=== PATIENT | male | born 1970 | race African-American/Black ===

== ENCOUNTER 2017-07-06 11:35 | Emergency (ER) | payer MEDICAID, SELFPAY ==
[2017-07-06 11:35] VITALS: BP 179/100; PULSE 83; RESP 24; TEMP 36.4; O2SAT 99; BMI 22.1
[2017-07-06 11:51] LABS: Bedside Glucose 80 mg/dL (70-110)
[2017-07-06] MEDS: Dextrose 50%-Water 25 GM/50 ML DISP.SYRIN IV (12:24)
[2017-07-06] MEDS: Ondansetron 4 MG/2 ML Vial IV (12:24)
[2017-07-06 12:38] LABS: Absolute Lymphocyte Count 0.69 X10^3/ul (0.83-4.51); Absolute Neutrophil Count 6.3 X10^3/uL (2.0-7.7); Basophil# 0.03 X10^3/uL; Basophil% 0.4 % (0-1); Eosinophil# 0.03 X10^3/uL; Eosinophils% 0.4 % (0-5); Hematocrit 42.5 % (40-54); Hemoglobin 13.5 g/dl (13.0-16.5); Lymphocyte # 0.69 X10^3/ul (4.0); Lymphocyte % 9.3 % (19-41); Mean Corp Hgb Conc 31.8 g/gl (32-36); Mean Corpuscular Hgb 22.9 pg (27.0-32.0); Mean Corpuscular Volume 72.2 fL (80-94); Mean Platelet Vol. 10.3 fl (6.2-12.0); Monocyte% 5.4 % (0-10); Neutrophil # 6.26 X10^3/uL (2.7-7.7); Neutrophil % 84.4 % (47-70); Platelet Count 185 K/mm3 (150-450); RBC Distribution Width CV 16.1 % (11.6-14.6); RBC Distribution Width SD 42.1 fl (35.1-43.9); Red Blood Count 5.89 M/mm3 (4.6-6.2); White Blood Count 7.4 K/mm3 (4.4-11.0)
[2017-07-06 12:39] LABS: POSITIVE COUNT NO; POSITIVE DIFFERENTIAL NO; POSITIVE MORPHOLOGY NO
--- NOTE | 2017-07-06 12:44 | ED.DCSUM_ITS ---
- ER Visit Summary Date of Service: 07/06/17 Chief Complaint: Vomiting and syncope History of Present Illness: The patient is a 46 M who states he woke this morning with vomiting. He eventually passed out on the bathroom floor was found by his friend. Friend reportedly gave him some sugar and he is feeling better. He still notes nausea. Blood sugar 87 for EMS. Patient states that he felt fine yesterday. Patient also notes that he feels weak. Physical Examination: Afebrile 179/100 heart rate of 83 respirations are 24 pulse ox is 90% on room air Gen: Well-nourished well-developed patient appears to be shivering patient puts little effort into helping the physical exam. Head: Normocephalic atraumatic Eyes: Perrl EOMI ENT: TMs clear no rhinorrhea moist mucous membranes Neck: Supple no lymphadenopathy no JVD nontender CVS: Regular rate rhythm no murmurs normal S1-S2 Respiratory: No distress clear to auscultation bilaterally chest nontender Abdomen: Soft nontender nondistended normal bowel sounds no masses Back: Nontender Extremity: Nontender no edema Skin: Normal color no rash Neuro: alert orientated ?3 CN II-XII intact normal strength sensation reflexes gait cerebellar Psych: Normal affect normal mood Test Results: [] Emergency Department Course and Treatment: [] Impression: [] This note was generated with [employer] dictation software. It may contain incorrect words, spelling, and punctuation that were not noted in review of the chart prior to signing ED Disposition - Plan for ED Patient: Disposition: Home or Assisted Living Chief Complaint: Nausea/Vomiting Instructions: ED Nausea Vomiting Prescriptions: Ondansetron [Zofran Odt] 4 mg PO Q8H PRN PRN #10 tab PRN Reason: Nausea Referrals: Peter Rosenberg DO [Primary Care Provider] - 3-5 Days if not improving
[2017-07-06 12:56] LABS: ALB/GLOB Ratio 0.8 RATIO (0.9-2.4); AST(SGOT) 30 U/L (15-37); Alanine Aminotransfer ALT/SGPT 24 U/L (12-78); Albumin, Serum 3.5 g/dL (3.4-5.0); Alkaline Phosphatase 119 U/L (45-117); Anion Gap 14 (5-15); BUN 59 mg/dL (7-18); BUN/Creat Ratio 7.9 RATIO (10-20); Calcium,Total 8.6 mg/dL (8.5-10.1); Chloride 102 mmol/L (98-107); Creatinine, Serum 7.46 mg/dL (0.70-1.30); EST Glomerular Filtration Rate 8 mL/min (>60); Est Glom Filt Rate - Afr Amer 10 mL/min (>60); Estimated Creatinine Clearance 13.75 ml/min; Globulin 4.3 g/dL (2.2-4.2); Glucose 75 mg/dL (70-110); Lipase 98 U/L (73-393); Potassium 4.6 mmol/L (3.5-5.1); Protein, Total 7.8 g/dL (6.4-8.2); Sodium Level 141 mmol/L (136-145)
--- NOTE | 2017-07-06 12:57 | ED.RN ---
CREAT 7.[address] BRYANT AWARE
[2017-07-06 13:26] LABS: Bedside Glucose 112 mg/dL (70-110)
[2017-07-06 13:34] VITALS: BP 220/118; PULSE 89; RESP 18; O2SAT 98
[2017-07-06 13:52] VITALS: BP 202/97; PULSE 93; RESP 18; TEMP 36.9
--- NOTE | 2017-07-06 15:01 | ED.RN ---
attempted to call pt's daughter multiple times for ride home. pt calling for ride now.
== END 2017-07-06 15:41 | disposition home or self-care (01) ==
PROVIDERS: Emergency Provider Emergency Medicine; Family Provider Family Medicine; PCP Family Medicine
DX: R55 Syncope and collapse (principal); E11.649 Type 2 diabetes mellitus with hypoglycemia without coma; I12.0 Hypertensive chronic kidney disease with stage 5 chronic kidney disease or end stage renal disease; N18.6 End stage renal disease; E78.00 Pure hypercholesterolemia, unspecified; Z99.2 Dependence on renal dialysis; Z79.4 Long term (current) use of insulin; Z79.899 Other long term (current) drug therapy
CPT/HCPCS: 80053; 82962; 83690; 85025; 96361; 96374; 96375; 99284; J7030; J7040; A4216; J2405

== ENCOUNTER 2017-07-07 09:04 | Emergency (ER) | payer MEDICAID, SELFPAY ==
[2017-07-07 09:06] VITALS: BP 154/94; PULSE 68; RESP 17; TEMP 35.9; O2SAT 98; BMI 20.2
[2017-07-07 09:16] LABS: Bedside Glucose 106 mg/dL (70-110)
--- NOTE | 2017-07-07 10:02 | ED.RN ---
MEAL TRAY ORDERED FOR PT TO INCREASE BLOOD GLUCOSE.
[2017-07-07 10:50] VITALS: PULSE 71; RESP 16
[2017-07-07 10:56] LABS: Bedside Glucose 116 mg/dL (70-110)
--- NOTE | 2017-07-07 10:59 | ED.DCSUM_ITS ---
- ER Visit Summary Date of Service: 07/07/17 Chief Complaint: Low blood sugar History of Present Illness: The patient is a [address] Rosenberg and Dr. Felipe. In the emergency department yesterday for nausea and vomiting. States that those symptoms have resolved. However, he went home last night and went to bed because he was not feeling well. He took 10 units of insulin and did not eat dinner like he usually would. He slept through his appointment for dialysis today. EMS arrival patient's blood sugar was 48. He was given an amp of D50 and he is now back to his baseline. He denies any complaints. Patient reports that he has swelling behind the angle of his right mandible that began quite some time ago. Reports that he has pain in his right mandibular canine that is been present for quite some time as well. He does not have a dentist cc. Physical Examination: Vitals: Stable. Afebrile. Mouth: No trismus. No edema of the floor of the mouth. Pain with percussion of right mandibular canine. This tooth is loose. There is no focal abscess. He is missing all of his premolars and molars and the mandibular area bilaterally. HEENT: He does have an approximately 2 cm enlarged lymph node at the angle of his right mandible. There is no overlying erythema. It is minimally tender. General: A&O x 3. NAD. Cardiovascular exam: Regular rate and rhythm, no murmur, rub or gallop. Respiratory exam: Clear to auscultation bilaterally. No wheezes or stridor. Abdominal exam: Soft, nontender, nondistended, normal bowel sounds. No peritoneal signs. Extremity: No clubbing, cyanosis, or edema. Test Results: Patient had blood work obtained yesterday. This was not repeated. His CBC was marked for segment neutrophils 84 lymphocytes of 9. BMP was marked for BUN of 59 creatinine 7.646. LFTs marked for an alk phos of 119 and globulin of 4.3. Emergency Department Course and Treatment: She ate breakfast here and is resting comfortably. Treatment Plan: Patient was discussed with the dialysis center. He will be sent from here to the dialysis center to have his normal dialysis. He is instructed to keep Keflex following this. Will be placed on Keflex 500 mg p.o. q. after dialysis. Instructed to follow-up Dr. Jones in 1 week if the swollen lymph node has not resolved. I did discuss and the possibility of needing to have a biopsy to make sure that this is not cancer. Return to the emergency department for any worsening symptoms. Disposition: To home in improved and stable condition. Impression:. 1. Hypoglycemia. 2. Insulin-dependent diabetes mellitus. 3. Enlarged lymph node, angle of mandible, on right. This note was generated with [employer] dictation software. It may contain incorrect words, spelling, and punctuation that were not noted in review of the chart prior to signing ED Disposition - Plan for ED Patient: Disposition: Home or Assisted Living Chief Complaint: Hypoglycemia Instructions: ED Cervical Adenitis Abx Tx, ED Diabetes Hypoglycemia Insulin React Prescriptions: Cephalexin [Keflex] 500 mg PO QODAY #10 capsule Referrals: Peter Rosenberg DO [Primary Care Provider] - 1-2 Days if not improving Jenaro Jones MD [STAFF PHYSICIAN] - 1 Week Additional Instructions: Low up with Dr. Jones in 1 week for further evaluation of the swollen lymph node.
[2017-07-07 11:10] VITALS: BP 158/111; PULSE 70; RESP 14; O2SAT 98
--- NOTE | 2017-07-07 11:16 | ED.RN ---
1110-Verbal and written d/c instructions given. All questions answered. Finishing eating prior to leaving ED.
== END 2017-07-07 11:46 | disposition home or self-care (01) ==
PROVIDERS: Emergency Provider Emergency Medicine; Family Provider Family Medicine; PCP Family Medicine
DX: E10.649 Type 1 diabetes mellitus with hypoglycemia without coma (principal); R59.0 Localized enlarged lymph nodes; E78.00 Pure hypercholesterolemia, unspecified; F32.9 Major depressive disorder, single episode, unspecified; I12.0 Hypertensive chronic kidney disease with stage 5 chronic kidney disease or end stage renal disease; N18.6 End stage renal disease; Z99.2 Dependence on renal dialysis; Z79.4 Long term (current) use of insulin; Z79.899 Other long term (current) drug therapy
CPT/HCPCS: 82962; 99284; J7030

== ENCOUNTER 2017-09-18 23:42 | Emergency (ER) | payer MEDICAID, SELFPAY ==
[2017-09-18 23:43] VITALS: BP 157/100; PULSE 81; RESP 18; TEMP 36.4; O2SAT 100; BMI 19.5
--- NOTE | 2017-09-18 23:48 | RAD_ITS ---
STUDY: X-RAY - RIGHT WRIST REASON FOR EXAM: Male, 47 years old. Patient fell. Pain radiating to the arm. TECHNIQUE: 3 view(s) of the wrist were obtained. COMPARISON: None. FINDINGS: There is diffuse demineralization of the osseous structures. Normal radiocarpal articulation. Normal distal radioulnar articulation. There is a sclerotic line in the scaphoid waist but there is no demonstrated definite fracture. Normal carpal articulations. Normal carpometacarpal articulation of the thumb. Normal second through fifth carpometacarpal articulations. Normal visualized metacarpal bones. There are vascular calcifications. RAD/Wrist min 3 Views IMPRESSION: Sclerotic line in the scaphoid waist without demonstrated definite fracture. If symptoms persist, follow-up exams are recommended. Electronically Signed: Ovidio Malcolm MD at 0:19 EDT Tel , Service support ,
--- NOTE | 2017-09-19 00:31 | ED.VISSUMM ---
- ER Visit Summary Date of Service: 09/19/17 Chief Complaint: Wrist injury History of Present Illness: The patient is a 47 M who reportedly fell out at [facility] due to his blood sugar being low. States he bent his right wrist back. He has had pain. Otherwise feeling okay. Physical Examination: Afebrile vital signs are stable tenderness palpation over the medial aspect of the right wrist. There are no breaks in the skin. No malrotation. Her vascular intact distally please see T-sheet for complete details Test Results: X-rays of the wrist did not demonstrate an acute fracture. Emergency Department Course and Treatment: Patient will be placed in a Velcro wrist splint. He will follow-up with his doctor. Will check his blood sugar before. Impression: 1. Right wrist sprain This note was generated with [employer] dictation software. It may contain incorrect words, spelling, and punctuation that were not noted in review of the chart prior to signing ED Disposition - Plan for ED Patient: Disposition: Home or Assisted Living Chief Complaint: Upper Extremity Injury Instructions: ED Sprain Wrist Referrals: Peter Coronado MD [Primary Care Provider] - 10-14 Days if not better
--- NOTE | 2017-09-19 00:36 | ED.DCSUM_ITS ---
- ER Visit Summary Date of Service: 09/19/17 Chief Complaint: Wrist injury History of Present Illness: The patient is a 47 M who reportedly fell out at [facility] due to his blood sugar being low. States he bent his right wrist back. He has had pain. Otherwise feeling okay. Physical Examination: Afebrile vital signs are stable tenderness palpation over the medial aspect of the right wrist. There are no breaks in the skin. No malrotation. Her vascular intact distally please see T-sheet for complete details Test Results: X-rays of the wrist did not demonstrate an acute fracture. Emergency Department Course and Treatment: Patient will be placed in a Velcro wrist splint. He will follow-up with his doctor. Will check his blood sugar before. Impression: 1. Right wrist sprain This note was generated with [employer] dictation software. It may contain incorrect words, spelling, and punctuation that were not noted in review of the chart prior to signing ED Disposition - Plan for ED Patient: Disposition: Home or Assisted Living Chief Complaint: Upper Extremity Injury Instructions: ED Sprain Wrist Referrals: Peter Coronado MD [Primary Care Provider] - 10-14 Days if not better
[2017-09-19 00:51] LABS: Bedside Glucose 138 mg/dL (70-110)
== END 2017-09-19 00:57 | disposition home or self-care (01) ==
LOC: ED 09-19 00:53
PROVIDERS: Emergency Provider Emergency Medicine; Family Provider Family Medicine; PCP Family Medicine
DX: S63.501A Unspecified sprain of right wrist, initial encounter (principal); E10.9 Type 1 diabetes mellitus without complications; I10 Essential (primary) hypertension; E78.00 Pure hypercholesterolemia, unspecified; I73.9 Peripheral vascular disease, unspecified; Z87.891 Personal history of nicotine dependence; Z79.4 Long term (current) use of insulin; Z79.899 Other long term (current) drug therapy; W18.30XA Fall on same level, unspecified, initial encounter; Y93.89 Activity, other specified; Y92.512 Supermarket, store or market as the place of occurrence of the external cause; Y99.8 Other external cause status
CPT/HCPCS: 73110; 82962; 99283

== ENCOUNTER → 2017-09-19 12:36 | Outpatient (CLI) | payer MEDICAID, SELFPAY ==
[2017-09-19 13:29] LABS: Hematocrit 38.9 % (40-54); Hemoglobin 12.4 g/dl (13.0-16.5); Mean Corp Hgb Conc 31.9 g/gl (32-36); Mean Corpuscular Hgb 22.7 pg (27.0-32.0); Mean Corpuscular Volume 71.2 fL (80-94); Mean Platelet Vol. 9.8 fl (6.2-12.0); Platelet Count 122 K/mm3 (150-450); RBC Distribution Width CV 15.4 % (11.6-14.6); Red Blood Count 5.46 M/mm3 (4.6-6.2); White Blood Count 5.3 K/mm3 (4.4-11.0)
[2017-09-19 13:30] LABS: Scan Indicated on CBC? Y/N NO
[2017-09-19 14:06] LABS: Anion Gap 6 (5-15); BUN 17 mg/dL (7-18); BUN/Creat Ratio 3.7 RATIO (10-20); Calcium,Total 7.6 mg/dL (8.5-10.1); Chloride 97 mmol/L (98-107); Creatinine, Serum 4.61 mg/dL (0.70-1.30); EST Glomerular Filtration Rate 15 mL/min (>60); Est Glom Filt Rate - Afr Amer 18 mL/min (>60); Glucose 255 mg/dL (74-106); Potassium 3.7 mmol/L (3.5-5.1); Sodium Level 137 mmol/L (136-145)
== END ==
PROVIDERS: Family Medicine; Family Provider Family Medicine; PCP Family Medicine; Visit Provider Surgery
DX: T82.898A Other specified complication of vascular prosthetic devices, implants and grafts, initial encounter (principal)
CPT/HCPCS: 36415; 80048; 85027

== ENCOUNTER → 2017-09-25 10:32 | Day surgery (SDC) | payer MEDICAID, SELFPAY ==
[2017-09-24 09:03] VITALS: BMI 20.7
--- NOTE | 2017-09-25 12:13 | PCM.OPRPT ---
Problem List (1) Problem with dialysis access Status: Acute Qualifiers: Encounter type: initial encounter Qualified Code(s): T82.898A - Other specified complication of vascular prosthetic devices, implants and grafts, initial encounter Report of Operation Date of Procedure: 09/25/17 Pre-Operative Diagnosis: Problem with dialysis access left forearm radiocephalic arteriovenous fistula with diminished flow Post-Operative Diagnosis: High-grade venous stenosis left proximal fistula and anastomosis and 6 cm more distally. Occlusion left upper arm cephalic vein Surgery/Procedure Performed:: Left upper extremity fistulogram with 5 x 2 conquest angioplasty and 6 x 80 mm lutonix drug coated balloon angioplasty Description of Surgical Findings:: Timeout and informed consent was obtained. 47-year-old gentleman was taken to the special procedures lab. He was placed upon the table. The left extremity sterilely prepped draped. Ultrasound was used to identify the cephalic vein close to the antecubital space. 2% lidocaine was instilled under ultrasound guidance. Under ultrasound guidance micropuncture needle was inserted retrograde with flow. Micropuncture wire inserted. 6 Persian short sheath dilator was inserted. Using 035 angled Glidewire and a 4 Persian glide cath [place] was finally gained to the radial artery distal to the anastomosis. I cannot achieve proximal angulation. There were 2 areas of high-grade venous stenosis. I then performed balloon angioplasty utilizing a 5 x 20 mm conquest balloon. This performed at the anastomosis and within the fistula approximately 6 cm more distally. Follow-up injections demonstrated improvement but far from complete resolution. I then was able to get the guidewire to go to the radial artery proximally. I was able to place a glide catheter and obtained a fistulogram. This demonstrated improvement in the areas of stenosis but lack of resolution. So I then placed a 6 x 80 mm drug-coated balloon. Balloon angioplasty was performed directly at the anastomosis in the very proximal 8 cm of the fistula. Follow-up imaging now demonstrated dramatic improvement. Further images were obtained of the upper arm and central venous outflow. All of this was performed with Isovue contrast. A total of 26 cc was used. The catheter was removed sheath was removed U suture of 4 oh nondisplaced there is a good pulse thrill and bruit at the completion blood loss minimal no apparent complication Images demonstrate a left forearm radiocephalic arteriovenous fistula. There is high-grade venous stenosis over a 1 cm area just at the anastomosis and distally. Then about 6 cm more distal on the fistula is another area of stenosis. Then there is aneurysmal change of the vein. At the antecubital space there is occlusion of the upper arm cephalic vein. Outflow was achieved via median cubital vein over to the basilic vein with good basilic vein and central venous outflow. Subsequent to the angioplasty there is resolution of the proximal fistula venous stenosis. It is of note that the patient received 50 mcg of fentanyl 1 mg of Versed intravenously at the initiation of the procedure Impression Successfully treated left forearm radiocephalic arteriovenous fistula with resolved proximal fistula venous stenosis Anibal Andrews M.D., F.A.C.S. Type of Anesthesia:: Local
== END ==
PROVIDERS: Family Provider Family Medicine; PCP Family Medicine; Visit Provider Surgery
DX: T82.898A Other specified complication of vascular prosthetic devices, implants and grafts, initial encounter (principal); I12.0 Hypertensive chronic kidney disease with stage 5 chronic kidney disease or end stage renal disease; E10.22 Type 1 diabetes mellitus with diabetic chronic kidney disease; N18.6 End stage renal disease; Z99.2 Dependence on renal dialysis; F32.9 Major depressive disorder, single episode, unspecified; E78.2 Mixed hyperlipidemia; D63.1 Anemia in chronic kidney disease; E10.21 Type 1 diabetes mellitus with diabetic nephropathy; E73.9 Lactose intolerance, unspecified; Z87.891 Personal history of nicotine dependence; Z79.4 Long term (current) use of insulin; Z79.899 Other long term (current) drug therapy
CPT/HCPCS: 36902; 76937; 99152; 99153; Q9967; C1725; C1769

== ENCOUNTER 2017-10-24 06:22 | Day surgery (SDC) | payer MEDICAID, SELFPAY ==
[2017-10-24] VITALS (7 sets, daily range): BP systolic 114–183; BP diastolic 84–96; PULSE 63–70; RESP 16–18; TEMP 35.9–36.5; O2SAT 97–99; BMI 19.0
--- NOTE | 2017-10-24 | BON_PTH ---
PATIENT: THOM PASCUAL [place] [facility] [id number] AGE/SX: 47/M ROOM: RE10/24/[address]: Dr. Isaiah Miranda DPM : 1970 BED: DIS: 10/24/2017 SPEC #: [id number] RECD: 10/24/17 09:25 STATUS: BIANKA CHRIS #: [id number] STACIE: 10/24/17 00:[address]: Isaiah Miranda DEPT: SURGICAL PATHOLOGY RECD BY: Wade Ritchie ENTERED: 10/24/17 09:26 SP TYPE: Bone OTHR DR: Dr. Peter Coronado MD Tissues: Bone of foot, NOS Procedures: Decalcification bone/plaque Surgery Specimen Level III HEADER OPERATION: Debridement ulcer including bone, foot PRE-OP DIAGNOSIS: Ulceration right foot, hypertrophic bone TISSUE SUBMITTED: Bone, fifth metatarsal and cuboid, right foot MICROSCOPIC DIAGNOSIS Bone, fifth metatarsal and cuboid, right foot: Pieces of bone and adherent pieces of fibroconnective tissue with reactive changes, negative for acute osteomyelitis. MAURI:doris 10/31/17 MICROSCOPIC DESCRIPTION Slides are reviewed. GROSS DESCRIPTION Received in fixative is one container labeled with the patient's name and designated bone, fifth metatarsal and cuboid, right foot. The specimen consists of multiple pieces of bone measuring in aggregate 6 x 4 x 2 cm. The entire specimen is submitted in five cassettes after decalcification. / MAURI:doris 10/24/17 TC:5 CPT: 68814, 48700
--- NOTE | 2017-10-24 06:30 | EKG12_ITS ---
Test Reason : PRE OP Blood Pressure : / mmHG Vent. Rate : 071 BPM Atrial Rate : 071 BPM P-R Int : 170 ms QRS Dur : 090 ms QT Int : 464 ms P-R-T Axes : 073 035 051 degrees QTc Int : 504 ms Normal sinus rhythm Prominent T wave noted Prolonged QT Abnormal ECG When compared with ECG of 12-APR-2016 05:39, No significant change was found Confirmed by ANDREA MENDEZ, TEODORA ([id number]), supervising film or videotape editor ROMERO AGUIAR ([id number]) on 10/27/2017 3:00:39 PM Referred By: Isaiah Miranda Confirmed By:TEODORA MENDEZ MD
[2017-10-24] MEDS: Ondansetron 4 MG/2 ML Vial ×2 (06:59→07:00)
[2017-10-24 07:00] LABS: Bedside Glucose 66 mg/dL (70-110)
[2017-10-24 07:25] LABS: Bedside Glucose 237 mg/dL (70-110)
--- NOTE | 2017-10-24 07:35 | RAD_ITS ---
STUDY: X-RAY - RIGHT FOOT CLINICAL: Male, 47 years old. Debridement of ulcer TECHNIQUE: Single intraoperative view(s) of the foot. COMPARISON: April 11, 2016 FINDINGS: Intraoperative fluoroscopy utilized for 0 minutes 19 seconds during debridement of wound. Single image demonstrates amputation. There is soft tissue defect. RAD/Foot 2 Views IMPRESSION: Intraoperative fluoroscopy. Electronically Signed: Juan J Haney MD at 11:04 EDT , Service support ,
[2017-10-24] MEDS: Bupivacaine Mpf 0.5% 30 ML VIAL (08:36)
--- NOTE | 2017-10-24 08:51 | PCM.DC.POD ---
Discharge Diet: Light diet - advance as tolerated Discharge Activity: May Not Drive, Use Walker Weight Bearing Status: No weight bearing - No weightbearing right foot Keep extremity elevated above heart level: Right Leg - Keep right foot elevated for at least 50 minutes of every hour Call your doctor if you observe: Fever of 101 or Higher, Shortness of breath, Chest pain, Increased palpitations (irregular heartbeat), Calf discomfort, Uncontrolled pain Cleanse incision/area with: Do not get Incision Wet, Keep Dressing Clean & Dry Allergies/Adverse Reactions: Allergies calcium [From PhosLo] Allergy (Verified 10/20/17 14:11) Hives Medications to take at Discharge Hydralazine HCl 100 mg PO TID 07/06/17 Insulin Detemir [Levemir (BKC)] 10 units SC QHS 07/06/17 Insulin Detemir [Levemir (BKC)] 13 units SC DAILY 07/06/17 Latanoprost 0.005% [Xalatan Opthalmic] 1 drp EACH EYE QHS 07/06/17 Lisinopril [Zestril] 40 mg PO DAILY 07/06/17 Metoprolol Tartrate 25 mg PO QHS 07/06/17 Metoprolol Tartrate 37.5 mg PO DAILY 07/06/17 Ondansetron [Zofran Odt] 4 mg PO Q8H PRN PRN #10 tab 07/06/17 Sevelamer Carbonate [Renvela] 1,600 mg PO TIDCM 07/06/17 Simvastatin 40 mg PO QHS 07/06/17 Timolol [Betimol] 1 drp OP BID 07/06/17 Hydrocodone/Acetaminophen [Vicodin 5-300 mg Tablet] 1 tab PO Q6H PRN PRN 4 Days #20 tab 10/24/17 The following prescriptions were given: Hydrocodone/Acetaminophen [Vicodin 5-300 mg Tablet] 1 tab PO Q6H PRN PRN 4 Days #20 tab PRN Reason: Pain Primary Care Physician: Peter Coronado MD [Primary Care Provider] - Please Follow Up With: Isaiah Miranda DPM When: within 1 week, sooner if needed
--- NOTE | 2017-10-24 08:52 | PCM.OPRPT ---
Report of Operation Date of Procedure: 10/24/17 - Surgeon: Isaiah Miranda DPM Pre-Operative Diagnosis: Ulceration right foot with hypertrophic bone Post-Operative Diagnosis: Same Surgery/Procedure Performed:: Ulcer debridement with debridement of hypertrophic bone right foot Type of Anesthesia:: Local MAC Specimen's removed: Bone from right foot sent to pathology Estimated Blood Loss (mL): 5mL Description of Procedure: Indications: This is a 47 year old gentleman with history of diabetes, peripheral neuropathy, ESRD on dialysis, previous TMA right foot now with chroinc on and off ulceration to the distal lateral foot. Ulcer has healed with offload casting, but recurrent. There is hypertrophic bone to the site, causing a prominence, resulting in increased pressure and ultimate wound break down. Due to the nature of this, we discussed debridement of the ulceration with debridement of the underlying bone. This was discussed with the patient in great detail, reviewed the rationale of this, as well as the possible risks, possible benefits, goals, expectations, and typical healing and post op recovery process. He elected to proceed forward with this. The consent forms were reviewed with him, and he freely signed them. No guarantees were given or implied. Operative Procedure: The patient was brought back to the operating room and was placed on the operating room table in the supine position. He was carefully secured to the operating room table with a safety belt around his waist. A timeout was performed and the patient was identified and the surgical plan was confirmed. The patient received 2 grams of IV ancef for antibiotic prophylaxis. The patient received MAC anesthesia per the anesthesia team. The skin was cleansed with 70% isopropyl alcohol and a local block around the debridement site was performed with 10mL of 0.5% Bupivacaine plain. A well padded pneumatic tourniquet was applied around the right ankle. The right foot was scrubbed, prepped, draped in the usual aseptic fashion. The right foot was elevated for 3 minutes and the right ankle pneumatic tourniquet was inflated to 250mmHg. Again ulceration to the distal lateral foot was noted to be completely covered with hypertrophic tissue and nonviable tissue. The ulceration was debrided using a 15 blade, the underlying hypertrophic prominent bone was debrided using a combination of a bone cutting rongeur as well as a powered sagittal saw. The ulcer measured 0.4cm x 0.4cm and was debrided down to bone as noted above. The remain tissues were healthy, granular, and viable. There was no purulence, no maloder, and no evidence of infection. The resected bone was sent to pathology for further evaluation. Proper resection of bone was confirmed with intra operative fluoroscopy. The site was flushed out with copious amounts of normal saline solution. The tissues were reappoximated using 3-0 Vicryl (subcuaneous) and 3-0 Prolene (skin). A dressing was applied which consisted of betadine soaked adaptic, 4x4 gauze, abd pads, kerlix, and a well padded below the knee splint. The patient tolerated the above procedure well and the anesthesia well with no complications. Post operative orders were placed. Post operative foot xrays were obtained and reviewed which confirmed resection of the hypertrophic bone. Post operative instructions were reviewed. No weightbearing right foot, keep right foot elevated for at least 50 minutes of every hour. Keep the dressing/splint clean, dry and intact. He was dispensed a prescription for Vicodin 5mg/325mg tab - 1 tab PO q 6 hours prn pain. This was okayed by the pharmacist, was checked due to patient being on dialysis. The patient was discharged home, and he will be going right to dialysis at his normal dialysis center here in [facility]. Patient to follow up with me in 1 week, sooner if needed. Grafts/Implants Used: None - Complications None
--- NOTE | 2017-10-24 09:00 | RAD_ITS ---
STUDY: X-RAY - RIGHT FOOT CLINICAL: Male, 47 years old. Status post debridement. TECHNIQUE: 4 view(s) of the foot. COMPARISON: April 11, 2016. FINDINGS: There is demineralization of the rear and midfoot bones. There is amputation of the foot at the proximal metatarsals. There is indistinctness of the residual fifth metatarsal stump. There is soft tissue swelling and injury distally. There is casting material. RAD/Foot min 3 Views IMPRESSION: Status post amputation. Diffuse demineralization. Indistinctness of the fifth metatarsal stump with possible destruction and osteomyelitis. Soft tissue injury Electronically Signed: Juan J Haney MD at 11:06 EDT , Service support ,
[2017-10-24 09:25] LABS: Bedside Glucose 181 mg/dL (70-110)
== END 2017-10-24 09:59 | disposition home or self-care (01) ==
LOC: SDC 06:23 → AC 06:24
PROVIDERS: Family Provider Family Medicine; PCP Family Medicine; Visit Provider Podiatrist
PROC: (CPT 11044; principal; 2017-10-24 07:15)
DX: E11.621 Type 2 diabetes mellitus with foot ulcer (principal); L97.516 Non-pressure chronic ulcer of other part of right foot with bone involvement without evidence of necrosis; I73.9 Peripheral vascular disease, unspecified; I12.0 Hypertensive chronic kidney disease with stage 5 chronic kidney disease or end stage renal disease; E11.22 Type 2 diabetes mellitus with diabetic chronic kidney disease; N18.6 End stage renal disease; E11.40 Type 2 diabetes mellitus with diabetic neuropathy, unspecified; F41.9 Anxiety disorder, unspecified; F32.9 Major depressive disorder, single episode, unspecified; E78.5 Hyperlipidemia, unspecified; D50.9 Iron deficiency anemia, unspecified; Z87.891 Personal history of nicotine dependence; Z89.421 Acquired absence of other right toe(s); Z99.2 Dependence on renal dialysis; Z79.4 Long term (current) use of insulin; Z79.899 Other long term (current) drug therapy
CPT/HCPCS: 11044; 73620; 73630; 76000; 82962; 88304; 88311; 93005; J7120; J2405; J7799

== ENCOUNTER → 2018-01-13 18:29 | Outpatient (CLI) | payer MEDICAID, SELFPAY | PROVIDERS: Family Provider Family Medicine; PCP Family Medicine; Visit Provider Podiatrist | DX: L97.519 Non-pressure chronic ulcer of other part of right foot with unspecified severity (principal) | CPT/HCPCS: 87070; 87077; 87186; 87205 ==

== ENCOUNTER → 2018-04-07 06:43 | Outpatient (CLI) | payer MEDICARE, MEDICAID, SELFPAY ==
--- NOTE | 2018-04-07 06:49 | CT_ITS ---
STUDY: CT RIGHT FOOT REASON FOR EXAM: Right foot ulcer, partial foot amputation. TECHNIQUE: Thin section transaxial imaging of the foot was obtained, with sagittal and coronal reconstructed images. Individualized dose optimization techniques were used for this CT. COMPARISON: Radiographs 10/24/2017. FINDINGS: There is osteopenia. There is osseous destruction of the plantar aspect of the cuboid (sagittal reconstructions 15-18). Normal talus, calcaneus, navicular and cuneiforms. Normal visualized tibiotalar, subtalar, talonavicular, calcaneocuboid, and tarsal articulations. There is amputation at the bases of the metatarsals. There is soft tissue swelling, especially at the plantar aspect of the cuboid. There is vascular calcification. CT/Extremity Lower without Contra IMPRESSION: Osseous destruction of the plantar aspect of the cuboid suggestive of osteomyelitis with adjacent soft tissue swelling at the plantar aspect of the midfoot. Electronically Signed: Michael Kelley MD at 8:22 EDT Tel , Service support ,
== END ==
PROVIDERS: Family Provider Family Medicine; PCP Family Medicine; Referring Provider Podiatrist; Visit Provider Podiatrist
DX: L97.519 Non-pressure chronic ulcer of other part of right foot with unspecified severity (principal); M21.961 Unspecified acquired deformity of right lower leg
CPT/HCPCS: 73700

== ENCOUNTER 2018-05-12 06:01 | Day surgery (SDC) | payer MEDICARE, MEDICAID, SELFPAY ==
[2018-05-12 06:37] VITALS: BP 158/92; PULSE 72; RESP 14; TEMP 36.6; O2SAT 98; BMI 19.1
[2018-05-12 06:50] LABS: Bedside Glucose 118 mg/dL (70-110)
--- NOTE | 2018-05-12 07:30 | RAD_ITS ---
STUDY: X-RAY - RIGHT FOOT CLINICAL: Male, 47 years old. Documentation of fluoroscopic radiation used during orthopedic procedure. TECHNIQUE: 2 view(s) of the foot. COMPARISON: Preoperative radiographs of the right foot dated October 24, 2017. FINDINGS: Total exposure time: 0.14 seconds. Longest single exposure: 0.02 seconds Total DAP (cGy*cm2): 1.5591 Total Air Kerma (mGy): 0.0928 The patient apparently has had amputations of the metatarsals. Please see operative report for additional details. RAD/Foot 2 Views IMPRESSION: Documentation of fluoroscopic radiation use during procedure. Electronically Signed: Shahrzad Caal MD at 11:40 EST , Service support ,
--- NOTE | 2018-05-12 07:30 | BON_PTH ---
PATIENT: THOM PASCUAL LOC: [facility] [place] U#:[id number] AGE/SX: 47/M ROOM: RE05/12/[address]: Dr. Isaiah Miranda DPM : 1970 BED: DIS: 05/12/2018 SPEC #: [id number] RECD: 05/12/18 10:42 STATUS: BIANKA CHRIS #: [id number] STACIE: 05/12/18 07:[address]: Isaiah Miranda DEPT: SURGICAL PATHOLOGY RECD BY: Zhen Simpson ENTERED: 05/12/18 11:56 SP TYPE: Bone OTHR DR: Dr. Peter Coronado MD Tissues: Bone of foot, NOS Procedures: Decalcification bone/plaque Surgery Specimen Level III HEADER OPERATION: Resection of bone, foot PRE-OP DIAGNOSIS: Prominent bone, plantar foot, deformed bone TISSUE SUBMITTED: Bone right foot MICROSCOPIC DIAGNOSIS Bone right foot, resection: Pieces of bone with adherent pieces of dense fibroconnective tissue with reactive changes. MAURI:doris 05/15/18 MICROSCOPIC DESCRIPTION Slides are reviewed. GROSS DESCRIPTION Received in fixative is one container labeled with the patient's name and designated bone right foot. The specimen consists of multiple variable sized fragments of bone that in aggregate measure 5 x 3 x 0.3 cm. The entire specimen is submitted in two cassettes after decalcification. / MAURI:doris 05/12/18 TC:5 CPT: 00722, 21034
[2018-05-12] MEDS: Cefazolin 2 GM in 0.9% Normal Saline 100 ML IV (07:39)
[2018-05-12] MEDS: Bupivacaine Mpf 0.5% 30 ML VIAL (08:56)
--- NOTE | 2018-05-12 09:21 | DCINST_ITS ---
Discharge Diet: Light diet - advance as tolerated Discharge Activity: May Not Drive Weight Bearing Status: No weight bearing - Strict nonweightbearing right foot at all times Keep extremity elevated above heart level: Right Leg - Keep right foot elevated with pillows Call your doctor if your incision/area has: Continuous Slow Oozing, Sudden Increased Bleeding, Increased Pain/ Swelling, Foul Smelling Discharge Call your doctor if you observe: Fever of 101 or Higher, Coldness, Increased Pain, Shortness of breath, Chest pain, Increased palpitations (irregular heartbeat), Calf discomfort, Uncontrolled pain Cleanse incision/area with: Do not get Incision Wet, Keep Dressing Clean & Dry Allergies/Adverse Reactions: Allergies calcium [From PhosLo] Allergy (Verified 10/20/17 14:11) Hives Medications to take at Discharge Hydralazine HCl 100 mg PO TID 07/06/17 Insulin Detemir [Levemir (BKC)] 10 units SC QHS 07/06/17 Insulin Detemir [Levemir (BKC)] 13 units SC DAILY 07/06/17 Latanoprost 0.005% [Xalatan Opthalmic] 1 drp EACH EYE QHS 07/06/17 Lisinopril [Zestril] 40 mg PO DAILY 07/06/17 Metoprolol Tartrate 25 mg PO QHS 07/06/17 Metoprolol Tartrate 37.5 mg PO DAILY 07/06/17 Sevelamer Carbonate [Renvela] 1,600 mg PO TIDCM 07/06/17 Simvastatin 40 mg PO QHS 07/06/17 Timolol [Betimol] 1 drp OP BID 07/06/17 Cephalexin [Keflex] 500 mg PO X1 #7 cap 05/12/18 The following prescriptions were given: Cephalexin [Keflex] 500 mg PO X1 #7 cap Primary Care Physician: Peetr Coronado MD [Primary Care Provider] - Test Results: Test results from this visit will be discussed in further detail at your follow- up appointment, if applicable. Please Follow Up With: Isaiah Miranda DPM When: within 1 week, sooner if needed
[2018-05-12 09:22] VITALS: BP 150/90; BP 158/92; PULSE 72; RESP 16; TEMP 36.2; O2SAT 93
--- NOTE | 2018-05-12 09:23 | OP.PCM_ITS ---
Report of Operation Date of Procedure: 05/12/18 Pre-Operative Diagnosis: Chronic recurrent ulceration plantar right foot. Exostosis/bone prominence plantar right foot. 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 Bennett Type of Anesthesia:: General Specimen's removed: Resected bone from right foot sent to pathology Estimated Blood Loss (mL): 5mL Description of Procedure: Indications: This is a 47 year old gentleman with history of diabetes, peripheral neuropathy, ESRD on dialysis, previous TMA right foot now with chronic on and off ulceration to the plantar foot. Ulcer has healed with offload casting. There is prominent bone to the site resulting in increased pressure and ultimate wound break down. Due to the nature of this, we discussed resection of the underlying prominent bone. This was discussed with the patient in great detail, reviewed the rationale of this, as well as the possible risks, possible benefits, goals, expectations, and typical healing and post op recovery process. He elected to proceed forward with this. The consent forms were reviewed with him, and he freely signed them. No guarantees were given or implied. Operative Procedure: The patient was brought back to the operating room and was placed on the operating room table in the supine position. He was carefully secured to the operating room table with a safety belt around his waist. A timeout was performed and the patient was identified and the surgical plan was confirmed. The patient received 2 grams of IV ancef for antibiotic prophylaxis. The patient received general anesthesia per the anesthesia team. A well padded pneumatic tourniquet was applied around the right ankle. The right foot was scrubbed, prepped, draped in the usual aseptic fashion. The right foot was elevated for 3 minutes and the right ankle pneumatic tourniquet was inflated to 250mmHg. An incision was made to the lateral foot using a 15 scalpel blade at the level of the prominent bone. Careful disection was completed down to the prominent bone. The underlying hypertrophic prominent bone was debrided using a combination of a bone cutting rongeur as well as a powered sagittal saw. The excised bone was sent to pathology. The bone was hard, white, viable with no evidence of infection. The remain tissues were healthy, granular, and viable. There was no purulence, no maloder, and no evidence of infection. Proper resection of bone was confirmed via palpation and with intra operative fluoroscopy. The plantar aspect of the foot was smooth with no abrnomal prominences. The site was flushed out with copious amounts of normal saline solution. The tissues were reapproximated using 3-0 Vicryl (subcutaneous) and 3-0 Nylon (skin). A dressing was applied which consisted of betadine soaked adaptic, 4x4 gauze, kerlix, webril, [place] bandage and a well padded below the knee fiberglass cast. The patient tolerated the above procedure well and the anesthesia well with no complications. Post operative orders were placed. Post operative foot xrays were ordered. Post operative instructions were reviewed. No weightbearing right foot, keep right foot elevated for at least 50 minutes of every hour. Keep the dressing/splint clean, dry and intact. He was dispensed a prescription for Keflex 500mg after dialysis was prescribed to help prevent infection as he is at high risk due to diabetes and neuropathy. The patient was discharged home. Patient to follow up with me in 1 week, sooner if needed. - Complications None
[2018-05-12 09:30] VITALS: BP 158/92; BP 176/102; PULSE 71; RESP 16; O2SAT 93
[2018-05-12 09:45] VITALS: BP 158/92; BP 195/107; PULSE 73; RESP 16; O2SAT 98
[2018-05-12 10:00] VITALS: BP 158/92; BP 199/111; PULSE 73; RESP 16; TEMP 36.1; O2SAT 98
[2018-05-12 10:04] LABS: Hemoglobin A1c 6.4 % (4.2-6.3)
[2018-05-12 10:25] VITALS: BP 158/92
== END 2018-05-12 11:02 | disposition home or self-care (01) ==
LOC: SDC 06:01 → AC 06:02
PROVIDERS: Anesthesiology; Family Provider Family Medicine; PCP Family Medicine; Referring Provider Podiatrist; Visit Provider Podiatrist
PROC: (CPT 28122; principal; 2018-05-12 07:15)
DX: E11.621 Type 2 diabetes mellitus with foot ulcer (principal); L97.519 Non-pressure chronic ulcer of other part of right foot with unspecified severity; E11.42 Type 2 diabetes mellitus with diabetic polyneuropathy; I12.0 Hypertensive chronic kidney disease with stage 5 chronic kidney disease or end stage renal disease; E10.22 Type 1 diabetes mellitus with diabetic chronic kidney disease; N18.6 End stage renal disease; Z99.2 Dependence on renal dialysis; E78.5 Hyperlipidemia, unspecified; I73.9 Peripheral vascular disease, unspecified; D50.9 Iron deficiency anemia, unspecified; F32.9 Major depressive disorder, single episode, unspecified; Z89.421 Acquired absence of other right toe(s); Z89.411 Acquired absence of right great toe; Z79.4 Long term (current) use of insulin; Z79.899 Other long term (current) drug therapy; Z87.891 Personal history of nicotine dependence
CPT/HCPCS: 28122; 36415; 73620; 76000; 82962; 83036; 88304; 88305; 88311; J7040; J7120

== ENCOUNTER 2018-10-18 10:56 | Inpatient (IN) | payer MEDICARE, MEDICAID, SELFPAY ==
[2018-10-18] VITALS (14 sets, daily range): BP systolic 151–249; BP diastolic 75–124; PULSE 86–97; RESP 15–20; TEMP 36.6–37.1; O2SAT 93–100; BMI 20.5; BMI 17.8
[2018-10-18 11:15] LABS: Bedside Glucose 370 mg/dL (70-110)
--- NOTE | 2018-10-18 11:17 | RAD_ITS ---
STUDY: X-RAY CHEST REASON FOR EXAM: Male, 48 years old. Generalized illness started yesterday, cough, sore throat, congestion. TECHNIQUE: PA and lateral chest COMPARISON: 12/27/2015 chest x-ray. CT abdomen and pelvis 04/15/2015. FINDINGS: There is generalized pulmonary hyperlucency and hyperinflation with flattening of hemidiaphragms in a pattern suggesting possible COPD/emphysema. Correlate smoking history. The lungs are otherwise clear. Normal cardiomediastinal silhouette, palmira and pleural margins. No acute osseous or upper abdominal process. RAD/Chest PA and Lateral IMPRESSION: No acute cardiopulmonary process. Electronically Signed: Rafita Onofre MD at 12:21 EDT Tel , Service support ,
--- NOTE | 2018-10-18 11:17 | EKG12_ITS ---
Test Reason : SOB Blood Pressure : / mmHG Vent. Rate : 086 BPM Atrial Rate : 086 BPM P-R Int : 172 ms QRS Dur : 080 ms QT Int : 436 ms P-R-T Axes : 081 067 062 degrees QTc Int : 521 ms Normal sinus rhythm Minimal voltage criteria for LVH, may be normal variant Septal infarct , age undetermined Prolonged QT Abnormal ECG Confirmed by KAILA MENDEZ, PRAVEENA ([id number]), clinical editor ALISON RHODES ([id number]) on 10/21/2018 1:45:50 PM Referred By: CHANDA Confirmed By:PRAVEENA BRIGHT MD
--- NOTE | 2018-10-18 11:18 | ED.VISSUMM ---
- ER Visit Summary Date of Service: 10/18/18 Chief Complaint: Feels unwell History of Present Illness: The patient is a 48 M with history of type 1 diabetes and end-stage renal disease on hemodialysis who presents because he does not feel well since yesterday. Patient states he ate dinner last night but did not take his insulin. After dinner he began having a cough, shaking and vomiting. He vomits anytime he tries to drink water or eat anything. He has had sweats, abdominal pain and generalized weakness. No known fever, chest pain, shortness of breath. Patient is Friday hemodialysis. He has not missed any dialysis. He does not remember if he took any of his insulin today. Patient gets a cast put on his right lower extremity weekly by Dr. Miranda while he is waiting for a brace for his partial foot amputation. He had history of infection in that foot but states the wound has since healed up. Physical Examination: Vital signs: afebrile, hemodynamically stable, no hypoxia on room air General: well nourished, well developed, in no distress, shaky Skin: warm, moist, no rash, no pallor HEENT: normocephalic and atraumatic; PERRL, EOMI, moist mucous membranes Cardiovascular: regular rate and rhythm without murmurs, no peripheral edema, 2+ pulses and radial pulses in left lower extremity Respiratory: No increased work of breathing, lungs are clear to auscultation bilaterally, no rales, rhonchi or wheezing Abdominal: Abdomen is soft, diffusely tender with normoactive bowel sounds, no guarding or rebound, no masses MSK: Moves all extremities, no deformities, normal strength, right lower extremity has cast below the knee Neuro: Awake and alert, oriented ?4. No facial droop, sensation and motor function intact and symmetric Test Results: Abnormal Lab Results 10/18/18 10/18/18 10/18/18 11:08 11:35 11:35 WBC 4.8 RBC 5.46 Hgb 12.4 L Hct 37.9 L MCV 69.4 L MCH 22.7 L MCHC 32.7 RDW 15.4 H RDW Differential 39.3 Plt Count 117 L MPV 10.3 Immature Gran % (Auto) 0.200 Neut % (Auto) 83.1 H Lymph % (Auto) 9.8 L [place] % (Auto) 6.7 Eos % (Auto) 0.0 Baso % (Auto) 0.2 Absolute Neuts (auto) 4.0 Absolute Lymphs (auto) 0.47 L Total Counted Not Reportable APTT Specimen Type Sample Site VBG pH VBG pO2 VBG O2 Sat (Calc) VBG O2 Content VBG Base Excess POC Mix VBG pCO2 Pt Tmp O2 Delivery Device Blood Gas Notified Whom Blood Gas Notified Time Sodium 139 Potassium 3.8 Chloride 97 L Carbon Dioxide 29.0 Anion Gap 13 BUN 60 H Creatinine 9.47 H* Estim Creat Clear Calc 9.58 Est GFR (MDRD) Af Amer 8 L Est GFR (MDRD) Non-Af 6 L BUN/Creatinine Ratio 6.3 L Glucose 349 H Lactic Acid Calcium 8.7 Phosphorus 3.2 Magnesium 3.2 H Total Bilirubin Direct Bilirubin AST ALT Alkaline Phosphatase Troponin I 1.840 H* Total Protein Albumin Globulin Acetone Level POC Glucose 370 H 10/18/18 10/18/18 10/18/18 11:35 11:35 11:35 WBC RBC Hgb Hct MCV MCH MCHC RDW RDW Differential Plt Count MPV Immature Gran % (Auto) Neut % (Auto) Lymph % (Auto) [place] % (Auto) Eos % (Auto) Baso % (Auto) Absolute Neuts (auto) Absolute Lymphs (auto) Total Counted APTT Specimen Type Sample Site VBG pH VBG pO2 VBG O2 Sat (Calc) VBG O2 Content VBG Base Excess POC Mix VBG pCO2 Pt Tmp O2 Delivery Device Blood Gas Notified Whom Blood Gas Notified Time Sodium Potassium Chloride Carbon Dioxide Anion Gap BUN Creatinine Estim Creat Clear Calc Est GFR (MDRD) Af Amer Est GFR (MDRD) Non-Af BUN/Creatinine Ratio Glucose Lactic Acid 3.8 H Calcium Phosphorus Magnesium Total Bilirubin 0.60 Direct Bilirubin 0.15 AST 25 ALT 20 Alkaline Phosphatase 132 H Troponin I Total Protein 8.6 H Albumin 4.4 Globulin 4.2 Acetone Level NEGATIVE POC Glucose 10/18/18 10/18/18 11:35 11:40 WBC RBC Hgb Hct MCV MCH MCHC RDW RDW Differential Plt Count MPV Immature Gran % (Auto) Neut % (Auto) Lymph % (Auto) [place] % (Auto) Eos % (Auto) Baso % (Auto) Absolute Neuts (auto) Absolute Lymphs (auto) Total Counted APTT 30.3 Specimen Type BLAKE Sample Site OTHER VBG pH 7.52 H VBG pO2 23 L VBG O2 Sat (Calc) 49 L VBG O2 Content 31 VBG Base Excess 7 H POC Mix VBG pCO2 Pt Tmp 37.3 L O2 Delivery Device Room Air Blood Gas Notified Whom ED Blood Gas Notified Time 1139 Sodium Potassium Chloride Carbon Dioxide Anion Gap BUN Creatinine Estim Creat Clear Calc Est GFR (MDRD) Af Amer Est GFR (MDRD) Non-Af BUN/Creatinine Ratio Glucose Lactic Acid Calcium Phosphorus Magnesium Total Bilirubin Direct Bilirubin AST ALT Alkaline Phosphatase Troponin I Total Protein Albumin Globulin Acetone Level POC Glucose Clinical Impression(s) from Imaging Studies Chest X-Ray 10/18/18 11:17 IMPRESSION: No acute cardiopulmonary process. Electronically Signed: Rafita Onofre MD at 12:21 EDT Tel , Service support , Abdomen/Pelvis CT 10/18/18 13:27 IMPRESSION: Prominent aortoiliac and proximal femoral atherosclerosis. Coronary atherosclerosis. Hepatomegaly. No acute abdominopelvic process is otherwise evident. Electronically Signed: Rafita Onofre MD at 14:24 EDT Tel , Service support , Medications Given Heparin Sodium (Porcine) (Heparin Na) 0 unit IV UD PRN; Protocol Heparin Sodium/Dextrose () 25,000 units in 250 mls @ 11 mls/hr IV .[id number] [facility]; Protocol Last Admin: 10/18/18 14:21 Dose: 11 mls/hr Discontinued Medications Aspirin (Aspirin, Baby) 324 mg PO X1 ONE Stop: 10/18/18 13:26 Last Admin: 10/18/18 14:28 Dose: 324 mg Clopidogrel Bisulfate (Plavix) 300 mg PO X1 ONE Stop: 10/18/18 13:26 Last Admin: 10/18/18 14:29 Dose: 300 mg Heparin Sodium (Porcine) (Heparin Na) 5,000 unit IV BOLUS ONE Stop: 10/18/18 13:36 Last Admin: 10/18/18 14:20 Dose: 5,000 unit Sodium Chloride () 500 mls @ 250 mls/hr IV .Q2H ONE Stop: 10/18/18 13:16 Last Admin: 10/18/18 11:42 Dose: 250 mls/hr Insulin Human Lispro (Humalog Kwikpen (Bkc)) 10 unit SC X1 ONE Stop: 10/18/18 12:45 Last Admin: 10/18/18 12:48 Dose: 10 units Labetalol HCl (Trandate) 10 mg IV X1 ONE Stop: 10/18/18 12:41 Last Admin: 10/18/18 12:52 Dose: 10 mg Labetalol HCl (Trandate) 20 mg IV X1 ONE Stop: 10/18/18 13:27 Last Admin: 10/18/18 13:39 Dose: 20 mg Metoclopramide HCl (Reglan) 10 mg IV X1 ONE Stop: 10/18/18 13:27 Last Admin: 10/18/18 13:39 Dose: 10 mg Morphine Sulfate () 4 mg IV X1 ONE Stop: 10/18/18 11:19 Last Admin: 10/18/18 11:43 Dose: 4 mg Ondansetron HCl (Zofran) 4 mg IV X1 ONE Stop: 10/18/18 11:19 Last Admin: 10/18/18 11:42 Dose: 4 mg Emergency Department Course and Treatment: Patient presents for nausea and vomiting since yesterday and generally feeling unwell. Patient has been unable to take his medications, including his blood pressure medicines. He was hypoglycemic at initial presentation. Work-up was performed for DKA. EKG showed sinus rhythm with peaked T waves in V3 and V4, unchanged from prior EKGs. Chest x-ray showed no acute process, including no fluid overload. Patient had no leukocytosis. Creatinine was elevated, as expected in this end-stage renal patient. Troponin was elevated at 1.8. Patient has no history of elevated troponins with his renal disease. Ketones negative. pH was 7.5, no low bicarb, and no anion gap, thus patient's work-up is not consistent with DKA. He was given gentle fluids and Zofran for symptomatic relief. Patient was given labetalol for his significant hypertension. CT abdomen pelvis showed no acute findings. Patient was discussed with Dr. Mcghee because of the elevated troponin, and there was concern that patient may be having an anginal equivalent with his vomiting and nausea since no alternative was noted on his work-up. Dr. Mcghee recommended patient be started on Plavix, heparin and aspirin and admitted for further chest pain work-up. Patient was discussed with Dr. Gant and admitted for further management. Patient did have return of his nausea and was given Reglan for additional symptomatic control. Patient received subcu insulin for his hyperglycemia. Critical care time of 35 minutes for initial evaluation and coordination of care, reevaluations, interpretation of labs, EKG, blood gas, consultation with specialist, discussion with hospitalist, and documentation. Treatment Plan: [] Disposition: [] Impression: Elevated troponin, anginal equivalent, uncontrolled hypertension, end-stage renal disease on hemodialysis, hyperglycemia This note was generated with [employer] dictation software. It may contain incorrect words, spelling, and punctuation that were not noted in review of the chart prior to signing ED Disposition - Plan for ED Patient: Disposition: Acute Care Hospital [facility]
--- NOTE | 2018-10-18 11:21 | ED.DCSUM_ITS ---
- ER Visit Summary Date of Service: 10/18/18 Chief Complaint: Feels unwell History of Present Illness: The patient is a 48 M with history of type 1 diabetes and end-stage renal disease on hemodialysis who presents because he does not feel well since yesterday. Patient states he ate dinner last night but did not take his insulin. After dinner he began having a cough, shaking and vomiting. He vomits anytime he tries to drink water or eat anything. He has had sweats, abdominal pain and generalized weakness. No known fever, chest pain, shortness of breath. Patient is Friday hemodialysis. He has not missed any dialysis. He does not remember if he took any of his insulin today. Patient gets a cast put on his right lower extremity weekly by Dr. Miranda while he is waiting for a brace for his partial foot amputation. He had history of infection in that foot but states the wound has since healed up. Physical Examination: Vital signs: afebrile, hemodynamically stable, no hypoxia on room air General: well nourished, well developed, in no distress, shaky Skin: warm, moist, no rash, no pallor HEENT: normocephalic and atraumatic; PERRL, EOMI, moist mucous membranes Cardiovascular: regular rate and rhythm without murmurs, no peripheral edema, 2+ pulses and radial pulses in left lower extremity Respiratory: No increased work of breathing, lungs are clear to auscultation bilaterally, no rales, rhonchi or wheezing Abdominal: Abdomen is soft, diffusely tender with normoactive bowel sounds, no guarding or rebound, no masses MSK: Moves all extremities, no deformities, normal strength, right lower extremity has cast below the knee Neuro: Awake and alert, oriented ?4. No facial droop, sensation and motor function intact and symmetric Test Results: Abnormal Lab Results 10/18/18 10/18/18 10/18/18 11:08 11:35 11:35 WBC 4.8 RBC 5.46 Hgb 12.4 L Hct 37.9 L MCV 69.4 L MCH 22.7 L MCHC 32.7 RDW 15.4 H RDW Differential 39.3 Plt Count 117 L MPV 10.3 Immature Gran % (Auto) 0.200 Neut % (Auto) 83.1 H Lymph % (Auto) 9.8 L [place] % (Auto) 6.7 Eos % (Auto) 0.0 Baso % (Auto) 0.2 Absolute Neuts (auto) 4.0 Absolute Lymphs (auto) 0.47 L Total Counted Not Reportable APTT Specimen Type Sample Site VBG pH VBG pO2 VBG O2 Sat (Calc) VBG O2 Content VBG Base Excess POC Mix VBG pCO2 Pt Tmp O2 Delivery Device Blood Gas Notified Whom Blood Gas Notified Time Sodium 139 Potassium 3.8 Chloride 97 L Carbon Dioxide 29.0 Anion Gap 13 BUN 60 H Creatinine 9.47 H* Estim Creat Clear Calc 9.58 Est GFR (MDRD) Af Amer 8 L Est GFR (MDRD) Non-Af 6 L BUN/Creatinine Ratio 6.3 L Glucose 349 H Lactic Acid Calcium 8.7 Phosphorus 3.2 Magnesium 3.2 H Total Bilirubin Direct Bilirubin AST ALT Alkaline Phosphatase Troponin I 1.840 H* Total Protein Albumin Globulin Acetone Level POC Glucose 370 H 10/18/18 10/18/18 10/18/18 11:35 11:35 11:35 WBC RBC Hgb Hct MCV MCH MCHC RDW RDW Differential Plt Count MPV Immature Gran % (Auto) Neut % (Auto) Lymph % (Auto) [place] % (Auto) Eos % (Auto) Baso % (Auto) Absolute Neuts (auto) Absolute Lymphs (auto) Total Counted APTT Specimen Type Sample Site VBG pH VBG pO2 VBG O2 Sat (Calc) VBG O2 Content VBG Base Excess POC Mix VBG pCO2 Pt Tmp O2 Delivery Device Blood Gas Notified Whom Blood Gas Notified Time Sodium Potassium Chloride Carbon Dioxide Anion Gap BUN Creatinine Estim Creat Clear Calc Est GFR (MDRD) Af Amer Est GFR (MDRD) Non-Af BUN/Creatinine Ratio Glucose Lactic Acid 3.8 H Calcium Phosphorus Magnesium Total Bilirubin 0.60 Direct Bilirubin 0.15 AST 25 ALT 20 Alkaline Phosphatase 132 H Troponin I Total Protein 8.6 H Albumin 4.4 Globulin 4.2 Acetone Level NEGATIVE POC Glucose 10/18/18 10/18/18 11:35 11:40 WBC RBC Hgb Hct MCV MCH MCHC RDW RDW Differential Plt Count MPV Immature Gran % (Auto) Neut % (Auto) Lymph % (Auto) [place] % (Auto) Eos % (Auto) Baso % (Auto) Absolute Neuts (auto) Absolute Lymphs (auto) Total Counted APTT 30.3 Specimen Type BLAKE Sample Site OTHER VBG pH 7.52 H VBG pO2 23 L VBG O2 Sat (Calc) 49 L VBG O2 Content 31 VBG Base Excess 7 H POC Mix VBG pCO2 Pt Tmp 37.3 L O2 Delivery Device Room Air Blood Gas Notified Whom ED Blood Gas Notified Time 1139 Sodium Potassium Chloride Carbon Dioxide Anion Gap BUN Creatinine Estim Creat Clear Calc Est GFR (MDRD) Af Amer Est GFR (MDRD) Non-Af BUN/Creatinine Ratio Glucose Lactic Acid Calcium Phosphorus Magnesium Total Bilirubin Direct Bilirubin AST ALT Alkaline Phosphatase Troponin I Total Protein Albumin Globulin Acetone Level POC Glucose Clinical Impression(s) from Imaging Studies Chest X-Ray 10/18/18 11:17 IMPRESSION: No acute cardiopulmonary process. Electronically Signed: Rafita Onofre MD at 12:21 EDT Tel , Service support , Abdomen/Pelvis CT 10/18/18 13:27 IMPRESSION: Prominent aortoiliac and proximal femoral atherosclerosis. Coronary atherosclerosis. Hepatomegaly. No acute abdominopelvic process is otherwise evident. Electronically Signed: Rafita Onofre MD at 14:24 EDT Tel , Service support , Medications Given Heparin Sodium (Porcine) (Heparin Na) 0 unit IV UD PRN; Protocol Heparin Sodium/Dextrose () 25,000 units in 250 mls @ 11 mls/hr IV .[id number] [facility]; Protocol Last Admin: 10/18/18 14:21 Dose: 11 mls/hr Discontinued Medications Aspirin (Aspirin, Baby) 324 mg PO X1 ONE Stop: 10/18/18 13:26 Last Admin: 10/18/18 14:28 Dose: 324 mg Clopidogrel Bisulfate (Plavix) 300 mg PO X1 ONE Stop: 10/18/18 13:26 Last Admin: 10/18/18 14:29 Dose: 300 mg Heparin Sodium (Porcine) (Heparin Na) 5,000 unit IV BOLUS ONE Stop: 10/18/18 13:36 Last Admin: 10/18/18 14:20 Dose: 5,000 unit Sodium Chloride () 500 mls @ 250 mls/hr IV .Q2H ONE Stop: 10/18/18 13:16 Last Admin: 10/18/18 11:42 Dose: 250 mls/hr Insulin Human Lispro (Humalog Kwikpen (Bkc)) 10 unit SC X1 ONE Stop: 10/18/18 12:45 Last Admin: 10/18/18 12:48 Dose: 10 units Labetalol HCl (Trandate) 10 mg IV X1 ONE Stop: 10/18/18 12:41 Last Admin: 10/18/18 12:52 Dose: 10 mg Labetalol HCl (Trandate) 20 mg IV X1 ONE Stop: 10/18/18 13:27 Last Admin: 10/18/18 13:39 Dose: 20 mg Metoclopramide HCl (Reglan) 10 mg IV X1 ONE Stop: 10/18/18 13:27 Last Admin: 10/18/18 13:39 Dose: 10 mg Morphine Sulfate () 4 mg IV X1 ONE Stop: 10/18/18 11:19 Last Admin: 10/18/18 11:43 Dose: 4 mg Ondansetron HCl (Zofran) 4 mg IV X1 ONE Stop: 10/18/18 11:19 Last Admin: 10/18/18 11:42 Dose: 4 mg Emergency Department Course and Treatment: Patient presents for nausea and vomiting since yesterday and generally feeling unwell. Patient has been unable to take his medications, including his blood pressure medicines. He was hypoglycemic at initial presentation. Work-up was performed for DKA. EKG showed sinus rhythm with peaked T waves in V3 and V4, unchanged from prior EKGs. Chest x-ray showed no acute process, including no fluid overload. Patient had no leukocytosis. Creatinine was elevated, as expected in this end-stage renal patient. Troponin was elevated at 1.8. Patient has no history of elevated troponins with his renal disease. Ketones negative. pH was 7.5, no low bicarb, and no anion gap, thus patient's work-up is not consistent with DKA. He was given gentle fluids and Zofran for symptomatic relief. Patient was given labetalol for his significant hypertension. CT abdomen pelvis showed no acute findings. Patient was discussed with Dr. Mcghee because of the elevated trop onin, and there was concern that patient may be having an anginal equivalent with his vomiting and nausea since no alternative was noted on his work-up. Dr. Mcghee recommended patient be started on Plavix, heparin and aspirin and admitted for further chest pain work-up. Patient was discussed with Dr. Gant and admitted for further management. Patient did have return of his nausea and was given Reglan for additional symptomatic control. Patient received subcu insulin for his hyperglycemia. Critical care time of 35 minutes for initial evaluation and coordination of care, reevaluations, interpretation of labs, EKG, blood gas, consultation with specialist, discussion with hospitalist, and documentation. Treatment Plan: [] Disposition: [] Impression: Elevated troponin, anginal equivalent, uncontrolled hypertension, end-stage renal disease on hemodialysis, hyperglycemia This note was generated with [employer] dictation software. It may contain incorrect words, spelling, and punctuation that were not noted in review of the chart prior to signing ED Disposition - Plan for ED Patient: Disposition: Acute Care Hospital [facility]
[2018-10-18] MEDS: Ondansetron 4 MG/2 ML Vial IV (11:42)
[2018-10-18] MEDS: Morphine 4 MG/ML Syringe IV (11:43)
[2018-10-18 11:45] LABS: Blood Gas Specimen Type VEN; O2 Delivery Device Room Air; SITE OTHER; Time Given 1139; VBG BASE EXCESS 7 mmol/L (-1.0-3.5); VBG Bicarbonate 30 mmol/L (22-26); VBG Oxygen Content 31 mmol/L (23-33); VBG PO2 23 mmHg (25-40); VBG SO2 49 % (50-70); VBG pCO2 37.3 mmHg (41-51); VBG pH 7.52 (7.32-7.42)
[2018-10-18 11:48] LABS: Absolute Lymphocyte Count 0.47 X10^3/ul (0.83-4.51); Basophil# 0.01 X10^3/uL; Basophil% 0.2 % (0-1); Hematocrit 37.9 % (40-54); Hemoglobin 12.4 g/dl (13.0-16.5); Lymphocyte # 0.47 X10^3/ul (4.0); Lymphocyte % 9.8 % (19-41); Mean Corp Hgb Conc 32.7 g/gl (32-36); Mean Corpuscular Hgb 22.7 pg (27.0-32.0); Mean Corpuscular Volume 69.4 fL (80-94); Mean Platelet Vol. 10.3 fl (6.2-12.0); Monocyte# 0.32 X10^3/uL; Monocyte% 6.7 % (0-10); Neutrophil # 3.98 X10^3/uL (2.7-7.7); Neutrophil % 83.1 % (47-70); Platelet Count 117 K/mm3 (150-450); RBC Distribution Width CV 15.4 % (11.6-14.6); RBC Distribution Width SD 39.3 fl (35.1-43.9); Red Blood Count 5.46 M/mm3 (4.6-6.2); White Blood Count 4.8 K/mm3 (4.4-11.0)
[2018-10-18 11:49] LABS: Differential Indicated SCAN CRITERIA MET; POSITIVE COUNT NO; POSITIVE DIFFERENTIAL YES; POSITIVE MORPHOLOGY NO
[2018-10-18 12:11] LABS: Anion Gap 13 (5-15); BUN 60 mg/dL (7-18); BUN/Creat Ratio 6.3 RATIO (10-20); Calcium,Total 8.7 mg/dL (8.5-10.1); Chloride 97 mmol/L (98-107); Creatinine, Serum 9.47 mg/dL (0.70-1.30); EST Glomerular Filtration Rate 6 mL/min (>60); Est Glom Filt Rate - Afr Amer 8 mL/min (>60); Estimated Creatinine Clearance 9.58 ml/min; Glucose 349 mg/dL (74-106); Lactic Acid 3.8 mmol/L (0.4-2.0); Magnesium 3.2 mg/dL (1.6-2.6); Phosphorus 3.2 mg/dL (2.5-4.9); Potassium 3.8 mmol/L (3.5-5.1); Sodium Level 139 mmol/L (136-145)
--- NOTE | 2018-10-18 12:12 | NURSING ---
CRITICAL LABDS RELAYED TO PHYSICIAN
[2018-10-18] MEDS: Insulin Lispro 100 UNIT/ML INSULN.PEN 10 UNIT SC (12:48)
--- NOTE | 2018-10-18 13:27 | CT_ITS ---
STUDY: CT ABDOMEN AND PELVIS WITHOUT CONTRAST REASON FOR EXAM: Male, 48 years old. Nausea, vomiting, sore throat, congestion, history of end-stage renal disease on dialysis. RADIATION DOSAGE (If Supplied By Facility): CTDIvol = ( 6.04 ) mGy, DLP = ( 299 ) mGycm TECHNIQUE: Transaxial images were obtained from the dome of the diaphragm to the symphysis pubis without oral contrast, and without intravenous contrast. Sagittal and coronal images were reconstructed. Individualized dose optimization techniques were used for this CT. COMPARISON: CT abdomen and pelvis 04/15/2015 FINDINGS: Body wall soft tissues: No acute process. Osseous structures: No acute process. Inferior chest: There is coronary atherosclerosis visible in the distal LAD and distal RCA. No cardiomegaly or pericardial effusion. Clear lung bases. Hepatobiliary: Hepatomegaly, craniocaudal right liver 21.3 cm. Unremarkable gallbladder and biliary tree. Pancreas: No acute process. Spleen: Normal. Adrenal glands: Normal. Urogenital: Normal kidneys, collecting systems, ureters and mild circumferential thickening of wall the urinary bladder associated with mild prostatomegaly and likely reflecting detrusor muscle hypertrophy. Pelvic floor and sidewalls and retroperitoneum: No mass or adenopathy. Vasculature: No acute process. Prominent circumference of calcification of the wall the abdominal aorta, iliac arteries, proximal femoral arteries. Stomach: No acute process. Small bowel and mesentery: No acute process. Large bowel: Normal appendix. Unremarkable large bowel and rectum. Free fluid or free air: None. CT/Abdomen/Pelvis without Cont IMPRESSION: Prominent aortoiliac and proximal femoral atherosclerosis. Coronary atherosclerosis. Hepatomegaly. No acute abdominopelvic process is otherwise evident. Electronically Signed: Rafita Onofre MD at 14:24 EDT Tel , Service support ,
[2018-10-18] MEDS: Metoclopramide 10 MG/2 ML Vial IV (13:39)
[2018-10-18 13:41] LABS: Partial Thromboplast Time 30.3 Seconds (24.1-36.2)
[2018-10-18 13:54] LABS: AST(SGOT) 25 U/L (15-37); Alanine Aminotransfer ALT/SGPT 20 U/L (16-61); Albumin, Serum 4.4 g/dL (3.2-5.0); Alkaline Phosphatase 132 U/L (45-117); Bilirubin, Direct 0.15 mg/dL (0.00-0.30); Globulin 4.2 g/dL (2.2-4.2); Protein, Total 8.6 g/dL (6.4-8.2)
[2018-10-18] MEDS: Heparin Injection (Vial) 5,000 UNIT/ML VIAL 5000 UNIT IV (14:20)
[2018-10-18] MEDS: HEPARIN/D5w 25,000 UNITS 25,000 UNITS/250 ML IV.SOLN. 11 UNITS IV (14:21)
[2018-10-18] MEDS: Aspirin 81 MG TAB.CHEW 324 MG PO (14:28)
[2018-10-18] MEDS: Clopidogrel Bisulfate 300 MG Tablet PO (14:29)
--- NOTE | 2018-10-18 14:57 | NURSING ---
DR NANCY ARMAS
--- NOTE | 2018-10-18 15:01 | NURSING ---
DR CRUZ IN ER
--- NOTE | 2018-10-18 15:01 | NURSING ---
PCU NANCY ELEVATED TROP, ANGINAL EQUIVALENT, UNCONTROLLED HTN, HYPERGLYCEMIA
--- NOTE | 2018-10-18 15:21 | PCM.HP.STD ---
Problem List (1) NSTEMI (non-ST elevated myocardial infarction) Status: Acute History of Present Illness Date of Admission: 10/18/18 Chief Complaint: nausea and vomiting. The patient is a 48 year old M presents with nausea and vomiting since yesterday. Presented to the ER and was found to have a troponin of 1.84. Dr. Mcghee was notified and recommended medical mgmt and plan for heart cath on Friday. Patient denies any chest pain nor any shortness of breath. Has had a heart attack previously, but his symptoms were different than those. [] Past Medical History Past Medical History (Chronic Problems): Chronic Problems (Last Reviewed 09/11/17 @ 08:41 by Yani Gan) Chronic kidney disease (Chronic) stage 3 Depression (Chronic) Hyperlipidemia (Chronic) Delayed wound healing (Chronic) Ulcer of right foot with fat layer exposed (Chronic) History of iron deficiency (Chronic) Anemia due to chronic kidney disease (Chronic) HTN (hypertension) (Chronic) Hypomagnesemia (Chronic) Diabetes mellitus type 1 (Chronic) ESRD (end stage renal disease) on dialysis (Chronic) Diabetic neuropathy (Chronic) 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 Miranda Peripheral vascular disease (Chronic) Glaucoma (Chronic) Diabetes mellitus with neuropathy (Chronic) Microcytic anemia (Chronic) persists despite iron supplementation, possible alpha thalasemia Benign essential hypertension (Chronic) Medical History: Medical History (Last Reviewed 10/18/18 @ 15:24 by Jenaro Gant DO) Chronic kidney disease (Chronic) N18.9 stage 3 Depression (Chronic) F32.9 Hyperlipidemia (Chronic) E78.5 Malnutrition (Acute) E46 Delayed wound healing (Chronic) T14.8 Ulcer of right foot with fat layer exposed (Chronic) L97.512 History of iron deficiency (Chronic) Z86.39 Anemia due to chronic kidney disease (Chronic) N18.9, D63.1 HTN (hypertension) (Chronic) I10 Hypomagnesemia (Chronic) E83.42 Diabetic foot infection (Acute) E11.69, L08.9 superficial R foot at the incision site for the R TMA Diabetes mellitus type 1 (Chronic) ESRD (end stage renal disease) on dialysis (Chronic) N18.6, Z99.2 Diabetic neuropathy (Chronic) E11.40 Hyponatremia (Acute) E87.1 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) E10.29 Acute on chronic anemia (Acute) Cellulitis of right foot (Acute) L03.115 Peripheral vascular disease (Chronic) I73.9 Glaucoma (Chronic) H40.9 Diabetes mellitus with neuropathy (Chronic) E11.40 Microcytic anemia (Chronic) D50.9 persists despite iron supplementation, possible alpha thalasemia Benign essential hypertension (Chronic) I10 Allergies calcium [From PhosLo] Allergy (Verified 10/18/18 10:59) Hives Home Medications: Ambulatory Orders Medication Instructions Recorded Hydralazine HCl 100 mg PO TID 07/06/17 Insulin Detemir [Levemir (BKC)] 10 units SC QHS 07/06/17 Insulin Detemir [Levemir (BKC)] 13 units SC DAILY 07/06/17 Latanoprost 0.005% [Xalatan 1 drp EACH EYE QHS 07/06/17 Opthalmic] Lisinopril [Zestril] 40 mg PO DAILY 07/06/17 Metoprolol Tartrate 25 mg PO QHS 07/06/17 Metoprolol Tartrate 37.5 mg PO DAILY 07/06/17 Sevelamer Carbonate [Renvela] 1,600 mg PO TIDCM 07/06/17 Simvastatin 40 mg PO QHS 07/06/17 Minoxidil [Loniten] 2.5 mg PO DAILY 10/18/18 Surgical History: Surgical History (Last Reviewed 10/18/18 @ 15:24 by Jenaro Gant DO) Status post transmetatarsal amputation of right foot (Chronic) Z89.431 12/27 Dr. Miranda Presence of surgically created primary arteriovenous shunt for hemodialysis Z99.2 LUE Status post peripheral artery angioplasty Z98.62 Surgical History: - - transmetatarsal amputation right forefoot December 2015, right great toe amputation Feb 2014. LUE fistula Smoking Status: Never smoker Tobacco Use: Non-smoker - *Family History Maternal Family History: Family History (Last Reviewed 10/18/18 @ 15:25 by Jenaro Gant DO) Sister Heart disease Uncle Colon cancer History Items: Diabetes, No pertinent history Paternal Family History: Family History (Last Reviewed 10/18/18 @ 15:25 by Jenaro Gant DO) Sister Heart disease Uncle Colon cancer History Items: Diabetes, No pertinent history Review of Systems Constitutional: Reports: Malaise. Denies: Anorexia, Chills, Fever Eyes: Denies: Blurred vision, Double vision HEENT: Denies: Head Aches, Sinus Congestion, Sinus Drainage Cardiovascular: Denies: Chest Pain, Palpitations Respiratory: Denies: Cough, Shortness of breath at rest, Sputum production Gastrointestinal: Reports: Abdominal Pain, Nausea, Vomiting. Denies: Diarrhea Genitourinary: Reports: - - no urine output. Denies: Dysuria Musculoskeletal: Denies: Joint Pain, Joint Tenderness Skin: Denies: Rash, Wounds Neurological: Denies: Numbness, Tingling, Focal weakness Psychiatric: Denies: Anxiety, Depression Endocrine: Denies: Change in Body Habitus, Heat/ Cold Intolerance Hematologic/ Lymphatic: Denies: Easy Bruising, Easy Bleeding, Hx of blood clot Comment: A 10 point review of systems were negative except as mentioned in the history of present illness and the other review of systems. VTE Information - Inpt Only VTE Present on Admission: No VTE Pharm Prophylaxis ordered?: Yes Patient Problems: Active and Suspected Problems (Last Reviewed 09/11/17 @ 08:41 by Yani Gan) NSTEMI (non-ST elevated myocardial infarction) (Acute) - Physical Exam General: Alert, No apparent distress, Well developed, Well nourished HEENT: Atraumatic, PERRLA, EOMI, Normocephalic Oral: Moist Mucosa, No Gingival or Mucosal Lesions/ Ulcerations Neck: No Nodes, Thyroid Normal Size and Texture Lungs: Clear to auscultation, Normal air movement, No rhonchi, No wheeze Cardiovascular: Regular rate, Regular Rhythm, Normal S1, Normal S2, No Ectopic Activity Abdomen: Bowel Sounds Present, Soft, Non Tender, Non-Distended, No Hepato-splenomegaly Extremities: No edema, No Calf Tenderness, - - fistula in LUE, cast on right LE. Skin: No rashes, No breakdown Musculoskeletal: No Tenderness to Palpation of Joints or Extremities, No Muscle Wasting Neurological: Neuro grossly intact, Muscle tone normal, Coordination normal Psych/Mental Status: Normal Affect, Appropriate Vital Signs Temp Pulse Resp BP Pulse Ox 36.9 C 93 16 155/101 H 97 10/18/18 15:07 10/18/18 15:07 10/18/18 15:07 10/18/18 15:07 10/18/18 15:07 Oxygen Delivery Method Room Air Weight: 72.575 kg Body Mass Index (BMI) 20.5 Finger Stick Blood Glucose 370 Laboratory Tests Past 24 Hrs 10/18/18 10/18/18 10/18/18 11:35 11:35 11:35 WBC 4.8 RBC 5.46 Hgb 12.4 L Hct 37.9 L MCV 69.4 L MCH 22.7 L MCHC 32.7 RDW 15.4 H RDW Differential 39.3 Plt Count 117 L MPV 10.3 Immature Gran % (Auto) 0.200 Neut % (Auto) 83.1 H Lymph % (Auto) 9.8 L [place] % (Auto) 6.7 Eos % (Auto) 0.0 Baso % (Auto) 0.2 Absolute Neuts (auto) 4.0 Absolute Lymphs (auto) 0.47 L Total Counted Not Reportable APTT Specimen Type Sample Site VBG pH VBG pO2 VBG O2 Sat (Calc) VBG O2 Content VBG Base Excess POC Mix VBG pCO2 Pt Tmp O2 Delivery Device Blood Gas Notified Whom Blood Gas Notified Time Sodium 139 Potassium 3.8 Chloride 97 L Carbon Dioxide 29.0 Anion Gap 13 BUN 60 H Creatinine 9.47 H* Estim Creat Clear Calc 9.58 Est GFR (MDRD) Af Amer 8 L Est GFR (MDRD) Non-Af 6 L BUN/Creatinine Ratio 6.3 L Glucose 349 H Lactic Acid Calcium 8.7 Phosphorus 3.2 Magnesium 3.2 H Total Bilirubin Direct Bilirubin AST ALT Alkaline Phosphatase Troponin I 1.840 H* Total Protein Albumin Globulin Acetone Level NEGATIVE 10/18/18 10/18/18 10/18/18 11:35 11:35 11:35 WBC RBC Hgb Hct MCV MCH MCHC RDW RDW Differential Plt Count MPV Immature Gran % (Auto) Neut % (Auto) Lymph % (Auto) [place] % (Auto) Eos % (Auto) Baso % (Auto) Absolute Neuts (auto) Absolute Lymphs (auto) Total Counted APTT 30.3 Specimen Type Sample Site VBG pH VBG pO2 VBG O2 Sat (Calc) VBG O2 Content VBG Base Excess POC Mix VBG pCO2 Pt Tmp O2 Delivery Device Blood Gas Notified Whom Blood Gas Notified Time Sodium Potassium Chloride Carbon Dioxide Anion Gap BUN Creatinine Estim Creat Clear Calc Est GFR (MDRD) Af Amer Est GFR (MDRD) Non-Af BUN/Creatinine Ratio Glucose Lactic Acid 3.8 H Calcium Phosphorus Magnesium Total Bilirubin 0.60 Direct Bilirubin 0.15 AST 25 ALT 20 Alkaline Phosphatase 132 H Troponin I Total Protein 8.6 H Albumin 4.4 Globulin 4.2 Acetone Level 10/18/18 11:40 WBC RBC Hgb Hct MCV MCH MCHC RDW RDW Differential Plt Count MPV Immature Gran % (Auto) Neut % (Auto) Lymph % (Auto) [place] % (Auto) Eos % (Auto) Baso % (Auto) Absolute Neuts (auto) Absolute Lymphs (auto) Total Counted APTT Specimen Type BLAKE Sample Site OTHER VBG pH 7.52 H VBG pO2 23 L VBG O2 Sat (Calc) 49 L VBG O2 Content 31 VBG Base Excess 7 H POC Mix VBG pCO2 Pt Tmp 37.3 L O2 Delivery Device Room Air Blood Gas Notified Whom ED MD Blood Gas Notified Time 1139 Sodium Potassium Chloride Carbon Dioxide Anion Gap BUN Creatinine Estim Creat Clear Calc Est GFR (MDRD) Af Amer Est GFR (MDRD) Non-Af BUN/Creatinine Ratio Glucose Lactic Acid Calcium Phosphorus Magnesium Total Bilirubin Direct Bilirubin AST ALT Alkaline Phosphatase Troponin I Total Protein Albumin Globulin Acetone Level POC Glucose 10/18/18 11:08 POC Glucose 370 H Assessment/Plan All Active Problems (Last Reviewed 09/11/17 @ 08:41 by Yani Gan) Problem with dialysis access (Acute) NSTEMI (non-ST elevated myocardial infarction) (Acute) Malnutrition (Acute) Diabetic foot infection (Acute) Hyponatremia (Acute) Acute on chronic anemia (Acute) Cellulitis of right foot (Acute) Amputated great toe of right foot (Resolved) Hammer toe of right foot (Resolved) Malnutrition (Resolved) Right forefoot osteomyelitis (Resolved) 1. NSTEMI medical mgmt with heparin gtt, ASA, plavix, statin Dr. Mcghee notified, and tentative plan for LHC on 10/19/18 currently symptom free troponin maybe skewed due to ESRD 2. Nausea and vomiting suspect related to #1 PRN Zofran 3. DM1: continue Lantus add SSI 4. ESRD: on HD QMWF, states that he has been compliant with his HD consult nephrology to resume HD Ideally, if the patient has a heart cath tomorrow, for the patient to have HD afterwards 5. VTE prophylaxis: not indicated as currently on a heparin gtt. 6. Right diabetic foot infection: s/p resection of prominent deformed bone on right foot still has cast on, but full weight-bearing (according to the patient) follow up with Dr. Miranda Code Visit Inpatient E&M: 93991 Init Hosp L3
--- NOTE | 2018-10-18 15:25 | HP.PCM_ITS ---
Problem List (1) NSTEMI (non-ST elevated myocardial infarction) Status: Acute History of Present Illness Date of Admission: 10/18/18 Chief Complaint: nausea and vomiting. The patient is a 48 year old M presents with nausea and vomiting since yesterday. Presented to the ER and was found to have a troponin of 1.84. Dr. Mcghee was notified and recommended medical mgmt and plan for heart cath on Friday. Patient denies any chest pain nor any shortness of breath. Has had a heart attack previously, but his symptoms were different than those. [] Past Medical History Past Medical History (Chronic Problems): Chronic Problems (Last Reviewed 09/11/17 @ 08:41 by Yani Gan) Chronic kidney disease (Chronic) stage 3 Depression (Chronic) Hyperlipidemia (Chronic) Delayed wound healing (Chronic) Ulcer of right foot with fat layer exposed (Chronic) History of iron deficiency (Chronic) Anemia due to chronic kidney disease (Chronic) HTN (hypertension) (Chronic) Hypomagnesemia (Chronic) Diabetes mellitus type 1 (Chronic) ESRD (end stage renal disease) on dialysis (Chronic) Diabetic neuropathy (Chronic) 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 Miranda Peripheral vascular disease (Chronic) Glaucoma (Chronic) Diabetes mellitus with neuropathy (Chronic) Microcytic anemia (Chronic) persists despite iron supplementation, possible alpha thalasemia Benign essential hypertension (Chronic) Medical History: Medical History (Last Reviewed 10/18/18 @ 15:24 by Jenaro Gant DO) Chronic kidney disease (Chronic) N18.9 stage 3 Depression (Chronic) F32.9 Hyperlipidemia (Chronic) E78.5 Malnutrition (Acute) E46 Delayed wound healing (Chronic) T14.8 Ulcer of right foot with fat layer exposed (Chronic) L97.512 History of iron deficiency (Chronic) Z86.39 Anemia due to chronic kidney disease (Chronic) N18.9, D63.1 HTN (hypertension) (Chronic) I10 Hypomagnesemia (Chronic) E83.42 Diabetic foot infection (Acute) E11.69, L08.9 superficial R foot at the incision site for the R TMA Diabetes mellitus type 1 (Chronic) ESRD (end stage renal disease) on dialysis (Chronic) N18.6, Z99.2 Diabetic neuropathy (Chronic) E11.40 Hyponatremia (Acute) E87.1 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) E10.29 Acute on chronic anemia (Acute) Cellulitis of right foot (Acute) L03.115 Peripheral vascular disease (Chronic) I73.9 Glaucoma (Chronic) H40.9 Diabetes mellitus with neuropathy (Chronic) E11.40 Microcytic anemia (Chronic) D50.9 persists despite iron supplementation, possible alpha thalasemia Benign essential hypertension (Chronic) I10 Allergies calcium [From PhosLo] Allergy (Verified 10/18/18 10:59) Hives Home Medications: Ambulatory Orders Medication Instructions Recorded Hydralazine HCl 100 mg PO TID 07/06/17 Insulin Detemir [Levemir (BKC)] 10 units SC QHS 07/06/17 Insulin Detemir [Levemir (BKC)] 13 units SC DAILY 07/06/17 Latanoprost 0.005% [Xalatan 1 drp EACH EYE QHS 07/06/17 Opthalmic] Lisinopril [Zestril] 40 mg PO DAILY 07/06/17 Metoprolol Tartrate 25 mg PO QHS 07/06/17 Metoprolol Tartrate 37.5 mg PO DAILY 07/06/17 Sevelamer Carbonate [Renvela] 1,600 mg PO TIDCM 07/06/17 Simvastatin 40 mg PO QHS 07/06/17 Minoxidil [Loniten] 2.5 mg PO DAILY 10/18/18 Surgical History: Surgical History (Last Reviewed 10/18/18 @ 15:24 by Jenaro Gant DO) Status post transmetatarsal amputation of right foot (Chronic) Z89.431 12/27 Dr. Miranda Presence of surgically created primary arteriovenous shunt for hemodialysis Z99.2 LUE Status post peripheral artery angioplasty Z98.62 Surgical History: - - transmetatarsal amputation right forefoot December 2015, right great toe amputation Feb 2014. LUE fistula Smoking Status: Never smoker Tobacco Use: Non-smoker - *Family History Maternal Family History: Family History (Last Reviewed 10/18/18 @ 15:25 by Jenaro Gant DO) Sister Heart disease Uncle Colon cancer History Items: Diabetes, No pertinent history Paternal Family History: Family History (Last Reviewed 10/18/18 @ 15:25 by Jenaro Gant DO) Sister Heart disease Uncle Colon cancer History Items: Diabetes, No pertinent history Review of Systems Constitutional: Reports: Malaise. Denies: Anorexia, Chills, Fever Eyes: Denies: Blurred vision, Double vision HEENT: Denies: Head Aches, Sinus Congestion, Sinus Drainage Cardiovascular: Denies: Chest Pain, Palpitations Respiratory: Denies: Cough, Shortness of breath at rest, Sputum production Gastrointestinal: Reports: Abdominal Pain, Nausea, Vomiting. Denies: Diarrhea Genitourinary: Reports: - - no urine output. Denies: Dysuria Musculoskeletal: Denies: Joint Pain, Joint Tenderness Skin: Denies: Rash, Wounds Neurological: Denies: Numbness, Tingling, Focal weakness Psychiatric: Denies: Anxiety, Depression Endocrine: Denies: Change in Body Habitus, Heat/ Cold Intolerance Hematologic/ Lymphatic: Denies: Easy Bruising, Easy Bleeding, Hx of blood clot Comment: A 10 point review of systems were negative except as mentioned in the history of present illness and the other review of systems. VTE Information - Inpt Only VTE Present on Admission: No VTE Pharm Prophylaxis ordered?: Yes Patient Problems: Active and Suspected Problems (Last Reviewed 09/11/17 @ 08:41 by Yani Gan) NSTEMI (non-ST elevated myocardial infarction) (Acute) - Physical Exam General: Alert, No apparent distress, Well developed, Well nourished HEENT: Atraumatic, PERRLA, EOMI, Normocephalic Oral: Moist Mucosa, No Gingival or Mucosal Lesions/ Ulcerations Neck: No Nodes, Thyroid Normal Size and Texture Lungs: Clear to auscultation, Normal air movement, No rhonchi, No wheeze Cardiovascular: Regular rate, Regular Rhythm, Normal S1, Normal S2, No Ectopic Activity Abdomen: Bowel Sounds Present, Soft, Non Tender, Non-Distended, No Hepato- splenomegaly Extremities: No edema, No Calf Tenderness, - - fistula in LUE, cast on right LE. Skin: No rashes, No breakdown Musculoskeletal: No Tenderness to Palpation of Joints or Extremities, No Muscle Wasting Neurological: Neuro grossly intact, Muscle tone normal, Coordination normal Psych/Mental Status: Normal Affect, Appropriate Vital Signs Temp Pulse Resp BP Pulse Ox 36.9 C 93 16 155/101 H 97 10/18/18 15:07 10/18/18 15:07 10/18/18 15:07 10/18/18 15:07 10/18/18 15:07 Oxygen Delivery Method Room Air Weight: 72.575 kg Body Mass Index (BMI) 20.5 Finger Stick Blood Glucose 370 Laboratory Tests Past 24 Hrs 10/18/18 10/18/18 10/18/18 11:35 11:35 11:35 WBC 4.8 RBC 5.46 Hgb 12.4 L Hct 37.9 L MCV 69.4 L MCH 22.7 L MCHC 32.7 RDW 15.4 H RDW Differential 39.3 Plt Count 117 L MPV 10.3 Immature Gran % (Auto) 0.200 Neut % (Auto) 83.1 H Lymph % (Auto) 9.8 L [place] % (Auto) 6.7 Eos % (Auto) 0.0 Baso % (Auto) 0.2 Absolute Neuts (auto) 4.0 Absolute Lymphs (auto) 0.47 L Total Counted Not Reportable APTT Specimen Type Sample Site VBG pH VBG pO2 VBG O2 Sat (Calc) VBG O2 Content VBG Base Excess POC Mix VBG pCO2 Pt Tmp O2 Delivery Device Blood Gas Notified Whom Blood Gas Notified Time Sodium 139 Potassium 3.8 Chloride 97 L Carbon Dioxide 29.0 Anion Gap 13 BUN 60 H Creatinine 9.47 H* Estim Creat Clear Calc 9.58 Est GFR (MDRD) Af Amer 8 L Est GFR (MDRD) Non-Af 6 L BUN/Creatinine Ratio 6.3 L Glucose 349 H Lactic Acid Calcium 8.7 Phosphorus 3.2 Magnesium 3.2 H Total Bilirubin Direct Bilirubin AST ALT Alkaline Phosphatase Troponin I 1.840 H* Total Protein Albumin Globulin Acetone Level NEGATIVE 10/18/18 10/18/18 10/18/18 11:35 11:35 11:35 WBC RBC Hgb Hct MCV MCH MCHC RDW RDW Differential Plt Count MPV Immature Gran % (Auto) Neut % (Auto) Lymph % (Auto) [place] % (Auto) Eos % (Auto) Baso % (Auto) Absolute Neuts (auto) Absolute Lymphs (auto) Total Counted APTT 30.3 Specimen Type Sample Site VBG pH VBG pO2 VBG O2 Sat (Calc) VBG O2 Content VBG Base Excess POC Mix VBG pCO2 Pt Tmp O2 Delivery Device Blood Gas Notified Whom Blood Gas Notified Time Sodium Potassium Chloride Carbon Dioxide Anion Gap BUN Creatinine Estim Creat Clear Calc Est GFR (MDRD) Af Amer Est GFR (MDRD) Non-Af BUN/Creatinine Ratio Glucose Lactic Acid 3.8 H Calcium Phosphorus Magnesium Total Bilirubin 0.60 Direct Bilirubin 0.15 AST 25 ALT 20 Alkaline Phosphatase 132 H Troponin I Total Protein 8.6 H Albumin 4.4 Globulin 4.2 Acetone Level 10/18/18 11:40 WBC RBC Hgb Hct MCV MCH MCHC RDW RDW Differential Plt Count MPV Immature Gran % (Auto) Neut % (Auto) Lymph % (Auto) [place] % (Auto) Eos % (Auto) Baso % (Auto) Absolute Neuts (auto) Absolute Lymphs (auto) Total Counted APTT Specimen Type BLAKE Sample Site OTHER VBG pH 7.52 H VBG pO2 23 L VBG O2 Sat (Calc) 49 L VBG O2 Content 31 VBG Base Excess 7 H POC Mix VBG pCO2 Pt Tmp 37.3 L O2 Delivery Device Room Air Blood Gas Notified Whom ED MD Blood Gas Notified Time 1139 Sodium Potassium Chloride Carbon Dioxide Anion Gap BUN Creatinine Estim Creat Clear Calc Est GFR (MDRD) Af Amer Est GFR (MDRD) Non-Af BUN/Creatinine Ratio Glucose Lactic Acid Calcium Phosphorus Magnesium Total Bilirubin Direct Bilirubin AST ALT Alkaline Phosphatase Troponin I Total Protein Albumin Globulin Acetone Level POC Glucose 10/18/18 11:08 POC Glucose 370 H Assessment/Plan All Active Problems (Last Reviewed 09/11/17 @ 08:41 by Yani Gan) Problem with dialysis access (Acute) NSTEMI (non-ST elevated myocardial infarction) (Acute) Malnutrition (Acute) Diabetic foot infection (Acute) Hyponatremia (Acute) Acute on chronic anemia (Acute) Cellulitis of right foot (Acute) Amputated great toe of right foot (Resolved) Hammer toe of right foot (Resolved) Malnutrition (Resolved) Right forefoot osteomyelitis (Resolved) 1. NSTEMI * medical mgmt with heparin gtt, ASA, plavix, statin * Dr. Mcghee notified, and tentative plan for [facility] on 10/19/18 * currently symptom free * troponin maybe skewed due to ESRD 2. Nausea and vomiting * suspect related to #1 * PRN Zofran 3. DM1: * continue Lantus * add SSI 4. ESRD: * on HD QMWF, states that he has been compliant with his HD * consult nephrology to resume HD * Ideally, if the patient has a heart cath tomorrow, for the patient to have HD afterwards 5. VTE prophylaxis: not indicated as currently on a heparin gtt. 6. Right diabetic foot infection: * s/p resection of prominent deformed bone on right foot * still has cast on, but full weight-bearing (according to the patient) * follow up with Dr. Miranda Code Visit Inpatient E&M: 84351 Init Hosp L3
[2018-10-18 15:40] LABS: Reflex Lactate? Y
--- NOTE | 2018-10-18 16:17 | EKG12_ITS ---
Test Reason : CP ADMISSION Blood Pressure : / mmHG Vent. Rate : 088 BPM Atrial Rate : 088 BPM P-R Int : 178 ms QRS Dur : 086 ms QT Int : 432 ms P-R-T Axes : 070 -08 057 degrees QTc Int : 522 ms Normal sinus rhythm Minimal voltage criteria for LVH, may be normal variant Septal infarct , age undetermined Prolonged QT Abnormal ECG Confirmed by KAILA MENDEZ, PRAVEENA ([id number]), greeting card editor ALISON RHODES ([id number]) on 10/21/2018 1:57:07 PM Referred By: BENITO Confirmed By:PRAVEENA BRIGHT MD
[2018-10-18 16:36] LABS: International Normalized Ratio 1.1; Prothrombin Time (Protime)PT. 13.8 SECONDS (11.7-14.9)
[2018-10-18 16:36] LABS: Bedside Glucose 354 mg/dL (70-110)
[2018-10-18] MEDS: HEPARIN/D5w 25,000 UNITS 25,000 UNITS/250 ML IV.SOLN. 10 UNITS IV (16:43)
[2018-10-18] MEDS: Insulin Lispro 100 UNIT/ML INSULN.PEN SQ (16:44)
[2018-10-18] MEDS: SEVELAMER CARBONATE 800 MG TABLET 1600 MG PO (16:44)
--- NOTE | 2018-10-18 20:20 | ECHOD_ITS ---
Reason For Study: chest pain Procedure This was a 2D Doppler, Color Flow transthoracic echocardiogram. Exam performed portable in patient room. Left Ventricle Mild concentric left ventricular hypertrophy. The estimated ejection fraction is 75 %. Stage 1 diastolic dysfunction. No regional wall motion abnormalities noted. Right Ventricle Normal size and thickness. Normal systolic function. Atria Normal left atrium. Normal right atrium. Normal atrial septum. Mitral Valve The mitral valve is structurally normal. No prolapse or stenosis seen. Trivial mitral valve insufficiency. Tricuspid Valve Normal tricuspid valve. Trivial tricuspid valve insufficiency. Right ventricular systolic pressure estimated to be 26 mmHg. Aortic Valve Trisinus/trileaflet aortic valve. Mild focal aortic valve thickening. There is no aortic stenosis. Pulmonic Valve Normal pulmonic valve. Great Vessels Normal aortic root. Normal arch. Normal inferior vena cava. Inferior vena cava collapse with sniff. Pericardium/Pleural No pericardial effusion. MMode/2D Measurements & Calculations LVIDd: 4.2 cm IVSd: 1.3 cm Ao root diam: 3.6 cm LVIDs: 3.0 cm LVPWd: 1.3 cm RVDd: 3.5 cm FS: 28.8 % LAV(MOD-bp): 51.0 ml EDV(MOD-sp4): 92.0 ml EDV(MOD-sp2): 81.7 ml LAV(MOD-bp) Indexed: 26.9 ml/m2 ESV(MOD-sp4): 37.0 ml EF(MOD-sp2): 62.9 % LAV(MOD-sp2): 36.5 ml EF(MOD-sp4): 59.8 % LAV(MOD-sp4): 49.1 ml SV(MOD-sp4): 55.1 ml SV(MOD-sp2): 51.4 ml LA A4 area: 16.1 cm2 LA dimension(2D): 4.0 cm RA A4 area: 12.6 cm2 Doppler Measurements & Calculations MV E max abel: 58.9 cm/sec Lat Peak E' Abel: 5.5 cm/sec Med Peak E' Abel: 6.0 cm/sec MV A max abel: 90.4 cm/sec E/E' lat: 10.7 E/E' med: 9.8 MV E/A: 0.65 Ao V2 max: 95.9 cm/sec LV V1 max: 74.8 cm/sec PA V2 max: 75.8 cm/sec Ao max P.7 mmHg LV V1 max P.2 mmHg TR max abel: 234.3 cm/sec TR max P.0 mmHg Interpretation Summary Mild concentric left ventricular hypertrophy. The estimated ejection fraction is 75 %. Stage 1 diastolic dysfunction. Trivial mitral valve insufficiency. Trivial tricuspid valve insufficiency. Right ventricular systolic pressure estimated to be 26 mmHg. There is no comparison study available. Ordering Physician: Keyshawn Mcghee Referring Physician: Peter Coronado Performed By: Beverly Smart RDCS, RVT
[2018-10-18 20:27] LABS: Partial Thromboplast Time 76.2 Seconds (24.1-36.2)
[2018-10-18] MEDS: Atorvastatin Calcium 40 MG Tablet PO (22:10)
[2018-10-18] MEDS: hydrALAZINE 50 MG Tablet 100 MG PO (22:10)
[2018-10-18] MEDS: Metoprolol Tartrate 25 MG Tablet PO (22:10)
[2018-10-18] MEDS: Latanoprost 0.005% 1 Bottle 1 DRP EACH EYE (22:11)
[2018-10-18 22:35] LABS: Bedside Glucose 160 mg/dL (70-110)
[2018-10-19] VITALS (44 sets, daily range): BP systolic 96–203; BP diastolic 68–107; PULSE 77–95; RESP 12–24; TEMP 36.6–37.2; O2SAT 93–100; BMI 17.6
[2018-10-19 02:18] LABS: Partial Thromboplast Time 54.9 Seconds (24.1-36.2)
[2018-10-19 05:37] LABS: Hematocrit 32.5 % (40-54); Hemoglobin 10.7 g/dl (13.0-16.5); Mean Corp Hgb Conc 32.9 g/gl (32-36); Mean Corpuscular Volume 69.9 fL (80-94); Mean Platelet Vol. 10.4 fl (6.2-12.0); Platelet Count 112 K/mm3 (150-450); RBC Distribution Width CV 15.4 % (11.6-14.6); RBC Distribution Width SD 38.6 fl (35.1-43.9); Red Blood Count 4.65 M/mm3 (4.6-6.2); White Blood Count 4.7 K/mm3 (4.4-11.0)
[2018-10-19 05:55] LABS: International Normalized Ratio 1.2; Prothrombin Time (Protime)PT. 14.8 SECONDS (11.7-14.9)
[2018-10-19] MEDS: Aspirin E.C. 81 MG Tablet PO (05:55)
[2018-10-19] MEDS: hydrALAZINE 50 MG Tablet 100 MG PO ×3 (05:55→21:28)
[2018-10-19] MEDS: Metoprolol Tartrate 25 MG Tablet 37.5 MG PO (05:55)
--- NOTE | 2018-10-19 05:55 | EKG12_ITS ---
Test Reason : AM EKG Blood Pressure : / mmHG Vent. Rate : 082 BPM Atrial Rate : 082 BPM P-R Int : 166 ms QRS Dur : 090 ms QT Int : 444 ms P-R-T Axes : 078 -02 056 degrees QTc Int : 518 ms Normal sinus rhythm Prolonged QT Septal TX, age undetermined, cannot be excluded Abnormal ECG Confirmed by KAILA MENDEZ, PRAVEENA ([id number]), science editor ALISON RHODES ([id number]) on 10/21/2018 2:05:26 PM Referred By: NANCY Confirmed By:PRAVEENA BRIGHT MD
[2018-10-19] MEDS: Clopidogrel Bisulfate 75 MG Tablet PO (05:56)
[2018-10-19] MEDS: Lisinopril 40 MG Tablet PO (05:56)
[2018-10-19] MEDS: Minoxidil 2.5 MG Tablet PO (05:57)
[2018-10-19 06:12] LABS: Anion Gap 11 (5-15); BUN 65 mg/dL (7-18); BUN/Creat Ratio 6.3 RATIO (10-20); Calcium,Total 8.1 mg/dL (8.5-10.1); Chloride 99 mmol/L (98-107); EST Glomerular Filtration Rate 6 mL/min (>60); Est Glom Filt Rate - Afr Amer 7 mL/min (>60); Glucose 103 mg/dL (74-106); Potassium 3.2 mmol/L (3.5-5.1); Sodium Level 142 mmol/L (136-145)
[2018-10-19 06:43] LABS: Scan Indicated on CBC? Y/N NO
[2018-10-19 07:11] LABS: Bedside Glucose 122 mg/dL (70-110)
--- NOTE | 2018-10-19 08:03 | NURSING ---
Heparin drip stopped at 0800 10/19/18
[2018-10-19] MEDS: Ondansetron 4 MG/2 ML Vial IV ×2 (08:04→22:20)
[2018-10-19] MEDS: 0.9% NaCl Peripheral Flush Adult/Peds IV ×2 (08:04→22:21)
[2018-10-19 08:29] LABS: Partial Thromboplast Time 43.9 Seconds (24.1-36.2)
--- NOTE | 2018-10-19 09:20 | PCM.CONS.C ---
Problem List (1) NSTEMI (non-ST elevated myocardial infarction) Status: Acute (2) Depression Status: Chronic Reason for Consult Date of Consultation: 10/19/18 Reason for Consultation: Unstable angina, non-STEMI, hypertension, hyperlipidemia, type 1 diabetes, end-stage renal disease History of Present Illness: The patient is a 48 year old M -[place] gentleman with a history of hypertension, hypercholesterolemia, type 1 diabetes diagnosed at age 22, progressed to end-stage renal disease on hemodialysis q. Friday and Friday approximately 2 years ago. He has no previous known coronary artery disease no previous catheterization, no previous myocardial infarction. He is a non-smoker. Patient went to [facility] on Friday with his niece, and soon after that developed nausea, vomiting, diarrhea, and a generalized feeling of unwellness. Patient developed nausea and vomiting as well but no chest pain or angina. At the prodding of his sister he came to the emergency room yesterday with nausea and vomiting and the patient surreptitiously underwent a troponin analysis which was found to be abnormal. Patient was given baby aspirin, Plavix, and medically managed on the floor. He did not complain of anginal symptoms. His peak troponin thus far is 2.44. His EKG showed normal sinus rhythm with peaked anterior T wave which may be due to hyperkalemia versus ischemia. Patient denies any exertional symptoms or difficulty during his dialysis runs. In addition the patient underwent toe removal about 3 years ago and his right lower extremity and is awaiting a prosthesis. To protect against further damage patient has a cast on his right lower extremity awaiting his prosthesis. He is attempting to get on the transplant list. [] Past Medical History Allergies/Adverse Reactions: Allergies calcium [From PhosLo] Allergy (Verified 10/18/18 10:59) Hives Home Medications: Ambulatory Orders Medication Instructions Recorded Hydralazine HCl 100 mg PO TID 07/06/17 Insulin Detemir [Levemir (BKC)] 10 units SC QHS 07/06/17 Insulin Detemir [Levemir (BKC)] 13 units SC DAILY 07/06/17 Latanoprost 0.005% [Xalatan 1 drp EACH EYE QHS 07/06/17 Opthalmic] Lisinopril [Zestril] 40 mg PO DAILY 07/06/17 Metoprolol Tartrate 25 mg PO QHS 07/06/17 Metoprolol Tartrate 37.5 mg PO DAILY 07/06/17 Sevelamer Carbonate [Renvela] 1,600 mg PO TIDCM 07/06/17 Simvastatin 40 mg PO QHS 07/06/17 Minoxidil [Loniten] 2.5 mg PO DAILY 10/18/18 Past Medical History (Chronic Problems): Chronic Problems (Last Reviewed 10/18/18 @ 15:24 by Jenaro Gant DO) Chronic kidney disease (Chronic) stage 3 Depression (Chronic) Hyperlipidemia (Chronic) Delayed wound healing (Chronic) Ulcer of right foot with fat layer exposed (Chronic) History of iron deficiency (Chronic) Anemia due to chronic kidney disease (Chronic) HTN (hypertension) (Chronic) Hypomagnesemia (Chronic) Diabetes mellitus type 1 (Chronic) ESRD (end stage renal disease) on dialysis (Chronic) Diabetic neuropathy (Chronic) 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 Miranda Peripheral vascular disease (Chronic) Glaucoma (Chronic) Diabetes mellitus with neuropathy (Chronic) Microcytic anemia (Chronic) persists despite iron supplementation, possible alpha thalasemia Benign essential hypertension (Chronic) Surgical History: - - transmetatarsal amputation right forefoot December 2015, right great toe amputation Feb 2014. LUE fistula - *Family History Maternal Family History: Family History (Last Reviewed 10/18/18 @ 15:25 by Jenaro Gant DO) Sister Heart disease Uncle Colon cancer History Items: Diabetes, No pertinent history Paternal Family History: Family History (Last Reviewed 10/18/18 @ 15:25 by Jenaro Gant DO) Sister Heart disease Uncle Colon cancer History Items: Diabetes, No pertinent history Smoking Status: Never smoker Tobacco Use: Non-smoker Review of Systems - Review of Systems General: Denies: Fever, Night Sweats, Fatigue Cardiovascular: Denies: Chest Discomfort, Shortness of Breath, Orthopnea, PND, Peripheral Edema, Palpitations, Lightheadedness, Dizziness, Near Syncope, Syncope Respiratory: Reports: Cough. Denies: Sputum Production, Hemoptysis Gastrointestinal: Reports: Nausea, Emesis, Diarrhea. Denies: Hematemesis, Hematochezia, Melena Genitourinary: Denies: Dysuria, Hematuria Skin: Denies: Rash Subjectve: Patient laying in bed, no acute distress. Objective: Vital Signs Temp Pulse Resp BP Pulse Ox 97.9 F 78 18 158/94 H 98 10/19/18 08:10 10/19/18 08:10 10/19/18 08:10 10/19/18 08:10 10/19/18 08:10 Oxygen Delivery Method Room Air Weight: 141 lb 12.116 oz Body Mass Index (BMI) 17.8 Finger Stick Blood Glucose 370 Intake and Output for Last 24 Hours 10/17/18 10/18/18 10/19/18 23:59 23:59 23:59 Intake Total 469.2 / 469.2 Balance 469.2 / 469.2 General: Awake, Alert, Oriented x 3 HEENT: PERRL, EOMI, Sclera Non Icteric Neck: Supple, Good ROM, No Lymph Node Enlargement Lungs: Clear to auscultation Cardiovascular: Regular Rhythm, Normal S1, Normal S2, No Murmurs, No Rubs, No Gallops Vascular: No Carotid Bruits, Normal Femoral Pulses, Normal Radial Pulses, Normal Dorsalis Pedal Pulse, Normal Posterior Tibial Pulses Abdomen: Bowel Sounds Present, Soft, Non Tender, No HSM, No Organomegaly Extremities: No Cyanosis, No Clubbing, No edema Neurological: No Focal Motor or Sensory Deficit 10/18/18 11:25: PT 13.8, INR 1.1 10/18/18 11:35: WBC 4.8, RBC 5.46, Hgb 12.4 L, Hct 37.9 L, MCV 69.4 L, MCH 22.7 L, MCHC 32.7, RDW 15.4 H, RDW Differential 39.3, Plt Count 117 L, MPV 10.3, Immature Gran % (Auto) 0.200, Neut % (Auto) 83.1 H, Lymph % (Auto) 9.8 L, [place] % (Auto) 6.7, Eos % (Auto) 0.0, Baso % (Auto) 0.2, Absolute Neuts (auto) 4.0, Total Counted Not Reportable 10/18/18 11:35: Sodium 139, Potassium 3.8, Chloride 97 L, Carbon Dioxide 29.0, Anion Gap 13, BUN 60 H, Creatinine 9.47 H*, Est GFR (MDRD) Af Amer 8 L, Est GFR (MDRD) Non-Af 6 L, BUN/Creatinine Ratio 6.3 L, Glucose 349 H, Calcium 8.7, Phosphorus 3.2, Magnesium 3.2 H, Troponin I 1.840 H* 10/18/18 11:35: Lactic Acid 3.8 H 10/18/18 11:35: Total Bilirubin 0.60, Direct Bilirubin 0.15 10/18/18 11:35: APTT 30.3 10/18/18 11:40: VBG pH 7.52 H, VBG pO2 23 L, VBG O2 Sat (Calc) 49 L, VBG O2 Content 31, VBG Base Excess 7 H 10/18/18 16:03: Lactic Acid 2.0 10/18/18 16:03: Troponin I 2.160 H* 10/18/18 20:00: Troponin I 2.290 H* 10/18/18 20:00: APTT 76.2 H 10/18/18 22:00: Troponin I 2.440 H* 10/19/18 02:00: APTT 54.9 H 10/19/18 05:15: Sodium 142, Potassium 3.2 L, Chloride 99, Carbon Dioxide 32.0, Anion Gap 11, BUN 65 H, Creatinine 10.30 H*, Est GFR (MDRD) Af Amer 7 L, Est GFR (MDRD) Non-Af 6 L, BUN/Creatinine Ratio 6.3 L, Glucose 103, Calcium 8.1 L 10/19/18 05:15: WBC 4.7, RBC 4.65, Hgb 10.7 L, Hct 32.5 L, MCV 69.9 L, MCH 23.0 L, MCHC 32.9, RDW 15.4 H, RDW Differential 38.6, Plt Count 112 L, MPV 10.4 10/19/18 05:15: PT 14.8, INR 1.2 10/19/18 08:10: APTT 43.9 H Rhythm: EKG: ECHO: Stress Test: Cardiac Cath: PCI: CT Surgery: Holter monitor: EPS: PPM: CXR: Chest CT Scan: Assessment/Plan 1. Non-STEMI: The patient presents with atypical non-chest pain symptoms but nausea and vomiting which may be an anginal equivalent in this diabetic dialysis patient. He denies any exertional anginal symptoms and his peak troponin is 2.44, which may be artificially elevated given his end-stage renal disease. I recommend the patient continue baby aspirin 81 mg a day, be loaded with Plavix 300 mg x 1 followed by 75 mg a day, obtain a fasting lipid profile, and proceed with left heart catheterization to define his coronary anatomy. Should the patient have significant multivessel coronary disease he may benefit from multivessel bypass surgery given his risk factors versus angioplasty. If the patient has no significant coronary disease he will be deemed a non-STEMI and possibly due to demand ischemia and given his nausea and vomiting. In addition I recommend he undergo a 2D echo with Doppler to define his LV function, valvular status and pulmonary pressures. Would recommend continuing metoprolol and IV heparin until his catheterization and at which time we will stop his IV heparin drip. Patient would also benefit from CHRIS inhibitor or ARB. He will undergo hemodialysis at the conclusion of his catheterization. 2. End-stage renal disease: The patient has not had any change anginal symptoms during dialysis runs, and he is attempting to get on the transplant list for renal transplant. Would not recommend closure of any of his arterial sites in order to preserve his anatomy and avoid infection. In addition he is too thin for closure devices anyhow. 3. Hyperlipidemia: Recommend obtaining a fasting lipid profile. Recommend LDL reduction less than 70 at least. 4. Thank you very much for the opportunity to participate in the cardiac care of your patient. Consultation time took place between 730 and 8 AM. Code Visit Inpatient E&M: 50627 Init Hosp L2
[2018-10-19 09:54] LABS: Cholesterol 117 mg/dL (200); High Density Lipoprotein 51 mg/dL; Triglycerides 58 mg/dL; Very Low Density Lipoprotein 12 mg/dL (5-40)
--- NOTE | 2018-10-19 10:22 | NURSING ---
This RN called to give report to yfn Albrecht RN.
--- NOTE | 2018-10-19 10:30 | EKG12_ITS ---
Test Reason : AM Blood Pressure : / mmHG Vent. Rate : 088 BPM Atrial Rate : 088 BPM P-R Int : 154 ms QRS Dur : 088 ms QT Int : 420 ms P-R-T Axes : 081 -05 071 degrees QTc Int : 508 ms Normal sinus rhythm Septal infarct , age undetermined Prolonged QT Abnormal ECG Confirmed by KAILA MENDEZ, PRAVEENA ([id number]), editorial cartoonist ALISON RHODES ([id number]) on 10/21/2018 2:09:54 PM Referred By: Confirmed By:PRAVEENA BRIGHT MD
--- NOTE | 2018-10-19 10:36 | CL.I_ITS ---
Patient Name: THOM PASCUAL Study Date: 10/19/2018 Performing: Keyshawn Mcghee MD Ht: 75.19 inches 191 cm : 1970 Wt: 141.1 lbs 64 kg Age: 48 Gender: male BSA: 1.9 PROCEDURE(S) PERFORMED [id number]/COR/LV [id number] W OR WO PTCA, SINGLE CORONARY ARTERY CLINICAL PROFILE AND CO-MORBIDITIES Indications: ACS > 24 hrs, New Onset Angina <= 2 months, Suspected CAD Heart Failure: None Stress/Imaging Stress/Image Study Performed: No Angina Classification Anginal Classification w/in 2 Weeks: No symptoms CAD Presentations: Unstable angina. Non-STEMI. Symptom onset Date/Time: 10/16/2018 Time Not Availa ble Comorbidities/Risk Factors: Hypertension Dyslipidemia Currently On Dialysis Diabetes Mellitus: Diabetes Therapy: Insulin CONCLUSIONS Normal LV size, wall motion,and systolic function Non obstructive coronary arteries Single vessel CAD of the proximal LAD Successful PTCA/JOE proximal LAD with a 3.5 x 32 Promus Synergy stent; post dilated with a 4.0 x 12 N C Balloon at 14 alfred; 75%-->0%, no dissection. RECOMMENDATIONS Referred for immediate PCI Medical management of mid LAD and mid RCA. Highly recommend quitting all tobacco products Follow up with primary lead ingot molder Risk factor modification ASA Indefinitley Plavix for at least 12 months Routine post interventional care Refer for Outpatient Cardiac Rehab Manual sheath removal per protocol Follow up with Dr. Mcghee Manual sheath removal. Medical management of mid LAD and mid RCA lesions. DESCRIPTION OF PROCEDURE The patient arrived to the procedure lab. The risks and benefits of the procedure as well as a full d escription of our services here and lack of surgical backup were fully explained to the patient and/o r their significant other prior to the catheterization. The Timeout was completed, verifying the zuleika ect patient and procedure. The patient's procedural site was prepped and draped in the usual fashion. Local anesthetic was given subcutaneously to right groin region with Lidocaine 2%. Using a modified Seldinger technique, arterial access was obtained via the right femoral artery, a 4Fr sheath was inse rted. Left Coronary Artery selective angiography was performed in multiple views using a 4 Fr. JL5 c atheter. Right Coronary Artery selective angiography was then performed in multiple views using a 4 F r. 3DRC catheter. Left Ventriculography was performed in [place] projection using a 4 Fr. Pigtail cathete r. LV to AO pullback pressures were then recordedThe images were reviewed and options discussed. A decision was then made to proceed with an Intervention, IVUS or other adjunct procedure. Arterial sheath was exchanged for a 6 Fr Sheath. 3.5 EBU Guide catheter was inserted and engaged into the LCA. BMW Guide wire was advanced to the LAD. 2x12 Emerge Balloon catheter was inserted. Ball oon catheter was advanced across lesion in the LAD, proximal. PTCA balloon inflated at 8 atms for 8 s ecs. PTCA balloon inflated at 8 atms for 10 secs. 3.5x32 Synergy Drug Eluting stent was inserted. Bill g Eluting stent was advanced across the lesion in the LAD, proximal. Angiogram performed post stent d eployment. 4x12 NC Emerge Balloon catheter was inserted. Balloon catheter was inserted post stent. An giogram performed post balloon dilatation. 4x12 NC Emerge Balloon catheter was reinserted Angiogram p erformed post balloon dilatation. The arterial sheath was sutured in place and capped CORONARY ANGIOGRAPHY DOMINANCE: Right Dominant LEFT HEART ASSESSMENT Left Ventricular Ejection Fraction: by LV Gram 75 % Normal Left Ventricular systolic function LVEDP: 9 mmHg Normal Left Ventricular End Diastolic Pressure Normal LV wall motion LEFT MAIN: Angiographically normal LEFT ANTERIOR DESCENDING ARTERY: PROX LAD: 75 % Stenosis, Mild calcification MID LAD: Mild luminal irregularities less than 30%, Moderate calcification CIRCUMFLEX ARTERY: Mild luminal irregularities less than 30% RIGHT CORONARY ARTERY: 40 % Stenosis INTERVENTION INFORMATION LESION SITE: LAD (Proximal) Lesion Complexity: High/C, lesion at bifurcation: No, thrombus present: No, culprit lesion: Yes Pre Stenosis: 75 % Pre intervention MIN flow: 3 PROCEDURE: Drug Eluting Stent with pre and post dilatation Post Stenosis: 0 % Post intervention MIN flow: 3 Lesion Devices: [place] .014 BMW [place] Straight 190cm Medtronic 6 Fr EBU3.5 100cm Guide Catheter Bo Sci EMERGE MR 2.00x12 BALLOON Bo Sci Synergy MR JOE 3.50x32 Bo Sci NC EMERGE MR 4.00x12 BALLOON COMPLICATIONS No Complications PROCEDURE MEDICATIONS Versed 1 mg IV Oxygen: 2 L/min via nasal cannula Heparin 6000 unit(s) IV 10/19/2018 10:00:50 Nitro 200 mcg IC 10/19/2018 10:02:22 Nitro 200 mcg IC 10/19/2018 10:02:22 Nitro glycerin 25mg / 250ml D5W @ 5 mcg/min IV started 10/19/2018 10:12:12 SUMMARY OF HEMODYNAMIC DATA Time AIR REST ECG 09:27:35 AO 184/80 (120) SA 09:49:21 LV 168/-20, 9 09:56:17 LV 163/-18, 9 09:56:23 LVp 163/-21, 6 09:56:30 AOp 146/50 (96) 09:56:35 AO 98/53 (73) 10:12:39 Signed By Keyshawn Mcghee MD On 10/19/2018 10:35:19 Keyshawn Mcghee MD
--- NOTE | 2018-10-19 10:55 | NURSING ---
This RN called report to Apoorva SHORTHAND TEACHER
--- NOTE | 2018-10-19 10:56 | PCM.CONS.R ---
Problem List (1) ESRD (end stage renal disease) on dialysis Status: Chronic Consultation - Renal PCP/ Referring MD: Requesting physician: [] Primary care physician: Peter Coronado MD - History of Present Illness History of Present Illness: The patient is a 48 year old M past medical history of end-stage disease on Friday . Patient goes to [facility] center patient presented with nausea vomiting day. Troponin to be positive at 2.4 .cardiology was consulted and patient was taken to the cardiac cath this morning . Patient had stent placed in 1 of his coronary arteries . Renal team was consulted for end-stage renal disease care . Patient denies any nausea vomiting . No shortness of breath today . He said he just feeling anxious No chest pain Is a nitroglycerin drip at 10 MCG per minute. Review of system : 12 system review is negative [] - Allergies Allergies: Allergies calcium [From PhosLo] Allergy (Verified 10/18/18 10:59) Hives - Current Medications Current Medications: Current Medications Acetaminophen (Tylenol) 650 mg PO Q6H PRN PRN PRN Reason: Mild pain 1-3/Temp > 100.7 F Aspirin (Ecotrin) 81 mg PO DAILY@0800 [facility] Last Admin: 10/19/18 05:55 Dose: 81 mg Atorvastatin Calcium (Lipitor) 40 mg PO QHS [facility] Last Admin: 10/18/18 22:10 Dose: 40 mg Atropine Sulfate () 0.5 mg IV UD PRN PRN Reason: HR <50 bpm Clopidogrel Bisulfate (Plavix) 75 mg PO DAILY [facility] Last Admin: 10/19/18 05:56 Dose: 75 mg Dextrose (D50w Syringe) 0 gm IV X1 PRN; Protocol PRN Reason: Hypoglycemia Glucagon () 1 mg IM .X1 PRN PRN Reason: Hypoglycemia Heparin Sodium (Beef Lung) (Heparin 500 Unit/5 Ml (100/Ml)) 500 unit IV UD PRN PRN Reason: HEPARIN FLUSH Heparin Sodium (Porcine) (Heparin Na) 0 unit IV UD PRN; Protocol Hydralazine HCl (Apresoline) 100 mg PO TID [facility] Last Admin: 10/19/18 05:55 Dose: 100 mg Heparin Sodium/Dextrose () 25,000 units in 250 mls @ 10 mls/hr IV .Q25H AMBER; Protocol Last Admin: 10/18/18 16:43 Dose: 10 mls/hr Nitroglycerin/Dextrose () 250 mls @ 3 mls/hr CONT INF .[id number] [facility] Insulin Glargine (Lantus (Bkc)) 10 units SC QHS [facility] Last Admin: 10/18/18 22:11 Dose: 10 u Insulin Glargine (Lantus (Bkc)) 13 units SC DAILY [facility] Insulin Human Lispro (Humalog Kwikpen ([facility])) 0 unit SQ TIDAC [facility]; Protocol Last Admin: 10/19/18 06:51 Dose: Not Given Labetalol HCl (Trandate) 5 mg IV X1 PRN PRN Reason: SBP > 160 when pulling sheath Stop: 10/21/18 10:25 Latanoprost (Xalatan Opthalmic) [facility] Last Admin: 10/18/18 22:11 Dose: 1 drop Lisinopril (Zestril) 40 mg PO DAILY [facility] Last Admin: 10/19/18 05:56 Dose: 40 mg Metoprolol Tartrate (Lopressor (Beta Ana Rosa)) 37.5 mg PO DAILY [facility] Last Admin: 10/19/18 05:55 Dose: 37.5 mg Metoprolol Tartrate (Lopressor (Beta Ana Rosa)) 25 mg PO QHS [facility] Last Admin: 10/18/18 22:10 Dose: 25 mg Minoxidil (Loniten) 2.5 mg PO DAILY [facility] Last Admin: 10/19/18 05:57 Dose: 2.5 mg Nitroglycerin (Nitrostat) 0.4 mg SUBLINGUAL Q5M PRN PRN Reason: CARDIAC/CHEST PAIN Ondansetron HCl (Zofran) 4 mg IV Q8H PRN PRN PRN Reason: NAUSEA/VOMITING Last Admin: 10/19/18 08:04 Dose: 4 mg Oxycodone HCl (Oxyir) 5 mg PO Q4H PRN PRN PRN Reason: Moderate Pain (4-6/10) Sevelamer Carbonate (Renvela) 1,600 mg PO TIDCM [facility] Last Admin: 10/18/18 16:44 Dose: 1,600 mg Sodium Chloride () 5 - 15 ml IV UD PRN PRN Reason: SALINE FLUSH Last Admin: 10/19/18 08:04 Dose: 10 ml Sodium Chloride () 500 ml IV BOLUS PRN PRN Reason: VASO-VAGAL PROTOCOL - Past Medical History Past Medical History (Chronic Problems): Chronic Problems (Last Reviewed 10/18/18 @ 15:24 by Jenaro Gant DO) Chronic kidney disease (Chronic) stage 3 Depression (Chronic) Hyperlipidemia (Chronic) Delayed wound healing (Chronic) Ulcer of right foot with fat layer exposed (Chronic) History of iron deficiency (Chronic) Anemia due to chronic kidney disease (Chronic) HTN (hypertension) (Chronic) Hypomagnesemia (Chronic) Diabetes mellitus type 1 (Chronic) ESRD (end stage renal disease) on dialysis (Chronic) Diabetic neuropathy (Chronic) 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 Miranda Peripheral vascular disease (Chronic) Glaucoma (Chronic) Diabetes mellitus with neuropathy (Chronic) Microcytic anemia (Chronic) persists despite iron supplementation, possible alpha thalasemia Benign essential hypertension (Chronic) - Past Surgical History Surgical History: - - transmetatarsal amputation right forefoot December 2015, right great toe amputation Feb 2014. LUE fistula - Social History Smoking Status: Never smoker - Family History Maternal Family History: Family History (Last Reviewed 10/18/18 @ 15:25 by Jenaro Gant DO) Sister Heart disease Uncle Colon cancer History Items: Diabetes, No pertinent history Paternal Family History: Family History (Last Reviewed 10/18/18 @ 15:25 by Jenaro Gant DO) Sister Heart disease Uncle Colon cancer History Items: Diabetes, No pertinent history Patient Problems: Active and Suspected Problems (Last Reviewed 10/18/18 @ 15:24 by Jenaro Gant DO) NSTEMI (non-ST elevated myocardial infarction) (Acute) - Physical Exam HEENT: Atraumatic Oral: Moist Mucosa Neck: Supple, No JVD Lungs: Clear to auscultation Cardiovascular: Regular rate, Regular Rhythm, Normal S1, Normal S2 Abdomen: Bowel Sounds Present, Soft, Non Tender, Non-Distended Extremities: No clubbing, No cyanosis, No edema Skin: No rashes Musculoskeletal: No Tenderness to Palpation of Joints or Extremities Lymphatic: No Cervical, Supraclavicular, or Inguinal Adenopathy Neurological: Cranial nerves II-XII grossly intact, Neuro grossly intact Psych/Mental Status: Appropriate Vital Signs Temp Pulse Resp BP Pulse Ox 97.9 F 78 18 158/94 H 98 10/19/18 08:10 10/19/18 08:10 10/19/18 08:10 10/19/18 08:10 10/19/18 08:10 Oxygen Delivery Method Room Air Weight: 64.3 kg Body Mass Index (BMI) 17.8 Finger Stick Blood Glucose 370 Intake and Output for Last 24 Hours 10/17/18 10/18/18 10/19/18 23:59 23:59 23:59 Intake Total 469.2 / 469.2 Balance 469.2 / 469.2 Laboratory Tests Past 24 Hrs 10/18/18 10/18/18 10/18/18 11:25 11:35 11:35 WBC 4.8 RBC 5.46 Hgb 12.4 L Hct 37.9 L MCV 69.4 L MCH 22.7 L MCHC 32.7 RDW 15.4 H RDW Differential 39.3 Plt Count 117 L MPV 10.3 Immature Gran % (Auto) 0.200 Neut % (Auto) 83.1 H Lymph % (Auto) 9.8 L [place] % (Auto) 6.7 Eos % (Auto) 0.0 Baso % (Auto) 0.2 Absolute Neuts (auto) 4.0 Absolute Lymphs (auto) 0.47 L Total Counted Not Reportable PT 13.8 INR 1.1 APTT Specimen Type Sample Site VBG pH VBG pO2 VBG O2 Sat (Calc) VBG O2 Content VBG Base Excess POC Mix VBG pCO2 Pt Tmp O2 Delivery Device Blood Gas Notified Whom Blood Gas Notified Time Sodium 139 Potassium 3.8 Chloride 97 L Carbon Dioxide 29.0 Anion Gap 13 BUN 60 H Creatinine 9.47 H* Estim Creat Clear Calc 9.58 Est GFR (MDRD) Af Amer 8 L Est GFR (MDRD) Non-Af 6 L BUN/Creatinine Ratio 6.3 L Glucose 349 H Lactic Acid Calcium 8.7 Phosphorus 3.2 Magnesium 3.2 H Total Bilirubin Direct Bilirubin AST ALT Alkaline Phosphatase Troponin I 1.840 H* Total Protein Albumin Globulin Triglycerides Cholesterol LDL Cholesterol VLDL Cholesterol HDL Cholesterol Acetone Level 10/18/18 10/18/18 10/18/18 11:35 11:35 11:35 WBC RBC Hgb Hct MCV MCH MCHC RDW RDW Differential Plt Count MPV Immature Gran % (Auto) Neut % (Auto) Lymph % (Auto) [place] % (Auto) Eos % (Auto) Baso % (Auto) Absolute Neuts (auto) Absolute Lymphs (auto) Total Counted PT INR APTT Specimen Type Sample Site VBG pH VBG pO2 VBG O2 Sat (Calc) VBG O2 Content VBG Base Excess POC Mix VBG pCO2 Pt Tmp O2 Delivery Device Blood Gas Notified Whom Blood Gas Notified Time Sodium Potassium Chloride Carbon Dioxide Anion Gap BUN Creatinine Estim Creat Clear Calc Est GFR (MDRD) Af Amer Est GFR (MDRD) Non-Af BUN/Creatinine Ratio Glucose Lactic Acid 3.8 H Calcium Phosphorus Magnesium Total Bilirubin 0.60 Direct Bilirubin 0.15 AST 25 ALT 20 Alkaline Phosphatase 132 H Troponin I Total Protein 8.6 H Albumin 4.4 Globulin 4.2 Triglycerides Cholesterol LDL Cholesterol VLDL Cholesterol HDL Cholesterol Acetone Level NEGATIVE 10/18/18 10/18/18 10/18/18 11:35 11:40 16:03 WBC RBC Hgb Hct MCV MCH MCHC RDW RDW Differential Plt Count MPV Immature Gran % (Auto) Neut % (Auto) Lymph % (Auto) [place] % (Auto) Eos % (Auto) Baso % (Auto) Absolute Neuts (auto) Absolute Lymphs (auto) Total Counted PT INR APTT 30.3 Specimen Type BLAKE Sample Site OTHER VBG pH 7.52 H VBG pO2 23 L VBG O2 Sat (Calc) 49 L VBG O2 Content 31 VBG Base Excess 7 H POC Mix VBG pCO2 Pt Tmp 37.3 L O2 Delivery Device Room Air Blood Gas Notified Whom ED Blood Gas Notified Time 1139 Sodium Potassium Chloride Carbon Dioxide Anion Gap BUN Creatinine Estim Creat Clear Calc Est GFR (MDRD) Af Amer Est GFR (MDRD) Non-Af BUN/Creatinine Ratio Glucose Lactic Acid 2.0 Calcium Phosphorus Magnesium Total Bilirubin Direct Bilirubin AST ALT Alkaline Phosphatase Troponin I Total Protein Albumin Globulin Triglycerides Cholesterol LDL Cholesterol VLDL Cholesterol HDL Cholesterol Acetone Level 10/18/18 10/18/18 10/18/18 16:03 20:00 20:00 WBC RBC Hgb Hct MCV MCH MCHC RDW RDW Differential Plt Count MPV Immature Gran % (Auto) Neut % (Auto) Lymph % (Auto) [place] % (Auto) Eos % (Auto) Baso % (Auto) Absolute Neuts (auto) Absolute Lymphs (auto) Total Counted PT INR APTT 76.2 H Specimen Type Sample Site VBG pH VBG pO2 VBG O2 Sat (Calc) VBG O2 Content VBG Base Excess POC Mix VBG pCO2 Pt Tmp O2 Delivery Device Blood Gas Notified Whom Blood Gas Notified Time Sodium Potassium Chloride Carbon Dioxide Anion Gap BUN Creatinine Estim Creat Clear Calc Est GFR (MDRD) Af Amer Est GFR (MDRD) Non-Af BUN/Creatinine Ratio Glucose Lactic Acid Calcium Phosphorus Magnesium Total Bilirubin Direct Bilirubin AST ALT Alkaline Phosphatase Troponin I 2.160 H* 2.290 H* Total Protein Albumin Globulin Triglycerides Cholesterol LDL Cholesterol VLDL Cholesterol HDL Cholesterol Acetone Level 10/18/18 10/19/18 10/19/18 22:00 02:00 05:15 WBC RBC Hgb Hct MCV MCH MCHC RDW RDW Differential Plt Count MPV Immature Gran % (Auto) Neut % (Auto) Lymph % (Auto) [place] % (Auto) Eos % (Auto) Baso % (Auto) Absolute Neuts (auto) Absolute Lymphs (auto) Total Counted PT INR APTT 54.9 H Specimen Type Sample Site VBG pH VBG pO2 VBG O2 Sat (Calc) VBG O2 Content VBG Base Excess POC Mix VBG pCO2 Pt Tmp O2 Delivery Device Blood Gas Notified Whom Blood Gas Notified Time Sodium 142 Potassium 3.2 L Chloride 99 Carbon Dioxide 32.0 Anion Gap 11 BUN 65 H Creatinine 10.30 H* Estim Creat Clear Calc 7.80 Est GFR (MDRD) Af Amer 7 L Est GFR (MDRD) Non-Af 6 L BUN/Creatinine Ratio 6.3 L Glucose 103 Lactic Acid Calcium 8.1 L Phosphorus Magnesium Total Bilirubin Direct Bilirubin AST ALT Alkaline Phosphatase Troponin I 2.440 H* Total Protein Albumin Globulin Triglycerides Cholesterol LDL Cholesterol VLDL Cholesterol HDL Cholesterol Acetone Level 10/19/18 10/19/18 10/19/18 05:15 05:15 05:15 WBC 4.7 RBC 4.65 Hgb 10.7 L Hct 32.5 L MCV 69.9 L MCH 23.0 L MCHC 32.9 RDW 15.4 H RDW Differential 38.6 Plt Count 112 L MPV 10.4 Immature Gran % (Auto) Neut % (Auto) Lymph % (Auto) [place] % (Auto) Eos % (Auto) Baso % (Auto) Absolute Neuts (auto) Absolute Lymphs (auto) Total Counted PT 14.8 INR 1.2 APTT Specimen Type Sample Site VBG pH VBG pO2 VBG O2 Sat (Calc) VBG O2 Content VBG Base Excess POC Mix VBG pCO2 Pt Tmp O2 Delivery Device Blood Gas Notified Whom Blood Gas Notified Time Sodium Potassium Chloride Carbon Dioxide Anion Gap BUN Creatinine Estim Creat Clear Calc Est GFR (MDRD) Af Amer Est GFR (MDRD) Non-Af BUN/Creatinine Ratio Glucose Lactic Acid Calcium Phosphorus Magnesium Total Bilirubin Direct Bilirubin AST ALT Alkaline Phosphatase Troponin I Total Protein Albumin Globulin Triglycerides 58 Cholesterol 117 LDL Cholesterol 54 VLDL Cholesterol 12 HDL Cholesterol 51 Acetone Level 10/19/18 08:10 WBC RBC Hgb Hct MCV MCH MCHC RDW RDW Differential Plt Count MPV Immature Gran % (Auto) Neut % (Auto) Lymph % (Auto) [place] % (Auto) Eos % (Auto) Baso % (Auto) Absolute Neuts (auto) Absolute Lymphs (auto) Total Counted PT INR APTT 43.9 H Specimen Type Sample Site VBG pH VBG pO2 VBG O2 Sat (Calc) VBG O2 Content VBG Base Excess POC Mix VBG pCO2 Pt Tmp O2 Delivery Device Blood Gas Notified Whom Blood Gas Notified Time Sodium Potassium Chloride Carbon Dioxide Anion Gap BUN Creatinine Estim Creat Clear Calc Est GFR (MDRD) Af Amer Est GFR (MDRD) Non-Af BUN/Creatinine Ratio Glucose Lactic Acid Calcium Phosphorus Magnesium Total Bilirubin Direct Bilirubin AST ALT Alkaline Phosphatase Troponin I Total Protein Albumin Globulin Triglycerides Cholesterol LDL Cholesterol VLDL Cholesterol HDL Cholesterol Acetone Level POC Glucose 10/19/18 10/18/18 10/18/18 06:48 21:56 16:28 POC Glucose 122 H 160 H 354 H 10/18/18 11:08 POC Glucose 370 H Assessment/Plan All Active Problems (Last Reviewed 10/18/18 @ 15:24 by Jenaro Gant DO) Problem with dialysis access (Acute) NSTEMI (non-ST elevated myocardial infarction) (Acute) Malnutrition (Acute) Diabetic foot infection (Acute) Hyponatremia (Acute) Acute on chronic anemia (Acute) Cellulitis of right foot (Acute) Amputated great toe of right foot (Resolved) Hammer toe of right foot (Resolved) Malnutrition (Resolved) Right forefoot osteomyelitis (Resolved) 1-end-stage renal disease . On Friday. Will arrange hemodialysis today as per the chronic order. Dialysis access: Left upper extremity AV fistula 2-anemia hemoglobin more than 10.noted for PR[facility]EK for now. 3-non-ST FL. Status post cardiac cath with stent placement. Will defer to the cardiology team. 4-hypertension: Uncontrolled. Patient is a nitroglycerin drip. Will defer management to the cardiology team. Thank you for the consult. Renal team will continue to follow. Kirk Celeste MD
--- NOTE | 2018-10-19 10:59 | CON.PCM_ITS ---
Problem List (1) ESRD (end stage renal disease) on dialysis Status: Chronic Consultation - Renal PCP/ Referring MD: Requesting physician: [] Primary care physician: Peter Coronado MD - History of Present Illness History of Present Illness: The patient is a 48 year old M past medical history of end-stage disease on Friday . Patient goes to [facility] center patient presented with nausea vomiting day. Troponin to be positive at 2.4 .cardiology was consulted and patient was taken to the cardiac cath this morning . Patient had stent placed in 1 of his coronary arteries . Renal team was consulted for end-stage renal disease care . Patient denies any nausea vomiting . No shortness of breath today . He said he just feeling anxious No chest pain Is a nitroglycerin drip at 10 MCG per minute. Review of system : 12 system review is negative [] - Allergies Allergies: Allergies calcium [From PhosLo] Allergy (Verified 10/18/18 10:59) Hives - Current Medications Current Medications: Current Medications Acetaminophen (Tylenol) 650 mg PO Q6H PRN PRN PRN Reason: Mild pain 1-3/Temp > 100.7 F Aspirin (Ecotrin) 81 mg PO DAILY@0800 [facility] Last Admin: 10/19/18 05:55 Dose: 81 mg Atorvastatin Calcium (Lipitor) 40 mg PO QHS [facility] Last Admin: 10/18/18 22:10 Dose: 40 mg Atropine Sulfate () 0.5 mg IV UD PRN PRN Reason: HR <50 bpm Clopidogrel Bisulfate (Plavix) 75 mg PO DAILY [facility] Last Admin: 10/19/18 05:56 Dose: 75 mg Dextrose (D50w Syringe) 0 gm IV X1 PRN; Protocol PRN Reason: Hypoglycemia Glucagon () 1 mg IM .X1 PRN PRN Reason: Hypoglycemia Heparin Sodium (Beef Lung) (Heparin 500 Unit/5 Ml (100/Ml)) 500 unit IV UD PRN PRN Reason: HEPARIN FLUSH Heparin Sodium (Porcine) (Heparin Na) 0 unit IV UD PRN; Protocol Hydralazine HCl (Apresoline) 100 mg PO TID [facility] Last Admin: 10/19/18 05:55 Dose: 100 mg Heparin Sodium/Dextrose () 25,000 units in 250 mls @ 10 mls/hr IV .Q25H AMBER; Protocol Last Admin: 10/18/18 16:43 Dose: 10 mls/hr Nitroglycerin/Dextrose () 250 mls @ 3 mls/hr CONT INF .[id number] [facility] Insulin Glargine (Lantus (Bkc)) 10 units SC QHS [facility] Last Admin: 10/18/18 22:11 Dose: 10 u Insulin Glargine (Lantus (Bkc)) 13 units SC DAILY [facility] Insulin Human Lispro (Humalog Kwikpen ([facility])) 0 unit SQ TIDAC [facility]; Protocol Last Admin: 10/19/18 06:51 Dose: Not Given Labetalol HCl (Trandate) 5 mg IV X1 PRN PRN Reason: SBP > 160 when pulling sheath Stop: 10/21/18 10:25 Latanoprost (Xalatan Opthalmic) [facility] Last Admin: 10/18/18 22:11 Dose: 1 drop Lisinopril (Zestril) 40 mg PO DAILY [facility] Last Admin: 10/19/18 05:56 Dose: 40 mg Metoprolol Tartrate (Lopressor (Beta Ana Rosa)) 37.5 mg PO DAILY [facility] Last Admin: 10/19/18 05:55 Dose: 37.5 mg Metoprolol Tartrate (Lopressor (Beta Ana Rosa)) 25 mg PO QHS [facility] Last Admin: 10/18/18 22:10 Dose: 25 mg Minoxidil (Loniten) 2.5 mg PO DAILY [facility] Last Admin: 10/19/18 05:57 Dose: 2.5 mg Nitroglycerin (Nitrostat) 0.4 mg SUBLINGUAL Q5M PRN PRN Reason: CARDIAC/CHEST PAIN Ondansetron HCl (Zofran) 4 mg IV Q8H PRN PRN PRN Reason: NAUSEA/VOMITING Last Admin: 10/19/18 08:04 Dose: 4 mg Oxycodone HCl (Oxyir) 5 mg PO Q4H PRN PRN PRN Reason: Moderate Pain (4-6/10) Sevelamer Carbonate (Renvela) 1,600 mg PO TIDCM [facility] Last Admin: 10/18/18 16:44 Dose: 1,600 mg Sodium Chloride () 5 - 15 ml IV UD PRN PRN Reason: SALINE FLUSH Last Admin: 10/19/18 08:04 Dose: 10 ml Sodium Chloride () 500 ml IV BOLUS PRN PRN Reason: VASO-VAGAL PROTOCOL - Past Medical History Past Medical History (Chronic Problems): Chronic Problems (Last Reviewed 10/18/18 @ 15:24 by Jenaro Gant DO) Chronic kidney disease (Chronic) stage 3 Depression (Chronic) Hyperlipidemia (Chronic) Delayed wound healing (Chronic) Ulcer of right foot with fat layer exposed (Chronic) History of iron deficiency (Chronic) Anemia due to chronic kidney disease (Chronic) HTN (hypertension) (Chronic) Hypomagnesemia (Chronic) Diabetes mellitus type 1 (Chronic) ESRD (end stage renal disease) on dialysis (Chronic) Diabetic neuropathy (Chronic) 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 Miranda Peripheral vascular disease (Chronic) Glaucoma (Chronic) Diabetes mellitus with neuropathy (Chronic) Microcytic anemia (Chronic) persists despite iron supplementation, possible alpha thalasemia Benign essential hypertension (Chronic) - Past Surgical History Surgical History: - - transmetatarsal amputation right forefoot December 2015, right great toe amputation Feb 2014. LUE fistula - Social History Smoking Status: Never smoker - Family History Maternal Family History: Family History (Last Reviewed 10/18/18 @ 15:25 by Jenaro Gant DO) Sister Heart disease Uncle Colon cancer History Items: Diabetes, No pertinent history Paternal Family History: Family History (Last Reviewed 10/18/18 @ 15:25 by Jenaro Gant DO) Sister Heart disease Uncle Colon cancer History Items: Diabetes, No pertinent history Patient Problems: Active and Suspected Problems (Last Reviewed 10/18/18 @ 15:24 by Jenaro Gant DO) NSTEMI (non-ST elevated myocardial infarction) (Acute) - Physical Exam HEENT: Atraumatic Oral: Moist Mucosa Neck: Supple, No JVD Lungs: Clear to auscultation Cardiovascular: Regular rate, Regular Rhythm, Normal S1, Normal S2 Abdomen: Bowel Sounds Present, Soft, Non Tender, Non-Distended Extremities: No clubbing, No cyanosis, No edema Skin: No rashes Musculoskeletal: No Tenderness to Palpation of Joints or Extremities Lymphatic: No Cervical, Supraclavicular, or Inguinal Adenopathy Neurological: Cranial nerves II-XII grossly intact, Neuro grossly intact Psych/Mental Status: Appropriate Vital Signs Temp Pulse Resp BP Pulse Ox 97.9 F 78 18 158/94 H 98 10/19/18 08:10 10/19/18 08:10 10/19/18 08:10 10/19/18 08:10 10/19/18 08:10 Oxygen Delivery Method Room Air Weight: 64.3 kg Body Mass Index (BMI) 17.8 Finger Stick Blood Glucose 370 Intake and Output for Last 24 Hours 10/17/18 10/18/18 10/19/18 23:59 23:59 23:59 Intake Total 469.2 / 469.2 Balance 469.2 / 469.2 Laboratory Tests Past 24 Hrs 10/18/18 10/18/18 10/18/18 11:25 11:35 11:35 WBC 4.8 RBC 5.46 Hgb 12.4 L Hct 37.9 L MCV 69.4 L MCH 22.7 L MCHC 32.7 RDW 15.4 H RDW Differential 39.3 Plt Count 117 L MPV 10.3 Immature Gran % (Auto) 0.200 Neut % (Auto) 83.1 H Lymph % (Auto) 9.[address] [place] % (Auto) 6.7 Eos % (Auto) 0.0 Baso % (Auto) 0.2 Absolute Neuts (auto) 4.0 Absolute Lymphs (auto) 0.47 L Total Counted Not Reportable PT 13.8 INR 1.1 APTT Specimen Type Sample Site VBG pH VBG pO2 VBG O2 Sat (Calc) VBG O2 Content VBG Base Excess POC Mix VBG pCO2 Pt Tmp O2 Delivery Device Blood Gas Notified Whom Blood Gas Notified Time Sodium 139 Potassium 3.8 Chloride 97 L Carbon Dioxide 29.0 Anion Gap 13 BUN 60 H Creatinine 9.47 H* Estim Creat Clear Calc 9.58 Est GFR (MDRD) Af Amer 8 L Est GFR (MDRD) Non-Af 6 L BUN/Creatinine Ratio 6.3 L Glucose 349 H Lactic Acid Calcium 8.7 Phosphorus 3.2 Magnesium 3.2 H Total Bilirubin Direct Bilirubin AST ALT Alkaline Phosphatase Troponin I 1.840 H* Total Protein Albumin Globulin Triglycerides Cholesterol LDL Cholesterol VLDL Cholesterol HDL Cholesterol Acetone Level 10/18/18 10/18/18 10/18/18 11:35 11:35 11:35 WBC RBC Hgb Hct MCV MCH MCHC RDW RDW Differential Plt Count MPV Immature Gran % (Auto) Neut % (Auto) Lymph % (Auto) [place] % (Auto) Eos % (Auto) Baso % (Auto) Absolute Neuts (auto) Absolute Lymphs (auto) Total Counted PT INR APTT Specimen Type Sample Site VBG pH VBG pO2 VBG O2 Sat (Calc) VBG O2 Content VBG Base Excess POC Mix VBG pCO2 Pt Tmp O2 Delivery Device Blood Gas Notified Whom Blood Gas Notified Time Sodium Potassium Chloride Carbon Dioxide Anion Gap BUN Creatinine Estim Creat Clear Calc Est GFR (MDRD) Af Amer Est GFR (MDRD) Non-Af BUN/Creatinine Ratio Glucose Lactic Acid 3.8 H Calcium Phosphorus Magnesium Total Bilirubin 0.60 Direct Bilirubin 0.15 AST 25 ALT 20 Alkaline Phosphatase 132 H Troponin I Total Protein 8.6 H Albumin 4.4 Globulin 4.2 Triglycerides Cholesterol LDL Cholesterol VLDL Cholesterol HDL Cholesterol Acetone Level NEGATIVE 10/18/18 10/18/18 10/18/18 11:35 11:40 16:03 WBC RBC Hgb Hct MCV MCH MCHC RDW RDW Differential Plt Count MPV Immature Gran % (Auto) Neut % (Auto) Lymph % (Auto) [place] % (Auto) Eos % (Auto) Baso % (Auto) Absolute Neuts (auto) Absolute Lymphs (auto) Total Counted PT INR APTT 30.3 Specimen Type BLAKE Sample Site OTHER VBG pH 7.52 H VBG pO2 23 L VBG O2 Sat (Calc) 49 L VBG O2 Content 31 VBG Base Excess 7 H POC Mix VBG pCO2 Pt Tmp 37.3 L O2 Delivery Device Room Air Blood Gas Notified Whom ED Blood Gas Notified Time 1139 Sodium Potassium Chloride Carbon Dioxide Anion Gap BUN Creatinine Estim Creat Clear Calc Est GFR (MDRD) Af Amer Est GFR (MDRD) Non-Af BUN/Creatinine Ratio Glucose Lactic Acid 2.0 Calcium Phosphorus Magnesium Total Bilirubin Direct Bilirubin AST ALT Alkaline Phosphatase Troponin I Total Protein Albumin Globulin Triglycerides Cholesterol LDL Cholesterol VLDL Cholesterol HDL Cholesterol Acetone Level 10/18/18 10/18/18 10/18/18 16:03 20:00 20:00 WBC RBC Hgb Hct MCV MCH MCHC RDW RDW Differential Plt Count MPV Immature Gran % (Auto) Neut % (Auto) Lymph % (Auto) [place] % (Auto) Eos % (Auto) Baso % (Auto) Absolute Neuts (auto) Absolute Lymphs (auto) Total Counted PT INR APTT 76.2 H Specimen Type Sample Site VBG pH VBG pO2 VBG O2 Sat (Calc) VBG O2 Content VBG Base Excess POC Mix VBG pCO2 Pt Tmp O2 Delivery Device Blood Gas Notified Whom Blood Gas Notified Time Sodium Potassium Chloride Carbon Dioxide Anion Gap BUN Creatinine Estim Creat Clear Calc Est GFR (MDRD) Af Amer Est GFR (MDRD) Non-Af BUN/Creatinine Ratio Glucose Lactic Acid Calcium Phosphorus Magnesium Total Bilirubin Direct Bilirubin AST ALT Alkaline Phosphatase Troponin I 2.160 H* 2.290 H* Total Protein Albumin Globulin Triglycerides Cholesterol LDL Cholesterol VLDL Cholesterol HDL Cholesterol Acetone Level 10/18/18 10/19/18 10/19/18 22:00 02:00 05:15 WBC RBC Hgb Hct MCV MCH MCHC RDW RDW Differential Plt Count MPV Immature Gran % (Auto) Neut % (Auto) Lymph % (Auto) [place] % (Auto) Eos % (Auto) Baso % (Auto) Absolute Neuts (auto) Absolute Lymphs (auto) Total Counted PT INR APTT 54.9 H Specimen Type Sample Site VBG pH VBG pO2 VBG O2 Sat (Calc) VBG O2 Content VBG Base Excess POC Mix VBG pCO2 Pt Tmp O2 Delivery Device Blood Gas Notified Whom Blood Gas Notified Time Sodium 142 Potassium 3.2 L Chloride 99 Carbon Dioxide 32.0 Anion Gap 11 BUN 65 H Creatinine 10.30 H* Estim Creat Clear Calc 7.80 Est GFR (MDRD) Af Amer 7 L Est GFR (MDRD) Non-Af 6 L BUN/Creatinine Ratio 6.3 L Glucose 103 Lactic Acid Calcium 8.1 L Phosphorus Magnesium Total Bilirubin Direct Bilirubin AST ALT Alkaline Phosphatase Troponin I 2.440 H* Total Protein Albumin Globulin Triglycerides Cholesterol LDL Cholesterol VLDL Cholesterol HDL Cholesterol Acetone Level 10/19/18 10/19/18 10/19/18 05:15 05:15 05:15 WBC 4.7 RBC 4.65 Hgb 10.7 L Hct 32.5 L MCV 69.9 L MCH 23.0 L MCHC 32.9 RDW 15.4 H RDW Differential 38.6 Plt Count 112 L MPV 10.4 Immature Gran % (Auto) Neut % (Auto) Lymph % (Auto) [place] % (Auto) Eos % (Auto) Baso % (Auto) Absolute Neuts (auto) Absolute Lymphs (auto) Total Counted PT 14.8 INR 1.2 APTT Specimen Type Sample Site VBG pH VBG pO2 VBG O2 Sat (Calc) VBG O2 Content VBG Base Excess POC Mix VBG pCO2 Pt Tmp O2 Delivery Device Blood Gas Notified Whom Blood Gas Notified Time Sodium Potassium Chloride Carbon Dioxide Anion Gap BUN Creatinine Estim Creat Clear Calc Est GFR (MDRD) Af Amer Est GFR (MDRD) Non-Af BUN/Creatinine Ratio Glucose Lactic Acid Calcium Phosphorus Magnesium Total Bilirubin Direct Bilirubin AST ALT Alkaline Phosphatase Troponin I Total Protein Albumin Globulin Triglycerides 58 Cholesterol 117 LDL Cholesterol 54 VLDL Cholesterol 12 HDL Cholesterol 51 Acetone Level 10/19/18 08:10 WBC RBC Hgb Hct MCV MCH MCHC RDW RDW Differential Plt Count MPV Immature Gran % (Auto) Neut % (Auto) Lymph % (Auto) [place] % (Auto) Eos % (Auto) Baso % (Auto) Absolute Neuts (auto) Absolute Lymphs (auto) Total Counted PT INR APTT 43.9 H Specimen Type Sample Site VBG pH VBG pO2 VBG O2 Sat (Calc) VBG O2 Content VBG Base Excess POC Mix VBG pCO2 Pt Tmp O2 Delivery Device Blood Gas Notified Whom Blood Gas Notified Time Sodium Potassium Chloride Carbon Dioxide Anion Gap BUN Creatinine Estim Creat Clear Calc Est GFR (MDRD) Af Amer Est GFR (MDRD) Non-Af BUN/Creatinine Ratio Glucose Lactic Acid Calcium Phosphorus Magnesium Total Bilirubin Direct Bilirubin AST ALT Alkaline Phosphatase Troponin I Total Protein Albumin Globulin Triglycerides Cholesterol LDL Cholesterol VLDL Cholesterol HDL Cholesterol Acetone Level POC Glucose 10/19/18 10/18/18 10/18/18 06:48 21:56 16:28 POC Glucose 122 H 160 H 354 H 10/18/18 11:08 POC Glucose 370 H Assessment/Plan All Active Problems (Last Reviewed 10/18/18 @ 15:24 by Jenaro Gant DO) Problem with dialysis access (Acute) NSTEMI (non-ST elevated myocardial infarction) (Acute) Malnutrition (Acute) Diabetic foot infection (Acute) Hyponatremia (Acute) Acute on chronic anemia (Acute) Cellulitis of right foot (Acute) Amputated great toe of right foot (Resolved) Hammer toe of right foot (Resolved) Malnutrition (Resolved) Right forefoot osteomyelitis (Resolved) 1-end-stage renal disease . On Friday. Will arrange hemodialysis today as per the chronic order. Dialysis access: Left upper extremity AV fistula 2-anemia hemoglobin more than 10.noted for [facility] for now. 3-non-ST [place]. Status post cardiac cath with stent placement. Will defer to the cardiology team. 4-hypertension: Uncontrolled. Patient is a nitroglycerin drip. Will defer management to the cardiology team. Thank you for the consult. Renal team will continue to follow. Kirk Celeste MD
[2018-10-19] MEDS: LORazepam 1 MG Tablet PO ×2 (11:11→16:18)
--- NOTE | 2018-10-19 11:42 | CRPHASE1 ---
Patient Communication PHII Cardiac Rehab Discussed with Patient:: Yes - discussed with pt's two daughters Guide to Cardiac Rehab Given to Patient:: Yes Cardiac Rehab Facility Choice List Given to Patient:: Yes - also discussed with pt's daughters.States will probably attend here at [facility] Choice Program [facility] CR PHII:: Communication Given to CR, Refer to [facility] Refer Phase II Cardiac Rehab:: Yes Sessions:: 36 sessions - 3 days/wk, 12 weeks Risk Factors/Lifestyle Smoking Status: Former smoker Hx Hypertension: Yes Hx Diabetes Mellitus Type 1: Yes Hx Metabolic Disorders: Yes Hx Dyslipidemia: Yes Height: 6 ft 3 in Weight:: 141 lb BMI: 17.6 Family History: Family History (Last Reviewed 10/18/18 @ 15:25 by Jenaro Gant DO) Sister Heart disease Uncle Colon cancer Laboratory Values: Cardiac Rehab Phase I Labs Triglycerides 58 mg/dL (-199) 10/19/18 05:15 Cholesterol 117 mg/dL (200) 10/19/18 05:15 LDL Cholesterol 54 mg/dL (0-130) 10/19/18 05:15 HDL Cholesterol 51 mg/dL (40-) 10/19/18 05:15 Phase I Education Given On:: [place], Nutrition, Antiplatelet medication, CHF, Smoking cessation, Diabetes - Type I, Diabetes - Type II Issues Affecting Care:: Physical - pt has dialysis 3x/week and does not drive Medical/Surgical History Diabetes Type I:: Yes Hypertension:: Yes Dyslipidemia:: Yes PVD:: Yes Depression:: Yes Anxiety:: Yes - info gather was limited due to pt beiing medicated for anxiety just prior Orthopedic:: Yes - amput. rt foot/toes? Discharge/Home/Social Eval Discharge Disposition: Home - lives alone Cardiac Rehabilitation Info Cardiac Rehabilitation Program Information: Cardiac Rehabilitation is important for patients like you who are recovering from a heart problem. Cardiac rehabilitation programs are recognized as integral to the continued care of the patient with coronary heart disease. The cardiac rehabilitation program is designed to optimize a patient's physical, psychological, and social functioning. Health care transitions nurse work in cardiac rehabilitation programs and assist you with getting the treatments you need to get stronger and healthier - like exercise, healthy eating habits, and medications. Cardiac rehabilitation has been show to help people with heart problems live longer and have better life enjoyment than people who do not go to cardiac rehabilitation. Please contact the Cardiac Rehabilitation Program at [facility] at in two weeks if you have not heard from them.
--- NOTE | 2018-10-19 11:46 | CRPHASE1_ITS ---
Patient Communication PHII Cardiac Rehab Discussed with Patient:: Yes - discussed with pt's two daughters Guide to Cardiac Rehab Given to Patient:: Yes Cardiac Rehab Facility Choice List Given to Patient:: Yes - also discussed with pt's daughters.States will probably attend here at [facility] Choice Program [facility] CR PHII:: Communication Given to CR, Refer to [facility] Refer Phase II Cardiac Rehab:: Yes Sessions:: 36 sessions - 3 days/wk, 12 weeks Risk Factors/Lifestyle Smoking Status: Former smoker Hx Hypertension: Yes Hx Diabetes Mellitus Type 1: Yes Hx Metabolic Disorders: Yes Hx Dyslipidemia: Yes Height: 6 ft 3 in Weight:: 141 lb BMI: 17.6 Family History: Family History (Last Reviewed 10/18/18 @ 15:25 by Jenaro Gant DO) Sister Heart disease Uncle Colon cancer Laboratory Values: Cardiac Rehab Phase I Labs Triglycerides 58 mg/dL (-199) 10/19/18 05:15 Cholesterol 117 mg/dL (200) 10/19/18 05:15 LDL Cholesterol 54 mg/dL (0-130) 10/19/18 05:15 HDL Cholesterol 51 mg/dL (40-) 10/19/18 05:15 Phase I Education Given On:: [place], Nutrition, Antiplatelet medication, CHF, Smoking cessation, Diabetes - Type I, Diabetes - Type II Issues Affecting Care:: Physical - pt has dialysis 3x/week and does not drive Medical/Surgical History Diabetes Type I:: Yes Hypertension:: Yes Dyslipidemia:: Yes PVD:: Yes Depression:: Yes Anxiety:: Yes - info gather was limited due to pt beiing medicated for anxiety just prior Orthopedic:: Yes - amput. rt foot/toes? Discharge/Home/Social Eval Discharge Disposition: Home - lives alone Cardiac Rehabilitation Info Cardiac Rehabilitation Program Information: Cardiac Rehabilitation is important for patients like you who are recovering from a heart problem. Cardiac rehabilitation programs are recognized as integral to the continued care of the patient with coronary heart disease. The cardiac rehabilitation program is designed to optimize a patient's physical, psychological, and social functioning. Health chronic care nurse work in cardiac rehabilitation programs and assist you with getting the treatments you need to get stronger and healthier - like exercise, healthy eating habits, and medications. Cardiac rehabilitation has been show to help people with heart problems live longer and have better life enjoyment than people who do not go to cardiac rehabilitation. Please contact the Cardiac Rehabilitation Program at [facility] at in two weeks if you have not heard from them.
--- NOTE | 2018-10-19 11:47 | PCM.PN.HOSP ---
Patient Problems: Active and Suspected Problems (Last Reviewed 10/18/18 @ 15:24 by Jenaro Gant DO) NSTEMI (non-ST elevated myocardial infarction) (Acute) Subjective: Had stent placed today to proximal LAD. BP was elevated. Patient states he feels anxious. Denies chest pain, shortness of breath, nausea and vomiting. Vitals/I&O's: Vital Signs Temp Pulse Resp BP Pulse Ox 36.6 C 80 18 202/103 H 98 10/19/18 08:10 10/19/18 11:06 10/19/18 08:10 10/19/18 11:06 10/19/18 08:10 Oxygen Delivery Method Room Air Weight: 63.957 kg Body Mass Index (BMI) 17.8 Finger Stick Blood Glucose 370 Intake and Output for Last 24 Hours 10/17/18 10/18/18 10/19/18 23:59 23:59 23:59 Intake Total 42 / 42 469.2 / 469.2 Balance 42 / 42 469.2 / 469.2 General: Alert, No apparent distress HEENT: Atraumatic, Normocephalic Oral: Moist Mucosa, No Gingival or Mucosal Lesions/ Ulcerations Neck: No Nodes, Thyroid Normal Size and Texture Lungs: Clear to auscultation, Normal air movement, No rhonchi, No wheeze Cardiovascular: Regular rate, Regular Rhythm, Normal S1, Normal S2 Abdomen: Bowel Sounds Present, Soft, Non Tender, Non-Distended, No Hepato-splenomegaly Extremities: No edema, No Calf Tenderness, - - cast on RLE Skin: No rashes, No breakdown Musculoskeletal: No Tenderness to Palpation of Joints or Extremities, No Muscle Wasting Psych/Mental Status: Normal Affect, Appropriate Laboratory Results 10/18/18 11:25: PT 13.8, INR 1.1 10/18/18 11:35: WBC 4.8, RBC 5.46, Hgb 12.4 L, Hct 37.9 L, MCV 69.4 L, MCH 22.7 L, MCHC 32.7, RDW 15.4 H, RDW Differential 39.3, Plt Count 117 L, MPV 10.3, Immature Gran % (Auto) 0.200, Neut % (Auto) 83.1 H, Lymph % (Auto) 9.8 L, [place] % (Auto) 6.7, Eos % (Auto) 0.0, Baso % (Auto) 0.2, Absolute Neuts (auto) 4.0, Absolute Lymphs (auto) 0.47 L, Total Counted Not Reportable 10/18/18 11:35: Sodium 139, Potassium 3.8, Chloride 97 L, Carbon Dioxide 29.0, Anion Gap 13, BUN 60 H, Creatinine 9.47 H*, Estim Creat Clear Calc 9.58, Est GFR (MDRD) Af Amer 8 L, Est GFR (MDRD) Non-Af 6 L, BUN/Creatinine Ratio 6.3 L, Glucose 349 H, Calcium 8.7, Phosphorus 3.2, Magnesium 3.2 H, Troponin I 1.840 H* 10/18/18 11:35: Acetone Level NEGATIVE 10/18/18 11:35: Lactic Acid 3.8 H 10/18/18 11:35: Total Bilirubin 0.60, Direct Bilirubin 0.15, AST 25, ALT 20, Alkaline Phosphatase 132 H, Total Protein 8.6 H, Albumin 4.4, Globulin 4.2 10/18/18 11:35: APTT 30.3 10/18/18 16:03: Lactic Acid 2.0 10/18/18 16:03: Troponin I 2.160 H* 10/18/18 16:28: POC Glucose 354 H 10/18/18 20:00: Troponin I 2.290 H* 10/18/18 20:00: APTT 76.2 H 10/18/18 21:56: POC Glucose 160 H 10/18/18 22:00: Troponin I 2.440 H* 10/19/18 02:00: APTT 54.9 H 10/19/18 05:15: Sodium 142, Potassium 3.2 L, Chloride 99, Carbon Dioxide 32.0, Anion Gap 11, BUN 65 H, Creatinine 10.30 H*, Estim Creat Clear Calc 7.80, Est GFR (MDRD) Af Amer 7 L, Est GFR (MDRD) Non-Af 6 L, BUN/Creatinine Ratio 6.3 L, Glucose 103, Calcium 8.1 L 10/19/18 05:15: WBC 4.7, RBC 4.65, Hgb 10.7 L, Hct 32.5 L, MCV 69.9 L, MCH 23.0 L, MCHC 32.9, RDW 15.4 H, RDW Differential 38.6, Plt Count 112 L, MPV 10.4 10/19/18 05:15: PT 14.8, INR 1.2 10/19/18 05:15: Triglycerides 58, Cholesterol 117, LDL Cholesterol 54, VLDL Cholesterol 12, HDL Cholesterol 51 10/19/18 06:48: POC Glucose 122 H 10/19/18 08:10: APTT 43.9 H Current Medications Acetaminophen (Tylenol) 650 mg PO Q6H PRN PRN PRN Reason: Mild pain 1-3/Temp > 100.7 F Aspirin (Ecotrin) 81 mg PO DAILY@0800 [facility] Last Admin: 10/19/18 05:55 Dose: 81 mg Atorvastatin Calcium (Lipitor) 40 mg PO QHS [facility] Last Admin: 10/18/18 22:10 Dose: 40 mg Atropine Sulfate () 0.5 mg IV UD PRN PRN Reason: HR <50 bpm Clopidogrel Bisulfate (Plavix) 75 mg PO DAILY [facility] Last Admin: 10/19/18 05:56 Dose: 75 mg Dextrose (D50w Syringe) 0 gm IV X1 PRN; Protocol PRN Reason: Hypoglycemia Glucagon () 1 mg IM .X1 PRN PRN Reason: Hypoglycemia Heparin Sodium (Beef Lung) (Heparin 500 Unit/5 Ml (100/Ml)) 500 unit IV UD PRN PRN Reason: HEPARIN FLUSH Heparin Sodium (Porcine) (Heparin Na) 0 unit IV UD PRN; Protocol Hydralazine HCl (Apresoline) 100 mg PO TID [facility] Last Admin: 10/19/18 05:55 Dose: 100 mg Heparin Sodium/Dextrose () 25,000 units in 250 mls @ 10 mls/hr IV .Q25H [facility]; Protocol Last Admin: 10/18/18 16:43 Dose: 10 mls/hr Nitroglycerin/Dextrose () 250 mls @ 3 mls/hr CONT INF .[id number] [facility] Insulin Glargine (Lantus (Bkc)) 10 units SC QHS [facility] Last Admin: 10/18/18 22:11 Dose: 10 u Insulin Glargine (Lantus (Bkc)) 13 units SC DAILY [facility] Insulin Human Lispro (Humalog Kwikpen (Bk)) 0 unit SQ TIDAC [facility]; Protocol Last Admin: 10/19/18 06:51 Dose: Not Given Labetalol HCl (Trandate) 5 mg IV X1 PRN PRN Reason: SBP > 160 when pulling sheath Stop: 10/21/18 10:25 Latanoprost (Xalatan Opthalmic) 1 drop EACH EYE QHS [facility] Last Admin: 10/18/18 22:11 Dose: 1 drop Lorazepam (Ativan) 1 mg PO Q6H PRN PRN PRN Reason: ANXIETY Last Admin: 10/19/18 11:11 Dose: 1 mg Losartan Potassium (Cozaar) 50 mg PO DAILY [facility] Metoprolol Tartrate (Lopressor (Beta Ana Rosa)) 37.5 mg PO DAILY [facility] Last Admin: 10/19/18 05:55 Dose: 37.5 mg Metoprolol Tartrate (Lopressor (Beta Ana Rosa)) 25 mg PO QHS [facility] Last Admin: 10/18/18 22:10 Dose: 25 mg Minoxidil (Loniten) 2.5 mg PO DAILY [facility] Last Admin: 10/19/18 05:57 Dose: 2.5 mg Nitroglycerin (Nitrostat) 0.4 mg SUBLINGUAL Q5M PRN PRN Reason: CARDIAC/CHEST PAIN Ondansetron HCl (Zofran) 4 mg IV Q8H PRN PRN PRN Reason: NAUSEA/VOMITING Last Admin: 10/19/18 08:04 Dose: 4 mg Oxycodone HCl (Oxyir) 5 mg PO Q4H PRN PRN PRN Reason: Moderate Pain (4-6/10) Sevelamer Carbonate (Renvela) 1,600 mg PO TIDCM [facility] Last Admin: 10/19/18 08:00 Dose: Not Given Sodium Chloride () 5 - 15 ml IV UD PRN PRN Reason: SALINE FLUSH Last Admin: 10/19/18 08:04 Dose: 10 ml Sodium Chloride () 500 ml IV BOLUS PRN PRN Reason: VASO-VAGAL PROTOCOL Medical Necessity - Tobacco Use Smoking Status: Former smoker Tobacco Use: Non-smoker Assessment/Plan All Active Problems (Last Reviewed 10/18/18 @ 15:24 by Jenaro Gant DO) Problem with dialysis access (Acute) NSTEMI (non-ST elevated myocardial infarction) (Acute) Malnutrition (Acute) Diabetic foot infection (Acute) Hyponatremia (Acute) Acute on chronic anemia (Acute) Cellulitis of right foot (Acute) Amputated great toe of right foot (Resolved) Hammer toe of right foot (Resolved) Malnutrition (Resolved) Right forefoot osteomyelitis (Resolved) 1. NSTEMI medical mgmt with heparin gtt, ASA, plavix, statin s/p PCI with JOE to proximal LAD currently symptom free troponin maybe skewed due to ESRD 2. Nausea and vomiting resolved 2/2 #1 3. Hypertensive urgency started on Nitro gtt monitor to have HD today, which should help with BP control. 4. DM1: continue Lantus add SSI 5. ESRD: on HD QMWF, states that he has been compliant with his HD DW Dr. Brooks, to have HD today. 6. VTE prophylaxis: not indicated as currently on a heparin gtt. 7. Right diabetic foot infection: s/p resection of prominent deformed bone on right foot still has cast on, but full weight-bearing (according to the patient) follow up with Dr. Miranda Code Visit Inpatient E&M: 86219 Subs Hosp L2
--- NOTE | 2018-10-19 11:48 | CRPH1.INSTRU ---
General Education CAD and cardiac anatomy and function:: Not instructed Explanation of diagnoses and procedures:: Not instructed Sign/Symptoms of [place]:: Not instructed Antiplatelet therapy: Needs reinforcement, Not instructed Proper use of NTG-SL: Not instructed Emergency procedures and activation of EMS: Not instructed Compliance of all prescribed medications: Not instructed Smoking Patient Nicotine/Smoking Risk Factors Are:: Cigarettes - previous smoker Nicotine/Smoking Response Code:: Not instructed Dyslipidemia Patient Dyslipidemia Risk Factors Are:: Total Cholesterol - 117, Triglycerides - 58, HDL - 51, LDL - 54 Recommendations Include:: Lipid profile provided Dyslipidemia Response Code:: Not instructed Overweight/Obesity Patient Overweight/Obesity Risk Factors Are:: BMI Normal [24-29 & > 65 years old] Overweight/Obesity:: Not instructed Hypertension Recommendations Include:: Maintain BP <130/85, BP <130/80 if diabetic, DASH dietary guidelines, Decrease/maintain normal body weight, Moderation of ETOH Hypertension:: Not instructed Heart Disease Heart Disease Response Code:: Not instructed Diabetes Patient Diabetes Risk Factors Are:: Elevated blood sugars Recommendations Include:: Maintain fasting blood sugars 70-110 md/dL, Maintain HgbA1c of 6% or less, Monitor blood sugar as prescribed, Diabetic dietary guidelines, Decrease/maintain body weight Diabetes:: Not instructed Metabolic Syndrome Metabolic Syndrome Response Code:: Not instructed Sedentary Sedentary Response Code:: Not instructed Stress Stress Response Code:: Not instructed - PT WAS MEDICATED FOR ANXIETY JUST PRIOR TO ASSESS. SPOKE WITH 2 DAUGHTERS. ENCOURAGED ANY QUESTIONS AND WE WILL F/U WITH PHONE CALL ONCE PT DISCHAGED FROM HOSPITAL. PT. IS ON DIALYSIS 3X/WEEK AND DOES NOT DRIVE. VAN SERVICE AVAIL. IF NEEDED.
--- NOTE | 2018-10-19 11:52 | PN_ITS ---
Patient Problems: Active and Suspected Problems (Last Reviewed 10/18/18 @ 15:24 by Jenaro Gant DO) NSTEMI (non-ST elevated myocardial infarction) (Acute) Subjective: Had stent placed today to proximal LAD. BP was elevated. Patient states he feels anxious. Denies chest pain, shortness of breath, nausea and vomiting. Vitals/I&O's: Vital Signs Temp Pulse Resp BP Pulse Ox 36.6 C 80 18 202/103 H 98 10/19/18 08:10 10/19/18 11:06 10/19/18 08:10 10/19/18 11:06 10/19/18 08:10 Oxygen Delivery Method Room Air Weight: 63.957 kg Body Mass Index (BMI) 17.8 Finger Stick Blood Glucose 370 Intake and Output for Last 24 Hours 10/17/18 10/18/18 10/19/18 23:59 23:59 23:59 Intake Total 42 / 42 469.2 / 469.2 Balance 42 / 42 469.2 / 469.2 General: Alert, No apparent distress HEENT: Atraumatic, Normocephalic Oral: Moist Mucosa, No Gingival or Mucosal Lesions/ Ulcerations Neck: No Nodes, Thyroid Normal Size and Texture Lungs: Clear to auscultation, Normal air movement, No rhonchi, No wheeze Cardiovascular: Regular rate, Regular Rhythm, Normal S1, Normal S2 Abdomen: Bowel Sounds Present, Soft, Non Tender, Non-Distended, No Hepato- splenomegaly Extremities: No edema, No Calf Tenderness, - - cast on RLE Skin: No rashes, No breakdown Musculoskeletal: No Tenderness to Palpation of Joints or Extremities, No Muscle Wasting Psych/Mental Status: Normal Affect, Appropriate Laboratory Results 10/18/18 11:25: PT 13.8, INR 1.1 10/18/18 11:35: WBC 4.8, RBC 5.46, Hgb 12.4 L, Hct 37.9 L, MCV 69.4 L, MCH 22.7 L, MCHC 32.7, RDW 15.4 H, RDW Differential 39.3, Plt Count 117 L, MPV 10.3, Im mature Gran % (Auto) 0.200, Neut % (Auto) 83.1 H, Lymph % (Auto) 9.8 L, [place] % (Auto) 6.7, Eos % (Auto) 0.0, Baso % (Auto) 0.2, Absolute Neuts (auto) 4.0, Absolute Lymphs (auto) 0.47 L, Total Counted Not Reportable 10/18/18 11:35: Sodium 139, Potassium 3.8, Chloride 97 L, Carbon Dioxide 29.0, Anion Gap 13, BUN 60 H, Creatinine 9.47 H*, Estim Creat Clear Calc 9.58, Est GFR (MDRD) Af Amer 8 L, Est GFR (MDRD) Non-Af 6 L, BUN/Creatinine Ratio 6.3 L, Glucose 349 H, Calcium 8.7, Phosphorus 3.2, Magnesium 3.2 H, Troponin I 1.840 H* 10/18/18 11:35: Acetone Level NEGATIVE 10/18/18 11:35: Lactic Acid 3.8 H 10/18/18 11:35: Total Bilirubin 0.60, Direct Bilirubin 0.15, AST 25, ALT 20, Alkaline Phosphatase 132 H, Total Protein 8.6 H, Albumin 4.4, Globulin 4.2 10/18/18 11:35: APTT 30.3 10/18/18 16:03: Lactic Acid 2.0 10/18/18 16:03: Troponin I 2.160 H* 10/18/18 16:28: POC Glucose 354 H 10/18/18 20:00: Troponin I 2.290 H* 10/18/18 20:00: APTT 76.2 H 10/18/18 21:56: POC Glucose 160 H 10/18/18 22:00: Troponin I 2.440 H* 10/19/18 02:00: APTT 54.9 H 10/19/18 05:15: Sodium 142, Potassium 3.2 L, Chloride 99, Carbon Dioxide 32.0, Anion Gap 11, BUN 65 H, Creatinine 10.30 H*, Estim Creat Clear Calc 7.80, Est GFR (MDRD) Af Amer 7 L, Est GFR (MDRD) Non-Af 6 L, BUN/Creatinine Ratio 6.3 L, Glucose 103, Calcium 8.1 L 10/19/18 05:15: WBC 4.7, RBC 4.65, Hgb 10.7 L, Hct 32.5 L, MCV 69.9 L, MCH 23.0 L, MCHC 32.9, RDW 15.4 H, RDW Differential 38.6, Plt Count 112 L, MPV 10.4 10/19/18 05:15: PT 14.8, INR 1.2 10/19/18 05:15: Triglycerides 58, Cholesterol 117, LDL Cholesterol 54, VLDL Cholesterol 12, HDL Cholesterol 51 10/19/18 06:48: POC Glucose 122 H 10/19/18 08:10: APTT 43.9 H Current Medications Acetaminophen (Tylenol) 650 mg PO Q6H PRN PRN PRN Reason: Mild pain 1-3/Temp > 100.7 F Aspirin (Ecotrin) 81 mg PO DAILY@0800 [facility] Last Admin: 10/19/18 05:55 Dose: 81 mg Atorvastatin Calcium (Lipitor) 40 mg PO QHS [facility] Last Admin: 10/18/18 22:10 Dose: 40 mg Atropine Sulfate () 0.5 mg IV UD PRN PRN Reason: HR <50 bpm Clopidogrel Bisulfate (Plavix) 75 mg PO DAILY [facility] Last Admin: 10/19/18 05:56 Dose: 75 mg Dextrose (D50w Syringe) 0 gm IV X1 PRN; Protocol PRN Reason: Hypoglycemia Glucagon () 1 mg IM .X1 PRN PRN Reason: Hypoglycemia Heparin Sodium (Beef Lung) (Heparin 500 Unit/5 Ml (100/Ml)) 500 unit IV UD PRN PRN Reason: HEPARIN FLUSH Heparin Sodium (Porcine) (Heparin Na) 0 unit IV UD PRN; Protocol Hydralazine HCl (Apresoline) 100 mg PO TID [facility] Last Admin: 10/19/18 05:55 Dose: 100 mg Heparin Sodium/Dextrose () 25,000 units in 250 mls @ 10 mls/hr IV .Q25H [facility]; Protocol Last Admin: 10/18/18 16:43 Dose: 10 mls/hr Nitroglycerin/Dextrose () 250 mls @ 3 mls/hr CONT INF .[id number] [facility] Insulin Glargine (Lantus (Bkc)) 10 units SC QHS [facility] Last Admin: 10/18/18 22:11 Dose: 10 u Insulin Glargine (Lantus (Bkc)) 13 units SC DAILY [facility] Insulin Human Lispro (Humalog Kwikpen (Bk)) 0 unit SQ TIDAC [facility]; Protocol Last Admin: 10/19/18 06:51 Dose: Not Given Labetalol HCl (Trandate) 5 mg IV X1 PRN PRN Reason: SBP > 160 when pulling sheath Stop: 10/21/18 10:25 Latanoprost (Xalatan Opthalmic) 1 drop EACH EYE QHS [facility] Last Admin: 10/18/18 22:11 Dose: 1 drop Lorazepam (Ativan) 1 mg PO Q6H PRN PRN PRN Reason: ANXIETY Last Admin: 10/19/18 11:11 Dose: 1 mg Losartan Potassium (Cozaar) 50 mg PO DAILY [facility] Metoprolol Tartrate (Lopressor (Beta Ana Rosa)) 37.5 mg PO DAILY [facility] Last Admin: 10/19/18 05:55 Dose: 37.5 mg Metoprolol Tartrate (Lopressor (Beta Ana Rosa)) 25 mg PO QHS [facility] Last Admin: 10/18/18 22:10 Dose: 25 mg Minoxidil (Loniten) 2.5 mg PO DAILY [facility] Last Admin: 10/19/18 05:57 Dose: 2.5 mg Nitroglycerin (Nitrostat) 0.4 mg SUBLINGUAL Q5M PRN PRN Reason: CARDIAC/CHEST PAIN Ondansetron HCl (Zofran) 4 mg IV Q8H PRN PRN PRN Reason: NAUSEA/VOMITING Last Admin: 10/19/18 08:04 Dose: 4 mg Oxycodone HCl (Oxyir) 5 mg PO Q4H PRN PRN PRN Reason: Moderate Pain (4-6/10) Sevelamer Carbonate (Renvela) 1,600 mg PO TIDCM [facility] Last Admin: 10/19/18 08:00 Dose: Not Given Sodium Chloride () 5 - 15 ml IV UD PRN PRN Reason: SALINE FLUSH Last Admin: 10/19/18 08:04 Dose: 10 ml Sodium Chloride () 500 ml IV BOLUS PRN PRN Reason: VASO-VAGAL PROTOCOL Medical Necessity - Tobacco Use Smoking Status: Former smoker Tobacco Use: Non-smoker Assessment/Plan All Active Problems (Last Reviewed 10/18/18 @ 15:24 by Jenaro Gant DO) Problem with dialysis access (Acute) NSTEMI (non-ST elevated myocardial infarction) (Acute) Malnutrition (Acute) Diabetic foot infection (Acute) Hyponatremia (Acute) Acute on chronic anemia (Acute) Cellulitis of right foot (Acute) Amputated great toe of right foot (Resolved) Hammer toe of right foot (Resolved) Malnutrition (Resolved) Right forefoot osteomyelitis (Resolved) 1. NSTEMI * medical mgmt with heparin gtt, ASA, plavix, statin * s/p PCI with JOE to proximal LAD * currently symptom free * troponin maybe skewed due to ESRD 2. Nausea and vomiting * resolved * 2/ #1 3. Hypertensive urgency * started on Nitro gtt * monitor * to have HD today, which should help with BP control. 4. DM1: * continue Lantus * add SSI 5. ESRD: * on HD QMWF, states that he has been compliant with his HD * DW Dr. Brooks, to have HD today. 6. VTE prophylaxis: not indicated as currently on a heparin gtt. 7. Right diabetic foot infection: * s/p resection of prominent deformed bone on right foot * still has cast on, but full weight-bearing (according to the patient) * follow up with Dr. Miranda Code Visit Inpatient E&M: 73938 Subs Hosp L2
[2018-10-19 12:51] LABS: Bedside Glucose 137 mg/dL (70-110)
[2018-10-19] MEDS: Losartan Potassium 50 MG Tablet PO (14:34)
[2018-10-19 15:55] LABS: ACT Activated Clotting Time 208 sec (74-137)
[2018-10-19 18:25] LABS: Bedside Glucose 105 mg/dL (70-110)
[2018-10-19] MEDS: Calcitriol 0.25 MCG Capsule 0.5 MCG PO (18:26)
[2018-10-19 20:06] LABS: Bedside Glucose 111 mg/dL (70-110)
[2018-10-19] MEDS: SEVELAMER CARBONATE 800 MG TABLET 1600 MG PO (21:28)
[2018-10-19] MEDS: Latanoprost 0.005% 1 Bottle 1 DRP EACH EYE (21:29)
[2018-10-19] MEDS: Atorvastatin Calcium 40 MG Tablet PO (21:30)
[2018-10-19] MEDS: Metoprolol Tartrate 25 MG Tablet PO (21:32)
--- NOTE | 2018-10-19 21:47 | DIALYSIS ---
Hemodialysis completed as ordered. -1200ml off. Stable t/o. Hemostasis easily obtained, gauze/tape applied. Report to Khushboo SARABIA
[2018-10-20] VITALS (14 sets, daily range): BP systolic 102–152; BP diastolic 65–84; PULSE 85–101; RESP 16–23; TEMP 36.8–38.2; O2SAT 96–99
[2018-10-20 04:19] LABS: Absolute Lymphocyte Count 1.28 X10^3/ul (0.83-4.51); Absolute Neutrophil Count 5.5 X10^3/uL (2.0-7.7); Basophil# 0.03 X10^3/uL; Basophil% 0.4 % (0-1); Eosinophil# 0.06 X10^3/uL; Eosinophils% 0.8 % (0-5); Hematocrit 37.5 % (40-54); Lymphocyte # 1.28 X10^3/ul (4.0); Lymphocyte % 16.8 % (19-41); Mean Corpuscular Hgb 22.3 pg (27.0-32.0); Mean Corpuscular Volume 69.8 fL (80-94); Mean Platelet Vol. 10.9 fl (6.2-12.0); Monocyte# 0.73 X10^3/uL; Monocyte% 9.6 % (0-10); Neutrophil # 5.52 X10^3/uL (2.7-7.7); Neutrophil % 72.1 % (47-70); Platelet Count 138 K/mm3 (150-450); RBC Distribution Width CV 15.8 % (11.6-14.6); RBC Distribution Width SD 39.4 fl (35.1-43.9); Red Blood Count 5.37 M/mm3 (4.6-6.2); White Blood Count 7.6 K/mm3 (4.4-11.0)
[2018-10-20 04:21] LABS: POSITIVE COUNT NO; POSITIVE DIFFERENTIAL NO; POSITIVE MORPHOLOGY NO
[2018-10-20 04:34] LABS: Anion Gap 10 (5-15); BUN 28 mg/dL (7-18); BUN/Creat Ratio 4.4 RATIO (10-20); Calcium,Total 8.2 mg/dL (8.5-10.1); Chloride 97 mmol/L (98-107); Creatinine, Serum 6.32 mg/dL (0.70-1.30); EST Glomerular Filtration Rate 10 mL/min (>60); Est Glom Filt Rate - Afr Amer 12 mL/min (>60); Estimated Creatinine Clearance 12.65 ml/min; Glucose 35 mg/dL (74-106); Potassium 3.4 mmol/L (3.5-5.1); Sodium Level 138 mmol/L (136-145)
--- NOTE | 2018-10-20 04:44 | NURSING ---
Lab called to report blood glucose of 35. Recheck with finger stick, 38. Pt is A&O x3 with no S&S of hypoglycemia. Provided PO juice, peanut butter and crackers. Will continue to monitor.
[2018-10-20 04:46] LABS: Bedside Glucose 38 mg/dL (70-110)
[2018-10-20 05:06] LABS: Bedside Glucose 78 mg/dL (70-110)
[2018-10-20 05:31] LABS: Bedside Glucose 100 mg/dL (70-110)
[2018-10-20] MEDS: hydrALAZINE 50 MG Tablet 100 MG PO (05:57)
[2018-10-20] MEDS: SEVELAMER CARBONATE 800 MG TABLET 1600 MG PO (07:45)
[2018-10-20] MEDS: Aspirin E.C. 81 MG Tablet PO (07:45)
[2018-10-20] MEDS: Clopidogrel Bisulfate 75 MG Tablet PO (07:47)
[2018-10-20 08:05] LABS: Bedside Glucose 77 mg/dL (70-110)
--- NOTE | 2018-10-20 08:47 | PCM.DC ---
- Discharge Diagnoses Current Active Problems: Current Active and Chronic Problems (Last Updated 10/19/18 @ 17:45 by Jenny Lui) Atherosclerotic heart disease of [place] coronary artery without angina pectoris (Chronic) Successful PTCA/JOE proximal LAD with a 3.5 x 32 Promus Synergy stent 10/19/2018 Stented coronary artery (Chronic 10/19/18) Successful PTCA/JOE proximal LAD with a 3.5 x 32 Promus Synergy stent per [facility] @ [facility] 10/19/2018 NSTEMI (non-ST elevated myocardial infarction) (Acute) You will use the following diet at home:: Renal (restricted protein/sodium) Your food should be the consistency of: Regular Your liquids should be the consistency of: Regular/Thin Discharge Activity: Return to Normal Activity, - - weight bearing status as previously permitted by Dr. Miranda. Call your doctor if you observe: Fever of 101 or Higher, Shortness of breath, Chest pain Allergies/Adverse Reactions: Allergies calcium [From PhosLo] Allergy (Verified 10/18/18 10:59) Hives Medications to take at Discharge Hydralazine HCl 100 mg PO TID 07/06/17 Insulin Detemir [Levemir FlexPen] 10 units SC QHS 07/06/17 Insulin Detemir [Levemir FlexPen] 13 units SC DAILY 07/06/17 Latanoprost 0.005% [Xalatan Opthalmic] 1 drp EACH EYE QHS 07/06/17 Metoprolol Tartrate 25 mg PO QHS 07/06/17 Metoprolol Tartrate 37.5 mg PO DAILY 07/06/17 Sevelamer Carbonate [Renvela] 1,600 mg PO TIDCM 07/06/17 Simvastatin 40 mg PO QHS 07/06/17 Minoxidil [Loniten] 2.5 mg PO DAILY 10/18/18 Acetaminophen [Tylenol Tablet] 650 mg PO Q6H PRN PRN tablet 10/20/18 Aspirin E.C. [Ecotrin] 81 mg PO DAILY@0800 tablet 10/20/18 Clopidogrel Bisulfate [Plavix] 75 mg PO DAILY #30 tablet 10/20/18 Losartan Potassium [Cozaar] 50 mg PO DAILY #30 tablet 10/20/18 The following prescriptions were given: Clopidogrel Bisulfate [Plavix] 75 mg PO DAILY #30 tablet Losartan Potassium [Cozaar] 50 mg PO DAILY #30 tablet Orders to be completed after discharge: Phase II, Outpatient Cardiac Rehab Location: None Selected Primary Care Physician: Peter Coronado MD [Primary Care Provider] - Within 2 Weeks Test Results: Test results from this visit will be discussed in further detail at your follow-up appointment, if applicable. Please Follow Up With: Keyshwan Mcghee MD When: 2-4 weeks Please Follow Up With: Isaiah Miranda DPM When: next scheduled appointment. [facility] When: Friday, Friday, Friday Proposed Discharge Date: 10/20/18
--- NOTE | 2018-10-20 08:50 | PCM.PN.CARD ---
Subjectve: Patient seen and examined this morning, feels much better than he did yesterday, right groin is clean/dry/intact. Telemetry negative. EKG shows normal sinus rhythm with resolved anterior hyperacute T waves. Blood pressure much better today. Underwent hemodialysis yesterday without complications. Objective: Vital Signs Temp Pulse Resp BP Pulse Ox 98.6 F 90 16 152/73 H 98 10/20/18 04:00 10/20/18 07:00 10/20/18 07:00 10/20/18 07:00 10/20/18 07:00 Oxygen Delivery Method Room Air Weight: 141 lb Body Mass Index (BMI) 17.8 Finger Stick Blood Glucose 370 Intake and Output for Last 24 Hours 10/18/18 10/19/18 10/20/18 23:59 23:59 23:59 Intake Total 42 / 42 903.2 / 903.2 1160 / 1160 Output Total 1300 / 1300 Balance 42 / 42 -396.8 / -396.8 1160 / 1160 General: Awake, Alert, Oriented x 3 HEENT: PERRL, EOMI, Sclera Non Icteric Neck: Supple, Good ROM, No Lymph Node Enlargement Lungs: Clear to auscultation Cardiovascular: Regular Rhythm, Normal S1, Normal S2, No Murmurs, No Rubs, No Gallops Vascular: No Carotid Bruits, Normal Femoral Pulses, Normal Radial Pulses, Normal Dorsalis Pedal Pulse, Normal Posterior Tibial Pulses Abdomen: Bowel Sounds Present, Soft, Non Tender, No HSM, No Organomegaly Extremities: No Cyanosis, No Clubbing, No edema Neurological: No Focal Motor or Sensory Deficit 10/19/18 05:15: Triglycerides 58, Cholesterol 117, LDL Cholesterol 54, VLDL Cholesterol 12, HDL Cholesterol 51 10/20/18 03:55: WBC 7.6, RBC 5.37, Hgb 12.0 L, Hct 37.5 L, MCV 69.8 L, MCH 22.3 L, MCHC 32.0, RDW 15.8 H, RDW Differential 39.4, Plt Count 138 L, MPV 10.9, Immature Gran % (Auto) 0.300, Neut % (Auto) 72.1 H, Lymph % (Auto) 16.8 L, [place] % (Auto) 9.6, Eos % (Auto) 0.8, Baso % (Auto) 0.4, Absolute Neuts (auto) 5.5, Total Counted Not Reportable 10/20/18 03:55: Sodium 138, Potassium 3.4 L, Chloride 97 L, Carbon Dioxide 31.0, Anion Gap 10, BUN 28 H, Creatinine 6.32 H, Est GFR (MDRD) Af Amer 12 L, Est GFR (MDRD) Non-Af 10 L, BUN/Creatinine Ratio 4.4 L, Glucose 35 L*, Calcium 8.2 L Rhythm: EKG: ECHO: Stress Test: Cardiac Cath: PCI: CT Surgery: Holter monitor: EPS: PPM: CXR: Chest CT Scan: Medical Necessity - Tobacco Use Smoking Status: Former smoker Tobacco Use: Non-smoker Assessment/Plan 1. Non-STEMI: The patient presents with atypical non-chest pain symptoms but nausea and vomiting which may be an anginal equivalent in this diabetic dialysis patient. He denies any exertional anginal symptoms and his peak troponin is 2.44, which may be artificially elevated given his end-stage renal disease. Patient went coronary angiography yesterday which demonstrated a significant lesion in the proximal LAD. He received a drug-eluting stent to the proximal LAD with an excellent result. He has some minor 50% mid LAD stenosis at a bend in the LAD which appeared to be nonobstructive, and was moderately calcified. This was left for medical management. His other vessels were left for medical management as well. His LV function was hyperdynamic with an EF of 75%. Would recommend discontinuation of his CHRIS inhibitor given his dry hacking cough, and switching him to Cozaar 50 mg p.o. daily and titrating up from there. Patient's blood pressure is much better today but still may have some room for optimization. Patient be discharged home today and follow-up with Dr. Mcghee going forward. He will then be enrolled in cardiac rehab to take place in 2 weeks time assuming his blood pressure is well controlled. 2. End-stage renal disease: The patient has not had any change anginal symptoms during dialysis runs, and he is attempting to get on the transplant list for renal transplant. Would not recommend closure of any of his arterial sites in order to preserve his anatomy and avoid infection. In addition he is too thin for closure devices anyhow. 3. Hyperlipidemia: His LDL is 54, and his HDL is 51. Recommend LDL reduction less than 70 at least. Continue statin based medications. 4. Thank you very much for the opportunity to participate in the cardiac care of your patient. Patient may be discharged home. Code Visit Inpatient E&M: [id number] Subs Hosp L2
--- NOTE | 2018-10-20 08:51 | DCINST_ITS ---
- Discharge Diagnoses Current Active Problems: Current Active and Chronic Problems (Last Updated 10/19/18 @ 17:45 by Jenny Lui) Atherosclerotic heart disease of [place] coronary artery without angina pectoris (Chronic) Successful PTCA/JOE proximal LAD with a 3.5 x 32 Promus Synergy stent 10/19/2018 Stented coronary artery (Chronic 10/19/18) Successful PTCA/JOE proximal LAD with a 3.5 x 32 Promus Synergy stent per [facility]N @ [facility] 10/19/2018 NSTEMI (non-ST elevated myocardial infarction) (Acute) You will use the following diet at home:: Renal (restricted protein/sodium) Your food should be the consistency of: Regular Your liquids should be the consistency of: Regular/Thin Discharge Activity: Return to Normal Activity, - - weight bearing status as previously permitted by Dr. Miranda. Call your doctor if you observe: Fever of 101 or Higher, Shortness of breath, Chest pain Allergies/Adverse Reactions: Allergies calcium [From PhosLo] Allergy (Verified 10/18/18 10:59) Hives Medications to take at Discharge Hydralazine HCl 100 mg PO TID 07/06/17 Insulin Detemir [Levemir FlexPen] 10 units SC QHS 07/06/17 Insulin Detemir [Levemir FlexPen] 13 units SC DAILY 07/06/17 Latanoprost 0.005% [Xalatan Opthalmic] 1 drp EACH EYE QHS 07/06/17 Metoprolol Tartrate 25 mg PO QHS 07/06/17 Metoprolol Tartrate 37.5 mg PO DAILY 07/06/17 Sevelamer Carbonate [Renvela] 1,600 mg PO TIDCM 07/06/17 Simvastatin 40 mg PO QHS 07/06/17 Minoxidil [Loniten] 2.5 mg PO DAILY 10/18/18 Acetaminophen [Tylenol Tablet] 650 mg PO Q6H PRN PRN tablet 10/20/18 Aspirin E.C. [Ecotrin] 81 mg PO DAILY@0800 tablet 10/20/18 Clopidogrel Bisulfate [Plavix] 75 mg PO DAILY #30 tablet 10/20/18 Losartan Potassium [Cozaar] 50 mg PO DAILY #30 tablet 10/20/18 The following prescriptions were given: Clopidogrel Bisulfate [Plavix] 75 mg PO DAILY #30 tablet Losartan Potassium [Cozaar] 50 mg PO DAILY #30 tablet Orders to be completed after discharge: Phase II, Outpatient Cardiac Rehab Location: None Selected Primary Care Physician: Peter Coronado MD [Primary Care Provider] - Within 2 Weeks Test Results: Test results from this visit will be discussed in further detail at your follow- up appointment, if applicable. Please Follow Up With: Keyshawn Mcghee MD When: 2-4 weeks Please Follow Up With: Isaiah Miranda DPM When: next scheduled appointment. [facility]: Friday, Friday, Friday Proposed Discharge Date: 10/20/18
--- NOTE | 2018-10-20 08:51 | PCM.DC.SUM ---
Discharge Date and Diagnosis - Problem List Patient Problems: Active and Suspected Problems (Last Updated 10/19/18 @ 17:45 by Jenny Lui) NSTEMI (non-ST elevated myocardial infarction) (Acute) Date of Admission: 10/18/18 Date of Discharge: 10/20/18 - Primary Discharge Diagnosis Active and Suspected Problems (Last Updated 10/19/18 @ 17:45 by Jenny Lui) NSTEMI (non-ST elevated myocardial infarction) (Acute) 1. NSTEMI medical mgmt with ASA, plavix, statin s/p PCI with JOE to proximal LAD on 10/19 currently symptom free follow up with cardiology as outpt 2. Nausea and vomiting resolved / #1 3. Hypertensive urgency resolved. Improved after HD Lisinopril DC'd, losartan 50 started and will continue. 4. DM1: continue Lantus add SSI had hypoglycemia with AM lab. Received some crackers and doing better. Not hypoglycemic at home. Likely related with being NPO for period of time yesterday. 5. ESRD: on HD QMWF, states that he has been compliant with his HD Had HD post cath on 10/19 6. Right diabetic foot infection: s/p resection of prominent deformed bone on right foot still has cast on, but full weight-bearing (according to the patient) follow up with Dr. Miranda - Secondary Discharge Diagnosis Chronic Problems (Last Updated 10/19/18 @ 17:45 by Jenny Lui) Atherosclerotic heart disease of [place] coronary artery without angina pectoris (Chronic) Successful PTCA/JOE proximal LAD with a 3.5 x 32 Promus Synergy stent 10/19/2018 Stented coronary artery (Chronic 10/19/18) Successful PTCA/JOE proximal LAD with a 3.5 x 32 Promus Synergy stent per [facility] @ [facility] 10/19/2018 Chronic kidney disease (Chronic) stage 3 Depression (Chronic) Hyperlipidemia (Chronic) Delayed wound healing (Chronic) Ulcer of right foot with fat layer exposed (Chronic) History of iron deficiency (Chronic) Anemia due to chronic kidney disease (Chronic) HTN (hypertension) (Chronic) Hypomagnesemia (Chronic) Diabetes mellitus type 1 (Chronic) ESRD (end stage renal disease) on dialysis (Chronic) Diabetic neuropathy (Chronic) 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 Miranda Peripheral vascular disease (Chronic) Glaucoma (Chronic) Diabetes mellitus with neuropathy (Chronic) Microcytic anemia (Chronic) persists despite iron supplementation, possible alpha thalasemia Benign essential hypertension (Chronic) Hospital Course and Treatment Imaging Results: Clinical Impression(s) from Imaging Studies Chest X-Ray 10/18/18 11:17 IMPRESSION: No acute cardiopulmonary process. Electronically Signed: Rafita Onofre MD at 12:21 EDT Tel , Service support , Abdomen/Pelvis CT 10/18/18 13:27 IMPRESSION: Prominent aortoiliac and proximal femoral atherosclerosis. Coronary atherosclerosis. Hepatomegaly. No acute abdominopelvic process is otherwise evident. Electronically Signed: Rafita Onofre MD at 14:24 EDT Tel , Service support , Keyshawn Mcghee MD: cardiology Kirk Cleeste MD: nephrology. Operations: - - 04/12/16 excisional debridement of the right foot ulcer with right tenoachilles tendon lengthening by Dr. Miranda Procedures: Cardiac catheterization, Dialysis Summary of Care Provided: The patient is a 48 year old M presents with nausea and vomiting. Patient was found to have a non-ST vision myocardial infarction and started on medical management. Patient was taken for left heart catheterization on the and was found to have 75% stenosis of the proximal left anterior descending artery. Patient had a drug-eluting stent placed. Patient tolerated procedure well. Post-cath, patient was noted to be probably hypertensive, with systolic in the 180s. Likely attributable to the fact the patient had not had dialysis since the prior Friday and also anxiety. Patient's blood pressure medications were changed her from lisinopril to losartan and did have dialysis on the . Blood pressure has improved patient is otherwise feeling well. Patient will continue with aspirin, Plavix and atorvastatin. Patient follow-up cardiology in the coming weeks. Patient will continue with his routine dialysis on Friday. [] Patient Problems: Active and Suspected Problems (Last Updated 10/19/18 @ 17:45 by Jenny Lui) NSTEMI (non-ST elevated myocardial infarction) (Acute) - Physical Exam General: Alert, No apparent distress HEENT: Atraumatic, Normocephalic Oral: Moist Mucosa, No Gingival or Mucosal Lesions/ Ulcerations Neck: No Nodes, Thyroid Normal Size and Texture Lungs: Clear to auscultation, Normal air movement, No rhonchi, No wheeze Cardiovascular: Regular rate, Regular Rhythm, Normal S1, Normal S2, No murmurs Abdomen: Bowel Sounds Present, Soft, Non Tender, Non-Distended Extremities: - - right leg in cast Skin: No rashes, No breakdown Psych/Mental Status: Normal Affect, Appropriate Vital Signs Temp Pulse Resp BP Pulse Ox 37.0 C 90 16 152/73 H 98 10/20/18 04:00 10/20/18 07:00 10/20/18 07:00 10/20/18 07:00 10/20/18 07:00 Oxygen Delivery Method Room Air Weight: 63.957 kg Body Mass Index (BMI) 17.8 Finger Stick Blood Glucose 370 Intake and Output for Last 24 Hours 10/18/18 10/19/18 10/20/18 23:59 23:59 23:59 Intake Total 42 / 42 903.2 / 903.2 1160 / 1160 Output Total 1300 / 1300 Balance 42 / 42 -396.8 / -396.8 1160 / 1160 Laboratory Tests Past 24 Hrs 10/19/18 10/19/18 10/20/18 05:15 10:24 03:55 WBC 7.6 RBC 5.37 Hgb 12.0 L Hct 37.5 L MCV 69.8 L MCH 22.3 L MCHC 32.0 RDW 15.8 H RDW Differential 39.4 Plt Count 138 L MPV 10.9 Immature Gran % (Auto) 0.300 Neut % (Auto) 72.1 H Lymph % (Auto) 16.8 L [place] % (Auto) 9.6 Eos % (Auto) 0.8 Baso % (Auto) 0.4 Absolute Neuts (auto) 5.5 Absolute Lymphs (auto) 1.28 Total Counted Not Reportable Activated Clotting Time 208 H Sodium Potassium Chloride Carbon Dioxide Anion Gap BUN Creatinine Estim Creat Clear Calc Est GFR (MDRD) Af Amer Est GFR (MDRD) Non-Af BUN/Creatinine Ratio Glucose Calcium Triglycerides 58 Cholesterol 117 LDL Cholesterol 54 VLDL Cholesterol 12 HDL Cholesterol 51 10/20/18 03:55 WBC RBC Hgb Hct MCV MCH MCHC RDW RDW Differential Plt Count MPV Immature Gran % (Auto) Neut % (Auto) Lymph % (Auto) [place] % (Auto) Eos % (Auto) Baso % (Auto) Absolute Neuts (auto) Absolute Lymphs (auto) Total Counted Activated Clotting Time Sodium 138 Potassium 3.4 L Chloride 97 L Carbon Dioxide 31.0 Anion Gap 10 BUN 28 H Creatinine 6.32 H Estim Creat Clear Calc 12.65 Est GFR (MDRD) Af Amer 12 L Est GFR (MDRD) Non-Af 10 L BUN/Creatinine Ratio 4.4 L Glucose 35 L* Calcium 8.2 L Triglycerides Cholesterol LDL Cholesterol VLDL Cholesterol HDL Cholesterol POC Glucose 10/20/18 10/20/18 10/20/18 07:54 05:25 04:59 POC Glucose 77 100 78 10/20/18 10/19/18 10/19/18 04:39 19:53 18:22 POC Glucose 38 L* 111 H 105 10/19/18 12:47 POC Glucose 137 H Discharge Diet: Renal Diet Discharge Activity: Return to Normal Activity, - - weight bearing status as previously permitted by Dr. Miranda. Call your doctor if you observe: Fever of 101 or Higher, Shortness of breath, Chest pain Home Medications: Medications to take at Discharge Hydralazine HCl 100 mg PO TID 07/06/17 Insulin Detemir [Levemir FlexPen] 10 units SC QHS 07/06/17 Insulin Detemir [Levemir FlexPen] 13 units SC DAILY 07/06/17 Latanoprost 0.005% [Xalatan Opthalmic] 1 drp EACH EYE QHS 07/06/17 Metoprolol Tartrate 25 mg PO QHS 07/06/17 Metoprolol Tartrate 37.5 mg PO DAILY 07/06/17 Sevelamer Carbonate [Renvela] 1,600 mg PO TIDCM 07/06/17 Simvastatin 40 mg PO QHS 07/06/17 Minoxidil [Loniten] 2.5 mg PO DAILY 10/18/18 Acetaminophen [Tylenol Tablet] 650 mg PO Q6H PRN PRN tablet 10/20/18 Aspirin E.C. [Ecotrin] 81 mg PO DAILY@0800 tablet 10/20/18 Clopidogrel Bisulfate [Plavix] 75 mg PO DAILY #30 tablet 10/20/18 Losartan Potassium [Cozaar] 50 mg PO DAILY #30 tablet 10/20/18 Following Prescrptions Were Given to Patient: Clopidogrel Bisulfate [Plavix] 75 mg PO DAILY #30 tablet Losartan Potassium [Cozaar] 50 mg PO DAILY #30 tablet Other Amb Orders: Phase II, Outpatient Cardiac Rehab Location: None Selected Primary Care Physician: Peter Coronado MD [Primary Care Provider] - Within 2 Weeks Please Follow Up With: Keyshawn Mcghee MD When: 2-4 weeks Please Follow Up With: Isaiah Miranda DPM When: next scheduled appointment. [facility] When: Friday, Friday, Friday Disposition: Home Minutes spent on discharge:: 32 Patient Condition:: Good Medical Necessity - Tobacco Use Smoking Status: Former smoker Tobacco Use: Non-smoker Meaningful Use Info Meaningful Use Diagnoses (Choose all that apply): AMI - AMI Aspirin given w/in 24hrs of arrival?: Yes ASA at discharge?: Yes Statins at discharge?: Yes Tahir/ARB at discharge?: Yes Beta Ana Rosa at discharge?: Yes Done w/ Acute [place] measure.: Yes Code Visit Inpatient E&M: 68053 Disch Hosp
--- NOTE | 2018-10-20 08:55 | DS.PCM_ITS ---
Discharge Date and Diagnosis - Problem List Patient Problems: Active and Suspected Problems (Last Updated 10/19/18 @ 17:45 by Jenny Lui) NSTEMI (non-ST elevated myocardial infarction) (Acute) Date of Admission: 10/18/18 Date of Discharge: 10/20/18 - Primary Discharge Diagnosis Active and Suspected Problems (Last Updated 10/19/18 @ 17:45 by Jenny Lui) NSTEMI (non-ST elevated myocardial infarction) (Acute) 1. NSTEMI * medical mgmt with ASA, plavix, statin * s/p PCI with JOE to proximal LAD on 10/19 * currently symptom free * follow up with cardiology as outpt 2. Nausea and vomiting * resolved * 2/2 #1 3. Hypertensive urgency * resolved. Improved after HD * Lisinopril DC'd, losartan 50 started and will continue. 4. DM1: * continue Lantus * add SSI * had hypoglycemia with AM lab. Received some crackers and doing better. Not h ypoglycemic at home. Likely related with being NPO for period of time yesterday. 5. ESRD: * on HD QMWF, states that he has been compliant with his HD * Had HD post cath on 10/19 6. Right diabetic foot infection: * s/p resection of prominent deformed bone on right foot * still has cast on, but full weight-bearing (according to the patient) * follow up with Dr. Miranda - Secondary Discharge Diagnosis Chronic Problems (Last Updated 10/19/18 @ 17:45 by Jenny Lui) Atherosclerotic heart disease of [place] coronary artery without angina pectoris (Chronic) Successful PTCA/JOE proximal LAD with a 3.5 x 32 Promus Synergy stent 10/19/2018 Stented coronary artery (Chronic 10/19/18) Successful PTCA/JOE proximal LAD with a 3.5 x 32 Promus Synergy stent per [facility] @ [facility] 10/19/2018 Chronic kidney disease (Chronic) stage 3 Depression (Chronic) Hyperlipidemia (Chronic) Delayed wound healing (Chronic) Ulcer of right foot with fat layer exposed (Chronic) History of iron deficiency (Chronic) Anemia due to chronic kidney disease (Chronic) HTN (hypertension) (Chronic) Hypomagnesemia (Chronic) Diabetes mellitus type 1 (Chronic) ESRD (end stage renal disease) on dialysis (Chronic) Diabetic neuropathy (Chronic) 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 Miranda Peripheral vascular disease (Chronic) Glaucoma (Chronic) Diabetes mellitus with neuropathy (Chronic) Microcytic anemia (Chronic) persists despite iron supplementation, possible alpha thalasemia Benign essential hypertension (Chronic) Hospital Course and Treatment Imaging Results: Clinical Impression(s) from Imaging Studies Chest X-Ray 10/18/18 11:17 IMPRESSION: No acute cardiopulmonary process. Electronically Signed: Rafita Onofre MD at 12:21 EDT Tel , Service support , Abdomen/Pelvis CT 10/18/18 13:27 IMPRESSION: Prominent aortoiliac and proximal femoral atherosclerosis. Coronary atherosclerosis. Hepatomegaly. No acute abdominopelvic process is otherwise evident. Electronically Signed: Rafita Onofre MD at 14:24 EDT Tel , Service support , Keyshawn Mcghee MD: cardiology Kirk Celeste MD: nephrology. Operations: - - 04/12/16 excisional debridement of the right foot ulcer with right tenoachilles tendon lengthening by Dr. Miranda Procedures: Cardiac catheterization, Dialysis Summary of Care Provided: The patient is a 48 year old M presents with nausea and vomiting. Patient was found to have a non-ST vision myocardial infarction and started on medical management. Patient was taken for left heart catheterization on the and was found to have 75% stenosis of the proximal left anterior descending artery. Patient had a drug-eluting stent placed. Patient tolerated procedure well. Post-cath, patient was noted to be probably hypertensive, with systolic in the 180s. Likely attributable to the fact the patient had not had dialysis since the prior Friday and also anxiety. Patient's blood pressure medications were changed her from lisinopril to losartan and did have dialysis on the . Blood pressure has improved patient is otherwise feeling well. Patient will continue with aspirin, Plavix and atorvastatin. Patient follow-up cardiology in the coming weeks. Patient will continue with his routine dialysis on Friday. [] Patient Problems: Active and Suspected Problems (Last Updated 10/19/18 @ 17:45 by Jenny Lui) NSTEMI (non-ST elevated myocardial infarction) (Acute) - Physical Exam General: Alert, No apparent distress HEENT: Atraumatic, Normocephalic Oral: Moist Mucosa, No Gingival or Mucosal Lesions/ Ulcerations Neck: No Nodes, Thyroid Normal Size and Texture Lungs: Clear to auscultation, Normal air movement, No rhonchi, No wheeze Cardiovascular: Regular rate, Regular Rhythm, Normal S1, Normal S2, No murmurs Abdomen: Bowel Sounds Present, Soft, Non Tender, Non-Distended Extremities: - - right leg in cast Skin: No rashes, No breakdown Psych/Mental Status: Normal Affect, Appropriate Vital Signs Temp Pulse Resp BP Pulse Ox 37.0 C 90 16 152/73 H 98 10/20/18 04:00 10/20/18 07:00 10/20/18 07:00 10/20/18 07:00 10/20/18 07:00 Oxygen Delivery Method Room Air Weight: 63.957 kg Body Mass Index (BMI) 17.8 Finger Stick Blood Glucose 370 Intake and Output for Last 24 Hours 10/18/18 10/19/18 10/20/18 23:59 23:59 23:59 Intake Total 42 / 42 903.2 / 903.2 1160 / 1160 Output Total 1300 / 1300 Balance 42 / 42 -396.8 / -396.8 1160 / 1160 Laboratory Tests Past 24 Hrs 10/19/18 10/19/18 10/20/18 05:15 10:24 03:55 WBC 7.6 RBC 5.37 Hgb 12.0 L Hct 37.5 L MCV 69.8 L MCH 22.3 L MCHC 32.0 RDW 15.8 H RDW Differential 39.4 Plt Count 138 L MPV 10.9 Immature Gran % (Auto) 0.300 Neut % (Auto) 72.1 H Lymph % (Auto) 16.8 L [place] % (Auto) 9.6 Eos % (Auto) 0.8 Baso % (Auto) 0.4 Absolute Neuts (auto) 5.5 Absolute Lymphs (auto) 1.28 Total Counted Not Reportable Activated Clotting Time 208 H Sodium Potassium Chloride Carbon Dioxide Anion Gap BUN Creatinine Estim Creat Clear Calc Est GFR (MDRD) Af Amer Est GFR (MDRD) Non-Af BUN/Creatinine Ratio Glucose Calcium Triglycerides 58 Cholesterol 117 LDL Cholesterol 54 VLDL Cholesterol 12 HDL Cholesterol 51 10/20/18 03:55 WBC RBC Hgb Hct MCV MCH MCHC RDW RDW Differential Plt Count MPV Immature Gran % (Auto) Neut % (Auto) Lymph % (Auto) [place] % (Auto) Eos % (Auto) Baso % (Auto) Absolute Neuts (auto) Absolute Lymphs (auto) Total Counted Activated Clotting Time Sodium 138 Potassium 3.4 L Chloride 97 L Carbon Dioxide 31.0 Anion Gap 10 BUN 28 H Creatinine 6.32 H Estim Creat Clear Calc 12.65 Est GFR (MDRD) Af Amer 12 L Est GFR (MDRD) Non-Af 10 L BUN/Creatinine Ratio 4.4 L Glucose 35 L* Calcium 8.2 L Triglycerides Cholesterol LDL Cholesterol VLDL Cholesterol HDL Cholesterol POC Glucose 10/20/18 10/20/18 10/20/18 07:54 05:25 04:59 POC Glucose 77 100 78 10/20/18 10/19/18 10/19/18 04:39 19:53 18:22 POC Glucose 38 L* 111 H 105 10/19/18 12:47 POC Glucose 137 H Discharge Diet: Renal Diet Discharge Activity: Return to Normal Activity, - - weight bearing status as previously permitted by Dr. Miranda. Call your doctor if you observe: Fever of 101 or Higher, Shortness of breath, Chest pain Home Medications: Medications to take at Discharge Hydralazine HCl 100 mg PO TID 07/06/17 Insulin Detemir [Levemir FlexPen] 10 units SC QHS 07/06/17 Insulin Detemir [Levemir FlexPen] 13 units SC DAILY 07/06/17 Latanoprost 0.005% [Xalatan Opthalmic] 1 drp EACH EYE QHS 07/06/17 Metoprolol Tartrate 25 mg PO QHS 07/06/17 Metoprolol Tartrate 37.5 mg PO DAILY 07/06/17 Sevelamer Carbonate [Renvela] 1,600 mg PO TIDCM 07/06/17 Simvastatin 40 mg PO QHS 07/06/17 Minoxidil [Loniten] 2.5 mg PO DAILY 10/18/18 Acetaminophen [Tylenol Tablet] 650 mg PO Q6H PRN PRN tablet 10/20/18 Aspirin E.C. [Ecotrin] 81 mg PO DAILY@0800 tablet 10/20/18 Clopidogrel Bisulfate [Plavix] 75 mg PO DAILY #30 tablet 10/20/18 Losartan Potassium [Cozaar] 50 mg PO DAILY #30 tablet 10/20/18 Following Prescrptions Were Given to Patient: Clopidogrel Bisulfate [Plavix] 75 mg PO DAILY #30 tablet Losartan Potassium [Cozaar] 50 mg PO DAILY #30 tablet Other Amb Orders: Phase II, Outpatient Cardiac Rehab Location: None Selected Primary Care Physician: Peter Coronado MD [Primary Care Provider] - Within 2 Weeks Please Follow Up With: Keyshawn Mcghee MD When: 2-4 weeks Please Follow Up With: Isaiah Miranda DPM When: next scheduled appointment. [facility] When: Friday, Friday, Friday Disposition: Home Minutes spent on discharge:: 32 Patient Condition:: Good Medical Necessity - Tobacco Use Smoking Status: Former smoker Tobacco Use: Non-smoker Meaningful Use Info Meaningful Use Diagnoses (Choose all that apply): AMI - AMI Aspirin given w/in 24hrs of arrival?: Yes ASA at discharge?: Yes Statins at discharge?: Yes Tahir/ARB at discharge?: Yes Beta Ana Rosa at discharge?: Yes Done w/ Acute [place] measure.: Yes Code Visit Inpatient E&M: 29806 Disch Hosp
--- NOTE | 2018-10-20 09:26 | CASEMGMT ---
RN CM Assessment Presentation: NSTEMI, PCI of proximal LAD. Intro role of CM and purpose of RN CM assessment to patient in room. Demographics, PCP and Pharmacy verified. Per pt he is independent, plans to return home. PCP: Dr. Coronado Specialists: Dr. Felipe, nephrology Preferred Pharmacy: [facility] Insurance: [employer] Prescription Benefit: yes, states no difficulty with having prescriptions filled Dialysis: [facility]: Shanna, exwife Living Arrangements: Pt states he lives independently. Denies dc needs. States is compliant with dialysis Transportation: [employer] provides transportation to dialysis DME: none HHC: none Patient DC goals:home DC PLAN: Home Bernard BACK RN ACM
--- NOTE | 2018-10-20 10:00 | EKG12_ITS ---
Test Reason : POST HEART CATH Blood Pressure : / mmHG Vent. Rate : 080 BPM Atrial Rate : 080 BPM P-R Int : 172 ms QRS Dur : 086 ms QT Int : 454 ms P-R-T Axes : 077 073 064 degrees QTc Int : 523 ms Normal sinus rhythm Septal infarct , age undetermined Prolonged QT Abnormal ECG Confirmed by KAILA MENDEZ, PRAVEENA ([id number]), editor map ALISON RHODES ([id number]) on 10/21/2018 2:10:53 PM Referred By: DIAZ Confirmed By:PRAVEENA BRIGHT MD
[2018-10-20] MEDS: Losartan Potassium 50 MG Tablet PO (10:49)
[2018-10-20] MEDS: Minoxidil 2.5 MG Tablet PO (10:49)
[2018-10-20] MEDS: Metoprolol Tartrate 25 MG Tablet 37.5 MG PO (10:49)
[2018-10-20 12:46] LABS: ACT Activated Clotting Time 153 sec (74-137)
== END 2018-10-20 11:23 | disposition home or self-care (01) | DRG 246 ==
LOC: ED 11:52 → PCU 10-19 08:25 → ICU 10-19 10:46
PROVIDERS: Internal Medicine Cardiovascular Disease; Emergency Provider Emergency Medicine; Family Provider Family Medicine; PCP Family Medicine
DX: I21.4 Non-ST elevation (NSTEMI) myocardial infarction (principal); N18.6 End stage renal disease; I12.0 Hypertensive chronic kidney disease with stage 5 chronic kidney disease or end stage renal disease; E46 Unspecified protein-calorie malnutrition; Z68.1 Body mass index [BMI] 19.9 or less, adult; E10.649 Type 1 diabetes mellitus with hypoglycemia without coma; I16.0 Hypertensive urgency; I25.10 Atherosclerotic heart disease of native coronary artery without angina pectoris; Z99.2 Dependence on renal dialysis; E78.5 Hyperlipidemia, unspecified; F32.9 Major depressive disorder, single episode, unspecified; D63.1 Anemia in chronic kidney disease; E10.51 Type 1 diabetes mellitus with diabetic peripheral angiopathy without gangrene; E10.22 Type 1 diabetes mellitus with diabetic chronic kidney disease; E10.40 Type 1 diabetes mellitus with diabetic neuropathy, unspecified; H40.9 Unspecified glaucoma; Z87.891 Personal history of nicotine dependence; Z89.431 Acquired absence of right foot; Z79.4 Long term (current) use of insulin
CPT/HCPCS: 36415; 71046; 74150; 74176; 80048; 80061; 80076; 82009; 82803; 82962; 83605; 83735; 84100; 84484; 85025; 85027; 85347; 85610; 85730; 87040; 90937; 92928; 93005; 93306; 93458; 99152; 99153; 99285; J7030; Q9967; A4216; C1725; C1769; C1874; C1887; C1894; C9600; G0257; J2405

== ENCOUNTER 2018-10-21 05:44 | Observation (INO) | payer MEDICARE, MEDICAID, SELFPAY ==
[2018-10-18 15:58] VITALS: BMI 17.8
[2018-10-21] VITALS (14 sets, daily range): BP systolic 104–173; BP diastolic 58–92; PULSE 75–110; RESP 15–25; TEMP 36.7–37; O2SAT 97–100; BMI 18.1; BMI 18.0
--- NOTE | 2018-10-21 06:01 | EKG12_ITS ---
Test Reason : CP Blood Pressure : / mmHG Vent. Rate : 102 BPM Atrial Rate : 102 BPM P-R Int : 150 ms QRS Dur : 086 ms QT Int : 380 ms P-R-T Axes : 076 -04 072 degrees QTc Int : 495 ms Sinus tachycardia Possible Left atrial enlargement Septal infarct , age undetermined Abnormal ECG Confirmed by AVELINO PERALES ([id number]), non linear editor ROMERO AGUIAR ([id number] on 10/26/2018 3:10:22 PM Referred By: NAVEED Confirmed By:AVELINO PERALES
--- NOTE | 2018-10-21 06:01 | RAD_ITS ---
STUDY: X-RAY CHEST REASON FOR EXAM: Male, 48 years old. Chest pain. Status post stent placement yesterday. TECHNIQUE: 2 AP portable views of the chest were obtained. COMPARISON: 10/18/2018. FINDINGS: The lungs are clear and expanded. There is no demonstrated pleural abnormality. Normal size heart. Normal mediastinum and [place]. Normal visualized pulmonary arteries. There is atherosclerotic calcification of the aortic arch with tortuosity. Normal visualized thoracic spine. Normal visualized ribs, clavicles, and shoulders. There is no demonstrated abnormality of the visualized soft tissue structures of the upper abdomen. RAD/Chest 1 View (Portable) IMPRESSION: No evidence for acute cardiopulmonary pathology. Electronically Signed: Teja Alexis MD at 6:25 EDT , Service support ,
[2018-10-21 06:20] LABS: Absolute Lymphocyte Count 2.64 X10^3/ul (0.83-4.51); Absolute Neutrophil Count 3.9 X10^3/uL (2.0-7.7); Basophil# 0.03 X10^3/uL; Basophil% 0.4 % (0-1); Eosinophil# 0.26 X10^3/uL; Eosinophils% 3.5 % (0-5); Hematocrit 37.5 % (40-54); Hemoglobin 12.5 g/dl (13.0-16.5); Lymphocyte # 2.64 X10^3/ul (4.0); Lymphocyte % 35.1 % (19-41); Mean Corp Hgb Conc 33.3 g/gl (32-36); Mean Corpuscular Hgb 23.2 pg (27.0-32.0); Mean Corpuscular Volume 69.7 fL (80-94); Mean Platelet Vol. 10.6 fl (6.2-12.0); Monocyte# 0.66 X10^3/uL; Monocyte% 8.8 % (0-10); Neutrophil # 3.92 X10^3/uL (2.7-7.7); Neutrophil % 52.1 % (47-70); Platelet Count 118 K/mm3 (150-450); RBC Distribution Width CV 15.6 % (11.6-14.6); RBC Distribution Width SD 38.7 fl (35.1-43.9); Red Blood Count 5.38 M/mm3 (4.6-6.2); White Blood Count 7.5 K/mm3 (4.4-11.0)
[2018-10-21 06:28] LABS: Differential Indicated SCAN CRITERIA MET; POSITIVE COUNT NO; POSITIVE DIFFERENTIAL NO; POSITIVE MORPHOLOGY YES
[2018-10-21 06:32] LABS: Anion Gap 17 (5-15); BUN 44 mg/dL (7-18); BUN/Creat Ratio 4.6 RATIO (10-20); Calcium,Total 8.8 mg/dL (8.5-10.1); Chloride 91 mmol/L (98-107); Creatinine, Serum 9.56 mg/dL (0.70-1.30); EST Glomerular Filtration Rate 6 mL/min (>60); Est Glom Filt Rate - Afr Amer 8 mL/min (>60); Estimated Creatinine Clearance 8.62 ml/min; Glucose 81 mg/dL (74-106); Potassium 3.8 mmol/L (3.5-5.1); Sodium Level 133 mmol/L (136-145)
[2018-10-21] MEDS: Aspirin 81 MG TAB.CHEW 324 MG PO (06:37)
[2018-10-21] MEDS: Nitroglycerin (INPATIENT USE) 0.4 MG TAB.SUBL SUBLINGUAL ×3 (06:40→06:50)
[2018-10-21] MEDS: Morphine 4 MG/ML Syringe IV (06:59)
[2018-10-21 07:00] LABS: Differential Comment SCANNED
--- NOTE | 2018-10-21 07:06 | ED.VISSUMM ---
- ER Visit Summary Date of Service: 10/21/18 Chief Complaint: Chest pain History of Present Illness: The patient is a 48 M who presents with chest pain. This occurred about 1 to 2 hours before presentation. He rates it as severe as 7 out of 10. He describes it as dull. It is located substernally. The patient was just admitted diagnosed with an NSTEMI and underwent cardiac catheterization with stent 2 days ago. He also complains of feeling lightheaded, nauseated, short of breath. He became diaphoretic with the onset of symptoms today. Physical Examination: Heart rate 110 respiratory rate 24 afebrile pulse ox 100% Moist mucous membranes Heart regular tachycardia Lungs clear Abdomen soft Alert Test Results: EKG shows sinus rhythm at a rate of 102. Labs notable for creatinine 9.56, BUN 44, potassium normal. Troponin is 1.12. Chest x-ray shows no acute pathology. Emergency Department Course and Treatment: Patient was given aspirin and sublingual nitroglycerin without change in symptoms. He was given IV morphine and symptoms have resolved. I am concerned given his description of chest pain with diaphoresis and recent [place]. Who agrees with plan for hospitalist admission and cardiology consultation. Treatment Plan: [] Disposition: Admit Impression: Chest pain This note was generated with [employer] dictation software. It may contain incorrect words, spelling, and punctuation that were not noted in review of the chart prior to signing ED Disposition - Plan for ED Patient: Referrals: Peter Coronado MD [Primary Care Provider] -
--- NOTE | 2018-10-21 07:14 | NURSING ---
PCU OBS NANCY SONG
--- NOTE | 2018-10-21 07:18 | NURSING ---
DR CRUZ IN ER
--- NOTE | 2018-10-21 07:25 | NURSING ---
PCU ANKLE FX WITH POSSIBLE ASPIRATION PNEUMONITIS AND RESP DISTRESS DELPHINE
--- NOTE | 2018-10-21 07:37 | PCM.HP.STD ---
Problem List (1) Chest pain Status: Acute Qualifiers: Ischemic chest pain type: unspecified angina pectoris type History of Present Illness Date of Admission: 10/21/18 Chief Complaint: chest pain. The patient is a 48 year old M presents with chest pain. Patient said that he was getting up today for dialysis, felt dizzy and had nausea and vomiting. Became anxious and started having midsternal chest pain. Patient presented to the emergency room and received nitroglycerin which alleviated his chest pain. Patient troponin was elevated but is actually down from where he was earlier this week. Patient did receive a drug-eluting stent to the proximal LAD on October 19 this week. Also noted when patient did get his heart catheterization he did have profound anxiety afterwards. [] Past Medical History Past Medical History (Chronic Problems): Chronic Problems (Last Reviewed 10/21/18 @ 07:39 by Jenaro Gant DO) Atherosclerotic heart disease of [place] coronary artery without angina pectoris (Chronic) Successful PTCA/JOE proximal LAD with a 3.5 x 32 Promus Synergy stent 10/19/2018 Stented coronary artery (Chronic 10/19/18) Successful PTCA/JOE proximal LAD with a 3.5 x 32 Promus Synergy stent per DJN @ [facility] 10/19/2018 Chronic kidney disease (Chronic) stage 3 Depression (Chronic) Hyperlipidemia (Chronic) Delayed wound healing (Chronic) Ulcer of right foot with fat layer exposed (Chronic) History of iron deficiency (Chronic) Anemia due to chronic kidney disease (Chronic) HTN (hypertension) (Chronic) Hypomagnesemia (Chronic) Diabetes mellitus type 1 (Chronic) ESRD (end stage renal disease) on dialysis (Chronic) Diabetic neuropathy (Chronic) 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 Miranda Peripheral vascular disease (Chronic) Glaucoma (Chronic) Diabetes mellitus with neuropathy (Chronic) Microcytic anemia (Chronic) persists despite iron supplementation, possible alpha thalasemia Benign essential hypertension (Chronic) Medical History: Medical History (Last Reviewed 10/21/18 @ 07:39 by Jenaro Gant DO) Atherosclerotic heart disease of [place] coronary artery without angina pectoris (Chronic) I25.10 Successful PTCA/JOE proximal LAD with a 3.5 x 32 Promus Synergy stent 10/19/2018 NSTEMI (non-ST elevated myocardial infarction) (Acute) I21.4 Chronic kidney disease (Chronic) N18.9 stage 3 Depression (Chronic) F32.9 Hyperlipidemia (Chronic) E78.5 Malnutrition (Acute) E46 Delayed wound healing (Chronic) T14.8 Ulcer of right foot with fat layer exposed (Chronic) L97.512 History of iron deficiency (Chronic) Z86.39 Anemia due to chronic kidney disease (Chronic) N18.9, D63.1 HTN (hypertension) (Chronic) I10 Hypomagnesemia (Chronic) E83.42 Diabetic foot infection (Acute) E11.69, L08.9 superficial R foot at the incision site for the R TMA Diabetes mellitus type 1 (Chronic) ESRD (end stage renal disease) on dialysis (Chronic) N18.6, Z99.2 Diabetic neuropathy (Chronic) E11.40 Hyponatremia (Acute) E87.1 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) E10.29 Acute on chronic anemia (Acute) Cellulitis of right foot (Acute) L03.115 Peripheral vascular disease (Chronic) I73.9 Glaucoma (Chronic) H40.9 Diabetes mellitus with neuropathy (Chronic) E11.40 Microcytic anemia (Chronic) D50.9 persists despite iron supplementation, possible alpha thalasemia Benign essential hypertension (Chronic) I10 Allergies calcium [From PhosLo] Allergy (Verified 10/21/18 05:48) Hives Home Medications: Ambulatory Orders Medication Instructions Recorded Hydralazine HCl 100 mg PO TID 07/06/17 Insulin Detemir [Levemir FlexPen] 10 units SC QHS 07/06/17 Insulin Detemir [Levemir FlexPen] 13 units SC DAILY 07/06/17 Latanoprost 0.005% [Xalatan 1 drp EACH EYE QHS 07/06/17 Opthalmic] Metoprolol Tartrate 25 mg PO QHS 07/06/17 Metoprolol Tartrate 37.5 mg PO DAILY 07/06/17 Sevelamer Carbonate [Renvela] 1,600 mg PO TIDCM 07/06/17 Minoxidil [Loniten] 2.5 mg PO DAILY 10/18/18 Acetaminophen [Tylenol Tablet] 650 mg PO Q6H PRN PRN tablet 10/20/18 Aspirin E.C. [Ecotrin] 81 mg PO DAILY@0800 tablet 10/20/18 Atorvastatin Calcium [Lipitor] 40 mg PO QHS #30 tablet 10/20/18 Clopidogrel Bisulfate [Plavix] 75 mg PO DAILY #30 tablet 10/20/18 Losartan Potassium [Cozaar] 50 mg PO DAILY #30 tablet 10/20/18 Surgical History: Surgical History (Last Reviewed 10/21/18 @ 07:39 by Jenaro Gant DO) Stented coronary artery (Chronic) Onset Date: 10/19/18 Z95.5 Successful PTCA/JOE proximal LAD with a 3.5 x 32 Promus Synergy stent per DJN @ [facility] 10/19/2018 Status post transmetatarsal amputation of right foot (Chronic) Z89.431 12/27 Dr. Miranda Presence of surgically created primary arteriovenous shunt for hemodialysis Z99.2 LUE Status post peripheral artery angioplasty Z98.62 Surgical History: - - transmetatarsal amputation right forefoot December 2015, right great toe amputation Feb 2014. LUE fistula Smoking Status: Never smoker - *Family History Maternal Family History: Family History (Last Reviewed 10/21/18 @ 07:39 by Jenaro Gant DO) Sister Heart disease Uncle Colon cancer History Items: Diabetes, No pertinent history Paternal Family History: Family History (Last Reviewed 10/21/18 @ 07:39 by Jenaro Gant DO) Sister Heart disease Uncle Colon cancer History Items: Diabetes, No pertinent history Review of Systems Constitutional: Denies: Anorexia, Chills, Fever, Night Sweats, Malaise, Weakness Eyes: Denies: Blurred vision, Double vision HEENT: Denies: Head Aches, Sinus Congestion, Sinus Drainage Cardiovascular: Reports: Chest Pain. Denies: Edema Respiratory: Reports: Cough, Shortness of Breath Gastrointestinal: Reports: Nausea, Vomiting. Denies: Abdominal Pain, Diarrhea Genitourinary: Denies: Dysuria Musculoskeletal: Denies: Joint Pain, Joint Tenderness Skin: Denies: Rash, Wounds Neurological: Denies: Numbness, Tingling, Focal weakness Psychiatric: Denies: Anxiety, Depression Hematologic/ Lymphatic: Denies: Easy Bruising, Easy Bleeding Comment: A 10 point review of systems were negative except as mentioned in the history of present illness and the other review of systems. VTE Information - Inpt Only VTE Present on Admission: No VTE Pharm Prophylaxis ordered?: Yes Patient Problems: Active and Suspected Problems (Last Reviewed 10/21/18 @ 07:39 by Jenaro Gant DO) Chest pain (Acute) - Physical Exam General: Alert, Cooperative, No apparent distress HEENT: Atraumatic, Normocephalic Oral: Moist Mucosa, No Gingival or Mucosal Lesions/ Ulcerations Neck: No Nodes, Thyroid Normal Size and Texture Lungs: Clear to auscultation, Normal air movement, No rhonchi, No wheeze Cardiovascular: Regular rate, Regular Rhythm, Normal S1, Normal S2, No murmurs Abdomen: Bowel Sounds Present, Soft, Non Tender, Non-Distended, No Hepato-splenomegaly Extremities: No edema, No Calf Tenderness Skin: No rashes, No breakdown Musculoskeletal: No Tenderness to Palpation of Joints or Extremities Psych/Mental Status: Normal Affect, Appropriate Vital Signs Temp Pulse Resp BP Pulse Ox 36.8 C 99 20 H 145/92 H 100 10/21/18 05:45 10/21/18 07:00 10/21/18 07:00 10/21/18 07:00 10/21/18 07:00 Oxygen Delivery Method Room Air Weight: 65.9 kg Body Mass Index (BMI) 18.1 Finger Stick Blood Glucose 370 Laboratory Tests Past 24 Hrs 10/21/18 10/21/18 05:53 05:53 WBC 7.5 RBC 5.38 Hgb 12.5 L Hct 37.5 L MCV 69.7 L MCH 23.2 L MCHC 33.3 RDW 15.6 H RDW Differential 38.7 Plt Count 118 L MPV 10.6 Immature Gran % (Auto) 0.100 Neut % (Auto) 52.1 Lymph % (Auto) 35.1 [place] % (Auto) 8.8 Eos % (Auto) 3.5 Baso % (Auto) 0.4 Absolute Neuts (auto) 3.9 Absolute Lymphs (auto) 2.64 Total Counted Not Reportable Differential Comment SCANNED Sodium 133 L Potassium 3.8 Chloride 91 L Carbon Dioxide 25.0 Anion Gap 17 H BUN 44 H Creatinine 9.56 H* Estim Creat Clear Calc 8.62 Est GFR (MDRD) Af Amer 8 L Est GFR (MDRD) Non-Af 6 L BUN/Creatinine Ratio 4.6 L Glucose 81 Calcium 8.8 Troponin I 1.120 H* EKG NSR LVH. no acute changes. Chest x-ray reviewed and showed no acute process. No infiltrate, nor pulmonary edema. Assessment/Plan All Active Problems (Last Reviewed 10/21/18 @ 07:39 by Jenaro Gant DO) Chest pain (Acute) Problem with dialysis access (Acute) NSTEMI (non-ST elevated myocardial infarction) (Acute) Malnutrition (Acute) Diabetic foot infection (Acute) Hyponatremia (Acute) Acute on chronic anemia (Acute) Cellulitis of right foot (Acute) Amputated great toe of right foot (Resolved) Hammer toe of right foot (Resolved) Malnutrition (Resolved) Right forefoot osteomyelitis (Resolved) 1. Chest pain atypical possible anxiety/panic attack after dizziness Dr. Mcghee spoke with ED and was concerned for pericarditis and recommended NSAIDs and check CRP. cardiology on consult. troponins elevated, but trending down. will trend. 2. NSTEMI medical mgmt with ASA, plavix, statin s/p PCI with JOE to proximal LAD on 10/19 currently symptom free follow up with cardiology as outpt 3. DM1: continue Lantus add SSI had hypoglycemia with AM lab on 10/20. Received some crackers and doing better. Not hypoglycemic at home. 4. ESRD: on HD QMWF, states that he has been compliant with his HD Dr. Celeste aware and will plan for HD today. 5. Right diabetic foot infection: s/p resection of prominent deformed bone on right foot still has cast on, but full weight-bearing (according to the patient) follow up with Dr. Miranda 6. VTE proph: moderate risk given cast. SQ heparin. Code Visit OBSV E&M: 82027 Initial observation care L2
--- NOTE | 2018-10-21 07:42 | HP.PCM_ITS ---
Problem List (1) Chest pain Status: Acute Qualifiers: Ischemic chest pain type: unspecified angina pectoris type History of Present Illness Date of Admission: 10/21/18 Chief Complaint: chest pain. The patient is a 48 year old M presents with chest pain. Patient said that he was getting up today for dialysis, felt dizzy and had nausea and vomiting. Became anxious and started having midsternal chest pain. Patient presented to the emergency room and received nitroglycerin which alleviated his chest pain. Patient troponin was elevated but is actually down from where he was earlier this week. Patient did receive a drug-eluting stent to the proximal LAD on October 19 this week. Also noted when patient did get his heart catheterization he did have profound anxiety afterwards. [] Past Medical History Past Medical History (Chronic Problems): Chronic Problems (Last Reviewed 10/21/18 @ 07:39 by Jenaro Gant DO) Atherosclerotic heart disease of [place] coronary artery without angina pectoris (Chronic) Successful PTCA/JOE proximal LAD with a 3.5 x 32 Promus Synergy stent 10/19/2018 Stented coronary artery (Chronic 10/19/18) Successful PTCA/JOE proximal LAD with a 3.5 x 32 Promus Synergy stent per [facility]N @ [facility] 10/19/2018 Chronic kidney disease (Chronic) stage 3 Depression (Chronic) Hyperlipidemia (Chronic) Delayed wound healing (Chronic) Ulcer of right foot with fat layer exposed (Chronic) History of iron deficiency (Chronic) Anemia due to chronic kidney disease (Chronic) HTN (hypertension) (Chronic) Hypomagnesemia (Chronic) Diabetes mellitus type 1 (Chronic) ESRD (end stage renal disease) on dialysis (Chronic) Diabetic neuropathy (Chronic) 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 Miranda Peripheral vascular disease (Chronic) Glaucoma (Chronic) Diabetes mellitus with neuropathy (Chronic) Microcytic anemia (Chronic) persists despite iron supplementation, possible alpha thalasemia Benign essential hypertension (Chronic) Medical History: Medical History (Last Reviewed 10/21/18 @ 07:39 by Jenaro Gant DO) Atherosclerotic heart disease of [place] coronary artery without angina pectoris (Chronic) I25.10 Successful PTCA/JOE proximal LAD with a 3.5 x 32 Promus Synergy stent 10/19/2018 NSTEMI (non-ST elevated myocardial infarction) (Acute) I21.4 Chronic kidney disease (Chronic) N18.9 stage 3 Depression (Chronic) F32.9 Hyperlipidemia (Chronic) E78.5 Malnutrition (Acute) E46 Delayed wound healing (Chronic) T14.8 Ulcer of right foot with fat layer exposed (Chronic) L97.512 History of iron deficiency (Chronic) Z86.39 Anemia due to chronic kidney disease (Chronic) N18.9, D63.1 HTN (hypertension) (Chronic) I10 Hypomagnesemia (Chronic) E83.42 Diabetic foot infection (Acute) E11.69, L08.9 superficial R foot at the incision site for the R TMA Diabetes mellitus type 1 (Chronic) ESRD (end stage renal disease) on dialysis (Chronic) N18.6, Z99.2 Diabetic neuropathy (Chronic) E11.40 Hyponatremia (Acute) E87.1 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) E10.29 Acute on chronic anemia (Acute) Cellulitis of right foot (Acute) L03.115 Peripheral vascular disease (Chronic) I73.9 Glaucoma (Chronic) H40.9 Diabetes mellitus with neuropathy (Chronic) E11.40 Microcytic anemia (Chronic) D50.9 persists despite iron supplementation, possible alpha thalasemia Benign essential hypertension (Chronic) I10 Allergies calcium [From PhosLo] Allergy (Verified 10/21/18 05:48) Hives Home Medications: Ambulatory Orders Medication Instructions Recorded Hydralazine HCl 100 mg PO TID 07/06/17 Insulin Detemir [Levemir FlexPen] 10 units SC QHS 07/06/17 Insulin Detemir [Levemir FlexPen] 13 units SC DAILY 07/06/17 Latanoprost 0.005% [Xalatan 1 drp EACH EYE QHS 07/06/17 Opthalmic] Metoprolol Tartrate 25 mg PO QHS 07/06/17 Metoprolol Tartrate 37.5 mg PO DAILY 07/06/17 Sevelamer Carbonate [Renvela] 1,600 mg PO TIDCM 07/06/17 Minoxidil [Loniten] 2.5 mg PO DAILY 10/18/18 Acetaminophen [Tylenol Tablet] 650 mg PO Q6H PRN PRN tablet 10/20/18 Aspirin E.C. [Ecotrin] 81 mg PO DAILY@0800 tablet 10/20/18 Atorvastatin Calcium [Lipitor] 40 mg PO QHS #30 tablet 10/20/18 Clopidogrel Bisulfate [Plavix] 75 mg PO DAILY #30 tablet 10/20/18 Losartan Potassium [Cozaar] 50 mg PO DAILY #30 tablet 10/20/18 Surgical History: Surgical History (Last Reviewed 10/21/18 @ 07:39 by Jenaro Gant DO) Stented coronary artery (Chronic) Onset Date: 10/19/18 Z95.5 Successful PTCA/JOE proximal LAD with a 3.5 x 32 Promus Synergy stent per DJN @ [facility] 10/19/2018 Status post transmetatarsal amputation of right foot (Chronic) Z89.431 12/27 Dr. Miranda Presence of surgically created primary arteriovenous shunt for hemodialysis Z99.2 LUE Status post peripheral artery angioplasty Z98.62 Surgical History: - - transmetatarsal amputation right forefoot December 2015, right great toe amputation Feb 2014. LUE fistula Smoking Status: Never smoker - *Family History Maternal Family History: Family History (Last Reviewed 10/21/18 @ 07:39 by Jenaro Gant DO) Sister Heart disease Uncle Colon cancer History Items: Diabetes, No pertinent history Paternal Family History: Family History (Last Reviewed 10/21/18 @ 07:39 by Jenaro Gant DO) Sister Heart disease Uncle Colon cancer History Items: Diabetes, No pertinent history Review of Systems Constitutional: Denies: Anorexia, Chills, Fever, Night Sweats, Malaise, Weakness Eyes: Denies: Blurred vision, Double vision HEENT: Denies: Head Aches, Sinus Congestion, Sinus Drainage Cardiovascular: Reports: Chest Pain. Denies: Edema Respiratory: Reports: Cough, Shortness of Breath Gastrointestinal: Reports: Nausea, Vomiting. Denies: Abdominal Pain, Diarrhea Genitourinary: Denies: Dysuria Musculoskeletal: Denies: Joint Pain, Joint Tenderness Skin: Denies: Rash, Wounds Neurological: Denies: Numbness, Tingling, Focal weakness Psychiatric: Denies: Anxiety, Depression Hematologic/ Lymphatic: Denies: Easy Bruising, Easy Bleeding Comment: A 10 point review of systems were negative except as mentioned in the history of present illness and the other review of systems. VTE Information - Inpt Only VTE Present on Admission: No VTE Pharm Prophylaxis ordered?: Yes Patient Problems: Active and Suspected Problems (Last Reviewed 10/21/18 @ 07:39 by Jenaro Gant DO) Chest pain (Acute) - Physical Exam General: Alert, Cooperative, No apparent distress HEENT: Atraumatic, Normocephalic Oral: Moist Mucosa, No Gingival or Mucosal Lesions/ Ulcerations Neck: No Nodes, Thyroid Normal Size and Texture Lungs: Clear to auscultation, Normal air movement, No rhonchi, No wheeze Cardiovascular: Regular rate, Regular Rhythm, Normal S1, Normal S2, No murmurs Abdomen: Bowel Sounds Present, Soft, Non Tender, Non-Distended, No Hepato- splenomegaly Extremities: No edema, No Calf Tenderness Skin: No rashes, No breakdown Musculoskeletal: No Tenderness to Palpation of Joints or Extremities Psych/Mental Status: Normal Affect, Appropriate Vital Signs Temp Pulse Resp BP Pulse Ox 36.8 C 99 20 H 145/92 H 100 10/21/18 05:45 10/21/18 07:00 10/21/18 07:00 10/21/18 07:00 10/21/18 07:00 Oxygen Delivery Method Room Air Weight: 65.9 kg Body Mass Index (BMI) 18.1 Finger Stick Blood Glucose 370 Laboratory Tests Past 24 Hrs 10/21/18 10/21/18 05:53 05:53 WBC 7.5 RBC 5.38 Hgb 12.5 L Hct 37.5 L MCV 69.7 L MCH 23.2 L MCHC 33.3 RDW 15.6 H RDW Differential 38.7 Plt Count 118 L MPV 10.6 Immature Gran % (Auto) 0.100 Neut % (Auto) 52.1 Lymph % (Auto) 35.1 [place] % (Auto) 8.8 Eos % (Auto) 3.5 Baso % (Auto) 0.4 Absolute Neuts (auto) 3.9 Absolute Lymphs (auto) 2.64 Total Counted Not Reportable Differential Comment SCANNED Sodium 133 L Potassium 3.8 Chloride 91 L Carbon Dioxide 25.0 Anion Gap 17 H BUN 44 H Creatinine 9.56 H* Estim Creat Clear Calc 8.62 Est GFR (MDRD) Af Amer 8 L Est GFR (MDRD) Non-Af 6 L BUN/Creatinine Ratio 4.6 L Glucose 81 Calcium 8.8 Troponin I 1.120 H* EKG NSR LVH. no acute changes. Chest x-ray reviewed and showed no acute process. No infiltrate, nor pulmonary edema. Assessment/Plan All Active Problems (Last Reviewed 10/21/18 @ 07:39 by Jenaro Gant DO) Chest pain (Acute) Problem with dialysis access (Acute) NSTEMI (non-ST elevated myocardial infarction) (Acute) Malnutrition (Acute) Diabetic foot infection (Acute) Hyponatremia (Acute) Acute on chronic anemia (Acute) Cellulitis of right foot (Acute) Amputated great toe of right foot (Resolved) Hammer toe of right foot (Resolved) Malnutrition (Resolved) Right forefoot osteomyelitis (Resolved) 1. Chest pain * atypical * possible anxiety/panic attack after dizziness * Dr. Mcghee spoke with ED and was concerned for pericarditis and recommended NSAIDs and check CRP. * cardiology on consult. * troponins elevated, but trending down. will trend. 2. NSTEMI * medical mgmt with ASA, plavix, statin * s/p PCI with JOE to proximal LAD on 10/19 * currently symptom free * follow up with cardiology as outpt 3. DM1: * continue Lantus * add SSI * had hypoglycemia with AM lab on 10/20. Received some crackers and doing better. Not hypoglycemic at home. 4. ESRD: * on HD QMWF, states that he has been compliant with his HD * Dr. Celeste aware and will plan for HD today. 5. Right diabetic foot infection: * s/p resection of prominent deformed bone on right foot * still has cast on, but full weight-bearing (according to the patient) * follow up with Dr. Miranda 6. VTE proph: moderate risk given cast. SQ heparin. Code Visit OBSV E&M: 73977 Initial observation care L2
[2018-10-21] MEDS: Clopidogrel Bisulfate 75 MG Tablet PO ×2 (08:22→10:38)
[2018-10-21] MEDS: Ibuprofen 200 MG Tablet 400 MG PO (08:22)
[2018-10-21 10:01] LABS: Bedside Glucose 113 mg/dL (70-110)
[2018-10-21] MEDS: SEVELAMER CARBONATE 800 MG TABLET 1600 MG PO ×2 (10:35→17:26)
[2018-10-21] MEDS: Losartan Potassium 50 MG Tablet PO (10:35)
[2018-10-21] MEDS: Aspirin E.C. 81 MG Tablet PO (10:35)
[2018-10-21] MEDS: Heparin Injection (Vial) 5,000 UNIT/ML VIAL 5000 UNIT SC (10:35)
[2018-10-21] MEDS: Metoprolol Tartrate 25 MG Tablet 37.5 MG PO (10:37)
[2018-10-21] MEDS: Minoxidil 2.5 MG Tablet PO (11:40)
--- NOTE | 2018-10-21 11:56 | CON.PCM_ITS ---
Problem List (1) Chest pain Status: Acute Qualifiers: Ischemic chest pain type: unspecified angina pectoris type (2) Atherosclerotic heart disease of [place] coronary artery without angina pectoris Status: Chronic Comment: Successful PTCA/JOE proximal LAD with a 3.5 x 32 Promus Synergy stent 10/19/2018 (3) Stented coronary artery Status: Chronic Comment: Successful PTCA/JOE proximal LAD with a 3.5 x 32 Promus Synergy stent per DJN @ [facility] 10/19/2018 (4) Hyperlipidemia Status: Chronic (5) HTN (hypertension) Status: Chronic (6) ESRD (end stage renal disease) on dialysis Status: Chronic Reason for Consult Date of Consultation: 10/21/18 Reason for Consultation: Chest pain, coronary disease status post stenting, hypertension, hypercholesterolemia, end-stage renal disease, diabetes History of Present Illness: The patient is a 48 year old M, recently discharged 2 days ago after presenting with acute coronary syndrome, chest pain, non-STEMI, and underwent left heart catheterization. This demonstrated what appeared to be a critical lesion in his proximal LAD as well as nonobstructive disease of his mid LAD, left circumflex and RCA. His LV function was normal. He underwent successful angioplasty and stenting of his proximal LAD with an excellent result, and he was subsequently discharged this past Friday. Patient underwent dialysis prior to his discharge, and had no chest pain symptoms. The patient was getting up this morning to go to dialysis when he noted severe substernal chest pain, pleuritic in nature, worse with laying down and improved with sitting forward. He also had a spike in his blood pressure, and was diaphoretic. He came to [facility] ER where an EKG was performed which showed normal sinus rhythm, no acute anterior changes or other EKG changes. His troponin was 1.1 and trending downwards. Patient was given some of the nitroglycerin which did not improve his pain but his pain completely resolved with IV morphine. Upon further history the patient states that he has had pleuritic type chest pain over the last several days, worse with inspiration, worse with laying down and improved with sitting forward. He had no exertional symptoms after discharged. Currently he is resting comfortably, no acute distress. Patient underwent a hs-CRP which was found to be markedly elevated at 46.1. [] Past Medical History Allergies/Adverse Reactions: Allergies calcium [From PhosLo] Allergy (Verified 10/21/18 05:48) Hives Home Medications: Ambulatory Orders Medication Instructions Recorded Hydralazine HCl 100 mg PO TID 07/06/17 Insulin Detemir [Levemir FlexPen] 10 units SC QHS 07/06/17 Insulin Detemir [Levemir FlexPen] 13 units SC DAILY 07/06/17 Latanoprost 0.005% [Xalatan 1 drp EACH EYE QHS 07/06/17 Opthalmic] Metoprolol Tartrate 25 mg PO QHS 07/06/17 Metoprolol Tartrate 37.5 mg PO DAILY 07/06/17 Sevelamer Carbonate [Renvela] 1,600 mg PO TIDCM 07/06/17 Minoxidil [Loniten] 2.5 mg PO DAILY 10/18/18 Acetaminophen [Tylenol Tablet] 650 mg PO Q6H PRN PRN tablet 10/20/18 Aspirin E.C. [Ecotrin] 81 mg PO DAILY@0800 tablet 10/20/18 Atorvastatin Calcium [Lipitor] 40 mg PO QHS #30 tablet 10/20/18 Clopidogrel Bisulfate [Plavix] 75 mg PO DAILY #30 tablet 10/20/18 Losartan Potassium [Cozaar] 50 mg PO DAILY #30 tablet 10/20/18 Past Medical History (Chronic Problems): Chronic Problems (Last Reviewed 10/21/18 @ 07:39 by Jenaro Gant DO) Atherosclerotic heart disease of [place] coronary artery without angina pectoris (Chronic) Successful PTCA/JOE proximal LAD with a 3.5 x 32 Promus Synergy stent 10/19/2018 Stented coronary artery (Chronic 10/19/18) Successful PTCA/JOE proximal LAD with a 3.5 x 32 Promus Synergy stent per DJN @ [facility] 10/19/2018 Chronic kidney disease (Chronic) stage 3 Depression (Chronic) Hyperlipidemia (Chronic) Delayed wound healing (Chronic) Ulcer of right foot with fat layer exposed (Chronic) History of iron deficiency (Chronic) Anemia due to chronic kidney disease (Chronic) HTN (hypertension) (Chronic) Hypomagnesemia (Chronic) Diabetes mellitus type 1 (Chronic) ESRD (end stage renal disease) on dialysis (Chronic) Diabetic neuropathy (Chronic) 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 Miranda Peripheral vascular disease (Chronic) Glaucoma (Chronic) Diabetes mellitus with neuropathy (Chronic) Microcytic anemia (Chronic) persists despite iron supplementation, possible alpha thalasemia Benign essential hypertension (Chronic) Surgical History: - - transmetatarsal amputation right forefoot December 2015, right great toe amputation Feb 2014. LUE fistula - *Family History Maternal Family History: Family History (Last Reviewed 10/21/18 @ 07:39 by Jenaro Gant DO) Sister Heart disease Uncle Colon cancer History Items: Diabetes, No pertinent history Paternal Family History: Family History (Last Reviewed 10/21/18 @ 07:39 by Jenaro Gant DO) Sister Heart disease Uncle Colon cancer History Items: Diabetes, No pertinent history Smoking Status: Never smoker Review of Systems - Review of Systems General: Denies: Fever, Night Sweats, Fatigue Cardiovascular: Reports: Chest Discomfort, Chest Discomfort at Rest. Denies: Shortness of Breath, Orthopnea, PND, Peripheral Edema, Palpitations, Lightheadedness, Dizziness, Near Syncope, Syncope Respiratory: Denies: Cough, Sputum Production, Hemoptysis Gastrointestinal: Denies: Hematemesis, Hematochezia, Melena Genitourinary: Denies: Dysuria, Hematuria Skin: Denies: Rash Subjectve: Patient says resting comfortably, no acute distress. Objective: Vital Signs Temp Pulse Resp BP Pulse Ox 98.1 F 87 18 150/92 H 100 10/21/18 08:56 10/21/18 10:37 10/21/18 08:56 10/21/18 08:56 10/21/18 08:56 Oxygen Flow Rate (L/min) 2 Oxygen Delivery Method Nasal Cannula Weight: 144 lb 6.444 oz Body Mass Index (BMI) 18.0 Finger Stick Blood Glucose 370 10/21/18 05:53: WBC 7.5, RBC 5.38, Hgb 12.5 L, Hct 37.5 L, MCV 69.7 L, MCH 23.2 L, MCHC 33.3, RDW 15.6 H, RDW Differential 38.7, Plt Count 118 L, MPV 10.6, Immature Gran % (Auto) 0.100, Neut % (Auto) 52.1, Lymph % (Auto) 35.1, [place] % (Auto) 8.8, Eos % (Auto) 3.5, Baso % (Auto) 0.4, Absolute Neuts (auto) 3.9, Total Counted Not Reportable 10/21/18 05:53: Sodium 133 L, Potassium 3.8, Chloride 91 L, Carbon Dioxide 25.0, Anion Gap 17 H, BUN 44 H, Creatinine 9.56 H*, Est GFR (MDRD) Af Amer 8 L, Est GFR (MDRD) Non-Af 6 L, BUN/Creatinine Ratio 4.6 L, Glucose 81, Calcium 8.8, Troponin I 1.120 H* 10/21/18 08:56: Troponin I 0.946 H* Rhythm: EKG: ECHO: Stress Test: Cardiac Cath: PCI: CT Surgery: Holter monitor: EPS: PPM: CXR: Chest CT Scan: Assessment/Plan 1. Chest pain: The patient's chest pain on this admission appears to be pleuritic in nature, which is somewhat common with end-stage renal disease patients. The patient has classic signs and symptoms of pleuritic type chest pain, worse with inspiration, worse with laying down flat, and improved with sitting forward. He also has a markedly elevated hs-CRP. He has no acute EKG changes to suggest occlusion of his stent and I would not recommend repeat catheterization at this time. I would recommend he continue his baby aspirin, Plavix, and that we initiate ibuprofen 600 mg p.o. every 8 hours. If the patient's symptoms resolve after 1 days worth of ibuprofen, he may be discharged home. I informed the patient that he may have some chest pain until his ibuprofen has become active. If the patient's pleuritic type chest pain does not improve or initially improved and then returns, he may require either indomethacin, colchicine, or prednisone based therapy. I would avoid prednisone as much as possible given the patient's diabetes. 2. Hyperlipidemia: Continue Lipitor therapy. Repeat lipid profile in 6 weeks time. 3. Hypertension: Patient is going to undergo dialysis today, continue antihypertensive therapy as outlined in the [facility]. 4. Thank you very much for the opportunity to participate in the cardiac care of your patient. Patient may be discharged home either later this evening or tomorrow morning depending upon if he has any recurrent chest pain symptoms. This note was generated using a voice recognition system and there may be incorrect words, spelling or punctuation that were not noted when reviewing the office note prior to saving. Code Visit Inpatient E&M: 99431 Init Hosp L2
[2018-10-21 13:02] LABS: Bedside Glucose 130 mg/dL (70-110)
--- NOTE | 2018-10-21 14:40 | PCM.CONS.R ---
Problem List (1) ESRD (end stage renal disease) on dialysis Status: Chronic Consultation - Renal PCP/ Referring MD: Requesting physician: [] Primary care physician: Peter Coronado MD - History of Present Illness History of Present Illness: The patient is a 48 year old M PMH of ESRD on MWF, CAD s/p recent JOE placement on October 25 for NSTEMI. Pt presented with dizziness, chest pain. Pt was diagnosed with pericarditis and started on NSAIDs Renal team was consulted for ESRD care. HD session was arranged today. Pt was seen today during HD session Pt said his chest pain has gone ROS: 12 systems review is negative - Allergies Allergies: Allergies calcium [From PhosLo] Allergy (Verified 10/21/18 05:48) Hives - Current Medications Current Medications: Current Medications Acetaminophen (Tylenol) 650 mg PO Q6H PRN PRN PRN Reason: Mild pain 1-3/Temp > 100.7 F Aspirin (Ecotrin) 81 mg PO DAILY@0800 [facility] Last Admin: 10/21/18 10:35 Dose: 81 mg Atorvastatin Calcium (Lipitor) 40 mg PO QHS [facility] Clopidogrel Bisulfate (Plavix) 75 mg PO DAILY [facility] Last Admin: 10/21/18 10:38 Dose: 75 mg Dextrose (D50w Syringe) 0 gm IV X1 PRN; Protocol PRN Reason: Hypoglycemia Glucagon () 1 mg IM .X1 PRN PRN Reason: Hypoglycemia Heparin Sodium (Porcine) (Heparin Na) 5,000 unit SC Q12 [facility] Last Admin: 10/21/18 10:35 Dose: 5,000 unit Hydralazine HCl (Apresoline) 100 mg PO TID [facility] Ibuprofen (Motrin) 600 mg PO Q8 [facility] Insulin Glargine (Lantus (Bkc)) 10 units SC HS [facility] Insulin Glargine (Lantus (Bkc)) 13 units SC DAILY [facility] Last Admin: 10/21/18 10:37 Dose: 13 u Insulin Human Lispro (Humalog Kwikpen (Bkc)) 0 unit SQ TIDAC [facility]; Protocol Last Admin: 10/21/18 11:40 Dose: Not Given Latanoprost (Xalatan Opthalmic) 1 drop EACH EYE [facility] Losartan Potassium (Cozaar) 50 mg PO DAILY [facility] Last Admin: 10/21/18 10:35 Dose: 50 mg Metoprolol Tartrate (Lopressor (Beta [place])) 25 mg PO [facility] Metoprolol Tartrate (Lopressor (Beta [place])) 37.5 mg PO DAILY [facility] Last Admin: 10/21/18 10:37 Dose: 37.5 mg Minoxidil (Loniten) 2.5 mg PO DAILY [facility] Last Admin: 10/21/18 11:40 Dose: 2.5 mg Nitroglycerin (Nitrostat) 0.4 mg SUBLINGUAL Q5M PRN PRN Reason: CHEST PAIN Ondansetron HCl (Zofran) 4 mg IV Q8H PRN PRN PRN Reason: NAUSEA/VOMITING Oxycodone HCl (Oxyir) 5 mg PO Q4H PRN PRN PRN Reason: Moderate Pain (4-6/10) Sevelamer Carbonate (Renvela) 1,600 mg PO TIDCM [facility] Last Admin: 10/21/18 14:10 Dose: Not Given - Past Medical History Past Medical History (Chronic Problems): Chronic Problems (Last Reviewed 10/21/18 @ 07:39 by Jenaro Gant DO) Atherosclerotic heart disease of [place] coronary artery without angina pectoris (Chronic) Successful PTCA/JOE proximal LAD with a 3.5 x 32 Promus Synergy stent 10/19/2018 Stented coronary artery (Chronic 10/19/18) Successful PTCA/JOE proximal LAD with a 3.5 x 32 Promus Synergy stent per DJN @ [facility] 10/19/2018 Chronic kidney disease (Chronic) stage 3 Depression (Chronic) Hyperlipidemia (Chronic) Delayed wound healing (Chronic) Ulcer of right foot with fat layer exposed (Chronic) History of iron deficiency (Chronic) Anemia due to chronic kidney disease (Chronic) HTN (hypertension) (Chronic) Hypomagnesemia (Chronic) Diabetes mellitus type 1 (Chronic) ESRD (end stage renal disease) on dialysis (Chronic) Diabetic neuropathy (Chronic) 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 Miranda Peripheral vascular disease (Chronic) Glaucoma (Chronic) Diabetes mellitus with neuropathy (Chronic) Microcytic anemia (Chronic) persists despite iron supplementation, possible alpha thalasemia Benign essential hypertension (Chronic) - Past Surgical History Surgical History: - - transmetatarsal amputation right forefoot December 2015, right great toe amputation Feb 2014. LUE fistula - Social History Smoking Status: Never smoker - Family History Maternal Family History: Family History (Last Reviewed 10/21/18 @ 07:39 by Jenaro Gant DO) Sister Heart disease Uncle Colon cancer History Items: Diabetes, No pertinent history Paternal Family History: Family History (Last Reviewed 10/21/18 @ 07:39 by Jenaro Gant DO) Sister Heart disease Uncle Colon cancer History Items: Diabetes, No pertinent history Patient Problems: Active and Suspected Problems (Last Reviewed 10/21/18 @ 07:39 by Jenaro Gant DO) Chest pain (Acute) - Physical Exam General: Alert, Oriented x3 HEENT: Atraumatic Oral: Moist Mucosa Neck: Supple, No JVD Lungs: Clear to auscultation, Normal air movement, No rhonchi, No wheeze Cardiovascular: Regular rate, Regular Rhythm, Normal S1, Normal S2 Abdomen: Bowel Sounds Present, Soft, Non Tender, Non-Distended Extremities: No clubbing, No cyanosis, No edema Skin: No rashes Musculoskeletal: No Tenderness to Palpation of Joints or Extremities Lymphatic: No Cervical, Supraclavicular, or Inguinal Adenopathy Neurological: Cranial nerves II-XII grossly intact, Neuro grossly intact Psych/Mental Status: Normal Affect Vital Signs Temp Pulse Resp BP Pulse Ox 98.1 F 87 18 150/92 H 100 10/21/18 08:56 10/21/18 10:37 10/21/18 08:56 10/21/18 08:56 10/21/18 08:56 Oxygen Flow Rate (L/min) 2 Oxygen Delivery Method Nasal Cannula Weight: 65.5 kg Body Mass Index (BMI) 18.0 Finger Stick Blood Glucose 370 Intake and Output for Last 24 Hours 10/19/18 10/20/18 10/21/18 23:59 23:59 23:59 Intake Total 240 / 240 Balance 240 / 240 Laboratory Tests Past 24 Hrs 10/21/18 10/21/18 10/21/18 05:53 05:53 05:53 WBC 7.5 RBC 5.38 Hgb 12.5 L Hct 37.5 L MCV 69.7 L MCH 23.2 L MCHC 33.3 RDW 15.6 H RDW Differential 38.7 Plt Count 118 L MPV 10.6 Immature Gran % (Auto) 0.100 Neut % (Auto) 52.1 Lymph % (Auto) 35.1 Saline % (Auto) 8.8 Eos % (Auto) 3.5 Baso % (Auto) 0.4 Absolute Neuts (auto) 3.9 Absolute Lymphs (auto) 2.64 Total Counted Not Reportable Differential Comment SCANNED Sodium 133 L Potassium 3.8 Chloride 91 L Carbon Dioxide 25.0 Anion Gap 17 H BUN 44 H Creatinine 9.56 H* Estim Creat Clear Calc 8.62 Est GFR (MDRD) Af Amer 8 L Est GFR (MDRD) Non-Af 6 L BUN/Creatinine Ratio 4.6 L Glucose 81 Calcium 8.8 Troponin I 1.120 H* C-React Prot High Sens 46.10 H 10/21/18 10/21/18 08:56 12:00 WBC RBC Hgb Hct MCV MCH MCHC RDW RDW Differential Plt Count MPV Immature Gran % (Auto) Neut % (Auto) Lymph % (Auto) Saline % (Auto) Eos % (Auto) Baso % (Auto) Absolute Neuts (auto) Absolute Lymphs (auto) Total Counted Differential Comment Sodium Potassium Chloride Carbon Dioxide Anion Gap BUN Creatinine Estim Creat Clear Calc Est GFR (MDRD) Af Amer Est GFR (MDRD) Non-Af BUN/Creatinine Ratio Glucose Calcium Troponin I 0.946 H* 0.903 H* C-React Prot High Sens POC Glucose 10/21/18 10/21/18 11:39 09:56 POC Glucose 130 H 113 H Assessment/Plan All Active Problems (Last Reviewed 10/21/18 @ 07:39 by Jenaro Gant DO) Chest pain (Acute) Problem with dialysis access (Acute) NSTEMI (non-ST elevated myocardial infarction) (Acute) Malnutrition (Acute) Diabetic foot infection (Acute) Hyponatremia (Acute) Acute on chronic anemia (Acute) Cellulitis of right foot (Acute) Amputated great toe of right foot (Resolved) Hammer toe of right foot (Resolved) Malnutrition (Resolved) Right forefoot osteomyelitis (Resolved) 1-End-Stage Renal Disease . On Friday. HD session today : BQ 400 DQ 600 UF 1L Dialysis access: Left upper extremity AV fistula 2-anemia hemoglobin more than 12.noted for PRATEEK for now. 3-non-ST CT. Status post cardiac cath with stent placement on October 19. Will defer to the cardiology team. 4-hypertension: well controlled. continue same BP meds and UF to EDW 5- Pericarditis. On NSAIDs as per cardiology oli Thank you for the consult. Renal team will continue to follow. Please call if nay question or concern at [phone] Kirk Celeste MD
--- NOTE | 2018-10-21 14:44 | CON.PCM_ITS ---
Problem List (1) ESRD (end stage renal disease) on dialysis Status: Chronic Consultation - Renal PCP/ Referring MD: Requesting physician: [] Primary care physician: Peter Coronado MD - History of Present Illness History of Present Illness: The patient is a 48 year old M PMH of ESRD on MWF, CAD s/p recent JOE placement on October 25 for NSTEMI. Pt presented with dizziness, chest pain. Pt was diagnosed with pericarditis and started on NSAIDs Renal team was consulted for ESRD care. HD session was arranged today. Pt was seen today during HD session Pt said his chest pain has gone ROS: 12 systems review is negative - Allergies Allergies: Allergies calcium [From PhosLo] Allergy (Verified 10/21/18 05:48) Hives - Current Medications Current Medications: Current Medications Acetaminophen (Tylenol) 650 mg PO Q6H PRN PRN PRN Reason: Mild pain 1-3/Temp > 100.7 F Aspirin (Ecotrin) 81 mg PO DAILY@0800 [facility] Last Admin: 10/21/18 10:35 Dose: 81 mg Atorvastatin Calcium (Lipitor) 40 mg PO QHS [facility] Clopidogrel Bisulfate (Plavix) 75 mg PO DAILY [facility] Last Admin: 10/21/18 10:38 Dose: 75 mg Dextrose (D50w Syringe) 0 gm IV X1 PRN; Protocol PRN Reason: Hypoglycemia Glucagon () 1 mg IM .X1 PRN PRN Reason: Hypoglycemia Heparin Sodium (Porcine) (Heparin Na) 5,000 unit SC Q12 [facility] Last Admin: 10/21/18 10:35 Dose: 5,000 unit Hydralazine HCl (Apresoline) 100 mg PO TID [facility] Ibuprofen (Motrin) 600 mg PO Q8 [facility] Insulin Glargine (Lantus (Bkc)) 10 units SC HS [facility] Insulin Glargine (Lantus (Bkc)) 13 units SC DAILY [facility] Last Admin: 10/21/18 10:37 Dose: 13 u Insulin Human Lispro (Humalog Kwikpen (Bkc)) 0 unit SQ TIDAC [facility]; Protocol Last Admin: 10/21/18 11:40 Dose: Not Given Latanoprost (Xalatan Opthalmic) 1 drop EACH EYE [facility] Losartan Potassium (Cozaar) 50 mg PO DAILY [facility] Last Admin: 10/21/18 10:35 Dose: 50 mg Metoprolol Tartrate (Lopressor (Beta [place])) 25 mg PO [facility] Metoprolol Tartrate (Lopressor (Beta [place])) 37.5 mg PO DAILY [facility] Last Admin: 10/21/18 10:37 Dose: 37.5 mg Minoxidil (Loniten) 2.5 mg PO DAILY [facility] Last Admin: 10/21/18 11:40 Dose: 2.5 mg Nitroglycerin (Nitrostat) 0.4 mg SUBLINGUAL Q5M PRN PRN Reason: CHEST PAIN Ondansetron HCl (Zofran) 4 mg IV Q8H PRN PRN PRN Reason: NAUSEA/VOMITING Oxycodone HCl (Oxyir) 5 mg PO Q4H PRN PRN PRN Reason: Moderate Pain (4-6/10) Sevelamer Carbonate (Renvela) 1,600 mg PO TIDCM [facility] Last Admin: 10/21/18 14:10 Dose: Not Given - Past Medical History Past Medical History (Chronic Problems): Chronic Problems (Last Reviewed 10/21/18 @ 07:39 by Jenaro Gant DO) Atherosclerotic heart disease of [place] coronary artery without angina pectoris (Chronic) Successful PTCA/JOE proximal LAD with a 3.5 x 32 Promus Synergy stent 10/19/2018 Stented coronary artery (Chronic 10/19/18) Successful PTCA/JOE proximal LAD with a 3.5 x 32 Promus Synergy stent per DJN @ 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 Miranda Peripheral vascular disease (Chronic) Glaucoma (Chronic) Diabetes mellitus with neuropathy (Chronic) Microcytic anemia (Chronic) persists despite iron supplementation, possible alpha thalasemia Benign essential hypertension (Chronic) - Past Surgical History Surgical History: - - transmetatarsal amputation right forefoot December 2015, right great toe amputation Feb 2014. LUE fistula - Social History Smoking Status: Never smoker - Family History Maternal Family History: Family History (Last Reviewed 10/21/18 @ 07:39 by Jenaro Gant DO) Sister Heart disease Uncle Colon cancer History Items: Diabetes, No pertinent history Paternal Family History: Family History (Last Reviewed 10/21/18 @ 07:39 by Jenaro Gant DO) Sister Heart disease Uncle Colon cancer History Items: Diabetes, No pertinent history Patient Problems: Active and Suspected Problems (Last Reviewed 10/21/18 @ 07:39 by Jenaro Gant DO) Chest pain (Acute) - Physical Exam General: Alert, Oriented x3 HEENT: Atraumatic Oral: Moist Mucosa Neck: Supple, No JVD Lungs: Clear to auscultation, Normal air movement, No rhonchi, No wheeze Cardiovascular: Regular rate, Regular Rhythm, Normal S1, Normal S2 Abdomen: Bowel Sounds Present, Soft, Non Tender, Non-Distended Extremities: No clubbing, No cyanosis, No edema Skin: No rashes Musculoskeletal: No Tenderness to Palpation of Joints or Extremities Lymphatic: No Cervical, Supraclavicular, or Inguinal Adenopathy Neurological: Cranial nerves II-XII grossly intact, Neuro grossly intact Psych/Mental Status: Normal Affect Vital Signs Temp Pulse Resp BP Pulse Ox 98.1 F 87 18 150/92 H 100 10/21/18 08:56 10/21/18 10:37 10/21/18 08:56 10/21/18 08:56 10/21/18 08:56 Oxygen Flow Rate (L/min) 2 Oxygen Delivery Method Nasal Cannula Weight: 65.5 kg Body Mass Index (BMI) 18.0 Finger Stick Blood Glucose 370 Intake and Output for Last 24 Hours 10/19/18 10/20/18 10/21/18 23:59 23:59 23:59 Intake Total 240 / 240 Balance 240 / 240 Laboratory Tests Past 24 Hrs 10/21/18 10/21/18 10/21/18 05:53 05:53 05:53 WBC 7.5 RBC 5.38 Hgb 12.5 L Hct 37.5 L MCV 69.7 L MCH 23.2 L MCHC 33.3 RDW 15.6 H RDW Differential 38.7 Plt Count 118 L MPV 10.6 Immature Gran % (Auto) 0.100 Neut % (Auto) 52.1 Lymph % (Auto) 35.1 [place] % (Auto) 8.8 Eos % (Auto) 3.5 Baso % (Auto) 0.4 Absolute Neuts (auto) 3.9 Absolute Lymphs (auto) 2.64 Total Counted Not Reportable Differential Comment SCANNED Sodium 133 L Potassium 3.8 Chloride 91 L Carbon Dioxide 25.0 Anion Gap 17 H BUN 44 H Creatinine 9.56 H* Estim Creat Clear Calc 8.62 Est GFR (MDRD) Af Amer 8 L Est GFR (MDRD) Non-Af 6 L BUN/Creatinine Ratio 4.6 L Glucose 81 Calcium 8.8 Troponin I 1.120 H* C-React Prot High Sens 46.10 H 10/21/18 10/21/18 08:56 12:00 WBC RBC Hgb Hct MCV MCH MCHC RDW RDW Differential Plt Count MPV Immature Gran % (Auto) Neut % (Auto) Lymph % (Auto) [place] % (Auto) Eos % (Auto) Baso % (Auto) Absolute Neuts (auto) Absolute Lymphs (auto) Total Counted Differential Comment Sodium Potassium Chloride Carbon Dioxide Anion Gap BUN Creatinine Estim Creat Clear Calc Est GFR (MDRD) Af Amer Est GFR (MDRD) Non-Af BUN/Creatinine Ratio Glucose Calcium Troponin I 0.946 H* 0.903 H* C-React Prot High Sens POC Glucose 10/21/18 10/21/18 11:39 09:56 POC Glucose 130 H 113 H Assessment/Plan All Active Problems (Last Reviewed 10/21/18 @ 07:39 by Jenaro Gant DO) Chest pain (Acute) Problem with dialysis access (Acute) NSTEMI (non-ST elevated myocardial infarction) (Acute) Malnutrition (Acute) Diabetic foot infection (Acute) Hyponatremia (Acute) Acute on chronic anemia (Acute) Cellulitis of right foot (Acute) Amputated great toe of right foot (Resolved) Hammer toe of right foot (Resolved) Malnutrition (Resolved) Right forefoot osteomyelitis (Resolved) 1-End-Stage Renal Disease . On Friday. HD session today : BQ 400 DQ 600 UF 1L Dialysis access: Left upper extremity AV fistula 2-anemia hemoglobin more than 12.noted for PRATEEK for now. 3-non-ST NV. Status post cardiac cath with stent placement on October 19. Will defer to the cardiology team. 4-hypertension: well controlled. continue same BP meds and UF to EDW 5- Pericarditis. On NSAIDs as per cardiology oli Thank you for the consult. Renal team will continue to follow. Please call if nay question or concern at [phone] Kirk Celeste MD
--- NOTE | 2018-10-21 16:51 | DCINST_ITS ---
- Discharge Diagnoses Current Active Problems: Current Active and Chronic Problems (Last Reviewed 10/21/18 @ 07:39 by Jenaro Gant DO) Chest pain (Acute) You will use the following diet at home:: Renal (restricted protein/sodium) Your food should be the consistency of: Regular Your liquids should be the consistency of: Regular/Thin Discharge Activity: Return to Normal Activity Call your doctor if you observe: Fever of 101 or Higher, Shortness of breath, Chest pain Allergies/Adverse Reactions: Allergies calcium [From PhosLo] Allergy (Verified 10/21/18 05:48) Hives Medications to take at Discharge Hydralazine HCl 100 mg PO TID 07/06/17 Insulin Detemir [Levemir FlexPen] 10 units SC QHS 07/06/17 Insulin Detemir [Levemir FlexPen] 13 units SC DAILY 07/06/17 Latanoprost 0.005% [Xalatan Opthalmic] 1 drp EACH EYE QHS 07/06/17 Metoprolol Tartrate 25 mg PO QHS 07/06/17 Metoprolol Tartrate 37.5 mg PO DAILY 07/06/17 Sevelamer Carbonate [Renvela] 1,600 mg PO TIDCM 07/06/17 Minoxidil [Loniten] 2.5 mg PO DAILY 10/18/18 Acetaminophen [Tylenol Tablet] 650 mg PO Q6H PRN PRN tablet 10/20/18 Aspirin E.C. [Ecotrin] 81 mg PO DAILY@0800 tablet 10/20/18 Atorvastatin Calcium [Lipitor] 40 mg PO QHS #30 tablet 10/20/18 Clopidogrel Bisulfate [Plavix] 75 mg PO DAILY #30 tablet 10/20/18 Losartan Potassium [Cozaar] 50 mg PO DAILY #30 tablet 10/20/18 Ibuprofen [Motrin] 600 mg PO Q8 PRN tablet 10/21/18 Primary Care Physician: Peter Coronado MD [Primary Care Provider] - Within 2 Weeks Test Results: Test results from this visit will be discussed in further detail at your follow- up appointment, if applicable. Please Follow Up With: Keyshawn Mcghee MD When: 2-4 weeks [facility] When: every Friday, Friday and Friday Proposed Discharge Date: 10/21/18
--- NOTE | 2018-10-21 16:51 | PCM.DC.SUM ---
Discharge Date and Diagnosis - Problem List Patient Problems: Active and Suspected Problems (Last Reviewed 10/21/18 @ 07:39 by Jenaro Gant DO) Chest pain (Acute) Date of Admission: 10/21/18 Date of Discharge: 10/21/18 - Primary Discharge Diagnosis Active and Suspected Problems (Last Reviewed 10/21/18 @ 07:39 by Jenaro Gant DO) Chest pain (Acute) - Secondary Discharge Diagnosis Chronic Problems (Last Reviewed 10/21/18 @ 07:39 by Jenaro Gant DO) Atherosclerotic heart disease of [place] coronary artery without angina pectoris (Chronic) Successful PTCA/JOE proximal LAD with a 3.5 x 32 Promus Synergy stent 10/19/2018 Stented coronary artery (Chronic 10/19/18) Successful PTCA/JOE proximal LAD with a 3.5 x 32 Promus Synergy stent per DJN @ 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 Miranda Peripheral vascular disease (Chronic) Glaucoma (Chronic) Diabetes mellitus with neuropathy (Chronic) Microcytic anemia (Chronic) persists despite iron supplementation, possible alpha thalasemia Benign essential hypertension (Chronic) Hospital Course and Treatment Imaging Results: Clinical Impression(s) from Imaging Studies Chest X-Ray 10/21/18 06:01 IMPRESSION: No evidence for acute cardiopulmonary pathology. Electronically Signed: Teja Alexis MD at 6:25 EDT , Service support , Kirk Celeste MD: nephrology Keyshawn Mcghee MD: cardiology Operations: - - 04/12/16 excisional debridement of the right foot ulcer with right tenoachilles tendon lengthening by Dr. Miranda Procedures: Dialysis Summary of Care Provided: The patient is a 48 year old M presents with chest pain. Patient was getting up getting ready for dialysis, became dizzy lightheaded and then short of breath and with midsternal chest pain. With those symptoms, patient was alarmed and came to the hospital as he just recently had a stent placed. Patient did have elevated troponins but they were actually trending down from when he was here earlier this week. Seen by cardiology and was concern for pleuritic chest pain and was started on ibuprofen. Patient did have an elevated CRP of 46. Patient did receive ibuprofen but his chest pain has since resolved since taking nitroglycerin. When I saw the patient was more concerned for this action being anxiety. Patient did have significant anxiety after his heart catheterization and did seem to accentuate his blood pressure. Patient was comfortable during the course of his hospitalization and has remained stable. Patient was due for dialysis today and nephrology did commence with dialysis on his regular schedule today. Patient will be discharged home in stable condition and instructed to return if he has any new or worsening symptoms. [] Patient Problems: Active and Suspected Problems (Last Reviewed 10/21/18 @ 07:39 by Jenaro Gant DO) Chest pain (Acute) - Physical Exam Vital Signs Temp Pulse Resp BP Pulse Ox 37.0 C 75 18 104/58 L 97 10/21/18 14:50 10/21/18 14:50 10/21/18 14:50 10/21/18 14:50 10/21/18 14:50 Oxygen Flow Rate (L/min) 2 Oxygen Delivery Method Nasal Cannula Weight: 65.5 kg Body Mass Index (BMI) 18.0 Finger Stick Blood Glucose 370 Intake and Output for Last 24 Hours 10/19/18 10/20/18 10/21/18 23:59 23:59 23:59 Intake Total 240 / 240 Balance 240 / 240 Laboratory Tests Past 24 Hrs 10/21/18 10/21/18 10/21/18 05:53 05:53 05:53 WBC 7.5 RBC 5.38 Hgb 12.5 L Hct 37.5 L MCV 69.7 L MCH 23.2 L MCHC 33.3 RDW 15.6 H RDW Differential 38.7 Plt Count 118 L MPV 10.6 Immature Gran % (Auto) 0.100 Neut % (Auto) 52.1 Lymph % (Auto) 35.1 [place] % (Auto) 8.8 Eos % (Auto) 3.5 Baso % (Auto) 0.4 Absolute Neuts (auto) 3.9 Absolute Lymphs (auto) 2.64 Total Counted Not Reportable Differential Comment SCANNED Sodium 133 L Potassium 3.8 Chloride 91 L Carbon Dioxide 25.0 Anion Gap 17 H BUN 44 H Creatinine 9.56 H* Estim Creat Clear Calc 8.62 Est GFR (MDRD) Af Amer 8 L Est GFR (MDRD) Non-Af 6 L BUN/Creatinine Ratio 4.6 L Glucose 81 Calcium 8.8 Troponin I 1.120 H* C-React Prot High Sens 46.10 H 10/21/18 10/21/18 08:56 12:00 WBC RBC Hgb Hct MCV MCH MCHC RDW RDW Differential Plt Count MPV Immature Gran % (Auto) Neut % (Auto) Lymph % (Auto) [place] % (Auto) Eos % (Auto) Baso % (Auto) Absolute Neuts (auto) Absolute Lymphs (auto) Total Counted Differential Comment Sodium Potassium Chloride Carbon Dioxide Anion Gap BUN Creatinine Estim Creat Clear Calc Est GFR (MDRD) Af Amer Est GFR (MDRD) Non-Af BUN/Creatinine Ratio Glucose Calcium Troponin I 0.946 H* 0.903 H* C-React Prot High Sens POC Glucose 10/21/18 10/21/18 11:39 09:56 POC Glucose 130 H 113 H Discharge Diet: Renal Diet Discharge Activity: Return to Normal Activity Call your doctor if you observe: Fever of 101 or Higher, Shortness of breath, Chest pain Home Medications: Medications to take at Discharge Hydralazine HCl 100 mg PO TID 07/06/17 Insulin Detemir [Levemir FlexPen] 10 units SC QHS 07/06/17 Insulin Detemir [Levemir FlexPen] 13 units SC DAILY 07/06/17 Latanoprost 0.005% [Xalatan Opthalmic] 1 drp EACH EYE QHS 07/06/17 Metoprolol Tartrate 25 mg PO QHS 07/06/17 Metoprolol Tartrate 37.5 mg PO DAILY 07/06/17 Sevelamer Carbonate [Renvela] 1,600 mg PO TIDCM 07/06/17 Minoxidil [Loniten] 2.5 mg PO DAILY 10/18/18 Acetaminophen [Tylenol Tablet] 650 mg PO Q6H PRN PRN tablet 10/20/18 Aspirin E.C. [Ecotrin] 81 mg PO DAILY@0800 tablet 10/20/18 Atorvastatin Calcium [Lipitor] 40 mg PO QHS #30 tablet 10/20/18 Clopidogrel Bisulfate [Plavix] 75 mg PO DAILY #30 tablet 10/20/18 Losartan Potassium [Cozaar] 50 mg PO DAILY #30 tablet 10/20/18 Ibuprofen [Motrin] 600 mg PO Q8 PRN tablet 10/21/18 Primary Care Physician: Peter Coronado MD [Primary Care Provider] - Within 2 Weeks Please Follow Up With: Keyshawn Mcghee MD When: 2-4 weeks Please [facility] When: every Friday, Friday and Friday Disposition: Home Minutes spent on discharge:: 32 Patient Condition:: Good Medical Necessity - Tobacco Use Smoking Status: Never smoker Meaningful Use Info Meaningful Use Diagnoses (Choose all that apply): None applicable Code Visit OBSV E&M: 27419 Observ/hosp same date L2
--- NOTE | 2018-10-21 16:55 | DS.PCM_ITS ---
Discharge Date and Diagnosis - Problem List Patient Problems: Active and Suspected Problems (Last Reviewed 10/21/18 @ 07:39 by Jenaro Gant DO) Chest pain (Acute) Date of Admission: 10/21/18 Date of Discharge: 10/21/18 - Primary Discharge Diagnosis Active and Suspected Problems (Last Reviewed 10/21/18 @ 07:39 by Jenaro Gant DO) Chest pain (Acute) - Secondary Discharge Diagnosis Chronic Problems (Last Reviewed 10/21/18 @ 07:39 by Jenaro Gant DO) Atherosclerotic heart disease of [place] coronary artery without angina pectoris (Chronic) Successful PTCA/JOE proximal LAD with a 3.5 x 32 Promus Synergy stent 10/19/2018 Stented coronary artery (Chronic 10/19/18) Successful PTCA/JOE proximal LAD with a 3.5 x 32 Promus Synergy stent per DJN @ [facility] 10/19/2018 Chronic kidney disease (Chronic) stage 3 Depression (Chronic) Hyperlipidemia (Chronic) Delayed wound healing (Chronic) Ulcer of right foot with fat layer exposed (Chronic) History of iron deficiency (Chronic) Anemia due to chronic kidney disease (Chronic) HTN (hypertension) (Chronic) Hypomagnesemia (Chronic) Diabetes mellitus type 1 (Chronic) ESRD (end stage renal disease) on dialysis (Chronic) Diabetic neuropathy (Chronic) 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 Miranda Peripheral vascular disease (Chronic) Glaucoma (Chronic) Diabetes mellitus with neuropathy (Chronic) Microcytic anemia (Chronic) persists despite iron supplementation, possible alpha thalasemia Benign essential hypertension (Chronic) Hospital Course and Treatment Imaging Results: Clinical Impression(s) from Imaging Studies Chest X-Ray 10/21/18 06:01 IMPRESSION: No evidence for acute cardiopulmonary pathology. Electronically Signed: Teja Alexis MD at 6:25 EDT , Service support , Kirk Celeste MD: nephrology Keyshawn Mcghee MD: cardiology Operations: - - 04/12/16 excisional debridement of the right foot ulcer with right tenoachilles tendon lengthening by Dr. Miranda Procedures: Dialysis Summary of Care Provided: The patient is a 48 year old M presents with chest pain. Patient was getting up getting ready for dialysis, became dizzy lightheaded and then short of breath and with midsternal chest pain. With those symptoms, patient was alarmed and came to the hospital as he just recently had a stent placed. Patient did have elevated troponins but they were actually trending down from when he was here earlier this week. Seen by cardiology and was concern for pleuritic chest pain and was started on ibuprofen. Patient did have an elevated CRP of 46. Patient did receive ibuprofen but his chest pain has since resolved since taking nitroglycerin. When I saw the patient was more concerned for this action being anxiety. Patient did have significant anxiety after his heart catheterization and did seem to accentuate his blood pressure. Patient was comfortable during the course of his hospitalization and has remained stable. Patient was due for dialysis today and nephrology did commence with dialysis on his regular schedule today. Patient will be discharged home in stable condition and instructed to return if he has any new or worsening symptoms. [] Patient Problems: Active and Suspected Problems (Last Reviewed 10/21/18 @ 07:39 by Jenaro Gant DO) Chest pain (Acute) - Physical Exam Vital Signs Temp Pulse Resp BP Pulse Ox 37.0 C 75 18 104/58 L 97 10/21/18 14:50 10/21/18 14:50 10/21/18 14:50 10/21/18 14:50 10/21/18 14:50 Oxygen Flow Rate (L/min) 2 Oxygen Delivery Method Nasal Cannula Weight: 65.5 kg Body Mass Index (BMI) 18.0 Finger Stick Blood Glucose 370 Intake and Output for Last 24 Hours 10/19/18 10/20/18 10/21/18 23:59 23:59 23:59 Intake Total 240 / 240 Balance 240 / 240 Laboratory Tests Past 24 Hrs 10/21/18 10/21/18 10/21/18 05:53 05:53 05:53 WBC 7.5 RBC 5.38 Hgb 12.5 L Hct 37.5 L MCV 69.7 L MCH 23.2 L MCHC 33.3 RDW 15.6 H RDW Differential 38.7 Plt Count 118 L MPV 10.6 Immature Gran % (Auto) 0.100 Neut % (Auto) 52.1 Lymph % (Auto) 35.1 [place] % (Auto) 8.8 Eos % (Auto) 3.5 Baso % (Auto) 0.4 Absolute Neuts (auto) 3.9 Absolute Lymphs (auto) 2.64 Total Counted Not Reportable Differential Comment SCANNED Sodium 133 L Potassium 3.8 Chloride 91 L Carbon Dioxide 25.0 Anion Gap 17 H BUN 44 H Creatinine 9.56 H* Estim Creat Clear Calc 8.62 Est GFR (MDRD) Af Amer 8 L Est GFR (MDRD) Non-Af 6 L BUN/Creatinine Ratio 4.6 L Glucose 81 Calcium 8.8 Troponin I 1.120 H* C-React Prot High Sens 46.10 H 10/21/18 10/21/18 08:56 12:00 WBC RBC Hgb Hct MCV MCH MCHC RDW RDW Differential Plt Count MPV Immature Gran % (Auto) Neut % (Auto) Lymph % (Auto) [place] % (Auto) Eos % (Auto) Baso % (Auto) Absolute Neuts (auto) Absolute Lymphs (auto) Total Counted Differential Comment Sodium Potassium Chloride Carbon Dioxide Anion Gap BUN Creatinine Estim Creat Clear Calc Est GFR (MDRD) Af Amer Est GFR (MDRD) Non-Af BUN/Creatinine Ratio Glucose Calcium Troponin I 0.946 H* 0.903 H* C-React Prot High Sens POC Glucose 10/21/18 10/21/18 11:39 09:56 POC Glucose 130 H 113 H Discharge Diet: Renal Diet Discharge Activity: Return to Normal Activity Call your doctor if you observe: Fever of 101 or Higher, Shortness of breath, Chest pain Home Medications: Medications to take at Discharge Hydralazine HCl 100 mg PO TID 07/06/17 Insulin Detemir [Levemir FlexPen] 10 units SC QHS 07/06/17 Insulin Detemir [Levemir FlexPen] 13 units SC DAILY 07/06/17 Latanoprost 0.005% [Xalatan Opthalmic] 1 drp EACH EYE QHS 07/06/17 Metoprolol Tartrate 25 mg PO QHS 07/06/17 Metoprolol Tartrate 37.5 mg PO DAILY 07/06/17 Sevelamer Carbonate [Renvela] 1,600 mg PO TIDCM 07/06/17 Minoxidil [Loniten] 2.5 mg PO DAILY 10/18/18 Acetaminophen [Tylenol Tablet] 650 mg PO Q6H PRN PRN tablet 10/20/18 Aspirin E.C. [Ecotrin] 81 mg PO DAILY@0800 tablet 10/20/18 Atorvastatin Calcium [Lipitor] 40 mg PO QHS #30 tablet 10/20/18 Clopidogrel Bisulfate [Plavix] 75 mg PO DAILY #30 tablet 10/20/18 Losartan Potassium [Cozaar] 50 mg PO DAILY #30 tablet 10/20/18 Ibuprofen [Motrin] 600 mg PO Q8 PRN tablet 10/21/18 Primary Care Physician: Peter Coronado MD [Primary Care Provider] - Within 2 Weeks Please Follow Up With: Keyshawn Mcghee MD When: 2-4 weeks Please [facility]: [facility] When: every Friday, Friday and Friday Disposition: Home Minutes spent on discharge:: 32 Patient Condition:: Good Medical Necessity - Tobacco Use Smoking Status: Never smoker Meaningful Use Info Meaningful Use Diagnoses (Choose all that apply): None applicable Code Visit OBSV E&M: 92692 Observ/hosp same date L2
[2018-10-21] MEDS: Ibuprofen 600 MG Tablet PO (17:25)
[2018-10-21] MEDS: hydrALAZINE 50 MG Tablet 100 MG PO (17:25)
--- NOTE | 2018-10-21 17:31 | DIALYSIS ---
HD X 4 HRS ON A 3K BATH [id number] TOLERATED WELL NO MEDS GIVEN. STASIS AT AF. DSG AT SITES. VITALS STABLE POST TREATMENT. REPORT TO EMORY SARABIA
[2018-10-21 17:41] LABS: Bedside Glucose 66 mg/dL (70-110)
== END 2018-10-21 16:50 | disposition home or self-care (01) ==
LOC: ED 06:23 → PCU 07:44
PROVIDERS: Emergency Provider Emergency Medicine; Family Provider Family Medicine; PCP Family Medicine
DX: R07.89 Other chest pain (principal); R06.02 Shortness of breath; R42 Dizziness and giddiness; R11.0 Nausea; I21.4 Non-ST elevation (NSTEMI) myocardial infarction; I25.10 Atherosclerotic heart disease of native coronary artery without angina pectoris; I12.0 Hypertensive chronic kidney disease with stage 5 chronic kidney disease or end stage renal disease; N18.6 End stage renal disease; E10.22 Type 1 diabetes mellitus with diabetic chronic kidney disease; D63.1 Anemia in chronic kidney disease; E10.40 Type 1 diabetes mellitus with diabetic neuropathy, unspecified; E10.51 Type 1 diabetes mellitus with diabetic peripheral angiopathy without gangrene; E78.5 Hyperlipidemia, unspecified; E10.621 Type 1 diabetes mellitus with foot ulcer; L97.512 Non-pressure chronic ulcer of other part of right foot with fat layer exposed; I31.9 Disease of pericardium, unspecified; Z79.4 Long term (current) use of insulin; Z79.82 Long term (current) use of aspirin; Z79.899 Other long term (current) drug therapy; Z99.2 Dependence on renal dialysis; Z95.5 Presence of coronary angioplasty implant and graft; Z79.02 Long term (current) use of antithrombotics/antiplatelets
CPT/HCPCS: 36415; 71045; 80048; 82962; 84484; 85025; 86141; 90937; 93005; 96372; 96374; 99218; 99285; A4216; G0257; G0378

== ENCOUNTER 2018-10-23 05:51 | Emergency (ER) | payer MEDICARE, MEDICAID, SELFPAY ==
[2018-10-23 05:51] VITALS: BMI 18.1
[2018-10-23 05:52] VITALS: BP 156/104; PULSE 79; RESP 12; O2SAT 100
[2018-10-23 05:53] VITALS: BP 161/112; PULSE 73; RESP 16; TEMP 36.8; O2SAT 100; BMI 18.1
--- NOTE | 2018-10-23 06:04 | RAD_ITS ---
Clinical statement: Cough EXAM:XR Chest 2 Views COMPARISON: 12/12/2015 FINDINGS: EKG leads in place. Normal heart size. Stable prominence of the central pulmonary arteries. No vascular congestion, pleural effusion, or acute pulmonary infiltration. No pneumothorax. The bony thorax appears intact. RAD/Chest PA and Lateral IMPRESSION: No acute cardiopulmonary disease. No significant interval change. at 0700 Reported and signed by: Gentry Mai MD Electronically Signed: Gentry Mai, at 6:59 EDT Tel , Service support ,
--- NOTE | 2018-10-23 06:04 | EKG12_ITS ---
Test Reason : DIZZINESS Blood Pressure : / mmHG Vent. Rate : 073 BPM Atrial Rate : 073 BPM P-R Int : 168 ms QRS Dur : 090 ms QT Int : 452 ms P-R-T Axes : 074 -11 065 degrees QTc Int : 497 ms Normal sinus rhythm Minimal voltage criteria for LVH, may be normal variant Septal infarct , age undetermined Abnormal ECG Confirmed by KAILA MENDEZ, PRAVEENA ([id number]), writer editor ROMERO AGUIAR ([id number]) on 10/26/2018 4:07:06 PM Referred By: NAVEED Confirmed By:PRAVEENA BRIGHT MD
[2018-10-23 06:05] VITALS: BP 148/101; BP 191/106; PULSE 80; PULSE 83
--- NOTE | 2018-10-23 06:05 | ED.VISSUMM ---
- ER Visit Summary Date of Service: 10/23/18 Chief Complaint: Lightheadedness History of Present Illness: The patient is a 48 M who presents with lightheadedness. He was getting up to get ready for dialysis this morning and just began to feel lightheaded. He denies any chest pain or shortness of breath. No fevers or vomiting. He has had a productive cough. He was recently hospitalized and underwent cardiac catheterization and had a stent. I saw him in the emergency department following this for recurrent chest pain. After evaluation and discussion with cardiology they felt was most likely due to pericarditis and he was advised to take anti-inflammatories. These symptoms have actually been improving. Physical Examination: Afebrile blood pressure 161/112 No apparent distress Heart regular rate and rhythm Lungs are clear without rales rhonchi wheezes Abdomen soft Alert Test Results: EKG shows sinus rhythm at a rate of 73. Labs notable for white count 3.9, hemoglobin 10.9, hematocrit 33.6. BUN of 39 with creatinine 8.79. Troponin of 0.577. Chest x-ray shows no acute disease. Emergency Department Course and Treatment: Work-up as above unremarkable. He denies any chest pain or shortness of breath. His troponin is trending down from recent labs. At this point I do not see an indication for rehospitalization. He is due for dialysis this morning. He will be discharged from the emergency department to dialysis. Treatment Plan: [] Disposition: Discharge Impression: Lightheadedness This note was generated with [employer] dictation software. It may contain incorrect words, spelling, and punctuation that were not noted in review of the chart prior to signing ED Disposition - Plan for ED Patient: Referrals: Peter Coronado MD [Primary Care Provider] -
[2018-10-23 06:25] LABS: Absolute Lymphocyte Count 1.42 X10^3/ul (0.83-4.51); Absolute Neutrophil Count 1.5 X10^3/uL (2.0-7.7); Basophil# 0.04 X10^3/uL; Eosinophil# 0.33 X10^3/uL; Eosinophils% 8.5 % (0-5); Hematocrit 33.6 % (40-54); Hemoglobin 10.9 g/dl (13.0-16.5); Lymphocyte # 1.42 X10^3/ul (4.0); Lymphocyte % 36.6 % (19-41); Mean Corp Hgb Conc 32.4 g/gl (32-36); Mean Corpuscular Hgb 22.8 pg (27.0-32.0); Mean Corpuscular Volume 70.1 fL (80-94); Mean Platelet Vol. 9.9 fl (6.2-12.0); Monocyte# 0.57 X10^3/uL; Monocyte% 14.7 % (0-10); Neutrophil # 1.51 X10^3/uL (2.7-7.7); Neutrophil % 38.9 % (47-70); Platelet Count 133 K/mm3 (150-450); RBC Distribution Width CV 15.7 % (11.6-14.6); RBC Distribution Width SD 38.1 fl (35.1-43.9); Red Blood Count 4.79 M/mm3 (4.6-6.2); White Blood Count 3.9 K/mm3 (4.4-11.0)
[2018-10-23 06:31] LABS: POSITIVE COUNT NO; POSITIVE DIFFERENTIAL NO; POSITIVE MORPHOLOGY NO
[2018-10-23 06:35] LABS: Anion Gap 12 (5-15); BUN 34 mg/dL (7-18); BUN/Creat Ratio 3.9 RATIO (10-20); Chloride 97 mmol/L (98-107); Creatinine, Serum 8.79 mg/dL (0.70-1.30); EST Glomerular Filtration Rate 7 mL/min (>60); Est Glom Filt Rate - Afr Amer 8 mL/min (>60); Estimated Creatinine Clearance 9.33 ml/min; Glucose 87 mg/dL (74-106); Potassium 3.7 mmol/L (3.5-5.1); Sodium Level 138 mmol/L (136-145)
--- NOTE | 2018-10-23 06:39 | ED.RN ---
lab called with critical lab results. creatine level 8.79. Dr. Gonzalez made aware no new orders at this time
--- NOTE | 2018-10-23 07:07 | ED.RN ---
THIS RN CALLED DIALYSIS. PT TO BE TRANSFERRED THERE AND HAVE HIS DIALYSIS DONE
[2018-10-23 07:09] VITALS: BP 150/93; PULSE 71; RESP 18; O2SAT 98
--- NOTE | 2018-10-23 07:09 | ED.DEP ---
ED Disposition - Plan for ED Patient: Instructions: ED Dizziness [facility] Referrals: Peter Coronado MD [Primary Care Provider] -
[2018-10-23 07:38] VITALS: BP 161/95; PULSE 78; RESP 18; O2SAT 99
== END 2018-10-23 07:43 | disposition home or self-care (01) ==
PROVIDERS: Emergency Provider Emergency Medicine; Family Provider Family Medicine; PCP Family Medicine
DX: R42 Dizziness and giddiness (principal); I25.10 Atherosclerotic heart disease of native coronary artery without angina pectoris; I12.0 Hypertensive chronic kidney disease with stage 5 chronic kidney disease or end stage renal disease; E10.22 Type 1 diabetes mellitus with diabetic chronic kidney disease; N18.6 End stage renal disease; Z99.2 Dependence on renal dialysis; I25.2 Old myocardial infarction; E78.00 Pure hypercholesterolemia, unspecified; Z79.4 Long term (current) use of insulin; Z79.82 Long term (current) use of aspirin; Z79.02 Long term (current) use of antithrombotics/antiplatelets; Z79.899 Other long term (current) drug therapy
CPT/HCPCS: 71046; 80048; 84484; 85025; 93005; 99285; A4216

== ENCOUNTER 2018-12-22 08:53 | Day surgery (SDC) | payer MEDICARE, MEDICAID, SELFPAY ==
[2018-12-12 10:19] VITALS: BMI 18.1
--- NOTE | 2018-12-12 10:19 | HP_ITS ---
Intake Vital Signs 12/12/18 Height 6 ft 2 in 12/12/18 Weight: 160 lb 7 oz 12/12/18 Body Mass Index (BMI) 20.5 12/12/18 Blood Pressure 134/85 H 12/12/18 Blood Pressure Location Rt brachial 12/12/18 Respiratory Rate 18 12/12/18 Pulse Rate 76 12/12/18 Pulse Ox 100 11/23/18 Body Mass Index (BMI) 18.1 Intake Visit Reasons: Fistulogram Consult/RSD AG 12/08 Chief Complaint: decreased flows/ spasms Refrigeration Houseman Required: No Is patient in pain?: No Allergies calcium [From PhosLo] Allergy (Verified 12/12/18 10:18) Hives Medications Hydralazine HCl 100 mg PO TID 07/06/17 [History Confirmed 12/12/18] Insulin Detemir [Levemir FlexPen] 10 units SC QHS 07/06/17 [History Confirmed 12/12/18] Insulin Detemir [Levemir FlexPen] 13 units SC DAILY 07/06/17 [History Confirmed 12/12/18] Latanoprost 0.005% [Xalatan Opthalmic] 1 drp EACH EYE QHS 07/06/17 [History Confirmed 12/12/18] Metoprolol Tartrate 25 mg PO QHS 07/06/17 [History Confirmed 12/12/18] Metoprolol Tartrate 37.5 mg PO DAILY 07/06/17 [History Confirmed 12/12/18] Sevelamer Carbonate [Renvela] 1,600 mg PO TIDCM 07/06/17 [History Confirmed 12/12/18] Minoxidil [Loniten] 2.5 mg PO DAILY 10/18/18 [History Confirmed 12/12/18] Acetaminophen [Tylenol Tablet] 650 mg PO Q6H PRN PRN tab 10/20/18 [Rx Confirmed 12/12/18] Aspirin E.C. [Ecotrin] 81 mg PO DAILY@0800 tab 10/20/18 [Rx Confirmed 12/12/18] Atorvastatin Calcium [Lipitor] 40 mg PO QHS #30 tab 10/20/18 [Rx Confirmed 12/12/18] Losartan Potassium [Cozaar] 50 mg PO DAILY #30 tab 10/20/18 [Rx Confirmed 12/12/18] Ibuprofen [Motrin] 600 mg PO Q8 PRN tab 10/21/18 [Rx Confirmed 12/12/18] [facility] Medical History Atherosclerotic heart disease of [place] coronary artery without angina pectoris (Chronic) NSTEMI (non-ST elevated myocardial infarction) (Acute) Chronic kidney disease (Chronic) Depression (Chronic) Hyperlipidemia (Chronic) Malnutrition (Acute) Delayed wound healing (Chronic) Ulcer of right foot with fat layer exposed (Chronic) History of iron deficiency (Chronic) Anemia due to chronic kidney disease (Chronic) HTN (hypertension) (Chronic) Hypomagnesemia (Chronic) Diabetic foot infection (Acute) Diabetes mellitus type 1 (Chronic) ESRD (end stage renal disease) on dialysis (Chronic) Diabetic neuropathy (Chronic) Hyponatremia (Acute) 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) Acute on chronic anemia (Acute) Cellulitis of right foot (Acute) Peripheral vascular disease (Chronic) Glaucoma (Chronic) Diabetes mellitus with neuropathy (Chronic) Microcytic anemia (Chronic) Benign essential hypertension (Chronic) Surgical History Stented coronary artery (Chronic 10/19/18) Status post transmetatarsal amputation of right foot (Chronic) Presence of surgically created primary arteriovenous shunt for hemodialysis (Acute) Status post peripheral artery angioplasty (Acute) Family History Sister Heart disease Uncle Colon cancer Social History Smoking Status: Never smoker alcohol intake: never HPI HPI HPI: THOM PASCUAL, is a 48 M who presents to the office today for surgical consultation regarding diminished flows in his left upper extremity arteriovenous hemodialysis fistula. He is referred for consideration of fistulogram. He has no current discomfort. HPI HPI HPI: THOM PASCUAL, is a 48 M who presents to the office today for ROS General General: Yes weight change; no appetite, fatigue, colon cancer, breast cancer or weakness HEENT HEENT: No difficulty swallowing, eye injury, eye surgery, swollen glands or hoarseness Endo Endocrine: Yes diabetes mellitus; no thyroid disease, thyroid cancer, Hair loss, heat intolerance or cold intolerance Cardio Cardiovascular: Yes high blood pressure, heart attack and heart stent; no murmur, pacemaker, heart disease, atrial fibrillation, palpitations, shortness of breat with exertion or chest pain Psych Psychiatric: Yes depression; no anxiety or hearing voices Resp Respiratory: No shortness of breath, No sleep apnea, No cough, No COPD, No asthma, No emphysema, No wheezing Gastro Gastrointestinal: No abdominal pain, No nausea or vomiting, No diarrhea, No constipation, No blood in stool, No acid reflux, No hemorrhoids, No ulcers, No gallbladder problem, No black,tarry stools Presley Hematologic: No blood thinners, No blood disorders, No bleeding, No anemia, No blood clots Neuro Neurologic: No weakness Exam Cardio Heart Sounds: no murmurs Assessment & Plan Problems 1. Problem with dialysis access, initial encounter T82.350X Plan - Anibal Andrews MD I am recommending the patient a left upper extremity fistulogram with endovascular intervention. I did some difficulty previously with retrograde access getting access to the radial artery. As noted his final treatment with 6 x 80 mm drug-coated balloon. I recommend ultrasound access closer to the antecubital space retrograde with flow. 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 Outflow is via the median cubital vein and upper arm basilic vein. He is aware of the technique, benefit, risks, alternatives. We will schedule proceed as noted. I appreciate the ongoing opportunity of assisting with his surgical care. He will be continued on his clopidogrel as well as his other medications. Primary care physician is Dr. Peter Andrews M.D., F.A.C.S. Coding Level of Care Code Off vis,est,level 3 Diagnoses Problem with dialysis access, initial encounter T82.832U ??Encounter type: initial encounter 12/12/18 1019 <Electronically signed by Anibal morales MD> Date _ Anibal Andrews MD I have re-examined the patient. There are no clinical changes since date of exam.
[2018-12-18 15:14] LABS: Anion Gap 3 (5-15); BUN 28 mg/dL (7-18); BUN/Creat Ratio 6.1 RATIO (10-20); Chloride 100 mmol/L (98-107); Creatinine, Serum 4.61 mg/dL (0.70-1.30); EST Glomerular Filtration Rate 14 mL/min (>60); Est Glom Filt Rate - Afr Amer 17 mL/min (>60); Glucose 89 mg/dL (74-106); Hematocrit 33.9 % (40-54); Hemoglobin 10.8 g/dl (13.0-16.5); Mean Corp Hgb Conc 31.9 g/gl (32-36); Mean Corpuscular Hgb 23.1 pg (27.0-32.0); Mean Corpuscular Volume 72.6 fL (80-94); Mean Platelet Vol. 10.3 fl (6.2-12.0); Platelet Count 136 K/mm3 (150-450); Potassium 3.8 mmol/L (3.5-5.1); RBC Distribution Width CV 16.8 % (11.6-14.6); Red Blood Count 4.67 M/mm3 (4.6-6.2); Sodium Level 140 mmol/L (136-145); White Blood Count 2.9 K/mm3 (4.4-11.0)
[2018-12-18 15:40] LABS: Scan Indicated on CBC? Y/N NO
[2018-12-22 09:13] VITALS: BMI 17.6
--- NOTE | 2018-12-22 11:46 | OP.PCM_ITS ---
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 48-year-old gentleman was taken to [facility] placed on the table. He received 50 mcg of fentanyl 1 mg of Versed is intravenous sedation. The left upper extremity sterilely prepped and draped. Ultrasound was utilized closer to the antecubital space retrograde with flow. 2% lidocaine was instilled as a local anesthetic. A total of 3 cc was used. Micropuncture needle was inserted by puncture wire inserted 6 Green[place]ic short sheath was inserted retrograde with flow. [id number] glide wire was used to advance a 4 [place]ic glide cath into the radial artery proximal to the anastomosis. Using Isovue contrast a fistulogram was obtained. This demonstrated that there is at least 60% arterial stenosis at the anastomosis there was an additional very proximal fistula venous 50% stenosis and then approximately 6 cm distal to anastomosis there is a titer 80% area of stenosis followed by an area of aneurysmal change. Completion fistula gram was obtained demonstrating occlusion of the left upper arm cephalic vein with excellent left upper arm basilic vein outflow and excellent central venous outflow. I was able to get an 035 angled Glidewire past the area of concern and into the left radial artery. I placed a 6 x 20 mm conquest balloon and angioplasty was performed in 3 separate locations.. The balloon was then removed over the wire and a 4 Greenlandic glide cath was reinserted. Final FISH gram now demonstrated dramatic improvement with resolution of the stenosis at the anastomosis and resolution of the 2 areas of stenosis within the proximal venous portion of the fistula. Sheath removed U suture of 4-0 nylon was placed was a good pulse run bruit at the completion blood loss minimal no apparent complication The patient has a left forearm radiocephalic AV fistula with arterial anastomotic and proximal venous stenosis remedied with [employer] angioplasty. There is occlusion of the left upper arm cephalic vein there is excellent left upper arm basilic vein and central venous outflow. Anibal Andrews M.D., F.A.C.S. Type of Anesthesia:: IV Sedation
== END 2018-12-22 12:45 | disposition home or self-care (01) ==
LOC: CLSP 08:55
PROVIDERS: Family Provider Family Medicine; PCP Family Medicine; Referring Provider Surgery; Visit Provider Surgery
DX: T82.898A Other specified complication of vascular prosthetic devices, implants and grafts, initial encounter (principal); I12.0 Hypertensive chronic kidney disease with stage 5 chronic kidney disease or end stage renal disease; E10.22 Type 1 diabetes mellitus with diabetic chronic kidney disease; N18.6 End stage renal disease; Z99.2 Dependence on renal dialysis; I25.10 Atherosclerotic heart disease of native coronary artery without angina pectoris; I25.2 Old myocardial infarction; F32.9 Major depressive disorder, single episode, unspecified; E78.5 Hyperlipidemia, unspecified; D63.1 Anemia in chronic kidney disease; E10.40 Type 1 diabetes mellitus with diabetic neuropathy, unspecified; I73.9 Peripheral vascular disease, unspecified; Z79.4 Long term (current) use of insulin; Z79.82 Long term (current) use of aspirin; Z79.899 Other long term (current) drug therapy
CPT/HCPCS: 36415; 36902; 76937; 80048; 85027; 99152; 99153; Q9967; A4216; C1725; C1769

== ENCOUNTER → 2019-03-02 | Outpatient (CLI) | payer MEDICARE, MEDICAID, SELFPAY ==
[2019-02-27 08:53] VITALS: BMI 17.6
--- NOTE | 2019-03-02 11:11 | US_ITS ---
Exam: Ultrasound limited to the right neck. HISTORY: Mass behind the right ear. COMPARISON: None. FINDINGS: Ultrasound demonstrates a heterogeneous vascular mass with lobulated contours measuring approximately 2.8 x 3.0 x 3.2 cm. This is a very suspicious mass, and image guided biopsy is recommended. US/Head/Neck Soft Tissue IMPRESSION: Confirmation with 3.2 cm possibly neoplastic mass. Biopsy recommended. Electronically Signed: Marcell Sorenson MD at 17:13 EDT , Service support ,
== END | disposition home or self-care (01) ==
LOC: US 11:11
PROVIDERS: Family Provider Family Medicine; PCP Family Medicine; Referring Provider Surgery; Visit Provider Surgery
DX: R22.1 Localized swelling, mass and lump, neck (principal)
CPT/HCPCS: 76536

== ENCOUNTER → 2019-03-18 | Outpatient (CLI) | payer MEDICARE, MEDICAID, SELFPAY ==
[2019-02-27 08:53] VITALS: BMI 17.6
--- NOTE | 2019-03-18 10:15 | FLU_PTH ---
PATIENT: THOM PASCUAL LOC: [facility] U#:[id number] AGE/SX: 48/M ROOM: RE03/18/[address]: Dr. Jenaro Jones MD : 1970 BED: DIS: 03/18/2019 SPEC #: [id number] RECD: 03/18/19 12:26 STATUS: BIANKA CHRIS #: [id number] STACIE: 03/18/19 10:[address]: Jenaro Jones DEPT: CYTOLOGY RECD BY: Zhen Simpson ENTERED: 03/18/19 13:10 SP TYPE: Fluid OTHR DR: Dr. Peter Coronado MD Tissues: Parotid gland, NOS Procedures: Special Stain Group II Surgery Specimen Level IV Cytospin Fluid HEADER OPERATION: FNA, right parotid mass PRE-OP DIAGNOSIS: Right parotid mass TISSUE SUBMITTED: FNA, right parotid mass DIAGNOSIS CYTOLOGY Fine needle aspiration, right parotid mass (cytospin and cell block): Consistent with pleomorphic adenoma. AM:doris 03/19/19 COMMENT Case has been reviewed in consultation with Dr. Lawrence who concurs with the above diagnosis. IDC:SJ CYTOLOGY STUDY Slides are reviewed. CYTOLOGY GROSS Received is 40 ml of red cloudy fluid labeled with the patient's name and and designated per the requisition as right parotid mass. Submitted for cytology preparation including cell block. / doris 03/18/19 TC:5 CPT: 13981, 79330
== END | disposition home or self-care (01) ==
LOC: LABSPEC 13:02
PROVIDERS: Family Provider Family Medicine; PCP Family Medicine; Referring Provider Otolaryngology; Visit Provider Otolaryngology
DX: I89.8 Other specified noninfective disorders of lymphatic vessels and lymph nodes (principal)
CPT/HCPCS: 88108; 88305; 88313

== ENCOUNTER 2019-04-09 17:15 | Observation (INO) | payer MEDICARE, MEDICAID, SELFPAY ==
[2019-02-27 08:53] VITALS: BMI 17.6
--- NOTE | 2019-04-07 16:00 | NURSING ---
[facility]GET[facility]- CHARGE NURSE ON 3RD FLOOR NOTIFIED PT HAS ORDER FOR POST-OP DIALYSIS. ORDER FAXED TO FLOOR
--- NOTE | 2019-04-08 10:42 | NURSING ---
GEOVANI IN OFFICE CONTACTED REGARDING DIALYSIS AFTER PROCEDURE. DR. ONEIL IN CONTACT WITH DR. OTOOLE PRE SURGERY. WILL WRITE CONSULT AFTER SURGERY FOR DIALYSIS ORDER.
[2019-04-09] VITALS (12 sets, daily range): BP systolic 156–221; BP diastolic 73–113; PULSE 66–78; RESP 16–18; TEMP 36.2–36.9; O2SAT 97–100; BMI 19.2
--- NOTE | 2019-04-09 | PAR_PTH ---
PATIENT: THOM PASCUAL LOC: [facility] U#:[id number] AGE/SX: 48/M ROOM: MO316 RE04/09/[address]: Dr. Jenaro Jones MD : 1970 BED: 1 DIS: 04/10/2019 SPEC #: [id number] RECD: 04/09/19 16:22 STATUS: BIANKA CHRIS #: [id number] STACIE: 04/09/19 00:[address]: Jenaro Jones DEPT: SURGICAL PATHOLOGY RECD BY: Nisreen Dwyer ENTERED: 04/12/19 07:37 SP TYPE: PAROTID OTHR DR: MD Dr. Peter Mccarty MD Tissues: A - Parotid gland, NOS B - Parotid gland, NOS Procedures: Frozen Section (charge) Surgery Specimen Level V HEADER OPERATION: Parotidectomy, nerve monitoring PRE-OP DIAGNOSIS: Benign neoplasm of right parotid gland TISSUE SUBMITTED: A - Right parotid gland deep lobe mass sent for FS at 1615, B - Portion of right parotid gland sent for permanent FROZEN SECTION DIAGNOSIS A. Right parotid tumor, biopsy: Pleomorphic adenoma. AM:doris 04/09/19 Case has been reviewed in consultation with Dr. Lawrence who concurs with the above diagnosis. IDC:SJ MICROSCOPIC DIAGNOSIS A. Right parotid tumor, biopsy: Pleomorphic adenoma (4 cm in greatest dimension). Adjacent major salivary gland tissue, no pathologic diagnosis. See comment. B. Portion of right parotid gland tissue: Major salivary gland tissue, no pathologic diagnosis. :doris 04/13/19 COMMENT A. The tumor appears to be completely excised. Please make reference to previous specimen ([id number]) fine needle aspiration, right parotid mass with diagnosis of consistent with pleomorphic adenoma. Case has been reviewed in consultation with Dr. Coburn who concurs with the above diagnosis. IDC:AM MICROSCOPIC DESCRIPTION Slides are reviewed. GROSS DESCRIPTION A - Received fresh for frozen section diagnosis labeled with the patient's name is a specimen designated right parotid gland deep lobe mass. The specimen consists of a piece of solorzano, indurated tissue weighing 17.8 gm and measuring 4 x 3 x 2.5 cm. The specimen is inked and serially sectioned to reveal solorzano, lobulated, solid, focally mucoidy cur faces. A section is submitted for frozen section diagnosis. The entire specimen is submitted in ten cassettes. Cassette 1 contains the frozen section. / MAURI:doris 04/09/19 B - Received in fixative is one container labeled with the patient's name and designated portion of right parotid gland. The specimen consists of a piece of pink, glandular tissue weighing 3.3 gm and measuring 3.5 x 2 x 1 cm. The specimen is inked, serially sectioned and do not reveal any mass lesion. The entire specimen is submitted in four cassettes. / MAURI:doris 04/12/19 TC:1 CPT: 89843 x2, 75076
--- NOTE | 2019-04-09 10:26 | EKG12_ITS ---
Test Reason : PRE-OP Blood Pressure : / mmHG Vent. Rate : 068 BPM Atrial Rate : 068 BPM P-R Int : 190 ms QRS Dur : 092 ms QT Int : 444 ms P-R-T Axes : 068 -08 049 degrees QTc Int : 472 ms Normal sinus rhythm ProminentT waves: Peaked T waves: consider metabolic effect (hyperkalemia) Confirmed by KAILA MENDEZ, PRAVEENA ([id number]), editor publications ROMERO AGUIAR ([id number]) on 04/13/2019 9:00:56 AM Referred By: Jenaro Jones Confirmed By:PRAVEENA BRIGHT MD
[2019-04-09 10:43] LABS: Hematocrit 36.1 % (40-54); Hemoglobin 10.9 g/dL (13.0-16.5); Mean Corp Hgb Conc 30.2 g/dL (32-36); Mean Corpuscular Hgb 22.8 pg (27.0-32.0); Mean Corpuscular Volume 75.5 fL (80-94); Mean Platelet Vol. 9.9 fl (6.2-12.0); Platelet Count 151 K/mm3 (150-450); RBC Distribution Width CV 17.1 % (11.6-14.6); RBC Distribution Width SD 45.9 fl (35.1-43.9); Red Blood Count 4.78 M/mm3 (4.6-6.2); White Blood Count 4.5 K/mm3 (4.4-11.0)
[2019-04-09 10:58] LABS: Anion Gap 12 (5-15); BUN 74 mg/dL (7-18); BUN/Creat Ratio 7.9 RATIO (10-20); Calcium,Total 8.5 mg/dL (8.5-10.1); Chloride 95 mmol/L (98-107); Creatinine, Serum 9.36 mg/dL (0.70-1.30); EST Glomerular Filtration Rate 6 mL/min (>60); Est Glom Filt Rate - Afr Amer 8 mL/min (>60); Glucose 167 mg/dL (74-106); Potassium 4.6 mmol/L (3.5-5.1); Sodium Level 138 mmol/L (136-145)
[2019-04-09 11:01] LABS: Hemoglobin A1c 6.2 % (4.2-6.3)
[2019-04-09] MEDS: Lactated Ringers 1,000 ML 100 ML IV (11:37)
[2019-04-09 11:46] LABS: Bedside Glucose 172 mg/dL (70-110)
[2019-04-09] MEDS: Bacitracin 500 UNITS/GM PACKET (14:49)
--- NOTE | 2019-04-09 17:07 | PCM.OPRPT ---
Problem List (1) Parotid mass Status: Acute Report of Operation Date of Procedure: 04/09/19 Pre-Operative Diagnosis: Right parotid mass Post-Operative Diagnosis: Right parotid pleomorphic adenoma Surgery/Procedure Performed:: Right parotidectomy with preservation of the facial nerve Description of Surgical Findings:: Dipak is a 48-year-old male who presents with a rapidly enlarging mass of the right parotid gland. He denied any previous awareness of mass or trauma or infection of this area. Ultrasound showed a lobulated highly suspicious mass 3 cm in size and fine-needle aspiration biopsy suggested pleomorphic adenoma. Given the potential for malignant transformation of these entities and the reported rapid growth excision for treatment and evaluation was advised and he was agreeable to proceed. The risks, alternatives, potential complications, and benefits were discussed at length and any questions answered to the patient and/or caregiver's satisfaction. Witnessed informed consent was obtained in the office, and the patient and/or caregiver was agreeable to proceed. Procedure went as follows: The patient was identified in the preoperative holding and the right parotid lesion site marked in accordance with the patient's physical skin exam, office notes, and consent. The patient was then brought to the operating room, placed under general anesthesia and intubated. When appropriate anesthesia was obtained, the facial nerve monitoring electrodes were then placed in accordance with the manufacture's directions over the right side of the face and confirmed to be operational. The planned incision was then marked with a marking pen and injected with 1% lidocaine with 100,000 epinephrine for a total of 5 mL. After allowing for vasoconstriction, a standard parotidectomy incision was then made using a 15 blade scalpel through the skin and subcutaneous tissues. The subcutaneous tissue was then dissected and the greater auricular nerve identified with the branches along the posterior aspect of the incisional flap preserved. Dissection was then carried down along the sternocleidomastoid freeing the parotid attachments to this muscle. Dissection was then carried out along the tragal cartilage and the main trunk of the facial nerve identified. The facial nerve was noted to be splayed and severely attenuated over the bulging surface of the mass. These were then liberated from their attachment to allow for resection of the mass which extended to the deep lobe and was dissected free from the use of buccinator muscle. The gland was then resected following out along the facial nerve branches working inferiorly to superiorly and freeing the mass from the parotid gland sacrificing a cuff of normal-appearing parotid tissue. This was then sent for surgical specimen. This confirmed benign pleomorphic adenoma. Due to the rather market attenuation of the facial nerve branches additional dissection was not elected due to their great risk of injury. Operative stimulation of the facial nerve branches confirmed preservation of function. The wound bed was then copiously irrigated with saline solution and a #7 flat RICARDO drain placed and brought out through separate stab incision in the skin. The wound was then closed deeply with interrupted 3-0 Vicryl sutures followed by a running 5-0 Monocryl to the skin. The patient was then returned to anesthesia, was revived, and extubated without complication having tolerated the procedure well. Type of Anesthesia:: General Anesthesiologist: Uli Chisholm Special Medications: none Specimen's removed: Right parotid mass Drains: #7 flat RICARDO Estimated Blood Loss (mL): 50 mL Fluids Replaced: 750 mL Grafts/Implants Used: none - Complications none - Admit VTE Documentation VTE Present on Admission: No VTE Mechan Device Prophylaxis: SCD's VTE Pharm Prophylaxis ordered?: No
--- NOTE | 2019-04-09 17:14 | DCINST_ITS ---
You will use the following diet at home:: Fluid restricted (specify 2000 mls, 1500 mls) - 1500 mL, Renal (restricted protein/sodium) Discharge Activity: Return to Normal Activity, May not drive while taking narcotic pain medications. Call your doctor if your incision/area has: Increased Pain/ Swelling, Foul Sme lling Discharge, Swelling at the incision site Call your doctor if you observe: Fever of 101 or Higher, Uncontrolled pain Allergies/Adverse Reactions: Allergies calcium [From PhosLo] Allergy (Verified 04/09/19 11:09) Hives Medications to take at Discharge Hydralazine HCl 100 mg PO TID 07/06/17 Insulin Detemir [Levemir FlexPen] 10 units SC QHS 07/06/17 Insulin Detemir [Levemir FlexPen] 13 units SC DAILY 07/06/17 Latanoprost 0.005% [Xalatan Opthalmic] 1 drp EACH EYE QHS 07/06/17 Metoprolol Tartrate 25 mg PO QHS 07/06/17 Sevelamer Carbonate [Renvela] 1,600 mg PO TIDCM 07/06/17 Minoxidil [Loniten] 2.5 mg PO DAILY 10/18/18 Acetaminophen [Tylenol Tablet] 650 mg PO Q6H PRN PRN tab 10/20/18 Aspirin E.C. [Ecotrin] 81 mg PO DAILY@0800 tab 10/20/18 Atorvastatin Calcium [Lipitor] 40 mg PO QHS #30 tab 10/20/18 Losartan Potassium [Cozaar] 50 mg PO DAILY #30 tab 10/20/18 Ibuprofen [Motrin] 600 mg PO Q8 PRN tab 10/21/18 Clopidogrel Bisulfate [Clopidogrel] 75 mg PO DAILY 04/08/19 Orders to be completed after discharge: CBC-Complete Blood Cnt No Diff Time Frame: 04/09/19, Facility: [facility], Location: Laboratory Hemoglobin A1c Time Frame: 04/09/19, Facility: [facility], Location: Laboratory Primary Care Physician: Peter Coronado MD [Primary Care Provider] - Test Results: Test results from this visit will be discussed in further detail at your follow- up appointment, if applicable. Please Follow Up With: Jenaro Jones MD When: 2 weeks
[2019-04-09 17:25] LABS: Bedside Glucose 116 mg/dL (70-110)
[2019-04-09] MEDS: Lactated Ringers 1,000 ML 40 ML IV (19:51)
[2019-04-09] MEDS: hydrALAZINE 50 MG Tablet 100 MG PO (22:54)
[2019-04-09] MEDS: Atorvastatin Calcium 40 MG Tablet PO (22:55)
[2019-04-09] MEDS: Metoprolol Tartrate 25 MG Tablet PO (22:55)
[2019-04-09] MEDS: Latanoprost 0.005% 1 Bottle 1 DRP EACH EYE (22:56)
[2019-04-09] MEDS: Acetaminophen 325 MG Tablet 650 MG PO (23:05)
[2019-04-09 23:25] LABS: Bedside Glucose 150 mg/dL (70-110)
[2019-04-10 01:44] VITALS: BP 149/83; PULSE 74; RESP 18; TEMP 36.4; O2SAT 100
[2019-04-10 02:35] LABS: Bedside Glucose 167 mg/dL (70-110)
[2019-04-10 06:04] VITALS: BP 158/97; PULSE 81; RESP 18; TEMP 36.6; O2SAT 99
[2019-04-10 06:13] VITALS: BP 158/97; PULSE 81
[2019-04-10] MEDS: hydrALAZINE 50 MG Tablet 100 MG PO (06:13)
[2019-04-10 09:00] VITALS: BP 139/91; PULSE 85; RESP 16; TEMP 36.4
--- NOTE | 2019-04-10 09:08 | PCM.PN.SRG ---
Subjective: Patient reports he has been well overnight without significant pain in his incisional site. Objective: Well-appearing male at the bedside on renal dialysis. His right facial incision is intact without significant swelling. Drain output was 10 mL overnight. Facial movement is full and intact in all branches. - Physical Exam Vitals/I&O's: Vital Signs Temp Pulse Resp BP Pulse Ox 97.9 F 81 18 158/97 H 99 04/10/19 06:04 04/10/19 06:13 04/10/19 06:04 04/10/19 06:13 04/10/19 06:04 Oxygen Flow Rate (L/min) 4 Oxygen Delivery Method Room Air Weight: 67.857 kg Body Mass Index (BMI) 19.2 Finger Stick Blood Glucose 370 Intake and Output for Last 24 Hours 04/08/19 04/09/19 04/10/19 23:59 23:59 23:59 Intake Total 1023.33 / 1023.33 276.67 / 276.67 Output Total 15 / 15 Balance 1008.33 / 1008.33 276.67 / 276.67 General: Alert, Oriented x3, No apparent distress HEENT: Atraumatic, PERRLA Oral: Moist Mucosa Neck: Supple Lungs: Normal air movement, No rhonchi, No wheeze Cardiovascular: Regular rate, Regular Rhythm Skin: No rashes, No breakdown Psych/Mental Status: Alert and oriented to time, place, person, mood and affect Laboratory Results 04/09/19 10:36: Sodium 138, Potassium 4.6, Chloride 95 L, Carbon Dioxide 31.0, Anion Gap 12, BUN 74 H, Creatinine 9.36 H*, Est GFR (MDRD) Af Amer 8 L, Est GFR (MDRD) Non-Af 6 L, BUN/Creatinine Ratio 7.9 L, Glucose 167 H, Calcium 8.5 04/09/19 10:36: WBC 4.5, RBC 4.78, Hgb 10.9 L, Hct 36.1 L, MCV 75.5 L, MCH 22.8 L, MCHC 30.2 L, RDW Std Deviation 45.9 H, RDW Coeff of Edda 17.1 H, Plt Count 151, MPV 9.9 04/09/19 10:36: Hemoglobin A1c 6.2 04/09/19 11:14: POC Glucose 172 H 04/09/19 17:23: POC Glucose 116 H 04/09/19 22:58: POC Glucose 150 H 04/10/19 01:41: POC Glucose 167 H Current Medications Acetaminophen (Tylenol) 650 mg PO Q6H PRN PRN PRN Reason: Mild pain 1-3/Temp > 100.7 F Last Admin: 04/09/19 23:05 Dose: 650 mg Documented by: Aspirin (Ecotrin) 81 mg PO DAILY@0800 [facility] Atorvastatin Calcium (Lipitor) 40 mg PO QHS [facility] Last Admin: 04/09/19 22:55 Dose: 40 mg Documented by: Clopidogrel Bisulfate (Plavix) 75 mg PO DAILY [facility] Hydralazine HCl (Apresoline) 100 mg PO TID [facility] Last Admin: 04/10/19 06:13 Dose: 100 mg Documented by: Lactated Ringer's () 1,000 mls @ 40 mls/hr IV .Q25H [facility] Last Infusion: 04/10/19 01:48 Dose: Infused Documented by: Ibuprofen (Motrin) 200 mg PO Q6H PRN PRN PRN Reason: Pain Score 4-10/10 Insulin Glargine (Lantus (Bkc)) 13 units SC DAILY [facility] Insulin Glargine (Lantus (Bkc)) 10 units SC QHS [facility] Last Admin: 04/09/19 23:00 Dose: 10 unit Documented by: Latanoprost (Xalatan Opthalmic) 1 drop EACH EYE QHS [facility] Last Admin: 04/09/19 22:56 Dose: 1 drop Documented by: Losartan Potassium (Cozaar) 50 mg PO DAILY [facility] Metoprolol Tartrate (Lopressor (Beta [place])) 25 mg PO QHS [facility] Last Admin: 04/09/19 22:55 Dose: 25 mg Documented by: Minoxidil (Loniten) 2.5 mg PO DAILY [facility] Sevelamer Carbonate (Renvela) 1,600 mg PO TIDCM [facility] Sodium Chloride () 10 - 40 ml IV UD PRN PRN Reason: SALINE FLUSH Medical Necessity - Tobacco Use Smoking Status: Never smoker Tobacco Use: Non-smoker Assessment/Plan All Active Problems (Last Reviewed 02/27/19 @ 08:53 by Sharifa Green) Chest pain (Acute) Parotid mass (Acute) Problem with dialysis access (Acute) NSTEMI (non-ST elevated myocardial infarction) (Acute) Malnutrition (Acute) Diabetic foot infection (Acute) Hyponatremia (Acute) Acute on chronic anemia (Acute) Cellulitis of right foot (Acute) Amputated great toe of right foot (Resolved) Hammer toe of right foot (Resolved) Malnutrition (Resolved) Right forefoot osteomyelitis (Resolved) Dipak is doing well status post excision of a right parotid pleomorphic adenoma. Drain output has been minimal over the last shift. This is removed. After removal there is noted to be some slight serosanguineous discharge from the drain site which is felt to be secondary to his renal dialysis. A Kerlix pressure dressing was applied to reduce the risk of accumulation of fluid underneath the skin flap. I have asked that he keep this in place until his follow-up visit next week. He is otherwise doing well with minimal pain and has had preservation of his facial nerve function. We discussed that the lesion was noted to be a benign or noncancerous tumor and that although this was excised there is a risk of recurrence however in the absence of malignancy aggressive surgery was not elected due to the high risk of injury to his facial nerve which has been preserved at this point. He states an understanding of these risks and overall is happy with the result and outcome of his procedure. He is appropriate for discharge to home with this point when he completes his dialysis treatment.
[2019-04-10 13:51] VITALS: BP 149/81; PULSE 78; RESP 16; TEMP 36.6
--- NOTE | 2019-04-10 13:52 | DIALYSIS ---
hemodialysis completed x 4 hrs. Access via LFA AVF. fluid removal 1500ml. See HD flowsheet on chart.
[2019-04-10 14:54] VITALS: BP 142/87; PULSE 95; RESP 18; TEMP 36.6; O2SAT 95
== END 2019-04-10 15:05 | disposition home or self-care (01) ==
LOC: SDC 17:32
PROVIDERS: Anesthesiology; Admitting Provider Otolaryngology; Family Provider Family Medicine; PCP Family Medicine; Referring Provider Otolaryngology; Visit Provider Otolaryngology
PROC: (CPT 42410; principal; 2019-04-09 11:30)
DX: D11.0 Benign neoplasm of parotid gland (principal); E11.22 Type 2 diabetes mellitus with diabetic chronic kidney disease; F32.9 Major depressive disorder, single episode, unspecified; Z79.899 Other long term (current) drug therapy; Z79.82 Long term (current) use of aspirin; Z79.4 Long term (current) use of insulin; I12.0 Hypertensive chronic kidney disease with stage 5 chronic kidney disease or end stage renal disease; N18.6 End stage renal disease; Z99.2 Dependence on renal dialysis; E78.00 Pure hypercholesterolemia, unspecified; Z79.02 Long term (current) use of antithrombotics/antiplatelets
CPT/HCPCS: 42415; 36415; 80048; 82962; 83036; 85027; 88305; 88307; 88331; 90937; 93005; 99218; J7120; G0257; G0378; G0379; J2405

== ENCOUNTER 2021-01-29 20:00 | Observation (INO) | payer MEDICARE, MEDICAID, SELFPAY ==
[2021-01-29 20:02] VITALS: BP 177/124; PULSE 87; RESP 18; TEMP 36.2; O2SAT 98
[2021-01-29 21:28] LABS: Absolute Lymphocyte Count 0.51 X10^3/uL (0.83-4.51); Absolute Neutrophil Count 3.7 X10^3/uL (2.0-7.7); Basophil# 0.02 X10^3/uL; Basophil% 0.4 % (0-1); Eosinophil# 0.02 X10^3/uL; Eosinophils% 0.4 % (0-5); Hematocrit 43.8 % (40-54); Hemoglobin 13.4 g/dL (13.0-16.5); Lymphocyte # 0.51 X10^3/ul (0.83-4.51); Lymphocyte % 11.3 % (19-41); Mean Corp Hgb Conc 30.6 g/dL (32-36); Mean Corpuscular Hgb 23.4 pg (27.0-32.0); Mean Corpuscular Volume 76.6 fL (80-94); Monocyte# 0.21 X10^3/uL; Monocyte% 4.7 % (0-10); NRBC Flagged by Analyzer 0 % (0-5); Neutrophil # 3.73 X10^3/uL (2.7-7.7); Neutrophil % 82.8 % (47-70); POSITIVE COUNT YES; POSITIVE DIFFERENTIAL YES; Platelet Count 86 K/mm3 (150-450); RBC Distribution Width CV 16.8 % (11.6-14.6); RBC Distribution Width SD 45.1 fl (35.1-43.9); Red Blood Count 5.72 M/mm3 (4.6-6.2); White Blood Count 4.5 K/mm3 (4.4-11.0)
[2021-01-29 21:35] LABS: Differential Indicated SCAN CRITERIA MET
[2021-01-29 21:38] LABS: AST(SGOT) 41 U/L (15-37); Alanine Aminotransfer ALT/SGPT 29 U/L (16-61); Albumin, Serum 4.2 g/dL (3.2-5.0); Alkaline Phosphatase 109 U/L (45-117); Anion Gap 3 (5-15); BUN 33 mg/dL (7-18); BUN/Creat Ratio 5.8 RATIO (10-20); Calcium,Total 8.7 mg/dL (8.5-10.1); Chloride 100 mmol/L (98-107); Creatinine, Serum 5.71 mg/dL (0.70-1.30); EST Glomerular Filtration Rate 11 mL/min (>60); Est Glom Filt Rate - Afr Amer 14 mL/min (>60); Estimated Creatinine Clearance 15.53 ml/min; Glucose 88 mg/dL (74-106); Potassium 4.2 mmol/L (3.5-5.1); Protein, Total 8.2 g/dL (6.4-8.2); Sodium Level 137 mmol/L (136-145)
[2021-01-29 21:39] VITALS: PULSE 74; RESP 15; O2SAT 100
--- NOTE | 2021-01-29 21:58 | EKG12_ITS ---
Test Reason : GENERAL Blood Pressure : / mmHG Vent. Rate : 072 BPM Atrial Rate : 072 BPM P-R Int : 130 ms QRS Dur : 080 ms QT Int : 466 ms P-R-T Axes : 073 -02 056 degrees QTc Int : 510 ms Normal sinus rhythm Septal infarct , age undetermined Prolonged QT Abnormal ECG Confirmed by ANDREA MENDEZ, TEODORA ([id number]), video tape editor ALISON RHODES ([id number]) on 02/01/2021 10:27:00 AM Referred By: ALEXANDRO Confirmed By:TEODORA MENDEZ MD
[2021-01-29 22:15] LABS: Differential Comment SCANNED
[2021-01-29 22:16] LABS: Platelet Estimate MOD DEC (ADEQ)
[2021-01-29 22:28] LABS: Bacteria 0 SEEN /hpf (None Seen); Mucous, Urine 0 SEEN /hpf (<or=2+)
[2021-01-29 22:31] LABS: Color, Urine Yellow (Yellow); Glucose, Dipstick Normal (Normal); Ketone-Dipstick Negative (Negative); Leukocyte Esterase-Dipstick Negative /ul (Negative); Nitrite-Dipstick Negative (Negative); Occult Blood-Urine 25 /ul (Negative); Protein-Dipstick 100 mg/dl (Negative); Urine Bilirubin Dipstick Negative (Negative); Urine Clarity Clear (Clear); Urine Urobilinogen Normal (Normal)
[2021-01-29 22:39] LABS: Red Blood Cells-Urine 0-5 SEEN /hpf (0-5); Squamous Epithelial Cells - UA 0-5 SEEN /hpf (0-5); White Blood Cells 0 SEEN /hpf (0-5)
[2021-01-29] MEDS: Ondansetron 4 MG/2 ML Vial IV (23:02)
--- NOTE | 2021-01-29 23:41 | EX.ED.DYSGE1 ---
HPI History of Present Illness Chief Complaint: General Illness Informant: patient Onset/Context/Timing Current Severity: Gone Maximum Severity: Unable to determine Worsened by: None Relieved by: Not applicable Associated Symptoms Associated Symptoms: Patient states he got dressed for dialysis. He woke up on the bed. Narrative Narrative: Patient is a 50-year-old male with history of end-stage renal disease on hemodialysis who had a syncopal episode. He has multiple medical problems. He was due for dialysis today. He states he got dressed to go to dialysis. He awoke on the bed. He thought he was at dialysis and then realized he was still at home on the bed. He has vomited since awakening and vomited prior to arrival. He denied blood or coffee grounds in the emesis. [place] maroon or black-colored stool. He denies headache, visual, ocular auditory symptoms. He denies cardiac or respiratory symptoms. He denies abdominal pain. Denies back pain. He denies paresthesia, anesthesia medics. He denies problems with balance. He has most medical problems which include atherosclerotic disease with stent placement, dyslipidemia, diabetic neuropathy, hypertension, chronic anemia, peripheral arterial disease, glaucoma. Prior similar symptoms: No Recent Illness/Hospitalization: No PFSH PFS Medical History (Updated 01/29/21 @ 23:[address] Rusty Juan MD) Acute on chronic anemia Anemia due to chronic kidney disease Atherosclerotic heart disease of [place] coronary artery without angina pectoris Benign essential hypertension Cellulitis of right foot Chronic kidney disease Delayed wound healing Depression Diabetes mellitus type 1 Diabetes mellitus with neuropathy Diabetic foot infection Diabetic neuropathy DM type 1 causing renal disease ESRD (end stage renal disease) on dialysis Glaucoma History of iron deficiency HTN (hypertension) Hyperlipidemia Hypomagnesemia Hyponatremia Malnutrition Microcytic anemia NSTEMI (non-ST elevated myocardial infarction) Peripheral vascular disease Ulcer of right foot with fat layer exposed Home Medications hydralazine 100 mg PO TID 07/06/17 [History Last Taken 04/09/19 08:00 100 MG] insulin detemir U-100 10 units SC QHS 07/06/17 [History Last Taken 10/17/18] insulin detemir U-100 13 units SC DAILY 07/06/17 [History Last Taken 10/17/18] latanoprost 1 drp EACH EYE QHS 07/06/17 [History Last Taken 10/17/18] metoprolol tartrate 25 mg PO QHS 07/06/17 [History Last Taken 10/17/18] sevelamer carbonate [Renvela] 1,600 mg PO TIDCM 07/06/17 [History Last Taken 10/17/18] minoxidil 2.5 mg PO DAILY 10/18/18 [History Last Taken 10/17/18] acetaminophen 650 mg PO Q6H PRN PRN tab 10/20/18 [Rx Last Taken Unknown] aspirin 81 mg PO DAILY@0800 tab 10/20/18 [Rx Last Taken Unknown] atorvastatin 40 mg PO QHS #30 tab 10/20/18 [Rx Last Taken Unknown] losartan 50 mg PO DAILY #30 tab 10/20/18 [Rx Last Taken 04/09/19 08:00 50 MG] ibuprofen 600 mg PO Q8 PRN tab 10/21/18 [Rx Last Taken Unknown] clopidogrel 75 mg PO DAILY 04/08/19 [History Last Taken Unknown] Allergy/AdvReac Type Severity Reaction Status Date / Time calcium [From PhosLo] Allergy Hives Verified 01/29/21 20:05 Family History Sister Heart disease Uncle Colon cancer Surgical History Presence of surgically created primary arteriovenous shunt for hemodialysis Status post peripheral artery angioplasty Status post transmetatarsal amputation of right foot Stented coronary artery (10/19/18) Social History (Updated 01/29/21 @ 23:[address] Rusty Juan MD) household members: family Smoking Status: Never smoker alcohol intake: never substance use type: does not use ROS ROS ED Constitutional Constitutional ED: Denies chills, fever(s), subjective or sweats Eyes Eyes: Denies blurry vision, change in vision or diplopia ENT ENT ED: Denies ear pain, rhinorrhea or sore throat Cardiovascular Cardiovascular: Denies chest pain, orthopnea, palpitations or racing heartbeat Respiratory/Chest Respiratory/Chest: Denies cough, dyspnea, dyspnea on exertion or orthopnea Gastrointestinal Gastrointestinal: Reports nausea and vomiting; Denies abdominal pain, constipation or diarrhea Genitourinary Genitourinary ED: Denies dysuria or hematuria Integumentary Denies abscess, Abrasions or rash Neurologic Neurologic: Denies headache(s) or weakness Allergic/Immunologic Allergic/Immunologic ED: Denies urticaria EXAM Physical Exam Const Vital Signs: 01/29/21 20:02 01/29/21 21:01 01/29/21 21:39 Temperature 97.2 F L Temperature Source Temporal Pulse Rate 87 74 Respiratory Rate 18 15 Respiratory Effort Normal Non-Labored Blood Pressure 177/124 H Blood Pressure Mean 141 Pulse Ox 98 100 Oxygen Delivery Method Room Air Room Air Positive well nourished and well developed General Appearance ED: well developed and NAD HEENT Reports TM's clear and moist mucous membranes HEENT Narrative: Head is atraumatic normocephalic. Ears are normal. Nares patent. Posterior pharynx no erythema or exudate. Tympanic Membrane ED: Yes TM's clear Eyes PERRL and EOMs intact bilaterally General Eye ED: Negative for pale conjunctiva Neck no lymphadenopathy, supple and no JVD Chest Wall inspection of chest normal Resp normal respiratory effort and clear to auscultation bilaterally Cardio regular rate, regular rhythm, S1 normal heart sound and no murmurs GI normal to inspection, nondistended, normoactive bowel sounds, non-tender, non-distended and no masses; Negative for hepatosplenomegaly Palpation: soft; Negative for splenomegaly Back/Spine no CVA tenderness Cervical Spine: Negative for cervical spine tenderness Thoracic Spine / Upper Back: Negative for thoracic spinal tenderness Extremity normal to inspection General Extremety ED: Negative for edema or tenderness General Extremity: Negative for edema Neuro oriented x3, CN's II-XII intact bilaterally and no sensory deficits noted Sensorium / Orientation: alert Motor Exam: strength 5/5 throughout MDM MDM MDM Narrative Medical decision making narrative: Patient has single episode. This may represent vasovagal, GI bleed, cardiac dysrhythmia. With history of dialysis and missing dialysis need to rule out hyper kalemia. An EKG was obtained to rule out acute ischemic changes. Lab Data Attestation: I reviewed the patient's lab results. Lab results narrative: CBC and differential unremarkable. Comprehensive metabolic panel is remarkable for a BUN of 33 and a creatinine of 5.7 which is not significant in a patient on hemodialysis. UA is negative. Labs: Laboratory Results - last 24 hr 01/29/21 01/29/21 01/29/21 20:48 20:48 22:19 WBC 4.5 RBC 5.72 Hgb 13.4 Hct 43.8 MCV 76.6 L MCH 23.4 L MCHC 30.6 L RDW Std Deviation 45.1 H RDW Coeff of Edda 16.8 H Plt Count 86 L MPV TNP Immature Gran % (Auto) 0.400 Neut % (Auto) 82.8 H Lymph % (Auto) 11.3 L [place] % (Auto) 4.7 Eos % (Auto) 0.4 Baso % (Auto) 0.4 Absolute Neuts (auto) 3.7 Absolute Lymphs (auto) 0.51 L Nucleated RBC % 0 Differential Comment SCANNED Platelet Estimate MOD DEC Sodium 137 Potassium 4.2 Chloride 100 Carbon Dioxide 34.0 H Anion Gap 3 L BUN 33 H Creatinine 5.71 H Estim Creat Clear Calc 15.53 Est GFR (MDRD) Af Amer 14 L Est GFR (MDRD) Non-Af 11 L BUN/Creatinine Ratio 5.8 L Glucose 88 Calcium 8.7 Total Bilirubin 0.50 AST 41 H ALT 29 Alkaline Phosphatase 109 Total Protein 8.2 Albumin 4.2 Globulin 4.0 Albumin/Globulin Ratio 1.0 Urine Color Yellow Urine Clarity Clear Urine pH 8.0 Ur Specific [place] 1.010 Urine Protein 100 H Urine Glucose (UA) Normal Urine Ketones Negative Urine Occult Blood 25 H Urine Nitrite Negative Urine Bilirubin Negative Urine Urobilinogen Normal Ur Leukocyte Esterase Negative Urine RBC 0-5 SEEN Urine WBC 0 SEEN Ur Squamous Epith Cells 0-5 SEEN Urine Bacteria 0 SEEN Urine Mucus 0 SEEN EKG Initial EKG: Attestation: I personally reviewed and interpreted this EKG as follows: Interpretation: Sinus Rhythm (Normal sinus rhythm with ventricular rate of 72. CO intervals 130 ms. QRS duration 80 ms. QT duration 406 6 ms with a QTC of 510 ms which is prolonged. Patient has decreased anterior forces. He has prominent T waves in V3 and V4. This may represent hyperkalemia.) Discharge Plan Triage Chief Complaint: General Illness ED Provider: Rusty Juan Dx/Rx/DC Orders Clinical Impression: Syncope and collapse Prescriptions: No Action latanoprost 1 DROP bottle 1 drp EACH EYE QHS RF: 0 hydralazine 100 MG tablet 100 mg PO TID RF: 0 metoprolol tartrate 25 MG tablet 25 mg PO QHS RF: 0 insulin detemir U-100 100 UNITS/ML insulin pen 10 units SC QHS RF: 0 insulin detemir U-100 100 UNITS/ML insulin pen 13 units SC DAILY RF: 0 sevelamer carbonate [Renvela] 800 MG tablet 1,600 mg PO TIDCM RF: 0 minoxidil 2.5 MG tablet 2.5 mg PO DAILY RF: 0 losartan 50 MG tablet 50 mg PO DAILY Qty: 30 RF: 0 acetaminophen 325 MG tablet 650 mg PO Q6H PRN PRN (Reason: Mild pain 1-3/Temp > 100.7 F) RF: 0 aspirin 81 MG tablet 81 mg PO DAILY@0800 RF: 0 atorvastatin 40 MG tablet 40 mg PO QHS Qty: 30 RF: 0 ibuprofen 600 MG tablet 600 mg PO Q8 PRN (Reason: chest pain) RF: 0 clopidogrel 75 MG tablet 75 mg PO DAILY RF: 0 Primary Care Provider: Peter Coronado Referrals: Peter Coronado MD [Primary Care Provider] - Disposition Disposition: Acute Care Hospital [facility]
--- NOTE | 2021-01-29 23:59 | PCM.HP.STD ---
Documented by User: JOÃO Michel 01/30/21 00:20 HPI - General General Date of Admission: 01/30/21 Date of Service: 01/30/21 Chief Complaint: Syncope HPI Narrative THOM PASCUAL, is a 50 M who presents with complaints of syncopal episode at home. Patient states that he remembers waking up getting dressed and eating breakfast in preparation to attend dialysis and then the next thing he remembers was waking up laying on his bed. Patient reports that when he awoke he thought it was morning however it was late evening. Patient reports that he vomited immediately upon awakening and again immediately prior to arrival in the ER. Patient denies fever, chills, shortness of breath, cough, chest pain, diarrhea, constipation. Patient also denies blood or coffee-ground appearing emesis. Patient is noted to have extensive cardiac history along with end-stage renal disease. [facility]LY [facility] Medical History (Updated 01/30/21 @ 01:10 by Isha Cross) Acute on chronic anemia Anemia due to chronic kidney disease Atherosclerotic heart disease of [place] coronary artery without angina pectoris Benign essential hypertension Cellulitis of right foot Chronic kidney disease Delayed wound healing Depression Diabetes Diabetes mellitus type 1 Diabetes mellitus with neuropathy Diabetic foot infection Diabetic neuropathy Dialysis patient DM type 1 causing renal disease ESRD (end stage renal disease) on dialysis Glaucoma History of iron deficiency HTN (hypertension) Hyperlipidemia Hypomagnesemia Hyponatremia Kidney disease Malnutrition Microcytic anemia Non-smoker NSTEMI (non-ST elevated myocardial infarction) Peripheral vascular disease Ulcer of right foot with fat layer exposed Home Medications hydralazine 100 mg PO TID 07/06/17 [History Last Taken 04/09/19 08:00 100 MG] insulin detemir U-100 10 units SC QHS 07/06/17 [History Last Taken 10/17/18] insulin detemir U-100 13 units SC DAILY 07/06/17 [History Last Taken 10/17/18] latanoprost 1 drp EACH EYE QHS 07/06/17 [History Last Taken 10/17/18] metoprolol tartrate 25 mg PO QHS 07/06/17 [History Last Taken 10/17/18] sevelamer carbonate [Renvela] 1,600 mg PO TIDCM 07/06/17 [History Last Taken 10/17/18] minoxidil 2.5 mg PO DAILY 10/18/18 [History Last Taken 10/17/18] acetaminophen 650 mg PO Q6H PRN PRN tab 10/20/18 [Rx Last Taken Unknown] aspirin 81 mg PO DAILY@0800 tab 10/20/18 [Rx Last Taken Unknown] atorvastatin 40 mg PO QHS #30 tab 10/20/18 [Rx Last Taken Unknown] losartan 50 mg PO DAILY #30 tab 10/20/18 [Rx Last Taken 04/09/19 08:00 50 MG] ibuprofen 600 mg PO Q8 PRN tab 10/21/18 [Rx Last Taken Unknown] clopidogrel 75 mg PO DAILY 04/08/19 [History Last Taken Unknown] Allergy/AdvReac Type Severity Reaction Status Date / Time calcium [From PhosLo] Allergy Hives Verified 01/29/21 20:05 Family History Sister Heart disease Uncle Colon cancer Surgical History Presence of surgically created primary arteriovenous shunt for hemodialysis Status post peripheral artery angioplasty Status post transmetatarsal amputation of right foot Stented coronary artery (10/19/18) Social History household members: family Smoking Status: Never smoker alcohol intake: never substance use type: does not use ROS Constitutional Constitutional: Denies anorexia, chills, fatigue, fever(s) or weakness Cardiovascular Cardiovascular: Reports nausea, syncope and vomiting; Denies chest pain, dyspnea, edema, fatigue, palpitations or tachypnea Respiratory/Chest Respiratory/Chest: Denies cough, shortness of breath at rest, shortness of breath with exertion or wheezing Gastrointestinal Gastrointestinal: Reports nausea and vomiting; Denies abdominal pain, constipation or diarrhea Genitourinary Genitourinary: Denies dysuria Musculoskeletal Musculoskeletal: Denies back pain, extremity pain, joint pain or joint stiffness Integumentary Integumentary: Denies dry skin Neurologic Neurologic: Denies abnormal gait, abnormal speech, confusion, dizziness, focal weakness or headache(s) Psychiatric Psychiatric: Denies anxiety or depression Endocrine Endocrinology: Denies change in body appearance Hematologic/Lymphatic Hematologic/Lymphatic: Denies easy bleeding or easy bruising Vital Signs Vital Signs Vital Signs: 01/29/21 20:02 01/29/21 21:01 01/29/21 21:39 Temperature 97.2 F L Temperature Source Temporal Pulse Rate 87 74 Respiratory Rate 18 15 Respiratory Effort Normal Non-Labored Blood Pressure 177/124 H Blood Pressure Mean 141 Pulse Ox 98 100 Oxygen Delivery Method Room Air Room Air Weight Weight: 160 lb Body Mass Index (BMI) 20.0 Physical Exam Const alert and oriented x3 General Appearance: cooperative HEENT normocephalic and head/scalp atraumatic Eyes conjunctivae normal and no scleral icterus Neck supple and no JVD General: trachea midline Resp normal respiratory effort, normal air movement and clear to auscultation bilaterally Cardio regular rate, regular rhythm, S1 normal heart sound, S2 normal heart sound and peripheral pulses 2+ throughout GI normal to inspection, nondistended, normoactive bowel sounds, soft to palpation and non-tender Extremity normal capillary refill and no clubbing, cyanosis or edema General Extremity: no tenderness to palpation of joints or extremities Skin General Skin Exam: no breakdown and turgor normal Lesions: no lesions Rashes: no rashes Neuro no focal motor deficits and no sensory deficits noted Speech: speech normal Motor Exam: Negative for general weakness Psych thought process normal, cooperative and affect normal Appearance: appropriate Results Lab / Micro Data Result Diagrams: 01/29/21 20:48 01/29/21 20:48 Labs: Laboratory Results - last 24 hr 01/29/21 20:48: WBC 4.5, RBC 5.72, Hgb 13.4, Hct 43.8, MCV 76.6 L, MCH 23.4 L, MCHC 30.6 L, RDW Std Deviation 45.1 H, RDW Coeff of Edda 16.8 H, Plt Count 86 L, MPV TNP, Immature Gran % (Auto) 0.400, Neut % (Auto) 82.8 H, Lymph % (Auto) 11.3 L, Hamilton % (Auto) 4.7, Eos % (Auto) 0.4, Baso % (Auto) 0.4, Absolute Neuts (auto) 3.7, Absolute Lymphs (auto) 0.51 L, Nucleated RBC % 0, Differential Comment SCANNED, Platelet Estimate MOD DEC 01/29/21 20:48: Sodium 137, Potassium 4.2, Chloride 100, Carbon Dioxide 34.0 H, Anion Gap 3 L, BUN 33 H, Creatinine 5.71 H, Estim Creat Clear Calc 15.53, Est GFR (MDRD) Af Amer 14 L, Est GFR (MDRD) Non-Af 11 L, BUN/Creatinine Ratio 5.8 L, Glucose 88, Calcium 8.7, Total Bilirubin 0.50, AST 41 H, ALT 29, Alkaline Phosphatase 109, Total Protein 8.2, Albumin 4.2, Globulin 4.0, Albumin/Globulin Ratio 1.0 01/29/21 22:19: Urine Color Yellow, Urine Clarity Clear, Urine pH 8.0, Ur Specific Patterson 1.010, Urine Protein 100 H, Urine Glucose (UA) Normal, Urine Ketones Negative, Urine Occult Blood 25 H, Urine Nitrite Negative, Urine Bilirubin Negative, Urine Urobilinogen Normal, Ur Leukocyte Esterase Negative, Urine RBC 0-5 SEEN, Urine WBC 0 SEEN, Ur Squamous Epith Cells 0-5 SEEN, Urine Bacteria 0 SEEN, Urine Mucus 0 SEEN Assessment & Plan Assessment/Plan (1) Syncope and collapse: PLAN: 1. Syncope and collapse -Admit to PCU for cardiac monitoring -CBC, CMP, TSH, magnesium, phosphorus ordered for a.m. -Trend cardiac enzymes -Echocardiogram ordered for a.m. -Orthostatic vital signs x1 -Vital signs per protocol 2. End-stage renal disease with dialysis -Due to syncopal event patient missed dialysis today, BUN and creatinine with inpatient normal values -CMP daily -Patient states he is currently undergoing initial testing for kidney transplant with 3. Hypertension -Vital signs per protocol -Continue home medication regimen -As needed hydralazine ordered 4. Diabetes mellitus type 1 with neuropathy -Continue home medication regimen -AC at bedtime blood sugars with sliding scale insulin ordered 5. Chronic anemia -Stable 6. Hyperlipidemia -Continue atorvastatin 7. Atherosclerotic heart disease of [place] coronary artery without angina pectoris -Patient has 1 stent placed 10/19/2018 DVT prophylaxis-no pharmacological prophylaxis indicated This patient was seen by JOÃO Michel under the supervision of Dr. Clancy. Documented by User: Dr. Elmer Clancy MD 01/30/21 01:22 HPI - General General Date of Admission: 01/30/21 [facility] Medical History (Updated 01/30/21 @ 01:10 by Isha Cross) Acute on chronic anemia Anemia due to chronic kidney disease Atherosclerotic heart disease of [place] coronary artery without angina pectoris Benign essential hypertension Cellulitis of right foot Chronic kidney disease Delayed wound healing Depression Diabetes Diabetes mellitus type 1 Diabetes mellitus with neuropathy Diabetic foot infection Diabetic neuropathy Dialysis patient DM type 1 causing renal disease ESRD (end stage renal disease) on dialysis Glaucoma History of iron deficiency HTN (hypertension) Hyperlipidemia Hypomagnesemia Hyponatremia Kidney disease Malnutrition Microcytic anemia Non-smoker NSTEMI (non-ST elevated myocardial infarction) Peripheral vascular disease Ulcer of right foot with fat layer exposed Home Medications hydralazine 100 mg PO TID 07/06/17 [History Last Taken 04/09/19 08:00 100 MG] insulin detemir U-100 10 units SC QHS 07/06/17 [History Last Taken 10/17/18] insulin detemir U-100 13 units SC DAILY 07/06/17 [History Last Taken 10/17/18] latanoprost 1 drp EACH EYE QHS 07/06/17 [History Last Taken 10/17/18] metoprolol tartrate 25 mg PO QHS 07/06/17 [History Last Taken 10/17/18] sevelamer carbonate [Renvela] 1,600 mg PO TIDCM 07/06/17 [History Last Taken 10/17/18] minoxidil 2.5 mg PO DAILY 10/18/18 [History Last Taken 10/17/18] acetaminophen 650 mg PO Q6H PRN PRN tab 10/20/18 [Rx Last Taken Unknown] aspirin 81 mg PO DAILY@0800 tab 10/20/18 [Rx Last Taken Unknown] atorvastatin 40 mg PO QHS #30 tab 10/20/18 [Rx Last Taken Unknown] losartan 50 mg PO DAILY #30 tab 10/20/18 [Rx Last Taken 04/09/19 08:00 50 MG] ibuprofen 600 mg PO Q8 PRN tab 10/21/18 [Rx Last Taken Unknown] clopidogrel 75 mg PO DAILY 04/08/19 [History Last Taken Unknown] Allergy/AdvReac Type Severity Reaction Status Date / Time calcium [From PhosLo] Allergy Hives Verified 01/29/21 20:05 Family History Sister Heart disease Uncle Colon cancer Surgical History Presence of surgically created primary arteriovenous shunt for hemodialysis Status post peripheral artery angioplasty Status post transmetatarsal amputation of right foot Stented coronary artery (10/19/18) Social History household members: family Smoking Status: Never smoker alcohol intake: never substance use type: does not use Results Lab / Micro Data Result Diagrams: 01/29/21 20:48 01/29/21 20:48 Charges/Coding Addendum Addendum: Patient was seen and examined independently. I agree with assessment and plan by JOÃO Michel Patient is a 51-year-old male with a significant history of diabetes mellitus and end-stage renal disease on dialysis who presents emergency department with altered mental status. Reportedly the day of presentation was his dialysis day. He was supposed to go to dialysis. However he ate breakfast and slept all day. By the time he woke up it was night. And was confused about a day. He thought it was still morning. He called his dialysis center and asked that they make arrangement for him to come to the emergency department. Also he reports nausea and vomiting. He thought that his symptoms was due to hypoglycemia but however his blood glucose was normal. Physical exam: General: Well-nourished, well-developed, no acute distress Head: Normocephalic, atraumatic, no tenderness Eyes: PERRLA, EOMI ENT, no trauma, moist mucous membranes, no rhinorrhea Neck: Nontender, full range of motion, no spinal tenderness, deformities, step-off CVS: Regular rate and rhythm Respiratory no acute distress, clear to auscultation bilaterally, chest wall nontender, no wheezing Abdomen: Soft, nontender, nondistended, normal bowel sounds, no masses : Deferred Back: Nontender, no CVA tenderness, no midline spinal tenderness, deformities, step-offs Extremities: Right leg in brace. Left leg without edema Skin: Normal color, no trauma, abrasions Neuro: Alert, oriented, cranial nerves II through XII grossly intact. Psychiatry: Normal mood. Normal affect. Not depressed. Not anxious. Acute encephalopathy Etiology could be syncope; metabolic or other. EKG showed a prolonged QTC and with septal infarct. Will observe on progressive care unit on telemetry. Will get echocardiogram. Review of chart showed his last echocardiogram on file was in 2019. At that time ejection fraction was 75% and he has stage I diastolic dysfunction. Will get TSH; ammonia; and vitamin B12. Prolonged QTC Avoid QTC prolongation drugs. Check magnesium. ESRD on dialysis Nephrology consult Sevelamer continued Renal diet Diabetes mellitus Patient with blood glucose of 88 on BMP. Hold home Basal insulin. Accu-Chek QA [facility] with correction scale insulin ordered. Hypertension Blood pressure is not within goal Metoprolol; Hydralazine and losartan continued. As needed labetalol ordered. Trend blood pressure and adjust blood pressure medications. CAD Stable Aspirin; Plavix and high intensity statin continued DVT prophylaxis Low risk in observation status Visit Charges OBSV E&M: 97158 Initial observation care L3
[2021-01-30] VITALS (10 sets, daily range): BP systolic 126–190; BP diastolic 72–121; PULSE 80–99; RESP 13–18; TEMP 36.8–37.2; O2SAT 96–100; BMI 18.1
[2021-01-30 00:21] LABS: Bedside Glucose 90 mg/dL (70-110)
[2021-01-30 01:56] LABS: Magnesium 2.5 mg/dL (1.6-2.6)
[2021-01-30 02:08] LABS: Troponin-I HS 31 pg/mL (3.0-78.0)
--- NOTE | 2021-01-30 03:41 | PCS.PANDOC ---
PANDEMIC DOCUMENTATION INITIATED: Date: 01/22/2021 Time: 190
[2021-01-30 03:59] LABS: Troponin-I HS 30 pg/mL (3.0-78.0)
--- NOTE | 2021-01-30 05:55 | ECHOD_ITS ---
Reason For Study: Syncope/Near Syncope Procedure This was a 2D Doppler, Color Flow transthoracic echocardiogram. The exam was of adequate technical quality. Bubble Study Performed. Exam performed portable in patient room. Left Ventricle Normal LV size. Severe concentric left ventricular hypertrophy. Left ventricular systolic function is hyperdynamic. The estimated ejection fraction is 75 %. Diastolic function is indeterminate. No regional wall motion abnormalities noted. Right Ventricle Normal RV size. Normal systolic function. Atria Normal left atrium. Normal right atrium. No doppler evidence for ASD. Bubble contrast study negative for right to left interatrial shunt. Mitral Valve There is no mitral annular calcification. Mild diffuse mitral valve thickening. Trivial mitral valve insufficiency. Tricuspid Valve Normal tricuspid valve. Trivial tricuspid valve insufficiency. Unable to estimate RV systolic pressure due to insufficient tricuspid regurgitant envelope. Aortic Valve Trisinus/trileaflet aortic valve. Mild diffuse aortic valve thickening. Mild focal aortic valve calcification. Pulmonic Valve The pulmonic valve is not well visualized. Great Vessels The aortic root is not well visualized. Pericardium/Pleural No pericardial effusion. Medication Performed a rapid injection of agitated mix of 9 cc saline and 1cc air to assess for atrial septal defect. MMode/2D Measurements & Calculations LVIDd: 3.3 cm IVSd: 2.1 cm LA dimension: 2.6 cm LVIDs: 2.1 cm LVPWd: 1.5 cm FS: 37.3 % LAV(MOD-bp): 28.6 ml LA A4 area: 11.8 cm2 RA A4 area: 13.4 cm2 LAV(MOD-bp) Indexed: 14.9 ml/m2 LAV(MOD-sp2): 20.6 ml LAV(MOD-sp4): 29.4 ml Time Measurements MV dec time: 0.18 sec Doppler Measurements & Calculations MV E max abel: 57.9 cm/sec Lat Peak E' Abel: 8.3 cm/sec Med Peak E' Abel: 5.9 cm/sec MV A max abel: 100.4 cm/sec E/E' lat: 7.0 E/E' med: 9.9 MV E/A: 0.58 Ao V2 max: 110.4 cm/sec LV V1 max: 97.8 cm/sec PA V2 max: 78.3 cm/sec Ao max P.9 mmHg LV V1 max P.8 mmHg ECHO/Echo Complete Interpretation Summary Left ventricular systolic function is hyperdynamic. The estimated ejection fraction is 75 %. Severe concentric left ventricular hypertrophy. Mild diffuse mitral valve thickening. Trivial mitral valve insufficiency. Trivial tricuspid valve insufficiency. Mild diffuse aortic valve thickening. Mild focal aortic valve calcification. Unable to estimate RV systolic pressure due to insufficient tricuspid regurgita nt envelope. Diastolic function is indeterminate. Bubble contrast study negative for right to left interatrial shunt. Ordering Physician: Heidi Cano Referring Physician: MD Cliff Peter Performed By: Hamlet Funk RCS
[2021-01-30] MEDS: hydrALAZINE 50 MG Tablet 100 MG PO (06:24)
[2021-01-30 06:31] LABS: Bedside Glucose 102 mg/dL (70-110)
[2021-01-30 07:15] LABS: Absolute Neutrophil Count 2.6 X10^3/uL (2.0-7.7); Basophil# 0.02 X10^3/uL; Basophil% 0.5 % (0-1); Eosinophil# 0.04 X10^3/uL; Eosinophils% 1.1 % (0-5); Hematocrit 39.2 % (40-54); Hemoglobin 12.2 g/dL (13.0-16.5); Mean Corp Hgb Conc 31.1 g/dL (32-36); Mean Corpuscular Hgb 23.7 pg (27.0-32.0); Mean Corpuscular Volume 76.1 fL (80-94); Monocyte# 0.36 X10^3/uL; Monocyte% 9.8 % (0-10); NRBC Flagged by Analyzer 0 % (0-5); Neutrophil # 2.56 X10^3/uL (2.7-7.7); Neutrophil % 69.3 % (47-70); POSITIVE COUNT YES; Platelet Count 79 K/mm3 (150-450); RBC Distribution Width CV 16.6 % (11.6-14.6); RBC Distribution Width SD 44.7 fl (35.1-43.9); Red Blood Count 5.15 M/mm3 (4.6-6.2); White Blood Count 3.7 K/mm3 (4.4-11.0)
[2021-01-30 07:43] LABS: ALB/GLOB Ratio 1.1 RATIO (0.9-2.4); AST(SGOT) 43 U/L (15-37); Alanine Aminotransfer ALT/SGPT 27 U/L (16-61); Albumin, Serum 3.8 g/dL (3.2-5.0); Alkaline Phosphatase 102 U/L (45-117); Anion Gap 8 (5-15); BUN 38 mg/dL (7-18); BUN/Creat Ratio 5.7 RATIO (10-20); Calcium,Total 8.3 mg/dL (8.5-10.1); Chloride 99 mmol/L (98-107); Creatinine, Serum 6.61 mg/dL (0.70-1.30); EST Glomerular Filtration Rate 9 mL/min (>60); Est Glom Filt Rate - Afr Amer 11 mL/min (>60); Estimated Creatinine Clearance 12.17 ml/min; Globulin 3.4 g/dL (2.2-4.2); Glucose 112 mg/dL (74-106); Magnesium 2.5 mg/dL (1.6-2.6); Potassium 4.1 mmol/L (3.5-5.1); Protein, Total 7.2 g/dL (6.4-8.2); Sodium Level 136 mmol/L (136-145); Thyroid Stim Hormone (TSH) 1.35 uIU/mL (0.358-3.74); Troponin-I HS 32 pg/mL (3.0-78.0)
[2021-01-30] MEDS: Aspirin E.C. 81 MG Tablet PO (08:04)
[2021-01-30] MEDS: Minoxidil 2.5 MG Tablet PO (08:05)
[2021-01-30] MEDS: SEVELAMER CARBONATE 800 MG TABLET 1600 MG PO ×2 (08:05→12:12)
[2021-01-30] MEDS: Losartan Potassium 50 MG Tablet PO (08:05)
[2021-01-30] MEDS: Clopidogrel Bisulfate 75 MG Tablet PO (08:05)
[2021-01-30 09:40] LABS: Vitamin B12 988 pg/mL (211-911)
--- NOTE | 2021-01-30 11:01 | PCM.DC ---
Discharge Instructions Diet Discharge Diet: No restrictions Activity Discharge Activity: Return to Normal Activity Weight Bearing Status: Weight bearing as tolerated Dressing / Incision Call your doctor if you observe: Fever of 101 or Higher, Numbness or Tingling, Shortness of breath, Dizziness, Chest pain, Increased palpitations (irregular heartbeat) and Calf discomfort Follow Up Care Please Follow Up With: Primary care provider When: Within the next two weeks. Test Results: Test results from this visit will be discussed in further detail at your follow-up appointment, if applicable. Discharge Plan Admission Admit Date/Time: 01/30/21 00:05 Primary Reason for Your Visit: Syncopal episode Attending Provider: Lupillo Gonzalez Primary Care Provider: Peter Coronado Instructions Patient Instructions: ED Chest Pain, Noncardiac Discharge Orders/Prescriptions Prescriptions: Continued latanoprost 1 DROP bottle 1 drp EACH EYE QHS RF: 0 hydralazine 100 MG tablet 100 mg PO TID RF: 0 metoprolol tartrate 25 MG tablet 25 mg PO QHS RF: 0 insulin detemir U-100 100 UNITS/ML insulin pen 10 units SC QHS RF: 0 insulin detemir U-100 100 UNITS/ML insulin pen 13 units SC DAILY RF: 0 sevelamer carbonate [Renvela] 800 MG tablet 1,600 mg PO TIDCM RF: 0 minoxidil 2.5 MG tablet 2.5 mg PO DAILY RF: 0 losartan 50 MG tablet 50 mg PO DAILY Qty: 30 RF: 0 acetaminophen 325 MG tablet 650 mg PO Q6H PRN PRN (Reason: Mild pain 1-3/Temp > 100.7 F) RF: 0 aspirin 81 MG tablet 81 mg PO DAILY@0800 RF: 0 atorvastatin 40 MG tablet 40 mg PO QHS Qty: 30 RF: 0 clopidogrel 75 MG tablet 75 mg PO DAILY RF: 0 Discontinued ibuprofen 600 MG tablet 600 mg PO Q8 PRN (Reason: chest pain) RF: 0 Referrals / Follow Up: Peter Coronado MD [Primary Care Provider] - Within 2 Weeks Disposition Disposition (needs filled in before D/C Order can be placed): Home, Self Care
[2021-01-30 11:55] LABS: Bedside Glucose 148 mg/dL (70-110)
--- NOTE | 2021-01-30 12:44 | PHA.DC.MR ---
Pharmacy Service has performed discharge medication reconciliation for this patient. The patient's discharge medication list was reviewed for discrepancies and discrepancies were resolved. Home Medications hydralazine 100 mg PO TID 07/06/17 insulin detemir U-100 10 units SC QHS 07/06/17 insulin detemir U-100 13 units SC DAILY 07/06/17 latanoprost 1 drp EACH EYE QHS 07/06/17 metoprolol tartrate 25 mg PO QHS 07/06/17 sevelamer carbonate [Renvela] 1,600 mg PO TIDCM 07/06/17 minoxidil 2.5 mg PO DAILY 10/18/18 acetaminophen 650 mg PO Q6H PRN PRN tab 10/20/18 aspirin 81 mg PO DAILY@0800 tab 10/20/18 atorvastatin 40 mg PO QHS #30 tab 10/20/18 losartan 50 mg PO DAILY #30 tab 10/20/18 clopidogrel 75 mg PO DAILY 04/08/19
--- NOTE | 2021-01-30 13:13 | DS.PCM_ITS ---
Documented by User: Levi CARR 01/30/21 13:26 Providers Date of Admission: 01/30/21 Primary Care Physician: Dr. Peter Coronado MD Reason For Visit: SYNCOPE Diagnosis Discharge Diagnosis (1) Syncope and collapse: Status: Acute Code(s): R55 - Syncope and collapse Medications at Discharge Home Medications hydralazine 100 mg PO TID 07/06/17 insulin detemir U-100 10 units SC QHS 07/06/17 insulin detemir U-100 13 units SC DAILY 07/06/17 latanoprost 1 drp EACH EYE QHS 07/06/17 metoprolol tartrate 25 mg PO QHS 07/06/17 sevelamer carbonate [Renvela] 1,600 mg PO TIDCM 07/06/17 minoxidil 2.5 mg PO DAILY 10/18/18 acetaminophen 650 mg PO Q6H PRN PRN tab 10/20/18 aspirin 81 mg PO DAILY@0800 tab 10/20/18 atorvastatin 40 mg PO QHS #30 tab 10/20/18 losartan 50 mg PO DAILY #30 tab 10/20/18 clopidogrel 75 mg PO DAILY 04/08/19 Hospital Course Procedures Transthoracic echo Summary of Care Provided Minutes Spent on Discharge: 35 Hospital Course: Disposition: Patient to be discharged home, no home health care needs or additional therapies identified. 1) syncope Patient endorses a syncopal episode after receiving dialysis. Denies any further loss of consciousness since being admitted or development of any other symptoms. Echocardiogram obtained and demonstrated hyperdynamic left ventricular systolic function and estimated EF of 75% severe concentric left ventricular hypertrophy and an indeterminate diastolic function. CBC and BMP were noncontributory. High-sensitivity troponins not elevated. TSH is within normal limits. Glucose is within normal limits. Magnesium and phosphorus within normal limits. Believe patient's syncope was related to overaggressive dialysis. Plan; discharge home, follow-up with primary care provider within the next 2 weeks, follow-up with mechanical spreader operator within the next 2 weeks. 2) ESRD Receives dialysis on , , schedule. Currently trying to obtain a kidney transplant with . Follow-up with primary care provider within the next 2 weeks. 3) HTN Continue home BP regimen. 4) DM 1 with neuropathy Stable, continue home diabetic regimen. 5) Chronic anemia Stable 6) Hyperlipidemia Continue statin. Patient seen by Levi Murphy PA-C, under the supervision of Dr. Gonzalez. Physical Exam Narrative Patient is a 50-year-old male comfortably resting in bed, alert and orient x3. Patient denies any further syncopal episodes or development of any new symptoms. Denies chest pain, shortness of breath, palpitations, hemoptysis, sputum production, fever, chills, N/V/D. Const alert, oriented x3 and no apparent distress HEENT normocephalic, head/scalp atraumatic and hearing grossly normal bilaterally Eyes EOMs intact bilaterally and conjunctivae normal Neck no lymphadenopathy, supple and no JVD Resp normal respiratory effort, no retractions and no use of accessory muscles Cardio regular rate, regular rhythm, no murmurs and no JVD GI normal to inspection, nondistended, normoactive bowel sounds, soft to palpation and non-tender Extremity normal to inspection, full ROM and no clubbing, cyanosis or edema Skin no rashes or lesions noted, no wounds and skin turgor normal Neuro CN's II-XII intact bilaterally Psych affect normal Weight / BMI Weight Weight: 145 lb 1.027 oz Body Mass Index (BMI) 18.1 ABG / Lab / Microbiology Data Result Diagrams: 01/30/21 07:02 01/30/21 07:02 Laboratory: Laboratory Results - last 24 hr 01/29/21 20:48: WBC 4.5, RBC 5.72, Hgb 13.4, Hct 43.8, MCV 76.6 L, MCH 23.4 L, MCHC 30.6 L, RDW Std Deviation 45.1 H, RDW Coeff of Edda 16.8 H, Plt Count 86 L, MPV TNP, Immature Gran % (Auto) 0.400, Neut % (Auto) 82.8 H, Lymph % (Auto) 11.3 L, [place] % (Auto) 4.7, Eos % (Auto) 0.4, Baso % (Auto) 0.4, Absolute Neuts (auto) 3.7, Absolute Lymphs (auto) 0.51 L, Nucleated RBC % 0, Differential Comment SCANNED, Platelet Estimate MOD 01/29/21 20:48: Sodium 137, Potassium 4.2, Chloride 100, Carbon Dioxide 34.0 H, Anion Gap 3 L, BUN 33 H, Creatinine 5.71 H, Estim Creat Clear Calc 15.53, Est GFR (MDRD) Af Amer 14 L, Est GFR (MDRD) Non-Af 11 L, BUN/Creatinine Ratio 5.8 L, Glucose 88, Calcium 8.7, Total Bilirubin 0.50, AST 41 H, ALT 29, Alkaline Phosphatase 109, Total Protein 8.2, Albumin 4.2, Globulin 4.0, Albumin/Globulin Ratio 1.0 01/29/21 22:19: Urine Color Yellow, Urine Clarity Clear, Urine pH 8.0, Ur Specific [place] 1.010, Urine Protein 100 H, Urine Glucose (UA) Normal, Urine Ketones Negative, Urine Occult Blood 25 H, Urine Nitrite Negative, Urine Bilirubin Negative, Urine Urobilinogen Normal, Ur Leukocyte Esterase Negative, Urine RBC 0-5 SEEN, Urine WBC 0 SEEN, Ur Squamous Epith Cells 0-5 SEEN, Urine Bacteria 0 SEEN, Urine Mucus 0 SEEN 01/30/21 00:17: POC Glucose 90 01/30/21 01:02: Ammonia 11.0 01/30/21 01:20: Magnesium 2.5 01/30/21 01:20: Troponin I High Sens 31 01/30/21 03:36: Troponin I High Sens 30 01/30/21 06:23: POC Glucose 102 01/30/21 07:02: WBC 3.7 L, RBC 5.15, Hgb 12.2 L, Hct 39.2 L, MCV 76.1 L, MCH 23.7 L, MCHC 31.1 L, RDW Std Deviation 44.7 H, RDW Coeff of Edda 16.6 H, Plt Count 79 L, Immature Gran % (Auto) 0.300, Neut % (Auto) 69.3, Lymph % (Auto) 19.0, [place] % (Auto) 9.8, Eos % (Auto) 1.1, Baso % (Auto) 0.5, Absolute Neuts (auto) 2.6, Absolute Lymphs (auto) 0.70 L, Nucleated RBC % 0 01/30/21 07:02: Sodium 136, Potassium 4.1, Chloride 99, Carbon Dioxide 29.0, Anion Gap 8, BUN 38 H, Creatinine 6.61 H, Estim Creat Clear Calc 12.17, Est GFR (MDRD) Af Amer 11 L, Est GFR (MDRD) Non-Af 9 L, BUN/Creatinine Ratio 5.7 L, Glucose 112 H, Calcium 8.3 L, Phosphorus 4.0, Magnesium 2.5, Total Bilirubin 0.50, AST 43 H, ALT 27, Alkaline Phosphatase 102, Troponin I High Sens 32, Total Protein 7.2, Albumin 3.8, Globulin 3.4, Albumin/Globulin Ratio 1.1, TSH 1.35 01/30/21 07:02: Vitamin B12 988 H 01/30/21 11:49: POC Glucose 148 H Radiography Diagnostic Testing: Radiology Impression Echocardiogram 01/30/21 05:55 Interpretation Summary Left ventricular systolic function is hyperdynamic. The estimated ejection fraction is 75 %. Severe concentric left ventricular hypertrophy. Mild diffuse mitral valve thickening. Trivial mitral valve insufficiency. Trivial tricuspid valve insufficiency. Mild diffuse aortic valve thickening. Mild focal aortic valve calcification. Unable to estimate RV systolic pressure due to insufficient tricuspid regurgitant envelope. Diastolic function is indeterminate. Bubble contrast study negative for right to left interatrial shunt. Ordering Physician: Heidi Cano Referring Physician: MD Peter Coronado Performed By: Hamlet Funk RCS D/C Instructions Discharge Diet: No restrictions Weight Bearing Status: Weight bearing as tolerated Call your doctor if you observe: Fever of 101 or Higher, Numbness or Tingling, Shortness of breath, Dizziness, Chest pain, Increased palpitations (irregular heartbeat) and Calf discomfort Please Follow Up With: Primary care provider When: Within the next two weeks. Meaningful Use Info Meaningful Use Diagnoses (Choose all that apply): None applicable Discharge Plan Admission Admit Date/Time: 01/30/21 00:05 Primary Reason for Your Visit: Syncopal episode Attending Provider: Lupillo Gonzalez Primary Care Provider: Peter Coronado Instructions Patient Instructions: ED Chest Pain, Noncardiac Discharge Orders/Prescriptions Prescriptions: Continued latanoprost 1 DROP bottle 1 drp EACH EYE QHS RF: 0 hydralazine 100 MG tablet 100 mg PO TID RF: 0 metoprolol tartrate 25 MG tablet 25 mg PO QHS RF: 0 insulin detemir U-100 100 UNITS/ML insulin pen 10 units SC QHS RF: 0 insulin detemir U-100 100 UNITS/ML insulin pen 13 units SC DAILY RF: 0 sevelamer carbonate [Renvela] 800 MG tablet 1,600 mg PO TIDCM RF: 0 minoxidil 2.5 MG tablet 2.5 mg PO DAILY RF: 0 losartan 50 MG tablet 50 mg PO DAILY Qty: 30 RF: 0 acetaminophen 325 MG tablet 650 mg PO Q6H PRN PRN (Reason: Mild pain 1-3/Temp > 100.7 F) RF: 0 aspirin 81 MG tablet 81 mg PO DAILY@0800 RF: 0 atorvastatin 40 MG tablet 40 mg PO QHS Qty: 30 RF: 0 clopidogrel 75 MG tablet 75 mg PO DAILY RF: 0 Discontinued ibuprofen 600 MG tablet 600 mg PO Q8 PRN (Reason: chest pain) RF: 0 Referrals / Follow Up: Torrie Felipe MD [STAFF PHYSICIAN] - Within 2 Weeks Peter Coronado MD [Primary Care Provider] - Within 2 Weeks Harman Uribe MD [STAFF PHYSICIAN] - Within 2 Weeks Disposition Disposition (needs filled in before D/C Order can be placed): Home, Self Care Documented by User: Dr. Lupillo Gonzalez MD 01/30/21 15:19 Providers Date of Admission: 01/30/21 Reason For Visit: SYNCOPE Medications at Discharge Home Medications hydralazine 100 mg PO TID 07/06/17 insulin detemir U-100 10 units SC QHS 07/06/17 insulin detemir U-100 13 units SC DAILY 07/06/17 latanoprost 1 drp EACH EYE QHS 07/06/17 metoprolol tartrate 25 mg PO QHS 07/06/17 sevelamer carbonate [Renvela] 1,600 mg PO TIDCM 07/06/17 minoxidil 2.5 mg PO DAILY 10/18/18 acetaminophen 650 mg PO Q6H PRN PRN tab 10/20/18 aspirin 81 mg PO DAILY@0800 tab 10/20/18 atorvastatin 40 mg PO QHS #30 tab 10/20/18 losartan 50 mg PO DAILY #30 tab 10/20/18 clopidogrel 75 mg PO DAILY 04/08/19 Hospital Course Operations - Summary of Care Provided Hospital Course: This patient was seen in conjunction with Levi Murphy PA-C. I have independently interviewed and examined the patient and reviewed pertinent historical, laboratory, and other data. Please refer to Levi Murphy PA-C's note for details of this patient's presentation, findings, and recommendations. I have reviewed Levi Murphy PA-C's note and concur with documented findings. In brief, patient is a 50-year-old gentleman with history of end-stage renal disease on hemodialysis admitted with confusion following dialysis. An assessment of dialysis disequilibrium syndrome made admitted to a monitored bed for subsequent management Hospital course: As documented above ABG / Lab / Microbiology Data Result Diagrams: 01/30/21 07:02 01/30/21 07:02 Discharge Plan Admission Admit Date/Time: 01/30/21 00:05 Primary Reason for Your Visit: Syncopal episode Attending Provider: Lupillo Gonzalez Primary Care Provider: Peter Coronado Instructions Patient Instructions: ED Chest Pain, Noncardiac Discharge Orders/Prescriptions Prescriptions: Continued latanoprost 1 DROP bottle 1 drp EACH EYE QHS RF: 0 hydralazine 100 MG tablet 100 mg PO TID RF: 0 metoprolol tartrate 25 MG tablet 25 mg PO QHS RF: 0 insulin detemir U-100 100 UNITS/ML insulin pen 10 units SC QHS RF: 0 insulin detemir U-100 100 UNITS/ML insulin pen 13 units SC DAILY RF: 0 sevelamer carbonate [Renvela] 800 MG tablet 1,600 mg PO TIDCM RF: 0 minoxidil 2.5 MG tablet 2.5 mg PO DAILY RF: 0 losartan 50 MG tablet 50 mg PO DAILY Qty: 30 RF: 0 acetaminophen 325 MG tablet 650 mg PO Q6H PRN PRN (Reason: Mild pain 1-3/Temp > 100.7 F) RF: 0 aspirin 81 MG tablet 81 mg PO DAILY@0800 RF: 0 atorvastatin 40 MG tablet 40 mg PO QHS Qty: 30 RF: 0 clopidogrel 75 MG tablet 75 mg PO DAILY RF: 0 Discontinued ibuprofen 600 MG tablet 600 mg PO Q8 PRN (Reason: chest pain) RF: 0 Referrals / Follow Up: Torrie Felipe MD [STAFF PHYSICIAN] - Within 2 Weeks Peter Coronado MD [Primary Care Provider] - Within 2 Weeks Harman Uribe MD [STAFF PHYSICIAN] - Within 2 Weeks Disposition Disposition (needs filled in before D/C Order can be placed): Home, Self Care Charges/Coding Visit Charges OBSV E&M: 45671 Observation care discharge Hospital Course Operations -
== END 2021-01-30 11:05 | disposition home or self-care (01) ==
LOC: ED 23:48 → PCU 01-30 00:20
PROVIDERS: Emergency Medicine; Nurse Practitioner Family; Admitting Provider Hospitalist; Emergency Provider Emergency Medicine; PCP Family Medicine; Visit Provider Internal Medicine
DX: R55 Syncope and collapse (principal); I25.10 Atherosclerotic heart disease of native coronary artery without angina pectoris; E78.5 Hyperlipidemia, unspecified; I12.0 Hypertensive chronic kidney disease with stage 5 chronic kidney disease or end stage renal disease; E10.51 Type 1 diabetes mellitus with diabetic peripheral angiopathy without gangrene; E10.22 Type 1 diabetes mellitus with diabetic chronic kidney disease; E10.40 Type 1 diabetes mellitus with diabetic neuropathy, unspecified; N18.6 End stage renal disease; Z99.2 Dependence on renal dialysis; D63.1 Anemia in chronic kidney disease; I25.2 Old myocardial infarction; Z79.899 Other long term (current) drug therapy; Z79.4 Long term (current) use of insulin; Z79.82 Long term (current) use of aspirin; Z79.02 Long term (current) use of antithrombotics/antiplatelets
CPT/HCPCS: 36415; 80053; 81001; 82140; 82607; 82962; 83735; 84100; 84443; 84484; 85025; 93005; 93306; 96374; 99218; 99285; A4216; G0378; J0610; J2405

== ENCOUNTER 2021-01-31 18:14 | Emergency (ER) | payer MEDICARE, MEDICAID, SELFPAY ==
[2021-01-31 18:16] VITALS: BP 247/120; PULSE 81; RESP 18; TEMP 36.4; BMI 18.4
[2021-01-31 19:15] VITALS: BP 216/105
[2021-01-31 19:41] LABS: Bedside Glucose 126 mg/dL (70-110)
[2021-01-31 21:16] LABS: Bedside Glucose 151 mg/dL (70-110)
--- NOTE | 2021-01-31 21:21 | EDS_ITS ---
HPI History of Present Illness Chief Complaint: Hypoglycemia Informant: patient Narrative Narrative: Patient is a 50-year-old male with extensive medical history including type 1 diabetes mellitus, end-stage renal disease on hemodialysis presenting with hypoglycemia. Patient states he finished dialysis today which he goes to Friday and Friday. He ate lunch and went to sleep. He woke up and he felt confused and felt like his blood sugar was low. It was 71. He took 2 glucose tablets. He called 911 was brought to the emergency room. He states he is currently feeling better. He has similar episode on Friday, 2 days ago. Patient was asked admitted for concern of syncope. He was discharged from the hospital yesterday. His work-up was largely normal including an echocardiogram and his presentation was thought to be secondary to overaggress mode dialysis. Patient was discharged home. Patient states he takes 13 units of insulin detemir in the morning and 10 units at night. He denies any recent weight changes. He states he is otherwise been feeling well. [facility] Medical History (Updated 01/31/21 @ 21:[address] Ramona Romero, ) Acute on chronic anemia Anemia due to chronic kidney disease Atherosclerotic heart disease of [place] coronary artery without angina pectoris Benign essential hypertension Cellulitis of right foot Chronic kidney disease Delayed wound healing Depression Diabetes Diabetes mellitus type 1 Diabetes mellitus with neuropathy Diabetic foot infection Diabetic neuropathy Dialysis patient DM type 1 causing renal disease ESRD (end stage renal disease) on dialysis Glaucoma History of iron deficiency HTN (hypertension) Hyperlipidemia Hypomagnesemia Hyponatremia Kidney disease Malnutrition Microcytic anemia Non-smoker NSTEMI (non-ST elevated myocardial infarction) Peripheral vascular disease Ulcer of right foot with fat layer exposed Home Medications hydralazine 100 mg PO TID 07/06/17 [History Last Taken 01/29/21] latanoprost 1 drp EACH EYE QHS 07/06/17 [History Last Taken 01/29/21] metoprolol tartrate 25 mg PO QHS 07/06/17 [History Last Taken 01/29/21] sevelamer carbonate [Renvela] 1,600 mg PO TIDCM 07/06/17 [History Last Taken 10/17/18] minoxidil 2.5 mg PO DAILY 10/18/18 [History Last Taken 01/29/21] acetaminophen 650 mg PO Q6H PRN PRN tab 10/20/18 [Rx Last Taken Unknown] aspirin 81 mg PO DAILY@0800 tab 10/20/18 [Rx Last Taken 01/29/21] atorvastatin 40 mg PO QHS #30 tab 10/20/18 [Rx Last Taken 01/29/21] losartan 50 mg PO DAILY #30 tab 10/20/18 [Rx Last Taken 01/29/21] clopidogrel 75 mg PO DAILY 04/08/19 [History Last Taken 01/29/21] insulin detemir U-100 8 unit SC QHS #0 ml 01/31/21 [Rx Last Taken 01/29/21] insulin detemir U-100 10 units SC DAILY #0 ml 01/31/21 [Rx Last Taken 01/29/21] Allergy/AdvReac Type Severity Reaction Status Date / Time calcium [From PhosLo] Allergy Hives Verified 01/29/21 20:05 Family History Sister Heart disease Uncle Colon cancer Surgical History Presence of surgically created primary arteriovenous shunt for hemodialysis Status post peripheral artery angioplasty Status post transmetatarsal amputation of right foot Stented coronary artery (10/19/18) Social History household members: family Smoking Status: Never smoker alcohol intake: never substance use type: does not use ROS ROS ED Constitutional Constitutional ED: Denies chills, fever(s) or malaise Eyes Eyes: Denies blurry vision or loss of vision ENT ENT ED: Denies rhinorrhea or sore throat Cardiovascular Cardiovascular: Denies chest pain or dizziness Respiratory/Chest Respiratory/Chest: Denies cough or dyspnea Gastrointestinal Gastrointestinal: Denies nausea or vomiting Genitourinary Genitourinary ED: Denies dysuria or hematuria Musculoskeletal Musculoskeletal: Denies arthralgias or myalgias Integumentary Denies rash or wounds Neurologic Neurologic: Reports confusion and other Details: generalized weakness ; Denies focal weakness or headache(s) Psychiatric Psychiatric: Denies anxiety or behavioral changes EXAM Physical Exam Const Vital Signs: 01/31/21 18:16 01/31/21 18:37 01/31/21 19:15 Temperature 97.6 F L Temperature Source Oral Pulse Rate 81 Respiratory Rate 18 Respiratory Effort Normal Non-Labored Blood Pressure 247/120 H 216/105 H Blood Pressure Mean 162 142 Oxygen Delivery Method Room Air Positive well nourished, well developed and no apparent distress General Appearance ED: well developed HEENT Reports normocephalic atraumatic Nose: no nasal discharge External Ear: external ears normal Mouth ED: Yes moist mucous membranes normal Eyes PERRL and EOMs intact bilaterally Neck full ROM and no meningeal signs Chest Wall inspection of chest normal Resp normal respiratory effort and normal air movement Cardio regular rate and regular rhythm Cardio Narrative: AV fistula left lower arm with palpable thrill GI normal to inspection, nondistended, normoactive bowel sounds Extremity normal to inspection and full ROM Neuro oriented x3 and no focal motor deficits Psych mental status grossly normal and thought process normal Skin no rashes or lesions noted and no wounds MDM MDM MDM Narrative Medical decision making narrative: Patient evaluated after an episode of feeling very weak and slow. His blood sugar was 71 and symptoms resolved after taking to glucose tablets. He had a very similar episode 2 days ago and was admitted to hospital work cardiac work up. Work up pretty unremarkable and discharged home. Patient currently feels well and has no complaints. Given that he had a thorough eval yesterday, he is agreeable with not rechecking labs. He eats in the ED and has no further hypoglycemia. He is hypertensive in the ED but it does improve without intervention. Given that he is asymptomatic, I do not suspect hypertensive emergency. Will follow up with his PCP. Will decrease his insulin as well. 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 Lab Data Labs: Laboratory Results - last 24 hr 01/31/21 01/31/21 19:30 21:04 POC Glucose 126 H 151 H Discharge Plan Triage Chief Complaint: Hypoglycemia ED Provider: Ramona Romero Dx/Rx/DC Orders Clinical Impression: Hypoglycemia due to type 1 diabetes mellitus Instructions: ED Diabetic Insulin Reaction Prescriptions: Continued latanoprost 1 DROP bottle 1 drp EACH EYE QHS RF: 0 hydralazine 100 MG tablet 100 mg PO TID RF: 0 metoprolol tartrate 25 MG tablet 25 mg PO QHS RF: 0 sevelamer carbonate [Renvela] 800 MG tablet 1,600 mg PO TIDCM RF: 0 minoxidil 2.5 MG tablet 2.5 mg PO DAILY RF: 0 losartan 50 MG tablet 50 mg PO DAILY Qty: 30 RF: 0 acetaminophen 325 MG tablet 650 mg PO Q6H PRN PRN (Reason: Mild pain 1-3/Temp > 100.7 F) RF: 0 aspirin 81 MG tablet 81 mg PO DAILY@0800 RF: 0 atorvastatin 40 MG tablet 40 mg PO QHS Qty: 30 RF: 0 clopidogrel 75 MG tablet 75 mg PO DAILY RF: 0 Changed insulin detemir U-100 100 UNITS/ML insulin pen 8 unit SC QHS Qty: 0 RF: 0 insulin detemir U-100 100 UNITS/ML insulin pen 10 units SC DAILY Qty: 0 RF: 0 Primary Care Provider: Peter Coronado Referrals: Peter Coronado MD [Primary Care Provider] - Activity Restrictions/Additional Instructions: Decrease insulin to 10 units in the morning and 8 units at night per the doctor nuisance animal damage control agent for Dr. Coronado. Call to follow-up with Dr. Sanchez later this week. Make sure you are eating a good breakfast before dialysis. Disposition Disposition: Home, Self Care Discharge Date/Time: 01/31/21 21:32
[2021-01-31 21:32] VITALS: RESP 16
== END 2021-01-31 21:32 | disposition home or self-care (01) ==
PROVIDERS: Emergency Provider Emergency Medicine; PCP Family Medicine
DX: E10.649 Type 1 diabetes mellitus with hypoglycemia without coma (principal); I25.10 Atherosclerotic heart disease of native coronary artery without angina pectoris; I25.2 Old myocardial infarction; Z99.2 Dependence on renal dialysis
CPT/HCPCS: 82962; 99284; A4216

== ENCOUNTER → 2021-03-08 09:26 | Outpatient (CLI) | payer MEDICARE, MEDICAID, SELFPAY ==
[2021-03-08 09:43] LABS: Absolute Lymphocyte Count 1.17 X10^3/uL (0.83-4.51); Absolute Neutrophil Count 2.1 X10^3/uL (2.0-7.7); Basophil# 0.04 X10^3/uL; Eosinophil# 0.32 X10^3/uL; Eosinophils% 7.8 % (0-5); Hematocrit 37.3 % (40-54); Hemoglobin 11.1 g/dL (13.0-16.5); Lymphocyte # 1.17 X10^3/ul (0.83-4.51); Lymphocyte % 28.6 % (19-41); Mean Corp Hgb Conc 29.8 g/dL (32-36); Mean Corpuscular Volume 77.2 fL (80-94); Mean Platelet Vol. 8.9 fl (6.2-12.0); Monocyte# 0.47 X10^3/uL; Monocyte% 11.5 % (0-10); NRBC Flagged by Analyzer 0 % (0-5); Neutrophil # 2.07 X10^3/uL (2.7-7.7); Neutrophil % 50.6 % (47-70); Platelet Count 100 K/mm3 (150-450); RBC Distribution Width CV 17.2 % (11.6-14.6); RBC Distribution Width SD 47.8 fl (35.1-43.9); Red Blood Count 4.83 M/mm3 (4.6-6.2); White Blood Count 4.1 K/mm3 (4.4-11.0)
[2021-03-08 09:59] LABS: Anion Gap 4 (5-15); BUN 44 mg/dL (7-18); BUN/Creat Ratio 6.2 RATIO (10-20); Calcium,Total 8.7 mg/dL (8.5-10.1); Chloride 100 mmol/L (98-107); Creatinine, Serum 7.11 mg/dL (0.70-1.30); EST Glomerular Filtration Rate 9 mL/min (>60); Est Glom Filt Rate - Afr Amer 11 mL/min (>60); Glucose 123 mg/dL (74-106); Sodium Level 138 mmol/L (136-145)
== END ==
PROVIDERS: Physician Assistant; PCP Family Medicine; Referring Provider Surgery; Visit Provider Surgery
DX: T82.898A Other specified complication of vascular prosthetic devices, implants and grafts, initial encounter (principal)
CPT/HCPCS: 36415; 80048; 85025

== ENCOUNTER 2021-03-15 09:56 | Day surgery (SDC) | payer MEDICARE, MEDICAID, SELFPAY ==
[2021-03-14 08:03] VITALS: BMI 18.7
--- NOTE | 2021-03-15 10:10 | HP.PCM_ITS ---
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 Is patient in pain?: No Allergies calcium [From PhosLo] Allergy (Verified 03/08/21 09:20) Hives Medications hydralazine 100 mg PO TID 07/06/17 [History Confirmed 03/08/21] latanoprost 1 drp EACH EYE QHS 07/06/17 [History Confirmed 03/08/21] metoprolol tartrate 25 mg PO QHS 07/06/17 [History Confirmed 03/08/21] sevelamer carbonate [Renvela] 1,600 mg PO TIDCM 07/06/17 [History Confirmed 0 03/08/21] minoxidil 2.5 mg PO DAILY 10/18/18 [History Confirmed 03/08/21] acetaminophen 650 mg PO Q6H PRN PRN tab 10/20/18 [Rx Confirmed 03/08/21] aspirin 81 mg PO DAILY@0800 tab 10/20/18 [Rx Confirmed 03/08/21] atorvastatin 40 mg PO QHS #30 tab 10/20/18 [Rx Confirmed 03/08/21] losartan 50 mg PO DAILY #30 tab 10/20/18 [Rx Confirmed 03/08/21] clopidogrel 75 mg PO DAILY 04/08/19 [History Confirmed 03/08/21] insulin detemir U-100 8 unit SC QHS #0 ml 01/31/21 [Rx Confirmed 03/08/21] insulin detemir U-100 10 units SC DAILY #0 ml 01/31/21 [Rx Confirmed 03/08/21] PFSH Medical History Acute on chronic anemia Anemia due to chronic kidney disease Atherosclerotic heart disease of [place] coronary artery without angina pectoris Benign essential hypertension Cellulitis of right foot Chronic kidney disease Delayed wound healing Depression Diabetes Diabetes mellitus type 1 Diabetes mellitus with neuropathy Diabetic foot infection Diabetic neuropathy Dialysis patient DM type 1 causing renal disease ESRD (end stage renal disease) on dialysis Glaucoma History of iron deficiency HTN (hypertension) Hyperlipidemia Hypomagnesemia Hyponatremia Kidney disease Malnutrition Microcytic anemia Non-smoker NSTEMI (non-ST elevated myocardial infarction) Peripheral vascular disease Syncope and collapse Ulcer of right foot with fat layer exposed Surgical History Presence of surgically created primary arteriovenous shunt for hemodialysis Status post peripheral artery angioplasty Status post transmetatarsal amputation of right foot Stented coronary artery (10/19/18) Family History Sister Heart disease Uncle Colon cancer Social History household members: family Smoking Status: Never smoker alcohol intake: never substance use type: does not use HPI HPI HPI: THOM PASCUAL, is a 50 M who presents to the office today for decreased flow rates. Patient denies any concerns or issues with dialysis. Patient's last intervention was on 12/22/18. Patient had a left upper extremity fistulogram with 6 x 20 mm conquest angioplasty. Findings included arterial anastomotic and proximal fistula venous stenosis. Patient denies any further fistulograms since that time. He is currently on dialysis M, W and F. He is on aspirin and Plavix currently for previous cardiac stent placement. ROS General General: No weight change, appetite, fatigue, colon cancer, breast cancer or weakness HEENT HEENT: No difficulty swallowing, eye injury, eye surgery, swollen glands or hoarseness Endo Endocrine: Yes diabetes mellitus; No thyroid disease, thyroid cancer, Hair loss, heat intolerance or cold intolerance Skin Skin: No rash or changing moles Breast Breast: No left breast lump, right breast lump, nipple discharge, breast pain, abnormal mammogram, abnormal US or breast enlargement Musc Musculoskeletal: Yes arthritis; No back problems, rheumatoid arthritis, gout or joint pain Cardio Cardiovascular: Yes heart disease, high blood pressure and heart stent; No murmur, pacemaker, atrial fibrillation, heart attack, palpitations, shortness of breat with exertion or chest pain Psych Psychiatric: No depression, anxiety or hearing voices Resp Respiratory: No shortness of breath, No sleep apnea, No cough, No COPD, No asthma, No emphysema and No wheezing Gastro Gastrointestinal: No abdominal pain, No nausea or vomiting, No diarrhea, No constipation, No blood in stool, No acid reflux, No hemorrhoids, No ulcers, No gallbladder problem and No black,tarry stools Presley Hematologic: Yes blood thinners, No blood disorders, No bleeding, Yes anemia and No blood clots Neuro Neurologic: No system reviewed and no additional complaints, except as documented, No as per HPI, No abnormal gait, No abnormal hearing, No abnormal movements, No abnormal speech, No behavioral changes, No burning sensations, No confusion, No convulsions, No disequilibrium, No dizziness, No localized weakness, No frequent falls, No headache(s), No lack of coordination, No loss of vision, No memory loss, Yes numbness, No other visual disturbances, No radicular pain, No restless legs, No sensory deficit, No syncope, Yes tingling, No tremor(s), No weakness and No other Exam Const General: cooperative, healthy appearing, comfortable and no acute distress [facility] Head: normal to inspection Eyes General: appearance normal, both eyes and all related structures Neck Neck: normal visual inspection Neck mass: No Resp Effort & Inspection: normal respiratory effort Auscultation: clear to auscultation bilaterally Cardio Rate: regular rate Rhythm: regular rhythm GI Inspection: normal to inspection Palpation: soft Skin General: no rashes or lesions noted Neuro General: no focal motor deficits and CN's II-XI intact bilaterally Extrem General: normal to inspection Other: Left forearm AV fistula- good pulse, slightly diminished bruit and thrill superior to the access sites. Psych Appearance: grossly normal Affect: normal affect Assessment and Plan Assessment and Plan (1) Problem with dialysis access: Status: Acute Qualifiers: Encounter type: initial encounter Qualified Code(s): T82.898A - Other specified complication of vascular prosthetic devices, implants and grafts, initial encounter Orders: Orders: Basic Metabolic Profile (BMP) Today CBC W/Diff, Automated Today Plan - Pamella CARR PARyanC: Dr. Andrews will plan to perform a left forearm fistulogram with possible intervention. Procedure details, risks and benefits have been explained the procedure. Patient has had the opportunity to ask and have questions answered. Patient verbally understands and agrees with the plan. Continue aspirin and Plavix for the procedure. I have re-examined the patient. There are no clinical changes since date of exam.
--- NOTE | 2021-03-15 12:14 | PCM.OPRPT ---
Problems Associated Problem List Diagnoses (1) Problem with dialysis access: Report of Operation Date of Procedure: 03/15/21 Pre-Operative Diagnosis: Poor flow left forearm radiocephalic arteriovenous hemodialysis fistula Post-Operative Diagnosis: High-grade proximal fistula venous stenosis Surgery/Procedure Performed:: Left upper extremity fistulogram with 6 x 4 conquest angioplasty Description of Surgical Findings:: Timeout and informed consent was obtained. 50-year-old gentleman was taken to the special procedures lab placed upon the table. He received 50 mcg of fentanyl and 1 mg of Versed is intravenous sedation. The left upper extremity was sterilely prepped and draped. Ultrasound was performed of the cephalic vein in the proximal forearm and under ultrasound guidance 2% lidocaine was instilled as a local anesthetic. A total of 1 cc was used. Then using ultrasound guidance retrograde access was gained to the cephalic vein using a micropuncture needle micropuncture wire and then a 6 [place] short sheath dilator. Using an 035 angled Glidewire a 4 [place] angled glide cath was advanced. I had significant difficulty identifying the actual lumen of the proximal portion of the fistula as a large sidebranch continue to take the wire. I eventually angled the glide catheter more toward the dorsal aspect of the forearm and then was able to get the Glidewire to angle and go into the radial artery. Was able to advance a 4 [place] angled glide cath. I had previously tried a 4 [place] IM cath and was not successful. I now was able to obtain a fistulogram with Isovue this demonstrated that the proximal 6 cm of the fistula were severely diseased and stenosed. I was able to advance a 6 x 4 conquest balloon perform balloon angioplasty at 3 different sites. Final fistulogram done through a 4 [place] glide cath demonstrated resolution of the area of stenosis. I finished the fistulogram through the upper arm sheath was removed U suture of 4-0 nylon was placed. Fistulogram demonstrates a left forearm radiocephalic AV fistula. There was high-grade 90% stenosis in 2 critical areas of the proximal 6 cm of the fistula which resolved with angioplasty. The arterial anastomosis itself appeared to be adequate. There was aneurysmal change in the mid and more proximal forearm. Then there was flow from the cephalic vein antecubital vein and then complete occlusion of the cephalic vein of the upper arm and outflow was through a pair of basilic veins in the left upper arm. There was then good central venous outflow. Impression: Successfully treated left forearm AV fistula although difficult to maneuver to the true lumen. I would anticipate next intervention likely using at least an 8 x 4 conquest balloon at the area of proximal fistula venous stenosis. Anibal Andrews M.D., F.A.C.S. Surgeon: Anibal Andrews Type of Anesthesia: IV Sedation and Local
== END 2021-03-15 13:17 | disposition home or self-care (01) ==
LOC: CLSP 09:57
PROVIDERS: PCP Family Medicine; Referring Provider Surgery; Visit Provider Surgery
DX: T82.858A Stenosis of other vascular prosthetic devices, implants and grafts, initial encounter (principal); H40.9 Unspecified glaucoma; I25.2 Old myocardial infarction; I25.10 Atherosclerotic heart disease of native coronary artery without angina pectoris; I12.0 Hypertensive chronic kidney disease with stage 5 chronic kidney disease or end stage renal disease; E10.22 Type 1 diabetes mellitus with diabetic chronic kidney disease; N18.6 End stage renal disease; D63.8 Anemia in other chronic diseases classified elsewhere; E78.5 Hyperlipidemia, unspecified; Z95.5 Presence of coronary angioplasty implant and graft; Z79.02 Long term (current) use of antithrombotics/antiplatelets; Z79.82 Long term (current) use of aspirin; Z99.2 Dependence on renal dialysis; Z79.4 Long term (current) use of insulin; Z79.899 Other long term (current) drug therapy
CPT/HCPCS: 36902; 76937; 99152; 99153; Q9967; C1725; C1769

== ENCOUNTER 2021-09-07 08:43 | Emergency (ER) | payer MEDICARE, MEDICAID, SELFPAY ==
[2021-09-07 08:44] VITALS: BP 166/107; PULSE 64; RESP 20; TEMP 36.6; O2SAT 98; BMI 20.3
[2021-09-07 08:56] LABS: Bedside Glucose 132 mg/dL (74-106)
--- NOTE | 2021-09-07 10:11 | EX.ED.DYSGE1 ---
HPI History of Present Illness Chief Complaint: Hypoglycemia Informant: patient Narrative Narrative: Patient woke up feeling confused and shaky this morning. His cousin called EMS, they came and checked his blood pressure which was elevated again his blood sugar which was 50. He did not want to be transferred by squad so his cousin brought him, and his cousin gave him some Dr. Enrique. Upon arrival here he is blood sugars in the 120s and he feels back to normal. As a result of this episode he missed dialysis. He already called, they rescheduled him for tomorrow. He has been weighing himself and keeping track, he is right around his dry weight and does not feel fluid overloaded or short of breath. He has a stent but no congestive heart failure. No swelling in his lower extremities. Last night he did not feel well, he vomited and did not eat dinner. He still took his insulin as usual however. [facility] Medical History Acute on chronic anemia Anemia due to chronic kidney disease Atherosclerotic heart disease of [place] coronary artery without angina pectoris Benign essential hypertension Cellulitis of right foot Chronic kidney disease Delayed wound healing Depression Diabetes Diabetes mellitus type 1 Diabetes mellitus with neuropathy Diabetic foot infection Diabetic neuropathy Dialysis patient DM type 1 causing renal disease ESRD (end stage renal disease) on dialysis Glaucoma History of iron deficiency HTN (hypertension) Hyperlipidemia Hypomagnesemia Hyponatremia Kidney disease Malnutrition Microcytic anemia Non-smoker NSTEMI (non-ST elevated myocardial infarction) Peripheral vascular disease Syncope and collapse Ulcer of right foot with fat layer exposed Home Medications hydralazine 100 mg PO TID 07/06/17 [History Last Taken 03/15/21] latanoprost 1 drp EACH EYE QHS 07/06/17 [History Last Taken 01/29/21] metoprolol tartrate 25 mg PO QHS 07/06/17 [History Last Taken 01/29/21] sevelamer carbonate [Renvela] 1,600 mg PO TIDCM 07/06/17 [History Last Taken 10/17/18] minoxidil 2.5 mg PO DAILY 10/18/18 [History Last Taken 01/29/21] acetaminophen 650 mg PO Q6H PRN PRN tab 10/20/18 [Rx Last Taken Unknown] aspirin 81 mg PO DAILY@0800 tab 10/20/18 [Rx Last Taken 01/29/21] atorvastatin 40 mg PO QHS #30 tab 10/20/18 [Rx Last Taken 01/29/21] losartan 50 mg PO DAILY #30 tab 10/20/18 [Rx Last Taken 01/29/21] clopidogrel 75 mg PO DAILY 04/08/19 [History Last Taken 01/29/21] insulin detemir U-100 8 unit SC QHS #0 ml 01/31/21 [Rx Last Taken 01/29/21] insulin detemir U-100 10 units SC DAILY #0 ml 01/31/21 [Rx Last Taken 01/29/21] Allergy/AdvReac Type Severity Reaction Status Date / Time calcium [From PhosLo] Allergy Hives Verified 09/07/21 08:46 Family History Sister Heart disease Uncle Colon cancer Surgical History Presence of surgically created primary arteriovenous shunt for hemodialysis Status post peripheral artery angioplasty Status post transmetatarsal amputation of right foot Stented coronary artery (10/19/18) Social History household members: family Smoking Status: Never smoker alcohol intake: never substance use type: does not use ROS ROS ED Constitutional Constitutional ED: Denies chills or fever(s) Eyes Eyes: Denies change in vision or diplopia ENT ENT ED: Denies rhinorrhea or sore throat Cardiovascular Cardiovascular: Denies chest pain or palpitations Respiratory/Chest Respiratory/Chest: Denies cough or dyspnea Gastrointestinal Gastrointestinal: Reports vomiting and other Details: No more nausea or vomiting today, vomited last night ; Denies abdominal pain, diarrhea or nausea Genitourinary Genitourinary ED: Denies dysuria or hematuria Musculoskeletal Musculoskeletal: Denies back pain or neck pain Integumentary Denies abscess or rash Neurologic Neurologic: Denies headache(s), paresthesias or weakness Psychiatric Psychiatric: Denies anxiety or suicidal thoughts EXAM Physical Exam Const Vital Signs: 09/07/21 08:44 09/07/21 09:41 Temperature 97.9 F Temperature Source Temporal Pulse Rate 64 Respiratory Rate 20 H Respiratory Effort Normal Non-Labored Respiratory Pattern Normal Blood Pressure 166/107 H Blood Pressure Mean 126 Pulse Ox 98 Oxygen Delivery Method Room Air Positive well nourished and well developed General Appearance ED: well developed and NAD HEENT Reports moist mucous membranes normocephalic and atraumatic Eyes PERRL and EOMs intact bilaterally Neck full ROM and supple Resp normal respiratory effort and clear to auscultation bilaterally Cardio regular rate, regular rhythm and no murmurs GI non-tender and non-distended Auscultation: normoactive bowel sounds Palpation: soft Back/Spine no CVA tenderness General Back: other FROM Extremity normal to inspection and no pedal edema Extremity Narrative: Brace left foot General Extremety ED: Negative for edema, pulses abnormal or tenderness General Extremity: Negative for edema or pulses abnormal Neuro oriented x3, CN's II-XII intact bilaterally and no sensory deficits noted Sensorium / Orientation: awake and alert Motor Exam: strength 5/5 throughout Skin no rashes or lesions noted and no wounds MDM MDM MDM Narrative Medical decision making narrative: His blood pressure now is 166/107. I do not feel this needs emergently treated and can be followed as an outpatient. He is asymptomatic and has a normal exam. His blood sugar is stable and he was given something to eat. I did an EKG and shows peaked T waves but no other signs of hyperkalemia. Therefore I did a chemistry panel, his potassium is normal and his peaked T waves are probably due to his asthenic build. Stable for discharge discussed reasons to return, he will follow-up for dialysis as scheduled tomorrow and again on Friday. Lab Data Attestation: I reviewed the patient's lab results. Labs: Laboratory Results - last 24 hr 09/07/21 09/07/21 09/07/21 08:51 10:12 10:45 Sodium Potassium Chloride Carbon Dioxide Anion Gap BUN Creatinine Estim Creat Clear Calc Est GFR (MDRD) Af Amer Est GFR (MDRD) Non-Af BUN/Creatinine Ratio Glucose Calcium POC Glucose 132 H 95 106 09/07/21 10:55 Sodium 136 Potassium 4.3 Chloride 98 Carbon Dioxide 29.0 Anion Gap 9 BUN 50 H Creatinine 8.09 H* Estim Creat Clear Calc 10.16 Est GFR (MDRD) Af Amer 9 L Est GFR (MDRD) Non-Af 7 L BUN/Creatinine Ratio 6.2 L Glucose 100 Calcium 9.1 POC Glucose EKG Initial EKG: Attestation: I personally reviewed and interpreted this EKG as follows: Interpretation: Sinus Rhythm and No Acute Injury Pattern Comments: Peaked T waves Discharge Plan Triage Chief Complaint: Hypoglycemia ED Provider: Juan J Jj Dx/Rx/DC Orders Clinical Impression: Hypoglycemia due to type 1 diabetes mellitus, ESRD (end stage renal disease) on dialysis Instructions: ED Diabetic Insulin Reaction Prescriptions: No Action latanoprost 1 DROP bottle 1 drp EACH EYE QHS RF: 0 hydralazine 100 MG tablet 100 mg PO TID RF: 0 metoprolol tartrate 25 MG tablet 25 mg PO QHS RF: 0 sevelamer carbonate [Renvela] 800 MG tablet 1,600 mg PO TIDCM RF: 0 minoxidil 2.5 MG tablet 2.5 mg PO DAILY RF: 0 losartan 50 MG tablet 50 mg PO DAILY Qty: 30 RF: 0 acetaminophen 325 MG tablet 650 mg PO Q6H PRN PRN (Reason: Mild pain 1-3/Temp > 100.7 F) RF: 0 aspirin 81 MG tablet 81 mg PO DAILY@0800 RF: 0 atorvastatin 40 MG tablet 40 mg PO QHS Qty: 30 RF: 0 clopidogrel 75 MG tablet 75 mg PO DAILY RF: 0 insulin detemir U-100 100 UNITS/ML insulin pen 8 unit SC QHS Qty: 0 RF: 0 insulin detemir U-100 100 UNITS/ML insulin pen 10 units SC DAILY Qty: 0 RF: 0 Primary Care Provider: Peter Coronado Referrals: Peter Coronado MD [Primary Care Provider] - As Needed Disposition Disposition: Home, Self Care
--- NOTE | 2021-09-07 10:13 | EKG12_ITS ---
Test Reason : HYPOGLYCEMIC Blood Pressure : / mmHG Vent. Rate : 064 BPM Atrial Rate : 064 BPM P-R Int : 180 ms QRS Dur : 084 ms QT Int : 478 ms P-R-T Axes : 047 -07 048 degrees QTc Int : 493 ms Normal sinus rhythm Prolonged QT Septal AL, age undetermined, cannot be excluded Abnormal ECG Confirmed by KAILA MENDEZ, PRAVEENA ([id number]), features editor URSULA TREJO ([id number]) on 09/11/2021 11:20:02 AM Referred By: GAL Confirmed By:PRAVEENA BRIGHT MD
[2021-09-07 10:16] LABS: Bedside Glucose 95 mg/dL (74-106)
[2021-09-07 10:50] LABS: Bedside Glucose 106 mg/dL (74-106)
[2021-09-07 11:34] LABS: Anion Gap 9 (5-15); BUN 50 mg/dL (7-18); BUN/Creat Ratio 6.2 RATIO (10-20); Calcium,Total 9.1 mg/dL (8.5-10.1); Chloride 98 mmol/L (98-107); Creatinine, Serum 8.09 mg/dL (0.70-1.30); EST Glomerular Filtration Rate 7 mL/min (>60); Est Glom Filt Rate - Afr Amer 9 mL/min (>60); Estimated Creatinine Clearance 10.16 ml/min; Glucose 100 mg/dL (74-106); Potassium 4.3 mmol/L (3.5-5.1); Sodium Level 136 mmol/L (136-145)
[2021-09-07 11:58] VITALS: BP 143/71; PULSE 62; RESP 15; O2SAT 96
--- NOTE | 2021-09-12 11:02 | CM.ED ---
ER RNCM DC F/u Call: Seen in ER 09/07/21 for Hypoglycemia. Has a h/o DM1 on Insulin, ESRD on HD. Per MD note- patient vomited at HS and did not eat but took insulin and blood sugar was 50 when checked, BIB cousin. Seen today 09.12.21 in ER for knee pain and fall to ground while at work- was Dc'd home. Called patient's listed cell phone number, no answer. VM did not identify correct patient and therefore no VM was left. Shanita Montalvo RNCM
== END 2021-09-07 12:00 | disposition home or self-care (01) ==
PROVIDERS: Emergency Provider Emergency Medicine; PCP Family Medicine; Visit Provider Emergency Medicine
DX: E10.649 Type 1 diabetes mellitus with hypoglycemia without coma (principal); E10.51 Type 1 diabetes mellitus with diabetic peripheral angiopathy without gangrene; Z99.2 Dependence on renal dialysis; E10.22 Type 1 diabetes mellitus with diabetic chronic kidney disease; E10.40 Type 1 diabetes mellitus with diabetic neuropathy, unspecified; I12.0 Hypertensive chronic kidney disease with stage 5 chronic kidney disease or end stage renal disease; N18.6 End stage renal disease; Z79.4 Long term (current) use of insulin; I25.10 Atherosclerotic heart disease of native coronary artery without angina pectoris; E78.5 Hyperlipidemia, unspecified; Z79.899 Other long term (current) drug therapy
CPT/HCPCS: 80048; 82962; 93005; 99282

== ENCOUNTER 2021-09-12 01:11 | Emergency (ER) | payer OTHER, MEDICARE, MEDICAID, SELFPAY ==
[2021-09-12 01:12] VITALS: BP 212/160; PULSE 92; RESP 18; TEMP 37.1; O2SAT 100; BMI 17.6
[2021-09-12 01:21] VITALS: BP 222/126
--- NOTE | 2021-09-12 01:23 | RAD_ITS ---
INDICATION: pain EXAMINATION/TECHNIQUE: X-RAY - XR Knee 3 Views 3 IMAGES COMPARISON: None. LIMITATIONS: None. FINDINGS: BONES: No fracture demonstrated. Mild degenerative changes mainly at the patellofemoral joint space. JOINTS: No dislocation. SOFT TISSUES: Unremarkable. Arterial calcifications. IMPRESSION: No acute findings. Mild degenerative changes. Electronically Signed: Macarena Melton MD at 1:55 EDT , RAD/Knee 3 Views
[2021-09-12] MEDS: Orphenadrine 60 MG/2 ML Ampul IM (01:29)
[2021-09-12] MEDS: morphine 10 MG/ML Syringe IM (01:29)
[2021-09-12] MEDS: Ondansetron ODT 4 MG Tablet PO (01:29)
--- NOTE | 2021-09-12 02:00 | EDS_ITS ---
HPI History of Present Illness Chief Complaint: Lower Extremity Injury Narrative Narrative: Patient is a 51-year-old male with past medical history of hammertoe which led to osteomyelitis and amputation. 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 He states he did fall to the ground but denies striking his head or any loss of consciousness. He states that he was not on the ground for long as there was someone who came along to help him. He reports pain in his right knee with difficulty moving it secondary to the pain and therefore presents for evaluation. [facility] Medical History Acute on chronic anemia Anemia due to chronic kidney disease Atherosclerotic heart disease of [place] coronary artery without angina pectoris Benign essential hypertension Cellulitis of right foot Chronic kidney disease Delayed wound healing Depression Diabetes Diabetes mellitus type 1 Diabetes mellitus with neuropathy Diabetic foot infection Diabetic neuropathy Dialysis patient DM type 1 causing renal disease ESRD (end stage renal disease) on dialysis Glaucoma History of iron deficiency HTN (hypertension) Hyperlipidemia Hypomagnesemia Hyponatremia Kidney disease Malnutrition Microcytic anemia Non-smoker NSTEMI (non-ST elevated myocardial infarction) Peripheral vascular disease Syncope and collapse Ulcer of right foot with fat layer exposed Home Medications hydralazine 100 mg PO TID 07/06/17 [History Last Taken 03/15/21] latanoprost 1 drp EACH EYE QHS 07/06/17 [History Last Taken 01/29/21] metoprolol tartrate 25 mg PO QHS 07/06/17 [History Last Taken 01/29/21] sevelamer carbonate [Renvela] 1,600 mg PO TIDCM 07/06/17 [History Last Taken 10/17/18] minoxidil 2.5 mg PO DAILY 10/18/18 [History Last Taken 01/29/21] acetaminophen 650 mg PO Q6H PRN PRN tab 10/20/18 [Rx Last Taken Unknown] aspirin 81 mg PO DAILY@0800 tab 10/20/18 [Rx Last Taken 01/29/21] atorvastatin 40 mg PO QHS #30 tab 10/20/18 [Rx Last Taken 01/29/21] losartan 50 mg PO DAILY #30 tab 10/20/18 [Rx Last Taken 01/29/21] clopidogrel 75 mg PO DAILY 04/08/19 [History Last Taken 01/29/21] insulin detemir U-100 8 unit SC QHS #0 ml 01/31/21 [Rx Last Taken 01/29/21] insulin detemir U-100 10 units SC DAILY #0 ml 01/31/21 [Rx Last Taken 01/29/21] methocarbamol 500 mg PO 4X/DAY PRN PRN #40 tab 09/12/21 [Rx Last Taken Unknown] Allergy/AdvReac Type Severity Reaction Status Date / Time calcium [From PhosLo] Allergy Hives Verified 09/12/21 01:20 Family History Sister Heart disease Uncle Colon cancer Surgical History Presence of surgically created primary arteriovenous shunt for hemodialysis Status post peripheral artery angioplasty Status post transmetatarsal amputation of right foot Stented coronary artery (10/19/18) Social History household members: family Smoking Status: Never smoker alcohol intake: never substance use type: does not use ROS ROS ED Constitutional Constitutional ED: Denies chills or fever(s) ENT ENT ED: Denies sore throat Cardiovascular Cardiovascular: Denies chest pain Respiratory/Chest Respiratory/Chest: Denies cough or dyspnea Gastrointestinal Gastrointestinal: Denies abdominal pain, diarrhea, nausea or vomiting Genitourinary Genitourinary ED: Denies dysuria Musculoskeletal Musculoskeletal: Reports other Details: Positive right knee pain ; Denies back pain or myalgias Integumentary Denies Abrasions or rash Neurologic Neurologic: Denies headache(s) EXAM Physical Exam Const Vital Signs: 09/12/21 01:12 09/12/21 01:21 Temperature 98.8 F Temperature Source Temporal Pulse Rate 92 Respiratory Rate 18 Blood Pressure 212/160 H 222/126 H Blood Pressure Mean 177 158 Pulse Ox 100 Oxygen Delivery Method Room Air Positive well nourished and well developed General Appearance ED: well developed Eyes PERRL and EOMs intact bilaterally Neck supple Resp normal respiratory effort and clear to auscultation bilaterally Cardio regular rate and regular rhythm Extremity Extremity Narrative: Right lower extremity is neurovascularly intact. There is no obvious bony deformity or joint effusion noted. The patient has pain with palpation across the right knee diffusely but greatest over top the distal vastus lateralis region. The Achilles tendon is intact the knee ligaments appea r stable. No overlying erythema or warmth to suggest infection. No lymphangitic streaking. Patient does have chronic changes to the right foot secondary to his history of amputation from osteomyelitis. Neuro oriented x3 and CN's II-XII intact bilaterally Sensorium / Orientation: alert Psych mental status grossly normal Skin no rashes or lesions noted MDM MDM MDM Narrative Medical decision making narrative: Patient presented to the ER hypertensive but otherwise with stable vital. He reported his knee gave out while he was pushing his cart at work. He did not have any obvious bony deformity joint effusion or ligamentous laxity. However with the report of fall and pain an x- ray was obtained. I do not feel the need for head CT as patient had a mechanical fall and did not strike his head or have loss of consciousness. The x-ray revealed degenerative changes without acute fracture or dislocation or joint effusion. By exam he does not have any warmth or redness to suggest infection either or signs to say he has a septic joint. At this time I feel patient has a knee sprain as he has more pain with motion and there is no obvious bony deformity present. After treatment he did report feeling better and therefore this time he will be given symptomatic medications and is otherwise safe for discharge and can follow-up with Workmen's Comp. on an outpatient basis Radiography Diagnostic Testing: Clinical Impression(s) from Imaging Studies Knee X-Ray 09/12/21 01:23 Discharge Plan Triage Chief Complaint: Lower Extremity Injury ED Provider: Omar Sheth Dx/Rx/DC Orders Clinical Impression: Right knee sprain Instructions: ED Knee Pain of Uncertain Cause, ED Knee Sprain Prescriptions: New methocarbamol 500 mg tablet 500 mg PO 4X/DAY PRN PRN (Reason: Muscle pain/spasm) Qty: 40 RF: 0 No Action latanoprost 1 DROP bottle 1 drp EACH EYE QHS RF: 0 hydralazine 100 MG tablet 100 mg PO TID RF: 0 metoprolol tartrate 25 MG tablet 25 mg PO QHS RF: 0 sevelamer carbonate [Renvela] 800 MG tablet 1,600 mg PO TIDCM RF: 0 minoxidil 2.5 MG tablet 2.5 mg PO DAILY RF: 0 losartan 50 MG tablet 50 mg PO DAILY Qty: 30 RF: 0 acetaminophen 325 MG tablet 650 mg PO Q6H PRN PRN (Reason: Mild pain 1-3/Temp > 100.7 F) RF: 0 aspirin 81 MG tablet 81 mg PO DAILY@0800 RF: 0 atorvastatin 40 MG tablet 40 mg PO QHS Qty: 30 RF: 0 clopidogrel 75 MG tablet 75 mg PO DAILY RF: 0 insulin detemir U-100 100 UNITS/ML insulin pen 8 unit SC QHS Qty: 0 RF: 0 insulin detemir U-100 100 UNITS/ML insulin pen 10 units SC DAILY Qty: 0 RF: 0 Primary Care Provider: Peter Coronado Referrals: Peter Coronado MD [Primary Care Provider] - Disposition Disposition: Home, Self Care
[2021-09-12 03:52] VITALS: PULSE 89; RESP 17; O2SAT 98
== END 2021-09-12 04:03 | disposition home or self-care (01) ==
PROVIDERS: Emergency Provider Emergency Medicine; PCP Family Medicine; Visit Provider Emergency Medicine
DX: S83.91XA Sprain of unspecified site of right knee, initial encounter (principal); I25.10 Atherosclerotic heart disease of native coronary artery without angina pectoris; I25.2 Old myocardial infarction; Z95.5 Presence of coronary angioplasty implant and graft; W19.XXXA Unspecified fall, initial encounter
CPT/HCPCS: 73562; 96372; 99283

== ENCOUNTER 2021-09-17 05:31 | Observation (INO) | payer MEDICARE, MEDICAID, SELFPAY ==
[2021-09-17] VITALS (8 sets, daily range): BP systolic 156–230; BP diastolic 76–116; PULSE 61–77; RESP 14–18; TEMP 36.4–36.7; O2SAT 98–100; BMI 19.2; BMI 18.1
--- NOTE | 2021-09-17 05:47 | EKG12_ITS ---
Test Reason : DYSRYTHMIA Blood Pressure : / mmHG Vent. Rate : 059 BPM Atrial Rate : 059 BPM P-R Int : 176 ms QRS Dur : 082 ms QT Int : 500 ms P-R-T Axes : 012 000 038 degrees QTc Int : 495 ms Sinus bradycardia Septal infarct , age undetermined Abnormal ECG Prominent (Peaked) T- wave: Consider Hyperkalemia Confirmed by KAILA MENDEZ, PRAVEENA ([id number]), social media editor KERRI CONNOLLY ([id number]) on 09/19/2021 11:32:17 AM Referred By: JOSE Confirmed By:PRAVEENA BRIGHT MD
--- NOTE | 2021-09-17 05:49 | EX.ED.DYSGE1 ---
HPI History of Present Illness Chief Complaint: Hypoglycemia Narrative Narrative: Patient presents with hypoglycemia. He is due to have dialysis in 15 minutes but he called paramedics who found his blood sugar to be in the 40s. He missed dialysis on Friday, it is now Friday morning and he feels short of breath and has some generalized weakness. He has no abdominal pain. No recent fevers or chills. [facility] Medical History Acute on chronic anemia Anemia due to chronic kidney disease Atherosclerotic heart disease of [place] coronary artery without angina pectoris Benign essential hypertension Cellulitis of right foot Chronic kidney disease Delayed wound healing Depression Diabetes Diabetes mellitus type 1 Diabetes mellitus with neuropathy Diabetic foot infection Diabetic neuropathy Dialysis patient DM type 1 causing renal disease ESRD (end stage renal disease) on dialysis Glaucoma History of iron deficiency HTN (hypertension) Hyperlipidemia Hypomagnesemia Hyponatremia Kidney disease Malnutrition Microcytic anemia Non-smoker NSTEMI (non-ST elevated myocardial infarction) Peripheral vascular disease Syncope and collapse Ulcer of right foot with fat layer exposed Home Medications hydralazine 100 mg PO TID 07/06/17 [History Last Taken 03/15/21] latanoprost 1 drp EACH EYE QHS 07/06/17 [History Last Taken 01/29/21] metoprolol tartrate 25 mg PO QHS 07/06/17 [History Last Taken 01/29/21] sevelamer carbonate [Renvela] 1,600 mg PO TIDCM 07/06/17 [History Last Taken 10/17/18] minoxidil 2.5 mg PO DAILY 10/18/18 [History Last Taken 01/29/21] acetaminophen 650 mg PO Q6H PRN PRN tab 10/20/18 [Rx Last Taken Unknown] aspirin 81 mg PO DAILY@0800 tab 10/20/18 [Rx Last Taken 01/29/21] atorvastatin 40 mg PO QHS #30 tab 10/20/18 [Rx Last Taken 01/29/21] losartan 50 mg PO DAILY #30 tab 10/20/18 [Rx Last Taken 01/29/21] clopidogrel 75 mg PO DAILY 04/08/19 [History Last Taken 01/29/21] insulin detemir U-100 8 unit SC QHS #0 ml 01/31/21 [Rx Last Taken 01/29/21] insulin detemir U-100 10 units SC DAILY #0 ml 01/31/21 [Rx Last Taken 01/29/21] methocarbamol 500 mg PO 4X/DAY PRN PRN #40 tab 09/12/21 [Rx Last Taken Unknown] Allergy/AdvReac Type Severity Reaction Status Date / Time calcium [From PhosLo] Allergy Hives Verified 09/17/21 05:35 Family History Sister Heart disease Uncle Colon cancer Surgical History Presence of surgically created primary arteriovenous shunt for hemodialysis Status post peripheral artery angioplasty Status post transmetatarsal amputation of right foot Stented coronary artery (10/19/18) Social History household members: family Smoking Status: Never smoker alcohol intake: never substance use type: does not use ROS ROS ED ROS Narrative Past medical history: Reviewed, it is quite extensive, includes end-stage renal disease on dialysis, heart disease status post PTCA, hyperlipidemia, hypertension, and anemia, neuropathy and others which I reviewed in the EMR Medications: Reviewed Social history: Noncontributory Review of systems: All systems negative except as indicated General: No fever. Generalized weakness Eyes: No visual changes ENT: No upper airway congestion, normal voice Neck: No neck pain Cardiovascular: No chest pain Respiratory: Some shortness of breath Gastrointestinal: No abdominal pain, nausea vomiting or diarrhea Genitourinary: No dysuria Musculoskeletal: Denies myalgias no difficulty with ambulation Skin: No rash Neurological: No memory loss, confusion or any focal weakness Psych: No recent behavioral changes Hematologic: No easy bleeding or easy bruising EXAM Physical Exam Narrative Exam Narrative: Physical exam General: Patient appears chronically ill but does not appear in significant distress Head: Normocephalic, Atraumatic Eyes: Conjunctiva not pale ENT: Moist mucous membranes Neck: Supple, Nontender, No lymphadenopathy Cardiovascular: Regular rate, Regular rhythm Respiratory: He is not in any respiratory distress with a normal pulse ox but he does have by lateral coarse breath sounds Abdomen: Soft, Nontender, Nondistended Back: Nontender, Normal Inspection. Negative for: CVA tenderness Extremities: Some lower extremity edema. Left arm shows a fistula with a palpable thrill Skin: Normal color, No rash Neurological: Alert, Normal Strength, Normal Sensation Psychological: Normal affect Const Vital Signs: 09/17/21 05:32 09/17/21 05:34 09/17/21 06:15 Temperature 97.8 F Temperature Source Oral Pulse Rate 61 62 Respiratory Rate 18 14 Respiratory Effort Normal Non-Labored Respiratory Pattern Normal Normal Blood Pressure 230/116 H Blood Pressure Mean 154 Pulse Ox 100 Oxygen Delivery Method Room Air MDM MDM MDM Narrative Medical decision making narrative: Patient now tells me he has not had dialysis since last Friday, he has quite peaked T waves, I will stabilize his membranes. He is hypertensive and I will give him antihypertensives. I discussed with nephrology, he will need dialysis, I will admit him for this. Lab Data Labs: Laboratory Results - last 24 hr 09/17/21 06:00 WBC 4.5 RBC 4.61 Hgb 10.9 L Hct 34.7 L MCV 75.3 L MCH 23.6 L MCHC 31.4 L RDW Std Deviation 46.1 H RDW Coeff of Edda 18.3 H Plt Count 138 L MPV 9.3 Immature Gran % (Auto) 0.400 Neut % (Auto) 69.4 Lymph % (Auto) 15.2 L [place] % (Auto) 8.6 Eos % (Auto) 5.7 H Baso % (Auto) 0.7 Absolute Neuts (auto) 3.1 Absolute Lymphs (auto) 0.69 L Nucleated RBC % 0 EKG Initial EKG: Comments: Sinus rhythm with a rate of 59. Normal DE. Prolonged QTC at 495. Peaked T waves especially in the precordial leads. Discharge Plan Triage Chief Complaint: Hypoglycemia ED Provider: Harman Ayala Dx/Rx/DC Orders Clinical Impression: Hypoglycemia, End stage renal disease on dialysis, Acute hyperkalemia Prescriptions: No Action latanoprost 1 DROP bottle 1 drp EACH EYE QHS RF: 0 hydralazine 100 MG tablet 100 mg PO TID RF: 0 metoprolol tartrate 25 MG tablet 25 mg PO QHS RF: 0 sevelamer carbonate [Renvela] 800 MG tablet 1,600 mg PO TIDCM RF: 0 minoxidil 2.5 MG tablet 2.5 mg PO DAILY RF: 0 losartan 50 MG tablet 50 mg PO DAILY Qty: 30 RF: 0 acetaminophen 325 MG tablet 650 mg PO Q6H PRN PRN (Reason: Mild pain 1-3/Temp > 100.7 F) RF: 0 aspirin 81 MG tablet 81 mg PO DAILY@0800 RF: 0 atorvastatin 40 MG tablet 40 mg PO QHS Qty: 30 RF: 0 clopidogrel 75 MG tablet 75 mg PO DAILY RF: 0 insulin detemir U-100 100 UNITS/ML insulin pen 8 unit SC QHS Qty: 0 RF: 0 insulin detemir U-100 100 UNITS/ML insulin pen 10 units SC DAILY Qty: 0 RF: 0 methocarbamol 500 mg tablet 500 mg PO 4X/DAY PRN PRN (Reason: Muscle pain/spasm) Qty: 40 RF: 0 Primary Care Provider: Peter Coronado Referrals: Peter Coronado MD [Primary Care Provider] - Disposition Disposition: Acute Care Hospital [facility]
[2021-09-17 06:07] LABS: Absolute Lymphocyte Count 0.69 X10^3/uL (0.83-4.51); Absolute Neutrophil Count 3.1 X10^3/uL (2.0-7.7); Basophil# 0.03 X10^3/uL; Basophil% 0.7 % (0-1); Eosinophil# 0.26 X10^3/uL; Eosinophils% 5.7 % (0-5); Hematocrit 34.7 % (40-54); Hemoglobin 10.9 g/dL (13.0-16.5); Lymphocyte # 0.69 X10^3/ul (0.83-4.51); Lymphocyte % 15.2 % (19-41); Mean Corp Hgb Conc 31.4 g/dL (32-36); Mean Corpuscular Hgb 23.6 pg (27.0-32.0); Mean Corpuscular Volume 75.3 fL (80-94); Mean Platelet Vol. 9.3 fl (6.2-12.0); Monocyte# 0.39 X10^3/uL; Monocyte% 8.6 % (0-10); NRBC Flagged by Analyzer 0 % (0-5); Neutrophil # 3.14 X10^3/uL (2.7-7.7); Neutrophil % 69.4 % (47-70); Platelet Count 138 K/mm3 (150-450); RBC Distribution Width CV 18.3 % (11.6-14.6); RBC Distribution Width SD 46.1 fl (35.1-43.9); Red Blood Count 4.61 M/mm3 (4.6-6.2); White Blood Count 4.5 K/mm3 (4.4-11.0)
[2021-09-17] MEDS: Calcium Gluconate IV 3 GM in Syringe 1 EACH IV (06:11)
[2021-09-17] MEDS: Labetalol (Prefilled) 20 MG/4 ML 10 MG IV (06:34)
--- NOTE | 2021-09-17 06:35 | HP.PCM.HOS_ITS ---
HPI - General General Date of Admission: 09/17/21 Date of Service: 09/17/21 Chief Complaint: Missed HD, low BS at home, nausea. HPI Narrative The patient is a 51 y/o M w/ PMHx: ESRD on HD, HTN, HLD, Diabetes mellitus type I with neuropathy, Chronic anemia/AOCD, CAD s/p PCI x 2018, recent ED evaluation 09/13/21 secondary to his R knee giving out at work with workers comp evaluation with diagnosis knee sprain noting that he has been able to walk on it but secondary to knee pain has failed to present to HD (Following w/ Dr. Felipe) x 1 week with onset of nausea, fatigue and malaise upon awakening this am with nausea with low blood sugars at home prompting ED evaluation. Work-up in the ED included T 97.8, heart rate 61, BP 230/116, respiratory rate 18, high percent on room air, CBC with WC 4.5, hemoglobin 10.9, platelet 138 with lymphopenia, pending CMP upon evaluation. Patient has had no repeat blood sugar since ED evaluation and this is pending. Patient has been administered calcium gluconate as well as albuterol inhalation. Requested that patient be administered medication for his blood pressure and labetalol has been ordered. ED physician did discuss case with patient's nephrology team for dialysis to be set up. EKG with peaked T waves; however, these are only in leads V1-V4. [facility] Medical History Acute on chronic anemia Anemia due to chronic kidney disease Atherosclerotic heart disease of [place] coronary artery without angina pectoris Benign essential hypertension Cellulitis of right foot Chronic kidney disease Delayed wound healing Depression Diabetes Diabetes mellitus type 1 Diabetes mellitus with neuropathy Diabetic foot infection Diabetic neuropathy Dialysis patient DM type 1 causing renal disease ESRD (end stage renal disease) on dialysis Glaucoma History of iron deficiency HTN (hypertension) Hyperlipidemia Hypomagnesemia Hyponatremia Kidney disease Malnutrition Microcytic anemia Non-smoker NSTEMI (non-ST elevated myocardial infarction) Peripheral vascular disease Syncope and collapse Ulcer of right foot with fat layer exposed Home Medications hydralazine 100 mg PO TID 07/06/17 [History Last Taken 03/15/21] latanoprost 1 drp EACH EYE QHS 07/06/17 [History Last Taken 01/29/21] metoprolol tartrate 25 mg PO QHS 07/06/17 [History Last Taken 01/29/21] sevelamer carbonate [Renvela] 1,600 mg PO TIDCM 07/06/17 [History Last Taken 10/17/18] minoxidil 2.5 mg PO DAILY 10/18/18 [History Last Taken 01/29/21] acetaminophen 650 mg PO Q6H PRN PRN tab 10/20/18 [Rx Last Taken Unknown] aspirin 81 mg PO DAILY@0800 tab 10/20/18 [Rx Last Taken 01/29/21] atorvastatin 40 mg PO QHS #30 tab 10/20/18 [Rx Last Taken 01/29/21] losartan 50 mg PO DAILY #30 tab 10/20/18 [Rx Last Taken 01/29/21] clopidogrel 75 mg PO DAILY 04/08/19 [History Last Taken 01/29/21] insulin detemir U-100 8 unit SC QHS #0 ml 01/31/21 [Rx Last Taken 01/29/21] insulin detemir U-100 10 units SC DAILY #0 ml 01/31/21 [Rx Last Taken 01/29/21] methocarbamol 500 mg PO 4X/DAY PRN PRN #40 tab 09/12/21 [Rx Last Taken Unknown] Allergy/AdvReac Type Severity Reaction Status Date / Time calcium [From PhosLo] Allergy Hives Verified 09/17/21 05:35 Family History Sister Heart disease Uncle Colon cancer Surgical History Presence of surgically created primary arteriovenous shunt for hemodialysis Status post peripheral artery angioplasty Status post transmetatarsal amputation of right foot Stented coronary artery (10/19/18) Social History household members: family Smoking Status: Never smoker alcohol intake: never substance use type: does not use ROS ROS Narrative Admission Review of Systems: CONSTITUTIONAL: No weight loss, fever, chills, + weakness or fatigue. HEENT: Eyes: No visual loss, blurred vision, double vision or yellow sclerae. Ears, Nose, Throat: No hearing loss, sneezing, congestion, runny nose or sore throat. SKIN: No rash or itching, lesions, wounds. CARDIOVASCULAR: No chest pain, chest pressure or chest discomfort, palpitations, edema, orthopnea, syncopal events. RESPIRATORY: No shortness of breath, cough or sputum, wheezing, hemoptysis. GASTROINTESTINAL: + Anorexia, nausea, No vomiting or diarrhea, abdominal pain, melena, BRBPR. GENITOURINARY: No dysuria, frequency, urgency or retention. NEUROLOGICAL: No headache, dizziness, syncope, paralysis, ataxia, numbness or tingling in the extremities, focal weakness, change in bowel or bladder control, seizure. MUSCULOSKELETAL: + muscle, back pain, joint pain or stiffness. HEMATOLOGIC: + anemia, bleeding or bruising. LYMPHATICS: No enlarged nodes. No history of splenectomy. PSYCHIATRIC: No history of depression or anxiety. ENDOCRINOLOGIC: No reports of sweating, cold or heat intolerance. No polyuria or polydipsia. ALLERGIES: No history of asthma, hives, eczema or rhinitis. Vital Signs Vital Signs Vital Signs: 09/17/21 05:32 09/17/21 05:34 09/17/21 06:15 Temperature 97.8 F Temperature Source Oral Pulse Rate 61 62 Respiratory Rate 18 14 Respiratory Effort Normal Non-Labored Respiratory Pattern Normal Normal Blood Pressure 230/116 H Blood Pressure Mean 154 Pulse Ox 100 Oxygen Delivery Method Room Air Weight Weight: 154 lb 1.65 oz Body Mass Index (BMI) 19.2 Physical Exam Narrative Physical Examination: General: Awake, alert, oriented x 3 and cooperative, seated upright in the ED bed in no apparent distress. Skin: Normal color, normal turgor, no icterus, no cyanosis. HEENT: AT/NC, EOMI, PERRLA, mildly dry MM, no carotid bruits or JVD noted. Lungs: Diminished, > bases, appropriate effort, no rales, ronchi or wheezing. Heart: Currently regular rate and rhythm; no gallop, rub audible. Abdomen: Soft, NTTP, ND, normal BS, no HSM. Extremities: No cyanosis, clubbing, or edema, + AVF thrill. R knee w/ pain w/ ROM, no marked edema, able to bear weight. Neurological: Patient awake, alert, oriented x 3, cognitive function intact; pupils equally reactive to light and accommodation, cranial nerves II-XII grossly normal, moving all 4 extremities but limited R knee secondary to discomfort w/ sprain, no focal deficits, strength mildly to moderately globally decreased. Psychiatric: Affect appears fatigued otherwise normal, no acute evidence of depressive or anxiety feelings. Results Lab / Micro Data Result Diagrams: 09/17/21 06:00 09/17/21 06:00 Labs: Laboratory Results - last 24 hr 09/17/21 06:00: WBC 4.5, RBC 4.61, Hgb 10.9 L, Hct 34.7 L, MCV 75.3 L, MCH 23.6 L, MCHC 31.4 L, RDW Std Deviation 46.1 H, RDW Coeff of Edda 18.3 H, Plt Count 138 L, MPV 9.3, Immature Gran % (Auto) 0.400, Neut % (Auto) 69.4, Lymph % (Auto) 15.2 L, Hayes % (Auto) 8.6, Eos % (Auto) 5.7 H, Baso % (Auto) 0.7, Absolute Neuts (auto) 3.1, Absolute Lymphs (auto) 0.69 L, Nucleated RBC % 0 Assessment & Plan Assessment/Plan (1) End stage renal disease on dialysis: PLAN: The patient is a 51 y/o M w/ PMHx: ESRD on HD, HTN, HLD, Diabetes mellitus type I with neuropathy, Chronic anemia/AOCD, CAD s/p PCI x 2018, recent ED evaluation 09/13/21 secondary to his R knee giving out at work with workers comp evaluation with diagnosis knee sprain noting that he has been able to walk on it but secondary to knee pain has failed to present to HD (Following w/ Dr. Felipe) x 1 week with onset of nausea, fatigue and malaise upon awakening this am with nausea with low blood sugars at home prompting ED evaluation. #1. Diabetes mellitus type I with Reported Hypoglycemia, symptomatic: Patient with nausea, malaise and fatigue with only noted electrolyte abnormality specifically hypoglycemia with blood sugar 40 per EMS, administered dextrose amps per EMS, awaiting repeat blood sugars, will plan admission to PCU in order to obtain bed for dialysis set up per discussion with ED physician, awaiting repeat blood sugars therefore at this time will defer immediate need for any dextrose continuous supplementation however if blood sugars remain low despite treatment will initiate, will obtain mag and Phos levels Need for dialysis, maintain on fall precautions given knee discomfort. #2. Right knee pain with recent right knee sprain: Evaluated 09/13/2021 in the ED with diagnosis of right knee sprain at that time, able to ambulate but ongoing pain he notes, will request PT evaluation and continue with pain regimen and pending patient ability may consider further imaging or orthopedic surgery intervention if concerns. #3. ESRD: EKG with concern for peaked T waves, no electrolytes that requested admission timeline, administer calcium gluconate and albuterol per ED physician, ED did discuss case with patient's manager assisted living for dialysis to be initiated today, continue sevelamer 3 times daily regimen. #4. CAD: Status post PCI times 06/28/2018, will continue aspirin, Plavix, statin, metoprolol, holding losartan given unclear electrolytes at requested admission timeline, resume if appropriate. #5. Hypertension, uncontrolled: Patient with failure to take his medications recently, administered labetalol in the ED, will resume metoprolol with dose now, hold losartan given unclear electrolytes at request admission timeline, as needed IV hydralazine. #6. Hyperlipidemia: We will continue patient on statin therapy. #7. Chronic anemia/AICD: Admission hemoglobin 10.9, similar to baseline, trend. #8. DVT prophylaxis: SCDs, heparin. Charges/Coding Visit Charges OBSV E&M: 43873 Initial observation care L2
[2021-09-17 06:38] LABS: BUN 99 mg/dL (7-18); EST Glomerular Filtration Rate 4 mL/min (>60); Estimated Creatinine Clearance 6.08 ml/min; Glucose 164 mg/dL (74-106)
[2021-09-17 06:39] LABS: ALB/GLOB Ratio 0.9 RATIO (0.9-2.4); AST(SGOT) 15 U/L (15-37); Alanine Aminotransfer ALT/SGPT 25 U/L (16-61); Albumin, Serum 3.5 g/dL (3.2-5.0); Alkaline Phosphatase 75 U/L (45-117); Anion Gap 13 (5-15); BUN/Creat Ratio 7.1 RATIO (10-20); Calcium,Total 8.4 mg/dL (8.5-10.1); Chloride 98 mmol/L (98-107); Est Glom Filt Rate - Afr Amer 5 mL/min (>60); Globulin 3.7 g/dL (2.2-4.2); Potassium 4.6 mmol/L (3.5-5.1); Protein, Total 7.2 g/dL (6.4-8.2); Sodium Level 134 mmol/L (136-145)
[2021-09-17 07:15] LABS: Magnesium 3.3 mg/dL (1.6-2.6); Phosphorus 4.5 mg/dL (2.5-4.9)
--- NOTE | 2021-09-17 07:26 | RAD_ITS ---
INDICATION: sob EXAMINATION/TECHNIQUE: X-RAY - XR Chest 1 View COMPARISON: 10/23/2018 FINDINGS: LINES/DEVICES: None. LUNGS: No consolidation, edema or effusion. No pneumothorax. MEDIASTINUM AND CARDIOVASCULAR STRUCTURES: Cardiac silhouette not enlarged. Central airways and mediastinal contour are unremarkable. BONES AND SOFT TISSUES: Unremarkable. RAD/Chest 1 View (Portable) IMPRESSION: No radiographic evidence of acute cardiopulmonary disease. Electronically Signed: Trevor Horn MD at 7:38 EDT ,
[2021-09-17 07:45] LABS: Bedside Glucose 138 mg/dL (74-106)
--- NOTE | 2021-09-17 07:49 | CASEMGMT ---
Addendum entered by Rhonda Singleton 09/17/21 09:31: Pt states normally uses [facility] for transport to dialysis. Call to [facility] and they state they can still transport pt today to OP HD at 1500 and will pick pt up at [facility] main entrance at 1430, but [facility] will not be able to transport pt home from dialysis today. Pt updated on all and states he will be able to get a ride home from dialysis after full run time. Jonathan at [facility] update on all, voices understanding. Pt voices no further questions/concerns/needs. Diego SARABIA CM Addendum entered by Rhonda Singleton 09/17/21 07:59: Per Jonathan, pt could come to OP HD at [phone] Ferreira aware. CM to follow. Diego SARABIA CM Original Note: Pt has HD MWF at [facility] and per Jonathan at [facility], pt is able to come and run today at OP clinic and he will let this RN CM what chair time pt could run at. Dr. Ferreira aware. CM to follow. Diego SARABIA CM
[2021-09-17] MEDS: Losartan Potassium 50 MG Tablet PO (07:52)
[2021-09-17] MEDS: Metoprolol Tartrate 25 MG Tablet PO (07:52)
[2021-09-17] MEDS: hydrALAZINE 50 MG Tablet 100 MG PO (07:52)
[2021-09-17] MEDS: Aspirin E.C. 81 MG Tablet PO (07:52)
[2021-09-17] MEDS: SEVELAMER CARBONATE 800 MG TABLET 1600 MG PO ×2 (08:33→11:53)
[2021-09-17] MEDS: Clopidogrel Bisulfate 75 MG Tablet PO (09:21)
--- NOTE | 2021-09-17 10:18 | PCM.DC.SUM ---
Providers Date of Admission: 09/17/21 Date of Discharge: 09/17/21 Primary Care Physician: Dr. Peter Coronado MD Consultations 09/17/21 07:35 Consult: Nephrology Routine Consulting Provider: Torrie Felipe Reason for Consult: ESRD on HD, missed HD x 1 week. EMERGENT Consult: No MD Notified: Yes Date Notified: 09/17/21 Time Notified: 06:48 Method of Notification: called per ED. Reason For Visit: MISSED HD, SYMPTOMATIC HYPOGLYCEMIA (RESOLVED) Diagnosis Discharge Diagnosis (1) End stage renal disease on dialysis: Status: Acute Code(s): N18.6 - End stage renal disease; Z99.2 - Dependence on renal dialysis Medications at Discharge Home Medications hydralazine 100 mg PO TID 07/06/17 latanoprost 1 drp EACH EYE QHS 07/06/17 metoprolol tartrate 25 mg PO QHS 07/06/17 sevelamer carbonate [Renvela] 1,600 mg PO TIDCM 07/06/17 minoxidil 2.5 mg PO DAILY 10/18/18 acetaminophen 650 mg PO Q6H PRN PRN tab 10/20/18 aspirin 81 mg PO DAILY@0800 tab 10/20/18 atorvastatin 40 mg PO QHS #30 tab 10/20/18 losartan 50 mg PO DAILY #30 tab 10/20/18 clopidogrel 75 mg PO DAILY 04/08/19 insulin detemir U-100 8 unit SC QHS #0 ml 01/31/21 insulin detemir U-100 10 units SC DAILY #0 ml 01/31/21 methocarbamol 500 mg PO 4X/DAY PRN PRN #40 tab 09/12/21 Hospital Course Operations None Procedures None Summary of Care Provided Minutes Spent on Discharge: 20 Hospital Course: Mr. Chapin is a 51-year-old -Citizen Of [place] male who has end-stage renal disease and is HD dependent who presented to the emergency department this morning secondary to missing his dialysis last Friday, low blood sugars at home, and nausea. He evidently developed some knee pain and was evaluated in the ED on 09/13/2021 with a Worker's Comp. evaluation. He was diagnosed with a knee sprain and stated he was unable to walk on it and therefore did not follow-up with dialysis last Friday. He stated this morning he developed some nausea, fatigue, and malaise and reported his blood sugar was 40 at home. He therefore came to the emergency department for evaluation. His work-up in the emergency department was overall unremarkable other than a markedly elevated blood pressure at 230/116. His CBC showed a chronic anemia with a hemoglobin of 10.9 but with otherwise overall unremarkable. There is evidently some concern that he would be hyperkalemic in the emergency department he was treated with calcium gluconate and aerosolized albuterol. His chemistry panel showed a mild hyponatremia at 134, BUN of 99, serum creatinine of 13.9 and a serum glucose of 164 with repeat serum glucose at 138 later this morning. His LFTs were unremarkable. He has hypomagnesemia with a magnesium level of 3.3 and his phosphorus levels normal. There were no urgent needs for dialysis as an inpatient and we were able to contact his outpatient dialysis center and they were able to shift his dialysis schedule from first shift dialysis to second shift dialysis. He is to report to the dialysis center between 3 and 315 for a 4-hour run. They did assure us they would be able to complete his run. He is agreeable to this and transportation was arranged however he was notified he have to arrange transportation home which he states he was able to do. His blood pressure did come down to 162/90 at the time of discharge. I do suspect his blood pressure control should improve even further with dialysis later today. He was discharged to his dialysis center in stable condition on 09/17/2021. I suspect his nausea, malaise, and fatigue is related to lack of dialysis especially given his BUN being at 99. Discharge diagnoses: Uncontrolled blood pressure-improved and should improve even further with dialysis run later today Hypoglycemia-resolved -Patient has not been hypoglycemic since presentation the emergency department End-stage renal disease-HD dependent Right knee sprain DM-1 CAD Hyperlipidemia Chronic anemia secondary to renal disease Hypomagnesemia Hyponatremia History of amputation PVD Physical Exam Const alert and oriented x3 Constitutional Narrative: Thin, -Citizen Of [place] male, lying in bed, appears nontoxic, nursing at bedside General Appearance: cooperative, comfortable, well kempt and well developed Orientation / Consciousness: awake Exam Limitations: no limitations Nutritional Appearance: thin HEENT normocephalic, head/scalp atraumatic, hearing grossly normal bilaterally and moist oral mucous membranes Resp normal respiratory effort, no retractions, no use of accessory muscles and clear to auscultation bilaterally Auscultation: Negative for crackles, rales, rhonchi or wheezes Cardio regular rate, regular rhythm, S1 normal heart sound, S2 normal heart sound, no murmurs, no rub, no gallops, no clicks and no JVD GI normal to inspection, nondistended, normoactive bowel sounds, soft to palpation, non-tender and non-distended Extremity no clubbing, cyanosis or edema Extremity Narrative: Left forearm with AV fistula, palpable thrill and positive bruit on auscultation Neuro oriented x3, CN's II-XII intact bilaterally, moves all extremities and no focal motor deficits Sensorium / Orientation: awake and alert Speech: speech normal Psych affect normal Weight / BMI Weight Weight: 65.6 kg Body Mass Index (BMI) 18.1 ABG / Lab / Microbiology Data Result Diagrams: 09/17/21 06:00 09/17/21 06:00 Laboratory: Laboratory Results - last 24 hr 09/17/21 06:00: WBC 4.5, RBC 4.61, Hgb 10.9 L, Hct 34.7 L, MCV 75.3 L, MCH 23.6 L, MCHC 31.4 L, RDW Std Deviation 46.1 H, RDW Coeff of Edda 18.3 H, Plt Count 138 L, MPV 9.3, Immature Gran % (Auto) 0.400, Neut % (Auto) 69.4, Lymph % (Auto) 15.2 L, [place] % (Auto) 8.6, Eos % (Auto) 5.7 H, Baso % (Auto) 0.7, Absolute Neuts (auto) 3.1, Absolute Lymphs (auto) 0.69 L, Nucleated RBC % 0 09/17/21 06:00: Sodium 134 L, Potassium 4.6, Chloride 98, Carbon Dioxide 23.0, Anion Gap 13, BUN 99 H, Creatinine 13.90 H*, Estim Creat Clear Calc 6.08, Est GFR (MDRD) Af Amer 5 L, Est GFR (MDRD) Non-Af 4 L, BUN/Creatinine Ratio 7.1 L, Glucose 164 H, Calcium 8.4 L, Total Bilirubin 0.50, AST 15, ALT 25, Alkaline Phosphatase 75, Total Protein 7.2, Albumin 3.5, Globulin 3.7, Albumin/Globulin Ratio 0.9 09/17/21 06:00: Phosphorus 4.5, Magnesium 3.3 H 09/17/21 07:42: POC Glucose 138 H Radiography Diagnostic Testing: Radiology Impression Chest X-Ray 09/17/21 07:26 IMPRESSION: No radiographic evidence of acute cardiopulmonary disease. Electronically Signed: Trevor Horn MD at 7:38 EDT Reading Location ID and State: [facility] / [place] Tel , Service support , D/C Instructions Discharge Diet: Low fat / Low cholesterol, 1800 Calorie Control Diet and Renal Diet Discharge Activity: Return to Normal Activity Meaningful Use Info Meaningful Use Diagnoses (Choose all that apply): None applicable Discharge Plan Admission Admit Date/Time: 09/17/21 06:46 Primary Reason for Your Visit: Missed HD and hypoglycemia Attending Provider: Penny Ferreira Primary Care Provider: Peter Coronado Consulting Providers: Torrie Felipe Discharge Orders/Prescriptions Prescriptions: Continued latanoprost 1 DROP bottle 1 drp EACH EYE QHS RF: 0 hydralazine 100 MG tablet 100 mg PO TID RF: 0 metoprolol tartrate 25 MG tablet 25 mg PO QHS RF: 0 sevelamer carbonate [Renvela] 800 MG tablet 1,600 mg PO TIDCM RF: 0 minoxidil 2.5 MG tablet 2.5 mg PO DAILY RF: 0 losartan 50 MG tablet 50 mg PO DAILY Qty: 30 RF: 0 acetaminophen 325 MG tablet 650 mg PO Q6H PRN PRN (Reason: Mild pain 1-3/Temp > 100.7 F) RF: 0 aspirin 81 MG tablet 81 mg PO DAILY@0800 RF: 0 atorvastatin 40 MG tablet 40 mg PO QHS Qty: 30 RF: 0 clopidogrel 75 MG tablet 75 mg PO DAILY RF: 0 insulin detemir U-100 100 UNITS/ML insulin pen 8 unit SC QHS Qty: 0 RF: 0 insulin detemir U-100 100 UNITS/ML insulin pen 10 units SC DAILY Qty: 0 RF: 0 methocarbamol 500 mg tablet 500 mg PO 4X/DAY PRN PRN (Reason: Muscle pain/spasm) Qty: 40 RF: 0 Referrals / Follow Up: Peter Coronado MD [Primary Care Provider] - Within 1 Month Disposition Disposition (needs filled in before D/C Order can be placed): Home, Self Care Charges/Coding Visit Charges OBSV E&M: 26569 Observ/hosp same date L2
--- NOTE | 2021-09-17 11:20 | PHA.DC.MR ---
Pharmacy Service has performed discharge medication reconciliation for this patient. The patient's discharge medication list was reviewed for discrepancies and discrepancies were resolved. Home Medications hydralazine 100 mg PO TID 07/06/17 latanoprost 1 drp EACH EYE QHS 07/06/17 metoprolol tartrate 25 mg PO BID 07/06/17 sevelamer carbonate [Renvela] 1,600 mg PO TIDCM 07/06/17 minoxidil 2.5 mg PO DAILY 10/18/18 acetaminophen 650 mg PO Q6H PRN PRN tab 10/20/18 aspirin 81 mg PO DAILY@0800 tab 10/20/18 atorvastatin 40 mg PO QHS #30 tab 10/20/18 losartan 50 mg PO DAILY #30 tab 10/20/18 clopidogrel 75 mg PO DAILY 04/08/19 methocarbamol 500 mg PO 4X/DAY PRN PRN #40 tab 09/12/21 insulin detemir U-100 [Levemir FlexTouch U-100 Insuln] 10 unit SUBCUT QHS 09/17/21 insulin detemir U-100 [Levemir FlexTouch U-100 Insuln] 13 unit SUBCUT BREAKFAST 09/17/21
[2021-09-17] MEDS: Insulin Lispro 100 UNIT/ML INSULN.PEN SC (11:52)
[2021-09-17 12:01] LABS: Bedside Glucose 242 mg/dL (74-106)
== END 2021-09-17 10:22 | disposition home or self-care (01) ==
LOC: ED 06:30 → PCU 07:04
PROVIDERS: Admitting Provider Family Medicine; Emergency Provider Emergency Medicine; PCP Family Medicine; Visit Provider Internal Medicine
DX: I12.0 Hypertensive chronic kidney disease with stage 5 chronic kidney disease or end stage renal disease (principal); E10.51 Type 1 diabetes mellitus with diabetic peripheral angiopathy without gangrene; Z99.2 Dependence on renal dialysis; E10.649 Type 1 diabetes mellitus with hypoglycemia without coma; E10.40 Type 1 diabetes mellitus with diabetic neuropathy, unspecified; E10.22 Type 1 diabetes mellitus with diabetic chronic kidney disease; N18.6 End stage renal disease; Z79.4 Long term (current) use of insulin; S83.91XD Sprain of unspecified site of right knee, subsequent encounter; E78.5 Hyperlipidemia, unspecified; E83.42 Hypomagnesemia; D63.1 Anemia in chronic kidney disease; I25.10 Atherosclerotic heart disease of native coronary artery without angina pectoris; E87.1 Hypo-osmolality and hyponatremia; Z79.899 Other long term (current) drug therapy; Z79.82 Long term (current) use of aspirin; I25.2 Old myocardial infarction; X58.XXXD Exposure to other specified factors, subsequent encounter
CPT/HCPCS: 71045; 80053; 82962; 83735; 84100; 85025; 93005; 94640; 96374; 99218; 99285; A4216; G0378; J0610

== ENCOUNTER 2022-03-11 12:08 | Day surgery (SDC) | payer MEDICARE, SELFPAY ==
[2022-03-11] VITALS (9 sets, daily range): BP systolic 171–209; BP diastolic 84–118; PULSE 63–65; RESP 15–16; TEMP 36.1–36.4; O2SAT 100; BMI 19.2
--- NOTE | 2022-03-11 | COLBX_PTH ---
PATIENT: THOM PASCUAL LOC: EN U#:[id number] AGE/SX: 51/M ROOM: RE03/11/[address]: Dr. Keyshawn Carlos MD : 1970 BED: DIS: 03/11/2022 SPEC #: [id number] RECD: 03/11/22 13:52 STATUS: BIANKA PEREZ #: [id number] STACIE: 03/11/22 00:[address]: Keyshawn Carlos DEPT: SURGICAL PATHOLOGY RECD BY: Wade Ritchie ENTERED: 03/11/22 13:52 SP TYPE: COLON BX OTHR DR: Dr. Peter Coronado MD Tissues: Descending colon Procedures: Surgery Specimen Level IV HEADER OPERATION: Colonoscopy (MAC), polypectomy PRE-OP DIAGNOSIS: Screening TISSUE SUBMITTED: Descending polyp MICROSCOPIC DIAGNOSIS Descending colon polyp, biopsy: Fragments of tubular adenoma. AM:doris 03/12/2022 MICROSCOPIC DESCRIPTION Slides are reviewed. GROSS DESCRIPTION Received in fixative is one container labeled with the patient's name and designated descending polyp. The specimen consists of a solorzano-pink polyp measuring 1 x 0.5 x 0.3 cm. Multiple fragments of fecal material are also noted. The entire specimen is submitted in one cassette. / SJ:doris 03/11/2022 TC: 5 CPT: 93526
[2022-03-11] MEDS: Lactated Ringers 1,000 ML 15 ML IV (12:15)
--- NOTE | 2022-03-11 13:09 | HP.PCM_ITS ---
History and Physical Date of Admission: 03/11/22 HISTORY AND PHYSICAL ? Dipak Chapin 1970 ? REFERRING PHYSICIAN: Peter Coronado MD ? CHIEF COMPLAINT: No chief complaint on file. ? HPI: The patient is a 51 year old male referred for endoscopy. Dipak notes no colon complaints. Patient denies any change in bowel habits, weight changes, blood in stools, black tarry stools or abdominal pain. Denies family history of colon issues. The patient notes no upper GI complaints. Dipak has not undergone prior endoscopy. ? Patient's past medical history is significant for end-stage renal disease on dialysis, type I diabetes, hypertension, hyperlipidemia, NSTEMI and stent placement 7 years ago. Patient follows with Dr. Coronado in primary care for his chronic medical conditions. He has upcoming appointment scheduled to get established with [facility] cardiology for routine cardiac follow-up. ? Patient denies chest pain, shortness of breath or recent hospitalizations. Did have ED visit in September 2021 in relation to his kidney issues. Denies problems with sedation in the past. Patient has requested to have procedure completed at [facility]. ? ? PAST MEDICAL HISTORY PAST MEDICAL HISTORY Diagnosis Date ? Cellulitis ? ? right foot ? CKD (chronic kidney disease) stage 4, GFR 15-29 ml/min ([facility]) ? ? Depression 2009 ? DIABETES TYPE I W RENAL MANIF-UNCONTRLLD 01/21/2005 ? Dialysis: [facility] ? Diabetic nephropathy ([facility]) 02/22/2010 ? GLAUCOMA NOS 01/21/2005 ? Hyperlipidemia ? ? HYPERTENSION NOS 01/21/2005 ? Microcytic anemia ? ? NSTEMI (non-ST elevated myocardial infarction) ([facility]) ? ? Proteinuria 01/21/2005 ? PVD (peripheral vascular disease) ([facility]) ? ? Suicide attempt ([facility]) November 2009 ? Hosp [facility]> ? ? PAST SURGICAL HISTORY PAST SURGICAL HISTORY Procedure Laterality Date ? AMPUTATION (SPECIFY BODY PART) HX Right December 2015 ? 5 toes ? ARTHROSCOPY KNEE DIAGNOSTIC W/WO SYNOVIAL BX SPX ? 1987 ? Arthroscopy, knee ? CC PCI CORONARY INTERVENT ? 10/19/2018 ? proximal LAD ? PAST SURGICAL HISTORY OF Right 05/12/2018 ? Debridement of bone on plantar R foot ? VASECTOMY UNI/BI SPX W/POSTOP SEMEN EXAMS ? 02/14/07 ? ? ? CURRENT MEDICATIONS Current Outpatient Medications Medication Sig ? insulin detemir U-100 (LEVEMIR FLEXTOUCH U-100 INSULIN) 100 unit/mL (3 mL) injection pen 8 units in the am and 10 units in the pm ? COMBIGAN 0.2-0.5 % ophthalmic solution Instill 1 drop in both eyes twice a day ? atorvastatin (LIPITOR) 40 mg tablet Take 1 tablet by mouth daily at bedtime. For cholesterol. ? magnesium oxide (MAG-OX) 400 mg (241.3 mg magnesium) tablet Take 1 tablet by mouth twice daily. ? hydrALAZINE (APRESOLINE) 100 mg tablet Take 1 tablet by mouth three times daily. ? UNIFINE PENTIPS 31 gauge x 3/16 Use twice daily as directed for insulin ? flash glucose scanning reader (RareCyteSTYLE SADE 2 READER) Use as directed to monitor blood sugar ? flash glucose sensor (FREESTYLE SADE 2 SENSOR) kit Use as directed to monitor blood glucose ? metoprolol tartrate, short acting, (LOPRESSOR) 25 mg tablet Take 1 tablet by mouth twice daily. ? blood sugar diagnostic (TRUETEST TEST STRIPS) test strip test three times daily - dx 250.00 - insulin depentant ? timoloL maleate (TIMOPTIC) 0.5 % ophthalmic solution Use 1 Drop in both eyes twice daily. ? losartan (COZAAR) 50 mg tablet Take 1 tablet by mouth once daily. ? clopidogrel (PLAVIX) 75 mg tablet Take 1 tablet by mouth once daily. ? aspirin 81 mg chewable tablet Take 1 tablet by mouth once daily. ? sildenafil (VIAGRA) 50 mg tablet Take 1 tablet by mouth as needed. Take one hour prior to sexual activity ? latanoprost (XALATAN) 0.005 % ophthalmic solution Use 1 Drop in both eyes daily at bedtime. ? sevelamer carbonate (RENVELA) 800 mg tablet Take 1 mg by mouth three times daily. ? TRUE METRIX GLUCOSE METER misc ? ? NOVOFINE AUTOCOVER 30 gauge x 1/3 ndle ? ? Insulin Syringe-Needle U-100 (BD LO-DOSE MICRO-FINE IV) 0.3 mL 28 x 1/2 s yrg Inject 1 Each subcutaneously daily at bedtime. Inject once daily (for Lantus) Dx: Diabetes Type I with renal manifestations . 254.43 ? glucagon, human recombinant, (GLUCAGON EMERGENCY) 1 mg injection 1 mg as needed. ADMINISTER FOR LOW BLOOD SUGAR - IF UNCONSCIOUS OR UNABLE TO SWALLOW ? No current facility-administered medications for this visit. ? ? ALLERGIES: Patient has no known allergies. ? PERSONAL HISTORY: SOCIAL HISTORY Social History ? Tobacco Use ? Smoking status: Never Smoker ? Smokeless tobacco: Never Used Vaping Use ? Vaping Use: Never used Substance Use Topics ? Alcohol use: No ? Drug use: No ? FAMILY HISTORY: FAMILY HISTORY FAMILY HISTORY Problem Relation Age of Onset ? Diabetes Mother ? ? Ischemic Heart Disease Mother ? ? Alcohol/Drug Brother ? ? Hypertension Maternal Grandmother ? ? Ischemic Heart Disease Sister ? ? ? REVIEW OF SYMPTOMS: The review of systems data was entered by the nurse and reviewed by me ? Nursing Notes: Gilma Cruz 12/31/2021 9:41 AM Signed REVIEW OF SYSTEMS: General: The patient denies fatigue, denies weight loss, denies weight gain, denies feeling hot, and denies feelings of cold. Eyes: The patient NOTES glaucoma, denies eye injury/surgery, does not wear glasses or contacts. Ear/Nose/Throat: The patient denies allergies, denies hayfever, denies ear infections, and denies bloody noses. Cardiovascular: The patient denies chest pain, denies heart disease, NOTES high blood pressure,denies cardiac stent, denies prior heart attack, denies irregular heart beat, denies high cholesterol, denies poor circulation, denies heart failure, other cardiac issues, denies claudication, denies cold feet, denies peripheral arterial stent. Respiratory: The patient denies tuberculosis, denies pneumonia, denies frequent cough, denies pulmonary embolism, denies shortness of breath, and denies coughing up blood. Gastrointestinal: The patient denies difficulty swallowing, denies acid reflux, denies ulcers, denies vomiting, denies jaundice/hepatitis, denies gallbladder problems, denies black or tarry stools, denies hemorrhoids, denies bleeding from rectum, denies diverticulitis, denies constipation, denies diarrhea, denies loss of stool control, and denies hernias. Kidney/Bladder: The patient denies kidney stones,NOTES Kidney Failure, Kidney Disease denies urine infections, and denies bloody urine. Skin: The patient denies a history of skin cancer, denies bleeding/changing moles, and denies a history of skin rash. Neurologic: The patient denies a history of epilepsy/convulsions, denies headaches, denies head/spinal injuries, and denies stroke/TIA. Psychiatric: The patient denies psychiatric medications, denies depression, and denies voices, denies substance abuse. Endocrine: The patient denies thyroid disorders, NOTES diabetes, and denies hormonal problems. Hematologic: The patient denies a history of bruising, denies bleeding, and denies anemia, denies blood clots. Infections: The patient denies a history of measles and mumps, denies rheumatic fever, and denies sexually transmitted diseases. Musculoskeletal: The patient denies back pain/injury, denies back problems, denies sciatica, NOTES knee/foot trouble,Right Foot Amputated. denies arthritis, or denies gout. ? ? When was patient's last Mammogram screening? N/A ? Last Colonoscopy: None ? Gilma Cruz I have confirmed and edited as necessary, the PFSH and ROS obtained by others. Pamella Hernandez PA-C ? PHYSICAL EXAMINATION: ? General: The patient is 51 year old male, well nourished, well hydrated in no acute distress. The patient is oriented to time, place, and person. ? VITALS: Blood pressure 126/75, pulse 74, temperature 36.2 ?C (97.2 ?F), height 190.5 cm (6' 3), weight 68.9 kg (152 lb), SpO2 97 %. There is no height or weight on file to calculate BMI. ? HEENT: Normal cephalic, ataumatic, pupils are equally round, sclera are anicteric, mucous membranes are moist, oropharynx is clear. Neck has no masses, asymmetry or lymphadenopathy. ? Respiratory: Clear to auscultation and percussion. Normal respiratory excursion and pattern. ? Cardiac: Examination is regular rate and rhythm. Normal S1/S2 ? Abdominal exam: Soft, nontender, with no palpable masses. No hepatosplenomegaly. No palpable hernias. ? Extremities: no clubbing, cyanosis or edema. No adenopathy. ? LABORATORY VALUES: As Noted ? RADIOLOGIC STUDIES: As Noted ? Assessment IMPRESSION: encounter for screening colonoscopy ? PLAN: I have reviewed my findings with the surgeon. Will plan for lower endoscopy. We discussed the risks and benefits of the planned endoscopy. I have informed the patient that complications can occur including failure to complete the endoscopy and perforation. The patient had the opportunity to ask questions concerning the planned endoscopy. My staff has also explained the procedure to the patient in understandable terms and has given the patient printed material concerning the procedure. The patient freely consents to surgery. ? I plan to use Golytely bowel preparation ? Patient instructed to contact PCP for instructions regarding diabetic medication, which may require adjustment during bowel preparation and/or day of procedure ? ? The patient has medical comorbidities for which we will plan for the procedure to be performed under [facility]. ? ? ? Diagnoses: (Z12.11) Encounter for screening for malignant neoplasm of colon (primary encounter diagnosis) ? Consultation requested by Dr. Coronado for an opinion regarding screening colonoscopy. My final recommendations will be communicated back to the requesting physician by way of shared Medical record or letter to requesting physician via US mail. ? Pamella Hernandez PA-C I have re-examined the patient. There are no clinical changes since date of exam.
--- NOTE | 2022-03-11 13:13 | OP.COLON_ITS ---
Patient Name: Dipak Chapin Procedure Date: 03/11/2022 12:43 PM Date of : 1970 Age: 51 Procedure: Colonoscopy Indications: Screening for colorectal malignant neoplasm Providers: Keyshawn Carlos MD Medicines: See the Anesthesia note for documentation of the administered medications Patient Profile: This is a 51 year old male. Refer to note in patient chart for documentation of history and physical. Last Colonoscopy: none. The patient's first colonoscopy is today. Complications: No immediate complications. Estimated blood loss: Minimal. Procedure: Pre-Anesthesia Assessment: - Prior to the procedure, a History and Physical was performed, and patient medications and allergies were reviewed. The patient's tolerance of previous anesthesia was also reviewed. The risks and benefits of the procedure and the sedation options and risks were discussed with the patient. All questions were answered, and informed consent was obtained. Prior Anticoagulants: The patient has taken aspirin, last dose was 1 day prior to procedure. ASA Grade Assessment: II - A patient with mild systemic disease. After reviewing the risks and benefits, the patient was deemed in satisfactory condition to undergo the procedure. After I obtained informed consent, the scope was passed under direct vision. Throughout the procedure, the patient's blood pressure, pulse, and oxygen saturations were monitored continuously. The adult colonoscope was introduced through the anus and advanced to the cecum, identified by appendiceal orifice and ileocecal valve. The colonoscopy was performed without difficulty. The patient tolerated the procedure well. The quality of the bowel preparation was poor. Scope In: 12:48:51 PM Scope Withdrawal Time 0 hours 8 minutes 51 seconds Scope Out: 1:07:14 PM Total Procedure Duration Time 0 hours 18 minutes 23 seconds Findings: The perianal and digital rectal examinations were normal. A small polyp was found in the descending colon. The polyp was sessile. The polyp was removed with a hot snare. Resection and retrieval were complete. Non-bleeding internal hemorrhoids were found during retroflexion. The hemorrhoids were mild and small. The exam was otherwise without abnormality. Impression: - Preparation of the colon was poor. - One small polyp in the descending colon, removed with a hot snare. Resected and retrieved. - Non-bleeding internal hemorrhoids. - The examination was otherwise normal. Recommendation: - Patient has a contact number available for emergencies. The signs and symptoms of potential delayed complications were discussed with the patient. Return to normal activities tomorrow. Written discharge instructions were provided to the patient. - Resume previous diet. - Continue present medications. - Await pathology results. - Repeat colonoscopy in 5 years for surveillance. - Return to physician cosmetic sales assistant in 1 week. Procedure Code(s): --- Professional --- 34845, Colonoscopy, flexible; with removal of tumor(s), polyp(s), or other lesion(s) by snare technique Diagnosis Code(s): --- Professional --- Z12.11, Encounter for screening for malignant neoplasm of colon K64.8, Other hemorrhoids D12.4, Benign neoplasm of descending colon CPT copyright 2017 [employer]. All rights reserved. The codes documented in this report are preliminary and upon title closer review may be revised to meet current compliance requirements. MD Keyshawn Thurston MD 03/11/2022 1:12:42 PM This report has been signed electronically. Number of Addenda: 0 Note Initiated On: 03/11/2022 12:43 PM
--- NOTE | 2022-03-11 13:13 | OP.CCLET_ITS ---
03/11/2022 Peter Coronado [address] [place] [address] Re : Colonoscopy procedure for Dipak Chapin Dear Dr. Coronado This procedure was performed on Friday, March 11, 2022. My impressions and recommendations are as follows: Impressions : - Preparation of the colon was poor. - One small polyp in the descending colon, removed with a hot snare. Resected and retrieved. - Non-bleeding internal hemorrhoids. - The examination was otherwise normal. Recommendations : - Patient has a contact number available for emergencies. The signs and symptoms of potential delayed complications were discussed with the patient. Return to normal activities tomorrow. Written discharge instructions were provided to the patient. - Resume previous diet. - Continue present medications. - Await pathology results. - Repeat colonoscopy in 5 years for surveillance. - Return to physician stores assistant in 1 week. My findings are described in the full procedure note, which is enclosed. If I can be of further assistance, please feel free to contact me at Doctor phone number(s): , Work: . Sincerely, MD Keyshawn Thurston MD 03/11/2022 1:12:42 PM This report has been signed electronically.
[2022-03-11 13:41] LABS: Bedside Glucose 132 mg/dL (74-106)
== END 2022-03-11 14:04 | disposition home or self-care (01) ==
LOC: EN 12:09 → AC 12:10
PROVIDERS: PCP Family Medicine; Referring Provider Surgery; Visit Provider Surgery
PROC: 0DJD8ZZ Inspection of Lower Intestinal Tract, Via Natural or Artificial Opening Endoscopic (ICD-10-PCS; CPT 45378; principal; 2022-03-11 12:55)
DX: Z12.11 Encounter for screening for malignant neoplasm of colon (principal); E10.51 Type 1 diabetes mellitus with diabetic peripheral angiopathy without gangrene; E10.22 Type 1 diabetes mellitus with diabetic chronic kidney disease; E10.40 Type 1 diabetes mellitus with diabetic neuropathy, unspecified; I12.0 Hypertensive chronic kidney disease with stage 5 chronic kidney disease or end stage renal disease; N18.6 End stage renal disease; Z79.4 Long term (current) use of insulin; D12.4 Benign neoplasm of descending colon; K64.8 Other hemorrhoids; E78.5 Hyperlipidemia, unspecified; D63.1 Anemia in chronic kidney disease; I25.10 Atherosclerotic heart disease of native coronary artery without angina pectoris; Z95.5 Presence of coronary angioplasty implant and graft; F32.9 Major depressive disorder, single episode, unspecified; Z79.899 Other long term (current) drug therapy; Z79.82 Long term (current) use of aspirin; Z79.02 Long term (current) use of antithrombotics/antiplatelets
CPT/HCPCS: 45385; 82962; 88305; J7120; J2405

== ENCOUNTER 2022-05-24 08:22 | Emergency (ER) | payer MEDICARE, MEDICAID, SELFPAY ==
[2022-05-24 08:25] VITALS: BP 150/110; PULSE 72; RESP 18; TEMP 36.1; O2SAT 99; BMI 18.4
--- NOTE | 2022-05-24 08:48 | EDS_ITS ---
HPI History of Present Illness Chief Complaint: Hypoglycemia Detail of Chief Complaint: Hypoglycemia Informant: patient and EMS Narrative Narrative: Patient presents to the emergency department via EMS from home with a hypoglycemic episode. Patient states he just remembers the squad coming through the window. There was a welfare check on the patient when he did not go to his dialysis this morning he was supposed to be there at 6 AM. Patient initially was given Narcan as he had pinpoint pupils and was not responding appropriately. Blood sugar checked and showed a had a fingerstick blood sugar of 58. He was given dextrose. On arrival he states he feels much better. Patient is on insulin. Denies changes in his medications. He denies recent illness. Patient states he felt fine before going to bed. [facility] Medical History (Updated 05/24/22 @ 14:[address] Shahriar Valentino DO) Acute on chronic anemia Anemia due to chronic kidney disease Atherosclerotic heart disease of [place] coronary artery without angina pectoris Benign essential hypertension Cardiology follow-up encounter Cellulitis of right foot Chronic kidney disease Delayed wound healing Depression Diabetes Diabetes mellitus type 1 Diabetes mellitus with neuropathy Diabetic foot infection Diabetic neuropathy Dialysis patient DM type 1 causing renal disease End stage renal disease on dialysis ESRD (end stage renal disease) on dialysis Glaucoma History of echocardiogram History of iron deficiency HTN (hypertension) Hyperlipidemia Hypomagnesemia Hyponatremia Kidney disease Malnutrition Microcytic anemia Non-smoker NSTEMI (non-ST elevated myocardial infarction) Peripheral vascular disease Syncope and collapse Ulcer of right foot with fat layer exposed Wears dentures Wears glasses Home Medications hydralazine 100 mg tablet 100 mg PO TID hypertentsion 07/06/17 [History Last Taken 03/11/22] latanoprost 0.005 % eye drops 1 drp EACH EYE QHS eye drops 07/06/17 [History Last Taken 01/29/21] metoprolol tartrate 25 mg tablet 25 mg PO BID heart rate 07/06/17 [History Last Taken 03/11/22] sevelamer carbonate 800 mg tablet (Renvela) 1,600 mg PO TIDCM KIDNEYS 07/06/17 [History Last Taken 10/17/18] aspirin 81 mg tablet,delayed release 81 mg PO DAILY@0800 10/20/18 [Rx Last Taken 01/29/21] insulin detemir U-100 100 unit/mL (3 mL) subcutaneous pen (Levemir FlexTouch U- 100 Insulin) 8 unit subcut BREAKFAST diabetes 09/17/21 [History Last Taken Unknown] insulin detemir U-100 100 unit/mL (3 mL) subcutaneous pen (Levemir FlexTouch U- 100 Insulin) 10 unit subcut QHS diabetes 09/17/21 [History Last Taken Unknown] magnesium oxide 400 mg (241.3 mg magnesium) tablet 400 mg PO BID depression 09/17/21 [History Last Taken Unknown] Allergy/AdvReac Type Severity Reaction Status Date / Time calcium [From PhosLo] Allergy Hives Verified 05/24/22 08:25 Family History Sister Heart disease Uncle Colon cancer Surgical History (Updated 03/06/22 @ 11:47 by Jovanna Kerr) History of parotidectomy Presence of surgically created primary arteriovenous shunt for hemodialysis Status post peripheral artery angioplasty Status post transmetatarsal amputation of right foot Stented coronary artery (10/19/18) Social History household members: family Smoking Status: Never smoker alcohol intake: never substance use type: does not use ROS ROS ED ROS Narrative Unresponsive episode/hypoglycemia Review of Systems ROS Unobtainable: other Constitutional Constitutional ED: Reports lethargy; Denies chills, fever(s), sweats or weight loss Eyes Eyes: Denies blurry vision, change in vision or diplopia ENT ENT ED: Denies rhinorrhea or sore throat Cardiovascular Cardiovascular: Denies chest pain, orthopnea or racing heartbeat Respiratory/Chest Respiratory/Chest: Denies cough, dyspnea, dyspnea on exertion, orthopnea or sputum Gastrointestinal Gastrointestinal: Reports nausea; Denies abdominal pain, diarrhea or vomiting Genitourinary Genitourinary ED: Denies dysuria, hematuria or urinary frequency Musculoskeletal Musculoskeletal: Denies arthralgias, back pain, myalgias or neck pain Integumentary Denies abscess, Abrasions or rash Neurologic Neurologic: Denies headache(s) or weakness Psychiatric Psychiatric: Denies anxiety, depression or suicidal thoughts Endocrine Endocrinology: Denies polydipsia, polyphagia or polyuria Hematologic/Lymphatic Hematologic/Lymphatic: Denies easy bleeding, easy bruising or lymphadenopathy Allergic/Immunologic Allergic/Immunologic ED: Denies mouth swelling, tongue swelling or urticaria EXAM Physical Exam Const Vital Signs: 05/24/22 08:25 05/24/22 08:29 05/24/22 11:17 Temperature 97.0 F L 97.5 F L Temperature Source Temporal Oral Pulse Rate 72 83 Respiratory Rate 18 16 Respiratory Pattern Normal Blood Pressure 150/110 H 184/114 H Blood Pressure Mean 123 137 Pulse Ox 99 100 Oxygen Delivery Method Room Air Room Air Positive well nourished and well developed General Appearance ED: well developed and NAD HEENT Reports TM's clear and moist mucous membranes normocephalic and atraumatic; Negative for trauma or tenderness Tympanic Membrane ED: Yes TM's clear Eyes PERRL and EOMs intact bilaterally General Eye ED: Negative for pale conjunctiva or scleral icterus Neck no lymphadenopathy, supple and no JVD General: Negative for tenderness Chest Wall inspection of chest normal and palpation of chest normal Chest: Negative for tenderness Resp normal respiratory effort and clear to auscultation bilaterally Effort and Inspection: Negative for respiratory distress or pain with movement Auscultation: Negative for rhonchi, wheezes or diminished lung sounds Cardio regular rate, regular rhythm, S1 normal heart sound, S2 normal heart sound and no murmurs Peripheral Pulses: pulses 2+ throughout GI normal to inspection, nondistended, normoactive bowel sounds, soft to palpation, non-tender, non-distended and no masses Back/Spine no CVA tenderness and no thoracic nor lumbar tenderness Extremity normal to inspection General Extremety ED: Negative for edema General Extremity: Negative for edema Neuro oriented x3, CN's II-XII intact bilaterally, no sensory deficits noted and gait normal Sensorium / Orientation: awake, alert, oriented to person, oriented to place and oriented to time Motor Exam: strength 5/5 throughout and strength abnormal Psych mental status grossly normal Skin no rashes or lesions noted and no wounds MDM MDM MDM Narrative Medical decision making narrative: IV line established on arrival. Patient had basic labs that were essentially unremarkable. He does have a BUN of 42 and a creatinine of 7.87. Glucose was 77 at that time. Patient was given a meal tray. Patient states that he gave himself insulin last night and did not eat dinner so he thinks maybe that is what happened while and why his blood sugar dropped. Patient has been in the [facility] now for 5 hours and I have made multiple attempts to contact his table games manager unsuccessfully to see if they could get him in this afternoon to get him dialyzed. Patient states that he has missed dialysis before he is never had an issue. He will call his table games manager tomorrow or otherwise just go to his neck scheduled dialysis. Patient advised to return if increasing shortness of breath or condition should worsen anyway. Lab Data Attestation: I reviewed the patient's lab results. Labs: Laboratory Results - last 24 hr 05/24/22 05/24/22 05/24/22 09:25 09:25 11:25 WBC 7.2 RBC 5.02 Hgb 11.5 L Hct 38.6 L MCV 76.9 L MCH 22.9 L MCHC 29.8 L RDW Std Deviation 47.1 H RDW Coeff of Edda 17.5 H Plt Count 115 L MPV 9.3 Immature Gran % (Auto) 0.400 Neut % (Auto) 86.6 H Lymph % (Auto) 6.9 L [place] % (Auto) 5.7 Eos % (Auto) 0.1 Baso % (Auto) 0.3 Absolute Neuts (auto) 6.2 Absolute Lymphs (auto) 0.49 L Nucleated RBC % 0 Differential Comment SCANNED Sodium 137 Potassium 3.7 Chloride 99 Carbon Dioxide 33.0 H Anion Gap 5 BUN 42 H Creatinine 7.87 H* Estim Creat Clear Calc 10.27 Est GFR (MDRD) Af Amer 9 L Est GFR (MDRD) Non-Af 8 L BUN/Creatinine Ratio 5.3 L Glucose 77 Calcium 8.7 POC Glucose 100 05/24/22 12:55 WBC RBC Hgb Hct MCV MCH MCHC RDW Std Deviation RDW Coeff of Edda Plt Count MPV Immature Gran % (Auto) Neut % (Auto) Lymph % (Auto) [place] % (Auto) Eos % (Auto) Baso % (Auto) Absolute Neuts (auto) Absolute Lymphs (auto) Nucleated RBC % Differential Comment Sodium Potassium Chloride Carbon Dioxide Anion Gap BUN Creatinine Estim Creat Clear Calc Est GFR (MDRD) Af Amer Est GFR (MDRD) Non-Af BUN/Creatinine Ratio Glucose Calcium POC Glucose 126 H EKG Initial EKG: Attestation: I personally reviewed and interpreted this EKG as follows: Comments: EKG obtained arrival shows sinus rhythm with a rate of 72 bpm with old septal infarct otherwise nothing acute. Discharge Plan Triage Chief Complaint: Hypoglycemia ED Provider: Shahriar Valentino Dx/Rx/DC Orders Clinical Impression: Hypoglycemia Instructions: ED Diabetic Insulin Reaction Prescriptions: No Action latanoprost 1 DROP bottle 1 drp EACH EYE QHS hydralazine 100 MG tablet 100 mg PO TID metoprolol tartrate 25 MG tablet 25 mg PO BID sevelamer carbonate [Renvela] 800 MG tablet 1,600 mg PO TIDCM aspirin 81 MG tablet 81 mg PO DAILY@0800 0RF Levemir FlexTouch U-100 Insuln 100 unit/mL (3 mL) insulin pen 8 unit SUBCUT BREAKFAST Label Comments: inject 13 units in the morning and 10 units in the evening Levemir FlexTouch U-100 Insuln 100 unit/mL (3 mL) insulin pen 10 unit SUBCUT QHS Label Comments: inject 13 units in the morning and 10 units in the evening magnesium oxide 400 mg (241.3 mg magnesium) tablet 400 mg PO BID Label Comments: Take 1 tablet by mouth twice daily. Primary Care Provider: Peter Coronado Referrals: Peter Coronado MD [Primary Care Provider] - 3-5 Days Disposition Disposition: Home, Self Care
--- NOTE | 2022-05-24 09:10 | EKG12_ITS ---
Test Reason : sc Blood Pressure : / mmHG Vent. Rate : 072 BPM Atrial Rate : 072 BPM P-R Int : 142 ms QRS Dur : 076 ms QT Int : 448 ms P-R-T Axes : 070 -47 059 degrees QTc Int : 490 ms Normal sinus rhythm Left axis deviation Septal infarct , age undetermined Abnormal ECG Confirmed by ANDREA MENDEZ, TEODORA ([id number]), scientific publications editor ALISON RHODES ([id number]) on 05/27/2022 12:57:52 PM Referred By: Confirmed By:TEODORA MENDEZ MD
[2022-05-24] MEDS: Ondansetron 4 MG/2 ML Vial IV (09:25)
[2022-05-24 09:31] LABS: Absolute Lymphocyte Count 0.49 X10^3/uL (0.83-4.51); Absolute Neutrophil Count 6.2 X10^3/uL (2.0-7.7); Basophil# 0.02 X10^3/uL; Basophil% 0.3 % (0-1); Eosinophil# 0.01 X10^3/uL; Eosinophils% 0.1 % (0-5); Hematocrit 38.6 % (40-54); Hemoglobin 11.5 g/dL (13.0-16.5); Lymphocyte # 0.49 X10^3/ul (0.83-4.51); Lymphocyte % 6.9 % (19-41); Mean Corp Hgb Conc 29.8 g/dL (32-36); Mean Corpuscular Hgb 22.9 pg (27.0-32.0); Mean Corpuscular Volume 76.9 fL (80-94); Mean Platelet Vol. 9.3 fl (6.2-12.0); Monocyte# 0.41 X10^3/uL; Monocyte% 5.7 % (0-10); NRBC Flagged by Analyzer 0 % (0-5); Neutrophil # 6.19 X10^3/uL (2.7-7.7); Neutrophil % 86.6 % (47-70); POSITIVE DIFFERENTIAL YES; Platelet Count 115 K/mm3 (150-450); RBC Distribution Width CV 17.5 % (11.6-14.6); RBC Distribution Width SD 47.1 fl (35.1-43.9); Red Blood Count 5.02 M/mm3 (4.6-6.2); White Blood Count 7.2 K/mm3 (4.4-11.0)
[2022-05-24 09:47] LABS: Differential Indicated SCAN CRITERIA MET
[2022-05-24 09:50] LABS: Anion Gap 5 (5-15); BUN 42 mg/dL (7-18); BUN/Creat Ratio 5.3 RATIO (10-20); Calcium,Total 8.7 mg/dL (8.5-10.1); Chloride 99 mmol/L (98-107); Creatinine, Serum 7.87 mg/dL (0.70-1.30); EST Glomerular Filtration Rate 8 mL/min (>60); Est Glom Filt Rate - Afr Amer 9 mL/min (>60); Estimated Creatinine Clearance 10.27 ml/min; Glucose 77 mg/dL (74-106); Potassium 3.7 mmol/L (3.5-5.1); Sodium Level 137 mmol/L (136-145)
[2022-05-24 09:57] LABS: Differential Comment SCANNED
[2022-05-24 11:17] VITALS: BP 184/114; PULSE 83; RESP 16; TEMP 36.4; O2SAT 100
[2022-05-24 11:45] LABS: Bedside Glucose 100 mg/dL (74-106)
[2022-05-24 13:15] LABS: Bedside Glucose 126 mg/dL (74-106)
== END 2022-05-24 14:13 | disposition home or self-care (01) ==
PROVIDERS: Emergency Provider Emergency Medicine; PCP Family Medicine; Visit Provider Emergency Medicine
DX: E10.649 Type 1 diabetes mellitus with hypoglycemia without coma (principal); Z99.2 Dependence on renal dialysis; E10.22 Type 1 diabetes mellitus with diabetic chronic kidney disease; E10.40 Type 1 diabetes mellitus with diabetic neuropathy, unspecified; I12.0 Hypertensive chronic kidney disease with stage 5 chronic kidney disease or end stage renal disease; N18.6 End stage renal disease; Z79.4 Long term (current) use of insulin; E78.5 Hyperlipidemia, unspecified; I25.10 Atherosclerotic heart disease of native coronary artery without angina pectoris; Z79.82 Long term (current) use of aspirin; Z79.899 Other long term (current) drug therapy
CPT/HCPCS: 80048; 82962; 85025; 93005; 96374; 99285; J2405

== ENCOUNTER → 2022-12-26 | Outpatient (CLI) | payer MEDICARE, MEDICAID, SELFPAY | END | disposition home or self-care (01) | PROVIDERS: PCP Family Medicine; Visit Provider Podiatrist | DX: L97.512 Non-pressure chronic ulcer of other part of right foot with fat layer exposed (principal) | CPT/HCPCS: 87070; 87075; 87077; 87186; 87205 ==

== ENCOUNTER 2023-03-06 07:00 | Emergency (ER) | payer MEDICARE, MEDICAID, SELFPAY ==
[2023-03-06 07:01] VITALS: BP 154/88; PULSE 78; RESP 18; TEMP 36.6; O2SAT 98; BMI 19.3
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
[2023-03-06] MEDS: morphine 8 MG/ML Syringe 6 MG IM (07:41)
[2023-03-06] MEDS: Diphth,Pertuss(Acell),Tet Vac 0.5 ML Vial IM (07:43)
--- NOTE | 2023-03-06 07:43 | ED.RN ---
Left hand and right elbow placed in chlorhexidine and saline soak. Medicated per order.
[2023-03-06] MEDS: Acetaminophen 325 MG Tablet 650 MG PO (07:44)
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
--- NOTE | 2023-03-06 07:55 | ED.RN ---
Right elbow and left hand soaked in saline and shkristopherleanse
[2023-03-06 09:00] VITALS: BP 146/78; PULSE 73; RESP 16; O2SAT 98
[2023-03-06] MEDS: morphine 10 MG/ML Syringe 8 MG IM (09:42)
[2023-03-06] MEDS: BACITRACIN 15 GM Tube 1 APPLIC TOPICAL (09:43)
--- NOTE | 2023-03-06 10:42 | RAD_ITS ---
STUDY: X-RAY - RIGHT ELBOW REASON FOR EXAM: Male, 52 years old. Pain following injury. TECHNIQUE: 3 view(s) of the elbow. COMPARISON: None. FINDINGS: Nondisplaced avulsion fracture of the olecranon process of the proximal posterior ulna. Vascular calcification. RAD/Elbow min 3 Views IMPRESSION: Avulsion fracture of the olecranon process of the proximal ulna with overlying soft tissue swelling. Electronically Signed: Merlin Kate MD at 11:10 EDT ,
[2023-03-06 11:55] VITALS: BP 164/87; PULSE 70; RESP 18; O2SAT 100
[2023-03-06] MEDS: oxyCODONE 5 MG Tablet PO (12:20)
[2023-03-06] MEDS: Cephalexin 250 MG Capsule 500 MG PO (12:20)
[2023-03-06] MEDS: Ondansetron ODT 4 MG Tablet PO (12:46)
[2023-03-06 13:03] LABS: Bedside Glucose 208 mg/dL (74-106)
== END 2023-03-06 12:53 | disposition home or self-care (01) ==
PROVIDERS: Emergency Provider Emergency Medicine; PCP Family Medicine; Visit Provider Emergency Medicine
DX: S80.12XA Contusion of left lower leg, initial encounter (principal); E10.51 Type 1 diabetes mellitus with diabetic peripheral angiopathy without gangrene; Z99.2 Dependence on renal dialysis; E10.22 Type 1 diabetes mellitus with diabetic chronic kidney disease; E10.40 Type 1 diabetes mellitus with diabetic neuropathy, unspecified; I12.0 Hypertensive chronic kidney disease with stage 5 chronic kidney disease or end stage renal disease; N18.6 End stage renal disease; S40.211A Abrasion of right shoulder, initial encounter; S50.811A Abrasion of right forearm, initial encounter; S30.810A Abrasion of lower back and pelvis, initial encounter; S80.211A Abrasion, right knee, initial encounter; S52.021A Displaced fracture of olecranon process without intraarticular extension of right ulna, initial encounter for closed fracture; I25.10 Atherosclerotic heart disease of native coronary artery without angina pectoris; I25.2 Old myocardial infarction; V29.881A Electric (assisted) bicycle rider (driver) (passenger) injured in other specified transport accidents, initial encounter; Z95.5 Presence of coronary angioplasty implant and graft
CPT/HCPCS: 73030; 73080; 82962; 90715; 96372; 99285

== ENCOUNTER 2023-03-07 09:21 | Emergency (ER) | payer MEDICARE, MEDICAID, SELFPAY ==
[2023-03-07 09:23] VITALS: BP 126/76; PULSE 82; RESP 18; TEMP 36.6; O2SAT 100; BMI 18.8
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
[2023-03-07 10:11] LABS: Absolute Lymphocyte Count 0.47 X10^3/uL (0.83-4.51); Absolute Neutrophil Count 3.9 X10^3/uL (2.0-7.7); Basophil# 0.01 X10^3/uL; Basophil% 0.2 % (0-1); Eosinophil# 0.05 X10^3/uL; Hematocrit 29.6 % (40-54); Hemoglobin 9.1 g/dL (13.0-16.5); Lymphocyte # 0.47 X10^3/ul (0.83-4.51); Lymphocyte % 9.4 % (19-41); Mean Corp Hgb Conc 30.7 g/dL (32-36); Mean Corpuscular Hgb 23.4 pg (27.0-32.0); Mean Corpuscular Volume 76.1 fL (80-94); Mean Platelet Vol. 10.7 fl (6.2-12.0); Monocyte# 0.57 X10^3/uL; Monocyte% 11.4 % (0-10); NRBC Flagged by Analyzer 0 % (0-5); Neutrophil # 3.89 X10^3/uL (2.7-7.7); Neutrophil % 77.8 % (47-70); POSITIVE COUNT YES; POSITIVE DIFFERENTIAL YES; Platelet Count 86 K/mm3 (150-450); RBC Distribution Width CV 17.3 % (11.6-14.6); RBC Distribution Width SD 47.7 fl (35.1-43.9); Red Blood Count 3.89 M/mm3 (4.6-6.2)
[2023-03-07 10:16] LABS: Differential Indicated SCAN CRITERIA MET
[2023-03-07 10:20] LABS: Anion Gap 5 (5-15); BUN 21 mg/dL (7-18); BUN/Creat Ratio 4.6 RATIO (10-20); Calcium,Total 7.6 mg/dL (8.5-10.1); Chloride 97 mmol/L (98-107); Creatinine, Serum 4.54 mg/dL (0.70-1.30); EST Glomerular Filtration Rate 14 mL/min (>60); Est Glom Filt Rate - Afr Amer 17 mL/min (>60); Estimated Creatinine Clearance 17.94 ml/min; Glucose 166 mg/dL (74-106); Sodium Level 132 mmol/L (136-145)
[2023-03-07 10:21] LABS: International Normalized Ratio 1.1; Partial Thromboplast Time 25.9 Seconds (24.1-36.2); Prothrombin Time (Protime)PT. 14.1 SECONDS (11.7-14.9)
[2023-03-07 10:43] LABS: Platelet Estimate MOD DEC (ADEQ)
[2023-03-07] MEDS: Morphine 4 MG/ML Syringe IV (11:06)
== END 2023-03-07 11:58 | disposition home or self-care (01) ==
PROVIDERS: Emergency Provider Emergency Medicine; PCP Family Medicine; Visit Provider Emergency Medicine
DX: E10.22 Type 1 diabetes mellitus with diabetic chronic kidney disease (principal); E10.51 Type 1 diabetes mellitus with diabetic peripheral angiopathy without gangrene; Z99.2 Dependence on renal dialysis; E10.40 Type 1 diabetes mellitus with diabetic neuropathy, unspecified; N18.6 End stage renal disease; R10.12 Left upper quadrant pain; R07.9 Chest pain, unspecified; I25.10 Atherosclerotic heart disease of native coronary artery without angina pectoris; I25.2 Old myocardial infarction; V23.9 Unspecified motorcycle rider injured in collision with car, pick-up truck or van in traffic accident; Z95.5 Presence of coronary angioplasty implant and graft
CPT/HCPCS: 71260; 74177; 80048; 85025; 85610; 85730; 93005; 96374; 99284; Q9967; A4216

== ENCOUNTER → 2024-01-08 | Day surgery (SDC) | payer MEDICARE, MEDICAID, SELFPAY ==
[2023-12-29 08:30] VITALS: BMI 19.1
--- NOTE | 2024-01-08 07:48 | HP.PCM_ITS ---
History and Physical HPI HPI HPI: THOM PASCUAL, is a 53 M who presents to the office today for evaluation of AV fistula with diminished flow rates by dialysis center report. He has dialysis MWF at [facility]. He has a L forearm radiocephalic fistula which was created by Dr. Graves in 2016. He has not had any other fistulas. He has required periodic fistulograms with angioplasty for similarly diminished flows over the last 8 years. These have been performed by Dr. Andrews. Reviewing previous records, he had angioplasty of venous stenosis in the proximal fistula and at the anastomosis in 09/2017, arterial anastomotic and proximal fistula venous stenosis angioplasty 12/2018, angioplasty proximal fistula venous stenosis 03/2021. 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 It is also noted that there has been past difficulty w ith accessing the radial artery. He reports he has not noticed any other difficulties. He has not had any prolonged bleeding, frequent machine alarms, or clotting. No new pain or swelling. He does not have any L hand paresthesias, weakness, or coolness. No other complaints today. His medical history is otherwise significant for DM type 1, HTN, CAD/NSTEMI s/p PCI (2018). He takes daily ASA 81mg with no adverse effects. ROS General General: No weight change, appetite, fatigue, colon cancer, breast cancer or weakness HEENT HEENT: No difficulty swallowing, eye injury, eye surgery, swollen glands or hoarseness Endo Endocrine: Yes diabetes mellitus; No thyroid disease, thyroid cancer, Hair loss, heat intolerance or cold intolerance Skin Skin: No rash or changing moles Musc Musculoskeletal: No back problems, arthritis, rheumatoid arthritis, gout or joint pain Cardio Cardiovascular: Yes high blood pressure, heart attack and heart stent; No murmur, pacemaker, heart disease, atrial fibrillation, palpitations, shortness of breat with exertion or chest pain Psych Psychiatric: No depression, anxiety or hearing voices Resp Respiratory: No shortness of breath, No sleep apnea, No cough, No COPD, No asthma, No emphysema and No wheezing Gastro Gastrointestinal: No abdominal pain, No nausea or vomiting, No diarrhea, No constipation, No blood in stool, No acid reflux, No hemorrhoids, No ulcers, No gallbladder problem and No black,tarry stools [place] Hematologic: No blood thinners, No blood disorders, No bleeding, No anemia and No blood clots Neuro Neurologic: No system reviewed and no additional complaints, except as documented, No as per HPI, No abnormal gait, No abnormal hearing, No abnormal mo vements, No abnormal speech, No behavioral changes, No burning sensations, No confusion, No convulsions, No disequilibrium, No dizziness, No localized weakness, No frequent falls, No headache(s), No lack of coordination, No loss of vision, No memory loss, No numbness, No other visual disturbances, No radicular pain, No restless legs, No sensory deficit, No syncope, No tingling, No tremor(s), No weakness and No other Exam Const General: cooperative, comfortable and no acute distress Orientation: alert, awake and oriented x3 HENMT Head: normal to inspection, normocephalic and atraumatic Ears: hearing grossly normal bilaterally and external ears normal Nose: external nose normal Eyes General: appearance normal, both eyes and all related structures EOM: EOM intact bilaterally Neck Neck: normal visual inspection and trachea midline Resp Effort & Inspection: normal respiratory effort, able to speak in complete sentences, no audible wheezes, no grunting, not labored and no stridor Auscultation: clear to auscultation bilaterally Cardio Rate: regular rate Rhythm: regular rhythm Skin General: no rashes or lesions noted Wounds: no wounds Neuro General: moves all extremities, no focal motor deficits and CN's II-XI intact bilaterally Speech: speech normal Motor: strength 5/5 throughout Sensory Exam: no sensory deficits noted Extremities Additional Details: Palpable L radial pulse. L forearm AVF with palpable thrill and good bruit throughout Coding Level of Care Code Off vis,new,level 3 Diagnoses ESRD (end stage renal disease) on dialysis N18.6; Z99.2 Dialysis AV fistula malfunction T82.590A Assessment and Plan Assessment and Plan (1) ESRD (end stage renal disease) on dialysis: Status: Chronic (2) Dialysis AV fistula malfunction: Status: Acute Plan -fistulagram
--- NOTE | 2024-01-08 09:21 | PCM.OPRPT ---
Report of Operation Date of Procedure: 01/08/24 Pre-Operative Diagnosis: fistula stenosis Post-Operative Diagnosis: same Surgery/Procedure Performed:: fistulagram, angioplasty proximal fistula Surgeon: Jenaro Leggett Type of Anesthesia: Local and Sedation,Conscious Estimated Blood Loss (mL): 7 Description of Procedure: HPI: Patient is a 53-year-old male with end-stage renal disease currently on dialysis via a left radiocephalic fistula that was created several years prior. He has had several fistulogram's with intervention over the years most recently approximately 3 years ago for a proximal stenosis. He presents now for a fistulogram due to decreased flow volumes on his dialysis sessions. Description of procedure: Upon obtaining informed consent and verification correct patient procedure site patient was taken to the Emergency Vehicle Dispatcher was positioned prepped and draped in usual sterile fashion. Timeout was performed, sedation administered with Versed and fentanyl. Skin overlying the fistula was anesthetized 1% lidocaine the vessel accessed under ultrasound guidance in retrograde fashion towards the arterial anastomosis with a micropuncture needle and wire. This was then exchanged for a 6 [place] sheath through which hand-injection subtraction angiography was performed revealing satisfactory positioning no extravasation or dissection. Through the sheath a angled Glidewire was advanced and a short KMP catheter positioned in the proximal fistula at the anastomosis. Subtraction angiography was performed from this position which revealed greater than 50% stenosis tandem lesions just beyond the anastomosis with an otherwise satisfactory appearing arteriovenous anastomosis and radial inflow artery. Patient was then heparinized and allowed to circulate for 3 minutes after which time an 014 wire was advanced and the KMP catheter exchanged for a [place] AngioSculpt balloon 6 mm x 40 which was advanced in the position inflated for multiple inflations across the area of stenosis. On the balloon was withdrawn the catheter was readvanced and repeat angiography confirmed satisfactory response with no residual stenosis. A 6 x 40 [employer] [place] paclitaxel coated balloon was then advanced and inflated to nominal for 3 minutes covering the entirety of the lesion. Balloon was then deflated withdrawn and the catheter readvanced with completion angiography confirming satisfactory response with no residual stenosis and no extravasation or dissection. The cath was then withdrawn and through the sheath subtraction angiography of the remainder of the venous outflow was performed which revealed known occlusion of the cephalic outflow vein with primary outflow via the deep system and basilic vein with widely patent axillary, subclavian, innominate veins as well as a widely patent superior vena cava. Nylon suture was then placed and secured and the catheter withdrawn followed by 5 minutes of manual pressure with satisfactory stasis noted. Patient was then taken to recovery room for bedrest prior to discharge to home.
== END | disposition home or self-care (01) ==
PROVIDERS: PCP Family Medicine; Referring Provider Surgery Trauma Surgery; Visit Provider Surgery Trauma Surgery
DX: T82.590A Other mechanical complication of surgically created arteriovenous fistula, initial encounter (principal); I12.0 Hypertensive chronic kidney disease with stage 5 chronic kidney disease or end stage renal disease; N18.6 End stage renal disease; E10.22 Type 1 diabetes mellitus with diabetic chronic kidney disease; I25.2 Old myocardial infarction; Z99.2 Dependence on renal dialysis; Z79.82 Long term (current) use of aspirin; Z79.899 Other long term (current) drug therapy; X58.XXXA Exposure to other specified factors, initial encounter
CPT/HCPCS: 36902; 76937; 99152; 99153; C1725; C2623; J7040; Q9967; C1769

== ENCOUNTER → 2024-04-09 | Outpatient (CLI) | payer MEDICARE, MEDICAID, SELFPAY | END | disposition home or self-care (01) | PROVIDERS: PCP Family Medicine; Referring Provider Internal Medicine Nephrology; Visit Provider Internal Medicine Nephrology | DX: D69.6 Thrombocytopenia, unspecified (principal); N18.6 End stage renal disease | CPT/HCPCS: 36415 ==

== ENCOUNTER 2024-12-27 16:51 | Observation (INO) | payer MEDICARE, MEDICAID, SELFPAY ==
[2024-12-27 16:53] VITALS: BP 110/67; PULSE 73; RESP 16; TEMP 36; O2SAT 100; BMI 18.3
--- NOTE | 2024-12-27 17:34 | EX.ED.DYSGE1 ---
HPI History of Present Illness Chief Complaint: Abn Labs Narrative Narrative: Chief complaint and HPI: Anemia. 54-year-old male with past medical history of DM1, ESRD status post kidney transplant 2 months ago presents for evaluation of anemia. Patient states that he follows with the kidney transplant team. He does not remember the name of his physician or what immunosuppressants/medications he is currently taking. He states he does believe one is mycophenolate. He states that he has been taking all of his medications. States he had routine blood work performed at [facility] and was called by his transplant team stating that he is anemic and that he needs to go to the emergency department for blood transfusion. He denies any fever, chills, shortness of breath, chest pain abdominal pain, nausea, vomiting, dysuria. States he has been eating and drinking well. Review of systems: See HPI Medications: As listed on the chart Allergies: As listed on the chart PFSH: Per chart Vital signs: As listed on the chart. Reviewed. Physical exam: Gen: A&O x3, NAD Head: Normocephalic, atraumatic Eyes: No sclera icterus, conjunctiva clear ENT: Moist mucous membranes Neck: Trachea midline, No JVD CV: RRR, no murmurs, no peripheral edema Resp: Lungs CTA BL, no w/r/c GI: Abd soft, non-distended, non-tender, no r/r/g Musc: Full ROM, no deformity Skin: Warm, dry Neuro: Alert, oriented, grossly intact, sensation intact Psych: Cooperative, appropriate mood and affect [facility] Medical History (Updated 12/27/24 @ 18:43 by Nishi Roth) Myocardial infarct Wears glasses Wears dentures History of echocardiogram Cardiology follow-up encounter End stage renal disease on dialysis Diabetes Dialysis patient Kidney disease Non-smoker Syncope and collapse Atherosclerotic heart disease of [place] coronary artery without angina pectoris NSTEMI (non-ST elevated myocardial infarction) Malnutrition Delayed wound healing Ulcer of right foot with fat layer exposed History of iron deficiency Anemia due to chronic kidney disease HTN (hypertension) Hypomagnesemia Diabetic foot infection ESRD (end stage renal disease) on dialysis Diabetic neuropathy Hyponatremia DM type 1 causing renal disease Acute on chronic anemia Cellulitis of right foot Peripheral vascular disease Diabetes mellitus with neuropathy Microcytic anemia Depression Hyperlipidemia Diabetes mellitus type 1 Glaucoma Benign essential hypertension Home Medications ?Medication ?Instructions ?Recorded ?Last Taken ?Type hydralazine 100 mg tablet 100 mg PO TID hypertentsion 07/06/17 12/27/24 History latanoprost 0.005 % eye drops 1 drp EACH EYE QHS eye drops 07/06/17 12/26/24 History aspirin 81 mg tablet,delayed 81 mg PO DAILY@0800 05//12/27/24 Rx release atorvastatin 40 mg tablet 40 mg PO QHS cholesterol 01/07/24 12/26/24 History amlodipine 5 mg tablet 5 mg PO BID 12/27/24 12/27/24 History calcitriol 0.25 mcg capsule 0.25 mcg PO DAILY 12/27/24 12/27/24 History carvedilol 25 mg tablet 25 mg PO BID 12/27/24 12/27/24 History cholecalciferol (vitamin D3) 50 50 mcg PO DAILY 12/27/24 12/27/24 History mcg (2,000 unit) capsule clotrimazole 10 mg alva 10 mg mucous membrane TID 12/27/24 12/27/24 History dorzolamide 22.3 mg-timolol 6.8 1 drp ophthalmic (eye) BID 12/27/24 12/27/24 History mg/mL eye drops folic acid 0.8 mg-vit B comp with 1 tab PO DAILY 12/27/24 12/27/24 History Z-dqro-bruxuam D3 2,000 unit tablet (Dialyvite 800-Ultra D) furosemide 40 mg tablet 40 mg PO BID 12/27/24 12/27/24 History insulin aspart U-100 100 unit/mL 2 unit subcut TID 12/27/24 12/27/24 History (3 mL) subcutaneous pen insulin degludec 100 unit/mL (3 10 unit subcut DAILY 12/27/24 12/27/24 History mL) subcutaneous pen mycophenolate mofetil 250 mg 750 mg PO Q12H 12/27/24 12/27/24 History capsule pantoprazole 40 mg tablet,delayed 40 mg PO DAILY 12/27/24 12/27/24 History release prednisone 5 mg tablet 5 mg PO Q6H 12/27/24 12/27/24 History sulfamethoxazole 400 1 tab PO DAILY 12/27/24 12/27/24 History mg-trimethoprim 80 mg tablet tacrolimus 1 mg capsule, 3 mg PO BID 12/27/24 12/27/24 History immediate-release tamsulosin 0.4 mg capsule 0.4 mg PO DAILY 12/27/24 12/27/24 History valganciclovir 450 mg tablet 450 mg PO DAILY 12/27/24 12/27/24 History Allergy/AdvReac Type Severity Reaction Status Date / Time calcium (From PhosLo) Allergy Hives Verified 12/04/23 10:08 Family History Sister Heart disease Uncle Colon cancer Surgical History (Updated 12/27/24 @ 17:34 by Terra Ruiz) Hx of kidney transplant History of parotidectomy Stented coronary artery (10/19/18) Status post peripheral artery angioplasty Presence of surgically created primary arteriovenous shunt for hemodialysis Status post transmetatarsal amputation of right foot Social History household members: family Smoking Status: Never smoker alcohol intake: never substance use type: does not use EXAM Physical Exam Const Vital Signs: 12/27/24 16:53 12/27/24 17:33 12/27/24 18:44 Temperature 96.8 F L Temperature Source Temporal Pulse Rate 73 70 Respiratory Rate 16 18 Respiratory Effort Normal Non-Labored Respiratory Pattern Normal Blood Pressure 110/67 133/71 H Blood Pressure Mean 81 91 Pulse Ox 100 100 Oxygen Delivery Method Room Air Room Air MDM MDM MDM Narrative Medical decision making narrative: 54-year-old male with past medical history of DM1, ESRD status post kidney transplant 2 months ago presents for evaluation of anemia. Patient states that he follows with the kidney transplant team. States he had routine blood performed today at [place] and was called by his transplant team stating that he was anemic and needed to go to the nearest emergency department for blood transfusion. He denies any complaints. Patient has a number to his transplant care team at , I was able to personally contact them and spoke with one of the team providers. She states that the note states that the patient was anemic and that he needed to come to the emergency for blood transfusion. No other concerns at this time. Differential diagnosis includes but is not limited to anemia, electrolyte abnormality. Basic labs ordered with UA and type and screen. CBC with leukopenia 3.6. Patient has a history of this in the past. He has anemia with hemoglobin of 6.4. Platelets unremarkable. BMP shows baseline ESRD. Patient is be positive. Patient will warrant 2 units packed RBCs. I spoke with the blood bank, they state it will be approximately 6 hours before they can get the appropriate blood for the patient. Therefore patient will warrant admission. He confirmed understanding the plan. I spoke with the hospitalist service who accepted admission. Impression: 1. Anemia requiring blood transfusion 2. History of ESRD status post kidney transplant 2 months ago Lab Data Labs: Laboratory Results - last 24 hr 12/27/24 12/27/24 17:40 17:50 WBC 3.6 L RBC 2.46 L Hgb 6.4 L Hct 20.8 L MCV 84.6 MCH 26.0 L MCHC 30.8 L RDW Std Deviation 64.3 H RDW Coeff of Edda 20.9 H Plt Count 188 MPV 10.0 Immature Gran % (Auto) 1.700 H Neut % (Auto) 82.0 H Lymph % (Auto) 9.0 L [place] % (Auto) 6.2 Eos % (Auto) 0.8 Baso % (Auto) 0.3 Absolute Neuts (auto) 2.9 Absolute Lymphs (auto) 0.32 L Nucleated RBC % 0 Sodium 138 Potassium 5.1 Chloride 115 H Carbon Dioxide 13.2 L Anion Gap 9 BUN 85 H Creatinine 3.19 H Estim Creat Clear Calc 24.44 L Est GFR (MDRD) Non-Af 22 L BUN/Creatinine Ratio 26.7 H Glucose 316 H Calcium 8.8 Blood Type B POSITIVE Antibody Screen NEGATIVE Discharge Plan Triage Chief Complaint: Abn Labs ED Provider: Hamlet Bentley Dx/Rx/DC Orders Prescriptions: No Action latanoprost 1 DROP bottle 1 drp EACH EYE QHS hydralazine 100 MG tablet 100 mg PO TID aspirin 81 MG tablet 81 mg PO DAILY@0800 0RF atorvastatin 40 mg tablet 40 mg PO QHS furosemide 40 mg tablet 40 mg PO BID clotrimazole 10 mg alva 10 mg mucous membrane TID valganciclovir 450 mg tablet 450 mg PO DAILY carvedilol 25 mg tablet 25 mg PO BID sulfamethoxazole-trimethoprim 400-80 mg tablet 1 tab PO DAILY mycophenolate mofetil 250 mg capsule 750 mg PO Q12H prednisone 5 mg tablet 5 mg PO Q6H amlodipine 5 mg tablet 5 mg PO BID tamsulosin 0.4 mg capsule 0.4 mg PO DAILY pantoprazole 40 mg tablet,delayed release (DR/EC) 40 mg PO DAILY dorzolamide-timolol 22.3-6.8 mg/mL drops 1 drp ophthalmic (eye) BID tacrolimus 1 mg capsule 3 mg PO BID calcitriol 0.25 mcg capsule 0.25 mcg PO DAILY insulin aspart U-100 100 unit/mL (3 mL) insulin pen 2 unit SUBCUT TID Patient Comments: Inject 3 Units under the skin 3 times a day before meals. Inject 2 units for breakfast, lunch, and dinner. Check blood sugar & follow sliding scale. 0 unit(s) if Blood glucose is between 71-150; 1 unit(s) for 151-200; 2 unit(s) for 201-250; 3 unit(s) for 251-300; 4 unit(s) for 301-350; 5 unit(s) for 351-400 (up to 50 units/day) cholecalciferol (vitamin D3) 50 mcg (2,000 unit) capsule 50 mcg PO DAILY Rx Instructions: AM Dialyvite 800-Ultra D 0.8-2,000 mg-unit tablet 1 tab PO DAILY insulin degludec 100 unit/mL (3 mL) insulin pen 10 unit subcut DAILY Rx Instructions: AM Primary Care Provider: Peter Coronado Referrals: Peter Coronado MD [Primary Care Provider] - Print Language: Khmer
[2024-12-27 18:11] LABS: Hematocrit 20.8 % (40-54); Hemoglobin 6.4 g/dL (13.0-16.5); Immature Granulocytes Count 0.060 X10^3/uL (0.0-0.0); Mean Corp Hgb Conc 30.8 g/dL (32-36); Mean Corpuscular Volume 84.6 fL (80-94); Mean Platelet Vol. 10.0 fl (6.2-12.0); NRBC Flagged by Analyzer 0 % (0-5); POSITIVE DIFFERENTIAL YES; POSITIVE MORPHOLOGY YES; Platelet Count 188 K/mm3 (150-450); RBC Distribution Width CV 20.9 % (11.6-14.6); RBC Distribution Width SD 64.3 fl (35.1-43.9); Red Blood Count 2.46 M/mm3 (4.6-6.2); White Blood Count 3.6 K/mm3 (4.4-11.0)
[2024-12-27 18:13] LABS: Differential Indicated SCAN CRITERIA MET
[2024-12-27 18:25] LABS: Anion Gap 9 (5-15); BUN 85 mg/dL (4-19); BUN/Creat Ratio 26.7 RATIO (10-20); Calcium,Total 8.8 mg/dL (7.6-11.0); Carbon Dioxide 13.2 mmol/L (21.0-32.0); Chloride 115 mmol/L (98-108); Estimated Creatinine Clearance 24.44 ml/min (50-250); Glucose 316 mg/dL (70-99); Potassium 5.1 mmol/L (3.3-5.1)
[2024-12-27 18:44] VITALS: BP 133/71; PULSE 70; RESP 18; O2SAT 100
--- NOTE | 2024-12-27 19:18 | CASEMGMT ---
Care Management Face to Face with patient for initial transition planning/care coordination assessment in the ED. This blurb writer introduced self and role at [facility]. Patient alert and oriented. Patient willing to participate in assessment and is able to answer all questions appropriately. Care providers, pharmacy, and demographics verified. Admitting Diagnosis: Anemia due to chronic kidney disease Other diagnosis history: DM1, ESRD status post kidney transplant 2 months ago PCP: Cliff Specialists: none Preferred Pharmacy: [facility] Insurance: [email or web address] Dual Access (primary). Medicaid (secondary). Prescription Benefit: yes Living Will/HPOA: none and denies needing information. LNOK: 3 daughters, Nik De La O, Sonny Chapin, Yvon Chapin. Living Arrangements: lives alone in a 1 story apartment with one step to enter. Independent at baseline with all ADLs/IADLs. Transportation: patient does not drive; relies on [email or web address] insurance for transportation. DME: grab bars in bathroom HHC: none SNF/Rehab: none Community Resources: none Patient goals: Patient wishes to discharge home, denies need for home health care at this time. Patient denies any further needs or concerns at this time. Disposition Plan: admission to acute; RN CM/SW to follow for discharge planning needs that may arise. Becca Flynn, EXPORT COORDINATOR, STRATEGY PLANNING CONSULTANT
[2024-12-27 19:23] VITALS: BP 133/76; PULSE 76; RESP 16; TEMP 36.7; O2SAT 100
[2024-12-27 19:30] LABS: Anisocytosis 2+; Differential Comment SCANNED; Hypochromasia 1+; Polychromasia 1+
--- NOTE | 2024-12-27 20:21 | PCM.HP.STD ---
HPI - General General Date of Admission: 12/27/24 Date of Service: 12/27/24 Chief Complaint: Abnormal labs HPI Narrative THOM PASCUAL, is a 54-year-old male history of type 1 diabetes and end-stage renal disease status post kidney transplant 2 months ago as well as BPH, coronary artery disease with stenting, GERD, hypertension who presented [facility] ED 12/27/2024 for anemia and blood transfusion. Patient states he follows with kidney transplant team and has been compliant with his medications. He had routine blood work at [facility] and was called by his transplant team stating he is anemic and that he needs to go to the emergency department for blood transfusion. In the ED temp 96.8, heart rate 73 with a blood pressure of 110/67, pulse ox 100% on room air with respiratory rate of 16. CBC revealed white blood cell count 3.6, hemoglobin 6.4, platelet count 188. BMP with a chloride of 115, bicarb 13.2 with a BUN of 85 and a creatinine of 3.19. Glucose of 316. ED physician discussed with transplant team who said patient only needed transfused and then discharged. Hospitalist contacted for admission as patient would not be able to get blood for 6 hours due to antibodies so he will require stay overnight. Patient evaluated bedside. He reports history as above with need for transfusions previously as well. He denies any acute change in clinical status and has no complaints whatsoever. [facility] Medical History (Updated 12/27/24 @ 18:43 by Nishi Roth) Acute on chronic anemia Anemia due to chronic kidney disease Atherosclerotic heart disease of [place] coronary artery without angina pectoris Benign essential hypertension Cardiology follow-up encounter Cellulitis of right foot Delayed wound healing Depression Diabetes Diabetes mellitus type 1 Diabetes mellitus with neuropathy Diabetic foot infection Diabetic neuropathy Dialysis patient DM type 1 causing renal disease End stage renal disease on dialysis ESRD (end stage renal disease) on dialysis Glaucoma History of echocardiogram History of iron deficiency HTN (hypertension) Hyperlipidemia Hypomagnesemia Hyponatremia Kidney disease Malnutrition Microcytic anemia Myocardial infarct Non-smoker NSTEMI (non-ST elevated myocardial infarction) Peripheral vascular disease Syncope and collapse Ulcer of right foot with fat layer exposed Wears dentures Wears glasses Home Medications ?Medication ?Instructions ?Recorded ?Last Taken ?Type hydralazine 100 mg tablet 100 mg PO TID hypertentsion 07/06/17 12/27/24 History latanoprost 0.005 % eye drops 1 drp EACH EYE QHS eye drops 07/06/17 12/26/24 History aspirin 81 mg tablet,delayed 81 mg PO DAILY@0800 10/20/18 12/27/24 Rx release atorvastatin 40 mg tablet 40 mg PO QHS cholesterol 01/07/24 12/26/24 History amlodipine 5 mg tablet 5 mg PO BID 12/27/24 12/27/24 History calcitriol 0.25 mcg capsule 0.25 mcg PO DAILY 12/27/24 12/27/24 History carvedilol 25 mg tablet 25 mg PO BID 12/27/24 12/27/24 History cholecalciferol (vitamin D3) 50 50 mcg PO DAILY 12/27/24 12/27/24 History mcg (2,000 unit) capsule clotrimazole 10 mg alva 10 mg mucous membrane TID 12/27/24 12/27/24 History dorzolamide 22.3 mg-timolol 6.8 1 drp ophthalmic (eye) BID 12/27/24 12/27/24 History mg/mL eye drops folic acid 0.8 mg-vit B comp with 1 tab PO DAILY 12/27/24 12/27/24 History P-mijx-rxcwzqw D3 2,000 unit tablet (Dialyvite 800-Ultra D) furosemide 40 mg tablet 40 mg PO BID 12/27/24 12/27/24 History insulin aspart U-100 100 unit/mL 2 unit subcut TID 12/27/24 12/27/24 History (3 mL) subcutaneous pen insulin degludec 100 unit/mL (3 10 unit subcut DAILY 12/27/24 12/27/24 History mL) subcutaneous pen mycophenolate mofetil 250 mg 750 mg PO Q12H 12/27/24 12/27/24 History capsule pantoprazole 40 mg tablet,delayed 40 mg PO DAILY 12/27/24 12/27/24 History release prednisone 5 mg tablet 5 mg PO Q6H 12/27/24 12/27/24 History sulfamethoxazole 400 1 tab PO DAILY 12/27/24 12/27/24 History mg-trimethoprim 80 mg tablet tacrolimus 1 mg capsule, 3 mg PO BID 12/27/24 12/27/24 History immediate-release tamsulosin 0.4 mg capsule 0.4 mg PO DAILY 12/27/24 12/27/24 History valganciclovir 450 mg tablet 450 mg PO DAILY 12/27/24 12/27/24 History Allergy/AdvReac Type Severity Reaction Status Date / Time calcium (From PhosLo) Allergy Hives Verified 12/04/23 10:08 Family History Sister Heart disease Uncle Colon cancer Surgical History (Updated 12/27/24 @ 17:34 by Terra Ruiz) History of parotidectomy Hx of kidney transplant Presence of surgically created primary arteriovenous shunt for hemodialysis Status post peripheral artery angioplasty Status post transmetatarsal amputation of right foot Stented coronary artery (10/19/18) Social History household members: family Smoking Status: Never smoker alcohol intake: never substance use type: does not use ROS ROS Narrative General: Denies fever/chills HENT: Denies headache, denies stuffy nose, denies sore throat EYES: Denies changes in vision Resp: Denies cough, denies shortness of breath Cardiac: Denies chest pain GI: Denies abdominal pain, denies changes in bowel, denies nausea/vomiting : Denies changes in urination Extremity: Denies swelling MSK: Denies weakness Neuro: Denies any numbness/tingling Heme: Denies any bleeding or bruising Skin: Denies rashes Psychiatric: No complaints voiced Vital Signs Vital Signs Vital Signs: 12/27/24 16:53 12/27/24 17:33 12/27/24 18:44 Temperature 96.8 F L Temperature Source Temporal Pulse Rate 73 70 Respiratory Rate 16 18 Respiratory Effort Normal Non-Labored Respiratory Pattern Normal Blood Pressure 110/67 133/71 H Blood Pressure Mean 81 91 Pulse Ox 100 100 Oxygen Delivery Method Room Air Room Air 12/27/24 19:23 Temperature 98.0 F Temperature Source Pulse Rate 76 Respiratory Rate 16 Respiratory Effort Respiratory Pattern Blood Pressure 133/76 H Blood Pressure Mean 95 Pulse Ox 100 Oxygen Delivery Method Weight Weight: 66.814 kg Body Mass Index (BMI) 18.3 Physical Exam Narrative General: Alert, oriented, no apparent distress HEENT: Atraumatic, normocephalic Eyes: Anicteric, normal conjunctiva, extraocular movements grossly intact Neck: Supple Respiratory: Clear to auscultation bilaterally, normal respiratory effort Cardiovascular: Regular rate and rhythm GI: Soft, nontender, nondistended Extremities: No edema Musculoskeletal: Moving all extremities Neuro: No overt focal neurological deficits Skin: No rashes appreciated Psych: Cooperative Results Lab / Micro Data 12/27/24 17:40 12/27/24 17:50 Labs: Laboratory Results - last 24 hr 12/27/24 17:40: WBC 3.6 L, RBC 2.46 L, Hgb 6.4 L, Hct 20.8 L, MCV 84.6, MCH 26.0 L, MCHC 30.8 L, RDW Std Deviation 64.3 H, RDW Coeff of Edda 20.9 H, Plt Count 188, MPV 10.0, Immature Gran % (Auto) 1.700 H, Neut % (Auto) 82.0 H, Lymph % (Auto) 9.0 L, [place] % (Auto) 6.2, Eos % (Auto) 0.8, Baso % (Auto) 0.3, Absolute Neuts (auto) 2.9, Absolute Lymphs (auto) 0.32 L, Nucleated RBC % 0, Differential Comment SCANNED, Platelet Estimate ADEQUATE, Polychromasia 1+, Hypochromasia 1+, Anisocytosis 2+, Ovalocytes 1+, Blood Type B POSITIVE, Antibody Screen NEGATIVE 12/27/24 17:50: Sodium 138, Potassium 5.1, Chloride 115 H, Carbon Dioxide 13.2 L, Anion Gap 9, BUN 85 H, Creatinine 3.19 H, Estim Creat Clear Calc 24.44 L, Est GFR (MDRD) Non-Af 22 L, BUN/Creatinine Ratio 26.7 H, Glucose 316 H, Calcium 8.8 Assessment & Plan Assessment/Plan (1) Anemia due to chronic kidney disease: PLAN: Plan # Anemia - Chronic anemia, suspect due to his underlying kidney disease -He has required transfusions previously - Patient was sent in for blood transfusion and ED physician spoke with transplant team. It was advised no further workup was necessary but hospitalist contacted to admit the patient due to the timing of blood that would not start until around 1 AM - CBC in the a.m. - Can likely DC tomorrow - Patient is on home aspirin despite needing transfusions, will continue, does have history of stenting, this can be further adjusted at discretion of patient's outpatient physicians #Type 1 diabetes mellitus -Glucose checks and sliding scale insulin - Continue home medications # History of end-stage renal disease status post transplant - Follows at , transplant 2 months ago - BUN of 85 with creatinine of 3.19 - Continue home antirejection medications - Continue home Bactrim and valganciclovir #Chronic BPH with obstruction -Continue home medications # History of coronary artery disease with stenting - Continue home aspirin and statin #Hypertension - Continue home amlodipine, carvedilol, hydralazine #GERD -Continue PPI #DVT ppx: SCDs. Jessie No MD Charges/Coding Visit Charges Inpatient E&M: 06471 Init Hosp L2
[2024-12-27 20:39] VITALS: BP 138/77; PULSE 73; RESP 17; TEMP 36.3; O2SAT 100
[2024-12-27 20:46] VITALS: BMI 16.2
[2024-12-27 21:08] VITALS: O2SAT 100
[2024-12-27 21:35] VITALS: BP 138/77; PULSE 73
[2024-12-27] MEDS: Latanoprost 0.005% 1 Bottle 1 DRP EACH EYE (21:36)
[2024-12-27] MEDS: Dorzolamide HCL/Timolol 10 ml Bottle 1 DRP OPHTHALMIC (21:38)
[2024-12-27] MEDS: 0.9% Saline Lock 10 ML Syringe IV (21:54)
--- OUTSIDE RECORDS SUMMARY | 2024-12-27 23:32 | XMS RPT_ITS | CCD ---
Author Organization [facility] Care Team Providers Care Senior Sales Manager Name Role Phone Bianca Ann Unavailable Unavailable TANPHAICHITR, NATTHAVAT Unavailable Unavaila ble TANPHAICHITR, NATTHAVAT Unavailable Unavaila ble NO REFERRING DR Unavailable Unavailable Pending Provider Unavailable Unavailable Unknown, Referring Provider Unavailable Unav ailable Nataliia Gruber Unavailable Unavailable Pending Provider Unavailable Unavailable Dr. Ron Coronado Primary Care Provider Dr. Harman Ayala Emergency Provider Dr. Margaret Yarbrough Attending Provider Korina Graves MD Unavailable Ron Coronado MD Primary Care Provider Kirk Celeste MD Unavailable Korina Graves MD Unavailable Ron Coronado MD Primary Care Provider Hollis Celeste MDiz Unavailable Ron Coronado MD Primary Care Provider Korina Graves MD Unavailable Ron Coronado MD Primary Care Provider Roula MENDEZ, Aziz Unavailable Hollis Celeste MDiz Unavailable Roula MENDEZ Aziz Unavailable Unavailable Primary Care Provider Unavailabl e Ron Coronado MD Primary Care Provider Ron Coronado MD Primary Care Provider Pierre SIPHONER.EXHAUST EMISSIONS INSPECTOR, Mary Unavailable Parviz SIPHONER.EXHAUST EMISSIONS INSPECTOR, Montez Unavailable [phone] [place]ck, Ron Primary Care Unavailable Oleksandr, Jenaro Consulting Unavailable [place]ville, Jenaro Attending Unavailable [place], Jenaro Referring Unavailable Destinee, Jayaprakas Referring Unavailable Elderbrock, Ron Primary Care Unavailable Destinee, Jayaprakas Attending Unavailable [place]brock, Ron Primary Care Unavailable Oleksandr, Jenaro Attending Unavailable Oleksandr, Jenaro Referring Unavailable Shipman, Martha Attending Unavailable Elderbrock, Ron Primary Care Unavailable Elderbrock, Ron Referring Unavailable Elderbrock, Ron Primary Care Unavailable Elderbrock, Ron Referring Unavailable Shipman, Martha Attending Unavailable Izack Ron MENDEZ Primary Care Provider Zev MENDEZ, Geovanna Unavailable Zev MENDEZ, Geovanna Unavailable RON CORONADO Primary Care Unavaila ble ELI QUEZADA Referring Unavailable ELDERBROCK, RON YOU Primary Care Unavaila ble ELDERBROCK, RON YOU Primary Care Unavaila ble NATHAN LIZARRAGA Attending Unavailable ELDERVANDANA, RON YOU Primary Care Unavaila ble ELDERBROCK, RON YUO Primary Care Unavaila ble BROTHERS, GEOVANNA Referring Unavailable ELDERBROCK, RON YOU Primary Care Unavaila ble BROTHERS, GEOVANNA Referring Unavailable ELDERBROCK, RON YOU Primary Care Unavaila ble BRANDI CAVANAUGH Referring Unavailable ELDERBROCK, RON YOU Primary Care Unavaila ble BROTHERS, GEOVANNA Admitting Unavailable BROTHERS, GEOVANNA Attending Unavailable BROTHERS, GEOVANNA Referring Unavailable ELDERBROCK, RON YOU Primary Care Unavaila ble BROTHERS, GEOVANNA Admitting Unavailable ELI QUEZADA Attending Unavailable ISAIAH SERVIN Referring Unavailab le ELDERBROCK, RON YOU Primary Care Unavaila ble ZAIN, PAULINE L Referring Unavailable ELDERBROCK, RON YOU Primary Care Unavaila ble ELDERBROCK, RON YOU Primary Care Unavaila ble ELDERBROCK, RON YOU Primary Care Unavaila ble ELDERBROCK, RON YOU Primary Care Unavaila ble ELDERBROCK, RON YOU Primary Care Unavaila ble MONIKA NESBITT Attending Unavailable SIMONE WESTBROOK Referring Unavailable ELDERBROCK, RON YOU Primary Care Unavaila ble ELDERBROCK, RON YOU Primary Care Unavaila ble PILAR, ELI Attending Unavailable ELDERBROCK, RON YOU Primary Care Unavaila ble ELDERBROCK, RON YOU Primary Care Unavaila ble ELDERBROCK, RON YOU Primary Care Unavaila ble ELDERBROCK, RON YOU Primary Care Unavaila ble ELDERBROCK, RON YOU Primary Care Unavaila ble ELDERBROCK, RON YOU Primary Care Unavaila ble ELDERBROCK, RON YOU Primary Care Unavaila ble CHOTAI, BRANDI Attending Unavailable ELDERBROCK, RON YOU Primary Care Unavaila ble OMOREGIESIMONE Attending Unavailable ELDERBROCK, RON YOU Primary Care Unavaila ble ELDERBROCK, RON YOU Primary Care Unavaila ble ELDERBROCK, RON YOU Primary Care Unavaila ble ELDERBROCK, RON YOU Primary Care Unavaila ble ELDERBROCK, RON YOU Primary Care Unavaila ble ELDERBROCK, RON YOU Primary Care Unavaila ble ELDERBROCK, RON YOU Primary Care Unavaila ble GEOVANNA BROTHERS Referring Unavailable ELDERBROCK, RON YOU Primary Care Unavaila ble ELDERBROCK, RON YOU Primary Care Unavaila ble ELDERBROCK, RON YOU Primary Care Unavaila ble CHOTAI, PRANIT Admitting Unavailable CHOTAI, PRASULMA Attending Unavailable CHOTATigre PRADENTONT Referring Unavailable ELDERBROCK, RON YOU Primary Care Unavaila ble ELDERBROCK, RON YOU Primary Care Unavaila ble ELDERBROCK, RON YOU Primary Care Unavaila ble MONIKA NESBITT Attending Unavailable SIMONE WESTBROOK Referring Unavailable ELDERBROCK, RON YOU Primary Care Unavaila ble NATHAN LIZARRAGA Attending Unavailable ELDERBROCK, RON YOU Primary Care Unavaila ble BRITTON, MARIAA Admitting Unavailable NATHAN LIZARRAGA Attending Unavailable JOSE ENRIQUE BRADLEY Referring Unavailable ELDERBROCK, RON YOU Primary Care Unavaila ble BALABHADRYINATRUNTigre, EDUARDO P Referring Bibiana vailable ELDERBROCK, RON YOU Primary Care Unavaila ble ZEV, GEOVANNA Admitting Unavailable BROTHERS, GEOVANNA Attending Unavailable EZV GEOVANNA Referring Unavailable BOONPHENG, BOONPHIPHOP Consulting Unavailab le ELDERBROCK, RON YOU Primary Care Unavaila ble ELDERBROCK, RON YOU Primary Care Unavaila ble ELDERBROCK, RON YOU Primary Care Unavaila ble LORETOVANDANA, RON YOU Primary Care Unavaila ble BRITTON, TITOCarline Referring Unavailable CLIFF, RON YOU Primary Care Unavaila ble LORETOFRANKIESOFY, RON YOU Primary Care Unavaila ble LORETOFRANKIESOFY, RON YOU Primary Care Unavaila ble KEN PULIDO Attending Unavailable RON CORONADO Primary Care Unavaila ble CLIFF, RON YOU Primary Care Unavaila terry CORONADO, RON Schmidt Attending Unavailable RON CORONADO Primary Care Unavailable RON CORONADO Referring Unavailable RON CORONADO Primary Care Unavailable Cliff MENDEZ, Dr. Green Primary Care Provider Dr. Hamlet Bentley DO Emergency Provider Oneal MENDEZ, Dr. Roman Admit Provider Oneal MENDEZ, Dr. Roman Attending Provider Allergies Allergy Classification Reported Allergen(s) Allergy Type Date of Onset Reaction(s) Facility (16 sources) Calcium; Translations: [CALCIUM] Drug Allergy 9 [facility] (1 source) Calcium Drug Allergy 4 [facility] (1 source) NO ACTIVE ALLERGIES; Translations: [NO ACTIVE ALLERGIES] Propensity to adverse reactions (disorder) [facility] Medications Current Medications Medication Drug Class(es) Dates Sig (Normalized) Sig (Original) acetaminophen 325 mg oral tablet (20 sources) Start: 12-14-2024 Start: 12-06-2024 Start: 11-26-2024 Start: 10-16-2024 End: 11-17-2024 acetaminophen (Tylenol) 325 mg tablet Indications: pain Take 2 tablets (650 mg) by mouth every 6 hours if needed for mild pain (1 - 3) for up to 10 doses. 20 tablet 10/19/2024 11:18 AM EDT 10/16/2024 11/17/2024 Discontinued (Therapy completed) Start: 10-15-2024 End: 10-17-2024 Start: 10-20-2018 take 650 mg by mouth every six hours as needed Acetaminophen Active 650 MG PO EVERY 6 HOURS NEEDED October 20, 2018 8:44am End: 11-26-2024 take 1 tablet by mouth once daily in the morning acetaminophen (Tylenol) 500 mg tablet Take 1 tablet (500 mg) by mouth once daily in the morning. With daily Aspirin 11/26/2024 Discontinued amLODIPine 5 mg oral tablet (20 sources) Dihydropyridine Calcium Channel Krishna Start: 12-27-2024 take 1 tablet by mouth twice daily Amlodipine 5 mg tablet Active 5 mg PO TWICE A DAY December 27, 2024 12:00am Start: 12-15-2024 Start: 11-25-2024 End: 01-19-2025 Start: 05-10-2013 End: 05-13-2016 take 1 tablet by mouth once daily Amlodipine 10 MG tablet Discontinued 10 mg PO DAILY 30 0 October 11, 2015 12:00am May 13, 2016 3:01pm aspirin 81 mg chewable tablet (20 sources) Nonsteroidal Anti-inflammatory Drug Start: 10-22-2018 take 1 tablet by mouth once daily aspirin 81 mg chewable tablet Take 1 tablet by mouth once daily. 10/22/2018 Active Start: 10-20-2018 End: 03-26-2025 take 1 tablet by mouth once daily Aspirin 81 MG tablet Active 81 mg PO DAILY@0800 0 October 20, 2018 12:00am Start: 06-27-2014 End: 01-04-2016 take 1 tablet by mouth once daily ASPIR-81 81 MG TBEC One tablet by mouth daily for cardiovascular prevention ASPIRIN [id number] Lucinda Choi LPN Start: 06-27-2014 take 1 tablet by yusef th once daily ASPIR-81 81 MG TBEC One tablet by mouth daily for cardiovascular prevention ASPIRIN [id number] Ron Rosenberg DO Aspirin 81 MG TA BS Quantity: 0 Refills: 0 Ordered: 23-May-2020 DO Active Aspirin 81 MG TA BS Refills: 0 DO Active Comment on above: Take 1 tablet by yusef th once daily. atorvastatin 40 mg oral tabl et (20 sources) HMG-CoA Reductase Inhibitor Start: 11-18-2022 End: 11-17-2024 Start: 10-20-2018 End: 12-20-2021 take 1 tablet by mouth once daily at bedtime for hyperlipidemia atorvastatin (LIPITOR) 40 mg tablet Indications: Hyperlipidemia, unspecified hyperlipidemia type , History of heart artery stent Take 1 tablet by mouth daily at bedtime. For cholesterol. 90 tablet 3 12/20/2021 Active Comment on above: Take 1 tablet by yusef th daily at bedtime. For cholesterol. 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 Apply a new Dexcom G 6 Sensor after 10 days of use. 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 Apply a new Dexcom G 6 Sensor after 10 days of use. 10 Each 06/20/2022 06/20/2022 Discontinued Comment on above: 10 Each as directed. Apply a new Dexcom G 6 Sensor after 10 days of use. brimonidine tartrate 2 mg/ml / timolol 5 mg/ml ophthalmic solution (20 sources) alpha-Adrenergic Agonist, beta-Adrenergic Krishna Start: 12-06-2021 End: 12-08-2023 take 1 drop(s) into the eye(s) twice daily COMBIGAN 0.2-0.5 % ophthalmic solution Instill 1 drop in both eyes twice a day 12/06/2021 Active Start: 10-09-2015 End: 04-16-2016 take 1 drop(s) into the eye(s) twice daily Brimonidine-Timolol (Combigan) 1 DROP bottle Discontinued 1 NMA Each Eye TWICE A DAY October 09, 2015 12:00am April 16, 2016 3:23pm Comment on above: Instill 1 drop in fanta th eyes twice a day calcitriol 0.96909 mg oral capsule (20 sources) Vitamin D3 Analog Start: 10-19-2024 End: 10-29-2025 take 1 capsule by mouth once daily Calcitriol 0.25 mcg capsule Active 0.25 ug PO DAILY December 27, 2024 12:00am calcium carbonate 500 mg chewable tablet (8 sources) Start: 12-09-2024 End: 01-08-2025 Start: 10-17-2024 End: 10-17-2024 carvedilol 25 mg oral tablet (20 sources) alpha-Adrenergic Krishna, beta-Adrenergic Krishna Start: 10-18-2024 End: 10-29-2025 take 1 tablet by mouth twice daily Carvedilol 25 mg tablet Active 25 mg PO TWICE A DAY December 27, 2024 12:00am Start: 10-18-2024 End: 10-18-2024 cholecalciferol 0.05 mg oral capsule (20 sources) Vitamin D Start: 11-26-2024 End: 03-26-2025 take 1 capsule by mouth once daily Cholecalciferol (Vitamin D3) 50 mcg (2,000 unit) capsule Active 50 ug PO DAILY December 27, 2024 12:00am AM Start: 11-26-2024 End: 03-26-2025 Start: 11-25-2024 50 mcg, oral, Daily, First dose on Brianna 11/25/24 at 1215, Indications: vitamin D deficiency Start: 10-18-2024 End: 11-26-2024 take 1 capsule by mouth once in the morning cholecalciferol (Vitamin D-3) 50 mcg (2,000 unit) capsule Indications: vitamin D deficiency Take 1 capsule by mouth early in the morning.. 11/26/2024 Discontinued take 1 capsule by mo uth in the morning cholecalciferol (Vitamin D-3) 50 mcg (2,000 unit) capsule Take 1 capsule (50 mcg) by mouth early in the morning.. Active clotrimazole 10 mg oral lozenge (20 sources) Azole Antifungal Start: 12-27-2024 Clotrimazole 10 mg amanda Active 10 mg MUCOUS MEM THREE TIMES A DAY December 27, 2024 12:00am Start: 10-16-2024 End: 01-08-2025 Dialyvite 800-Ultra D 0.8-2,000 mg-unit tablet (7 sources) Start: 07-07-2023 take 0.8-2000 mg by mouth once in the morning Dialyvite 800-Ultra D 0.8-2,000 mg-unit tablet Take 1 tablet by mouth early in the morning.. 07/07/2023 Active dorzolamide 20 mg/ml / timolol 5 mg/ml ophthalmic solution (20 sources) Carbonic Anhydrase Inhibitor, beta-Adrenergic Krishna Start: 12-27-2024 Dorzolamide-Timol ol 22.3-6.8 mg/mL drops Active 1 NMA OPHTHALMIC TWICE A DAY December 27, 2024 12:00am Start: 11-24-2024 1 drop, Both E yes, 2 times daily, First dose on Fri11/24/24 at 2230, Indications: ocular hypertension Start: 10-01-2023 Start: 10-01-2023 take 1 drop(s) into the eye(s) twice daily dorzolamide-timoloL (Cosopt) 22.3-6.8 mg/mL ophthalmic solution Indications: ocular hypertension Instill 1 drop in both eyes twice a day 10/01/2023 Suspended Fa-Vit Ocwfk-E-Oyvj-Vitamin D3 [Folic Acid 0.8 Mg-Vit B Comp With E-Rekl-Cztviuz D3 2,000 Unit Tablet] (Folic Acid 0.8 Mg-Vit B Comp With K-Cieq-Aqlteyo ) 0.8-2,000 mg-unit tablet (1 source) Start: 12-27-2024 take 0.8-2000 mg by mouth once daily Fa-Vit Qqdmb-W-Lopt-Vitamin D3 [Folic Acid 0.8 Mg-Vit B Comp With X-Itdp-Rpmnpav D3 2,000 Unit Tablet] (Folic Acid 0.8 Mg-Vit B Comp With Y-Ydry-Vnqjmnc ) 0.8-2,000 mg-unit tablet Active 1 {tbl} PO DAILY December 27, 2024 12:00am furosemide 40 mg oral tablet (20 sources) Loop Diuretic Start: 12-09-2024 End: 01-08-2025 take 1 tablet by mouth twice daily Furosemide 40 mg tablet Active 40 mg PO TWICE A DAY December 27, 2024 12:00am Start: 12-08-2024 take 80 mg by mouth twice gael y 80 mg, oral, 2 times daily (morning and late afternoon), First dose on Fri12/08/24 at 1015 Start: 12-06-2024 80 mg, intrave nous, Once, On Fri12/06/24 at 1720, For 1 dose Start: 11-24-2024 take 20 mg intravenously once 20 mg, intravenous, Once, On Fri11/24/24 at 2130, For 1 dose, For doses less than or = 160 mg, give IV push at maximum rate of 40 mg/min For doses greater than 160 mg, dilute in 50 mL and administer at 4 mg/min Start: 11-03-2024 End: 01-02-2025 take 1 tablet by mouth once daily furosemide (Lasix) 4 0 mg tablet Indications: hypertension Take 1 tablet (40 mg) by mouth once daily. 30 tablet 1 11/03/2024 12/09/2024 Discontinued Start: 10-20-2024 Start: 10-18-2024 End: 11-18-2024 take 2 tablets by mouth twice daily furosemide (Lasix) 40 mg tablet Indications: hypertension Take 2 tablets (80 mg) by mouth 2 times daily (morning and late afternoon). 120 tablet 10/19/2024 11:18 AM EDT 10/19/2024 11/03/2024 Discontinued (Reorder) Start: 10-15-2024 End: 10-18-2024 50 ml glucose 500 mg/ml prefilled syringe (6 sources) Start: 12-06-2024 12.5 g, intrav enous, Every 15 min PRN, For blood glucose 41 to 70 mg/dL, Starting on Fri12/06/24 at 2343, May repeat until blood glucose level reaches 100 mg/dL or greater. Push 2 - 3 mL/minute if patient has secure IV access. Start: 11-24-2024 Start: 10-15-2024 1 ml heparin sodium, porcine 5000 unt/ml injection (2 sources) Unfractionated Heparin, Anti-coagulant Start: 12-14-2024 Start: 12-07-2024 inject 5000 [IU] by subcutaneous injection every eight hours 5,000 Units, subcutaneous, Every 8 hours, First dose on Fri12/07/24 at 0030 1 ml hydrALAZINE hydrochloride 20 mg/ml injection (20 sources) Arteriolar Vasodilator Start: 12-15-2024 take 10 mg intravenously every six hours as needed Start: 11-25-2024 take 1 tablet by yusef th every eight hours as needed 25 mg, oral, Every 8 hours PRN, For SBP >160, Starting on Brianna 11/25/24 at 1618 Start: 10-17-2024 End: 10-17-2024 take 10 mg intravenously every six hours as needed Start: 07-06-2017 End: 10-21-2024 take 1 tablet by mouth three times daily Hydralazine 100 MG tablet Active 100 mg PO THREE TIMES A DAY July 06, 2017 1:00am hypertentsion Start: 09-30-2014 take 2 tablets by mo uth three times daily HYDRALAZINE HCL 50 MG TABS Two tablets by mouth three times daily HYDRALAZINE HCL [id number] Ron Rosenberg DO Start: 05-10-2013 End: 09-16-2014 take 1 tablet by mouth three times daily Hydralazine 50 MG tablet Discontinued 50 mg PO THREE TIMES A DAY 90 0 February 12, 2014 11:18am September 16, 2014 1:31pm hydrALAZINE HCl TABS Quantity: 0 Refills: 0 Ordered: 23-May-2020 DO Active hydrALAZINE HCl TABS Refills: 0 DO Active hydrALAZINE HCl TABS Refills: 0 Active Comment on above: Take 1 tablet by yusef th three times daily. TAKE 1 TABLET BY YUSEF TH THREE TIMES DAILY Take 1 tablet by yusef th three times a day. insulin degludec 100 unt/ml injectable solution (7 sources) Insulin Analog Start: 12-15-2024 Start: 12-09-2024 End: 04-28-2025 Insulin Degludec 100 unit/mL (3 mL) insulin pen (1 source) Start: 12-27-2024 Insulin Deglud ec 100 unit/mL (3 mL) insulin pen Active 10 U SC DAILY December 27, 2024 12:00am AM insulin glargine 100 unt/ml injectable solution (20 sources) Insulin Analog Start: 12-16-2024 Start: 12-15-2024 End: 12-16-2024 Start: 12-07-2024 End: 12-07-2024 10 Units, subcutaneous, Once , On Fri12/07/24 at 1415, For 1 dose, Do not hold basal insulin, contact provider if there is any concern for hypoglycemia. Start: 12-07-2024 take 10 [IU] by mout h once daily in the morning 10 Units, subcutaneous, Every morning, First dose on Fri12/07/24 at 0900, Long-acting insulin should be given regardless of PO intake. Consider dose reduction if concerned for NPO or glucose trending less than 100 mg/dL. Start: 11-25-2024 take 8 [IU] by mouth once daily 8 Units, subcutaneous, Daily, First dose on Brianna 11/25/24 at 0900, Long-acting insulin should be given regardless of PO intake. Consider dose reduction if concerned for NPO or glucose trending less than 100 mg/dL. 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 15 mL 3 11/11/2023 Active Start: 07-10-2023 insulin glargi ne (BASAGLAR KWIKPEN U-100 INSULIN) 100 unit/mL (3 mL) Inject 16 Units subcutaneously every 24 hours. 15 mL 3 07/10/2023 Active Start: 06-10-2023 End: 07-10-2023 insulin glargine (LANTUS EVAN OSTAR U-100 INSULIN) 100 unit/mL (3 mL) Inject 16 Units subcutaneously daily at bedtime. 15 mL 1 06/10/2023 07/10/2023 Discontinued Start: 05-10-2013 End: 05-11-2013 Insulin Glargine (Lantus Evan ostar Pen) 100 UNITS/ML Pen Discontinued 4 U SC AT BEDTIME May 10, 2013 1:00am May 11, 2013 1:44pm Start: 05-10-2013 End: 05-11-2013 Insulin Glargine (Lantus Evan ostar Pen) 100 UNITS/ML Pen Discontinued 4 UNITS SC AT BEDTIME May 10, 2013 1:00am May 11, 2013 1:44pm insulin glargine (Basaglar KwikPen U-100 Insulin) 100 unit/mL (3 mL) pen Inject 14 Units under the skin once daily in the morning. Take as directed per insulin instructions. Active Comment on above: Inject 16 Units subc utaneously every 24 hours. Inject 16 Units subc utaneously daily at bedtime. Inject 14 Units subc utaneously every 24 hours. 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 Inject once daily (for Lantus) Dx: Diabetes Type I with renal manifestations . 254.43 100 Syringe 3 06/24/2013 Active Comment on above: Inject 1 Each subcut aneously daily at bedtime. Inject once daily (for Lantus) Dx: Diabetes Type I with renal manifestations . 254.43 3 ml insulin aspart, human 100 unt/ml pen injector (20 sources) Insulin Analogue Start: 12-27-2024 Insulin Aspart U-100 100 unit/mL (3 mL) insulin pen Active 2 U SC THREE TIMES A DAY December 27, 2024 12:00am Start: 11-27-2024 End: 06-06-2025 Start: 10-19-2024 End: 05-13-2025 insulin aspart (NovoLOG Flex pen U-100 Insulin) 100 unit/mL (3 mL) pen Indications: type 2 diabetes mellitus Inject 4 Units under the skin 3 times a day before meals. Inject 4 units for breakfast, lunch, and dinner. Check blood sugar & follow sliding scale. 0 unit(s) if Blood glucose is between 71-150; 1 unit(s) for 151-200; 2 unit(s) for 201-250; 3 unit(s) for 251-300; 4 unit(s) for 301-350; 5 unit(s) for 351-400 (up to 50 units/day) 11/27/2024 05/13/2025 Suspended Start: 10-19-2024 Start: 04-16-2016 End: 05-13-2016 Insulin Aspart U-100 (Novolo g Flexpen U-100 Insulin) 100 UNITS/ML Flexpen Discontinued 11 U SC THREE TIMES DAILY BEFORE MEALS 0 April 16, 2016 1:00am May 13, 2016 3:01pm Start: 04-11-2016 End: 04-16-2016 Insulin Aspart U-100 (Novolo g Flexpen (Bkc)) 100 UNITS/ML Flexpen Discontinued 8 U SC 3 TIMES DAILY WITH MEALS April 11, 2016 12:00am April 16, 2016 3:20pm Start: 01-04-2016 take 6 [IU] by subcu taneous injection in the morning NOVOLOG FLEXPEN 100 UNIT/ML SOPN 6 units SQ in AM with breakfast, 6U sq with lunch, 8U sq with supper INSULIN ASPART [id number] Lucinda Choi LPN Start: 10-11-2015 End: 03-17-2016 Insulin Aspart U-100 (Novolo g Flexpen U-100 Insulin) 100 UNITS/ML Flexpen Discontinued 6 U SC WITH BREAKFAST 0 January 03, 2016 12:00am March 17, 2016 2:29pm Start: 10-09-2015 End: 10-11-2015 Insulin Aspart U-100 (Novolo g Flexpen) 100 UNITS/ML Flexpen Discontinued 12 U SQ WITH DINNER October 09, 2015 12:00am October 11, 2015 11:50am Start: 10-09-2015 End: 01-03-2016 inject 10 [IU] by subcutaneous injection at lunch Insulin Aspart U-100 (Novolog Flexpen U-100 Insulin) 100 UNITS/ML Flexpen Discontinued 10 U SQ WITH LUNCH October 09, 2015 12:00am January 03, 2016 2:55pm Start: 10-09-2015 End: 01-03-2016 inject 6 [IU] by subcutaneous injection at breakfast Insulin Aspart U-100 (Novolog Flexpen U-100 Insulin) 100 UNITS/ML Flexpen Discontinued 6 U SQ WITH BREAKFAST October 09, 2015 12:00am January 03, 2016 2:55pm Start: 06-27-2014 take 6 [IU] by subcu taneous injection in the morning, then take 10 [IU] by subcutaneous injection at lunch, then take 12 [IU] by subcutaneous injection at dinner NOVOLOG FLEXPEN 100 UNIT/ML SOPN 6 units SQ in AM with breakfast, 10 units with lunch, 12 units with dinner INSULIN ASPART [id number] Ron Rosenberg DO isopropyl alcohol 0.7 ml/ml medicated pad (14 sources) Start: 11-18-2024 Start: 11-18-2024 alcohol swabs (Alcohol Pads) Indications: type 1 diabetes mellitus Use 4-8 per day to check blood glucose and for injectable medications 400 each 3 11/18/2024 Suspended latanoprost 0.05 mg/ml ophthalmic solution (20 sources) Prostaglandin Analog Start: 07-06-2017 End: 06-22-2024 1 drop, Both Eyes, Nightly, First dose on Brianna 11/25/24 at 2100, Indications: ocular hypertension latanoprost (Xal atan) 0.005 % ophthalmic solution Indications: ocular hypertension Administer 1 drop into affected eye(s). Active take 1 drop(s) into the eye(s) once daily at bedtime latanoprost (XALATAN) 0.005 % ophthalmic solution Use 1 Drop in both eyes daily at bedtime. 0 Active LATANOPROST 0.00 5 % SOLN 1 gtt each eye qhs LATANOPROST [id number] Lucinda Choi [employer] Comment on above: Use 1 Drop in both e yes daily at bedtime. loperamide hydrochloride 2 mg oral capsule (1 source) Opioid Agonist Start: 5 take 2 mg by mouth four times daily as needed for diarrhea 2 mg, oral, 4 times daily PRN, diarrhea, Starting on Fri12/08/24 at 0754 losartan potassium 50 mg oral tablet (20 sources) Angiotensin 2 Receptor Krishna Start: 9 take 1 tablet by mouth once daily losartan (COZAAR) 50 mg tablet Take 1 tablet by mouth once daily. 30 tablet 11 04/08/2019 Active Start: 05-31-2014 End: 06-03-2014 take 1 tablet by mouth once daily Losartan 25 MG tablet Discontinued 25 mg PO DAILY May 31, 2014 1:00am June 03, 2014 5:29pm Start: 05-10-2013 End: 02-13-2014 take 1 tablet by mouth once daily Losartan 25 MG tablet Discontinued 25 mg PO DAILY May 10, 2013 1:00am February 13, 2014 2:24pm Comment on above: Take 1 tablet by [facility] once daily. methocarbamol 500 mg oral tablet (2 sources) Muscle Relaxant Start: 2 take 500 mg by mouth four times daily as needed Methocarbamol Active 500 MG PO 4 TIMES DAILY NEEDED 38 September 12, 2021 2:49am mycophenolate mofetil 250 mg oral capsule (20 sources) Start: 5 take 1 capsule by mouth every twelve hours Mycophenolate Mofetil 250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 Lymphocytes (Bld) [#/Vol] 0.54 x10*3/uL Low 1.20-4.80 [facility] Comment on above: Performed By: #### 5 7021-8 ####JASON Carrasquillo ([id number])[facility] ([facility])[address] [place] [address] Lymphocytes/100 WBC (Bld) 13.5 % Normal 13.0-44.0 [facility] Comment on above: Performed By: #### 5 7021-8 ####JASON Carrasquillo ([id number])[facility] ([facility])[address] [place] [address] MCH (RBC) [Entitic mass] 26.1 pg Normal 26.0-34.0 [facility] Comment on above: Performed By: #### 5 7021-8 ####JASON Carrasquillo ([id number])[facility] ([facility])[address] [place] [address] MCHC (RBC) [Mass/Vol] 31.0 g/dL Low 32.0-36.0 [facility] Comment on above: Performed By: #### 5 7021-8 ####JASON Carrasquillo ([id number])[facility] ([facility])[address] [place] [address] MCV (RBC) [Entitic vol] 84 fL Normal 80-100 [facility] Comment on above: Performed By: #### 5 7021-8 ####JASON Carrasquillo ([id number])[facility] ([facility])[address] [place] [address] Monocytes (Bld) [#/Vol] 0.31 x10*3/uL Normal 0.10-1.00 [facility] Comment on above: Performed By: #### 5 7021-8 ####JASON Carrasquillo ([id number])[facility] ([facility])[address] [place] [address] Monocytes/100 WBC (Bld) 7.8 % Normal 2.0-10.0 [facility] Comment on above: Performed By: #### 5 7021-8 ####JASON Carrasquillo ([id number])[facility] ([facility])[address] [place] [address] Neutrophils (Bld) [#/Vol] 3.04 x10*3/uL Normal 1.20-7.70 [facility] Comment on above: Result Comment: Perc ent differential counts (%) should be interpreted in the context of the absolute cell counts (cells/uL). Performed By: #### 5 7021-8 ####JASON JENNINGS L ([id number])[facility] ([facility])[address] [place] [address] Neutrophils/100 WBC (Bld) 76.1 % Normal 40.0-80.0 [facility] Comment on above: Performed By: #### 5 7021-8 ####JASON Carrasquillo ([id number])[facility] ([facility])[address] [place] [address] Nucleated RBC/100 WBC (Bld) [Ratio] 0.0 /100 WBCs Normal 0.0-0.0 [facility] Comment on above: Performed By: #### 5 7021-8 ####JASON CLARKMOZAY L ([id number])[facility] ([facility])[address] [place] [address] Platelets (Bld) [#/Vol] 133 x10*3/uL Low 150-450 [facility] Comment on above: Performed By: #### 5 7021-8 ####JASON JENNINGS L ([id number])[facility] ([facility])[address] [place] [address] RBC (Bld) [#/Vol] 2.91 x10*6/uL Low 4.50-5.90 [facility] Comment on above: Performed By: #### 5 7021-8 ####JASON Carrasquillo ([id number])[facility] ([facility])[address] [place] [address] WBC (Bld) [#/Vol] 4.0 x10*3/uL Low 4.4-11.3 [facility] Comment on above: Performed By: #### 5 7021-8 ####JASON TOSHIAZAY Carrasquillo ([id number])[facility] ([facility])[address] [place] [address] [facility] -------- THOM CHAPIN ([id number]) 1970 M Date Time Provider Department 12/21/24 [facility] COR[facility] During your visit today, we recorded the following information about you: Argentina Escobar LPN 12/21/2024 1:41 PM Signed Pt calls (along with Patria who is with [facility]) calls to ask if office could try again to get PA for more transportation. Patria is asking for office to call [facility] @ [phone] and stay on the line until you get a live person. Patria requests then let them know pt needs PA for more transportation. Pt's ID: [id number]. Patria reports pt currently will run out of rides by 12/27. Pt has to get labs on M AND , infusion on Fri. Depending on the lab results he might have to go to the hospital. Dialysis is as needed. Patria also reports that insurance might try to have pt use [employer] but pt has had bad experiences with them and does not want to use them. Call pt with outcome. Argentina ALLYSSA Escobar Kathryn, [place] 12/23/2024 10:06 AM Addendum Called number provided below, waited and was finally able to get to a live person after dealing with automatic prompts. Was told that that number does not handle transportation claims/PA and was given number for transportation of [phone]. After dealing with prompts was able to speak with a live person. Gave them pt ID number provided below, address, full name, , and phone number and was told that there were no pt with that information. I called pt and notified him of this. Advised him that when I tried to call and handle this for him the first time 12/06/24 I had the same issues. Advised pt that he could have them call office directly or have them fax something to our office. Fax number to office given to pt. IF THE COMPANY CALLS OFFICE DIRECTLY PLEASE ROUTE THE CALL TO DR. CORONADO'S OFFICE SO WE CAN SPEAK WITH THEM. Penny Candelario MA 12/23/2024 10:58 AM Signed [facility] called office back. Advised MA that we need to go to [employer] and log into the provider portal. I made an account but will not allow me to access authorizations. Spoke with Bianca who stated access to care phone number is [phone] PA provider services phone number is [phone] option 1 Pt ID# is [id number] Bianca spoke with her pit supervisor Jennifer who has faxed the PA form to our office to complete and fax back to them at . Form on PCPs desk. ROLA Kwong Kathryn, MA 12/23/2024 4:59 PM Signed Form completed and faxed back to . ROLA Kwong Kathryn, [place] 12/24/2024 11:26 AM Signed Received fax back stating that the PA is unable to be processed due to missing information. They are requesting: Date of Service CPT codes ICD-10 codes Diagnosis Total # of units The transportation is for pt to get to, lab on AND Th, infusion on Fri. Depending on the lab results he might have to go to the hospital. Dialysis is as needed. PA form on PCP's desk. If unable to complete do you want Occupational Rehabilitation Aide to see about helping pt with transportation? Penny Candelario MA Allergies As of Date: 12/21/2024 (No Known Allergies) Date Reviewed: 06/22/2024 Reviewed by: Penny Candelario MA - Fully Assessed Reason for Visit: Insurance Authorization [[id number]] Prescriptions as of 12/24/2024 - atorvastatin (LIPITOR) 40 mg tablet Take 1 tablet by mouth daily at bedtime. For cholesterol. - magnesium oxide (MAG-OX) 400 mg (241.3 mg magnesium) tablet Take 1 tablet by mouth two times a day. - hydrALAZINE (APRESOLINE) 100 mg tablet Take 1 tablet by mouth three times a day. - sevelamer carbonate (RENVELA) 800 mg tablet Take 1 tablet by mouth three times a day with meals. - metoprolol tartrate, short acting, (LOPRESSOR) 25 mg tablet Take 1 tablet by mouth two times a day. - Insulin Clio, Disposable, (PEN NEEDLE) 32 gauge x 5/32 Give with each insulin administration once in the am and once in the pm - insulin glargine (BASAGLAR KWIKPEN U-100 INSULIN) 100 unit/mL (3 mL) Inject 14 Units subcutaneously every 24 hours. - sildenafil (VIAGRA) 50 mg tablet Take 1 tablet by mouth as needed. Take one hour prior to sexual activity - Insulin Clio, Disposable, (PEN NEEDLE) 32 gauge x 5/32 Inject 1 Each subcutaneously every 24 hours. Give with each insulin administration. - Insulin Clio, Disposable, (UNIFINE PENTIPS PLUS) 31 gauge x 3/16 USE TWICE DAILY DIRECTED FOR INSULIN - Blood-Glucose Sensor (DEXCOM G6 SENSOR) latesha 10 Each as directed. Apply a new Dexcom G 6 Sensor after 10 days of use. - COMBIGAN 0.2-0.5 % ophthalmic solution Instill 1 drop in both eyes twice a day - timoloL maleate (TIMOPTIC) 0.5 % ophthalmic solution Use 1 Drop in both eyes twice daily. - losartan (COZAAR) 5 (more content not included)... Normal [facility] Glucose Test strip manual (B ld) [Mass/Vol]on 12-21-2024 Glucose [Mass/Vol] 192 mg/dL High 74 - 99 mg/dL [facility] Interpretation and review of laboratory results Abnormal [facility] Glucose [Mass/Vol] 192 mg/dL High 74-99 [facility] Comment on above: Performed By: #### 2 341-6 ####JASON Carrasquillo ([id number])[facility] ([facility])[id number] [place] [address] Magnesiumon 12-21-2024 Magnesium [Mass/Vol] 1.89 mg/dL 1.60 - 2.40 mg/dL [facility] Magnesium [Mass/Vol] 1.89 mg/dL Normal 1.60-2.40 [facility] Comment on above: Performed By: #### 1 9123-9 ####JASON Carrasquillo ([id number])[facility] ([facility])[address] [place] [address] Magnesium [Mass/Vol]on 12-21 Interpretation and review of laboratory results Normal [facility] No Panel Informationon 12-[address] [facility] Renal function 2000 panelon 12-21-2024 Albumin BCP dye [Mass/Vol] 3 g/dL Low 3.4 - 5.0 g/dL [facility] Anion gap [Moles/Vol] 11 mmol/L 10 - 20 mmol/L [facility] Calcium [Mass/Vol] 8.3 mg/dL Low 8.6 - 10. 6 mg/dL [facility] Chloride [Moles/Vol] 105 mmol/L 98 - 10 7 mmol/L [facility] CO2 [Moles/Vol] 20 mmol/L Low 21 - 32 mmol/L [facility] Creatinine [Mass/Vol] 3.1 mg/dL High 0.50 - 1.30 mg/dL [facility] GFR/1.73 sq M.predicted among non-blacks MDRD (S/P/Bld) [Vol rate/Area] 23 mL/min/{1.73_m2} Low - PINF [facility] Glucose [Mass/Vol] 238 mg/dL High 74 - 99 mg/dL [facility] Interpretation and review of laboratory results Abnormal [facility] Phosphate [Mass/Vol] 4.1 mg/dL 2.5 - 4 .9 mg/dL [facility] Potassium [Moles/Vol] 4.5 mmol/L 3.5 - 5.3 mmol/L [facility] Sodium [Moles/Vol] 131 mmol/L Low 136 - 145 mmol/L [facility] Urea nitrogen [Mass/Vol] 66 mg/dL High 6 - 23 mg/dL [facility] Albumin BCP dye [Mass/Vol] 3.0 g/dL Low 3.4-5.0 [facility] Comment on above: Performed By: #### 2 4362-6 ####JASON Carrasquillo ([id number])[facility] ([facility])[address] [place] [address] Anion gap [Moles/Vol] 11 mmol/L Normal 10-20 [facility] Comment on above: Performed By: #### 2 4362-6 ####JASON Carrasquillo ([id number])[facility] ([facility])[address] [place] [address] Calcium [Mass/Vol] 8.3 mg/dL Low 8.6-10.6 [facility] Comment on above: Performed By: #### 2 4362-6 ####JASON JENNINGS L ([id number])[facility] ([facility])[address] [place] [address] Chloride [Moles/Vol] 105 mmol/L Normal 98-107 [facility] Comment on above: Performed By: #### 2 4362-6 ####JASON JENNINGS L ([id number])[facility] ([facility])[address] [place] [address] CO2 [Moles/Vol] 20 mmol/L Low 21-32 [facility] Comment on above: Performed By: #### 2 4362-6 ####JASON JENNINGS L ([id number])[facility] ([facility])[address] [place] [address] [place] [address] Creatinine [Mass/Vol] 3.10 mg/dL High 0.50-1.30 [facility] Comment on above: Performed By: #### 2 4362-6 ####JASON Carrasquillo ([id number])[facility] ([facility])[address] [place] [address] Glomerular filtration rate/1.73 sq M.predicted 23 mL/min/1.73m*2 Low >60 [facility] Comment on above: Result Comment: Calc ulations of estimated GFR are performed using the 2020 CKD-EPI Study Refit equation without the race variable for the IDMS-Traceable creatinine methods.https://jasn.asnjournals.org/content/early// N.9084749650 Performed By: #### 2 4362-6 ####JASON Carrasquillo ([id number])[facility] ([facility])[address] [place] [address] Glucose [Mass/Vol] 238 mg/dL High 74-99 [facility] Comment on above: Performed By: #### 2 4362-6 ####JASON Carrasquillo ([id number])[facility] ([facility])[address] [place] [address] Phosphate [Mass/Vol] 4.1 mg/dL Normal 2.5-4.9 [facility] Comment on above: Performed By: #### 2 4362-6 ####JASON Carrasquillo ([id number])[facility] ([facility])[address] [place] [address] Potassium [Moles/Vol] 4.5 mmol/L Normal 3.5-5.3 [facility] Comment on above: Performed By: #### 2 4362-6 ####JASON Carrasquillo ([id number])[facility] ([facility])[address] [place] [address] Sodium [Moles/Vol] 131 mmol/L Low 136-145 [facility] Comment on above: Performed By: #### 2 4362-6 ####JASON Carrasquillo ([id number])[facility] ([facility])[address] [place] [address] Urea nitrogen [Mass/Vol] 66 mg/dL High 6-23 [facility] Comment on above: Performed By: #### 2 4362-6 ####JASON Carrasquillo ([id number])[facility] ([facility])[address] [place] [address] Tacrolimuson 12-21-2024 Tacrolimus (Bld) [Mass/Vol] 5 ng/mL NINF - 15.0 ng/mL [facility] Work Phone: Tacrolimus (Bld) [Mass/Vol] 5.0 ng/mL Normal <=15.0 [facility] Comment on above: Order Comment: NOTE: Result was obtained using achemiluminescent microparticle immunoassay(CMIA) on the [employer] i system.Optimal therapeutic ranges for immunosuppressantdrugs depend upon an individualpatient's current clinical state, type oforgan transplant, time post-transplant,co-administration of other immunosuppressants,and other clinical factors. The results ofthis test should be correlated with additionalclinical and laboratory data before changesin treatment regimens are made. Performed By: #### 1 1253-2 ####JASON Carrasquillo ([id number])[facility] ([facility])[address] [place] [address] Tacrolimus (Bld) [Mass/Vol]o n 12-21-2024 Interpretation and review of laboratory results Normal [facility] Work Phone: [facility] Work Phone: [facility] Work Phone: Blood type and Indirect anti body screen panel (Bld)on 12-20-2024 ABO group Nom (Bld) [facility] Ql Negative [facility] D Ag Ql (Bld) Positive [facility] ABO group Nom (Bld) B Normal [facility] Comment on above: Performed By: #### 3 4532-2 ####JASON Carrasquillo ([id number])[facility] ([facility])[address] [place] [address] Blood group antibody screen Ql Negative Normal [facility] Comment on above: Performed By: #### 3 4532-2 ####JASON Carrasquillo ([id number])[facility] ([facility])[address] [facility] [place] [address] D Ag Ql (Bld) Positive Normal [facility] Comment on above: Performed By: #### 3 4532-2 ####JASON Carrasquillo ([id number])[facility] ([facility])[address] [place] [address] CBC W Auto Differential pane l (Bld)on 12-20-2024 Basophils (Bld) [#/Vol] 0.01 10*3/uL [facility] Basophils/100 WBC (Bld) 0.3 % 0.0 - 2.0 % [facility] Eosinophils (Bld) [#/Vol] 0.07 10*3/uL [facility] Eosinophils/100 WBC (Bld) 1.9 % 0.0 - 6.0 % [facility] Erythrocyte distribution width (RBC) [Ratio] 19.1 % High 11.5 - 14.5 % [facility] Hematocrit (Bld) [Volume fraction] 25.4 % Low 41.0 - 52.0 % [facility] Hemoglobin (Bld) [Mass/Vol] 7.6 g/dL Low 13.5 - 17.5 g/dL [facility] Immature granulocytes (Bld) [#/Vol] 0.03 10*3/uL [facility] Immature granulocytes/100 WBC (Bld) 0.8 % 0.0 - 0.9 % [facility] Interpretation and review of laboratory results Abnormal [facility] Lymphocytes (Bld) [#/Vol] 0.48 10*3/uL Low [facility] Lymphocytes/100 WBC (Bld) 13.3 % 13.0 - 44.0 % [facility] MCH (RBC) [Entitic mass] 25.2 pg Low 26.0 - 34.[address] [facility] MCHC (RBC) [Mass/Vol] 29.9 g/dL Low 32.0 - 36.0 g/dL [facility] MCV (RBC) [Entitic vol] 84 fL 80 - [address] [facility] Monocytes (Bld) [#/Vol] 0.27 10*3/uL [facility] Monocytes/100 WBC (Bld) 7.5 % 2.0 - 10.0 % [facility] Neutrophils (Bld) [#/Vol] 2.74 10*3/uL [facility] Neutrophils/100 WBC (Bld) 76.2 % 40.0 - 80.0 % [facility] Nucleated RBC/100 WBC (Bld) [Ratio] 0 % [facility] Platelets (Bld) [#/Vol] 145 10*3/uL Low [facility] RBC (Bld) [#/Vol] 3.01 10*6/uL Low [facility] WBC (Bld) [#/Vol] 3.6 10*3/uL [facility] Basophils (Bld) [#/Vol] 0.01 x10*3/uL Normal 0.00-0.10 [facility] Comment on above: Performed By: #### 5 7021-8 ####JASON Carrasquillo ([id number])[facility] ([facility])[address] [place] [address] Basophils/100 WBC (Bld) 0.3 % Normal 0.0-2.0 [facility] Comment on above: Performed By: #### 5 7021-8 ####JASON JENNINGS L ([id number])[facility] ([facility])[address] [place] [address] Eosinophils (Bld) [#/Vol] 0.07 x10*3/uL Normal 0.00-0.70 [facility] Comment on above: Performed By: #### 5 7021-8 ####JASON Carrasquillo ([id number])[facility] ([facility])[address] [place] [address] Eosinophils/100 WBC (Bld) 1.9 % Normal 0.0-6.0 [facility] Comment on above: Performed By: #### 5 7021-8 ####JASON Carrasquillo ([id number])[facility] ([facility])[address] [place] [address] Erythrocyte distribution width (RBC) [Ratio] 19.1 % High 11.5-14.5 [facility] Comment on above: Performed By: #### 5 7021-8 ####JASON Carrasquillo ([id number])[facility] ([facility])[address] [place] [address] Hematocrit (Bld) [Volume fraction] 25.4 % Low 41.0-52.0 [facility] Comment on above: Performed By: #### 5 7021-8 ####JASON Carrasquillo ([id number])[facility] ([facility])[address] [place] [address] Hemoglobin (Bld) [Mass/Vol] 7.6 g/dL Low 13.5-17.5 [facility] Comment on above: Performed By: #### 5 7021-8 ####JASON Carrasquillo ([id number])[facility] ([facility])[address] [place] [address] Immature granulocytes (Bld) [#/Vol] 0.03 x10*3/uL Normal 0.00-0.70 [facility] Comment on above: Performed By: #### 5 7021-8 ####JASON Carrasquillo ([id number])[facility] ([facility])[address] [place] [address] Immature granulocytes/100 WBC (Bld) 0.8 % Normal 0.0-0.9 [facility] Comment on above: Result Comment: Shantell ture Granulocyte Count (IG) includes promyelocytes, myelocytes and metamyelocytes but does not include bands. Percent differential counts (%) should be interpreted in the context of the absolute cell counts (cells/UL). Performed By: #### 5 7021-8 ####JASON Carrasquillo ([id number])[facility] ([facility])[address] [place] [address] Lymphocytes (Bld) [#/Vol] 0.48 x10*3/uL Low 1.20-4.80 [facility] Comment on above: Performed By: #### 5 7021-8 ####JASON Carrasquillo ([id number])[facility] ([facility])[id number] [place] [address] Lymphocytes/100 WBC (Bld) 13.3 % Normal 13.0-44.0 [facility] Comment on above: Performed By: #### 5 7021-8 ####JASON Carrasquillo ([id number])[facility] ([facility])[address] [place] [address] MCH (RBC) [Entitic mass] 25.2 pg Low 26.0-34.0 [facility] Comment on above: Performed By: #### 5 7021-8 ####JASON Carrasquillo ([id number])[facility] ([facility])[address] [place] [address] MCHC (RBC) [Mass/Vol] 29.9 g/dL Low 32.0-36.0 [facility] Comment on above: Performed By: #### 5 7021-8 ####JASON Carrasquillo ([id number])[facility] ([facility])[address] [place] [address] MCV (RBC) [Entitic vol] 84 fL Normal 80-100 [facility] Comment on above: Performed By: #### 5 7021-8 ####JASON Carrasquillo ([id number])[facility] ([facility])[id number] [place] [address] Monocytes (Bld) [#/Vol] 0.27 x10*3/uL Normal 0.10-1.00 [facility] Comment on above: Performed By: #### 5 7021-8 ####JASON Carrasquillo ([id number])[facility] ([facility])[address] [place] [address] Monocytes/100 WBC (Bld) 7.5 % Normal 2.0-10.0 [facility] Comment on above: Performed By: #### 5 7021-8 ####JASON Carrasquillo ([id number])[facility] ([facility])[address] [place] [address] Neutrophils (Bld) [#/Vol] 2.74 x10*3/uL Normal 1.20-7.70 [facility] Comment on above: Result Comment: Perc ent differential counts (%) should be interpreted in the context of the absolute cell counts (cells/uL). Performed By: #### 5 7021-8 ####JASON Carrasquillo ([id number])[facility] ([facility])[address] [place] [address] Neutrophils/100 WBC (Bld) 76.2 % Normal 40.0-80.0 [facility] Comment on above: Performed By: #### 5 7021-8 ####JASON Carrasquillo ([id number])[facility] ([facility])[address] [place] [address] Nucleated RBC/100 WBC (Bld) [Ratio] 0.0 /100 WBCs Normal 0.0-0.0 [facility] Comment on above: Performed By: #### 5 7021-8 ####JASON Carrasquillo ([id number])[facility] ([facility])[address] [place] [address] Platelets (Bld) [#/Vol] 145 x10*3/uL Low 150-450 [facility] Comment on above: Performed By: #### 5 7021-8 ####JASON Carrasquillo ([id number])[facility] ([facility])[address] [place] [address] RBC (Bld) [#/Vol] 3.01 x10*6/uL Low 4.50-5.90 [facility] Comment on above: Performed By: #### 5 7021-8 ####JASON Carrasquillo ([id number])[facility] ([facility])[address] [place] [address] WBC (Bld) [#/Vol] 3.6 x10*3/uL Low 4.4-11.3 [facility] Comment on above: Performed By: #### 5 7021-8 ####JASON Carrasquillo ([id number])[facility] ([facility])[address] [place] [address] CBC panel Auto (Bld)on 12-20 Erythrocyte distribution width (RBC) [Ratio] 19.1 % High 11.5 - 14.5 % [facility] Hematocrit (Bld) [Volume fraction] 25.8 % Low 41.0 - 52.0 % [facility] Hemoglobin (Bld) [Mass/Vol] 7.8 g/dL Low 13.5 - 17.5 g/dL [facility] Interpretation and review of laboratory results Abnormal [facility] MCH (RBC) [Entitic mass] 25.5 pg Low 26.0 - 34.[address] [facility] MCHC (RBC) [Mass/Vol] 30.2 g/dL Low 32.0 - 36.0 g/dL [facility] MCV (RBC) [Entitic vol] 84 fL 80 - [address] [facility] Nucleated RBC/100 WBC (Bld) [Ratio] 0 % [facility] Platelets (Bld) [#/Vol] 123 10*3/uL Low [facility] RBC (Bld) [#/Vol] 3.06 10*6/uL Low [facility] WBC (Bld) [#/Vol] 3.5 10*3/uL Low [facility] Erythrocyte distribution width (RBC) [Ratio] 19.1 % High 11.5-14.5 [facility] Comment on above: Performed By: #### 5 8410-2 ####JASON Carrasquillo ([id number])[facility] ([facility])[address] [place] [address] Hematocrit (Bld) [Volume fraction] 25.8 % Low 41.0-52.0 [facility] Comment on above: Performed By: #### 5 8410-2 ####JASON Carrasquillo ([id number])[facility] ([facility])[id number] [place] [address] Hemoglobin (Bld) [Mass/Vol] 7.8 g/dL Low 13.5-17.5 [facility] Comment on above: Performed By: #### 5 8410-2 ####JASON Carrasquillo ([id number])[facility] ([facility])[address] [place] [address] MCH (RBC) [Entitic mass] 25.5 pg Low 26.0-34.0 [facility] Comment on above: Performed By: #### 5 8410-2 ####JASON Carrasquillo ([id number])[facility] ([facility])[id number] [place] [address] MCHC (RBC) [Mass/Vol] 30.2 g/dL Low 32.0-36.0 [facility] Comment on above: Performed By: #### 5 8410-2 ####JASON Carrasquillo ([id number])[facility] ([facility])[address] [place] [address] MCV (RBC) [Entitic vol] 84 fL Normal 80-100 [facility] Comment on above: Performed By: #### 5 8410-2 ####JASON Carrasquillo ([id number])[facility] ([facility])[address] [place] [address] Nucleated RBC/100 WBC (Bld) [Ratio] 0.0 /100 WBCs Normal 0.0-0.0 [facility] Comment on above: Performed By: #### 5 8410-2 ####JASON Carrasquillo ([id number])[facility] ([facility])[address] [place] [address] Platelets (Bld) [#/Vol] 123 x10*3/uL Low 150-450 [facility] Comment on above: Performed By: #### 5 8410-2 ####JASON Carrasquillo ([id number])[facility] ([facility])[address] [place] [address] RBC (Bld) [#/Vol] 3.06 x10*6/uL Low 4.50-5.90 [facility] Comment on above: Performed By: #### 5 8410-2 ####JASON Carrasquillo ([id number])[facility] ([facility])[address] [place] [address] WBC (Bld) [#/Vol] 3.5 x10*3/uL Low 4.4-11.3 [facility] Comment on above: Performed By: #### 5 8410-2 ####JASON Carrasquillo ([id number])[facility] ([facility])[address] [place] [address] Glucose Test strip manual (B ld) [Mass/Vol]on 12-20-2024 Glucose [Mass/Vol] 284 mg/dL High 74 - 99 mg/dL [facility] Interpretation and review of laboratory results Abnormal [facility] Glucose [Mass/Vol] 284 mg/dL High 74-99 [facility] Comment on above: Performed By: #### 2 341-6 ####JASON Carrasquillo ([id number])[facility] ([facility])[address] [place] [address] Glucose [Mass/Vol] 138 mg/dL High 74 - 99 mg/dL [facility] Interpretation and review of laboratory results Abnormal [facility] Glucose [Mass/Vol] 138 mg/dL High 74-99 [facility] Comment on above: Performed By: #### 2 341-6 ####JASON Carrasquillo ([id number])[facility] ([facility])[address] [place] [address] Glucose [Mass/Vol] 148 mg/dL High 74 - 99 mg/dL [facility] Interpretation and review of laboratory results Abnormal [facility] Glucose [Mass/Vol] 148 mg/dL High 74-99 [facility] Comment on above: Performed By: #### 2 341-6 ####JASON Carrasquillo ([id number])[facility] ([facility])[address] [place] [address] Glucose [Mass/Vol] 224 mg/dL High 74 - 99 mg/dL [facility] Interpretation and review of laboratory results Abnormal [facility] Glucose [Mass/Vol] 224 mg/dL High 74-99 [facility] Comment on above: Performed By: #### 2 341-6 ####JASON Carrasquillo ([id number])[facility] ([facility])[address] [place] [address] HLA Transplant Antibody Pane jc 12-20-2024 HLA Results See Attached [facility] HLA-A+B+C (class I) Ab (S) [facility] HLA-DP+DQ+DR (class II) Ab (S) [facility] Magnesiumon 12-20-2024 Magnesium [Mass/Vol] 2.14 mg/dL 1.60 - 2.40 mg/dL [facility] Magnesium [Mass/Vol] 2.14 mg/dL Normal 1.60-2.40 [facility] Comment on above: Performed By: #### 1 9123-9 ####JASON Carrasquillo ([id number])[facility] ([facility])[address] [place] [address] Magnesium [Mass/Vol]on 12-20 Interpretation and review of laboratory results Normal [facility] No Panel Informationon 12-[address] [facility] Renal function 2000 panelon 12-20-2024 Albumin BCP dye [Mass/Vol] 3 g/dL Low 3.4 - 5.0 g/dL [facility] Anion gap [Moles/Vol] 11 mmol/L 10 - 20 mmol/L [facility] Calcium [Mass/Vol] 8.7 mg/dL 8.6 - 10. 6 mg/dL [facility] Chloride [Moles/Vol] 106 mmol/L 98 - 10 7 mmol/L [facility] CO2 [Moles/Vol] 18 mmol/L Low 21 - 32 mmol/L [facility] Creatinine [Mass/Vol] 2.72 mg/dL High 0.50 - 1.30 mg/dL [facility] GFR/1.73 sq M.predicted among non-blacks MDRD (S/P/Bld) [Vol rate/Area] 27 mL/min/{1.73_m2} Low - PINF [facility] Glucose [Mass/Vol] 185 mg/dL High 74 - 99 mg/dL [facility] Interpretation and review of laboratory results Abnormal [facility] Phosphate [Mass/Vol] 3.7 mg/dL 2.5 - 4 .9 mg/dL [facility] Potassium [Moles/Vol] 4.8 mmol/L 3.5 - 5.3 mmol/L [facility] Sodium [Moles/Vol] 130 mmol/L Low 136 - 145 mmol/L [facility] Urea nitrogen [Mass/Vol] 62 mg/dL High 6 - 23 mg/dL [facility] Albumin BCP dye [Mass/Vol] 3.0 g/dL Low 3.4-5.0 [facility] Comment on above: Performed By: #### 2 4362-6 ####JASON Carrasquillo ([id number])[facility] ([facility])[id number] [place] [address] Anion gap [Moles/Vol] 11 mmol/L Normal 10-20 [facility] Comment on above: Performed By: #### 2 4362-6 ####JASON Carrasquillo ([id number])[facility] ([facility])[address] [place] [address] Calcium [Mass/Vol] 8.7 mg/dL Normal 8.6-10.6 [facility] Comment on above: Performed By: #### 2 4362-6 ####JASON Carrasquillo ([id number])[facility] ([facility])[address] [place] [address] Chloride [Moles/Vol] 106 mmol/L Normal 98-107 [facility] Comment on above: Performed By: #### 2 4362-6 ####JASON Carrasquillo ([id number])[facility] ([facility])[address] [place] [address] CO2 [Moles/Vol] 18 mmol/L Low 21-32 [facility] Comment on above: Performed By: #### 2 4362-6 ####JASON Cararsquillo ([id number])[facility] ([facility])[address] [place] [address] Creatinine [Mass/Vol] 2.72 mg/dL High 0.50-1.30 [facility] Comment on above: Performed By: #### 2 4362-6 ####JASON Carrasquillo ([id number])[facility] ([facility])[address] [place] [address] Glomerular filtration rate/1.73 sq M.predicted 27 mL/min/1.73m*2 Low >60 [facility] Comment on above: Result Comment: Calc ulations of estimated GFR are performed using the 2020 CKD-EPI Study Refit equation without the race variable for the IDMS-Traceable creatinine methods.https://jasn.asnjournals.org/content// N.7658933906 Performed By: #### 2 4362-6 ####JASON Carrasquillo ([id number])[facility] ([facility])[address] [place] [address] Glucose [Mass/Vol] 185 mg/dL High 74-99 [facility] Comment on above: Performed By: #### 2 4362-6 ####JASON Carrasquillo ([id number])[facility] ([facility])[address] [place] [address] Phosphate [Mass/Vol] 3.7 mg/dL Normal 2.5-4.9 [facility] Comment on above: Performed By: #### 2 4362-6 ####JASON Carrasquillo ([id number])[facility] ([facility])[address] [place] [address] Potassium [Moles/Vol] 4.8 mmol/L Normal 3.5-5.3 [facility] Comment on above: Performed By: #### 2 4362-6 ####JASON Carrasquillo ([id number])[facility] ([facility])[address] [place] [address] Sodium [Moles/Vol] 130 mmol/L Low 136-145 [facility] Comment on above: Performed By: #### 2 4362-6 ####JASON Carrasquillo ([id number])[facility] ([facility])[address] [place] [address]846 Urea nitrogen [Mass/Vol] 62 mg/dL High 6-23 [facility] Comment on above: Performed By: #### 2 4362-6 ####JASON Carrasquillo ([id number])[facility] ([facility])[address] [place] [address] Albumin BCP dye [Mass/Vol] 3.1 g/dL Low 3.4 - 5.0 g/dL [facility] Anion gap [Moles/Vol] 12 mmol/L 10 - 20 mmol/L [facility] Calcium [Mass/Vol] 9.1 mg/dL 8.6 - 10. 6 mg/dL [facility] Chloride [Moles/Vol] 109 mmol/L High 98 - 10 7 mmol/L [facility] CO2 [Moles/Vol] 17 mmol/L Low 21 - 32 mmol/L [facility] Creatinine [Mass/Vol] 3.07 mg/dL High 0.50 - 1.30 mg/dL [facility] GFR/1.73 sq M.predicted among non-blacks MDRD (S/P/Bld) [Vol rate/Area] 23 mL/min/{1.73_m2} Low - PINF [facility] Glucose [Mass/Vol] 210 mg/dL High 74 - 99 mg/dL [facility] Interpretation and review of laboratory results Abnormal [facility] Phosphate [Mass/Vol] 4.1 mg/dL 2.5 - 4 .9 mg/dL [facility] Potassium [Moles/Vol] 5.6 mmol/L High 3.5 - 5.3 mmol/L [facility] Sodium [Moles/Vol] 132 mmol/L Low 136 - 145 mmol/L [facility] Urea nitrogen [Mass/Vol] 63 mg/dL High 6 - 23 mg/dL [facility] Albumin BCP dye [Mass/Vol] 3.1 g/dL Low 3.4-5.0 [facility] Comment on above: Performed By: #### 2 4362-6 ####JASON Carrasquillo ([id number])[facility] ([facility])[address] [place] [address] Anion gap [Moles/Vol] 12 mmol/L Normal 10-20 [facility] Comment on above: Performed By: #### 2 4362-6 ####JASON Carrasquillo ([id number])[facility] ([facility])[address] [place] [address] Calcium [Mass/Vol] 9.1 mg/dL Normal 8.6-10.6 [facility] Comment on above: Performed By: #### 2 4362-6 ####JASON Carrasquillo ([id number])[facility] ([facility])[address] [place] [address] Chloride [Moles/Vol] 109 mmol/L High 98-107 [facility] Comment on above: Performed By: #### 2 4362-6 ####JASON JENNINGS L ([id number])[facility] ([facility])[address] [place] [address] CO2 [Moles/Vol] 17 mmol/L Low 21-32 [facility] Comment on above: Performed By: #### 2 4362-6 ####JASON Carrasquillo ([id number])[facility] ([facility])[address] [place] [address] Creatinine [Mass/Vol] 3.07 mg/dL High 0.50-1.30 [facility] Comment on above: Performed By: #### 2 4362-6 ####JASON Carrasquillo ([id number])[facility] ([facility])[address] [place] [address] Glomerular filtration rate/1.73 sq M.predicted 23 mL/min/1.73m*2 Low >60 [facility] Comment on above: Result Comment: Calc ulations of estimated GFR are performed using the 2020 CKD-EPI Study Refit equation without the race variable for the IDMS-Traceable creatinine methods.https://jasn.asnjournals.org/content// N.4478809628 Performed By: #### 2 4362-6 ####JASON Carrasquillo ([id number])[facility] ([facility])[address] [place] [address] Glucose [Mass/Vol] 210 mg/dL High 74-99 [facility] Comment on above: Performed By: #### 2 4362-6 ####JASON Carrasquillo ([id number])[facility] ([facility])[address] [place] [address] Phosphate [Mass/Vol] 4.1 mg/dL Normal 2.5-4.9 [facility] Comment on above: Performed By: #### 2 4362-6 ####JASON Carrasquillo ([id number])[facility] ([facility])[address] [place] [address] Potassium [Moles/Vol] 5.6 mmol/L High 3.5-5.3 [facility] Comment on above: Performed By: #### 2 4362-6 ####JASON Carrasquillo ([id number])[facility] ([facility])[address] [place] [address] Sodium [Moles/Vol] 132 mmol/L Low 136-145 [facility] Comment on above: Performed By: #### 2 4362-6 ####JASON Carrasquillo ([id number])[facility] ([facility])[address] [place] [address] Urea nitrogen [Mass/Vol] 63 mg/dL High 6-23 [facility] Comment on above: Performed By: #### 2 4362-6 ####JASON Carrasquillo ([id number])[facility] ([facility])[address] [place] [address] Tacrolimuson 12-20-2024 Tacrolimus (Bld) [Mass/Vol] 3.7 ng/mL NINF - 15.0 ng/mL [facility] Work Phone: Tacrolimus (Bld) [Mass/Vol] 3.7 ng/mL Normal <=15.0 [facility] Comment on above: Order Comment: NOTE: Result was obtained using achemiluminescent microparticle immunoassay(CMIA) on the [employer] i system.Optimal therapeutic ranges for immunosuppressantdrugs depend upon an individualpatient's current clinical state, type oforgan transplant, time post-transplant,co-administration of other immunosuppressants,and other clinical factors. The results ofthis test should be correlated with additionalclinical and laboratory data before changesin treatment regimens are made. Performed By: #### 1 1253-2 ####JASON Carrasquillo ([id number])[facility] ([facility])[address] [place] [address] Tacrolimus (Bld) [Mass/Vol]o n 12-20-2024 Interpretation and review of laboratory results Normal [facility] Work Phone: [facility] Work Phone: [facility] Work Phone: CBC W Auto Differential pane l (Bld)on 12-19-2024 Basophils (Bld) [#/Vol] 0.01 10*3/uL [facility] Basophils/100 WBC (Bld) 0.2 % 0.0 - 2.0 % [facility] Eosinophils (Bld) [#/Vol] 0.06 10*3/uL [facility] Eosinophils/100 WBC (Bld) 1.4 % 0.0 - 6.0 % [facility] Erythrocyte distribution width (RBC) [Ratio] 18.8 % High 11.5 - 14.5 % [facility] Hematocrit (Bld) [Volume fraction] 26.8 % Low 41.0 - 52.0 % [facility] Hemoglobin (Bld) [Mass/Vol] 8.5 g/dL Low 13.5 - 17.5 g/dL [facility] Immature granulocytes (Bld) [#/Vol] 0.04 10*3/uL [facility] Immature granulocytes/100 WBC (Bld) 0.9 % 0.0 - 0.9 % [facility] Interpretation and review of laboratory results Abnormal [facility] Lymphocytes (Bld) [#/Vol] 0.55 10*3/uL Low [facility] Lymphocytes/100 WBC (Bld) 12.6 % 13.0 - 44.0 % [facility] MCH (RBC) [Entitic mass] 26.4 pg 26.0 - 34.[address] [facility] MCHC (RBC) [Mass/Vol] 31.7 g/dL Low 32.0 - 36.0 g/dL [facility] MCV (RBC) [Entitic vol] 83 fL 80 - [address] [facility] Monocytes (Bld) [#/Vol] 0.29 10*3/uL [facility] Monocytes/100 WBC (Bld) 6.7 % 2.0 - 10.0 % [facility] Neutrophils (Bld) [#/Vol] 3.41 10*3/uL [facility] Neutrophils/100 WBC (Bld) 78.2 % 40.0 - 80.0 % [facility] Nucleated RBC/100 WBC (Bld) [Ratio] 0 % [facility] Platelets (Bld) [#/Vol] 140 10*3/uL Low [facility] RBC (Bld) [#/Vol] 3.22 10*6/uL Low [facility] WBC (Bld) [#/Vol] 4.4 10*3/uL [facility] Basophils (Bld) [#/Vol] 0.01 x10*3/uL Normal 0.00-0.10 [facility] Comment on above: Performed By: #### 5 7021-8 ####JASON Carrasquillo ([id number])[facility] ([facility])[address] [place] [address] Basophils/100 WBC (Bld) 0.2 % Normal 0.0-2.0 [facility] Comment on above: Performed By: #### 5 7021-8 ####JASON Carrasquillo ([id number])[facility] ([facility])[id number] [place] [id number] Eosinophils (Bld) [#/Vol] 0.06 x10*3/uL Normal 0.00-0.70 [facility] Comment on above: Performed By: #### 5 7021-8 ####JASON Carrasquillo ([id number])[facility] ([facility])[id number] [place] [address] Eosinophils/100 WBC (Bld) 1.4 % Normal 0.0-6.0 [facility] Comment on above: Performed By: #### 5 7021-8 ####JASON Carrasquillo ([id number])[facility] ([facility])[id number] [place] [id number] Erythrocyte distribution width (RBC) [Ratio] 18.8 % High 11.5-14.5 [facility] Comment on above: Performed By: #### 5 7021-8 ####JASON Carrasquillo ([id number])[facility] ([facility])[id number] [place] [address] Hematocrit (Bld) [Volume fraction] 26.8 % Low 41.0-52.0 [facility] Comment on above: Performed By: #### 5 7021-8 ####JASON Carrasquillo ([id number])[facility] ([facility])[id number] [place] [address] Hemoglobin (Bld) [Mass/Vol] 8.5 g/dL Low 13.5-17.5 [facility] Comment on above: Performed By: #### 5 7021-8 ####JASON SUTHERLANDER L ([id number])[facility] ([facility])[address] [place] [address] Immature granulocytes (Bld) [#/Vol] 0.04 x10*3/uL Normal 0.00-0.70 [facility] Comment on above: Performed By: #### 5 7021-8 ####JASON CLARKMOTZER L ([id number])[facility] ([facility])[address] [place] [address] Immature granulocytes/100 WBC (Bld) 0.9 % Normal 0.0-0.9 [facility] Comment on above: Result Comment: Shantell ture Granulocyte Count (IG) includes promyelocytes, myelocytes and metamyelocytes but does not include bands. Percent differential counts (%) should be interpreted in the context of the absolute cell counts (cells/UL). Performed By: #### 5 7021-8 ####JASON JENNINGS L ([id number])[facility] ([facility])[address] [place] [address] Lymphocytes (Bld) [#/Vol] 0.55 x10*3/uL Low 1.20-4.80 [facility] Comment on above: Performed By: #### 5 7021-8 ####JASON JENNINGS L ([id number])[facility] ([facility])[address] [place] [address] Lymphocytes/100 WBC (Bld) 12.6 % Normal 13.0-44.0 [facility] Comment on above: Performed By: #### 5 7021-8 ####JASON CLARKMOZAY L ([id number])[facility] ([facility])[address] [place] [address] MCH (RBC) [Entitic mass] 26.4 pg Normal 26.0-34.0 [facility] Comment on above: Performed By: #### 5 7021-8 ####JASON JENNINGS L ([id number])[facility] ([facility])[address] [place] [address] MCHC (RBC) [Mass/Vol] 31.7 g/dL Low 32.0-36.0 [facility] Comment on above: Performed By: #### 5 7021-8 ####JASON Carrasquillo ([id number])[facility] ([facility])[address] [place] [address] MCV (RBC) [Entitic vol] 83 fL Normal 80-100 [facility] Comment on above: Performed By: #### 5 7021-8 ####JASON JENNINGS L ([id number])[facility] ([facility])[address] [place] [address] Monocytes (Bld) [#/Vol] 0.29 x10*3/uL Normal 0.10-1.00 [facility] Comment on above: Performed By: #### 5 7021-8 ####JASON Carrasquillo ([id number])[facility] ([facility])[address] [place] [address] Monocytes/100 WBC (Bld) 6.7 % Normal 2.0-10.0 [facility] Comment on above: Performed By: #### 5 7021-8 ####JASON Carrasquillo ([id number])[facility] ([facility])[address] [place] [address] Neutrophils (Bld) [#/Vol] 3.41 x10*3/uL Normal 1.20-7.70 [facility] Comment on above: Result Comment: Perc ent differential counts (%) should be interpreted in the context of the absolute cell counts (cells/uL). Performed By: #### 5 7021-8 ####JASON JENNINGS L ([id number])[facility] ([facility])[address] [place] [address] Neutrophils/100 WBC (Bld) 78.2 % Normal 40.0-80.0 [facility] Comment on above: Performed By: #### 5 7021-8 ####JASON Carrasquillo ([id number])[facility] ([facility])[address] [place] [address] Nucleated RBC/100 WBC (Bld) [Ratio] 0.0 /100 WBCs Normal 0.0-0.0 [facility] Comment on above: Performed By: #### 5 7021-8 ####JASON Carrasquillo ([id number])[facility] ([facility])[address] [place] [address] Platelets (Bld) [#/Vol] 140 x10*3/uL Low 150-450 [facility] Comment on above: Performed By: #### 5 7021-8 ####JASON Carrasquillo ([id number])[facility] ([facility])[address] [place] [address] RBC (Bld) [#/Vol] 3.22 x10*6/uL Low 4.50-5.90 [facility] Comment on above: Performed By: #### 5 7021-8 ####JASON Carrasquillo ([id number])[facility] ([facility])[address] [place] [address] WBC (Bld) [#/Vol] 4.4 x10*3/uL Normal 4.4-11.3 [facility] Comment on above: Performed By: #### 5 7021-8 ####JASON Carrasquillo ([id number])[facility] ([facility])[address] [place] [address] Glucose Test strip manual (B ld) [Mass/Vol]on 12-19-2024 Glucose [Mass/Vol] 128 mg/dL High 74 - 99 mg/dL [facility] Interpretation and review of laboratory results Abnormal [facility] Glucose [Mass/Vol] 128 mg/dL High 74-99 [facility] Comment on above: Performed By: #### 2 341-6 ####JASON Carrasquillo ([id number])[facility] ([facility])[address] [place] [address] Glucose [Mass/Vol] 265 mg/dL High 74 - 99 mg/dL [facility] Interpretation and review of laboratory results Abnormal [facility] Glucose [Mass/Vol] 265 mg/dL High 74-99 [facility] Comment on above: Performed By: #### 2 341-6 ####JASON Carrasquillo ([id number])[facility] ([facility])[address] [place] [address] Glucose [Mass/Vol] 204 mg/dL High 74 - 99 mg/dL [facility] Interpretation and review of laboratory results Abnormal [facility] Glucose [Mass/Vol] 204 mg/dL High 74-99 [facility] Comment on above: Performed By: #### 2 341-6 ####JASON Carrasquillo ([id number])[facility] ([facility])[address] [place] [address] Glucose [Mass/Vol] 167 mg/dL High 74 - 99 mg/dL [facility] Interpretation and review of laboratory results Abnormal [facility] Glucose [Mass/Vol] 167 mg/dL High 74-99 [facility] Comment on above: Performed By: #### 2 341-6 ####AJSON Carrasquillo ([id number])[facility] ([facility])[address] [place] [address] Magnesiumon 12-19-2024 Magnesium [Mass/Vol] 1.55 mg/dL Low 1.60 - 2.40 mg/dL [facility] Magnesium [Mass/Vol] 1.55 mg/dL Low 1.60-2.40 [facility] Comment on above: Performed By: #### 1 9123-9 ####JASON Carrasquillo ([id number])[facility] ([facility])[address] [place] [address] No Panel Informationon 12-19 Interpretation and review of laboratory results Abnormal [facility] Renal function 2000 panelon 12-19-2024 Albumin BCP dye [Mass/Vol] 3.1 g/dL Low 3.4 - 5.0 g/dL [facility] Anion gap [Moles/Vol] 11 mmol/L 10 - 20 mmol/L [facility] Calcium [Mass/Vol] 8.8 mg/dL 8.6 - 10. 6 mg/dL [facility] Chloride [Moles/Vol] 112 mmol/L High 98 - 10 7 mmol/L [facility] CO2 [Moles/Vol] 17 mmol/L Low 21 - 32 mmol/L [facility] Creatinine [Mass/Vol] 2.4 mg/dL High 0.50 - 1.30 mg/dL [facility] GFR/1.73 sq M.predicted among non-blacks MDRD (S/P/Bld) [Vol rate/Area] 31 mL/min/{1.73_m2} Low - PINF [facility] Glucose [Mass/Vol] 136 mg/dL High 74 - 99 mg/dL [facility] Phosphate [Mass/Vol] 3.8 mg/dL 2.5 - 4 .9 mg/dL [facility] Potassium [Moles/Vol] 4.9 mmol/L 3.5 - 5.3 mmol/L [facility] Sodium [Moles/Vol] 135 mmol/L Low 136 - 145 mmol/L [facility] Urea nitrogen [Mass/Vol] 60 mg/dL High 6 - 23 mg/dL [facility] Albumin BCP dye [Mass/Vol] 3.1 g/dL Low 3.4-5.0 [facility] Comment on above: Performed By: #### 2 4362-6 ####JASON Carrasquillo ([id number])[facility] ([facility])[address] [place] [address] Anion gap [Moles/Vol] 11 mmol/L Normal 10-20 [facility] Comment on above: Performed By: #### 2 4362-6 ####JASON Carrasquillo ([id number])[facility] ([facility])[address] [place] [address] Calcium [Mass/Vol] 8.8 mg/dL Normal 8.6-10.6 [facility] Comment on above: Performed By: #### 2 4362-6 ####JASON Carrasquillo ([id number])[facility] ([facility])[address] [place] [address] Chloride [Moles/Vol] 112 mmol/L High 98-107 [facility] Comment on above: Performed By: #### 2 4362-6 ####JASON JENNINGS L ([id number])[facility] ([facility])[address] [place] [address] CO2 [Moles/Vol] 17 mmol/L Low 21-32 [facility] Comment on above: Performed By: #### 2 4362-6 ####JASON Carrasquillo ([id number])[facility] ([facility])[address] [place] [address] Creatinine [Mass/Vol] 2.40 mg/dL High 0.50-1.30 [facility] Comment on above: Performed By: #### 2 4362-6 ####JASON Carrasquillo ([id number])[facility] ([facility])[address] [place] [address] Glomerular filtration rate/1.73 sq M.predicted 31 mL/min/1.73m*2 Low >60 [facility] Comment on above: Result Comment: Calc ulations of estimated GFR are performed using the 2020 CKD-EPI Study Refit equation without the race variable for the IDMS-Traceable creatinine methods.https://jasn.asnjournals.org/content/early/ N.4282199096 Performed By: #### 2 4362-6 ####JASON Carrasquillo ([id number])[facility] ([facility])[address] [place] [address] Glucose [Mass/Vol] 136 mg/dL High 74-99 [facility] Comment on above: Performed By: #### 2 4362-6 ####JASON Carrasquillo ([id number])[facility] ([facility])[address] [place] [address] Phosphate [Mass/Vol] 3.8 mg/dL Normal 2.5-4.9 [facility] Comment on above: Performed By: #### 2 4362-6 ####JASON Carrasquillo ([id number])[facility] ([facility])[address] [place] [address] Potassium [Moles/Vol] 4.9 mmol/L Normal 3.5-5.3 [facility] Comment on above: Performed By: #### 2 4362-6 ####JASON Carrasquillo ([id number])[facility] ([facility])[address] [place] [address] Sodium [Moles/Vol] 135 mmol/L Low 136-145 [facility] Comment on above: Performed By: #### 2 4362-6 ####JASON Carrasquillo ([id number])[facility] ([facility])[address] [place] [address] Urea nitrogen [Mass/Vol] 60 mg/dL High 6-23 [facility] Comment on above: Performed By: #### 2 4362-6 ####JASON Carrasquillo ([id number])[facility] ([facility])[address] [place] [address] Tacrolimuson 12-19-2024 Tacrolimus (Bld) [Mass/Vol] 3.7 ng/mL NINF - 15.0 ng/mL [facility] Work Phone: Tacrolimus (Bld) [Mass/Vol] 3.7 ng/mL Normal <=15.0 [facility] Comment on above: Order Comment: NOTE: Result was obtained using achemiluminescent microparticle immunoassay(CMIA) on the [employer] i system.Optimal therapeutic ranges for immunosuppressantdrugs depend upon an individualpatient's current clinical state, type oforgan transplant, time post-transplant,co-administration of other immunosuppressants,and other clinical factors. The results ofthis test should be correlated with additionalclinical and laboratory data before changesin treatment regimens are made. Performed By: #### 1 1253-2 ####JASON Carrasquillo ([id number])[facility] ([facility])[address] [place] [address] Tacrolimus (Bld) [Mass/Vol]o n 12-19-2024 Interpretation and review of laboratory results Normal [facility] Work Phone: [facility] Work Phone: [facility] Work Phone: AlloSure Kidneyon 12-18-2024 Allosure Score - Kidney 0.54 % See Note [facility] Annotation comment [Interpretation] Narrative [facility] CAREDXORDE [id number] [facility] Center Order ID [id number] Notes See Note [facility] Relationship of subject to patient Unrelated [facility] Relative Change Value - Kidney N/A [facility] Time Post Tx - Allosure 0y 2m [address] [facility] Transplant type [Anatomy] Kidney [facility] Unique identifier Nom (Current sample) [ID] [facility] Web Portal Order ID [facility] CBC W Auto Differential pane l (Bld)on 12-18-2024 Basophils (Bld) [#/Vol] 0 10*3/uL [facility] Basophils/100 WBC (Bld) 0 % 0.0 - 2.0 % [facility] Eosinophils (Bld) [#/Vol] 0.04 10*3/uL [facility] Eosinophils/100 WBC (Bld) 1.1 % 0.0 - 6.0 % [facility] Erythrocyte distribution width (RBC) [Ratio] 18.8 % High 11.5 - 14.5 % [facility] Hematocrit (Bld) [Volume fraction] 27 % Low 41.0 - 52.0 % [facility] Hemoglobin (Bld) [Mass/Vol] 8.2 g/dL Low 13.5 - 17.5 g/dL [facility] Immature granulocytes (Bld) [#/Vol] 0.02 10*3/uL [facility] Immature granulocytes/100 WBC (Bld) 0.5 % 0.0 - 0.9 % [facility] Interpretation and review of laboratory results Abnormal [facility] Lymphocytes (Bld) [#/Vol] 0.62 10*3/uL Low [facility] Lymphocytes/100 WBC (Bld) 16.4 % 13.0 - 44.0 % [facility] MCH (RBC) [Entitic mass] 25.5 pg Low 26.0 - 34.[address] [facility] MCHC (RBC) [Mass/Vol] 30.4 g/dL Low 32.0 - 36.0 g/dL [facility] MCV (RBC) [Entitic vol] 84 fL 80 - [address] [facility] Monocytes (Bld) [#/Vol] 0.23 10*3/uL [facility] Monocytes/100 WBC (Bld) 6.1 % 2.0 - 10.0 % [facility] Neutrophils (Bld) [#/Vol] 2.88 10*3/uL [facility] Neutrophils/100 WBC (Bld) 75.9 % 40.0 - 80.0 % [facility] Nucleated RBC/100 WBC (Bld) [Ratio] 0 % [facility] Platelets (Bld) [#/Vol] 121 10*3/uL [facility] RBC (Bld) [#/Vol] 3.22 10*6/uL [facility] WBC (Bld) [#/Vol] 3.8 10*3/uL [facility] Basophils (Bld) [#/Vol] 0.00 x10*3/uL Normal 0.00-0.10 [facility] Comment on above: Performed By: #### 5 7021-8 ####JASON Carrasquillo ([id number])[facility] ([facility])[id number] [place] [address] Basophils/100 WBC (Bld) 0.0 % Normal 0.0-2.0 [facility] Comment on above: Performed By: #### 5 7021-8 ####JASON Carrasquillo ([id number])[facility] ([facility])[address] [place] [address] Eosinophils (Bld) [#/Vol] 0.04 x10*3/uL Normal 0.00-0.70 [facility] Comment on above: Performed By: #### 5 7021-8 ####JASON Carrasquillo ([id number])[facility] ([facility])[address] [place] [address] Eosinophils/100 WBC (Bld) 1.1 % Normal 0.0-6.0 [facility] Comment on above: Performed By: #### 5 7021-8 ####JASON Carrasquillo ([id number])[facility] ([facility])[address] [place] [address] Erythrocyte distribution width (RBC) [Ratio] 18.8 % High 11.5-14.5 [facility] Comment on above: Performed By: #### 5 7021-8 ####JASON Carrasquillo ([id number])[facility] ([facility])[id number] [place] [address] Hematocrit (Bld) [Volume fraction] 27.0 % Low 41.0-52.0 [facility] Comment on above: Performed By: #### 5 7021-8 ####JASON Carrasquillo ([id number])[facility] ([facility])[address] [place] [address] Hemoglobin (Bld) [Mass/Vol] 8.2 g/dL Low 13.5-17.5 [facility] Comment on above: Performed By: #### 5 7021-8 ####JASON JENNINGS L ([id number])[facility] ([facility])[address] [place] [address] Immature granulocytes (Bld) [#/Vol] 0.02 x10*3/uL Normal 0.00-0.70 [facility] Comment on above: Performed By: #### 5 7021-8 ####JASON Carrasquillo ([id number])[facility] ([facility])[address] [place] [address] Immature granulocytes/100 WBC (Bld) 0.5 % Normal 0.0-0.9 [facility] Comment on above: Result Comment: Shantell ture Granulocyte Count (IG) includes promyelocytes, myelocytes and metamyelocytes but does not include bands. Percent differential counts (%) should be interpreted in the context of the absolute cell counts (cells/UL). Performed By: #### 5 7021-8 ####JASON Carrasquillo ([id number])[facility] ([facility])[address] [place] [address] Lymphocytes (Bld) [#/Vol] 0.62 x10*3/uL Low 1.20-4.80 [facility] Comment on above: Performed By: #### 5 7021-8 ####JASON Carrasquillo ([id number])[facility] ([facility])[address] [place] [address] Lymphocytes/100 WBC (Bld) 16.4 % Normal 13.0-44.0 [facility] Comment on above: Performed By: #### 5 7021-8 ####JASON Carrasquillo ([id number])[facility] ([facility])[address] [place] [address] MCH (RBC) [Entitic mass] 25.5 pg Low 26.0-34.0 [facility] Comment on above: Performed By: #### 5 7021-8 ####JASON Carrasquillo ([id number])[facility] ([facility])[address] [place] [address] MCHC (RBC) [Mass/Vol] 30.4 g/dL Low 32.0-36.0 [facility] Comment on above: Performed By: #### 5 7021-8 ####JASON Carrasquillo ([id number])[facility] ([facility])[address] [place] [address] MCV (RBC) [Entitic vol] 84 fL Normal 80-100 [facility] Comment on above: Performed By: #### 5 7021-8 ####JASON Carrasquillo ([id number])[facility] ([facility])[address] [place] [address] Monocytes (Bld) [#/Vol] 0.23 x10*3/uL Normal 0.10-1.00 [facility] Comment on above: Performed By: #### 5 7021-8 ####JASON Carrasquillo ([id number])[facility] ([facility])[address] [place] [address] Monocytes/100 WBC (Bld) 6.1 % Normal 2.0-10.0 [facility] Comment on above: Performed By: #### 5 7021-8 ####JASON Carrasquillo ([id number])[facility] ([facility])[address]1946 [place] [address] Neutrophils (Bld) [#/Vol] 2.88 x10*3/uL Normal 1.20-7.70 [facility] Comment on above: Result Comment: Perc ent differential counts (%) should be interpreted in the context of the absolute cell counts (cells/uL). Performed By: #### 5 7021-8 ####JASON Carrasquillo ([id number])[facility] ([facility])[address] [place] [address] Neutrophils/100 WBC (Bld) 75.9 % Normal 40.0-80.0 [facility] Comment on above: Performed By: #### 5 7021-8 ####JASON Carrasquillo ([id number])[facility] ([facility])[address]34 [place] [address] Nucleated RBC/100 WBC (Bld) [Ratio] 0.0 /100 WBCs Normal 0.0-0.0 [facility] Comment on above: Performed By: #### 5 7021-8 ####JASON Carrasquillo ([id number])[facility] ([facility])[address]23 [place] [address] Platelets (Bld) [#/Vol] 121 x10*3/uL Low 150-450 [facility] Comment on above: Performed By: #### 5 7021-8 ####JASON Carrasquillo ([id number])[facility] ([facility])[address] [place] [address] RBC (Bld) [#/Vol] 3.22 x10*6/uL Low 4.50-5.90 [facility] Comment on above: Performed By: #### 5 7021-8 ####JASON Carrasquillo ([id number])[facility] ([facility])[address] [place] [address] WBC (Bld) [#/Vol] 3.8 x10*3/uL Low 4.4-11.3 [facility] Comment on above: Performed By: #### 5 7021-8 ####JASON Carrasquillo ([id number])[facility] ([facility])[address] [place] [address] Glucose Test strip manual (B ld) [Mass/Vol]on 12-18-2024 Glucose [Mass/Vol] 171 mg/dL High 74 - 99 mg/dL [facility] Interpretation and review of laboratory results Abnormal [facility] Glucose [Mass/Vol] 171 mg/dL High 74-99 [facility] Comment on above: Performed By: #### 2 341-6 ####JASON Carrasquillo ([id number])[facility] ([facility])[id number] [place] [address] Glucose [Mass/Vol] 210 mg/dL High 74 - 99 mg/dL [facility] Interpretation and review of laboratory results Abnormal [facility] Glucose [Mass/Vol] 210 mg/dL High 74-99 [facility] Comment on above: Performed By: #### 2 341-6 ####JASON Carrasquillo ([id number])[facility] ([facility])[address] [place] [address] Glucose [Mass/Vol] 267 mg/dL High 74 - 99 mg/dL [facility] Interpretation and review of laboratory results Abnormal [facility] Glucose [Mass/Vol] 267 mg/dL High 74-99 [facility] Comment on above: Performed By: #### 2 341-6 ####JASON Carrasquillo ([id number])[facility] ([facility])[address] [place] [id number] Glucose [Mass/Vol] 160 mg/dL High 74 - 99 mg/dL [facility] Interpretation and review of laboratory results Abnormal [facility] Glucose [Mass/Vol] 160 mg/dL High 74-99 [facility] Comment on above: Performed By: #### 2 341-6 ####JASON Carrasquillo ([id number])[facility] ([facility])[id number] [place] [id number] Magnesiumon 12-18-2024 Magnesium [Mass/Vol] 1.62 mg/dL 1.60 - 2.40 mg/dL [facility] Magnesium [Mass/Vol] 1.62 mg/dL Normal 1.60-2.40 [facility] Comment on above: Performed By: #### 1 9123-9 ####JASON Carrasquillo ([id number])[facility] ([facility])[address] [place] [address] Magnesium [Mass/Vol]on 12-18 Interpretation and review of laboratory results Normal [facility] No Panel Informationon 12-[address] [facility] Renal function 2000 panelon 12-18-2024 Albumin BCP dye [Mass/Vol] 3 g/dL Low 3.4 - 5.0 g/dL [facility] Anion gap [Moles/Vol] 12 mmol/L 10 - 20 mmol/L [facility] Calcium [Mass/Vol] 8.4 mg/dL Low 8.6 - 10. 6 mg/dL [facility] Chloride [Moles/Vol] 111 mmol/L High 98 - 10 7 mmol/L [facility] CO2 [Moles/Vol] 15 mmol/L Low 21 - 32 mmol/L [facility] Creatinine [Mass/Vol] 2.78 mg/dL High 0.50 - 1.30 mg/dL [facility] GFR/1.73 sq M.predicted among non-blacks MDRD (S/P/Bld) [Vol rate/Area] 26 mL/min/{1.73_m2} Low - PINF [facility] Glucose [Mass/Vol] 167 mg/dL High 74 - 99 mg/dL [facility] Interpretation and review of laboratory results Abnormal [facility] Phosphate [Mass/Vol] 3.3 mg/dL 2.5 - 4 .9 mg/dL [facility] Potassium [Moles/Vol] 4.8 mmol/L 3.5 - 5.3 mmol/L [facility] Sodium [Moles/Vol] 133 mmol/L Low 136 - 145 mmol/L [facility] Urea nitrogen [Mass/Vol] 62 mg/dL High 6 - 23 mg/dL [facility] Albumin BCP dye [Mass/Vol] 3.0 g/dL Low 3.4-5.0 [facility] Comment on above: Performed By: #### 2 4362-6 ####JASON Carrasquillo ([id number])[facility] ([facility])[address] [place] [address] Anion gap [Moles/Vol] 12 mmol/L Normal 10-20 [facility] Comment on above: Performed By: #### 2 4362-6 ####JASON JENNINGS L ([id number])[facility] ([facility])[address] [place] [address] Calcium [Mass/Vol] 8.4 mg/dL Low 8.6-10.6 [facility] Comment on above: Performed By: #### 2 4362-6 ####JASON CLARKMOTZER L ([id number])[facility] ([facility])[address] [place] [address] Chloride [Moles/Vol] 111 mmol/L High 98-107 [facility] Comment on above: Performed By: #### 2 4362-6 ####JASON JENNINGS L ([id number])[facility] ([facility])[address] [place] [address] CO2 [Moles/Vol] 15 mmol/L Low 21-32 [facility] Comment on above: Performed By: #### 2 4362-6 ####JASON Carrasquillo ([id number])[facility] ([facility])[address] [place] [address] Creatinine [Mass/Vol] 2.78 mg/dL High 0.50-1.30 [facility] Comment on above: Performed By: #### 2 4362-6 ####JASON Carrasquillo ([id number])[facility] ([facility])[address] [place] [address] Glomerular filtration rate/1.73 sq M.predicted 26 mL/min/1.73m*2 Low >60 [facility] Comment on above: Result Comment: Calc ulations of estimated GFR are performed using the 2020 CKD-EPI Study Refit equation without the race variable for the IDMS-Traceable creatinine methods.https://jasn.asnjournals.org/content/early// N.4571794927 Performed By: #### 2 4362-6 ####JASON Carrasquillo ([id number])[facility] ([facility])[address] [place] [address] Glucose [Mass/Vol] 167 mg/dL High 74-99 [facility] Comment on above: Performed By: #### 2 4362-6 ####JASON Carrasquillo ([id number])[facility] ([facility])[address] [place] [address] Phosphate [Mass/Vol] 3.3 mg/dL Normal 2.5-4.9 [facility] Comment on above: Performed By: #### 2 4362-6 ####JASON Carrasquillo ([id number])[facility] ([facility])[address] [place] [address] Potassium [Moles/Vol] 4.8 mmol/L Normal 3.5-5.3 [facility] Comment on above: Performed By: #### 2 4362-6 ####JASON Carrasquillo ([id number])[facility] ([facility])[address] [place] [address] Sodium [Moles/Vol] 133 mmol/L Low 136-145 [facility] Comment on above: Performed By: #### 2 4362-6 ####JASON Carrasquillo ([id number])[facility] ([facility])[address] [place] [address] Urea nitrogen [Mass/Vol] 62 mg/dL High 6-23 [facility] Comment on above: Performed By: #### 2 4362-6 ####AJSON Carrasquillo ([id number])[facility] ([facility])[address] [place] [address] TacrolimusOrdered By: Nicki Gilmore on 12-18-2024 Tacrolimus (Bld) [Mass/Vol] 4.7 ng/mL NINF - 15.0 ng/mL [facility] Tacrolimuson 12-18-2024 Tacrolimus (Bld) [Mass/Vol] 4.7 ng/mL Normal <=15.0 [facility] Comment on above: Order Comment: NOTE: Result was obtained using achemiluminescent microparticle immunoassay(CMIA) on the [employer] i system.Optimal therapeutic ranges for immunosuppressantdrugs depend upon an individualpatient's current clinical state, type oforgan transplant, time post-transplant,co-administration of other immunosuppressants,and other clinical factors. The results ofthis test should be correlated with additionalclinical and laboratory data before changesin treatment regimens are made. Performed By: #### 1 1253-2 ####JASON Carrasquillo ([id number])[facility] ([facility])[address] [place] [address] Tacrolimus (Bld) [Mass/Vol]O rdered By: Nicki Gilmore on 12-18-2024 Interpretation and review of laboratory results Normal [facility] CBC W Auto Differential pane l (Bld)on 12-17-2024 Basophils (Bld) [#/Vol] 0.01 10*3/uL [facility] Basophils/100 WBC (Bld) 0.3 % 0.0 - 2.0 % [facility] Eosinophils (Bld) [#/Vol] 0.05 10*3/uL [facility] Eosinophils/100 WBC (Bld) 1.4 % 0.0 - 6.0 % [facility] Erythrocyte distribution width (RBC) [Ratio] 18.9 % High 11.5 - 14.5 % [facility] Hematocrit (Bld) [Volume fraction] 26.3 % Low 41.0 - 52.0 % [facility] Hemoglobin (Bld) [Mass/Vol] 8.3 g/dL Low 13.5 - 17.5 g/dL [facility] Immature granulocytes (Bld) [#/Vol] 0.02 10*3/uL [facility] Immature granulocytes/100 WBC (Bld) 0.6 % 0.0 - 0.9 % [facility] Interpretation and review of laboratory results Abnormal [facility] Lymphocytes (Bld) [#/Vol] 0.58 10*3/uL Low [facility] Lymphocytes/100 WBC (Bld) 16 % 13.0 - 44.0 % [facility] MCH (RBC) [Entitic mass] 25.9 pg Low 26.0 - 34.[address] [facility] MCHC (RBC) [Mass/Vol] 31.6 g/dL Low 32.0 - 36.0 g/dL [facility] MCV (RBC) [Entitic vol] 82 fL 80 - [address] [facility] Monocytes (Bld) [#/Vol] 0.2 10*3/uL [facility] Monocytes/100 WBC (Bld) 5.5 % 2.0 - 10.0 % [facility] Neutrophils (Bld) [#/Vol] 2.76 10*3/uL [facility] Neutrophils/100 WBC (Bld) 76.2 % 40.0 - 80.0 % [facility] Nucleated RBC/100 WBC (Bld) [Ratio] 0 % [facility] Platelets (Bld) [#/Vol] 122 10*3/uL Low [facility] RBC (Bld) [#/Vol] 3.21 10*6/uL Low [facility] WBC (Bld) [#/Vol] 3.6 10*3/uL [facility] Basophils (Bld) [#/Vol] 0.01 x10*3/uL Normal 0.00-0.10 [facility] Comment on above: Performed By: #### 5 7021-8 ####JASON Carrasquillo ([id number])[facility] ([facility])[address] [place] [address] Basophils/100 WBC (Bld) 0.3 % Normal 0.0-2.0 [facility] Comment on above: Performed By: #### 5 7021-8 ####JASON Carrasquillo ([id number])[facility] ([facility])[id number] [place] [address] Eosinophils (Bld) [#/Vol] 0.05 x10*3/uL Normal 0.00-0.70 [facility] Comment on above: Performed By: #### 5 7021-8 ####JASON JENNINGS L ([id number])[facility] ([facility])[address] [place] [address] Eosinophils/100 WBC (Bld) 1.4 % Normal 0.0-6.0 [facility] Comment on above: Performed By: #### 5 7021-8 ####JASON Carrasquillo ([id number])[facility] ([facility])[address] [place] [address] Erythrocyte distribution width (RBC) [Ratio] 18.9 % High 11.5-14.5 [facility] Comment on above: Performed By: #### 5 7021-8 ####JASON Carrasquillo ([id number])[facility] ([facility])[address] [place] [address] Hematocrit (Bld) [Volume fraction] 26.3 % Low 41.0-52.0 [facility] Comment on above: Performed By: #### 5 7021-8 ####JASON Carrasquillo ([id number])[facility] ([facility])[address] [place] [address] Hemoglobin (Bld) [Mass/Vol] 8.3 g/dL Low 13.5-17.5 [facility] Comment on above: Performed By: #### 5 7021-8 ####JASON Carrasquillo ([id number])[facility] ([facility])[address] [place] [address] Immature granulocytes (Bld) [#/Vol] 0.02 x10*3/uL Normal 0.00-0.70 [facility] Comment on above: Performed By: #### 5 7021-8 ####JASON Carrasquillo ([id number])[facility] ([facility])[address] [place] [address] Immature granulocytes/100 WBC (Bld) 0.6 % Normal 0.0-0.9 [facility] Comment on above: Result Comment: Shantell ture Granulocyte Count (IG) includes promyelocytes, myelocytes and metamyelocytes but does not include bands. Percent differential counts (%) should be interpreted in the context of the absolute cell counts (cells/UL). Performed By: #### 5 7021-8 ####JASON Carrasquillo ([id number])[facility] ([facility])[address] [place] [address] Lymphocytes (Bld) [#/Vol] 0.58 x10*3/uL Low 1.20-4.80 [facility] Comment on above: Performed By: #### 5 7021-8 ####JASON Carrasquillo ([id number])[facility] ([facility])[address] [place] [address] Lymphocytes/100 WBC (Bld) 16.0 % Normal 13.0-44.0 [facility] Comment on above: Performed By: #### 5 7021-8 ####JASON Carrasquillo ([id number])[facility] ([facility])[address] [place] [address] MCH (RBC) [Entitic mass] 25.9 pg Low 26.0-34.0 [facility] Comment on above: Performed By: #### 5 7021-8 ####JASON Carrasquillo ([id number])[facility] ([facility])[address] [place] [address] MCHC (RBC) [Mass/Vol] 31.6 g/dL Low 32.0-36.0 [facility] Comment on above: Performed By: #### 5 7021-8 ####JASON JENNINGS L ([id number])[facility] ([facility])[address] [place] [address] MCV (RBC) [Entitic vol] 82 fL Normal 80-100 [facility] Comment on above: Performed By: #### 5 7021-8 ####JASON Carrasquillo ([id number])[facility] ([facility])[id number] [place] [address] Monocytes (Bld) [#/Vol] 0.20 x10*3/uL Normal 0.10-1.00 [facility] Comment on above: Performed By: #### 5 7021-8 ####JASON Carrasquillo ([id number])[facility] ([facility])[address] [place] [address] Monocytes/100 WBC (Bld) 5.5 % Normal 2.0-10.0 [facility] Comment on above: Performed By: #### 5 7021-8 ####JASON Carrasquillo ([id number])[facility] ([facility])[address] [place] [address] Neutrophils (Bld) [#/Vol] 2.76 x10*3/uL Normal 1.20-7.70 [facility] Comment on above: Result Comment: Perc ent differential counts (%) should be interpreted in the context of the absolute cell counts (cells/uL). Performed By: #### 5 7021-8 ####JASON POPETZGREG L ([id number])[facility] ([facility])[address] [place] [address] Neutrophils/100 WBC (Bld) 76.2 % Normal 40.0-80.0 [facility] Comment on above: Performed By: #### 5 7021-8 ####JASON Carrasquillo ([id number])[facility] ([facility])[address] [place] [address] Nucleated RBC/100 WBC (Bld) [Ratio] 0.0 /100 WBCs Normal 0.0-0.0 [facility] Comment on above: Performed By: #### 5 7021-8 ####JASON Carrasquillo ([id number])[facility] ([facility])[address] [place] [address] Platelets (Bld) [#/Vol] 122 x10*3/uL Low 150-450 [facility] Comment on above: Performed By: #### 5 7021-8 ####JASON Carrasquillo ([id number])[facility] ([facility])[address] [place] [address] RBC (Bld) [#/Vol] 3.21 x10*6/uL Low 4.50-5.90 [facility] Comment on above: Performed By: #### 5 7021-8 ####JASON Carrasquillo ([id number])[facility] ([facility])[address] [place] [address] WBC (Bld) [#/Vol] 3.6 x10*3/uL Low 4.4-11.3 [facility] Comment on above: Performed By: #### 5 7021-8 ####AJSON Carrasquillo ([id number])[facility] ([facility])[address] [place] [address] Glucose Test strip manual (B ld) [Mass/Vol]on 12-17-2024 Glucose [Mass/Vol] 184 mg/dL High 74 - 99 mg/dL [facility] Interpretation and review of laboratory results Abnormal [facility] Glucose [Mass/Vol] 184 mg/dL High 74-99 [facility] Comment on above: Performed By: #### 2 341-6 ####JASON Carrasquillo ([id number])[facility] ([facility])[address] [place] [address] Glucose [Mass/Vol] 145 mg/dL High 74 - 99 mg/dL [facility] Interpretation and review of laboratory results Abnormal [facility] Glucose [Mass/Vol] 145 mg/dL High 74-99 [facility] Comment on above: Performed By: #### 2 341-6 ####JASON Carrasquillo ([id number])[facility] ([facility])[address] [place] [address] Glucose [Mass/Vol] 120 mg/dL High 74 - 99 mg/dL [facility] Interpretation and review of laboratory results Abnormal [facility] Glucose [Mass/Vol] 120 mg/dL High 74-99 [facility] Comment on above: Performed By: #### 2 341-6 ####JASON Carrasquillo ([id number])[facility] ([facility])[address] [place] [address] Glucose [Mass/Vol] 285 mg/dL High 74 - 99 mg/dL [facility] Interpretation and review of laboratory results Abnormal [facility] Glucose [Mass/Vol] 285 mg/dL High 74-99 [facility] Comment on above: Performed By: #### 2 341-6 ####JASON Carrasquillo ([id number])[facility] ([facility])[address] [place] [address] Glucose [Mass/Vol] 294 mg/dL High 74 - 99 mg/dL [facility] Interpretation and review of laboratory results Abnormal [facility] Glucose [Mass/Vol] 294 mg/dL High 74-99 [facility] Comment on above: Performed By: #### 2 341-6 ####JASON Carrasquillo ([id number])[facility] ([facility])[address] [place] [address] Magnesiumon 12-17-2024 Magnesium [Mass/Vol] 1.73 mg/dL 1.60 - 2.40 mg/dL [facility] Magnesium [Mass/Vol] 1.73 mg/dL Normal 1.60-2.40 [facility] Comment on above: Performed By: #### 1 9123-9 ####JASON Carrasquillo ([id number])[facility] ([facility])[address] [place] [address] Magnesium [Mass/Vol]on 12-17 Interpretation and review of laboratory results Normal [facility] No Panel Informationon 12-[address] [facility] Renal function 2000 panelon 12-17-2024 Albumin BCP dye [Mass/Vol] 2.9 g/dL Low 3.4 - 5.0 g/dL [facility] Anion gap [Moles/Vol] 12 mmol/L 10 - 20 mmol/L [facility] Calcium [Mass/Vol] 8.8 mg/dL 8.6 - 10. 6 mg/dL [facility] Chloride [Moles/Vol] 107 mmol/L 98 - 10 7 mmol/L [facility] CO2 [Moles/Vol] 19 mmol/L Low 21 - 32 mmol/L [facility] Creatinine [Mass/Vol] 3.07 mg/dL High 0.50 - 1.30 mg/dL [facility] GFR/1.73 sq M.predicted among non-blacks MDRD (S/P/Bld) [Vol rate/Area] 23 mL/min/{1.73_m2} Low - PINF [facility] Glucose [Mass/Vol] 292 mg/dL High 74 - 99 mg/dL [facility] Interpretation and review of laboratory results Abnormal [facility] Phosphate [Mass/Vol] 3.4 mg/dL 2.5 - 4 .9 mg/dL [facility] Potassium [Moles/Vol] 5.2 mmol/L 3.5 - 5.3 mmol/L [facility] Sodium [Moles/Vol] 133 mmol/L Low 136 - 145 mmol/L [facility] Urea nitrogen [Mass/Vol] 69 mg/dL High 6 - 23 mg/dL [facility] Albumin BCP dye [Mass/Vol] 2.9 g/dL Low 3.4-5.0 [facility] Comment on above: Performed By: #### 2 4362-6 ####JASON Carrasquillo ([id number])[facility] ([facility])[address] [place] [address] Anion gap [Moles/Vol] 12 mmol/L Normal 10-20 [facility] Comment on above: Performed By: #### 2 4362-6 ####JASON Carrasquillo ([id number])[facility] ([facility])[address] [place] [address] Calcium [Mass/Vol] 8.8 mg/dL Normal 8.6-10.6 [facility] Comment on above: Performed By: #### 2 4362-6 ####JASON Carrasquillo ([id number])[facility] ([facility])[address] [place] [address] Chloride [Moles/Vol] 107 mmol/L Normal 98-107 [facility] Comment on above: Performed By: #### 2 4362-6 ####JASON Carrasquillo ([id number])[facility] ([facility])[address] [place] [address] CO2 [Moles/Vol] 19 mmol/L Low 21-32 [facility] Comment on above: Performed By: #### 2 4362-6 ####JASON Carrasquillo ([id number])[facility] ([facility])[address] [place] [address] Creatinine [Mass/Vol] 3.07 mg/dL High 0.50-1.30 [facility] Comment on above: Performed By: #### 2 4362-6 ####JASON Carrasquillo ([id number])[facility] ([facility])[address] [place] [address] Glomerular filtration rate/1.73 sq M.predicted 23 mL/min/1.73m*2 Low >60 [facility] Comment on above: Result Comment: Calc ulations of estimated GFR are performed using the 2020 CKD-EPI Study Refit equation without the race variable for the IDMS-Traceable creatinine methods.https://jasn.asnjournals.org/content// N.2588496832 Performed By: #### 2 4362-6 ####JASON Carrasquillo ([id number])[facility] ([facility])[address] [place] [address] Glucose [Mass/Vol] 292 mg/dL High 74-99 [facility] Comment on above: Performed By: #### 2 4362-6 ####JASON JENNINGS L ([id number])[facility] ([facility])[address] [place] [address] Phosphate [Mass/Vol] 3.4 mg/dL Normal 2.5-4.9 [facility] Comment on above: Performed By: #### 2 4362-6 ####JASON JENNINGS L ([id number])[facility] ([facility])[address] [place] [address] Potassium [Moles/Vol] 5.2 mmol/L Normal 3.5-5.3 [facility] Comment on above: Performed By: #### 2 4362-6 ####JASON JENNINGS L ([id number])[facility] ([facility])[address] [place] [address] Sodium [Moles/Vol] 133 mmol/L Low 136-145 [facility] Comment on above: Performed By: #### 2 4362-6 ####JASON JENNINGS L ([id number])[facility] ([facility])[address] [place] [address] Urea nitrogen [Mass/Vol] 69 mg/dL High 6-23 [facility] Comment on above: Performed By: #### 2 4362-6 ####JASON JENNINGS L ([id number])[facility] ([facility])[address] [place] [address] TacrolimusOrdered By: Anibal Sarkar on 12-17-2024 Tacrolimus (Bld) [Mass/Vol] 5.1 ng/mL NINF - 15.0 ng/mL [facility] Tacrolimuson 12-17-2024 Tacrolimus (Bld) [Mass/Vol] 5.1 ng/mL Normal <=15.0 [facility] Comment on above: Order Comment: NOTE: Result was obtained using achemiluminescent microparticle immunoassay(CMIA) on the [employer] system.Optimal therapeutic ranges for immunosuppressantdrugs depend upon an individualpatient's current clinical state, type oforgan transplant, time post-transplant,co-administration of other immunosuppressants,and other clinical factors. The results ofthis test should be correlated with additionalclinical and laboratory data before changesin treatment regimens are made. Performed By: #### 1 1253-2 ####JASON Carrasquillo ([id number])[facility] ([facility])[address] [place] [address] Tacrolimus (Bld) [Mass/Vol]O rdered By: Anibal Sarkar on 12-17-2024 Interpretation and review of laboratory results Normal [facility] CBC W Auto Differential pane l (Bld)on 12-16-2024 Basophils (Bld) [#/Vol] 0.01 10*3/uL [facility] Basophils/100 WBC (Bld) 0.2 % 0.0 - 2.0 % [facility] Eosinophils (Bld) [#/Vol] 0.07 10*3/uL [facility] Eosinophils/100 WBC (Bld) 1.6 % 0.0 - 6.0 % [facility] Erythrocyte distribution width (RBC) [Ratio] 18.6 % High 11.5 - 14.5 % [facility] Hematocrit (Bld) [Volume fraction] 27.8 % Low 41.0 - 52.0 % [facility] Hemoglobin (Bld) [Mass/Vol] 8.9 g/dL Low 13.5 - 17.5 g/dL [facility] Immature granulocytes (Bld) [#/Vol] 0.02 10*3/uL [facility] Immature granulocytes/100 WBC (Bld) 0.4 % 0.0 - 0.9 % [facility] Interpretation and review of laboratory results Abnormal [facility] Lymphocytes (Bld) [#/Vol] 0.71 10*3/uL Low [facility] Lymphocytes/100 WBC (Bld) 15.9 % 13.0 - 44.0 % [facility] MCH (RBC) [Entitic mass] 26.4 pg 26.0 - 34.[address] [facility] MCHC (RBC) [Mass/Vol] 32 g/dL 32.0 - 36.0 g/dL [facility] MCV (RBC) [Entitic vol] 83 fL 80 - [address] [facility] Monocytes (Bld) [#/Vol] 0.27 10*3/uL [facility] Monocytes/100 WBC (Bld) 6.1 % 2.0 - 10.0 % [facility] [facility] Neut[facility] (Bld) [#/Vol] 3.38 10*3/uL [facility] Neutrophils/100 WBC (Bld) 75.8 % 40.0 - 80.0 % [facility] Nucleated RBC/100 WBC (Bld) [Ratio] 0 % [facility] Platelets (Bld) [#/Vol] 115 10*3/uL Low [facility] RBC (Bld) [#/Vol] 3.37 10*6/uL [facility] WBC (Bld) [#/Vol] 4.5 10*3/uL [facility] Basophils (Bld) [#/Vol] 0.01 x10*3/uL Normal 0.00-0.10 [facility] Comment on above: Performed By: #### 5 7021-8 ####JASON Carrasquillo ([id number])[facility] ([facility])[address] [place] [address] Basophils/100 WBC (Bld) 0.2 % Normal 0.0-2.0 [facility] Comment on above: Performed By: #### 5 7021-8 ####JASON Carrasquillo ([id number])[facility] ([facility])[address] [place] [address] Eosinophils (Bld) [#/Vol] 0.07 x10*3/uL Normal 0.00-0.70 [facility] Comment on above: Performed By: #### 5 7021-8 ####JASON Carrasquillo ([id number])[facility] ([facility])[id number] [place] [address] Eosinophils/100 WBC (Bld) 1.6 % Normal 0.0-6.0 [facility] Comment on above: Performed By: #### 5 7021-8 ####JASON Carrasquillo ([id number])[facility] ([facility])[id number] [place] [address] Erythrocyte distribution width (RBC) [Ratio] 18.6 % High 11.5-14.5 [facility] Comment on above: Performed By: #### 5 7021-8 ####JASON Carrasquillo ([id number])[facility] ([facility])[id number] [place] [address] Hematocrit (Bld) [Volume fraction] 27.8 % Low 41.0-52.0 [facility] Comment on above: Performed By: #### 5 7021-8 ####JASON Carrasquillo ([id number])[facility] ([facility])[id number] [place] [address] Hemoglobin (Bld) [Mass/Vol] 8.9 g/dL Low 13.5-17.5 [facility] Comment on above: Performed By: #### 5 7021-8 ####JASON Carrasquillo ([id number])[facility] ([facility])[id number] [place] [address] Immature granulocytes (Bld) [#/Vol] 0.02 x10*3/uL Normal 0.00-0.70 [facility] Comment on above: Performed By: #### 5 7021-8 ####JASON Carrasquillo ([id number])[facility] ([facility])[address] [place] [address] Immature granulocytes/100 WBC (Bld) 0.4 % Normal 0.0-0.9 [facility] Comment on above: Result Comment: Shantell ture Granulocyte Count (IG) includes promyelocytes, myelocytes and metamyelocytes but does not include bands. Percent differential counts (%) should be interpreted in the context of the absolute cell counts (cells/UL). Performed By: #### 5 7021-8 ####JASON Carrasquillo ([id number])[facility] ([facility])[address] [place] [address] Lymphocytes (Bld) [#/Vol] 0.71 x10*3/uL Low 1.20-4.80 [facility] Comment on above: Performed By: #### 5 7021-8 ####JASON Carrasquillo ([id number])[facility] ([facility])[address] [place] [address] Lymphocytes/100 WBC (Bld) 15.9 % Normal 13.0-44.0 [facility] Comment on above: Performed By: #### 5 7021-8 ####JASON Carrasquillo ([id number])[facility] ([facility])[address] [place] [address] MCH (RBC) [Entitic mass] 26.4 pg Normal 26.0-34.0 [facility] Comment on above: Performed By: #### 5 7021-8 ####JASON Carrasquillo ([id number])[facility] ([facility])[address] [place] [address] MCHC (RBC) [Mass/Vol] 32.0 g/dL Normal 32.0-36.0 [facility] Comment on above: Performed By: #### 5 7021-8 ####JASON JENNINGS L ([id number])[facility] ([facility])[address] [place] [address] MCV (RBC) [Entitic vol] 83 fL Normal 80-100 [facility] Comment on above: Performed By: #### 5 7021-8 ####JASON JENNINGS L ([id number])[facility] ([facility])[address] [place] [address] Monocytes (Bld) [#/Vol] 0.27 x10*3/uL Normal 0.10-1.00 [facility] Comment on above: Performed By: #### 5 7021-8 ####JASON POPETZER L ([id number])[facility] ([facility])[address] [place] [address] Monocytes/100 WBC (Bld) 6.1 % Normal 2.0-10.0 [facility] Comment on above: Performed By: #### 5 7021-8 ####JASON CLARKMOTZER L ([id number])[facility] ([facility])[address] [place] [address] Neutrophils (Bld) [#/Vol] 3.38 x10*3/uL Normal 1.20-7.70 [facility] Comment on above: Result Comment: Perc ent differential counts (%) should be interpreted in the context of the absolute cell counts (cells/uL). Performed By: #### 5 7021-8 ####JASON CLARKMOTZER L ([id number])[facility] ([facility])[address] [place] [address] Neutrophils/100 WBC (Bld) 75.8 % Normal 40.0-80.0 [facility] Comment on above: Performed By: #### 5 7021-8 ####JASON CLARKMOTZER L ([id number])[facility] ([facility])[address] [place] [address] Nucleated RBC/100 WBC (Bld) [Ratio] 0.0 /100 WBCs Normal 0.0-0.0 [facility] Comment on above: Performed By: #### 5 7021-8 ####JASON CLARKMOTZER L ([id number])[facility] ([facility])[address] [place] [address] Platelets (Bld) [#/Vol] 115 x10*3/uL Low 150-450 [facility] Comment on above: Performed By: #### 5 7021-8 ####JASON CLARKMOTZER L ([id number])[facility] ([facility])[address] [place] [address] RBC (Bld) [#/Vol] 3.37 x10*6/uL Low 4.50-5.90 [facility] Comment on above: Performed By: #### 5 7021-8 ####JASON Carrasquillo ([id number])[facility] ([facility])[address] [place] [address] WBC (Bld) [#/Vol] 4.5 x10*3/uL Normal 4.4-11.3 [facility] Comment on above: Performed By: #### 5 7021-8 ####JASON Carrasquillo ([id number])[facility] ([facility])[id number] [place] [address] Extra Urine Gan TubeOrdered By: Bakari Schmid on 12-16-[address] [facility] Work Phone: Glucose Test strip manual (B ld) [Mass/Vol]on 12-16-2024 Glucose [Mass/Vol] 235 mg/dL High 74 - 99 mg/dL [facility] Interpretation and review of laboratory results Abnormal [facility] Glucose [Mass/Vol] 235 mg/dL High 74-99 [facility] Comment on above: Performed By: #### 2 341-6 ####JASON Carrasquillo ([id number])[facility] ([facility])[address] [place] [address] Glucose [Mass/Vol] 244 mg/dL High 74 - 99 mg/dL [facility] Interpretation and review of laboratory results Abnormal [facility] Glucose [Mass/Vol] 244 mg/dL High 74-99 [facility] Comment on above: Performed By: #### 2 341-6 ####JASON Carrasquillo ([id number])[facility] ([facility])[address] [place] [address] Glucose [Mass/Vol] 242 mg/dL High 74 - 99 mg/dL [facility] Interpretation and review of laboratory results Abnormal [facility] Glucose [Mass/Vol] 242 mg/dL High 74-99 [facility] Comment on above: Performed By: #### 2 341-6 ####JASON Carrasquillo ([id number])[facility] ([facility])[address] [place] [address] Glucose [Mass/Vol] 231 mg/dL High 74 - 99 mg/dL [facility] Interpretation and review of laboratory results Abnormal [facility] Glucose [Mass/Vol] 231 mg/dL High 74-99 [facility] Comment on above: Performed By: #### 2 341-6 ####JASON Carrasquillo ([id number])[facility] ([facility])[address] [place] [address] Magnesiumon 12-16-2024 Magnesium [Mass/Vol] 1.83 mg/dL 1.60 - 2.40 mg/dL [facility] Magnesium [Mass/Vol] 1.83 mg/dL Normal 1.60-2.40 [facility] Comment on above: Performed By: #### 1 9123-9 ####JASON Carrasquillo ([id number])[facility] ([facility])[address] [place] [address] Magnesium [Mass/Vol]on 12-16 Interpretation and review of laboratory results Normal [facility] No Panel Informationon 12-16 Dispense Status PT [facility] Unit RH Positive [facility] XM INTEP COMP [facility] Prepare RBC: 1 Unitson 12-16 Blood Expiration Date 12/16/2024 11:59:00 PM EDT [facility] PRODUCT BLOOD TYPE 5100 [facility] PRODUCT CODE [id number] [facility] Unit ABO O [facility] Unit Number [id number] [facility] UNIT VOLUME [address] [facility] Blood Expiration Date 12/27/2024 11:59:00 PM EDT [facility] PRODUCT BLOOD TYPE 7300 [facility] PRODUCT CODE [id number] [facility] Unit ABO B [facility] Unit Number [id number] [facility] UNIT VOLUME [address] [facility] Renal function 2000 panelon 12-16-2024 Albumin BCP dye [Mass/Vol] 3 g/dL Low 3.4 - 5.0 g/dL [facility] Anion gap [Moles/Vol] 12 mmol/L 10 - 20 mmol/L [facility] Calcium [Mass/Vol] 8.8 mg/dL 8.6 - 10. 6 mg/dL [facility] Chloride [Moles/Vol] 105 mmol/L 98 - 10 7 mmol/L [facility] CO2 [Moles/Vol] 21 mmol/L 21 - 32 mmol/L [facility] Creatinine [Mass/Vol] 3.09 mg/dL High 0.50 - 1.30 mg/dL [facility] GFR/1.73 sq M.predicted among non-blacks MDRD (S/P/Bld) [Vol rate/Area] 23 mL/min/{1.73_m2} Low - PINF [facility] Glucose [Mass/Vol] 250 mg/dL High 74 - 99 mg/dL [facility] Interpretation and review of laboratory results Abnormal [facility] Phosphate [Mass/Vol] 4.2 mg/dL 2.5 - 4 .9 mg/dL [facility] Potassium [Moles/Vol] 4.5 mmol/L 3.5 - 5.3 mmol/L [facility] Sodium [Moles/Vol] 133 mmol/L Low 136 - 145 mmol/L [facility] Urea nitrogen [Mass/Vol] 78 mg/dL High 6 - 23 mg/dL [facility] Albumin BCP dye [Mass/Vol] 3.0 g/dL Low 3.4-5.0 [facility] Comment on above: Performed By: #### 2 4362-6 ####JASON Carrasquillo ([id number])[facility] ([facility])[id number] [place] [address] Anion gap [Moles/Vol] 12 mmol/L Normal 10-20 [facility] Comment on above: Performed By: #### 2 4362-6 ####JASON Carrasquillo ([id number])[facility] ([facility])[address] [place] [address] Calcium [Mass/Vol] 8.8 mg/dL Normal 8.6-10.6 [facility] Comment on above: Performed By: #### 2 4362-6 ####JASON JENNINGS L ([id number])[facility] ([facility])[address] [place] [address] Chloride [Moles/Vol] 105 mmol/L Normal 98-107 [facility] Comment on above: Performed By: #### 2 4362-6 ####JASON Carrasquillo ([id number])[facility] ([facility])[address] [place] [address] CO2 [Moles/Vol] 21 mmol/L Normal 21-32 [facility] Comment on above: Performed By: #### 2 4362-6 ####JASON Carrasquillo ([id number])[facility] ([facility])[address] [place] [address] Creatinine [Mass/Vol] 3.09 mg/dL High 0.50-1.30 [facility] Comment on above: Performed By: #### 2 4362-6 ####JASON Carrasquillo ([id number])[facility] ([facility])[address] [place] [address] Glomerular filtration rate/1.73 sq M.predicted 23 mL/min/1.73m*2 Low >60 [facility] Comment on above: Result Comment: Calc ulations of estimated GFR are performed using the 2020 CKD-EPI Study Refit equation without the race variable for the IDMS-Traceable creatinine methods.https://jasn.asnjournals.org/content/early/ N.9402129994 Performed By: #### 2 4362-6 ####JASON Carrasquillo ([id number])[facility] ([facility])[address] [facility] [place] [address] Glucose [Mass/Vol] 250 mg/dL High 74-99 [facility] Comment on above: Performed By: #### 2 4362-6 ####JASON Carrasquillo ([id number])[facility] ([facility])[address] [place] [address] Phosphate [Mass/Vol] 4.2 mg/dL Normal 2.5-4.9 [facility] Comment on above: Performed By: #### 2 4362-6 ####JASON Carrasquillo ([id number])[facility] ([facility])[address] [place] [address] Potassium [Moles/Vol] 4.5 mmol/L Normal 3.5-5.3 [facility] Comment on above: Performed By: #### 2 4362-6 ####JASON Carrasquillo ([id number])[facility] ([facility])[address] [place] [address] Sodium [Moles/Vol] 133 mmol/L Low 136-145 [facility] Comment on above: Performed By: #### 2 4362-6 ####JASON Carrasquillo ([id number])[facility] ([facility])[address] [place] [address] Urea nitrogen [Mass/Vol] 78 mg/dL High 6-23 [facility] Comment on above: Performed By: #### 2 4362-6 ####JASON Carrasquillo ([id number])[facility] ([facility])[address] [place] [address] TacrolimusOrdered By: Kristine Santana on 12-16-2024 Tacrolimus (Bld) [Mass/Vol] 5.8 ng/mL NINF - 15.0 ng/mL [facility] Tacrolimuson 12-16-2024 Tacrolimus (Bld) [Mass/Vol] 5.8 ng/mL Normal <=15.0 [facility] Comment on above: Order Comment: NOTE: Result was obtained using achemiluminescent microparticle immunoassay(CMIA) on the [employer] system.Optimal therapeutic ranges for immunosuppressantdrugs depend upon an individualpatient's current clinical state, type oforgan transplant, time post-transplant,co-administration of other immunosuppressants,and other clinical factors. The results ofthis test should be correlated with additionalclinical and laboratory data before changesin treatment regimens are made. Performed By: #### 1 1253-2 ####JASON Carrasquillo ([id number])[facility] ([facility])[address] [place] [address] Tacrolimus (Bld) [Mass/Vol]O rdered By: Kristine Santana on 12-16-2024 Interpretation and review of laboratory results Normal [facility] CBC W Auto Differential pane l (Bld)on 12-15-2024 Basophils (Bld) [#/Vol] 0.01 10*3/uL [facility] Basophils/100 WBC (Bld) 0.2 % 0.0 - 2.0 % [facility] Eosinophils (Bld) [#/Vol] 0.04 10*3/uL [facility] Eosinophils/100 WBC (Bld) 0.9 % 0.0 - 6.0 % [facility] Erythrocyte distribution width (RBC) [Ratio] 18.5 % High 11.5 - 14.5 % [facility] Hematocrit (Bld) [Volume fraction] 24.6 % Low 41.0 - 52.0 % [facility] Hemoglobin (Bld) [Mass/Vol] 7.7 g/dL Low 13.5 - 17.5 g/dL [facility] Immature granulocytes (Bld) [#/Vol] 0.03 10*3/uL [facility] Immature granulocytes/100 WBC (Bld) 0.7 % 0.0 - 0.9 % [facility] Interpretation and review of laboratory results Abnormal [facility] Lymphocytes (Bld) [#/Vol] 0.28 10*3/uL Low [facility] Lymphocytes/100 WBC (Bld) 6.5 % 13.0 - 44.0 % [facility] MCH (RBC) [Entitic mass] 25.3 pg Low 26.0 - 34.[address] [facility] MCHC (RBC) [Mass/Vol] 31.3 g/dL Low 32.0 - 36.0 g/dL [facility] MCV (RBC) [Entitic vol] 81 fL 80 - [address] [facility] Monocytes (Bld) [#/Vol] 0.2 10*3/uL [facility] Monocytes/100 WBC (Bld) 4.6 % 2.0 - 10.0 % [facility] Neutrophils (Bld) [#/Vol] 3.76 10*3/uL [facility] Neutrophils/100 WBC (Bld) 87.1 % 40.0 - 80.0 % [facility] Nucleated RBC/100 WBC (Bld) [Ratio] 0 % [facility] Platelets (Bld) [#/Vol] 100 10*3/uL Low [facility] RBC (Bld) [#/Vol] 3.04 10*6/uL Low [facility] WBC (Bld) [#/Vol] 4.3 10*3/uL [facility] Basophils (Bld) [#/Vol] 0.01 x10*3/uL Normal 0.00-0.10 [facility] Comment on above: Performed By: #### 5 7021-8 ####JASON Carrasquillo ([id number])[facility] ([facility])[address] [place] [address] Basophils/100 WBC (Bld) 0.2 % Normal 0.0-2.0 [facility] Comment on above: Performed By: #### 5 7021-8 ####JASON JENNINGS L ([id number])[facility] ([facility])[address] [place] [address] Eosinophils (Bld) [#/Vol] 0.04 x10*3/uL Normal 0.00-0.70 [facility] Comment on above: Performed By: #### 5 7021-8 ####JASON Carrasquillo ([id number])[facility] ([facility])[address] [place] [address] Eosinophils/100 WBC (Bld) 0.9 % Normal 0.0-6.0 [facility] Comment on above: Performed By: #### 5 7021-8 ####JASON Carrasquillo ([id number])[facility] ([facility])[address] [place] [address] Erythrocyte distribution width (RBC) [Ratio] 18.5 % High 11.5-14.5 [facility] Comment on above: Performed By: #### 5 7021-8 ####JASON Carrasquillo ([id number])[facility] ([facility])[address] [place] [address] Hematocrit (Bld) [Volume fraction] 24.6 % Low 41.0-52.0 [facility] Comment on above: Performed By: #### 5 7021-8 ####JASON Carrasquillo ([id number])[facility] ([facility])[address] [place] [address] Hemoglobin (Bld) [Mass/Vol] 7.7 g/dL Low 13.5-17.5 [facility] Comment on above: Performed By: #### 5 7021-8 ####JASON Carrasquillo ([id number])[facility] ([facility])[id number] [place] [address] Immature granulocytes (Bld) [#/Vol] 0.03 x10*3/uL Normal 0.00-0.70 [facility] Comment on above: Performed By: #### 5 7021-8 ####JASON Carrasquillo ([id number])[facility] ([facility])[address] [place] [address] Immature granulocytes/100 WBC (Bld) 0.7 % Normal 0.0-0.9 [facility] Comment on above: Result Comment: Shantell ture Granulocyte Count (IG) includes promyelocytes, myelocytes and metamyelocytes but does not include bands. Percent differential counts (%) should be interpreted in the context of the absolute cell counts (cells/UL). Performed By: #### 5 7021-8 ####JASON Carrasquillo ([id number])[facility] ([facility])[address] [place] [address] Lymphocytes (Bld) [#/Vol] 0.28 x10*3/uL Low 1.20-4.80 [facility] Comment on above: Performed By: #### 5 7021-8 ####JASON Carrasquillo ([id number])[facility] ([facility])[id number] [place] [address] Lymphocytes/100 WBC (Bld) 6.5 % Normal 13.0-44.0 [facility] Comment on above: Performed By: #### 5 7021-8 ####JASON Carrasquillo ([id number])[facility] ([facility])[address] [place] [address] MCH (RBC) [Entitic mass] 25.3 pg Low 26.0-34.0 [facility] Comment on above: Performed By: #### 5 7021-8 ####JASON Carrasquillo ([id number])[facility] ([facility])[address] [place] [address] MCHC (RBC) [Mass/Vol] 31.3 g/dL Low 32.0-36.0 [facility] Comment on above: Performed By: #### 5 7021-8 ####JASON Carrasquillo ([id number])[facility] ([facility])[address] [place] [address] MCV (RBC) [Entitic vol] 81 fL Normal 80-100 [facility] Comment on above: Performed By: #### 5 7021-8 ####JASON Carrasquillo ([id number])[facility] ([facility])[id number] [place] [address] Monocytes (Bld) [#/Vol] 0.20 x10*3/uL Normal 0.10-1.00 [facility] Comment on above: Performed By: #### 5 7021-8 ####JASON Carrasquillo ([id number])[facility] ([facility])[address] [place] [address] Monocytes/100 WBC (Bld) 4.6 % Normal 2.0-10.0 [facility] Comment on above: Performed By: #### 5 7021-8 ####JASON Carrasquillo ([id number])[facility] ([facility])[address] [place] [address] Neutrophils (Bld) [#/Vol] 3.76 x10*3/uL Normal 1.20-7.70 [facility] Comment on above: Result Comment: Perc ent differential counts (%) should be interpreted in the context of the absolute cell counts (cells/uL). Performed By: #### 5 7021-8 ####JASON Carrasquillo ([id number])[facility] ([facility])[address] [place] [address] Neutrophils/100 WBC (Bld) 87.1 % Normal 40.0-80.0 [facility] Comment on above: Performed By: #### 5 7021-8 ####JASON Carrasquillo ([id number])[facility] ([facility])[address] [place] [address] Nucleated RBC/100 WBC (Bld) [Ratio] 0.0 /100 WBCs Normal 0.0-0.0 [facility] Comment on above: Performed By: #### 5 7021-8 ####JASON Carrasquillo ([id number])[facility] ([facility])[address] [place] [address] Platelets (Bld) [#/Vol] 100 x10*3/uL Low 150-450 [facility] Comment on above: Performed By: #### 5 7021-8 ####JASON Carrasquillo ([id number])[facility] ([facility])[address] [place] [address] RBC (Bld) [#/Vol] 3.04 x10*6/uL Low 4.50-5.90 [facility] Comment on above: Performed By: #### 5 7021-8 ####JASON Carrasquillo ([id number])[facility] ([facility])[address] [place] [address] WBC (Bld) [#/Vol] 4.3 x10*3/uL Low 4.4-11.3 [facility] Comment on above: Performed By: #### 5 7021-8 ####JASON Carrasquillo ([id number])[facility] ([facility])[address] [place] [address] CBC panel Auto (Bld)on 12-15 Erythrocyte distribution width (RBC) [Ratio] 18.5 % High 11.5 - 14.5 % [facility] Hematocrit (Bld) [Volume fraction] 22.9 % Low 41.0 - 52.0 % [facility] Hemoglobin (Bld) [Mass/Vol] 7.2 g/dL Low 13.5 - 17.5 g/dL [facility] Interpretation and review of laboratory results Abnormal [facility] MCH (RBC) [Entitic mass] 25.7 pg Low 26.0 - 34.[address] [facility] MCHC (RBC) [Mass/Vol] 31.4 g/dL Low 32.0 - 36.0 g/dL [facility] MCV (RBC) [Entitic vol] 82 fL 80 - [address] [facility] Nucleated RBC/100 WBC (Bld) [Ratio] 0 % [facility] Platelets (Bld) [#/Vol] 72 10*3/uL Low [facility] RBC (Bld) [#/Vol] 2.8 10*6/uL Low [facility] WBC (Bld) [#/Vol] 4.2 10*3/uL Low [facility] Erythrocyte distribution width (RBC) [Ratio] 18.5 % High 11.5-14.5 [facility] Comment on above: Performed By: #### 5 8410-2 ####JASON Carrasquillo ([id number])[facility] ([facility])[address] [place] [address] Hematocrit (Bld) [Volume fraction] 22.9 % Low 41.0-52.0 [facility] Comment on above: Performed By: #### 5 8410-2 ####JASON Carrasquillo ([id number])[facility] ([facility])[address] [place] [address] Hemoglobin (Bld) [Mass/Vol] 7.2 g/dL Low 13.5-17.5 [facility] Comment on above: Performed By: #### 5 8410-2 ####JASON Carrasquillo ([id number])[facility] ([facility])[address] [place] [address] MCH (RBC) [Entitic mass] 25.7 pg Low 26.0-34.0 [facility] Comment on above: Performed By: #### 5 8410-2 ####JASON Carrasquillo ([id number])[facility] ([facility])[address] [place] [address] MCHC (RBC) [Mass/Vol] 31.4 g/dL Low 32.0-36.0 [facility] Comment on above: Performed By: #### 5 8410-2 ####JASON Carrasquillo ([id number])[facility] ([facility])[address] [place] [address] MCV (RBC) [Entitic vol] 82 fL Normal 80-100 [facility] Comment on above: Performed By: #### 5 8410-2 ####JASON Carrasquillo ([id number])[facility] ([facility])[address] [place] [address] Nucleated RBC/100 WBC (Bld) [Ratio] 0.0 /100 WBCs Normal 0.0-0.0 [facility] Comment on above: Performed By: #### 5 8410-2 ####JASON Carrasquillo ([id number])[facility] ([facility])[address] [place] [address] Platelets (Bld) [#/Vol] 72 x10*3/uL Low 150-450 [facility] Comment on above: Performed By: #### 5 8410-2 ####JASON Carrasquillo ([id number])[facility] ([facility])[address] [place] [address] RBC (Bld) [#/Vol] 2.80 x10*6/uL Low 4.50-5.90 [facility] Comment on above: Performed By: #### 5 8410-2 ####JASON Carrasquillo ([id number])[facility] ([facility])[address] [place] [address] WBC (Bld) [#/Vol] 4.2 x10*3/uL Low 4.4-11.3 [facility] Comment on above: Performed By: #### 5 8410-2 ####JASON Carrasquillo ([id number])[facility] ([facility])[address] [place] [address] Cell-free DNA.donor/Cell-parth e DNA.total^post kidney transplanton 12-15-2024 Annotation comment [Interpretation] Narrative Normal [facility] Comment on above: Performed By: #### 9 9787-4 ####[facility] ([id number])32[address] [facility] [place] [address] [facility]ED[employer]_ORDER_ID [id number] Normal [facility] Comment on above: Performed By: #### 9 9787-4 ####CAREDX ([id number])3260 [facility] [place] [address] Cell-free DNA.donor/Cell-free DNA.total^post kidney transplant 0.54 % Normal See [facility] Comment on above: Performed By: #### 9 9787-4 ####CAREDX ([id number])3260 [facility] [place] [place] [address] CENTER_ORDER_ID [facility]_[id number] Normal [facility] Comment on above: Performed By: #### 9 9787-4 ####CAREDX ([id number])3260 BAYSHMARIA GUADALUPE MULTANI [address] [place] Date transplant 10/15/2024 [facility] Comment on above: Performed By: #### 9 9787-4 ####CAREDX ([id number])3260 MARIA GUADALUPE LING [address] [place] Months^post transplant 0y 2m 0d [facility] Comment on above: Performed By: #### 9 9787-4 ####[employer]EDX ([id number])3260 HERBERTMARIA GUADALUPE MULTANI [address] [place] NOTES - ALLOSURE See Note [facility] Comment on above: Result Comment: INTE RPRETATION OF ALLOSURE KIDNEY RESULTSAlloSure measures the percent of donor-derived cell-free DNA (dd-cfDNA) in the total cell-free DNA present in kidney transplant recipients.(1),(2) AlloSure Relative Change Value (RCV) representsthe percentage change from previous AlloSure Result.(4),(5)When interpreting AlloSure Result:>=1.0% dd-cfDNA is associated with a higher probability of active rejection compared to scores less than 1.0%.(2),(3)0.21% dd-cfDNA is the median observed in a reference population of stable recipients.(4)When interpreting AlloSure RCV:*>61% increase in AlloSure Result from prior result exceeds the biological variability observed in the reference population.(4)>=149% increase in AlloSure Result from prior result may indicate a high likelihood of allograft injury.(5)NR - No Result, US - Unacceptable Sample, N/A - RCV is not calculated due to AlloSure Result below 0.20%.*The RCV threshold for Simultaneous Pancreas-Kidney (SPK) has not been established.Clinical validity of the AlloSure test was established in kidney transplant recipients who were at least 14 days post-transplant. AlloSure should be interpreted in the context of clinical findingsand relevant patient history. For more information about AlloSure, please visit [email or web address].Specimens from kidney retransplant recipients in whom the prior kidney allograft(s) remain in situ and from SPK recipients(6),(7) are acceptable for testing.AlloSure is not intended for use in kidney transplant recipients who are , recipients of a transplant from a monozygotic twin, recipients of allogenic bone marrow transplant, or the recipientsof multiple transplanted organs other than simultaneous pancreas-kidney transplant. Transfusion of blood components containing white blood cells in the 30 days prior to blood draw may lead toaberrant result. Renal biopsies performed in the 24 hours prior to AlloSure specimen collection may elevate dd-cfDNA.(1)Jean et al., J Mol Diagn 2016; (2)Erika et al., J Am Soc Nephrol 2017; (3)Michael et al., Pediatric Transplantation 2019; (4)Alice et al., J Appl Lab Med 2017;(5)Jim et al., Kidney International 2020;(6) Damien et al.,Transplantation Direct 2021; (7)Noah et al., Transplantation Direct 2022The AlloSure donor-derived cell-free DNA test was developed and its performance characteristics were determined by the [facility] laboratory. The test has not been cleared or approved by the U.S. Foodand Drug Administration, nor is it currently required to be. The laboratory is certified under the Clinical Laboratory Improvement Amendments of 1988 (CLIA '88) and accredited by the College ofAmerican Pathologists (CAP) as qualified to perform high complexity clinical laboratory testing.The contents of this report are confidential and intended solely for the use of authorized personnel.AlloSure testing performed at [facility]. [address] [place] [address] (CLIA No: [id number], CAP No: [id number])[employer] Technician: Monika Payne M.D. Performed By: #### 9 9787-4 ####[facility] ([id number])[address] [place] [address] [place] Relationship of subject to patient Unrelated [facility] Comment on above: Performed By: #### 9 9787-4 ####[facility] ([id number])[address] [place] [address] [place] RELATIVE CHANGE VALUE - KIDNEY N/A [facility] Comment on above: Performed By: #### 9 9787-4 ####CAREDX ([id number])3260 [facility] [place] [address] [place] Transplant type [Anatomy] Kidney [facility] Comment on above: Performed By: #### 9 9787-4 ####[employer] ([id number])3260 [place] [address] [place] Unique identifier Nom (Current sample) [ID] [facility] Comment on above: Performed By: #### 9 9787-4 ####[facility]EDX ([id number])3260 [facility] [place] [address] [place] WP_ORDER_ID [facility] Comment on above: Performed By: #### 9 9787-4 ####[employer]EDX ([id number])3260 [facility] [place] [address] [place] Glucose Test strip manual (B ld) [Mass/Vol]on 12-15-2024 Glucose [Mass/Vol] 319 mg/dL High 74 - 99 mg/dL [facility] Interpretation and review of laboratory results Abnormal [facility] Glucose [Mass/Vol] 319 mg/dL High 74-99 [facility] Comment on above: Performed By: #### 2 341-6 ####JASON Carrasquillo ([id number])[facility] ([facility])[address] [place] [address] Glucose [Mass/Vol] 261 mg/dL High 74 - 99 mg/dL [facility] Interpretation and review of laboratory results Abnormal [facility] Glucose [Mass/Vol] 261 mg/dL High 74-99 [facility] Comment on above: Performed By: #### 2 341-6 ####JASON Carrasquillo ([id number])[facility] ([facility])[address] [place] [address] Glucose [Mass/Vol] 385 mg/dL High 74 - 99 mg/dL [facility] Interpretation and review of laboratory results Abnormal [facility] Glucose [Mass/Vol] 385 mg/dL High 74-99 [facility] Comment on above: Performed By: #### 2 341-6 ####JASON Carrasquillo ([id number])[facility] ([facility])[address] [place] [address] Glucose [Mass/Vol] 414 mg/dL High 74 - 99 mg/dL [facility] Interpretation and review of laboratory results Abnormal [facility] Glucose [Mass/Vol] 414 mg/dL High 74-99 [facility] Comment on above: Performed By: #### 2 341-6 ####JASON Carrasquillo ([id number])[facility] ([facility])[address] [place] [address] HLA TRANSPLANT ANTIBODY SUE Greene 12-15-2024 HLA RESULTS See Attached Normal [facility] Comment on above: Order Comment: Test performed at:[facility] LaboratoryW[facility]St[facility], [address] [place] [address] Performed By: #### H LANTI ####ANTHONY OLIVEIRASPAN S ([id number]) [facility] ([facility])[address] [place], [place] [id number] HLA-A+B+C (class I) Ab (S) [facility] Comment on above: Order Comment: Test performed at:[facility] LaboratoryMarvinSt[facility], [address] [place] [address] Performed By: #### H LANTI ####ANTHONY YAN S ([id number]) [facility] ([facility])[address] [place], [place] [id number] HLA-DP+DQ+DR (class II) Ab (S) [facility] Comment on above: Order Comment: Test performed at:[facility] LaboratoryMarvinSt[facility], [address] [place] [address] Performed By: #### H LANTI ####ANTHONY YAN S ([id number])[facility] ([facility])[address] [place] [address] Magnesiumon 12-15-2024 Magnesium [Mass/Vol] 1.78 mg/dL 1.60 - 2.40 mg/dL [facility] Magnesium [Mass/Vol] 1.78 mg/dL Normal 1.60-2.40 [facility] Comment on above: Performed By: #### 1 9123-9 ####JASON Carrasquillo ([id number])[facility] ([facility])[address] [place] [address] Magnesium [Mass/Vol] 1.84 mg/dL 1.60 - 2.40 mg/dL [facility] Magnesium [Mass/Vol] 1.84 mg/dL Normal 1.60-2.40 [facility] Comment on above: Performed By: #### 1 9123-9 ####JASON Carrasquillo ([id number])[facility] ([facility])[address] [place] [address] Magnesium [Mass/Vol]on 12-15 Interpretation and review of laboratory results Normal [facility] Interpretation and review of laboratory results Normal [facility] No Panel Informationon 12-[address] [facility] Renal function 2000 panelon 12-15-2024 Albumin BCP dye [Mass/Vol] 3.1 g/dL Low 3.4 - 5.0 g/dL [facility] Anion gap [Moles/Vol] 14 mmol/L 10 - 20 mmol/L [facility] Calcium [Mass/Vol] 8.6 mg/dL 8.6 - 10. 6 mg/dL [facility] Chloride [Moles/Vol] 100 mmol/L 98 - 10 7 mmol/L [facility] CO2 [Moles/Vol] 22 mmol/L 21 - 32 mmol/L [facility] Creatinine [Mass/Vol] 3.26 mg/dL High 0.50 - 1.30 mg/dL [facility] GFR/1.73 sq M.predicted among non-blacks MDRD (S/P/Bld) [Vol rate/Area] 21 mL/min/{1.73_m2} Low - PINF [facility] Glucose [Mass/Vol] 467 mg/dL Critically high 74 - 99 mg/d L [facility] Interpretation and review of laboratory results Abnormal [facility] Phosphate [Mass/Vol] 4.6 mg/dL 2.5 - 4 .9 mg/dL [facility] Potassium [Moles/Vol] 4 mmol/L 3.5 - 5.3 mmol/L [facility] Sodium [Moles/Vol] 132 mmol/L Low 136 - 145 mmol/L [facility] Urea nitrogen [Mass/Vol] 73 mg/dL High 6 - 23 mg/dL [facility] Albumin BCP dye [Mass/Vol] 3.1 g/dL Low 3.4-5.0 [facility] Comment on above: Performed By: #### 2 4362-6 ####JASON Carrasquillo ([id number])[facility] ([facility])[address] [place] [address] Anion gap [Moles/Vol] 14 mmol/L Normal 10-20 [facility] Comment on above: Performed By: #### 2 4362-6 ####JASON Carrasquillo ([id number])[facility] ([facility])[address] [place] [address] Calcium [Mass/Vol] 8.6 mg/dL Normal 8.6-10.6 [facility] Comment on above: Performed By: #### 2 4362-6 ####JASON Carrasquillo ([id number])[facility] ([facility])[address] [place] [address] Chloride [Moles/Vol] 100 mmol/L Normal 98-107 [facility] Comment on above: Performed By: #### 2 4362-6 ####JASON Carrasquillo ([id number])[facility] ([facility])[address] [place] [address] CO2 [Moles/Vol] 22 mmol/L Normal 21-32 [facility] Comment on above: Performed By: #### 2 4362-6 ####JASON Carrasquillo ([id number])[facility] ([facility])[address] [place] [address] Creatinine [Mass/Vol] 3.26 mg/dL High 0.50-1.30 [facility] Comment on above: Performed By: #### 2 4362-6 ####JAOSN Carrasquillo ([id number])[facility] ([facility])[address] [place] [address] Glomerular filtration rate/1.73 sq M.predicted 21 mL/min/1.73m*2 Low >60 [facility] Comment on above: Result Comment: Calc ulations of estimated GFR are performed using the 2020 CKD-EPI Study Refit equation without the race variable for the IDMS-Traceable creatinine methods.https://jasn.asnjournals.org/content/early/ N.6863472514 Performed By: #### 2 4362-6 ####JASON Carrasquillo ([id number])[facility] ([facility])[address] [place] [address] Glucose [Mass/Vol] 467 mg/dL Critically high 74-99 [facility] Comment on above: Performed By: #### 2 4362-6 ####JASON Carrasquillo ([id number])[facility] ([facility])[address] [place] [address] Phosphate [Mass/Vol] 4.6 mg/dL Normal 2.5-4.9 [facility] Comment on above: Performed By: #### 2 4362-6 ####JASON Carrasquillo ([id number])[facility] ([facility])[address] [place] [address] Potassium [Moles/Vol] 4.0 mmol/L Normal 3.5-5.3 [facility] Comment on above: Performed By: #### 2 4362-6 ####JASON Carrasquillo ([id number])[facility] ([facility])[address] [place] [address] Sodium [Moles/Vol] 132 mmol/L Low 136-145 [facility] Comment on above: Performed By: #### 2 4362-6 ####JASON Carrasquillo ([id number])[facility] ([facility])[address] [place] [address] Urea nitrogen [Mass/Vol] 73 mg/dL High 6-23 [facility] Comment on above: Performed By: #### 2 4362-6 ####JASON Carrasquillo ([id number])[facility] ([facility])[address] [place] [address] Albumin BCP dye [Mass/Vol] 3.2 g/dL Low 3.4 - 5.0 g/dL [facility] Anion gap [Moles/Vol] 14 mmol/L 10 - 20 mmol/L [facility] Calcium [Mass/Vol] 8.4 mg/dL Low 8.6 - 10. 6 mg/dL [facility] Chloride [Moles/Vol] 100 mmol/L 98 - 10 7 mmol/L [facility] CO2 [Moles/Vol] 22 mmol/L 21 - 32 mmol/L [facility] Creatinine [Mass/Vol] 2.98 mg/dL High 0.50 - 1.30 mg/dL [facility] GFR/1.73 sq M.predicted among non-blacks MDRD (S/P/Bld) [Vol rate/Area] 24 mL/min/{1.73_m2} Low - PINF [facility] Glucose [Mass/Vol] 469 mg/dL Critically high 74 - 99 mg/d L [facility] Interpretation and review of laboratory results Abnormal [facility] Phosphate [Mass/Vol] 5.1 mg/dL High 2.5 - 4 .9 mg/dL [facility] Potassium [Moles/Vol] 5.2 mmol/L 3.5 - 5.3 mmol/L [facility] Sodium [Moles/Vol] 131 mmol/L Low 136 - 145 mmol/L [facility] Urea nitrogen [Mass/Vol] 70 mg/dL High 6 - 23 mg/dL [facility] Albumin BCP dye [Mass/Vol] 3.2 g/dL Low 3.4-5.0 [facility] Comment on above: Performed By: #### 2 4362-6 ####JASON Carrasquillo ([id number])[facility] ([facility])[address] [place] [address] Anion gap [Moles/Vol] 14 mmol/L Normal 10-20 [facility] Comment on above: Performed By: #### 2 4362-6 ####JASON Carrasquillo ([id number])[facility] ([facility])[address] [place] [address] Calcium [Mass/Vol] 8.4 mg/dL Low 8.6-10.6 [facility] Comment on above: Performed By: #### 2 4362-6 ####JASON Carrasquillo ([id number])[facility] ([facility])[address] [place] [address] Chloride [Moles/Vol] 100 mmol/L Normal 98-107 [facility] Comment on above: Performed By: #### 2 4362-6 ####JASON Carrasquillo ([id number])[facility] ([facility])[address] [place] [address] CO2 [Moles/Vol] 22 mmol/L Normal 21-32 [facility] Comment on above: Performed By: #### 2 4362-6 ####JASON Carrasquillo ([id number])[facility] ([facility])[address] [place] [address] Creatinine [Mass/Vol] 2.98 mg/dL High 0.50-1.30 [facility] Comment on above: Performed By: #### 2 4362-6 ####JASON JENNINGS L ([id number])[facility] ([facility])[address] [place] [address] Glomerular filtration rate/1.73 sq M.predicted 24 mL/min/1.73m*2 Low >60 [facility] Comment on above: Result Comment: Calc ulations of estimated GFR are performed using the 2020 CKD-EPI Study Refit equation without the race variable for the IDMS-Traceable creatinine methods.https://jasn.asnjournals.org/content// N.4464547640 Performed By: #### 2 4362-6 ####JASON Carrasquillo ([id number])[facility] ([facility])[address] [place] [address] Glucose [Mass/Vol] 469 mg/dL Critically high 74-99 [facility] Comment on above: Performed By: #### 2 4362-6 ####JASON JENNINGS L ([id number])[facility] ([facility])[address] [place] [address] Phosphate [Mass/Vol] 5.1 mg/dL High 2.5-4.9 [facility] Comment on above: Result Comment: MILD HEMOLYSIS DETECTED. The result may be falsely elevated due to hemolysis or other interferents. Clinical correlation is recommended. Repeat testing may be considered. Performed By: #### 2 4362-6 ####JASON JENNINGS L ([id number])[facility] ([facility])[address] [place] [address] Potassium [Moles/Vol] 5.2 mmol/L Normal 3.5-5.3 [facility] Comment on above: Result Comment: MILD HEMOLYSIS DETECTED. The result may be falsely elevated due to hemolysis or other interferents. Clinical correlation is recommended. Repeat testing may be considered. Performed By: #### 2 4362-6 ####JASON JENNINGS L ([id number])[facility] ([facility])[address] [place] [address] Sodium [Moles/Vol] 131 mmol/L Low 136-145 [facility] Comment on above: Performed By: #### 2 4362-6 ####JASON JENNINGS L ([id number])[facility] ([facility])[address] [facility] [place] [address] Urea nitrogen [Mass/Vol] 70 mg/dL High 6-23 [facility] Comment on above: Performed By: #### 2 4362-6 ####JASON Carrasquillo ([id number])[facility] ([facility])[address] [place] [address] TacrolimusOrdered By: Sara Jimenez on 12-15-2024 Tacrolimus (Bld) [Mass/Vol] 50.1 ng/mL Critically high NINF - 15.0 ng/mL [facility] Tacrolimuson 12-15-2024 Tacrolimus (Bld) [Mass/Vol] 50.1 ng/mL Critically high <=15.0 [facility] Comment on above: Order Comment: NOTE: Result was obtained using achemiluminescent microparticle immunoassay(CMIA) on the [employer] i system.Optimal therapeutic ranges for immunosuppressantdrugs depend upon an individualpatient's current clinical state, type oforgan transplant, time post-transplant,co-administration of other immunosuppressants,and other clinical factors. The results ofthis test should be correlated with additionalclinical and laboratory data before changesin treatment regimens are made. Performed By: #### 1 1253-2 ####JASON Carrasquillo ([id number])[facility] ([facility])[address] [place] [address] Tacrolimus (Bld) [Mass/Vol]O rdered By: Nakia Jimenez on 12-15-2024 Interpretation and review of laboratory results Abnormal [facility] US for transplanted kidneyon 12-15-2024 [facility] MMODAL U[facility] MMODAL [facility] Work Phone: US for transplanted kidneyOr dered By: Moreno Choe on 12-15-[address] [facility] Work Phone: Urinalysis complete W Reflex Culture panel (U)Ordered By: Vishal Gomez on 12-15-2024 Appearance (U) Clear Clear [facility] Bilirubin (U) [Mass/Vol] Negative NEGATIVE mg/dL [facility] Color (U) Light-Yellow Light-Yellow, Yellow, Dark-Yellow [facility] Glucose Auto test strip (U) [Mass/Vol] OVER (4+) Abnormal Normal mg/dL [facility] Interpretation and review of laboratory results Abnormal [facility] Ketones (U) [Mass/Vol] Negative NEGATIVE mg/dL [facility] Leukocyte esterase Auto test strip Ql (U) Negative NEGATIVE [facility] Nitrite Auto test strip Ql (U) Negative NEGATIVE [facility] pH (U) 6.5 [pH] 5.0, 5.5, 6.0, 6.5, 7.0, 7.5, 8.[address] [facility] Protein (U) [Mass/Vol] 20 (TRACE) NEGATIVE, 10 (TRACE), 20 (TRACE) mg/dL [facility] RBC (U) [#/Vol] Negative NEGATIVE mg/dL [facility] Specific gravity (U) [Rel density] 1.015 1.005 - 1.[address] [facility] Urobilinogen (U) [Mass/Vol] Normal Normal mg/dL [facility] Urinalysis complete W Reflex Culture panel (U)on 12-15-2024 Hyaline casts Auto (Urine sed) [#/Area] OCCASIONAL Abnormal NONE /LPF [facility] Interpretation and review of laboratory results Abnormal [facility] RBC Auto (Urine sed) [#/Area] 1-2 NONE, 1-2, 3-5 /HPF [facility] WBC Auto (Urine sed) [#/Area] 1-5 1-5, NONE /HPF [facility] Appearance (U) Clear Normal Clear [facility] Comment on above: Order Comment: OVER is reported when the result is greater than the clinically reportable range. Performed By: #### 5 8077-9 ####JASON Carrasquillo ([id number])[facility] ([facility])[address] [place] [address] Bilirubin (U) [Mass/Vol] Negative Normal NEGATIVE [facility] Comment on above: Order Comment: OVER is reported when the result is greater than the clinically reportable range. Performed By: #### 5 8077-9 ####JASON Carrasquillo ([id number])[facility] ([facility])[address] [place] [address] Color (U) Light-Yellow Normal Light-Yellow, Yellow, Dark-Yellow [facility] Comment on above: Order Comment: OVER is reported when the result is greater than the clinically reportable range. Performed By: #### 5 8077-9 ####JASON Carrasquillo ([id number])[facility] ([facility])[address] [place] [address] Glucose Auto test strip (U) [Mass/Vol] OVER (4+) Abnormal Normal [facility] Comment on above: Order Comment: OVER is reported when the result is greater than the clinically reportable range. Performed By: #### 5 8077-9 ####JASON Carrasquillo ([id number])[facility] ([facility])[address] [place] [address] Hyaline casts Auto (Urine sed) [#/Area] OCCASIONAL Abnormal NONE [facility] Comment on above: Performed By: #### 5 8077-9 ####JASON Carrasquillo ([id number])[facility] ([facility])[address] [place] [address] Ketones (U) [Mass/Vol] Negative Normal NEGATIVE [facility] Comment on above: Order Comment: OVER is reported when the result is greater than the clinically reportable range. Performed By: #### 5 8077-9 ####JASON Carrasquillo ([id number])[facility] ([facility])[address] [place] [address] Leukocyte esterase Auto test strip Ql (U) Negative Normal NEGATIVE [facility] Comment on above: Order Comment: OVER is reported when the result is greater than the clinically reportable range. Performed By: #### 5 8077-9 ####JASON Carrasquillo ([id number])[facility] ([facility])[address] [place] [address] Nitrite Auto test strip Ql (U) Negative Normal NEGATIVE [facility] Comment on above: Order Comment: OVER is reported when the result is greater than the clinically reportable range. Performed By: #### 5 8077-9 ####JASON Carrasquillo ([id number])[facility] ([facility])[address] [place] [address] pH (U) 6.5 [pH] Normal 5.0, 5.5, 6.0, 6.5, 7.0, 7.5, 8.0 [facility] Comment on above: Order Comment: OVER is reported when the result is greater than the clinically reportable range. Performed By: #### 5 8077-9 ####JASON Carrasquillo ([id number])[facility] ([facility])[address] [place] [address] Protein (U) [Mass/Vol] 20 (TRACE) Normal NEGATIVE, 10 (TRACE), 20 (TRACE) [facility] Comment on above: Order Comment: OVER is reported when the result is greater than the clinically reportable range. Performed By: #### 5 8077-9 ####JASON Carrasquillo ([id number])[facility] ([facility])[address] [place] [address] RBC (U) [#/Vol] Negative Normal NEGATIVE [facility] Comment on above: Order Comment: OVER is reported when the result is greater than the clinically reportable range. Performed By: #### 5 8077-9 ####JASON Carrasquillo ([id number])[facility] ([facility])[address] [place] [address] RBC Auto (Urine sed) [#/Area] 1-2 Normal NONE, 1-2, 3-5 [facility] Comment on above: Performed By: #### 5 8077-9 ####JASNO Carrasquillo ([id number])[facility] ([facility])[address] [place] [address] Specific gravity (U) [Rel density] 1.015 Normal 1.005-1.035 [facility] Comment on above: Order Comment: OVER is reported when the result is greater than the clinically reportable range. Performed By: #### 5 8077-9 ####JASON Carrasquillo ([id number])[facility] ([facility])[address] [place] [address] Urobilinogen (U) [Mass/Vol] Normal Normal Normal [facility] Comment on above: Order Comment: OVER is reported when the result is greater than the clinically reportable range. Performed By: #### 5 8077-9 ####JASON Carrasquillo ([id number])[facility] ([facility])[address] [place] [address] WBC Auto (Urine sed) [#/Area] 1-5 Normal 1-5, NONE [facility] Comment on above: Performed By: #### 5 8077-9 ####JASON Carrasquillo ([id number])[facility] ([facility])[address] [place] [address] Blood type and Indirect anti body screen panel (Bld)on 12-14-2024 ABO group Nom (Bld) B [facility] Blood group antibody screen Ql Negative [facility] D Ag Ql (Bld) Positive [facility] ABO group Nom (Bld) B Normal [facility] Comment on above: Performed By: #### 3 4532-2 ####JASON Carrasquillo ([id number])[facility] ([facility])[address] [place], [place] [id number] Blood group antibody screen Ql Negative Normal [facility] Comment on above: Performed By: #### 3 4532-2 ####JASON Carrasquillo ([id number])[facility] ([facility])[address] [place], [place] [id number] D Ag Ql (Bld) Positive Normal [facility] Comment on above: Performed By: #### 3 4532-2 ####JASON Carrasquillo ([id number])[facility] ([facility])[address] [place] [address] CBC panel Auto (Bld)on 12-14 Erythrocyte distribution width (RBC) [Ratio] 19.5 % High 11.5 - 14.5 % [facility] Hematocrit (Bld) [Volume fraction] 24.6 % Low 41.0 - 52.0 % [facility] Hemoglobin (Bld) [Mass/Vol] 7.5 g/dL Low 13.5 - 17.5 g/dL [facility] Interpretation and review of laboratory results Abnormal [facility] MCH (RBC) [Entitic mass] 25.1 pg Low 26.0 - 34.[address] [facility] MCHC (RBC) [Mass/Vol] 30.5 g/dL Low 32.0 - 36.0 g/dL [facility] MCV (RBC) [Entitic vol] 82 fL 80 - [address] [facility] Nucleated RBC/100 WBC (Bld) [Ratio] 0 % [facility] Platelets (Bld) [#/Vol] 113 10*3/uL Low [facility] RBC (Bld) [#/Vol] 2.99 10*6/uL [facility] WBC (Bld) [#/Vol] 8.2 10*3/uL [facility] Erythrocyte distribution width (RBC) [Ratio] 19.5 % High 11.5-14.5 [facility] Comment on above: Order Comment: Befor e Hemodialysis Performed By: #### 5 8410-2 ####JASON Carrasquillo ([id number])[facility] ([facility])[address] [place] [address] Hematocrit (Bld) [Volume fraction] 24.6 % Low 41.0-52.0 [facility] Comment on above: Order Comment: Befor e Hemodialysis Performed By: #### 5 8410-2 ####JASON Carrasquillo ([id number])[facility] ([facility])[address] [place] [address] Hemoglobin (Bld) [Mass/Vol] 7.5 g/dL Low 13.5-17.5 [facility] Comment on above: Order Comment: Befor e Hemodialysis Performed By: #### 5 8410-2 ####JASON Carrasquillo ([id number])[facility] ([facility])[address] [place] [address] MCH (RBC) [Entitic mass] 25.1 pg Low 26.0-34.0 [facility] Comment on above: Order Comment: Befor e Hemodialysis Performed By: #### 5 8410-2 ####JASON Carrasquillo ([id number])[facility] ([facility])[address] [place] [address] MCHC (RBC) [Mass/Vol] 30.5 g/dL Low 32.0-36.0 [facility] Comment on above: Order Comment: Befor e Hemodialysis Performed By: #### 5 8410-2 ####JASON Carrasquillo ([id number])[facility] ([facility])[address] [place] [address] MCV (RBC) [Entitic vol] 82 fL Normal 80-100 [facility] Comment on above: Order Comment: Befor e Hemodialysis Performed By: #### 5 8410-2 ####JASON Carrasquillo ([id number])[facility] ([facility])[address] [place] [address] Nucleated RBC/100 WBC (Bld) [Ratio] 0.0 /100 WBCs Normal 0.0-0.0 [facility] Comment on above: Order Comment: Befor e Hemodialysis Performed By: #### 5 8410-2 ####JASON Carrasquillo ([id number])[facility] ([facility])[address] [place] [address] Platelets (Bld) [#/Vol] 113 x10*3/uL Low 150-450 [facility] Comment on above: Order Comment: Befor e Hemodialysis Performed By: #### 5 8410-2 ####JASON Carrasquillo ([id number])[facility] ([facility])[address] [place] [address] RBC (Bld) [#/Vol] 2.99 x10*6/uL Low 4.50-5.90 [facility] Comment on above: Order Comment: Befor e Hemodialysis Performed By: #### 5 8410-2 ####JASON Carrasquillo ([id number])[facility] ([facility])[address] [place] [address] WBC (Bld) [#/Vol] 8.2 x10*3/uL Normal 4.4-11.3 [facility] Comment on above: Order Comment: Befor e Hemodialysis Performed By: #### 5 8410-2 ####JASON Carrasquillo ([id number])[facility] ([facility])[address] [place] [address] Laboratory - Chemistry and C hemistry - challengeon 12-14-2024 Magnesium [Mass/Vol] 2.08 mg/dL 1.60 - 2.40 mg/dL [facility] Laboratory - Drug toxicology Ordered By: Kristine Santana on 12-14-2024 Tacrolimus (Bld) [Mass/Vol] 4.8 ng/mL NINF - 15.0 ng/mL [facility] Magnesiumon 12-14-2024 Magnesium [Mass/Vol] 2.08 mg/dL Normal 1.60-2.40 [facility] Comment on above: Order Comment: Befor e Hemodialysis Performed By: #### 1 9123-9 ####JASON Carrasquillo ([id number])[facility] ([facility])[address] [place] [address] Magnesium [Mass/Vol]on 12-14 Interpretation and review of laboratory results Normal [facility] No Panel Informationon 12-[address] [facility] Renal function 2000 panelon 12-14-2024 Albumin BCP dye [Mass/Vol] 3.5 g/dL 3.4 - 5.0 g/dL [facility] Anion gap [Moles/Vol] 17 mmol/L 10 - 20 mmol/L [facility] Calcium [Mass/Vol] 9.3 mg/dL 8.6 - 10. 6 mg/dL [facility] Chloride [Moles/Vol] 110 mmol/L High 98 - 10 7 mmol/L [facility] CO2 [Moles/Vol] 13 mmol/L Low 21 - 32 mmol/L [facility] Creatinine [Mass/Vol] 4.68 mg/dL High 0.50 - 1.30 mg/dL [facility] GFR/1.73 sq M.predicted among non-blacks MDRD (S/P/Bld) [Vol rate/Area] 14 mL/min/{1.73_m2} Low - PINF [facility] Comment on above: Calculations of cleopatra mated GFR are performed using the 2020 CKD-EPI Study Refit equation without the race variable for the IDMS-Traceable creatinine methods. https://jasn.asnjournals.org/content/early/ASN.790289 9306 Glucose [Mass/Vol] 352 mg/dL High 74 - 99 mg/dL [facility] Interpretation and review of laboratory results Abnormal [facility] Phosphate [Mass/Vol] 5.9 mg/dL High 2.5 - 4 .9 mg/dL [facility] Potassium [Moles/Vol] 4.8 mmol/L 3.5 - 5.3 mmol/L [facility] Sodium [Moles/Vol] 135 mmol/L Low 136 - 145 mmol/L [facility] Urea nitrogen [Mass/Vol] 120 mg/dL Critically high 6 - 23 mg/dL [facility] Comment on above: Previous result veri fied on 12/13/2024 1129 on specimen/case [id number] called with component UREA for procedure Renal Function Panel with value 108 mg/dL. Albumin BCP dye [Mass/Vol] 3.5 g/dL Normal 3.4-5.0 [facility] Comment on above: Order Comment: Befor e Hemodialysis Performed By: #### 2 4362-6 ####JASON Carrasquillo ([id number])[facility] ([facility])[address] [place] [address] Anion gap [Moles/Vol] 17 mmol/L Normal 10-20 [facility] Comment on above: Order Comment: Befor e Hemodialysis Performed By: #### 2 4362-6 ####JASON Carrasquillo ([id number])[facility] ([facility])[address] [place] [address] Calcium [Mass/Vol] 9.3 mg/dL Normal 8.6-10.6 [facility] Comment on above: Order Comment: Befor e Hemodialysis Performed By: #### 2 4362-6 ####JASON Carrasquillo ([id number])[facility] ([facility])[address] [place] [address] Chloride [Moles/Vol] 110 mmol/L High 98-107 [facility] Comment on above: Order Comment: Befor e Hemodialysis Performed By: #### 2 4362-6 ####JASON Carrasquillo ([id number])[facility] ([facility])[address] [place] [address] CO2 [Moles/Vol] 13 mmol/L Low 21-32 [facility] Comment on above: Order Comment: Befor e Hemodialysis Performed By: #### 2 4362-6 ####JASON Carrasquillo ([id number])[facility] ([facility])[address] [place] [address] Creatinine [Mass/Vol] 4.68 mg/dL High 0.50-1.30 [facility] Comment on above: Order Comment: Befor e Hemodialysis Performed By: #### 2 4362-6 ####JASON Carrasquillo ([id number])[facility] ([facility])[address] [place] [address] Glomerular filtration rate/1.73 sq M.predicted 14 mL/min/1.73m*2 Low >60 [facility] Comment on above: Order Comment: Befor e Hemodialysis Result Comment: Calc ulations of estimated GFR are performed using the 2020 CKD-EPI Study Refit equation without the race variable for the IDMS-Traceable creatinine methods.https://jasn.asnjournals.org/content/early/ N.2663650190 Performed By: #### 2 4362-6 ####JASON Carrasquillo ([id number])[facility] ([facility])[address] [place] [address] Glucose [Mass/Vol] 352 mg/dL High 74-99 [facility] Comment on above: Order Comment: Befor e Hemodialysis Performed By: #### 2 4362-6 ####JASON JENNINGS L ([id number])[facility] ([facility])[address] [place] [address] Phosphate [Mass/Vol] 5.9 mg/dL High 2.5-4.9 [facility] Comment on above: Order Comment: Befor e Hemodialysis Performed By: #### 2 4362-6 ####JASON JENNINGS L ([id number])[facility] ([facility])[address] [place] [address] Potassium [Moles/Vol] 4.8 mmol/L Normal 3.5-5.3 [facility] Comment on above: Order Comment: Befor e Hemodialysis Performed By: #### 2 4362-6 ####JASON JENNINGS L ([id number])[facility] ([facility])[address] [place] [address] Sodium [Moles/Vol] 135 mmol/L Low 136-145 [facility] Comment on above: Order Comment: Befor e Hemodialysis Performed By: #### 2 4362-6 ####JASON JENNINGS L ([id number])[facility] ([facility])[address] [place] [address] Urea nitrogen [Mass/Vol] 120 mg/dL Critically high 6-23 [facility] Comment on above: Order Comment: Befor e Hemodialysis Result Comment: Prev ious result verified on 12/13/2024 1129 on specimen/case [id number] called with component UREA for procedure Renal Function Panel with value 108 mg/dL. Performed By: #### 2 4362-6 ####JASON POPETZER L ([id number])[facility] ([facility])[address] [place] [address] Tacrolimuson 12-14-2024 Tacrolimus (Bld) [Mass/Vol] 4.8 ng/mL Normal <=15.0 [facility] Comment on above: Order Comment: Befor e HemodialysisNOTE: Result was obtained using achemiluminescent microparticle immunoassay(CMIA) on the [employer] system.Optimal therapeutic ranges for immunosuppressantdrugs depend upon an individualpatient's current clinical state, type oforgan transplant, time post-transplant,co-administration of other immunosuppressants,and other clinical factors. The results ofthis test should be correlated with additionalclinical and laboratory data before changesin treatment regimens are made. Performed By: #### 1 1253-2 ####JASON Carrasquillo ([id number])[facility] ([facility])[address] [place] [address] Tacrolimus (Bld) [Mass/Vol]O rdered By: Kristine Santana on 12-14-2024 Interpretation and review of laboratory results Normal [facility] NOTE: Result was obtained using a chemiluminescent microparticle immunoassay (CMIA) on the [employer] system. Optimal therapeutic ranges for immunosuppressant drugs depend upon an individual patient's current clinical state, type of organ transplant, time post-transplant, co-administration of other immunosuppressants, and other clinical factors. The results of this test should be correlated with additional clinical and laboratory data before changes in treatment regimens are made. [facility] KIDNEY TRANSPLANTon 12-14 [facility] KIDNEY TRANSPLANT Normal [facility] US for transplanted kidneyon 12-14-2024 Radiology Study observation (narrative) [facility] Work Phone: CBC panel Auto (Bld)on 12-13 Erythrocyte distribution width (RBC) [Ratio] 18.9 % High 11.5-14.5 [facility] Comment on above: Performed By: #### 5 8410-2 ####TON MORAN ([id number])[facility] ([facility])[address] [place] [address] Hematocrit (Bld) [Volume fraction] 25.3 % Low 41.0-52.0 [facility] Comment on above: Performed By: #### 5 8410-2 ####TON MORAN ([id number])[facility] ([facility])[address] [place] [address] Hemoglobin (Bld) [Mass/Vol] 7.7 g/dL Low 13.5-17.5 [facility] Comment on above: Performed By: #### 5 8410-2 ####TON MORAN ([id number])[facility] ([facility])[address] [place] [address]79[address] MCH (RBC) [Entitic mass] 25.2 pg Low 26.0-34.0 [facility] Comment on above: Performed By: #### 5 8410-2 ####TON MORAN ([id number])[facility] ([facility])[address] [place] [address] MCHC (RBC) [Mass/Vol] 30.4 g/dL Low 32.0-36.0 [facility] Comment on above: Performed By: #### 5 8410-2 ####TON MORAN ([id number])[facility] ([facility])[address] [place] [address] MCV (RBC) [Entitic vol] 83 fL Normal 80-100 [facility] Comment on above: Performed By: #### 5 8410-2 ####TON MORAN ([id number])[facility] ([facility])[address] [place] [address] Nucleated RBC/100 WBC (Bld) [Ratio] 0.0 /100 WBCs Normal 0.0-0.0 [facility] Comment on above: Performed By: #### 5 8410-2 ####TON MORAN ([id number])[facility] ([facility])[address] [place] [address] Platelets (Bld) [#/Vol] 102 x10*3/uL Low 150-450 [facility] Comment on above: Performed By: #### 5 8410-2 ####TON MORAN ([id number])[facility] ([facility])[address] [place] [address] RBC (Bld) [#/Vol] 3.06 x10*6/uL Low 4.50-5.90 [facility] Comment on above: Performed By: #### 5 8410-2 ####TON MORAN ([id number])[facility] ([facility])[address] [place] [address] WBC (Bld) [#/Vol] 7.1 x10*3/uL Normal 4.4-11.3 [facility] Comment on above: Performed By: #### 5 8410-2 ####TON MORAN ([id number])[facility] ([facility])[address] [place] [address] Magnesiumon 12-13-2024 Magnesium [Mass/Vol] 2.04 mg/dL Normal 1.60-2.40 [facility] Comment on above: Performed By: #### 1 9123-9 ####TON MORAN ([id number])[facility] ([facility])[address] [place] [address] 76288 Renal function 2000 panelon 12-13-2024 Albumin BCP dye [Mass/Vol] 3.5 g/dL Normal 3.4-5.0 [facility] Comment on above: Performed By: #### 2 4362-6 ####TON MORAN ([id number])[facility] ([facility])[address] [place] [address]29[address] Anion gap [Moles/Vol] 14 mmol/L Normal 10-20 [facility] Comment on above: Performed By: #### 2 4362-6 ####TON MORAN ([id number])[facility] ([facility])[address] [place] [address] 22351 Calcium [Mass/Vol] 9.0 mg/dL Normal 8.6-10.3 [facility] Comment on above: Performed By: #### 2 4362-6 ####TON MORAN ([id number])[facility] ([facility])[address] [place] [address]1721 Chloride [Moles/Vol] 110 mmol/L High 98-107 [facility] Comment on above: Performed By: #### 2 4362-6 ####TON MORAN ([id number])[facility] ([facility])[address] [place] [address] CO2 [Moles/Vol] 17 mmol/L Low 21-32 [facility] Comment on above: Performed By: #### 2 4362-6 ####TON MORAN ([id number])[facility] ([facility])[address] [place] [address] Creatinine [Mass/Vol] 4.63 mg/dL High 0.50-1.30 [facility] Comment on above: Performed By: #### 2 4362-6 ####TON MORAN ([id number])[facility] ([facility])[address] [place] [address]170 Glomerular filtration rate/1.73 sq M.predicted 14 mL/min/1.73m*2 Low >60 [facility] Comment on above: Result Comment: Calc ulations of estimated GFR are performed using the 2020 CKD-EPI Study Refit equation without the race variable for the IDMS-Traceable creatinine methods.https://jasn.asnjournals.org/content/early/ N.5200693249 Performed By: #### 2 4362-6 ####TON MORAN ([id number])[facility] ([facility])[address] [place] [address]487 Glucose [Mass/Vol] 200 mg/dL High 74-99 [facility] Comment on above: Performed By: #### 2 4362-6 ####TON MORAN ([id number])[facility] ([facility])[address] [place] [address] 01540 Phosphate [Mass/Vol] 6.2 mg/dL High 2.5-4.9 [facility] Comment on above: Performed By: #### 2 4362-6 ####TON MORAN ([id number])[facility] ([facility])[address] [place] [address] 62323 Potassium [Moles/Vol] 4.9 mmol/L Normal 3.5-5.3 [facility] Comment on above: Performed By: #### 2 4362-6 ####TON MORAN ([id number])[facility] ([facility])[address] [place] [address] 00450 Sodium [Moles/Vol] 136 mmol/L Normal 136-145 [facility] Comment on above: Performed By: #### 2 4362-6 ####TON MORAN ([id number])[facility] ([facility])[address] [place] [address] Urea nitrogen [Mass/Vol] 108 mg/dL Critically high 6-23 [facility] Comment on above: Performed By: #### 2 4362-6 ####TON MORAN ([id number])[facility] ([facility])[address] [place] [address] Tacrolimuson 12-13-2024 Tacrolimus (Bld) [Mass/Vol] 4.8 ng/mL Normal <=15.0 [facility] Comment on above: Order Comment: NOTE: Result was obtained using achemiluminescent microparticle immunoassay(CMIA) on the [employer] i system.Optimal therapeutic ranges for immunosuppressantdrugs depend upon an individualpatient's current clinical state, type oforgan transplant, time post-transplant,co-administration of other immunosuppressants,and other clinical factors. The results ofthis test should be correlated with additionalclinical and laboratory data before changesin treatment regimens are made. Performed By: #### 1 1253-2 ####JASON Carrasquillo ([id number])[facility] ([facility])[id number] [place] [address] CBC panel Auto (Bld)on 12-09 Erythrocyte distribution width (RBC) [Ratio] 17.7 % High 11.5 - 14.5 % [facility] Hematocrit (Bld) [Volume fraction] 26.7 % Low 41.0 - 52.0 % [facility] Hemoglobin (Bld) [Mass/Vol] 8.4 g/dL Low 13.5 - 17.5 g/dL [facility] Interpretation and review of laboratory results Abnormal [facility] MCH (RBC) [Entitic mass] 25.2 pg Low 26.0 - 34.[address] [facility] MCHC (RBC) [Mass/Vol] 31.5 g/dL Low 32.0 - 36.0 g/dL [facility] MCV (RBC) [Entitic vol] 80 fL 80 - [address] [facility] Nucleated RBC/100 WBC (Bld) [Ratio] 0 % [facility] Platelets (Bld) [#/Vol] 101 10*3/uL Low [facility] RBC (Bld) [#/Vol] 3.33 10*6/uL Low [facility] WBC (Bld) [#/Vol] 6.3 10*3/uL [facility] Erythrocyte distribution width (RBC) [Ratio] 17.7 % High 11.5-14.5 [facility] Comment on above: Performed By: #### 5 8410-2 ####JASON Carrasquillo ([id number])[facility] ([facility])[address] [place] [address]329 Hematocrit (Bld) [Volume fraction] 26.7 % Low 41.0-52.0 [facility] Comment on above: Performed By: #### 5 8410-2 ####JASON Carrasquillo ([id number])[facility] ([facility])[address] [place] [address] 18316 Hemoglobin (Bld) [Mass/Vol] 8.4 g/dL Low 13.5-17.5 [facility] Comment on above: Performed By: #### 5 8410-2 ####JASON Carrasquillo ([id number])[facility] ([facility])[address] [place] [address]2506 MCH (RBC) [Entitic mass] 25.2 pg Low 26.0-34.0 [facility] Comment on above: Performed By: #### 5 8410-2 ####JASON Carrasquillo ([id number])[facility] ([facility])[address] [place] [address] 19860 MCHC (RBC) [Mass/Vol] 31.5 g/dL Low 32.0-36.0 [facility] Comment on above: Performed By: #### 5 8410-2 ####JASON Carrasquillo ([id number])[facility] ([facility])[address] [place] [address] MCV (RBC) [Entitic vol] 80 fL Normal 80-100 [facility] Comment on above: Performed By: #### 5 8410-2 ####JASON Carrasquillo ([id number])[facility] ([facility])[address] [place] [address] Nucleated RBC/100 WBC (Bld) [Ratio] 0.0 /100 WBCs Normal 0.0-0.0 [facility] Comment on above: Performed By: #### 5 8410-2 ####JASON Carrasquillo ([id number])[facility] ([facility])[address] [place] [address] Platelets (Bld) [#/Vol] 101 x10*3/uL Low 150-450 [facility] Comment on above: Performed By: #### 5 8410-2 ####JASON Carrasquillo ([id number])[facility] ([facility])[address] [place] [address] RBC (Bld) [#/Vol] 3.33 x10*6/uL Low 4.50-5.90 [facility] Comment on above: Performed By: #### 5 8410-2 ####JASON Carrasquillo ([id number])[facility] ([facility])[address] [place] [address] 11364 WBC (Bld) [#/Vol] 6.3 x10*3/uL Normal 4.4-11.3 [facility] Comment on above: Performed By: #### 5 8410-2 ####JASON Carrasquillo ([id number])[facility] ([facility])[address] [place] [address] Calcium, Ionizedon 5 Calcium.ionized (Bld) [Moles/Vol] 1.24 mmol/L 1.1 - 1.33 mmol/L [facility] Comment on above: The performance clinton acteristics of ionized calcium tested in heparinized plasma or serum have been validated by the individual laboratory site where testing is performed. Testing on heparinized plasma or serum is not approved by the FDA; however, such approval is not necessary. Calcium.ionizedon 12-09-2024 Calcium.ionized (Bld) [Moles/Vol] 1.24 mmol/L Normal 1.1-1.33 [facility] Comment on above: Result Comment: The performance characteristics of ionized calcium testedin heparinized plasma or serum [facility].Testing on heparinized plasma or serum is not approved bythe FDA; however, such approval is not necessary. Performed By: #### 1 994-3 ####JASON Carrasquillo ([id number])[facility] ([facility])[id number] [place] [address] Calcium.ionized (Bld) [Moles /Vol]on 12-09-2024 Interpretation and review of laboratory results Normal [facility] Gas panel (BldV)on Anion gap 4 (BldV) [Moles/Vol] 11 mmol/L 10.0 - 25.0 mmol/L [facility] Base excess Calc (BldV) [Moles/Vol] -2.8000 mmol/L Low -2.0 - 3.0 mmol/L [facility] Calcium.ionized (BldV) [Moles/Vol] 1.25 mmol/L 1.10 - 1.33 mmol/L [facility] Chloride (BldV) [Moles/Vol] 106 mmol/L 98 - 107 mmol/L [facility] CO2 (BldV) [Partial pressure] 41 mm[Hg] [facility] Glucose [Mass/Vol] 189 mg/dL High 74 - 99 mg/dL [facility] HCO3 (Bld) [Moles/Vol] 22.6 mmol/L 22.0 - 26.0 mmol/L [facility] Hematocrit Est (Bld) [Volume fraction] 26 % Low 41.0 - 52.0 % [facility] Hemoglobin (Bld) [Mass/Vol] 8.6 g/dL Low 13.5 - 17.5 g/dL [facility] Inhaled oxygen concentration 21 % [facility] Interpretation and review of laboratory results Abnormal [facility] Lactate (BldV) [Moles/Vol] 0.5 mmol/L 0.4 - 2.0 mmol/L [facility] Oxygen (BldV) [Partial pressure] 19 mm[Hg] Low [facility] Oxygen saturation in Venous blood 14 % Low 45 - 75 % [facility] Oxyhemoglobin (BldV) [Mass fraction] 13.5 % Low 45.0 - 75.0 % [facility] pH (BldV) 7.35 [pH] 7.33 - 7.[address] [facility] Potassium (BldV) [Moles/Vol] 4 mmol/L 3.5 - 5.3 mmol/L [facility] Sodium (BldV) [Moles/Vol] 136 mmol/L 136 - 145 mmol/L [facility] Anion gap 4 (BldV) [Moles/Vol] 11.0 mmol/L Normal 10.0-25.0 [facility] Comment on above: Performed By: #### 2 4339-4 ####JASON Carrasquillo ([id number])[facility] ([facility])[id number] [place] [address]77[address] Base excess Calc (BldV) [Moles/Vol] -2.8000 mmol/L Low -2.0-3.0 [facility] Comment on above: Performed By: #### 2 4339-4 ####JASON Carrasquillo ([id number])[facility] ([facility])[address] [place] [address] Calcium.ionized (BldV) [Moles/Vol] 1.25 mmol/L Normal 1.10-1.33 [facility] Comment on above: Performed By: #### 2 4339-4 ####JASON Carrasquillo ([id number])[facility] ([facility])[address] [place] [address] 58397 Chloride (BldV) [Moles/Vol] 106 mmol/L Normal 98-107 [facility] Comment on above: Performed By: #### 2 4339-4 ####JASON Carrasquillo ([id number])[facility] ([facility])[address] [place] [address] CO2 (BldV) [Partial pressure] 41 mm Hg Normal 41-51 [facility] Comment on above: Performed By: #### 2 4339-4 ####JASON Carrasquillo ([id number])[facility] ([facility])[address] [place] [address] Glucose [Mass/Vol] 189 mg/dL High 74-99 [facility] Comment on above: Performed By: #### 2 4339-4 ####JASON Carrasquillo ([id number])[facility] ([facility])[address] [place] [address] HCO3 (Bld) [Moles/Vol] 22.6 mmol/L Normal 22.0-26.0 [facility] Comment on above: Performed By: #### 2 4339-4 ####JASON Carrasquillo ([id number])[facility] ([facility])[address] [place] [address] Hematocrit Est (Bld) [Volume fraction] 26.0 % Low 41.0-52.0 [facility] Comment on above: Performed By: #### 2 4339-4 ####JASON Carrasquillo ([id number])[facility] ([facility])[address] [place] [address] Hemoglobin (Bld) [Mass/Vol] 8.6 g/dL Low 13.5-17.5 [facility] Comment on above: Performed By: #### 2 4339-4 ####JASON Carrasquillo ([id number])[facility] ([facility])[address] [place] [address] Inhaled oxygen concentration 21 % Normal [facility] Comment on above: Performed By: #### 2 4339-4 ####JASON Carrasquillo ([id number])[facility] ([facility])[address] [place] [address] Lactate (BldV) [Moles/Vol] 0.5 mmol/L Normal 0.4-2.0 [facility] Comment on above: Performed By: #### 2 4339-4 ####JASON Carrasquillo ([id number])[facility] ([facility])[address] [place] [address]158 Oxygen (BldV) [Partial pressure] 19 mm Hg Low 35-45 [facility] Comment on above: Performed By: #### 2 4339-4 ####JASON Carrasquillo ([id number])[facility] ([facility])[id number] [place] [address] 58654 Oxygen saturation in Venous blood 14 % Low 45-75 [facility] Comment on above: Performed By: #### 2 4339-4 ####JASON Carrasquillo ([id number])[facility] ([facility])[address] [place] [address] 40462 Oxyhemoglobin (BldV) [Mass fraction] 13.5 % Low 45.0-75.0 [facility] Comment on above: Performed By: #### 2 4339-4 ####JASON Carrasqulilo ([id number])[facility] ([facility])[address] [place] [address] 95802 pH (BldV) 7.35 [pH] Normal 7.33-7.43 [facility] Comment on above: Performed By: #### 2 4339-4 ####JASON Carrasquillo ([id number])[facility] ([facility])[address] [place] [address] 68717 Potassium (BldV) [Moles/Vol] 4.0 mmol/L Normal 3.5-5.3 [facility] Comment on above: Performed By: #### 2 4339-4 ####JASON Carrasquillo ([id number])[facility] ([facility])[address] [place] [address] 36388 Sodium (BldV) [Moles/Vol] 136 mmol/L Normal 136-145 [facility] Comment on above: Performed By: #### 2 4339-4 ####JASON Carrasquillo ([id number])[facility] ([facility])[address] [place] [address] 30368 Glucose Test strip manual (B ld) [Mass/Vol]on 12-09-2024 Glucose [Mass/Vol] 353 mg/dL High 74 - 99 mg/dL [facility] Interpretation and review of laboratory results Abnormal [facility] Glucose [Mass/Vol] 353 mg/dL High 74-99 [facility] Comment on above: Performed By: #### 2 341-6 ####JASON Carrasquillo ([id number])[facility] ([facility])[address] [place] [address] 96323 Glucose [Mass/Vol] 174 mg/dL High 74 - 99 mg/dL [facility] Interpretation and review of laboratory results Abnormal [facility] Glucose [Mass/Vol] 174 mg/dL High 74-99 [facility] Comment on above: Performed By: #### 2 341-6 ####JASON Carrasquillo ([id number])[facility] ([facility])[address] [place] [address] 81190 Glucose [Mass/Vol] 163 mg/dL High 74 - 99 mg/dL [facility] Interpretation and review of laboratory results Abnormal [facility] Glucose [Mass/Vol] 163 mg/dL High 74-99 [facility] Comment on above: Performed By: #### 2 341-6 ####JASON Carrasquillo ([id number])[facility] ([facility])[address] [place] [address] 64066 Glucose [Mass/Vol] 140 mg/dL High 74 - 99 mg/dL [facility] Interpretation and review of laboratory results Abnormal [facility] Glucose [Mass/Vol] 140 mg/dL High 74-99 [facility] Comment on above: Performed By: #### 2 341-6 ####JASON Carrasquillo ([id number])[facility] ([facility])[address] [place] [address] 63459 Magnesiumon 12-09-2024 Magnesium [Mass/Vol] 1.68 mg/dL 1.60 - 2.40 mg/dL [facility] Magnesium [Mass/Vol] 1.68 mg/dL Normal 1.60-2.40 [facility] Comment on above: Performed By: #### 1 9123-9 ####JASON Carrasquillo ([id number])[facility] ([facility])[address] [place] [address] Magnesium [Mass/Vol]on 12-09 Interpretation and review of laboratory results Normal [facility] No Panel Informationon 12-[address] [facility] Renal function 2000 panelon 12-09-2024 Albumin BCP dye [Mass/Vol] 3.4 g/dL 3.4 - 5.0 g/dL [facility] Anion gap [Moles/Vol] 14 mmol/L 10 - 20 mmol/L [facility] Calcium [Mass/Vol] 8.7 mg/dL 8.6 - 10. 6 mg/dL [facility] Chloride [Moles/Vol] 107 mmol/L 98 - 10 7 mmol/L [facility] CO2 [Moles/Vol] 20 mmol/L Low 21 - 32 mmol/L [facility] Creatinine [Mass/Vol] 2.87 mg/dL High 0.50 - 1.30 mg/dL [facility] GFR/1.73 sq M.predicted among non-blacks MDRD (S/P/Bld) [Vol rate/Area] 25 mL/min/{1.73_m2} Low - PINF [facility] Comment on above: Calculations of cleopatra mated GFR are performed using the 2020 CKD-EPI Study Refit equation without the race variable for the IDMS-Traceable creatinine methods. https://jasn.asnjournals.org/content//ASN.269482 3386 Glucose [Mass/Vol] 178 mg/dL High 74 - 99 mg/dL [facility] Interpretation and review of laboratory results Abnormal [facility] Phosphate [Mass/Vol] 4.5 mg/dL 2.5 - 4 .9 mg/dL [facility] Potassium [Moles/Vol] 4.2 mmol/L 3.5 - 5.3 mmol/L [facility] Sodium [Moles/Vol] 137 mmol/L 136 - 145 mmol/L [facility] Urea nitrogen [Mass/Vol] 64 mg/dL High 6 - 23 mg/dL [facility] Albumin BCP dye [Mass/Vol] 3.4 g/dL Normal 3.4-5.0 [facility] Comment on above: Performed By: #### 2 4362-6 ####JASON Carrasquillo ([id number])[facility] ([facility])[address] [place] [address] Anion gap [Moles/Vol] 14 mmol/L Normal 10-20 [facility] Comment on above: Performed By: #### 2 4362-6 ####JASON Carrasquillo ([id number])[facility] ([facility])[address] [place] [address] Calcium [Mass/Vol] 8.7 mg/dL Normal 8.6-10.6 [facility] Comment on above: Performed By: #### 2 4362-6 ####JASON Carrasquillo ([id number])[facility] ([facility])[address] [place] [address] Chloride [Moles/Vol] 107 mmol/L Normal 98-107 [facility] Comment on above: Performed By: #### 2 4362-6 ####JASON Carrasquillo ([id number])[facility] ([facility])[address] [place] [address] CO2 [Moles/Vol] 20 mmol/L Low 21-32 [facility] Comment on above: Performed By: #### 2 4362-6 ####JASON Carrasquillo ([id number])[facility] ([facility])[address] [place] [address] Creatinine [Mass/Vol] 2.87 mg/dL High 0.50-1.30 [facility] Comment on above: Performed By: #### 2 4362-6 ####JASON Carrasquillo ([id number])[facility] ([facility])[address] [place] [address] Glomerular filtration rate/1.73 sq M.predicted 25 mL/min/1.73m*2 Low >60 [facility] Comment on above: Result Comment: Calc ulations of estimated GFR are performed using the 2020 CKD-EPI Study Refit equation without the race variable for the IDMS-Traceable creatinine methods.https://jasn.asnjournals.org/content/early/ N.8457873003 Performed By: #### 2 4362-6 ####JASON Carrasquillo ([id number])[facility] ([facility])[address] [place] [address] Glucose [Mass/Vol] 178 mg/dL High 74-99 [facility] Comment on above: Performed By: #### 2 4362-6 ####JASON JENNINGS L ([id number])[facility] ([facility])[address] [place] [address] Phosphate [Mass/Vol] 4.5 mg/dL Normal 2.5-4.9 [facility] Comment on above: Performed By: #### 2 4362-6 ####JASON JENNINGS L ([id number])[facility] ([facility])[address] [place] [address] Potassium [Moles/Vol] 4.2 mmol/L Normal 3.5-5.3 [facility] Comment on above: Performed By: #### 2 4362-6 ####JASON JENNINGS L ([id number])[facility] ([facility])[address] [place] [address] Sodium [Moles/Vol] 137 mmol/L Normal 136-145 [facility] Comment on above: Performed By: #### 2 4362-6 ####JASON CLARKMOZAY L ([id number])[facility] ([facility])[address] [facility] [place] [address] Urea nitrogen [Mass/Vol] 64 mg/dL High 6-23 [facility] Comment on above: Performed By: #### 2 4362-6 ####JASON Carrasquillo ([id number])[facility] ([facility])[address] [place] [address] Tacrolimuson 12-09-2024 Tacrolimus (Bld) [Mass/Vol] 2.4 ng/mL Normal <=15.0 [facility] Comment on above: Order Comment: NOTE: Result was obtained using achemiluminescent microparticle immunoassay(CMIA) on the [employer] system.Optimal therapeutic ranges for immunosuppressantdrugs depend upon an individualpatient's current clinical state, type oforgan transplant, time post-transplant,co-administration of other immunosuppressants,and other clinical factors. The results ofthis test should be correlated with additionalclinical and laboratory data before changesin treatment regimens are made. Performed By: #### 1 1253-2 ####JASON Carrasquillo ([id number])[facility] ([facility])[address] [place] [address] Tacrolimus (Bld) [Mass/Vol]O rdered By: Rhonda Boggs on 12-09-2024 Interpretation and review of laboratory results Normal [facility] NOTE: Result was obtained using a chemiluminescent microparticle immunoassay (CMIA) on the [employer] system. Optimal therapeutic ranges for immunosuppressant drugs depend upon an individual patient's current clinical state, type of organ transplant, time post-transplant, co-administration of other immunosuppressants, and other clinical factors. The results of this test should be correlated with additional clinical and laboratory data before changes in treatment regimens are made. [facility] Tacrolimus levelOrdered By: Rhonda Boggs on 12-09-2024 Tacrolimus (Bld) [Mass/Vol] 2.4 ng/mL NINF - 15.0 ng/mL [facility] CBC panel Auto (Bld)on 12-08 Erythrocyte distribution width (RBC) [Ratio] 17.9 % High 11.5 - 14.5 % [facility] Hematocrit (Bld) [Volume fraction] 24.2 % Low 41.0 - 52.0 % [facility] Hemoglobin (Bld) [Mass/Vol] 7.9 g/dL Low 13.5 - 17.5 g/dL [facility] Interpretation and review of laboratory results Abnormal [facility] MCH (RBC) [Entitic mass] 25.8 pg Low 26.0 - 34.[address] [facility] MCHC (RBC) [Mass/Vol] 32.6 g/dL 32.0 - 36.0 g/dL [facility] MCV (RBC) [Entitic vol] 79 fL Low 80 - [address] [facility] Nucleated RBC/100 WBC (Bld) [Ratio] 0 % [facility] Platelets (Bld) [#/Vol] 83 10*3/uL Low [facility] RBC (Bld) [#/Vol] 3.06 10*6/uL [facility] WBC (Bld) [#/Vol] 4.6 10*3/uL [facility] Erythrocyte distribution width (RBC) [Ratio] 17.9 % High 11.5-14.5 [facility] Comment on above: Performed By: #### 5 8410-2 ####JASON Carrasquillo ([id number])[facility] ([facility])[address] [place] [address] Hematocrit (Bld) [Volume fraction] 24.2 % Low 41.0-52.0 [facility] Comment on above: Performed By: #### 5 8410-2 ####JASON Carrasquillo ([id number])[facility] [facility] ([facility])[id number] [place] [address] Hemoglobin (Bld) [Mass/Vol] 7.9 g/dL Low 13.5-17.5 [facility] Comment on above: Performed By: #### 5 8410-2 ####JASON Carrasquillo ([id number])[facility] ([facility])[address] [place] [address]27 MCH (RBC) [Entitic mass] 25.8 pg Low 26.0-34.0 [facility] Comment on above: Performed By: #### 5 8410-2 ####JASON Carrasquillo ([id number])[facility] ([facility])[address] [place] [address] MCHC (RBC) [Mass/Vol] 32.6 g/dL Normal 32.0-36.0 [facility] Comment on above: Performed By: #### 5 8410-2 ####JASON Carrasquillo ([id number])[facility] ([facility])[address] [place] [address] MCV (RBC) [Entitic vol] 79 fL Low 80-100 [facility] Comment on above: Performed By: #### 5 8410-2 ####JASON Carrasquillo ([id number])[facility] ([facility])[address] [place] [address] Nucleated RBC/100 WBC (Bld) [Ratio] 0.0 /100 WBCs Normal 0.0-0.0 [facility] Comment on above: Performed By: #### 5 8410-2 ####JASON Carrasquillo ([id number])[facility] ([facility])[address] [place] [address] Platelets (Bld) [#/Vol] 83 x10*3/uL Low 150-450 [facility] Comment on above: Performed By: #### 5 8410-2 ####JASON Carrasquillo ([id number])[facility] ([facility])[address] [place] [address] RBC (Bld) [#/Vol] 3.06 x10*6/uL Low 4.50-5.90 [facility] Comment on above: Performed By: #### 5 8410-2 ####JASON Carrasquillo ([id number])[facility] ([facility])[address] [place] [address] WBC (Bld) [#/Vol] 4.6 x10*3/uL Normal 4.4-11.3 [facility] Comment on above: Performed By: #### 5 8410-2 ####JASON Carrasquillo ([id number])[facility] ([facility])[address] [place] [address] Glucose Test strip manual (B ld) [Mass/Vol]on 12-08-2024 Glucose [Mass/Vol] 145 mg/dL High 74 - 99 mg/dL [facility] Interpretation and review of laboratory results Abnormal [facility] Glucose [Mass/Vol] 145 mg/dL High 74-99 [facility] Comment on above: Performed By: #### 2 341-6 ####JASON Carrasquillo ([id number])[facility] ([facility])[address] [place] [address] Glucose [Mass/Vol] 245 mg/dL High 74 - 99 mg/dL [facility] Interpretation and review of laboratory results Abnormal [facility] Glucose [Mass/Vol] 245 mg/dL High 74-99 [facility] Comment on above: Performed By: #### 2 341-6 ####JASON Carrasquillo ([id number])[facility] ([facility])[address] [place] [address]60 Glucose [Mass/Vol] 120 mg/dL High 74 - 99 mg/dL [facility] Interpretation and review of laboratory results Abnormal [facility] Glucose [Mass/Vol] 120 mg/dL High 74-99 [facility] Comment on above: Performed By: #### 2 341-6 ####JASON Carrasquillo ([id number])[facility] ([facility])[address] [place] [address] Glucose [Mass/Vol] 255 mg/dL High 74 - 99 mg/dL [facility] Interpretation and review of laboratory results Abnormal [facility] Glucose [Mass/Vol] 255 mg/dL High 74-99 [facility] Comment on above: Performed By: #### 2 341-6 ####JASON Carrasquillo ([id number])[facility] ([facility])[address] [place] [address] Glucose [Mass/Vol] 130 mg/dL High 74 - 99 mg/dL [facility] Interpretation and review of laboratory results Abnormal [facility] Glucose [Mass/Vol] 130 mg/dL High 74-99 [facility] Comment on above: Performed By: #### 2 341-6 ####JASON Carrasquillo ([id number])[facility] ([facility])[address] [place] [address] Glucose [Mass/Vol] 121 mg/dL High 74 - 99 mg/dL [facility] Interpretation and review of laboratory results Abnormal [facility] Glucose [Mass/Vol] 121 mg/dL High 74-99 [facility] Comment on above: Performed By: #### 2 341-6 ####JASON Carrasquillo ([id number])[facility] ([facility])[address] [place] [address] Glucose [Mass/Vol] 150 mg/dL High 74 - 99 mg/dL [facility] Interpretation and review of laboratory results Abnormal [facility] Glucose [Mass/Vol] 150 mg/dL High 74-99 [facility] Comment on above: Performed By: #### 2 341-6 ####JASON Carrasquillo ([id number])[facility] ([facility])[address] [place] [address] 85516 Renal function 2000 panelon 12-08-2024 Albumin BCP dye [Mass/Vol] 3.3 g/dL Low 3.4 - 5.0 g/dL [facility] Anion gap [Moles/Vol] 12 mmol/L 10 - 20 mmol/L [facility] Calcium [Mass/Vol] 7.7 mg/dL Low 8.6 - 10. 6 mg/dL [facility] Chloride [Moles/Vol] 105 mmol/L 98 - 10 7 mmol/L [facility] CO2 [Moles/Vol] 24 mmol/L 21 - 32 mmol/L [facility] Creatinine [Mass/Vol] 3.11 mg/dL High 0.50 - 1.30 mg/dL [facility] GFR/1.73 sq M.predicted among non-blacks MDRD (S/P/Bld) [Vol rate/Area] 23 mL/min/{1.73_m2} Low - PINF [facility] Comment on above: Calculations of cleopatra mated GFR are performed using the 2020 CKD-EPI Study Refit equation without the race variable for the IDMS-Traceable creatinine methods. https://jasn.asnjournals.org/content//ASN.452682 5200 Glucose [Mass/Vol] 115 mg/dL High 74 - 99 mg/dL [facility] Interpretation and review of laboratory results Abnormal [facility] Phosphate [Mass/Vol] 3.8 mg/dL 2.5 - 4 .9 mg/dL [facility] Potassium [Moles/Vol] 4 mmol/L 3.5 - 5.3 mmol/L [facility] Sodium [Moles/Vol] 137 mmol/L 136 - 145 mmol/L [facility] Urea nitrogen [Mass/Vol] 56 mg/dL High 6 - 23 mg/dL [facility] Albumin BCP dye [Mass/Vol] 3.3 g/dL Low 3.4-5.0 [facility] Comment on above: Performed By: #### 2 4362-6 ####JASON Carrasquillo ([id number])[facility] ([facility])[address] [place] [address] Anion gap [Moles/Vol] 12 mmol/L Normal 10-20 [facility] Comment on above: Performed By: #### 2 4362-6 ####JASON Carrasquillo ([id number])[facility] ([facility])[address] [place] [address] Calcium [Mass/Vol] 7.7 mg/dL Low 8.6-10.6 [facility] Comment on above: Performed By: #### 2 4362-6 ####JASON Carrasquillo ([id number])[facility] ([facility])[address] [place] [address] Chloride [Moles/Vol] 105 mmol/L Normal 98-107 [facility] Comment on above: Performed By: #### 2 4362-6 ####JASON Carrasquillo ([id number])[facility] ([facility])[address] [place] [address] CO2 [Moles/Vol] 24 mmol/L Normal 21-32 [facility] Comment on above: Performed By: #### 2 4362-6 ####JASON Carrasquillo ([id number])[facility] ([facility])[address] [place] [address] Creatinine [Mass/Vol] 3.11 mg/dL High 0.50-1.30 [facility] Comment on above: Performed By: #### 2 4362-6 ####JASON Carrasquillo ([id number])[facility] ([facility])[address] [place] [address]679 Glomerular filtration rate/1.73 sq M.predicted 23 mL/min/1.73m*2 Low >60 [facility] Comment on above: Result Comment: Calc ulations of estimated GFR are performed using the 2020 CKD-EPI Study Refit equation without the race variable for the IDMS-Traceable creatinine methods.https://jasn.asnjournals.org/content/early/ N.5156739289 Performed By: #### 2 4362-6 ####JASON Carrasquillo ([id number])[facility] ([facility])[address] [place] [address] Glucose [Mass/Vol] 115 mg/dL High 74-99 [facility] Comment on above: Performed By: #### 2 4362-6 ####JASON Carrasquillo ([id number])[facility] ([facility])[address] [place] [address] Phosphate [Mass/Vol] 3.8 mg/dL Normal 2.5-4.9 [facility] Comment on above: Performed By: #### 2 4362-6 ####JASON Carrasquillo ([id number])[facility] ([facility])[address] [place] [address] Potassium [Moles/Vol] 4.0 mmol/L Normal 3.5-5.3 [facility] Comment on above: Performed By: #### 2 4362-6 ####JASON JENNINGS L ([id number])[facility] ([facility])[address] [place] [address] Sodium [Moles/Vol] 137 mmol/L Normal 136-145 [facility] Comment on above: Performed By: #### 2 4362-6 ####JASON JENNINGS L ([id number])[facility] ([facility])[address] [place] [address] Urea nitrogen [Mass/Vol] 56 mg/dL High 6-23 [facility] Comment on above: Performed By: #### 2 4362-6 ####JASON Carrasquillo ([id number])[facility] ([facility])[address] [place] [address] Tacrolimuson 12-08-2024 Tacrolimus (Bld) [Mass/Vol] 2.1 ng/mL Normal <=15.0 [facility] Comment on above: Order Comment: NOTE: Result was obtained using achemiluminescent microparticle immunoassay(CMIA) on the [employer] system.Optimal therapeutic ranges for immunosuppressantdrugs depend upon an individualpatient's current clinical state, type oforgan transplant, time post-transplant,co-administration of other immunosuppressants,and other clinical factors. The results ofthis test should be correlated with additionalclinical and laboratory data before changesin treatment regimens are made. Performed By: #### 1 1253-2 ####JASON Carrasquillo ([id number])[facility] ([facility])[address] [place] [address] Tacrolimus (Bld) [Mass/Vol]O rdered By: Jose Francisco Catherine on 12-08-2024 Interpretation and review of laboratory results Normal [facility] NOTE: Result was obtained using a chemiluminescent microparticle immunoassay (CMIA) on the [employer] system. Optimal therapeutic ranges for immunosuppressant drugs depend upon an individual patient's current clinical state, type of organ transplant, time post-transplant, co-administration of other immunosuppressants, and other clinical factors. The results of this test should be correlated with additional clinical and laboratory data before changes in treatment regimens are made. [facility] Tacrolimus levelOrdered By: Jose Francisco Catherine on 12-08-2024 Tacrolimus (Bld) [Mass/Vol] 2.1 ng/mL NINF - 15.0 ng/mL [facility] Blood type and Indirect anti body screen panel (Bld)on 12-07-2024 ABO group Nom (Bld) B [facility] Blood group antibody screen Ql Negative [facility] D Ag Ql (Bld) Positive [facility] ABO group Nom (Bld) B Normal [facility] Comment on above: Performed By: #### 3 4532-2 ####JASON Carrasquillo ([id number])[facility] ([facility])[address] [place] [address] Blood group antibody screen Ql Negative [facility] Comment on above: Performed By: #### 3 4532-2 ####JASON Carrasquillo ([id number])[facility] ([facility])[address] [place] [address] D Ag Ql (Bld) Positive [facility] Comment on above: Performed By: #### 3 4532-2 ####JASON Carrasquillo ([id number])[facility] ([facility])[address] [place] [address] C. difficile toxin A+B tcdA+ tcdB genes SAQIB+probe Ql (Stl)Ordered By: Nadine Burroughs on 12-07-2024 Interpretation and review of laboratory results [facility] This test is an FDA-cleared real-time PCR assay for detection of toxigenic C. difficile DNA from unprocessed liquid or unformed stool specimens that have not undergone nucleic acid extraction in symptomatic patients with potential C. difficile infection (CDI). A positive result may indicate colonization, and clinical assessment is required for the diagnosis of CDI. This test cannot be performed on formed stools or used as a test of cure, and should not be performed more than once per [address] [facility] CBC panel Auto (Bld)on 12-07 Erythrocyte distribution width (RBC) [Ratio] 17.9 % High 11.5 - 14.5 % [facility] Hematocrit (Bld) [Volume fraction] 21.7 % Low 41.0 - 52.0 % [facility] Hemoglobin (Bld) [Mass/Vol] 6.8 g/dL Low 13.5 - 17.5 g/dL [facility] Interpretation and review of laboratory results Abnormal [facility] MCH (RBC) [Entitic mass] 24.5 pg Low 26.0 - 34.[address] [facility] MCHC (RBC) [Mass/Vol] 31.3 g/dL Low 32.0 - 36.0 g/dL [facility] MCV (RBC) [Entitic vol] 78 fL Low 80 - [address] [facility] Nucleated RBC/100 WBC (Bld) [Ratio] 0 % [facility] Platelets (Bld) [#/Vol] 91 10*3/uL Low [facility] RBC (Bld) [#/Vol] 2.78 10*6/uL [facility] WBC (Bld) [#/Vol] 4.5 10*3/uL [facility] Erythrocyte distribution width (RBC) [Ratio] 17.9 % High 11.5-14.5 [facility] Comment on above: Performed By: #### 5 8410-2 ####JASON Carrasqiullo ([id number])[facility] ([facility])[address] [place] [address] Hematocrit (Bld) [Volume fraction] 21.7 % Low 41.0-52.0 [facility] Comment on above: Performed By: #### 5 8410-2 ####JASON Carrasquillo ([id number])[facility] ([facility])[address] [place] [address] Hemoglobin (Bld) [Mass/Vol] 6.8 g/dL Low 13.5-17.5 [facility] Comment on above: Performed By: #### 5 8410-2 ####JASON Carrasquillo ([id number])[facility] ([facility])[address] [place] [address] MCH (RBC) [Entitic mass] 24.5 pg Low 26.0-34.0 [facility] Comment on above: Performed By: #### 5 8410-2 ####JASON Carrasquillo ([id number])[facility] ([facility])[address] [place] [address] MCHC (RBC) [Mass/Vol] 31.3 g/dL Low 32.0-36.0 [facility] Comment on above: Performed By: #### 5 8410-2 ####JASON Carrasquillo ([id number])[facility] ([facility])[address] [place] [address] MCV (RBC) [Entitic vol] 78 fL Low 80-100 [facility] Comment on above: Performed By: #### 5 8410-2 ####JAOSN Carrasquillo ([id number])[facility] ([facility])[address] [place] [address] Nucleated RBC/100 WBC (Bld) [Ratio] 0.0 /100 WBCs Normal 0.0-0.0 [facility] Comment on above: Performed By: #### 5 8410-2 ####JASON Carrasquillo ([id number])[facility] ([facility])[address] [place] [address] Platelets (Bld) [#/Vol] 91 x10*3/uL Low 150-450 [facility] Comment on above: Performed By: #### 5 8410-2 ####JASON Carrasquillo ([id number])[facility] ([facility])[address] [place] [address] RBC (Bld) [#/Vol] 2.78 x10*6/uL Low 4.50-5.90 [facility] Comment on above: Performed By: #### 5 8410-2 ####JASON Carrasquillo ([id number])[facility] ([facility])[address] [place] [address] WBC (Bld) [#/Vol] 4.5 x10*3/uL Normal 4.4-11.3 [facility] Comment on above: Performed By: #### 5 8410-2 ####JASON Carrasquillo ([id number])[facility] ([facility])[address] [place] [address] CMV DNA SAQIB+probe Qn (P)Orde red By: Patricia De La O on 12-07-2024 CMV DNA SAQIB+probe (P) [Log units/Vol] [facility] Comment on above: Not calculated Laboratory comment Hugh (Report) Not detected Not Detected [facility] Reportable Range: 35-10,000,000 IU/mL. The sophie CMV test is an in vitro nucleic acid amplification test for the quantitation of Cytomegalovirus (CMV) DNA in human EDTA plasma on the sophie [employer]/88[employer] Systems. The analytical quantification range of this assay has been determined to be 35 to 10,000,000 IU/ml in plasma. Mutations within the highly-conserved regions of the CMV DNA polymerase (UL54) gene covered by sophie CMV may affect primers and/or probe binding resulting in the under-quantitation of virus or failure to detect the presence of virus. The sophie CMV mitigates this risk through the use of redundant amplification primers. Negative test results do not preclude CMV infection or tissue-invasive CMV disease, and test results should therefore not be the sole basis for patient management decisions If the assay DETECTED the presence of the virus but was not able to accurately quantify the number of copies, the test result will be reported as <35 Detected or >10,000,000 Detected. The sophie CMV is intended for use as an aid in the management of CMV in solid organ transplant patients and in hematopoietic stem cell transplant patients. In patients receiving anti-CMV therapy, serial DNA measurements can be used to assess viral response to treatment. The results from sophie CMV must be interpreted within the context of all relevant clinical and laboratory findings. This test is approved by the [place] Food and Drug Administration, and its performance characteristics verified by the [facility], Department of Pathology, [facility]. [facility] CMV DNA SAQIB+probe Qn (P)on 0 12-07-2024 CMV DNA RESULT Not detected Normal Not Detected [facility] Comment on above: Order Comment: Repor table Range: 35-10,000,000 IU/mL.The sophie CMV test is an in vitro nucleic acid amplification test for the quantitation of Cytomegalovirus (CMV) DNA in human EDTA plasma on the sophie 6800/8800 Systems. The analytical quantification range of this assay has been determined to be 35 to 10,000,000 IU/ml in plasma.Mutations within the highly-conserved regions of the CMV DNA polymerase (UL54) gene covered by sophie CMV may affect primers and/or probe binding resulting in the under-quantitation of virus or failure to detect the presence of virus. The sophie CMV mitigates this risk through the use of redundant amplification primers. Negative test results do not preclude CMV infection or tissue-invasive CMV disease, and test results should therefore not be the sole basis for patient management decisionsIf the assay DETECTED the presence of the virus but was not able to accurately quantify the number of copies, the test result will be reported as <35 Detected or >10,000,000 Detected.The sophie CMV is intended for use as an aid in the management of CMV in solid organ transplant patients and in hematopoietic stem cell transplant patients. In patients receiving anti-CMV therapy, serial DNA measurements can be used to assess viral response to treatment. The results from sophie CMV must beinterpreted within the context of all relevant clinical and laboratory findings.This test is approved by the [place] Food and Drug Administration, and its performance characteristics verified by the [facility] Laboratory, Department of Pathology, [facility]. Performed By: #### 7 2493-0 ####JASON Carrasquillo ([id number])[facility] ([facility])[address] [place] [address] CYTOMEGALOVIRUS DNA, PCR LOG IU/ML Normal [facility] Comment on above: Order Comment: Repor table Range: 35-10,000,000 IU/mL.The sophie CMV test is an in vitro nucleic acid amplification test for the quantitation of Cytomegalovirus (CMV) DNA in human EDTA plasma on the sophie 6800/8800 Systems. The analytical quantification range of this assay has been determined to be 35 to 10,000,000 IU/ml in plasma.Mutations within the highly-conserved regions of the CMV DNA polymerase (UL54) gene covered by sophie CMV may affect primers and/or probe binding resulting in the under-quantitation of virus or failure to detect the presence of virus. The sophie CMV mitigates this risk through the use of redundant amplification primers. Negative test results do not preclude CMV infection or tissue-invasive CMV disease, and test results should therefore not be the sole basis for patient management decisionsIf the assay DETECTED the presence of the virus but was not able to accurately quantify the number of copies, the test result will be reported as <35 Detected or >10,000,000 Detected.The sophie CMV is intended for use as an aid in the management of CMV in solid organ transplant patients and in hematopoietic stem cell transplant patients. In patients receiving anti-CMV therapy, serial DNA measurements can be used to assess viral response to treatment. The results from sophie CMV must beinterpreted within the context of all relevant clinical and laboratory findings.This test is approved by the [place] Food and Drug Administration, and its performance characteristics verified by the [facility] Diagnostic Laboratory, Department of Pathology, [facility]. Result Comment: Not calculated Performed By: #### 7 2493-0 ####JASON Carrasquillo ([id number])[facility] ([facility])[address] [place] [address] Clostridioides difficile tox in A+B tcdA+tcdB geneson 12-07-2024 C. difficile toxin A+B tcdA+tcdB genes SAQIB+probe Ql (Stl) Clostridioides difficile toxin A+B tcdA+tcdB genes Not Detected Normal Not Detected [facility] Comment on above: Order Comment: This test is an FDA-cleared real-time PCR assay for detection of toxigenic C. difficile DNA from unprocessed liquid or unformed stool specimens that have not undergone nucleic acid extraction in symptomatic patients with potential C. difficile infection (CDI). A positive result may indicate colonization, and clinical assessment is required for the diagnosis of CDI. This test cannot be performed on formed stools or used as a test of cure, and should not be performed more than once per 7 days. Performed By: #### 8 0685-1 ####JASON Carrasquillo ([id number])[facility] ([facility])[address] [facility] [place] [address] Ferritinon 12-07-2024 Ferritin [Mass/Vol] 3218 ng/mL High 20 - 300 ng/mL [facility] Ferritin [Mass/Vol] 3218 ng/mL High 20-300 [facility] Comment on above: Performed By: #### 2 276-4 ####JASON Carrasquillo ([id number])[facility] ([facility] [id number] [place] [address] 20204 Ferritin [Mass/Vol]on 2024 Interpretation and review of laboratory results Abnormal [facility] Gastrointestinal pathogens i dentifiedon 12-07-2024 Gastrointestinal pathogens identified SAQIB+probe Nom (Stl) Normal Not Detected [facility] Comment on above: Performed By: #### 7 9390-1 ####JASON Carrasquillo ([id number])[facility] ([facility])[address] [place] [address] 65351 Gastrointestinal pathogens i dentified SAQIB+probe Nom (Stl)on 12-07-2024 Campylobacter Group Not detected Not Detected [facility] Work Phone: [phone] E. coli stx1 gene SAQIB+probe Ql (Stl) Not detected Not Detected, Indeterminate [facility] Work Phone: [phone] E. coli stx2 gene SAQIB+probe Ql (Stl) Not detected Not Detected, Indeterminate [facility] Work Phone: [phone] Interpretation and review of laboratory results Normal [facility] Work Phone: [phone] Norovirus genogroup I and II RNA SAQIB+probe Nom (Stl) Not detected Not Detected [facility] Work Phone: [phone] Rotavirus RNA SAQIB+probe Nom (Stl) Not detected Not Detected [facility] Work Phone: [phone] Salmonella species Not detected Not Detected [facility] Work Phone: [phone] Shigella sp DNA SAQIB+probe Ql (Unsp spec) Not detected Not Detected [facility] Work Phone: V[employer] Not detected Not Detected [facility] Work Phone: Y. enterocolitica DNA SAQIB+probe Ql (Stl) Not detected Not Detected [facility] Work Phone: [facility] Work Phone: Glucose Test strip manual (B ld) [Mass/Vol]on 12-07-2024 Glucose [Mass/Vol] 235 mg/dL High 74 - 99 mg/dL [facility] Interpretation and review of laboratory results Abnormal [facility] Glucose [Mass/Vol] 235 mg/dL High 74-99 [facility] Comment on above: Performed By: #### 2 341-6 ####JASON Carrasquillo ([id number])[facility] ([facility])[address] [place] [address] 21679 Glucose [Mass/Vol] 218 mg/dL High 74 - 99 mg/dL [facility] Interpretation and review of laboratory results Abnormal [facility] Glucose [Mass/Vol] 218 mg/dL High 74-99 [facility] Comment on above: Performed By: #### 2 341-6 ####JASON Carrasquillo ([id number])[facility] ([facility])[address] [place] [address] 51756 Glucose [Mass/Vol] 137 mg/dL High 74 - 99 mg/dL [facility] Interpretation and review of laboratory results Abnormal [facility] Glucose [Mass/Vol] 137 mg/dL High 74-99 [facility] Comment on above: Performed By: #### 2 341-6 ####JASON Carrasquillo ([id number])[facility] ([facility])[address] [place] [address] 06101 Glucose [Mass/Vol] 74 mg/dL 74 - 99 mg/dL [facility] Interpretation and review of laboratory results Normal [facility] Glucose [Mass/Vol] 74 mg/dL Normal 74-99 [facility] Comment on above: Performed By: #### 2 341-6 ####JASON Carrasquillo ([id number])[facility] ([facility])[address] [place] [address] 29463 Glucose [Mass/Vol] 109 mg/dL High 74 - 99 mg/dL [facility] Interpretation and review of laboratory results Abnormal [facility] Glucose [Mass/Vol] 109 mg/dL High 74-99 [facility] Comment on above: Performed By: #### 2 341-6 ####JASON Carrasquillo ([id number])[facility] ([facility])[address] [place] [address] 40482 Iron and Iron binding capaci ty panelon 12-07-2024 Interpretation and review of laboratory results Abnormal [facility] Iron [Mass/Vol] 167 ug/dL High 35 - 150 ug/dL [facility] Iron binding capacity [Mass/Vol] [facility] Comment on above: One or more of the a nalytes used in this calculation is outside of the analytical measurement range. Iron binding capacity.unsaturated [Mass/Vol] ug/dL Low 110 - 370 ug/dL [facility] Iron saturation [Mass fraction] [facility] Comment on above: One or more analytes used in this calculation is outside of the analytical measurement range. Calculation cannot be performed. [facility] Iron [Mass/Vol] 167 ug/dL High 35-150 [facility] Comment on above: Performed By: #### 5 0190-8 ####JASON Carrasquillo ([id number])[facility] ([facility])[address] [place] [address] 36959 Iron binding capacity [Mass/Vol] Normal [facility] Comment on above: Result Comment: One or more of the analytes used in this calculation is outside of the analytical measurement range. Performed By: #### 5 0190-8 ####JASON Carrasquillo ([id number])[facility] ([facility])[address] [place] [address] 42886 Iron binding capacity.unsaturated [Mass/Vol] <55 Low 110-370 [facility] Comment on above: Performed By: #### 5 0190-8 ####JASON Carrasquillo ([id number])[facility] ([facility])[id number] [place] [address] 21341 Iron saturation [Mass fraction] Normal [facility] Comment on above: Result Comment: One or more analytes used in this calculation is outside of the analytical measurement range. Calculation cannot be performed. Performed By: #### 5 0190-8 ####JASON Carrasquillo ([id number])[facility] ([facility])[id number] [place] [address] 82748 Magnesiumon 12-07-2024 Magnesium [Mass/Vol] 1.62 mg/dL 1.60 - 2.40 mg/dL [facility] Magnesium [Mass/Vol] 1.62 mg/dL Normal 1.60-2.40 [facility] Comment on above: Performed By: #### 1 9123-9 ####JASON Carrasquillo ([id number])[facility] ([facility])[address] [place] [address] 27124 Magnesium [Mass/Vol]on 12-07 Interpretation and review of laboratory results Normal [facility] No Panel Informationon 12-[address] [facility] Interpretation and review of laboratory results Abnormal [facility] Prepare RBC: 1 Unitson 12-07 Blood Expiration Date 12/26/2024 11:59:00 PM EDT [facility] Dispense Status TR [facility] PRODUCT BLOOD TYPE 7300 [facility] PRODUCT CODE [id number] [facility] Unit ABO B [facility] Unit Number [id number] [facility] Unit RH Positive [facility] UNIT VOLUME [address] [facility] XM INTEP COMP [facility] Renal function 2000 panelon 12-07-2024 Albumin BCP dye [Mass/Vol] 3.3 g/dL Low 3.4 - 5.0 g/dL [facility] Anion gap [Moles/Vol] 13 mmol/L 10 - 20 mmol/L [facility] Calcium [Mass/Vol] 8.3 mg/dL Low 8.6 - 10. 6 mg/dL [facility] Chloride [Moles/Vol] 103 mmol/L 98 - 10 7 mmol/L [facility] CO2 [Moles/Vol] 28 mmol/L 21 - 32 mmol/L [facility] Creatinine [Mass/Vol] 2.04 mg/dL High 0.50 - 1.30 mg/dL [facility] GFR/1.73 sq M.predicted among non-blacks MDRD (S/P/Bld) [Vol rate/Area] 38 mL/min/{1.73_m2} Low - PINF [facility] Comment on above: Calculations of cleopatra mated GFR are performed using the 2020 CKD-EPI Study Refit equation without the race variable for the IDMS-Traceable creatinine methods. https://jasn.asnjournals.org/content//ASN.809426 3276 Glucose [Mass/Vol] 95 mg/dL 74 - 99 mg/dL [facility] Interpretation and review of laboratory results Abnormal [facility] Phosphate [Mass/Vol] 3.3 mg/dL 2.5 - 4 .9 mg/dL [facility] Potassium [Moles/Vol] 3.1 mmol/L Low 3.5 - 5.3 mmol/L [facility] Sodium [Moles/Vol] 141 mmol/L 136 - 145 mmol/L [facility] Urea nitrogen [Mass/Vol] 48 mg/dL High 6 - 23 mg/dL [facility] Albumin BCP dye [Mass/Vol] 3.3 g/dL Low 3.4-5.0 [facility] Comment on above: Performed By: #### 2 4362-6 ####JASON Carrasquillo ([id number])[facility] ([facility])[id number] [place] [address] Anion gap [Moles/Vol] 13 mmol/L Normal 10-20 [facility] Comment on above: Performed By: #### 2 4362-6 ####JASON Carrasquillo ([id number])[facility] ([facility])[address] [place] [address] Calcium [Mass/Vol] 8.3 mg/dL Low 8.6-10.6 [facility] Comment on above: Performed By: #### 2 4362-6 ####JASON Carrasquillo ([id number])[facility] ([facility])[address] [place] [address] Chloride [Moles/Vol] 103 mmol/L Normal 98-107 [facility] Comment on above: Performed By: #### 2 4362-6 ####JASON Carrasquillo ([id number])[facility] ([facility])[address] [place] [address] CO2 [Moles/Vol] 28 mmol/L Normal 21-32 [facility] Comment on above: Performed By: #### 2 4362-6 ####JASON Carrasquillo ([id number])[facility] ([facility])[address] [place] [address] Creatinine [Mass/Vol] 2.04 mg/dL High 0.50-1.30 [facility] Comment on above: Performed By: #### 2 4362-6 ####JASON JENNINGS L ([id number])[facility] ([facility])[address] [place] [address] Glomerular filtration rate/1.73 sq M.predicted 38 mL/min/1.73m*2 Low >60 [facility] Comment on above: Result Comment: Calc ulations of estimated GFR are performed using the 2020 CKD-EPI Study Refit equation without the race variable for the IDMS-Traceable creatinine methods.https://jasn.asnjournals.org/content// N.2786187271 Performed By: #### 2 4362-6 ####JASON Carrasquillo ([id number])[facility] ([facility])[address] [place] [address] Glucose [Mass/Vol] 95 mg/dL Normal 74-99 [facility] Comment on above: Performed By: #### 2 4362-6 ####JASON Carrasquillo ([id number])[facility] ([facility])[address] [place] [address] Phosphate [Mass/Vol] 3.3 mg/dL Normal 2.5-4.9 [facility] Comment on above: Performed By: #### 2 4362-6 ####JASON Carrasquillo ([id number])[facility] ([facility])[address] [place] [address] 24063 Potassium [Moles/Vol] 3.1 mmol/L Low 3.5-5.3 [facility] Comment on above: Performed By: #### 2 4362-6 ####JASON Carrasquillo ([id number])[facility] ([facility])[id number] [place] [address]773 Sodium [Moles/Vol] 141 mmol/L Normal 136-145 [facility] Comment on above: Performed By: #### 2 4362-6 ####JASON Carrasquillo ([id number])[facility] ([facility])[address] [place] [address] Urea nitrogen [Mass/Vol] 48 mg/dL High 6-23 [facility] Comment on above: Performed By: #### 2 4362-6 ####JASON Carrasquillo ([id number])[facility] ([facility])[address] [place] [address] 52618 Surgical pathology studyon 0 12-07-2024 Surgical pathology study Normal [facility] Tacrolimuson 12-07-2024 Tacrolimus (Bld) [Mass/Vol] 4.6 ng/mL Normal <=15.0 [facility] Comment on above: Order Comment: NOTE: Result was obtained using achemiluminescent microparticle immunoassay(CMIA) on the [employer] system.Optimal therapeutic ranges for immunosuppressantdrugs depend upon an individualpatient's current clinical state, type oforgan transplant, time post-transplant,co-administration of other immunosuppressants,and other clinical factors. The results ofthis test should be correlated with additionalclinical and laboratory data before changesin treatment regimens are made. Performed By: #### 1 1253-2 ####JASON Carrasquillo ([id number])[facility] ([facility])[id number] [place] [address] Tacrolimus (Bld) [Mass/Vol]O rdered By: Chucky Reynolds on 12-07-2024 Interpretation and review of laboratory results Normal [facility] NOTE: Result was obtained using a chemiluminescent microparticle immunoassay (CMIA) on the [employer] system. Optimal therapeutic ranges for immunosuppressant drugs depend upon an individual patient's current clinical state, type of organ transplant, time post-transplant, co-administration of other immunosuppressants, and other clinical factors. The results of this test should be correlated with additional clinical and laboratory data before changes in treatment regimens are made. [facility] Tacrolimus levelOrdered By: Chucky Reynolds on 12-07-2024 Tacrolimus (Bld) [Mass/Vol] 4.6 ng/mL NINF - 15.0 ng/mL [facility] Kidney limitedon 12-08-19 25 Status post successf ul ultrasound guided core needle biopsy of right lower quadrant transplant kidney. Specimen(s) Sent to pathology. I was present for and/or performed the critical portions of the procedure and immediately available throughout the entire procedure. I personally reviewed the image(s) / study and interpretation. I agree with the findings as stated. Performed and dictated at [facility]. MACRO: None. Signed by: Apollo Garcia 12/07/2024 11:35 PM Dictation workstation: [id number] Interpreted By: Apollo Fuentes and Gupta Jayesh STUDY: US RENAL TRANSPLANT BIOPSY; 12/07/2024 1:26 pm INDICATION: Signs/Symptoms:Hx of delayed graft failure of transplanted kidney, recent biospy shows borderline rejection, new admission for rising K. COMPARISON: Renal ultrasound 11/25/2024 ACCESSION NUMBER(S): [id number] ORDERING CLINICIAN: MARIAA DWYER TECHNIQUE: INTERVENTIONALIST(S): MD Babak Jackson MD CONSENT: The patient/patient's POA/next of kin was informed of the nature of the proposed procedure. The purposes, alternatives, risks, and benefits were explained and discussed. All questions were answered and consent was obtained. SEDATION: Moderate conscious IV sedation services (supervision of administration, induction, and maintenance) were provided by the physician performing the procedure with intravenous fentanyl 50mcg and versed 1mg. The physician was assisted by an independent trained observer, an interventional radiology nurse, in the continuous monitoring of patient level of consciousness and physiologic status. MEDICATION/CONTRAST: No additional. TIME OUT: A time out was performed immediately prior to procedure start with the interventional team, correctly identifying the patient name, date of , MRN, procedure, anatomy (including marking of site and side), patient position, procedure consent form, relevant laboratory and imaging test results, antibiotic administration, safety precautions, and procedure-specific equipment needs. COMPLICATIONS: No immediate adverse events identified. FINDINGS: The patient was placed in the supine position. Limited sonographic images of the right lower quadrant were obtained for purposes of needle guidance, which demonstrated unremarkable appearance of transplant kidney. The area of concern was prepped and draped under sterile technique. 1% lidocaine was injected subcutaneously and then into the deeper tissues surrounding the targeted area for biopsy. An 18 gauge core biopsy needle was passed via a 17 gauge coaxial introducer needle to obtain a total of 2 core samples. Postprocedure images demonstrate no evidence for hemorrhage. The patient tolerated the procedure well and there were no immediate complications. Specimen(s) sent to pathology. [facility] MMODAL Apollo Garcia MD - 12/07/2024 Interpreted By: Apollo Garcia and Gupta Jayesh STUDY: US RENAL TRANSPLANT BIOPSY; 12/07/2024 1:26 pm INDICATION: Signs/Symptoms:Hx of delayed graft failure of transplanted kidney, recent biospy shows borderline rejection, new admission for rising K. COMPARISON: Renal ultrasound 11/25/2024 ACCESSION NUMBER(S): [id number] ORDERING CLINICIAN: MARIAA DWYER TECHNIQUE: INTERVENTIONALIST(S): MD Babak Jackson MD CONSENT: The patient/patient's POA/next of kin was informed of the nature of the proposed procedure. The purposes, alternatives, risks, and benefits were explained and discussed. All questions were answered and consent was obtained. SEDATION: Moderate conscious IV sedation services (supervision of administration, induction, and maintenance) were provided by the physician performing the procedure with intravenous fentanyl 50mcg and versed 1mg. The physician was assisted by an independent trained observer, an interventional radiology nurse, in the continuous monitoring of patient level of consciousness and physiologic status. MEDICATION/CONTRAST: No additional. TIME OUT: A time out was performed immediately prior to procedure start with the interventional team, correctly identifying the patient name, date of , MRN, procedure, anatomy (including marking of site and side), patient position, procedure consent form, relevant laboratory and imaging test results, antibiotic administration, safety precautions, and procedure-specific equipment needs. COMPLICATIONS: No immediate adverse events identified. FINDINGS: The patient was placed in the supine position. Limited sonographic images of the right lower quadrant were obtained for purposes of needle guidance, which demonstrated unremarkable appearance of transplant kidney. The area of concern was prepped and draped under sterile technique. 1% lidocaine was injected subcutaneously and then into the deeper tissues surrounding the targeted area for biopsy. An 18 gauge core biopsy needle was passed via a 17 gauge coaxial introducer needle to obtain a total of 2 core samples. Postprocedure images demonstrate no evidence for hemorrhage. The patient tolerated the procedure well and there were no immediate complications. Specimen(s) sent to pathology. IMPRESSION: Status post successful ultrasound guided core needle biopsy of right lower quadrant transplant kidney. Specimen(s) Sent to pathology. I was present for and/or performed the critical portions of the procedure and immediately available throughout the entire procedure. I personally reviewed the image(s) / study and interpretation. I agree with the findings as stated. Performed and dictated at [facility]. MACRO: None. Signed by: Apollo Garcia 12/07/2024 11:35 PM Dictation workstation: [id number] [facility] Work Phone: Radiology Study observation (narrative) [facility] Work Phone: US Kidney limitedOrdered By: Apollo Garcia on 12-07-[address] [facility] Work Phone: US RENAL TRANSPLANT BIOPSYon 12-07-2024 US RENAL TRANSPLANT BIOPSY Normal [facility] Urinalysis complete panel (U )on 12-07-2024 Appearance (U) Clear Clear [facility] Bilirubin (U) [Mass/Vol] Negative NEGATIVE mg/dL [facility] Color (U) Colorless Abnormal Light-Yellow, Yellow, Dark-Yellow [facility] Glucose Auto test strip (U) [Mass/Vol] 200 (2+) Abnormal Normal mg/dL [facility] Ketones (U) [Mass/Vol] Negative NEGATIVE mg/dL [facility] Leukocyte esterase Auto test strip Ql (U) Negative NEGATIVE [facility] Nitrite Auto test strip Ql (U) Negative NEGATIVE [facility] pH (U) 6 [pH] 5.0, 5.5, 6.0, 6.5, 7.0, 7.5, 8.[address] [facility] Protein (U) [Mass/Vol] Negative NEGATIVE, 10 (TRACE), 20 (TRACE) mg/dL [facility] RBC (U) [#/Vol] 0.03 (TRACE) Abnormal NEGATIVE mg/dL [facility] Specific gravity (U) [Rel density] 1.009 1.005 - 1.[address] [facility] Urobilinogen (U) [Mass/Vol] Normal Normal mg/dL [facility] Appearance (U) Clear Normal Clear [facility] Comment on above: Performed By: #### 2 4356-8 ####JASON Carrasquillo ([id number])[facility] ([facility])[address] [place] [address] 83138 Bilirubin (U) [Mass/Vol] Negative Normal NEGATIVE [facility] Comment on above: Performed By: #### 2 4356-8 ####JASON Carrasquillo ([id number])[facility] ([facility])[address] [place] [address] 67618 Color (U) Colorless Normal Light-Yellow, Yellow, Dark-Yellow [facility] Comment on above: Performed By: #### 2 4356-8 ####JASON Carrasquillo ([id number])[facility] ([facility])[address] [place] [address] 46218 Glucose Auto test strip (U) [Mass/Vol] 200 (2+) Abnormal Normal [facility] Comment on above: Performed By: #### 2 4356-8 ####JASON Carrasquillo ([id number])[facility] ([facility])[address] [place] [address] 08211 Ketones (U) [Mass/Vol] Negative Normal NEGATIVE [facility] Comment on above: Performed By: #### 2 4356-8 ####JASON Carrasquillo ([id number])[facility] ([facility])[address] [place] [address] 27580 Leukocyte esterase Auto test strip Ql (U) Negative Normal NEGATIVE [facility] Comment on above: Performed By: #### 2 4356-8 ####JASON Carrasquillo ([id number])[facility] ([facility])[address] [place] [address], [place] [address] Nitrite Auto test strip Ql (U) Negative Normal NEGATIVE [facility] Comment on above: Performed By: #### 2 4356-8 ####JASON Carrasquillo ([id number])[facility] ([facility])[address] [place] [address] pH (U) 6.0 [pH] Normal 5.0, 5.5, 6.0, 6.5, 7.0, 7.5, 8.0 [facility] Comment on above: Performed By: #### 2 4356-8 ####JASON Carrasquillo ([id number])[facility] ([facility])[address] [place] [address] Protein (U) [Mass/Vol] Negative Normal NEGATIVE, 10 (TRACE), 20 (TRACE) [facility] Comment on above: Performed By: #### 2 4356-8 ####JASON Carrasquillo ([id number])[facility] ([facility])[id number] [place] [address] 09429 RBC (U) [#/Vol] 0.03 (TRACE) Abnormal NEGATIVE [facility] Comment on above: Performed By: #### 2 4356-8 ####JASON Carrasquillo ([id number])[facility] ([facility])[address] [place] [address] Specific gravity (U) [Rel density] 1.009 Normal 1.005-1.035 [facility] Comment on above: Performed By: #### 2 4356-8 ####JASON Carrasquillo ([id number])[facility] ([facility])[address] [place] [address] 09976 Urobilinogen (U) [Mass/Vol] Normal Normal Normal [facility] Comment on above: Performed By: #### 2 4356-8 ####JASON Carrasquillo ([id number])[facility] ([facility])[address] [place] [address] 70524 Urinalysis microscopic panel Auto Ql (U)on 12-07-2024 Hyaline casts Auto (Urine sed) [#/Area] OCCASIONAL Abnormal NONE /LPF [facility] RBC Auto (Urine sed) [#/Area] 6-10 Abnormal NONE, 1-2, 3-5 /HPF [facility] WBC Auto (Urine sed) [#/Area] NONE 1-5, NONE /HPF [facility] Hyaline casts Auto (Urine sed) [#/Area] OCCASIONAL Abnormal NONE [facility] Comment on above: Performed By: #### 5 5355-8 ####JASON Carrasquillo ([id number])[facility] ([facility])[address] [place] [address] 31694 RBC Auto (Urine sed) [#/Area] 6-10 Abnormal NONE, 1-2, 3-5 [facility] Comment on above: Performed By: #### 5 3315-8 ####JASON Carrasquillo ([id number])[facility] ([facility])[address] [place] [address] 82976 WBC Auto (Urine sed) [#/Area] NONE Normal 1-5, NONE [facility] Comment on above: Performed By: #### 5 3315-8 ####JASON Carrasquillo ([id number])[facility] ([facility])[address] [place] [address] 74402 BK virus DNA SAQIB+probe Anette 12-06-2024 BK VIRUS LOG PCR Normal [facility] Comment on above: Order Comment: Repor table range: 21.5-100,000,000 IU/mLThe sophie BKV is an in vitro nucleic acid amplification test for the quantitation of BK virus (BKV) DNA in human EDTA plasma on the sophie 6800/8800 Systems. The test employs a dual target virus specific approach from highly-conserved regions of the BKV located in the BKV small t-antigen region and the BKV VP2 region. The analytical quantification range of this assay has been determined to be 21.5 to 100,000,000 IU/ml in plasma.As with any molecular test, mutations within the target regions of sophie BKV could affect primer and/or probe binding resulting in the under-quantitation of virus or failure to detect the presence of virus.If the assay DETECTED the presence of the virus, but was not able to accurately quantify the number of copies, the test result will be reported as <21.5 Detected or >100,000,000 Detected.The sophie BKV is intended for use as an aid in the management of BKV in transplant patients. In patients undergoing monitoring of BKV in EDTA plasma, serial DNA measurements can be used to indicate the need for potential treatment changes and to assess viral response to treatment. The results from sophie BKV are intended to be read and analyzed by a qualified licensed healthcare professional in conjunction with clinical signs and symptoms and relevant laboratory findings. Test results must not be the sole basis for patient management decisions.This test is approved by the [place] Food and Drug Administration, and its performance characteristics verified by the Molecular Diagnostic Laboratory, Department of Pathology, [facility]. Result Comment: Not calculated Performed By: #### 3 2284-2 ####JASON Carrasquillo ([id number])[facility] ([facility])[address] [place] [address] BKV DNA RESULT Not detected Normal Not Detected [facility] Comment on above: Order Comment: Repor table range: 21.5-100,000,000 IU/mLThe sophie BKV is an in vitro nucleic acid amplification test for the quantitation of BK virus (BKV) DNA in human EDTA plasma on the sophie 6800/8800 Systems. The test employs a dual target virus specific approach from highly-conserved regions of the BKV located in the BKV small t-antigen region and the BKV VP2 region. The analytical quantification range of this assay has been determined to be 21.5 to 100,000,000 IU/ml in plasma.As with any molecular test, mutations within the target regions of sophie BKV could affect primer and/or probe binding resulting in the under-quantitation of virus or failure to detect the presence of virus.If the assay DETECTED the presence of the virus, but was not able to accurately quantify the number of copies, the test result will be reported as <21.5 Detected or >100,000,000 Detected.The sophie BKV is intended for use as an aid in the management of BKV in transplant patients. In patients undergoing monitoring of BKV in EDTA plasma, serial DNA measurements can be used to indicate the need for potential treatment changes and to assess viral response to treatment. The results from sophie BKV are intended to be read and analyzed by a qualified licensed healthcare professional in conjunction with clinical signs and symptoms and relevant laboratory findings. Test results must not be the sole basis for patient management decisions.This test is approved by the US Food and Drug Administration, and its performance characteristics verified by the Molecular Diagnostic Laboratory, Department of Pathology, [facility]. Performed By: #### 3 2284-2 ####JASON Carrasquillo ([id number])[facility] ([facility])[address] [place] [address] Basic metabolic 2000 panelon 12-06-2024 Anion gap [Moles/Vol] 14 mmol/L 10 - 20 mmol/L [facility] Calcium [Mass/Vol] 9.1 mg/dL 8.6 - 10. 3 mg/dL [facility] Chloride [Moles/Vol] 111 mmol/L High 98 - 10 7 mmol/L [facility] CO2 [Moles/Vol] 16 mmol/L Low 21 - 32 mmol/L [facility] Creatinine [Mass/Vol] 3.64 mg/dL High 0.50 - 1.30 mg/dL [facility] GFR/1.73 sq M.predicted among non-blacks MDRD (S/P/Bld) [Vol rate/Area] 19 mL/min/{1.73_m2} Low - PINF [facility] Comment on above: Calculations of cleopatra mated GFR are performed using the 2020 CKD-EPI Study Refit equation without the race variable for the IDMS-Traceable creatinine methods. https://jasn.asnjournals.org/content//ASN.352750 7390 Glucose [Mass/Vol] 362 mg/dL High 74 - 99 mg/dL [facility] Potassium [Moles/Vol] 7.2 mmol/L Critically high 3.5 - 5.3 mmol/L [facility] Sodium [Moles/Vol] 134 mmol/L Low 136 - 145 mmol/L [facility] Urea nitrogen [Mass/Vol] 95 mg/dL Critically high 6 - 23 mg/dL [facility] Anion gap [Moles/Vol] 14 mmol/L Normal 10-20 [facility] Comment on above: Performed By: #### 2 4321-2 #### TON MORAN ([id number]) [facility] ([facility]) [facility] [place] [address] Calcium [Mass/Vol] 9.1 mg/dL Normal 8.6-10.3 [facility] Comment on above: Performed By: #### 2 4321-2 #### TON MORAN ([id number]) [facility] ([facility]) [address] [place] [address] Chloride [Moles/Vol] 111 mmol/L High 98-[address] [facility] Comment on above: Performed By: #### 2 4321-2 #### TON MORAN ([id number]) [facility] ([facility]) [facility] [place] [address] CO2 [Moles/Vol] 16 mmol/L Low 21-32 [facility] Comment on above: Performed By: #### 2 4321-2 #### TON MORAN ([id number]) [facility] ([facility]) [address] [place] [address] Creatinine [Mass/Vol] 3.64 mg/dL High 0.50-1.30 [facility] Comment on above: Performed By: #### 2 4321-2 #### TON MORAN ([id number]) [facility] ([facility]) [address] [place] [address] 84961 Glomerular filtration rate/1.73 sq M.predicted 19 mL/min/1.73m*2 Low >60 [facility] Comment on above: Result Comment: Calc ulations of estimated GFR are performed using the 2020 CKD-EPI Study Refit equation without the race variable for the IDMS-Traceable creatinine methods. https://jasn.asnjournals.org/content/early//ASN.757520 5509 Performed By: #### 2 4321-2 #### TON MORAN ([id number]) [facility] ([facility]) [address] [place] [address] 39427 Glucose [Mass/Vol] 362 mg/dL High 74-99 [facility] Comment on above: Performed By: #### 2 4321-2 #### TON MORAN ([id number]) [facility] ([facility]) [address] [place] [address] 26495 Potassium [Moles/Vol] 7.2 mmol/L Critically high 3.5-5.3 [facility] Comment on above: Performed By: #### 2 4321-2 #### TON MORAN ([id number]) [facility] ([facility]) [address] [place] [address] 12861 Sodium [Moles/Vol] 134 mmol/L Low 136-145 [facility] Comment on above: Performed By: #### 2 4321-2 #### TON MORAN ([id number]) [facility] ([facility]) [address] [place] [address] 21486 Urea nitrogen [Mass/Vol] 95 mg/dL Critically high 6-23 [facility] Comment on above: Performed By: #### 2 4321-2 #### TON MORAN ([id number]) [facility] ([facility]) [address] [place] [address] 60044 CBC W Auto Differential pane l (Bld)on 12-06-2024 Basophils (Bld) [#/Vol] 0.01 10*3/uL [facility] Basophils/100 WBC (Bld) 0.1 % 0.0 - 2.0 % [facility] Eosinophils (Bld) [#/Vol] 0.02 10*3/uL [facility] Eosinophils/100 WBC (Bld) 0.3 % 0.0 - 6.0 % [facility] Erythrocyte distribution width (RBC) [Ratio] 18.6 % High 11.5 - 14.5 % [facility] Hematocrit (Bld) [Volume fraction] 25.5 % Low 41.0 - 52.0 % [facility] Hemoglobin (Bld) [Mass/Vol] 7.9 g/dL Low 13.5 - 17.5 g/dL [facility] Immature granulocytes (Bld) [#/Vol] 0.05 10*3/uL [facility] Immature granulocytes/100 WBC (Bld) 0.6 % 0.0 - 0.9 % [facility] Comment on above: Immature Granulocyte Count (IG) includes promyelocytes, myelocytes and metamyelocytes but does not include bands. Percent differential counts (%) should be interpreted in the context of the absolute cell counts (cells/UL). Interpretation and review of laboratory results Abnormal [facility] Lymphocytes (Bld) [#/Vol] 0.29 10*3/uL Low [facility] Lymphocytes/100 WBC (Bld) 3.6 % 13.0 - 44.0 % [facility] MCH (RBC) [Entitic mass] 24.6 pg Low 26.0 - 34.[address] [facility] MCHC (RBC) [Mass/Vol] 31 g/dL Low 32.0 - 36.0 g/dL [facility] MCV (RBC) [Entitic vol] 79 fL Low 80 - [address] [facility] Monocytes (Bld) [#/Vol] 0.13 10*3/uL [facility] Monocytes/100 WBC (Bld) 1.6 % 2.0 - 10.0 % [facility] Neutrophils (Bld) [#/Vol] 7.47 10*3/uL [facility] Comment on above: Percent differential counts (%) should be interpreted in the context of the absolute cell counts (cells/uL). Neutrophils/100 WBC (Bld) 93.8 % 40.0 - 80.0 % [facility] Nucleated RBC/100 WBC (Bld) [Ratio] 0 % [facility] Platelets (Bld) [#/Vol] 112 10*3/uL Low [facility] RBC (Bld) [#/Vol] 3.21 10*6/uL [facility] WBC (Bld) [#/Vol] 8 10*3/uL [facility] Basophils (Bld) [#/Vol] 0.01 x10*3/uL Normal 0.00-0.10 [facility] Comment on above: Performed By: #### 5 7021-8 #### TON MORAN ([id number]) [facility] ([facility]) [address] [place] [address] 86079 Basophils/100 WBC (Bld) 0.1 % Normal 0.0-2.0 [facility] Comment on above: Performed By: #### 5 7021-8 #### TON MORAN ([id number]) [facility] ([facility]) [address] [place] [address] 08285 Eosinophils (Bld) [#/Vol] 0.02 x10*3/uL Normal 0.00-0.70 [facility] Comment on above: Performed By: #### 5 7021-8 #### TON MORAN ([id number]) [facility] ([facility]) [address] [place] [address] 39779 Eosinophils/100 WBC (Bld) 0.3 % Normal 0.0-6.0 [facility] Comment on above: Performed By: #### 5 7021-8 #### TON MORAN ([id number]) [facility] ([facility]) [address] [place] [address] 72964 Erythrocyte distribution width (RBC) [Ratio] 18.6 % High 11.5-14.5 [facility] Comment on above: Performed By: #### 5 7021-8 #### TON MORAN ([id number]) [facility] ([facility]) [address] [place] [address] 42095 Hematocrit (Bld) [Volume fraction] 25.5 % Low 41.0-52.0 [facility] Comment on above: Performed By: #### 5 7021-8 #### TON MORAN ([id number]) [facility] ([facility]) [address] [place] [address] 15449 Hemoglobin (Bld) [Mass/Vol] 7.9 g/dL Low 13.5-17.5 [facility] Comment on above: Performed By: #### 5 7021-8 #### TON MORAN ([id number]) [facility] ([facility]) [address] [place] [address] 73315 Immature granulocytes (Bld) [#/Vol] 0.05 x10*3/uL Normal 0.00-0.70 [facility] Comment on above: Performed By: #### 5 7021-8 #### TON MORAN ([id number]) [facility] ([facility]) [address] [place] [address] 13998 Immature granulocytes/100 WBC (Bld) 0.6 % Normal 0.0-0.9 [facility] Comment on above: Result Comment: Shantell ture Granulocyte Count (IG) includes promyelocytes, myelocytes and metamyelocytes but does not include bands. Percent differential counts (%) should be interpreted in the context of the absolute cell counts (cells/UL). Performed By: #### 5 7021-8 #### TON MORAN ([id number]) [facility] ([facility]) [address] [place] [address] 91734 Lymphocytes (Bld) [#/Vol] 0.29 x10*3/uL Low 1.20-4.80 [facility] Comment on above: Performed By: #### 5 7021-8 #### TON MORAN ([id number]) [facility] ([facility]) [address] [place] [address] 37661 Lymphocytes/100 WBC (Bld) 3.6 % Normal 13.0-44.0 [facility] Comment on above: Performed By: #### 5 7021-8 #### TON MORAN ([id number]) [facility] ([facility]) [address] [place] [address] 58682 MCH (RBC) [Entitic mass] 24.6 pg Low 26.0-34.0 [facility] Comment on above: Performed By: #### 5 7021-8 #### TON MORAN ([id number]) [facility] ([facility]) [address] [place] [address] 89403 MCHC (RBC) [Mass/Vol] 31.0 g/dL Low 32.0-36.0 [facility] Comment on above: Performed By: #### 5 7021-8 #### TON MORAN ([id number]) [facility] ([facility]) [address] [place] [address] 70892 MCV (RBC) [Entitic vol] 79 fL Low 80-100 [facility] Comment on above: Performed By: #### 5 7021-8 #### TON MORAN ([id number]) [facility] ([facility]) [address] [place] [address] 89097 Monocytes (Bld) [#/Vol] 0.13 x10*3/uL Normal 0.10-1.00 [facility] Comment on above: Performed By: #### 5 7021-8 #### TON MORAN ([id number]) [facility] ([facility]) [address] [place] [address] 92257 Monocytes/100 WBC (Bld) 1.6 % Normal 2.0-10.0 [facility] Comment on above: Performed By: #### 5 7021-8 #### TON MORAN ([id number]) [facility] ([facility]) [address] [place] [address] 88940 Neutrophils (Bld) [#/Vol] 7.47 x10*3/uL Normal 1.20-7.70 [facility] Comment on above: Result Comment: Perc ent differential counts (%) should be interpreted in the context of the absolute cell counts (cells/uL). Performed By: #### 5 7021-8 #### TON MORAN ([id number]) [facility] ([facility]) [address] [place] [address] 31539 Neutrophils/100 WBC (Bld) 93.8 % Normal 40.0-80.0 [facility] Comment on above: Performed By: #### 5 7021-8 #### TON MORAN ([id number]) [facility] ([facility]) [address] [place] [address] 29205 Nucleated RBC/100 WBC (Bld) [Ratio] 0.0 /100 WBCs Normal 0.0-0.0 [facility] Comment on above: Performed By: #### 5 7021-8 #### TON MORAN ([id number]) [facility] ([facility]) [address] [place] [address] 54697 Platelets (Bld) [#/Vol] 112 x10*3/uL Low 150-450 [facility] Comment on above: Performed By: #### 5 7021-8 #### TON MORAN ([id number]) [facility] ([facility]) [address] [place] [address] 60066 RBC (Bld) [#/Vol] 3.21 x10*6/uL Low 4.50-5.[address] [facility] Comment on above: Performed By: #### 5 7021-8 #### TON MORAN ([id number]) [facility] ([facility]) [address] [place] [address] 62492 WBC (Bld) [#/Vol] 8.0 x10*3/uL Normal 4.4-11.3 [facility] Comment on above: Performed By: #### 5 7021-8 #### TON MORAN (31008) [facility] ([facility]) [address] [place] [address] 60726 CBC panel Auto (Bld)on 12-06 Erythrocyte distribution width (RBC) [Ratio] 18.6 % High 11.5-14.5 [facility] Comment on above: Performed By: #### 5 8410-2 ####TON MORAN ([id number])[facility] ([facility])[address] [place] [address] 90272 Hematocrit (Bld) [Volume fraction] 26.0 % Low 41.0-52.0 [facility] Comment on above: Performed By: #### 5 8410-2 ####TON MORAN ([id number])[facility] ([facility])[address] [place] [address] 25407 Hemoglobin (Bld) [Mass/Vol] 7.8 g/dL Low 13.5-17.5 [facility] Comment on above: Performed By: #### 5 8410-2 ####TON MORAN ([id number])[facility] ([facility])[address] [place] [address] 05758 MCH (RBC) [Entitic mass] 24.8 pg Low 26.0-34.0 [facility] Comment on above: Performed By: #### 5 8410-2 ####TON MORAN ([id number])[facility] ([facility])[address] [place] [address] 60070 MCHC (RBC) [Mass/Vol] 30.0 g/dL Low 32.0-36.0 [facility] Comment on above: Performed By: #### 5 8410-2 ####TON MORAN ([id number])[facility] ([facility])[address] [place] [address] 60842 MCV (RBC) [Entitic vol] 83 fL Normal 80-100 [facility] Comment on above: Performed By: #### 5 8410-2 ####TON MORAN ([id number])[facility] ([facility])[address] [place] [address] 98036 Nucleated RBC/100 WBC (Bld) [Ratio] 0.0 /100 WBCs Normal 0.0-0.0 [facility] Comment on above: Performed By: #### 5 8410-2 ####TON MORAN ([id number])[facility] ([facility])[address] [place] [address] 39001 Platelets (Bld) [#/Vol] 116 x10*3/uL Low 150-450 [facility] Comment on above: Performed By: #### 5 8410-2 ####TON MORAN ([id number])[facility] ([facility])[address] [place] [address] 37307 RBC (Bld) [#/Vol] 3.14 x10*6/uL Low 4.50-5.90 [facility] Comment on above: Performed By: #### 5 8410-2 ####TON MORAN ([id number])[facility] ([facility])[address] [place] [address] 40223 WBC (Bld) [#/Vol] 5.9 x10*3/uL Normal 4.4-11.3 [facility] Comment on above: Performed By: #### 5 8410-2 ####TON MORAN ([id number])[facility] ([facility])[address] [place] [address] 83435 CMV DNA SAQIB+probe Qn (P)on 0 12-06-2024 CMV DNA RESULT Not detected Normal Not Detected [facility] Comment on above: Order Comment: Repor table Range: 35-10,000,000 IU/mL.The sophie CMV test is an in vitro nucleic acid amplification test for the quantitation of Cytomegalovirus (CMV) DNA in human EDTA plasma on the sophie 6800/8800 Systems. The analytical quantification range of this assay has been determined to be 35 to 10,000,000 IU/ml in plasma.Mutations within the highly-conserved regions of the CMV DNA polymerase (UL54) gene covered by sophie CMV may affect primers and/or probe binding resulting in the under-quantitation of virus or failure to detect the presence of virus. The sophie CMV mitigates this risk through the use of redundant amplification primers. Negative test results do not preclude CMV infection or tissue-invasive CMV disease, and test results should therefore not be the sole basis for patient management decisionsIf the assay DETECTED the presence of the virus but was not able to accurately quantify the number of copies, the test result will be reported as <35 Detected or >10,000,000 Detected.The sophie CMV is intended for use as an aid in the management of CMV in solid organ transplant patients and in hematopoietic stem cell transplant patients. In patients receiving anti-CMV therapy, serial DNA measurements can be used to assess viral response to treatment. The results from sophie CMV must beinterpreted within the context of all relevant clinical and laboratory findings.This test is approved by the [place] Food and Drug Administration, and its performance characteristics verified by the Molecular Diagnostic Laboratory, Department of Pathology, [facility]. Performed By: #### 7 2493-0 ####JASON Carrasquillo ([id number])[facility] ([facility])[address] [place] [address] CYTOMEGALOVIRUS DNA, PCR LOG IU/ML Normal [facility] Comment on above: Order Comment: Repor table Range: 35-10,000,000 IU/mL.The sophie CMV test is an in vitro nucleic acid amplification test for the quantitation of Cytomegalovirus (CMV) DNA in human EDTA plasma on the sophie [employer]0/8800 Systems. The analytical quantification range of this assay has been determined to be 35 to 10,000,000 IU/ml in plasma.Mutations within the highly-conserved regions of the CMV DNA polymerase (UL54) gene covered by sophie CMV may affect primers and/or probe binding resulting in the under-quantitation of virus or failure to detect the presence of virus. The sophie CMV mitigates this risk through the use of redundant amplification primers. Negative test results do not preclude CMV infection or tissue-invasive CMV disease, and test results should therefore not be the sole basis for patient management decisionsIf the assay DETECTED the presence of the virus but was not able to accurately quantify the number of copies, the test result will be reported as <35 Detected or >10,000,000 Detected.The sophie CMV is intended for use as an aid in the management of CMV in solid organ transplant patients and in hematopoietic stem cell transplant patients. In patients receiving anti-CMV therapy, serial DNA measurements can be used to assess viral response to treatment. The results from sophie CMV must beinterpreted within the context of all relevant clinical and laboratory findings.This test is approved by the US Food and Drug Administration, and its performance characteristics verified by the Molecular Diagnostic Laboratory, Department of Pathology, [facility]. Result Comment: Not calculated Performed By: #### 7 2493-0 ####JASON Carrasquillo ([id number])[facility] ([facility])[address] [place] [address] Barrett 12-06-2024 CNPN Telephone (FAMPWS) -------- CHAPINTHOM NORRIS ([id number]) 1970 M Date Time Provider Department 12/06/24 RON CORONADO During your visit today, we recorded the following information about you: Pamella Rojas RN 12/06/2024 10:55 AM Signed Cece Puri with [facility] with [facility] called in and reports Pt used transportation services to get to his dialysis appraisements. She states the Pt's is out of rides and will be needing them coming up soon. She is asking if the provider will put in a PA for the Pt to get more transportation, and ron it urgent as he needs it soon. She reports the provider services phone # is . She is asking that the providers office call the Pt to let him know as well because he needs the rides to get to his dialysis. NO Hatch Mark D, MD 12/06/2024 1:30 PM Signed OK to do whatever is needed to get him the transportation MD [employer] Tyler Kathryn, MA 12/06/2024 3:09 PM Signed Called for PA at number below, that number does not handle transportation issues. Need to call [phone]. They do not have transportation services for this pt, the Medicare ID number does not show an account for him. Called pt to notify him of this. His ID# [id number] Still unable to get any assistance, no account on file with id number, address or phone number. Tried to call Cece Wong at [phone] but that number just disconnects. Penny Candelario MA Allergies As of Date: 12/06/2024 (No Known Allergies) Date Reviewed: 06/22/2024 Reviewed by: Penny Candelario MA - Fully Assessed Reason for Visit: Prior Authorization for Transportation [Other] Prescriptions as of 12/06/2024 - atorvastatin (LIPITOR) 40 mg tablet Take 1 tablet by mouth daily at bedtime. For cholesterol. - magnesium oxide (MAG-OX) 400 mg (241.3 mg magnesium) tablet Take 1 tablet by mouth two times a day. - hydrALAZINE (APRESOLINE) 100 mg tablet Take 1 tablet by mouth three times a day. - sevelamer carbonate (RENVELA) 800 mg tablet Take 1 tablet by mouth three times a day with meals. - metoprolol tartrate, short acting, (LOPRESSOR) 25 mg tablet Take 1 tablet by mouth two times a day. - Insulin Clio, Disposable, (PEN NEEDLE) 32 gauge x 5/32 Give with each insulin administration once in the am and once in the pm - insulin glargine (BASAGLAR KWIKPEN U-100 INSULIN) 100 unit/mL (3 mL) Inject 14 Units subcutaneously every 24 hours. - sildenafil (VIAGRA) 50 mg tablet Take 1 tablet by mouth as needed. Take one hour prior to sexual activity - Insulin Clio, Disposable, (PEN NEEDLE) 32 gauge x 5/32 Inject 1 Each subcutaneously every 24 hours. Give with each insulin administration. - Insulin Clio, Disposable, (UNIFINE PENTIPS PLUS) 31 gauge x 3/16 USE TWICE DAILY DIRECTED FOR INSULIN - Blood-Glucose Sensor (DEXCOM G6 SENSOR) latesha 10 Each as directed. Apply a new Dexcom G 6 Sensor after 10 days of use. - COMBIGAN 0.2-0.5 % ophthalmic solution Instill 1 drop in both eyes twice a day - timoloL maleate (TIMOPTIC) 0.5 % ophthalmic solution Use 1 Drop in both eyes twice daily. - losartan (COZAAR) 50 mg tablet Take 1 tablet by mouth once daily. - aspirin 81 mg chewable tablet Take 1 tablet by mouth once daily. - NOVOFINE AUTOCOVER 30 gauge x 1/3 ndle - Insulin Syringe-Needle U-100 (BD LO-DOSE MICRO-FINE IV) 0.3 mL 28 x 1/2 syrg Inject 1 Each subcutaneously daily at bedtime. Inject once daily (for Lantus) Dx: Diabetes Type I with renal manifestations . 254.43 - glucagon, human recombinant, (GLUCAGON EMERGENCY) 1 mg injection 1 mg as needed. ADMINISTER FOR LOW BLOOD SUGAR - IF UNCONSCIOUS OR UNABLE TO SWALLOW Problem List As Of Date 12/06/2024 Noted Resolved Type 1 diabetes mellitus with chronic kidney di*01/21/2005 Essential hypertension [I10] 01/21/2005 GLAUCOMA NOS [H40.9] 01/21/2005 Sterilization [Z30.2] 02/05/2007 07/30/2019 HYPERLIPIDEMIA NEC/NOS [E78.5] 07/06/2008 ANEMIA NOS [D64.9] 09/27/2008 Diabetic Retinopathy [E11.319] 02/22/2010 Diabetic nephropathy (HCC) [E11.21] 02/22/2010 06/16/2019 Depression [F32.A] 06/20/2010 Type 1 diabetes mellitus with diabetic neuropat*11/20/2010 Ulcer of heel and midfoot (HCC) [L97.409] 11/20/2010 07/30/2019 History of osteomyelitis [Z87.39] 01/08/2011 Cellulitis and abscess of foot, except toes [L0*03/25/2011 07/30/2019 Ulcer of other part of foot [L97.509] 04/04/2011 07/30/2019 Gastro-esophageal reflux [K21.9] 04/23/2012 Sinus complaint [R09.89] 04/23/2012 06/16/2019 Alpha 0-thalassemia (HCC) [D56.0] 03/01/2014 ESRD (end stage renal disease) (HCC) [N18.6] 01/08/2016 S/P transmetatarsal amputation of foot, right (*08/17/2019 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*12/24/2022 Secondary hyperparathyroidism of renal origin (*12/24/2022 Encounter Status (more content not included)... Normal [facility] EBV DNA SAQIB+probe Qnon 12-06 EBV DNA RESULT Not detected Normal Not Detected [facility] Comment on above: Order Comment: Repor table Range: 35-100,000,000 IU/mL.The sophie EBV test is an in vitro nucleic acid amplification dual target assay for the quantitation of Joseluis-Argueta virus (EBV) DNA in human EDTA plasma on the sophie 6800/8800 Systems. The test employs a dual target virus specific approach from highly-conserved regions of the EBV located in the EBV EBNA-1gene and the EBV BMRF gene. The analytical quantification range of this assay has been determined to be 35 to 100,000,000 IU/ml in plasma.As with any molecular test, mutations within the target regions of sophie EBV could affect primer and/or probe binding resulting in the under-quantitation of virus or failure to detect the presence of virus.If the assay DETECTED the presence of the virus but was not able to accurately quantify the number of copies, the test result will be reported as <35 Detected or >100,000,000 Detected.The sophie EBV test is intended for use as an aid in the management of EBV in transplant patients. In patients undergoing monitoring of EBV, serial DNA measurements can be used to indicate the need for potential treatment changes and to assess response to treatment. The results from sophie EBV are intended to be read and analyzed by a qualified licensed healthcare professional in conjunction with clinical signs and symptoms and relevant laboratory findings. Negative test results do not preclude EBV infection or EBV disease. Test results must not be the sole basis for patient management decisions.This test is approved by the [place] Food and Drug Administration, and its performance characteristics verified by the [facility] Diagnostic Laboratory, Department of Pathology, [facility]. Performed By: #### 4 3730-1 ####JASON Carrasquillo ([id number])[facility] ([facility])[address] [place] [address] EBV PCR PLASMA LOG IU/ML Normal [facility] Comment on above: Order Comment: Repor table Range: 35-100,000,000 IU/mL.The sophie EBV test is an in vitro nucleic acid amplification dual target assay for the quantitation of Joseluis-Argueta virus (EBV) DNA in human EDTA plasma on the sophie 6800/8800 Systems. The test employs a dual target virus specific approach from highly-conserved regions of the EBV located in the EBV EBNA-1gene and the EBV BMRF gene. The analytical quantification range of this assay has been determined to be 35 to 100,000,000 IU/ml in plasma.As with any molecular test, mutations within the target regions of sophie EBV could affect primer and/or probe binding resulting in the under-quantitation of virus or failure to detect the presence of virus.If the assay DETECTED the presence of the virus but was not able to accurately quantify the number of copies, the test result will be reported as <35 Detected or >100,000,000 Detected.The sophie EBV test is intended for use as an aid in the management of EBV in transplant patients. In patients undergoing monitoring of EBV, serial DNA measurements can be used to indicate the need for potential treatment changes and to assess response to treatment. The results from sophie EBV are intended to be read and analyzed by a qualified licensed healthcare professional in conjunction with clinical signs and symptoms and relevant laboratory findings. Negative test results do not preclude EBV infection or EBV disease. Test results must not be the sole basis for patient management decisions.This test is approved by the [place] Food and Drug Administration, and its performance characteristics verified by the [facility] Diagnostic [facility], Department of Pathology, [facility]. Result Comment: Not calculated Performed By: #### 4 3730-1 ####JASON Carrasquillo ([id number])[facility] ([facility])[address] [place] [address] ECG 12-LEADon 12-06-2024 ECG 12-LEAD Ventricular Rate 75 Atrial Rate 75 P-R Interval 178 QRS Duration 76 Q-T Interval 382 QTC Calculation(Bazett) 426 P [place] 74 R [place] -4 T [place] 68 QRS Count 12 Q Onset 226 P Onset 137 P Offset 194 T Offset 417 QTC Fredericia 411 Diagnosis Normal sinus rhythm Anteroseptal infarct (cited on or before 06-DEC-2024) ACUTE CA / STEMI Abnormal ECG When compared with ECG of 06-DEC-2024 17:08, (unconfirmed) Premature atrial complexes are no longer Present See ED provider note for full interpretation and clinical correlation Confirmed by Lisa Mena ([id number]) on 12/11/2024 2:27:[address] [facility] ECG 12-LEAD Ventricular Rate 79 Atrial Rate 79 P-R Interval 184 QRS Duration 86 Q-T Interval 378 QTC Calculation(Bazett) 433 P [place] 71 R [place] 258 T [place] 66 QRS Count 13 Q Onset 226 P Onset 134 P Offset 185 T Offset 415 QTC Fredericia 414 Diagnosis Sinus rhythm with Premature atrial complexes in a pattern of bigeminy Indeterminate axis Anteroseptal infarct (cited on or before 06-DEC-2024) ACUTE CA / STEMI Abnormal ECG When compared with ECG of 06-DEC-2024 17:08, (unconfirmed) Previous ECG has undetermined rhythm, needs review Serial changes of evolving Anteroseptal infarct Present See ED provider note for full interpretation and clinical correlation Confirmed by Lisa Mena ([id number]) on 12/11/2024 2:26:[address] [facility] Glucose Test strip manual (B ld) [Mass/Vol]on 12-06-2024 Glucose [Mass/Vol] 288 mg/dL High 74 - 99 mg/dL [facility] Interpretation and review of laboratory results Abnormal [facility] Glucose [Mass/Vol] 288 mg/dL High 74-99 [facility] Comment on above: Performed By: #### 2 341-6 ####JASON Carrasquillo ([id number])[facility] ([facility])[address] [place] [address] 64796 Glucose [Mass/Vol] 277 mg/dL High 74 - 99 mg/dL [facility] Interpretation and review of laboratory results Abnormal [facility] Glucose [Mass/Vol] 277 mg/dL High 74-99 [facility] Comment on above: Performed By: #### 2 341-6 #### TON MORAN ([id number]) [facility] ([facility]) [address] [place] [address] 16358 Magnesiumon 12-06-2024 Magnesium [Mass/Vol] 1.79 mg/dL 1.60 - 2.40 mg/dL [facility] Magnesium [Mass/Vol] 1.79 mg/dL Normal 1.60-2.[address] [facility] Comment on above: Performed By: #### 1 9123-9 #### TON MORAN ([id number]) [facility] ([facility]) [address] [place] [address] 12387 Magnesium [Mass/Vol] 1.85 mg/dL Normal 1.60-2.40 [facility] Comment on above: Performed By: #### 1 9123-9 ####TON MORAN ([id number])[facility] ([facility])[address] [place] [address] 76630 Magnesium [Mass/Vol]on 12-06 Interpretation and review of laboratory results Normal [facility] No Panel Informationon 12-06 Interpretation and review of laboratory results Abnormal [facility] Phosphateon 12-06-2024 Phosphate [Mass/Vol] 5.9 mg/dL High 2.5-4.[address] [facility] Comment on above: Performed By: #### 2 777-1 #### TON MORAN ([id number]) [facility] ([facility]) [address] [place] [address] 38816 Phosphoruson 12-06-2024 Phosphate [Mass/Vol] 5.9 mg/dL High 2.5 - 4 .9 mg/dL [facility] Potassiumon 12-06-2024 Potassium [Moles/Vol] 6.1 mmol/L Critically high 3.5 - 5.3 mmol/L [facility] Potassium [Moles/Vol] 6.1 mmol/L Critically high 3.5-5.3 [facility] Comment on above: Performed By: #### 2 823-3 #### TON MORAN ([id number]) [facility] ([facility]) [address] [place] [address] 56301 Potassium [Moles/Vol]on 11-09 Interpretation and review of laboratory results Abnormal [facility] Proteinon 12-06-2024 Protein Qn (U) 24 mg/dL Normal 5-25 [facility] Comment on above: Performed By: #### 2 7298-9 ####TON MORAN ([id number])[facility] ([facility])[address] [place] [address] 17715 Protein Qn (U)on 12-06-2024 Creatinine (U) [Mass/Vol] 56.0 mg/dL Normal 20.0-370.0 [facility] Comment on above: Performed By: #### 2 7298-9 ####TON MORAN ([id number])[facility] ([facility])[address] [place] [address] 99608 Protein/Creatinine (U) [Mass ratio] 0.43 mg/mg Creat High 0.00-0.17 [facility] Comment on above: Performed By: #### 2 7298-9 ####TON MORAN ([id number])[facility] ([facility])[address] [place] [address] 39606 Renal function 2000 panelon 12-06-2024 Albumin BCP dye [Mass/Vol] 3.6 g/dL Normal 3.4-5.0 [facility] Comment on above: Performed By: #### 2 4362-6 ####TON MORAN ([id number])[facility] ([facility])[address] [place] [address] 90831 Anion gap [Moles/Vol] 13 mmol/L Normal [facility] Comment on above: Performed By: #### 2 4362-6 ####TON MORAN ([id number])[facility] ([facility])[address] [place] [address] 74805 Calcium [Mass/Vol] 9.1 mg/dL Normal 8.6-10.3 [facility] Comment on above: Performed By: #### 2 4362-6 ####TON MORAN ([id number])[facility] ([facility])[address] [place] [address] 69118 Chloride [Moles/Vol] 114 mmol/L High 98-107 [facility] Comment on above: Performed By: #### 2 4362-6 ####TON MORAN ([id number])[facility] ([facility])[address] [place] [address] 67176 CO2 [Moles/Vol] 17 mmol/L Low 21-32 [facility] Comment on above: Performed By: #### 2 4362-6 ####TON MORAN ([id number])[facility] ([facility])[address] [place] [address] 47530 Creatinine [Mass/Vol] 3.66 mg/dL High 0.50-1.30 [facility] Comment on above: Performed By: #### 2 4362-6 ####TON MORAN ([id number])[facility] ([facility])[address] [place] [address] 20863 Glomerular filtration rate/1.73 sq M.predicted 19 mL/min/1.73m*2 Low >60 [facility] Comment on above: Result Comment: Calc ulations of estimated GFR are performed using the 2020 CKD-EPI Study Refit equation without the race variable for the IDMS-Traceable creatinine methods.https://jasn.asnjournals.org/content/early// N.9586569000 Performed By: #### 2 4362-6 ####TON MORAN ([id number])[facility] ([facility])[address] [place] [address] 82961 Glucose [Mass/Vol] 262 mg/dL High 74-99 [facility] Comment on above: Performed By: #### 2 436-6 ####TON MORAN ([id number])[facility] ([facility])[address] [place] [address] 71581 Phosphate [Mass/Vol] 5.6 mg/dL High 2.5-4.9 [facility] Comment on above: Performed By: #### 2 4362-6 ####TON MORAN ([id number])[facility] ([facility])[address] [place] [address] 22638 Potassium [Moles/Vol] 6.3 mmol/L Critically high 3.5-5.3 [facility] Comment on above: Result Comment: Conf irmed by repeat analysis Performed By: #### 2 4362-6 ####TON MORAN ([id number])[facility] ([facility])[address] [place] [address] 51942 Sodium [Moles/Vol] 138 mmol/L Normal 136-145 [facility] Comment on above: Performed By: #### 2 436-6 ####TON MORAN ([id number])[facility] ([facility])[address] [place] [address] 76911 Urea nitrogen [Mass/Vol] 90 mg/dL High 11-29 [facility] Comment on above: Performed By: #### 2 4362-6 ####TON MORAN ([id number])[facility] ([facility])[address] [place] [address] 00004 Tacrolimuson 12-06-2024 Tacrolimus (Bld) [Mass/Vol] ng/mL Normal <=15.0 [facility] Comment on above: Order Comment: NOTE: Result was obtained using achemiluminescent microparticle immunoassay(CMIA) on the [employer] i system.Optimal therapeutic ranges for immunosuppressantdrugs depend upon an individualpatient's current clinical state, type oforgan transplant, time post-transplant,co-administration of other immunosuppressants,and other clinical factors. The results ofthis test should be correlated with additionalclinical and laboratory data before changesin treatment regimens are made. Performed By: #### 1 1253-2 ####JASON Carrasquillo ([id number])[facility] ([facility])[address] [place] [address] CBC panel Auto (Bld)on 12-02 Erythrocyte distribution width (RBC) [Ratio] 17.3 % High 11.5-14.5 [facility] Comment on above: Performed By: #### 5 8410-2 ####TON MORAN ([id number])[facility] ([facility])[address] [place] [address] 99315 Hematocrit (Bld) [Volume fraction] 26.6 % Low 41.0-52.0 [facility] Comment on above: Performed By: #### 5 8410-2 ####TON MORAN ([id number])[facility] ([facility])[address] [place] [address] 61195 Hemoglobin (Bld) [Mass/Vol] 8.1 g/dL Low 13.5-17.5 [facility] Comment on above: Performed By: #### 5 8410-2 ####TON MORAN ([id number])[facility] ([facility])[address] [place] [address] 91468 MCH (RBC) [Entitic mass] 24.8 pg Low 26.0-34.0 [facility] Comment on above: Performed By: #### 5 8410-2 ####TON MORAN ([id number])[facility] ([facility])[address] [place] [address] 59195 MCHC (RBC) [Mass/Vol] 30.5 g/dL Low 32.0-36.0 [facility] Comment on above: Performed By: #### 5 8410-2 ####TON MORAN ([id number])[facility] ([facility])[address] [place], [place] [id number] MCV (RBC) [Entitic vol] 82 fL Normal 80-100 [facility] Comment on above: Performed By: #### 5 8410-2 ####TON MORAN ([id number])[facility] ([facility])[address] [place] [address] 13040 Nucleated RBC/100 WBC (Bld) [Ratio] 0.0 /100 WBCs Normal 0.0-0.0 [facility] Comment on above: Performed By: #### 5 8410-2 ####TON MORAN ([id number])[facility] ([facility])[address] [place] [address] 75554 Platelets (Bld) [#/Vol] 106 x10*3/uL Low 150-450 [facility] Comment on above: Performed By: #### 5 8410-2 ####TON MORAN ([id number])[facility] ([facility])[address] [place] [address] 12646 RBC (Bld) [#/Vol] 3.26 x10*6/uL Low 4.50-5.90 [facility] Comment on above: Performed By: #### 5 8410-2 ####TON MORAN ([id number])[facility] ([facility])[address] [place] [address] 48312 WBC (Bld) [#/Vol] 6.3 x10*3/uL Normal 4.4-11.3 [facility] Comment on above: Performed By: #### 5 8410-2 ####TON MORAN ([id number])[facility] ([facility])[address] [place] [address] 89640 Magnesiumon 12-02-2024 Magnesium [Mass/Vol] 1.86 mg/dL Normal 1.60-2.40 [facility] Comment on above: Performed By: #### 1 9123-9 ####TON MORAN ([id number])[facility] ([facility])[address] [place] [address] 45821 Renal function 2000 panelon 12-02-2024 Albumin BCP dye [Mass/Vol] 3.6 g/dL Normal 3.4-5.0 [facility] Comment on above: Performed By: #### 2 4362-6 ####TON MORAN ([id number])[facility] ([facility])[address] [place] [address] 98478 Anion gap [Moles/Vol] 13 mmol/L Normal [facility] Comment on above: Performed By: #### 2 4362-6 ####TON MORAN ([id number])[facility] ([facility])[address] [place] [address] 76193 Calcium [Mass/Vol] 8.7 mg/dL Normal 8.6-10.3 [facility] Comment on above: Performed By: #### 2 4362-6 ####TON MORAN ([id number])[facility] ([facility])[address] [place] [address] 55444 Chloride [Moles/Vol] 104 mmol/L Normal 98-107 [facility] Comment on above: Performed By: #### 2 4362-6 ####TON MORAN ([id number])[facility] ([facility])[address] [place] [address] 87120 CO2 [Moles/Vol] 25 mmol/L Normal 21-32 [facility] Comment on above: Performed By: #### 2 4362-6 ####TON MORAN ([id number])[facility] ([facility] [place] [address] Creatinine [Mass/Vol] 4.26 mg/dL High 0.50-1.30 [facility] Comment on above: Performed By: #### 2 4362-6 ####TON MORAN ([id number])[facility] ([facility])[address] [place] [address] 34133 Glomerular filtration rate/1.73 sq M.predicted 16 mL/min/1.73m*2 Low >60 [facility] Comment on above: Result Comment: Calc ulations of estimated GFR are performed using the 2020 CKD-EPI Study Refit equation without the race variable for the IDMS-Traceable creatinine methods.https://jasn.asnjournals.org/content/early// N.5568734594 Performed By: #### 2 4362-6 ####TON MORAN ([id number])[facility] ([facility])[address] [place] [address] 01898 Glucose [Mass/Vol] 316 mg/dL High 74-99 [facility] Comment on above: Performed By: #### 2 4362-6 ####TON MORAN ([id number])[facility] ([facility])[address] [place] [address] 74100 Phosphate [Mass/Vol] 5.0 mg/dL High 2.5-4.9 [facility] Comment on above: Result Comment: MILD HEMOLYSIS DETECTED. The result may be falsely elevated due to hemolysis or other interferents. Clinical correlation is recommended. Repeat testing may be considered. Performed By: #### 2 4362-6 ####TON MORAN ([id number])[facility] ([facility])[address] [place] [address] 10996 Potassium [Moles/Vol] 6.0 mmol/L High 3.5-5.3 [facility] Comment on above: Result Comment: MILD HEMOLYSIS DETECTED. The result may be falsely elevated due to hemolysis or other interferents. Clinical correlation is recommended. Repeat testing may be considered.Confirmed by repeat analysis Performed By: #### 2 4362-6 ####TON MORAN ([id number])[facility] ([facility])[address] [place] [address] 84673 Sodium [Moles/Vol] 136 mmol/L Normal 136-145 [facility] Comment on above: Performed By: #### 2 4362-6 ####TON MORAN ([id number])[facility] ([facility])[address] [place] [address] 87886 Urea nitrogen [Mass/Vol] 67 mg/dL High 6-23 [facility] Comment on above: Performed By: #### 2 4362-6 ####TON MORAN ([id number])[facility] ([facility])[address] [place] [address] 24227 Tacrolimuson 12-02-2024 Tacrolimus (Bld) [Mass/Vol] 5.2 ng/mL Normal <=15.0 [facility] Comment on above: Order Comment: NOTE: Result was obtained using achemiluminescent microparticle immunoassay(CMIA) on the [employer] system.Optimal therapeutic ranges for immunosuppressantdrugs depend upon an individualpatient's current clinical state, type oforgan transplant, time post-transplant,co-administration of other immunosuppressants,and other clinical factors. The results ofthis test should be correlated with additionalclinical and laboratory data before changesin treatment regimens are made. Performed By: #### 1 1253-2 ####JASON Carrasquillo ([id number])[facility] ([facility])[id number] [place] [address] CBC panel Auto (Bld)on 11-30 Erythrocyte distribution width (RBC) [Ratio] 17.1 % High 11.5 - 14.5 % [facility] Hematocrit (Bld) [Volume fraction] 24 % Low 41.0 - 52.0 % [facility] Hemoglobin (Bld) [Mass/Vol] 7.4 g/dL Low 13.5 - 17.5 g/dL [facility] Interpretation and review of laboratory results Abnormal [facility] MCH (RBC) [Entitic mass] 24.3 pg Low 26.0 - 34.[address] [facility] MCHC (RBC) [Mass/Vol] 30.8 g/dL Low 32.0 - 36.0 g/dL [facility] MCV (RBC) [Entitic vol] 79 fL Low 80 - [address] [facility] Nucleated RBC/100 WBC (Bld) [Ratio] 0 % [facility] Platelets (Bld) [#/Vol] 96 10*3/uL Low [facility] RBC (Bld) [#/Vol] 3.05 10*6/uL Low [facility] WBC (Bld) [#/Vol] 5.4 10*3/uL [facility] Erythrocyte distribution width (RBC) [Ratio] 17.1 % High 11.5-14.5 [facility] Comment on above: Order Comment: Befor e Hemodialysis Performed By: #### 5 8410-2 ####JASON Carrasquillo ([id number])[facility] ([facility])[id number] [place] [address] Hematocrit (Bld) [Volume fraction] 24.0 % Low 41.0-52.0 [facility] Comment on above: Order Comment: Befor e Hemodialysis Performed By: #### 5 8410-2 ####JASON Carrasquillo ([id number])[facility] ([facility])[address] [place] [address] Hemoglobin (Bld) [Mass/Vol] 7.4 g/dL Low 13.5-17.5 [facility] Comment on above: Order Comment: Befor e Hemodialysis Performed By: #### 5 8410-2 ####JASON Carrasquillo ([id number])[facility] ([facility])[address] [place] [address] MCH (RBC) [Entitic mass] 24.3 pg Low 26.0-34.0 [facility] Comment on above: Order Comment: Befor e Hemodialysis Performed By: #### 5 8410-2 ####JASON Carrasquillo ([id number])[facility] ([facility])[address] [place] [address] MCHC (RBC) [Mass/Vol] 30.8 g/dL Low 32.0-36.0 [facility] Comment on above: Order Comment: Befor e Hemodialysis Performed By: #### 5 8410-2 ####JASON Carrasquillo ([id number])[facility] ([facility])[address] [place] [address] MCV (RBC) [Entitic vol] 79 fL Low 80-100 [facility] Comment on above: Order Comment: Befor e Hemodialysis Performed By: #### 5 8410-2 ####JASON Carrasquillo ([id number])[facility] ([facility])[address] [place] [address] Nucleated RBC/100 WBC (Bld) [Ratio] 0.0 /100 WBCs Normal 0.0-0.0 [facility] Comment on above: Order Comment: Befor e Hemodialysis Performed By: #### 5 8410-2 ####JASON Carrasquillo ([id number])[facility] ([facility])[address] [place] [address] Platelets (Bld) [#/Vol] 96 x10*3/uL Low 150-450 [facility] Comment on above: Order Comment: Befor e Hemodialysis Performed By: #### 5 8410-2 ####JASON Carrasquillo ([id number])[facility] ([facility])[address] [place] [address] RBC (Bld) [#/Vol] 3.05 x10*6/uL Low 4.50-5.90 [facility] Comment on above: Order Comment: Befor e Hemodialysis Performed By: #### 5 8410-2 ####JASON Carrasquillo ([id number])[facility] ([facility])[address] [place] [address] WBC (Bld) [#/Vol] 5.4 x10*3/uL Normal 4.4-11.3 [facility] Comment on above: Order Comment: Befor e Hemodialysis Performed By: #### 5 8410-2 ####JASON Carrasquillo ([id number])[facility] ([facility])[address] [place] [address] Laboratory - Chemistry and C hemistry - challengeon 11-30-2024 Magnesium [Mass/Vol] 1.78 mg/dL 1.60 - 2.40 mg/dL [facility] Laboratory - Drug toxicology Ordered By: Anibal Sarkar on 11-30-2024 Tacrolimus (Bld) [Mass/Vol] 5.9 ng/mL NINF - 15.0 ng/mL [facility] Magnesiumon 11-30-2024 Magnesium [Mass/Vol] 1.78 mg/dL Normal 1.60-2.40 [facility] Comment on above: Order Comment: Befor e Hemodialysis Performed By: #### 1 9123-9 ####JASON Carrasquillo ([id number])[facility] ([facility])[address] [place] [address] Magnesium [Mass/Vol]on 11-30 Interpretation and review of laboratory results Normal [facility] No Panel Informationon 11-[address] [facility] Renal function 2000 panelon 11-30-2024 Albumin BCP dye [Mass/Vol] 3.2 g/dL Low 3.4 - 5.0 g/dL [facility] Anion gap [Moles/Vol] 16 mmol/L 10 - 20 mmol/L [facility] Calcium [Mass/Vol] 8.4 mg/dL Low 8.6 - 10. 6 mg/dL [facility] Chloride [Moles/Vol] 103 mmol/L 98 - 10 7 mmol/L [facility] CO2 [Moles/Vol] 20 mmol/L Low 21 - 32 mmol/L [facility] Creatinine [Mass/Vol] 4.47 mg/dL High 0.50 - 1.30 mg/dL [facility] GFR/1.73 sq M.predicted among non-blacks MDRD (S/P/Bld) [Vol rate/Area] 15 mL/min/{1.73_m2} Low - PINF [facility] Comment on above: Calculations of cleopatra mated GFR are performed using the 2020 CKD-EPI Study Refit equation without the race variable for the IDMS-Traceable creatinine methods. https://jasn.asnjournals.org/content//ASN.957345 4276 Glucose [Mass/Vol] 248 mg/dL High 74 - 99 mg/dL [facility] Interpretation and review of laboratory results Abnormal [facility] Phosphate [Mass/Vol] 4.2 mg/dL 2.5 - 4 .9 mg/dL [facility] Potassium [Moles/Vol] 4.4 mmol/L 3.5 - 5.3 mmol/L [facility] Sodium [Moles/Vol] 135 mmol/L Low 136 - 145 mmol/L [facility] Urea nitrogen [Mass/Vol] 83 mg/dL High 6 - 23 mg/dL [facility] Albumin BCP dye [Mass/Vol] 3.2 g/dL Low 3.4-5.0 [facility] Comment on above: Order Comment: Befor e Hemodialysis Performed By: #### 2 4362-6 ####JASON Carrasquillo ([id number])[facility] ([facility])[address] [place] [address] Anion gap [Moles/Vol] 16 mmol/L Normal 10-20 [facility] Comment on above: Order Comment: Befor e Hemodialysis Performed By: #### 2 4362-6 ####JASON Carrasquillo ([id number])[facility] ([facility])[address] [place] [address] Calcium [Mass/Vol] 8.4 mg/dL Low 8.6-10.6 [facility] Comment on above: Order Comment: Befor e Hemodialysis Performed By: #### 2 4362-6 ####JASON Carrasquillo ([id number])[facility] ([facility])[address] [place] [address] Chloride [Moles/Vol] 103 mmol/L Normal 98-107 [facility] Comment on above: Order Comment: Befor e Hemodialysis Performed By: #### 2 4362-6 ####JASON Carrasquillo ([id number])[facility] ([facility])[address] [place] [address] CO2 [Moles/Vol] 20 mmol/L Low 21-32 [facility] Comment on above: Order Comment: Befor e Hemodialysis Performed By: #### 2 4362-6 ####JASON Carrasquillo ([id number])[facility] ([facility])[address] [place] [address] Creatinine [Mass/Vol] 4.47 mg/dL High 0.50-1.30 [facility] Comment on above: Order Comment: Befor e Hemodialysis Performed By: #### 2 4362-6 ####JASON Carrasquillo ([id number])[facility] ([facility])[address] [place] [address] Glomerular filtration rate/1.73 sq M.predicted 15 mL/min/1.73m*2 Low >60 [facility] Comment on above: Order Comment: Befor e Hemodialysis Result Comment: Calc ulations of estimated GFR are performed using the 2020 CKD-EPI Study Refit equation without the race variable for the IDMS-Traceable creatinine methods.https://jasn.asnjournals.org/content/early/ N.2751786558 Performed By: #### 2 4362-6 ####JASON Carrasquillo ([id number])[facility] ([facility])[address] [place] [address] Glucose [Mass/Vol] 248 mg/dL High 74-99 [facility] Comment on above: Order Comment: Befor e Hemodialysis Performed By: #### 2 4362-6 ####JASON Carrasquillo ([id number])[facility] ([facility])[address] [place] [address] Phosphate [Mass/Vol] 4.2 mg/dL Normal 2.5-4.9 [facility] Comment on above: Order Comment: Befor e Hemodialysis Performed By: #### 2 4362-6 ####JASON Carrasquillo ([id number])[facility] ([facility])[address] [place] [address] Potassium [Moles/Vol] 4.4 mmol/L Normal 3.5-5.3 [facility] Comment on above: Order Comment: Befor e Hemodialysis Performed By: #### 2 4362-6 ####JASON Carrasquillo ([id number])[facility] ([facility])[address] [place] [address] Sodium [Moles/Vol] 135 mmol/L Low 136-145 [facility] Comment on above: Order Comment: Befor e Hemodialysis Performed By: #### 2 4362-6 ####JASON Carrasquillo ([id number])[facility] ([facility])[address] [place] [address] Urea nitrogen [Mass/Vol] 83 mg/dL High 6-23 [facility] Comment on above: Order Comment: Befor e Hemodialysis Performed By: #### 2 4362-6 ####JASON Carrasquillo ([id number])[facility] ([facility])[address] [place] [address] Tacrolimuson 11-30-2024 Tacrolimus (Bld) [Mass/Vol] 5.9 ng/mL Normal <=15.0 [facility] Comment on above: Order Comment: Befor e HemodialysisNOTE: Result was obtained using achemiluminescent microparticle immunoassay(CMIA) on the [employer] system.Optimal therapeutic ranges for immunosuppressantdrugs depend upon an individualpatient's current clinical state, type oforgan transplant, time post-transplant,co-administration of other immunosuppressants,and other clinical factors. The results ofthis test should be correlated with additionalclinical and laboratory data before changesin treatment regimens are made. Performed By: #### 1 1253-2 ####JASON Carrasquillo ([id number])[facility] ([facility])[address] [place] [address] Tacrolimus (Bld) [Mass/Vol]O rdered By: Anibal Sarkar on 11-30-2024 Interpretation and review of laboratory results Normal [facility] NOTE: Result was obtained using a chemiluminescent microparticle immunoassay (CMIA) on the [employer] i system. Optimal therapeutic ranges for immunosuppressant drugs depend upon an individual patient's current clinical state, type of organ transplant, time post-transplant, co-administration of other immunosuppressants, and other clinical factors. The results of this test should be correlated with additional clinical and laboratory data before changes in treatment regimens are made. [facility] CBC panel Auto (Bld)on 11-29 Erythrocyte distribution width (RBC) [Ratio] 16.9 % High 11.5-14.5 [facility] Comment on above: Performed By: #### 5 8410-2 ####JASON Carrasquillo ([id number])[facility] ([facility])[address] [place] [address] Hematocrit (Bld) [Volume fraction] 26.4 % Low 41.0-52.0 [facility] Comment on above: Performed By: #### 5 8410-2 ####JASON CLARKMOZAY L ([id number])[facility] ([facility])[address] [place] [address] Hemoglobin (Bld) [Mass/Vol] 8.4 g/dL Low 13.5-17.5 [facility] Comment on above: Performed By: #### 5 8410-2 ####JASON CLARKMOZAY L ([id number])[facility] ([facility])[address] [place] [address] MCH (RBC) [Entitic mass] 25.1 pg Low 26.0-34.0 [facility] Comment on above: Performed By: #### 5 8410-2 ####JASON CLARKMOTZGREG L ([id number])[facility] ([facility])[address] [place] [address] MCHC (RBC) [Mass/Vol] 31.8 g/dL Low 32.0-36.0 [facility] Comment on above: Performed By: #### 5 8410-2 ####JASON CLARKMOTZER L ([id number])[facility] ([facility])[address] [place] [address] MCV (RBC) [Entitic vol] 79 fL Low 80-100 [facility] Comment on above: Performed By: #### 5 8410-2 ####JASON Carrasquillo ([id number])[facility] ([facility])[address] [place] [address] Nucleated RBC/100 WBC (Bld) [Ratio] 0.0 /100 WBCs Normal 0.0-0.0 [facility] Comment on above: Performed By: #### 5 8410-2 ####JASON Carrasquillo ([id number])[facility] ([facility])[address] [place] [address] Platelets (Bld) [#/Vol] 121 x10*3/uL Low 150-450 [facility] Comment on above: Performed By: #### 5 8410-2 ####JASON Carrasquillo ([id number])[facility] ([facility])[address] [place] [address] RBC (Bld) [#/Vol] 3.35 x10*6/uL Low 4.50-5.90 [facility] Comment on above: Performed By: #### 5 8410-2 ####JASON Carrasquillo ([id number])[facility] ([facility])[address] [place] [address] WBC (Bld) [#/Vol] 5.9 x10*3/uL Normal 4.4-11.3 [facility] Comment on above: Performed By: #### 5 8410-2 ####JASON Carrasquillo ([id number])[facility] ([facility])[address] [place] [address] HIV 1 RNAon 11-29-2024 HIV 1 RNA Probe amp Ql (S/P donor) Comment Normal Non Reactive [facility] Comment on above: Order Comment: Perfo rmed at: 01 - [facility] [id number] [facility] Room [address] [place] [address] [id number] Director: [facility], Phone: [phone] Result Comment: Non- Reactive for HIV RNA Non-Reactive for HCV RNA Non-Reactive for HBV DNATest performed with [employer] Ultrio Elite Assay Kit. Performed By: #### 4 7359-5 ####CHITRA ALLISON) ([id number])[address] [place] [address] Magnesiumon 11-29-2024 Magnesium [Mass/Vol] 1.91 mg/dL Normal 1.60-2.40 [facility] Comment on above: Performed By: #### 1 9123-9 ####JASON Carrasquillo ([id number])[facility] ([facility])[address] [place] [address] PT and aPTT panel Coag (PPP) on 11-29-2024 aPTT Coag (PPP) [Time] 25 s Low 26-36 [facility] Comment on above: Order Comment: The A PTT is no longer used for monitoring Unfractionated Heparin Therapy. For monitoring Heparin Therapy, use the Heparin Assay. Performed By: #### 3 4529-8 ####JASON Carrasquillo ([id number])[facility] ([facility])[address] [place] [address] INR Coag (PPP) [Relative time] 1.0 Normal 0.9-1.1 [facility] Comment on above: Order Comment: The A PTT is no longer used for monitoring Unfractionated Heparin Therapy. For monitoring Heparin Therapy, use the Heparin Assay. Performed By: #### 3 4529-8 ####JASON Carrasquillo ([id number])[facility] ([facility])[address] [place] [address] PT Coag (PPP) [Time] 11.4 s Normal 9.8-12.4 [facility] Comment on above: Order Comment: The A PTT is no longer used for monitoring Unfractionated Heparin Therapy. For monitoring Heparin Therapy, use the Heparin Assay. Performed By: #### 3 4529-8 ####JASON Carrasquillo ([id number])[facility] ([facility])[address] [place] [address] Renal function 2000 panelon 11-29-2024 Albumin BCP dye [Mass/Vol] 3.5 g/dL Normal 3.4-5.0 [facility] Comment on above: Performed By: #### 2 4362-6 ####JASON Carrasquillo ([id number])[facility] ([facility])[address] [place] [address] Anion gap [Moles/Vol] 16 mmol/L Normal 10-20 [facility] Comment on above: Performed By: #### 2 4362-6 ####JASON Carrasquillo ([id number])[facility] ([facility])[address] [place] [address] Calcium [Mass/Vol] 9.0 mg/dL Normal 8.6-10.6 [facility] Comment on above: Performed By: #### 2 4362-6 ####JASON Carrasquillo ([id number])[facility] ([facility])[address] [place] [address] Chloride [Moles/Vol] 100 mmol/L Normal 98-107 [facility] Comment on above: Performed By: #### 2 4362-6 ####JASON Carrasquillo ([id number])[facility] ([facility])[address] [place] [address] CO2 [Moles/Vol] 24 mmol/L Normal 21-32 [facility] Comment on above: Performed By: #### 2 4362-6 ####JASON Carrasquillo ([id number])[facility] ([facility])[address] [place] [address] Creatinine [Mass/Vol] 5.52 mg/dL High 0.50-1.30 [facility] Comment on above: Performed By: #### 2 4362-6 ####JASON JENNINGS L ([id number])[facility] ([facility])[address] [place] [address] Glomerular filtration rate/1.73 sq M.predicted 11 mL/min/1.73m*2 Low >60 [facility] Comment on above: Result Comment: Calc ulations of estimated GFR are performed using the 2020 CKD-EPI Study Refit equation without the race variable for the IDMS-Traceable creatinine methods.https://jasn.asnjournals.org/content// N.5811684122 Performed By: #### 2 4362-6 ####JASON Carrasquillo ([id number])[facility] ([facility])[address] [place] [address] Glucose [Mass/Vol] 266 mg/dL High 74-99 [facility] Comment on above: Performed By: #### 2 4362-6 ####JASON Carrasquillo ([id number])[facility] ([facility])[address] [place] [address] Phosphate [Mass/Vol] 4.6 mg/dL Normal 2.5-4.9 [facility] Comment on above: Performed By: #### 2 4362-6 ####JASON Carrasquillo ([id number])[facility] ([facility])[address] [place] [address] Potassium [Moles/Vol] 4.6 mmol/L Normal 3.5-5.3 [facility] Comment on above: Performed By: #### 2 4362-6 ####JASON Carrasquillo ([id number])[facility] ([facility])[address] [place] [address] Sodium [Moles/Vol] 135 mmol/L Low 136-145 [facility] Comment on above: Performed By: #### 2 4362-6 ####JASON Carrasquillo ([id number])[facility] ([facility])[address] [place] [address] Urea nitrogen [Mass/Vol] 77 mg/dL High -23 [facility] Comment on above: Performed By: #### 2 4362-6 ####JASON Carrasquillo ([id number])[facility] ([facility])[address] [place] [address] Tacrolimuson 11-29-2024 Tacrolimus (Bld) [Mass/Vol] 21.6 ng/mL Critically high <=15.0 [facility] Comment on above: Order Comment: NOTE: Result was obtained using achemiluminescent microparticle immunoassay(CMIA) on the [employer] system.Optimal therapeutic ranges for immunosuppressantdrugs depend upon an individualpatient's current clinical state, type oforgan transplant, time post-transplant,co-administration of other immunosuppressants,and other clinical factors. The results ofthis test should be correlated with additionalclinical and laboratory data before changesin treatment regimens are made. Performed By: #### 1 1253-2 ####JASON Carrasquillo ([id number])[facility] ([facility])[address] [place] [address] CBC panel Auto (Bld)on 11-27 Erythrocyte distribution width (RBC) [Ratio] 16.3 % High 11.5 - 14.5 % [facility] Hematocrit (Bld) [Volume fraction] 26.7 % Low 41.0 - 52.0 % [facility] Hemoglobin (Bld) [Mass/Vol] 8.7 g/dL Low 13.5 - 17.5 g/dL [facility] Interpretation and review of laboratory results Abnormal [facility] MCH (RBC) [Entitic mass] 25.4 pg Low 26.0 - 34.[address] [facility] MCHC (RBC) [Mass/Vol] 32.6 g/dL 32.0 - 36.0 g/dL [facility] MCV (RBC) [Entitic vol] 78 fL Low 80 - [address] [facility] Nucleated RBC/100 WBC (Bld) [Ratio] 0 % [facility] Platelets (Bld) [#/Vol] 125 10*3/uL Low [facility] RBC (Bld) [#/Vol] 3.43 10*6/uL Low [facility] WBC (Bld) [#/Vol] 6.3 10*3/uL [facility] Erythrocyte distribution width (RBC) [Ratio] 16.3 % High 11.5-14.5 [facility] Comment on above: Performed By: #### 5 8410-2 ####JASON Carrasquillo ([id number])[facility] ([facility])[address] [place] [address] Hematocrit (Bld) [Volume fraction] 26.7 % Low 41.0-52.0 [facility] Comment on above: Performed By: #### 5 8410-2 ####JASON Carrasquillo ([id number])[facility] ([facility])[address] [place] [address] Hemoglobin (Bld) [Mass/Vol] 8.7 g/dL Low 13.5-17.5 [facility] Comment on above: Performed By: #### 5 8410-2 ####JASON Carrasquillo ([id number])[facility] ([facility])[address] [place] [address] MCH (RBC) [Entitic mass] 25.4 pg Low 26.0-34.0 [facility] Comment on above: Performed By: #### 5 8410-2 ####JASON Carrasquillo ([id number])[facility] ([facility])[address] [place] [address] MCHC (RBC) [Mass/Vol] 32.6 g/dL Normal 32.0-36.0 [facility] Comment on above: Performed By: #### 5 8410-2 ####JASON Carrasquillo ([id number])[facility] ([facility])[address] [place] [address] MCV (RBC) [Entitic vol] 78 fL Low 80-100 [facility] Comment on above: Performed By: #### 5 8410-2 ####JASON Carrasquillo ([id number])[facility] ([facility])[address] [place] [address] Nucleated RBC/100 WBC (Bld) [Ratio] 0.0 /100 WBCs Normal 0.0-0.0 [facility] Comment on above: Performed By: #### 5 8410-2 ####JASON Carrasquillo ([id number])[facility] LAB ([facility])[id number] [place] [address] Platelets (Bld) [#/Vol] 125 x10*3/uL Low 150-450 [facility] Comment on above: Performed By: #### 5 8410-2 ####JASON Carrasquillo ([id number])[facility] ([facility])[address] [place] [address] RBC (Bld) [#/Vol] 3.43 x10*6/uL Low 4.50-5.90 [facility] Comment on above: Performed By: #### 5 8410-2 ####JASON Carrasquillo ([id number])[facility] ([facility])[address] [place] [address] WBC (Bld) [#/Vol] 6.3 x10*3/uL Normal 4.4-11.3 [facility] Comment on above: Performed By: #### 5 8410-2 ####JASON Carrasquillo ([id number])[facility] ([facility])[address] [place] [address] Glucose Test strip manual (B ld) [Mass/Vol]on 11-27-2024 Glucose [Mass/Vol] 177 mg/dL High 74 - 99 mg/dL [facility] Interpretation and review of laboratory results Abnormal [facility] Glucose [Mass/Vol] 177 mg/dL High 74-99 [facility] Comment on above: Performed By: #### 2 341-6 ####JASON Carrasquillo ([id number])[facility] ([facility])[address] [place] [address] Glucose [Mass/Vol] 205 mg/dL High 74 - 99 mg/dL [facility] Interpretation and review of laboratory results Abnormal [facility] Glucose [Mass/Vol] 205 mg/dL High 74-99 [facility] Comment on above: Performed By: #### 2 341-6 ####JASON Carrasquillo ([id number])[facility] ([facility])[address] [place] [address] Magnesiumon 11-27-2024 Magnesium [Mass/Vol] 1.91 mg/dL 1.60 - 2.40 mg/dL [facility] Magnesium [Mass/Vol] 1.91 mg/dL Normal 1.60-2.40 [facility] Comment on above: Performed By: #### 1 9123-9 ####JASON Carrasquillo ([id number])[facility] ([facility])[address] [place] [address] Magnesium [Mass/Vol]on 11-27 Interpretation and review of laboratory results Normal [facility] No Panel Informationon 11-[address] [facility] Renal function 2000 panelon 11-27-2024 Albumin BCP dye [Mass/Vol] 3.4 g/dL 3.4 - 5.0 g/dL [facility] Anion gap [Moles/Vol] 12 mmol/L 10 - 20 mmol/L [facility] Calcium [Mass/Vol] 8.8 mg/dL 8.6 - 10. 6 mg/dL [facility] Chloride [Moles/Vol] 98 mmol/L 98 - 10 7 mmol/L [facility] CO2 [Moles/Vol] 30 mmol/L 21 - 32 mmol/L [facility] Creatinine [Mass/Vol] 3.39 mg/dL High 0.50 - 1.30 mg/dL [facility] GFR/1.73 sq M.predicted among non-blacks MDRD (S/P/Bld) [Vol rate/Area] 20 mL/min/{1.73_m2} Low - PINF [facility] Comment on above: Calculations of cleopatra mated GFR are performed using the 2020 CKD-EPI Study Refit equation without the race variable for the IDMS-Traceable creatinine methods. https://jasn.asnjournals.org/content/early/ASN.947038 5503 Glucose [Mass/Vol] 176 mg/dL High 74 - 99 mg/dL [facility] Interpretation and review of laboratory results Abnormal [facility] Phosphate [Mass/Vol] 4.2 mg/dL 2.5 - 4 .9 mg/dL [facility] Potassium [Moles/Vol] 4.1 mmol/L 3.5 - 5.3 mmol/L [facility] Sodium [Moles/Vol] 136 mmol/L 136 - 145 mmol/L [facility] Urea nitrogen [Mass/Vol] 47 mg/dL High 6 - 23 mg/dL [facility] Albumin BCP dye [Mass/Vol] 3.4 g/dL Normal 3.4-5.0 [facility] Comment on above: Performed By: #### 2 4362-6 ####JASON Carrasquillo ([id number])[facility] ([facility])[address] [place] [address] Anion gap [Moles/Vol] 12 mmol/L Normal 10-20 [facility] Comment on above: Performed By: #### 2 4362-6 ####JASON Carrasquillo ([id number])[facility] ([facility])[address] [place] [address] Calcium [Mass/Vol] 8.8 mg/dL Normal 8.6-10.6 [facility] Comment on above: Performed By: #### 2 4362-6 ####JASON Carrasquillo ([id number])[facility] ([facility])[address] [place] [address] Chloride [Moles/Vol] 98 mmol/L Normal 98-107 [facility] Comment on above: Performed By: #### 2 4362-6 ####JASON Carrasquillo ([id number])[facility] ([facility])[address] [place] [address] CO2 [Moles/Vol] 30 mmol/L Normal 21-32 [facility] Comment on above: Performed By: #### 2 4362-6 ####JASON Carrasquillo ([id number])[facility] ([facility])[address] [place] [address] Creatinine [Mass/Vol] 3.39 mg/dL High 0.50-1.30 [facility] Comment on above: Performed By: #### 2 4362-6 ####JASON Carrasquillo ([id number])[facility] ([facility])[address] [place] [address] Glomerular filtration rate/1.73 sq M.predicted 20 mL/min/1.73m*2 Low >60 [facility] Comment on above: Result Comment: Calc ulations of estimated GFR are performed using the 2020 CKD-EPI Study Refit equation without the race variable for the IDMS-Traceable creatinine methods.https://jasn.asnjournals.org/content/early// N.2394306958 Performed By: #### 2 4362-6 ####JASON JENNINGS L ([id number])[facility] ([facility])[address] [place] [address] Glucose [Mass/Vol] 176 mg/dL High 74-99 [facility] Comment on above: Performed By: #### 2 4362-6 ####JASON JENNINGS L ([id number])[facility] ([facility])[address] [place] [address] Phosphate [Mass/Vol] 4.2 mg/dL Normal 2.5-4.9 [facility] Comment on above: Performed By: #### 2 4362-6 ####JASON JENNINGS L ([id number])[facility] ([facility])[address] [place] [address] Potassium [Moles/Vol] 4.1 mmol/L Normal 3.5-5.3 [facility] Comment on above: Performed By: #### 2 4362-6 ####JASON JENNINGS L ([id number])[facility] ([facility])[address] [place] [address] Sodium [Moles/Vol] 136 mmol/L Normal 136-145 [facility] Comment on above: Performed By: #### 2 4362-6 ####JASON JENNINGS L ([id number])[facility] ([facility])[address] [place] [address] Urea nitrogen [Mass/Vol] 47 mg/dL High 6-23 [facility] Comment on above: Performed By: #### 2 4362-6 ####JASON Carrasquillo ([id number])[facility] ([facility])[address] [place] [address] TacrolimusOrdered By: Skyla Silva on 11-27-2024 Tacrolimus (Bld) [Mass/Vol] 15.5 ng/mL High NINF - 15.0 ng/mL [facility] Tacrolimuson 11-27-2024 Tacrolimus (Bld) [Mass/Vol] 15.5 ng/mL High <=15.0 [facility] Comment on above: Order Comment: NOTE: Result was obtained using achemiluminescent microparticle immunoassay(CMIA) on the [employer] system.Optimal therapeutic ranges for immunosuppressantdrugs depend upon an individualpatient's current clinical state, type oforgan transplant, time post-transplant,co-administration of other immunosuppressants,and other clinical factors. The results ofthis test should be correlated with additionalclinical and laboratory data before changesin treatment regimens are made. Performed By: #### 1 1253-2 ####JASON Carrasquillo ([id number])[facility] ([facility])[address] [place], [place] [address] Tacrolimus (Bld) [Mass/Vol]O rdered By: Skyla Silva on 11-27-2024 Interpretation and review of laboratory results Abnormal [facility] NOTE: Result was obtained using a chemiluminescent microparticle immunoassay (CMIA) on the [employer] system. Optimal therapeutic ranges for immunosuppressant drugs depend upon an individual patient's current clinical state, type of organ transplant, time post-transplant, co-administration of other immunosuppressants, and other clinical factors. The results of this test should be correlated with additional clinical and laboratory data before changes in treatment regimens are made. [facility] CBC panel Auto (Bld)on 11-26 Erythrocyte distribution width (RBC) [Ratio] 16.2 % High 11.5 - 14.5 % [facility] Hematocrit (Bld) [Volume fraction] 23.2 % Low 41.0 - 52.0 % [facility] Hemoglobin (Bld) [Mass/Vol] 7.1 g/dL Low 13.5 - 17.5 g/dL [facility] Interpretation and review of laboratory results Abnormal [facility] MCH (RBC) [Entitic mass] 23.8 pg Low 26.0 - 34.[address] [facility] MCHC (RBC) [Mass/Vol] 30.6 g/dL Low 32.0 - 36.0 g/dL [facility] MCV (RBC) [Entitic vol] 78 fL Low 80 - [address] [facility] Nucleated RBC/100 WBC (Bld) [Ratio] 0 % [facility] Platelets (Bld) [#/Vol] 109 10*3/uL Low [facility] RBC (Bld) [#/Vol] 2.98 10*6/uL Low [facility] WBC (Bld) [#/Vol] 7.4 10*3/uL [facility] Erythrocyte distribution width (RBC) [Ratio] 16.2 % High 11.5-14.5 [facility] Comment on above: Performed By: #### 5 8410-2 ####JASON Carrasquillo ([id number])[facility] ([facility])[address] [place] [address] Hematocrit (Bld) [Volume fraction] 23.2 % Low 41.0-52.0 [facility] Comment on above: Performed By: #### 5 8410-2 ####JASON Carrasquillo ([id number])[facility] ([facility])[address] [place] [address] Hemoglobin (Bld) [Mass/Vol] 7.1 g/dL Low 13.5-17.5 [facility] Comment on above: Performed By: #### 5 8410-2 ####JASON Carrasquillo ([id number])[facility] ([facility])[address] [place] [address] MCH (RBC) [Entitic mass] 23.8 pg Low 26.0-34.0 [facility] Comment on above: Performed By: #### 5 8410-2 ####JASON Carrasquillo ([id number])[facility] ([facility])[address] [place] [address] MCHC (RBC) [Mass/Vol] 30.6 g/dL Low 32.0-36.0 [facility] Comment on above: Performed By: #### 5 8410-2 ####JASON Carrasquillo ([id number])[facility] ([facility])[address] [place] [address] MCV (RBC) [Entitic vol] 78 fL Low 80-100 [facility] Comment on above: Performed By: #### 5 8410-2 ####JASON Carrasquillo ([id number])[facility] ([facility])[address] [place] [address] Nucleated RBC/100 WBC (Bld) [Ratio] 0.0 /100 WBCs Normal 0.0-0.0 [facility] Comment on above: Performed By: #### 5 8410-2 ####JASON Carrasquillo ([id number])[facility] ([facility])[address] [place] [address] Platelets (Bld) [#/Vol] 109 x10*3/uL Low 150-450 [facility] Comment on above: Performed By: #### 5 8410-2 ####JASON Carrasquillo ([id number])[facility] ([facility])[address] [place] [address] RBC (Bld) [#/Vol] 2.98 x10*6/uL Low 4.50-5.90 [facility] Comment on above: Performed By: #### 5 8410-2 ####JASON JENNINGS L ([id number])[facility] ([facility])[address] [place] [address] WBC (Bld) [#/Vol] 7.4 x10*3/uL Normal 4.4-11.3 [facility] Comment on above: Performed By: #### 5 8410-2 ####JASON Carrasquillo ([id number])[facility] ([facility])[address] [place] [address] Glucose Test strip manual (B ld) [Mass/Vol]on 11-26-2024 Glucose [Mass/Vol] 178 mg/dL High 74 - 99 mg/dL [facility] Interpretation and review of laboratory results Abnormal [facility] Glucose [Mass/Vol] 178 mg/dL High 74-99 [facility] Comment on above: Performed By: #### 2 341-6 ####JASON Carrasquillo ([id number])[facility] ([facility])[address] [place] [address] Glucose [Mass/Vol] 192 mg/dL High 74 - 99 mg/dL [facility] Interpretation and review of laboratory results Abnormal [facility] Glucose [Mass/Vol] 192 mg/dL High 74-99 [facility] Comment on above: Performed By: #### 2 341-6 ####JASON Carrasquillo ([id number])[facility] ([facility])[address] [place] [address] Glucose [Mass/Vol] 104 mg/dL High 74 - 99 mg/dL [facility] Interpretation and review of laboratory results Abnormal [facility] Glucose [Mass/Vol] 104 mg/dL High 74-99 [facility] Comment on above: Performed By: #### 2 341-6 ####JASON Carrasquillo ([id number])[facility] ([facility])[address] [place] [address] Glucose [Mass/Vol] 328 mg/dL High 74 - 99 mg/dL [facility] Interpretation and review of laboratory results Abnormal [facility] Glucose [Mass/Vol] 328 mg/dL High 74-99 [facility] Comment on above: Performed By: #### 2 341-6 ####JASON Carrasquillo ([id number])[facility] ([facility])[address] [place] [address] Glucose [Mass/Vol] 219 mg/dL High 74 - 99 mg/dL [facility] Interpretation and review of laboratory results Abnormal [facility] Glucose [Mass/Vol] 219 mg/dL High 74-99 [facility] Comment on above: Performed By: #### 2 341-6 ####JASON Carrasquillo ([id number])[facility] ([facility])[address] [place] [address] Glucose [Mass/Vol] 205 mg/dL High 74 - 99 mg/dL [facility] Interpretation and review of laboratory results Abnormal [facility] Glucose [Mass/Vol] 205 mg/dL High 74-99 [facility] Comment on above: Performed By: #### 2 341-6 ####JASON Carrasquillo ([id number])[facility] ([facility])[address] [place] [address] Magnesiumon 11-26-2024 Magnesium [Mass/Vol] 1.94 mg/dL 1.60 - 2.40 mg/dL [facility] Magnesium [Mass/Vol] 1.94 mg/dL Normal 1.60-2.40 [facility] Comment on above: Performed By: #### 1 9123-9 ####JASON Carrasquillo ([id number])[facility] ([facility])[address] [place] [address] Magnesium [Mass/Vol]on 11-26 Interpretation and review of laboratory results Normal [facility] No Panel Informationon 11-[address] [facility] Prepare RBC: 1 Units, Leukoc ytes Reduced (CMV reduced risk)on 11-26-2024 Blood Expiration Date 12/01/2024 11:59:00 PM EDT [facility] Dispense Status TR [facility] PRODUCT BLOOD TYPE 7300 [facility] PRODUCT CODE [id number] [facility] Unit ABO B [facility] Unit Number [id number] [facility] Unit RH Positive [facility] UNIT VOLUME [address] [facility] XM INTEP COMP [facility] Renal function 2000 panelon 11-26-2024 Albumin BCP dye [Mass/Vol] 3.4 g/dL 3.4 - 5.0 g/dL [facility] Anion gap [Moles/Vol] 15 mmol/L 10 - 20 mmol/L [facility] Calcium [Mass/Vol] 9.2 mg/dL 8.6 - 10. 6 mg/dL [facility] Chloride [Moles/Vol] 101 mmol/L 98 - 10 7 mmol/L [facility] CO2 [Moles/Vol] 24 mmol/L 21 - 32 mmol/L [facility] Creatinine [Mass/Vol] 4.97 mg/dL High 0.50 - 1.30 mg/dL [facility] GFR/1.73 sq M.predicted among non-blacks MDRD (S/P/Bld) [Vol rate/Area] 13 mL/min/{1.73_m2} Low - PINF [facility] Comment on above: Calculations of cleopatra mated GFR are performed using the 2020 CKD-EPI Study Refit equation without the race variable for the IDMS-Traceable creatinine methods. https://jasn.asnjournals.org/content/early/ASN.924141 1315 Glucose [Mass/Vol] 239 mg/dL High 74 - 99 mg/dL [facility] Interpretation and review of laboratory results Abnormal [facility] Phosphate [Mass/Vol] 5.5 mg/dL High 2.5 - 4 .9 mg/dL [facility] Potassium [Moles/Vol] 5 mmol/L 3.5 - 5.3 mmol/L [facility] Sodium [Moles/Vol] 135 mmol/L Low 136 - 145 mmol/L [facility] Urea nitrogen [Mass/Vol] 92 mg/dL Critically high 6 - 23 mg/dL [facility] Albumin BCP dye [Mass/Vol] 3.4 g/dL Normal 3.4-5.0 [facility] Comment on above: Performed By: #### 2 4362-6 ####JASON Carrasquillo ([id number])[facility] ([facility])[address] [place] [address] Anion gap [Moles/Vol] 15 mmol/L Normal 10-20 [facility] Comment on above: Performed By: #### 2 4362-6 ####JASON JENNINGS L ([id number])[facility] ([facility])[address] [place] [address] Calcium [Mass/Vol] 9.2 mg/dL Normal 8.6-10.6 [facility] Comment on above: Performed By: #### 2 4362-6 ####JASON JENNINGS L ([id number])[facility] ([facility])[address] [place] [address] Chloride [Moles/Vol] 101 mmol/L Normal 98-107 [facility] Comment on above: Performed By: #### 2 4362-6 ####JASON JENNINGS L ([id number])[facility] ([facility])[address] [place] [address] CO2 [Moles/Vol] 24 mmol/L Normal 21-32 [facility] Comment on above: Performed By: #### 2 4362-6 ####JASON JENNINGS L ([id number])[facility] ([facility])[address] [place] [address] Creatinine [Mass/Vol] 4.97 mg/dL High 0.50-1.30 [facility] Comment on above: Performed By: #### 2 4362-6 ####JASON JENNINGS L ([id number])[facility] ([facility])[address] [place] [address] Glomerular filtration rate/1.73 sq M.predicted 13 mL/min/1.73m*2 Low >60 [facility] Comment on above: Result Comment: Calc ulations of estimated GFR are performed using the 2020 CKD-EPI Study Refit equation without the race variable for the IDMS-Traceable creatinine methods.https://jasn.asnjournals.org/content/early// N.7122341107 Performed By: #### 2 4362-6 ####JASON Carrasquillo ([id number])[facility] ([facility])[address] [place] [address] Glucose [Mass/Vol] 239 mg/dL High 74-99 [facility] Comment on above: Performed By: #### 2 4362-6 ####JASON Carrasquillo ([id number])[facility] ([facility])[address] [place] [address] Phosphate [Mass/Vol] 5.5 mg/dL High 2.5-4.9 [facility] Comment on above: Performed By: #### 2 4362-6 ####JASON Carrasquillo ([id number])[facility] ([facility])[address] [place] [address] Potassium [Moles/Vol] 5.0 mmol/L Normal 3.5-5.3 [facility] Comment on above: Performed By: #### 2 4362-6 ####JASON Carrasquillo ([id number])[facility] ([facility])[address] [place] [address] Sodium [Moles/Vol] 135 mmol/L Low 136-145 [facility] Comment on above: Performed By: #### 2 4362-6 ####JASON Carrasquillo ([id number])[facility] ([facility])[address] [place] [address] Urea nitrogen [Mass/Vol] 92 mg/dL Critically high 6-23 [facility] Comment on above: Performed By: #### 2 4362-6 ####JASON Carrasquillo ([id number])[facility] ([facility])[address] [place] [address] TacrolimusOrdered By: Jose Francisco Ogden on 11-26-2024 Tacrolimus (Bld) [Mass/Vol] 7.6 ng/mL NINF - 15.0 ng/mL [facility] Tacrolimuson 11-26-2024 Tacrolimus (Bld) [Mass/Vol] 7.6 ng/mL Normal <=15.0 [facility] Comment on above: Order Comment: NOTE: Result was obtained using achemiluminescent microparticle immunoassay(CMIA) on the [employer] system.Optimal therapeutic ranges for immunosuppressantdrugs depend upon an individualpatient's current clinical state, type oforgan transplant, time post-transplant,co-administration of other immunosuppressants,and other clinical factors. The results ofthis test should be correlated with additionalclinical and laboratory data before changesin treatment regimens are made. Performed By: #### 1 1253-2 ####JASON Carrasquillo ([id number])[facility] ([facility])[address] [place] [address] Tacrolimus (Bld) [Mass/Vol]O rdered By: Jose Francisco Catherine on 11-26-2024 Interpretation and review of laboratory results [facility] NOTE: Result was obtained using a chemiluminescent microparticle immunoassay (CMIA) on the [employer] system. Optimal therapeutic ranges for immunosuppressant drugs depend upon an individual patient's current clinical state, type of organ transplant, time post-transplant, co-administration of other immunosuppressants, and other clinical factors. The results of this test should be correlated with additional clinical and laboratory data before changes in treatment regimens are made. [facility] Blood type and Indirect anti body screen panel (Bld)on 11-25-2024 ABO group Nom (Bld) [facility] Ql Negative [facility] D Ag Ql (Bld) Positive [facility] ABO group Nom (Bld) B Normal [facility] Comment on above: Performed By: #### 3 4532-2 ####JASON Carrasquillo ([id number])[facility] ([facility])[id number] [place] [address] Blood group antibody screen Ql Negative Normal [facility] Comment on above: Performed By: #### 3 4532-2 ####JASON Carrasquillo ([id number])[facility] ([facility])[id number] [place] [address] D Ag Ql (Bld) Positive Normal [facility] Comment on above: Performed By: #### 3 4532-2 ####JASON Carrasquillo ([id number])[facility] ([facility])[address] [place] [address] CBC panel Auto (Bld)on 11-25 Erythrocyte distribution width (RBC) [Ratio] 16.5 % High 11.5 - 14.5 % [facility] Hematocrit (Bld) [Volume fraction] 24.4 % Low 41.0 - 52.0 % [facility] Hemoglobin (Bld) [Mass/Vol] 7.4 g/dL Low 13.5 - 17.5 g/dL [facility] [facility] Interpretation and review of laboratory results Abnormal [facility] MCH (RBC) [Entitic mass] 24.1 pg Low 26.0 - 34.[address] [facility] MCHC (RBC) [Mass/Vol] 30.3 g/dL Low 32.0 - 36.0 g/dL [facility] MCV (RBC) [Entitic vol] 80 fL 80 - [address] [facility] Nucleated RBC/100 WBC (Bld) [Ratio] 0 % [facility] Platelets (Bld) [#/Vol] 94 10*3/uL [facility] RBC (Bld) [#/Vol] 3.07 10*6/uL [facility] WBC (Bld) [#/Vol] 3.6 10*3/uL [facility] Erythrocyte distribution width (RBC) [Ratio] 16.5 % High 11.5-14.5 [facility] Comment on above: Performed By: #### 5 8410-2 ####JASON Carrasquillo ([id number])[facility] ([facility])[address] [place] [address] Hematocrit (Bld) [Volume fraction] 24.4 % Low 41.0-52.0 [facility] Comment on above: Performed By: #### 5 8410-2 ####JASON Carrasquillo ([id number])[facility] ([facility])[address] [place] [address] Hemoglobin (Bld) [Mass/Vol] 7.4 g/dL Low 13.5-17.5 [facility] Comment on above: Performed By: #### 5 8410-2 ####JASON Carrasquillo ([id number])[facility] ([facility])[address] [place] [address] MCH (RBC) [Entitic mass] 24.1 pg Low 26.0-34.0 [facility] Comment on above: Performed By: #### 5 8410-2 ####JASON Carrasquillo ([id number])[facility] ([facility])[address] [place] [address] MCHC (RBC) [Mass/Vol] 30.3 g/dL Low 32.0-36.0 [facility] Comment on above: Performed By: #### 5 8410-2 ####JASON Carrasquillo ([id number])[facility] ([facility])[address] [place] [address] MCV (RBC) [Entitic vol] 80 fL Normal 80-100 [facility] Comment on above: Performed By: #### 5 8410-2 ####JASON Carrasquillo ([id number])[facility] ([facility])[address] [place] [address] Nucleated RBC/100 WBC (Bld) [Ratio] 0.0 /100 WBCs Normal 0.0-0.0 [facility] Comment on above: Performed By: #### 5 8410-2 ####JASON Carrasquillo ([id number])[facility] ([facility])[address] [place] [address] Platelets (Bld) [#/Vol] 94 x10*3/uL Low 150-450 [facility] Comment on above: Performed By: #### 5 8410-2 ####JASON Carrasquillo ([id number])[facility] ([facility])[address] [place] [address] RBC (Bld) [#/Vol] 3.07 x10*6/uL Low 4.50-5.90 [facility] Comment on above: Performed By: #### 5 8410-2 ####JASON Carrasquillo ([id number])[facility] ([facility])[address] [place] [address] WBC (Bld) [#/Vol] 3.6 x10*3/uL Low 4.4-11.3 [facility] Comment on above: Performed By: #### 5 8410-2 ####JASON Carrasquillo ([id number])[facility] ([facility])[address] [place] [address] Glucose Test strip manual (B ld) [Mass/Vol]on 11-25-2024 Glucose [Mass/Vol] 293 mg/dL High 74 - 99 mg/dL [facility] Interpretation and review of laboratory results Abnormal [facility] Glucose [Mass/Vol] 293 mg/dL High 74-99 [facility] Comment on above: Performed By: #### 2 341-6 ####JASON Carrasquillo ([id number])[facility] ([facility])[address] [place] [address] Glucose [Mass/Vol] 253 mg/dL High 74 - 99 mg/dL [facility] Interpretation and review of laboratory results Abnormal [facility] Glucose [Mass/Vol] 253 mg/dL High 74-99 [facility] Comment on above: Performed By: #### 2 341-6 ####JASON Carrasquillo ([id number])[facility] ([facility])[address] [place] [address] Glucose [Mass/Vol] 263 mg/dL High 74 - 99 mg/dL [facility] Interpretation and review of laboratory results Abnormal [facility] Glucose [Mass/Vol] 263 mg/dL High 74-99 [facility] Comment on above: Performed By: #### 2 341-6 ####JASON Carrasquillo ([id number])[facility] ([facility])[address] [place] [address] Glucose [Mass/Vol] 393 mg/dL High 74 - 99 mg/dL [facility] Interpretation and review of laboratory results Abnormal [facility] Glucose [Mass/Vol] 393 mg/dL High 74-99 [facility] Comment on above: Performed By: #### 2 341-6 ####JASON Carrasquillo ([id number])[facility] ([facility])[address] [place] [address] Glucose [Mass/Vol] 464 mg/dL High 74 - 99 mg/dL [facility] Interpretation and review of laboratory results Abnormal [facility] Glucose [Mass/Vol] 464 mg/dL High 74-99 [facility] Comment on above: Performed By: #### 2 341-6 ####JASON Carrasquillo ([id number])[facility] ([facility])[address] [place] [address] Glucose [Mass/Vol] 273 mg/dL High 74 - 99 mg/dL [facility] Interpretation and review of laboratory results Abnormal [facility] Glucose [Mass/Vol] 273 mg/dL High 74-99 [facility] Comment on above: Performed By: #### 2 341-6 ####JASON Carrasquillo ([id number])[facility] ([facility])[address] [place] [address] Glucose [Mass/Vol] 369 mg/dL High 74 - 99 mg/dL [facility] Interpretation and review of laboratory results Abnormal [facility] Glucose [Mass/Vol] 369 mg/dL High 74-99 [facility] Comment on above: Performed By: #### 2 341-6 ####JASON Carrasquillo ([id number])[facility] ([facility])[address] [place] [address] Magnesiumon 11-25-2024 Magnesium [Mass/Vol] 1.97 mg/dL 1.60 - 2.40 mg/dL [facility] Magnesium [Mass/Vol] 1.97 mg/dL Normal 1.60-2.40 [facility] Comment on above: Performed By: #### 1 9123-9 ####JASON Carrasquillo ([id number])[facility] ([facility])[address] [place] [address] Magnesium [Mass/Vol]on 11-25 Interpretation and review of laboratory results Normal [facility] No Panel Informationon 11-[address] [facility] Renal function 2000 panelon 11-25-2024 Albumin BCP dye [Mass/Vol] 3.5 g/dL 3.4 - 5.0 g/dL [facility] Anion gap [Moles/Vol] 16 mmol/L 10 - 20 mmol/L [facility] Calcium [Mass/Vol] 8.8 mg/dL 8.6 - 10. 6 mg/dL [facility] Chloride [Moles/Vol] 100 mmol/L 98 - 10 7 mmol/L [facility] CO2 [Moles/Vol] 23 mmol/L 21 - 32 mmol/L [facility] Creatinine [Mass/Vol] 4.64 mg/dL High 0.50 - 1.30 mg/dL [facility] GFR/1.73 sq M.predicted among non-blacks MDRD (S/P/Bld) [Vol rate/Area] 14 mL/min/{1.73_m2} Low - PINF [facility] Comment on above: Calculations of cleopatra mated GFR are performed using the 2020 CKD-EPI Study Refit equation without the race variable for the IDMS-Traceable creatinine methods. https://jasn.asnjournals.org/content//ASN.485665 5436 Glucose [Mass/Vol] 365 mg/dL High 74 - 99 mg/dL [facility] Interpretation and review of laboratory results Abnormal [facility] Phosphate [Mass/Vol] 4.9 mg/dL 2.5 - 4 .9 mg/dL [facility] Potassium [Moles/Vol] 4 mmol/L 3.5 - 5.3 mmol/L [facility] Sodium [Moles/Vol] 135 mmol/L Low 136 - 145 mmol/L [facility] Urea nitrogen [Mass/Vol] 78 mg/dL High 6 - 23 mg/dL [facility] Albumin BCP dye [Mass/Vol] 3.5 g/dL Normal 3.4-5.0 [facility] Comment on above: Performed By: #### 2 4362-6 ####JASON Carrasquillo ([id number])[facility] ([facility])[address] [place] [address] Anion gap [Moles/Vol] 16 mmol/L Normal 10-20 [facility] Comment on above: Performed By: #### 2 4362-6 ####JASON Carrasquillo ([id number])[facility] ([facility])[address] [place] [address] Calcium [Mass/Vol] 8.8 mg/dL Normal 8.6-10.6 [facility] Comment on above: Performed By: #### 2 4362-6 ####JASON Carrasquillo ([id number])[facility] ([facility])[address] [place] [address] Chloride [Moles/Vol] 100 mmol/L Normal 98-107 [facility] Comment on above: Performed By: #### 2 4362-6 ####JASON Carrasquillo ([id number])[facility] ([facility])[address] [place] [address] CO2 [Moles/Vol] 23 mmol/L Normal 21-32 [facility] Comment on above: Performed By: #### 2 4362-6 ####JASON Carrasquillo ([id number])[facility] ([facility])[address] [place] [address] Creatinine [Mass/Vol] 4.64 mg/dL High 0.50-1.30 [facility] Comment on above: Performed By: #### 2 4362-6 ####JASON Carrasquillo ([id number])[facility] ([facility])[address] [place] [address] Glomerular filtration rate/1.73 sq M.predicted 14 mL/min/1.73m*2 Low >60 [facility] Comment on above: Result Comment: Calc ulations of estimated GFR are performed using the 2020 CKD-EPI Study Refit equation without the race variable for the IDMS-Traceable creatinine methods.https://jasn.asnjournals.org/content/early// N.3364894940 Performed By: #### 2 4362-6 ####JASON JENNINGS L ([id number])[facility] ([facility])[address] [place] [address] Glucose [Mass/Vol] 365 mg/dL High 74-99 [facility] Comment on above: Performed By: #### 2 4362-6 ####JASON JENNINGS L ([id number])[facility] ([facility])[address] [place] [address] Phosphate [Mass/Vol] 4.9 mg/dL Normal 2.5-4.9 [facility] Comment on above: Performed By: #### 2 4362-6 ####JASON JENNINGS L ([id number])[facility] ([facility])[address] [place] [address] Potassium [Moles/Vol] 4.0 mmol/L Normal 3.5-5.3 [facility] Comment on above: Performed By: #### 2 4362-6 ####JASON JENNINGS L ([id number])[facility] ([facility])[address] [place] [address] Sodium [Moles/Vol] 135 mmol/L Low 136-145 [facility] Comment on above: Performed By: #### 2 4362-6 ####JASON JENNINGS L ([id number])[facility] ([facility])[address] [facility] [place] [address] Urea nitrogen [Mass/Vol] 78 mg/dL High 6-23 [facility] Comment on above: Performed By: #### 2 4362-6 ####JASON Carrasquillo ([id number])[facility] ([facility])[address] [place] [address] TacrolimusOrdered By: Deisy Patterson on 11-25-2024 Tacrolimus (Bld) [Mass/Vol] 11.5 ng/mL NINF - 15.0 ng/mL [facility] Tacrolimuson 11-25-2024 Tacrolimus (Bld) [Mass/Vol] 11.5 ng/mL Normal <=15.0 [facility] Comment on above: Order Comment: NOTE: Result was obtained using achemiluminescent microparticle immunoassay(CMIA) on the [employer] system.Optimal therapeutic ranges for immunosuppressantdrugs depend upon an individualpatient's current clinical state, type oforgan transplant, time post-transplant,co-administration of other immunosuppressants,and other clinical factors. The results ofthis test should be correlated with additionalclinical and laboratory data before changesin treatment regimens are made. Performed By: #### 1 1253-2 ####JASON Carrasquillo ([id number])[facility] ([facility])[address] [place] [address] Tacrolimus (Bld) [Mass/Vol]O rdered By: Deisy Patterson on 11-25-2024 Interpretation and review of laboratory results Normal [facility] NOTE: Result was obtained using a chemiluminescent microparticle immunoassay (CMIA) on the [employer] system. Optimal therapeutic ranges for immunosuppressant drugs depend upon an individual patient's current clinical state, type of organ transplant, time post-transplant, co-administration of other immunosuppressants, and other clinical factors. The results of this test should be correlated with additional clinical and laboratory data before changes in treatment regimens are made. [facility] US for transplanted kidneyon 11-25-2024 1. Compared to 10/17/2024, there has been a decrease in size of the previously described perinephric fluid collection. This may represent a resolving hematoma. Additional considerations include a lymphocele a resolving seroma. 2. Prominence of the renal calyces without significant pelvic dilation, which may represent early or mild hydronephrosis. 3. Significant distention of the urinary bladder with high postvoid residual. The bladder wall is prominent to mildly thickened. Consider clinical correlation for urinary retention, as well as urinalysis for urinary tract infection. 4. Doppler evaluation, as above. I personally reviewed the images/study and I agree with the findings as stated by Danial Gupta MD. 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 making little urine, admitted for TCMR. eval ureter for hydro , eval kidney itself. r/o any collection that may be compressing ureter. Transplant date: 10/15/2024. COMPARISON: Ultrasound kidney transplant 10/17/2024. ACCESSION NUMBER(S): [id number] ORDERING CLINICIAN: BRANDI CAVANAUGH TECHNIQUE: Grayscale, color, and spectral Doppler of the kidney transplant were performed. This examination was interpreted at [facility]. FINDINGS: All prior comparisons referred to 10/17/2024 exam. TRANSPLANT KIDNEY: Transplant kidney location: The renal transplant is located in the right iliac fossa. The transplant kidney gjntfobn61.4 cm (prior: 12.1 cm). In craniocaudal dimension. There is prominence of the renal calyces without significant pelvic dilation. No hydroureter. There is a hypoechoic fluid collection with subtle internal echoes along the inferolateral margin of the transplanted kidney, which measures 3.7 x 2.0 x 2.0 cm, decreased in size compared to 10/17/2024 exam. There is no significant internal Doppler flow. BLADDER: Extensive twinkle artifact is noted surrounding the urinary bladder, which appears to be true artifact without an underlying echogenicity, particularly when viewed on cine sequences. The bladder is significantly distended. Prevoid volume: 48.1 mL. Postvoid residual: 427.4 mL. For the extent of distention, the bladder wall is prominent to mildly thickened measuring 0.4 cm. DOPPLER EVALUATION: RESISTIVE INDICES: The resistive indices were as follows: 0.7 (prior: 0.8-0.9) in the superior pole, 0.6 (prior: 0.8) in the midpole, and 0.7 (prior 0.8) in the inferior pole. Wave forms are normal. TRANSPLANT RENAL ARTERY AND VEIN: Main Renal Artery: *At the hilum: 77.0 cm/sec (prior: 145.0 cm/sec) *At the mid section: 206.4 cm/sec (prior: 84.1 cm/sec) *At the anastomosis: 94.8 cm/sec (prior: 51.6 cm/sec) Adjacent Iliac Artery: *Proximal to the anastomosis: 69.2 cm/sec (prior: 47.5 cm/sec) *At the anastomosis: 111.4 cm/sec (prior: 50.1 cm/sec) *Distal to the anastomosis: 80.1 cm/sec (prior: 51.2 cm/sec) Transplant Renal Vein: Patent *At the hilum: 20.4 cm/sec (prior: 13.4 cm/sec) *At the mid section:25.2 cm/sec (prior: 13.8 cm/sec) *At the anastomosis: 95.9 cm/sec (prior: 48.8 cm/sec) Adjacent Iliac Vein: *Proximal to the anastomosis: 32.1 cm/sec (prior: 8.0 cm/sec) *Distal to the anastomosis: 17.3 cm/sec (prior: 12.2 cm/sec) MMODAL Moreno Choe MD - 11/25/2024 Interpreted By: Moreno Choe and Barbat Antonio STUDY: US KIDNEY TRANSPLANT; 11/25/2024 12:55 am INDICATION: Signs/Symptoms: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 making little urine, admitted for TCMR. eval ureter for hydro , eval kidney itself. r/o any collection that may be compressing ureter. Transplant date: 10/15/2024. COMPARISON: Ultrasound kidney transplant 10/17/2024. ACCESSION NUMBER(S): [id number] ORDERING CLINICIAN: BRANDI CAVANAUGH TECHNIQUE: Grayscale, color, and spectral Doppler of the kidney transplant were performed. This examination was interpreted at [facility]. FINDINGS: All prior comparisons referred to 10/17/2024 exam. TRANSPLANT KIDNEY: Transplant kidney location: The renal transplant is located in the right iliac fossa. The transplant kidney ijhvhnlf38.4 cm (prior: 12.1 cm). In craniocaudal dimension. There is prominence of the renal calyces without significant pelvic dilation. No hydroureter. There is a hypoechoic fluid collection with subtle internal echoes along the inferolateral margin of the transplanted kidney, which measures 3.7 x 2.0 x 2.0 cm, decreased in size compared to 10/17/2024 exam. There is no significant internal Doppler flow. BLADDER: Extensive twinkle artifact is noted surrounding the urinary bladder, which appears to be true artifact without an underlying echogenicity, particularly when viewed on cine sequences. The bladder is significantly distended. Prevoid volume: 48.1 mL. Postvoid residual: 427.4 mL. For the extent of distention, the bladder wall is prominent to mildly thickened measuring 0.4 cm. DOPPLER EVALUATION: RESISTIVE INDICES: The resistive indices were as follows: 0.7 (prior: 0.8-0.9) in the superior pole, 0.6 (prior: 0.8) in the midpole, and 0.7 (prior 0.8) in the inferior pole. Wave forms are normal. TRANSPLANT RENAL ARTERY AND VEIN: Main Renal Artery: *At the hilum: 77.0 cm/sec (prior: 145.0 cm/sec) *At the mid section: 206.4 cm/sec (prior: 84.1 cm/sec) *At the anastomosis: 94.8 cm/sec (prior: 51.6 cm/sec) Adjacent Iliac Artery: *Proximal to the anastomosis: 69.2 cm/sec (prior: 47.5 cm/sec) *At the anastomosis: 111.4 cm/sec (prior: 50.1 cm/sec) *Distal to the anastomosis: 80.1 cm/sec (prior: 51.2 cm/sec) Transplant Renal Vein: Patent *At the hilum: 20.4 cm/sec (prior: 13.4 cm/sec) *At the mid section:25.2 cm/sec (prior: 13.8 cm/sec) *At the anastomosis: 95.9 cm/sec (prior: 48.8 cm/sec) Adjacent Iliac Vein: *Proximal to the anastomosis: 32.1 cm/sec (prior: 8.0 cm/sec) *Distal to the anastomosis: 17.3 cm/sec (prior: 12.2 cm/sec) IMPRESSION: 1. Compared to 10/17/2024, there has been a decrease in size of the previously described perinephric fluid collection. This may represent a resolving hematoma. Additional considerations include a lymphocele a resolving seroma. 2. Prominence of the renal calyces without significant pelvic dilation, which may represent early or mild hydronephrosis. 3. Significant distention of the urinary bladder with high postvoid residual. The bladder wall is prominent to mildly thickened. Consider clinical correlation for urinary retention, as well as urinalysis for urinary tract infection. 4. Doppler evaluation, as above. I personally reviewed the images/study and I agree with the findings as stated by Danial Gupta MD. This study was interpreted at [place], [place] MACRO: None Signed by: Moreno Choe 11/25/2024 5:49 AM Dictation workstation: [id number] [facility] Work Phone: Radiology Study observation (narrative) [facility] Work Phone: US for transplanted kidneyOr dered By: Moreno Choe on 11-25-[address] [facility] Work Phone: CBC panel Auto (Bld)on 11-24 Erythrocyte distribution width (RBC) [Ratio] 16.4 % High 11.5-14.5 [facility] Comment on above: Performed By: #### 5 8410-2 ####JASON Carrasquillo ([id number])[facility] ([facility])[address] [place] [address] Hematocrit (Bld) [Volume fraction] 26.5 % Low 41.0-52.0 [facility] Comment on above: Performed By: #### 5 8410-2 ####JASON Carrasquillo ([id number])[facility] ([facility])[address] [place] [address] Hemoglobin (Bld) [Mass/Vol] 8.2 g/dL Low 13.5-17.5 [facility] Comment on above: Performed By: #### 5 8410-2 ####JASON Carrasquillo ([id number])[facility] ([facility])[address] [place] [address] MCH (RBC) [Entitic mass] 24.5 pg Low 26.0-34.0 [facility] Comment on above: Performed By: #### 5 8410-2 ####JASON Carrasquillo ([id number])[facility] ([facility])[address] [place] [address] MCHC (RBC) [Mass/Vol] 30.9 g/dL Low 32.0-36.0 [facility] Comment on above: Performed By: #### 5 8410-2 ####JASON Carrasquillo ([id number])[facility] ([facility])[address] [place] [address] MCV (RBC) [Entitic vol] 79 fL Low 80-100 [facility] Comment on above: Performed By: #### 5 8410-2 ####JASON Carrasquillo ([id number])[facility] ([facility])[address] [place] [address] Nucleated RBC/100 WBC (Bld) [Ratio] 0.0 /100 WBCs Normal 0.0-0.0 [facility] Comment on above: Performed By: #### 5 8410-2 ####JASON Carrasquillo ([id number])[facility] ([facility])[address] [place] [address] Platelets (Bld) [#/Vol] 140 x10*3/uL Low 150-450 [facility] Comment on above: Performed By: #### 5 8410-2 ####JASON Carrasquillo ([id number])[facility] ([facility])[address] [place] [address] RBC (Bld) [#/Vol] 3.35 x10*6/uL Low 4.50-5.90 [facility] Comment on above: Performed By: #### 5 8410-2 ####JASON Carrasquillo ([id number])[facility] ([facility])[address] [place] [address] WBC (Bld) [#/Vol] 5.0 x10*3/uL Normal 4.4-11.3 [facility] Comment on above: Performed By: #### 5 8410-2 ####JASON Carrasquillo ([id number])[facility] ([facility])[address] [place] [address] Magnesiumon 11-24-2024 Magnesium [Mass/Vol] 2.01 mg/dL Normal 1.60-2.40 [facility] Comment on above: Performed By: #### 1 9123-9 ####JASON Carrasquillo ([id number])[facility] ([facility])[id number] [place] [address] Renal function 2000 panelon 11-24-2024 Albumin BCP dye [Mass/Vol] 3.7 g/dL Normal 3.4-5.0 [facility] Comment on above: Performed By: #### 2 4362-6 ####JASON Carrasquillo ([id number])[facility] ([facility])[address] [place] [address] Anion gap [Moles/Vol] 14 mmol/L Normal 10-20 [facility] Comment on above: Performed By: #### 2 4362-6 ####JASON Carrasquillo ([id number])[facility] ([facility])[address] [place] [address] Calcium [Mass/Vol] 9.1 mg/dL Normal 8.6-10.6 [facility] Comment on above: Performed By: #### 2 4362-6 ####JASON Carrasquillo ([id number])[facility] ([facility])[address] [place] [address] Chloride [Moles/Vol] 102 mmol/L Normal 98-107 [facility] Comment on above: Performed By: #### 2 4362-6 ####JASON Carrasquillo ([id number])[facility] ([facility])[address] [place] [address] CO2 [Moles/Vol] 29 mmol/L Normal 21-32 [facility] Comment on above: Performed By: #### 2 4362-6 ####JASON JENNINGS L ([id number])[facility] ([facility])[address] [place] [address] Creatinine [Mass/Vol] 4.50 mg/dL High 0.50-1.30 [facility] Comment on above: Performed By: #### 2 4362-6 ####JASON Carrasquillo ([id number])[facility] ([facility])[address] [place] [address] Glomerular filtration rate/1.73 sq M.predicted 15 mL/min/1.73m*2 Low >60 [facility] Comment on above: Result Comment: Calc ulations of estimated GFR are performed using the 2020 CKD-EPI Study Refit equation without the race variable for the IDMS-Traceable creatinine methods.https://jasn.asnjournals.org/content// N.4241239150 Performed By: #### 2 4362-6 ####JASON Carrasquillo ([id number])[facility] ([facility])[address] [place] [address] Glucose [Mass/Vol] 61 mg/dL Low 74-99 [facility] Comment on above: Performed By: #### 2 4362-6 ####JASON JENNINGS L ([id number])[facility] ([facility])[address] [place] [address] Phosphate [Mass/Vol] 4.2 mg/dL Normal 2.5-4.9 [facility] Comment on above: Performed By: #### 2 4362-6 ####JASON Carrasquillo ([id number])[facility] ([facility])[address] [place] [address] Potassium [Moles/Vol] 5.2 mmol/L Normal 3.5-5.3 [facility] Comment on above: Performed By: #### 2 4362-6 ####JASON Carrasquillo ([id number])[facility] ([facility])[address] [place] [address] Sodium [Moles/Vol] 140 mmol/L Normal 136-145 [facility] Comment on above: Performed By: #### 2 4362-6 ####JASON Carrasquillo ([id number])[facility] ([facility])[address] [place] [address] Urea nitrogen [Mass/Vol] 74 mg/dL High 6- [facility] Comment on above: Performed By: #### 2 4362-6 ####JASON Carrasquillo ([id number])[facility] ([facility])[address] [place] [address] Tacrolimuson 11-24-2024 Tacrolimus (Bld) [Mass/Vol] 4.6 ng/mL Normal <=15.0 [facility] Comment on above: Order Comment: NOTE: Result was obtained using achemiluminescent microparticle immunoassay(CMIA) on the [employer] system.Optimal therapeutic ranges for immunosuppressantdrugs depend upon an individualpatient's current clinical state, type oforgan transplant, time post-transplant,co-administration of other immunosuppressants,and other clinical factors. The results ofthis test should be correlated with additionalclinical and laboratory data before changesin treatment regimens are made. Performed By: #### 1 1253-2 ####JASON Carrasquillo ([id number])[facility] ([facility])[address] [place] [address] US KIDNEY TRANSPLANTon 11-24 US KIDNEY TRANSPLANT Normal [facility] Surgical pathology studyon 0 11-23-2024 Surgical pathology study Normal [facility] US RENAL TRANSPLANT BIOPSYon 11-23-2024 US RENAL TRANSPLANT BIOPSY Normal [facility] CBC panel Auto (Bld)on 11-22 Erythrocyte distribution width (RBC) [Ratio] 16.4 % High 11.5-14.5 [facility] Comment on above: Performed By: #### 5 8410-2 ####JASON Carrasquillo ([id number])[facility] ([facility])[address] [place] [address] Hematocrit (Bld) [Volume fraction] 25.7 % Low 41.0-52.0 [facility] Comment on above: Performed By: #### 5 8410-2 ####JASON Carrasquillo ([id number])[facility] ([facility])[address] [place] [address] Hemoglobin (Bld) [Mass/Vol] 8.0 g/dL Low 13.5-17.5 [facility] Comment on above: Performed By: #### 5 8410-2 ####JASON Carrasquillo ([id number])[facility] ([facility])[address] [place] [address] MCH (RBC) [Entitic mass] 24.7 pg Low 26.0-34.0 [facility] Comment on above: Performed By: #### 5 8410-2 ####JASON Carrasquillo ([id number])[facility] ([facility])[address] [place] [address] MCHC (RBC) [Mass/Vol] 31.1 g/dL Low 32.0-36.0 [facility] Comment on above: Performed By: #### 5 8410-2 ####JASON Carrasquillo ([id number])[facility] ([facility])[address] [place] [address] MCV (RBC) [Entitic vol] 79 fL Low 80-100 [facility] Comment on above: Performed By: #### 5 8410-2 ####JASON Carrasquillo ([id number])[facility] ([facility])[address] [place] [address] Nucleated RBC/100 WBC (Bld) [Ratio] 0.0 /100 WBCs Normal 0.0-0.0 [facility] Comment on above: Performed By: #### 5 8410-2 ####JASON Carrasquillo ([id number])[facility] ([facility])[address] [place] [address] Platelets (Bld) [#/Vol] 125 x10*3/uL Low 150-450 [facility] Comment on above: Performed By: #### 5 8410-2 ####JASON Carrasquillo ([id number])[facility] ([facility])[address] [place] [address] RBC (Bld) [#/Vol] 3.24 x10*6/uL Low 4.50-5.90 [facility] Comment on above: Performed By: #### 5 8410-2 ####JASON Carrasquillo ([id number])[facility] ([facility])[address] [place] [address] WBC (Bld) [#/Vol] 5.2 x10*3/uL Normal 4.4-11.3 [facility] Comment on above: Performed By: #### 5 8410-2 ####JASON Carrasquillo ([id number])[facility] ([facility])[address] [place] [address] Magnesiumon 11-22-2024 Magnesium [Mass/Vol] 1.98 mg/dL Normal 1.60-2.40 [facility] Comment on above: Performed By: #### 1 9123-9 ####JASON Carrasquillo ([id number])[facility] ([facility])[address] [place] [address] Renal function 2000 panelon 11-22-2024 Albumin BCP dye [Mass/Vol] 3.5 g/dL Normal 3.4-5.0 [facility] Comment on above: Performed By: #### 2 4362-6 ####JASON Carrasquillo ([id number])[facility] ([facility])[address] [place] [address] Anion gap [Moles/Vol] 15 mmol/L Normal 10-20 [facility] Comment on above: Performed By: #### 2 4362-6 ####JASON JENNINGS L ([id number])[facility] ([facility])[address] [facility] [place] [address] Calcium [Mass/Vol] 8.3 mg/dL Low 8.6-10.6 [facility] Comment on above: Performed By: #### 2 4362-6 ####JASON JENNINGS L ([id number])[facility] ([facility])[address] [place] [address] Chloride [Moles/Vol] 103 mmol/L Normal 98-107 [facility] Comment on above: Performed By: #### 2 4362-6 ####JASON JENNINGS L ([id number])[facility] ([facility])[address] [place] [address] CO2 [Moles/Vol] 23 mmol/L Normal 21-32 [facility] Comment on above: Performed By: #### 2 4362-6 ####JASON JENNINGS L ([id number])[facility] ([facility])[address] [place] [address] Creatinine [Mass/Vol] 6.43 mg/dL High 0.50-1.30 [facility] Comment on above: Performed By: #### 2 4362-6 ####JASON JENNINGS L ([id number])[facility] ([facility])[address] [place] [address] Glomerular filtration rate/1.73 sq M.predicted 9 mL/min/1.73m*2 Low >60 [facility] Comment on above: Result Comment: Calc ulations of estimated GFR are performed using the 2020 CKD-EPI Study Refit equation without the race variable for the IDMS-Traceable creatinine methods.https://jasn.asnjournals.org/content/early/ N.4097539312 Performed By: #### 2 4362-6 ####AJSON JENNINGS L ([id number])[facility] ([facility])[address] [place] [address] Glucose [Mass/Vol] 133 mg/dL High 74-99 [facility] Comment on above: Performed By: #### 2 4362-6 ####JASON Carrasquillo ([id number])[facility] ([facility])[address] [place] [address] Phosphate [Mass/Vol] 5.0 mg/dL High 2.5-4.9 [facility] Comment on above: Performed By: #### 2 4362-6 ####JASON Carrasquillo ([id number])[facility] ([facility])[address] [place] [address] Potassium [Moles/Vol] 3.8 mmol/L Normal 3.5-5.3 [facility] Comment on above: Performed By: #### 2 4362-6 ####JASON Carrasquillo ([id number])[facility] ([facility])[address] [place] [address] Sodium [Moles/Vol] 137 mmol/L Normal 136-145 [facility] Comment on above: Performed By: #### 2 4362-6 ####JASON Carrasquillo ([id number])[facility] ([facility])[address] [place] [address] Urea nitrogen [Mass/Vol] 85 mg/dL High 6-23 [facility] Comment on above: Performed By: #### 2 4362-6 ####JASON Carrasquillo ([id number])[facility] ([facility])[address] [place] [address] Tacrolimuson 11-22-2024 Tacrolimus (Bld) [Mass/Vol] 15.5 ng/mL High <=15.0 [facility] Comment on above: Order Comment: NOTE: Result was obtained using achemiluminescent microparticle immunoassay(CMIA) on the [employer] i system.Optimal therapeutic ranges for immunosuppressantdrugs depend upon an individualpatient's current clinical state, type oforgan transplant, time post-transplant,co-administration of other immunosuppressants,and other clinical factors. The results ofthis test should be correlated with additionalclinical and laboratory data before changesin treatment regimens are made. Performed By: #### 1 1253-2 ####JASON Carrasquillo ([id number])[facility] ([facility])[address] [place], [place] [id number] CMV DNA SAQIB+probe Qn (P)Orde red By: Mariely Bhat on 11-21-2024 CMV DNA SAQIB+probe (P) [Log units/Vol] [facility] Comment on above: Not calculated Laboratory comment Hugh (Report) Not detected Not Detected [facility] Reportable Range: 35-10,000,000 IU/mL. The sophie CMV test is an in vitro nucleic acid amplification test for the quantitation of Cytomegalovirus (CMV) DNA in human EDTA plasma on the sophie [employer]/8800 Systems. The analytical quantification range of this assay has been determined to be 35 to 10,000,000 IU/ml in plasma. Mutations within the highly-conserved regions of the CMV DNA polymerase (UL54) gene covered by sophie CMV may affect primers and/or probe binding resulting in the under-quantitation of virus or failure to detect the presence of virus. The sophie CMV mitigates this risk through the use of redundant amplification primers. Negative test results do not preclude CMV infection or tissue-invasive CMV disease, and test results should therefore not be the sole basis for patient management decisions If the assay DETECTED the presence of the virus but was not able to accurately quantify the number of copies, the test result will be reported as <35 Detected or >10,000,000 Detected. The sophie CMV is intended for use as an aid in the management of CMV in solid organ transplant patients and in hematopoietic stem cell transplant patients. In patients receiving anti-CMV therapy, serial DNA measurements can be used to assess viral response to treatment. The results from sophie CMV must be interpreted within the context of all relevant clinical and laboratory findings. This test is approved by the [place] Food and Drug Administration, and its performance characteristics verified by the Molecular Diagnostic Laboratory, Department of Pathology, [facility]. [facility] EBV DNA SAQIB+probe Qnon 11-21 EBV DNA SAQIB+probe (Unsp spec) [Log #/Vol] [facility] Work Phone: Comment on above: Not calculated Laboratory comment Hugh (Report) Not detected Not Detected [facility] Work Phone: Reportable Range: 35-100,000,000 IU/mL. The sophie EBV test is an in vitro nucleic acid amplification dual target assay for the quantitation of Joseluis-Argueta virus (EBV) DNA in human EDTA plasma on the sophie 6800/8800 Systems. The test employs a dual target virus specific approach from highly-conserved regions of the EBV located in the EBV EBNA-1 gene and the EBV BMRF gene. The analytical quantification range of this assay has been determined to be 35 to 100,000,000 IU/ml in plasma. As with any molecular test, mutations within the target regions of sophie EBV could affect primer and/or probe binding resulting in the under-quantitation of virus or failure to detect the presence of virus. If the assay DETECTED the presence of the virus but was not able to accurately quantify the number of copies, the test result will be reported as <35 Detected or >100,000,000 Detected. The sophie EBV test is intended for use as an aid in the management of EBV in transplant patients. In patients undergoing monitoring of EBV, serial DNA measurements can be used to indicate the need for potential treatment changes and to assess response to treatment. The results from sophie EBV are intended to be read and analyzed by a qualified licensed healthcare professional in conjunction with clinical signs and symptoms and relevant laboratory findings. Negative test results do not preclude EBV infection or EBV disease. Test results must not be the sole basis for patient management decisions. This test is approved by the [place] Food and Drug Administration, and its performance characteristics verified by the [facility] Diagnostic Laboratory, Department of Pathology, [facility]. [facility] Work Phone: [facility] Work Phone: BK virus DNA SAQIB+probe Qnon 11-19-2024 BK VIRUS LOG PCR Normal [facility] Comment on above: Order Comment: Repor table range: 21.5-100,000,000 IU/mLThe sophie BKV is an in vitro nucleic acid amplification test for the quantitation of BK virus (BKV) DNA in human EDTA plasma on the sophie 6800/8800 Systems. The test employs a dual target virus specific approach from highly-conserved regions of the BKV located in the BKV small t-antigen region and the BKV VP2 region. The analytical quantification range of this assay has been determined to be 21.5 to 100,000,000 IU/ml in plasma.As with any molecular test, mutations within the target regions of sophie BKV could affect primer and/or probe binding resulting in the under-quantitation of virus or failure to detect the presence of virus.If the assay DETECTED the presence of the virus, but was not able to accurately quantify the number of copies, the test result will be reported as <21.5 Detected or >100,000,000 Detected.The sophie BKV is intended for use as an aid in the management of BKV in transplant patients. In patients undergoing monitoring of BKV in EDTA plasma, serial DNA measurements can be used to indicate the need for potential treatment changes and to assess viral response to treatment. The results from sophie BKV are intended to be read and analyzed by a qualified licensed healthcare professional in conjunction with clinical signs and symptoms and relevant laboratory findings. Test results must not be the sole basis for patient management decisions.This test is approved by the [place] Food and Drug Administration, and its performance characteristics verified by the [facility] Diagnostic Laboratory, Department of Pathology, [facility]. Result Comment: Not calculated Performed By: #### 3 2284-2 ####JASON Carrasquillo ([id number])[facility] ([facility])[address] [place] [address] BKV DNA RESULT Not detected Normal Not Detected [facility] Comment on above: Order Comment: Repor table range: 21.5-100,000,000 IU/mLThe sophie BKV is an in vitro nucleic acid amplification test for the quantitation of BK virus (BKV) DNA in human EDTA plasma on the sophie 6800/8800 Systems. The test employs a dual target virus specific approach from highly-conserved regions of the BKV located in the BKV small t-antigen region and the BKV VP2 region. The analytical quantification range of this assay has been determined to be 21.5 to 100,000,000 IU/ml in plasma.As with any molecular test, mutations within the target regions of sophie BKV could affect primer and/or probe binding resulting in the under-quantitation of virus or failure to detect the presence of virus.If the assay DETECTED the presence of the virus, but was not able to accurately quantify the number of copies, the test result will be reported as <21.5 Detected or >100,000,000 Detected.The sophie BKV is intended for use as an aid in the management of BKV in transplant patients. In patients undergoing monitoring of BKV in EDTA plasma, serial DNA measurements can be used to indicate the need for potential treatment changes and to assess viral response to treatment. The results from sophie BKV are intended to be read and analyzed by a qualified licensed healthcare professional in conjunction with clinical signs and symptoms and relevant laboratory findings. Test results must not be the sole basis for patient management decisions.This test is approved by the [place] Food and Drug Administration, and its performance characteristics verified by the [facility] Diagnostic Laboratory, Department of Pathology, [facility]. Performed By: #### 3 2284-2 ####JASON Carrasquillo ([id number])[facility] ([facility])[address] [place] [address] CMV DNA SAQIB+probe Qn (P)on 0 11-19-2024 CMV DNA RESULT Not detected Normal Not Detected [facility] Comment on above: Order Comment: Repor table Range: 35-10,000,000 IU/mL.The sophie CMV test is an in vitro nucleic acid amplification test for the quantitation of Cytomegalovirus (CMV) DNA in human EDTA plasma on the sophie 6800/8800 Systems. The analytical quantification range of this assay has been determined to be 35 to 10,000,000 IU/ml in plasma.Mutations within the highly-conserved regions of the CMV DNA polymerase (UL54) gene covered by sophie CMV may affect primers and/or probe binding resulting in the under-quantitation of virus or failure to detect the presence of virus. The sophie CMV mitigates this risk through the use of redundant amplification primers. Negative test results do not preclude CMV infection or tissue-invasive CMV disease, and test results should therefore not be the sole basis for patient management decisionsIf the assay DETECTED the presence of the virus but was not able to accurately quantify the number of copies, the test result will be reported as <35 Detected or >10,000,000 Detected.The sophie CMV is intended for use as an aid in the management of CMV in solid organ transplant patients and in hematopoietic stem cell transplant patients. In patients receiving anti-CMV therapy, serial DNA measurements can be used to assess viral response to treatment. The results from sophie CMV must beinterpreted within the context of all relevant clinical and laboratory findings.This test is approved by the [place] Food and Drug Administration, and its performance characteristics verified by the [facility] Diagnostic Laboratory, Department of Pathology, [facility]. Performed By: #### 7 2493-0 ####JASNO Carrasquillo ([id number])[facility] ([facility])[address] [place] [address] CYTOMEGALOVIRUS DNA, PCR LOG IU/ML Normal [facility] Comment on above: Order Comment: Repor table Range: 35-10,000,000 IU/mL.The sophie CMV test is an in vitro nucleic acid amplification test for the quantitation of Cytomegalovirus (CMV) DNA in human EDTA plasma on the sophie 6800/8800 Systems. The analytical quantification range of this assay has been determined to be 35 to 10,000,000 IU/ml in plasma.Mutations within the highly-conserved regions of the CMV DNA polymerase (UL54) gene covered by sophie CMV may affect primers and/or probe binding resulting in the under-quantitation of virus or failure to detect the presence of virus. The sophie CMV mitigates this risk through the use of redundant amplification primers. Negative test results do not preclude CMV infection or tissue-invasive CMV disease, and test results should therefore not be the sole basis for patient management decisionsIf the assay DETECTED the presence of the virus but was not able to accurately quantify the number of copies, the test result will be reported as <35 Detected or >10,000,000 Detected.The sophie CMV is intended for use as an aid in the management of CMV in solid organ transplant patients and in hematopoietic stem cell transplant patients. In patients receiving anti-CMV therapy, serial DNA measurements can be used to assess viral response to treatment. The results from sophie CMV must beinterpreted within the context of all relevant clinical and laboratory findings.This test is approved by the [place] Food and Drug Administration, and its performance characteristics verified by the Molecular Diagnostic Laboratory, Department of Pathology, [facility]. Result Comment: Not calculated Performed By: #### 7 2493-0 ####JASON Carrasquillo ([id number])[facility] ([facility])[address] [place] [address] Coagulation tissue factor in ducedon 11-19-2024 PT Coag (PPP) [Time] 12.2 s Normal 9.8-12.4 [facility] Comment on above: Performed By: #### 5 902-2 ####JASON Carrasquillo ([id number])[facility] ([facility])[address] [place] [address] EBV DNA SAQIB+probe Qnon 11-19 EBV DNA RESULT Not detected Normal Not Detected [facility] Comment on above: Order Comment: Repor table Range: 35-100,000,000 IU/mL.The sophie EBV test is an in vitro nucleic acid amplification dual target assay for the quantitation of Joseluis-Argueta virus (EBV) DNA in human EDTA plasma on the sophie 6800/8800 Systems. The test employs a dual target virus specific approach from highly-conserved regions of the EBV located in the EBV EBNA-1gene and the EBV BMRF gene. The analytical quantification range of this assay has been determined to be 35 to 100,000,000 IU/ml in plasma.As with any molecular test, mutations within the target regions of sophie EBV could affect primer and/or probe binding resulting in the under-quantitation of virus or failure to detect the presence of virus.If the assay DETECTED the presence of the virus but was not able to accurately quantify the number of copies, the test result will be reported as <35 Detected or >100,000,000 Detected.The sophie EBV test is intended for use as an aid in the management of EBV in transplant patients. In patients undergoing monitoring of EBV, serial DNA measurements can be used to indicate the need for potential treatment changes and to assess response to treatment. The results from sophie EBV are intended to be read and analyzed by a qualified licensed healthcare professional in conjunction with clinical signs and symptoms and relevant laboratory findings. Negative test results do not preclude EBV infection or EBV disease. Test results must not be the sole basis for patient management decisions.This test is approved by the [place] Food and Drug Administration, and its performance characteristics verified by the [facility], Department of Pathology, [facility]. Performed By: #### 4 3730-1 ####JASON Carrasquillo ([id number])[facility] ([facility])[address] [place] [address] EBV PCR PLASMA LOG IU/ML Normal [facility] Comment on above: Order Comment: Repor table Range: 35-100,000,000 IU/mL.The sophie EBV test is an in vitro nucleic acid amplification dual target assay for the quantitation of Joseluis-Argueta virus (EBV) DNA in human EDTA plasma on the sophie [employer]/8800 Systems. The test employs a dual target virus specific approach from highly-conserved regions of the EBV located in the EBV EBNA-1gene and the EBV BMRF gene. The analytical quantification range of this assay has been determined to be 35 to 100,000,000 IU/ml in plasma.As with any molecular test, mutations within the target regions of sophie EBV could affect primer and/or probe binding resulting in the under-quantitation of virus or failure to detect the presence of virus.If the assay DETECTED the presence of the virus but was not able to accurately quantify the number of copies, the test result will be reported as <35 Detected or >100,000,000 Detected.The sophie EBV test is intended for use as an aid in the management of EBV in transplant patients. In patients undergoing monitoring of EBV, serial DNA measurements can be used to indicate the need for potential treatment changes and to assess response to treatment. The results from sophie EBV are intended to be read and analyzed by a qualified licensed healthcare professional in conjunction with clinical signs and symptoms and relevant laboratory findings. Negative test results do not preclude EBV infection or EBV disease. Test results must not be the sole basis for patient management decisions.This test is approved by the [place] Food and Drug Administration, and its performance characteristics verified by the [facility], Department of Pathology, [facility]. Result Comment: Not calculated Performed By: #### 4 3730-1 ####JASON Carrasquillo ([id number])[facility] ([facility])[id number] [place] [address] HIV 1 RNAon 11-19-2024 HIV 1 RNA Probe amp Ql (S/P donor) Comment Normal Non Reactive [facility] Comment on above: Order Comment: Perfo rmed at: 01 - [id number] [id number] Director: [facility], Phone: [phone] Result Comment: Non- Reactive for HIV RNA Non-Reactive for HCV RNA Non-Reactive for HBV DNATest performed with [employer] Ultrio Elite Assay Kit. Performed By: #### 4 7359-5 ####[facility]) ([id number])1447 [place] [address] HLA TRANSPLANT ANTIBODY PANE Jc 11-19-2024 HLA RESULTS See Attached [facility] Comment on above: Order Comment: Test performed at:[facility] [address] [place] [address] Performed By: #### H PAULTI ####ANTHONY Dunbar ([id number]) [facility] ([facility])[address] [place] [address] HLA-A+B+C (class I) Ab (S) [facility] Comment on above: Order Comment: Test performed at:[facility], [address] [place] [address] Performed By: #### H LANTI ####ANTHONY HEREDIA S ([id number]) [facility] ([facility])[address] [place], [place] [id number] HLA-DP+DQ+DR (class II) Ab (S) [facility] Comment on above: Order Comment: Test performed at:[facility], [address] [place] [address] Performed By: #### H LANTI ####ANTHONY HEREDIA S ([id number]) [facility] ([facility])[address] [place] [address] PT Coag (PPP) [Time]on 11-19 INR Coag (PPP) [Relative time] 1.1 {INR} 0.9 - 1.[address] [facility] Interpretation and review of laboratory results [facility] INR Coag (PPP) [Relative time] 1.1 Normal 0.9-1.1 [facility] Comment on above: Performed By: #### 5 902-2 ####JASON Carrasquillo ([id number])[facility] ([facility])[address] [place] [address] Proteinon 11-19-2024 Protein Qn (U) 76 mg/dL High 5-25 [facility] Comment on above: Performed By: #### 2 7298-9 ####JASON Carrasquillo ([id number])[facility] ([facility])[address] [place] [address] Protein Qn (U)on 11-19-2024 Creatinine (U) [Mass/Vol] 148.9 mg/dL 20.0 - 370.0 mg/dL [facility] Interpretation and review of laboratory results Abnormal [facility] Protein/Creatinine (U) [Mass ratio] 0.51 mg/g High [facility] Creatinine (U) [Mass/Vol] 148.9 mg/dL Normal 20.0-370.0 [facility] Comment on above: Performed By: #### 2 7298-9 ####JASON Carrasquillo ([id number])[facility] ([facility])[address] [place] [address] Protein/Creatinine (U) [Mass ratio] 0.51 mg/mg Creat High 0.00-0.17 [facility] Comment on above: Performed By: #### 2 7298-9 ####JASON Carrasquillo ([id number])[facility] ([facility])[address] [place] [address] Protein, Urine Randomon 11-07 Protein Qn (U) 76 mg/dL High 5 - 25 mg/dL [facility] Protime-INRon 11-19-2024 PT Coag (PPP) [Time] 12.2 s [facility] CBC panel Auto (Bld)on 11-17 Erythrocyte distribution width (RBC) [Ratio] 16.8 % High 11.5 - 14.5 % [facility] Hematocrit (Bld) [Volume fraction] 28.1 % Low 41.0 - 52.0 % [facility] Hemoglobin (Bld) [Mass/Vol] 8.3 g/dL Low 13.5 - 17.5 g/dL [facility] Interpretation and review of laboratory results Abnormal [facility] MCH (RBC) [Entitic mass] 23.8 pg Low 26.0 - 34.[address] [facility] MCHC (RBC) [Mass/Vol] 29.5 g/dL Low 32.0 - 36.0 g/dL [facility] MCV (RBC) [Entitic vol] 81 fL 80 - [address] [facility] Nucleated RBC/100 WBC (Bld) [Ratio] 0 % [facility] Platelets (Bld) [#/Vol] 152 10*3/uL [facility] RBC (Bld) [#/Vol] 3.49 10*6/uL Low [facility] WBC (Bld) [#/Vol] 3.7 10*3/uL Low [facility] Erythrocyte distribution width (RBC) [Ratio] 16.8 % High 11.5-14.5 [facility] Comment on above: Order Comment: Befor e Hemodialysis Performed By: #### 5 8410-2 ####JASON Carrasquillo ([id number])[facility] ([facility])[address] [place] [address] Hematocrit (Bld) [Volume fraction] 28.1 % Low 41.0-52.0 [facility] Comment on above: Order Comment: Befor e Hemodialysis Performed By: #### 5 8410-2 ####JASON Carrasquillo ([id number])[facility] ([facility])[address] [place] [address] Hemoglobin (Bld) [Mass/Vol] 8.3 g/dL Low 13.5-17.5 [facility] Comment on above: Order Comment: Befor e Hemodialysis Performed By: #### 5 8410-2 ####JASON Carrasquillo ([id number])[facility] ([facility])[address] [place] [address] MCH (RBC) [Entitic mass] 23.8 pg Low 26.0-34.0 [facility] Comment on above: Order Comment: Befor e Hemodialysis Performed By: #### 5 8410-2 ####JASON Carrasquillo ([id number])[facility] ([facility])[address] [place] [address] MCHC (RBC) [Mass/Vol] 29.5 g/dL Low 32.0-36.0 [facility] Comment on above: Order Comment: Befor e Hemodialysis Performed By: #### 5 8410-2 ####JASON Carrasquillo ([id number])[facility] ([facility])[address] [place] [address] MCV (RBC) [Entitic vol] 81 fL Normal 80-100 [facility] Comment on above: Order Comment: Befor e Hemodialysis Performed By: #### 5 8410-2 ####JASON Carrasquillo ([id number])[facility] ([facility])[address] [place] [address] Nucleated RBC/100 WBC (Bld) [Ratio] 0.0 /100 WBCs Normal 0.0-0.0 [facility] Comment on above: Order Comment: Befor e Hemodialysis Performed By: #### 5 8410-2 ####JASON Carrasquillo ([id number])[facility] ([facility])[address] [place] [address] Platelets (Bld) [#/Vol] 152 x10*3/uL Normal 150-450 [facility] Comment on above: Order Comment: Befor e Hemodialysis Performed By: #### 5 8410-2 ####JASON Carrasquillo ([id number])[facility] ([facility])[address] [place] [address] RBC (Bld) [#/Vol] 3.49 x10*6/uL Low 4.50-5.90 [facility] Comment on above: Order Comment: Befor e Hemodialysis Performed By: #### 5 8410-2 ####JASON Carrasquillo ([id number])[facility] ([facility])[address] [place] [address] WBC (Bld) [#/Vol] 3.7 x10*3/uL Low 4.4-11.3 [facility] Comment on above: Order Comment: Befor e Hemodialysis Performed By: #### 5 8410-2 ####JASON Carrasquillo ([id number])[facility] ([facility])[address] [place] [address] Magnesiumon 11-17-2024 Magnesium [Mass/Vol] 1.95 mg/dL 1.60 - 2.40 mg/dL [facility] Magnesium [Mass/Vol] 1.95 mg/dL Normal 1.60-2.40 [facility] Comment on above: Order Comment: Befor e Hemodialysis Performed By: #### 1 9123-9 ####JASON Carrasquillo ([id number])[facility] ([facility])[address] [place] [address] Magnesium [Mass/Vol]on 11-17 Interpretation and review of laboratory results Normal [facility] No Panel Informationon 11-[address] [facility] Renal function 2000 panelon 11-17-2024 Albumin BCP dye [Mass/Vol] 3.4 g/dL 3.4 - 5.0 g/dL [facility] Anion gap [Moles/Vol] 16 mmol/L 10 - 20 mmol/L [facility] Calcium [Mass/Vol] 8.3 mg/dL Low 8.6 - 10. 6 mg/dL [facility] Chloride [Moles/Vol] 101 mmol/L 98 - 10 7 mmol/L [facility] CO2 [Moles/Vol] 24 mmol/L 21 - 32 mmol/L [facility] Creatinine [Mass/Vol] 4.31 mg/dL High 0.50 - 1.30 mg/dL [facility] GFR/1.73 sq M.predicted among non-blacks MDRD (S/P/Bld) [Vol rate/Area] 15 mL/min/{1.73_m2} Low - PINF [facility] Comment on above: Calculations of cleopatra mated GFR are performed using the 2020 CKD-EPI Study Refit equation without the race variable for the IDMS-Traceable creatinine methods. https://jasn.asnjournals.org/content/early//ASN.784306 3140 Glucose [Mass/Vol] 203 mg/dL High 74 - 99 mg/dL [facility] Interpretation and review of laboratory results Abnormal [facility] Phosphate [Mass/Vol] 4.3 mg/dL 2.5 - 4 .9 mg/dL [facility] Potassium [Moles/Vol] 4 mmol/L 3.5 - 5.3 mmol/L [facility] Sodium [Moles/Vol] 137 mmol/L 136 - 145 mmol/L [facility] Urea nitrogen [Mass/Vol] 54 mg/dL High 6 - 23 mg/dL [facility] Albumin BCP dye [Mass/Vol] 3.4 g/dL Normal 3.4-5.0 [facility] Comment on above: Order Comment: Befor e Hemodialysis Performed By: #### 2 4362-6 ####JASON Carrasquillo ([id number])[facility] ([facility])[address] [place] [address] Anion gap [Moles/Vol] 16 mmol/L Normal 10-20 [facility] Comment on above: Order Comment: Befor e Hemodialysis Performed By: #### 2 4362-6 ####JASON CLARKMOTZGREG L ([id number])[facility] ([facility])[address] [place] [address] Calcium [Mass/Vol] 8.3 mg/dL Low 8.6-10.6 [facility] Comment on above: Order Comment: Befor e Hemodialysis Performed By: #### 2 4362-6 ####JASON CLARKMOTZGREG L ([id number])[facility] ([facility])[address] [place] [address] Chloride [Moles/Vol] 101 mmol/L Normal 98-107 [facility] Comment on above: Order Comment: Befor e Hemodialysis Performed By: #### 2 4362-6 ####JASON Carrasquillo ([id number])[facility] ([facility])[address] [place] [address] CO2 [Moles/Vol] 24 mmol/L Normal 21-32 [facility] Comment on above: Order Comment: Befor e Hemodialysis Performed By: #### 2 4362-6 ####JASON Carrasquillo ([id number])[facility] ([facility])[address] [place] [address] Creatinine [Mass/Vol] 4.31 mg/dL High 0.50-1.30 [facility] Comment on above: Order Comment: Befor e Hemodialysis Performed By: #### 2 4362-6 ####JASON Carrasquillo ([id number])[facility] ([facility])[address] [place] [address] Glomerular filtration rate/1.73 sq M.predicted 15 mL/min/1.73m*2 Low >60 [facility] Comment on above: Order Comment: Befor e Hemodialysis Result Comment: Calc ulations of estimated GFR are performed using the 2020 CKD-EPI Study Refit equation without the race variable for the IDMS-Traceable creatinine methods.https://jasn.asnjournals.org/content/early// N.7574455361 Performed By: #### 2 4362-6 ####JASON Carrasquillo ([id number])[facility] ([facility])[address] [place] [address] Glucose [Mass/Vol] 203 mg/dL High 74-99 [facility] Comment on above: Order Comment: Befor e Hemodialysis Performed By: #### 2 4362-6 ####JASON Carrasquillo ([id number])[facility] ([facility])[address] [place] [address] Phosphate [Mass/Vol] 4.3 mg/dL Normal 2.5-4.9 [facility] Comment on above: Order Comment: Befor e Hemodialysis Performed By: #### 2 4362-6 ####JASON Carrasquillo ([id number])[facility] ([facility])[address] [place] [address] Potassium [Moles/Vol] 4.0 mmol/L Normal 3.5-5.3 [facility] Comment on above: Order Comment: Befor e Hemodialysis Performed By: #### 2 4362-6 ####JASON Carrasquillo ([id number])[facility] ([facility])[address] [place] [address] Sodium [Moles/Vol] 137 mmol/L Normal 136-145 [facility] Comment on above: Order Comment: Befor e Hemodialysis Performed By: #### 2 4362-6 ####JASON Carrasquillo ([id number])[facility] ([facility])[address] [place] [address] Urea nitrogen [Mass/Vol] 54 mg/dL High 6-23 [facility] Comment on above: Order Comment: Befor e Hemodialysis Performed By: #### 2 4362-6 ####JASON Carrasquillo ([id number])[facility] ([facility])[address] [place] [address] Tacrolimuson 11-17-2024 Tacrolimus (Bld) [Mass/Vol] 5.0 ng/mL Normal <=15.0 [facility] Comment on above: Order Comment: Befor e HemodialysisNOTE: Result was obtained using achemiluminescent microparticle immunoassay(CMIA) on the [employer] system.Optimal therapeutic ranges for immunosuppressantdrugs depend upon an individualpatient's current clinical state, type oforgan transplant, time post-transplant,co-administration of other immunosuppressants,and other clinical factors. The results ofthis test should be correlated with additionalclinical and laboratory data before changesin treatment regimens are made. Performed By: #### 1 1253-2 ####JASON Carrasquillo ([id number])[facility] ([facility])[address] [place] [address] Tacrolimus (Bld) [Mass/Vol]o n 11-17-2024 Interpretation and review of laboratory results Normal [facility] Work Phone: NOTE: Result was obtained using a chemiluminescent microparticle immunoassay (CMIA) on the [employer] system. Optimal therapeutic ranges for immunosuppressant drugs depend upon an individual patient's current clinical state, type of organ transplant, time post-transplant, co-administration of other immunosuppressants, and other clinical factors. The results of this test should be correlated with additional clinical and laboratory data before changes in treatment regimens are made. [facility] Work Phone: [facility] Work Phone: Tacrolimus levelon Tacrolimus (Bld) [Mass/Vol] 5 ng/mL NINF - 15.0 ng/mL [facility] Work Phone: CBC panel Auto (Bld)on 11-15 Erythrocyte distribution width (RBC) [Ratio] 17 % High 11.5 - 14.5 % [facility] Hematocrit (Bld) [Volume fraction] 26.6 % Low 41.0 - 52.0 % [facility] Hemoglobin (Bld) [Mass/Vol] 7.9 g/dL Low 13.5 - 17.5 g/dL [facility] Interpretation and review of laboratory results Abnormal [facility] MCH (RBC) [Entitic mass] 24.2 pg Low 26.0 - 34.[address] [facility] MCHC (RBC) [Mass/Vol] 29.7 g/dL Low 32.0 - 36.0 g/dL [facility] MCV (RBC) [Entitic vol] 82 fL 80 - [address] [facility] Nucleated RBC/100 WBC (Bld) [Ratio] 0 % [facility] Platelets (Bld) [#/Vol] 125 10*3/uL Low [facility] RBC (Bld) [#/Vol] 3.26 10*6/uL [facility] WBC (Bld) [#/Vol] 3.4 10*3/uL [facility] Erythrocyte distribution width (RBC) [Ratio] 17.0 % High 11.5-14.5 [facility] Comment on above: Order Comment: Befor e Hemodialysis Performed By: #### 5 8410-2 ####JASON Carrasquillo ([id number])[facility] ([facility])[address] [place] [address] Hematocrit (Bld) [Volume fraction] 26.6 % Low 41.0-52.0 [facility] Comment on above: Order Comment: Befor e Hemodialysis Performed By: #### 5 8410-2 ####JASON Carrasquillo ([id number])[facility] ([facility])[address] [place] [address] Hemoglobin (Bld) [Mass/Vol] 7.9 g/dL Low 13.5-17.5 [facility] Comment on above: Order Comment: Befor e Hemodialysis Performed By: #### 5 8410-2 ####JASON Carrasquillo ([id number])[facility] ([facility])[address] [place] [address] MCH (RBC) [Entitic mass] 24.2 pg Low 26.0-34.0 [facility] Comment on above: Order Comment: Befor e Hemodialysis Performed By: #### 5 8410-2 ####JASON Carrasquillo ([id number])[facility] ([facility])[address] [place] [address] MCHC (RBC) [Mass/Vol] 29.7 g/dL Low 32.0-36.0 [facility] Comment on above: Order Comment: Befor e Hemodialysis Performed By: #### 5 8410-2 ####JASON Carrasquillo ([id number])[facility] ([facility])[address] [place] [address] MCV (RBC) [Entitic vol] 82 fL Normal 80-100 [facility] Comment on above: Order Comment: Befor e Hemodialysis Performed By: #### 5 8410-2 ####JASON Carrasquillo ([id number])[facility] ([facility])[address] [place] [address] Nucleated RBC/100 WBC (Bld) [Ratio] 0.0 /100 WBCs Normal 0.0-0.0 [facility] Comment on above: Order Comment: Befor e Hemodialysis Performed By: #### 5 8410-2 ####JASON Carrasquillo ([id number])[facility] ([facility])[address] [place] [address] Platelets (Bld) [#/Vol] 125 x10*3/uL Low 150-450 [facility] Comment on above: Order Comment: Befor e Hemodialysis Performed By: #### 5 8410-2 ####JASON Carrasquillo ([id number])[facility] ([facility])[address] [place] [address] RBC (Bld) [#/Vol] 3.26 x10*6/uL Low 4.50-5.90 [facility] Comment on above: Order Comment: Befor e Hemodialysis Performed By: #### 5 8410-2 ####JASON Carrasquillo ([id number])[facility] ([facility])[address] [place] [address] WBC (Bld) [#/Vol] 3.4 x10*3/uL Low 4.4-11.3 [facility] Comment on above: Order Comment: Befor e Hemodialysis Performed By: #### 5 8410-2 ####JASON Carrasquillo ([id number])[facility] ([facility])[address] [place] [address] Glucose Test strip manual (B ld) [Mass/Vol]on 11-15-2024 Glucose [Mass/Vol] 138 mg/dL High 74 - 99 mg/dL [facility] Interpretation and review of laboratory results Abnormal [facility] Glucose [Mass/Vol] 138 mg/dL High 74-99 [facility] Comment on above: Performed By: #### 2 341-6 ####JASON Carrasquillo ([id number])[facility] ([facility])[address] [place] [address] Laboratory - Chemistry and C hemistry - challengeon 11-15-2024 Magnesium [Mass/Vol] 2.1 mg/dL 1.60 - 2.40 mg/dL [facility] Laboratory - Drug toxicology Ordered By: Anibal Sarkar on 11-15-2024 Tacrolimus (Bld) [Mass/Vol] 3.8 ng/mL NINF - 15.0 ng/mL [facility] Magnesiumon 11-15-2024 Magnesium [Mass/Vol] 2.10 mg/dL Normal 1.60-2.40 [facility] Comment on above: Order Comment: Befor e Hemodialysis Performed By: #### 1 9123-9 ####JASON Carrasquillo ([id number])[facility] ([facility])[id number] [place] [address] Magnesium [Mass/Vol]on 11-15 Interpretation and review of laboratory results Normal [facility] No Panel Informationon 11-[address] [facility] Renal function 2000 panelon 11-15-2024 Albumin BCP dye [Mass/Vol] 3.4 g/dL 3.4 - 5.0 g/dL [facility] Anion gap [Moles/Vol] 15 mmol/L 10 - 20 mmol/L [facility] Calcium [Mass/Vol] 8.3 mg/dL Low 8.6 - 10. 6 mg/dL [facility] Chloride [Moles/Vol] 101 mmol/L 98 - 10 7 mmol/L [facility] CO2 [Moles/Vol] 23 mmol/L 21 - 32 mmol/L [facility] Creatinine [Mass/Vol] 4.71 mg/dL High 0.50 - 1.30 mg/dL [facility] GFR/1.73 sq M.predicted among non-blacks MDRD (S/P/Bld) [Vol rate/Area] 14 mL/min/{1.73_m2} Low - PINF [facility] Comment on above: Calculations of cleopatra mated GFR are performed using the 2020 CKD-EPI Study Refit equation without the race variable for the IDMS-Traceable creatinine methods. https://jasn.asnjournals.org/content/early/ASN.030806 6414 Glucose [Mass/Vol] 549 mg/dL Critically high 74 - 99 mg/d L [facility] Interpretation and review of laboratory results Abnormal [facility] Phosphate [Mass/Vol] 4.9 mg/dL 2.5 - 4 .9 mg/dL [facility] Potassium [Moles/Vol] 5 mmol/L 3.5 - 5.3 mmol/L [facility] Sodium [Moles/Vol] 134 mmol/L Low 136 - 145 mmol/L [facility] Urea nitrogen [Mass/Vol] 72 mg/dL High 6 - 23 mg/dL [facility] Albumin BCP dye [Mass/Vol] 3.4 g/dL Normal 3.4-5.0 [facility] Comment on above: Order Comment: Befor e Hemodialysis Performed By: #### 2 4362-6 ####JASON Carrasquillo ([id number])[facility] ([facility])[address] [place] [address] Anion gap [Moles/Vol] 15 mmol/L Normal 10-20 [facility] Comment on above: Order Comment: Befor e Hemodialysis Performed By: #### 2 4362-6 ####JASON Carrasquillo ([id number])[facility] ([facility])[address] [place] [address] Calcium [Mass/Vol] 8.3 mg/dL Low 8.6-10.6 [facility] Comment on above: Order Comment: Befor e Hemodialysis Performed By: #### 2 4362-6 ####JASON Carrasquillo ([id number])[facility] ([facility])[address] [place] [address] Chloride [Moles/Vol] 101 mmol/L Normal 98-107 [facility] Comment on above: Order Comment: Befor e Hemodialysis Performed By: #### 2 4362-6 ####JASON Carrasquillo ([id number])[facility] ([facility])[address] [place] [address] CO2 [Moles/Vol] 23 mmol/L Normal 21-32 [facility] Comment on above: Order Comment: Befor e Hemodialysis Performed By: #### 2 4362-6 ####JASON Carrasquillo ([id number])[facility] ([facility])[address] [place] [address] Creatinine [Mass/Vol] 4.71 mg/dL High 0.50-1.30 [facility] Comment on above: Order Comment: Befor e Hemodialysis Performed By: #### 2 4362-6 ####JASON Carrasquillo ([id number])[facility] ([facility])[address] [place] [address] Glomerular filtration rate/1.73 sq M.predicted 14 mL/min/1.73m*2 Low >60 [facility] Comment on above: Order Comment: Befor e Hemodialysis Result Comment: Calc ulations of estimated GFR are performed using the 2020 CKD-EPI Study Refit equation without the race variable for the IDMS-Traceable creatinine methods.https://jasn.asnjournals.org/content/early// N.8657631215 Performed By: #### 2 4362-6 ####JASON Carrasquillo ([id number])[facility] ([facility])[address] [place] [address] Glucose [Mass/Vol] 549 mg/dL Critically high 74-99 [facility] Comment on above: Order Comment: Befor e Hemodialysis Performed By: #### 2 4362-6 ####JASON Carrasquillo ([id number])[facility] ([facility])[address] [place] [address] Phosphate [Mass/Vol] 4.9 mg/dL Normal 2.5-4.9 [facility] Comment on above: Order Comment: Befor e Hemodialysis Performed By: #### 2 4362-6 ####JASON Carrasquillo ([id number])[facility] ([facility])[address] [place] [address] Potassium [Moles/Vol] 5.0 mmol/L Normal 3.5-5.3 [facility] Comment on above: Order Comment: Befor e Hemodialysis Performed By: #### 2 4362-6 ####JASON Carrasquillo ([id number])[facility] ([facility])[address] [place] [address] Sodium [Moles/Vol] 134 mmol/L Low 136-145 [facility] Comment on above: Order Comment: Befor e Hemodialysis Performed By: #### 2 4362-6 ####JASON Carrasquillo ([id number])[facility] ([facility])[address] [place] [address] Urea nitrogen [Mass/Vol] 72 mg/dL High 6-23 [facility] Comment on above: Order Comment: Befor e Hemodialysis Performed By: #### 2 4362-6 ####JASON Carrasquillo ([id number])[facility] ([facility])[id number] [place] [address] Tacrolimuson 11-15-2024 Tacrolimus (Bld) [Mass/Vol] 3.8 ng/mL Normal <=15.0 [facility] Comment on above: Order Comment: Befor e HemodialysisNOTE: Result was obtained using achemiluminescent microparticle immunoassay(CMIA) on the [employer] system.Optimal therapeutic ranges for immunosuppressantdrugs depend upon an individualpatient's current clinical state, type oforgan transplant, time post-transplant,co-administration of other immunosuppressants,and other clinical factors. The results ofthis test should be correlated with additionalclinical and laboratory data before changesin treatment regimens are made. Performed By: #### 1 1253-2 ####JASON Carrasquillo ([id number])[facility] ([facility])[address] [place] [address] Tacrolimus (Bld) [Mass/Vol]O rdered By: Anibal Sarkar on 11-15-2024 Interpretation and review of laboratory results Normal [facility] NOTE: Result was obtained using a chemiluminescent microparticle immunoassay (CMIA) on the [employer] i system. Optimal therapeutic ranges for immunosuppressant drugs depend upon an individual patient's current clinical state, type of organ transplant, time post-transplant, co-administration of other immunosuppressants, and other clinical factors. The results of this test should be correlated with additional clinical and laboratory data before changes in treatment regimens are made. [facility] CBC panel Auto (Bld)on 11-12 Erythrocyte distribution width (RBC) [Ratio] 17.1 % High 11.5 - 14.5 % [facility] Hematocrit (Bld) [Volume fraction] 27.3 % Low 41.0 - 52.0 % [facility] Hemoglobin (Bld) [Mass/Vol] 8.3 g/dL Low 13.5 - 17.5 g/dL [facility] Interpretation and review of laboratory results Abnormal [facility] MCH (RBC) [Entitic mass] 24.8 pg Low 26.0 - 34.[address] [facility] MCHC (RBC) [Mass/Vol] 30.4 g/dL Low 32.0 - 36.0 g/dL [facility] MCV (RBC) [Entitic vol] 82 fL 80 - [address] [facility] Nucleated RBC/100 WBC (Bld) [Ratio] 0 % [facility] Platelets (Bld) [#/Vol] 130 10*3/uL Low [facility] RBC (Bld) [#/Vol] 3.35 10*6/uL [facility] WBC (Bld) [#/Vol] 3.2 10*3/uL [facility] Erythrocyte distribution width (RBC) [Ratio] 17.1 % High 11.5-14.5 [facility] Comment on above: Order Comment: Befor e Hemodialysis Performed By: #### 5 8410-2 ####JASON Carrasquillo ([id number])[facility] ([facility])[address] [place] [address] Hematocrit (Bld) [Volume fraction] 27.3 % Low 41.0-52.0 [facility] Comment on above: Order Comment: Befor e Hemodialysis Performed By: #### 5 8410-2 ####JASON Carrasquillo ([id number])[facility] ([facility])[address] [place] [address] Hemoglobin (Bld) [Mass/Vol] 8.3 g/dL Low 13.5-17.5 [facility] Comment on above: Order Comment: Befor e Hemodialysis Performed By: #### 5 8410-2 ####JASON Carrasquillo ([id number])[facility] ([facility])[address] [place] [address] MCH (RBC) [Entitic mass] 24.8 pg Low 26.0-34.0 [facility] Comment on above: Order Comment: Befor e Hemodialysis Performed By: #### 5 8410-2 ####JASON Carrasquillo ([id number])[facility] ([facility])[address] [place] [address] MCHC (RBC) [Mass/Vol] 30.4 g/dL Low 32.0-36.0 [facility] Comment on above: Order Comment: Befor e Hemodialysis Performed By: #### 5 8410-2 ####JASON Carrasquillo ([id number])[facility] ([facility])[address] [place] [address] MCV (RBC) [Entitic vol] 82 fL Normal 80-100 [facility] Comment on above: Order Comment: Befor e Hemodialysis Performed By: #### 5 8410-2 ####JASON Carrasquillo ([id number])[facility] ([facility])[address] [place] [address] Nucleated RBC/100 WBC (Bld) [Ratio] 0.0 /100 WBCs Normal 0.0-0.0 [facility] Comment on above: Order Comment: Befor e Hemodialysis Performed By: #### 5 8410-2 ####JASON Carrasquillo ([id number])[facility] ([facility])[address] [place] [address] Platelets (Bld) [#/Vol] 130 x10*3/uL Low 150-450 [facility] Comment on above: Order Comment: Befor e Hemodialysis Performed By: #### 5 8410-2 ####JASON Carrasquillo ([id number])[facility] ([facility])[address] [place] [address] RBC (Bld) [#/Vol] 3.35 x10*6/uL Low 4.50-5.90 [facility] Comment on above: Order Comment: Befor e Hemodialysis Performed By: #### 5 8410-2 ####JASON Carrasquillo ([id number])[facility] ([facility])[address] [place] [address] WBC (Bld) [#/Vol] 3.2 x10*3/uL Low 4.4-11.3 [facility] Comment on above: Order Comment: Befor e Hemodialysis Performed By: #### 5 8410-2 ####JASON Carrasquillo ([id number])[facility] ([facility])[address] [place] [address] Laboratory - Chemistry and C hemistry - challengeon 11-12-2024 Magnesium [Mass/Vol] 1.95 mg/dL 1.60 - 2.40 mg/dL [facility] Laboratory - Drug toxicology Ordered By: Marianna Hussein on 11-12-2024 Tacrolimus (Bld) [Mass/Vol] 9.3 ng/mL NINF - 15.0 ng/mL [facility] Magnesiumon 11-12-2024 Magnesium [Mass/Vol] 1.95 mg/dL Normal 1.60-2.40 [facility] Comment on above: Order Comment: Befor e Hemodialysis Performed By: #### 1 9123-9 ####JASON Carrasquillo ([id number])[facility] ([facility])[address] [place] [address] Magnesium [Mass/Vol]on 11-12 Interpretation and review of laboratory results Normal [facility] No Panel Informationon 11-[address] [facility] Renal function 2000 panelon 11-12-2024 Albumin BCP dye [Mass/Vol] 3.3 g/dL Low 3.4 - 5.0 g/dL [facility] Anion gap [Moles/Vol] 18 mmol/L 10 - 20 mmol/L [facility] Calcium [Mass/Vol] 7.7 mg/dL Low 8.6 - 10. 6 mg/dL [facility] Chloride [Moles/Vol] 99 mmol/L 98 - 10 7 mmol/L [facility] CO2 [Moles/Vol] 22 mmol/L 21 - 32 mmol/L [facility] Creatinine [Mass/Vol] 6.09 mg/dL High 0.50 - 1.30 mg/dL [facility] GFR/1.73 sq M.predicted among non-blacks MDRD (S/P/Bld) [Vol rate/Area] 10 mL/min/{1.73_m2} Low - PINF [facility] Comment on above: Calculations of cleopatra mated GFR are performed using the 2020 CKD-EPI Study Refit equation without the race variable for the IDMS-Traceable creatinine methods. https://jasn.asnjournals.org/content/early//ASN.357860 6668 Glucose [Mass/Vol] 379 mg/dL High 74 - 99 mg/dL [facility] Interpretation and review of laboratory results Abnormal [facility] Phosphate [Mass/Vol] 5.2 mg/dL High 2.5 - 4 .9 mg/dL [facility] Potassium [Moles/Vol] 5.6 mmol/L High 3.5 - 5.3 mmol/L [facility] Sodium [Moles/Vol] 133 mmol/L Low 136 - 145 mmol/L [facility] Urea nitrogen [Mass/Vol] 73 mg/dL High 6 - 23 mg/dL [facility] Albumin BCP dye [Mass/Vol] 3.3 g/dL Low 3.4-5.0 [facility] Comment on above: Order Comment: Befor e Hemodialysis Performed By: #### 2 4362-6 ####JASON Carrasquillo ([id number])[facility] ([facility])[address] [place] [address] Anion gap [Moles/Vol] 18 mmol/L Normal 10-20 [facility] Comment on above: Order Comment: Befor e Hemodialysis Performed By: #### 2 4362-6 ####JASON Carrasquillo ([id number])[facility] ([facility])[address] [place] [address] Calcium [Mass/Vol] 7.7 mg/dL Low 8.6-10.6 [facility] Comment on above: Order Comment: Befor e Hemodialysis Performed By: #### 2 4362-6 ####JASON Carrasquillo ([id number])[facility] ([facility])[address] [place] [address] Chloride [Moles/Vol] 99 mmol/L Normal 98-107 [facility] Comment on above: Order Comment: Befor e Hemodialysis Performed By: #### 2 4362-6 ####JASON JENNINGS L ([id number])[facility] ([facility])[address] [place] [address] CO2 [Moles/Vol] 22 mmol/L Normal 21-32 [facility] Comment on above: Order Comment: Befor e Hemodialysis Performed By: #### 2 4362-6 ####JSAON JENNINGS L ([id number])[facility] ([facility])[address] [place] [address] Creatinine [Mass/Vol] 6.09 mg/dL High 0.50-1.30 [facility] Comment on above: Order Comment: Befor e Hemodialysis Performed By: #### 2 4362-6 ####JAOSN JENNINGS L ([id number])[facility] ([facility])[address] [place] [address] Glomerular filtration rate/1.73 sq M.predicted 10 mL/min/1.73m*2 Low >60 [facility] Comment on above: Order Comment: Befor e Hemodialysis Result Comment: Calc ulations of estimated GFR are performed using the 2020 CKD-EPI Study Refit equation without the race variable for the IDMS-Traceable creatinine methods.https://jasn.asnjournals.org/content/early/ N.6990581525 Performed By: #### 2 4362-6 ####JASON JENNINGS L ([id number])[facility] ([facility])[address] [place] [address] Glucose [Mass/Vol] 379 mg/dL High 74-99 [facility] Comment on above: Order Comment: Befor e Hemodialysis Performed By: #### 2 4362-6 ####JASON Carrasquillo ([id number])[facility] ([facility])[address] [place] [address] Phosphate [Mass/Vol] 5.2 mg/dL High 2.5-4.9 [facility] Comment on above: Order Comment: Befor e Hemodialysis Performed By: #### 2 4362-6 ####JASON Carrasquillo ([id number])[facility] ([facility])[address] [place] [address] Potassium [Moles/Vol] 5.6 mmol/L High 3.5-5.3 [facility] Comment on above: Order Comment: Befor e Hemodialysis Performed By: #### 2 4362-6 ####JASON Carrasquillo ([id number])[facility] ([facility])[address] [place] [address] Sodium [Moles/Vol] 133 mmol/L Low 136-145 [facility] Comment on above: Order Comment: Befor e Hemodialysis Performed By: #### 2 4362-6 ####JASON Carrasquillo ([id number])[facility] ([facility])[address] [place] [address] Urea nitrogen [Mass/Vol] 73 mg/dL High 6-23 [facility] Comment on above: Order Comment: Befor e Hemodialysis Performed By: #### 2 4362-6 ####JASON Carrasquillo ([id number])[facility] ([facility])[address] [place] [address] Tacrolimuson 11-12-2024 Tacrolimus (Bld) [Mass/Vol] 9.3 ng/mL Normal <=15.0 [facility] Comment on above: Order Comment: Befor e HemodialysisNOTE: Result was obtained using achemiluminescent microparticle immunoassay(CMIA) on the [employer] system.Optimal therapeutic ranges for immunosuppressantdrugs depend upon an individualpatient's current clinical state, type oforgan transplant, time post-transplant,co-administration of other immunosuppressants,and other clinical factors. The results ofthis test should be correlated with additionalclinical and laboratory data before changesin treatment regimens are made. Performed By: #### 1 1253-2 ####JASON Carrasquillo ([id number])[facility] ([facility])[address] [place] [address] Tacrolimus (Bld) [Mass/Vol]O rdered By: Marianna Hussein on 11-12-2024 Interpretation and review of laboratory results Normal [facility] NOTE: Result was obtained using a chemiluminescent microparticle immunoassay (CMIA) on the [employer] system. Optimal therapeutic ranges for immunosuppressant drugs depend upon an individual patient's current clinical state, type of organ transplant, time post-transplant, co-administration of other immunosuppressants, and other clinical factors. The results of this test should be correlated with additional clinical and laboratory data before changes in treatment regimens are made. [facility] CBC W Auto Differential pane l (Bld)on 11-10-2024 Basophils (Bld) [#/Vol] 0.03 10*3/uL [facility] Basophils/100 WBC (Bld) 1 % 0.0 - 2.0 % [facility] Eosinophils (Bld) [#/Vol] 0.03 10*3/uL [facility] Eosinophils/100 WBC (Bld) 1 % 0.0 - 6.0 % [facility] Erythrocyte distribution width (RBC) [Ratio] 17.4 % High 11.5 - 14.5 % [facility] Hematocrit (Bld) [Volume fraction] 25.5 % Low 41.0 - 52.0 % [facility] Hemoglobin (Bld) [Mass/Vol] 8 g/dL Low 13.5 - 17.5 g/dL [facility] Immature granulocytes (Bld) [#/Vol] 0.02 10*3/uL [facility] Immature granulocytes/100 WBC (Bld) 0.7 % 0.0 - 0.9 % [facility] Comment on above: Immature Granulocyte Count (IG) includes promyelocytes, myelocytes and metamyelocytes but does not include bands. Percent differential counts (%) should be interpreted in the context of the absolute cell counts (cells/UL). Interpretation and review of laboratory results Abnormal [facility] Lymphocytes (Bld) [#/Vol] 0.35 10*3/uL Low [facility] Lymphocytes/100 WBC (Bld) 12 % 13.0 - 44.0 % [facility] MCH (RBC) [Entitic mass] 24.8 pg Low 26.0 - 34.[address] [facility] MCHC (RBC) [Mass/Vol] 31.4 g/dL Low 32.0 - 36.0 g/dL [facility] MCV (RBC) [Entitic vol] 79 fL Low 80 - [address] [facility] Monocytes (Bld) [#/Vol] 0.05 10*3/uL Low [facility] Monocytes/100 WBC (Bld) 1.7 % 2.0 - 10.0 % [facility] Neutrophils (Bld) [#/Vol] 2.44 10*3/uL [facility] Comment on above: Percent differential counts (%) should be interpreted in the context of the absolute cell counts (cells/uL). Neutrophils/100 WBC (Bld) 83.6 % 40.0 - 80.0 % [facility] Nucleated RBC/100 WBC (Bld) [Ratio] 0 % [facility] Platelets (Bld) [#/Vol] 127 10*3/uL Low [facility] RBC (Bld) [#/Vol] 3.22 10*6/uL [facility] WBC (Bld) [#/Vol] 2.9 10*3/uL [facility] Basophils (Bld) [#/Vol] 0.03 x10*3/uL Normal 0.00-0.10 [facility] Comment on above: Performed By: #### 5 7021-8 ####JASON Carrasquillo ([id number])[facility] ([facility])[address] [place] [address] Basophils/100 WBC (Bld) 1.0 % Normal 0.0-2.0 [facility] Comment on above: Performed By: #### 5 7021-8 ####JASON CLARKMOTZER L ([id number])[facility] ([facility])[address] [place] [address] Eosinophils (Bld) [#/Vol] 0.03 x10*3/uL Normal 0.00-0.70 [facility] Comment on above: Performed By: #### 5 7021-8 ####JASON SCHMOTZER L ([id number])[facility] ([facility])[address] [place] [address] Eosinophils/100 WBC (Bld) 1.0 % Normal 0.0-6.0 [facility] Comment on above: Performed By: #### 5 7021-8 ####JASON CLARKMOTZER L ([id number])[facility] ([facility])[address] [place] [address] Immature granulocytes (Bld) [#/Vol] 0.02 x10*3/uL Normal 0.00-0.70 [facility] Comment on above: Performed By: #### 5 7021-8 ####JASON CLARKMOTZER L ([id number])[facility] ([facility])[address] [place] [address] Immature granulocytes/100 WBC (Bld) 0.7 % Normal 0.0-0.9 [facility] Comment on above: Result Comment: Shantell ture Granulocyte Count (IG) includes promyelocytes, myelocytes and metamyelocytes but does not include bands. Percent differential counts (%) should be interpreted in the context of the absolute cell counts (cells/UL). Performed By: #### 5 7021-8 ####JASON CLARKMOTZER L ([id number])[facility] ([facility])[address] [place] [address] Lymphocytes (Bld) [#/Vol] 0.35 x10*3/uL Low 1.20-4.80 [facility] Comment on above: Performed By: #### 5 7021-8 ####JASON CLARKMOTZER L ([id number])[facility] ([facility])[address] [place] [address] Lymphocytes/100 WBC (Bld) 12.0 % Normal 13.0-44.0 [facility] Comment on above: Performed By: #### 5 7021-8 ####JASON Carrasquillo ([id number])[facility] ([facility])[id number] [place] [address] Monocytes (Bld) [#/Vol] 0.05 x10*3/uL Low 0.10-1.00 [facility] Comment on above: Performed By: #### 5 7021-8 ####JASON Carrasquillo ([id number])[facility] ([facility])[address] [place] [address] Monocytes/100 WBC (Bld) 1.7 % Normal 2.0-10.0 [facility] Comment on above: Performed By: #### 5 7021-8 ####JASON Carrasquillo ([id number])[facility] ([facility])[address] [place] [address] Neutrophils (Bld) [#/Vol] 2.44 x10*3/uL Normal 1.20-7.70 [facility] Comment on above: Result Comment: Perc ent differential counts (%) should be interpreted in the context of the absolute cell counts (cells/uL). Performed By: #### 5 7021-8 ####JASON Carrasquillo ([id number])[facility] ([facility])[id number] [place] [address] Neutrophils/100 WBC (Bld) 83.6 % Normal 40.0-80.0 [facility] Comment on above: Performed By: #### 5 7021-8 ####JASON Carrasquillo ([id number])[facility] ([facility])[address] [place] [address] CBC panel Auto (Bld)on 11-10 Erythrocyte distribution width (RBC) [Ratio] 17.4 % High 11.5 - 14.5 % [facility] Hematocrit (Bld) [Volume fraction] 25.5 % Low 41.0 - 52.0 % [facility] Hemoglobin (Bld) [Mass/Vol] 8 g/dL Low 13.5 - 17.5 g/dL [facility] Interpretation and review of laboratory results Abnormal [facility] MCH (RBC) [Entitic mass] 24.8 pg Low 26.0 - 34.[address] [facility] MCHC (RBC) [Mass/Vol] 31.4 g/dL Low 32.0 - 36.0 g/dL [facility] MCV (RBC) [Entitic vol] 79 fL Low 80 - [address] [facility] Nucleated RBC/100 WBC (Bld) [Ratio] 0 % [facility] Platelets (Bld) [#/Vol] 127 10*3/uL Low [facility] RBC (Bld) [#/Vol] 3.22 10*6/uL Low [facility] WBC (Bld) [#/Vol] 2.9 10*3/uL [facility] Complete blood count panelon 11-10-2024 Erythrocyte distribution width (RBC) [Ratio] 17.4 % High 11.5-14.5 [facility] Comment on above: Order Comment: Befor e Hemodialysis Performed By: #### 5 8410-2 ####JASON Carrasquillo ([id number])[facility] ([facility])[address] [place] [address] Performed By: #### 5 7021-8 ####JASON Carrasquillo ([id number])[facility] ([facility])[address] [place], [place] [id number] Hematocrit (Bld) [Volume fraction] 25.5 % Low 41.0-52.0 [facility] Comment on above: Order Comment: Befor e Hemodialysis Performed By: #### 5 8410-2 ####JASON Carrasquillo ([id number])[facility] ([facility])[id number] [place], [place] [id number] Performed By: #### 5 7021-8 ####JASON Carrasquillo ([id number])[facility] ([facility])[address] [place] [address] Hemoglobin (Bld) [Mass/Vol] 8.0 g/dL Low 13.5-17.5 [facility] Comment on above: Order Comment: Befor e Hemodialysis Performed By: #### 5 8410-2 ####JASON JENNINGS L ([id number])[facility] ([facility])[address] [place] [address] Performed By: #### 5 7021-8 ####JASON JENNINGS L ([id number])[facility] ([facility])[address] [place] [address] MCH (RBC) [Entitic mass] 24.8 pg Low 26.0-34.0 [facility] Comment on above: Order Comment: Befor e Hemodialysis Performed By: #### 5 8410-2 ####JASON Carrasquillo ([id number])[facility] ([facility])[id number] [place] [address] Performed By: #### 5 7021-8 ####JASON JENNINGS L ([id number])[facility] ([facility])[id number] [place] [address] MCHC (RBC) [Mass/Vol] 31.4 g/dL Low 32.0-36.0 [facility] Comment on above: Order Comment: Befor e Hemodialysis Performed By: #### 5 8410-2 ####JASON JENNINGS L ([id number])[facility] ([facility])[address] [place] [address] Performed By: #### 5 7021-8 ####JASON JENNINGS L ([id number])[facility] ([facility])[address] [place] [address] MCV (RBC) [Entitic vol] 79 fL Low 80-100 [facility] Comment on above: Order Comment: Befor e Hemodialysis Performed By: #### 5 8410-2 ####JASON JENNINGS L ([id number])[facility] ([facility])[address] [place] [address] Performed By: #### 5 7021-8 ####JASON JENNINGS L ([id number])[facility] ([facility])[address] [place] [address] Nucleated RBC/100 WBC (Bld) [Ratio] 0.0 /100 WBCs Normal 0.0-0.0 [facility] Comment on above: Order Comment: Befor e Hemodialysis Performed By: #### 5 8410-2 ####JASON JENNINGS L ([id number])[facility] ([facility])[address] [place] [address] Performed By: #### 5 7021-8 ####JASON JENNINGS L ([id number])[facility] ([facility])[address] [place] [address] Platelets (Bld) [#/Vol] 127 x10*3/uL Low 150-450 [facility] Comment on above: Order Comment: Befor e Hemodialysis Performed By: #### 5 8410-2 ####JASON JENNINGS L ([id number])[facility] ([facility])[address] [place] [address] Performed By: #### 5 7021-8 ####JASON JENNINGS L ([id number])[facility] ([facility])[id number] [place] [address] RBC (Bld) [#/Vol] 3.22 x10*6/uL Low 4.50-5.90 [facility] Comment on above: Order Comment: Befor e Hemodialysis Performed By: #### 5 8410-2 ####JASON CLARKMOTZER L ([id number])[facility] ([facility])[address] [place] [address] Performed By: #### 5 7021-8 ####JASON CLARKMOTZER L ([id number])[facility] ([facility])[address] [place] [address] WBC (Bld) [#/Vol] 2.9 x10*3/uL Low 4.4-11.3 [facility] Comment on above: Order Comment: Befor e Hemodialysis Performed By: #### 5 8410-2 ####JASON Carrasquillo ([id number])[facility] ([facility])[address] [place] [id number] Performed By: #### 5 7021-8 ####JASON Carrasquillo ([id number])[facility] ([facility])[address] [place] [address] Laboratory - Chemistry and C hemistry - challengeon 11-10-2024 Magnesium [Mass/Vol] 2.07 mg/dL 1.60 - 2.40 mg/dL [facility] Laboratory - Drug toxicology Ordered By: Eloy Ibarra on 11-10-2024 Tacrolimus (Bld) [Mass/Vol] 13.7 ng/mL NINF - 15.0 ng/mL [facility] Magnesiumon 11-10-2024 Magnesium [Mass/Vol] 2.07 mg/dL Normal 1.60-2.40 [facility] Comment on above: Order Comment: Befor e Hemodialysis Performed By: #### 1 9123-9 ####JASON Carrasquillo ([id number])[facility] ([facility])[address] [place] [address] Magnesium [Mass/Vol]on 11-10 Interpretation and review of laboratory results Normal [facility] No Panel Informationon 11-[address] [facility] Renal function 2000 panelon 11-10-2024 Albumin BCP dye [Mass/Vol] 3.3 g/dL Low 3.4 - 5.0 g/dL [facility] Anion gap [Moles/Vol] 15 mmol/L 10 - 20 mmol/L [facility] Calcium [Mass/Vol] 7.9 mg/dL Low 8.6 - 10. 6 mg/dL [facility] Chloride [Moles/Vol] 105 mmol/L 98 - 10 7 mmol/L [facility] CO2 [Moles/Vol] 22 mmol/L 21 - 32 mmol/L [facility] Creatinine [Mass/Vol] 7.3 mg/dL High 0.50 - 1.30 mg/dL [facility] GFR/1.73 sq M.predicted among non-blacks MDRD (S/P/Bld) [Vol rate/Area] 8 mL/min/{1.73_m2} Low - PINF [facility] Comment on above: Calculations of cleopatra mated GFR are performed using the 2020 CKD-EPI Study Refit equation without the race variable for the IDMS-Traceable creatinine methods. https://jasn.asnjournals.org/content//ASN.872478 5345 Glucose [Mass/Vol] 110 mg/dL High 74 - 99 mg/dL [facility] Interpretation and review of laboratory results Abnormal [facility] Phosphate [Mass/Vol] 5.3 mg/dL High 2.5 - 4 .9 mg/dL [facility] Potassium [Moles/Vol] 4.3 mmol/L 3.5 - 5.3 mmol/L [facility] Sodium [Moles/Vol] 138 mmol/L 136 - 145 mmol/L [facility] Urea nitrogen [Mass/Vol] 73 mg/dL High 6 - 23 mg/dL [facility] Albumin BCP dye [Mass/Vol] 3.3 g/dL Low 3.4-5.0 [facility] Comment on above: Order Comment: Befor e Hemodialysis Performed By: #### 2 4362-6 ####JASON Carrasquillo ([id number])[facility] ([facility])[address] [place] [address] Anion gap [Moles/Vol] 15 mmol/L Normal 10-20 [facility] Comment on above: Order Comment: Befor e Hemodialysis Performed By: #### 2 4362-6 ####JASON JNENINGS L ([id number])[facility] ([facility])[address] [place] [address] Calcium [Mass/Vol] 7.9 mg/dL Low 8.6-10.6 [facility] Comment on above: Order Comment: Befor e Hemodialysis Performed By: #### 2 4362-6 ####JASON POPETZGREG L ([id number])[facility] ([facility])[address] [place] [address] Chloride [Moles/Vol] 105 mmol/L Normal 98-107 [facility] Comment on above: Order Comment: Befor e Hemodialysis Performed By: #### 2 4362-6 ####JASON Carrasquillo ([id number])[facility] ([facility])[address] [place] [address] CO2 [Moles/Vol] 22 mmol/L Normal 21-32 [facility] Comment on above: Order Comment: Befor e Hemodialysis Performed By: #### 2 4362-6 ####JASON Carrasquillo ([id number])[facility] ([facility])[address] [place] [address] Creatinine [Mass/Vol] 7.30 mg/dL High 0.50-1.30 [facility] Comment on above: Order Comment: Befor e Hemodialysis Performed By: #### 2 4362-6 ####JASON Carrasquillo ([id number])[facility] ([facility])[address] [place] [address] Glomerular filtration rate/1.73 sq M.predicted 8 mL/min/1.73m*2 Low >60 [facility] Comment on above: Order Comment: Befor e Hemodialysis Result Comment: Calc ulations of estimated GFR are performed using the 2020 CKD-EPI Study Refit equation without the race variable for the IDMS-Traceable creatinine methods.https://jasn.asnjournals.org/content// N.0214168079 Performed By: #### 2 4362-6 ####JASON Carrasquillo ([id number])[facility] ([facility])[address] [place] [address] Glucose [Mass/Vol] 110 mg/dL High 74-99 [facility] Comment on above: Order Comment: Befor e Hemodialysis Performed By: #### 2 4362-6 ####JASON Carrasquillo ([id number])[facility] ([facility])[address] [place] [address] Phosphate [Mass/Vol] 5.3 mg/dL High 2.5-4.9 [facility] Comment on above: Order Comment: Befor e Hemodialysis Performed By: #### 2 4362-6 ####JASON Carrasquillo ([id number])[facility] ([facility])[address] [place] [address] Potassium [Moles/Vol] 4.3 mmol/L Normal 3.5-5.3 [facility] Comment on above: Order Comment: Befor e Hemodialysis Performed By: #### 2 4362-6 ####JASON Carrasquillo ([id number])[facility] ([facility])[address] [place] [address] Sodium [Moles/Vol] 138 mmol/L Normal 136-145 [facility] Comment on above: Order Comment: Befor e Hemodialysis Performed By: #### 2 4362-6 ####JASON Carrasquillo ([id number])[facility] ([facility])[address] [place] [address] Urea nitrogen [Mass/Vol] 73 mg/dL High 6-23 [facility] Comment on above: Order Comment: Befor e Hemodialysis Performed By: #### 2 4362-6 ####JASON Carrasquillo ([id number])[facility] ([facility])[address] [place] [address] Tacrolimuson 11-10-2024 Tacrolimus (Bld) [Mass/Vol] 13.7 ng/mL Normal <=15.0 [facility] Comment on above: Order Comment: Befor e HemodialysisNOTE: Result was obtained using achemiluminescent microparticle immunoassay(CMIA) on the [employer] system.Optimal therapeutic ranges for immunosuppressantdrugs depend upon an individualpatient's current clinical state, type oforgan transplant, time post-transplant,co-administration of other immunosuppressants,and other clinical factors. The results ofthis test should be correlated with additionalclinical and laboratory data before changesin treatment regimens are made. Performed By: #### 1 1253-2 ####JASON Carrasquillo ([id number])[facility] ([facility])[address] [place] [address] Tacrolimus (Bld) [Mass/Vol]O rdered By: Eloy Ibarra on 11-10-2024 Interpretation and review of laboratory results Normal [facility] NOTE: Result was obtained using a chemiluminescent microparticle immunoassay (CMIA) on the [employer] system. Optimal therapeutic ranges for immunosuppressant drugs depend upon an individual patient's current clinical state, type of organ transplant, time post-transplant, co-administration of other immunosuppressants, and other clinical factors. The results of this test should be correlated with additional clinical and laboratory data before changes in treatment regimens are made. [facility] CBC panel Auto (Bld)on 11-08 Erythrocyte distribution width (RBC) [Ratio] 17.5 % High 11.5 - 14.5 % [facility] Hematocrit (Bld) [Volume fraction] 27.9 % Low 41.0 - 52.0 % [facility] Hemoglobin (Bld) [Mass/Vol] 8.6 g/dL Low 13.5 - 17.5 g/dL [facility] Interpretation and review of laboratory results Abnormal [facility] MCH (RBC) [Entitic mass] 24.4 pg Low 26.0 - 34.[address] [facility] MCHC (RBC) [Mass/Vol] 30.8 g/dL Low 32.0 - 36.0 g/dL [facility] MCV (RBC) [Entitic vol] 79 fL Low 80 - [address] [facility] Nucleated RBC/100 WBC (Bld) [Ratio] 0 % [facility] Platelets (Bld) [#/Vol] 150 10*3/uL [facility] RBC (Bld) [#/Vol] 3.52 10*6/uL [facility] WBC (Bld) [#/Vol] 3.9 10*3/uL [facility] Erythrocyte distribution width (RBC) [Ratio] 17.5 % High 11.5-14.5 [facility] Comment on above: Order Comment: Befor e Hemodialysis Performed By: #### 5 8410-2 ####JASON Carrasquillo ([id number])[facility] ([facility])[address] [place] [address] Hematocrit (Bld) [Volume fraction] 27.9 % Low 41.0-52.0 [facility] Comment on above: Order Comment: Befor e Hemodialysis Performed By: #### 5 8410-2 ####JASON Carrasquillo ([id number])[facility] ([facility])[address] [place] [address] Hemoglobin (Bld) [Mass/Vol] 8.6 g/dL Low 13.5-17.5 [facility] Comment on above: Order Comment: Befor e Hemodialysis Performed By: #### 5 8410-2 ####JASON Carrasquillo ([id number])[facility] ([facility])[address] [place] [address] MCH (RBC) [Entitic mass] 24.4 pg Low 26.0-34.0 [facility] Comment on above: Order Comment: Befor e Hemodialysis Performed By: #### 5 8410-2 ####JASON Carrasquillo ([id number])[facility] ([facility])[address] [place] [address] MCHC (RBC) [Mass/Vol] 30.8 g/dL Low 32.0-36.0 [facility] Comment on above: Order Comment: Befor e Hemodialysis Performed By: #### 5 8410-2 ####JASON Carrasquillo ([id number])[facility] ([facility])[address] [place] [address] MCV (RBC) [Entitic vol] 79 fL Low 80-100 [facility] Comment on above: Order Comment: Befor e Hemodialysis Performed By: #### 5 8410-2 ####JASON Carrasquillo ([id number])[facility] ([facility])[address] [place] [address] Nucleated RBC/100 WBC (Bld) [Ratio] 0.0 /100 WBCs Normal 0.0-0.0 [facility] Comment on above: Order Comment: Befor e Hemodialysis Performed By: #### 5 8410-2 ####JASON Carrasquillo ([id number])[facility] ([facility])[address] [place] [address] Platelets (Bld) [#/Vol] 150 x10*3/uL Normal 150-450 [facility] Comment on above: Order Comment: Befor e Hemodialysis Performed By: #### 5 8410-2 ####JASON Carrasquillo ([id number])[facility] ([facility])[address] [place] [address] RBC (Bld) [#/Vol] 3.52 x10*6/uL Low 4.50-5.90 [facility] Comment on above: Order Comment: Befor e Hemodialysis Performed By: #### 5 8410-2 ####JASON Carrasquillo ([id number])[facility] ([facility])[address] [place] [address] WBC (Bld) [#/Vol] 3.9 x10*3/uL Low 4.4-11.3 [facility] Comment on above: Order Comment: Befor e Hemodialysis Performed By: #### 5 8410-2 ####JASON Carrasquillo ([id number])[facility] ([facility])[id number] [place] [address] Laboratory - Chemistry and C hemistry - challengeon 11-08-2024 Magnesium [Mass/Vol] 2.17 mg/dL 1.60 - 2.40 mg/dL [facility] Laboratory - Drug toxicology Ordered By: Nakia Jimenez on 11-08-2024 Tacrolimus (Bld) [Mass/Vol] 10.7 ng/mL NINF - 15.0 ng/mL [facility] Magnesiumon 11-08-2024 Magnesium [Mass/Vol] 2.17 mg/dL Normal 1.60-2.40 [facility] Comment on above: Order Comment: Befor e Hemodialysis Performed By: #### 1 9123-9 ####JASON Carrasquillo ([id number])[facility] ([facility])[address] [place] [address] Magnesium [Mass/Vol]on 11-08 Interpretation and review of laboratory results Normal [facility] No Panel Informationon 11-[address] [facility] Renal function 2000 panelon 11-08-2024 Albumin BCP dye [Mass/Vol] 3.5 g/dL 3.4 - 5.0 g/dL [facility] Anion gap [Moles/Vol] 16 mmol/L 10 - 20 mmol/L [facility] Calcium [Mass/Vol] 8.3 mg/dL Low 8.6 - 10. 6 mg/dL [facility] Chloride [Moles/Vol] 107 mmol/L 98 - 10 7 mmol/L [facility] CO2 [Moles/Vol] 17 mmol/L Low 21 - 32 mmol/L [facility] Creatinine [Mass/Vol] 7.78 mg/dL High 0.50 - 1.30 mg/dL [facility] GFR/1.73 sq M.predicted among non-blacks MDRD (S/P/Bld) [Vol rate/Area] 8 mL/min/{1.73_m2} Low - PINF [facility] Comment on above: Calculations of cleopatra mated GFR are performed using the 2020 CKD-EPI Study Refit equation without the race variable for the IDMS-Traceable creatinine methods. https://jasn.asnjournals.org/content//ASN.027479 5915 Glucose [Mass/Vol] 296 mg/dL High 74 - 99 mg/dL [facility] Interpretation and review of laboratory results Abnormal [facility] Phosphate [Mass/Vol] 7.1 mg/dL High 2.5 - 4 .9 mg/dL [facility] Potassium [Moles/Vol] 5.2 mmol/L 3.5 - 5.3 mmol/L [facility] Sodium [Moles/Vol] 135 mmol/L Low 136 - 145 mmol/L [facility] Urea nitrogen [Mass/Vol] 103 mg/dL Critically high 6 - 23 mg/dL [facility] Albumin BCP dye [Mass/Vol] 3.5 g/dL Normal 3.4-5.0 [facility] Comment on above: Order Comment: Befor e Hemodialysis Performed By: #### 2 4362-6 ####JASON Carrasquillo ([id number])[facility] ([facility])[address] [place] [address] Anion gap [Moles/Vol] 16 mmol/L Normal 10-20 [facility] Comment on above: Order Comment: Befor e Hemodialysis Performed By: #### 2 4362-6 ####JASON Carrasquillo ([id number])[facility] ([facility])[address] [place] [address] Calcium [Mass/Vol] 8.3 mg/dL Low 8.6-10.6 [facility] Comment on above: Order Comment: Befor e Hemodialysis Performed By: #### 2 4362-6 ####JASON Carrasquillo ([id number])[facility] ([facility])[address] [place] [address] Chloride [Moles/Vol] 107 mmol/L Normal 98-107 [facility] Comment on above: Order Comment: Befor e Hemodialysis Performed By: #### 2 4362-6 ####JASON Carrasquillo ([id number])[facility] ([facility])[address] [place] [address] CO2 [Moles/Vol] 17 mmol/L Low 21-32 [facility] Comment on above: Order Comment: Befor e Hemodialysis Performed By: #### 2 4362-6 ####JASON JENNINGS L ([id number])[facility] ([facility])[address] [place] [address] Creatinine [Mass/Vol] 7.78 mg/dL High 0.50-1.30 [facility] Comment on above: Order Comment: Befor e Hemodialysis Performed By: #### 2 4362-6 ####JASON JENNINGS L ([id number])[facility] ([facility])[address] [place] [address] Glomerular filtration rate/1.73 sq M.predicted 8 mL/min/1.73m*2 Low >60 [facility] Comment on above: Order Comment: Befor e Hemodialysis Result Comment: Calc ulations of estimated GFR are performed using the 2020 CKD-EPI Study Refit equation without the race variable for the IDMS-Traceable creatinine methods.https://jasn.asnjournals.org/content/early/ N.2026005427 Performed By: #### 2 4362-6 ####JASON Carrasquillo ([id number])[facility] ([facility])[address] [place] [address] Glucose [Mass/Vol] 296 mg/dL High 74-99 [facility] Comment on above: Order Comment: Befor e Hemodialysis Performed By: #### 2 4362-6 ####JASON Carrasquillo ([id number])[facility] ([facility])[address] [place] [address] Phosphate [Mass/Vol] 7.1 mg/dL High 2.5-4.9 [facility] Comment on above: Order Comment: Befor e Hemodialysis Performed By: #### 2 4362-6 ####JASON Carrasquillo ([id number])[facility] ([facility])[address] [place] [address] Potassium [Moles/Vol] 5.2 mmol/L Normal 3.5-5.3 [facility] Comment on above: Order Comment: Befor e Hemodialysis Performed By: #### 2 4362-6 ####JASON Carrasquillo ([id number])[facility] ([facility])[address] [place] [address] Sodium [Moles/Vol] 135 mmol/L Low 136-145 [facility] Comment on above: Order Comment: Befor e Hemodialysis Performed By: #### 2 4362-6 ####JASON Carrasquillo ([id number])[facility] ([facility])[address] [place] [address] Urea nitrogen [Mass/Vol] 103 mg/dL Critically high 6-23 [facility] Comment on above: Order Comment: Befor e Hemodialysis Performed By: #### 2 4362-6 ####JASON Carrasquillo ([id number])[facility] ([facility])[address] [place] [address] Tacrolimuson 11-08-2024 Tacrolimus (Bld) [Mass/Vol] 10.7 ng/mL Normal <=15.0 [facility] Comment on above: Order Comment: Befor e HemodialysisNOTE: Result was obtained using achemiluminescent microparticle immunoassay(CMIA) on the [employer] system.Optimal therapeutic ranges for immunosuppressantdrugs depend upon an individualpatient's current clinical state, type oforgan transplant, time post-transplant,co-administration of other immunosuppressants,and other clinical factors. The results ofthis test should be correlated with additionalclinical and laboratory data before changesin treatment regimens are made. Performed By: #### 1 1253-2 ####JASON Carrasquillo ([id number])[facility] ([facility])[address] [place] [address] Tacrolimus (Bld) [Mass/Vol]O rdered By: Nakia Jimenez on 11-08-2024 Interpretation and review of laboratory results Normal [facility] NOTE: Result was obtained using a chemiluminescent microparticle immunoassay (CMIA) on the [employer] system. Optimal therapeutic ranges for immunosuppressant drugs depend upon an individual patient's current clinical state, type of organ transplant, time post-transplant, co-administration of other immunosuppressants, and other clinical factors. The results of this test should be correlated with additional clinical and laboratory data before changes in treatment regimens are made. [facility] CBC panel Auto (Bld)on 11-06 Erythrocyte distribution width (RBC) [Ratio] 17.3 % High 11.5-14.5 [facility] Comment on above: Performed By: #### 5 8410-2 ####TON MORAN ([id number])[facility] ([facility])[address] [place] [address] 32919 Hematocrit (Bld) [Volume fraction] 28.1 % Low 41.0-52.0 [facility] Comment on above: Performed By: #### 5 8410-2 ####TON MORAN ([id number])[facility] ([facility])[address] [place] [address] 79853 Hemoglobin (Bld) [Mass/Vol] 8.7 g/dL Low 13.5-17.5 [facility] Comment on above: Performed By: #### 5 8410-2 ####TON MORAN ([id number])[facility] ([facility])[address] [place] [address] 61297 MCH (RBC) [Entitic mass] 24.9 pg Low 26.0-34.0 [facility] Comment on above: Performed By: #### 5 8410-2 ####TON MORAN ([id number])[facility] ([facility])[address] [place] [address] 23248 MCHC (RBC) [Mass/Vol] 31.0 g/dL Low 32.0-36.0 [facility] Comment on above: Performed By: #### 5 8410-2 ####TON MORAN ([id number])[facility] ([facility])[address] [place], [place] [id number] MCV (RBC) [Entitic vol] 80 fL Normal 80-100 [facility] Comment on above: Performed By: #### 5 8410-2 ####TON MORAN ([id number])[facility] ([facility])[address] [place] [address] 63299 Nucleated RBC/100 WBC (Bld) [Ratio] 0.0 /100 WBCs Normal 0.0-0.0 [facility] Comment on above: Performed By: #### 5 8410-2 ####TON MORAN ([id number])[facility] ([facility])[address] [place] [address] 63390 Platelets (Bld) [#/Vol] 126 x10*3/uL Low 150-450 [facility] Comment on above: Performed By: #### 5 8410-2 ####TON MORAN ([id number])[facility] ([facility])[address] [place] [address] 69934 RBC (Bld) [#/Vol] 3.50 x10*6/uL Low 4.50-5.90 [facility] Comment on above: Performed By: #### 5 8410-2 ####TON MORAN ([id number])[facility] ([facility])[address] [place] [address] 39122 WBC (Bld) [#/Vol] 3.7 x10*3/uL Low 4.4-11.3 [facility] Comment on above: Performed By: #### 5 8410-2 ####TON MORAN ([id number])[facility] ([facility])[address] [place] [address] 93778 Magnesiumon 11-06-2024 Magnesium [Mass/Vol] 2.02 mg/dL Normal 1.60-2.40 [facility] Comment on above: Performed By: #### 1 9123-9 ####TON MORAN ([id number])[facility] ([facility])[address] [place], [place] [id number] Renal function 2000 panelon 11-06-2024 Albumin BCP dye [Mass/Vol] 3.4 g/dL Normal 3.4-5.0 [facility] Comment on above: Performed By: #### 2 4362-6 ####TON MORAN ([id number])[facility] ([facility])[address] [place] [address] 72619 Anion gap [Moles/Vol] 16 mmol/L Normal 10-20 [facility] Comment on above: Performed By: #### 2 4362-6 ####TON MORAN ([id number])[facility] ([facility])[address] [place] [address] 47171 Calcium [Mass/Vol] 8.1 mg/dL Low 8.6-10.3 [facility] Comment on above: Performed By: #### 2 4362-6 ####TON MORAN ([id number])[facility] ([facility])[address] [place] [address] 93243 Chloride [Moles/Vol] 100 mmol/L Normal 98-107 [facility] Comment on above: Performed By: #### 2 4362-6 ####TON MORAN ([id number])[facility] ([facility])[address] [place] [address] CO2 [Moles/Vol] 27 mmol/L Normal 21-32 [facility] Comment on above: Performed By: #### 2 4362-6 ####TON MORAN ([id number])[facility] ([facility])[address] [place] [address] 14850 Creatinine [Mass/Vol] 7.69 mg/dL High 0.50-1.30 [facility] Comment on above: Performed By: #### 2 4362-6 ####TON MORAN ([id number])[facility] ([facility])[address] [place] [address] 21233 Glomerular filtration rate/1.73 sq M.predicted 8 mL/min/1.73m*2 Low >60 [facility] Comment on above: Result Comment: Calc ulations of estimated GFR are performed using the 2020 CKD-EPI Study Refit equation without the race variable for the IDMS-Traceable creatinine methods.https://jasn.asnjournals.org/content/early// N.6289224158 Performed By: #### 2 4362-6 ####TON MORAN ([id number])[facility] ([facility])[address] [place] [address] 72760 Glucose [Mass/Vol] 79 mg/dL Normal 74-99 [facility] Comment on above: Performed By: #### 2 4362-6 ####TON MORAN ([id number])[facility] ([facility] [place] [address] Phosphate [Mass/Vol] 7.0 mg/dL High 2.5-4.9 [facility] Comment on above: Performed By: #### 2 4362-6 ####TON MORAN ([id number])[facility] ([facility] [place] [address] Potassium [Moles/Vol] 4.2 mmol/L Normal 3.5-5.3 [facility] Comment on above: Performed By: #### 2 4362-6 ####TON MORAN ([id number])[facility] ([facility])[address] [place] [address] 64946 Sodium [Moles/Vol] 139 mmol/L Normal 136-145 [facility] Comment on above: Performed By: #### 2 4362-6 ####TON MORAN ([id number])[facility] ([facility])[address] [place] [address] 14234 Urea nitrogen [Mass/Vol] 75 mg/dL High 6-23 [facility] Comment on above: Performed By: #### 2 4362-6 ####TON MORAN ([id number])[facility] ([facility])[address] [place] [address] Tacrolimuson 11-06-2024 Tacrolimus (Bld) [Mass/Vol] 10.2 ng/mL Normal <=15.0 [facility] Comment on above: Order Comment: NOTE: Result was obtained using a chemiluminescent microparticle immunoassay (CMIA) on the [employer] i system. Optimal therapeutic ranges for immunosuppressant drugs depend upon an individual patient's current clinical state, type of organ transplant, time post-transplant, co-administration of other immunosuppressants, and other clinical factors. The results of this test should be correlated with additional clinical and laboratory data before changes in treatment regimens are made. Performed By: #### 1 1253-2 #### JASON Carrasquillo ([id number]) [facility] ([facility]) [id number] [place] [address] CBC panel Auto (Bld)on 11-03 Erythrocyte distribution width (RBC) [Ratio] 17.6 % High 11.5 - 14.5 % [facility] Hematocrit (Bld) [Volume fraction] 28.5 % Low 41.0 - 52.0 % [facility] Hemoglobin (Bld) [Mass/Vol] 9.1 g/dL Low 13.5 - 17.5 g/dL [facility] Interpretation and review of laboratory results Abnormal [facility] MCH (RBC) [Entitic mass] 24.9 pg Low 26.0 - 34.[address] [facility] MCHC (RBC) [Mass/Vol] 31.9 g/dL Low 32.0 - 36.0 g/dL [facility] MCV (RBC) [Entitic vol] 78 fL Low 80 - [address] [facility] Nucleated RBC/100 WBC (Bld) [Ratio] 0 % [facility] Platelets (Bld) [#/Vol] 161 10*3/uL [facility] RBC (Bld) [#/Vol] 3.65 10*6/uL Low Unive [facility] WBC (Bld) [#/Vol] 5.9 10*3/uL [facility] Erythrocyte distribution width (RBC) [Ratio] 17.6 % High 11.5-14.5 [facility] Comment on above: Order Comment: Befor e Hemodialysis Performed By: #### 5 8410-2 ####JASON Carrasquillo ([id number])[facility] ([facility])[address] [place] [address] 80116 Hematocrit (Bld) [Volume fraction] 28.5 % Low 41.0-52.0 [facility] Comment on above: Order Comment: Befor e Hemodialysis Performed By: #### 5 8410-2 ####JASON Carrasquillo ([id number])[facility] ([facility])[address] [place] [address] 45491 Hemoglobin (Bld) [Mass/Vol] 9.1 g/dL Low 13.5-17.5 [facility] Comment on above: Order Comment: Befor e Hemodialysis Performed By: #### 5 8410-2 ####JASON Carrasquillo ([id number])[facility] ([facility])[address] [place] [address] MCH (RBC) [Entitic mass] 24.9 pg Low 26.0-34.0 [facility] Comment on above: Order Comment: Befor e Hemodialysis Performed By: #### 5 8410-2 ####JASON Carrasquillo ([id number])[facility] ([facility])[address] [place] [address] MCHC (RBC) [Mass/Vol] 31.9 g/dL Low 32.0-36.0 [facility] Comment on above: Order Comment: Befor e Hemodialysis Performed By: #### 5 8410-2 ####JASON Carrasquillo ([id number])[facility] ([facility])[address] [place] [address] MCV (RBC) [Entitic vol] 78 fL Low 80-100 [facility] Comment on above: Order Comment: Befor e Hemodialysis Performed By: #### 5 8410-2 ####JASON Carrasquillo ([id number])[facility] ([facility])[address] [place] [address] Nucleated RBC/100 WBC (Bld) [Ratio] 0.0 /100 WBCs Normal 0.0-0.0 [facility] Comment on above: Order Comment: Befor e Hemodialysis Performed By: #### 5 8410-2 ####JASON Carrasquillo ([id number])[facility] ([facility])[address] [place] [address] Platelets (Bld) [#/Vol] 161 x10*3/uL Normal 150-450 [facility] Comment on above: Order Comment: Befor e Hemodialysis Performed By: #### 5 8410-2 ####JASON Carrasquillo ([id number])[facility] ([facility])[address] [place] [address] RBC (Bld) [#/Vol] 3.65 x10*6/uL Low 4.50-5.90 [facility] Comment on above: Order Comment: Befor e Hemodialysis Performed By: #### 5 8410-2 ####JASON Carrasquillo ([id number])[facility] ([facility])[address] [place] [address] WBC (Bld) [#/Vol] 5.9 x10*3/uL Normal 4.4-11.3 [facility] Comment on above: Order Comment: Befor e Hemodialysis Performed By: #### 5 8410-2 ####JASON Carrasquillo ([id number])[facility] ([facility])[address] [place] [address] Laboratory - Chemistry and C hemistry - challengeon 11-03-2024 Magnesium [Mass/Vol] 2.18 mg/dL 1.60 - 2.40 mg/dL [facility] Laboratory - Drug toxicology Ordered By: Kristine Santana on 11-03-2024 Tacrolimus (Bld) [Mass/Vol] 6.3 ng/mL NINF - 15.0 ng/mL [facility] Magnesiumon 11-03-2024 Magnesium [Mass/Vol] 2.18 mg/dL Normal 1.60-2.40 [facility] Comment on above: Order Comment: Befor e Hemodialysis Performed By: #### 1 9123-9 ####JASON Carrasquillo ([id number])[facility] ([facility])[address] [place] [address] Magnesium [Mass/Vol]on 11-03 Interpretation and review of laboratory results Normal [facility] No Panel Informationon 11-[address] [facility] Renal function 2000 panelon 11-03-2024 Albumin BCP dye [Mass/Vol] 3.6 g/dL 3.4 - 5.0 g/dL [facility] Anion gap [Moles/Vol] 17 mmol/L 10 - 20 mmol/L [facility] Calcium [Mass/Vol] 8.2 mg/dL Low 8.6 - 10. 6 mg/dL [facility] Chloride [Moles/Vol] 100 mmol/L 98 - 10 7 mmol/L [facility] CO2 [Moles/Vol] 24 mmol/L 21 - 32 mmol/L [facility] Creatinine [Mass/Vol] 6.61 mg/dL High 0.50 - 1.30 mg/dL [facility] GFR/1.73 sq M.predicted among non-blacks MDRD (S/P/Bld) [Vol rate/Area] 9 mL/min/{1.73_m2} Low - PINF [facility] Comment on above: Calculations of cleopatra mated GFR are performed using the 2020 CKD-EPI Study Refit equation without the race variable for the IDMS-Traceable creatinine methods. https://jasn.asnjournals.org/content//ASN.978195 4187 Glucose [Mass/Vol] 127 mg/dL High 74 - 99 mg/dL [facility] Interpretation and review of laboratory results Abnormal [facility] Phosphate [Mass/Vol] 5.4 mg/dL High 2.5 - 4 .9 mg/dL [facility] Potassium [Moles/Vol] 4.3 mmol/L 3.5 - 5.3 mmol/L [facility] Sodium [Moles/Vol] 137 mmol/L 136 - 145 mmol/L [facility] Urea nitrogen [Mass/Vol] 62 mg/dL High 6 - 23 mg/dL [facility] Albumin BCP dye [Mass/Vol] 3.6 g/dL Normal 3.4-5.0 [facility] Comment on above: Order Comment: Befor e Hemodialysis Performed By: #### 2 4362-6 ####JASON Carrasquillo ([id number])[facility] ([facility])[address] [place] [address] 54566 Anion gap [Moles/Vol] 17 mmol/L Normal 10-20 [facility] Comment on above: Order Comment: Befor e Hemodialysis Performed By: #### 2 4362-6 ####JASON JENNINGS L ([id number])[facility] ([facility])[address] [place] [address] 89095 Calcium [Mass/Vol] 8.2 mg/dL Low 8.6-10.6 [facility] Comment on above: Order Comment: Befor e Hemodialysis Performed By: #### 2 4362-6 ####JASON POPETZGREG L ([id number])[facility] ([facility])[address] [place] [address] 72118 Chloride [Moles/Vol] 100 mmol/L Normal 98-107 [facility] Comment on above: Order Comment: Befor e Hemodialysis Performed By: #### 2 4362-6 ####JASON JENNINGS L ([id number])[facility] ([facility])[address] [place] [address] CO2 [Moles/Vol] 24 mmol/L Normal 21-32 [facility] Comment on above: Order Comment: Befor e Hemodialysis Performed By: #### 2 4362-6 ####JASON Carrasquillo ([id number])[facility] ([facility])[address] [place] [address] Creatinine [Mass/Vol] 6.61 mg/dL High 0.50-1.30 [facility] Comment on above: Order Comment: Befor e Hemodialysis Performed By: #### 2 4362-6 ####JASON Carrasquillo ([id number])[facility] ([facility])[address] [place] [address] Glomerular filtration rate/1.73 sq M.predicted 9 mL/min/1.73m*2 Low >60 [facility] Comment on above: Order Comment: Befor e Hemodialysis Result Comment: Calc ulations of estimated GFR are performed using the 2020 CKD-EPI Study Refit equation without the race variable for the IDMS-Traceable creatinine methods.https://jasn.asnjournals.org/content/early/ N.7846472143 Performed By: #### 2 4362-6 ####JASON Carrasquillo ([id number])[facility] ([facility])[address] [place] [address] Glucose [Mass/Vol] 127 mg/dL High 74-99 [facility] Comment on above: Order Comment: Befor e Hemodialysis Performed By: #### 2 4362-6 ####JASON Carrasquillo ([id number])[facility] ([facility])[address] [place] [address] Phosphate [Mass/Vol] 5.4 mg/dL High 2.5-4.9 [facility] Comment on above: Order Comment: Befor e Hemodialysis Performed By: #### 2 4362-6 ####JASON Carrasquillo ([id number])[facility] ([facility])[address] [place] [address] Potassium [Moles/Vol] 4.3 mmol/L Normal 3.5-5.3 [facility] Comment on above: Order Comment: Befor e Hemodialysis Performed By: #### 2 4362-6 ####JASON Carrasquillo ([id number])[facility] ([facility])[address] [place] [address] Sodium [Moles/Vol] 137 mmol/L Normal 136-145 [facility] Comment on above: Order Comment: Befor e Hemodialysis Performed By: #### 2 4362-6 ####JASON Carrasquillo ([id number])[facility] ([facility])[address] [place] [address] Urea nitrogen [Mass/Vol] 62 mg/dL High 6-23 [facility] Comment on above: Order Comment: Befor e Hemodialysis Performed By: #### 2 4362-6 ####JASON Carrasquillo ([id number])[facility] ([facility])[address] [place] [address] Tacrolimuson 11-03-2024 Tacrolimus (Bld) [Mass/Vol] 6.3 ng/mL Normal <=15.0 [facility] Comment on above: Order Comment: Befor e HemodialysisNOTE: Result was obtained using achemiluminescent microparticle immunoassay(CMIA) on the [employer] system.Optimal therapeutic ranges for immunosuppressantdrugs depend upon an individualpatient's current clinical state, type oforgan transplant, time post-transplant,co-administration of other immunosuppressants,and other clinical factors. The results ofthis test should be correlated with additionalclinical and laboratory data before changesin treatment regimens are made. Performed By: #### 1 1253-2 ####JASON Carrasquillo ([id number])[facility] ([facility])[address] [place] [address] Tacrolimus (Bld) [Mass/Vol]O rdered By: Kristine Santana on 11-03-2024 Interpretation and review of laboratory results Normal [facility] NOTE: Result was obtained using a chemiluminescent microparticle immunoassay (CMIA) on the [employer] i system. Optimal therapeutic ranges for immunosuppressant drugs depend upon an individual patient's current clinical state, type of organ transplant, time post-transplant, co-administration of other immunosuppressants, and other clinical factors. The results of this test should be correlated with additional clinical and laboratory data before changes in treatment regimens are made. [facility] CBC panel Auto (Bld)on 11-01 Erythrocyte distribution width (RBC) [Ratio] 17.8 % High 11.5 - 14.5 % [facility] Hematocrit (Bld) [Volume fraction] 28.8 % Low 41.0 - 52.0 % [facility] Hemoglobin (Bld) [Mass/Vol] 9 g/dL Low 13.5 - 17.5 g/dL [facility] Interpretation and review of laboratory results Abnormal [facility] MCH (RBC) [Entitic mass] 24.4 pg Low 26.0 - 34.[address] [facility] MCHC (RBC) [Mass/Vol] 31.3 g/dL Low 32.0 - 36.0 g/dL [facility] MCV (RBC) [Entitic vol] 78 fL Low 80 - [address] [facility] Nucleated RBC/100 WBC (Bld) [Ratio] 0 % [facility] Platelets (Bld) [#/Vol] 126 10*3/uL Low [facility] RBC (Bld) [#/Vol] 3.69 10*6/uL [facility] WBC (Bld) [#/Vol] 5.6 10*3/uL [facility] Erythrocyte distribution width (RBC) [Ratio] 17.8 % High 11.5-14.5 [facility] Comment on above: Order Comment: Befor e Hemodialysis Performed By: #### 5 8410-2 ####JASON Carrasquillo ([id number])[facility] ([facility])[address] [place] [address] Hematocrit (Bld) [Volume fraction] 28.8 % Low 41.0-52.0 [facility] Comment on above: Order Comment: Befor e Hemodialysis Performed By: #### 5 8410-2 ####JASON Carrasquillo ([id number])[facility] ([facility])[address] [place] [address] Hemoglobin (Bld) [Mass/Vol] 9.0 g/dL Low 13.5-17.5 [facility] Comment on above: Order Comment: Befor e Hemodialysis Performed By: #### 5 8410-2 ####JASON Carrasquillo ([id number])[facility] ([facility])[address] [place] [address] MCH (RBC) [Entitic mass] 24.4 pg Low 26.0-34.0 [facility] Comment on above: Order Comment: Befor e Hemodialysis Performed By: #### 5 8410-2 ####JASON Carrasquillo ([id number])[facility] ([facility])[address] [place] [address] MCHC (RBC) [Mass/Vol] 31.3 g/dL Low 32.0-36.0 [facility] Comment on above: Order Comment: Befor e Hemodialysis Performed By: #### 5 8410-2 ####JASON Carrasquillo ([id number])[facility] ([facility])[address] [place] [address] MCV (RBC) [Entitic vol] 78 fL Low 80-100 [facility] Comment on above: Order Comment: Befor e Hemodialysis Performed By: #### 5 8410-2 ####JASON Carrasquillo ([id number])[facility] ([facility])[address] [place] [address] Nucleated RBC/100 WBC (Bld) [Ratio] 0.0 /100 WBCs Normal 0.0-0.0 [facility] Comment on above: Order Comment: Befor e Hemodialysis Performed By: #### 5 8410-2 ####JASON Carrasquillo ([id number])[facility] ([facility])[address] [place] [address] Platelets (Bld) [#/Vol] 126 x10*3/uL Low 150-450 [facility] Comment on above: Order Comment: Befor e Hemodialysis Performed By: #### 5 8410-2 ####JASON Carrasquillo ([id number])[facility] ([facility])[address] [place] [address] RBC (Bld) [#/Vol] 3.69 x10*6/uL Low 4.50-5.90 [facility] Comment on above: Order Comment: Befor e Hemodialysis Performed By: #### 5 8410-2 ####JASON Carrasquillo ([id number])[facility] ([facility])[address] [place] [address] WBC (Bld) [#/Vol] 5.6 x10*3/uL Normal 4.4-11.3 [facility] Comment on above: Order Comment: Befor e Hemodialysis Performed By: #### 5 8410-2 ####JASON Carrasquillo ([id number])[facility] ([facility])[address] [place] [address] Laboratory - Chemistry and C hemistry - challengeon 11-01-2024 Magnesium [Mass/Vol] 2.06 mg/dL 1.60 - 2.40 mg/dL [facility] Laboratory - Drug toxicology Ordered By: Deisy Patterson on 11-01-2024 Tacrolimus (Bld) [Mass/Vol] 14.1 ng/mL NINF - 15.0 ng/mL [facility] Magnesiumon 11-01-2024 Magnesium [Mass/Vol] 2.06 mg/dL Normal 1.60-2.40 [facility] Comment on above: Order Comment: Befor e Hemodialysis Performed By: #### 1 9123-9 ####JASON Carrasquillo ([id number])[facility] ([facility])[address] [place] [address] Magnesium [Mass/Vol]on 11-01 Interpretation and review of laboratory results Normal [facility] No Panel Informationon 11-[address] [facility] Renal function 2000 panelon 11-01-2024 Albumin BCP dye [Mass/Vol] 3.5 g/dL 3.4 - 5.0 g/dL [facility] Anion gap [Moles/Vol] 18 mmol/L 10 - 20 mmol/L [facility] Calcium [Mass/Vol] 8.2 mg/dL Low 8.6 - 10. 6 mg/dL [facility] Chloride [Moles/Vol] 98 mmol/L 98 - 10 7 mmol/L [facility] CO2 [Moles/Vol] 24 mmol/L 21 - 32 mmol/L [facility] Creatinine [Mass/Vol] 7.78 mg/dL High 0.50 - 1.30 mg/dL [facility] GFR/1.73 sq M.predicted among non-blacks MDRD (S/P/Bld) [Vol rate/Area] 8 mL/min/{1.73_m2} Low - PINF [facility] Comment on above: Calculations of cleopatra mated GFR are performed using the 2020 CKD-EPI Study Refit equation without the race variable for the IDMS-Traceable creatinine methods. https://jasn.asnjournals.org/content/early/ASN.998518 9197 Glucose [Mass/Vol] 250 mg/dL High 74 - 99 mg/dL [facility] Interpretation and review of laboratory results Abnormal [facility] Phosphate [Mass/Vol] 6.6 mg/dL High 2.5 - 4 .9 mg/dL [facility] Potassium [Moles/Vol] 4.5 mmol/L 3.5 - 5.3 mmol/L [facility] Sodium [Moles/Vol] 135 mmol/L Low 136 - 145 mmol/L [facility] Urea nitrogen [Mass/Vol] 75 mg/dL High 6 - 23 mg/dL [facility] Albumin BCP dye [Mass/Vol] 3.5 g/dL Normal 3.4-5.0 [facility] Comment on above: Order Comment: Befor e Hemodialysis Performed By: #### 2 4362-6 ####JASON Carrasquillo ([id number])[facility] ([facility])[address] [place] [address] Anion gap [Moles/Vol] 18 mmol/L Normal 10-20 [facility] Comment on above: Order Comment: Befor e Hemodialysis Performed By: #### 2 4362-6 ####JASON POPETZER L ([id number])[facility] ([facility])[address] [place] [address] Calcium [Mass/Vol] 8.2 mg/dL Low 8.6-10.6 [facility] Comment on above: Order Comment: Befor e Hemodialysis Performed By: #### 2 4362-6 ####JASON CLARKMOTZER L ([id number])[facility] ([facility])[address] [place] [address] Chloride [Moles/Vol] 98 mmol/L Normal 98-107 [facility] Comment on above: Order Comment: Befor e Hemodialysis Performed By: #### 2 4362-6 ####JASON CLARKMOTZER L ([id number])[facility] ([facility])[address] [place] [address] CO2 [Moles/Vol] 24 mmol/L Normal 21-32 [facility] Comment on above: Order Comment: Befor e Hemodialysis Performed By: #### 2 4362-6 ####JASON POPETZER L ([id number])[facility] ([facility])[address] [place] [address] Creatinine [Mass/Vol] 7.78 mg/dL High 0.50-1.30 [facility] Comment on above: Order Comment: Befor e Hemodialysis Performed By: #### 2 4362-6 ####JASON POPETZER L ([id number])[facility] ([facility])[address] [place] [address] Glomerular filtration rate/1.73 sq M.predicted 8 mL/min/1.73m*2 Low >60 [facility] Comment on above: Order Comment: Befor e Hemodialysis Result Comment: Calc ulations of estimated GFR are performed using the 2020 CKD-EPI Study Refit equation without the race variable for the IDMS-Traceable creatinine methods.https://jasn.asnjournals.org/content/early/ N.2171887623 Performed By: #### 2 4362-6 ####JASON Carrasquillo ([id number])[facility] ([facility])[address] [place] [address] Glucose [Mass/Vol] 250 mg/dL High 74-99 [facility] Comment on above: Order Comment: Befor e Hemodialysis Performed By: #### 2 4362-6 ####JASON Carrasquillo ([id number])[facility] ([facility])[address] [place] [address] Phosphate [Mass/Vol] 6.6 mg/dL High 2.5-4.9 [facility] Comment on above: Order Comment: Befor e Hemodialysis Performed By: #### 2 4362-6 ####JASON Carrasquillo ([id number])[facility] ([facility])[id number] [place] [address] Potassium [Moles/Vol] 4.5 mmol/L Normal 3.5-5.3 [facility] Comment on above: Order Comment: Befor e Hemodialysis Performed By: #### 2 4362-6 ####JASON Carrasquillo ([id number])[facility] ([facility])[address] [place] [address] Sodium [Moles/Vol] 135 mmol/L Low 136-145 [facility] Comment on above: Order Comment: Befor e Hemodialysis Performed By: #### 2 4362-6 ####JASON Carrasquillo ([id number])[facility] ([facility])[address] [place] [address] Urea nitrogen [Mass/Vol] 75 mg/dL High 6-23 [facility] Comment on above: Order Comment: Befor e Hemodialysis Performed By: #### 2 4362-6 ####JASON Carrasquillo ([id number])[facility] ([facility])[address] [place] [address] Tacrolimuson 11-01-2024 Tacrolimus (Bld) [Mass/Vol] 14.1 ng/mL Normal <=15.0 [facility] Comment on above: Order Comment: Befor e HemodialysisNOTE: Result was obtained using achemiluminescent microparticle immunoassay(CMIA) on the [employer] system.Optimal therapeutic ranges for immunosuppressantdrugs depend upon an individualpatient's current clinical state, type oforgan transplant, time post-transplant,co-administration of other immunosuppressants,and other clinical factors. The results ofthis test should be correlated with additionalclinical and laboratory data before changesin treatment regimens are made. Performed By: #### 1 1253-2 ####JASON Carrasquillo ([id number])[facility] ([facility])[address] [place] [address] Tacrolimus (Bld) [Mass/Vol]O rdered By: Deisy Patterson on 11-01-2024 Interpretation and review of laboratory results Normal [facility] NOTE: Result was obtained using a chemiluminescent microparticle immunoassay (CMIA) on the [employer] system. Optimal therapeutic ranges for immunosuppressant drugs depend upon an individual patient's current clinical state, type of organ transplant, time post-transplant, co-administration of other immunosuppressants, and other clinical factors. The results of this test should be correlated with additional clinical and laboratory data before changes in treatment regimens are made. [facility] CBC panel Auto (Bld)on 10-29 Erythrocyte distribution width (RBC) [Ratio] 18.1 % High 11.5 - 14.5 % [facility] Hematocrit (Bld) [Volume fraction] 27.9 % Low 41.0 - 52.0 % [facility] Hemoglobin (Bld) [Mass/Vol] 8.9 g/dL Low 13.5 - 17.5 g/dL [facility] Interpretation and review of laboratory results Abnormal [facility] MCH (RBC) [Entitic mass] 24.1 pg Low 26.0 - 34.[address] [facility] MCHC (RBC) [Mass/Vol] 31.9 g/dL Low 32.0 - 36.0 g/dL [facility] MCV (RBC) [Entitic vol] 76 fL Low 80 - [address] [facility] Nucleated RBC/100 WBC (Bld) [Ratio] 0 % [facility] Platelets (Bld) [#/Vol] 122 10*3/uL [facility] RBC (Bld) [#/Vol] 3.69 10*6/uL [facility] WBC (Bld) [#/Vol] 4.9 10*3/uL [facility] Erythrocyte distribution width (RBC) [Ratio] 18.1 % High 11.5-14.5 [facility] Comment on above: Order Comment: Befor e Hemodialysis Performed By: #### 5 8410-2 ####JASON Carrasquillo ([id number])[facility] ([facility])[address] [place] [address] Hematocrit (Bld) [Volume fraction] 27.9 % Low 41.0-52.0 [facility] Comment on above: Order Comment: Befor e Hemodialysis Performed By: #### 5 8410-2 ####JASON Carrasquillo ([id number])[facility] ([facility])[id number] [place] [address] Hemoglobin (Bld) [Mass/Vol] 8.9 g/dL Low 13.5-17.5 [facility] Comment on above: Order Comment: Befor e Hemodialysis Performed By: #### 5 8410-2 ####JASON Carrasquillo ([id number])[facility] ([facility])[id number] [place] [address] MCH (RBC) [Entitic mass] 24.1 pg Low 26.0-34.0 [facility] Comment on above: Order Comment: Befor e Hemodialysis Performed By: #### 5 8410-2 ####JASON Carrasquillo ([id number])[facility] ([facility])[address] [place] [address] MCHC (RBC) [Mass/Vol] 31.9 g/dL Low 32.0-36.0 [facility] Comment on above: Order Comment: Befor e Hemodialysis Performed By: #### 5 8410-2 ####JASON Carrasquillo ([id number])[facility] ([facility])[address] [place] [address] MCV (RBC) [Entitic vol] 76 fL Low 80-100 [facility] Comment on above: Order Comment: Befor e Hemodialysis Performed By: #### 5 8410-2 ####JASON Carrasquillo ([id number])[facility] ([facility])[address] [place] [address] Nucleated RBC/100 WBC (Bld) [Ratio] 0.0 /100 WBCs Normal 0.0-0.0 [facility] Comment on above: Order Comment: Befor e Hemodialysis Performed By: #### 5 8410-2 ####JASON Carrasquillo ([id number])[facility] ([facility])[address] [place] [address] Platelets (Bld) [#/Vol] 122 x10*3/uL Low 150-450 [facility] Comment on above: Order Comment: Befor e Hemodialysis Performed By: #### 5 8410-2 ####JASON Carrasquillo ([id number])[facility] ([facility])[address] [place] [address] RBC (Bld) [#/Vol] 3.69 x10*6/uL Low 4.50-5.90 [facility] Comment on above: Order Comment: Befor e Hemodialysis Performed By: #### 5 8410-2 ####JASON Carrasquillo ([id number])[facility] ([facility])[address] [place] [address] WBC (Bld) [#/Vol] 4.9 x10*3/uL Normal 4.4-11.3 [facility] Comment on above: Order Comment: Befor e Hemodialysis Performed By: #### 5 8410-2 ####JASON Carrasquillo ([id number])[facility] ([facility])[address] [place] [address] Magnesiumon 10-29-2024 Magnesium [Mass/Vol] 2.09 mg/dL 1.60 - 2.40 mg/dL [facility] Magnesium [Mass/Vol] 2.09 mg/dL Normal 1.60-2.40 [facility] Comment on above: Order Comment: Sammy sharma Hemodialysis Performed By: #### 1 9123-9 ####JASON Carrasquillo ([id number])[facility] ([facility])[address] [place] [address] Magnesium [Mass/Vol]on 10-29 Interpretation and review of laboratory results Normal [facility] No Panel Informationon 10-[address] [facility] Renal function 2000 panelon 10-29-2024 Albumin BCP dye [Mass/Vol] 3.4 g/dL 3.4 - 5.0 g/dL [facility] Anion gap [Moles/Vol] 16 mmol/L 10 - 20 mmol/L [facility] Calcium [Mass/Vol] 7.9 mg/dL Low 8.6 - 10. 6 mg/dL [facility] Chloride [Moles/Vol] 95 mmol/L Low 98 - 10 7 mmol/L [facility] CO2 [Moles/Vol] 26 mmol/L 21 - 32 mmol/L [facility] Creatinine [Mass/Vol] 8.55 mg/dL High 0.50 - 1.30 mg/dL [facility] GFR/1.73 sq M.predicted among non-blacks MDRD (S/P/Bld) [Vol rate/Area] 7 mL/min/{1.73_m2} Low - PINF [facility] Comment on above: Calculations of cleopatra mated GFR are performed using the 2020 CKD-EPI Study Refit equation without the race variable for the IDMS-Traceable creatinine methods. https://jasn.asnjournals.org/content/early//ASN.558880 2568 Glucose [Mass/Vol] 181 mg/dL High 74 - 99 mg/dL [facility] Interpretation and review of laboratory results Abnormal [facility] Phosphate [Mass/Vol] 6.3 mg/dL High 2.5 - 4 .9 mg/dL [facility] Potassium [Moles/Vol] 4.4 mmol/L 3.5 - 5.3 mmol/L [facility] Sodium [Moles/Vol] 133 mmol/L Low 136 - 145 mmol/L [facility] Urea nitrogen [Mass/Vol] 75 mg/dL High 6 - 23 mg/dL [facility] Albumin BCP dye [Mass/Vol] 3.4 g/dL Normal 3.4-5.0 [facility] Comment on above: Order Comment: Befor e Hemodialysis Performed By: #### 2 4362-6 ####JASON Carrasquillo ([id number])[facility] ([facility])[address] [place] [address] Anion gap [Moles/Vol] 16 mmol/L Normal 10-20 [facility] Comment on above: Order Comment: Befor e Hemodialysis Performed By: #### 2 4362-6 ####JASON Carrasquillo ([id number])[facility] ([facility])[address] [place] [address] Calcium [Mass/Vol] 7.9 mg/dL Low 8.6-10.6 [facility] Comment on above: Order Comment: Befor e Hemodialysis Performed By: #### 2 4362-6 ####JASON Carrasquillo ([id number])[facility] ([facility])[address] [place] [address] Chloride [Moles/Vol] 95 mmol/L Low 98-107 [facility] Comment on above: Order Comment: Befor e Hemodialysis Performed By: #### 2 4362-6 ####JASON Carrasquillo ([id number])[facility] ([facility])[address] [place] [address] CO2 [Moles/Vol] 26 mmol/L Normal 21-32 [facility] Comment on above: Order Comment: Befor e Hemodialysis Performed By: #### 2 4362-6 ####JASON Carrasquillo ([id number])[facility] ([facility])[address] [place] [address] Creatinine [Mass/Vol] 8.55 mg/dL High 0.50-1.30 [facility] Comment on above: Order Comment: Befor e Hemodialysis Performed By: #### 2 4362-6 ####JASON Carrasquillo ([id number])[facility] ([facility])[address] [place] [address] Glomerular filtration rate/1.73 sq M.predicted 7 mL/min/1.73m*2 Low >60 [facility] Comment on above: Order Comment: Befor e Hemodialysis Result Comment: Calc ulations of estimated GFR are performed using the 2020 CKD-EPI Study Refit equation without the race variable for the IDMS-Traceable creatinine methods.https://jasn.asnjournals.org/content/early// N.9978107225 Performed By: #### 2 4362-6 ####JASON Carrasquillo ([id number])[facility] ([facility])[address] [place] [address] Glucose [Mass/Vol] 181 mg/dL High 74-99 [facility] Comment on above: Order Comment: Befor e Hemodialysis Performed By: #### 2 4362-6 ####JASON Carrasquillo ([id number])[facility] ([facility])[address] [place] [address] Phosphate [Mass/Vol] 6.3 mg/dL High 2.5-4.9 [facility] Comment on above: Order Comment: Befor e Hemodialysis Performed By: #### 2 4362-6 ####JASON Carrasquillo ([id number])[facility] ([facility])[address] [place] [address] Potassium [Moles/Vol] 4.4 mmol/L Normal 3.5-5.3 [facility] Comment on above: Order Comment: Befor e Hemodialysis Performed By: #### 2 4362-6 ####JASON Carrasquillo ([id number])[facility] ([facility])[address] [place] [address] Sodium [Moles/Vol] 133 mmol/L Low 136-145 [facility] Comment on above: Order Comment: Befor e Hemodialysis Performed By: #### 2 4362-6 ####JASON Carrasquillo ([id number])[facility] ([facility])[address] [place] [address] Urea nitrogen [Mass/Vol] 75 mg/dL High 11-29 [facility] Comment on above: Order Comment: Befor e Hemodialysis Performed By: #### 2 4362-6 ####JASON Carrasquillo ([id number])[facility] ([facility])[address] [place] [address] Tacrolimuson 10-29-2024 Tacrolimus (Bld) [Mass/Vol] 7.6 ng/mL Normal <=15.0 [facility] Comment on above: Order Comment: Befor e HemodialysisNOTE: Result was obtained using achemiluminescent microparticle immunoassay(CMIA) on the [employer] system.Optimal therapeutic ranges for immunosuppressantdrugs depend upon an individualpatient's current clinical state, type oforgan transplant, time post-transplant,co-administration of other immunosuppressants,and other clinical factors. The results ofthis test should be correlated with additionalclinical and laboratory data before changesin treatment regimens are made. Performed By: #### 1 1253-2 ####JASON Carrasquillo ([id number])[facility] ([facility])[address] [place] [address] Tacrolimus (Bld) [Mass/Vol]O rdered By: Nakia Jimenez on 10-29-2024 Interpretation and review of laboratory results Normal [facility] NOTE: Result was obtained using a chemiluminescent microparticle immunoassay (CMIA) on the [employer] system. Optimal therapeutic ranges for immunosuppressant drugs depend upon an individual patient's current clinical state, type of organ transplant, time post-transplant, co-administration of other immunosuppressants, and other clinical factors. The results of this test should be correlated with additional clinical and laboratory data before changes in treatment regimens are made. [facility] Tacrolimus levelOrdered By: Nakia Jimenez on 10-29-2024 Tacrolimus (Bld) [Mass/Vol] 7.6 ng/mL NINF - 15.0 ng/mL [facility] CBC panel Auto (Bld)on 10-27 Erythrocyte distribution width (RBC) [Ratio] 18 % High 11.5 - 14.5 % [facility] Hematocrit (Bld) [Volume fraction] 27.9 % Low 41.0 - 52.0 % [facility] Hemoglobin (Bld) [Mass/Vol] 9.1 g/dL Low 13.5 - 17.5 g/dL [facility] Interpretation and review of laboratory results Abnormal [facility] MCH (RBC) [Entitic mass] 24.7 pg Low 26.0 - 34.[address] [facility] MCHC (RBC) [Mass/Vol] 32.6 g/dL 32.0 - 36.0 g/dL [facility] MCV (RBC) [Entitic vol] 76 fL Low 80 - [address] [facility] Nucleated RBC/100 WBC (Bld) [Ratio] 0 % [facility] Platelets (Bld) [#/Vol] 113 10*3/uL Low [facility] RBC (Bld) [#/Vol] 3.69 10*6/uL [facility] WBC (Bld) [#/Vol] 5.8 10*3/uL [facility] Erythrocyte distribution width (RBC) [Ratio] 18.0 % High 11.5-14.5 [facility] Comment on above: Performed By: #### 5 8410-2 ####JASON Carrasquillo ([id number])[facility] ([facility])[address] [place] [address] Hematocrit (Bld) [Volume fraction] 27.9 % Low 41.0-52.0 [facility] Comment on above: Performed By: #### 5 8410-2 ####JASON Carrasquillo ([id number])[facility] ([facility])[address] [place] [address] Hemoglobin (Bld) [Mass/Vol] 9.1 g/dL Low 13.5-17.5 [facility] Comment on above: Performed By: #### 5 8410-2 ####JASON Carrasquillo ([id number])[facility] ([facility])[address] [place] [address] MCH (RBC) [Entitic mass] 24.7 pg Low 26.0-34.0 [facility] Comment on above: Performed By: #### 5 8410-2 ####JASON Carrasquillo ([id number])[facility] ([facility])[address] [place] [address] MCHC (RBC) [Mass/Vol] 32.6 g/dL Normal 32.0-36.0 [facility] Comment on above: Performed By: #### 5 8410-2 ####JASON Carrasquillo ([id number])[facility] ([facility])[address] [place] [address] MCV (RBC) [Entitic vol] 76 fL Low 80-100 [facility] Comment on above: Performed By: #### 5 8410-2 ####JASON Carrasquillo ([id number])[facility] ([facility])[address] [place] [address] Nucleated RBC/100 WBC (Bld) [Ratio] 0.0 /100 WBCs Normal 0.0-0.0 [facility] Comment on above: Performed By: #### 5 8410-2 ####JASON Carrasquillo ([id number])[facility] ([facility])[address] [place] [address] Platelets (Bld) [#/Vol] 113 x10*3/uL Low 150-450 [facility] Comment on above: Performed By: #### 5 8410-2 ####JASON Carrasquillo ([id number])[facility] ([facility])[address] [place] [address] RBC (Bld) [#/Vol] 3.69 x10*6/uL Low 4.50-5.90 [facility] Comment on above: Performed By: #### 5 8410-2 ####JASON Carrasquillo ([id number])[facility] ([facility])[address] [place] [address] WBC (Bld) [#/Vol] 5.8 x10*3/uL Normal 4.4-11.3 [facility] Comment on above: Performed By: #### 5 8410-2 ####JASON Carrasquillo ([id number])[facility] ([facility])[address] [place] [address] Magnesiumon 10-27-2024 Magnesium [Mass/Vol] 2.36 mg/dL 1.60 - 2.40 mg/dL [facility] Magnesium [Mass/Vol] 2.36 mg/dL Normal 1.60-2.40 [facility] Comment on above: Performed By: #### 1 9123-9 ####JASON Carrasquillo ([id number])[facility] ([facility])[address] [place] [address] Magnesium [Mass/Vol]on 10-27 Interpretation and review of laboratory results Normal [facility] No Panel Informationon 10-[address] [facility] Renal function 2000 panelon 10-27-2024 Albumin BCP dye [Mass/Vol] 3.1 g/dL Low 3.4 - 5.0 g/dL [facility] Anion gap [Moles/Vol] 19 mmol/L 10 - 20 mmol/L [facility] Calcium [Mass/Vol] 8.1 mg/dL Low 8.6 - 10. 6 mg/dL [facility] Chloride [Moles/Vol] 96 mmol/L Low 98 - 10 7 mmol/L [facility] CO2 [Moles/Vol] 23 mmol/L 21 - 32 mmol/L [facility] Creatinine [Mass/Vol] 10.43 mg/dL High 0.50 - 1.30 mg/dL [facility] GFR/1.73 sq M.predicted among non-blacks MDRD (S/P/Bld) [Vol rate/Area] 5 mL/min/{1.73_m2} Low - PINF [facility] Comment on above: Calculations of cleopatra mated GFR are performed using the 2020 CKD-EPI Study Refit equation without the race variable for the IDMS-Traceable creatinine methods. https://jasn.asnjournals.org/content/early//ASN.820869 2367 Glucose [Mass/Vol] 145 mg/dL High 74 - 99 mg/dL [facility] Interpretation and review of laboratory results Abnormal [facility] Phosphate [Mass/Vol] 7 mg/dL High 2.5 - 4 .9 mg/dL [facility] Potassium [Moles/Vol] 4 mmol/L 3.5 - 5.3 mmol/L [facility] Sodium [Moles/Vol] 134 mmol/L Low 136 - 145 mmol/L [facility] Urea nitrogen [Mass/Vol] 96 mg/dL Critically high 6 - 23 mg/dL [facility] Albumin BCP dye [Mass/Vol] 3.1 g/dL Low 3.4-5.0 [facility] Comment on above: Performed By: #### 2 4362-6 ####JASON Carrasquillo ([id number])[facility] ([facility])[address] [place] [address] Anion gap [Moles/Vol] 19 mmol/L Normal 10-20 [facility] Comment on above: Performed By: #### 2 4362-6 ####JASON Carrasquillo ([id number])[facility] ([facility])[id number] [place] [address] Calcium [Mass/Vol] 8.1 mg/dL Low 8.6-10.6 [facility] Comment on above: Performed By: #### 2 4362-6 ####JASON Carrasquillo ([id number])[facility] ([facility])[id number] [place] [address] Chloride [Moles/Vol] 96 mmol/L Low 98-107 [facility] Comment on above: Performed By: #### 2 4362-6 ####JASON Carrasquillo ([id number])[facility] ([facility])[id number] [place] [address] CO2 [Moles/Vol] 23 mmol/L Normal 21-32 [facility] Comment on above: Performed By: #### 2 4362-6 ####JASON Carrasquillo ([id number])[facility] [facility] ([facility])[address] [place] [address] Creatinine [Mass/Vol] 10.43 mg/dL High 0.50-1.30 [facility] Comment on above: Performed By: #### 2 4362-6 ####JASON Carrasquillo ([id number])[facility] ([facility])[address] [place] [address] Glomerular filtration rate/1.73 sq M.predicted 5 mL/min/1.73m*2 Low >60 [facility] Comment on above: Result Comment: Calc ulations of estimated GFR are performed using the 2020 CKD-EPI Study Refit equation without the race variable for the IDMS-Traceable creatinine methods.https://jasn.asnjournals.org/content/early/ N.6204619224 Performed By: #### 2 4362-6 ####JASON Carrasquillo ([id number])[facility] ([facility])[address] [place] [address] Glucose [Mass/Vol] 145 mg/dL High 74-99 [facility] Comment on above: Performed By: #### 2 4362-6 ####JASON Carrasquillo ([id number])[facility] ([facility])[address] [place] [address] Phosphate [Mass/Vol] 7.0 mg/dL High 2.5-4.9 [facility] Comment on above: Performed By: #### 2 4362-6 ####JASON Carrasquillo ([id number])[facility] ([facility])[address] [place] [address] Potassium [Moles/Vol] 4.0 mmol/L Normal 3.5-5.3 [facility] Comment on above: Performed By: #### 2 4362-6 ####JASON Carrasquillo ([id number])[facility] ([facility])[address] [place] [address] Sodium [Moles/Vol] 134 mmol/L Low 136-145 [facility] Comment on above: Performed By: #### 2 4362-6 ####JASON Carrasquillo ([id number])[facility] ([facility])[address] [place] [address] Urea nitrogen [Mass/Vol] 96 mg/dL Critically high 6-23 [facility] Comment on above: Performed By: #### 2 4362-6 ####JASON Carrasquillo ([id number])[facility] ([facility])[id number] [place] [address] TacrolimusOrdered By: Eloy Ibarra on 10-27-2024 Tacrolimus (Bld) [Mass/Vol] 7.2 ng/mL NINF - 15.0 ng/mL [facility] Tacrolimuson 10-27-2024 Tacrolimus (Bld) [Mass/Vol] 7.2 ng/mL Normal <=15.0 [facility] Comment on above: Order Comment: NOTE: Result was obtained using achemiluminescent microparticle immunoassay(CMIA) on the [employer] system.Optimal therapeutic ranges for immunosuppressantdrugs depend upon an individualpatient's current clinical state, type oforgan transplant, time post-transplant,co-administration of other immunosuppressants,and other clinical factors. The results ofthis test should be correlated with additionalclinical and laboratory data before changesin treatment regimens are made. Performed By: #### 1 1253-2 ####JASON Carrasquillo ([id number])[facility] ([facility])[address] [place] [address] Tacrolimus (Bld) [Mass/Vol]O rdered By: Eloy Ibarra on 10-27-2024 Interpretation and review of laboratory results Normal [facility] NOTE: Result was obtained using a chemiluminescent microparticle immunoassay (CMIA) on the [employer] i system. Optimal therapeutic ranges for immunosuppressant drugs depend upon an individual patient's current clinical state, type of organ transplant, time post-transplant, co-administration of other immunosuppressants, and other clinical factors. The results of this test should be correlated with additional clinical and laboratory data before changes in treatment regimens are made. [facility] CBC panel Auto (Bld)on 10-23 Erythrocyte distribution width (RBC) [Ratio] 18.4 % High 11.5 - 14.5 % [facility] Hematocrit (Bld) [Volume fraction] 28.7 % Low 41.0 - 52.0 % [facility] Hemoglobin (Bld) [Mass/Vol] 9.1 g/dL Low 13.5 - 17.5 g/dL [facility] Interpretation and review of laboratory results Abnormal [facility] MCH (RBC) [Entitic mass] 24.8 pg Low 26.0 - 34.[address] [facility] MCHC (RBC) [Mass/Vol] 31.7 g/dL Low 32.0 - 36.0 g/dL [facility] MCV (RBC) [Entitic vol] 78 fL Low 80 - [address] [facility] Nucleated RBC/100 WBC (Bld) [Ratio] 0 % [facility] Platelets (Bld) [#/Vol] 103 10*3/uL Low [facility] RBC (Bld) [#/Vol] 3.67 10*6/uL [facility] WBC (Bld) [#/Vol] 3.9 10*3/uL [facility] Erythrocyte distribution width (RBC) [Ratio] 18.4 % High 11.5-14.5 [facility] Comment on above: Performed By: #### 5 8410-2 ####JASON Carrasquillo ([id number])[facility] ([facility])[address] [place] [address] Hematocrit (Bld) [Volume fraction] 28.7 % Low 41.0-52.0 [facility] Comment on above: Performed By: #### 5 8410-2 ####JASON Carrasquillo ([id number])[facility] ([facility])[id number] [place] [address] Hemoglobin (Bld) [Mass/Vol] 9.1 g/dL Low 13.5-17.5 [facility] Comment on above: Performed By: #### 5 8410-2 ####JASON Carrasquillo ([id number])[facility] ([facility])[address] [place] [address] MCH (RBC) [Entitic mass] 24.8 pg Low 26.0-34.0 [facility] Comment on above: Performed By: #### 5 8410-2 ####JASON Carrasquillo ([id number])[facility] ([facility])[address] [place] [address] MCHC (RBC) [Mass/Vol] 31.7 g/dL Low 32.0-36.0 [facility] Comment on above: Performed By: #### 5 8410-2 ####JASON Carrasquillo ([id number])[facility] ([facility])[address] [place] [address] MCV (RBC) [Entitic vol] 78 fL Low 80-100 [facility] Comment on above: Performed By: #### 5 8410-2 ####JASON Carrasquillo ([id number])[facility] ([facility])[address] [place] [address] Nucleated RBC/100 WBC (Bld) [Ratio] 0.0 /100 WBCs Normal 0.0-0.0 [facility] Comment on above: Performed By: #### 5 8410-2 ####JASON Carrasquillo ([id number])[facility] ([facility])[address] [place] [address] Platelets (Bld) [#/Vol] 103 x10*3/uL Low 150-450 [facility] Comment on above: Performed By: #### 5 8410-2 ####JASON Carrasquillo ([id number])[facility] ([facility])[address] [place] [address] RBC (Bld) [#/Vol] 3.67 x10*6/uL Low 4.50-5.90 [facility] Comment on above: Performed By: #### 5 8410-2 ####JASON Carrasquillo ([id number])[facility] ([facility])[address] [place] [address] WBC (Bld) [#/Vol] 3.9 x10*3/uL Low 4.4-11.3 [facility] Comment on above: Performed By: #### 5 8410-2 ####JASON Carrasquillo ([id number])[facility] ([facility])[address] [place] [address] Laboratory - Chemistry and C hemistry - challengeon 10-23-2024 Magnesium [Mass/Vol] 2.28 mg/dL 1.60 - 2.40 mg/dL [facility] Laboratory - Drug toxicology Ordered By: Rhonda Boggs on 10-23-2024 Tacrolimus (Bld) [Mass/Vol] 5.1 ng/mL NINF - 15.0 ng/mL [facility] Magnesiumon 10-23-2024 Magnesium [Mass/Vol] 2.28 mg/dL Normal 1.60-2.40 [facility] Comment on above: Performed By: #### 1 9123-9 ####JASON Carrasquillo ([id number])[facility] ([facility])[address] [place] [address] Magnesium [Mass/Vol]on 10-23 Interpretation and review of laboratory results Normal [facility] No Panel Informationon 10-[address] [facility] Renal function 2000 panelon 10-23-2024 Albumin BCP dye [Mass/Vol] 3.1 g/dL Low 3.4 - 5.0 g/dL [facility] Anion gap [Moles/Vol] 20 mmol/L 10 - 20 mmol/L [facility] Calcium [Mass/Vol] 8.3 mg/dL Low 8.6 - 10. 6 mg/dL [facility] Chloride [Moles/Vol] 97 mmol/L Low 98 - 10 7 mmol/L [facility] CO2 [Moles/Vol] 24 mmol/L 21 - 32 mmol/L [facility] Creatinine [Mass/Vol] 8.33 mg/dL High 0.50 - 1.30 mg/dL [facility] GFR/1.73 sq M.predicted among non-blacks MDRD (S/P/Bld) [Vol rate/Area] 7 mL/min/{1.73_m2} Low - PINF [facility] Comment on above: Calculations of cleopatra mated GFR are performed using the 2020 CKD-EPI Study Refit equation without the race variable for the IDMS-Traceable creatinine methods. https://jasn.asnjournals.org/content//ASN.794965 7187 Glucose [Mass/Vol] 181 mg/dL High 74 - 99 mg/dL [facility] Interpretation and review of laboratory results Abnormal [facility] Phosphate [Mass/Vol] 5.6 mg/dL High 2.5 - 4 .9 mg/dL [facility] Potassium [Moles/Vol] 4.5 mmol/L 3.5 - 5.3 mmol/L [facility] Sodium [Moles/Vol] 136 mmol/L 136 - 145 mmol/L [facility] Urea nitrogen [Mass/Vol] 70 mg/dL High 6 - 23 mg/dL [facility] Albumin BCP dye [Mass/Vol] 3.1 g/dL Low 3.4-5.0 [facility] Comment on above: Performed By: #### 2 4362-6 ####JASON Carrasquillo ([id number])[facility] ([facility])[address] [place] [address] Anion gap [Moles/Vol] 20 mmol/L Normal 10-20 [facility] Comment on above: Performed By: #### 2 4362-6 ####JASON Carrasquillo ([id number])[facility] ([facility])[address] [place] [address] Calcium [Mass/Vol] 8.3 mg/dL Low 8.6-10.6 [facility] Comment on above: Performed By: #### 2 4362-6 ####JASON Carrasquillo ([id number])[facility] ([facility])[address] [place] [address] Chloride [Moles/Vol] 97 mmol/L Low 98-107 [facility] Comment on above: Performed By: #### 2 4362-6 ####JASON Carrasquillo ([id number])[facility] ([facility])[address] [place] [address] CO2 [Moles/Vol] 24 mmol/L Normal 21-32 [facility] Comment on above: Performed By: #### 2 4362-6 ####JASON JENNINGS L ([id number])[facility] ([facility])[address] [place] [address] Creatinine [Mass/Vol] 8.33 mg/dL High 0.50-1.30 [facility] Comment on above: Performed By: #### 2 4362-6 ####JASON Carrasquillo ([id number])[facility] ([facility])[address] [place] [address] Glomerular filtration rate/1.73 sq M.predicted 7 mL/min/1.73m*2 Low >60 [facility] Comment on above: Result Comment: Calc ulations of estimated GFR are performed using the 2020 CKD-EPI Study Refit equation without the race variable for the IDMS-Traceable creatinine methods.https://jasn.asnjournals.org/content// N.0806172072 Performed By: #### 2 4362-6 ####JASON Carrasquillo ([id number])[facility] ([facility])[address] [place] [address] Glucose [Mass/Vol] 181 mg/dL High 74-99 [facility] Comment on above: Performed By: #### 2 4362-6 ####JASON JENNINGS L ([id number])[facility] ([facility])[address] [place] [address] Phosphate [Mass/Vol] 5.6 mg/dL High 2.5-4.9 [facility] Comment on above: Performed By: #### 2 4362-6 ####JASON JENNINGS L ([id number])[facility] ([facility])[address] [place] [address] Potassium [Moles/Vol] 4.5 mmol/L Normal 3.5-5.3 [facility] Comment on above: Performed By: #### 2 4362-6 ####JASON Carrasquillo ([id number])[facility] ([facility])[address] [place] [address] Sodium [Moles/Vol] 136 mmol/L Normal 136-145 [facility] Comment on above: Performed By: #### 2 4362-6 ####JASON Carrasquillo ([id number])[facility] ([facility])[address] [place] [address] Urea nitrogen [Mass/Vol] 70 mg/dL High 6-23 [facility] Comment on above: Performed By: #### 2 4362-6 ####JASON Carrasquillo ([id number])[facility] ([facility])[address] [place] [address] Tacrolimuson 10-23-2024 Tacrolimus (Bld) [Mass/Vol] 5.1 ng/mL Normal <=15.0 [facility] Comment on above: Order Comment: NOTE: Result was obtained using achemiluminescent microparticle immunoassay(CMIA) on the [employer] system.Optimal therapeutic ranges for immunosuppressantdrugs depend upon an individualpatient's current clinical state, type oforgan transplant, time post-transplant,co-administration of other immunosuppressants,and other clinical factors. The results ofthis test should be correlated with additionalclinical and laboratory data before changesin treatment regimens are made. Performed By: #### 1 1253-2 ####JASON Carrasquillo ([id number])[facility] ([facility])[address] [place] [address] Tacrolimus (Bld) [Mass/Vol]O rdered By: Rhonda Boggs on 10-23-2024 Interpretation and review of laboratory results Normal [facility] NOTE: Result was obtained using a chemiluminescent microparticle immunoassay (CMIA) on the [employer] system. Optimal therapeutic ranges for immunosuppressant drugs depend upon an individual patient's current clinical state, type of organ transplant, time post-transplant, co-administration of other immunosuppressants, and other clinical factors. The results of this test should be correlated with additional clinical and laboratory data before changes in treatment regimens are made. [facility] CBC panel Auto (Bld)on 10-21 Erythrocyte distribution width (RBC) [Ratio] 18.5 % High 11.5 - 14.5 % [facility] Hematocrit (Bld) [Volume fraction] 30.1 % Low 41.0 - 52.0 % [facility] Hemoglobin (Bld) [Mass/Vol] 9.7 g/dL Low 13.5 - 17.5 g/dL [facility] Interpretation and review of laboratory results Abnormal [facility] MCH (RBC) [Entitic mass] 24.9 pg Low 26.0 - 34.[address] [facility] MCHC (RBC) [Mass/Vol] 32.2 g/dL 32.0 - 36.0 g/dL [facility] MCV (RBC) [Entitic vol] 77 fL Low 80 - [address] [facility] Nucleated RBC/100 WBC (Bld) [Ratio] 0 % [facility] Platelets (Bld) [#/Vol] 100 10*3/uL Low [facility] RBC (Bld) [#/Vol] 3.89 10*6/uL Low [facility] WBC (Bld) [#/Vol] 4 10*3/uL Low [facility] Erythrocyte distribution width (RBC) [Ratio] 18.5 % High 11.5-14.5 [facility] Comment on above: Performed By: #### 5 8410-2 ####JASON Carrasquillo ([id number])[facility] ([facility])[address] [place] [address] Hematocrit (Bld) [Volume fraction] 30.1 % Low 41.0-52.0 [facility] Comment on above: Performed By: #### 5 8410-2 ####JASON Carrasquillo ([id number])[facility] ([facility])[address] [place] [address] Hemoglobin (Bld) [Mass/Vol] 9.7 g/dL Low 13.5-17.5 [facility] Comment on above: Performed By: #### 5 8410-2 ####JASON Carrasquillo ([id number])[facility] ([facility])[address] [place] [address] MCH (RBC) [Entitic mass] 24.9 pg Low 26.0-34.0 [facility] Comment on above: Performed By: #### 5 8410-2 ####JASON Carrasquillo ([id number])[facility] ([facility])[address] [place] [address] MCHC (RBC) [Mass/Vol] 32.2 g/dL Normal 32.0-36.0 [facility] Comment on above: Performed By: #### 5 8410-2 ####JASON Carrasquillo ([id number])[facility] ([facility])[address] [place] [address] MCV (RBC) [Entitic vol] 77 fL Low 80-100 [facility] Comment on above: Performed By: #### 5 8410-2 ####JASON Carrasquillo ([id number])[facility] ([facility])[address] [place] [address] Nucleated RBC/100 WBC (Bld) [Ratio] 0.0 /100 WBCs Normal 0.0-0.0 [facility] Comment on above: Performed By: #### 5 8410-2 ####JASON Carrasquillo ([id number])[facility] ([facility])[address] [place] [address] Platelets (Bld) [#/Vol] 100 x10*3/uL Low 150-450 [facility] Comment on above: Performed By: #### 5 8410-2 ####JASON Carrasquillo ([id number])[facility] ([facility])[address] [place] [address] RBC (Bld) [#/Vol] 3.89 x10*6/uL Low 4.50-5.90 [facility] Comment on above: Performed By: #### 5 8410-2 ####JASON Carrasquillo ([id number])[facility] ([facility])[address] [place] [address] WBC (Bld) [#/Vol] 4.0 x10*3/uL Low 4.4-11.3 [facility] Comment on above: Performed By: #### 5 8410-2 ####JASON Carrasquillo ([id number])[facility] ([facility])[address] [place] [address] Calcium, Ionizedon Calcium.ionized (Bld) [Moles/Vol] 1.08 mmol/L Low 1.1 - 1.33 mmol/L [facility] Calcium.ionizedon 10-21-2024 Calcium.ionized (Bld) [Moles/Vol] 1.08 mmol/L Low 1.1-1.33 [facility] Comment on above: Result Comment: The performance characteristics of ionized calcium testedin heparinized plasma or serum have [facility] performed.Testing on heparinized plasma or serum is not approved bythe FDA; however, such approval is not necessary. Performed By: #### 1 994-3 ####JASON Carrasquillo ([id number])[facility] ([facility])[address] [place] [address] Calcium.ionized (Bld) [Moles /Vol]on 10-21-2024 Interpretation and review of laboratory results Abnormal [facility] Glucose Test strip manual (B ld) [Mass/Vol]on 10-21-2024 Glucose [Mass/Vol] 92 mg/dL 74 - 99 mg/dL [facility] Interpretation and review of laboratory results Normal [facility] Glucose [Mass/Vol] 92 mg/dL Normal 74-99 [facility] Comment on above: Performed By: #### 2 341-6 ####JASON Carrasquillo ([id number])[facility] ([facility])[address] [place] [address] Glucose [Mass/Vol] 106 mg/dL High 74 - 99 mg/dL [facility] Interpretation and review of laboratory results Abnormal [facility] Glucose [Mass/Vol] 106 mg/dL High 74-99 [facility] Comment on above: Performed By: #### 2 341-6 ####JASON Carrasquillo ([id number])[facility] ([facility])[address] [place] [address] Glucose [Mass/Vol] 103 mg/dL High 74 - 99 mg/dL [facility] Interpretation and review of laboratory results Abnormal [facility] Glucose [Mass/Vol] 103 mg/dL High 74-99 [facility] Comment on above: Performed By: #### 2 341-6 ####JASON Carrasquillo ([id number])[facility] ([facility])[address] [place] [address] Magnesiumon 10-21-2024 Magnesium [Mass/Vol] 2.43 mg/dL High 1.60 - 2.40 mg/dL [facility] Magnesium [Mass/Vol] 2.43 mg/dL High 1.60-2.40 [facility] Comment on above: Performed By: #### 1 9123-9 ####JASON Carrasquillo ([id number])[facility] ([facility])[address] [place] [address] No Panel Informationon 10-21 Interpretation and review of laboratory results Abnormal [facility] Renal function 2000 panelon 10-21-2024 Albumin BCP dye [Mass/Vol] 3 g/dL Low 3.4 - 5.0 g/dL [facility] Anion gap [Moles/Vol] 17 mmol/L 10 - 20 mmol/L [facility] Calcium [Mass/Vol] 8.5 mg/dL Low 8.6 - 10. 6 mg/dL [facility] Chloride [Moles/Vol] 95 mmol/L Low 98 - 10 7 mmol/L [facility] CO2 [Moles/Vol] 28 mmol/L 21 - 32 mmol/L [facility] Creatinine [Mass/Vol] 9.3 mg/dL High 0.50 - 1.30 mg/dL [facility] GFR/1.73 sq M.predicted among non-blacks MDRD (S/P/Bld) [Vol rate/Area] 6 mL/min/{1.73_m2} Low - PINF [facility] Glucose [Mass/Vol] 81 mg/dL 74 - 99 mg/dL [facility] Phosphate [Mass/Vol] 5.8 mg/dL High 2.5 - 4 .9 mg/dL [facility] Potassium [Moles/Vol] 4.7 mmol/L 3.5 - 5.3 mmol/L [facility] Sodium [Moles/Vol] 135 mmol/L Low 136 - 145 mmol/L [facility] Urea nitrogen [Mass/Vol] 85 mg/dL High 6 - 23 mg/dL [facility] Albumin BCP dye [Mass/Vol] 3.0 g/dL Low 3.4-5.0 [facility] Comment on above: Performed By: #### 2 4362-6 ####JASON Carrasquillo ([id number])[facility] ([facility])[address] [place] [address] Anion gap [Moles/Vol] 17 mmol/L Normal 10-20 [facility] Comment on above: Performed By: #### 2 4362-6 ####JASON Carrasquillo ([id number])[facility] ([facility])[address] [place] [address] Calcium [Mass/Vol] 8.5 mg/dL Low 8.6-10.6 [facility] Comment on above: Performed By: #### 2 4362-6 ####JASON Carrasquillo ([id number])[facility] ([facility])[address] [place] [address] Chloride [Moles/Vol] 95 mmol/L Low 98-107 [facility] Comment on above: Performed By: #### 2 4362-6 ####JASON Carrasquillo ([id number])[facility] ([facility])[address] [place] [address] CO2 [Moles/Vol] 28 mmol/L Normal 21-32 [facility] Comment on above: Performed By: #### 2 4362-6 ####JASON Carrasquillo ([id number])[facility] ([facility])[address] [facility] [place] [address] Creatinine [Mass/Vol] 9.30 mg/dL High 0.50-1.30 [facility] Comment on above: Performed By: #### 2 4362-6 ####JASON Carrasquillo ([id number])[facility] ([facility])[address] [place] [address] Glomerular filtration rate/1.73 sq M.predicted 6 mL/min/1.73m*2 Low >60 [facility] Comment on above: Result Comment: Calc ulations of estimated GFR are performed using the 2020 CKD-EPI Study Refit equation without the race variable for the IDMS-Traceable creatinine methods.https://jasn.asnjournals.org/content/early// N.1966212230 Performed By: #### 2 4362-6 ####JASON Carrasquillo ([id number])[facility] ([facility])[address] [place] [address] Glucose [Mass/Vol] 81 mg/dL Normal 74-99 [facility] Comment on above: Performed By: #### 2 4362-6 ####JASON Carrasquillo ([id number])[facility] ([facility])[address] [place] [address] Phosphate [Mass/Vol] 5.8 mg/dL High 2.5-4.9 [facility] Comment on above: Performed By: #### 2 4362-6 ####JASON JENNINGS L ([id number])[facility] ([facility])[address] [facility] [place] [address] Potassium [Moles/Vol] 4.7 mmol/L Normal 3.5-5.3 [facility] Comment on above: Performed By: #### 2 4362-6 ####JASON Carrasquillo ([id number])[facility] ([facility])[address] [place] [address] Sodium [Moles/Vol] 135 mmol/L Low 136-145 [facility] Comment on above: Performed By: #### 2 4362-6 ####JASON Carrasquillo ([id number])[facility] ([facility])[address] [place] [address] Urea nitrogen [Mass/Vol] 85 mg/dL High 6-23 [facility] Comment on above: Performed By: #### 2 4362-6 ####JASON Carrasquillo ([id number])[facility] ([facility])[id number] [place] [address] Tacrolimuson 10-21-2024 Tacrolimus (Bld) [Mass/Vol] 3.9 ng/mL NINF - 15.0 ng/mL [facility] Work Phone: Tacrolimus (Bld) [Mass/Vol] 3.9 ng/mL Normal <=15.0 [facility] Comment on above: Order Comment: NOTE: Result was obtained using achemiluminescent microparticle immunoassay(CMIA) on the [employer] system.Optimal therapeutic ranges for immunosuppressantdrugs depend upon an individualpatient's current clinical state, type oforgan transplant, time post-transplant,co-administration of other immunosuppressants,and other clinical factors. The results ofthis test should be correlated with additionalclinical and laboratory data before changesin treatment regimens are made. Performed By: #### 1 1253-2 ####JASON Carrasquillo ([id number])[facility] ([facility])[id number] [place] [address] Tacrolimus (Bld) [Mass/Vol]o n 10-21-2024 Interpretation and review of laboratory results Normal [facility] Work Phone: [facility] Work Phone: [facility] Work Phone: Blood type and Indirect anti body screen panel (Bld)on 10-20-2024 ABO group Nom (Bld) B [facility] Blood group antibody screen Ql Negative [facility] D Ag Ql (Bld) Positive [facility] ABO group Nom (Bld) B Normal [facility] Comment on above: Performed By: #### 3 4532-2 ####JASON Carrasquillo ([id number])[facility] ([facility])[address] [place] [address] Blood group antibody screen Ql Negative Normal [facility] Comment on above: Performed By: #### 3 4532-2 ####JASON Carrasquillo ([id number])[facility] ([facility])[address] [place] [address] D Ag Ql (Bld) Positive [facility] Comment on above: Performed By: #### 3 4532-2 ####JASON Carrasquillo ([id number])[facility] ([facility])[address] [place] [address] CBC W Auto Differential pane l (Bld)on 10-20-2024 Basophils (Bld) [#/Vol] 0.01 10*3/uL [facility] Basophils/100 WBC (Bld) 0.4 % 0.0 - 2.0 % [facility] Eosinophils (Bld) [#/Vol] 0.04 10*3/uL [facility] Eosinophils/100 WBC (Bld) 1.5 % 0.0 - 6.0 % [facility] Erythrocyte distribution width (RBC) [Ratio] 17.4 % High 11.5 - 14.5 % [facility] Hematocrit (Bld) [Volume fraction] 21.9 % Low 41.0 - 52.0 % [facility] Hemoglobin (Bld) [Mass/Vol] 6.9 g/dL Low 13.5 - 17.5 g/dL [facility] Immature granulocytes (Bld) [#/Vol] 0.01 10*3/uL [facility] Immature granulocytes/100 WBC (Bld) 0.4 % 0.0 - 0.9 % [facility] Interpretation and review of laboratory results Abnormal [facility] Lymphocytes (Bld) [#/Vol] 0.11 10*3/uL Low [facility] Lymphocytes/100 WBC (Bld) 4.2 % 13.0 - 44.0 % [facility] MCH (RBC) [Entitic mass] 23.5 pg Low 26.0 - 34.[address] [facility] MCHC (RBC) [Mass/Vol] 31.5 g/dL Low 32.0 - 36.0 g/dL [facility] MCV (RBC) [Entitic vol] 75 fL Low 80 - [address] [facility] Monocytes (Bld) [#/Vol] 0.2 10*3/uL [facility] Monocytes/100 WBC (Bld) 7.7 % 2.0 - 10.0 % [facility] Neutrophils (Bld) [#/Vol] 2.22 10*3/uL [facility] Neutrophils/100 WBC (Bld) 85.8 % 40.0 - 80.0 % [facility] Nucleated RBC/100 WBC (Bld) [Ratio] 0 % [facility] Platelets (Bld) [#/Vol] 88 10*3/uL Low [facility] RBC (Bld) [#/Vol] 2.94 10*6/uL [facility] WBC (Bld) [#/Vol] 2.6 10*3/uL [facility] Basophils (Bld) [#/Vol] 0.01 x10*3/uL Normal 0.00-0.10 [facility] Comment on above: Performed By: #### 5 7021-8 ####JASON Carrasquillo ([id number])[facility] ([facility])[address] [place] [address] Basophils/100 WBC (Bld) 0.4 % Normal 0.0-2.0 [facility] Comment on above: Performed By: #### 5 7021-8 ####JASON Carrasquillo ([id number])[facility] ([facility])[address] [place] [address] Eosinophils (Bld) [#/Vol] 0.04 x10*3/uL Normal 0.00-0.70 [facility] Comment on above: Performed By: #### 5 7021-8 ####JASON Carrasquillo ([id number])[facility] ([facility])[address] [place] [address] Eosinophils/100 WBC (Bld) 1.5 % Normal 0.0-6.0 [facility] Comment on above: Performed By: #### 5 7021-8 ####JASON Carrasquillo ([id number])[facility] ([facility])[address] [place] [address] Erythrocyte distribution width (RBC) [Ratio] 17.4 % High 11.5-14.5 [facility] Comment on above: Performed By: #### 5 7021-8 ####JASON Carrasquillo ([id number])[facility] ([facility])[id number] [place] [address] Hematocrit (Bld) [Volume fraction] 21.9 % Low 41.0-52.0 [facility] Comment on above: Performed By: #### 5 7021-8 ####JASON Carrasquillo ([id number])[facility] ([facility])[id number] [place] [address] Hemoglobin (Bld) [Mass/Vol] 6.9 g/dL Low 13.5-17.5 [facility] Comment on above: Performed By: #### 5 7021-8 ####JASON Carrasquillo ([id number])[facility] ([facility])[address] [place] [address] Immature granulocytes (Bld) [#/Vol] 0.01 x10*3/uL Normal 0.00-0.70 [facility] Comment on above: Performed By: #### 5 7021-8 ####JASON Carrasquillo ([id number])[facility] ([facility])[id number] [place] [address] Immature granulocytes/100 WBC (Bld) 0.4 % Normal 0.0-0.9 [facility] Comment on above: Result Comment: Shantell ture Granulocyte Count (IG) includes promyelocytes, myelocytes and metamyelocytes but does not include bands. Percent differential counts (%) should be interpreted in the context of the absolute cell counts (cells/UL). Performed By: #### 5 7021-8 ####JASON Carrasquillo ([id number])[facility] ([facility])[address] [place] [address] Lymphocytes (Bld) [#/Vol] 0.11 x10*3/uL Low 1.20-4.80 [facility] Comment on above: Performed By: #### 5 7021-8 ####JASON Carrasquillo ([id number])[facility] ([facility])[address] [place] [address] Lymphocytes/100 WBC (Bld) 4.2 % Normal 13.0-44.0 [facility] Comment on above: Performed By: #### 5 7021-8 ####JASON Carrasquillo ([id number])[facility] ([facility])[address] [place] [address] MCH (RBC) [Entitic mass] 23.5 pg Low 26.0-34.0 [facility] Comment on above: Performed By: #### 5 7021-8 ####JASON Carrasquillo ([id number])[facility] ([facility])[address] [place] [address] MCHC (RBC) [Mass/Vol] 31.5 g/dL Low 32.0-36.0 [facility] Comment on above: Performed By: #### 5 7021-8 ####JASON Carrasquillo ([id number])[facility] ([facility])[address] [place] [address] MCV (RBC) [Entitic vol] 75 fL Low 80-100 [facility] Comment on above: Performed By: #### 5 7021-8 ####JASON Carrasquillo ([id number])[facility] ([facility])[address] [place] [address] Monocytes (Bld) [#/Vol] 0.20 x10*3/uL Normal 0.10-1.00 [facility] Comment on above: Performed By: #### 5 7021-8 ####JASON Carrasquillo ([id number])[facility] ([facility])[address] [place] [address] Monocytes/100 WBC (Bld) 7.7 % Normal 2.0-10.0 [facility] Comment on above: Performed By: #### 5 7021-8 ####JASON Carrasquillo ([id number])[facility] ([facility])[address] [place] [address] Neutrophils (Bld) [#/Vol] 2.22 x10*3/uL Normal 1.20-7.70 [facility] Comment on above: Result Comment: Perc ent differential counts (%) should be interpreted in the context of the absolute cell counts (cells/uL). Performed By: #### 5 7021-8 ####JASON Carrasquillo ([id number])[facility] ([facility])[address] [place] [address] Neutrophils/100 WBC (Bld) 85.8 % Normal 40.0-80.0 [facility] Comment on above: Performed By: #### 5 7021-8 ####JASON Carrasquillo ([id number])[facility] ([facility])[address] [place] [address] Nucleated RBC/100 WBC (Bld) [Ratio] 0.0 /100 WBCs Normal 0.0-0.0 [facility] Comment on above: Performed By: #### 5 7021-8 ####JASON Carrasquillo ([id number])[facility] ([facility])[address] [place] [address] Platelets (Bld) [#/Vol] 88 x10*3/uL Low 150-450 [facility] Comment on above: Performed By: #### 5 7021-8 ####JASON Carrasquillo ([id number])[facility] ([facility])[address] [place] [address] RBC (Bld) [#/Vol] 2.94 x10*6/uL Low 4.50-5.90 [facility] Comment on above: Performed By: #### 5 7021-8 ####JASON Carrasquillo ([id number])[facility] ([facility])[address] [place] [address] WBC (Bld) [#/Vol] 2.6 x10*3/uL Low 4.4-11.3 [facility] Comment on above: Performed By: #### 5 7021-8 ####JASON Carrasquillo ([id number])[facility] ([facility])[address] [place] [address] Calcium, Ionizedon Calcium.ionized (Bld) [Moles/Vol] 1.04 mmol/L Low 1.1 - 1.33 mmol/L [facility] Calcium.ionizedon 10-20-2024 Calcium.ionized (Bld) [Moles/Vol] 1.04 mmol/L Low 1.1-1.33 [facility] Comment on above: Result Comment: The performance characteristics of ionized calcium testedin heparinized plasma or serum have [facility] where [facility] is performed.Testing on heparinized plasma or serum is not approved bythe FDA; however, such approval is not necessary. Performed By: #### 1 994-3 ####JASON Carrasquillo ([id number])[facility] ([facility])[address] [place] [address] Calcium.ionized (Bld) [Moles /Vol]on 10-20-2024 Interpretation and review of laboratory results Abnormal [facility] Glucose Test strip manual (B ld) [Mass/Vol]on 10-20-2024 Glucose [Mass/Vol] 126 mg/dL High 74 - 99 mg/dL [facility] Interpretation and review of laboratory results Abnormal [facility] Glucose [Mass/Vol] 126 mg/dL High 74-99 [facility] Comment on above: Performed By: #### 2 341-6 ####JASON Carrasquillo ([id number])[facility] ([facility])[address] [place] [address] Glucose [Mass/Vol] 120 mg/dL High 74 - 99 mg/dL [facility] Interpretation and review of laboratory results Abnormal [facility] Glucose [Mass/Vol] 120 mg/dL High 74-99 [facility] Comment on above: Performed By: #### 2 341-6 ####JASON Carrasquillo ([id number])[facility] ([facility])[address] [place] [address] Glucose [Mass/Vol] 118 mg/dL High 74 - 99 mg/dL [facility] Interpretation and review of laboratory results Abnormal [facility] Glucose [Mass/Vol] 118 mg/dL High 74-99 [facility] Comment on above: Performed By: #### 2 341-6 ####JASON Carrasquillo ([id number])[facility] ([facility])[address] [place] [address] Glucose [Mass/Vol] 106 mg/dL High 74 - 99 mg/dL [facility] Interpretation and review of laboratory results Abnormal [facility] Glucose [Mass/Vol] 106 mg/dL High 74-99 [facility] Comment on above: Performed By: #### 2 341-6 ####JASON Carrasquillo ([id number])[facility] ([facility])[address] [place] [address] Magnesiumon 10-20-2024 Magnesium [Mass/Vol] 2.25 mg/dL 1.60 - 2.40 mg/dL [facility] Magnesium [Mass/Vol] 2.25 mg/dL Normal 1.60-2.40 [facility] Comment on above: Performed By: #### 1 9123-9 ####JASON Carrasquillo ([id number])[facility] ([facility])[address] [place] [address] Magnesium [Mass/Vol]on 10-20 Interpretation and review of laboratory results Normal [facility] No Panel Informationon 10-20 PRODUCT BLOOD TYPE 7300 [facility] PRODUCT CODE [id number] [facility] Unit ABO B [facility] Unit RH Positive [facility] UNIT VOLUME [address] [facility] XM INTEP COMP [facility] Prepare RBC: 1 Unitson 10-20 Blood Expiration Date 11/01/2024 11:59:00 PM EDT [facility] Dispense Status IS [facility] PRODUCT BLOOD TYPE 7300 [facility] PRODUCT CODE [id number] [facility] Unit ABO B [facility] Unit Number [id number] [facility] Unit RH Positive [facility] UNIT VOLUME [address] [facility] XM INTEP COMP [facility] Prepare RBC: 2 Unitson 10-20 Blood Expiration Date 11/19/2024 11:59:00 PM EDT [facility] Blood Expiration Date 11/20/2024 11:59:00 PM EDT [facility] Dispense Status XM [facility] Dispense Status TR [facility] Unit Number [id number] [facility] Unit Number [id number] [facility] Renal function 2000 panelon 10-20-2024 Albumin BCP dye [Mass/Vol] 3.1 g/dL Low 3.4-5.[address] [facility] Comment on above: Performed By: #### 2 4362-6 ####JASON Carrasquillo ([id number])[facility] ([facility])[address] [place] [address] Anion gap [Moles/Vol] 20 mmol/L Normal 10-20 [facility] Comment on above: Performed By: #### 2 4362-6 ####JASON Carrasquillo ([id number])[facility] ([facility])[address] [place] [address] Calcium [Mass/Vol] 8.2 mg/dL Low 8.6-10.6 [facility] Comment on above: Performed By: #### 2 4362-6 ####JASON Carrasquillo ([id number])[facility] ([facility])[address] [place] [address] Chloride [Moles/Vol] 94 mmol/L Low 98-107 [facility] Comment on above: Performed By: #### 2 4362-6 ####JASON Carrasquillo ([id number])[facility] ([facility])[address] [place] [address] CO2 [Moles/Vol] 23 mmol/L Normal 21-32 [facility] Comment on above: Performed By: #### 2 4362-6 ####JASON Carrasquillo ([id number])[facility] ([facility])[address] [place] [address] Creatinine [Mass/Vol] 8.76 mg/dL High 0.50-1.30 [facility] Comment on above: Performed By: #### 2 4362-6 ####JASON Carrasquillo ([id number])[facility] ([facility])[address] [place] [address] GFR/1.73 sq M.predicted among non-blacks MDRD (S/P/Bld) [Vol rate/Area] 7 mL/min/{1.73_m2} Low - PINF [facility] Glucose [Mass/Vol] 119 mg/dL High 74-99 [facility] Comment on above: Performed By: #### 2 4362-6 ####JASON Carrasquillo ([id number])[facility] ([facility])[address] [place] [address] Interpretation and review of laboratory results Abnormal [facility] Phosphate [Mass/Vol] 5.4 mg/dL High 2.5-4.9 [facility] Comment on above: Performed By: #### 2 4362-6 ####JASON Carrasquillo ([id number])[facility] ([facility])[address] [place] [address] Potassium [Moles/Vol] 4.9 mmol/L Normal 3.5-5.3 [facility] Comment on above: Performed By: #### 2 4362-6 ####JASON Carrasquillo ([id number])[facility] ([facility])[address] [place] [address] Sodium [Moles/Vol] 132 mmol/L Low 136-145 [facility] Comment on above: Performed By: #### 2 4362-6 ####JASON Carrasquillo ([id number])[facility] ([facility])[address] [place] [address] Urea nitrogen [Mass/Vol] 74 mg/dL High 6-[address] [facility] Comment on above: Performed By: #### 2 4362-6 ####JASON Carrasquillo ([id number])[facility] ([facility])[address] [place] [address] [facility] Albumin BCP dye [Mass/Vol] 3 g/dL Low 3.4 - 5.0 g/dL [facility] Anion gap [Moles/Vol] 15 mmol/L 10 - 20 mmol/L [facility] Calcium [Mass/Vol] 7.9 mg/dL Low 8.6 - 10. 6 mg/dL [facility] Chloride [Moles/Vol] 96 mmol/L Low 98 - 10 7 mmol/L [facility] CO2 [Moles/Vol] 28 mmol/L 21 - 32 mmol/L [facility] Creatinine [Mass/Vol] 7.92 mg/dL High 0.50 - 1.30 mg/dL [facility] GFR/1.73 sq M.predicted among non-blacks MDRD (S/P/Bld) [Vol rate/Area] 7 mL/min/{1.73_m2} Low - PINF [facility] Glucose [Mass/Vol] 120 mg/dL High 74 - 99 mg/dL [facility] Interpretation and review of laboratory results Abnormal [facility] Phosphate [Mass/Vol] 5.3 mg/dL High 2.5 - 4 .9 mg/dL [facility] Potassium [Moles/Vol] 4.3 mmol/L 3.5 - 5.3 mmol/L [facility] Sodium [Moles/Vol] 135 mmol/L Low 136 - 145 mmol/L [facility] Urea nitrogen [Mass/Vol] 66 mg/dL High 6 - 23 mg/dL [facility] Albumin BCP dye [Mass/Vol] 3.0 g/dL Low 3.4-5.0 [facility] Comment on above: Performed By: #### 2 4362-6 ####JASON Carrasquillo ([id number])[facility] ([facility])[address] [place] [address] Anion gap [Moles/Vol] 15 mmol/L Normal 10-20 [facility] Comment on above: Performed By: #### 2 4362-6 ####JASON JENINNGS L ([id number])[facility] ([facility])[address] [place] [address] Calcium [Mass/Vol] 7.9 mg/dL Low 8.6-10.6 [facility] Comment on above: Performed By: #### 2 4362-6 ####JASON JENNINGS L ([id number])[facility] ([facility])[address] [place] [address] Chloride [Moles/Vol] 96 mmol/L Low 98-107 [facility] Comment on above: Performed By: #### 2 4362-6 ####JASON JENNINGS L ([id number])[facility] ([facility])[address] [place] [address] CO2 [Moles/Vol] 28 mmol/L Normal 21-32 [facility] Comment on above: Performed By: #### 2 4362-6 ####JASON JENNINGS L ([id number])[facility] ([facility])[address] [place] [address] Creatinine [Mass/Vol] 7.92 mg/dL High 0.50-1.30 [facility] Comment on above: Performed By: #### 2 4362-6 ####JASON Carrasquillo ([id number])[facility] ([facility])[address] [place] [address] Glomerular filtration rate/1.73 sq M.predicted 7 mL/min/1.73m*2 Low >60 [facility] Comment on above: Result Comment: Calc ulations of estimated GFR are performed using the 2020 CKD-EPI Study Refit equation without the race variable for the IDMS-Traceable creatinine methods.https://jasn.asnjournals.org/content/early// N.9340145495 Performed By: #### 2 4362-6 ####JASON Carrasquillo ([id number])[facility] ([facility])[address] [place] [address] Glucose [Mass/Vol] 120 mg/dL High 74-99 [facility] Comment on above: Performed By: #### 2 4362-6 ####JASON Carrasquillo ([id number])[facility] ([facility])[address] [place] [address] Phosphate [Mass/Vol] 5.3 mg/dL High 2.5-4.9 [facility] Comment on above: Performed By: #### 2 4362-6 ####JASON Carrasquillo ([id number])[facility] ([facility])[address] [place] [address] Potassium [Moles/Vol] 4.3 mmol/L Normal 3.5-5.3 [facility] Comment on above: Performed By: #### 2 4362-6 ####JASON Carrasquillo ([id number])[facility] ([facility])[address] [place] [address] Sodium [Moles/Vol] 135 mmol/L Low 136-145 [facility] Comment on above: Performed By: #### 2 4362-6 ####JASON Carrasquillo ([id number])[facility] ([facility])[address] [place] [address] Urea nitrogen [Mass/Vol] 66 mg/dL High 6- [facility] Comment on above: Performed By: #### 2 4362-6 ####JASON Carrasquillo ([id number])[facility] ([facility])[id number] [place] [id number] Tacrolimuson 10-20-2024 Tacrolimus (Bld) [Mass/Vol] 6.8 ng/mL NINF - 15.0 ng/mL [facility] Work Phone: Tacrolimus (Bld) [Mass/Vol] 6.8 ng/mL Normal <=15.0 [facility] Comment on above: Order Comment: NOTE: Result was obtained using achemiluminescent microparticle immunoassay(CMIA) on the [employer] system.Optimal therapeutic ranges for immunosuppressantdrugs depend upon an individualpatient's current clinical state, type oforgan transplant, time post-transplant,co-administration of other immunosuppressants,and other clinical factors. The results ofthis test should be correlated with additionalclinical and laboratory data before changesin treatment regimens are made. Performed By: #### 1 1253-2 ####JASON Carrasquillo ([id number])[facility] ([facility])[id number] [place] [address] Tacrolimus (Bld) [Mass/Vol]o n 10-20-2024 Interpretation and review of laboratory results Normal [facility] Work Phone: [facility] Work Phone: [facility] Work Phone: CBC W Auto Differential pane l (Bld)on 10-19-2024 Basophils (Bld) [#/Vol] 0 10*3/uL [facility] Basophils/100 WBC (Bld) 0 % 0.0 - 2.0 % [facility] Eosinophils (Bld) [#/Vol] 0.04 10*3/uL [facility] Eosinophils/100 WBC (Bld) 1.2 % 0.0 - 6.0 % [facility] Erythrocyte distribution width (RBC) [Ratio] 17.5 % High 11.5 - 14.5 % [facility] Hematocrit (Bld) [Volume fraction] 23.2 % Low 41.0 - 52.0 % [facility] Hemoglobin (Bld) [Mass/Vol] 7.3 g/dL Low 13.5 - 17.5 g/dL [facility] Immature granulocytes (Bld) [#/Vol] 0.02 10*3/uL [facility] Immature granulocytes/100 WBC (Bld) 0.6 % 0.0 - 0.9 % [facility] Interpretation and review of laboratory results Abnormal [facility] Lymphocytes (Bld) [#/Vol] 0.09 10*3/uL Low [facility] Lymphocytes/100 WBC (Bld) 2.6 % 13.0 - 44.0 % [facility] MCH (RBC) [Entitic mass] 23.4 pg Low 26.0 - 34.[address] [facility] MCHC (RBC) [Mass/Vol] 31.5 g/dL Low 32.0 - 36.0 g/dL [facility] MCV (RBC) [Entitic vol] 74 fL Low 80 - [address] [facility] Monocytes (Bld) [#/Vol] 0.23 10*3/uL [facility] Monocytes/100 WBC (Bld) 6.6 % 2.0 - 10.0 % [facility] Neutrophils (Bld) [#/Vol] 3.08 10*3/uL [facility] Neutrophils/100 WBC (Bld) 89 % 40.0 - 80.0 % [facility] Nucleated RBC/100 WBC (Bld) [Ratio] 0 % [facility] Platelets (Bld) [#/Vol] 92 10*3/uL Low [facility] RBC (Bld) [#/Vol] 3.12 10*6/uL Low [facility] WBC (Bld) [#/Vol] 3.5 10*3/uL Low [facility] Basophils (Bld) [#/Vol] 0.00 x10*3/uL Normal 0.00-0.10 [facility] Comment on above: Performed By: #### 5 7021-8 ####JASON Carrasquillo ([id number])[facility] ([facility])[address] [place] [address] Basophils/100 WBC (Bld) 0.0 % Normal 0.0-2.0 [facility] Comment on above: Performed By: #### 5 7021-8 ####JASON Carrasquillo ([id number])[facility] ([facility])[address] [place] [address] Eosinophils (Bld) [#/Vol] 0.04 x10*3/uL Normal 0.00-0.70 [facility] Comment on above: Performed By: #### 5 7021-8 ####JASON Carrasquillo ([id number])[facility] ([facility])[address] [place] [address] Eosinophils/100 WBC (Bld) 1.2 % Normal 0.0-6.0 [facility] Comment on above: Performed By: #### 5 7021-8 ####JASON Carrasquillo ([id number])[facility] ([facility])[address] [place] [address] Erythrocyte distribution width (RBC) [Ratio] 17.5 % High 11.5-14.5 [facility] Comment on above: Performed By: #### 5 7021-8 ####JASON Carrasquillo ([id number])[facility] ([facility])[address] [place] [address] Hematocrit (Bld) [Volume fraction] 23.2 % Low 41.0-52.0 [facility] Comment on above: Performed By: #### 5 7021-8 ####JASON Carrasquillo ([id number])[facility] ([facility])[address] [place] [address] Hemoglobin (Bld) [Mass/Vol] 7.3 g/dL Low 13.5-17.5 [facility] Comment on above: Performed By: #### 5 7021-8 ####JASON Carrasquillo ([id number])[facility] ([facility])[address] [place] [address] Immature granulocytes (Bld) [#/Vol] 0.02 x10*3/uL Normal 0.00-0.70 [facility] Comment on above: Performed By: #### 5 7021-8 ####JASON Carrasquillo ([id number])[facility] ([facility])[address] [place] [address] Immature granulocytes/100 WBC (Bld) 0.6 % Normal 0.0-0.9 [facility] Comment on above: Result Comment: Shantell ture Granulocyte Count (IG) includes promyelocytes, myelocytes and metamyelocytes but does not include bands. Percent differential counts (%) should be interpreted in the context of the absolute cell counts (cells/UL). Performed By: #### 5 7021-8 ####JASON Carrasquillo ([id number])[facility] ([facility])[address] [place] [address] Lymphocytes (Bld) [#/Vol] 0.09 x10*3/uL Low 1.20-4.80 [facility] Comment on above: Performed By: #### 5 7021-8 ####JASON Carrasquillo ([id number])[facility] ([facility])[address] [place] [address] Lymphocytes/100 WBC (Bld) 2.6 % Normal 13.0-44.0 [facility] Comment on above: Performed By: #### 5 7021-8 ####JASON Carrasquillo ([id number])[facility] ([facility])[address] [place] [address] MCH (RBC) [Entitic mass] 23.4 pg Low 26.0-34.0 [facility] Comment on above: Performed By: #### 5 7021-8 ####JASON Carrasquillo ([id number])[facility] ([facility])[address] [place] [address] MCHC (RBC) [Mass/Vol] 31.5 g/dL Low 32.0-36.0 [facility] Comment on above: Performed By: #### 5 7021-8 ####JASON Carrasquillo ([id number])[facility] ([facility])[address] [place] [address] MCV (RBC) [Entitic vol] 74 fL Low 80-100 [facility] Comment on above: Performed By: #### 5 7021-8 ####JASON Carrasquillo ([id number])[facility] ([facility])[address] [place] [address] Monocytes (Bld) [#/Vol] 0.23 x10*3/uL Normal 0.10-1.00 [facility] Comment on above: Performed By: #### 5 7021-8 ####JASON Carrasquillo ([id number])[facility] ([facility])[id number] [place] [address] Monocytes/100 WBC (Bld) 6.6 % Normal 2.0-10.0 [facility] Comment on above: Performed By: #### 5 7021-8 ####JASON Carrasquillo ([id number])[facility] ([facility])[address] [place] [address] Neutrophils (Bld) [#/Vol] 3.08 x10*3/uL Normal 1.20-7.70 [facility] Comment on above: Result Comment: Perc ent differential counts (%) should be interpreted in the context of the absolute cell counts (cells/uL). Performed By: #### 5 7021-8 ####JASON Carrasquillo ([id number])[facility] ([facility])[address] [place] [address] Neutrophils/100 WBC (Bld) 89.0 % Normal 40.0-80.0 [facility] Comment on above: Performed By: #### 5 7021-8 ####JASON Carrasquillo ([id number])[facility] ([facility])[address] [place] [address] Nucleated RBC/100 WBC (Bld) [Ratio] 0.0 /100 WBCs Normal 0.0-0.0 [facility] Comment on above: Performed By: #### 5 7021-8 ####JASON Carrasquillo ([id number])[facility] ([facility])[address] [place] [address] Platelets (Bld) [#/Vol] 92 x10*3/uL Low 150-450 [facility] Comment on above: Performed By: #### 5 7021-8 ####JASON Carrasquillo ([id number])[facility] ([facility])[address] [place] [address] RBC (Bld) [#/Vol] 3.12 x10*6/uL Low 4.50-5.90 [facility] Comment on above: Performed By: #### 5 7021-8 ####JASON Carrasquillo ([id number])[facility] ([facility])[address] [place] [address] WBC (Bld) [#/Vol] 3.5 x10*3/uL Low 4.4-11.3 [facility] Comment on above: Performed By: #### 5 7021-8 ####JASON Carrasquillo ([id number])[facility] ([facility])[address] [place] [address] Calcium, Ionizedon Calcium.ionized (Bld) [Moles/Vol] 1 mmol/L Low 1.1 - 1.33 mmol/L [facility] Calcium.ionizedon 10-19-2024 Calcium.ionized (Bld) [Moles/Vol] 1.00 mmol/L Low 1.1-1.33 [facility] Comment on above: Result Comment: The performance characteristics of ionized calcium testedin heparinized plasma or serum have been [facility] where testing is performed.Testing on heparinized plasma or serum is not approved bythe [facility]; however, such approval is not necessary. Performed By: #### 1 994-3 ####JASON Carrasquillo ([id number])[facility] ([facility])[address] [place] [address] Calcium.ionized (Bld) [Moles /Vol]on 10-19-2024 Interpretation and review of laboratory results Abnormal [facility] Glucose Test strip manual (B ld) [Mass/Vol]on 10-19-2024 Glucose [Mass/Vol] 132 mg/dL High 74 - 99 mg/dL [facility] Interpretation and review of laboratory results Abnormal [facility] Glucose [Mass/Vol] 132 mg/dL High 74-99 [facility] Comment on above: Performed By: #### 2 341-6 ####JASON Carrasquillo ([id number])[facility] ([facility])[id number] [place] [address] Glucose [Mass/Vol] 172 mg/dL High 74 - 99 mg/dL [facility] Interpretation and review of laboratory results Abnormal [facility] Glucose [Mass/Vol] 172 mg/dL High 74-99 [facility] Comment on above: Performed By: #### 2 341-6 ####JASON Carrasquillo ([id number])[facility] ([facility])[address] [place] [address] Glucose [Mass/Vol] 125 mg/dL High 74 - 99 mg/dL [facility] Interpretation and review of laboratory results Abnormal [facility] Glucose [Mass/Vol] 125 mg/dL High 74-99 [facility] Comment on above: Performed By: #### 2 341-6 ####JASON Carrasquillo ([id number])[facility] ([facility])[id number] [place] [address] Magnesiumon 10-19-2024 Magnesium [Mass/Vol] 2.08 mg/dL 1.60 - 2.40 mg/dL [facility] Magnesium [Mass/Vol] 2.08 mg/dL Normal 1.60-2.40 [facility] Comment on above: Performed By: #### 1 9123-9 ####JASON Carrasquillo ([id number])[facility] ([facility])[id number] [place] [address] Magnesium [Mass/Vol]on 10-19 Interpretation and review of laboratory results Normal [facility] No Panel Informationon 10-[address] [facility] Renal function 2000 panelon 10-19-2024 Albumin BCP dye [Mass/Vol] 3.1 g/dL Low 3.4 - 5.0 g/dL [facility] Anion gap [Moles/Vol] 15 mmol/L 10 - 20 mmol/L [facility] Calcium [Mass/Vol] 7.7 mg/dL Low 8.6 - 10. 6 mg/dL [facility] Chloride [Moles/Vol] 96 mmol/L Low 98 - 10 7 mmol/L [facility] CO2 [Moles/Vol] 28 mmol/L 21 - 32 mmol/L [facility] Creatinine [Mass/Vol] 6.34 mg/dL High 0.50 - 1.30 mg/dL [facility] GFR/1.73 sq M.predicted among non-blacks MDRD (S/P/Bld) [Vol rate/Area] 10 mL/min/{1.73_m2} Low - PINF [facility] Glucose [Mass/Vol] 109 mg/dL High 74 - 99 mg/dL [facility] Interpretation and review of laboratory results Abnormal [facility] Phosphate [Mass/Vol] 5 mg/dL High 2.5 - 4 .9 mg/dL [facility] Potassium [Moles/Vol] 4 mmol/L 3.5 - 5.3 mmol/L [facility] Sodium [Moles/Vol] 135 mmol/L Low 136 - 145 mmol/L [facility] Urea nitrogen [Mass/Vol] 45 mg/dL High 6 - 23 mg/dL [facility] Albumin BCP dye [Mass/Vol] 3.1 g/dL Low 3.4-5.0 [facility] Comment on above: Performed By: #### 2 4362-6 ####JASON Carrasquillo ([id number])[facility] ([facility])[address] [facility] [place] [address] Anion gap [Moles/Vol] 15 mmol/L Normal 10-20 [facility] Comment on above: Performed By: #### 2 4362-6 ####JASON JENNINGS L ([id number])[facility] ([facility])[address] [place] [address] Calcium [Mass/Vol] 7.7 mg/dL Low 8.6-10.6 [facility] Comment on above: Performed By: #### 2 4362-6 ####JASON JENNINGS L ([id number])[facility] ([facility])[address] [place] [address] Chloride [Moles/Vol] 96 mmol/L Low 98-107 [facility] Comment on above: Performed By: #### 2 4362-6 ####JASON JENNINGS L ([id number])[facility] ([facility])[address] [place] [address] CO2 [Moles/Vol] 28 mmol/L Normal 21-32 [facility] Comment on above: Performed By: #### 2 4362-6 ####JASON JENNINGS L ([id number])[facility] ([facility])[address] [place] [address] Creatinine [Mass/Vol] 6.34 mg/dL High 0.50-1.30 [facility] Comment on above: Performed By: #### 2 4362-6 ####JASON SUTHERLANDER L ([id number])[facility] ([facility])[address] [place] [address] Glomerular filtration rate/1.73 sq M.predicted 10 mL/min/1.73m*2 Low >60 [facility] Comment on above: Result Comment: Calc ulations of estimated GFR are performed using the 2020 CKD-EPI Study Refit equation without the race variable for the IDMS-Traceable creatinine methods.https://jasn.asnjournals.org/content/early// N.2223781388 Performed By: #### 2 4362-6 ####JASON Carrasquillo ([id number])[facility] ([facility])[address] [place] [address] Glucose [Mass/Vol] 109 mg/dL High 74-99 [facility] Comment on above: Performed By: #### 2 4362-6 ####JASON Carrasquillo ([id number])[facility] ([facility])[address] [place] [address] Phosphate [Mass/Vol] 5.0 mg/dL High 2.5-4.9 [facility] Comment on above: Performed By: #### 2 4362-6 ####JASON Carrasquillo ([id number])[facility] ([facility])[address] [place] [address] Potassium [Moles/Vol] 4.0 mmol/L Normal 3.5-5.3 [facility] Comment on above: Performed By: #### 2 4362-6 ####JASON Carrasquillo ([id number])[facility] ([facility])[address] [place] [address] Sodium [Moles/Vol] 135 mmol/L Low 136-145 [facility] Comment on above: Performed By: #### 2 4362-6 ####JASON Carrasquillo ([id number])[facility] ([facility])[address] [place] [address] Urea nitrogen [Mass/Vol] 45 mg/dL High 6-23 [facility] Comment on above: Performed By: #### 2 4362-6 ####JASON Carrasquillo ([id number])[facility] ([facility])[address] [place] [address] TacrolimusOrdered By: Aniabl Sarkar on 10-19-2024 Tacrolimus (Bld) [Mass/Vol] 23 ng/mL Critically high NINF - 15.0 ng/mL [facility] Tacrolimuson 10-19-2024 Tacrolimus (Bld) [Mass/Vol] 23.0 ng/mL Critically high <=15.0 [facility] Comment on above: Order Comment: NOTE: Result was obtained using achemiluminescent microparticle immunoassay(CMIA) on the [employer] system.Optimal therapeutic ranges for immunosuppressantdrugs depend upon an individualpatient's current clinical state, type oforgan transplant, time post-transplant,co-administration of other immunosuppressants,and other clinical factors. The results ofthis test should be correlated with additionalclinical and laboratory data before changesin treatment regimens are made. Performed By: #### 1 1253-2 ####JASON Carrasquillo ([id number])[facility] ([facility])[address] [place] [address] Tacrolimus (Bld) [Mass/Vol]O rdered By: Anibal Sarkar on 10-19-2024 Interpretation and review of laboratory results Abnormal [facility] 25-hydroxyvitamin D3 [Mass/V ol]on 10-18-2024 Interpretation and review of laboratory results Normal [facility] CBC W Auto Differential pane l (Bld)on 10-18-2024 Basophils (Bld) [#/Vol] 0 10*3/uL [facility] Basophils/100 WBC (Bld) 0 % 0.0 - 2.0 % [facility] Eosinophils (Bld) [#/Vol] 0 10*3/uL [facility] Eosinophils/100 WBC (Bld) 0 % 0.0 - 6.0 % [facility] Erythrocyte distribution width (RBC) [Ratio] 17.4 % High 11.5 - 14.5 % [facility] Hematocrit (Bld) [Volume fraction] 23.7 % Low 41.0 - 52.0 % [facility] Hemoglobin (Bld) [Mass/Vol] 7.5 g/dL Low 13.5 - 17.5 g/dL [facility] Immature granulocytes (Bld) [#/Vol] 0.04 10*3/uL [facility] Immature granulocytes/100 WBC (Bld) 0.9 % 0.0 - 0.9 % [facility] Interpretation and review of laboratory results Abnormal [facility] Lymphocytes (Bld) [#/Vol] 0.07 10*3/uL Low [facility] Lymphocytes/100 WBC (Bld) 1.6 % 13.0 - 44.0 % [facility] MCH (RBC) [Entitic mass] 23.3 pg Low 26.0 - 34.[address] [facility] MCHC (RBC) [Mass/Vol] 31.6 g/dL Low 32.0 - 36.0 g/dL [facility] MCV (RBC) [Entitic vol] 74 fL Low 80 - [address] [facility] Monocytes (Bld) [#/Vol] 0.34 10*3/uL [facility] Monocytes/100 WBC (Bld) 7.9 % 2.0 - 10.0 % [facility] Neutrophils (Bld) [#/Vol] 3.87 10*3/uL [facility] Neutrophils/100 WBC (Bld) 89.6 % 40.0 - 80.0 % [facility] Nucleated RBC/100 WBC (Bld) [Ratio] 0 % [facility] Platelets (Bld) [#/Vol] 87 10*3/uL Low [facility] RBC (Bld) [#/Vol] 3.22 10*6/uL [facility] WBC (Bld) [#/Vol] 4.3 10*3/uL [facility] Basophils (Bld) [#/Vol] 0.00 x10*3/uL Normal 0.00-0.10 [facility] Comment on above: Performed By: #### 5 7021-8 ####JASON Carrasquillo ([id number])[facility] ([facility])[address] [place] [address] Basophils/100 WBC (Bld) 0.0 % Normal 0.0-2.0 [facility] Comment on above: Performed By: #### 5 7021-8 ####JASON Carrasquillo ([id number])[facility] ([facility])[address] [place] [address] Eosinophils (Bld) [#/Vol] 0.00 x10*3/uL Normal 0.00-0.70 [facility] Comment on above: Performed By: #### 5 7021-8 ####JASON Carrasquillo ([id number])[facility] ([facility])[address] [place] [address] Eosinophils/100 WBC (Bld) 0.0 % Normal 0.0-6.0 [facility] Comment on above: Performed By: #### 5 7021-8 ####JSAON Carrasquillo ([id number])[facility] ([facility])[address] [place] [address] Erythrocyte distribution width (RBC) [Ratio] 17.4 % High 11.5-14.5 [facility] Comment on above: Performed By: #### 5 7021-8 ####JASON Carrasquillo ([id number])[facility] ([facility])[address] [place] [address] Hematocrit (Bld) [Volume fraction] 23.7 % Low 41.0-52.0 [facility] Comment on above: Performed By: #### 5 7021-8 ####JASON Carrasquillo ([id number])[facility] ([facility])[address] [place] [address] Hemoglobin (Bld) [Mass/Vol] 7.5 g/dL Low 13.5-17.5 [facility] Comment on above: Performed By: #### 5 7021-8 ####JASON Carrasquillo ([id number])[facility] ([facility])[address] [place] [address] Immature granulocytes (Bld) [#/Vol] 0.04 x10*3/uL Normal 0.00-0.70 [facility] Comment on above: Performed By: #### 5 7021-8 ####JASON Carrasquillo ([id number])[facility] ([facility])[address] [place] [address] Immature granulocytes/100 WBC (Bld) 0.9 % Normal 0.0-0.9 [facility] Comment on above: Result Comment: Shantell ture Granulocyte Count (IG) includes promyelocytes, myelocytes and metamyelocytes but does not include bands. Percent differential counts (%) should be interpreted in the context of the absolute cell counts (cells/UL). Performed By: #### 5 7021-8 ####JASON Carrasquillo ([id number])[facility] ([facility])[address] [place] [address] Lymphocytes (Bld) [#/Vol] 0.07 x10*3/uL Low 1.20-4.80 [facility] Comment on above: Performed By: #### 5 7021-8 ####JASON Carrasquillo ([id number])[facility] ([facility])[address] [place] [address] Lymphocytes/100 WBC (Bld) 1.6 % Normal 13.0-44.0 [facility] Comment on above: Performed By: #### 5 7021-8 ####JASON Carrasquillo ([id number])[facility] ([facility])[address] [place] [address] MCH (RBC) [Entitic mass] 23.3 pg Low 26.0-34.0 [facility] Comment on above: Performed By: #### 5 7021-8 ####JASON Carrasquillo ([id number])[facility] ([facility])[address] [place] [address] MCHC (RBC) [Mass/Vol] 31.6 g/dL Low 32.0-36.0 [facility] Comment on above: Performed By: #### 5 7021-8 ####JASON Carrasquillo ([id number])[facility] ([facility])[address] [place] [address] MCV (RBC) [Entitic vol] 74 fL Low 80-100 [facility] Comment on above: Performed By: #### 5 7021-8 ####JASON Carrasquillo ([id number])[facility] ([facility])[address] [place] [address] Monocytes (Bld) [#/Vol] 0.34 x10*3/uL Normal 0.10-1.00 [facility] Comment on above: Performed By: #### 5 7021-8 ####JASON JENNINGS L ([id number])[facility] ([facility])[address] [place] [address] Monocytes/100 WBC (Bld) 7.9 % Normal 2.0-10.0 [facility] Comment on above: Performed By: #### 5 7021-8 ####JASON JENNINGS L ([id number])[facility] ([facility])[address] [place] [address] Neutrophils (Bld) [#/Vol] 3.87 x10*3/uL Normal 1.20-7.70 [facility] Comment on above: Result Comment: Perc ent differential counts (%) should be interpreted in the context of the absolute cell counts (cells/uL). Performed By: #### 5 7021-8 ####JASON POPETZGREG L ([id number])[facility] ([facility])[address] [place] [address] Neutrophils/100 WBC (Bld) 89.6 % Normal 40.0-80.0 [facility] Comment on above: Performed By: #### 5 7021-8 ####JASON JENNINGS L ([id number])[facility] ([facility])[address] [place] [address] Nucleated RBC/100 WBC (Bld) [Ratio] 0.0 /100 WBCs Normal 0.0-0.0 [facility] Comment on above: Performed By: #### 5 7021-8 ####JASON CLARKMOTZER L ([id number])[facility] ([facility])[address] [place] [address] Platelets (Bld) [#/Vol] 87 x10*3/uL Low 150-450 [facility] Comment on above: Performed By: #### 5 7021-8 ####JASON CLARKMOTZGREG L ([id number])[facility] ([facility])[address] [place] [address] RBC (Bld) [#/Vol] 3.22 x10*6/uL Low 4.50-5.90 [facility] Comment on above: Performed By: #### 5 7021-8 ####JASON Carrasquillo ([id number])[facility] ([facility])[address] [place] [address] WBC (Bld) [#/Vol] 4.3 x10*3/uL Low 4.4-11.3 [facility] Comment on above: Performed By: #### 5 7021-8 ####JASON Carrasquillo ([id number])[facility] ([facility])[id number] [place] [address] Calcium, Ionizedon Calcium.ionized (Bld) [Moles/Vol] 0.92 mmol/L Low 1.1 - 1.33 mmol/L [facility] Calcium.ionizedon 10-18-2024 Calcium.ionized (Bld) [Moles/Vol] 0.92 mmol/L Low 1.1-1.33 [facility] Comment on above: Result Comment: The performance characteristics of ionized calcium testedin heparinized plasma or serum [facility].Testing on heparinized plasma or serum is not approved bythe FDA; however, such approval is not necessary. Performed By: #### 1 994-3 ####JASON Carrasquillo ([id number])[facility] ([facility])[id number] [place] [address] Calcium.ionized (Bld) [Moles /Vol]on 10-18-2024 Interpretation and review of laboratory results Abnormal [facility] Glucose Test strip manual (B ld) [Mass/Vol]on 10-18-2024 Glucose [Mass/Vol] 135 mg/dL High 74 - 99 mg/dL [facility] Interpretation and review of laboratory results Abnormal [facility] Glucose [Mass/Vol] 135 mg/dL High 74-99 [facility] Comment on above: Performed By: #### 2 341-6 ####JASON Carrasquillo ([id number])[facility] ([facility])[address] [place] [address] Glucose [Mass/Vol] 105 mg/dL High 74 - 99 mg/dL [facility] Interpretation and review of laboratory results Abnormal [facility] Glucose [Mass/Vol] 105 mg/dL High 74-99 [facility] Comment on above: Performed By: #### 2 341-6 ####JASON Carrasquillo ([id number])[facility] ([facility])[address] [place] [address] Glucose [Mass/Vol] 99 mg/dL 74 - 99 mg/dL [facility] Interpretation and review of laboratory results Normal [facility] Glucose [Mass/Vol] 99 mg/dL Normal 74-99 [facility] Comment on above: Performed By: #### 2 341-6 ####JASON Carrasquillo ([id number])[facility] ([facility])[id number] [place] [address] Magnesiumon 10-18-2024 Magnesium [Mass/Vol] 2.15 mg/dL 1.60 - 2.40 mg/dL [facility] Magnesium [Mass/Vol] 2.15 mg/dL Normal 1.60-2.40 [facility] Comment on above: Performed By: #### 1 9123-9 ####JASON Carrasquillo ([id number])[facility] ([facility])[id number] [place] [address] Magnesium [Mass/Vol]on 10-18 Interpretation and review of laboratory results Normal [facility] No Panel Informationon 10-[address] [facility] Renal function 2000 panelon 10-18-2024 Albumin BCP dye [Mass/Vol] 3.1 g/dL Low 3.4 - 5.0 g/dL [facility] Anion gap [Moles/Vol] 20 mmol/L 10 - 20 mmol/L [facility] Calcium [Mass/Vol] 7.2 mg/dL Low 8.6 - 10. 6 mg/dL [facility] Chloride [Moles/Vol] 93 mmol/L Low 98 - 10 7 mmol/L [facility] CO2 [Moles/Vol] 22 mmol/L 21 - 32 mmol/L [facility] Creatinine [Mass/Vol] 10.34 mg/dL High 0.50 - 1.30 mg/dL [facility] GFR/1.73 sq M.predicted among non-blacks MDRD (S/P/Bld) [Vol rate/Area] 5 mL/min/{1.73_m2} Low - PINF [facility] Glucose [Mass/Vol] 93 mg/dL 74 - 99 mg/dL [facility] Interpretation and review of laboratory results Abnormal [facility] Phosphate [Mass/Vol] 7.7 mg/dL High 2.5 - 4 .9 mg/dL [facility] Potassium [Moles/Vol] 4.3 mmol/L 3.5 - 5.3 mmol/L [facility] Sodium [Moles/Vol] 131 mmol/L Low 136 - 145 mmol/L [facility] Urea nitrogen [Mass/Vol] 78 mg/dL High 6 - 23 mg/dL [facility] Albumin BCP dye [Mass/Vol] 3.1 g/dL Low 3.4-5.0 [facility] Comment on above: Performed By: #### 2 4362-6 ####JASON Carrasquillo ([id number])[facility] ([facility])[address] [place] [address] Anion gap [Moles/Vol] 20 mmol/L Normal 10-20 [facility] Comment on above: Performed By: #### 2 4362-6 ####JASON Carrasquillo ([id number])[facility] ([facility])[address] [place] [address] Calcium [Mass/Vol] 7.2 mg/dL Low 8.6-10.6 [facility] Comment on above: Performed By: #### 2 4362-6 ####JASON Carrasquillo ([id number])[facility] ([facility])[address] [place] [address] Chloride [Moles/Vol] 93 mmol/L Low 98-107 [facility] Comment on above: Performed By: #### 2 4362-6 ####JASON Carrasquillo ([id number])[facility] ([facility])[address] [place] [address] CO2 [Moles/Vol] 22 mmol/L Normal 21-32 [facility] Comment on above: Performed By: #### 2 4362-6 ####JASON Carrasquillo ([id number])[facility] ([facility])[address] [place] [address] Creatinine [Mass/Vol] 10.34 mg/dL High 0.50-1.30 [facility] Comment on above: Performed By: #### 2 4362-6 ####JASON Carrasquillo ([id number])[facility] ([facility])[address] [place] [address] Glomerular filtration rate/1.73 sq M.predicted 5 mL/min/1.73m*2 Low >60 [facility] Comment on above: Result Comment: Calc ulations of estimated GFR are performed using the 2020 CKD-EPI Study Refit equation without the race variable for the IDMS-Traceable creatinine methods.https://jasn.asnjournals.org/content// N.3063017745 Performed By: #### 2 4362-6 ####JASON Carrasquillo ([id number])[facility] ([facility])[address] [place] [address] Glucose [Mass/Vol] 93 mg/dL Normal 74-99 [facility] Comment on above: Performed By: #### 2 4362-6 ####JASON Carrasquillo ([id number])[facility] ([facility])[address] [place] [address] Phosphate [Mass/Vol] 7.7 mg/dL High 2.5-4.9 [facility] Comment on above: Performed By: #### 2 4362-6 ####JASON Carrasquillo ([id number])[facility] ([facility])[address] [place] [address] Potassium [Moles/Vol] 4.3 mmol/L Normal 3.5-5.3 [facility] Comment on above: Performed By: #### 2 4362-6 ####JASON JENNINGS L ([id number])[facility] ([facility])[address] [place] [address] Sodium [Moles/Vol] 131 mmol/L Low 136-145 [facility] Comment on above: Performed By: #### 2 4362-6 ####JASON Carrasquillo ([id number])[facility] ([facility])[id number] [place] [address] Urea nitrogen [Mass/Vol] 78 mg/dL High 6-23 [facility] Comment on above: Performed By: #### 2 4362-6 ####JASON Carrasquillo ([id number])[facility] ([facility])[address] [place] [address]118 TacrolimusOrdered By: Kristine Santana on 10-18-2024 Tacrolimus (Bld) [Mass/Vol] 10.3 ng/mL NINF - 15.0 ng/mL [facility] Tacrolimuson 10-18-2024 Tacrolimus (Bld) [Mass/Vol] 10.3 ng/mL Normal <=15.0 [facility] Comment on above: Order Comment: NOTE: Result was obtained using achemiluminescent microparticle immunoassay(CMIA) on the [employer] system.Optimal therapeutic ranges for immunosuppressantdrugs depend upon an individualpatient's current clinical state, type oforgan transplant, time post-transplant,co-administration of other immunosuppressants,and other clinical factors. The results ofthis test should be correlated with additionalclinical and laboratory data before changesin treatment regimens are made. Performed By: #### 1 1253-2 ####JASON Carrasquillo ([id number])[facility] ([facility])[id number] [place] [address]47 Tacrolimus (Bld) [Mass/Vol]O rdered By: Kristine Santana on 10-18-2024 Interpretation and review of laboratory results [facility] Vitamin D 25-Hydroxy,Total ( for eval of Vitamin D levels)on 10-18-2024 25-hydroxyvitamin D3 [Mass/Vol] 68 ng/mL 30 - 100 ng/mL [facility] CBC W Auto Differential pane l (Bld)on 10-17-2024 Basophils (Bld) [#/Vol] 0.01 10*3/uL [facility] Eosinophils (Bld) [#/Vol] 0 10*3/uL [facility] Eosinophils/100 WBC (Bld) 0 % 0.0 - 6.0 % [facility] Hemoglobin (Bld) [Mass/Vol] 7 g/dL Low 13.5 - 17.5 g/dL [facility] Immature granulocytes (Bld) [#/Vol] 0.03 10*3/uL [facility] Lymphocytes (Bld) [#/Vol] 0.06 10*3/uL [facility] Monocytes (Bld) [#/Vol] 0.25 10*3/uL [facility] Neutrophils (Bld) [#/Vol] 6.18 10*3/uL [facility] Platelets (Bld) [#/Vol] 84 10*3/uL [facility] RBC (Bld) [#/Vol] 2.86 10*6/uL [facility] WBC (Bld) [#/Vol] 6.5 10*3/uL [facility] Basophils (Bld) [#/Vol] 0.01 x10*3/uL Normal 0.00-0.10 [facility] Comment on above: Performed By: #### 5 7021-8 ####JASON Carrasquillo ([id number])[facility] ([facility])[address] [place] [address] Eosinophils (Bld) [#/Vol] 0.00 x10*3/uL Normal 0.00-0.70 [facility] Comment on above: Performed By: #### 5 7021-8 ####JASON Carrasquillo ([id number])[facility] ([facility])[address] [place] [address] Eosinophils/100 WBC (Bld) 0.0 % Normal 0.0-6.0 [facility] Comment on above: Performed By: #### 5 7021-8 ####JASON Carrasquillo ([id number])[facility] ([facility])[address] [place] [address]28[address] Hemoglobin (Bld) [Mass/Vol] 7.0 g/dL Low 13.5-17.5 [facility] Comment on above: Performed By: #### 5 7021-8 ####JASON Carrasquillo ([id number])[facility] ([facility])[address] [place] [address]447 Immature granulocytes (Bld) [#/Vol] 0.03 x10*3/uL Normal 0.00-0.70 [facility] Comment on above: Performed By: #### 5 7021-8 ####JASON Carrasquillo ([id number])[facility] ([facility])[address] [place] [address] 76048 Lymphocytes (Bld) [#/Vol] 0.06 x10*3/uL Low 1.20-4.80 [facility] Comment on above: Performed By: #### 5 7021-8 ####JASON Carrasquillo ([id number])[facility] ([facility])[address] [place] [address]11 Monocytes (Bld) [#/Vol] 0.25 x10*3/uL Normal 0.10-1.00 [facility] Comment on above: Performed By: #### 5 7021-8 ####JASON Carrasquillo ([id number])[facility] ([facility])[address] [place] [address] 87670 Neutrophils (Bld) [#/Vol] 6.18 x10*3/uL Normal 1.20-7.70 [facility] Comment on above: Result Comment: Perc ent differential counts (%) should be interpreted in the context of the absolute cell counts (cells/uL). Performed By: #### 5 7021-8 ####JASON Carrasquillo ([id number])[facility] ([facility])[address] [place] [address] Nucleated RBC/100 WBC (Bld) [Ratio] 0.0 /100 WBCs Normal 0.0-0.0 [facility] Comment on above: Performed By: #### 5 7021-8 ####JASON Carrasquillo ([id number])[facility] ([facility])[address] [place] [address] Platelets (Bld) [#/Vol] 84 x10*3/uL Low 150-450 [facility] Comment on above: Performed By: #### 5 7021-8 ####JASON Carrasquillo ([id number])[facility] ([facility])[address] [place] [address] RBC (Bld) [#/Vol] 2.86 x10*6/uL Low 4.50-5.90 [facility] Comment on above: Performed By: #### 5 7021-8 ####JASON Carrasquillo ([id number])[facility] ([facility])[address] [place] [address] WBC (Bld) [#/Vol] 6.5 x10*3/uL Normal 4.4-11.3 [facility] Comment on above: Performed By: #### 5 7021-8 ####JASON CLARKMOZAY L ([id number])[facility] ([facility])[address] [place] [address] Basophils/100 WBC (Bld) 0.2 % Normal 0.0-2.[address] [facility] Comment on above: Performed By: #### 5 7021-8 ####JASON CLARKMOZAY L ([id number])[facility] ([facility])[address] [place] [address] Erythrocyte distribution width (RBC) [Ratio] 17.1 % High 11.5-14.[address] [facility] Comment on above: Performed By: #### 5 7021-8 ####JASON Carrasquillo ([id number])[facility] ([facility])[id number] [place] [address]9845 Hematocrit (Bld) [Volume fraction] 21.5 % Low 41.0-52.[address] [facility] Comment on above: Performed By: #### 5 7021-8 ####JASON Carrasquillo ([id number])[facility] ([facility])[address] [place] [address]80 Immature granulocytes/100 WBC (Bld) 0.5 % Normal 0.0-0.[address] [facility] Comment on above: Result Comment: Shantell ture Granulocyte Count (IG) includes promyelocytes, myelocytes and metamyelocytes but does not include bands. Percent differential counts (%) should be interpreted in the context of the absolute cell counts (cells/UL). Performed By: #### 5 7021-8 ####JASON Carrasquillo ([id number])[facility] ([facility])[address] [place] [address] 28036 Lymphocytes/100 WBC (Bld) 0.9 % Normal 13.0-44.[address] [facility] Comment on above: Performed By: #### 5 7021-8 ####JASON Carrasquillo ([id number])[facility] ([facility])[id number] [place] [address] 34510 MCH (RBC) [Entitic mass] 24.5 pg Low 26.0-34.[address] [facility] Comment on above: Performed By: #### 5 7021-8 ####JASON Carrasquillo ([id number])[facility] ([facility])[address] [place] [address] MCHC (RBC) [Mass/Vol] 32.6 g/dL Normal 32.0-36.0 [facility] Comment on above: Performed By: #### 5 7021-8 ####JASON Carrasquillo ([id number])[facility] ([facility])[address] [place] [address] 29603 MCV (RBC) [Entitic vol] 75 fL Low 80-[address] [facility] Comment on above: Performed By: #### 5 7021-8 ####JASON Carrasquillo ([id number])[facility] ([facility])[address] [place] [address] Monocytes/100 WBC (Bld) 3.8 % Normal 2.0-10.[address] [facility] Comment on above: Performed By: #### 5 7021-8 ####JASON Carrasquillo ([id number])[facility] ([facility])[address] [place] [address] Neutrophils/100 WBC (Bld) 94.6 % Normal 40.0-80.[address] [facility] Comment on above: Performed By: #### 5 7021-8 ####JASON Carrasquillo ([id number])[facility] ([facility])[address] [place] [address] CBC panel Auto (Bld)on 10-17 Erythrocyte distribution width (RBC) [Ratio] 17.4 % High 11.5 - 14.5 % [facility] Hematocrit (Bld) [Volume fraction] 25.6 % Low 41.0 - 52.0 % [facility] Hemoglobin (Bld) [Mass/Vol] 8 g/dL Low 13.5 - 17.5 g/dL [facility] Interpretation and review of laboratory results Abnormal [facility] MCH (RBC) [Entitic mass] 23.7 pg Low 26.0 - 34.[address] [facility] MCHC (RBC) [Mass/Vol] 31.3 g/dL Low 32.0 - 36.0 g/dL [facility] MCV (RBC) [Entitic vol] 76 fL Low 80 - [address] [facility] Platelets (Bld) [#/Vol] 81 10*3/uL Low [facility] RBC (Bld) [#/Vol] 3.37 10*6/uL [facility] WBC (Bld) [#/Vol] 7.8 10*3/uL [facility] Erythrocyte distribution width (RBC) [Ratio] 17.4 % High 11.5-14.5 [facility] Comment on above: Performed By: #### 5 8410-2 ####JASON Carrasquillo ([id number])[facility] ([facility])[address] [place] [address] Hematocrit (Bld) [Volume fraction] 25.6 % Low 41.0-52.0 [facility] Comment on above: Performed By: #### 5 8410-2 ####JASON Carrasquillo ([id number])[facility] ([facility])[address] [place] [address] Hemoglobin (Bld) [Mass/Vol] 8.0 g/dL Low 13.5-17.5 [facility] Comment on above: Performed By: #### 5 8410-2 ####JASON Carrasquillo ([id number])[facility] ([facility])[address] [place] [address] MCH (RBC) [Entitic mass] 23.7 pg Low 26.0-34.0 [facility] Comment on above: Performed By: #### 5 8410-2 ####JASON Carrasquillo ([id number])[facility] ([facility])[address] [place] [address] MCHC (RBC) [Mass/Vol] 31.3 g/dL Low 32.0-36.0 [facility] Comment on above: Performed By: #### 5 8410-2 ####JASON Carrasquillo ([id number])[facility] ([facility])[address] [place] [address] MCV (RBC) [Entitic vol] 76 fL Low 80-100 [facility] Comment on above: Performed By: #### 5 8410-2 ####JASON Carrasquillo ([id number])[facility] ([facility])[address] [place] [address] Nucleated RBC/100 WBC (Bld) [Ratio] 0.0 /100 WBCs Normal 0.0-0.0 [facility] Comment on above: Performed By: #### 5 8410-2 ####JASON Carrasquillo ([id number])[facility] ([facility])[address] [place] [address] Platelets (Bld) [#/Vol] 81 x10*3/uL Low 150-450 [facility] Comment on above: Performed By: #### 5 8410-2 ####JASON Carrasquillo ([id number])[facility] ([facility])[address] [place] [address] RBC (Bld) [#/Vol] 3.37 x10*6/uL Low 4.50-5.90 [facility] Comment on above: Performed By: #### 5 8410-2 ####JASON Carrasquillo ([id number])[facility] ([facility])[address] [place] [address] 87484 WBC (Bld) [#/Vol] 7.8 x10*3/uL Normal 4.4-11.3 [facility] Comment on above: Performed By: #### 5 8410-2 ####JASON Carrasquillo ([id number])[facility] ([facility])[address] [place] [address] 41944 Glucose Test strip manual (B ld) [Mass/Vol]on 10-17-2024 Glucose [Mass/Vol] 118 mg/dL High 74 - 99 mg/dL [facility] Interpretation and review of laboratory results Abnormal [facility] Glucose [Mass/Vol] 118 mg/dL High 74-99 [facility] Comment on above: Performed By: #### 2 341-6 ####JASON Carrasquillo ([id number])[facility] ([facility])[id number] [place] [address] 67237 Glucose [Mass/Vol] 161 mg/dL High 74 - 99 mg/dL [facility] Glucose [Mass/Vol] 161 mg/dL High 74-99 [facility] Comment on above: Performed By: #### 2 341-6 ####JASON Carrasquillo ([id number])[facility] ([facility])[address] [place] [address] 26405 Glucose [Mass/Vol] 82 mg/dL 74 - 99 mg/dL [facility] Interpretation and review of laboratory results Normal [facility] Glucose [Mass/Vol] 82 mg/dL Normal 74-99 [facility] Comment on above: Performed By: #### 2 341-6 ####JASON Carrasquillo ([id number])[facility] ([facility])[id number] [place] [address] 98329 HCV RNA panel SAQIB+probeOrder ed By: Patricia De La O on 10-17-2024 HCV RNA SAQIB+probe [Log units/Vol] [facility] HCV RNA SAQIB+probe Qn Not detected Not detected [facility] - Hematology and Cell countson 10-17-2024 Nucleated RBC/100 WBC (Bld) [Ratio] 0 % [facility] Magnesiumon 10-17-2024 Magnesium [Mass/Vol] 2 mg/dL 1.60 - 2.40 mg/dL [facility] Magnesium [Mass/Vol] 2.00 mg/dL Normal 1.60-2.40 [facility] Comment on above: Performed By: #### 1 [id number] ####JASON Carrasquillo ([id number])[facility] ([facility])[address] [place] [id number] Magnesium [Mass/Vol]on 10-17 Interpretation and review of laboratory results Normal [facility] No Panel Informationon 10-17 Interpretation and review of laboratory results Abnormal [facility] PRODUCT BLOOD TYPE 7300 [facility] PRODUCT CODE [id number] [facility] Unit ABO B [facility] Unit RH Positive [facility] UNIT VOLUME [address] [facility] XM INTEP COMP [facility] No Panel InformationOrdered By: Nicki Gilmore on 10-17-[address] [facility] [facility]: 2 Unitson 10-17 Blood Expiration Date 10/27/2024 11:59:00 PM EDT [facility] Blood Expiration Date 11/01/2024 11:59:00 PM EDT [facility] Dispense Status PT [facility] Dispense Status TR [facility] Unit Number [id number] [facility] Unit Number [id number] [facility] Renal function 2000 panelon 10-17-2024 Albumin BCP dye [Mass/Vol] 3 g/dL Low 3.4 - 5.0 g/dL [facility] Anion gap [Moles/Vol] 18 mmol/L 10 - 20 mmol/L [facility] Calcium [Mass/Vol] 6.8 mg/dL Low 8.6 - 10. 6 mg/dL [facility] Chloride [Moles/Vol] 95 mmol/L Low 98 - 10 7 mmol/L [facility] CO2 [Moles/Vol] 25 mmol/L 21 - 32 mmol/L [facility] Creatinine [Mass/Vol] 8.2 mg/dL High 0.50 - 1.30 mg/dL [facility] GFR/1.73 sq M.predicted among non-blacks MDRD (S/P/Bld) [Vol rate/Area] 7 mL/min/{1.73_m2} Low - PINF [facility] Glucose [Mass/Vol] 116 mg/dL High 74 - 99 mg/dL [facility] Interpretation and review of laboratory results Abnormal [facility] Phosphate [Mass/Vol] 7.8 mg/dL High 2.5 - 4 .9 mg/dL [facility] Potassium [Moles/Vol] 4.1 mmol/L 3.5 - 5.3 mmol/L [facility] Sodium [Moles/Vol] 134 mmol/L Low 136 - 145 mmol/L [facility] Urea nitrogen [Mass/Vol] 59 mg/dL High 6 - 23 mg/dL [facility] Albumin BCP dye [Mass/Vol] 3.0 g/dL Low 3.4-5.0 [facility] Comment on above: Performed By: #### 2 4362-6 ####JASON JENNINGS L ([id number])[facility] ([facility])[address] [place] [address] Anion gap [Moles/Vol] 18 mmol/L Normal 10-20 [facility] Comment on above: Performed By: #### 2 4362-6 ####JASON SUTHERLANDER L ([id number])[facility] ([facility])[address] [place] [address] Calcium [Mass/Vol] 6.8 mg/dL Low 8.6-10.6 [facility] Comment on above: Performed By: #### 2 4362-6 ####JASON JENNINGS L ([id number])[facility] ([facility])[address] [place] [address] Chloride [Moles/Vol] 95 mmol/L Low 98-107 [facility] Comment on above: Performed By: #### 2 4362-6 ####JASON JENNINGS L ([id number])[facility] ([facility])[address] [place] [address] CO2 [Moles/Vol] 25 mmol/L Normal 21-32 [facility] Comment on above: Performed By: #### 2 4362-6 ####JASON JENNINGS L ([id number])[facility] ([facility])[address] [place] [address] Creatinine [Mass/Vol] 8.20 mg/dL High 0.50-1.30 [facility] Comment on above: Performed By: #### 2 4362-6 ####JASON CLARKMOTZER L ([id number])[facility] ([facility])[address] [place] [address] Glomerular filtration rate/1.73 sq M.predicted 7 mL/min/1.73m*2 Low >60 [facility] Comment on above: Result Comment: Calc ulations of estimated GFR are performed using the 2020 CKD-EPI Study Refit equation without the race variable for the IDMS-Traceable creatinine methods.https://jasn.asnjournals.org/content// N.0569109323 Performed By: #### 2 4362-6 ####JASON Carrasquillo ([id number])[facility] ([facility])[address] [place] [address] Glucose [Mass/Vol] 116 mg/dL High 74-99 [facility] Comment on above: Performed By: #### 2 4362-6 ####JASON Carrasquillo ([id number])[facility] ([facility])[address] [place] [address] Phosphate [Mass/Vol] 7.8 mg/dL High 2.5-4.9 [facility] Comment on above: Performed By: #### 2 4362-6 ####JASON Carrasquillo ([id number])[facility] ([facility])[address] [place] [address] Potassium [Moles/Vol] 4.1 mmol/L Normal 3.5-5.3 [facility] Comment on above: Performed By: #### 2 4362-6 ####JASON Carrasquillo ([id number])[facility] ([facility])[address] [place] [address] Sodium [Moles/Vol] 134 mmol/L Low 136-145 [facility] Comment on above: Performed By: #### 2 4362-6 ####JASON Carrasquillo ([id number])[facility] ([facility])[id number] [place] [address] Urea nitrogen [Mass/Vol] 59 mg/dL High 6-23 [facility] Comment on above: Performed By: #### 2 4362-6 ####JASON Carrasquillo ([id number])[facility] ([facility])[id number] [place] [address] TacrolimusOrdered By: Nicki Gilmore on 10-17-2024 Tacrolimus (Bld) [Mass/Vol] 3.4 ng/mL NINF - 15.0 ng/mL [facility] Tacrolimuson 10-17-2024 Tacrolimus (Bld) [Mass/Vol] 3.4 ng/mL Normal <=15.0 [facility] Comment on above: Order Comment: NOTE: Result was obtained using achemiluminescent microparticle immunoassay(CMIA) on the [employer] i system.Optimal therapeutic ranges for immunosuppressantdrugs depend upon an individualpatient's current clinical state, type oforgan transplant, time post-transplant,co-administration of other immunosuppressants,and other clinical factors. The results ofthis test should be correlated with additionalclinical and laboratory data before changesin treatment regimens are made. Performed By: #### 1 1253-2 ####JASON Carrasquillo ([id number])[facility] ([facility])[address] [place] [address] Tacrolimus (Bld) [Mass/Vol]O rdered By: Nicki Gilmore on 10-17-2024 Interpretation and review of laboratory results Normal [facility] US KIDNEY TRANSPLANTon 10-17 US KIDNEY TRANSPLANT Normal [facility] US for transplanted kidneyon 10-17-2024 MMODAL [facility] MMODAL [facility] Work Phone: [facility] Work Phone: Radiology Study observation (narrative) [facility] Work Phone: CBC W Auto Differential pane l (Bld)Ordered By: Maddison Maki on 10-16-2024 Basophils (Bld) [#/Vol] 0.01 10*3/uL [facility] Basophils/100 WBC (Bld) 0.1 % 0.0 - 2.0 % [facility] Eosinophils (Bld) [#/Vol] 0 10*3/uL [facility] Eosinophils/100 WBC (Bld) 0 % 0.0 - 6.0 % [facility] Erythrocyte distribution width (RBC) [Ratio] 17.5 % High 11.5 - 14.5 % [facility] Hematocrit (Bld) [Volume fraction] 28.5 % Low 41.0 - 52.0 % [facility] Hemoglobin (Bld) [Mass/Vol] 8.7 g/dL Low 13.5 - 17.5 g/dL [facility] Immature granulocytes (Bld) [#/Vol] 0.07 10*3/uL [facility] Immature granulocytes/100 WBC (Bld) 0.8 % 0.0 - 0.9 % [facility] Interpretation and review of laboratory results Abnormal [facility] Lymphocytes (Bld) [#/Vol] 0.05 10*3/uL Low [facility] Lymphocytes/100 WBC (Bld) 0.6 % 13.0 - 44.0 % [facility] MCH (RBC) [Entitic mass] 24.6 pg Low 26.0 - 34.[address] [facility] MCHC (RBC) [Mass/Vol] 30.5 g/dL Low 32.0 - 36.0 g/dL [facility] MCV (RBC) [Entitic vol] 81 fL 80 - [address] [facility] Monocytes (Bld) [#/Vol] 0.37 10*3/uL [facility] Monocytes/100 WBC (Bld) 4.2 % 2.0 - 10.0 % [facility] Neutrophils (Bld) [#/Vol] 8.21 10*3/uL High [facility] Neutrophils/100 WBC (Bld) 94.3 % 40.0 - 80.0 % [facility] Nucleated RBC/100 WBC (Bld) [Ratio] 0 % [facility] Platelets (Bld) [#/Vol] 95 10*3/uL Low [facility] RBC (Bld) [#/Vol] 3.54 10*6/uL Low [facility] WBC (Bld) [#/Vol] 8.7 10*3/uL [facility] CBC W Auto Differential pane l (Bld)on 10-16-2024 Basophils (Bld) [#/Vol] 0.01 x10*3/uL Normal 0.00-0.10 [facility] Comment on above: Performed By: #### 5 7021-8 ####JASON Carrasquillo ([id number])[facility] ([facility])[address] [place] [address] Basophils/100 WBC (Bld) 0.1 % Normal 0.0-2.0 [facility] Comment on above: Performed By: #### 5 7021-8 ####JASON Carrasquillo ([id number])[facility] ([facility])[address] [place] [address] Eosinophils (Bld) [#/Vol] 0.00 x10*3/uL Normal 0.00-0.70 [facility] Comment on above: Performed By: #### 5 7021-8 ####JASON Carrasquillo ([id number])[facility] ([facility])[address] [place] [address] Eosinophils/100 WBC (Bld) 0.0 % Normal 0.0-6.0 [facility] Comment on above: Performed By: #### 5 7021-8 ####JASON Carrasquillo ([id number])[facility] ([facility])[id number] [place] [address] Erythrocyte distribution width (RBC) [Ratio] 17.5 % High 11.5-14.5 [facility] Comment on above: Performed By: #### 5 7021-8 ####JASON Carrasquillo ([id number])[facility] ([facility])[id number] [place] [address] Hematocrit (Bld) [Volume fraction] 28.5 % Low 41.0-52.0 [facility] Comment on above: Performed By: #### 5 7021-8 ####JASON Carrasquillo ([id number])[facility] ([facility])[id number] [place] [address] Hemoglobin (Bld) [Mass/Vol] 8.7 g/dL Low 13.5-17.5 [facility] Comment on above: Performed By: #### 5 7021-8 ####JASON Carrasquillo ([id number])[facility] ([facility])[address] [place] [address] Immature granulocytes (Bld) [#/Vol] 0.07 x10*3/uL Normal 0.00-0.70 [facility] Comment on above: Performed By: #### 5 7021-8 ####JASON Carrasquillo ([id number])[facility] ([facility])[address] [place] [address] Immature granulocytes/100 WBC (Bld) 0.8 % Normal 0.0-0.9 [facility] Comment on above: Performed By: #### 5 7021-8 ####JASON Carrasquillo ([id number])[facility] ([facility])[address] [place] [address] Lymphocytes (Bld) [#/Vol] 0.05 x10*3/uL Low 1.20-4.80 [facility] Comment on above: Performed By: #### 5 7021-8 ####JASON Carrasquillo ([id number])[facility] ([facility])[address] [place] [address] Lymphocytes/100 WBC (Bld) 0.6 % Normal 13.0-44.0 [facility] Comment on above: Performed By: #### 5 7021-8 ####JASON Carrasquillo ([id number])[facility] ([facility])[address] [place] [address] MCH (RBC) [Entitic mass] 24.6 pg Low 26.0-34.0 [facility] Comment on above: Performed By: #### 5 7021-8 ####JASON Carrasquillo ([id number])[facility] ([facility])[address] [place] [address] MCHC (RBC) [Mass/Vol] 30.5 g/dL Low 32.0-36.0 [facility] Comment on above: Performed By: #### 5 7021-8 ####JASON Carrasquillo ([id number])[facility] ([facility])[address] [place] [address] MCV (RBC) [Entitic vol] 81 fL Normal 80-100 [facility] Comment on above: Performed By: #### 5 7021-8 ####JASON Carrasquillo ([id number])[facility] ([facility])[address] [place] [address] Monocytes (Bld) [#/Vol] 0.37 x10*3/uL Normal 0.10-1.00 [facility] Comment on above: Performed By: #### 5 7021-8 ####JASON JENNINGS L ([id number])[facility] ([facility])[address] [place] [address] Monocytes/100 WBC (Bld) 4.2 % Normal 2.0-10.0 [facility] Comment on above: Performed By: #### 5 7021-8 ####JASON Carrasquillo ([id number])[facility] ([facility])[address] [place] [address] Neutrophils (Bld) [#/Vol] 8.21 x10*3/uL High 1.20-7.70 [facility] Comment on above: Performed By: #### 5 7021-8 ####JASON JENNINGS L ([id number])[facility] ([facility])[address] [place] [address] Neutrophils/100 WBC (Bld) 94.3 % Normal 40.0-80.0 [facility] Comment on above: Performed By: #### 5 7021-8 ####JASON Carrasquillo ([id number])[facility] ([facility])[address] [place] [address] Nucleated RBC/100 WBC (Bld) [Ratio] 0.0 /100 WBCs Normal 0.0-0.0 [facility] Comment on above: Performed By: #### 5 7021-8 ####JASON JENNINGS L ([id number])[facility] ([facility])[address] [place] [address] Platelets (Bld) [#/Vol] 95 x10*3/uL Low 150-450 [facility] Comment on above: Performed By: #### 5 7021-8 ####JASON Carrasquillo ([id number])[facility] ([facility])[address] [place] [address] RBC (Bld) [#/Vol] 3.54 x10*6/uL Low 4.50-5.90 [facility] Comment on above: Performed By: #### 5 7021-8 ####JASON Carrasquillo ([id number])[facility] ([facility])[address] [place] [address] WBC (Bld) [#/Vol] 8.7 x10*3/uL Normal 4.4-11.3 [facility] Comment on above: Performed By: #### 5 7021-8 ####JASON Carrasquillo ([id number])[facility] ([facility])[address] [place] [address] CBC panel Auto (Bld)on 10-16 Erythrocyte distribution width (RBC) [Ratio] 16.8 % High 11.5 - 14.5 % [facility] Hematocrit (Bld) [Volume fraction] 27.2 % Low 41.0 - 52.0 % [facility] Hemoglobin (Bld) [Mass/Vol] 8.6 g/dL Low 13.5 - 17.5 g/dL [facility] Interpretation and review of laboratory results Abnormal [facility] MCH (RBC) [Entitic mass] 24.1 pg Low 26.0 - 34.[address] [facility] MCHC (RBC) [Mass/Vol] 31.6 g/dL Low 32.0 - 36.0 g/dL [facility] MCV (RBC) [Entitic vol] 76 fL Low 80 - [address] [facility] Nucleated RBC/100 WBC (Bld) [Ratio] 0 % [facility] Platelets (Bld) [#/Vol] 80 10*3/uL Low [facility] RBC (Bld) [#/Vol] 3.57 10*6/uL Low [facility] WBC (Bld) [#/Vol] 5.5 10*3/uL [facility] Erythrocyte distribution width (RBC) [Ratio] 16.8 % High 11.5-14.5 [facility] Comment on above: Performed By: #### 5 8410-2 ####JASON Carrasquillo ([id number])[facility] ([facility])[id number] [place] [address] Hematocrit (Bld) [Volume fraction] 27.2 % Low 41.0-52.0 [facility] Comment on above: Performed By: #### 5 8410-2 ####JASON Carrasquillo ([id number])[facility] ([facility])[address] [place] [address] Hemoglobin (Bld) [Mass/Vol] 8.6 g/dL Low 13.5-17.5 [facility] Comment on above: Performed By: #### 5 8410-2 ####JASON Carrasquillo ([id number])[facility] ([facility])[address] [place] [address] MCH (RBC) [Entitic mass] 24.1 pg Low 26.0-34.0 [facility] Comment on above: Performed By: #### 5 8410-2 ####JASON Carrasquillo ([id number])[facility] ([facility])[address] [place] [address] MCHC (RBC) [Mass/Vol] 31.6 g/dL Low 32.0-36.0 [facility] Comment on above: Performed By: #### 5 8410-2 ####JASON Carrasquillo ([id number])[facility] ([facility])[address] [place] [address] MCV (RBC) [Entitic vol] 76 fL Low 80-100 [facility] Comment on above: Performed By: #### 5 8410-2 ####JASON Carrasquillo ([id number])[facility] ([facility])[address] [place] [address] Nucleated RBC/100 WBC (Bld) [Ratio] 0.0 /100 WBCs Normal 0.0-0.0 [facility] Comment on above: Performed By: #### 5 8410-2 ####JASON Carrasquillo ([id number])[facility] ([facility])[address] [place] [address] Platelets (Bld) [#/Vol] 80 x10*3/uL Low 150-450 [facility] Comment on above: Performed By: #### 5 8410-2 ####JASON Carrasquillo ([id number])[facility] ([facility])[address] [place] [address] RBC (Bld) [#/Vol] 3.57 x10*6/uL Low 4.50-5.90 [facility] Comment on above: Performed By: #### 5 8410-2 ####JASON Carrasquillo ([id number])[facility] ([facility])[address] [place] [address] WBC (Bld) [#/Vol] 5.5 x10*3/uL Normal 4.4-11.3 [facility] Comment on above: Performed By: #### 5 8410-2 ####JASON Carrasquillo ([id number])[facility] ([facility])[address] [place] [address] Glucose Test strip manual (B ld) [Mass/Vol]on 10-16-2024 Glucose [Mass/Vol] 169 mg/dL High 74 - 99 mg/dL [facility] Interpretation and review of laboratory results Abnormal [facility] Glucose [Mass/Vol] 169 mg/dL High 74-99 [facility] Comment on above: Performed By: #### 2 341-6 ####JASON JENNINGS L ([id number])[facility] ([facility])[address] [place] [address] Glucose [Mass/Vol] 194 mg/dL High 74 - 99 mg/dL [facility] Interpretation and review of laboratory results Abnormal [facility] Glucose [Mass/Vol] 194 mg/dL High 74-99 [facility] Comment on above: Performed By: #### 2 341-6 ####JASON Carrasquillo ([id number])[facility] ([facility])[address] [place] [address] Glucose [Mass/Vol] 229 mg/dL High 74 - 99 mg/dL [facility] Interpretation and review of laboratory results Abnormal [facility] Glucose [Mass/Vol] 229 mg/dL High 74-99 [facility] Comment on above: Performed By: #### 2 341-6 ####JASON Carrasquillo ([id number])[facility] ([facility])[address] [place] [address] Glucose [Mass/Vol] 244 mg/dL High 74 - 99 mg/dL [facility] Interpretation and review of laboratory results Abnormal [facility] Glucose [Mass/Vol] 244 mg/dL High 74-99 [facility] Comment on above: Performed By: #### 2 341-6 ####JASON Carrasquillo ([id number])[facility] ([facility])[address] [place] [address] Glucose [Mass/Vol] 220 mg/dL High 74 - 99 mg/dL [facility] Interpretation and review of laboratory results Abnormal [facility] Glucose [Mass/Vol] 220 mg/dL High 74-99 [facility] Comment on above: Performed By: #### 2 341-6 ####JASON Carrasquillo ([id number])[facility] ([facility])[id number] [place] [address] Magnesiumon 10-16-2024 Magnesium [Mass/Vol] 2 mg/dL 1.60 - 2.40 mg/dL [facility] Magnesium [Mass/Vol] 2.00 mg/dL Normal 1.60-2.40 [facility] Comment on above: Performed By: #### 1 9123-9 ####JASON Carrasquillo ([id number])[facility] ([facility])[id number] [place] [address] Magnesium [Mass/Vol]on 10-16 Interpretation and review of laboratory results Normal [facility] No Panel Informationon 10-[address] [facility] Renal function 2000 panelon 10-16-2024 Albumin BCP dye [Mass/Vol] 3.1 g/dL Low 3.4 - 5.0 g/dL [facility] Anion gap [Moles/Vol] 20 mmol/L 10 - 20 mmol/L [facility] Calcium [Mass/Vol] 7.6 mg/dL Low 8.6 - 10. 6 mg/dL [facility] Chloride [Moles/Vol] 97 mmol/L Low 98 - 10 7 mmol/L [facility] CO2 [Moles/Vol] 25 mmol/L 21 - 32 mmol/L [facility] Creatinine [Mass/Vol] 7.03 mg/dL High 0.50 - 1.30 mg/dL [facility] GFR/1.73 sq M.predicted among non-blacks MDRD (S/P/Bld) [Vol rate/Area] 9 mL/min/{1.73_m2} Low - PINF [facility] Glucose [Mass/Vol] 233 mg/dL High 74 - 99 mg/dL [facility] Interpretation and review of laboratory results Abnormal [facility] Phosphate [Mass/Vol] 5 mg/dL High 2.5 - 4 .9 mg/dL [facility] Potassium [Moles/Vol] 3.6 mmol/L 3.5 - 5.3 mmol/L [facility] Sodium [Moles/Vol] 138 mmol/L 136 - 145 mmol/L [facility] Urea nitrogen [Mass/Vol] 34 mg/dL High 6 - 23 mg/dL [facility] Albumin BCP dye [Mass/Vol] 3.1 g/dL Low 3.4-5.0 [facility] Comment on above: Performed By: #### 2 4362-6 ####JASON Carrasquillo ([id number])[facility] ([facility])[id number] [place] [address] Anion gap [Moles/Vol] 20 mmol/L Normal 10-20 [facility] Comment on above: Performed By: #### 2 4362-6 ####JASON JENNINGS L ([id number])[facility] ([facility])[address] [place] [address] Calcium [Mass/Vol] 7.6 mg/dL Low 8.6-10.6 [facility] Comment on above: Performed By: #### 2 4362-6 ####JASON JENNINGS L ([id number])[facility] ([facility])[address] [place] [address] Chloride [Moles/Vol] 97 mmol/L Low 98-107 [facility] Comment on above: Performed By: #### 2 4362-6 ####JASON JENNINGS L ([id number])[facility] ([facility])[address] [place] [address] CO2 [Moles/Vol] 25 mmol/L Normal 21-32 [facility] Comment on above: Performed By: #### 2 4362-6 ####JASON JENNINGS L ([id number])[facility] ([facility])[address] [place] [address] Creatinine [Mass/Vol] 7.03 mg/dL High 0.50-1.30 [facility] Comment on above: Performed By: #### 2 4362-6 ####JASON JENNINGS L ([id number])[facility] ([facility])[address] [place] [address] Glomerular filtration rate/1.73 sq M.predicted 9 mL/min/1.73m*2 Low >60 [facility] Comment on above: Result Comment: Calc ulations of estimated GFR are performed using the 2020 CKD-EPI Study Refit equation without the race variable for the IDMS-Traceable creatinine methods.https://jasn.asnjournals.org/content/early// [email or web address] Performed By: #### 2 4362-6 ####JASON JENNINGS L ([id number])[facility] ([facility])[address] [place] [address] Glucose [Mass/Vol] 233 mg/dL High 74-99 [facility] Comment on above: Performed By: #### 2 4362-6 ####JASON Carrasquillo ([id number])[facility] ([facility])[address] [place] [address] Phosphate [Mass/Vol] 5.0 mg/dL High 2.5-4.9 [facility] Comment on above: Performed By: #### 2 4362-6 ####JASON Carrasquillo ([id number])[facility] ([facility])[address] [place] [address] Potassium [Moles/Vol] 3.6 mmol/L Normal 3.5-5.3 [facility] Comment on above: Performed By: #### 2 4362-6 ####JASON Carrasquillo ([id number])[facility] ([facility])[address] [place] [address] Sodium [Moles/Vol] 138 mmol/L Normal 136-145 [facility] Comment on above: Performed By: #### 2 4362-6 ####JASON Carrasquillo ([id number])[facility] ([facility])[address] [place] [address] Urea nitrogen [Mass/Vol] 34 mg/dL High 6-23 [facility] Comment on above: Performed By: #### 2 4362-6 ####JASON Carrasquillo ([id number])[facility] ([facility])[address] [place] [address] US for transplanted kidneyon 10-16-2024 [facility] MMODAL UH MMODAL [facility] Work Phone: US for transplanted kidneyOr dered By: Ronni Hendricks on 10-16-[address] [facility] Work Phone: Basic metabolic 2000 panelon 10-15-2024 Anion gap [Moles/Vol] 15 mmol/L 10 - 20 mmol/L [facility] Calcium [Mass/Vol] 8.6 mg/dL 8.6 - 10. 6 mg/dL [facility] Chloride [Moles/Vol] 93 mmol/L Low 98 - 10 7 mmol/L [facility] CO2 [Moles/Vol] 35 mmol/L High 21 - 32 mmol/L [facility] Creatinine [Mass/Vol] 5.96 mg/dL High 0.50 - 1.30 mg/dL [facility] GFR/1.73 sq M.predicted among non-blacks MDRD (S/P/Bld) [Vol rate/Area] 10 mL/min/{1.73_m2} Low - PINF [facility] Glucose [Mass/Vol] 122 mg/dL High 74 - 99 mg/dL [facility] Interpretation and review of laboratory results Abnormal [facility] Potassium [Moles/Vol] 3.6 mmol/L 3.5 - 5.3 mmol/L [facility] Sodium [Moles/Vol] 139 mmol/L 136 - 145 mmol/L [facility] Urea nitrogen [Mass/Vol] 23 mg/dL 6 - 23 mg/dL [facility] Anion gap [Moles/Vol] 15 mmol/L Normal 10-20 [facility] Comment on above: Performed By: #### 2 4321-2 ####JASON Carrasquillo ([id number])[facility] ([facility])[address] [place] [address] Calcium [Mass/Vol] 8.6 mg/dL Normal 8.6-10.6 [facility] Comment on above: Performed By: #### 2 4321-2 ####JASON Carrasquillo ([id number])[facility] ([facility])[address] [place] [address] Chloride [Moles/Vol] 93 mmol/L Low 98-107 [facility] Comment on above: Performed By: #### 2 4321-2 ####JASON Carrasquillo ([id number])[facility] ([facility])[address] [place] [address] CO2 [Moles/Vol] 35 mmol/L High 21-32 [facility] Comment on above: Performed By: #### 2 4321-2 ####JASON POPETZER L ([id number])[facility] ([facility])[address] [place] [address] Creatinine [Mass/Vol] 5.96 mg/dL High 0.50-1.30 [facility] Comment on above: Performed By: #### 2 4321-2 ####JASON CLARKMOTZER L ([id number])[facility] ([facility])[address] [place] [address] Glomerular filtration rate/1.73 sq M.predicted 10 mL/min/1.73m*2 Low >60 [facility] Comment on above: Result Comment: Calc ulations of estimated GFR are performed using the 2020 CKD-EPI Study Refit equation without the race variable for the IDMS-Traceable creatinine methods.https://jasn.asnjournals.org/content/early/ N.9818043728 Performed By: #### 2 4321-2 ####JASON SUTHERLANDER L ([id number])[facility] ([facility])[address] [place] [address] Glucose [Mass/Vol] 122 mg/dL High 74-99 [facility] Comment on above: Performed By: #### 2 4321-2 ####JASON CLARKMOTZER L ([id number])[facility] ([facility])[address] [place] [address] Potassium [Moles/Vol] 3.6 mmol/L Normal 3.5-5.3 [facility] Comment on above: Result Comment: MILD HEMOLYSIS DETECTED. The result may be falsely elevated due to hemolysis or other interferents. Clinical correlation is recommended. Repeat testing may be considered. Performed By: #### 2 4321-2 ####JASON CLARKMOTZER L ([id number])[facility] ([facility])[address] [place] [address] Sodium [Moles/Vol] 139 mmol/L Normal 136-145 [facility] Comment on above: Performed By: #### 2 4321-2 ####JASON Carrasquillo ([id number])[facility] ([facility])[address] [place] [address] Urea nitrogen [Mass/Vol] 23 mg/dL Normal 6- [facility] Comment on above: Performed By: #### 2 4321-2 ####JASON Carrasquillo ([id number])[facility] ([facility])[address] [place] [address] Blood type and Indirect anti body screen panel (Bld)on 10-15-2024 ABO group Nom (Bld) B [facility] Blood group antibody screen Ql Negative [facility] D Ag Ql (Bld) Positive [facility] ABO group Nom (Bld) B Normal [facility] Comment on above: Order Comment: As ne eded preprocedure ONCE for scheduled for aortic, liver, cardiac, or thoracic surgery OR hgb<7.5mg/dl and no active type and screen. RN to release order. Performed By: #### 3 4532-2 ####JASON Carrasquillo ([id number])[facility] ([facility])[id number] [place] [address] Blood group antibody screen Ql Negative [facility] Comment on above: Order Comment: As ne eded preprocedure ONCE for scheduled for aortic, liver, cardiac, or thoracic surgery OR hgb<7.5mg/dl and no active type and screen. RN to release order. Performed By: #### 3 4532-2 ####JASON Carrasquillo ([id number])[facility] ([facility])[address] [place] [address] D Ag Ql (Bld) Positive [facility] Comment on above: Order Comment: As ne eded preprocedure ONCE for scheduled for aortic, liver, cardiac, or thoracic surgery OR hgb<7.5mg/dl and no active type and screen. RN to release order. Performed By: #### 3 4532-2 ####JASON Carrasquillo ([id number])[facility] ([facility] [place] [address] CBC W Auto Differential pane l (Bld)on 10-15-2024 Basophils (Bld) [#/Vol] 0 10*3/uL [facility] Basophils/100 WBC (Bld) 0 % 0.0 - 2.0 % [facility] Eosinophils (Bld) [#/Vol] 0.01 10*3/uL [facility] Eosinophils/100 WBC (Bld) 0.4 % 0.0 - 6.0 % [facility] Erythrocyte distribution width (RBC) [Ratio] 16.9 % High 11.5 - 14.5 % [facility] Hematocrit (Bld) [Volume fraction] 28.1 % Low 41.0 - 52.0 % [facility] Hemoglobin (Bld) [Mass/Vol] 9.2 g/dL Low 13.5 - 17.5 g/dL [facility] Immature granulocytes (Bld) [#/Vol] 0 10*3/uL [facility] Immature granulocytes/100 WBC (Bld) 0 % 0.0 - 0.9 % [facility] Interpretation and review of laboratory results Abnormal [facility] Lymphocytes (Bld) [#/Vol] 0.03 10*3/uL Low [facility] Lymphocytes/100 WBC (Bld) 1.1 % 13.0 - 44.0 % [facility] MCH (RBC) [Entitic mass] 24.6 pg Low 26.0 - 34.[address] [facility] MCHC (RBC) [Mass/Vol] 32.7 g/dL 32.0 - 36.0 g/dL [facility] MCV (RBC) [Entitic vol] 75 fL Low 80 - [address] [facility] Monocytes (Bld) [#/Vol] 0.02 10*3/uL Low [facility] Monocytes/100 WBC (Bld) 0.8 % 2.0 - 10.0 % [facility] Neutrophils (Bld) [#/Vol] 2.56 10*3/uL [facility] Neutrophils/100 WBC (Bld) 97.7 % 40.0 - 80.0 % [facility] Nucleated RBC/100 WBC (Bld) [Ratio] 0 % [facility] Platelets (Bld) [#/Vol] 58 10*3/uL Low [facility] RBC (Bld) [#/Vol] 3.74 10*6/uL [facility] WBC (Bld) [#/Vol] 2.6 10*3/uL [facility] Basophils (Bld) [#/Vol] 0.00 x10*3/uL Normal 0.00-0.10 [facility] Comment on above: Order Comment: After arrival in PACU unless already done in the operating room. Performed By: #### 5 7021-8 ####JASON Carrasquillo ([id number])[facility] ([facility])[address] [place] [address] Basophils/100 WBC (Bld) 0.0 % Normal 0.0-2.0 [facility] Comment on above: Order Comment: After arrival in PACU unless already done in the operating room. Performed By: #### 5 7021-8 ####JASON Carrasquillo ([id number])[facility] ([facility])[address] [place] [address] Eosinophils (Bld) [#/Vol] 0.01 x10*3/uL Normal 0.00-0.70 [facility] Comment on above: Order Comment: After arrival in PACU unless already done in the operating room. Performed By: #### 5 7021-8 ####JASON Carrasquillo ([id number])[facility] ([facility])[address] [place] [address] Eosinophils/100 WBC (Bld) 0.4 % Normal 0.0-6.0 [facility] Comment on above: Order Comment: After arrival in PACU unless already done in the operating room. Performed By: #### 5 7021-8 ####JASON Carrasquillo ([id number])[facility] ([facility])[address] [place] [address] Erythrocyte distribution width (RBC) [Ratio] 16.9 % High 11.5-14.5 [facility] Comment on above: Order Comment: After arrival in PACU unless already done in the operating room. Performed By: #### 5 7021-8 ####JASON Carrasquillo ([id number])[facility] ([facility])[address] [place] [address] Hematocrit (Bld) [Volume fraction] 28.1 % Low 41.0-52.0 [facility] Comment on above: Order Comment: After arrival in PACU unless already done in the operating room. Performed By: #### 5 7021-8 ####JASON Carrasquillo ([id number])[facility] ([facility])[address] [place] [address] Hemoglobin (Bld) [Mass/Vol] 9.2 g/dL Low 13.5-17.5 [facility] Comment on above: Order Comment: After arrival in PACU unless already done in the operating room. Performed By: #### 5 7021-8 ####JASON Carrasquillo ([id number])[facility] ([facility])[address] [place] [address] Immature granulocytes (Bld) [#/Vol] 0.00 x10*3/uL Normal 0.00-0.70 [facility] Comment on above: Order Comment: After arrival in PACU unless already done in the operating room. Performed By: #### 5 7021-8 ####JASON Carrasquillo ([id number])[facility] ([facility])[address] [place] [address] Immature granulocytes/100 WBC (Bld) 0.0 % Normal 0.0-0.9 [facility] Comment on above: Order Comment: After arrival in PACU unless already done in the operating room. Result Comment: Shantell ture Granulocyte Count (IG) includes promyelocytes, myelocytes and metamyelocytes but does not include bands. Percent differential counts (%) should be interpreted in the context of the absolute cell counts (cells/UL). Performed By: #### 5 7021-8 ####JASON Carrasquillo ([id number])[facility] ([facility])[address] [place] [address] Lymphocytes (Bld) [#/Vol] 0.03 x10*3/uL Low 1.20-4.80 [facility] Comment on above: Order Comment: After arrival in PACU unless already done in the operating room. Performed By: #### 5 7021-8 ####JASON Carrasquillo ([id number])[facility] ([facility])[address] [place] [address] Lymphocytes/100 WBC (Bld) 1.1 % Normal 13.0-44.0 [facility] Comment on above: Order Comment: After arrival in PACU unless already done in the operating room. Performed By: #### 5 7021-8 ####JASON Carrasquillo ([id number])[facility] ([facility])[address] [place] [address] MCH (RBC) [Entitic mass] 24.6 pg Low 26.0-34.0 [facility] Comment on above: Order Comment: After arrival in PACU unless already done in the operating room. Performed By: #### 5 7021-8 ####JASON Carrasquillo ([id number])[facility] ([facility])[address] [place] [address] MCHC (RBC) [Mass/Vol] 32.7 g/dL Normal 32.0-36.0 [facility] Comment on above: Order Comment: After arrival in PACU unless already done in the operating room. Performed By: #### 5 7021-8 ####JASON Carrasquillo ([id number])[facility] ([facility])[address] [place] [address] MCV (RBC) [Entitic vol] 75 fL Low 80-100 [facility] Comment on above: Order Comment: After arrival in PACU unless already done in the operating room. Performed By: #### 5 7021-8 ####JASON Carrasquillo ([id number])[facility] ([facility])[address] [place] [address] Monocytes (Bld) [#/Vol] 0.02 x10*3/uL Low 0.10-1.00 [facility] Comment on above: Order Comment: After arrival in PACU unless already done in the operating room. Performed By: #### 5 7021-8 ####JASON Carrasquillo ([id number])[facility] ([facility])[address] [place] [address] Monocytes/100 WBC (Bld) 0.8 % Normal 2.0-10.0 [facility] Comment on above: Order Comment: After arrival in PACU unless already done in the operating room. Performed By: #### 5 7021-8 ####JASON Carrasquillo ([id number])[facility] ([facility])[address] [place] [address] Neutrophils (Bld) [#/Vol] 2.56 x10*3/uL Normal 1.20-7.70 [facility] Comment on above: Order Comment: After arrival in PACU unless already done in the operating room. Result Comment: Perc ent differential counts (%) should be interpreted in the context of the absolute cell counts (cells/uL). Performed By: #### 5 7021-8 ####JASON Carrasquillo ([id number])[facility] ([facility])[address] [place] [address] Neutrophils/100 WBC (Bld) 97.7 % Normal 40.0-80.0 [facility] Comment on above: Order Comment: After arrival in PACU unless already done in the operating room. Performed By: #### 5 7021-8 ####JASNO Carrasquillo ([id number])[facility] ([facility])[address] [place] [address] Nucleated RBC/100 WBC (Bld) [Ratio] 0.0 /100 WBCs Normal 0.0-0.0 [facility] Comment on above: Order Comment: After arrival in PACU unless already done in the operating room. Performed By: #### 5 7021-8 ####JASON Carrasquillo ([id number])[facility] ([facility])[address] [place] [address] Platelets (Bld) [#/Vol] 58 x10*3/uL Low 150-450 [facility] Comment on above: Order Comment: After arrival in PACU unless already done in the operating room. Performed By: #### 5 7021-8 ####JASON Carrasquillo ([id number])[facility] ([facility])[address] [place] [address] RBC (Bld) [#/Vol] 3.74 x10*6/uL Low 4.50-5.90 [facility] Comment on above: Order Comment: After arrival in PACU unless already done in the operating room. Performed By: #### 5 7021-8 ####JASON Carrasquillo ([id number])[facility] ([facility])[address] [place] [address] WBC (Bld) [#/Vol] 2.6 x10*3/uL Low 4.4-11.3 [facility] Comment on above: Order Comment: After arrival in PACU unless already done in the operating room. Performed By: #### 5 7021-8 ####JASON Carrasquillo ([id number])[facility] ([facility])[address] [place] [address] CMV IgG avidity IA [Ratio]on 10-15-2024 Interpretation and review of laboratory results Abnormal [facility] Calcidiolon 10-15-2024 25-hydroxyvitamin D3 [Mass/Vol] 68 ng/mL Normal 30-100 [facility] Comment on above: Order Comment: Defic iency: < 20 ng/mlInsufficiency: 20-29 ng/mlSufficiency: 30-100 ng/mlThis assay accurately quantifies the sum of Vitamin D3, 25-Hydroxy and Vitamin D2,25-Hydroxy. Performed By: #### 1 989-3 ####JASON Carrasquillo ([id number])[facility] ([facility])[address] [place] [address] Cytomegalovirus Ab.IgG avidi tyon 10-15-2024 CMV IgG avidity IA [Ratio] Reactive Abnormal Nonreactive [facility] Comment on above: Order Comment: Quant itative.On admission Performed By: #### 5 2984-2 ####JASON Carrasquillo ([id number])[facility] ([facility])[address] [place] [address] Cytomegalovirus IgGon 2024 CMV IgG avidity IA [Ratio] Reactive Abnormal Nonreactive [facility] EBV nuclear Ab Ql (S)Ordered By: Bill Jack on 10-15-2024 Interpretation and review of laboratory results Abnormal [facility] ECG 12-LEADon 10-15-2024 ECG 12-LEAD Ventricular Rate 65 Atrial Rate 65 P-R Interval 196 QRS Duration 158 Q-T Interval 484 QTC Calculation(Bazett) 503 P [place] 63 R [place] -53 T [place] 40 QRS Count 11 Q Onset 226 P Onset 128 P Offset 188 T Offset 468 QTC Fredericia 496 Diagnosis Normal sinus rhythm Left axis deviation Right bundle branch block Abnormal ECG When compared with ECG of 18-NOV-2023 10:21, Right bundle branch block is now Present Criteria for Septal infarct are no longer Present Confirmed by Garrett Galvin ([id number]) on 10/26/2024 7:05:[address] [facility] Joseluis Argueta virus nuclear A bon 10-15-2024 EBV nuclear Ab Ql (S) Positive Abnormal Negative Uni [facility] Comment on above: Order Comment: EBV I NTERPRETATION CHARTPRIMARY ACUTEVCA-IGG: +/-VCA-IGM: +/-EA-IGG: +/-NA-IGG: -LATE ACUTEVCA-IGG: +VCA-IGM: +/-EA-IGG: +/-NA-IGG: +/-RECOVERINGVCA-IGG: +VCA-IGM: -EA-IGG: +NA-IGG: -PREVIOUS INFECTIONVCA-IGG: +VCA-IGM: -EA-IGG: -NA-IGG: +/- Performed By: #### 2 2296-8 ####JASON Carrasquillo ([id number])[facility] ([facility])[address] [place] [address] Joseulis-Argueta Virus Nuclear A ntigen Antibody, IgGOrdered By: Bill Jack on 10-15-2024 EBV nuclear Ab Ql (S) Positive Abnormal Negative Uni [facility] FLOW ALLOCROSSMATCHon 2024 FLOW ALLOCROSSMATCH Normal [facility] Comment on above: Order Comment: Test performed at:[facility] LaboratoryW.[facility], [address] [place] [address] Performed By: #### F NAKUL ####ANTHONY HEREDIA S ([id number]) [facility] ([facility])[address] [place] [address] HLA RESULTS See Attached Normal [facility] Comment on above: Order Comment: Test performed at:[facility], [address] [place] [address] Performed By: #### F NAKUL ####ANTHONY HEREDIA S ([id number]) [facility] ([facility])[address] [place], [place] [id number] FLOW ALLOCROSSMATCH PEAKon 0 10-15-2024 FLOW ALLOCROSSMATCH PEAK See Flow Allocrossmatch Report Normal [facility] Comment on above: Order Comment: Test performed at:[facility] LaboratoryW.[facility]St[facility], [address] [place] [address] Performed By: #### F LALP ####ANTHONY HEREDIA S ([id number]) [facility] ([facility])[address] [place], [place] [id number] HLA RESULTS See Flow Allocrossma tch Report Normal [facility] Comment on above: Order Comment: Test performed at:[facility], [address] [place] [address] Performed By: #### F LALP ####ANTHONY OLIVEIRASPAN S ([id number]) [facility] ([facility])[address] [place] [address] Gas and Carbon monoxide and Electrolytes panel (BldA)on 10-15-2024 Anion gap 4 (BldA) [Moles/Vol] [address] [facility] Base excess Calc (Bld) [Moles/Vol] -0.8000 mmol/L -2.0 - 3.0 mmol/L [facility] Calcium.ionized (BldA) [Moles/Vol] 0.93 mmol/L Low 1.10 - 1.33 mmol/L [facility] Chloride (BldA) [Moles/Vol] 103 mmol/L 98 - 107 mmol/L [facility] CO2 (Bld) [Partial pressure] 45 mm[Hg] High [facility] Glucose [Mass/Vol] 196 mg/dL High 74 - 99 mg/dL [facility] HCO3 (Bld) [Moles/Vol] 24.8 mmol/L 22.0 - 26.0 mmol/L [facility] Hematocrit Est (Bld) [Volume fraction] 23 % Low 41.0 - 52.0 % [facility] Hemoglobin (Bld) [Mass/Vol] 7.8 g/dL Low 13.5 - 17.5 g/dL [facility] Inhaled oxygen concentration 21 % [facility] Interpretation and review of laboratory results Abnormal [facility] Lactate (BldA) [Moles/Vol] 1.1 mmol/L 0.4 - 2.0 mmol/L [facility] Oxygen (Bld) [Partial pressure] 116 mm[Hg] High [facility] Oxyhemoglobin (BldA) [Mass fraction] 97.6 % 94.0 - 98.0 % [facility] pH (Bld) 7.35 [pH] Low 7.38 - 7.[address] [facility] Potassium (BldA) [Moles/Vol] 3.2 mmol/L Low 3.5 - 5.3 mmol/L [facility] Sodium (BldA) [Moles/Vol] 136 mmol/L 136 - 145 mmol/L [facility] Anion gap 4 (BldA) [Moles/Vol] 11 mmo/L Normal 10-25 [facility] Comment on above: Performed By: #### 9 3685-6 ####JASON Carrasquillo ([id number])[facility] ([facility])[address] [place] [address] Base excess Calc (Bld) [Moles/Vol] -0.8000 mmol/L Normal -2.0-3.0 [facility] Comment on above: Performed By: #### 9 3685-6 ####JASON Carrasquillo ([id number])[facility] ([facility])[address] [place] [address] Calcium.ionized (BldA) [Moles/Vol] 0.93 mmol/L Low 1.10-1.33 [facility] Comment on above: Performed By: #### 9 3685-6 ####JASON Carrasquillo ([id number])[facility] ([facility])[address] [place] [address] Chloride (BldA) [Moles/Vol] 103 mmol/L Normal 98-107 [facility] Comment on above: Performed By: #### 9 3685-6 ####JASON Carrasquillo ([id number])[facility] ([facility])[address] [place], [place] [address] CO2 (Bld) [Partial pressure] 45 mm Hg High 38-42 [facility] Comment on above: Performed By: #### 9 3685-6 ####JASON Carrasquillo ([id number])[facility] ([facility])[address] [place] [address] Glucose [Mass/Vol] 196 mg/dL High 74-99 [facility] Comment on above: Performed By: #### 9 3685-6 ####JASON Carrasquillo ([id number])[facility] ([facility])[address] [place] [address] HCO3 (Bld) [Moles/Vol] 24.8 mmol/L Normal 22.0-26.0 [facility] Comment on above: Performed By: #### 9 3685-6 ####JASON Carrasquillo ([id number])[facility] ([facility])[address] [place] [address] Hematocrit Est (Bld) [Volume fraction] 23.0 % Low 41.0-52.0 [facility] Comment on above: Performed By: #### 9 3685-6 ####JASON Carrasquillo ([id number])[facility] ([facility])[address] [place] [address] Hemoglobin (Bld) [Mass/Vol] 7.8 g/dL Low 13.5-17.5 [facility] Comment on above: Performed By: #### 9 3685-6 ####JASON Carrasquillo ([id number])[facility] ([facility])[address] [place] [address] Inhaled oxygen concentration 21 % Normal [facility] Comment on above: Performed By: #### 9 3685-6 ####JASON Carrasquillo ([id number])[facility] ([facility])[id number] [place] [address] Lactate (BldA) [Moles/Vol] 1.1 mmol/L Normal 0.4-2.0 [facility] Comment on above: Performed By: #### 9 9885-6 ####JASON Carrasquillo ([id number])[facility] ([facility])[address] [place] [address] Oxygen (Bld) [Partial pressure] 116 mm Hg High 85-95 [facility] Comment on above: Performed By: #### 9 8115-6 ####JASON Carrasquillo ([id number])[facility] ([facility])[address] [place] [address] Oxyhemoglobin (BldA) [Mass fraction] 97.6 % Normal 94.0-98.0 [facility] Comment on above: Performed By: #### 9 2035-6 ####JASON Carrasquillo ([id number])[facility] ([facility])[address] [place] [address] pH (Bld) 7.35 [pH] Low 7.38-7.42 [facility] Comment on above: Performed By: #### 9 3685-6 ####JASON Carrasquillo ([id number])[facility] ([facility])[address] [place] [address] Potassium (BldA) [Moles/Vol] 3.2 mmol/L Low 3.5-5.3 [facility] Comment on above: Performed By: #### 9 3685-6 ####JASON Carrasquillo ([id number])[facility] ([facility])[address] [place] [address] Sodium (BldA) [Moles/Vol] 136 mmol/L Normal 136-145 [facility] Comment on above: Performed By: #### 9 3685-6 ####JASON Carrasquillo ([id number])[facility] ([facility])[address] [place] [address] Anion gap 4 (BldA) [Moles/Vol] [address] [facility] Base excess Calc (Bld) [Moles/Vol] 3.6 mmol/L High -2.0 - 3.0 mmol/L [facility] Calcium.ionized (BldA) [Moles/Vol] 0.99 mmol/L Low 1.10 - 1.33 mmol/L [facility] Chloride (BldA) [Moles/Vol] 100 mmol/L 98 - 107 mmol/L [facility] CO2 (Bld) [Partial pressure] 51 mm[Hg] High [facility] Glucose [Mass/Vol] 158 mg/dL High 74 - 99 mg/dL [facility] HCO3 (Bld) [Moles/Vol] 29.5 mmol/L High 22.0 - 26.0 mmol/L [facility] Hematocrit Est (Bld) [Volume fraction] 27 % Low 41.0 - 52.0 % [facility] Hemoglobin (Bld) [Mass/Vol] 8.9 g/dL Low 13.5 - 17.5 g/dL [facility] Interpretation and review of laboratory results Abnormal [facility] Lactate (BldA) [Moles/Vol] 0.8 mmol/L 0.4 - 2.0 mmol/L [facility] Oxygen (Bld) [Partial pressure] 536 mm[Hg] High [facility] Oxyhemoglobin (BldA) [Mass fraction] 98.2 % High 94.0 - 98.0 % [facility] pH (Bld) 7.37 [pH] Low 7.38 - 7.[address] [facility] Potassium (BldA) [Moles/Vol] 3.4 mmol/L Low 3.5 - 5.3 mmol/L [facility] Sodium (BldA) [Moles/Vol] 133 mmol/L Low 136 - 145 mmol/L [facility] Anion gap 4 (BldA) [Moles/Vol] 7 mmo/L Low 10-25 [facility] Comment on above: Performed By: #### 9 3685-6 ####JASON Carrasquillo ([id number])[facility] ([facility])[address] [place] [address] Base excess Calc (Bld) [Moles/Vol] 3.6 mmol/L High -2.0-3.0 [facility] Comment on above: Performed By: #### 9 3685-6 ####JASON Carrasquillo ([id number])[facility] ([facility])[address] [place] [address] Calcium.ionized (BldA) [Moles/Vol] 0.99 mmol/L Low 1.10-1.33 [facility] Comment on above: Performed By: #### 9 3685-6 ####JASON Carrasquillo ([id number])[facility] ([facility])[id number] [place] [address] Chloride (BldA) [Moles/Vol] 100 mmol/L Normal 98-107 [facility] Comment on above: Performed By: #### 9 3685-6 ####JASON Carrasquillo ([id number])[facility] ([facility])[address] [place] [address] CO2 (Bld) [Partial pressure] 51 mm Hg High 38-42 [facility] Comment on above: Performed By: #### 9 3685-6 ####JASON Carrasquillo ([id number])[facility] ([facility])[address] [place] [address] Glucose [Mass/Vol] 158 mg/dL High 74-99 [facility] Comment on above: Performed By: #### 9 3685-6 ####JASON Carrasquillo ([id number])[facility] ([facility])[address] [place] [address] HCO3 (Bld) [Moles/Vol] 29.5 mmol/L High 22.0-26.0 [facility] Comment on above: Performed By: #### 9 3685-6 ####JASON Carrasquillo ([id number])[facility] ([facility])[address] [place] [address] Hematocrit Est (Bld) [Volume fraction] 27.0 % Low 41.0-52.0 [facility] Comment on above: Performed By: #### 9 5015-6 ####JASON Carrasquillo ([id number])[facility] ([facility])[address] [place] [address] Hemoglobin (Bld) [Mass/Vol] 8.9 g/dL Low 13.5-17.5 [facility] Comment on above: Performed By: #### 9 3685-6 ####JASON Carrasquillo ([id number])[facility] ([facility])[address] [place] [address] Lactate (BldA) [Moles/Vol] 0.8 mmol/L Normal 0.4-2.0 [facility] Comment on above: Performed By: #### 9 7605-6 ####JASON Carrasquillo ([id number])[facility] ([facility])[address] [place] [address] Oxygen (Bld) [Partial pressure] 536 mm Hg High 85-95 [facility] Comment on above: Performed By: #### 9 0065-6 ####JASON Carrasquillo ([id number])[facility] ([facility])[address] [place] [address] Oxyhemoglobin (BldA) [Mass fraction] 98.2 % High 94.0-98.0 [facility] Comment on above: Performed By: #### 9 3685-6 ####JASON Carrasquillo ([id number])[facility] ([facility])[address] [place] [address] pH (Bld) 7.37 [pH] Low 7.38-7.42 [facility] Comment on above: Performed By: #### 9 3685-6 ####JASON Carrasquillo ([id number])[facility] ([facility])[address] [place] [address] Potassium (BldA) [Moles/Vol] 3.4 mmol/L Low 3.5-5.3 [facility] Comment on above: Performed By: #### 9 3685-6 ####JASON Carrasquillo ([id number])[facility] ([facility])[address] [place] [address] Sodium (BldA) [Moles/Vol] 133 mmol/L Low 136-145 [facility] Comment on above: Performed By: #### 9 3685-6 ####JASON Carrasquillo ([id number])[facility] ([facility])[id number] [place] [address] Anion gap 4 (BldA) [Moles/Vol] [address] [facility] Base excess Calc (Bld) [Moles/Vol] 3.5 mmol/L High -2.0 - 3.0 mmol/L [facility] Calcium.ionized (BldA) [Moles/Vol] 0.97 mmol/L Low 1.10 - 1.33 mmol/L [facility] Chloride (BldA) [Moles/Vol] 101 mmol/L 98 - 107 mmol/L [facility] CO2 (Bld) [Partial pressure] 40 mm[Hg] [facility] Glucose [Mass/Vol] 113 mg/dL High 74 - 99 mg/dL [facility] HCO3 (Bld) [Moles/Vol] 27.8 mmol/L High 22.0 - 26.0 mmol/L [facility] Hematocrit Est (Bld) [Volume fraction] 23 % Low 41.0 - 52.0 % [facility] Hemoglobin (Bld) [Mass/Vol] 7.5 g/dL Low 13.5 - 17.5 g/dL [facility] Inhaled oxygen concentration 50 % [facility] Interpretation and review of laboratory results Abnormal [facility] Lactate (BldA) [Moles/Vol] 1 mmol/L 0.4 - 2.0 mmol/L [facility] Oxygen (Bld) [Partial pressure] 214 mm[Hg] High [facility] Oxyhemoglobin (BldA) [Mass fraction] 98.2 % High 94.0 - 98.0 % [facility] pH (Bld) 7.45 [pH] High 7.38 - 7.[address] [facility] Potassium (BldA) [Moles/Vol] 3.3 mmol/L Low 3.5 - 5.3 mmol/L [facility] Sodium (BldA) [Moles/Vol] 133 mmol/L Low 136 - 145 mmol/L [facility] Anion gap 4 (BldA) [Moles/Vol] 8 mmo/L Low 10-25 [facility] Comment on above: Performed By: #### 9 3685-6 ####JASON Carrasquillo ([id number])[facility] ([facility])[address] [place] [address] Base excess Calc (Bld) [Moles/Vol] 3.5 mmol/L High -2.0-3.0 [facility] Comment on above: Performed By: #### 9 3685-6 ####JASON Carrasquillo ([id number])[facility] ([facility])[address] [place] [address] Calcium.ionized (BldA) [Moles/Vol] 0.97 mmol/L Low 1.10-1.33 [facility] Comment on above: Performed By: #### 9 3685-6 ####JASON Carrasquillo ([id number])[facility] ([facility])[address] [place] [address] Chloride (BldA) [Moles/Vol] 101 mmol/L Normal 98-107 [facility] Comment on above: Performed By: #### 9 3685-6 ####JASON Carrasquillo ([id number])[facility] ([facility])[address] [place] [address] CO2 (Bld) [Partial pressure] 40 mm Hg Normal 38-42 [facility] Comment on above: Performed By: #### 9 3685-6 ####JASON Carrasquillo ([id number])[facility] ([facility])[address] [place] [address] Glucose [Mass/Vol] 113 mg/dL High 74-99 [facility] Comment on above: Performed By: #### 9 3685-6 ####JASON Carrasquillo ([id number])[facility] ([facility])[address] [place] [address] HCO3 (Bld) [Moles/Vol] 27.8 mmol/L High 22.0-26.0 [facility] Comment on above: Performed By: #### 9 3685-6 ####JASON Carrasquillo ([id number])[facility] ([facility])[address] [place] [address] Hematocrit Est (Bld) [Volume fraction] 23.0 % Low 41.0-52.0 [facility] Comment on above: Performed By: #### 9 3685-6 ####JASON Carrasquillo ([id number])[facility] ([facility])[address] [place] [address] Hemoglobin (Bld) [Mass/Vol] 7.5 g/dL Low 13.5-17.5 [facility] Comment on above: Performed By: #### 9 3685-6 ####JASON Carrasquillo ([id number])[facility] ([facility])[address] [place] [address] Inhaled oxygen concentration 50 % Normal [facility] Comment on above: Performed By: #### 9 3685-6 ####JASON Carrasquillo ([id number])[facility] ([facility])[address] [place] [address] Lactate (BldA) [Moles/Vol] 1.0 mmol/L Normal 0.4-2.0 [facility] Comment on above: Performed By: #### 9 3685-6 ####JASON Carrasquillo ([id number])[facility] ([facility])[address] [place] [address] Oxygen (Bld) [Partial pressure] 214 mm Hg High 85-95 [facility] Comment on above: Performed By: #### 9 3685-6 ####JASON Carrasquillo ([id number])[facility] ([facility])[address] [place] [address] Oxyhemoglobin (BldA) [Mass fraction] 98.2 % High 94.0-98.0 [facility] Comment on above: Performed By: #### 9 3685-6 ####JASON Carrasquillo ([id number])[facility] ([facility])[address] [place] [address] pH (Bld) 7.45 [pH] High 7.38-7.42 [facility] Comment on above: Performed By: #### 9 3685-6 ####JASON Carrasquillo ([id number])[facility] ([facility])[address] [place] [address] Potassium (BldA) [Moles/Vol] 3.3 mmol/L Low 3.5-5.3 [facility] Comment on above: Performed By: #### 9 3685-6 ####JASON Carrasquillo ([id number])[facility] ([facility])[address] [place] [address] Sodium (BldA) [Moles/Vol] 133 mmol/L Low 136-145 [facility] Comment on above: Performed By: #### 9 3685-6 ####JASON Carrasquillo ([id number])[facility] ([facility])[address] [place] [address] Anion gap 4 (BldA) [Moles/Vol] [address] [facility] Base excess Calc (Bld) [Moles/Vol] 11.2 mmol/L High -2.0 - 3.0 mmol/L [facility] Calcium.ionized (BldA) [Moles/Vol] 1.05 mmol/L Low 1.10 - 1.33 mmol/L [facility] Chloride (BldA) [Moles/Vol] 100 mmol/L 98 - 107 mmol/L [facility] CO2 (Bld) [Partial pressure] 47 mm[Hg] High [facility] Glucose [Mass/Vol] 99 mg/dL 74 - 99 mg/[facility] HCO3 (Bld) [Moles/Vol] 35.8 mmol/L High 22.0 - 26.0 mmol/L [facility] Hematocrit Est (Bld) [Volume fraction] 27 % Low 41.0 - 52.0 % [facility] Hemoglobin (Bld) [Mass/Vol] 8.9 g/dL Low 13.5 - 17.5 g/dL [facility] Inhaled oxygen concentration 50 % [facility] Interpretation and review of laboratory results Abnormal [facility] Lactate (BldA) [Moles/Vol] 0.5 mmol/L 0.4 - 2.0 mmol/L [facility] Oxygen (Bld) [Partial pressure] 236 mm[Hg] High [facility] Oxyhemoglobin (BldA) [Mass fraction] 97.8 % 94.0 - 98.0 % [facility] pH (Bld) 7.49 [pH] High 7.38 - 7.[address] [facility] Potassium (BldA) [Moles/Vol] 3 mmol/L Low 3.5 - 5.3 mmol/L [facility] Sodium (BldA) [Moles/Vol] 136 mmol/L 136 - 145 mmol/L [facility] Anion gap 4 (BldA) [Moles/Vol] 3 mmo/L Low 10-25 [facility] Comment on above: Performed By: #### 9 3685-6 ####JASON Carrasquillo ([id number])[facility] ([facility])[address] [place] [address] Base excess Calc (Bld) [Moles/Vol] 11.2 mmol/L High -2.0-3.0 [facility] Comment on above: Performed By: #### 9 3685-6 ####JAOSN Carrasquillo ([id number])[facility] ([facility])[address] [place] [address] Calcium.ionized (BldA) [Moles/Vol] 1.05 mmol/L Low 1.10-1.33 [facility] Comment on above: Performed By: #### 9 3685-6 ####JASON Carrasquillo ([id number])[facility] ([facility])[address] [place] [address] Chloride (BldA) [Moles/Vol] 100 mmol/L Normal 98-107 [facility] Comment on above: Performed By: #### 9 3685-6 ####JASON Carrasquillo ([id number])[facility] ([facility])[address]276 [place] [address] CO2 (Bld) [Partial pressure] 47 mm Hg High 38-42 [facility] Comment on above: Performed By: #### 9 3685-6 ####JASON Carrasquillo ([id number])[facility] ([facility])[address]74 [place] [address] Glucose [Mass/Vol] 99 mg/dL Normal 74-99 [facility] Comment on above: Performed By: #### 9 3685-6 ####JASON Carrasquillo ([id number])[facility] ([facility])[address]35 [place] [address] HCO3 (Bld) [Moles/Vol] 35.8 mmol/L High 22.0-26.0 [facility] Comment on above: Performed By: #### 9 3685-6 ####JASON Carrasquillo ([id number])[facility] ([facility])[address] [place] [address] Hematocrit Est (Bld) [Volume fraction] 27.0 % Low 41.0-52.0 [facility] Comment on above: Performed By: #### 9 8475-6 ####JASON Carrasquillo ([id number])[facility] ([facility])[address] [place] [address] Hemoglobin (Bld) [Mass/Vol] 8.9 g/dL Low 13.5-17.5 [facility] Comment on above: Performed By: #### 9 3685-6 ####JASON Carrasquillo ([id number])[facility] ([facility])[address] [place] [address] Inhaled oxygen concentration 50 % Normal [facility] Comment on above: Performed By: #### 9 3685-6 ####JASON Carrasquillo ([id number])[facility] ([facility])[address] [place] [address] Lactate (BldA) [Moles/Vol] 0.5 mmol/L Normal 0.4-2.0 [facility] Comment on above: Performed By: #### 9 1755-6 ####JASON Carrasquillo ([id number])[facility] ([facility])[address] [place] [address] Oxygen (Bld) [Partial pressure] 236 mm Hg High 85-95 [facility] Comment on above: Performed By: #### 9 9355-6 ####JASON Carrasquillo ([id number])[facility] ([facility])[address] [place] [address] Oxyhemoglobin (BldA) [Mass fraction] 97.8 % Normal 94.0-98.0 [facility] Comment on above: Performed By: #### 9 6705-6 ####JASON Carrasquillo ([id number])[facility] ([facility])[address] [place] [address] pH (Bld) 7.49 [pH] High 7.38-7.42 [facility] Comment on above: Performed By: #### 9 6995-6 ####JASON Carrasquillo ([id number])[facility] ([facility])[address] [place] [address] Potassium (BldA) [Moles/Vol] 3.0 mmol/L Low 3.5-5.3 [facility] Comment on above: Performed By: #### 9 3685-6 ####JASON Carrasquillo ([id number])[facility] ([facility])[address] [place] [address] Sodium (BldA) [Moles/Vol] 136 mmol/L Normal 136-145 [facility] Comment on above: Performed By: #### 9 3685-6 ####JASON Carrasquillo ([id number])[facility] ([facility])[address] [place] [address] Gas panel (BldV)on 5 Anion gap 4 (BldV) [Moles/Vol] 5 mmol/L Low 10.0 - 25.0 mmol/L [facility] Base excess Calc (BldV) [Moles/Vol] 10.8 mmol/L High -2.0 - 3.0 mmol/L [facility] Calcium.ionized (BldV) [Moles/Vol] 1 mmol/L Low 1.10 - 1.33 mmol/L [facility] Chloride (BldV) [Moles/Vol] 97 mmol/L Low 98 - 107 mmol/L [facility] CO2 (BldV) [Partial pressure] 54 mm[Hg] High [facility] Glucose [Mass/Vol] 126 mg/dL High 74 - 99 mg/dL [facility] HCO3 (Bld) [Moles/Vol] 36.7 mmol/L High 22.0 - 26.0 mmol/L [facility] Hematocrit Est (Bld) [Volume fraction] 34 % Low 41.0 - 52.0 % [facility] Hemoglobin (Bld) [Mass/Vol] 11.2 g/dL Low 13.5 - 17.5 g/dL [facility] Inhaled oxygen concentration 21 % [facility] Lactate (BldV) [Moles/Vol] 1.1 mmol/L 0.4 - 2.0 mmol/L [facility] Oxygen (BldV) [Partial pressure] 41 mm[Hg] [facility] Oxygen saturation in Venous blood 70 % 45 - 75 % [facility] Oxyhemoglobin (BldV) [Mass fraction] 69.2 % 45.0 - 75.0 % [facility] pH (BldV) 7.44 [pH] High 7.33 - 7.[address] [facility] Potassium (BldV) [Moles/Vol] 3.9 mmol/L 3.5 - 5.3 mmol/L [facility] Sodium (BldV) [Moles/Vol] 135 mmol/L Low 136 - 145 mmol/L [facility] Anion gap 4 (BldV) [Moles/Vol] 5.0 mmol/L Low 10.0-25.0 [facility] Comment on above: Performed By: #### 2 4339-4 ####JASON Carrasquillo ([id number])[facility] ([facility])[id number] [place] [address] Base excess Calc (BldV) [Moles/Vol] 10.8 mmol/L High -2.0-3.0 [facility] Comment on above: Performed By: #### 2 4339-4 ####JASON Carrasquillo ([id number])[facility] ([facility])[id number] [place] [address] Calcium.ionized (BldV) [Moles/Vol] 1.00 mmol/L Low 1.10-1.33 [facility] Comment on above: Performed By: #### 2 4339-4 ####JASON Carrasquillo ([id number])[facility] ([facility])[address] [place] [address] Chloride (BldV) [Moles/Vol] 97 mmol/L Low 98-107 [facility] Comment on above: Performed By: #### 2 4339-4 ####JASON Carrasquillo ([id number])[facility] ([facility])[address] [place] [address] CO2 (BldV) [Partial pressure] 54 mm Hg High 41-51 [facility] Comment on above: Performed By: #### 2 4339-4 ####JASON Carrasquillo ([id number])[facility] ([facility])[address] [place] [address] Glucose [Mass/Vol] 126 mg/dL High 74-99 [facility] Comment on above: Performed By: #### 2 4339-4 ####JASON Carrasquillo ([id number])[facility] ([facility])[id number] [place] [address] HCO3 (Bld) [Moles/Vol] 36.7 mmol/L High 22.0-26.0 [facility] Comment on above: Performed By: #### 2 4339-4 ####JASON Carrasquillo ([id number])[facility] ([facility])[id number] [place] [address] Hematocrit Est (Bld) [Volume fraction] 34.0 % Low 41.0-52.0 [facility] Comment on above: Performed By: #### 2 4339-4 ####JASON Carrasquillo ([id number])[facility] ([facility])[address] [place] [address] 83420 Hemoglobin (Bld) [Mass/Vol] 11.2 g/dL Low 13.5-17.5 [facility] Comment on above: Performed By: #### 2 4339-4 ####JASON Carrasquillo ([id number])[facility] ([facility])[id number] [place] [address] 94069 Inhaled oxygen concentration 21 % Normal [facility] Comment on above: Performed By: #### 2 4339-4 ####JASON Carrasquillo ([id number])[facility] ([facility])[address] [place] [address] 07177 Lactate (BldV) [Moles/Vol] 1.1 mmol/L Normal 0.4-2.0 [facility] Comment on above: Performed By: #### 2 4339-4 ####JASON Carrasquillo ([id number])[facility] ([facility])[address] [place] [address] Oxygen (BldV) [Partial pressure] 41 mm Hg Normal 35-45 [facility] Comment on above: Performed By: #### 2 4339-4 ####JASON Carrasquillo ([id number])[facility] ([facility])[address] [place] [address] Oxygen saturation in Venous blood 70 % Normal 45-75 [facility] Comment on above: Performed By: #### 2 4339-4 ####JASON Carrasquillo ([id number])[facility] ([facility])[address] [place] [address] 95929 Oxyhemoglobin (BldV) [Mass fraction] 69.2 % Normal 45.0-75.0 [facility] Comment on above: Performed By: #### 2 4339-4 ####JASON Carrasquillo ([id number])[facility] ([facility])[address] [place] [address] 49900 pH (BldV) 7.44 [pH] High 7.33-7.43 [facility] Comment on above: Performed By: #### 2 4339-4 ####JASON Carrasquillo ([id number])[facility] ([facility])[id number] [place] [address] 07866 Potassium (BldV) [Moles/Vol] 3.9 mmol/L Normal 3.5-5.3 [facility] Comment on above: Performed By: #### 2 4339-4 ####JASON Carrasquillo ([id number])[facility] ([facility])[address] [place] [address] 00120 Sodium (BldV) [Moles/Vol] 135 mmol/L Low 136-145 [facility] Comment on above: Performed By: #### 2 4339-4 ####JASON Carrasquillo ([id number])[facility] ([facility])[id number] [place] [address] 53687 Glucose Test strip manual (B ld) [Mass/Vol]on 10-15-2024 Glucose [Mass/Vol] 172 mg/dL High 74 - 99 mg/dL [facility] Interpretation and review of laboratory results Abnormal [facility] Glucose [Mass/Vol] 172 mg/dL High 74-99 [facility] Comment on above: Performed By: #### 2 341-6 ####JASON Carrasquillo ([id number])[facility] ([facility])[address] [place] [address] HBV core Ab Ql (S)on 025 Interpretation and review of laboratory results Normal [facility] HBV surface Ab Qn (S)on Interpretation and review of laboratory results Abnormal [facility] HBV surface Ag IA Qlon 10-15 Interpretation and review of laboratory results Normal [facility] HCV RNA panel SAQIB+probeon HCV RNA RESULT Not detected Normal Not detected [facility] Comment on above: Order Comment: Repor table Range: 15-100,000,000 IU/mL.The sophie HCV is an in vitro nucleic acid amplification test for both the detection and quantitation of hepatitis C virus (HCV) RNA, in human EDTA plasma or serum, of HCV antibody positive or HCV-infected individuals on the so[employer]pie [employer]/8800 Systems. Dual probes are used to detect and quantify, but notdiscriminate HCV genotypes 1-6. Though rare, mutations within the highly conserved regions of a viral genome covered by sophie HCV may affect primer and/or probe binding resulting in the under-quantitation of virus or failure to detect the presence of virus.The analytical quantification range of this assay has been determined to be 15 to 100,000,000 IU/ml in plasma. If the assay DETECTED the presence of the virus but was not able to accurately quantify the number of copies, the test result will be reported as <15 Detected or >100,000,000 Detected.The sophie HCV is intended for use as an aid in the diagnosis of HCV infection in the following populations: individuals with antibody evidence of HCV with evidence of liver disease, individuals suspected to be actively infected with HCV antibody evidence, and individuals at risk for HCV infection with antibodies to HCV. Detection of HCV RNA indicates that the virus is replicating and therefore is evidence of active infection. The sophie HCV is intended for use as an aid in the management of HCV infected patients undergoing anti-viral therapy. The assay can be used to measure HCV RNA levels at baseline, during treatment, at the end of treatment, and at the end of follow up of treatment todetermine sustained or non-sustained viral response. The results must be interpreted within the context of all relevant clinical and laboratory findings.This test is approved by the [place] Food and Drug Administration, and its performance characteristics verified by the [facility] Laboratory, Department of Pathology, [facility]. Performed By: #### 5 0023-1 ####JASON Carrasquillo ([id number])[facility] ([facility])[address] [place] [address] HCV RNA, PCR LOG Normal [facility] Comment on above: Order Comment: Repor table Range: 15-100,000,000 IU/mL.The sophie HCV is an in vitro nucleic acid amplification test for both the detection and quantitation of hepatitis C virus (HCV) RNA, in human EDTA plasma or serum, of HCV antibody positive or HCV-infected individuals on the sophie [employer]/8800 Systems. Dual probes are used to detect and quantify, but notdiscriminate HCV genotypes 1-6. Though rare, mutations within the highly conserved regions of a viral genome covered by sophie HCV may affect primer and/or probe binding resulting in the under-quantitation of virus or failure to detect the presence of virus.The analytical quantification range of this assay has been determined to be 15 to 100,000,000 IU/ml in plasma. If the assay DETECTED the presence of the virus but was not able to accurately quantify the number of copies, the test result will be reported as <15 Detected or >100,000,000 Detected.The sophie HCV is intended for use as an aid in the diagnosis of HCV infection in the following populations: individuals with antibody evidence of HCV with evidence of liver disease, individuals suspected to be actively infected with HCV antibody evidence, and individuals at risk for HCV infection with antibodies to HCV. Detection of HCV RNA indicates that the virus is replicating and therefore is evidence of active infection. The sophie HCV is intended for use as an aid in the management of HCV infected patients undergoing anti-viral therapy. The assay can be used to measure HCV RNA levels at baseline, during treatment, at the end of treatment, and at the end of follow up of treatment todetermine sustained or non-sustained viral response. The results must be interpreted within the context of all relevant clinical and laboratory findings.This test is approved by the [place] Food and Drug Administration, and its performance characteristics verified by the [facility] Laboratory, Department of Pathology, [facility]. Result Comment: Not calculated Performed By: #### 5 0023-1 ####JASON Carrasquillo ([id number])[facility] ([facility])[address] [place], [place] [address] HIV 1+2 Ab+HIV1 p24 Agon HIV 1+2 Ab+HIV1 p24 Ag IA Ql Non-Reactive Normal Nonreactive [facility] Comment on above: Order Comment: HIV A g/Ab screen is performed using the [employer] HIV Ag/Ab Combo assay which detects the presence of HIV p24 antigen as well as antibodies to HIV-1 (Group M and O) and HIV-2.No laboratory evidence of HIV infection. If acute HIV infection is suspected, consider testing for HIV RNA by PCR (viral load). Performed By: #### 5 6888-1 ####JASON Carrasquillo ([id number])[facility] ([facility])[address] [place], [place] [address] HIV 1+2 Ab+HIV1 p24 Ag IA Ql on 10-15-[address] [facility] HIV 1/2 Antigen/Antibody Scr een with Reflex to Confirmationon 10-15-2024 HIV 1+2 Ab+HIV1 p24 Ag IA Ql Non-Reactive Nonreactive [facility] HbA1c (Bld)on 10-15-2024 HbA1c (Bld) [Mass fraction] 6.2 % Abnormal 4.8 - 5.9 % [facility] Comment on above: [employer] Hepatic function 2000 panelo n 10-15-2024 Albumin BCP dye [Mass/Vol] 4.4 g/dL 3.4 - 5.0 g/dL [facility] ALP [Catalytic activity/Vol] 81 U/L 33 - 120 U/L [facility] ALT With P-5'-P [Catalytic activity/Vol] 14 U/L 10 - 52 U/L [facility] AST With P-5'-P [Catalytic activity/Vol] 30 U/L 9 - 39 U/L [facility] Bilirubin [Mass/Vol] 0.8 mg/dL 0.0 - 1 .2 mg/dL [facility] Bilirubin.direct [Mass/Vol] 0.2 mg/dL 0.0 - 0.3 mg/dL [facility] Interpretation and review of laboratory results Normal [facility] Protein [Mass/Vol] 7.3 g/dL 6.4 - 8.2 g/dL Un [facility] Albumin BCP dye [Mass/Vol] 4.4 g/dL Normal 3.4-5.0 [facility] Comment on above: Performed By: #### 2 4325-3 ####JASON Carrasquillo ([id number])[facility] ([facility])[address] [place] [address] ALP [Catalytic activity/Vol] 81 U/L Normal 33-120 [facility] Comment on above: Performed By: #### 2 4325-3 ####JASON Carrasquillo ([id number])[facility] ([facility])[address] [place] [address] ALT With P-5'-P [Catalytic activity/Vol] 14 U/L Normal 10-52 [facility] Comment on above: Result Comment: Christina ents treated with Sulfasalazine may generate falsely decreased results for ALT. Performed By: #### 2 4325-3 ####JASON Carrasquillo ([id number])[facility] ([facility])[address] [place] [address] AST With P-5'-P [Catalytic activity/Vol] 30 U/L Normal 9-39 [facility] Comment on above: Result Comment: MILD HEMOLYSIS DETECTED. The result may be falsely elevated due to hemolysis or other interferents. Clinical correlation is recommended. Repeat testing may be considered. Performed By: #### 2 4325-3 ####JASON Carrasquillo ([id number])[facility] ([facility])[address] [place] [address] Bilirubin [Mass/Vol] 0.8 mg/dL Normal 0.0-1.2 [facility] Comment on above: Performed By: #### 2 4325-3 ####JASON Carrasquillo ([id number])[facility] ([facility])[address] [place] [address] Bilirubin.direct [Mass/Vol] 0.2 mg/dL Normal 0.0-0.3 [facility] Comment on above: Result Comment: MILD HEMOLYSIS DETECTED. The result may be falsely decreased due to hemolysis or other interferents. Clinical correlation is recommended. Repeat testing may be considered. Performed By: #### 2 4325-3 ####JASON Carrasquillo ([id number])[facility] ([facility])[id number] [place] [address] 09649 Protein [Mass/Vol] 7.3 g/dL Normal 6.4-8.2 [facility] Comment on above: Performed By: #### 2 4325-3 ####JASON Carrasquillo ([id number])[facility] ([facility])[address] [place] [address] 09079 Hepatitis B Core Antibody, T otalon 10-15-2024 HBV core Ab Ql (S) Non-Reactive Nonreactive [facility] Hepatitis B Surface Antibody on 10-15-2024 HBV surface Ab Qn (S) 28 High NINF [facility] Hepatitis B Surface Antigeno n 10-15-2024 HBV surface Ag IA Ql Non-Reactive Nonreactive [facility] Hepatitis B virus core Abon 10-15-2024 HBV core Ab Ql (S) Non-Reactive Normal Nonreactive [facility] Comment on above: Performed By: #### 1 6933-4 ####JASON Carrasquillo ([id number])[facility] ([facility])[address] [place] [address] 19156 Hepatitis B virus surface Ab on 10-15-2024 HBV surface Ab Qn (S) 28.0 mIU/mL High <10.0 [facility] Comment on above: Result Comment: Inte rpretive Criteria: <10 mIU/mL Nonreactive >=10 mIU/mL ReactiveBiotin interference may cause falsely decreased results. Patients taking a Biotin dose of up to 5 mg/day should refrain from taking Biotin for 24 hours before sample collection. Providers may contact their local laboratory for further information. Performed By: #### 1 6935-9 ####JASON Carrasquillo ([id number])[facility] ([facility])[address] [place] [address] Hepatitis B virus surface Ag on 10-15-2024 HBV surface Ag IA Ql Non-Reactive Normal Nonreactive [facility] Comment on above: Result Comment: Biot in interference may cause falsely decreased results. Patients taking a Biotin dose of up to 5 mg/day should refrain from taking Biotin for 24 hours before sample collection. Providers may contact their local laboratory forfurther information. Performed By: #### 5 196-1 ####JASON Carrasquillo ([id number])[facility] ([facility])[address] [place], [place] [address] Hepatitis C Antibodyon 10-15 HCV Ab Ql (S) Non-Reactive Nonreactive [facility] Hepatitis C virus Abon 10-15 HCV Ab Ql (S) Non-Reactive Normal Nonreactive [facility] Comment on above: Result Comment: Resu lts from patients taking biotin supplements or receiving high-dose biotin therapy should be interpreted with caution due to possible interference with this test. Providers may contact their local laboratory for further information. Performed By: #### 1 6128-1 ####JASON Carrasquillo ([id number])[facility] ([facility])[address] [place] [address] No Panel Informationon 10-15 Interpretation and review of laboratory results Normal [facility] Interpretation and review of laboratory results Abnormal [facility] PT and aPTT panel Coag (PPP) on 10-15-2024 aPTT Coag (PPP) [Time] [address] [facility] INR Coag (PPP) [Relative time] 1 {INR} 0.9 - 1.[address] [facility] Interpretation and review of laboratory results Normal [facility] PT Coag (PPP) [Time] 11.1 s [facility] aPTT Coag (PPP) [Time] 27 s Normal 26-36 [facility] Comment on above: Order Comment: The A PTT is no longer used for monitoring Unfractionated Heparin Therapy. For monitoring Heparin Therapy, use the Heparin Assay. Performed By: #### 3 4529-8 ####JASON Carrasquillo ([id number])[facility] ([facility])[id number] [place] [address] 83073 INR Coag (PPP) [Relative time] 1.0 Normal 0.9-1.1 [facility] Comment on above: Order Comment: The A PTT is no longer used for monitoring Unfractionated Heparin Therapy. For monitoring Heparin Therapy, use the Heparin Assay. Performed By: #### 3 4529-8 ####JASON Carrasquillo ([id number])[facility] ([facility])[address] [place] [address] PT Coag (PPP) [Time] 11.1 s Normal 9.8-12.4 [facility] Comment on above: Order Comment: The A PTT is no longer used for monitoring Unfractionated Heparin Therapy. For monitoring Heparin Therapy, use the Heparin Assay. Performed By: #### 3 4529-8 ####JASON Carrasquillo ([id number])[facility] ([facility])[address] [place] [address] 69607 Phosphateon 10-15-2024 Phosphate [Mass/Vol] 3.3 mg/dL Normal 2.5-4.9 [facility] Comment on above: Result Comment: MILD HEMOLYSIS DETECTED. The result may be falsely elevated due to hemolysis or other interferents. Clinical correlation is recommended. Repeat testing may be considered. Performed By: #### 2 777-1 ####JASON Carrasquillo ([id number])[facility] ([facility])[id number] [place] [address] 15641 Phosphate [Mass/Vol]on 10-15 Interpretation and review of laboratory results Normal [facility] Phosphoruson 10-15-2024 Phosphate [Mass/Vol] 3.3 mg/dL 2.5 - 4 .9 mg/dL [facility] Prepare Platelets: 1 Unitson 10-15-2024 Blood Expiration Date 10/16/2024 11:59:00 PM EDT [facility] Dispense Status TR [facility] PRODUCT BLOOD TYPE 7300 [facility] PRODUCT CODE [id number] [facility] Unit ABO B [facility] Unit Number [id number] [facility] Unit RH Positive [facility] UNIT VOLUME [address] [facility] Renal function 2000 panelon 10-15-2024 Albumin BCP dye [Mass/Vol] 3.1 g/dL Low 3.4 - 5.0 g/dL [facility] Anion gap [Moles/Vol] 13 mmol/L 10 - 20 mmol/L [facility] Calcium [Mass/Vol] 7.1 mg/dL Low 8.6 - 10. 6 mg/dL [facility] Chloride [Moles/Vol] 99 mmol/L 98 - 10 7 mmol/L [facility] CO2 [Moles/Vol] 28 mmol/L 21 - 32 mmol/L [facility] Creatinine [Mass/Vol] 5.95 mg/dL High 0.50 - 1.30 mg/dL [facility] GFR/1.73 sq M.predicted among non-blacks MDRD (S/P/Bld) [Vol rate/Area] 10 mL/min/{1.73_m2} Low - PINF [facility] Glucose [Mass/Vol] 166 mg/dL High 74 - 99 mg/dL [facility] Interpretation and review of laboratory results Abnormal [facility] Phosphate [Mass/Vol] 3.2 mg/dL 2.5 - 4 .9 mg/dL [facility] Potassium [Moles/Vol] 3.3 mmol/L Low 3.5 - 5.3 mmol/L [facility] Sodium [Moles/Vol] 137 mmol/L 136 - 145 mmol/L [facility] Urea nitrogen [Mass/Vol] 27 mg/dL High 6 - 23 mg/dL [facility] Albumin BCP dye [Mass/Vol] 3.1 g/dL Low 3.4-5.0 [facility] Comment on above: Order Comment: After arrival in PACU unless already done in the operating room. Performed By: #### 2 4362-6 ####JASON Carrasquillo ([id number])[facility] ([facility])[address] [place] [address] Anion gap [Moles/Vol] 13 mmol/L Normal 10-20 [facility] Comment on above: Order Comment: After arrival in PACU unless already done in the operating room. Performed By: #### 2 4362-6 ####JASON Carrasquillo ([id number])[facility] ([facility])[address] [place] [address] Calcium [Mass/Vol] 7.1 mg/dL Low 8.6-10.6 [facility] Comment on above: Order Comment: After arrival in PACU unless already done in the operating room. Performed By: #### 2 4362-6 ####JASON Carrasquillo ([id number])[facility] ([facility])[address] [place] [address] Chloride [Moles/Vol] 99 mmol/L Normal 98-107 [facility] Comment on above: Order Comment: After arrival in PACU unless already done in the operating room. Performed By: #### 2 4362-6 ####JASON Carrasquillo ([id number])[facility] ([facility])[address] [place] [address] CO2 [Moles/Vol] 28 mmol/L Normal 21-32 [facility] Comment on above: Order Comment: After arrival in PACU unless already done in the operating room. Performed By: #### 2 4362-6 ####JASON Carrasquillo ([id number])[facility] ([facility])[address] [place] [address] Creatinine [Mass/Vol] 5.95 mg/dL High 0.50-1.30 [facility] Comment on above: Order Comment: After arrival in PACU unless already done in the operating room. Performed By: #### 2 4362-6 ####JASON Carrasquillo ([id number])[facility] ([facility])[address] [place] [address] Glomerular filtration rate/1.73 sq M.predicted 10 mL/min/1.73m*2 Low >60 [facility] Comment on above: Order Comment: After arrival in PACU unless already done in the operating room. Result Comment: Calc ulations of estimated GFR are performed using the 2020 CKD-EPI Study Refit equation without the race variable for the IDMS-Traceable creatinine methods.https://jasn.asnjournals.org/content/early// N.7124137395 Performed By: #### 2 4362-6 ####JASON Carrasquillo ([id number])[facility] ([facility])[address] [place] [address] Glucose [Mass/Vol] 166 mg/dL High 74-99 [facility] Comment on above: Order Comment: After arrival in PACU unless already done in the operating room. Performed By: #### 2 4362-6 ####JASON Carrasquillo ([id number])[facility] ([facility])[address] [place] [address] Phosphate [Mass/Vol] 3.2 mg/dL Normal 2.5-4.9 [facility] Comment on above: Order Comment: After arrival in PACU unless already done in the operating room. Performed By: #### 2 4362-6 ####JASON Carrasquillo ([id number])[facility] ([facility])[address] [place] [address] Potassium [Moles/Vol] 3.3 mmol/L Low 3.5-5.3 [facility] Comment on above: Order Comment: After arrival in PACU unless already done in the operating room. Performed By: #### 2 4362-6 ####JASON Carrasquillo ([id number])[facility] ([facility])[address] [place] [address] Sodium [Moles/Vol] 137 mmol/L Normal 136-145 [facility] Comment on above: Order Comment: After arrival in PACU unless already done in the operating room. Performed By: #### 2 4362-6 ####JASON Carrasquillo ([id number])[facility] ([facility])[address] [place] [id number] Urea nitrogen [Mass/Vol] 27 mg/dL High 6-23 [facility] Comment on above: Order Comment: After arrival in PACU unless already done in the operating room. Performed By: #### 2 4362-6 ####JASON Carrasquillo ([id number])[facility] ([facility])[address] [place] [address] US KIDNEY TRANSPLANTon 10-15 US KIDNEY TRANSPLANT Normal [facility] US for transplanted kidneyon 10-15-2024 Radiology Study observation (narrative) [facility] Work Phone: XR CHEST 1 VIEWon 10-15-2024 XR CHEST 1 VIEW Normal [facility] XR Chest Single viewon 10-[address] [facility] Work Phone: Radiology Study observation (narrative) [facility] Work Phone: XR Chest Single viewOrdered By: Stevie Stuart on 10-15-[address] [facility] Work Phone: HLA DNA TYPE PANELon 025 HLA RESULTS Charges for UNOS Don or HLA Typing Normal [facility] Center Comment on above: Order Comment: Test performed at:[facility] CenterHistocompatibility and Immunogenetics LaboratorySaint [facility]ph[facility], [address] [place] [address] Performed By: #### H CEM ####ANTHONY Dunbar ([id number]) HLA LAB ([facility])[address] [place] [address] HLA-A AND B AND C (class I) typing panel [facility] Comment on above: Order Comment: Test performed at:[facility], [address] [place] [address] Performed By: #### H LADNA ####ANTHONY OLIVEIRASPAN S ([id number]) HLA LAB (LA)16769 [place] [address] HLA-DP2 Ql (Bld/Tiss) Normal [facility] Comment on above: Order Comment: Test performed at:[facility] LaboratoryMarvinSt. Luke'S Jerome, [address] [place] [address] Performed By: #### H LADNA ####ANTHONY YAN S ([id number]) HLA LAB ([facility])[address]78 [facility], [facility]06 HLA-DQB1 High resolution Nom (Bld/Tiss) [facility] Comment on above: Order Comment: Test performed at:[facility] Immunogenetics LaboratoryW.MarvinSt. [facility], [address] [place] [address] Performed By: #### H LADNA ####ANTHONY YAN S ([id number]) HLA LAB (LA)24805 [facility], [facility]06 HLA-DRB1 High resolution Nom (Bld/Tiss) [facility] Comment on above: Order Comment: Test performed at:[facility] LaboratoryMarvinSt. Luke'S Jerome, 6th [address] [place] [address] Performed By: #### H LADNA ####ANTHONY YAN S ([id number]) HLA LAB (LA)49969 [place] [address] VIRTUAL XMon 10-14-2024 DIAGNOSIS-VIRTUAL CROSSMATCH N18.6 [facility] Comment on above: Order Comment: Test performed at:[facility] LaboratoryW.OSt. [facility], 6th [place] [address] Performed By: #### V XMC ####ANTHONY BENITEZAN S ([id number]) HLA LAB ([facility])[address] [place], [place] [address] PATH REVIEW-VIRTUAL CROSSMATCH AUGUST Normal [facility] Comment on above: Order Comment: Test performed at:[facility] LaboratorySaint [facility], 6th [place] [address] Performed By: #### V XMC ####ANTHONY OLIVEIRASPAN S ([id number]) HLA LAB ([facility])[address] [place], [place] [address] PATHOLOGIST ID-VIRTUAL CROSSMATCH [id number] [facility] Comment on above: Order Comment: Test performed at:[facility], [address] [place] [address] Performed By: #### V XMC ####ANTHONY OLIVEIRASPAN S ([id number]) HLA LAB ([facility])[address] [place] [address] FREEZE CROSSMATCHon 10-12-19 25 FREEZE CROSSMATCH Frozen Sample Normal [facility] Comment on above: Order Comment: Test performed at:[facility] LaboratoryMarvinSt. Luke'S [facility], [address] [place], [place] [address]Test performed at:[facility] LaboratorySaint [facility]phons[facility], [address] [place], [place] [address]Test performed at:[facility] LaboratorySaint [facility], [address] [place] [address] Performed By: #### H LFXM ####ANTHONY OLIVEIRASPAN S ([id number]) HLA LAB ([facility])[address] [place], [place] [address] TRANSTHORACIC ECHO (TTE) COM PLETEon 10-07-2024 TRANSTHORACIC ECHO (TTE) COMPLETE Normal [facility] US Heart TransthoracicOrdere d By: Andrae Mcnally on 10-07-2024 Aortic Valve Area by Continuity of Peak Velocity 4.[address] [facility] Work Phone: AV pk grad [address] [facility] Work Phone: AV pk davonte 0.95 m/s [facility] Work Phone: LA vol index A/L 24.1 ml/m2 [facility] Work Phone: LV A4C EF 65.[address] [facility] Work Phone: LV EF 68 % [facility] Work Phone: LVIDd 4.[address] [facility] Work Phone: LVOT diam 2.[address] [facility] Work Phone: MV E/A ratio 0.[address] [facility] Work Phone: RV free wall pk S' 11.65 cm/s [facility] Work Phone: RVSP [address] [facility] Work Phone: Tricuspid annular plane systolic excursion 2.[address] [facility] Work Phone: [facility] Work Phone: Heart Transthoracicon [facility], [address] [place] [address], [address] [address] and TRANSTHORACIC ECHOCARDIOGRAM REPORT Patient Name: THOM Soto Physician: [id number] Andrae Mcnally MD Study Date: 10/07/2024 Ordering Provider: [id number] BRANDI CAVANAUGH MRN/PID: [id number] Fellow: Nurse: Date of /Age: 3 1970 / 54 Building Official: Artem park RD, RCS Gender assigned at M Additional Staff: : Height: 190.50 cm Admit Date: Weight: 67.13 kg Admission Status: Outpatient BSA / BMI: 1.93 m2 / 18.50 kg/m2 Blood Pressure: 117/69 mmHg Department Location: [facility] Study Type: TRANSTHORACIC ECHO (TTE) COMPLETE Diagnosis/ICD: Encounter for other preprocedural examination-Z01.818 Indication: Pre-transplant evaluation for kidney transplant CPT Code: Echo Complete w Full Doppler-65597 Patient History: Pertinent History: Diabetic renal disease, ESRD w/HD, CAD, chest pain, shortness of breath, CA, HTN. Study Detail: The following Echo studies were performed: 2D, M-Mode, Doppler and color flow. PHYSICIAN INTERPRETATION: Left Ventricle: Left ventricular ejection fraction is normal, by visual estimate at 65-70%. There are no regional left ventricular wall motion abnormalities. The left ventricular cavity size is normal. There is normal septal and normal posterior left ventricular wall thickness. There is left ventricular concentric remodeling. Spectral Doppler shows a Grade I (impaired relaxation pattern) of left ventricular diastolic filling with normal left atrial filling pressure. Left Atrium: The left atrial size is normal. Right Ventricle: The right ventricle is normal in size. There is normal right ventricular global systolic function. Right Atrium: The right atrium is normal in size. Aortic Valve: The aortic valve is trileaflet. There is no evidence of aortic valve regurgitation. The peak instantaneous gradient of the aortic valve is 4 mmHg. Mitral Valve: The mitral valve is normal in structure. There is no evidence of mitral valve regurgitation. Tricuspid Valve: The tricuspid valve is structurally normal. No evidence of tricuspid regurgitation. Pulmonic Valve: The pulmonic valve is structurally normal. There is physiologic pulmonic valve regurgitation. Pericardium: There is no pericardial effusion noted. Aorta: The aortic root is normal. CONCLUSIONS: 1. Left ventricular ejection fraction is normal, by visual estimate at 65-70%. 2. Spectral Doppler shows a Grade I (impaired relaxation pattern) of left ventricular diastolic filling with normal left atrial filling pressure. 3. There is normal right ventricular global systolic function. QUANTITATIVE DATA SUMMARY: 2D MEASUREMENTS: Normal Ranges: Ao Root d: 3.40 cm (2.0-3.7cm) LAs: 2.79 cm (2.7-4.0cm) RVIDd: 2.42 cm (0.9-3.6cm) IVSd: 1.02 cm (0.6-1.1cm) LVPWd: 0.96 cm (0.6-1.1cm) LVIDd: 4.33 cm (3.9-5.9cm) LVIDs: 2.34 cm LV Mass Index: 73 g/m2 LVEDV Index: 49 ml/m2 LV % FS 45.9 % LEFT ATRIUM: Normal Ranges: LA Vol A4C: 41.7 ml (22+/-6mL/m2) LA Vol A2C: 45.7 ml LA Vol BP: 46.6 ml LA Vol Index A4C: 21.6ml/m2 LA Vol Index A2C: 23.7 ml/m2 LA Vol Index BP: 24.1 ml/m2 LA Area A4C: 14.7 cm2 LA Area A2C: 16.4 cm2 LA Major [place] A4C: 4.4 cm LA Major [place] A2C: 5.0 cm LA Volume Index: 23.9 ml/m2 LA Vol A4C: 40.9 ml LA Vol A2C: 44.0 ml LA Vol Index BSA: 22.0 ml/m2 M-MODE MEASUREMENTS: Normal Ranges: Ao Root: 3.50 cm (2.0-3.7cm) LAs: 4.12 cm (2.7-4.0cm) AORTA MEASUREMENTS: Normal Ranges: Asc Ao, d: 2.80 cm (2.1-3.4cm) LV SYSTOLIC FUNCTION: Normal Ranges: EF-A4C View: 66 % (>=55%) EF-A2C View: 69 % EF-Biplane: 67 % EF-Visual: 68 % LV EF Reported: 68 % LV DIASTOLIC FUNCTION: Normal Ranges: MV Peak E: 0.58 m/s (0.7-1.2 m/s) MV Peak A: 0.79 m/s (0.42-0.7 m/s) E/A Ratio: 0.73 (1.0-2.2) MV e' 0.072 m/s (>8.0) MV lateral e' 0.07 m/s MV medial e' 0.07 m/s MV A Dur: 135.11 msec E/e' Ratio: 8.06 (<8.0) a' 0.10 m/s PulmV Sys Davonte: 46.53 c (more content not included)... Andrae Richards MD - 10/07/2024 [facility], [facility], [address], [place], [place] [address] and TRANSTHORACIC ECHOCARDIOGRAM REPORT Patient Name: THOM Soto Physician: [id number] Andrae Mcnally MD Study Date: 10/07/2024 Ordering Provider: [id number] BRANDI CAVANAUGH MRN/PID: [id number] Fellow: Nurse: Date of /Age: 3 1970 Building Official: ARMINDA Horvath RDCS Gender assigned at Additional Staff: : Height: 190.50 cm Admit Date: Weight: 67.13 kg Admission Status: Outpatient BSA / BMI: 1.93 m2 / 18.50 kg/m2 Blood Pressure: 117/69 mmHg Department Location: [facility] Study Type: TRANSTHORACIC ECHO (TTE) COMPLETE Diagnosis/ICD: Encounter for other preprocedural examination-Z01.818 Indication: Pre-transplant evaluation for kidney transplant CPT Code: Echo Complete w Full Doppler-69566 Patient History: Pertinent History: Diabetic renal disease, ESRD w/HD, CAD, chest pain, shortness of breath, CA, HTN. Study Detail: The following Echo studies were performed: 2D, M-Mode, Doppler and color flow. PHYSICIAN INTERPRETATION: Left Ventricle: Left ventricular ejection fraction is normal, by visual estimate at 65-70%. There are no regional left ventricular wall motion abnormalities. The left ventricular cavity size is normal. There is normal septal and normal posterior left ventricular wall thickness. There is left ventricular concentric remodeling. Spectral Doppler shows a Grade I (impaired relaxation pattern) of left ventricular diastolic filling with normal left atrial filling pressure. Left Atrium: The left atrial size is normal. Right Ventricle: The right ventricle is normal in size. There is normal right ventricular global systolic function. Right Atrium: The right atrium is normal in size. Aortic Valve: The aortic valve is trileaflet. There is no evidence of aortic valve regurgitation. The peak instantaneous gradient of the aortic valve is 4 mmHg. Mitral Valve: The mitral valve is normal in structure. There is no evidence of mitral valve regurgitation. Tricuspid Valve: The tricuspid valve is structurally normal. No evidence of tricuspid regurgitation. Pulmonic Valve: The pulmonic valve is structurally normal. There is physiologic pulmonic valve regurgitation. Pericardium: There is no pericardial effusion noted. Aorta: The aortic root is normal. CONCLUSIONS: 1. Left ventricular ejection fraction is normal, by visual estimate at 65-70%. 2. Spectral Doppler shows a Grade I (impaired relaxation pattern) of left ventricular diastolic filling with normal left atrial filling pressure. 3. There is normal right ventricular global systolic function. QUANTITATIVE DATA SUMMARY: 2D MEASUREMENTS: Normal Ranges: Ao Root d: 3.40 cm (2.0-3.7cm) LAs: 2.79 cm (2.7-4.0cm) RVIDd: 2.42 cm (0.9-3.6cm) IVSd: 1.02 cm (0.6-1.1cm) LVPWd: 0.96 cm (0.6-1.1cm) LVIDd: 4.33 cm (3.9-5.9cm) LVIDs: 2.34 cm LV Mass Index: 73 g/m2 LVEDV Index: 49 ml/m2 LV % FS 45.9 % LEFT ATRIUM: Normal Ranges: LA Vol A4C: 41.7 ml (22+/-6mL/m2) LA Vol A2C: 45.7 ml LA Vol BP: 46.6 ml LA Vol Index A4C: 21.6ml/m2 LA Vol Index A2C: 23.7 ml/m2 LA Vol Index BP: 24.1 ml/m2 LA Area A4C: 14.7 cm2 LA Area A2C: 16.4 cm2 LA Major [place] A4C: 4.4 cm LA Major [place] A2C: 5.0 cm LA Volume Index: 23.9 ml/m2 LA Vol A4C: 40.9 ml LA Vol A2C: 44.0 ml LA Vol Index BSA: 22.0 ml/m2 M-MODE MEASUREMENTS: Normal Ranges: Ao Root: 3.50 cm (2.0-3.7cm) LAs: 4.12 cm (2.7-4.0cm) AORTA MEASUREMENTS: Normal Ranges: Asc Ao, d: 2.80 cm (2.1-3.4cm) LV SYSTOLIC FUNCTION: Normal Ranges: EF-A4C View: 66 % (>=55%) EF-A2C View: 69 % EF-Biplane: 67 % EF-Visual: 68 % LV EF Reported: 68 % LV DIASTOLIC FUNCTION: Normal Ranges: MV Peak E: 0.58 m/s (0.7-1.2 m/s) MV Peak A: 0.79 m/s (0.42-0.7 m/s) E/A Ratio: 0.73 (1.0-2.2) MV e' 0.072 m/s (>8.0) MV lateral e' 0.07 m/s MV medial e' 0.07 m/s MV A Dur: 135.11 msec E/e' Ratio: 8.06 (<8.0) a' 0.10 m/s PulmV Sys Davonte: 46.53 cm/s PulmV Farrar Davonte: 36.86 cm/s PulmV S/D Davonte: 1.26 PulmV A Revs Davonte: 21.70 cm/s PulmV A Revs Dur: 72.31 msec MITRAL VALVE: Normal Ranges: MV DT: 269 msec (150-240msec) AORTIC VALVE: Normal Ranges: AoV Vmax: 0.95 m/s (<=1.7m/s) AoV Peak P.6 mmHg (<20mmHg) LVOT Max Davonte: 0.90 m/s (<=1.1m/s) LVOT VTI: 17.92 cm LVOT Diameter: 2.47 cm (1.8-2.4cm) AoV Area,Vmax: 4.51 cm2 (2.5-4.5cm2) RIGHT VENTRICLE: RV Basal 3.40 cm RV Mid 2.40 cm RV Major 6.0 cm TAPSE: 22.1 mm RV s' 0.12 m/s TRICUSPID VALVE/RVSP: Normal Ranges: Peak TR Velocity: 2.40 m/s RV Syst Pressure: 26 mmHg (< 30mmHg) IVC Diam: 1.40 cm PULMONIC VALVE: Normal Ranges: PV Accel Time: 151 msec (>120ms) PV Max Davonte: 0.7 m/s (0.6-0.9m/s) PV Max P.9 mmHg (more content not included)... [facility] Work Phone: ABO and Rh group panel (Bld) on 09-09-2024 ABO group Nom (Bld) B Normal [facility] Comment on above: Performed By: #### 3 4530-6 ####JASON Carrasquillo ([id number])[facility] ([facility])[address] [place] [address] D Ag Ql (Bld) Positive Normal [facility] Comment on above: Performed By: #### 3 4530-6 ####JASON Carrasquillo ([id number])[facility] ([facility])[address] [place] [address] Amylaseon 09-09-2024 Amylase [Catalytic activity/Vol] 115 U/L High 29-103 [facility] Comment on above: Performed By: #### 1 798-8 ####JASON Carrasquillo ([id number])[facility] ([facility])[address] [place] [address] C peptideon 09-09-2024 C peptide [Mass/Vol] 3.0 ng/mL Normal 0.7-3.9 [facility] Comment on above: Performed By: #### 1 986-9 ####JASON Carrasquillo ([id number])[facility] ([facility])[address] [place] [address] CBC panel Auto (Bld)on 09-09 Erythrocyte distribution width (RBC) [Ratio] 16.6 % High 11.5-14.5 [facility] Comment on above: Performed By: #### 5 8410-2 ####JASON Carrasquillo ([id number])[facility] ([facility])[address] [place] [address] Hematocrit (Bld) [Volume fraction] 34.3 % Low 41.0-52.0 [facility] Comment on above: Performed By: #### 5 8410-2 ####JASON Carrasquillo ([id number])[facility] ([facility])[address] [place] [address] Hemoglobin (Bld) [Mass/Vol] 10.7 g/dL Low 13.5-17.5 [facility] Comment on above: Performed By: #### 5 8410-2 ####JASON Carrasquillo ([id number])[facility] ([facility])[address] [place] [address] MCH (RBC) [Entitic mass] 23.8 pg Low 26.0-34.0 [facility] Comment on above: Performed By: #### 5 8410-2 ####JASON Carrasquillo ([id number])[facility] ([facility])[address] [place] [address] MCHC (RBC) [Mass/Vol] 31.2 g/dL Low 32.0-36.0 [facility] Comment on above: Performed By: #### 5 8410-2 ####JASON Carrasquillo ([id number])[facility] ([facility])[address] [place] [address] MCV (RBC) [Entitic vol] 76 fL Low 80-100 [facility] Comment on above: Performed By: #### 5 8410-2 ####JASON Carrasquillo ([id number])[facility] ([facility])[address] [place] [address] Nucleated RBC/100 WBC (Bld) [Ratio] 0.0 /100 WBCs Normal 0.0-0.0 [facility] Comment on above: Performed By: #### 5 8410-2 ####JASON Carrasquillo ([id number])[facility] ([facility])[address] [place] [address] Platelets (Bld) [#/Vol] 93 x10*3/uL Low 150-450 [facility] Comment on above: Performed By: #### 5 8410-2 ####JASON Carrasquillo ([id number])[facility] ([facility])[address] [place] [address] RBC (Bld) [#/Vol] 4.49 x10*6/uL Low 4.50-5.90 [facility] Comment on above: Performed By: #### 5 8410-2 ####JASON Carrasquillo ([id number])[facility] ([facility])[address] [place] [address] WBC (Bld) [#/Vol] 3.6 x10*3/uL Low 4.4-11.3 [facility] Comment on above: Performed By: #### 5 8410-2 ####JASON Carrasquillo ([id number])[facility] ([facility])[address] [place] [address] Cannabinoidson 09-09-2024 Cannabinoids [Mass/Vol] 39 ng/mL Normal [facility] Comment on above: Result Comment: INTE RPRETIVE INFORMATION: THC Metabolite, Serum or Plasma, QuantitativeMethodology: Quantitative Liquid Chromatography-Tandem MassSpectrometry.Positive cutoff: 5 ng/mLFor medical purposes only; not valid for forensic use.The drug analyte detected in this assay, 9-carboxy THC, is ametabolite of nofve-6-pkujijkcsbaevefqtobk (THC). Detection of9-carboxy THC suggests use of, or exposure to, a productcontaining THC. This test cannot distinguish between prescribedor non-prescribed forms of THC, nor can it distinguish betweenactive or passive use. The plasma half-life for 9-carboxy THCmetabolite is estimated to range from 4-12 hours.This test was developed and its performance characteristicsdetermined by [facility]. It has not been cleared orapproved by the [place] Food and Drug Administration. This test wasperformed in a CLIA certified laboratory and is intended forclinical purposes.Performed By: [facility] [place], [place] [address]Tyzxibivjx Director: Trevor Machado MD, PhDCLIA Number: [id number] Performed By: #### 8 170-3 ####[facility] NisaJANEE) ([id number])[address] [place] [address] Coagulation tissue factor in ducedon 09-09-2024 PT Coag (PPP) [Time] 11.2 s Normal 9.8-12.4 [facility] Comment on above: Performed By: #### 5 902-2 ####JASON Carrasquillo ([id number])[facility] ([facility])[address] [place] [address] Creatinineon 09-09-2024 Creatinine [Mass/Vol] 7.95 mg/dL High 0.50-1.30 [facility] Comment on above: Performed By: #### 2 160-0 ####JASON Carrasquillo ([id number])[facility] ([facility])[address] [place] [address] Creatinine [Mass/Vol]on Glomerular filtration rate/1.73 sq M.predicted 7 mL/min/1.73m*2 Low >60 [facility] Comment on above: Result Comment: Calc ulations of estimated GFR are performed using the 2020 CKD-EPI Study Refit equation without the race variable for the IDMS-Traceable creatinine methods.https://jasn.asnjournals.org/content/early// N.9188609822 Performed By: #### 2 160-0 ####JASON Carrasquillo ([id number])[facility] ([facility])[address] [place] [address] Cytomegalovirus Ab.IgG avidi tyon 09-09-2024 CMV IgG avidity IA [Ratio] Reactive Abnormal Nonreactive [facility] Comment on above: Performed By: #### 5 2984-2 ####JASON Carrasquillo ([id number])[facility] ([facility])[address] [place] [address] DRUG PROFILE 9, BLOOD W/ REF MARTA TO CONFIRMATIONon 09-09-2024 Amphetamines Screen Ql Negative Normal Cutoff 20 [facility] Comment on above: Performed By: #### D S7LC ####ANABELLE ALLISON) ([id number])[address] [place] [address] Annotation comment [Interpretation] Narrative See Note Normal [facility] Comment on above: Result Comment: INTE RPRETIVE INFORMATION: Drug Screen 9 Panel, Serum or Plasma - Immunoassay Screen with Reflex to Mass Spectrometry Confirmation/Quantitation1. Methodology: Qualitative Immunoassay Screen2. Drugs/Drug classes reported as Positive are automaticallyreflexed to mass spectrometry confirmation/quantitation testing.An immunoassay unconfirmed positive screen result may be usefulfor medical purposes but does not meet forensic standards.3. The absence of expected drug(s) and/or drug metabolite(s) mayindicate noncompliance, inappropriate timing of specimencollection relative to drug administration, poor drug absorption,or limitations of testing. The concentration at which thescreening test can detect a drug or metabolite varies within adrug class. Specimens for which drugs or drug classes are detectedby the screen are automatically reflexed to a second, morespecific technology (mass spectrometry). The concentration valuemust be greater than or equal to the cutoff to be reported aspositive. Interpretive questions should be directed to thelaboratory.4. For medical purposes only; not valid for forensic use.This test was developed and its performance characteristicsdetermined by [facility]. It has not been cleared orapproved by the [place] Food and Drug Administration. This test wasperformed in a CLIA certified laboratory and is intended forclinical purposes.Performed By: [facility] [place], [place] [address]Lneoplfdxp Director: Trevor Machado MD, PhDCLIA Number: [id number] Performed By: #### D S7LC ####[facility] [employer]) ([id number])[address] [place] [address] Barbiturates Screen Ql Negative Normal Cutoff 50 [facility] Comment on above: Performed By: #### Maikol S7LC ####[facility] ([employer]) ([id number])[address] [place] [address] Benzodiazepines Screen Ql Negative Normal Cutoff 50 [facility] Comment on above: Performed By: #### D S7LC ####[facility] ([employer]) ([id number])[address] [place] [address] Buprenorphine [Mass/Vol] Negative Normal Cutoff 1 [facility] Comment on above: Performed By: #### D S7LC ####[facility] ([employer]) ([id number])[address] [place] [address] Cannabinoids Screen Ql Positive Normal Cutoff 20 [facility] Comment on above: Result Comment: If t he screen is positive, then confirmation by mass spectrometrywill be added. Additional charges will apply. Unconfirmed positive may be useful for medical purposes, but doesnot meet forensic standards. Performed By: #### D S7LC ####[facility] ([employer]) ([id number])[address] [place] [address] Cocaine Screen Ql Negative Normal Cutoff 20 [facility] Comment on above: Performed By: #### D S7LC ####[facility] ([employer]) ([id number])500 [place] [address] Methadone Screen Ql Negative Normal Cutoff 25 [facility] Comment on above: Performed By: #### D S7LC ####[facility] (BEAKER) ([id number])[address] [place] [address] Methamphetamine Ql Negative Normal Cutoff 20 [facility] Comment on above: Performed By: #### D S7LC ####[facility] ([facility]ER) ([id number])[address] [place] [address] Opiates Screen Ql Negative Normal Cutoff 20 [facility] Comment on above: Performed By: #### D S7LC ####[facility] ([facility]ER) ([id number])[address] [place] [address] oxyCODONE Ql Negative Normal Cutoff 20 [facility] Comment on above: Performed By: #### D S7LC ####[facility] (BE[facility]ER) ([id number])[address] [place] [address] Phencyclidine Screen Ql Negative Normal Cutoff 10 [facility] Comment on above: Performed By: #### D S7LC ####[facility] (BE[facility]ER) ([id number])500 [place] [address] JOSELUIS-ARGUETA VIRUS ANTIBODY PANELon 09-09-2024 EBV capsid IgG IA Qn (S) Positive Abnormal Negative [facility] Comment on above: Order Comment: EBV I NTERPRETATION CHARTPRIMARY ACUTEVCA-IGG: +/-VCA-IGM: +/-EA-IGG: +/-NA-IGG: -LATE ACUTEVCA-IGG: +VCA-IGM: +/-EA-IGG: +/-NA-IGG: +/-RECOVERINGVCA-IGG: +VCA-IGM: -EA-IGG: +NA-IGG: -PREVIOUS INFECTIONVCA-IGG: +VCA-IGM: -EA-IGG: -NA-IGG: +/- Performed By: #### E BVP1 ####JASON Carrasquillo ([id number])[facility] ([facility])[address] [place] [address] EBV capsid IgM IA Qn (S) Negative Normal Negative [facility] Comment on above: Order Comment: EBV I NTERPRETATION CHARTPRIMARY ACUTEVCA-IGG: +/-VCA-IGM: +/-EA-IGG: +/-NA-IGG: -LATE ACUTEVCA-IGG: +VCA-IGM: +/-EA-IGG: +/-NA-IGG: +/-RECOVERINGVCA-IGG: +VCA-IGM: -EA-IGG: +NA-IGG: -PREVIOUS INFECTIONVCA-IGG: +VCA-IGM: -EA-IGG: -NA-IGG: +/- Performed By: #### E BVP1 ####JASON Carrasquillo ([id number])[facility] ([facility])[address] [place] [address] 37723 EBV early IgG Ql (S) Negative Normal Negative [facility] Comment on above: Order Comment: EBV I NTERPRETATION CHARTPRIMARY ACUTEVCA-IGG: +/-VCA-IGM: +/-EA-IGG: +/-NA-IGG: -LATE ACUTEVCA-IGG: +VCA-IGM: +/-EA-IGG: +/-NA-IGG: +/-RECOVERINGVCA-IGG: +VCA-IGM: -EA-IGG: +NA-IGG: -PREVIOUS INFECTIONVCA-IGG: +VCA-IGM: -EA-IGG: -NA-IGG: +/- Performed By: #### E BVP1 ####JASON Carrasquillo ([id number])[facility] ([facility])[address] [place] [address] EBV nuclear Ab Ql (S) Positive Abnormal Negative Uni [facility] Comment on above: Order Comment: EBV I NTERPRETATION CHARTPRIMARY ACUTEVCA-IGG: +/-VCA-IGM: +/-EA-IGG: +/-NA-IGG: -LATE ACUTEVCA-IGG: +VCA-IGM: +/-EA-IGG: +/-NA-IGG: +/-RECOVERINGVCA-IGG: +VCA-IGM: -EA-IGG: +NA-IGG: -PREVIOUS INFECTIONVCA-IGG: +VCA-IGM: -EA-IGG: -NA-IGG: +/- Performed By: #### E BVP1 ####JASON Carrasquillo ([id number])[facility] ([facility])[address] [place] [address] FREEZE CROSSMATCHon 09-10-19 25 FREEZE CROSSMATCH Frozen Sample Normal Univ [facility] Comment on above: Order Comment: Test performed at:[facility] CenterHistocompatibility and Immunogenetics LaboratorySaint [facility], [address] [address] [place] [address] Performed By: #### H LFXM ####ANTHONY Dunbar ([id number]) [facility] ([facility])[address] [place] [address] HIV 1+2 Ab+HIV1 p24 Agon HIV 1+2 Ab+HIV1 p24 Ag IA Ql Non-Reactive Normal Nonreactive [facility] Comment on above: Order Comment: HIV A g/Ab screen is performed using the Siemens GENIACllDivvyHQ HIV Ag/Ab Combo assay which detects the presence of HIV p24 antigen as well as antibodies to HIV-1 (Group M and O) and HIV-2.No laboratory evidence of HIV infection. If acute HIV infection is suspected, consider testing for HIV RNA by PCR (viral load). Performed By: #### 5 6888-1 ####JASON Carrasquillo ([id number])[facility] ([facility])[address] [place] [address] HbA1c (Bld) [Mass fraction]o n 09-09-2024 Average glucose Estimated from glycated hemoglobin (Bld) [Mass/Vol] 140 mg/dL Normal Not Established [facility] Comment on above: Order Comment: Diagn osis of Ecnnmasp-OaxfeiJtd-Nblaeysa: < or = 5.6%Increased risk for developing diabetes: 5.7-6.4%Diagnostic of diabetes: > or = 6.5% Performed By: #### 4 548-4 ####JASON Carrasquillo ([id number])[facility] ([facility])[address] [place] [address] 76741 Hemoglobin A1c/Hemoglobin.to j carlos 09-09-2024 HbA1c (Bld) [Mass fraction] 6.5 % High See comment [facility] Comment on above: Order Comment: Diagn osis of Rgwjvrka-PafkjoRut-Jubguwxw: < or = 5.6%Increased risk for developing diabetes: 5.7-6.4%Diagnostic of diabetes: > or = 6.5% Performed By: #### 4 548-4 ####JASON Carrasquillo ([id number])[facility] ([facility])[address] [place] [address] 54034 Hepatic function 2000 panelo n 09-09-2024 Albumin BCP dye [Mass/Vol] 4.3 g/dL Normal 3.4-5.0 [facility] Comment on above: Performed By: #### 2 4325-3 ####JASON Carrasquillo ([id number])[facility] ([facility])[address] [place] [address] 52894 ALP [Catalytic activity/Vol] 89 U/L Normal 33-120 [facility] Comment on above: Performed By: #### 2 4325-3 ####JASON Carrasquillo ([id number])[facility] ([facility])[address] [place] [address] 17387 ALT With P-5'-P [Catalytic activity/Vol] 19 U/L Normal 10-52 [facility] Comment on above: Result Comment: Christina ents treated with Sulfasalazine may generate falsely decreased results for ALT. Performed By: #### 2 4325-3 ####JASON Carrasquillo ([id number])[facility] ([facility])[address] [place] [address] AST With P-5'-P [Catalytic activity/Vol] 23 U/L Normal 9-39 [facility] Comment on above: Performed By: #### 2 4325-3 ####JASON Carrasquillo ([id number])[facility] ([facility])[address] [place] [address] 62344 Bilirubin [Mass/Vol] 0.7 mg/dL Normal 0.0-1.2 [facility] Comment on above: Performed By: #### 2 4325-3 ####JASON Carrasquillo ([id number])[facility] ([facility])[address] [place] [address] 61024 Bilirubin.direct [Mass/Vol] 0.2 mg/dL Normal 0.0-0.3 [facility] Comment on above: Performed By: #### 2 4325-3 ####JASON Carrasquillo ([id number])[facility] ([facility])[address] [place] [address] 01002 Protein [Mass/Vol] 7.3 g/dL Normal 6.4-8.2 [facility] Comment on above: Performed By: #### 2 4325-3 ####JASON Carrasquillo ([id number])[facility] ([facility])[address] [place] [address] 38227 Hepatitis B virus core Abon 09-09-2024 HBV core Ab Ql (S) Non-Reactive Normal Nonreactive [facility] Comment on above: Performed By: #### 1 6933-4 ####JASON Carrasquillo ([id number])[facility] ([facility])[address] [place] [address] 61960 Hepatitis B virus surface Ab on 09-09-2024 HBV surface Ab Qn (S) 25.1 mIU/mL High <10.0 [facility] Comment on above: Result Comment: Inte rpretive Criteria: <10 mIU/mL Nonreactive >=10 mIU/mL ReactiveBiotin interference may cause falsely decreased results. Patients taking a Biotin dose of up to 5 mg/day should refrain from taking Biotin for 24 hours before sample collection. Providers may contact their local laboratory for further information. Performed By: #### 1 6935-9 ####JASON Carrasquillo ([id number])[facility] ([facility])[address] [place], [place] [address] Hepatitis B virus surface Ag on 09-09-2024 HBV surface Ag IA Ql Non-Reactive Normal Nonreactive [facility] Comment on above: Result Comment: Biot in interference may cause falsely decreased results. Patients taking a Biotin dose of up to 5 mg/day should refrain from taking Biotin for 24 hours before sample collection. Providers may contact their local laboratory forfurther information. Performed By: #### 5 196-1 ####JASON Carrasquillo ([id number])[facility] ([facility])[address] [place], [place] [address] Hepatitis C virus Abon 09-09 HCV Ab Ql (S) Non-Reactive Normal Nonreactive [facility] Comment on above: Result Comment: Resu lts from patients taking biotin supplements or receiving high-dose biotin therapy should be interpreted with caution due to possible interference with this test. Providers may contact their local laboratory for further information. Performed By: #### 1 6128-1 ####JASON Carrasquillo ([id number])[facility] ([facility])[address] [place], [place] [address] LIPID PANEL NON-FASTINGon Cholesterol [Mass/Vol] 102 mg/dL Normal 0-199 [facility] Comment on above: Result Comment: Age Desirable Borderline High High 0-19 Y 0 - 169 170 - 199 >/= 200 20-24 Y 0 - 189 190 - 224 >/= 225 >24 Y 0 - 199 200 - 239 >/= 240 All ranges are based on fasting samples. Specific therapeutic targets will vary based on patient-specific cardiac risk.Pediatric guidelines reference:Pediatrics 2011, 128(S5).Adult guidelines reference: NCEP ATPIII Guidelines,REMEDIOS 2001, 258:2486-97Venipuncture immediately after or during the administration of Metamizole may lead to falsely low results. Testing should be performed immediately prior to Metamizole dosing. Performed By: #### L IPIN ####JASON Carrasquillo ([id number])[facility] ([facility])[address] [place] [address] Cholesterol in HDL [Mass/Vol] 44.9 mg/dL [facility] Comment on above: Result Comment: Age Very Low Low Normal High0-19 Y < 35 < 40 40-45 ----20-24 Y ---- < 40 >45 ---->24 Y ---- < 40 40-60 >60 Performed By: #### L IPIN ####JASON Carrasquillo ([id number])[facility] ([facility])[address] [place] [address] 94618 CHOLESTEROL/HDL RATIO 2.3 Normal [facility] Comment on above: Result Comment: Ref ValuesDesirable < 3.4High Risk > 5.0 Performed By: #### L IPIN ####JASON Carrasquillo ([id number])[facility] ([facility])[address] [place] [address] 83050 NON-HDL CHOLESTEROL 57 mg/dL Normal 0-149 [facility] Comment on above: Result Comment: Age Desiable Borderline High High Very High 0- 19 Y 0 - 119 120 - 144 >/= 145 >/= 40688-17 Y 0 - 149 150 - 189 >/= 190 ---- >24 Y 30 MG/DL ABOVE LDL CHOLESTEROL GOAL Performed By: #### L IPIN ####JASON Carrasquillo ([id number])[facility] ([facility])[address] [place] [address] 90833 M. tuberculosis stim IFN-g a nd spot count panel (Bld)on 09-09-2024 Gamma interferon negative control spot count (Bld) [#] Passed [facility] Comment on above: Performed By: #### 7 4281-7 ####QUEST CHANTL ([id number])55304 [facility]ITAL[facility] [place] M. tuberculosis stim IFN-g CFP10 Ag spot count (Bld) [#] 0 Normal [facility] Comment on above: Performed By: #### 7 4281-7 ####QUEST CHANTL ([id number])75449 OsurvOASIS BEHAVIORAL HEALTH HOSPITALKIHEITAIGERMAN HOSPITALFlybitsRIVERVIEW [facility], [place] M. tuberculosis stim IFN-g ESAT-6 Ag spot count (Bld) [#] 0 Normal [facility] Comment on above: Performed By: #### 7 4281-7 ####QUEST CHANTL ([id number])98544 OsurvOASIS BEHAVIORAL HEALTH HOSPITALKIHEITAIGERMAN HOSPITALHoneit, [facility] [place] M. tuberculosis stim IFN-g Ql (Bld) [Interp] Negative Normal Negative [facility] Comment on above: Result Comment: A ne gative test result does not exclude the possibilityof exposure to or infection with Mycobacteriumtuberculosis (M. tuberculosis). Patients with recentexposure to TB infected individuals exhibiting anegative T-SPOT.TB result should be considered forretesting within 6 weeks or if other relevant clinicalsymptoms indicate. Results from T-SPOT.TB testing mustbe used in conjunction with each individual'sepidemiological history, current medical status,and results of other diagnostic evaluations.The T-SPOT.TB test is qualitative and results arereported as positive, borderline, or negative, giventhat the test controls perform as expected. In linewith the Centers for Disease Control and Prevention's2010 recommendation to report quantitative measurementsalongside the qualitative result, the laboratoryprovides spot counts for informational purposes only.The T-SPOT.TB test should not be interpreted as aquantitative test. Performed By: #### 7 4281-7 ####QUEST CHANTL ([id number])27691 OsurvOASIS BEHAVIORAL HEALTH HOSPITALKIHEITAIGERMAN HOSPITALFlybitsRIVERVIEW [facility], [place] Mitogen stimulated gamma interferon positive control spot count (Bld) [#] Passed [facility] Comment on above: Result Comment: For additional information, please refer [email or web address].[employer]/faq/OQU782(This link is being provided for informational/educational purposes only.) Performed By: #### 7 4281-7 ####QUEST MARVIN [id number] [facility] [place] NICOTINE AND METABOLITES,Son 09-09-2024 Cotinine [Mass/Vol] <5 Normal [facility] Comment on above: Performed By: #### N I+ME ####[facility] ([facility]) ([id number])[address] [place] [address] Nicotine [Mass/Vol] <5 Normal [facility] Comment on above: Result Comment: INTE RPRETIVE INFORMATION: Nicotine and Metabolites, Serum or Plasma, QuantitativeMethodology: Quantitative Liquid Chromatography-Tandem MassSpectrometryPositive cutoff: 5 ng/mLFor medical purposes only; not valid for forensic use.This test is designed to evaluate recent use ofnicotine-containing products. Passive and active exposure cannotbe discriminated definitively, although a cutoff of 10 ng/mLcotinine is frequently used for surgery qualification purposes.For smoking cessation programs or compliance testing, the absenceof expected drug(s) and/or drug metabolite(s) may indicatenon-compliance, inappropriate timing of specimen collectionrelative to drug administration, poor drug absorption, orlimitations of testing. This test cannot distinguish between useof tobacco and purified nicotine products. The concentration valuemust be greater than or equal to the cutoff to be reported aspositive.This test was developed and its performance characteristicsdetermined by [facility]. It has not been cleared orapproved by the [place] Food and Drug Administration. This test wasperformed in a CLIA certified laboratory and is intended forclinical purposes.Performed By: [facility] [place], [place] [address]Vbenccqurn Director: Trevor Machado MD, PhDCLIA Number: [id number] Performed By: #### N I+ME ####[facility] ([place]) ([id number])[address] [place] [address] PT Coag (PPP) [Time]on 09-09 INR Coag (PPP) [Relative time] 1.0 Normal 0.9-1.1 [facility] Comment on above: Performed By: #### 5 902-2 ####JASON Carrasquillo ([id number])[facility] ([facility])[address] [place] [address] Phosphateon 09-09-2024 Phosphate [Mass/Vol] 4.1 mg/dL Normal 2.5-4.9 [facility] Comment on above: Result Comment: The performance characteristics of phosphorus testing in heparinized plasma have been validated by the individual laboratory site where testing is performed. Testing on heparinized plasma is not approved by the FDA; however, such approval is not necessary. Performed By: #### 2 777-1 ####JASON Carrasquillo ([id number])[facility] ([facility])[address] [place] [address] 23934 Treponema pallidum Ab.IgG+Ig Mon 09-09-2024 T. pallidum IgG+IgM IA Ql (S) Non-Reactive Normal Nonreactive [facility] Comment on above: Result Comment: No s ignificant level of Treponema pallidum antibody detected.Repeat testing in 2 to 4 weeks may be considered if earlyinfection or incubating syphilis infection is suspected. Performed By: #### 4 7236-5 ####JASON Carrasquillo ([id number])[facility] ([facility])[address] [place] [address] 44431 Urea nitrogenon 09-09-2024 Urea nitrogen [Mass/Vol] 36 mg/dL High 6-23 [facility] Comment on above: Performed By: #### 3 094-0 ####JASON Carrasquillo ([id number])[facility] ([facility])[address] [place] [address] 51153 Urinalysis complete W Reflex Culture panel (U)on 09-09-2024 Appearance (U) Clear Normal Clear [facility] Comment on above: Performed By: #### 5 8077-9 ####JASON Carrasquillo ([id number])[facility] ([facility])[address] [place] [address] 08927 Bilirubin (U) [Mass/Vol] Negative Normal NEGATIVE [facility] Comment on above: Performed By: #### 5 8077-9 ####JASON Carrasquillo ([id number])[facility] ([facility])[address] [place] [address] Color (U) Light-Yellow Normal Light-Yellow, Yellow, Dark-Yellow [facility] Comment on above: Performed By: #### 5 8077-9 ####JASON Carrasquillo ([id number])[facility] ([facility])[address] [place] [address] 85660 Glucose Auto test strip (U) [Mass/Vol] 100 (1+) Abnormal Normal [facility] Comment on above: Performed By: #### 5 8077-9 ####JASON Carrasquillo ([id number])[facility] ([facility])[address] [place] [address] 92124 Ketones (U) [Mass/Vol] Negative Normal NEGATIVE [facility] Comment on above: Performed By: #### 5 8077-9 ####JASON Carrasquillo ([id number])[facility] ([facility])[address] [place] [address] 35503 Leukocyte esterase Auto test strip Ql (U) Negative Normal NEGATIVE [facility] Comment on above: Performed By: #### 5 8077-9 ####JASON Carrasquillo ([id number])[facility] ([facility])[address] [place] [address] 61830 Nitrite Auto test strip Ql (U) Negative Normal NEGATIVE [facility] Comment on above: Performed By: #### 5 8077-9 ####JASON Carrasquillo ([id number])[facility] ([facility])[address] [place] [address] 12774 pH (U) 8.0 [pH] Normal 5.0, 5.5, 6.0, 6.5, 7.0, 7.5, 8.0 [facility] Comment on above: Performed By: #### 5 8077-9 ####JASON Carrasquillo ([id number])[facility] ([facility])[address] [place] [address] 34021 Protein (U) [Mass/Vol] 100 (2+) Abnormal NEGATIVE, 10 (TRACE), 20 (TRACE) [facility] Comment on above: Performed By: #### 5 8077-9 ####JASON Carrasquillo ([id number])[facility] ([facility])[address] [place] [address] RBC (U) [#/Vol] Negative Normal NEGATIVE [facility] Comment on above: Performed By: #### 5 8077-9 ####JASON Carrasquillo ([id number])[facility] ([facility])[address] [place] [address] RBC Auto (Urine sed) [#/Area] 1-2 Normal NONE, 1-2, 3-5 [facility] Comment on above: Performed By: #### 5 8077-9 ####JASON Carrasquillo ([id number])[facility] ([facility])[address] [place] [address] 97322 Specific gravity (U) [Rel density] 1.011 Normal 1.005-1.035 [facility] Comment on above: Performed By: #### 5 8077-9 ####JASON Carrasquillo ([id number])[facility] ([facility])[address] [place] [address] Urobilinogen (U) [Mass/Vol] Normal Normal Normal [facility] Comment on above: Performed By: #### 5 8077-9 ####JASON Carrasquillo ([id number])[facility] ([facility])[address] [place] [address] WBC Auto (Urine sed) [#/Area] NONE Normal 1-5, NONE [facility] Comment on above: Performed By: #### 5 8077-9 ####JASON Carrasquillo ([id number])[facility] ([facility])[address] [place] [address] 64627 VZV IgG IA Ql (S)on 09-10-19 25 VARICELLA ZOSTER IGG INDEX 2.1 IA High <=0.8 [facility] Comment on above: Order Comment: NEGAT PAPI: No IgG antibodies specific to VZV detected.It is likely that the patient has not had aprevious exposure to VZV through infectionor vaccination. Alternatively, the patient may have beenexposed to VZV but a failure to respond may indicateimmunodeficiency.EQUIVOCAL:Equivocal results; obtain additional sample for retesting.POSITIVE: IgG antibody to VZV detected. This may indicate thatthe patient was exposed to VZV through infection orvaccination. The interpretation of serological tests shouldtake into account the immunological status of the patient. Testresults for patients, including immunocompromised patients, neonates,and pediatric patients, reflect their capacity to respondimmunologically to the virus as well as their exposure to thepathogen. Patients treated with IVIG may demonstrate alteredresults in serological assays. Performed By: #### 1 5410-4 ####JASON Carrasquillo ([id number])[facility] ([facility])[address] [place] [address] Varicella zoster virus Ab.Ig Fredi 09-09-2024 VZV IgG IA Ql (S) Positive Abnormal Negative [facility] Comment on above: Order Comment: NEGAT PAPI: No IgG antibodies specific to VZV detected.It is likely that the patient has not had aprevious exposure to VZV through infectionor vaccination. Alternatively, the patient may have beenexposed to VZV but a failure to respond may indicateimmunodeficiency.EQUIVOCAL:Equivocal results; obtain additional sample for retesting.POSITIVE: IgG antibody to VZV detected. This may indicate thatthe patient was exposed to VZV through infection orvaccination. The interpretation of serological tests shouldtake into account the immunological status of the patient. Testresults for patients, including immunocompromised patients, neonates,and pediatric patients, reflect their capacity to respondimmunologically to the virus as well as their exposure to thepathogen. Patients treated with IVIG may demonstrate alteredresults in serological assays. Performed By: #### 1 5410-4 ####JASON Carrasquillo ([id number])[facility] ([facility])[address] [place], [place] [address] XR CHEST 2 VIEWSon 5 XR CHEST 2 VIEWS Normal [facility] XR Chest 2 Viewson 5 1. No evidence of ac kelley cardiopulmonary process. MACRO: None Signed by: Heriberto Key 09/09/2024 1:45 PM Dictation workstation: [id number] MMODAL Interpreted By: Heriberto Norman, STUDY: XR CHEST 2 VIEWS; 09/09/2024 11:42 am INDICATION: Signs/Symptoms:prekidney recipient transplant evaluation. ,Z01.818 Encounter for other preprocedural examination COMPARISON: 03/11/2024 ACCESSION NUMBER(S): [id number] ORDERING CLINICIAN: GEOVANNA BROTHERS FINDINGS: PA and lateral radiographs of the chest were provided. CARDIOMEDIASTINAL SILHOUETTE: Cardiomediastinal silhouette is normal in size and configuration. LUNGS: No focal consolidation, pleural effusion, or pneumothorax. ABDOMEN: No remarkable upper abdominal findings. BONES: No acute osseous changes. [facility] MMODAL Heriberto Key MD - 09/09/2024 Interpreted By: Heriberto Key, STUDY: XR CHEST 2 VIEWS; 09/09/2024 11:42 am INDICATION: Signs/Symptoms:prekidney recipient transplant evaluation. ,Z01.818 Encounter for other preprocedural examination COMPARISON: 03/11/2024 ACCESSION NUMBER(S): [id number] ORDERING CLINICIAN: GEOVANNA BROTHERS FINDINGS: PA and lateral radiographs of the chest were provided. CARDIOMEDIASTINAL SILHOUETTE: Cardiomediastinal silhouette is normal in size and configuration. LUNGS: No focal consolidation, pleural effusion, or pneumothorax. ABDOMEN: No remarkable upper abdominal findings. BONES: No acute osseous changes. IMPRESSION: 1. No evidence of acute cardiopulmonary process. MACRO: None Signed by: Heriberto Key 09/09/2024 1:45 PM Dictation workstation: [id number] [facility] Work Phone: Radiology Study observation (narrative) [facility] Work Phone: XR Chest 2 ViewsOrdered By: Heriberto Key on 09-09-[address] [facility] Work Phone: XR PANOREXon 09-09-2024 XR PANOREX Normal [facility] XR tomography Mandible Panor amicon 09-09-2024 Edentulous patient. MACRO: None Signed by: Heriberto Key 09/09/2024 1:44 PM Dictation workstation: [id number] MMODAL Interpreted By: Heriberto Norman, STUDY: XR PANOREX; ; 09/09/2024 12:52 pm INDICATION: Signs/Symptoms:Dental Clearance Needed for Kidney Transplant Listing. ,Z01.818 Encounter for other preprocedural examination COMPARISON: None. ACCESSION NUMBER(S): [id number] ORDERING CLINICIAN: GEOVANNA BROTHERS FINDINGS: Orthopantomogram. Edentulous patient. The paranasal sinuses are well pneumatized. No fractures. No dislocations. [facility] MMODAL Heriberto Key MD - 09/09/2024 Interpreted By: Heriberto Key, STUDY: XR PANOREX; ; 09/09/2024 12:52 pm INDICATION: Signs/Symptoms:Dental Clearance Needed for Kidney Transplant Listing. ,Z01.818 Encounter for other preprocedural examination COMPARISON: None. ACCESSION NUMBER(S): [id number] ORDERING CLINICIAN: GEOVANNA BROTHERS FINDINGS: Orthopantomogram. Edentulous patient. The paranasal sinuses are well pneumatized. No fractures. No dislocations. IMPRESSION: Edentulous patient. MACRO: None Signed by: Heriberto Key 09/09/2024 1:44 PM Dictation workstation: [id number] [facility] Work Phone: Radiology Study observation (narrative) [facility] Work Phone: XR tomography Mandible Panor amicOrdered By: Heriberto Key on 09-09-[address] [facility] Work Phone: [facility] THOM CHAPIN ([id number]) 1970 M Date Time Provider Department 08/23/24 RON CORONADO During your visit today, we recorded the following information about you: Argentina Escobar LPN 08/23/2024 3:20 PM Signed Pt calls to report he received a letter stating his insurance will not cover Magnesium Oxide 400 mg. Pt reports they did not give an alternative. Pt reports he really needs this medication and is asking if there is something else comparable. Pt has [employer]. ALLYSSA Padilla Mark D, MD 08/23/2024 5:38 PM Signed I do not know of any replacement for that; he may check with his kidney doctors and see if they have any recommendations MD [employer] Tyler Kathryn, MA 08/23/2024 5:55 PM Signed Pt notified and voiced understanding. Penny Candelario MA Allergies As of Date: 08/23/2024 (No Known Allergies) Date Reviewed: 06/22/2024 Reviewed by: Penny Candelario MA - Fully Assessed Reason for Visit: Medication Problem [65] Prescriptions as of 08/23/2024 - magnesium oxide (MAG-OX) 400 mg (241.3 mg magnesium) tablet Take 1 tablet by mouth two times a day. - hydrALAZINE (APRESOLINE) 100 mg tablet Take 1 tablet by mouth three times a day. - sevelamer carbonate (RENVELA) 800 mg tablet Take 1 tablet by mouth three times a day with meals. - metoprolol tartrate, short acting, (LOPRESSOR) 25 mg tablet Take 1 tablet by mouth two times a day. - Insulin Clio, Disposable, (PEN NEEDLE) 32 gauge x 5/32 Give with each insulin administration once in the am and once in the pm - atorvastatin (LIPITOR) 40 mg tablet Take 1 tablet by mouth daily at bedtime. For cholesterol. - insulin glargine (BASAGLAR KWIKPEN U-100 INSULIN) 100 unit/mL (3 mL) Inject 14 Units subcutaneously every 24 hours. - sildenafil (VIAGRA) 50 mg tablet Take 1 tablet by mouth as needed. Take one hour prior to sexual activity - Insulin Clio, Disposable, (PEN NEEDLE) 32 gauge x 5/32 Inject 1 Each subcutaneously every 24 hours. Give with each insulin administration. - Insulin Clio, Disposable, (UNIFINE PENTIPS PLUS) 31 gauge x 3/16 USE TWICE DAILY DIRECTED FOR INSULIN - Blood-Glucose Sensor (DEXCOM G6 SENSOR) latesha 10 Each as directed. Apply a new Dexcom G 6 Sensor after 10 days of use. - COMBIGAN 0.2-0.5 % ophthalmic solution Instill 1 drop in both eyes twice a day - timoloL maleate (TIMOPTIC) 0.5 % ophthalmic solution Use 1 Drop in both eyes twice daily. - losartan (COZAAR) 50 mg tablet Take 1 tablet by mouth once daily. - aspirin 81 mg chewable tablet Take 1 tablet by mouth once daily. - NOVOFINE AUTOCOVER 30 gauge x 1/3 ndle - Insulin Syringe-Needle U-100 (BD LO-DOSE MICRO-FINE IV) 0.3 mL 28 x 1/2 syrg Inject 1 Each subcutaneously daily at bedtime. Inject once daily (for Lantus) Dx: Diabetes Type I with renal manifestations . 254.43 - glucagon, human recombinant, (GLUCAGON EMERGENCY) 1 mg injection 1 mg as needed. 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*01/21/2005 Essential hypertension [I10] 01/21/2005 GLAUCOMA NOS [H40.9] 01/21/2005 Sterilization [Z30.2] 02/05/2007 07/30/2019 HYPERLIPIDEMIA NEC/NOS [E78.5] 07/06/2008 ANEMIA NOS [D64.9] 09/27/2008 Diabetic Retinopathy [E11.319] 02/22/2010 Diabetic nephropathy (HCC) [E11.21] 02/22/2010 06/16/2019 Depression [F32.A] 06/20/2010 Type 1 diabetes mellitus with diabetic neuropat*11/20/2010 Ulcer of heel and midfoot (HCC) [L97.409] 11/20/2010 07/30/2019 History of osteomyelitis [Z87.39] 01/08/2011 Cellulitis and abscess of foot, except toes [L0*03/25/2011 07/30/2019 Ulcer of other part of foot [L97.509] 04/04/2011 07/30/2019 Gastro-esophageal reflux [K21.9] 04/23/2012 Sinus complaint [R09.89] 04/23/2012 06/16/2019 Alpha 0-thalassemia (HCC) [D56.0] 03/01/2014 ESRD (end stage renal disease) (HCC) [N18.6] 01/08/2016 S/P transmetatarsal amputation of foot, right (*08/17/2019 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*12/24/2022 Secondary hyperparathyroidism of renal origin (*12/24/2022 Encounter Status:Closed by PENNY CANDELARIO on 08/23/24 [facility] HLA PRA CLASS I AB ID, CLASS II AB SCREENon 08-09-2024 HLA CLASS II AB SCREEN,[facility] Comment on above: Order Comment: [facility] performed at[facility] [address] [place] [address] Performed By: #### H [id number] ####ANTHONY HEREDIA S ([id number]) HLA LAB ([facility])[address] [place], [place] [id number] HLA RESULTS See Attached [facility] Comment on above: Order Comment: Test performed at:[facility], [address] [place] [address] Performed By: #### H [id number] ####ANTHONY HEREDIA S ([id number]) HLA LAB ([facility])[address] [place] [id number] HLA-A+B+C (class I) Ab (S) [facility] Comment on above: Order Comment: [facility] performed at:[facility] [address] [place] [address] Performed By: #### H [id number] ####ANTHONYRONNIE OLIVEIRAYAN S ([id number]) HLA LAB ([facility])[address] [place] [address] Barrett 07-06-2024 CNPN Telephone ([facility]) -------- THOM CHAPIN ([id number]) 1970 M Date Time Provider Department 07/06/24 RON CORONADO [facility] During your visit today, we recorded the following information about you: Ron Coronado MD 07/06/2024 9:57 AM Signed Please notify patient that his lab results look good; his A1c is down to 5.8. I would suggest that he decrease his Basaglar dose to 12 units daily to see if this reduces his low sugars at night. MD [employer] Tyler Kathryn, MA 07/06/2024 10:08 AM Signed Pt notified and voiced understanding. Penny Candelario MA Allergies As of Date: 07/06/2024 (No Known Allergies) Date Reviewed: 06/22/2024 Reviewed by: Penny Candelario MA - Fully Assessed Reason for Visit: Results [95] Prescriptions as of 07/06/2024 - magnesium oxide (MAG-OX) 400 mg (241.3 mg magnesium) tablet Take 1 tablet by mouth two times a day. - hydrALAZINE (APRESOLINE) 100 mg tablet Take 1 tablet by mouth three times a day. - sevelamer carbonate (RENVELA) 800 mg tablet Take 1 tablet by mouth three times a day with meals. - metoprolol tartrate, short acting, (LOPRESSOR) 25 mg tablet Take 1 tablet by mouth two times a day. - Insulin Clio, Disposable, (PEN NEEDLE) 32 gauge x 5/32 Give with each insulin administration once in the am and once in the pm - atorvastatin (LIPITOR) 40 mg tablet Take 1 tablet by mouth daily at bedtime. For cholesterol. - insulin glargine (BASAGLAR KWIKPEN U-100 INSULIN) 100 unit/mL (3 mL) Inject 14 Units subcutaneously every 24 hours. - sildenafil (VIAGRA) 50 mg tablet Take 1 tablet by mouth as needed. Take one hour prior to sexual activity - Insulin Clio, Disposable, (PEN NEEDLE) 32 gauge x 5/32 Inject 1 Each subcutaneously every 24 hours. Give with each insulin administration. - Insulin Clio, Disposable, (UNIFINE PENTIPS PLUS) 31 gauge x 3/16 USE TWICE DAILY DIRECTED FOR INSULIN - Blood-Glucose Sensor (DEXCOM G6 SENSOR) latesha 10 Each as directed. Apply a new Dexcom G 6 Sensor after 10 days of use. - COMBIGAN 0.2-0.5 % ophthalmic solution Instill 1 drop in both eyes twice a day - timoloL maleate (TIMOPTIC) 0.5 % ophthalmic solution Use 1 Drop in both eyes twice daily. - losartan (COZAAR) 50 mg tablet Take 1 tablet by mouth once daily. - aspirin 81 mg chewable tablet Take 1 tablet by mouth once daily. - NOVOFINE AUTOCOVER 30 gauge x 1/3 ndle - Insulin Syringe-Needle U-100 (BD LO-DOSE MICRO-FINE IV) 0.3 mL 28 x 1/2 syrg Inject 1 Each subcutaneously daily at bedtime. Inject once daily (for Lantus) Dx: Diabetes Type I with renal manifestations . 254.43 - glucagon, human recombinant, (GLUCAGON EMERGENCY) 1 mg injection 1 mg as needed. 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*01/21/2005 Essential hypertension [I10] 01/21/2005 GLAUCOMA NOS [H40.9] 01/21/2005 Sterilization [Z30.2] 02/05/2007 07/30/2019 HYPERLIPIDEMIA NEC/NOS [E78.5] 07/06/2008 ANEMIA NOS [D64.9] 09/27/2008 Diabetic Retinopathy [E11.319] 02/22/2010 Diabetic nephropathy (HCC) [E11.21] 02/22/2010 06/16/2019 Depression [F32.A] 06/20/2010 Type 1 diabetes mellitus with diabetic neuropat*11/20/2010 Ulcer of heel and midfoot (HCC) [L97.409] 11/20/2010 07/30/2019 History of osteomyelitis [Z87.39] 01/08/2011 Cellulitis and abscess of foot, except toes [L0*03/25/2011 07/30/2019 Ulcer of other part of foot [L97.509] 04/04/2011 07/30/2019 Gastro-esophageal reflux [K21.9] 04/23/2012 Sinus complaint [R09.89] 04/23/2012 06/16/2019 Alpha 0-thalassemia (HCC) [D56.0] 03/01/2014 ESRD (end stage renal disease) (HCC) [N18.6] 01/08/2016 S/P transmetatarsal amputation of foot, right (*08/17/2019 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*12/24/2022 Secondary hyperparathyroidism of renal origin (*12/24/2022 Encounter Status:Closed by PENNY CANDELARIO on 07/06/24 Normal [facility] CBC W Auto Differential pane l (Bld)on 07-03-2024 Basophils (Bld) [#/Vol] 0.04 10*3/uL Normal <0.11 [facility] Comment on above: Order Comment: Speci men Type: BLOOD SPECIMENOrdering Facility: [facility] Address: [address] [place] [address] Performed By: #### 5 7021-8 ####[facility] LABIA [id number] [place] [address] [place] Basophils/100 WBC (Bld) 0.8 % Normal [facility] Comment on above: Order Comment: Speci men Type: BLOOD SPECIMENOrdering Facility: [facility] Address: [address] [place] [address] Performed By: #### 5 7021-8 ####[facility] LABCLIA [id number] [place] [address] [place] Differential cell count method Nom (Bld) Auto Normal [facility] Comment on above: Order Comment: Speci men Type: BLOOD SPECIMENOrdering Facility: [facility] Address: [address] [place] [address] Performed By: #### 5 7021-8 ####[facility] LABCLIA [id number] [place] [address] [place] Eosinophils (Bld) [#/Vol] 0.23 10*3/uL Normal <0.46 [facility] Comment on above: Order Comment: Speci men Type: BLOOD SPECIMENOrdering Facility: [facility] Address: [address] [place] [address] Performed By: #### 5 7021-8 ####[facility] LABCLIA [id number] [place] [address] [place] Eosinophils/100 WBC (Bld) 4.8 % Normal [facility] Comment on above: Order Comment: Speci men Type: BLOOD SPECIMENOrdering Facility: [facility] Address: [address] [place] [address] Performed By: #### 5 7021-8 ####[facility] LABCLIA [id number] [place] [address] [place] Erythrocyte distribution width (RBC) [Ratio] 18.7 % High 11.5-15.0 [facility] Comment on above: Order Comment: Speci men Type: BLOOD SPECIMENOrdering Facility: [facility] Address: [address] [place] [address] Performed By: #### 5 7021-8 ####[facility] LABCLIA [id number] [place] [address] [place] Hematocrit (Bld) [Volume fraction] 37.8 % Low 39.0-51.0 [facility] Comment on above: Order Comment: Speci men Type: BLOOD SPECIMENOrdering Facility: [facility] Address: [address] [place] [address] Performed By: #### 5 7021-8 ####[facility] LABCLIA [id number] [place] [address] [place] Hemoglobin (Bld) [Mass/Vol] 11.4 g/dL Low 13.0-17.0 [facility] Comment on above: Order Comment: Speci men Type: BLOOD SPECIMENOrdering Facility: [facility] Address: [address] [place] [address] Performed By: #### 5 7021-8 ####[facility] LABCLIA [id number] [place] [address] [place] Immature granulocytes (Bld) [#/Vol] 10*3/uL Normal <0.10 [facility] Comment on above: Order Comment: Speci men Type: BLOOD SPECIMENOrdering Facility: [facility] Address: [address] [place] [address] Performed By: #### 5 7021-8 ####[facility] LABCLIA [id number] [place] [address] [place] Immature granulocytes/100 WBC (Bld) 0.2 % Normal [facility] Comment on above: Order Comment: Speci men Type: BLOOD SPECIMENOrdering Facility: [facility] Address: [address] [place] [address] Performed By: #### 5 7021-8 ####[facility] LABCLIA [id number] [place] [address] [place] Lymphocytes (Bld) [#/Vol] 1.10 10*3/uL Normal 1.00-4.00 [facility] Comment on above: Order Comment: Speci men Type: BLOOD SPECIMENOrdering Facility: [facility] Address: [address] [place] [address] Performed By: #### 5 7021-8 ####[facility] LABCLIA [id number] [place] [address] [place] Lymphocytes/100 WBC (Bld) 22.9 % Normal [facility] Comment on above: Order Comment: Speci men Type: BLOOD SPECIMENOrdering Facility: [facility] Address: [address] [place] [address] Performed By: #### 5 7021-8 ####[facility] LABCLIA [id number] [place] [address] [place] MCH (RBC) [Entitic mass] 24.3 pg Low 26.0-34.0 [facility] Comment on above: Order Comment: Speci men Type: BLOOD SPECIMENOrdering Facility: [facility] Address: [address] [place] [address] Performed By: #### 5 7021-8 ####[facility] LABCLIA [id number] [place] [address] [place] MCHC (RBC) [Mass/Vol] 30.2 g/dL Low 30.5-36.0 [facility] Comment on above: Order Comment: Speci men Type: BLOOD SPECIMENOrdering Facility: [facility] Address: [address] [place] [address] Performed By: #### 5 7021-8 ####[facility] LABCLIA [id number] [place] [address] [place] MCV (RBC) [Entitic vol] 80.4 fL Normal 80.0-100.0 [facility] Comment on above: Order Comment: Speci men Type: BLOOD SPECIMENOrdering Facility: [facility] Address: [address] [place] [address] Performed By: #### 5 7021-8 ####[facility] LABIA [id number] [place] [address] [place] Monocytes (Bld) [#/Vol] 0.54 10*3/uL Normal <0.87 [facility] Comment on above: Order Comment: Speci men Type: BLOOD SPECIMENOrdering Facility: [facility] Address: [address] [place] [address] Performed By: #### 5 7021-8 ####[facility] LABCLIA [id number] [place] [address] [place] Monocytes/100 WBC (Bld) 11.3 % Normal [facility] Comment on above: Order Comment: Speci men Type: BLOOD SPECIMENOrdering Facility: [facility] Address: [address] [place] [address] Performed By: #### 5 7021-8 ####[facility] LABCLIA [id number] [place] [address] [place] Neutrophils (Bld) [#/Vol] 2.88 10*3/uL Normal 1.45-7.50 [facility] Comment on above: Order Comment: Speci men Type: BLOOD SPECIMENOrdering Facility: [facility] Address: [address] [place] [address] Performed By: #### 5 7021-8 ####[facility] LABCLIA [id number] [place] [address] [place] Neutrophils/100 WBC (Bld) 60.0 % Normal [facility] Comment on above: Order Comment: Speci men Type: BLOOD SPECIMENOrdering Facility: [facility] Address: [address] [place] [address] Performed By: #### 5 7021-8 ####[facility] LABCLIA [id number] [place] [address] [place] Nucleated RBC (Bld) [#/Vol] 10*3/uL Normal <0.01 [facility] Comment on above: Order Comment: Speci men Type: BLOOD SPECIMENOrdering Facility: [facility] Address: [address] [place] [address] Performed By: #### 5 7021-8 ####[facility] LABCLIA [id number] [place] [address] [place] Nucleated RBC/100 WBC (Bld) [Ratio] 0.0 /100 WBC Normal [facility] Comment on above: Order Comment: Speci men Type: BLOOD SPECIMENOrdering Facility: [facility] Address: [address] [place] [address] Performed By: #### 5 7021-8 ####[facility] LABCLIA [id number] [place] [address] [place] Platelet mean volume (Bld) [Entitic vol] 11.3 fL Normal 9.0-12.7 [facility] Comment on above: Order Comment: Speci men Type: BLOOD SPECIMENOrdering Facility: [facility] Address: [address] [place] [address] Performed By: #### 5 7021-8 ####[facility] LABIA [id number] [place] [address] [place] Platelets (Bld) [#/Vol] 144 10*3/uL Low 150-400 [facility] Comment on above: Order Comment: Speci men Type: BLOOD SPECIMENOrdering Facility: [facility] Address: [address] [place] [address] Performed By: #### 5 7021-8 ####[facility] LABIA [id number] [place] [address] [place] RBC (Bld) [#/Vol] 4.70 10*6/uL Normal 4.20-6.00 [facility] Comment on above: Order Comment: Speci men Type: BLOOD SPECIMENOrdering Facility: [facility] Address: [address] [place] [address] Performed By: #### 5 7021-8 ####[facility] LABIA [id number] [place] [address] [place] WBC (Bld) [#/Vol] 4.80 10*3/uL Normal 3.70-11.00 [facility] Comment on above: Order Comment: Speci men Type: BLOOD SPECIMENOrdering Facility: [facility] Address: [address] [place] [address] Performed By: #### 5 7021-8 ####[facility] LABIA [id number] [place] [address] [place] Comprehensive metabolic 2000 panelon 07-03-2024 Albumin [Mass/Vol] 4.2 g/dL Normal 3.9-4.9 [facility] Comment on above: Order Comment: Speci men Type: BLOOD SPECIMENOrdering Facility: [facility] Address: [address] [place] [address] Performed By: #### 2 4323-8, 66177-4 ####[facility] LABCLIA [id number] [place] [address] [place] ALP [Catalytic activity/Vol] 108 U/L Normal 38-113 [facility] Comment on above: Order Comment: Speci men Type: BLOOD SPECIMENOrdering Facility: [facility] Address: [address] [place] [address] Performed By: #### 2 4323-8, 03236-1 ####[facility] LABCLIA [id number] [place] [address] [place] ALT [Catalytic activity/Vol] 24 U/L Normal 10-54 [facility] Comment on above: Order Comment: Speci men Type: BLOOD SPECIMENOrdering Facility: [facility] Address: [address] [place] [address] Performed By: #### 2 4323-8, 76409-9 ####[facility] LABCLIA [id number] [place] [address] [place] Anion gap [Moles/Vol] 12 mmol/L Normal 8-15 [facility] Comment on above: Order Comment: Speci men Type: BLOOD SPECIMENOrdering Facility: [facility] Address: [address] [place] [address] Performed By: #### 2 4323-8, 85957-9 ####[facility] LABCLIA [id number] [place] [address] [place] AST [Catalytic activity/Vol] 31 U/L Normal 14-40 [facility] Comment on above: Order Comment: Speci men Type: BLOOD SPECIMENOrdering Facility: [facility] Address: [address] [place] [address] Performed By: #### 2 4323-8, 53032-9 ####[facility] LABCLIA [id number] [place] [address] [place] Bilirubin [Mass/Vol] 0.6 mg/dL Normal 0.2-1.3 [facility] Comment on above: Order Comment: Speci men Type: BLOOD SPECIMENOrdering Facility: [facility] Address: [address] [place] [address] Performed By: #### 2 4323-8, 68847-0 ####[facility] LABCLIA [id number] [place] [address] [place] Calcium [Mass/Vol] 9.2 mg/dL Normal 8.5-10.2 [facility] Comment on above: Order Comment: Speci men Type: BLOOD SPECIMENOrdering Facility: [facility] Address: [address] [place] [address] Performed By: #### 2 4323-8, 14209-9 ####[facility] LABCLIA [id number] [place] [address] [place] Chloride [Moles/Vol] 96 mmol/L Low 98-107 [facility] Comment on above: Order Comment: Speci men Type: BLOOD SPECIMENOrdering Facility: [facility] Address: [address] [place] [address] Performed By: #### 2 4323-8, 99677-1 ####[facility] LABCLIA [id number] [place] [address] [place] CO2 [Moles/Vol] 32 mmol/L High 22-30 [facility] Comment on above: Order Comment: Speci men Type: BLOOD SPECIMENOrdering Facility: [facility] Address: [address] [place] [address] Performed By: #### 2 4323-8, 11818-0 ####[facility] LABCLIA [id number] [place] [id number] [place] Creatinine [Mass/Vol] 8.20 mg/dL High 0.73-1.22 [facility] Comment on above: Order Comment: Speci men Type: BLOOD SPECIMENOrdering Facility: [facility] Address: [address] [place] [address] Performed By: #### 2 4323-8, 66766-2 ####[facility] LABIA [id number] [place] [address] [place] Creatinine and Glomerular filtration rate.predicted panel (S/P/Bld) 7 mL/min/1.73m??? Low >=60 [facility] Comment on above: Order Comment: Vickie dang Type: BLOOD SPECIMENOrdering Facility: [facility] Address: [address] [place] [address] Result Comment: Cleopatra mated Glomerular Filtration Rate (eGFR) is calculated using the 2020 CKD-EPI creatinine equation. This equation utilizes serum creatinine, sex, and age as parameters. The creatinine assay has traceable calibration to isotope dilution-mass spectrometry. Refer to KDIGO guidelines for clinical interpretation. In patients with unstable renal function, e.g. those with acute kidney injury, the eGFR may not accurately reflect actual GFR. Performed By: #### 2 4323-8, 29716-1 ####[facility] LABIA [id number] [place] [address] [place] Glucose [Mass/Vol] 117 mg/dL High 74-99 [facility] Comment on above: Order Comment: Speci men Type: BLOOD SPECIMENOrdering Facility: [facility] Address: [address] [place] [address] Result Comment: The [place] Diabetes Association (ADA) provides guidance for cutoff values for fasting glucose and random glucose. The ADA defines fasting as no caloric intake for at least 8 hours. Fasting plasma glucose results between 100 to 125 mg/dL indicate increased risk for diabetes (prediabetes). Fasting plasma glucose results greater than or equal to 126 mg/dL meet the criteria for diagnosis of diabetes. In the absence of unequivocal hyperglycemia, results should be confirmed by repeat testing. In a patient with classic symptoms of hyperglycemia or hyperglycemic crisis, random plasma glucose results greater than or equal to 200 mg/dL meet the criteria for diagnosis of diabetes. Reference: Standards of Medical Care in Diabetes 2016, [place] Diabetes Association. Diabetes Care. 2016.39(Suppl 1). Performed By: #### 2 4323-8, 00316-1 ####[facility] LABCLIA [id number] [place] [address] [place] Potassium [Moles/Vol] 4.9 mmol/L Normal 3.7-5.1 [facility] Comment on above: Order Comment: Speci men Type: BLOOD SPECIMENOrdering Facility: [facility] Address: [address] [place] [address] Performed By: #### 2 4323-8, 45761-6 ####[facility] LABCLIA [id number] [place] [address] [place] Protein [Mass/Vol] 7.3 g/dL Normal 6.3-8.0 [facility] Comment on above: Order Comment: Speci men Type: BLOOD SPECIMENOrdering Facility: [facility] Address: [address] [place] [address] Performed By: #### 2 4323-8, 58093-0 ####[facility] LABCLIA [id number] [place] [address] [place] Sodium [Moles/Vol] 140 mmol/L Normal 136-144 [facility] Comment on above: Order Comment: Speci men Type: BLOOD SPECIMENOrdering Facility: [facility] Address: [address] [place] [address] Performed By: #### 2 4323-8, 50827-9 ####[facility] LABCLIA [id number] [address] [address] [place] Urea nitrogen [Mass/Vol] 34 mg/dL High 9-24 [facility] Comment on above: Order Comment: Vickie dang Type: BLOOD SPECIMENOrdering Facility: [facility] Address: [address] [place] [address] Performed By: #### 2 4323-8, 93475-2 ####[facility] LABCLIA [id number] [address] OF [place] HbA1c (Bld)on 07-03-2024 Average glucose Estimated from glycated hemoglobin (Bld) [Mass/Vol] 120 mg/dL Normal [facility] Comment on above: Order Comment: Vickie dang Type: BLOOD SPECIMENOrdering Facility: [facility] Address: [address] [place] [address] Result Comment: eAG: (Estimated average glucose) is a calculated value from HgbA1c and is floor representative of the average blood glucose level in the last 2-3 month period. Performed By: #### 5 5454-3 ####[facility] LABCLIA [id number] [address] STATES OF [facility] HbA1c (Bld) [Mass fraction] 5.8 % High 4.3-5.6 [facility] Comment on above: Order Comment: Vickie dang Type: BLOOD SPECIMENOrdering Facility: [facility] Address: [address] [place] [address] Result Comment: Amer [place] Diabetes Association guidelines indicate that patients with HgbA1c in the range 5.7-6.4% are at increased risk for development of diabetes, and intervention by lifestyle modification may be beneficial. HgbA1c greater or equal to 6.5% is considered diagnostic of diabetes. Performed By: #### 5 5454-3 ####[facility] LABCLIA [id number] [place] [address] [place] Lipid 1996 panelon Cholesterol [Mass/Vol] 95 mg/dL Normal <200 [facility] Comment on above: Order Comment: Vickie alton Type: BLOOD SPECIMENOrdering Facility: [facility] Address: [address] [place] [address] Result Comment: <200 mg/dL, Desirable 200-239 mg/dL, Borderline high >239 mg/dL, High Performed By: #### 2 4323-8, 55098-0 ####[facility] LABCLIA [id number] [address] [place] Cholesterol in HDL [Mass/Vol] 47 mg/dL Normal >39 [facility] Comment on above: Order Comment: Vickie men Type: BLOOD SPECIMENOrdering Facility: [facility] Address: [address] [place] [address] Result Comment: 40-5 9 mg/dL, Acceptable >59 mg/dL, High: Negative risk factor for coronary heart disease <40 mg/dL, Low: Positive risk factor for coronary heart disease Performed By: #### 2 4323-8, 03937-3 ####[facility] LABCLIA [id number] [address] Cholesterol in LDL [Mass/Vol] 38 mg/dL Normal <100 [facility] Comment on above: Order Comment: Vickie dang Type: BLOOD SPECIMENOrdering Facility: [facility] Address: [address] [place] [address] Result Comment: <100 mg/dL, Optimal 100-129 mg/dL, Near optimal/above optimal 130-159 mg/dL, Borderline high 160-189 mg/dL, High >189 mg/dL, Very high Secondary prevention optimal LDL Cholesterol levels are recommended to be < 70 mg/dL Performed By: #### 2 4323-8, 50777-4 ####[facility] LABCLIA [id number] [address] OF [facility] Cholesterol in LDL/Cholesterol in HDL [Mass ratio] 0.81 {ratio} Normal <2.54 [facility] Comment on above: Order Comment: Kaytigre dang Type: BLOOD SPECIMENOrdering Facility: [facility] Address: [address] [place] [address] Result Comment: Refe rence: 1. National Cholesterol Education Program ATP III Guideline At-A-Glance Quick Desk Reference: National Heart, Lung, and Blood [place]. National Institutes of Health. 2001: NIH Publication No. 01-3305. 2. An International Atherosclerosis Society position paper: global recommendations for the management of dyslipidemia: executive summary, Atherosclerosis. 2014: 232(2):410-413. Performed By: #### 2 4323-8, 91103-4 ####[facility] LABCLIA [id number] [place] [address] [place] Cholesterol in VLDL [Mass/Vol] 10 mg/dL Normal <30 [facility] Comment on above: Order Comment: Speci men Type: BLOOD SPECIMENOrdering Facility: [facility] Address: [address] [place] [address] Performed By: #### 2 4328, ####[facility] LABCLIA [id number] [place] [address] [place] Cholesterol non HDL [Mass/Vol] 48 mg/dL Normal <130 [facility] Comment on above: Order Comment: Kayi men Type: BLOOD SPECIMENOrdering Facility: [facility] Address: [address] [place] [address] Result Comment: <130 mg/dL, Optimal 130-159 mg/dL, Near optimal/above optimal 160-189 mg/dL, Borderline high 190-219 mg/dL, High >219 mg/dL, Very high Secondary prevention optimal non HDL Cholesterol levels are recommended to be <100 mg/dL Performed By: #### 2 4323-01, ####[facility] LABCLIA [id number] [place] [address] [place] Cholesterol.total/Cho lesterol in HDL [Mass ratio] 2.02 {ratio} Normal <5.10 [facility] Comment on above: Order Comment: Kayi men Type: BLOOD SPECIMENOrdering Facility: [facility] Address: [address] [place] [address] Performed By: #### 2 4323-8, 00724-5 ####[facility] LABCLIA [id number] [place] [address] [place] FASTING TIME 10 hrs Normal [facility] Comment on above: Order Comment: Speci men Type: BLOOD SPECIMENOrdering Facility: [facility] Address: [address] [place] [address] Performed By: #### 2 4323-8, 60821-4 ####[facility] LABCLIA [id number] [place] [address] [place] Triglyceride [Mass/Vol] 49 mg/dL Normal <150 [facility] Comment on above: Order Comment: Speci men Type: BLOOD SPECIMENOrdering Facility: [facility] Address: [address] [place] [address] Result Comment: <150 mg/dL, Normal 150-199 mg/dL, Borderline high 200-499 mg/dL, High >499 mg/dL, Very high Performed By: #### 2 4323-8, 25350-3 ####[facility] LABCLIA [id number] [place] [address] [place] CNOVon 06-22-2024 CNOV Office Visit (FAMPWS ) -------- THOM CHAPIN ([id number]) 1970 M Date Time Provider Department 06/22/24 10:40 AM RON CORONADO FAMPWS During your visit today, we recorded the following information about you: Pulse Respiration Blood pressure Weight 84/minute 16/minute 122/72 66.6 kg Ron Coronado MD 06/22/2024 3:36 PM Signed Chief Complaint Patient presents with: 6 Month Exam HPI Thom Chapin is a 53 year old male who presents here today for 6 month follow up. Has 4 grandchildren ranging in ages from 5 to 2. No bowel, Gi, or urinary issues. Uses viagra prn ED. Depression/TEMO: Stable. Anemia: Stable, monitored with labs. CKD: Has dialysis every Friday, Friday and Friday. Follows with Lead Nurse Dr. Wells every 6 months. On current regimen of Renvella 800 mg 2 tab po TID and 1-2 tabs with a snack. He is on the waiting list for kidney transplant, he has completed all the testing and requirements for this, has been waiting about 3 months. Lipid: Taking Lipitor 40 mg daily and ASA 81 mg daily. Tolerating well. Tires to watch diet and exercises about an hour 7 days a week. 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 HTN: Is checking BP at home with readings in AM 130/80 to 120/70. BP drops while at dialysis. Seems to be higher when he is at dialysis. Taking Lopressor 25 mg 1 pill BID, Mag-Ox 400 mg 1 pill BID, Hydralazine 100 mg 1 pill TID and Losartan 50 mg daily. Denies any chest pains, dizziness, or SOB. Follows with Cardio Dr. Tesfaye. DM: Checking BS 3 x a day with Dexcom CGM, FBS 130-150. Reading at this current time is 150. Tries to eat between 8 pm-9 pm he tries to eat something so he doesn't bottom out. If he doesn't eat before bed he will bottom out around 3 AM. Neuropathy sx in feet, not any worse. Current regimen of Basaglar 14 units daily which was decreased last visit as pt was having hypoglycemic episodes. Following with Dr. Servin, Time Clerk twice a month. Follows with Dr. Roth and Dr. Shafer for eye exams. Past medical history, appointments, medications, allergies reviewed. Previous Medical History PAST MEDICAL HISTORY Diagnosis Date Cellulitis right foot CKD (chronic kidney disease) stage 4, GFR 15-29 ml/min ([facility]) Depression 2009 DIABETES TYPE I W RENAL MANIF-UNCONTRLLD 01/21/2005 Dialysis: ASIA Castro Diabetic nephropathy ([facility]) 02/22/2010 GLAUCOMA NOS 01/21/2005 Hyperlipidemia HYPERTENSION NOS 01/21/2005 Microcytic anemia NSTEMI (non-ST elevated myocardial infarction) ([facility]) Proteinuria 01/21/2005 PVD (peripheral vascular disease) ([facility]) Suicide attempt ([facility]) November 2009 [facility]osp [facility]> Previous Surgical History PAST SURGICAL HISTORY Procedure Laterality Date AMPUTATION (SPECIFY BODY PART) HX Right 12/2015 5 toes ARTHROSCOPY KNEE DIAGNOSTIC W/WO SYNOVIAL BX SPX 1987 Arthroscopy, knee CC PCI CORONARY INTERVENT 10/19/2018 proximal LAD F COLONOS W/REM POLYP SNARE 03/11/2022 PAST SURGICAL HISTORY OF Right 05/12/2018 Debridement of bone on plantar R foot PAST SURGICAL HISTORY OF Right 2017 Amputation Right Foot VASECTOMY UNI/BI SPX W/POSTOP SEMEN EXAMS 02/14/2007 Family History FAMILY HISTORY Problem Relation Age of Onset Diabetes Mother Ischemic Heart Disease Mother Alcohol/Drug Brother Hypertension Maternal Grandmother Ischemic Heart Disease Sister Patient Allergies ALLERGIES No Known Allergies Current Medications Current Outpatient Medications on File Prior to Visit Medication Sig hydrALAZINE (APRESOLINE) 100 mg tablet Take 1 tablet by mouth three times a day. sevelamer carbonate (RENVELA) 800 mg tablet Take 1 tablet by mouth three times a day with meals. metoprolol tartrate, short acting, (LOPRESSOR) 25 mg tablet Take 1 tablet by mouth two times a day. Insulin Clio, Disposable, (PEN NEEDLE) 32 gauge x 5/32 Give with each insulin administration once in the am and once in the pm atorvastatin (LIPITOR) 40 mg tablet Take 1 tablet by mouth daily at bedtime. For cholesterol. insulin glargine (BASAGLAR KWIKPEN U-100 INSULIN) 100 unit/mL (3 mL) Inject 14 Units subcutaneously every 24 hours. sildenafil (VIAGRA) 50 mg tablet Take 1 tablet by mouth as needed. Take one hour prior to sexual activity magnesium oxide (MAG-OX) 400 mg (241.3 mg magnesium) tablet Take 1 tablet by mouth two times a day. Insulin Clio, Disposable, (PEN NEEDLE) 32 gauge x 5/32 Inject 1 Each subcutaneously every 24 hours. Give with each insulin administration. Insulin Clio, Disposable, (UNIFINE PENTIPS PLUS) 31 gauge x 3/16 USE TWICE DAILY DIRECTED FOR INSULIN Blood-Glucose Sensor (DEXCOM G6 SENSOR) latesha 10 Each as directed. Apply a new Dexcom G 6 Sensor after 10 days of use. COMBIGAN 0.2-0.5 % ophthalmic solution Instill 1 drop in both eyes twice a day timoloL maleate (TIMOPTIC) 0.5 % ophthalmic solution Use 1 Sulaiman (more content not included)... Normal [facility] FREEZE CROSSMATCHon 06-18-19 25 FREEZE CROSSMATCH Frozen Sample Normal [facility] Comment on above: Order Comment: Test performed at:[facility], [address] [place], [place] [id number] performed at:[facility], [address] [place], [place] [address] Performed By: #### H LFXM ####ANTHONY OLIVEIRASPAN S ([id number]) HLA LAB ([facility])[address] [place], [place] [address] HLA TRANSPLANT ANTIBODY PANE Jc 05-10-2024 HLA RESULTS See Attached Normal [facility] Comment on above: Order Comment: Test performed at:[facility], [address] [place] [address] Performed By: #### H LANTI ####ANTHONY YAN S ([id number]) HLA LAB ([facility])[address] [place] [id number] HLA-A+B+C (class I) Ab (S) [facility] Comment on above: Order Comment: Test performed at:[facility], [address] [place], [place] [address] Performed By: #### H LANTI ####ANTHONY YAN S ([id number]) HLA LAB ([facility])[address] [place] [address] HLA-DP+DQ+DR (class II) Ab (S) [facility] Comment on above: Order Comment: Test performed at:[facility] LaboratoryJ[facility], [address] [place], [place] [address] Performed By: #### H LANTI ####ANTHONY YAN S ([id number]) HLA LAB ([facility])[address] [place] [id number] Miscellaneous Lab Procedureo n 04-14-2024 [facility] LAB TEST Normal [facility] Comment on above: Order Comment: SER/F Z [id number] HIPA SER/FZ Result Comment: TEST RESULTS LIMITS Heparin Induced Platelet Ab 0.103 OD 0.000-0.400 TESTING PERFORMED AT [facility]. ORIGINAL REPORT ON FILE IN LAB CONTAINS ADDITIONAL TEST SITE INFORMATION. Performed By: #### L 801.1541 #### [facility] [address] [place], [address] HLA TRANSPLANT ANTIBODY PANE Jc 04-06-2024 HLA RESULTS See Attached Normal [facility] Comment on above: Order Comment: Test performed at:[facility] LaboratoryMarvinSt[facility], [address] [place] [address] Performed By: #### H LANTI ####ANTHONY HEREDIA S ([id number]) HLA LAB ([facility])[address] [place], [place] [address] HLA-A+B+C (class I) Ab (S) [facility] Comment on above: Order Comment: Test performed at:[facility] LaboratoryMarvinSt. [facility], [address] [place] [address] Performed By: #### H LANTI ####ANTHONY HEREDIA S ([id number]) HLA LAB ([facility])[address] [place] [address] HLA-DP+DQ+DR (class II) Ab (S) [facility] Comment on above: Order Comment: Test performed at:[facility] Immunogen[facility] LaboratoryW.Jaxson [facility], [address] [place] [address] Performed By: #### H RASHEED ####ANTHONY Dunbar ([id number]) HLA LAB ([place])[address] [place] [address] Barrett 03-30-2024 [facility]NPN Tele[facility] -------- THOM CHAPIN ([id number]) 1970 M Date Time Provider Department 03/30/24 RON CORONADO [facility] During your visit today, we recorded the following information about you: Shanika Daugherty RN 03/30/2024 1:42 PM S[address] Office of [facility] calling to confirm PCP OV date. Shanika Daugherty RN Allergies As of Date: 03/30/2024 (No Known Allergies) Date Reviewed: 08/12/2023 Reviewed by: Penny Candelario MA - Fully Assessed Reason for Visit: Patient Question [6187] Prescriptions as of 03/30/2024 - metoprolol tartrate, short acting, (LOPRESSOR) 25 mg tablet Take 1 tablet by mouth two times a day. - Insulin Clio, Disposable, (PEN NEEDLE) 32 gauge x 5/32 Give with each insulin administration once in the am and once in the pm - atorvastatin (LIPITOR) 40 mg tablet Take 1 tablet by mouth daily at bedtime. For cholesterol. - insulin glargine (BASAGLAR KWIKPEN U-100 INSULIN) 100 unit/mL (3 mL) Inject 14 Units subcutaneously every 24 hours. - sildenafil (VIAGRA) 50 mg tablet Take 1 tablet by mouth as needed. Take one hour prior to sexual activity - magnesium oxide (MAG-OX) 400 mg (241.3 mg magnesium) tablet Take 1 tablet by mouth two times a day. - Insulin Clio, Disposable, (PEN NEEDLE) 32 gauge x /32 Inject 1 Each subcutaneously every 24 hours. Give with each insulin administration. - hydrALAZINE (APRESOLINE) 100 mg tablet Take 1 tablet by mouth three times a day. - sevelamer carbonate (RENVELA) 800 mg tablet TAKE 1 TABLET BY MOUTH 3 TIMES DAILY *EMERGENCY REFILL* - Insulin Clio, Disposable, (UNIFINE PENTIPS PLUS) 31 gauge x 3/16 USE TWICE DAILY DIRECTED FOR INSULIN - Blood-Glucose Sensor (DEXCOM G6 SENSOR) latesha 10 Each as directed. Apply a new Dexcom G 6 Sensor after 10 days of use. - COMBIGAN 0.2-0.5 % ophthalmic solution Instill 1 drop in both eyes twice a day - timoloL maleate (TIMOPTIC) 0.5 % ophthalmic solution Use 1 Drop in both eyes twice daily. - losartan (COZAAR) 50 mg tablet Take 1 tablet by mouth once daily. - aspirin 81 mg chewable tablet Take 1 tablet by mouth once daily. - latanoprost (XALATAN) 0.005 % ophthalmic solution Use 1 Drop in both eyes daily at bedtime. - NOVOFINE AUTOCOVER 30 gauge x 1/3 ndle - Insulin Syringe-Needle U-100 (BD LO-DOSE MICRO-FINE IV) 0.3 mL 28 x 1/2 syrg Inject 1 Each subcutaneously daily at bedtime. Inject once daily (for Lantus) Dx: Diabetes Type I with renal manifestations . 254.43 - glucagon, human recombinant, (GLUCAGON EMERGENCY) 1 mg injection 1 mg as needed. ADMINISTER FOR LOW BLOOD SUGAR - IF UNCONSCIOUS OR UNABLE TO SWALLOW Problem List As Of Date 03/30/2024 Noted Resolved Type 1 diabetes mellitus with chronic kidney di*01/21/2005 Essential hypertension [I10] 01/21/2005 GLAUCOMA NOS [H40.9] 01/21/2005 Sterilization [Z30.2] 02/05/2007 07/30/2019 HYPERLIPIDEMIA NEC/NOS [E78.5] 07/06/2008 ANEMIA NOS [D64.9] 09/27/2008 Diabetic Retinopathy [E11.319] 02/22/2010 Diabetic nephropathy (HCC) [E11.21] 02/22/2010 06/16/2019 Depression [F32.A] 06/20/2010 Type 1 diabetes mellitus with diabetic neuropat*11/20/2010 Ulcer of heel and midfoot (HCC) [L97.409] 11/20/2010 07/30/2019 History of osteomyelitis [Z87.39] 01/08/2011 Cellulitis and abscess of foot, except toes [L0*03/25/2011 07/30/2019 Ulcer of other part of foot [L97.509] 04/04/2011 07/30/2019 Gastro-esophageal reflux [K21.9] 04/23/2012 Sinus complaint [R09.89] 04/23/2012 06/16/2019 Alpha 0-thalassemia (HCC) [D56.0] 03/01/2014 ESRD (end stage renal disease) ([facility]) [N18.6] 01/08/2016 S/P transmetatarsal amputation of foot, right (*08/17/2019 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*12/24/2022 Secondary hyperparathyroidism of renal origin (*12/24/2022 Encounter Status:Closed by SHANIKA DAUGHERTY on 03/30/24 Normal [facility] XR CHEST 2 VIEWSon 4 XR CHEST 2 VIEWS Normal [facility] XR Chest 2 Viewson 4 1. No acute cardiopulmonary process. MACRO: None. Signed by: Kiara Pham 03/11/2024 8:11 PM Dictation workstation: [id number] MMODAL Interpreted By: Kiara Pham, STUDY: Chest, 2 views. INDICATION: Signs/Symptoms:prekidney recipient transplant evaluation. COMPARISON: None. ACCESSION NUMBER(S): [id number] ORDERING CLINICIAN: ELI QUEZADA FINDINGS: The cardiomediastinal silhouette size is within normal limits. There is no focal consolidation, edema or pneumothorax. No sizeable pleural effusion. MMODAL Kiara Pham MD - 03/11/2024 Interpreted By: Kiara Pham, STUDY: Chest, 2 views. INDICATION: Signs/Symptoms:prekidney recipient transplant evaluation. COMPARISON: None. ACCESSION NUMBER(S): [id number] ORDERING CLINICIAN: ELI QUEZADA FINDINGS: The cardiomediastinal silhouette size is within normal limits. There is no focal consolidation, edema or pneumothorax. No sizeable pleural effusion. IMPRESSION: 1. No acute cardiopulmonary process. MACRO: None. Signed by: Kiara Pham 03/11/2024 8:11 PM Dictation workstation: [id number] [facility] Work Phone: Radiology Study observation (narrative) [facility] Work Phone: XR Chest 2 ViewsOrdered By: Kiara Pham on 03-11-[address] [facility] Work Phone: CNCOon 02-12-2024 CNCO Letter Text Normal [facility] CNCO Clinical report post ed in error Void Comment: #3 02/12/24 Letter Text Normal [facility] CNPNon 01-13-2024 CNPN Telephone (FAMPWS) -------- THOM CHAPIN ([id number]) 1970 M Date Time Provider Department 01/13/24 RON CORONADO [facility] During your visit today, we recorded the following information about you: Teressa Blanco MA 01/13/2024 10:23 AM Signed Type of form: Medical Necessity for CGMS Form received via fax When form is completed, Fax form to [phone] Form has been forwarded to Physician Desk: ROLA Romero Mark D, MD 01/13/2024 3:31 PM Signed Done MD [employer] Tyler Kathryn, MA 01/13/2024 4:14 PM Signed faxed. Penny Candelario MA Allergies As of Date: 01/13/2024 (No Known Allergies) Date Reviewed: 08/12/2023 Reviewed by: Penny Candelario MA - Fully Assessed Reason for Visit: Forms [913] Cmt: [facility] Prescriptions as of 01/13/2024 - atorvastatin (LIPITOR) 40 mg tablet Take 1 tablet by mouth daily at bedtime. For cholesterol. - insulin glargine (BASAGLAR KWIKPEN U-100 INSULIN) 100 unit/mL (3 mL) Inject 14 Units subcutaneously every 24 hours. - sildenafil (VIAGRA) 50 mg tablet Take 1 tablet by mouth as needed. Take one hour prior to sexual activity - magnesium oxide (MAG-OX) 400 mg (241.3 mg magnesium) tablet Take 1 tablet by mouth two times a day. - Insulin Clio, Disposable, (PEN NEEDLE) 32 gauge x 5/32 Inject 1 Each subcutaneously every 24 hours. Give with each insulin administration. - hydrALAZINE (APRESOLINE) 100 mg tablet Take 1 tablet by mouth three times a day. - sevelamer carbonate (RENVELA) 800 mg tablet TAKE 1 TABLET BY MOUTH 3 TIMES DAILY *EMERGENCY REFILL* - metoprolol tartrate, short acting, (LOPRESSOR) 25 mg tablet take 1 tablet by mouth twice daily - Insulin Clio, Disposable, (UNIFINE PENTIPS PLUS) 31 gauge x 3/16 USE TWICE DAILY DIRECTED FOR INSULIN - Insulin Clio, Disposable, (PEN NEEDLE) 32 gauge x 5/32 Give with each insulin administration once in the am and once in the pm - Blood-Glucose Sensor (DEXCOM G6 SENSOR) latesha 10 Each as directed. Apply a new Dexcom G 6 Sensor after 10 days of use. - COMBIGAN 0.2-0.5 % ophthalmic solution Instill 1 drop in both eyes twice a day - timoloL maleate (TIMOPTIC) 0.5 % ophthalmic solution Use 1 Drop in both eyes twice daily. - losartan (COZAAR) 50 mg tablet Take 1 tablet by mouth once daily. - aspirin 81 mg chewable tablet Take 1 tablet by mouth once daily. - latanoprost (XALATAN) 0.005 % ophthalmic solution Use 1 Drop in both eyes daily at bedtime. - NOVOFINE AUTOCOVER 30 gauge x 1/3 ndle - Insulin Syringe-Needle U-100 (BD LO-DOSE MICRO-FINE IV) 0.3 mL 28 x 1/2 syrg Inject 1 Each subcutaneously daily at bedtime. Inject once daily (for Lantus) Dx: Diabetes Type I with renal manifestations . 254.43 - glucagon, human recombinant, (GLUCAGON EMERGENCY) 1 mg injection 1 mg as needed. ADMINISTER FOR LOW BLOOD SUGAR - IF UNCONSCIOUS OR UNABLE TO SWALLOW Problem List As Of Date 01/13/2024 Noted Resolved Type 1 diabetes mellitus with chronic kidney di*01/21/2005 Essential hypertension [I10] 01/21/2005 GLAUCOMA NOS [H40.9] 01/21/2005 Sterilization [Z30.2] 02/05/2007 07/30/2019 HYPERLIPIDEMIA NEC/NOS [E78.5] 07/06/2008 ANEMIA NOS [D64.9] 09/27/2008 Diabetic Retinopathy [E11.319] 02/22/2010 Diabetic nephropathy (HCC) [E11.21] 02/22/2010 06/16/2019 Depression [F32.A] 06/20/2010 Type 1 diabetes mellitus with diabetic neuropat*11/20/2010 Ulcer of heel and midfoot (HCC) [L97.409] 11/20/2010 07/30/2019 History of osteomyelitis [Z87.39] 01/08/2011 Cellulitis and abscess of foot, except toes [L0*03/25/2011 07/30/2019 Ulcer of other part of foot [L97.509] 04/04/2011 07/30/2019 Gastro-esophageal reflux [K21.9] 04/23/2012 Sinus complaint [R09.89] 04/23/2012 06/16/2019 Alpha 0-thalassemia (HCC) [D56.0] 03/01/2014 ESRD (end stage renal disease) (HCC) [N18.6] 01/08/2016 S/P transmetatarsal amputation of foot, right (*08/17/2019 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*12/24/2022 Secondary hyperparathyroidism of renal origin (*12/24/2022 Encounter Status:Closed by PENNY CANDELARIO on 01/13/24 Normal [facility] Operative Reporton 4 Operative Report [facility] Medical Records Department [address] [place] [address] Operative Report 01/08/24 0921 MR#: [id number] Acct: [id number] Name: SAMARATHOM Rep #: [id number] : 1970 53 From: Jenaro Leggett MD PCP: Dr. Ron Coronado MD Status:[facility] Location: [facility] Report of Operation Date of Procedure: 01/08/24 Pre-Operative Diagnosis: fistula stenosis Post-Operative Diagnosis: same Surgery/Procedure Performed:: fistulagram, angioplasty proximal fistula Surgeon: Jenaro Leggett Type of Anesthesia: Local and Sedation,Conscious Estimated Blood Loss (mL): 7 Description of Procedure: HPI: Patient is a 53-year-old male with end-stage renal disease currently on dialysis via a left radiocephalic fistula that was created several years prior. He has had several fistulogram's with intervention over the years most recently approximately 3 years ago for a proximal stenosis. He presents now for a fistulogram due to decreased flow volumes on his dialysis sessions. Description of procedure: Upon obtaining informed consent and verification correct patient procedure site patient was taken to the Chopper Operator was positioned prepped and draped in usual sterile fashion. Timeout was performed, sedation administered with Versed and fentanyl. Skin overlying the fistula was anesthetized 1% lidocaine the vessel accessed under ultrasound guidance in retrograde fashion towards the arterial anastomosis with a micropuncture needle and wire. This was then exchanged for a 6 Spanish sheath through which hand-injection subtraction angiography was performed revealing satisfactory positioning no extravasation or dissection. Through the sheath a angled Glidewire was advanced and a short KMP catheter positioned in the proximal fistula at the anastomosis. Subtraction angiography was performed from this position which revealed greater than 50% stenosis tandem lesions just beyond the anastomosis with an otherwise satisfactory appearing arteriovenous anastomosis and radial inflow artery. Patient was then heparinized and allowed to circulate for 3 minutes after which time an 014 wire was advanced and the KMP catheter exchanged for a [employer] AngioSculpt balloon 6 mm x 40 which was advanced in the position inflated for multiple inflations across the area of stenosis. On the balloon was withdrawn the catheter was readvanced and repeat angiography confirmed satisfactory response with no residual stenosis. A 6 x 40 [employer] [place] paclitaxel coated balloon was then advanced and inflated to nominal for 3 minutes covering the entirety of the lesion. Balloon was then deflated withdrawn and the catheter readvanced with completion angiography confirming satisfactory response with no residual stenosis and no extravasation or dissection. The cath was then withdrawn and through the sheath subtraction angiography of the remainder of the venous outflow was performed which revealed known occlusion of the cephalic outflow vein with primary outflow via the deep system and basilic vein with widely patent axillary, subclavian, innominate veins as well as a widely patent superior vena cava. Nylon suture was then placed and secured and the catheter withdrawn followed by 5 minutes of manual pressure with satisfactory stasis noted. Patient was then taken to recovery room for bedrest prior to discharge to home. 01/08/24 1243 Cosigner Signature (if applicable): CC: Dr. Jenaro Leggett MD; Dr. Ron Coronado MD Signed Normal [facility] CNCOon 01-01-2024 CNCO Letter Text Normal [facility] Basic metabolic 2000 panelon 12-08-2023 Anion gap [Moles/Vol] 21 mmol/L High 10 - 20 mmol/L [facility] Calcium [Mass/Vol] 9.0 mg/dL 8.6 - 10. 6 mg/dL [facility] Chloride [Moles/Vol] 93 mmol/L Low 98 - 10 7 mmol/L [facility] CO2 [Moles/Vol] 28 mmol/L 21 - 32 mmol/L [facility] Creatinine [Mass/Vol] 12.15 mg/dL High 0.50 - 1.30 mg/dL [facility] GFR/1.73 sq M.predicted among non-blacks MDRD (S/P/Bld) [Vol rate/Area] 4 mL/min/{1.73_m2} Low - PINF [facility] Comment on above: Calculations of cleopatra mated GFR are performed using the 2020 CKD-EPI Study Refit equation without the race variable for the IDMS-Traceable creatinine methods. https://jasn.asnjournals.org/content/early/ASN.080441 6555 Glucose [Mass/Vol] 223 mg/dL High 74 - 99 mg/dL [facility] Interpretation and review of laboratory results Abnormal [facility] Potassium [Moles/Vol] 5.1 mmol/L 3.5 - 5.3 mmol/L [facility] Sodium [Moles/Vol] 137 mmol/L 136 - 145 mmol/L [facility] Urea nitrogen [Mass/Vol] 86 mg/dL High 6 - 23 mg/dL [facility] CBC panel Auto (Bld)on 12-07 Erythrocyte distribution width (RBC) [Ratio] 17.2 % High 11.5 - 14.5 % [facility] Hematocrit (Bld) [Volume fraction] 37.4 % Low 41.0 - 52.0 % [facility] Hemoglobin (Bld) [Mass/Vol] 11.7 g/dL Low 13.5 - 17.5 g/dL [facility] Interpretation and review of laboratory results Abnormal [facility] MCH (RBC) [Entitic mass] 23.6 pg Low 26.0 - 34.[address] [facility] MCHC (RBC) [Mass/Vol] 31.3 g/dL Low 32.0 - 36.0 g/dL [facility] MCV (RBC) [Entitic vol] 76 fL Low 80 - [address] [facility] Nucleated RBC/100 WBC (Bld) [Ratio] 0.0 % [facility] Platelets (Bld) [#/Vol] 106 10*3/uL Low [facility] RBC (Bld) [#/Vol] 4.95 10*6/uL [facility] WBC (Bld) [#/Vol] 4.7 10*3/uL [facility] MR/BMS.Fide 12-04-2023 MR/BMS.TIGRE [facility] Vascular Surgery [address] [place] [address]. [address] [place] [address] OFFICE VISIT Date of Service: 12/04/23 MR#: [id number] Acct: [id number] Name: THOM CHAPIN Rep #: [id number] : 1970 Provider: LILLY Will Age/Sex: 53/M Location: [facility] Status: Signed Intake Vital Signs 03/07/23 09:23 12/04/23 10:07 Height 6 ft 3 in Weight: 153 lb BP 139/82 H Blood Pressure Location Rt brachial Respiration 16 Pulse 77 Pulse Source Monitor Temp 97.6 F L Temp Source Temporal Pulse Oximetry (%) 99 Oxygen Delivery Method room air Intake Visit Reasons: CONSULT-DECREASED ACCESS FLOW TEST Chief Complaint: check fistula Is patient in pain?: No Allergies calcium (From PhosLo) Allergy (Verified 12/04/23 10:08) Hives Medications ???Medication ???Instructions ???Recorded ???Confirmed ???Type hydralazine 100 mg tablet 100 mg PO TID hypertentsion 07/06/17 12/04/23 History latanoprost 0.005 % eye drops 1 drp EACH EYE QHS eye drops 07/06/17 12/04/23 History metoprolol tartrate 25 mg tablet 25 mg PO BID heart rate 07/06/17 12/04/23 History sevelamer carbonate 800 mg tablet 1,600 mg PO TIDCM KIDNEYS 07/06/17 12/04/23 History (Renvela) aspirin 81 mg tablet,delayed 81 mg PO DAILY@0800 10/20/18 12/04/23 Rx release insulin detemir U-100 100 unit/mL 8 unit subcut BREAKFAST diabetes 09/17/21 12/04/23 History (3 mL) subcutaneous pen (Levemir FlexTouch U-100 Insulin) insulin detemir U-100 100 unit/mL 10 unit subcut QHS diabetes 09/17/21 12/04/23 History (3 mL) subcutaneous pen (Levemir FlexTouch U-100 Insulin) magnesium oxide 400 mg (241.3 mg 400 mg PO BID depression 09/17/21 12/04/23 History magnesium) tablet cephalexin 500 mg capsule 500 mg PO DAILY 7 days #7 CAPSULES 03/06/23 12/04/23 Rx oxycodone 5 mg tablet 5 mg PO Q6H PRN pain 3 days #12 03/06/23 12/04/23 Rx tabs hydrocodone-acetaminophe n 5-325mg 1 tab PO Q6H PRN PRN Pain 3 days 03/07/23 12/04/23 Rx 5mg-325mg #10 TABLETS Have you fallen in the past year?: No PFSH Medical History (Updated 12/04/23 @ 10:30 by LILLY Will) Wears glasses Wears dentures History of echocardiogram Cardiology follow-up encounter End stage renal disease on dialysis Diabetes Dialysis patient Kidney disease Non-smoker Syncope and collapse Atherosclerotic heart disease of douglas coronary artery without angina pectoris NSTEMI (non-ST elevated myocardial infarction) Malnutrition Delayed wound healing Ulcer of right foot with fat layer exposed History of iron deficiency Anemia due to chronic kidney disease HTN (hypertension) Hypomagnesemia Diabetic foot infection ESRD (end stage renal disease) on dialysis Diabetic neuropathy Hyponatremia DM type 1 causing renal disease Acute on chronic anemia Cellulitis of right foot Peripheral vascular disease Diabetes mellitus with neuropathy Microcytic anemia Depression Hyperlipidemia Diabetes mellitus type 1 Glaucoma Benign essential hypertension Surgical History History of parotidectomy Stented coronary artery (10/19/18) Status post peripheral artery angioplasty Presence of surgically created primary arteriovenous shunt for hemodialysis Status post transmetatarsal amputation of right foot Family History Sister Heart disease Uncle Colon cancer Social History household members: family Smoking Status: Never smoker alcohol intake: never substance use type: does not use HPI HPI HPI: THOM CHAPIN, is a 53 M who presents to the office today for evaluation of AV fistula with diminished flow rates by dialysis center report. He has dialysis MWF at [facility]. He has a L forearm radiocephalic fistula which was created by Dr. Graves in 2016. He has not had any other fistulas. He has required periodic fistulograms with angioplasty for similarly diminished flows over the last 8 years. These have been performed by Dr. Andrews. Reviewing previous records, he had angioplasty of venous stenosis in the proximal fistula and at the anastomosis in 09/2017, arterial anastomotic and proximal fistula venous stenosis angioplasty 12/2018, angioplasty proximal fistula venous stenosis 03/2021. 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 It is also noted that there has been past difficulty with accessing the radial artery. He reports he has not noticed any other difficulties. He has not had any prolonged bleeding, frequent machine alarms, or clotting. No new pain or swelling. He does not have any L hand parest hesias, weakness, (more content not included)... Normal [facility] Heart TransthoracicOrdere d By: Maribeth Aiken on 10-02-2023 Aortic Valve Area by Continuity of Peak Velocity 5.[address] [facility] Work Phone: AV pk grad 2.[address] [facility] Work Phone: AV pk davonte 0.73 m/s [facility] Work Phone: LA vol index A/L 24.8 ml/m2 [facility] Work Phone: LV A4C EF 45.[address] [facility] Work Phone: LV Biplane EF 47 % [facility] Work Phone: [phone] LVIDd 4.[address] [facility] Work Phone: LVOT diam 2.[address] [facility] Work Phone: MV avg E/e' ratio 15.22 [facility] Work Phone: MV E/A ratio 0.[address] [facility] Work Phone: RV free wall pk S' 7.00 cm/s [facility] Work Phone: RVSP 17.[address] [facility] Work Phone: Tricuspid annular plane systolic excursion 2.[address] [facility] Work Phone: [facility] Work Phone: US Heart Transthoracicon [facility], [address] [place] [address] and TRANSTHORACIC ECHOCARDIOGRAM REPORT Patient Name: THOM Soto Physician: [id number] Maribeth Kraus MD Study Date: 10/02/2023 Ordering Provider: [id number] ELI QUEZADA MRN/PID: [id number] Fellow: Nurse: Date of /Age: 3 1970 / 53 years Building Official: Roberta HILLIARD Gender: M Additional Staff: Height: 187.96 cm Admit Date: Weight: 68.04 kg Admission Status: BSA / BMI: 1.92 m2 / 19.26 kg/m2 Department Location: [facility] Non Invasive Blood Pressure: 175 /90 mmHg Study Type: TRANSTHORACIC ECHO (TTE) COMPLETE Diagnosis/ICD: Encounter for other preprocedural examination-Z01.818 Indication: Pre transplant evaluation CPT Code: Echo Complete w Full Doppler-20001 Patient History: Pertinent History: Pre-kidney Transplant. Study Detail: The following Echo studies were performed: 2D, M-Mode, Doppler and color flow. Technically challenging study due to prominent lung artifact. PHYSICIAN INTERPRETATION: Left Ventricle: The left ventricular systolic function is low normal, with an estimated ejection fraction of 50-55%. The left ventricular cavity size is normal. There is moderate asymmetric left ventricular hypertrophy involving the septal wall. Spectral Doppler shows an impaired relaxation pattern of left ventricular diastolic filling. Left Atrium: The left atrium is normal in size. Right Ventricle: The right ventricle is normal in size. There is normal right ventricular global systolic function. Right Atrium: The right atrium is normal in size. Aortic Valve: The aortic valve is trileaflet. There is mild aortic valve cusp calcification. There is mild aortic valve thickening. There is trivial aortic valve regurgitation. The peak instantaneous gradient of the aortic valve is 2.1 mmHg. Mitral Valve: The mitral valve is normal in structure. There is trace mitral valve regurgitation. Tricuspid Valve: The tricuspid valve is structurally normal. There is trace tricuspid regurgitation. Pulmonic Valve: The pulmonic valve is structurally normal. There is physiologic pulmonic valve regurgitation. Pericardium: There is no pericardial effusion noted. Aorta: The aortic root is abnormal. The Ao Sinus is 3.90 cm. The Asc Ao is 3.60 cm. There is mild dilatation of the ascending aorta. There is mild dilatation of the aortic root. Systemic Veins: The inferior vena cava appears to be of normal size. There is IVC inspiratory collapse greater than 50%. In comparison to the previous echocardiogram(s): There are no prior studies on this patient for comparison purposes. CONCLUSIONS: 1. Left ventricular systolic function is low normal with a 50-55% estimated ejection fraction. 2. Spectral Doppler shows an impaired relaxation pattern of left ventricular diastolic filling. 3. There is moderate asymmetric left ventricular hypertrophy. QUANTITATIVE DATA SUMMARY: 2D MEASUREMENTS: Normal Ranges: LAs: 2.79 cm (2.7-4.0cm) RVIDd: 2.33 cm (0.9-3.6cm) IVSd: 1.71 cm (0.6-1.1cm) LVPWd: 1.11 cm (0.6-1.1cm) LVIDd: 4.03 cm (3.9-5.9cm) LVIDs: 2.88 cm LV Mass Index: 110.9 g/m2 LV % FS 28.5 % LA VOLUME: Normal Ranges: LA Vol A4C: 45.7 ml (22+/-6mL/m2) LA Vol A2C: 46.7 ml LA Vol BP: 47.8 ml LA Vol Index A4C: 23.7ml/m2 LA Vol Index A2C: 24.3 ml/m2 LA Vol Index BP: 24.8 ml/m2 LA Area A4C: 15.2 cm2 LA Area A2C: 15.9 cm2 LA Major [place] A4C: 4.3 cm LA Major [place] A2C: 4.6 cm LA Volume Index: 24.8 ml/m2 RA VOLUME BY A/L METHOD: Normal Ranges: RA Vol A4C: 28.9 ml (8.3-19.5ml) RA Vol Index A4C: 15.0 ml/m2 RA Area A4C: 12.9 cm2 RA Major [place] A4C: 4.9 cm AORTA MEASUREMENTS: Normal Ranges: Ao Sinus, d: 3.90 cm (2.1-3.5cm) Asc Ao, d: 3.60 cm (2.1-3.4cm) LV SYSTOLIC FUNCTION BY 2D PLANIMETRY (MOD): Normal Ranges: EF-A4C View: 45.1 % (>=55%) EF-A2C View: 53.1 % EF-Biplane: 47.4 % LV DIASTOLIC FUNCTION: Normal Ranges: MV Peak E: 0.61 m/s (0.7-1.2 m/s) MV Peak A: 0.73 m/s (0.42-0.7 m/s) E/A Ratio: 0.84 (1.0-2.2) MV e' 0.04 m/s (>8.0) E/e' Ratio: 15.22 (<8.0) PulmV Sys V (more content not included)... Maribeth Solis MD - 10/02/2023 [facility], [address] [place] [address], [place] [address] and TRANSTHORACIC ECHOCARDIOGRAM REPORT Patient Name: THOM CHAPIN Reading Physician: [id number] Maribeth Kraus MD Study Date: 10/02/2023 Ordering Provider: [id number] ELI QUEZADA MRN/PID: [id number] Fellow: Nurse: Date of /Age: 3 1970 / 53 years Building Official: Roberta HILLIARD Gender: M Additional Staff: Height: 187.96 cm Admit Date: Weight: 68.04 kg Admission Status: BSA / BMI: 1.92 m2 / 19.26 kg/m2 Department Location: [facility] Non Invasive Blood Pressure: 175 /90 mmHg Study Type: TRANSTHORACIC ECHO (TTE) COMPLETE Diagnosis/ICD: Encounter for other preprocedural examination-Z01.818 Indication: Pre transplant evaluation CPT Code: Echo Complete w Full Doppler-79627 Patient History: Pertinent History: Pre-kidney Transplant. Study Detail: The following Echo studies were performed: 2D, M-Mode, Doppler and color flow. Technically challenging study due to prominent lung artifact. PHYSICIAN INTERPRETATION: Left Ventricle: The left ventricular systolic function is low normal, with an estimated ejection fraction of 50-55%. The left ventricular cavity size is normal. There is moderate asymmetric left ventricular hypertrophy involving the septal wall. Spectral Doppler shows an impaired relaxation pattern of left ventricular diastolic filling. Left Atrium: The left atrium is normal in size. Right Ventricle: The right ventricle is normal in size. There is normal right ventricular global systolic function. Right Atrium: The right atrium is normal in size. Aortic Valve: The aortic valve is trileaflet. There is mild aortic valve cusp calcification. There is mild aortic valve thickening. There is trivial aortic valve regurgitation. The peak instantaneous gradient of the aortic valve is 2.1 mmHg. Mitral Valve: The mitral valve is normal in structure. There is trace mitral valve regurgitation. Tricuspid Valve: The tricuspid valve is structurally normal. There is trace tricuspid regurgitation. Pulmonic Valve: The pulmonic valve is structurally normal. There is physiologic pulmonic valve regurgitation. Pericardium: There is no pericardial effusion noted. Aorta: The aortic root is abnormal. The Ao Sinus is 3.90 cm. The Asc Ao is 3.60 cm. There is mild dilatation of the ascending aorta. There is mild dilatation of the aortic root. Systemic Veins: The inferior vena cava appears to be of normal size. There is IVC inspiratory collapse greater than 50%. In comparison to the previous echocardiogram(s): There are no prior studies on this patient for comparison purposes. CONCLUSIONS: 1. Left ventricular systolic function is low normal with a 50-55% estimated ejection fraction. 2. Spectral Doppler shows an impaired relaxation pattern of left ventricular diastolic filling. 3. There is moderate asymmetric left ventricular hypertrophy. QUANTITATIVE DATA SUMMARY: 2D MEASUREMENTS: Normal Ranges: LAs: 2.79 cm (2.7-4.0cm) RVIDd: 2.33 cm (0.9-3.6cm) IVSd: 1.71 cm (0.6-1.1cm) LVPWd: 1.11 cm (0.6-1.1cm) LVIDd: 4.03 cm (3.9-5.9cm) LVIDs: 2.88 cm LV Mass Index: 110.9 g/m2 LV % FS 28.5 % LA VOLUME: Normal Ranges: LA Vol A4C: 45.7 ml (22+/-6mL/m2) LA Vol A2C: 46.7 ml LA Vol BP: 47.8 ml LA Vol Index A4C: 23.7ml/m2 LA Vol Index A2C: 24.3 ml/m2 LA Vol Index BP: 24.8 ml/m2 LA Area A4C: 15.2 cm2 LA Area A2C: 15.9 cm2 LA Major [place] A4C: 4.3 cm LA Major [place] A2C: 4.6 cm LA Volume Index: 24.8 ml/m2 RA VOLUME BY A/L METHOD: Normal Ranges: RA Vol A4C: 28.9 ml (8.3-19.5ml) RA Vol Index A4C: 15.0 ml/m2 RA Area A4C: 12.9 cm2 RA Major [place] A4C: 4.9 cm AORTA MEASUREMENTS: Normal Ranges: Ao Sinus, d: 3.90 cm (2.1-3.5cm) Asc Ao, d: 3.60 cm (2.1-3.4cm) LV SYSTOLIC FUNCTION BY 2D PLANIMETRY (MOD): Normal Ranges: EF-A4C View: 45.1 % (>=55%) EF-A2C View: 53.1 % EF-Biplane: 47.4 % LV DIASTOLIC FUNCTION: Normal Ranges: MV Peak E: 0.61 m/s (0.7-1.2 m/s) MV Peak A: 0.73 m/s (0.42-0.7 m/s) E/A Ratio: 0.84 (1.0-2.2) MV e' 0.04 m/s (>8.0) E/e' Ratio: 15.22 (<8.0) PulmV Sys Davonte: 49.24 cm/s PulmV Farrar Davonte: 36.62 cm/s PulmV S/D Davonte: 1.34 PulmV A Revs Davonte: 26.47 cm/s PulmV A Revs Dur: 100.35 msec MITRAL VALVE: Normal Ranges: MV DT: 181 msec (150-240msec) AORTIC VALVE: Normal Ranges: AoV Vmax: 0.73 m/s (<=1.7m/s) AoV Peak P.1 mmHg (<20mmHg) LVOT Max Davonte: 0.74 m/s (<=1.1m/s) LVOT VTI: 16.55 cm LVOT Diameter: 2.56 cm (1.8-2.4cm) AoV Area,Vmax: 5.23 cm2 (2.5-4.5cm2) RIGHT VENTRICLE: RV Basal 3.40 cm RV Mid 2.30 cm RV Major 6.6 cm TAPSE: 24.0 mm RV s' 0.07 m/s TRICUSPID VALVE/RVSP: Normal Ranges: Peak TR Velocity: 1.88 m/s RV Syst Pressure: 17.1 mmHg (< 30mmHg) IVC Diam: 1.80 cm P (more content not included)... [facility] Work Phone: Study Interpretation of outs [place] studyon 09-19-2023 Outside images for comparison or treatment purposes, not interpreted by Radiologists. IMAGING Absolute lymphocyte countOrd ered By: Rusty Juan on 03-07-2023 Lymphocytes Auto (Unsp spec) [#/Vol] 0.47 10*3/uL 0.83-4.51 [facility] Basophil percentageOrdered B y: Rusty Juan on 03-07-2023 Basophils/100 WBC (Bld) 0.2 % 0-1 [facility] Chloride [Moles/Vol] 97 mmol/L 98-107 [facility] Eosinophils/100 WBC (Bld) 1.0 % 0-5 [facility] Glucose [Mass/Vol] 166 mg/dL 74-[address] [facility] Comment on above: Fasting Glucose resu lt greater than or equal to 126 mg/dL suggests DIABETES MELLITUS per A.D.A. criteria. Neutrophils (Bld) [#/Vol] 3.9 10*3/uL 2.0-7.7 [facility] Neutrophils/100 WBC (Bld) 77.8 % 47-70 [facility] Potassium [Moles/Vol] 4.0 mmol/L 3.5-5.1 [facility] Sodium [Moles/Vol] 132 mmol/L 136-[address] [facility] WBC (Bld) [#/Vol] 5.0 10*3/uL 4.4-11.[address] [facility] Blood erythrocytes count (nu mber/volume)Ordered By: Rustymarvin Juan on 03-07-2023 RBC (Bld) [#/Vol] 3.89 10*6/uL 4.6-6.2 [facility] Blood hemoglobin measurement (mass/volume)Ordered By: Rustymarvin Juan on 03-07-2023 Hemoglobin (Bld) [Mass/Vol] 9.1 g/dL 13.0-16.5 [facility] Blood lymphocytes/100 leukoc ytesOrdered By: Rustymarvin Juan on 03-07-2023 Lymphocytes/100 WBC (Bld) 9.4 % 19-41 [facility] Blood manual differential co mment interpretation (narrative result)Ordered By: Rustymarvin Juan on 03-07-2023 Manual differential comment Hugh (Bld) [Interp] COMMENT [facility] Comment on above: LYMPHOPENIA. Blood monocytes/100 leukocyt esOrdered By: Rustymarvin Juan on 03-07-2023 Monocytes/100 WBC (Bld) 11.4 % 0-10 [facility] Blood platelet adequacy dete ction by light microscopyOrdered By: Rustymarvin Juan on 03-07-2023 Platelets LM Ql (Bld) MOD DEC ADEQ [facility] Blood platelet mean volumeOr dered By: Rustymarvin Juan on 03-07-2023 Platelet mean volume (Bld) [Entitic vol] 10.7 fL 6.2-12.0 [facility] Determination of erythrocyte mean corpuscular volume (MCV)Ordered By: Rustymarvin Juan on 03-07-2023 MCV (RBC) [Entitic vol] 76.1 fL 80-94 [facility] Hematocrit Auto (Bld) [Volum e fraction]Ordered By: [facility] on 03-07-2023 Hematocrit (Bld) [Volume fraction] 29.6 % 40-54 [facility] INR in Blood by Coagulation assayOrdered By: Rusty Juan on 03-07-2023 INR Coag (Bld) [Relative time] 1.1 {INR} [facility] Laboratory - Chemistry and C hemistry - challengeOrdered By: Rustymarvin Juan on 03-07-2023 CO2 [Moles/Vol] 30.0 mmol/L 21.0-32.0 [facility] Urea nitrogen/Creatinine [Mass ratio] 4.6 mg/mg 10-20 [facility] Laboratory - CoagulationOrde red By: Rustymarvin Juan on 03-07-2023 aPTT Coag (Bld) [Time] 25.9 s 24.1-36.2 [facility] PT Coag (PPP) [Time] 14.1 s 11.7-14.9 [facility] Laboratory - Hematology and Cell countsOrdered By: Rustymarvin Juan on 03-07-2023 Erythrocyte distribution width (RBC) [Entitic vol] 47.7 fL 35.1-43.9 [facility] Erythrocyte distribution width (RBC) [Ratio] 17.3 % 11.6-14.6 [facility] Immature granulocytes/100 WBC (Bld) 0.200 % 0.0-0.9 [facility] Comment on above: IG% - Immature Granu locytes (promyelocytes, myelocytes and metamyelocytes) > 1% indicates that a LEFT SHIFT is Present. MCH (RBC) [Entitic mass] 23.4 pg 27.0-32.0 [facility] Nucleated RBC/100 WBC (Bld) [Ratio] 0 % 0-5 [facility] [Mass/Vol]Or dered By: Rusty Juan on 03-07-2023 MCHC (RBC) [Mass/Vol] 30.7 g/dL 32-36 [facility] No Panel InformationOrdered By: Rusty Juan on 03-07-2023 Estimated Creatinine Clearance Calc 17.94 ml/min [facility] Estimated GFR (MDRD) Amer 17 mL/min >60 [facility] Comment on above: GFR Calc Estimated GFR (MDRD) Non-Af Amer 14 mL/min >60 [facility] Comment on above: Non- GFR Calc Platelets bldOrdered By: Rusty Juan on 03-07-2023 Platelets (Bld) [#/Vol] 86 10*3/uL 150-450 [facility] Serum or plasma calcium justin urement (mass/volume)Ordered By: Rusty Juan on 03-07-2023 Calcium [Mass/Vol] 7.6 mg/dL 8.5-10.[address] [facility] Serum or plasma creatinine m easurement (mass/volume)Ordered By: Rusty Juan on 03-07-2023 Creatinine [Mass/Vol] 4.54 mg/dL 0.70-1.30 [facility] Comment on above: The validity of the calculated GFR & GFRAA in patients over 70 years has not been determined. Clinical correlation is essential. Serum or plasma urea nitroge n measurement (mass/volume)Ordered By: Rusty Juan on 03-07-2023 Urea nitrogen [Mass/Vol] 21 mg/dL 7-18 [facility] Thin prep Papanicolaou smear with manual screeningOrdered By: Rusty Juan on 03-07-2023 Thin prep Papanicolaou smear with manual screening 5 5-15 [facility] Glucose Glucometer (BldC) [M ass/Vol]Ordered By: Ramona Romero on 03-06-2023 Glucose [Mass/Vol] 208 mg/dL 74-[address] [facility] Comment on above: MANAGEMENT OF PATIEN T CARE PER NURSING PROTOCOL Bacteria identified Anaer cx Nom (Unsp spec)Ordered By: Isaiah Servin on 12-26-2022 Anaerobic Culture Bacteroides fragilis [facility] Bacteria identified Cx Nom ( Wound)Ordered By: Isaiah Servin on 12-26-2022 Wound Culture Klebsiella pneumonia e sp pneum [facility] Wound Culture Staphylococcus cohni i cohnii [facility] Wound Culture Corynebacterium striatum [facility] Gram stain for investigation of transfusion reactionOrdered By: Isaiah Servin on 12-26-2022 Microscopic observation Gram stain Nom (Unsp spec) [facility] Absolute lymphocyte counton 05-24-2022 Lymphocytes Auto (Unsp spec) [#/Vol] 0.49 10*3/uL 0.83-4.51 [facility] Work Phone: Basophil percentageon 2021 Basophils/100 WBC (Bld) 0.3 % 0-1 [facility] Work Phone: Chloride [Moles/Vol] 99 mmol/L 98-107 [facility] Work Phone: Eosinophils/100 WBC (Bld) 0.1 % 0-5 [facility] Work Phone: Glucose [Mass/Vol] 77 mg/dL 74-[address] [facility] Work Phone: Neutrophils (Bld) [#/Vol] 6.2 10*3/uL 2.0-7.7 [facility] Work Phone: Neutrophils/100 WBC (Bld) 86.6 % 47-70 [facility] Work Phone: Potassium [Moles/Vol] 3.7 mmol/L 3.5-5.1 [facility] Work Phone: Sodium [Moles/Vol] 137 mmol/L 136-[address] [facility] Work Phone: WBC (Bld) [#/Vol] 7.2 10*3/uL 4.4-11.[address] [facility] Work Phone: Blood erythrocytes count (nu mber/volume)on 05-24-2022 RBC (Bld) [#/Vol] 5.02 10*6/uL 4.6-6.2 [facility] Work Phone: Blood hemoglobin measurement (mass/volume)on 05-24-2022 Hemoglobin (Bld) [Mass/Vol] 11.5 g/dL 13.0-16.5 [facility] Work Phone: Blood lymphocytes/100 leukoc yteson 05-24-2022 Lymphocytes/100 WBC (Bld) 6.9 % 19-41 [facility] Work Phone: Blood manual differential co mment interpretation (narrative result)on 05-24-2022 Manual differential comment Hugh (Bld) [Interp] SCANNED [facility] Work Phone: Blood monocytes/100 leukocyt eson 05-24-2022 Monocytes/100 WBC (Bld) 5.7 % 0-10 [facility] Work Phone: Blood platelet mean volumeon 05-24-2022 Platelet mean volume (Bld) [Entitic vol] 9.3 fL 6.2-12.0 [facility] Work Phone: Determination of erythrocyte mean corpuscular volume (MCV)on 05-24-2022 MCV (RBC) [Entitic vol] 76.9 fL 80-94 [facility] Work Phone: Glucose Glucometer (BldC) [M ass/Vol]on 05-24-2022 Glucose [Mass/Vol] 126 mg/dL 74-[address] [facility] Work Phone: Comment on above: MANAGEMENT OF PATIEN T CARE PER NURSING PROTOCOL Hematocrit Auto (Bld) [Volum e fraction]on 05-24-2022 Hematocrit (Bld) [Volume fraction] 38.6 % 40-54 [facility] Work Phone: Laboratory - Chemistry and C hemistry - challengeon 05-24-2022 CO2 [Moles/Vol] 33.0 mmol/L 21.0-32.0 [facility] Work Phone: Urea nitrogen/Creatinine [Mass ratio] 5.3 mg/mg 10-20 [facility] Work Phone: Laboratory - Hematology and Cell countson 05-24-2022 Erythrocyte distribution width (RBC) [Entitic vol] 47.1 fL 35.1-43.9 [facility] Work Phone: Erythrocyte distribution width (RBC) [Ratio] 17.5 % 11.6-14.6 [facility] Work Phone: Immature granulocytes/100 WBC (Bld) 0.400 % 0.0-0.9 [facility] Work Phone: Comment on above: IG% - Immature Granu locytes (promyelocytes, myelocytes and metamyelocytes) > 1% indicates that a LEFT SHIFT is Present. MCH (RBC) [Entitic mass] 22.9 pg 27.0-32.0 [facility] Work Phone: Nucleated RBC/100 WBC (Bld) [Ratio] 0 % 0-5 [facility] Work Phone: MCHC Auto (RBC) [Mass/Vol]on 05-24-2022 MCHC (RBC) [Mass/Vol] 29.8 g/dL 32-36 [facility] Work Phone: No Panel Informationon 05-24 Estimated Creatinine Clearance Calc 10.27 ml/min [facility] Work Phone: Estimated GFR (MDRD) Amer 9 mL/min >60 [facility] Work Phone: Comment on above: GFR Calc Estimated GFR (MDRD) Non-Af Amer 8 mL/min >60 [facility] Work Phone: Comment on above: Non- GFR Calc Platelets bldon 05-24-2022 Platelets (Bld) [#/Vol] 115 10*3/uL 150-450 [facility] Work Phone: Serum or plasma calcium justin urement (mass/volume)on 05-24-2022 Calcium [Mass/Vol] 8.7 mg/dL 8.5-10.[address] [facility] Work Phone: Serum or plasma creatinine m easurement (mass/volume)on 05-24-2022 Creatinine [Mass/Vol] 7.87 mg/dL 0.70-1.30 [facility] Work Phone: Comment on above: Critical Result(s) C alled at: 09:56:20 05/24/2022 by: Colby Linton. Shonda Stephens RN (ER). Results read back by same.The validity of the calculated GFR & GFRAA in patients over 70 years has not been determined. Clinical correlation is essential. Serum or plasma urea nitroge n measurement (mass/volume)on 05-24-2022 Urea nitrogen [Mass/Vol] 42 mg/dL 7-18 [facility] Work Phone: Thin prep Papanicolaou smear with manual screeningon 05-24-2022 Thin prep Papanicolaou smear with manual screening 5 5-15 [facility] Work Phone: Glucose Glucometer (BldC) [M ass/Vol]on 03-11-2022 Glucose [Mass/Vol] 132 mg/dL 74-[address] [facility] Work Phone: Comment on above: MANAGEMENT OF PATIEN T CARE PER NURSING PROTOCOL Barrett 11-29-2021 CNPN Telephone (PREANME) -------- THOM CHAPIN ([id number]) 1970 M Date Time Provider Department 11/29/21 NAKIA ROSSI During your visit today, we recorded the following information about you: Nakia Rossi LPN 11/29/2021 8:16 AM Signed Called pt regarding missed [facility] appt. Gave pt number to central scheduling to reschedule. Nakia Rossi LPN Allergies As of Date: 11/29/2021 (No Known Allergies) Date Reviewed: 05/31/2021 Reviewed by: Mary Jay APRN.[employer]ISSIONS INSPECTOR - Fully Assessed Reason for Visit: Appointment [[id number]] Prescriptions as of 11/29/2021 - magnesium oxide (MAG-OX) 400 mg (241.3 mg magnesium) tablet Take 1 tablet by mouth twice daily. - hydrALAZINE (APRESOLINE) 100 mg tablet Take 1 tablet by mouth three times daily. - UNIFINE PENTIPS 31 gauge x 3/16 Use twice daily as directed for insulin - flash glucose scanning reader (M-FilesSTYLE HARPER 2 READER) Use as directed to monitor blood sugar - flash glucose sensor (FREESTYLE HARPER 2 SENSOR) kit Use as directed to monitor blood glucose - metoprolol tartrate, short acting, (LOPRESSOR) 25 mg tablet Take 1 tablet by mouth twice daily. - blood sugar diagnostic (TRUETEST TEST STRIPS) test strip test three times daily - dx 250.00 - insulin depentant - insulin detemir U-100 (LEVEMIR FLEXTOUCH U-100 INSULIN) 100 unit/mL (3 mL) injection pen 13 units in the am and 10 units in the pm - timoloL maleate (TIMOPTIC) 0.5 % ophthalmic solution Use 1 Drop in both eyes twice daily. - minoxidil (LONITEN) 2.5 mg tablet Take 1 tablet by mouth once daily. - losartan (COZAAR) 50 mg tablet Take 1 tablet by mouth once daily. - clopidogrel (PLAVIX) 75 mg tablet Take 1 tablet by mouth once daily. - atorvastatin (LIPITOR) 40 mg tablet Take 1 tablet by mouth daily at bedtime. For cholesterol. - aspirin 81 mg chewable tablet Take 1 tablet by mouth once daily. - sildenafil (VIAGRA) 50 mg tablet Take 1 tablet by mouth as needed. Take one hour prior to sexual activity - latanoprost (XALATAN) 0.005 % ophthalmic solution Use 1 Drop in both eyes daily at bedtime. - lisinopril (ZESTRIL, PRINIVIL) 10 mg tablet Take 10 mg by mouth once daily. - sevelamer carbonate (RENVELA) 800 mg tablet Take 1 mg by mouth three times daily. - ondansetron (ZOFRAN) 4 mg tablet - TRUE METRIX GLUCOSE METER misc - NOVOFINE AUTOCOVER 30 gauge x 1/3 ndle - citalopram (CELEXA) 20 mg tablet Take 1 tablet by mouth once daily. - Insulin Syringe-Needle U-100 (BD LO-DOSE MICRO-FINE IV) 0.3 mL 28 x 1/2 syrg Inject 1 Each subcutaneously daily at bedtime. Inject once daily (for Lantus) Dx: Diabetes Type I with renal manifestations . 254.43 - glucagon, human recombinant, (GLUCAGON EMERGENCY) 1 mg injection 1 mg as needed. ADMINISTER FOR LOW BLOOD SUGAR - IF UNCONSCIOUS OR UNABLE TO SWALLOW Problem List As Of Date 11/29/2021 Noted Resolved Type 1 diabetes mellitus with chronic kidney di*01/21/2005 Essential hypertension [I10] 01/21/2005 GLAUCOMA NOS [H40.9] 01/21/2005 Sterilization [Z30.2] 02/05/2007 07/30/2019 HYPERLIPIDEMIA NEC/NOS [E78.5] 07/06/2008 ANEMIA NOS [D64.9] 09/27/2008 Diabetic Retinopathy [E11.319] 02/22/2010 Diabetic nephropathy (HCC) [E11.21] 02/22/2010 06/16/2019 Depression [F32.A] 06/20/2010 Type 1 diabetes mellitus with diabetic neuropat*11/20/2010 Ulcer of heel and midfoot (HCC) [L97.409] 11/20/2010 07/30/2019 History of osteomyelitis [Z87.39] 01/08/2011 Cellulitis and abscess of foot, except toes [L0*03/25/2011 07/30/2019 Ulcer of other part of foot [L97.509] 04/04/2011 07/30/2019 Gastro-esophageal reflux [K21.9] 04/23/2012 Sinus complaint [R09.89] 04/23/2012 06/16/2019 Alpha 0-thalassemia (HCC) [D56.0] 03/01/2014 ESRD (end stage renal disease) (HCC) [N18.6] 01/08/2016 S/P transmetatarsal amputation of foot, right (*08/17/2019 Encounter Status:Closed by NAKIA ROSSI on 11/29/21 [facility] Absolute lymphocyte counton 09-17-2021 Lymphocytes Auto (Unsp spec) [#/Vol] 0.69 10*3/uL 0.83-4.51 [facility] Work Phone: Basophil percentageon 2021 Basophil percentage 4.5 mg/dL 2.5-4.9 [facility] Work Phone: [phone] Basophils/100 WBC (Bld) 0.7 % 0-1 [facility] Work Phone: Bilirubin [Mass/Vol] 0.50 mg/dL 0.20-1.00 [facility] Work Phone: [phone] Comment on above: For patients on eltr ombopag therapy, use of Dimension [place] TBIL is not recommended. Chloride [Moles/Vol] 98 mmol/L 98-107 [facility] Work Phone: Eosinophils/100 WBC (Bld) 5.7 % 0-5 [facility] Work Phone: Glucose [Mass/Vol] 164 mg/dL 74-[address] [facility] Work Phone: Comment on above: Fasting Glucose resu lt greater than or equal to 126 mg/dL suggests DIABETES MELLITUS per A.D.A. criteria. Neutrophils (Bld) [#/Vol] 3.1 10*3/uL 2.0-7.7 [facility] Work Phone: [phone] Neutrophils/100 WBC (Bld) 69.4 % 47-70 [facility] Work Phone: [phone] Potassium [Moles/Vol] 4.6 mmol/L 3.5-5.1 [facility] Work Phone: Protein [Mass/Vol] 7.2 g/dL 6.4-8.[address] [facility] Work Phone: [phone] Sodium [Moles/Vol] 134 mmol/L 136-[address] [facility] Work Phone: [phone] WBC (Bld) [#/Vol] 4.5 10*3/uL 4.4-11.[address] [facility] Work Phone: Blood erythrocytes count (nu mber/volume)on 09-17-2021 RBC (Bld) [#/Vol] 4.61 10*6/uL 4.6-6.2 [facility] Work Phone: Blood hemoglobin measurement (mass/volume)on 09-17-2021 Hemoglobin (Bld) [Mass/Vol] 10.9 g/dL 13.0-16.5 [facility] Work Phone: Blood lymphocytes/100 leukoc yteson 09-17-2021 Lymphocytes/100 WBC (Bld) 15.2 % 19-41 [facility] Work Phone: Blood monocytes/100 leukocyt eson 09-17-2021 Monocytes/100 WBC (Bld) 8.6 % 0-10 [facility] Work Phone: Blood platelet mean volumeon 09-17-2021 Platelet mean volume (Bld) [Entitic vol] 9.3 fL 6.2-12.0 [facility] Work Phone: Determination of erythrocyte mean corpuscular volume (MCV)on 09-17-2021 MCV (RBC) [Entitic vol] 75.3 fL 80-94 [facility] Work Phone: Glucose Glucometer (BldC) [M ass/Vol]on 09-17-2021 Glucose [Mass/Vol] 242 mg/dL 74-[address] [facility] Work Phone: Comment on above: MANAGEMENT OF PATIEN T CARE PER NURSING PROTOCOL Hematocrit Auto (Bld) [Volum e fraction]on 09-17-2021 Hematocrit (Bld) [Volume fraction] 34.7 % 40-54 [facility] Work Phone: Laboratory - Chemistry and C hemistry - challengeon 09-17-2021 ALP [Catalytic activity/Vol] 75 U/L 45-117 [facility] Work Phone: ALT [Catalytic activity/Vol] 25 U/L 16-61 [facility] Work Phone: CO2 [Moles/Vol] 23.0 mmol/L 21.0-32.0 [facility] Work Phone: Globulin (S) [Mass/Vol] 3.7 g/dL 2.2-4.2 [facility] Work Phone: Magnesium [Mass/Vol] 3.3 mg/dL 1.6-2.6 [facility] Work Phone: Urea nitrogen/Creatinine [Mass ratio] 7.1 mg/mg 10-20 [facility] Work Phone: Laboratory - Hematology and Cell countson 09-17-2021 Erythrocyte distribution width (RBC) [Entitic vol] 46.1 fL 35.1-43.9 [facility] Work Phone: Erythrocyte distribution width (RBC) [Ratio] 18.3 % 11.6-14.6 [facility] Work Phone: Immature granulocytes/100 WBC (Bld) 0.400 % 0.0-0.9 [facility] Work Phone: Comment on above: IG% - Immature Granu locytes (promyelocytes, myelocytes and metamyelocytes) > 1% indicates that a LEFT SHIFT is Present. MCH (RBC) [Entitic mass] 23.6 pg 27.0-32.0 [facility] Work Phone: Nucleated RBC/100 WBC (Bld) [Ratio] 0 % 0-5 [facility] Work Phone: MCHC Auto (RBC) [Mass/Vol]on 09-17-2021 MCHC (RBC) [Mass/Vol] 31.4 g/dL 32-36 [facility] Work Phone: No Panel Informationon 09-17 Estimated Creatinine Clearance Calc 6.08 ml/min [facility] Work Phone: Estimated GFR (MDRD) Amer 5 mL/min >60 [facility] Work Phone: Comment on above: GFR Calc Estimated GFR (MDRD) Non-Af Amer 4 mL/min >60 [facility] Work Phone: Comment on above: Non- GFR Calc Platelets bldon 09-17-2021 Platelets (Bld) [#/Vol] 138 10*3/uL 150-450 [facility] Work Phone: Serum or plasma albumin justin urement (mass/volume)on 09-17-2021 Albumin [Mass/Vol] 3.5 g/dL 3.2-5.[address] [facility] Work Phone: Serum or plasma albumin/glob ulin mass ratioon 09-17-2021 Albumin/Globulin [Mass ratio] 0.9 {ratio} 0.9-2.4 [facility] Work Phone: Serum or plasma calcium justin urement (mass/volume)on 09-17-2021 Calcium [Mass/Vol] 8.4 mg/dL 8.5-10.[address] [facility] Work Phone: Serum or plasma creatinine m easurement (mass/volume)on 09-17-2021 Creatinine [Mass/Vol] 13.90 mg/dL 0.70-1.30 [facility] Work Phone: Comment on above: Critical Result(s) C alled at: 06:44:32 09/17/2021 by: Davina Dumas. Results read back by same.The validity of the calculated GFR & GFRAA in patients over 70 years has not been determined. Clinical correlation is essential. Serum or plasma urea nitroge n measurement (mass/volume)on 09-17-2021 Urea nitrogen [Mass/Vol] 99 mg/dL 7-18 [facility] Work Phone: Thin prep Papanicolaou smear with manual screeningon 09-17-2021 Thin prep Papanicolaou smear with manual screening 15 U/L 15-37 [facility] Work Phone: Thin prep Papanicolaou smear with manual screening 13 5-15 [facility] Work Phone: Basophil percentageon 2021 Chloride [Moles/Vol] 98 mmol/L 98-107 [facility] Work Phone: Glucose [Mass/Vol] 100 mg/dL 74-[address] [facility] Work Phone: Comment on above: Fasting Glucose resu lt from 100 to 125 mg/dL suggests IMPAIRED HOMEOSTASIS per A.D.A. criteria. Potassium [Moles/Vol] 4.3 mmol/L 3.5-5.1 [facility] Work Phone: Sodium [Moles/Vol] 136 mmol/L 136-[address] [facility] Work Phone: Glucose Glucometer (BldC) [M ass/Vol]on 09-07-2021 Glucose [Mass/Vol] 106 mg/dL 74-[address] [facility] Work Phone: Comment on above: MANAGEMENT OF PATIEN T CARE PER NURSING PROTOCOL Laboratory - Chemistry and C hemistry - challengeon 09-07-2021 CO2 [Moles/Vol] 29.0 mmol/L 21.0-32.0 [facility] Work Phone: Urea nitrogen/Creatinine [Mass ratio] 6.2 mg/mg 10-20 [facility] Work Phone: No Panel Informationon 09-07 Estimated Creatinine Clearance Calc 10.16 ml/min [facility] Work Phone: Estimated GFR (MDRD) Amer 9 mL/min >60 [facility] Work Phone: Comment on above: GFR Calc Estimated GFR (MDRD) Non-Af Amer 7 mL/min >60 [facility] Work Phone: Comment on above: Non- GFR Calc Serum or plasma calcium justin urement (mass/volume)on 09-07-2021 Calcium [Mass/Vol] 9.1 mg/dL 8.5-10.[address] [facility] Work Phone: Serum or plasma creatinine m easurement (mass/volume)on 09-07-2021 Creatinine [Mass/Vol] 8.09 mg/dL 0.70-1.30 [facility] Work Phone: Comment on above: Critical Result(s) C alled at: 11:40:31 09/07/2021 by: Neri Jacinto RN (ER). Results read back by same.The validity of the calculated GFR & GFRAA in patients over 70 years has not been determined. Clinical correlation is essential. Serum or plasma urea nitroge n measurement (mass/volume)on 09-07-2021 Urea nitrogen [Mass/Vol] 50 mg/dL 7-18 [facility] Work Phone: Thin prep Papanicolaou smear with manual screeningon 09-07-2021 Thin prep Papanicolaou smear with manual screening 9 -15 [facility] Work Phone: CT Abdomen and Pelvis withou t Contraston 05-30-2020 CT Abdomen and Pelvis WO contrast Please click on the link to view the study images Normal [facility] Work Phone: CT Abdomen and Pelvis WO contrast Interpreted by: TYLER BRAVO05/31/20 19:30MRN: [id number] Name: THOM CHAPIN STUDY:CT ABDOMEN AND PELVIS WO CONTRAST; 05/30/2020 10:28 am INDICATION:Patient is a 49-year-old man with end-stage renal disease. CT wasrequested for vasculature evaluation in consideration for renaltransplant.. COMPARISON:None available. ORDERING CLINICIAN:BECK MCADAMS TECHNIQUE:Contiguous axial images of the abdomen and pelvis were obtainedwithout intravenous contrast. Coronal and sagittal reformatted imageswere reconstructed from the axial data. FINDINGS:LOWER CHEST: No acute abnormality. ABDOMEN/PELVIS: Lack of intravenous contrast limits evaluation of the solid organsand vasculature. ABDOMINAL WALL: No significant abnormality. Mild skin thickening andsubcutaneous edema at the anterior/lower abdominal wall is likelysequela from injections. LIVER: The liver demonstrates a normal noncontrast attenuation. BILE DUCTS: No significant intrahepatic or extrahepatic dilatation. GALLBLADDER: No significant abnormality. SPLEEN: No significant abnormality. PANCREAS: No significant abnormality. ADRENALS: No significant abnormality. KIDNEYS, URETERS, BLADDER: No hydroureteronephrosis. No urolithiasisor nephrolithiasis. There is a fluid attenuating, 9 mm simple cyst inthe interpolar left kidney. There are a few cortical hypodensitiesinvolving both kidneys, too small to definitively characterize, butstatistically most likely represent simple cysts. The urinary bladder is unremarkable. REPRODUCTIVE ORGANS: No significant abnormality. VESSELS: There is significant atherosclerotic calcification of theabdominal aorta and its vessels including:Infrarenal abdominal aorta: Severe, near circumferential.Common iliac arteries: Moderate bilaterally.External iliac arteries: Mild proximally, with severe,circumferential calcification distallyInternal iliac arteries: Severe bilaterally.Common femoral arteries: Severe, circumferential bilaterally No abdominal aortic aneurysm. Unremarkable non-contrast appearance ofthe major abdominal and pelvic veins. Venous anatomy appearsconventional. RETROPERITONEUM/LYMPH NODES: No enlarged lymph nodes. BOWEL/MESENTERY/PERITONE UM: No bowel wall thickening or dilatation.The colon is diffusely filled with stool. No ascites, free air, or fluid collection. MUSCULOSKELETAL: No suspicious osseous lesions or acute osseousabnormality. IMPRESSION:1. Moderate to severe calcification of the pelvic arteries asdetailed above. Venous anatomy appears conventional.2. No acute process in the abdomen or pelvis. I personally reviewed the images/study and I agree with the findingsas stated. This study was interpreted at [place], [place].Electronically signed by: TYLER BRAVO 05/31/20 19:30 Normal [facility] 2100 Work Phone: Amylase, Serumon 05-23-2020 Amylase [Catalytic activity/Vol] 149 U/L above high threshold 29 - 103 [facility] [employer] Work Phone: Blood Typing (ABO + Rho D)on 05-23-2020 ABO group Nom (Bld) B [facility] [employer] Work Phone: Rh immune globulin screen (Bld) [Interp] Positive [facility] [employer] Work Phone: Blood Urea Nitrogen, Serumon 05-23-2020 Urea nitrogen [Mass/Vol] 48 mg/dL above high threshold 6 - 23 [facility] [employer] Work Phone: C Peptide, Serumon 0 C peptide [Mass/Vol] 0.5 ng/mL below low threshold 0.7 - 3.9 [facility] [employer] Work Phone: CMV IgGon 05-23-2020 CMV IgG REACTIVE Abnormal See Below [facility] [employer] Work Phone: Comment on above: SOURCE: Reference Ra nge: NONREACTIVE Cannabinoid Confirmation, Bl oodon 05-23-2020 Cannabinoids [Mass/Vol] 78 ng/mL [facility] Work Phone: Comment on above: 57-KNS-0-CARBOXY-THC INTERPRETIVE INFORMATION: THC Metabolite, Serum or Plasma, QuantitativeMethodology: Quantitative Liquid Chromatography-Tandem Mass Spectrometry.Positive cutoff: 5 ng/mLFor medical purposes only; not valid for forensic use.The drug analyte detected in this assay, 9-carboxy THC, is a metabolite of fmmgh-3-gnombkniqutyheqelxjn (THC). Detection of 9-carboxy THC suggests use of, or exposure to, a product containing THC. This test cannot distinguish between prescribed or non-prescribed forms of THC, nor can it distinguish between active or passive use. The plasma half-life for 9-carboxy THC metabolite is estimated to range from 4-12 hours. Test developed and characteristics determined by [facility]. See Compliance Statement B: [employer]/CSPerformed By: [facility] [place] [id number] Director: Ansley Hameed MD Creatinine, Serumon 05-23-20 20 Creatinine [Mass/Vol] 10 {mL/min/1.73m2} Abnormal >60 [facility] [employer] Work Phone: Comment on above: CALCULATIONS OF CLEOPATRA MATED GFR ARE PERFORMED USING THE MDRD STUDY EQUATION FOR THE IDMS-TRACEABLE CREATININE METHODS. CLIN CHEM 2007;53:766-72 Creatinine [Mass/Vol] 8 {mL/min/1.73m2} Abnormal >60 [facility] [employer] Work Phone: Creatinine [Mass/Vol] 6.92 mg/dL above high threshold See Below [employer] Work Phone: Comment on above: Reference Range: 0.5 0 - 1.30 HIV 1/2 ANTIGEN/ANTIBODY SCR EEN WITH REFLEX TO CONFIRMATIONon 05-23-2020 HIV 1+2 Ab+HIV1 p24 Ag IA Ql NONREACTIVE See Below [employer] Work Phone: Comment on above: SOURCE: Reference Ra nge: NONREACTIVE HIV Ag/Ab screen is performed using the Siemens [employer] HIV Ag/Ab Combo assay which detects the presence of HIV p24 antigen as well as antibodies to HIV-1 (Group M and O) and HIV-2. Hematologyon 05-23-2020 aPTT Coag (PPP) [Time] 30 {sec} 25 - 35 [facility] [employer] Work Phone: Comment on above: THE APTT IS NO LONGE R USED FOR MONITORING UNFRACTIONATED HEPARIN THERAPY. FOR MONITORING HEPARIN THERAPY, USE THE HEPARIN ASSAY. Hematocrit (Bld) [Volume fraction] 38.2 % below low threshold See Below [facility] [employer] Work Phone: Comment on above: Reference Range: 41. 0 - 52.0 Hemoglobin (Bld) [Mass/Vol] 11.3 g/dL below low threshold See Below [facility] [employer] Phone: Comment on above: Reference Range: 13. 5 - 17.5 INR Coag (PPP) [Relative time] 1.0 {INR} 0.9 - 1.1 [facility] [employer] Phone: MCV (RBC) [Entitic vol] 78 fL below low threshold 80 - 100 [facility] [employer] Phone: Platelets (Bld) [#/Vol] 168 {x10E9/L} 150 - 450 [facility] [employer] Phone: PT Coag (PPP) [Time] 11.3 {sec} See Below [facility] [employer] Work Phone: Comment on above: Reference Range: 10. 1 - 13.3 RBC (Bld) [#/Vol] 4.87 {x10E12/L} See Below [facility] Work Phone: Comment on above: Reference Range: 4.5 0 - 5.90 WBC (Bld) [#/Vol] 0.0 {/100_WBC} 0.0-0.0 [facility] [employer] Work Phone: WBC (Bld) [#/Vol] 5.7 {x10E9/L} 4.4 - 11.3 [facility] [employer] Work Phone: Hemoglobin A1Con 05-23-2020 HbA1c (Bld) [Mass fraction] 5.7 % [facility] [employer] Work Phone: Comment on above: Diagnosis of Diabete s-Adults Non-Diabetic: < or = 5.6% Increased risk for developing diabetes: 5.7-6.4% Diagnostic of diabetes: > or = 6.5%. Monitoring of Diabetes Age (y) Therapeutic Goal (%) Adults: >18 <7.0 Pediatrics: 13-18 <7.5 7-12 <8.0 0- 6 7.5-8.5 [place] [employer]. Diabetes Care 33(S1), Jun 2009. HbA1c (Bld) [Mass fraction] 117 {MG/DL} [facility] [employer] Work Phone: Hepatic Function Panelon Albumin BCP dye [Mass/Vol] 4.6 g/dL 3.4 - 5.0 [facility] [employer] Phone: ALP [Catalytic activity/Vol] 123 U/L above high threshold 33 - 120 [facility] [employer] Phone: ALT With P-5'-P [Catalytic activity/Vol] 12 U/L 10 - 52 [facility] Phone: Comment on above: Patients treated wit h Sulfasalazine may generate falsely decreased results for ALT. AST With P-5'-P [Catalytic activity/Vol] 18 U/L 9 - 39 [facility] [employer] Work Phone: Bilirubin [Mass/Vol] 0.5 mg/dL 0.0 - 1.2 [facility] [employer] Work Phone: Bilirubin.direct [Mass/Vol] 0.1 mg/dL 0.0 - 0.3 [facility] [employer] Phone: Protein [Mass/Vol] 7.6 g/dL 6.4 - 8.2 [facility] [employer] Work Phone: Hepatitis B Surface Antibody on 05-23-2020 HBV surface Ag IA Ql 26.1 {mIU/mL} <10 [facility] [employer] Work Phone: Comment on above: SOURCE: INTERPRETIVE CRITERIA:<10 mIU/mL....NONREACTIVE >=10 mIU/mL...REACTIVE . Biotin interference may cause falsely decreased results. Patients taking a Biotin dose of up to 5 mg/day should refrain from taking Biotin for 24 hours before sample collection. Providers may contact their local laboratory for further information. Hepatitis B Surface Antigeno n 05-23-2020 Hepatitis B Surface Antigen NONREACTIVE See Below [facility] [employer] Work Phone: Comment on above: SOURCE: Reference Ra nge: NONREACTIVE Biotin interference may cause falsely decreased results. Patients taking a Biotin dose of up to 5 mg/day should refrain from taking Biotin for 24 hours before sample collection. Providers may contact their local laboratory for further information. SOURCE: Reference Ra nge: NONREACTIVE Results from patients taking biotin supplements or receiving high-dose biotin therapy should be interpreted with caution due to possible interference with this test. Providers may contact their local laboratory for further information. Imm/Pathon 05-23-2020 EBV early IgM IA Qn (S) Negative NEGATIVE [facility] [employer] Work Phone: Nicotine+Metabolites, Serumo n 05-23-2020 Cotinine [Mass/Vol] <2 [email or web address] Work Phone: Nicotine [Mass/Vol] <2 [email or web address] Work Phone: Comment on above: Consistent with abst inence from nicotine-containingproducts for at least 1 week.INTERPRETIVE INFORMATION: Nicotine and Metabolites, Serum or Plasma, QuantitativeMethodology: Quantitative Liquid Chromatography-Tandem Mass SpectrometryPositive cutoff: 2 ng/mLFor medical purposes only; not valid for forensic use. This test is designed to evaluate recent use of nicotine-containing products. Passive and active exposure cannot be discriminated definitively, although a cutoff of 10 ng/mL cotinine is frequently used for surgery qualification purposes. For smoking cessation programs or compliance testing, the absence of expected drug(s) and/or drug metabolite(s) may indicate non-compliance, inappropriate timing of specimen collection relative to drug administration, poor drug absorption, or limitations of testing. This test cannot distinguish between use of tobacco and purified nicotine products. The concentration value must be greater than or equal to the cutoff to be reported as positive. Test developed and characteristics determined by [facility]. See Compliance Statement B: [employer]/CSPerformed By: [facility] [place], [place] [id number] Director: Ansley Hameed MD Iijtk-6-Loyhkgjfgasrq ne [Mass/Vol] <2 [facility] Work Phone: Otheron 05-23-2020 Amphetamines Screen Ql Negative Cutoff 20 [facility] Work Phone: Annotation comment [Interpretation] Narrative See Note [facility] Work Phone: Comment on above: INTERPRETIVE INFORMA TION: Drug Screen 9 Panel, Serum or Plasma - Immunoassay Screen with Reflex to Mass Spectrometry Confirmation/Quantitation1. Methodology: Qualitative Immunoassay Screen2. Drugs/Drug classes reported as Positive are automatically reflexed to mass spectrometry confirmation/quantitation testing. An immunoassay unconfirmed positive screen result may be useful for medical purposes but does not meet forensic standards. 3. The absence of expected drug(s) and/or drug metabolite(s) may indicate noncompliance, inappropriate timing of specimen collection relative to drug administration, poor drug absorption, or limitations of testing. The concentration at which the screening test can detect a drug or metabolite varies within a drug class. Specimens for which drugs or drug classes are detected by the screen are automatically reflexed to a second, more specific technology (mass spectrometry). The concentration value must be greater than or equal to the cutoff to be reported as positive. Interpretive questions should be directed to the laboratory.4. For medical purposes only; not valid for forensic use.Test developed and characteristics determined by [facility]. See Compliance Statement B: [employer]/CSPerformed By: [employer] [place], [place] [id number] Director: Ansley Hameed MD Barbiturates Screen Ql Negative Cutoff 50 [facility] Work Phone: Benzodiazepines Screen Ql Negative Cutoff 50 [facility] Work Phone: Cannabinoids Screen Ql Positive Cutoff 20 [facility] Work Phone: [phone] Comment on above: If the screen is pos itive, then confirmation by mass spectrometry will be added. Additional charges will apply. Unconfirmed positive may be useful for medical purposes, but does not meet forensic standards. Cocaine Screen Ql Negative Cutoff 20 [facility] [email or web address] Work Phone: [phone] EBV capsid IgG IA Qn (S) Positive Abnormal NEGATIVE [facility] [employer] Work Phone: [phone] Comment on above: SOURCE: EBV capsid IgM IA Qn (S) Negative NEGATIVE [facility] [employer] Work Phone: [phone] EBV nuclear IgG IA Qn (S) Positive Abnormal NEGATIVE [facility] [employer] Phone: [phone] Erythrocyte distribution width (RBC) [Ratio] 16.5 % above high threshold See Below [facility] Work Phone: [phone] Comment on above: Reference Range: 11. 5 - 14.5 MCHC (RBC) [Mass/Vol] 29.6 g/dL below low threshold See Below [employer] Work Phone: Comment on above: Reference Range: 32. 0 - 36.0 Methadone Screen Ql Negative Cutoff 25 [facility] [email or web address] Work Phone: [phone] Methamphetamine Ql Negative Cutoff 20 [facility] ns[email or web address] Work Phone: [phone] Opiates Screen Ql Negative Cutoff 20 [email or web address] Work Phone: [phone] Oxycodone Ql Negative Cutoff 20 [email or web address] Work Phone: [phone] Phencyclidine Screen Ql Negative Cutoff 10 [facility] [email or web address] Work Phone: [phone] SEE BELOW [employer] Phone: Comment on above: . EBV INTERPRETATION CHART. VCA-IGG VCA-IGM NA-IGG EA-IGG. PRIMARY ACUTE +/- +/- - +/-LATE ACUTE + +/- +/- +/-RECOVERING + - - +PREVIOUS INFECTION + - +/- - Phosphorus, Serumon 05-23-20 20 Phosphate [Mass/Vol] 4.0 mg/dL 2.5 - 4.9 [facility] [employer] Work Phone: Comment on above: The performance clinton acteristics of phosphorus testing in heparinized plasma have been validated by the individual laboratory site where testing is performed. Testing on heparinized plasma is not approved by the FDA; however, such approval is not necessary. Prostate Specific Antigenon 05-23-2020 Prostate specific Ag [Mass/Vol] 0.28 ng/mL See Below [facility] [employer] Work Phone: Comment on above: SOURCE: Reference Ra nge: 0.00 - 4.00The FDA requires that the method used for PSA assay be reported to the physician. Values obtained with different assay methods must not be used interchangeably. This test was performed at [facility] using the [employer] PSA method, which is a sandwich immunoassay using chemiluminescence for quantitation. The assay is approvedfor measurement of prostate-specific antigen (PSA) in serum and may be used in conjunction with a digital rectalexamination in men 50 years and older as an aid in detection of prostate cancer. 6-Qzwuv-pwntqbhmm inhibitors (e.g. Proscar, Finasteride, Avodart, Dutasteride and Naya) for the treatment of BPH have been shown to lower PSA levels by an average of 50% after 6 months of treatment. SYPHILIS SCREENING WITH REFL EXon 05-23-2020 T. pallidum IgG+IgM IA Ql (S) NONREACTIVE See Below [facility] [employer] Work Phone: Comment on above: SOURCE: Reference Ra nge: NONREACTIVENo significant level of Treponema pallidum antibody detected. Repeat testing in 2 to 4 weeks may be considered if early infection or incubating syphilis infection is suspected. T-SPOT. TBon 05-23-2020 T-SPOT. TB Negative Cutoff 1 [facility] [employer] Work Phone: Comment on above: Reference Range: Nor mal Value: NegativeA negative test result does not exclude the possibility of exposure to or infection with Mycobacterium tuberculosis (M. tuberculosis). Patients with recent exposure to TB infected individuals exhibiting a negative T-SPOT.TB result should be considered for retesting within 6 weeks or if other relevant clinical symptoms indicate. Results from T-SPOT.TB testing must be used in conjunction with each individual's epidemiological history, current medical status, and results of other diagnostic evaluations. The T-SPOT.TB test is qualitative and results are reported as positive, borderline or negative, given that the test controls perform as expected. In line with the Centers for Disease Control and Prevention's 2010 recommendation to report quantitative measurements alongside the qualitative result, the laboratory provides spot counts for informational purposes only. The T-SPOT.TB test should not be interpreted as a quantitative test. T-SPOT. TB 0 [facility] [employer] Work Phone: T-SPOT. TB Passed [facility] [employer] Work Phone: Urinalysison 05-23-2020 Appearance (U) Canceled [facility] [employer] Work Phone: Comment on above: TEST URINALYSIS WAS CANCELLED, 05/23/2020 10:54 DONE IN OFFICE. Color (U) Canceled [facility] [employer] Work Phone: Comment on above: TEST URINALYSIS WAS CANCELLED, 05/23/2020 10:54 DONE IN OFFICE. Glucose Ql (U) Canceled [facility] [employer] Work Phone: Comment on above: TEST URINALYSIS WAS CANCELLED, 05/23/2020 10:54 DONE IN OFFICE. Ketones Ql (U) Canceled [facility] [employer] Work Phone: Comment on above: TEST URINALYSIS WAS CANCELLED, 05/23/2020 10:54 DONE IN OFFICE. Leukocyte esterase Test strip Ql (U) Canceled [facility] [employer] Work Phone: Comment on above: TEST URINALYSIS WAS CANCELLED, 05/23/2020 10:54 DONE IN OFFICE. pH (U) Canceled [facility] [employer] Work Phone: Comment on above: TEST URINALYSIS WAS CANCELLED, 05/23/2020 10:54 DONE IN OFFICE. Protein (U) [Mass/Vol] Canceled [facility] [employer] Work Phone: Comment on above: TEST URINALYSIS WAS CANCELLED, 05/23/2020 10:54 DONE IN OFFICE. RBC (U) [#/Vol] Canceled [facility] [employer] Work Phone: Comment on above: TEST URINALYSIS WAS CANCELLED, 05/23/2020 10:54 DONE IN OFFICE. Specific gravity (U) [Rel density] Canceled [facility] [employer] Work Phone: Comment on above: TEST URINALYSIS WAS CANCELLED, 05/23/2020 10:54 DONE IN OFFICE. Urinalysis Canceled [facility] [employer] Work Phone: Comment on above: Concentrations > = 2 0 mg/dL of ascorbic acid can be expected to cause strong interference in the reactions testing for glucose, nitrite and blood. It is recommended to discontinue Vitamin C administration and retest in 10 hours. TEST URINALYSIS WAS CANCELLED, 05/23/2020 10:54 DONE IN OFFICE. Varicella Zoster IgG Antibod [facility] 05-23-2020 VZV IgG IA Ql (S) Positive NEGATIVE [facility] [employer] Work Phone: Comment on above: SOURCE: INTERPRETATI VE COMMENT NEGATIVE: No IgG antibodies specific to VZV detected. It is likely that the patient has not had a previous exposure to VZV through infection or vaccination. Alternatively, the patient may have been exposed to VZV but a failure to respond may indicate immunodeficiency. EQUIVOCAL:Equivocal results; obtain additional sample for retesting. POSITIVE: IgG antibody to VZV detected. This may indicate that the patient was exposed to VZV through infection or vaccination.The interpretation of serological tests should take into accountthe immunological status of the patient. Test results forpatients, including immunocompromised patients, neonates, andpediatric patients, reflect their capacity to respondimmunologically to the virus as well as their exposure to thepathogen. Patients treated with IVIG may demonstrate alteredresults in serological assays. 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70-1.30 [employer] Phone: Creatinine 12.83 mL/min Invalid Interpretation Code [employer] Phone: eGFR (non-black) 10 mL/min/{1.73_m2} Low >60 [employer] Phone: eGFR (non-black) 9 mL/min/{1.73_m2} Low >60 [employer] Phone: Glucose 158 mg/dL High 70-110 [employer] Phone: Potassium 4.9 mmol/L Invalid Interpretation Code 3.5-5.1 [employer] Phone: Sodium 131 mmol/L Low 136-145 [employer] Phone: Urea nitrogen 32 mg/dL High 7-18 [employer] Phone: Lab Report: Bedside Glucoseo n 01-03-2016 Glucose 164 mg/dL High 70-110 [employer] Phone: Lab Report: CRPon 01-03-2016 C reactive protein (CRP) 6.88 mg/dL High Units converted. See lab report for original value. [employer] Phone: Lab Report: Erythrocyte Sed Rateon 01-03-2016 Erythrocyte sedimentation rate 110 mm/h High 0-15 [facility] Phone: Lab Report: Vancomycin, Warrior om Levelon 01-03-2016 vancomycin level, serum, random 15.3 ug/mL High 0.0-15.0 [facility] [employer] Phone: Replaced Document: (P) CBC-C omplete Blood Cnt No Diffon 01-03-2016 Erythrocytes (RBC) 3.73 10*6/uL Low 4.6-6.2 [facility] [employer] Work Phone: Hematocrit (HCT) 28.1 % Low 40-54 [facility] [employer] Phone: Hemoglobin (HGB) 8.7 g/dL Low 13.0-16.5 [facility] [employer] Phone: MCH 23.3 pg Low 27.0-32.0 [facility] [employer] Phone: MCHC 31.0 G/GL Low 32-36 [facility] Phone: MCV 75.3 fL Low 80-94 [facility] [employer] Phone: Platelets 354 10*3/mm3 Invalid Interpretation Code 150-450 [facility] [employer] Phone: PMV by Quentin 9.6 fL Invalid Interpretation Code 6.2-12.0 [facility] [employer] Phone: RDW-CA 16.6 % High 11.6-14.6 [place] [employer] Phone: red blood cell distribution width, size density 43.2 fL Invalid Interpretation Code 35.1-43.9 [facility] Phone: WBC (Leukocytes) 9.3 10*3/uL Invalid Interpretation Code 4.4-11.0 [place] [employer] Phone: Microbiology: Culture, Deep Woundon 01-02-2016 GE use only - for [employer] import when terms are not otherwise specified Cult, AnaerobicNo anaerobic bacteria isolated. Invalid Interpretation Code [employer] Phone: Lab Report: CBC W/Diff, Auto matedon 01-01-2016 Basophils/100 leukocytes 0.3 % Invalid Interpretation Code 0-1 [employer] Phone: Eosinophils/100 leukocytes 3.5 % Invalid Interpretation Code 0-5 [employer] Phone: immature granulocytes, percentage of total cells, blood 1.000 % High 0.0-0.9 [employer] Phone: Lymphocytes 1.19 X10 3/UL Invalid Interpretation Code 0.83-4.51 [employer] Phone: Lymphocytes/100 leukocytes 12.4 % Low 19-41 [employer] Phone: Monocytes/100 leukocytes 9.2 % Invalid Interpretation Code 0-10 [employer] Phone: neutrophil count, blood 7.0 X10 3/UL Invalid Interpretation Code 2.0-7.7 [employer] Phone: Neutrophils/100 leukocytes 73.6 % High 47-70 [employer] Phone: Lab Report: Hemoglobin A1con 01-01-2016 HbA1c 8.4 % High 4.2-6.3 [employer] Phone: Microbiology: Culture, Blood (WB)on 01-01-2016 Bacteria culture BCNo growth in 5 days. Invalid Interpretation Code [employer] Phone: Microbiology: Culture, Wound on 12-31-2015 wound culture Vancomycin $ 1 S Invalid Interpretation Code [employer] Phone: Lab Report: Prealbuminon Prealbumin 10.1 mg/dL Low 20.0-40.0 [employer] Phone: Lab Report: Renal Profileon 12-30-2015 Albumin 1.9 g/dL Low 3.4-5.0 [employer] Phone: Phosphorus Concentratation-Rando m 4.4 mg/dL Invalid Interpretation Code 2.5-4.9 [employer] Phone: Replaced Document: (P) CBC W /Diff, Automatedon 12-30-2015 Hypochromia presence 1+ Invalid Interpretation Code [employer] Phone: Lab Report: Magnesiumon 12-08 Magnesium 2.0 mg/dL Invalid Interpretation Code 1.8-2.4 [employer] Phone: Replaced Document: (P) CBC W /Diff, Automatedon 12-27-2015 complete blood count (CBC), comments COMMENT Invalid Interpretation Code [employer] Phone: Lab Report: Hepatitis B Surf chris Agon 12-14-2015 BSA (Body Surface Area) Negative Invalid Interpretation Code Negative [employer] Phone: Lab Report: PTH,INTACTon Parathyrin intact (PTH) 64 pg/mL Invalid Interpretation Code 14-72 [employer] Phone: Lab Report: Protein+Creatini ne Ratio,Urineon 12-13-2015 Protein [Mass] in unspecified time Urine 224.9 mg/dL High <11.9 [employer] Phone: protein/creatinine, urine, point, quantitative 3327 MG/G CRE High 0-200 [employer] Phone: Urine, creatinine 67.60 mg/dL Invalid Interpretation Code NO RANGE EST. 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 10-30-2015 Tobacco smoking status NHIS Never Invalid Interpretation Code [employer] Phone: Tobacco use CPHS Never smoker Invalid Interpretation Code [employer] Phone: Lab Report: Vitamin B12on vitamin b12, serum 563 pg/mL Invalid Interpretation Code 211-911 [employer] Phone: Lab Report: Ferritinon 10-18 Ferritin 70 ng/mL Invalid Interpretation Code 26-388 [employer] Phone: Lab Report: Folates, (Folic Acid)on 10-19-2015 Folate 13.30 ng/mL Invalid Interpretation Code 3.1-17.5 [employer] Phone: Lab Report: Ironon 6 Iron 56 ug/dL Low 65-175 [employer] Phone: Lab Report: Iron Binding Cap acity,Totalon 10-19-2015 iron binding capacity, total 245 ug/dL Low 250-450 [employer] Phone: Lab Report: CRP, High Sensit ivity [facility] 10-10-2015 c-reactive protein, quantitative, serum 9.00 mg/L High [employer] Phone: Lab Report: Lipid Profileon 10-10-2015 Cholesterol 139 mg/dL Invalid Interpretation Code 200 [employer] Phone: HDL Cholesterol 46 mg/dL Invalid Interpretation Code [employer] Phone: LDL Cholesterol 76 mg/dL Invalid Interpretation Code 0-130 [employer] Phone: Triglyceride 87 mg/dL Invalid Interpretation Code [employer] Phone: very low density lipoproteins 17 mg/dL Invalid Interpretation Code 5-40 [employer] Phone: Lab Report: (P) Urinalysis, Completeon 10-09-2015 Nitrite Urine Negative Invalid Interpretation Code Negative [employer] Phone: Occult Blood, urine 10 High Negative [facility] [employer] Work Phone: specific gravity, urine 1.015 Invalid Interpretation Code 1.002-1.030 [employer] Phone: Urine, bilirubin presence Negative Invalid Interpretation Code Negative [employer] Phone: Urine, clarity Sl. Cloudy Invalid Interpretation Code Clear [employer] Phone: Urine, color Yellow Invalid Interpretation Code Yellow [employer] Phone: Urine, glucose presence Normal mg/dl Invalid Interpretation Code Normal [employer] Phone: Urine, ketones presence 5 High Negative [employer] Phone: Urine, leukocyte esterase presence Negative Invalid Interpretation Code Negative [employer] Phone: Urine, pH 6.0 [pH] Invalid Interpretation Code 5.0 - 8.0 [employer] Phone: Urine, protein 100 mg/dL High Negative [employer] Phone: urobilinogen, urine, by dipstick Normal mg/dl Invalid Interpretation Code Normal [employer] Phone: Lab Report: Creatinine, Urin ximena 10-09-2015 Urine, creatinine 69.50 mg/dL Invalid Interpretation Code NO RANGE EST. [employer] Phone: Lab Report: Lipaseon 016 lipase, serum 148 U/L Invalid Interpretation Code 73-393 [employer] Phone: Lab Report: Liver Profileon 10-09-2015 Alanine aminotransferase (ALT) 26 U/L Invalid Interpretation Code 12-78 [employer] Phone: Alkaline phosphatase (ALP) 77 U/L Invalid Interpretation Code 50-136 [employer] Phone: Aspartate aminotransferase (AST) 33 U/L Invalid Interpretation Code 15-37 [employer] Phone: Bilirubin (direct) 0.05 mg/dL Invalid Interpretation Code 0.00-0.30 [employer] Phone: Bilirubin (total) 0.20 mg/dL Invalid Interpretation Code 0.20-1.00 [employer] Phone: Globulin 4.7 g/dL High 2.3-3.5 [employer] Phone: Protein 7.5 g/dL Invalid Interpretation Code 6.4-8.2 [employer] Phone: Lab Report: Urinalysis, Comp leteon 10-09-2015 Urine, bacteria in sediment 0 /[HPF] Invalid Interpretation Code None Seen [employer] Phone: Urine, epithelial cells in sediment 0-5 SEEN Invalid Interpretation Code 0-5 [employer] Phone: Urine, erythrocytes in sediment by volume 0-5 SEEN Invalid Interpretation Code 0-5 [employer] Phone: Urine, mucus presence in sediment 0 SEEN Invalid Interpretation Code [employer] Phone: WBC (Leukocytes) 0 SEEN Invalid Interpretation Code 0-5 [employer] Phone: Lab Report: Urine Sodiumon 0 10-09-2015 Urine, sodium 60 mmol/L Invalid Interpretation Code Not Establ. [employer] Phone: Lab Report: Microalbumin,Ran dom Urineon 09-11-2015 Urine, microalbumin 199 mg/dL Invalid Interpretation Code Units converted. See lab report for original value. [employer] Phone: Lab Report: Comprehensive Me tabolic Profilon 04-15-2015 Albumin/Globulin Ratio 0.9 {ratio} Invalid Interpretation Code 0.9-2.4 [employer] Phone: Lab Report: Troponin-Ion Troponin I ng/mL Invalid Interpretation Code <0.06 [facility] [employer] Work Phone: Replaced Document: (P) CBC W /Diff, Automatedon 12-26-2014 Absolute Neutrophil count 1.9 X10 3/UL Low 2.0-7.7 [facility] [employer] Work Phone: Lymphocytes 0.91 X10 3/UL Invalid Interpretation Code 0.83-4.51 [facility] [employer] Work Phone: Office Visit: [facility] w upon 09-30-2014 Smoking cessation education (procedure) yes Invalid Interpretation Code [facility] [employer] Work Phone: Lab Report: Transferrinon Transferrin 225 mg/dL Invalid Interpretation Code 200-370 [facility] [employer] Work Phone: Vital Signs Date Time Vital Sign Value Performing Clinician Faci lity 12-27-2024 19:23-0400 Body temperature 98 [degF] Dr. Ron Coronado MD Work Phone: [facility] 12-27-2024 19:23-0400 Diastolic blood pressure 76 mm[Hg] Dr. Ron Coronado MD Work Phone: [facility] 12-27-2024 19:23-0400 Heart rate 76 /min Dr. Ron Coronado MD Work Phone: [facility] 12-27-2024 19:23-0400 Respiratory rate 16 /min Dr. Ron Coronado MD Work Phone: [facility] 12-27-2024 19:23-0400 SaO2% (BldA) [Mass fraction] 100 % Dr. Ron Coronado MD Work Phone: [facility] 12-27-2024 19:23-0400 Systolic blood pressure 133 mm[Hg] Dr. Ron Coronado MD Work Phone: [facility] 12-27-2024 16:53-0400 Body height 190.[address] Ron Coronado MD Work Phone: [facility] 12-27-2024 16:53-0400 Body mass index (BMI) [Ratio] 18.3 kg/m2 Dr. Ron Coronado MD Work Phone: [facility] 12-27-2024 16:53-0400 Body weight 66.[address] Ron Coronado MD Work Phone: [facility] 12-21-2024 09:24-0400 Diastolic blood pressure 84 mm[Hg] Geovanna Brothers MD Work Phone: [facility] 12-21-2024 09:24-0400 Heart rate 83 /min Geovanna Brothers MD Work Phone: [facility] 12-21-2024 09:24-0400 Systolic blood pressure 154 mm[Hg] Geovanna Brothers MD Work Phone: [facility] 12-21-2024 07:34-0400 Body temperature 98.4 [degF] Geovanna Brothers MD Work Phone: [facility] 12-21-2024 07:34-0400 Respiratory rate 17 /min Geovanna Brothers MD Work Phone: [facility] 12-21-2024 07:34-0400 SaO2% (BldA) [Mass fraction] 100 % Geovanna Brothers MD Work Phone: [facility] 12-21-2024 04:45-0400 Body mass index (BMI) [Ratio] 16.84 kg/m2 Geovanna Brothers MD Work Phone: [facility] 12-21-2024 04:45-0400 Body weight 61.1 kg Geovanna Brothers MD Work Phone: [facility] 12-14-2024 09:53-0400 Diastolic blood pressure 63 mm[Hg] Hd [address] [facility] 12-14-2024 09:53-0400 Heart rate 86 /min Hd [address] [facility] 12-14-2024 09:53-0400 Systolic blood pressure 152 mm[Hg] Hd [address] [facility] 12-14-2024 09:45-0400 Body temperature 96.8 [degF] Hd [address] [facility] 12-09-2024 17:00-0400 Body temperature 97.5 [degF] Mariaa Dwyer MD Work Phone: [facility] 12-09-2024 17:00-0400 Diastolic blood pressure 82 mm[Hg] Mariaa Dwyer MD Work Phone: [facility] 12-09-2024 17:00-0400 Heart rate 79 /min Mariaa Dwyer MD Work Phone: [facility] 12-09-2024 17:00-0400 Respiratory rate 18 /min Mariaa Dwyer MD Work Phone: [facility] 12-09-2024 17:00-0400 SaO2% (BldA) [Mass fraction] 100 % Mariaa Dwyer MD Work Phone: [facility] 12-09-2024 17:00-0400 Systolic blood pressure 143 mm[Hg] Mariaa Dwyer MD Work Phone: [facility] 12-09-2024 12:54-0400 Body temperature 37 Mariaa Dwyer MD Work Phone: [facility] Comment on above: NOTE: Patient Results are Not Corrected for Temperature 12-09-2024 12:52-0400 Body temperature 37.0 degrees [facility] Comment on above: Result Comment: NOTE: Patient Results ar e Not Corrected for Temperature Performed By: #### 2 [id number] ####JASON Carrasquillo ([id number])[facility] ([facility])[id number] [place] [address] 12-06-2024 23:10-0400 Body height 190.5 cm Mariaa Dwyer MD Work Phone: [facility] 12-06-2024 23:10-0400 Body mass index (BMI) [Ratio] 15.66 kg/m2 Mariaa Dwyer MD Work Phone: [facility] 12-06-2024 23:10-0400 Body weight 56.84 kg Mariaa Dwyer MD Work Phone: [facility] 12-06-2024 21:27-0400 Diastolic blood pressure 50 mm[Hg] Jose Enrique Bradley DO Work Phone: [facility] 12-06-2024 21:27-0400 Heart rate 77 /min Jose Enrique Jarvisersen DO Work Phone: [facility] 12-06-2024 21:27-0400 Respiratory rate 16 /min Jose Enrique Bradley DO Work Phone: [facility] 12-06-2024 21:27-0400 SaO2% (BldA) [Mass fraction] 99 % Jose Enrique Jarvisersen DO Work Phone: [facility] 12-06-2024 21:27-0400 Systolic blood pressure 108 mm[Hg] Jose Enrique Jarvisersen DO Work Phone: [facility] 12-06-2024 21:05-0400 Body temperature 98.29 [degF] Jose Enrique Jarvisersen DO Work Phone: [facility] 12-06-2024 18:30-0400 Body height 190.5 cm Jose Enrique Bradley DO Work Phone: [facility] 12-06-2024 18:30-0400 Body mass index (BMI) [Ratio] 16.37 kg/m2 Jose Enrique Bradley DO Work Phone: [facility] 12-06-2024 18:30-0400 Body weight 59.42 kg Jose Enrique Bradley DO Work Phone: [facility] 12-03-2024 10:05-0400 Body mass index (BMI) [Ratio] 16.46 kg/m2 Nathan Lizarraga MD Work Phone: [facility] 12-03-2024 10:05-0400 Body temperature 97.2 [degF] Nathan Lizarraga MD Work Phone: [facility] 12-03-2024 10:05-0400 Body weight 59.74 kg Nathan Lizarraga MD Work Phone: [facility] 12-03-2024 10:05-0400 Diastolic blood pressure 66 mm[Hg] Nathan Lizarraga MD Work Phone: [facility] 12-03-2024 10:05-0400 Heart rate 78 /min Nathan Lizarraga MD Work Phone: [facility] 12-03-2024 10:05-0400 SaO2% (BldA) [Mass fraction] 99 % Nathan Lizarraga MD Work Phone: [facility] 12-03-2024 10:05-0400 Systolic blood pressure 103 mm[Hg] Nathan Lizarraga MD Work Phone: [facility] 11-30-2024 10:21-0400 Body temperature 97.2 [degF] [address] 11-30-2024 10:21-0400 Diastolic blood pressure 80 mm[Hg] [address] 11-30-2024 10:21-0400 Heart rate 76 /min [address] 11-30-2024 10:21-0400 Systolic blood pressure 117 mm[Hg] [address] 11-27-2024 08:59-0400 Diastolic blood pressure 77 mm[Hg] Brandi Cavanaugh MD Work Phone: [facility] 11-27-2024 08:59-0400 Systolic blood pressure 119 mm[Hg] Brandi Cavanaugh MD Work Phone: [facility] 11-27-2024 08:00-0400 Heart rate 79 /min Brandi Cavanaugh MD Work Phone: [facility] 11-27-2024 08:00-0400 Respiratory rate 20 /min Brandi Cavanaugh MD Work Phone: [facility] 11-27-2024 07:45-0400 Body temperature 98.2 [degF] Brandi Cavanaugh MD Work Phone: [facility] 11-27-2024 07:45-0400 SaO2% (BldA) [Mass fraction] 100 % Brandi Cavanaugh MD Work Phone: [facility] 11-26-2024 09:14-0400 Body mass index (BMI) [Ratio] 15.93 kg/m2 Brandi Cavanaugh MD Work Phone: [facility] 11-26-2024 09:14-0400 Body weight 57.8 kg Brandi Cavanaugh MD Work Phone: [facility] 11-24-2024 21:05-0400 Body height 190.5 cm Brandi Cavanaugh MD Work Phone: [facility] 11-23-2024 13:30-0400 Diastolic blood pressure 71 mm[Hg] [address] 11-23-2024 13:30-0400 Heart rate 77 /min [address] 11-23-2024 13:30-0400 Respiratory rate 15 /min [address] 11-23-2024 13:30-0400 SaO2% (BldA) [Mass fraction] 100 % [address] 11-23-2024 13:30-0400 Systolic blood pressure 128 mm[Hg] [address] 11-23-2024 10:20-0400 Body height 190.[address] 11-23-2024 10:20-0400 Body mass index (BMI) [Ratio] 16.25 kg/m2 [address] 11-23-2024 10:20-0400 Body temperature 97.5 [degF] [address] 11-23-2024 10:20-0400 Body weight 58.97 kg [facility] [address] [facility] 11-22-2024 13:38-0400 Body temperature 97.2 [degF] Hd [address] [facility] 11-22-2024 13:38-0400 Heart rate 78 /min Hd [address] [facility] 11-22-2024 13:10-0400 Diastolic blood pressure 41 mm[Hg] Hd [address] [facility] 11-22-2024 13:10-0400 Systolic blood pressure 83 mm[Hg] Hd [address] [facility] 11-17-2024 11:53-0400 Body mass index (BMI) [Ratio] 16.27 kg/m2 Brandi Cavanaugh MD Work Phone: [facility] 11-17-2024 11:53-0400 Body temperature 96.69 [degF] Brandi Cavanaugh MD Work Phone: [facility] 11-17-2024 11:53-0400 Body weight 59.06 kg Brandi Cavanaugh MD Work Phone: [facility] 11-17-2024 11:53-0400 Diastolic blood pressure 70 mm[Hg] Brandi Cavanaugh MD Work Phone: [facility] 11-17-2024 11:53-0400 Heart rate 94 /min Brandi Cavanaugh MD Work Phone: [facility] 11-17-2024 11:53-0400 SaO2% (BldA) [Mass fraction] 98 % Brandi Cavanaugh MD Work Phone: [facility] 11-17-2024 11:53-0400 Systolic blood pressure 115 mm[Hg] Brandi Cavanaugh MD Work Phone: [facility] 11-17-2024 10:15-0400 Heart rate 84 /min Hd [address] [facility] 11-17-2024 09:45-0400 Diastolic blood pressure 76 mm[Hg] Hd [address] [facility] 11-17-2024 09:45-0400 Systolic blood pressure 110 mm[Hg] Hd [address] [facility] 11-17-2024 09:15-0400 Diastolic blood pressure 65 mm[Hg] Hd [address] [facility] 11-17-2024 09:15-0400 Heart rate 81 /min Hd [address] [facility] 11-17-2024 09:15-0400 Systolic blood pressure 109 mm[Hg] Hd [address] [facility] 11-17-2024 07:07-0400 Body temperature 96.4 [degF] Hd [address] [facility] 11-15-2024 10:10-0400 Body temperature 96.1 [degF] Hd [address] [facility] 11-15-2024 10:10-0400 Diastolic blood pressure 62 mm[Hg] Hd [address] [facility] 11-15-2024 10:10-0400 Heart rate 82 /min Hd [address] [facility] 11-15-2024 10:10-0400 Systolic blood pressure 93 mm[Hg] Hd [address] [facility] 11-12-2024 20:35-0400 Body temperature 95.9 [degF] Hd [address] [facility] 11-12-2024 20:35-0400 Heart rate 82 /min Hd [address] [facility] 11-12-2024 20:00-0400 Diastolic blood pressure 86 mm[Hg] Hd [address] [facility] 11-12-2024 20:00-0400 Systolic blood pressure 137 mm[Hg] Hd [address] [facility] 11-10-2024 10:08-0400 Body temperature 96.6 [degF] Hd [address] [facility] 11-10-2024 10:08-0400 Heart rate 81 /min Hd [address] [facility] 11-10-2024 09:30-0400 Diastolic blood pressure 73 mm[Hg] Hd [address] [facility] 11-10-2024 09:30-0400 Systolic blood pressure 126 mm[Hg] Hd [address] [facility] 11-08-2024 19:11-0400 Body temperature 97.9 [degF] Hd [address] [facility] 11-08-2024 19:11-0400 Heart rate 83 /min Hd [address] [facility] 11-08-2024 18:30-0400 Diastolic blood pressure 71 mm[Hg] Hd [address] [facility] 11-08-2024 18:30-0400 Systolic blood pressure 80 mm[Hg] Hd [address] [facility] 11-03-2024 11:04-0400 Body mass index (BMI) [Ratio] 16.62 kg/m2 Eli Quezada MD Work Phone: [facility] 11-03-2024 11:04-0400 Body temperature 98.1 [degF] Eli Quezada MD Work Phone: [facility] 11-03-2024 11:04-0400 Body weight 60.33 kg Eli Quezada MD Work Phone: [facility] 11-03-2024 11:04-0400 Diastolic blood pressure 89 mm[Hg] Eli Quezada MD Work Phone: [facility] 11-03-2024 11:04-0400 Heart rate 90 /min Eli Quezada MD Work Phone: [facility] 11-03-2024 11:04-0400 SaO2% (BldA) [Mass fraction] 98 % Eli Quezada MD Work Phone: [facility] 11-03-2024 11:04-0400 Systolic blood pressure 137 mm[Hg] Eli Quezada MD Work Phone: [facility] 11-03-2024 09:38-0400 Diastolic blood pressure 60 mm[Hg] Hd [address] [facility] 11-03-2024 09:38-0400 Heart rate 90 /min Hd [address] [facility] 11-03-2024 09:38-0400 Systolic blood pressure 96 mm[Hg] Hd [address] [facility] 11-03-2024 09:36-0400 Body temperature 96.8 [degF] Hd [address] [facility] 11-01-2024 10:10-0400 Body temperature 97.5 [degF] Hd [address] [facility] 11-01-2024 10:10-0400 Heart rate 86 /min Hd [address] [facility] 11-01-2024 09:40-0400 Diastolic blood pressure 74 mm[Hg] Hd [address] [facility] 11-01-2024 09:40-0400 Systolic blood pressure 100 mm[Hg] Hd [address] [facility] 10-29-2024 20:12-0400 Body temperature 98.1 [degF] Hd [address] [facility] 10-29-2024 20:12-0400 Heart rate 78 /min Hd [address] [facility] 10-29-2024 19:40-0400 Diastolic blood pressure 101 mm[Hg] Hd [address] [facility] 10-29-2024 19:40-0400 Systolic blood pressure 179 mm[Hg] Hd [address] [facility] 10-27-2024 10:35-0400 Body temperature 96.8 [degF] Hd [address] [facility] 10-27-2024 10:35-0400 Diastolic blood pressure 44 mm[Hg] Hd [address] [facility] 10-27-2024 10:35-0400 Heart rate 82 /min Hd [address] [facility] 10-27-2024 10:35-0400 Systolic blood pressure 93 mm[Hg] Hd [address] [facility] 10-23-2024 11:00-0400 Body temperature 96.8 [degF] Hd [address] [facility] 10-23-2024 11:00-0400 Heart rate 80 /min Hd [address] [facility] 10-23-2024 10:51-0400 Diastolic blood pressure 93 mm[Hg] Hd [address] [facility] 10-23-2024 10:51-0400 Systolic blood pressure 157 mm[Hg] Hd [address] [facility] 10-21-2024 15:21-0400 Body temperature 97.2 [degF] Geovanna Brothers MD Work Phone: [facility] 10-21-2024 15:21-0400 Diastolic blood pressure 72 mm[Hg] Geovanna Brothers MD Work Phone: [facility] 10-21-2024 15:21-0400 Heart rate 86 /min Geovanna Brothers MD Work Phone: [facility] 10-21-2024 15:21-0400 Respiratory rate 16 /min Geovanna Brothers MD Work Phone: [facility] 10-21-2024 15:21-0400 SaO2% (BldA) [Mass fraction] 97 % Geovanna Brothers MD Work Phone: [facility] 10-21-2024 15:21-0400 Systolic blood pressure 162 mm[Hg] Geovanna Brothers MD Work Phone: [facility] 10-21-2024 05:37-0400 Body mass index (BMI) [Ratio] 19.11 kg/m2 Geovanna Brothers MD Work Phone: [facility] 10-21-2024 05:37-0400 Body weight 69.36 kg Geovanna Brothers MD Work Phone: [facility] 10-15-2024 23:26-0400 Body temperature 37 Geovanna Brothers MD Work Phone: [facility] 10-15-2024 23:26-0400 SaO2% (BldA) [Mass fraction] 99 % Geovanna Brothers MD Work Phone: [facility] 10-15-2024 23:06-0400 Body temperature 37.0 degrees [facility] Comment on above: Performed By: #### [id number] ####JASON Carrasquillo ([id number])[facility] ([facility])[address] [place] [address] 10-15-2024 23:06-0400 SaO2% (BldA) [Mass fraction] 99 % [facility] Comment on above: Performed By: #### [id number] ####JASON Carrasquillo ([id number])[facility] ([facility])[address] [place] [address] 10-15-2024 19:42-0400 Body temperature 37 Geovanna Brothers MD Work Phone: [facility] 10-15-2024 19:42-0400 SaO2% (BldA) [Mass fraction] 99 % Geovanna Brothers MD Work Phone: [facility] 10-15-2024 19:41-0400 Body temperature 37.0 degrees [facility] Comment on above: Result Comment: NOTE: Patient Results ar e Not Corrected for Temperature Performed By: #### [id number] ####JASON Carrasquillo ([id number])[facility] ([facility])[address] [place] [address] 10-15-2024 19:41-0400 SaO2% (BldA) [Mass fraction] 99 % [facility] Comment on above: Performed By: #### [id number] ####JASON Carrasquillo ([id number])[facility] ([facility])[address] [place] [address] 10-15-2024 18:35-0400 Body temperature 37 Geovanna Brothers MD Work Phone: [facility] 10-15-2024 18:35-0400 SaO2% (BldA) [Mass fraction] 100 % Geovanna Brothers MD Work Phone: [facility] 10-15-2024 18:14-0400 Body temperature 37.0 degrees [facility] Comment on above: Performed By: #### [id number] ####JASON Carrasquillo ([id number])[facility] ([facility])[address] [place] [address] 10-15-2024 18:14-0400 SaO2% (BldA) [Mass fraction] 100 % [facility] Comment on above: Performed By: #### [id number] ####JASON Carrasquillo ([id number])[facility])[address] [place] [address] 10-15-2024 16:35-0400 Body temperature 37 Geovanna Brothers MD Work Phone: [facility] 10-15-2024 16:35-0400 SaO2% (BldA) [Mass fraction] 99 % Geovanna Brothers MD Work Phone: [facility] 10-15-2024 16:33-0400 Body temperature 37.0 degrees [facility] Comment on above: Result Comment: NOTE: Patient Results ar e Not Corrected for Temperature Performed By: #### [id number] ####JASON Carrasquillo ([id number])[facility] ([facility])[address] [place] [address] 10-15-2024 16:33-0400 SaO2% (BldA) [Mass fraction] 99 % [facility] Comment on above: Performed By: #### [id number] ####JASON Carrasquillo ([id number])[facility] ([facility])[address] [place] [address] 10-15-2024 14:13-0400 Body temperature 37 Geovanna Brothers MD Work Phone: [facility] 10-15-2024 13:50-0400 Body temperature 37.0 degrees [facility] Comment on above: Performed By: #### [id number] ####JASON Carrasquillo ([id number])[facility] ([facility])[address] [place] [address] 09-09-2024 10:09-0400 Body mass index (BMI) [Ratio] 18.51 kg/m2 Nathan Lizarraga MD Work Phone: [facility] 09-09-2024 10:09-0400 Body temperature 97.7 [degF] Nathan Lizarraga MD Work Phone: [facility] 09-09-2024 10:09-0400 Body weight 67.18 kg Nathan Lizarraga MD Work Phone: [facility] 09-09-2024 10:09-0400 Diastolic blood pressure 90 mm[Hg] Nathan Lizarraga MD Work Phone: [facility] 09-09-2024 10:09-0400 Heart rate 74 /min Nathan Lizarraga MD Work Phone: [facility] 09-09-2024 10:09-0400 SaO2% (BldA) [Mass fraction] 95 % Nathan Lizarraga MD Work Phone: [facility] 09-09-2024 10:09-0400 Systolic blood pressure 148 mm[Hg] Nathan Lizarraga MD Work Phone: [facility] 06-22-2024 10:24-0500 Body mass index (BMI) [Ratio] 18.85 kg/m2 Ron Coronado MD Work Phone: [facility] 06-22-2024 10:24-0500 Body weight 66.6 kg Ron Coronado MD Work Phone: [facility] 06-22-2024 10:24-0500 Diastolic blood pressure 72 mm[Hg] Ron Coronado MD Work Phone: [facility] 06-22-2024 10:24-0500 Heart rate 84 /min Ron Cornoado MD Work Phone: [facility] 06-22-2024 10:24-0500 Respiratory rate 16 /min Ron Coronado MD Work Phone: [facility] 06-22-2024 10:24-0500 Systolic blood pressure 122 mm[Hg] Ron Coronado MD Work Phone: [facility] 12-08-2023 12:10-0400 SaO2% (BldA) [Mass fraction] 100 % Janet Jiménez MD Work Phone: [facility] 12-08-2023 11:35-0400 Body height 190.5 cm Janet Jiménez MD Work Phone: [facility] 12-08-2023 11:35-0400 Body mass index (BMI) [Ratio] 18.75 kg/m2 Janet Jiménez MD Work Phone: [facility] 12-08-2023 11:35-0400 Body weight 68.04 kg Janet Jiménez MD Work Phone: [facility] 11-18-2023 10:10-0400 Body height 190.5 cm Karen Antonio MD Work Phone: [facility] 11-18-2023 10:10-0400 Body mass index (BMI) [Ratio] 19.1 kg/m2 Karen Antonio MD Work Phone: [facility] 11-18-2023 10:10-0400 Body weight 69.31 kg Karen Antonio MD Work Phone: [facility] 11-18-2023 10:10-0400 Diastolic blood pressure 84 mm[Hg] Karen Antonio MD Work Phone: [facility] 11-18-2023 10:10-0400 Heart rate 78 /min Karen Antonio MD Work Phone: [facility] 11-18-2023 10:10-0400 SaO2% (BldA) [Mass fraction] 96 % Karen Antonio MD Work Phone: [facility] 11-18-2023 10:10-0400 Systolic blood pressure 153 mm[Hg] Karen Antonio MD Work Phone: [facility] 08-19-2023 14:24-0400 Body height 188 cm Brandi Cavanaugh MD Work Phone: [facility] 08-19-2023 14:24-0400 Body mass index (BMI) [Ratio] 19.32 kg/m2 Brandi Cavanaugh MD Work Phone: [facility] 08-19-2023 14:24-0400 Body temperature 97.81 [degF] Brandi Cavanaugh MD Work Phone: [facility] 08-19-2023 14:24-0400 Body weight 68.27 kg Brandi Cavanaugh MD Work Phone: [facility] 08-19-2023 14:24-0400 Diastolic blood pressure 78 mm[Hg] Brandi Cavanaugh MD Work Phone: [facility] 08-19-2023 14:24-0400 Heart rate 72 /min Brandi Cavanaugh MD Work Phone: [facility] 08-19-2023 14:24-0400 SaO2% (BldA) [Mass fraction] 98 % Brandi Cavanaugh MD Work Phone: [facility] 08-19-2023 14:24-0400 Systolic blood pressure 132 mm[Hg] Brandi Cavanaugh MD Work Phone: [facility] 08-19-2023 14:20-0400 Body height 188 cm Eduardo Cleary MD Work Phone: [facility] 08-19-2023 14:20-0400 Body mass index (BMI) [Ratio] 19.32 kg/m2 Eduardo Cleary MD Work Phone: [facility] 08-19-2023 14:20-0400 Body temperature 97.81 [degF] Eduardo Cleary MD Work Phone: [facility] 08-19-2023 14:20-0400 Body weight 68.27 kg Eduardo Cleary MD Work Phone: [facility] 08-19-2023 14:20-0400 Diastolic blood pressure 81 mm[Hg] Eduardo Cleary MD Work Phone: [facility] 08-19-2023 14:20-0400 Heart rate 72 /min Eduardo Cleary MD Work Phone: [facility] 08-19-2023 14:20-0400 SaO2% (BldA) [Mass fraction] 98 % Eduardo Cleary MD Work Phone: [facility] 08-19-2023 14:20-0400 Systolic blood pressure 132 mm[Hg] Eduardo Cleary MD Work Phone: [facility] 03-07-2023 09:23-0400 Body height 190.5 cm [facility] 03-07-2023 09:23-0400 Body mass index (BMI) [Ratio] 18.8 kg/m2 [facility] 03-07-2023 09:23-0400 Body temperature 98 [degF] [facility] 03-07-2023 09:23-0400 Body weight 68.17 kg [facility] 03-07-2023 09:23-0400 Diastolic blood pressure 76 mm[Hg] [facility] 03-07-2023 09:23-0400 Heart rate 82 /min [facility] 03-07-2023 09:23-0400 Respiratory rate 18 /min [facility] 03-07-2023 09:23-0400 SaO2% (BldA) [Mass fraction] 100 % [facility] 03-07-2023 09:23-0400 Systolic blood pressure 126 mm[Hg] [facility] 03-06-2023 11:55-0400 Diastolic blood pressure 87 mm[Hg] [facility] 03-06-2023 11:55-0400 Heart rate 70 /min [facility] 03-06-2023 11:55-0400 Respiratory rate 18 /min [facility] 03-06-2023 11:55-0400 SaO2% (BldA) [Mass fraction] 100 % [facility] 03-06-2023 11:55-0400 Systolic blood pressure 164 mm[Hg] [facility] 03-06-2023 07:01-0400 Body mass index (BMI) [Ratio] 19.3 kg/m2 [facility] 03-06-2023 07:01-0400 Body temperature 97.9 [degF] [facility] 03-06-2023 07:01-0400 Body weight 70.1 kg [facility] 12-24-2022 10:39-0400 Body weight 67.31 kg Ron Coronado MD Work Phone: [facility] 12-24-2022 10:39-0400 Diastolic blood pressure 82 mm[Hg] Ron Coronado MD Work Phone: [facility] 12-24-2022 10:39-0400 Heart rate 72 /min Ron Coronado MD Work Phone: [facility] 12-24-2022 10:39-0400 Respiratory rate 16 /min Ron Coronado MD Work Phone: [facility] 12-24-2022 10:39-0400 Systolic blood pressure 126 mm[Hg] Ron Coronado MD Work Phone: [facility] 08-26-2022 15:01-0400 Body weight 65.77 kg Ivet Tesfaye MD Work Phone: [facility] 08-26-2022 15:01-0400 Diastolic blood pressure 88 mm[Hg] Ivet Tesfaye MD Work Phone: [facility] 08-26-2022 15:01-0400 Heart rate 79 /min Ivet Tesfaye MD Work Phone: [facility] 08-26-2022 15:01-0400 SaO2% (BldA) [Mass fraction] 100 % Ivet Tesfaye MD Work Phone: [facility] 08-26-2022 15:01-0400 Systolic blood pressure 150 mm[Hg] Ivet Tesfaye MD Work Phone: [facility] 06-25-2022 10:36-0500 Body weight 66.22 kg Ron Coronado MD Work Phone: [facility] 06-25-2022 10:36-0500 Diastolic blood pressure 84 mm[Hg] Ron Coronado MD Work Phone: [facility] 06-25-2022 10:36-0500 Heart rate 72 /min Ron Coronado MD Work Phone: [facility] 06-25-2022 10:36-0500 Respiratory rate 16 /min Ron Coronado MD Work Phone: [facility] 06-25-2022 10:36-0500 Systolic blood pressure 136 mm[Hg] Ron Coronado MD Work Phone: [facility] 05-24-2022 11:17-0500 Body temperature 97.5 [degF] [facility] Work Phone: 05-24-2022 11:17-0500 Diastolic blood pressure 114 mm[Hg] [facility] Work Phone: 05-24-2022 11:17-0500 Heart rate 83 /min [facility] Work Phone: 05-24-2022 11:17-0500 Respiratory rate 16 /min [facility] Work Phone: 05-24-2022 11:17-0500 SaO2% (BldA) [Mass fraction] 100 % [facility] Work Phone: 05-24-2022 11:17-0500 Systolic blood pressure 184 mm[Hg] [facility] Work Phone: 05-24-2022 08:25-0500 Body height 190.5 cm [facility] Work Phone: 05-24-2022 08:25-0500 Body mass index (BMI) [Ratio] 18.4 kg/m2 [facility] Work Phone: 05-24-2022 08:25-0500 Body weight 66.9 kg [facility] Work Phone: 03-11-2022 13:39-0400 Body temperature 97.3 [degF] [facility] Work Phone: 03-11-2022 13:39-0400 Diastolic blood pressure 97 mm[Hg] [facility] Work Phone: 03-11-2022 13:39-0400 Respiratory rate 16 /min [facility] Work Phone: 03-11-2022 13:39-0400 SaO2% (BldA) [Mass fraction] 100 % [facility] Work Phone: 03-11-2022 13:39-0400 Systolic blood pressure 203 mm[Hg] [facility] Work Phone: 03-11-2022 13:35-0400 Heart rate 63 /min [facility] Work Phone: 03-11-2022 12:29-0400 Body height 190.5 cm [facility] Work Phone: 03-11-2022 12:29-0400 Body mass index (BMI) [Ratio] 19.2 kg/m2 [facility] Work Phone: 03-11-2022 12:29-0400 Body weight 69.76 kg [facility] Work Phone: 12-31-2021 09:37-0400 Body height 190.5 cm Pamella Kent Narrows PA-C Work Phone: [facility] 12-31-2021 09:37-0400 Body temperature 97.2 [degF] Pamella David PA-C Work Phone: [facility] 12-31-2021 09:37-0400 Body weight 68.95 kg Pamella David PA-C Work Phone: [facility] 12-31-2021 09:37-0400 Diastolic blood pressure 75 mm[Hg] Pamella Kent Narrows PA-C Work Phone: [facility] 12-31-2021 09:37-0400 Heart rate 74 /min Pamella Kent Narrows PA-C Work Phone: [facility] 12-31-2021 09:37-0400 SaO2% (BldA) [Mass fraction] 97 % Pamella Kent Narrows PA-C Work Phone: [facility] 12-31-2021 09:37-0400 Systolic blood pressure 126 mm[Hg] Pamella Hernandez PA-C Work Phone: [facility] 12-20-2021 10:59-0400 Body weight 67.41 kg Ron Coronado MD Work Phone: [facility] 12-20-2021 10:59-0400 Diastolic blood pressure 80 mm[Hg] Ron Coronado MD Work Phone: [facility] 12-20-2021 10:59-0400 Heart rate 60 /min Ron Coronado MD Work Phone: [facility] 12-20-2021 10:59-0400 Respiratory rate 16 /min Ron Coronado MD Work Phone: [facility] 12-20-2021 10:59-0400 Systolic blood pressure 124 mm[Hg] Ron Coronado MD Work Phone: [facility] 09-17-2021 11:51-0400 Body temperature 98 [degF] Dr. Ron Coronado Work Phone: [facility] Work Phone: 09-17-2021 11:51-0400 Diastolic blood pressure 88 mm[Hg] Dr. Ron Coronado Work Phone: [facility] Work Phone: 09-17-2021 11:51-0400 Heart rate 77 /min Dr. Ron Coronado Work Phone: [facility] Work Phone: 09-17-2021 11:51-0400 Respiratory rate 16 /min Dr. Ron Coronado Work Phone: [facility] Work Phone: 09-17-2021 11:51-0400 SaO2% (BldA) [Mass fraction] 99 % Dr. Ron Coronado Work Phone: [facility] Work Phone: 09-17-2021 11:51-0400 Systolic blood pressure 156 mm[Hg] Dr. Ron Coronado Work Phone: [facility] Work Phone: 09-17-2021 07:44-0400 Body height 190.[address] Ron Coronado Work Phone: [facility] Work Phone: 09-17-2021 07:44-0400 Body mass index (BMI) [Ratio] 18.1 kg/m2 Dr. Ron Coronado Work Phone: [facility] Work Phone: 09-17-2021 07:44-0400 Body weight 65.[address] Ron Coronado Work Phone: [facility] Work Phone: 09-17-2021 07:15-0400 Body temperature 97.8 [degF] Dr. Ron Coronado Work Phone: [facility] Work Phone: 09-17-2021 07:15-0400 Diastolic blood pressure 76 mm[Hg] Dr. Ron Coronado Work Phone: [facility] Work Phone: 09-17-2021 07:15-0400 Heart rate 67 /min Dr. Ron Coronado Work Phone: [facility] Work Phone: 09-17-2021 07:15-0400 Respiratory rate 18 /min Dr. Ron Coronado Work Phone: [facility] Work Phone: 09-17-2021 07:15-0400 SaO2% (BldA) [Mass fraction] 98 % Dr. Ron Coronado Work Phone: [facility] Work Phone: 09-17-2021 07:15-0400 Systolic blood pressure 171 mm[Hg] Dr. Ron Coronado Work Phone: [facility] Work Phone: 09-17-2021 05:32-0400 Body height 190.[address] Ron Coronado Work Phone: [facility] Work Phone: 09-17-2021 05:32-0400 Body mass index (BMI) [Ratio] 19.2 kg/m2 Dr. Ron Coronado Work Phone: [facility] Work Phone: 09-17-2021 05:32-0400 Body weight 69.[address] Ron Coronado Work Phone: [facility] Work Phone: 09-12-2021 03:52-0400 Heart rate 89 /min [facility] Work Phone: 09-12-2021 03:52-0400 Respiratory rate 17 /min [facility] Work Phone: 09-12-2021 03:52-0400 SaO2% (BldA) [Mass fraction] 98 % [facility] Work Phone: 09-12-2021 01:21-0400 Diastolic blood pressure 126 mm[Hg] [facility] Work Phone: 09-12-2021 01:21-0400 Systolic blood pressure 222 mm[Hg] [facility] Work Phone: 09-12-2021 01:12-0400 Body height 190.5 cm [facility] Work Phone: 09-12-2021 01:12-0400 Body mass index (BMI) [Ratio] 17.6 kg/m2 [facility] Work Phone: 09-12-2021 01:12-0400 Body temperature 98.8 [degF] [facility] Work Phone: 09-12-2021 01:12-0400 Body weight 63.9 kg [facility] Work Phone: 09-07-2021 11:58-0400 Diastolic blood pressure 71 mm[Hg] [facility] Work Phone: 09-07-2021 11:58-0400 Heart rate 62 /min [facility] Work Phone: 09-07-2021 11:58-0400 Respiratory rate 15 /min [facility] Work Phone: 09-07-2021 11:58-0400 SaO2% (BldA) [Mass fraction] 96 % [facility] Work Phone: 09-07-2021 11:58-0400 Systolic blood pressure 143 mm[Hg] [facility] Work Phone: 09-07-2021 08:44-0400 Body height 182.88 cm [facility] Work Phone: 09-07-2021 08:44-0400 Body mass index (BMI) [Ratio] 20.3 kg/m2 [facility] Work Phone: 09-07-2021 08:44-0400 Body temperature 97.9 [degF] [facility] Work Phone: 09-07-2021 08:44-0400 Body weight 68.03 kg [facility] Work Phone: 05-23-2020 11:23-0500 BMI (Body Mass Index) 19.7 kg/m2 [facility] [employer] Work Phone: 05-23-2020 11:23-0500 Body Temperature 97.2 [degF] [facility] [employer] Work Phone: Comment on above: Method: Temporal 05-23-2020 11:23-0500 Body weight 69.58 kg [facility] [employer] Work Phone: 05-23-2020 11:23-0500 BP Diastolic 68 mm[Hg] [facility] [employer] Work Phone: 05-23-2020 11:23-0500 BP Systolic 114 mm[Hg] [facility] [employer] Work Phone: 05-23-2020 11:23-0500 BSA (Body Surface Area) 1.94 m2 [facility] Work Phone: 05-23-2020 11:23-0500 Height 187.96 cm [facility] Work Phone: 05-23-2020 11:23-0500 Pulse (Heart Rate) 70 /min [facility] Work Phone: 05-23-2020 11:23-0500 Pulse Oximetry 98 % [facility] Work Phone: Comment on above: Source: 01-24-2016 11:12-0400 Body Temperature 96.7 [degF] [facility] Work Phone: 01-24-2016 11:12-0400 BP Diastolic 77 mm[Hg] [facility] Work Phone: 01-24-2016 11:12-0400 BP Systolic 134 mm[Hg] [facility] Work Phone: 01-24-2016 11:12-0400 Pulse (Heart Rate) 77 /min [facility] Work Phone: 01-24-2016 11:12-0400 Pulse Oximetry 97 % [facility] Work Phone: 01-24-2016 11:12-0400 Respiratory Rate 18 /min [facility] Work Phone: 10-30-2015 12:47-0400 BMI (Body Mass Index) 24.93 kg/m2 [facility] Work Phone: 10-30-2015 12:47-0400 Weight 88.09 kg [facility] Work Phone: 09-06-2015 13:13-0400 BSA (Body Surface Area) 2.09 m2 [facility] [employer] Work Phone: 09-30-2014 13:10-0400 BP Diastolic 76 mm[Hg] [facility] [employer] Work Phone: 09-30-2014 13:10-0400 BP Systolic 114 mm[Hg] Bianca Funes [facility] [employer] Work Phone: 02-25-2014 10:11-0400 Height 187.96 cm Bianca [facility] [employer] Work Phone: Encounters Encounter Date Encounter Type Care Provider Facility Start: 12-27-2024 Evaluation and management of inpatient Dr. Jessie No MD [facility] Work Phone: Start: 12-27-[address] Ron Coronado MD Work Phone: [facility] Start: [facility]: 12-21-2024 End: 12-23-2024 Telephone encounter Ron Coronado MD Work Phone: [facility] Comment on above: Insurance Authorization Start: 12-14-2024 End: 12-21-2024 Evaluation and management of inpatient Geovanna Brothers MD Work Phone: [facility] 9 Start: 12-14-2024 End: 12-14-2024 ambulatory EDUARDO CLEARY [facility] Start: 12-14-2024 End: 12-14-2024 Subsequent hospital visit by physician Hd Chair 4 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) Start: 12-13-2024 End: 12-13-2024 ambulatory RON YOU [facility] Start: 12-06-2024 End: 12-09-2024 Evaluation and management of inpatient Mariaa Dwyer MD Work Phone: [facility] 9 Comment on above: Hyperkalemia (Primary Dx); Kidney replaced by transplant (HHS-HCC); Steroid-induced hyperglycemia Start: 12-06-2024 End: 12-06-2024 Emergency department patient visit Jose Enrique Bradley DO Work Phone: [facility] Comment on above: Hyperkalemia (Primary Dx) Start: 12-06-2024 End: 12-06-2024 Telephone encounter Ron Coronado MD Work Phone: [facility] Comment on above: Prior Authorization for Transportation Start: 12-06-2024 End: 12-06-2024 ambulatory RON YOU [facility] Start: 12-03-2024 End: 12-03-2024 Office outpatient visit 25 minutes Nathan Lizarraga MD Work Phone: [facility] Comment on above: Immunosuppressive management encounter f ollowing kidney transplant (Primary Dx); Kidney replaced by transplant (HHS-HCC); Chronic kidney disease (CKD), stage IV (severe) (Multi) Start: 12-03-2024 End: 12-03-2024 ambulatory NATHAN LIZARRAGA [facility] Start: 12-02-2024 End: 12-02-2024 ambulatory MONIKA NESBITT [facility] Start: 12-02-2024 End: 12-02-2024 Telemedicine consultation with patient Monika Fairbanks Gris PharmD Work Phone: [facility] Comment on above: Type 1 diabetes mellitus with hyperglyce kellie (Multi) Start: 12-02-2024 End: 12-02-2024 ambulatory MARIAA MENDOZAOTIS ORCHARDSKathy [facility] Start: 11-30-2024 End: 11-30-2024 ambulatory RON YOU [facility] Start: 11-30-2024 End: 11-30-2024 Subsequent hospital visit by physician Hd Chair 4 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 Comment on above: Elevated serum creatinine (Primary Dx); End-stage renal disease (Multi); Kidney replaced by transplant (HHS-HCC); Secondary hyperparathyroidism of renal origin (Multi); Hypocalcemia; Urinary retention; Vitamin D deficiency, unspecified; ESRD (end stage renal disease) (Multi); Pain; Hypertension, unspecified type; Steroid-induced hyperglycemia; Type 1 diabetes mellitus with hyperglycemia (Multi) Start: 11-24-2024 End: 11-24-2024 ambulatory RON [facility] Start: 11-23-2024 End: 11-23-2024 Subsequent hospital visit by physician [facility] 3 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 Start: 11-17-2024 End: 11-17-2024 Office outpatient visit 25 minutes Brandi Cavanaugh MD Work Phone: 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 Comment on above: Refill Request Start: 11-15-2024 End: 11-15-2024 ambulatory RON YOU [facility] Start: 11-15-2024 End: 11-15-2024 Subsequent hospital visit by physician Hd Chair 7 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 Comment on above: Hypocalcemia; Kidney replaced by transplant (HHS-HCC); Essential hypertension; Urinary retention Start: 11-03-2024 End: 11-03-2024 ambulatory ELI QUEZADA [facility] Start: 11-03-2024 End: 11-03-2024 Subsequent hospital visit by physician Hd Chair 6 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 Comment on above: Kidney replaced by transplant (HHS-HCC); Steroid-induced hyperglycemia; Type 1 diabetes mellitus with hyperglycemia (Multi) Start: 11-01-2024 End: 11-01-2024 Subsequent hospital visit by physician Hd Chair 6 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 Comment on above: ESRD (end stage renal disease) (Multi) ( Primary Dx); Kidney replaced by transplant ([facility]) Start: 10-15-2024 End: 10-21-2024 Evaluation and management of inpatient Geovanna Brothers MD Work Phone: [facility] [place] 9 Start: 10-15-2024 Evaluation and management of inpatient GEOVANNA BROTHERS [facility] Start: 10-07-2024 End: 10-07-2024 Patient encounter status Med Echo/Stress [facility] Work Phone: Start: 10-07-2024 End: 10-07-2024 Subsequent hospital visit by physician Med Echo/Stress [facility] Comment on above: Pre-transplant evaluation for kidney tra nsplant Start: 10-07-2024 End: 10-07-2024 ambulatory BRANDI CAVANAUGH [facility] Start: 09-09-2024 End: 09-09-2024 Patient encounter status [facility] [address] [facility] Work Phone: Start: 09-09-2024 End: 09-09-2024 Subsequent hospital visit by physician Warner Menonf X-Ray 2 [facility] [place] Comment on above: Pre-transplant evaluation for kidney tra nsplant Start: 09-09-2024 End: 09-09-2024 ambulatory GEOVANNA ZEV [facility] Start: 09-09-2024 End: 09-09-2024 Office outpatient visit 15 minutes Nathan Lizarraga MD Work Phone: [facility] [place] Comment on above: ESRD on dialysis (Multi) (Primary Dx) Start: 09-09-2024 End: 09-09-2024 ambulatory NATHAN LIZARRAGA [facility] Start: 08-23-2024 End: 08-23-2024 Telephone encounter Ron Coronado MD Work Phone: [facility] [place] Comment on above: Medication Problem Start: 08-17-2024 End: 08-17-2024 Refill Ron Coronado MD Work Phone: [facility] [place] Comment on above: Refill Request Start: 08-10-2024 End: 08-11-2024 Refill Ron Coronado MD Work Phone: [facility] [place] Comment on above: Refill Request Start: 07-06-2024 End: 07-06-2024 Telephone encounter Ron Coronado MD Work Phone: [facility] [place] Comment on above: Results Start: 07-03-2024 End: 07-03-2024 ambulatory RON CORONADO Facility:[facility] Start: 06-22-2024 End: 06-22-2024 Patient encounter procedure Ron Coronado MD Work Phone: [facility] [place] Comment on above: 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) (Primary Dx); Essential hypertension; Depression, unspecified depression type; ESRD (end stage renal disease) (HCC); Current mild episode of major depressive disorder without prior episode (HCC); Encounter for screening examination for other mental health and behavioral disorders; Hyperlipidemia, unspecified hyperlipidemia type; Anemia, unspecified type Start: 06-22-2024 End: 06-22-2024 ambulatory RON CORONADO Facility:[facility] Start: 06-08-2024 End: 06-08-2024 Refill Ron Coronado MD Work Phone: [facility] [place] Comment on above: Refill Request Start: 05-04-2024 End: 05-04-2024 Refill Ron Coronado MD Work Phone: [facility] [place] Comment on above: Refill Request Start: 04-09-2024 End: 04-09-2024 ambulatory Torrie Felipe Facility:[facility] Start: 04-06-2024 End: 04-06-2024 ambulatory RON YOU [facility] Start: 03-30-2024 End: 03-30-2024 Refill Ron Coronado MD Work Phone: [facility] [place] Comment on above: Refill Request Patient Question Start: 03-11-2024 End: 03-11-2024 Patient encounter status [address] Work Phone: Start: 03-11-2024 End: 03-11-2024 Subsequent hospital visit by physician Warner Menon X-Ray 2 [facility] [place] Comment on above: Pre-transplant evaluation for kidney tra nsplant Start: 03-11-2024 End: 03-11-2024 Encounter for other preprocedural examination [facility] Start: 03-11-2024 End: 03-11-2024 ambulatory [facility] Start: 01-30-2024 ambulatory Ron Coronado Facility:[facility] Start: 01-13-2024 Telephone encounter Ron Coronado MD Work Phone: [facility] [place] Comment on above: Forms ([facility]) Start: 01-08-2024 ambulatory Ron Coronado Facility:[facility] Start: 01-08-2024 End: 01-08-2024 ambulatory Ron Coronado Facility:[facility] Start: 12-08-2023 End: 12-08-2023 Patient encounter status Janet Jiménez MD Work Phone: [facility] Work Phone: Start: 12-08-2023 End: 12-08-2023 Subsequent hospital visit by physician Janet Jiménez MD Work Phone: [facility] [place] Comment on above: 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 (Primary Dx); Preoperative cardiovascular examination Start: 12-04-2023 End: 12-04-2023 ambulatory [facility] Facility[facility] Start: 11-19-2023 Patient encounter status Janet Jiménez MD Work Phone: [facility] Work Phone: Start: 11-18-2023 End: 11-18-2023 Office outpatient new 45 minutes Karen Antonio MD Work Phone: [facility] [place] Comment on above: Preop examination (Primary Dx); 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; Preoperative cardiovascular examination Start: 11-18-2023 End: 11-18-2023 Patient encounter status Karen Antonio MD Work Phone: [facility] Work Phone: Start: 11-18-2023 End: 11-18-2023 Preprocedural examination done Karen Antonio MD Work Phone: [facility] Start: 11-11-2023 Refill Ron Coronado MD Work Phone: [facility] [place] Comment on above: Refill Request Start: 10-02-2023 End: 10-02-2023 Patient encounter status [facility] [address] [facility] Work Phone: Start: 10-02-2023 End: 10-02-2023 Subsequent hospital visit by physician [facility] Echo [address] [facility] [place] Comment on above: Pre-transplant evaluation for kidney tra nsplant Start: 09-19-2023 End: 09-19-2023 Subsequent hospital visit by physician Rad External Film EF [facility]TER[facility] Comment on above: Arrived Start: 08-19-2023 End: 08-19-2023 Office outpatient new 30 minutes Brandi Cavanaugh MD Work Phone: [facility] [place] Comment on above: ESRD on dialysis (Multi) (Primary Dx) Start: 08-19-2023 End: 08-19-2023 Office outpatient new 60 minutes Eduardo Cleary MD Work Phone: [facility] [place] Comment on above: ESRD (end stage renal disease) (CMS/HCC) (Primary Dx); Pre-transplant evaluation for kidney transplant Start: 08-19-2023 End: 08-19-2023 Patient encounter status Eduardo Cleary MD Work Phone: [facility] Work Phone: Start: 08-18-2023 Refill Ron Coronado MD Work Phone: [facility] [place] Comment on above: Refill Request Start: 08-14-2023 Telephone encounter Ron Coronado MD Work Phone: [facility] [place] Comment on above: Results Start: 08-13-2023 Telephone encounter Ron Coronado MD Work Phone: [facility] [place] Comment on above: Copy of Last OV Notes Start: 07-18-2023 Telephone encounter Ron Coronado MD Work Phone: [facility] [place] Comment on above: Forms ([facility]-re: [facility]et[facility]) Start: 07-10-2023 Telephone encounter Ron Coronado MD Work Phone: [facility] [place] Comment on above: Medication Problem (New insulin - not co joselin) Start: 05-28-2023 Refill Ron Coronado MD Work Phone: [facility] [place] Comment on above: Refill Request Start: 05-15-2023 Refill Ron Coronado MD Work Phone: [facility] Comment on above: Refill Request Start: 05-08-2023 Refill Mary Pierre BENNETT.EXHAUST EMISSIONS INSPECTOR Work Phone: [facility] Comment on above: Refill Request Start: 03-07-2023 End: 03-07-2023 [facility] Start: 03-06-2023 End: 03-06-2023 Emergency department patient visit [facility]Emergency Department Work Phone: Start: 02-28-2023 Refill Montez Parviz SIPHONER.EXHAUST EMISSIONS INSPECTOR Work Phone: [facility] Comment on above: Refill Request Start: 01-24-2023 Telephone encounter Ron Coronado MD Work Phone: [facility] Comment on above: Forms Start: 01-06-2023 Telephone encounter Ron Coronado MD Work Phone: [facility] Comment on above: Forms ([facility]) Start: 12-30-2022 Telephone encounter Ron Coronado MD Work Phone: [facility] Comment on above: Forms (CNM for [facility]) Start: 12-26-2022 End: 12-26-2022 Patient encounter procedure [facility]-Laboratory , Specimen Work Phone: Start: 12-24-2022 End: 12-24-2022 Patient encounter procedure Ron Coronado MD Work Phone: [facility] Comment on above: Type 1 DM with end-stage renal disease ( HCC) (Primary Dx); Essential hypertension; Hyperlipidemia, unspecified hyperlipidemia type; Current mild episode of major depressive disorder without prior episode (HCC); ESRD (end stage renal disease) ([facility]); 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, unspecified laterality, unspecified ulceration site ([facility]); Secondary hyperparathyroidism of renal origin ([facility]); S/P transmetatarsal amputation of foot, right ([facility]); Type 1 diabetes mellitus with chronic kidney disease on chronic dialysis ([facility]); Alpha 0-thalassemia (HCC) Start: 12-02-2022 End: 12-02-2022 Nursing evaluation of patient and report Nurse Card Admin [facility] Work Phone: Cardiology Comment on above: Screening for ischemic heart disease (Pr imary Dx) Start: 12-02-2022 End: 12-02-2022 Subsequent hospital visit by physician [facility] Work Phone: Nuclear Medicine Start: 11-28-2022 ambulatory [facility] Nuclear Medicine Comment on above: Instructions: NM Stress Test - Friday, at 8:30 AM Start: 11-28-2022 E-mail encounter from caregiver [facility] Provider [facility] Start: 08-29-2022 Refill Ron Coronado MD Work Phone: [facility] Comment on above: Refill Request Forms (DM supply for m/) Start: 08-26-2022 End: 08-26-2022 Patient encounter procedure Ivet Tesfaye MD Work Phone: Cardiology Comment on above: Abnormal EKG (Primary Dx); History of heart artery stent; NSTEMI (non-ST elevated myocardial infarction) (HCC); Precordial pain Start: 06-25-2022 End: 06-25-2022 Patient encounter procedure Ron Coronado MD Work Phone: [facility] [place] Comment on above: Type 1 DM with end-stage renal disease ( HCC) (Primary Dx); Essential hypertension; Hyperlipidemia, unspecified hyperlipidemia type; NSTEMI (non-ST elevated myocardial infarction) (HCC); Current mild episode of major depressive disorder without prior episode (HCC); ESRD (end stage renal disease) (HCC) Start: 06-20-2022 Telephone encounter Ron Coronado MD Work Phone: [facility] [place] Comment on above: Requesting a prior authorization Start: 06-04-2022 Refill Mary Jay APRN.EXHAUST EMISSIONS INSPECTOR Work Phone: [facility] [place] Comment on above: Refill Request Start: 06-02-2022 Refill Mary Jay APRN.EXHAUST EMISSIONS INSPECTOR Work Phone: [facility] Comment on above: Refill Request Start: 05-24-2022 End: 05-24-2022 Emergency department patient visit [facility]-Emergency Department Start: 05-21-2022 Refill Ron Coronado MD Work Phone: [facility] Comment on above: Refill Request Start: 03-19-2022 Refill Mary Pierre ZHONG Work Phone: [facility] Comment on above: Refill Request Start: 03-11-2022 End: 03-11-2022 Admission to same day surgery center [facility]-Endoscopy Start: 03-11-2022 End: 03-11-2022 ambulatory [facility] Work Phone: Start: 02-18-2022 Telephone encounter Ron Coronado MD Work Phone: [facility] Comment on above: Patient Question (Company is having trou ble getting a hold of the patient.) Start: 01-31-2022 Telephone encounter Ron Coronado MD Work Phone: [facility] Comment on above: Forms ([facility]) Start: 01-29-2022 Refill Ron Coronado MD Work Phone: [facility] Comment on above: Refill Request Start: 01-23-2022 Telephone encounter Ron Coronado MD Work Phone: [facility] Comment on above: Forms ([facility]) Start: 12-31-2021 End: 12-31-2021 Patient encounter procedure Pamella Hernandez PA-C Work Phone: General Surgery Comment on above: Encounter for screening for malignant ne oplasm of colon (Primary Dx) Start: 12-20-2021 End: 12-20-2021 Patient encounter procedure Ron Coronado MD Work Phone: [facility] Comment on above: Type 1 diabetes mellitus with other kidn ey complication (HCC) (Primary Dx); Current mild episode of major depressive disorder without prior episode (HCC); ESRD (end stage renal disease) (HCC); Hyperlipidemia, unspecified hyperlipidemia type; Glaucoma suspect of both eyes; History of heart artery stent; NSTEMI (non-ST elevated myocardial infarction) (HCC) Start: 12-11-2021 Telephone encounter Jose Enrique Snow MD Work Phone: General Surgery Comment on above: Procedure Start: 11-30-2021 Refill Ron Coronado MD Work Phone: [facility] [place] Comment on above: Refill Request Start: 11-29-2021 Telephone encounter Nakia Rossi LPN Pre Anesthesia Comment on above: Appointment Start: 09-18-2021 Orders Only Ivet Tesfaye MD Work Phone: Cardiology Comment on above: Essential hypertension (Primary Dx); Screening for ischemic heart disease Start: 09-17-2021 Orders Only Ivet Tesfaye MD Work Phone: Cardiology Comment on above: Essential hypertension (Primary Dx) Start: 09-17-2021 End: 09-17-2021 Evaluation and management of inpatient Dr. Ron Coronado Work Phone: [facility] Start: 09-17-2021 Non-patient / Non-visit Dr. Ron Coronado Work Phone: [facility] Start: 09-12-2021 End: 09-12-2021 Emergency department patient visit [facility]-Emergency Department Start: 09-07-2021 End: 09-07-2021 Emergency department patient visit [facility]-Emergency Department Start: 12-29-2020 AUDIT Miriam Menjivar MD Work Phone: [facility] Work Phone: Start: 05-23-2020 Patient encounter procedure [facility] Work Phone: Start: 05-16-2020 Patient encounter procedure [facility] Work Phone: Start: 03-21-2020 Patient encounter procedure Beck Mcadams [id number] Work Phone: Start: 02-15-2020 Patient encounter procedure Beck Mcadams [id number] Work Phone: Start: 06-13-2016 End: 06-14-2016 Ambulatory NATTHAVAT TANPHAICHITR Facility:[facility] Patient encounter status Miriam Menjivar MD Work Phone: OW-Rtijqh[facility]Dtrrv r Work Phone: Procedures Date Procedure Procedure Detail Performing Clinician Start: 12-27-[address] Ron Coronado MD Work Phone: Start: 12-21-2024 Glucose quantitative blood xcpt reagent strip Geovanna Brothers MD Work Phone: Start: 12-21-2024 Drug screen quantitative tacrolimus Anahi C Springstubb PA-C Work Phone: Start: 12-21-2024 Renal function panel Anahi C Springstubb P A-C Work Phone: Start: 12-20-2024 Glucose quantitative blood xcpt reagent strip Geovanna Brothers MD Work Phone: Start: 12-20-2024 Blood typing serologic rh (d) Ambrosio Brothers MD Work Phone: Start: 12-20-2024 End: 12-20-2024 Renal function panel Ambrosio Brothers MD Work Phone: Start: 12-20-2024 Glucose quantitative blood xcpt reagent strip Geovanna Brothers MD Work Phone: Start: 12-20-2024 Glucose quantitative blood xcpt reagent strip Geovanna Brothers MD Work Phone: Start: 12-20-2024 Drug screen quantitative tacrolimus Anahi C Springstubb PA-C Work Phone: Start: 12-20-2024 Renal function panel Anahi C Springstubb P A-C Work Phone: Start: 12-19-2024 Glucose quantitative blood xcpt reagent strip Geovanna Brothers MD Work Phone: Start: 12-19-2024 Glucose quantitative blood xcpt reagent strip Geovanna Brothers MD Work Phone: Start: 12-19-2024 Glucose quantitative blood xcpt reagent strip Geovanna Brothers MD Work Phone: Start: 12-19-2024 Glucose quantitative blood xcpt reagent strip Geovanna Brothers MD Work Phone: Start: 12-19-2024 End: 12-19-2024 Renal function panel Anahi C Springstubb P A-C Work Phone: Start: 12-19-2024 Drug screen quantitative tacrolimus Anahi C Springstubb PA-C Work Phone: Start: 12-18-2024 Glucose quantitative blood xcpt reagent strip Geovanna Brothers MD Work Phone: Start: 12-18-2024 Glucose quantitative blood xcpt reagent strip Geovanna Brothers MD Work Phone: Start: 12-18-2024 Glucose quantitative blood xcpt reagent strip Geovanna Brothers MD Work Phone: Start: 12-18-2024 Glucose quantitative blood xcpt reagent strip Geovanna Brothers MD Work Phone: Start: 12-18-2024 Drug screen quantitative tacrolimus Anahi C Springstubb PA-C Work Phone: Start: 12-18-2024 Renal function panel Anahi C Springstubb P A-C Work Phone: Start: 12-17-2024 Glucose quantitative blood xcpt reagent strip Geovanna Brothers MD Work Phone: Start: 12-17-2024 Glucose quantitative blood xcpt reagent strip Geovanna Brothers MD Work Phone: Start: 12-17-2024 Glucose quantitative blood xcpt reagent strip Geovanna Brothers MD Work Phone: Start: 12-17-2024 Glucose quantitative blood xcpt reagent strip Geovanna Brothers MD Work Phone: Start: 12-17-2024 Drug screen quantitative tacrolimus Anahi C Springstubb PA-C Work Phone: Start: 12-17-2024 End: 12-17-2024 Renal function panel Anahi C Springstubb P A-C Work Phone: Start: 12-16-2024 Glucose quantitative blood xcpt reagent strip Geovanna Brothers MD Work Phone: Start: 12-16-2024 Glucose quantitative blood xcpt reagent strip Geovanna Brothers MD Work Phone: Start: 12-16-2024 Glucose quantitative blood xcpt reagent strip Geovanna Brothers MD Work Phone: Start: 12-16-2024 Glucose quantitative blood xcpt reagent strip Geovanna Brothers MD Work Phone: Start: 12-16-2024 Drug screen quantitative tacrolimus Anahi Salmon Springstubb PA-C Work Phone: Start: 12-16-2024 Renal function panel Anahi Salmon Springstubb P A-C Work Phone: Start: 12-15-2024 Glucose quantitative blood xcpt reagent strip Geovanna Brothers MD Work Phone: Start: 12-15-2024 Glucose quantitative blood xcpt reagent strip Geovanna Brothers MD Work Phone: Start: 12-15-2024 EXTRA URINE GAN TUBE Paloma Salmon Massey A PRN-EXHAUST EMISSIONS INSPECTOR Work Phone: Start: 12-15-2024 Urinalysis complete W Reflex Culture panel - Urine Paloma Salmon Shilpa SIPHONER-EXHAUST EMISSIONS INSPECTOR Work Phone: Start: 12-15-2024 Urnls dip stick/tablet reagent auto microscopy Paloma Salmon Massey SIPHONER-EXHAUST EMISSIONS INSPECTOR Work Phone: Start: 12-15-2024 End: 12-15-2024 TRANSFUSE RED BLOOD CELLS Paloma Salmon Yan er SIPHONER-EXHAUST EMISSIONS INSPECTOR Work Phone: Start: 12-15-2024 ALLOSURE KIDNEY Paloma Salmon Shilpa APR N-EXHAUST EMISSIONS INSPECTOR Work Phone: Start: 12-15-2024 Drug screen quantitative tacrolimus Anahi Rodriguezstubb PA-C Work Phone: Start: 12-15-2024 End: 12-15-2024 Renal function panel Anahi Salmon Springstubb P A-C Work Phone: Start: 12-15-2024 PREPARE RBC Paloma Salmon Massey APR N-EXHAUST EMISSIONS INSPECTOR Work Phone: Start: 12-15-2024 End: 12-15-2024 Renal function panel Paloma Salmon Shilpa AP RN-EXHAUST EMISSIONS INSPECTOR Work Phone: Start: 12-15-2024 End: 12-15-2024 TRANSFUSE RED BLOOD CELLS Tan bauer MD Work Phone: Start: 12-14-2024 Us trnsplnt kidney real time w/image docmtn Tan Isbell MD Work Phone: Start: 12-14-2024 Blood typing serologic rh (d) Tan Isbell MD Work Phone: Start: 12-14-2024 PREPARE RBC Tan Schmidt Work Phone: Start: 12-14-2024 Drug screen quantitative tacrolimus Eduardo Cleary MD Work Phone: Start: 12-14-2024 Renal function panel Eduardo mcgee MD Work Phone: Start: 12-09-2024 Glucose quantitative blood xcpt reagent strip Nathan Lizarraga MD Work Phone: Start: 12-09-2024 End: 12-09-2024 Chloride bld Sherron Nugent PRN-EXHAUST EMISSIONS INSPECTOR Work Phone: Start: 12-09-2024 Glucose quantitative blood xcpt reagent strip Nathan Lizarraga MD Work Phone: Start: 12-09-2024 Calcium ionized Dinah Miller MD Work Phone: Start: 12-09-2024 Drug screen quantitative tacrolimus Dinah Miller MD Work Phone: Start: 12-09-2024 Glucose quantitative blood xcpt reagent strip Nathan Lizarraga MD Work Phone: Start: 12-08-2024 End: 12-08-2024 Renal function panel Ambrosio Brothers MD Work Phone: Start: 12-08-2024 Drug screen quantitative tacrolimus Dinah Miller MD Work Phone: Start: 12-08-2024 Glucose quantitative blood xcpt reagent strip Nathan Lizarraga MD Work Phone: Start: 12-07-2024 Glucose quantitative blood xcpt reagent strip Mariaa Dwyer MD Work Phone: Start: 12-07-2024 End: 12-07-2024 TRANSFUSE RED BLOOD CELLS Dinah Miller MD Work Phone: Start: 12-07-2024 Glucose quantitative blood xcpt reagent strip Mariaa Dwyer MD Work Phone: Start: 12-07-2024 Us guidance needle placement img s&i Dinah Miller MD Work Phone: Start: 12-07-2024 Glucose quantitative blood xcpt reagent strip Mariaa Dwyer MD Work Phone: Start: 12-07-2024 PREPARE RBC Dinah Miller MD Work Phone: Start: 12-07-2024 Iadna-dna/rna gi pthgn multiplex probe tq 6-11 Tan Isbell MD Work Phone: Start: 12-07-2024 Inf agent det nucleic acid clostridium amp probe Tan Isbell MD Work Phone: Start: 12-07-2024 Glucose quantitative blood xcpt reagent strip Mariaa Dwyer MD Work Phone: Start: 12-07-2024 Iadna cytomegalovirus quantification Tan Isbell MD Work Phone: Start: 12-07-2024 Renal function panel Tan Isbell MD Work Phone: Start: 12-07-2024 End: 12-07-2024 Blood typing serologic rh (d) Tan Isbell MD Work Phone: Start: 12-07-2024 Glucose quantitative blood xcpt reagent strip Mariaa Dwyer MD Work Phone: Start: 12-07-2024 Urinalysis microscopic panel - Urine Qualitative by Automated Tan Isbell MD Work Phone: Start: 12-07-2024 Urnls dip stick/tablet reagent auto microscopy Tan Isbell MD Work Phone: Start: 12-06-2024 Glucose quantitative blood xcpt reagent strip Mariaa Dwyer MD Work Phone: Start: 12-06-2024 Hemodialysis Mariaa Dwyer MD Work Phone: Start: 12-06-2024 End: 12-06-2024 Potassium serum plasma/whole blood Jose Enrique Bradley DO Work Phone: Start: 12-06-2024 Basic metabolic panel calcium total Jose Enrique Bradley DO Work Phone: Start: 11-30-2024 Drug screen quantitative tacrolimus Eduardo Cleary MD Work Phone: Start: 11-30-2024 Renal function panel Eduardo mcgee MD Work Phone: Start: 11-27-2024 Glucose quantitative blood xcpt reagent strip Brandi Cavanaugh MD Work Phone: Start: 11-27-2024 Drug screen quantitative tacrolimus Radha Pearce MD Work Phone: Start: 11-27-2024 Renal function panel Radha Pearce MD Work Phone: Start: 11-27-2024 Glucose quantitative blood xcpt reagent strip Brandi Cavanaugh MD Work Phone: Start: 11-26-2024 Glucose quantitative blood xcpt reagent strip Brandi Cavanaugh MD Work Phone: Start: 11-26-2024 Glucose quantitative blood xcpt reagent strip Brandi Cavanaugh MD Work Phone: Start: 11-26-2024 Glucose quantitative blood xcpt reagent strip Brandi Cavanaugh MD Work Phone: Start: 11-26-2024 History of renal transplant Kidney replaced by transplant ([facility]) Brandi Cavanaugh MD Work Phone: Start: 11-26-2024 End: 11-26-2024 TRANSFUSE RED BLOOD CELLS Joanie mcclure MD Work Phone: Start: 11-26-2024 PREPARE RBC Joanie mcdaniels MD Work Phone: Start: 11-26-2024 Glucose quantitative blood xcpt reagent strip Brandi Cavanaugh MD Work Phone: Start: 11-26-2024 Glucose quantitative blood xcpt reagent strip Brandi Cavanaugh MD Work Phone: Start: 11-26-2024 Drug screen quantitative tacrolimus Radha Pearce MD Work Phone: Start: 11-26-2024 Renal function panel Radha Pearce MD Work Phone: Start: 11-26-2024 Glucose quantitative blood xcpt reagent strip Brandi Cavanaugh MD Work Phone: Start: 11-25-2024 Glucose quantitative blood xcpt reagent strip Brandi Cavanaugh MD Work Phone: Start: 11-25-2024 End: 11-25-2024 Glucose quantitative blood xcpt reagent strip Brandi Cavanaugh MD Work Phone: Start: 11-25-2024 Glucose quantitative blood xcpt reagent strip Brandi Cavanaugh MD Work Phone: Start: 11-25-2024 Blood typing serologic rh (d) Erika Boyd MD Work Phone: Start: 11-25-2024 End: 11-25-2024 Renal function panel Radha Pearce MD Work Phone: Start: 11-25-2024 Us trnsplnt kidney real time w/image docmtn Radha Pearce MD Work Phone: Start: 11-22-2024 Hemodialysis Eduardo cedeno MD Work Phone: Start: 11-19-2024 Creatinine other source Brandi Cavanaugh MD Work Phone: Start: 11-19-2024 Iadna cytomegalovirus quantification Brandi Cavanaugh MD Work Phone: Start: 11-17-2024 Drug screen quantitative tacrolimus Eduardo Cleary MD Work Phone: Start: 11-17-2024 Renal function panel Eduardo mcgee MD Work Phone: Start: 11-15-2024 Glucose quantitative blood xcpt reagent strip Interface Unspecifiedprovider Work Phone: Start: 11-15-2024 Drug screen quantitative tacrolimus Eduardo Cleary MD Work Phone: Start: 11-15-2024 Renal function panel Eduardo mcgee MD Work Phone: Start: 11-12-2024 Drug screen quantitative tacrolimus Eduardo Cleary MD Work Phone: Start: 11-12-2024 Renal function panel Eduardo mcgee MD Work Phone: Start: 11-10-2024 Drug screen quantitative tacrolimus Eduardo Cleary MD Work Phone: Start: 11-10-2024 Renal function panel Eduardo mcgee MD Work Phone: Start: 11-08-2024 Drug screen quantitative tacrolimus Eduardo Cleary MD Work Phone: Start: 11-08-2024 Renal function panel Eduardo mcgee MD Work Phone: Start: 11-08-2024 Hemodialysis Eduardo cedeno MD Work Phone: Start: 11-03-2024 Drug screen quantitative tacrolimus Eduardo Cleary MD Work Phone: Start: 11-03-2024 Renal function panel Eduardo mcgee MD Work Phone: Start: 11-01-2024 Drug screen quantitative tacrolimus Eduardo Cleary MD Work Phone: Start: 11-01-2024 Renal function panel Eduardo mcgee MD Work Phone: Start: 11-01-2024 Hemodialysis Eduardo cedeno MD Work Phone: Start: 10-29-2024 Drug screen quantitative tacrolimus Eduardo Cleary MD Work Phone: Start: 10-29-2024 Renal function panel Eduardo mcgee MD Work Phone: Start: 10-29-2024 Hemodialysis Eduardo cedeno MD Work Phone: Start: 10-27-2024 Hemodialysis Eduardo cedeno MD Work Phone: Start: 10-27-2024 Drug screen quantitative tacrolimus Geovanna Brothers MD Work Phone: Start: 10-27-2024 Renal function panel Geovanna rBothers MD Work Phone: Start: 10-23-2024 Drug screen quantitative tacrolimus Geovanna Brothers MD Work Phone: Start: 10-23-2024 Renal function panel Geovanna Brothers MD Work Phone: Start: 10-23-2024 Hemodialysis Ivelisse Mcqueen MD Work Phone: Start: 10-21-2024 Glucose quantitative blood xcpt reagent strip Eli Quezada MD Work Phone: Start: 10-21-2024 Glucose quantitative blood xcpt reagent strip Eli Quezada MD Work Phone: Start: 10-21-2024 Glucose quantitative blood xcpt reagent strip Eli Quezada MD Work Phone: Start: 10-21-2024 Drug screen quantitative tacrolimus Pauline L Zain SIPHONER-EXHAUST EMISSIONS INSPECTOR Work Phone: Start: 10-21-2024 Renal function panel Pauline L [place] SIPHONER-C CRISIS CLINICIAN Work Phone: Start: 10-20-2024 Glucose quantitative blood xcpt reagent strip Eli Quezada MD Work Phone: Start: 10-20-2024 End: 10-20-2024 TRANSFUSE RED BLOOD CELLS Pauline L Zain A PRN-EXHAUST EMISSIONS INSPECTOR Work Phone: Start: 10-20-2024 Glucose quantitative blood xcpt reagent strip Eli Quezada MD Work Phone: Start: 10-20-2024 Glucose quantitative blood xcpt reagent strip Eli Quezada MD Work Phone: Start: 10-20-2024 PREPARE RBC Pauline L Zain SIPHONER-CN P Work Phone: Start: 10-20-2024 Glucose quantitative blood xcpt reagent strip Eli Quezada MD Work Phone: Start: 10-20-2024 Blood typing serologic rh (d) Pauline L [place] SIPHONER-EXHAUST EMISSIONS INSPECTOR Work Phone: Start: 10-20-2024 Drug screen quantitative tacrolimus Pauline L [place] SIPHONER-EXHAUST EMISSIONS INSPECTOR Work Phone: Start: 10-20-2024 End: 10-20-2024 Renal function panel Omar Noriega MD Work Phone: Start: 10-19-2024 Glucose quantitative blood xcpt reagent strip Eli Quezada MD Work Phone: Start: 10-19-2024 Glucose quantitative blood xcpt reagent strip Eli Quezada MD Work Phone: Start: 10-19-2024 Glucose quantitative blood xcpt reagent strip Eli Quezada MD Work Phone: Start: 10-19-2024 Drug screen quantitative tacrolimus Pauline L [place] SIPHONER-EXHAUST EMISSIONS INSPECTOR Work Phone: Start: 10-19-2024 Renal function panel Omar Noriega MD Work Phone: Start: 10-18-2024 Glucose quantitative blood xcpt reagent strip Eli Quezada MD Work Phone: Start: 10-18-2024 Glucose quantitative blood xcpt reagent strip Eli Quezada MD Work Phone: Start: 10-18-2024 Glucose quantitative blood xcpt reagent strip Eli Quezada MD Work Phone: Start: 10-18-2024 Drug screen quantitative tacrolimus Pauline L [place] SIPHONER-EXHAUST EMISSIONS INSPECTOR Work Phone: Start: 10-18-2024 Renal function panel Omar Noriega MD Work Phone: Start: 10-17-2024 Glucose quantitative blood xcpt reagent strip Eli Quezada MD Work Phone: Start: 10-17-2024 Glucose quantitative blood xcpt reagent strip Eli Quezada MD Work Phone: Start: 10-17-2024 Blood count complete automated Pauline L [place] SIPHONER-EXHAUST EMISSIONS INSPECTOR Work Phone: Start: 10-17-2024 Glucose quantitative blood xcpt reagent strip Eli Quezada MD Work Phone: Start: 10-17-2024 End: 10-17-2024 TRANSFUSE RED BLOOD CELLS Pauline L Zain A PRN-EXHAUST EMISSIONS INSPECTOR Work Phone: Start: 10-17-2024 Us trnsplnt kidney real time w/image docmtn Pauline L [place] SIPHONER-EXHAUST EMISSIONS INSPECTOR Work Phone: Start: 10-17-2024 PREPARE RBC Pauline L Zain SIPHONER-CN P Work Phone: Start: 10-17-2024 Drug screen quantitative tacrolimus Pauline L Zain SIPHONER-EXHAUST EMISSIONS INSPECTOR Work Phone: Start: 10-17-2024 Renal function panel Omar Noriega MD Work Phone: Start: 10-16-2024 Glucose quantitative blood xcpt reagent strip Eli Quezada MD Work Phone: Start: 10-16-2024 Glucose quantitative blood xcpt reagent strip Eli Quezada MD Work Phone: Start: 10-16-2024 Glucose quantitative blood xcpt reagent strip Eli Quezada MD Work Phone: Start: 10-16-2024 Glucose quantitative blood xcpt reagent strip Geovanna Brothers MD Work Phone: Start: 10-16-2024 End: 10-16-2024 Renal function panel Omar Noriega MD Work Phone: Start: 10-16-2024 Blood count complete automated Tan Isbell MD Work Phone: Start: 10-15-2024 Chloride bld Geovanna Brothers MD Work Phone: Start: 10-15-2024 Us trnsplnt kidney real time w/image docmtn Omar Noriega MD Work Phone: Start: 10-15-2024 End: 10-15-2024 TRANSFUSE PLATELETS Tan Schmidt Work Phone: Start: 10-15-2024 End: 10-15-2024 Chloride bld Omar Noriega MD Work Phone: Start: 10-15-2024 PREPARE PLATELETS Tan Schmidt Work Phone: Start: 10-15-2024 End: 10-15-2024 PULSE OXIMETRY, CONTINUOUS Dieudonne Reynolds MD Work Phone: Start: 10-15-2024 Chloride bld Stanley Guzmanraffi GARNETT Work Phone: Start: 10-15-2024 End: 10-15-2024 Prothrombin time Geovanna Brothers MD Work Phone: Start: 10-15-2024 End: 10-15-2024 Renal altrnsplj impltj grf w/o carpenter's helper nephrectomy Geovanna Brothers MD Work Phone: Start: 10-15-2024 Iaad ia hepatitis b surface antigen Radha Pearce MD Work Phone: Start: 10-15-2024 End: 10-15-2024 Renal function panel Radha Pearce MD Work Phone: Start: 10-15-2024 End: 10-15-2024 Blood typing serologic rh (d) Radha Pearce MD Work Phone: Start: 10-15-2024 Radiologic exam chest single view Radha Pearce MD Work Phone: Start: 10-15-2024 Ecg routine ecg w/least 12 lds trcg only w/o i&r Radha Pearce MD Work Phone: Start: 10-15-2024 PREPARE RBC Radha Pearce MD Work Phone: Start: 10-13-2024 Hemoglobin A1c/Hemoglobin.total in Blood None (Historical) Start: 10-07-2024 Echo tthrc r-t 2d w/wom-mode compl spec&colr d Brandi Cavanaugh MD Work Phone: Start: 09-09-2024 Orthopantogram Geovanna Brothers MD Work Phone: Start: 09-09-2024 Radiologic exam chest 2 views Geovanna Brothers MD Work Phone: Start: 09-09-2024 Lipid 1996 panel - Serum or Plasma Cmc 2 Start: 03-11-2024 Radiologic exam chest 2 views Eli Quezada MD Work Phone: Start: 12-08-2023 End: 12-08-2023 Basic metabolic panel calcium total Liane E [place] SIPHONER-EXHAUST EMISSIONS INSPECTOR Work Phone: Start: 11-17-2023 History of amputation of foot History of amputation of foot (Multi) Karen Antonio MD Work Phone: Start: 10-02-2023 Echo tthrc r-t 2d w/wom-mode compl spec&colr d Eli Quezada MD Work Phone: Start: 09-19-2023 Study Interpretation of outside study Anahi De La O MD Work Phone: Start: 08-19-2023 Lipid 1996 panel - Serum or Plasma Eduardo Cleary MD Work Phone: Start: 03-07-2023 CT of chest and abdomen Start: 03-06-2023 Plain x-ray of elbow Start: 03-06-2023 Plain X-ray of shoulder Start: 12-26-2022 Anaerobic microbial culture Start: 12-26-2022 Investigation of transfusion reaction Start: 12-26-2022 Microbial culture, routine Start: 03-11-2022 End: 03-11-2022 Colonoscopy Start: 09-17-2021 Plain chest X-ray Dr. Ron Coronado Work Phone: Start: 09-12-2021 Radiologic examination of knee Start: 05-26-2020 Echocardiography Nataliia Gruber Start: 05-23-2020 Ct abdomen & pelvis w/o contrast material Nataliia Gruber Start: 05-23-2020 CT Cardiac Scoring Nataliia Gruber Start: 05-12-2020 ABO and Rh group panel - Blood Beck Mcadams Start: 05-12-2020 Antibody cytomegalovirus cmv Beck Mcadams Start: 05-12-2020 Antibody hiv-1 Beck Mcadams Start: 05-12-2020 Antibody varicella-zoster Beck Mcadams Start: 05-12-2020 Assay of amylase Beck Mcadams Start: 05-12-2020 Assay of c-peptide Beck Mcadams Start: 05-12-2020 Assay of nicotine Beck Mcadams Start: 05-12-2020 Assay of phosphorus inorganic Beck Mcadams Start: 05-12-2020 Assay of prostate specific antigen total Beck Mcadams Start: 05-12-2020 Assay of urea nitrogen quantitative Beck Mcadams Start: 05-12-2020 CBC W Auto Differential panel - Blood Beck Mcadams Start: 05-12-2020 Coagulation Screen Beck Mcadams Start: 05-12-2020 Creatinine blood Beck Mcadams Start: 05-12-2020 DRUG-PROFILE 9,BLOOD WITH REFLEX TO CONFIRM Beck Mcadams Start: 05-12-2020 EBV Panel Beck Mcadams Start: 05-12-2020 EKG study Beck Mcadams Start: 05-12-2020 Hemoglobin glycosylated a1c Beck Mcadams Start: 05-12-2020 Hep C screen high risk/other Beck Mcadams Start: 05-12-2020 Hepatic function panel Beck Mcadams Start: 05-12-2020 Hepatitis b core antibody hbcab total Beck Mcadams Start: 05-12-2020 Hepatitis b surf antibody hbsab Beck Mcadams Start: 05-12-2020 Iaad ia hepatitis b surface antigen Beck Mcadams Start: 05-12-2020 Mycobacterium tuberculosis stimulated gamma interferon [Interpretation] in Blood Qualitative Beck Mcadams Start: 05-12-2020 SYPHILIS SCREENING WITH REFLEX Beck Mcadams Start: 05-12-2020 Urnls dip stick/tablet rgnt auto w/o microscopy Beck Mcadams Start: 05-12-2020 Xray Chest 2 View PA + Lateral Beck Mcadams Start: 06-27-2014 End: 10-03-2014 Nephrology Referral Ron Dennison Phone: Start: 06-27-2014 End: 06-27-2015 Ophthalmology Referral Ron Greenberg Phone: Start: 02-14-2014 End: 02-27-2014 *CBC with Differential Eleonora Garcia MD Start: 02-14-2014 End: 02-27-2014 *Renal Panel Eleonora Garcia MD Start: 02-14-2014 End: 02-27-2014 Erythrocyte sedimentation rate Eleonora Garcia MD History of amputatio n of foot History of amputation of foot, unspecified laterality (Multi) Simone Westbrook PA-C Work Phone: History of placement of stent for coronary artery disease History of heart artery stent Ron Coronado MD Work Phone: History of placement of stent for coronary artery disease History of heart artery stent Ivet Tesfaye MD Work Phone: History of placement of stent for coronary artery disease History of heart artery stent Ron Coronado MD Work Phone: History of placement of stent for coronary artery disease History of heart artery stent Ron Coronado MD Work Phone: History of renal transplant Geovanna Brothers MD Work Phone: History of renal transplant Kidney replaced by transplant (HHS-HCC) Geovanna Brothers MD Work Phone: History of renal transplant Kidney replaced by transplant (HHS-HCC) Hd 3 History of renal transplant Kidney replaced by transplant (HHS-HCC) Hd 6 History of renal transplant Kidney replaced by transplant (HHS-HCC) Monika Nesbitt PharmD Work Phone: History of renal transplant Kidney replaced by transplant (HHS-HCC) Eli Quezada MD Work Phone: History of renal transplant Kidney replaced by transplant (HHS-HCC) Hd 4 History of renal transplant Kidney replaced by transplant (HHS-HCC) Brandi Cavanaugh MD Work Phone: History of renal transplant Kidney replaced by transplant (HHS-HCC) Brandi Cavanaugh MD Work Phone: History of renal transplant Kidney replaced by transplant ([facility]) Nathan Lizarraga MD Work Phone: History of renal transplant Kidney replaced by transplant ([facility]) Mariaa Dwyer MD Work Phone: History of renal transplant Kidney replaced by transplant ([facility]) Mariaa Dwyer MD Work Phone: History of renal transplant Geovanna Brothers MD Work Phone: History of renal transplant Kidney replaced by transplant ([facility]) Geovanna Brothers MD Work Phone: Plan of Treatment Date Care Activity Detail Author Start: 2033 PNEUMOCOCCAL (4 - PP SV23 if available, else PCV20) PNEUMOCOCCAL (4 - PPSV23 if available, else PCV20) [facility] Start: 2033 PNEUMOCOCCAL (4 - PP SV23 or PCV20) PNEUMOCOCCAL (4 - PPSV23 or PCV20) [facility] Start: 2033 Pneumococcal vaccination [facility] Start: 2033 Pneumococcal Vaccine : Pediatrics (0 to 5 Years) and At-Risk Patients (6 to 64 Years) (3 of 3 - PPSV23 or PCV20) Pneumococcal Vaccine: Pediatrics (0 to 5 Years) and At-Risk Patients (6 to 64 Years) (3 of 3 - PPSV23 or PCV20) [facility] Start: 2033 Pneumococcal Vaccine : Pediatrics (0 to 5 Years) and At-Risk Patients (6 to 64 Years) (4 - PPSV23 or PCV20) Pneumococcal Vaccine: Pediatrics (0 to 5 Years) and At-Risk Patients (6 to 64 Years) (4 - PPSV23 or PCV20) [facility] Start: 03-06-2033 DTaP/Tdap/Td Vaccine s (2 - Td or Tdap) DTaP/Tdap/Td Vaccines (2 - Td or Tdap) [facility] Start: 03-06-2033 Urine microalbumin profile DTaP,Tdap,Td Vaccine (2 - Td or Tdap) [facility] Start: 03-06-[address] [facility] Start: 03-11-2032 Screening for malign ant neoplasm of colon [facility] Start: 2028 RSV patient s and/or patients aged 60+ years (1 - 1-dose 60+ series) RSV patients and/or patients aged 60+ years (1 - 1-dose 60+ series) [facility] Start: 08-18-2028 Lipid panel Lipid Panel [facility] Start: 11-08-2026 Evaluation and management of inpatient [facility] Work Phone: Start: 06-01-2026 Pneumococcal vaccination [facility] Start: 06-01-2026 Pneumococcal Vaccine : 50+ (4 of 4 - PCV20 or PCV21) Pneumococcal Vaccine: 50+ (4 of 4 - PCV20 or PCV21) [facility] Start: 06-01-[address] [facility] Start: 12-21-2025 [facility] Start: 12-21-2025 Creatinine measurement Serum Creatin ine [facility] Start: 12-06-2025 Creatinine measurement Serum Creatin ine [facility] Start: 11-27-2025 [facility] Start: 10-21-2025 Complete blood count [facility] Start: 10-21-2025 Creatinine measurement Serum Creatin ine [facility] Start: 09-09-2025 Hepatitis B surface antibody level LDL Cholesterol [facility] Start: 09-09-2025 Lipid panel [facility] Start: 07-03-2025 Complete blood count [facility] Start: 07-03-2025 Creatinine measurement Serum Creatin ine [facility] Start: 07-03-2025 Hepatitis B surface antibody level LDL Cholesterol [facility] Start: 06-22-2025 Annual PCP Team Commodity Specialist paulette Disease Visit Annual PCP Team Chronic Disease Visit [facility] Start: 06-22-2025 Anxiety Screening Anxiety Screening [facility] Start: 06-22-2025 BP Controlled (<130/80) BP Controlle d (<130/80) [facility] Start: 06-22-2025 Covid-19 Vaccine () Covid-19 Vaccine () [facility] Comment on above: Postponed from 02/07 (Declined at this time) Start: 05-13-2025 Glaucoma screening [facility] Start: 05-12-2025 Prostate specific antigen measurement Prostate Cancer Screening Discussion [facility] Start: 04-18-2025 End: 11-19-2025 Microalbumin/Creatinine [Mass Ratio] in Urine Albumin-Creatinine Ratio, Urine Random Lab Routine Type 1 diabetes mellitus with hyperglycemia (Multi) Steroid-induced hyperglycemia Expected: 04/18/2025 (Approximate), Expires: 11/19/[address] [facility] Work Phone: Comment on above: Expected: 04/18/2025 (Approximate), Expires: 11/19/2025 Start: 04-15-2025 Hemoglobin A1c measurement HbA1C [facility] Start: 03-25-2025 End: 03-25-2025 ambulatory [facility] Start: 03-11-2025 COLOGUARD (FIT-DNA) COLOGUARD (FIT-D NA) [facility] Start: 03-11-2025 COLORECTAL CANCER SCREENING COLORECTAL CANCER SCREENING [facility] Start: 03-11-2025 Screening for malign ant neoplasm of colon [facility] Start: 02-25-2025 End: 02-25-2025 ambulatory Health system Office [facility] Start: 02-07-2025 Influenza vaccination [facility] Start: 01-28-2025 End: 01-28-2025 ambulatory Health system Office [facility] Start: 01-20-2025 End: 01-20-[address] [facility] Start: 01-20-2025 End: 01-20-2025 Telemedicine consultation with patient 01/20/2025 2:[address] [facility] [address] [place] [id number] Monika Nesbitt, PharmD [address] [place] [address] [facility] Start: 01-17-2025 End: 11-19-2025 Lipid 1996 panel - Serum or Plasma Lipid panel Lab Routine Type 1 diabetes mellitus with hyperglycemia (Multi) Steroid-induced hyperglycemia Expected: 01/17/2025 (Approximate), Expires: 11/19/2025 [facility] Service Area Work Phone: Comment on above: Expected: 01/17/2025 (Approximate), Expires: 11/19/2025 Start: 01-14-2025 End: 01-14-2025 ambulatory Health system Office [facility] Start: 01-13-2025 End: 01-13-2025 ambulatory [facility] Start: 01-13-2025 End: 01-13-2025 Patient encounter procedure 01/13/2025 10:00 AM EDT Office Visit [facility] [address] [phone] Simone Westbrook, [place] [address] Department of Medicine-[place] [address] [facility] Start: 12-31-2024 Hemoglobin A1c measurement HbA1C [facility] Start: 12-31-2024 End: 12-31-2024 ambulatory [facility] Start: 12-29-2024 End: 12-29-2024 ambulatory [facility] Start: 12-27-2024 Admission procedure [facility] Start: 12-27-2024 Hospital admission, emergency, from emergency room, medical nature [facility] Start: 12-27-2024 Leukocyte reduced re d blood cells [facility] Start: 12-27-2024 Administration of bl ood product [facility] Start: 12-24-2024 End: 12-24-2024 Patient encounter procedure [facility] Start: 12-22-2024 End: 12-22-2024 ambulatory [facility] Start: 12-22-2024 End: 12-22-2024 Nutrition therapy 12/22/2024 11:00 AM EDT Nutrition [facility] [address] [facility] [address] [place] [address] Keri Pavon RDN, LD [facility] Start: 12-21-2024 End: 12-21-2024 ambulatory [facility] Start: 12-21-2024 End: 12-21-2024 Home visit 12/21/2024 1:00 PM EDT Home Care Visit [facility] [address] [place] [address] Jayy Wallace, PT [facility] Start: 12-21-2024 End: 12-21-2024 Patient encounter procedure 12/21/2024 11:20 AM EDT Office Visit Family Joey Funes [address] [place], [place] [id number] Ron Coronado MD [address] [place], [place] [id number] 6 month follow up Family Joey Funes Comment on above: 6 month follow up Start: 12-17-2024 End: 12-17-2024 Nutrition therapy 12/17/2024 1:00 PM EDT Nutrition [facility] [address] [facility] [address] [place] [address] Keri Pavon RDN, LD [facility] Start: 12-17-2024 End: 12-17-2024 Patient encounter procedure 12/17/2024 10:00 AM EDT Office Visit [facility] [id number] [address] [facility] [address] [place] [address] [facility] Start: 12-17-2024 End: 12-17-2024 ambulatory 12/17/2024 8:00 AM EDT Infusion [facility] [address] [place] [address] [facility] Start: 12-16-2024 End: 12-16-2024 Patient encounter procedure 12/16/2024 3:00 PM EDT Office Visit [facility] [address] [facility] [address] [place] [address] Simone Westbrook PA-C [address] Department of Medicine-Endocrinology [place] [id number] [facility] Start: 12-16-2024 End: 12-16-2024 Home visit 12/16/2024 2:00 PM EDT Home [facility] [address] [place] [address] Jayy Wallace, PT [facility] Start: 12-14-2024 End: 12-14-2024 Home visit 12/14/2024 11:00 AM EDT Home [facility] [address] [place] [address] Jayy Wallace, PT [facility] Start: 12-10-2024 Orders Only [facility] Comment on above: Kidney replaced by t ransplant ([facility]) Start: 12-09-2024 End: 12-09-2024 Home visit 12/09/2024 3:45 PM EDT Home [facility] [address] [place] [address] Jayy Wallace, PT [facility] Start: 12-09-2024 Hemoglobin A1c measurement [facility] Start: 12-08-2024 Orders Only 12/08/2024 Ord ers Only [facility] [address] [facility] [address] [place] [address] Kidney replaced by transplant ([facility]) [facility] Comment on above: Kidney replaced by t ransplant ([facility]) Start: 12-07-2024 End: 12-07-2024 Patient encounter procedure 12/07/2024 3:45 PM EDT Appointment [facility] [address] [place] [address] Jayy Wallace, PT [facility] Start: 12-07-2024 End: 12-07-2024 Home visit 12/07/2024 3:00 PM EDT Home [facility] [address] [place] [address] Jayy Wallace, PT [facility] Start: 12-07-2024 Complete blood count Hemoglobin/Presley tocrit [facility] Start: 12-07-2024 Creatinine measurement Serum Creatin ine [facility] Start: 12-06-2024 End: 12-06-2024 Patient encounter procedure 12/06/2024 3:45 PM EDT Appointment [facility] [address] [place] [address] Jayy Wallace, PT [facility] Start: 12-03-2024 End: 12-03-[address] [facility] Comment on above: Kidney replaced by t ransplant ([facility]) Start: 12-02-2024 End: 12-02-2024 Telemedicine consultation with patient 12/02/2024 3:[address] [facility] [address] [place] [phone] Monika Nesbitt, PharmD [address] [facility] [address] [place] [id number] [facility] Start: 11-26-2024 End: 11-26-2024 Patient encounter procedure [facility] Comment on above: Kidney replaced by t ransplant ([facility]) Start: 11-25-2024 End: 11-25-2024 Home visit 11/25/2024 8:00 AM EDT Home [facility] [address] [place] [address] Jayy Wallace, PT [facility] Start: 11-24-2024 End: 11-24-2024 Home visit [facility] Comment on above: Kidney replaced by t ransplant ([facility]) Start: 11-23-2024 End: 11-23-[address] [facility] Start: 11-23-2024 End: 11-23-2024 Home visit 11/23/2024 8:00 AM EDT Home [facility] [address] [place] [address] Jayy Wallace, PT [facility] Start: 11-19-2024 End: 11-17-2025 HIV 1 RNA [Presence] in Serum or Plasma from Donor by Probe with amplification Donor HIV/HCV/HBV MEGHAN Lab Routine Kidney replaced by transplant ([facility]) Expected: 11/19/2024 (Approximate), Expires: 11/17/[address] [facility] Work Phone: Comment on above: Expected: 11/19/2024 (Approximate), Expires: 11/17/2025 Start: 11-19-2024 End: 11-17-2025 HLA Transplant Antibody Panel HLA Transplant Antibody Panel Lab STAT Kidney replaced by transplant ([facility]) Expected: 11/19/2024, Expires: 11/17/[address] [facility] Work Phone: Comment on above: Expected: 11/19/2024 , Expires: 11/17/2025 Start: 11-19-2024 Orders Only [facility] Comment on above: Kidney replaced by t ransplant ([facility]) Kidney replaced by t ransplant ([facility]); Blood tests prior to treatment or procedure; Chronic kidney disease, unspecified CKD stage Start: 11-18-2024 End: 11-18-[address] [facility] Start: 11-18-2024 End: 11-18-2024 Patient encounter procedure 11/18/2024 2:00 PM EDT Office Visit [facility] [address] [facility] [address] [place] [address] Simone Westbrook PA-C [address] Department of Medicine-Endocrinology [place] [phone] [facility] Start: 11-18-2024 End: 11-18-2024 Home visit [facility] Start: 11-17-2024 End: 11-17-2025 HIV 1 RNA [Presence] in Serum or Plasma from Donor by Probe with amplification Donor HIV/HCV/HBV MEGHAN Lab Routine Kidney replaced by transplant ([facility]) Expected: 11/17/2024 (Approximate), Expires: 11/17/[address] [facility] Work Phone: Comment on above: Expected: 11/17/2024 (Approximate), Expires: 11/17/2025 Start: 11-17-2024 End: 11-17-[address] [facility] Comment on above: Kidney replaced by t ransplant ([facility]) Start: 11-17-2024 End: 11-17-2024 ambulatory [facility] Start: 11-17-2024 End: 11-17-2024 Patient encounter procedure 11/17/2024 11:30 AM EDT Office Visit [facility] [address] [facility] [address] [place] [address] [facility] Start: 11-16-2024 End: 11-16-2024 Home visit [facility] Start: 11-15-2024 Orders Only 11/15/2024 Ord ers Only [facility] [address] [facility] [address] [place] [address] Vaibhav Charles Kidney replaced by transplant ([facility]); 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 Comment on above: Kidney replaced by t ransplant ([facility]) Start: 11-11-2024 End: 11-11-2024 Home visit 11/11/2024 8:45 AM EDT Home [facility] Visit [facility] [address] [place] [address] Nathan Denson, DONATION WORKER [facility] Start: 11-11-2024 End: 11-11-2024 Home visit 11/11/2024 7:30 AM EDT Home [facility] [address] [place] [address] Nathan Denson, DONATION WORKER [facility] Start: 11-10-2024 End: 11-10-2024 Home visit 11/10/2024 3:00 PM EDT Home [facility] [address] [place] [address] Nathan Denson, DONATION WORKER [facility] Start: 11-10-2024 End: 11-10-2024 ambulatory [facility] Comment on above: Kidney replaced by t ransplant ([facility]) Start: 11-10-2024 End: 11-10-2024 Patient encounter procedure [facility] Start: 11-09-2024 End: 11-09-[address] [facility] Start: 11-09-2024 End: 11-09-2024 Patient encounter procedure 11/09/2024 2:00 PM EDT Procedure Visit [facility] [address] [place] [address] Tyshawn Butts MD [address] [place] [address] [facility] Start: 11-09-2024 End: 11-09-2024 Home visit 11/09/2024 8:45 AM EDT Home [facility] [address] [place] [address] Nathan Denson, DONATION WORKER [facility] Start: 11-08-2024 End: 11-08-2024 Home visit 11/08/2024 8:45 AM EDT Home Care Visit [facility] [address] [place] [address] Nathan Denson, DONATION WORKER [facility] Start: 11-08-2024 End: 11-08-2024 Patient encounter procedure 11/08/2024 7:[address] [facility] [address] [place] [address] [facility] Start: 11-05-2024 End: 11-05-2024 Home visit 11/05/2024 3:15 PM EDT Home Care Visit [facility] [address] [place] [address] Gentry Gonzalez, OT [facility] Start: 11-05-2024 End: 11-05-[address] [facility] Comment on above: Kidney replaced by t ransplant ([facility]) Start: 11-04-2024 End: 11-04-2024 ambulatory [facility] Start: 11-04-2024 End: 11-04-2024 Nutrition therapy 11/04/2024 9:00 AM EDT Nutrition [facility] [address] [facility] [address] [place] [address] Keri Pavon, DMITRI, LD [facility] Start: 11-04-2024 End: 11-04-2024 Home visit [facility] Start: 11-03-2024 End: 11-03-2024 Home visit [facility] Start: 11-03-2024 End: 11-03-2024 ambulatory [facility] Comment on above: Kidney replaced by t ransplant ([facility]) Start: 11-03-2024 End: 11-03-2024 Patient encounter procedure [facility] Start: 11-02-2024 End: 11-02-2024 Telemedicine consultation with patient 11/02/2024 3:[address] [facility] [address] [place] [address] Monika Nesbitt, PharmD [address] [facility] [address] [place] [address] [facility] Start: 11-02-2024 End: 11-02-2024 Home visit 11/02/2024 3:15 PM EDT Home [facility] Visit [facility] [address] [place] [address] Gentry Gonzalez, OT [facility] Start: 11-02-2024 End: 11-02-2024 Home visit 11/02/2024 12:30 PM EDT Home Care Visit [facility] [address] [place] [address] Nathan Denson, DONATION WORKER [facility] Start: 11-01-2024 End: 11-01-2024 Home visit 11/01/2024 1:30 PM EDT Home Care Visit [facility] [address] [place] [address] Nathan Denson, DONATION WORKER [facility] Start: 11-01-2024 End: 11-01-2024 Patient encounter procedure 11/01/2024 7:[address] [facility] [address] [place] [address] [facility] Start: 10-29-2024 End: 10-29-2024 Patient encounter procedure 10/29/2024 11:30 AM EDT Office Visit [facility] [address] [facility] [address] [place] [address] [facility] Start: 10-29-2024 End: 10-29-[address] [facility] Start: 10-29-2024 End: 10-29-2024 Patient encounter procedure 10/29/2024 7:[address] [facility] [address] [place] [address] [facility] Start: 10-27-2024 End: 10-27-2024 Home visit 10/27/2024 3:15 PM EDT Home Care Visit [facility] [address] [place] [address] Gentry Gonzalez, OT [facility] Start: 10-27-2024 End: 10-27-[address] [facility] Comment on above: Kidney replaced by t ransplant ([facility]) Start: 10-27-2024 End: 10-27-[address] [facility] Comment on above: Hypocalcemia; Kidney replaced by transplant ([facility]); Essential hypertension; Urinary retention Start: 10-26-2024 End: 10-26-2024 Patient encounter procedure 10/26/2024 4:00 PM EDT Appointment [facility] [address] [place] [address] Jayy Wallace, PT [facility] Start: 10-25-2024 End: 10-25-2024 ambulatory [facility] Start: 10-25-2024 End: 10-25-2024 Home visit 10/25/2024 3:15 PM EDT Home Care Visit [facility] [address] [place] [address] Gentry Gonzalez, OT [facility] Start: 10-25-2024 End: 10-25-[address] [facility] Start: 10-25-2024 End: 10-25-2024 Patient encounter procedure 10/25/2024 7:[address] [facility] [address] [place] [address] [facility] Start: 10-23-2024 End: 10-23-2024 ambulatory [facility] Start: 10-23-2024 End: 10-23-[address] [facility] Start: 08-18-2024 Diabetes mellitus screening Diabetes Screening [facility] Start: 08-18-2024 Hemoglobin A1c measurement Diabetes: Hemoglobin A1C [facility] Start: 08-18-2024 Hepatitis B surface antibody level LDL Cholesterol [facility] Start: 08-18-2024 Lipid panel Lipid Panel [facility] Start: 08-12-2024 Medicare Annual Well ness Visit [facility] Start: 08-11-2024 Annual PCP Team Commodity Specialist paulette Disease Visit Annual PCP Team Chronic Disease Visit [facility] Start: 08-11-2024 Complete blood count Hemoglobin/Presley tocrit [facility] Start: 08-11-2024 Creatinine measurement Serum Creatin ine [facility] Start: 08-11-2024 Hepatitis B surface antibody level LDL Cholesterol [facility] Start: 06-22-2024 End: 09-21-2024 CBC W Auto Differential panel - Blood COMPLETE BLOOD COUNT AND DIFFERENTIAL Lab Routine Anemia, unspecified type Expected: 06/22/2024 (Approximate), Expires: 09/21/2024 [facility] Comment on above: Expected: 06/22/2024 (Approximate), Expires: 09/21/2024 Start: 06-22-2024 End: 09-21-2024 Comprehensive metabolic 2000 panel - Serum or Plasma COMPREHENSIVE METABOLIC PANEL Lab Routine 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) Expected: 06/22/2024 (Approximate), Expires: 09/21/2024 [facility] Comment on above: Expected: 06/22/2024 (Approximate), Expires: 09/21/2024 Start: 06-22-2024 End: 09-21-2024 Hemoglobin A1c in Blood HEMOGLOBIN A1C Lab Routine 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 Work Phone: Comment on above: Expected: 06/22/2024 (Approximate), Expires: 09/21/2024 Start: 06-10-2024 Glaucoma screening [facility] Start: 06-09-2024 Medicare Advantage Annual Wellness Visit Medicare Advantage Annual Wellness Visit [facility] Start: 04-15-2024 Glaucoma screening Dilated Retinal E xam [facility] Start: 04-15-2024 Hepatitis C antibody , confirmatory test Dilated Retinal Exam [facility] Start: 02-19-2024 Hemoglobin A1c measurement HbA1C [facility] Start: 02-12-2024 Hemoglobin A1c measurement HbA1C [facility] Start: 02-12-2024 End: 02-12-2024 Patient encounter procedure 02/12/2024 9:20 AM EDT Office Visit [facility] [address] [place] [phone] Ron Coronado MD [address] [place] [id number] 6 month follow up [facility] Comment on above: 6 month follow up Start: 02-08-2024 Covid-19 Vaccine ( season) Covid-19 Vaccine ( season) [facility] Start: 02-08-2024 Influenza vaccination Influenza Vacc ine (#1) [facility] Start: 02-08-[address] [facility] Start: 12-25-2023 ANNUAL PCP TEAM VISUAL SPECIALIST PAULETTE DISEASE VISIT ANNUAL PCP TEAM CHRONIC DISEASE VISIT [facility] Start: 11-19-2023 Hemoglobin A1c measurement Diabetes: Hemoglobin A1C [facility] Start: 11-18-2023 End: 11-18-2023 Patient encounter procedure 11/18/2023 10:[address] [facility] [address] [place] [address] [place] [address] [place] [address] [facility] Start: 10-02-2023 End: 10-02-2023 Patient encounter procedure 10/02/2023 9:[address] [facility] [address] [place] [address] [facility] Start: 09-09-2023 End: 09-09-2023 Patient encounter procedure 09/09/2023 3:[address] [facility] [address] [place] [address] [facility] Start: 06-25-2023 ANNUAL PCP TEAM VISUAL SPECIALIST PAULETTE DISEASE VISIT ANNUAL PCP TEAM CHRONIC DISEASE VISIT [facility] Start: 03-14-2023 Hepatitis C antibody , confirmatory test DILATED RETINAL EXAM [facility] Start: 02-07-2023 Covid-19 Vaccine () Covid-19 Vaccine () [facility] Start: 02-07-2023 Influenza vaccination [facility] Start: 01-02-2023 3 comp foot exam completed DIABETIC FOOT EXAM [facility] Comment on above: Postponed from 07/30 (Currently Scheduled) Start: 12-31-2022 BP CONTROLLED (<130/80) BP CONTROLLE D (<130/80) [facility] Start: 12-24-2022 End: 02-23-2023 Comprehensive metabolic 2000 panel - Serum or Plasma COMP METABOLIC PANEL Lab Routine Type 1 DM with end-stage renal disease (HCC) Essential hypertension Hyperlipidemia, unspecified hyperlipidemia type Expected: 12/24/2022, Expires: 02/23/2023 [facility] Work Phone: Comment on above: Expected: 12/24/2022 , Expires: 02/23/2023 Start: 12-24-2022 End: 02-23-2023 Hemoglobin A1c in Blood HGB A1C Lab Routine Type 1 DM with end-stage renal disease (HCC) Expected: 12/24/2022, Expires: 02/23/2023 [facility] Work Phone: Comment on above: Expected: 12/24/2022 , Expires: 02/23/2023 Start: 12-24-2022 End: 02-23-2023 Lipid 1996 panel - Serum or Plasma LIPID PANEL BASIC Lab Routine Type 1 DM with end-stage renal disease (HCC) Essential hypertension Hyperlipidemia, unspecified hyperlipidemia type Expected: 12/24/2022, Expires: 02/23/2023 [facility] Work Phone: Comment on above: Expected: 12/24/2022 , Expires: 02/23/2023 Start: 12-23-2022 End: 02-22-2023 Hemoglobin A1c in Blood HGB A1C Lab Routine Type 1 DM with end-stage renal disease (HCC) Expected: 12/23/2022 (Approximate), Expires: 02/22/2023 [facility] Work Phone: Comment on above: Expected: 12/23/2022 (Approximate), Expires: 02/22/2023 Start: 12-23-2022 End: 02-22-2023 Lipid 1996 panel - Serum or Plasma LIPID PANEL BASIC Lab Routine Hyperlipidemia, unspecified hyperlipidemia type NSTEMI (non-ST elevated myocardial infarction) (HCC) Expected: 12/23/2022 (Approximate), Expires: 02/22/2023 [facility] Work Phone: Comment on above: Expected: 12/23/2022 (Approximate), Expires: 02/22/2023 Start: 12-20-2022 ANNUAL PCP TEAM VISUAL SPECIALIST PAULETTE DISEASE VISIT ANNUAL PCP TEAM CHRONIC DISEASE VISIT [facility] Start: 09-25-2022 Hemoglobin A1c measurement HbA1C [facility] Start: 09-25-2022 Hemoglobin A1c/Hemoglobin.total in Blood HBA1C [facility] Start: 09-02-2022 End: 08-27-2023 Echocardiography ECHO Cardiology Routine NSTEMI (non-ST elevated myocardial infarction) (HCC) Precordial pain Expected: 09/02/2022, Expires: 08/27/2023 [facility] Work Phone: Comment on above: Expected: 09/02/2022 , Expires: 08/27/2023 Start: 09-02-2022 End: 09-25-2023 NM CARDIAC PERF STRESS/EXERCISE NM CARDIAC PERF STRESS/EXERCISE Radiology Routine NSTEMI (non-ST elevated myocardial infarction) (HCC) Precordial pain Expected: 09/02/2022, Expires: 09/25/2023 [facility] Work Phone: Comment on above: Expected: 09/02/2022 , Expires: 09/25/2023 Start: 06-22-2022 End: 08-22-2022 Comprehensive metabolic 2000 panel - Serum or Plasma COMP METABOLIC PANEL Lab Routine 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) Hyperlipidemia, unspecified hyperlipidemia type Expected: 06/22/2022 (Approximate), Expires: 08/22/2022 [facility] Work Phone: Comment on above: Expected: 06/22/2022 (Approximate), Expires: 08/22/2022 Start: 06-22-2022 End: 08-22-2022 Hemoglobin A1c in Blood HGB A1C Lab Routine 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) Expected: 06/22/2022 (Approximate), Expires: 08/22/2022 [facility] Work Phone: Comment on above: Expected: 06/22/2022 (Approximate), Expires: 08/22/2022 Start: 06-22-2022 Hemoglobin A1c/Hemoglobin.total in Blood HBA1C [facility] Start: 06-22-2022 End: 08-22-2022 Lipid 1996 panel - Serum or Plasma LIPID PANEL BASIC Lab Routine 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) Hyperlipidemia, unspecified hyperlipidemia type Expected: 06/22/2022 (Approximate), Expires: 08/22/2022 [facility] Work Phone: Comment on above: Expected: 06/22/2022 (Approximate), Expires: 08/22/2022 Start: 06-14-2022 Complete blood count Hemoglobin/Presley tocrit [facility] Start: 06-14-2022 Creatinine measurement Serum Creatin ine [facility] Start: 06-14-2022 HEMOGLOBIN/HEMATOCRIT HEMOGLOBIN/HEM ATOCRIT [facility] Start: 06-14-2022 Hepatitis B surface antibody level LDL CHOLESTEROL [facility] Start: 06-14-2022 SERUM CREATININE SERUM CREATININE Cl [facility] Start: 05-31-2022 ANNUAL PCP TEAM VISUAL SPECIALIST PAULETTE DISEASE VISIT ANNUAL PCP TEAM CHRONIC DISEASE VISIT [facility] Start: 05-10-2022 Hepatitis C antibody , confirmatory test DILATED RETINAL EXAM [facility] Start: 03-11-2022 Colsc flx w/rmvl of tumor polyp lesion snare tq COLONOSCOPY W/LESION REMOVAL [facility] Work Phone: Start: 03-11-2022 Patient discharge [facility] Work Phone: Start: 02-07-2022 Influenza vaccination INFLUENZA (#1) [facility] Start: 12-20-2021 End: 02-19-2022 [address] A[address]c in Blood [facility] Work Phone: Comment on above: Expected: 12/20/2021 , Expires: 02/19/2022 Start: 12-12-2021 Hemoglobin A1c/Hemoglobin.total in Blood HBA1C [facility] Start: 10-12-2021 PNEUMOCOCCAL (3 - PCV) PNEUMOCOCCAL (3 - PCV) [facility] Start: 09-17-2021 Plain chest X-ray Chest 1 View (Port able) [facility] Work Phone: Start: 08-11-2021 COVID-19 VACCINE (4 - Booster for Moderna series) COVID-19 VACCINE (4 - Booster for Moderna series) [facility] Start: 06-08-2021 COVID-19 VACCINE (4 - Booster for Moderna series) COVID-19 VACCINE (4 - Booster for Moderna series) [facility] Start: 06-07-[address] Cardiac Scorin g [facility] Work Phone: Start: 05-30-2020 Ct abdomen & pelvis w/o contrast material CT Abdomen [facility] Pel[facility] Work Phone: Start: 05-23-2020 Echocardiography Echocardiogram [facility] Work Phone: Start: 05-16-2020 ABO and Rh group turner el - Blood Blood Typing (ABO + Rho D) [id number]-[id number] l 2099 Work Phone: Start: 05-16-2020 Amylase [Catalytic activity/Vol] Amylase, Serum VM-Edtiuhv-[id number] l 2099 Work Phone: Start: 05-16-2020 Antibody cytomegalov irus cmv CMV IgG DM-Fvnrxor-Avxgwe l 2099 Work Phone: Start: 05-16-2020 Antibody hiv-1 HIV 1/2 ANTIGE N/ANTIBODY SCREEN WITH REFLEX TO CONFIRMATION XR-Ioywtnc-Wmxhjw l 2099 Work Phone: Start: 05-16-2020 Antibody varicella-zoster Varicella Zoster IgG Antibody QX-Zfqefun-Wbomzk l 2099 Work Phone: Start: 05-16-2020 Assay of c-peptide C Peptide, Serum KZ-Essuapv-Dswyud l 2099 Work Phone: Start: 05-16-2020 Assay of nicotine Nicotine+Met abolites, Serum PD-Qbcbolz-Iumbzj l 2099 Work Phone: Start: 05-16-2020 Assay of phosphorus inorganic Phosphorus, Serum EP-Hunektn-Tauurs l 2099 Work Phone: Start: 05-16-2020 Assay of prostate specific antigen total Prostate Specific Antigen MH-Fayvphe-Qshegp l 2099 Work Phone: Start: 05-16-2020 CBC W Auto Different ial panel - Blood CM-Dzvgvtj-Vrtsnd l 2099 Work Phone: Start: 05-16-2020 Creatinine measureme nt, serum Creatinine, Serum QX-Jmkmsht-Mhrjyn l 2099 Work Phone: Start: 05-16-2020 HbA1c (Bld) [Mass fraction] Hemoglobin A1C DK-Spscinr-Cqopvy l 2099 Work Phone: Start: 05-16-2020 Hep C screen high risk/other Hepatitis C Antibody Test UU-Tvfozfr-Tysdgg l 2099 Work Phone: Start: 05-16-2020 Hepatic function panel Hepatic Funct ion Panel ZI-Gctzwoj-Mfvlop l 2099 Work Phone: Start: 05-16-2020 Hepatitis b core antibody hbcab total Hepatitis B Core Antibody, Total LY-Drwrkcf-Tctqra l 2099 Work Phone: Start: 05-16-2020 Hepatitis b surf antibody hbsab Hepatitis B Surface Antibody GZ-Rufrygp-Xpmuyz l 2099 Work Phone: Start: 05-16-2020 Iaad ia hepatitis b surface antigen Hepatitis B Surface Antigen FD-Fqaumbh-Kbllns l 2099 Work Phone: Start: 05-16-2020 M. tuberculosis stim IFN-g Ql (Bld) [Interp] T-SPOT. TB NZ-Rcrshkh-Encico l 2099 Work Phone: Start: 05-16-2020 SYPHILIS SCREENING W ITH REFLEX SYPHILIS SCREENING WITH REFLEX WK-Qgznyjm-Hnfnkx l 2099 Work Phone: Start: 05-16-2020 Urea nitrogen [Mass/Vol] Blood Urea Nitrogen, Serum RK-Oretoah-Tckodo l 2099 Work Phone: Start: 05-16-2020 Urnls dip stick/tabl et rgnt auto w/o microscopy Urinalysis WY-Wejbdsq-Wosnpx l 2099 Work Phone: Start: 05-12-2020 EKG study Electrocardiogram EKG M Q-Jigefin-Bcxhnl l 2099 Work Phone: Start: 05-12-2020 Xray Chest 2 V iew PA + Lateral ZG-Ubvkora-Sxytml l 2099 Work Phone: Start: 07-30-2019 3 comp foot exam completed DIABETIC FOOT EXAM [facility] Start: 07-30-2019 Diabetic foot examination Diabetic Foot Exam [facility] Start: 2018 SHINGRIX VACCINE (1 of 2) SHINGRIX VACCINE (1 of 2) [facility] Start: 2018 Zoster Vaccines (1 of 2) Zoster Vacc meghana (1 of 2) [facility] Start: 08-14-2017 Hepatitis B Vaccine (5 of 5 - Risk Dialysis Recombivax 3-dose series) Hepatitis B Vaccine (5 of 5 - Risk Dialysis Recombivax 3-dose series) [facility] Start: 01-24-2016 End: 01-24-2016 *CBC with Differential *CBC with Differential [employer] Work Phone: Start: 01-24-2016 End: 01-24-2016 C reactive protein (hsCRP) *CRP - C-Reative Protein [employer] Work Phone: Start: 01-24-2016 End: 01-24-2016 Erythrocyte sedimentation rate *Sedimentation Rate (ESR) [employer] Phone: Start: 10-30-2015 End: 10-30-2015 X-ray exam of foot X-Ray, Foot [employer] Phone: Start: 09-06-2015 End: 09-06-2015 *CBC with Differential *CBC with Differential [employer] Phone: Start: 09-06-2015 End: 09-06-2015 *CMP Complete Metabolic Panel *CMP Complete Metabolic Panel [employer] Phone: Start: 09-06-2015 End: 09-06-2015 HbA1c *HgA1C [employer] Phone: Start: 09-06-2015 End: 09-06-2015 Lipase *Lipase [employer] Phone: Start: 04-28-2015 End: 04-28-2015 *PSAT&F PSA Total+%Free [id number] *PSAT&F PSA Total+%Free [id number] [employer] Phone: Start: 04-28-2015 End: 05-08-2015 Other Referral [employer] Phone: Start: 06-27-2014 End: 10-03-2014 Nephrology Referral Nephrology Referral [employer] Phone: Start: 06-27-2014 End: 10-03-2014 Ophthalmology Referral Ophthalmology Referral [employer] Phone: Start: 05-19-2014 End: 05-19-2014 X-ray exam of foot X-Ray, Foot [employer] Phone: Start: 03-28-2014 End: 03-28-2014 HbA1c *HgA1C [employer] Phone: Start: 03-16-2014 End: 03-16-2014 *BMP *BMP [employer] Phone: Start: 03-16-2014 End: 03-16-2014 *CBC with Differential *CBC with Differential [employer] Phone: Start: 03-16-2014 End: 03-16-2014 Erythrocyte sedimentation rate *Sedimentation Rate (ESR) [employer] Phone: Start: 02-25-2014 End: 02-25-2014 *CBC with Differential *CBC with Differential [employer] Phone: Start: 02-25-2014 End: 02-25-2014 *Creatinine, Serum *Creatinine, Serum [employer] Phone: Start: 02-25-2014 End: 02-25-2014 Erythrocyte sedimentation rate *Sedimentation Rate (ESR) [employer] Phone: Start: 02-14-2014 End: 02-27-2014 *CBC with Differential *CBC with Differential [employer] Phone: Start: 02-14-2014 End: 02-27-2014 *Renal Panel *Renal Panel [employer] Phone: Start: 02-14-2014 End: 02-27-2014 Erythrocyte sedimentation rate *Sedimentation Rate (ESR) [employer] Phone: Start: 02-10-2014 Urine microalbumin profile [facility] Start: 2013 COLOGUARD (FIT-DNA) COLOGUARD (FIT-D NA) [facility] Start: 2013 Colonoscopy COLONOSCOPY [facility] Start: 2013 COLORECTAL CANCER SCREENING COLORECTAL CANCER SCREENING [facility] Start: [address] COLONOGRAPHY [facility] Start: 2013 FECAL OCCULT BLOOD FECAL OCCULT BLOO D [facility] Start: 2013 Screening for malign ant neoplasm of colon [facility] Start: 2013 SIGMOIDOSCOPY SIGMOIDOSCOPY [facility] Start: 06-19-2009 MMR Vaccines (1 of 1 - Standard series) MMR Vaccines (1 of 1 - Standard series) [facility] Start: 06-19-[address] [facility] Start: 08-11-2008 Urine microalbumin profile DTAP,TDAP,TD (1 - Tdap) [facility] Start: 08-31-1987 ADULT PREVNAR-13 ADULT PREVNAR-13 Cl [facility] Start: 08-31-1987 HEPATITIS B (1 of 3 - Risk 3-dose series) HEPATITIS B (1 of 3 - Risk 3-dose series) [facility] Start: 08-31-1987 SHINGRIX VACCINE (1 of 2) SHINGRIX VACCINE (1 of 2) [facility] Start: 08-31-1987 Zoster Vaccines (1 of 2) Zoster Vacc meghana (1 of 2) [facility] Start: 08-31-[address] [facility] Start: 1986 Anxiety Screening Anxiety Screening [facility] Start: 1986 BP CONTROLLED (<130/80) BP CONTROLLE D (<130/80) [facility] Start: 1978 Diabetic foot examination Diabetes: Foot Exam [facility] Start: 1978 Glaucoma screening [facility] Start: 1978 Meningococcal B Vacc ine (1 of 5 - Increased Risk) Meningococcal B Vaccine (1 of 5 - Increased Risk) [facility] Start: 1970 Meningococcal Conjug ate Vaccine (1 - Risk 2-dose series) Meningococcal Conjugate Vaccine (1 - Risk 2-dose series) [facility] Start: 11-30-1969 Hib Vaccine (1 of 1 - Risk 1-dose series) Hib Vaccine (1 of 1 - Risk 1-dose series) [facility] Start: 1968 Cyanocobalamin vitam in b-12 Vitamin B-[address] [facility] Start: 1968 Diabetes: Celiac Dis ease Screening Diabetes: Celiac Disease Screening [facility] Start: 1968 HEPATITIS B (1 of 3 - 3-dose series) HEPATITIS B (1 of 3 - 3-dose series) [facility] Start: 1968 Medicare Annual Well ness Visit [facility] Start: 1968 Screening for malign ant neoplasm of colon [facility] Start: 1968 Skin Cancer Screening Skin Cancer Sc reening [facility] Start: 1968 Thyroid stimulating hormone measurement [facility] Start: 1968 Yearly Adult Physical Yearly Adult P hysical [facility] Start: [address] [facility] Bilirubin measuremen t, urine [facility] End: 11-17-2025 BK virus DNA [Units/volume] (viral load) in Serum or Plasma by SAQIB with probe detection BK Virus, PCR, Quantitative, Plasma Lab Routine Kidney replaced by transplant ([facility]) Monthly for 12 Occurrences starting 11/17/2024 until 11/17/2025, [address] [facility] Work Phone: Comment on above: Monthly for 12 Occur rences starting 11/17/2024 until 11/17/2025, 1 completed BK virus DNA [Units/volume] (viral load) in Serum or Plasma by SAQIB with probe detection BK Virus, PCR, Quantitative, Plasma Lab Routine Kidney replaced by transplant ([facility]) 11/19/2024 8:53 AM EDT [facility] Work Phone: End: 12-07-2024 Blood type and Indirect antibody screen panel - Blood Type And Screen Lab Timed As needed (Lab) until discontinued starting 12/06/2024 [facility] Work Phone: Comment on above: As needed (Lab) unti l discontinued starting 12/06/2024 Calcium.ionized [Moles/volume] in Blood [facility] Work Phone: Calcium.ionized [Moles/volume] in Blood Calcium, Ionized Lab Routine Morning draw (Lab) until discontinued starting 12/09/2024, [address] 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 Work Phone: End: 10-27-2024 CBC panel - Blood by Automated count CBC Lab Routine Delayed graft function of kidney ([facility]) Once (Lab) for 1 Occurrences starting 10/27/2024 until 10/27/[address] [facility] Work Phone: Comment on above: Once (Lab) for 1 Occ urrences starting 10/27/2024 until 10/27/2024 End: 11-22-2024 CBC panel - Blood by Automated count CBC Lab Routine Delayed graft function of kidney ([facility]) Once (Lab) for 1 Occurrences starting 11/22/2024 until 11/22/[address] [facility] Work Phone: Comment on above: Once (Lab) for 1 Occ urrences starting 11/22/2024 until 11/22/2024 CBC panel - Blood by Automated count CBC Lab Routine Morning draw (Lab) until discontinued starting 11/26/2024, [address] [facility] Work Phone: Comment on above: Morning draw (Lab) u ntil discontinued starting 11/26/2024, 2 completed CBC panel - Blood by Automated count CBC Lab Routine Daily (Lab) until discontinued starting 12/10/[address] [facility] Work Phone: Comment on above: Daily (Lab) until di scontinued starting 12/10/2024 CBC W Auto Different ial panel - Blood [facility] Work Phone: End: 11-15-2025 Creatinine [Mass/volume] in Urine Creatinine, Urine Random Lab Routine Kidney replaced by transplant ([facility]) Monthly for 12 Occurrences starting 11/17/2024 until 11/15/[address] [facility] Work Phone: Comment on above: Monthly for 12 Occur rences starting 11/17/2024 until 11/15/2025 End: 11-17-2025 Cytomegalovirus DNA [Units/volume] (viral load) in Plasma by SAQIB with probe detection CMV DNA, Quantitative, PCR Lab Routine Kidney replaced by transplant ([facility]) Monthly for 12 Occurrences starting 11/17/2024 until 11/17/2025, [address] [facility] Work Phone: Comment on above: Monthly for 12 Occur rences starting 11/17/2024 until 11/17/2025, 1 completed ECG 12 Lead ECG 12 Lead ECG Routine Preop examination 11/18/2023 10:05 AM EDT [facility] Work Phone: End: 12-06-2024 ECG 12 lead [facility] Work Phone: Comment on above: Once for 1 Occurrenc es starting 12/06/2024 until 12/06/2024 End: 09-18-2022 ECG COMPLETE ECG COMPLETE ECG Routine Essential hypertension Screening for ischemic heart disease 1 Occurrences starting 09/18/2021 until 09/18/2022 [facility] Work Phone: Comment on above: 1 Occurrences starti ng 09/18/2021 until 09/18/2022 End: 10-15-2024 Electrocardiogram, 12-lead PRN ACS symptoms [facility] Work Phone: Electrocardiogram, 12-lead PRN ACS symptoms [facility] Work Phone: Electrocardiogram, 12-lead PRN ACS symptoms Electrocardiogram, 12-lead PRN ACS symptoms ECG Routine As needed until discontinued starting 11/24/[address] [facility] Work Phone: Comment on above: As needed until disc ontinued starting 11/24/2024 Electrocardiogram, 12-lead PRN ACS symptoms [facility] Work Phone: End: 11-17-2025 Joseluis Argueta virus DNA [Units/volume] (viral load) in Serum or Plasma by SAQIB with probe detection Joseluis-Argueta PCR, Quant,Plasma Lab Routine Kidney replaced by transplant ([facility]) Monthly for 12 Occurrences starting 11/17/2024 until 11/17/2025, [address] [facility] Work Phone: Comment on above: Monthly for 12 Occur rences starting 11/17/2024 until 11/17/2025, 1 completed End: 12-08-2023 Glucose [Mass/volume] in Serum or Plasma POCT Glucose Point of Care Testing - Docked Device Routine Once (Lab) for 1 Occurrences starting 12/08/2023 until 12/08/2023 [facility] Work Phone: Comment on above: Once (Lab) for 1 Occ urrences starting 12/08/2023 until 12/08/2023 End: 10-16-2024 Glucose [Mass/volume] in Serum or Plasma [facility] Work Phone: Glucose [Mass/volume ] in Serum or Plasma [facility] Work Phone: Glucose [Mass/volume ] in Serum or Plasma [facility] Work Phone: Glucose [Mass/volume ] in Serum or Plasma POCT Glucose Point of Care Testing - Docked Device Routine As needed (Lab) until discontinued starting 11/25/2024 [facility] Work Phone: Comment on above: As needed (Lab) unti l discontinued starting 11/25/2024 End: 11-29-2024 Glucose [Mass/volume] in Serum or Plasma POCT Glucose Point of Care Testing - Docked Device Routine 4 times daily before meals and at bedtime for 3 Days starting 11/26/2024 until 11/29/2024, [address] [facility] Work Phone: Comment on above: 4 times daily before meals and at bedtime for 3 Days starting 11/26/2024 until 11/29/2024, 3 completed Glucose [Mass/volume ] in Serum or Plasma POCT Glucose Point of Care Testing - Docked Device Routine As needed (Lab) until discontinued starting 12/06/2024 [facility] Work Phone: Comment on above: As needed (Lab) unti l discontinued starting 12/06/2024 End: 10-18-2024 Hemodialysis [facility] Work Phone: End: 10-21-[address] [facility] Work Phone: End: 11-03-2024 Hemodialysis Hemodialysis outpatient Dialysis Routine Delayed graft function of kidney ([facility]) Once for 1 Occurrences starting 11/03/2024 until 11/03/2024 [facility] Work Phone: Comment on above: Once for 1 Occurrenc es starting 11/03/2024 until 11/03/2024 End: 11-10-2024 Hemodialysis Hemodialysis outpatient Dialysis Routine Delayed graft function of kidney ([facility]) Once for 1 Occurrences starting 11/10/2024 until 11/10/2024 [facility] Work Phone: Comment on above: Once for 1 Occurrenc es starting 11/10/2024 until 11/10/2024 End: 11-12-2024 Hemodialysis Hemodialysis outpatient Dialysis Routine Delayed graft function of kidney ([facility]) Once for 1 Occurrences starting 11/12/2024 until 11/12/2024 [facility] Work Phone: Comment on above: Once for 1 Occurrenc es starting 11/12/2024 until 11/12/2024 End: 11-15-2024 Hemodialysis Hemodialysis outpatient Dialysis Routine Delayed graft function of kidney ([facility]) Once for 1 Occurrences starting 11/15/2024 until 11/15/2024 [facility] Work Phone: Comment on above: Once for 1 Occurrenc es starting 11/15/2024 until 11/15/2024 End: 11-17-2024 Hemodialysis Hemodialysis outpatient Dialysis Routine Delayed graft function of kidney ([facility]) Once for 1 Occurrences starting 11/17/2024 until 11/17/2024 [facility] Work Phone: Comment on above: Once for 1 Occurrenc es starting 11/17/2024 until 11/17/2024 End: 11-26-2024 Hemodialysis Hemodialysis inpatient 3 Hours Dialysis Routine Once for 1 Occurrences starting 11/26/2024 until 11/26/2024 [facility] Work Phone: Comment on above: Once for 1 Occurrenc es starting 11/26/2024 until 11/26/2024 End: 11-30-2024 Hemodialysis Hemodialysis outpatient Dialysis Routine Delayed graft function of kidney ([facility]) Once for 1 Occurrences starting 11/30/2024 until 11/30/2024 [facility] Work Phone: Comment on above: Once for 1 Occurrenc es starting 11/30/2024 until 11/30/2024 End: 12-14-2024 Hemodialysis Hemodialysis outpatient Dialysis Routine Delayed graft function of kidney ([facility]) Once for 1 Occurrences starting 12/14/2024 until 12/14/2024 [facility] Work Phone: Comment on above: Once for 1 Occurrenc es starting 12/14/2024 until 12/14/2024 Hemoglobin [Presence ] in Urine [facility] HIV 1 RNA [Presence] in Serum or Plasma from Donor by Probe with amplification Donor HIV/HCV/HBV MEGHAN Lab Routine Kidney replaced by transplant ([facility]) 11/19/2024 8:47 AM T [facility] Work Phone: HLA Transplant Antib vicky Panel HLA Transplant Antibody Panel Lab STAT Kidney replaced by transplant ([facility]) 11/19/2024 8:44 AM [facility] Work Phone: End: 10-15-2024 Incentive spirometry Instruct [facility] Work Phone: End: 11-24-2024 Incentive spirometry Instruct Incentive spirometry Instruct Respiratory Care Routine Once for 1 Occurrences starting 11/24/2024 until 11/24/2024 [facility] Work Phone: Comment on above: Once for 1 Occurrenc es starting 11/24/2024 until 11/24/2024 Magnesium [Mass/volu me] in Serum or Plasma [facility] Work Phone: End: 10-27-2024 Magnesium [Mass/volume] in Serum or Plasma Magnesium Lab Routine Delayed graft function of kidney ([facility]) Once (Lab) for 1 Occurrences starting 10/27/2024 until 10/27/[address] [facility] Work Phone: Comment on above: Once (Lab) for 1 Occ urrences starting 10/27/2024 until 10/27/2024 End: 11-22-2024 Magnesium [Mass/volume] in Serum or Plasma Magnesium Lab Routine Delayed graft function of kidney ([facility]) Once (Lab) for 1 Occurrences starting 11/22/2024 until 11/22/[address] [facility] Work Phone: Comment on above: Once (Lab) for 1 Occ urrences starting 11/22/2024 until 11/22/2024 Magnesium [Mass/volu me] in Serum or Plasma Magnesium Lab Routine Morning draw (Lab) until discontinued starting 11/26/2024, [address] [facility] Work Phone: Comment on above: Morning draw (Lab) u ntil discontinued starting 11/26/2024, 2 completed Magnesium [Mass/volu me] in Serum or Plasma Magnesium Lab Routine Daily (Lab) until discontinued starting 12/10/[address] [facility] Work Phone: Comment on above: Daily (Lab) until di scontinued starting 12/10/2024 Magnesium [Mass/volu me] in Serum or Plasma [facility] Work Phone: Measurement of keton es in urine using dipstick [facility] Microscopic urinalysis [facility] Patient Education [facility] Work Phone: Patient referral [facility] Work Phone: pH of Urine [facility] End: 10-15-2024 Prepare RBC: 2 Units [facility] Work Phone: End: 11-15-2025 Protein, Urine Random Protein, Urine Random Lab Routine Kidney replaced by transplant ([facility]) Monthly for 12 Occurrences starting 11/17/2024 until 11/15/2025, 1 completed [facility] Work Phone: Comment on above: Monthly for 12 Occur rences starting 11/17/2024 until 11/15/2025, 1 completed Renal function 2000 panel - Serum or Plasma [facility] Work Phone: End: 10-27-2024 Renal function 1999 panel - Serum or Plasma Renal function panel Lab Routine Delayed graft function of kidney ([facility]) Once (Lab) for 1 Occurrences starting 10/27/2024 until 10/27/[address] [facility] Work Phone: Comment on above: Once (Lab) for 1 Occ urrences starting 10/27/2024 until 10/27/2024 End: 11-22-2024 Renal function 2000 panel - Serum or Plasma Renal function panel Lab Routine Delayed graft function of kidney ([facility]) Once (Lab) for 1 Occurrences starting 11/22/2024 until 11/22/[address] [facility] Work Phone: Comment on above: Once (Lab) for 1 Occ urrences starting 11/22/2024 until 11/22/2024 Renal function 2000 panel - Serum or Plasma Renal Function Panel Lab Routine Morning draw (Lab) until discontinued starting 11/26/2024, [address] [facility] Work Phone: Comment on above: Morning draw (Lab) u ntil discontinued starting 11/26/2024, 2 completed Renal function 2000 panel - Serum or Plasma Renal Function Panel Lab Routine Daily (Lab) until discontinued starting 12/10/[address] [facility] Work Phone: Comment on above: Daily (Lab) until di scontinued starting 12/10/2024 Renal function 2000 panel - Serum or Plasma [facility] Work Phone: Specific gravity of Urine [facility] End: 11-23-2024 Surgical pathology study [facility] Work Phone: Comment on above: Once (Lab) for 1 Occ urrences starting 11/23/2024 until 11/23/2024, 1 completed End: 12-07-2024 Surgical pathology study [facility] Work Phone: Comment on above: Once (Lab) for 1 Occ urrences starting 12/07/2024 until 12/07/2024, 1 completed Tacrolimus [Mass/vol ume] in Blood [facility] Work Phone: End: 10-27-2024 Tacrolimus [Mass/volume] in Blood Tacrolimus level Lab Routine Delayed graft function of kidney ([facility]) Once (Lab) for 1 Occurrences starting 10/27/2024 until 10/27/2024 [facility] Work Phone: Comment on above: Once (Lab) for 1 Occ urrences starting 10/27/2024 until 10/27/2024 End: 11-22-2024 Tacrolimus [Mass/volume] in Blood Tacrolimus level Lab Routine Delayed graft function of kidney ([facility]) Once (Lab) for 1 Occurrences starting 11/22/2024 until 11/22/2024 [facility] Work Phone: Comment on above: Once (Lab) for 1 Occ urrences starting 11/22/2024 until 11/22/2024 Tacrolimus [Mass/vol ume] in Blood Tacrolimus Lab Routine Daily (Lab) until discontinued starting 11/25/2024, [address] [facility] Work Phone: Comment on above: Daily (Lab) until di scontinued starting 11/25/2024, 3 completed Tacrolimus [Mass/vol ume] in Blood Tacrolimus level Lab Routine Morning draw (Lab) until discontinued starting 12/07/2024, [address] [facility] Work Phone: Comment on above: Morning draw (Lab) u ntil discontinued starting 12/07/2024, 3 completed Tacrolimus [Mass/vol ume] in Blood [facility] Work Phone: Transfuse RBC :1 Hour [facility] [place] [facility] Work Phone: Transfuse RBC: 2 Uni ts :[address] [facility] Work Phone: Urine blood test [facility] Urine dipstick for glucose [facility] Urine dipstick for leukocyte esterase [facility] Urine dipstick for nitrite [facility] Urine dipstick for protein [facility] Urine examination [facility] Urine microscopy: epithelial cells [facility] Urine Microscopy: wh ite cells [facility] Urobilinogen [Presen ce] in Urine [facility] End: 11-23-2024 US Kidney limited [facility] Service Area Work Phone: Comment on above: Once for 1 Occurrenc es starting 11/23/2024 until 11/23/2024 Xtrnl pt activtd ecg dwnld w/r&i 30 days ECG/REVIEW,INTERPRET ONLY Cardiology Routine Essential hypertension Ordered: 09/17/2021 [facility] Work Phone: Comment on above: Ordered: 09/17/2021 [facility] NEGATED: Highlighted row has been ruled out! Planned Goals not documented [facility]-Rixvsdr-Saqpjw l [facility]100 Work Phone: Immunizations Immunization Date Immunization Notes Care Provider [facility] 04-02-2024 influenza virus vaccine, unspecified formulation Mariaa Dwyer MD Work Phone: [facility] Work Phone: 03-21-2023 influenza virus vaccine, unspecified formulation Janet Jiménez MD Work Phone: [facility] Work Phone: 03-09-2023 COVID-19 vaccine, ag e 12+ yr, season (MODERNA) Ron Coronado MD Work Phone: [facility] 03-09-2023 influenza, seasonal, injectable Ron Coronado MD Work Phone: [facility] 03-09-2023 influenza virus vaccine, unspecified formulation Ron Coronado MD Work Phone: [facility] 03-06-2023 tetanus toxoid, reduced diphtheria toxoid, and acellular pertussis vaccine, adsorbed [facility] 04-26-2022 COVID-19 booster vaccine, age 12+ yr, bivalent (PFIZER-BIONTSecret Recipe) Ron Coronado MD Work Phone: [facility] 02-25-2022 influenza virus vaccine, unspecified formulation Montez Toscano APRN.CNP Work Phone: [facility] 06-01-2021 pneumococcal polysaccharide vaccine, 23 valent Ron Coronado MD Work Phone: [facility] 04-09-2021 influenza, injectabl e, quadrivalent, preservative free [facility] 04-09-2021 influenza, seasonal, injectable Dr. Ron Coronado Work Phone: [facility] Work Phone: 10-12-2020 pneumococcal polysaccharide vaccine, 23 valent Ivet Tesfaye MD Work Phone: [facility] 06-18-2019 pneumococcal conjuga te vaccine, 13 valent Ron Coronado MD Work Phone: [facility] 08-14-2016 hepatitis B vaccine, adult dosage Ron Coronado MD Work Phone: [facility] 03-29-2016 hepatitis B vaccine, adult dosage Ron Coronado MD Work Phone: [facility] 03-01-2016 hepatitis B vaccine, adult dosage Ron Coronado MD Work Phone: [facility] 01-31-2016 pneumococcal polysaccharide vaccine, 23 valent Ron Coronado MD Work Phone: [facility] 01-29-2016 hepatitis B vaccine, adult dosage Ron Coronado MD Work Phone: [facility] 02-09-2014 tetanus and diphther ia toxoids, adsorbed, preservative free, for adult use (2 Lf of tetanus toxoid and 2 Lf of diphtheria toxoid) [facility] 02-07-2014 Influenza virus vaccine [facility] 05-10-2013 influenza virus vaccine, unspecified formulation Ivet Tesfaye MD Work Phone: [facility] Work Phone: 04-09-2013 Influenza virus vaccine [facility] 04-23-2012 influenza virus vaccine, unspecified formulation Ivet Tesfaye MD Work Phone: [facility] 05-22-2009 novel [id number], all formulations Ivet Tesfaye MD Work Phone: [facility] Work Phone: 08-10-2008 tetanus and diphther ia toxoids, adsorbed, preservative free, for adult use (2 Lf of tetanus toxoid and 2 Lf of diphtheria toxoid) [facility] 08-10-2008 tetanus and diphther ia toxoids, not adsorbed, for adult use Ivet Tesfaye MD Work Phone: [facility] 07-06-2008 pneumococcal polysaccharide vaccine, 23 valent Ivet Tesfaye MD Work Phone: [facility] 07-06-2008 Pneumococcal Vaccine [facility] Work Phone: 07-06-2008 pneumococcal vaccine , unspecified formulation [facility] NEGATED: Highlighted row has not occurred!02-26-2024 Hepatitis B vaccine (recombinant), CpG adjuvanted [facility] [address] [facility] Comment on above: Deferred: Immunity Deferred: Immunity - Immunity Payers Date Payer Category Payer Self-pay [id number] 2023 Unknown 2023 Unknown [id number] 2020 Medicare [place] [employer] [facility] SNP [id number] 2020-Present [phone] [address] [place] [address] [facility] [id number] 2020 Medicare [id number] 2020 Medicare (Managed Care) 1.2. [id number] 2020 Medicare [id number] 2018 Medicaid MEDICAID [facility] MEDICAID [id number] 2018-Present [phone] [address] [place] [address] Medicaid [id number] 2018 Medicaid [id number] [id number] .[id number] 2016 Unknown [id number] 1970 Unknown [id number] 2.16.840.1.233836.3.579.2.1 [facility] 1970 Unknown [id number] 2.16.840.1.249252.3.579.2.1 [facility] 1968 Unknown [id number] 2.16.840.1.589514.3.579.2.1 [facility] 1968 Unknown [id number] 2.16.840.1.601635.3.579.2.1 [facility] 1968 Unknown [id number] 2.16840.1.410830.3.579.2.1 [facility] 1968 Unknown [id number] 2.16840.1.296980.3.579.2.1 [facility] 1968 Unknown [id number] 2.16840.1.407518.3.579.2.1 [facility] 1968 Unknown [id number] 2.16840.1.262349.3.579.2.1 [facility] 1968 Unknown [id number] 2.16840.1.365066.3.579.2.1 [facility] 1968 Unknown [id number] 2.16840.1.542352.3.579.2.1 [facility] 1968 Unknown [id number] 2.16840.1.601656.3.579.2.1 [facility] 1968 Unknown [id number] 2.16.840.1.587804.3.579.2.1 [facility] 1968 Unknown [id number] 2.16.840.1.869531.3.579.2.1 [facility] 1968 Unknown [id number] 2.16.840.1.605234.3.579.2.1 [facility] 1968 Unknown [id number] 2.16840.1.849702.3.579.2.1 [facility] 1968 Unknown [id number] 2.16.840.1.121584.3.579.2.1 [facility] 1968 Unknown [id number] 2.16.840.1.037332.3.579.2.1 [facility] 1968 Unknown [id number] 2.16.840.1.269412.3.579.2.1 [facility] 1968 Unknown [id number] 2.16.840.1.257101.3.579.2.1 [facility] 1968 Unknown [id number] 2.16.840.1.453271.3.579.2.1 [facility] 1968 Unknown [id number] 2.16.840.1.750728.3.579.2.1 [facility] 1968 Unknown [id number] 2.16840.1.147469.3.579.2.1 [facility] 1968 Unknown [id number] 2.16840.1.310755.3.579.2.1 [facility] 1968 Unknown [id number] 2.16840.1.262570.3.579.2.1 [facility] 1968 Unknown [id number] 2.16.840.1.978192.3.579.2.1 [facility] 1968 Unknown [id number] 2.16840.1.544469.3.579.2.1 [facility] 1968 Unknown [id number] 2.16.840.1.645669.3.579.2.1 [facility] 1968 Unknown [id number] 2.16.840.1.981375.3.579.2.1 1968 Unknown [id number] 2.16.840.1.561744.3.579.2.1 1968 Unknown [id number] 2.16.840.1.166911.3.579.2.1 1968 Unknown [id number] 2.16.840.1.307142.3.579.2.1 [facility] 1968 Unknown [id number] 2.16.840.1.244565.3.579.2.1 1968 Unknown [id number] 2.16.840.1.977036.3.579.2.1 [facility] 1968 Unknown [id number] 2.16.840.1.713428.3.579.2.1 [facility] 1968 Unknown [id number] 2.16.840.1.405171.3.579.2.1 [facility] 1968 Unknown [id number] 2.16840.1.334763.3.579.2.1 [facility] 1968 Unknown [id number] 2.16840.1.739597.3.579.2.1 1968 Unknown [id number] 2.16840.1.548678.3.579.2.1 1968 Unknown [id number] 2.16840.1.440361.3.579.2.1 [facility] 1968 Unknown [id number] 2.16840.1.384792.3.579.2.1 1968 Unknown [id number] 2.16840.1.416468.3.579.2.1 1968 Unknown [id number] 2.16840.1.695184.3.579.2.1 1968 Unknown [id number] 2.16840.1.766664.3.579.2.1 [facility] 1968 Unknown [id number] 2.16840.1.339427.3.579.2.1 1968 Unknown [id number] 2.16.840.1.519373.3.579.2.1 1968 Unknown [id number] 2.16840.1.631284.3.579.2.1 [facility] 1968 Unknown [id number] 2.16.840.1.300335.3.579.2.1 [facility] 1970 Unknown [id number] 2.16.840.1.386545.3.579.2.1 243 1968 Unknown [id number] 2.16.840.1.571709.3.579.2.1 [facility] 1970 Unknown [id number] 2.16.840.1.492389.3.579.2.1 [facility] 1968 Unknown [id number] 2.16.840.1.149950.3.579.2.1 [facility] 1968 Unknown [id number] 2.16.840.1.945984.3.579.2.1 [facility] 1968 Unknown [id number] 2.16.840.1.838733.3.579.2.1 243 Unknown [id number] Unknown [id number] 2.16.840.1.854471.3.579.2.4 62 Unknown [id number] 2.16.840.1.711052.3.579.2.4 62 Unknown [id number] 2.16.840.1.717193.3.579.2.4 62 Unknown [id number] 2.16.840.1.851869.3.579.2.4 62 Unknown [id number] 2.16.840.1.794424.3.579.2.4 62 Social History Date Type Detail Facility Assertion Tobacco smoking consumption unknown (finding) [facility]Yhy[facility]Sy[facility]l [facility] Work Phone: Start: 09-07-2021 End: 03-07-2023 Tobacco smoking status NHIS Unknown if ever smoked [facility] Start: 01-29-2021 Occasional [facility] Start: 01-29-2021 None [facility] Start: 08-21-2016 Alone [facility] Start: 04-07-2019 Non-smoker [facility] Start: 1970 Sex Assigned At Male [facility] Start: 09-30-2017 End: 12-27-2024 Tobacco smoking status NHIS Never smoked tobacco [facility] Start: 05-31-2021 End: 06-22-2024 Alcohol intake Current non-drinker of alcohol (finding) [facility] Start: 1970 Sex Assigned At Not on file [facility] Start: 12-10-2021 End: 11-17-2024 Exposure to SARS-CoV-2 (event) Not sure [facility] Start: 09-30-2017 End: 06-25-2022 Tobacco use and exposure Smokeless tobacco non-user [facility] Start: 06-21-2022 End: 12-24-2022 History of Social function [facility] Start: 06-21-2022 End: 12-24-2022 Tobacco use panel [facility] Adult Depression Screening Assessment 0 [facility] How often to you hav e a drink containing alcohol? Never [facility] Start: 08-19-2023 End: 12-09-2024 Alcohol intake Ex-drinker (finding) [facility] Work Phone: (I/We) worried emilee er (my/our) food would run out before (I/we) got money to buy more. Never true [facility] Work Phone: Start: 09-06-2023 End: 09-16-2023 Exposure to SARS-CoV-2 (event) Unable to assess [facility] Start: 11-18-2023 Tobacco smoking status NHIS Ex-smoker [facility] Work Phone: Start: 06-09-2013 History of tobacco use Current smoker [facility] Work Phone: Start: 06-09-2013 History of tobacco use Cigarette Smoker [facility] Work Phone: How hard is it for y ou to pay for the very basics like food, housing, medical care, and heating Not very hard [facility] In the past 12 month s, was there a time when you were not able to pay the mortgage or rent on time? No [facility] Work Phone: Do you feel stress - tense, restless, nervous, or anxious, or unable to sleep at night because your mind is troubled all the time - these days [OSQ] Not at all [facility] Work Phone: Start: 12-06-2024 Gender identity Identifies as male gender (finding) [facility] Work Phone: Start: 12-06-2024 Sexual orientation Heterosexual (finding) [facility] Work Phone: Medical Equipment Procedure Code Equipment Code Equipment Original Text Equipment Identifier Dates [id number], [id number], [id number], [id number], [id number], [id number], [id number], [id number] Start: 01-04-2016 End: 01-12-2025 Comment on above: test three times glenn ly - dx 250.00 - insulin depentant Use twice daily as d irected for insulin Give with each insul in administration once in the am and once in the pm Inject 1 Each subcut aneously every 24 hours. Give with each insulin administration. 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 Work Phone: 12-14-2024 Total score [AUDIT-C] [facility] Work Phone: 12-14-2024 Patient Health Questionnaire 2 item (PHQ-2) [Reported] [facility] Work Phone: 12-07-2024 Patient Health Questionnaire 2 item (PHQ-2) [Reported] [facility] Work Phone: 12-07-2024 Total score [AUDIT-C] 0 12/08/19 25 12:08 AM Nona Murrieta RN [facility] Work Phone: 12-06-2024 [place] - suicide severity rating scale screener - recent [C-SSRS] [facility] Work Phone: 11-24-2024 Total score [AUDIT-C] 0 11/25/19 25 9:35 PM Darrian Wong RN [facility] Work Phone: 11-24-2024 Patient Health Questionnaire 2 item (PHQ-2) [Reported] [facility] Work Phone: 11-24-2024 [place] - suicide severity rating scale screener - recent [C-SSRS] [facility] Work Phone: 09-17-2021 Functional status Activity Abili ty Independent [facility] Work Phone: [facility] Work Phone: [facility] Work Phone: NEGATED: Highlighted row Functional performance Functional status health issues are not documented Disease [facility]Ibkyntk-Tjcjawo 2100 Work Phone: Mental Status Date Assessment Result Facility 12-27-2024 Cognitive function Level Of Cons ciousness Awake;Alert;Appropriate ;Follows Commands [facility] Work Phone: 03-07-2023 Cognitive function Level Of Cons ciousness Awake;Alert;Appropriate [facility] Work Phone: 05-24-2022 Cognitive function Level Of Cons ciousness Awake;Alert [facility] Work Phone: 03-11-2022 Cognitive function Voice/Name [facility] Work Phone: 09-17-2021 Cognitive function Voice/Name [facility] Work Phone: 09-17-2021 Cognitive function Level Of Cons ciousness Awake;Alert;Appropriate ;Follows Commands [facility] Work Phone: 09-07-2021 Cognitive function Level Of Cons ciousness Awake;Alert;Appropriate ;Follows Commands;Responds to vocal stimuli [facility] Work Phone: NEGATED: Highlighted row Cognitive function [Interpretation] Cognitive status health issues are not documented Disease JW[facility]Lljsmqq-Khygyea [facility] Work Phone: Clinical Notes 04-23-2012 to 12-27-2024 Note Date & Type Note Facility 12-27-2024 Discharge summary [facility] 12-27-2024 Discharge summary Note Date/Time December 27, 2024 7:00pm [facility] Medical Records Department [address] [place] [address] Emergency Department Summary 12/27/24 MR#: [id number] Acct: [id number] Name: THOM CHAPIN Rep #:[id number] : 1970 54 From: [place] DO PCP: Dr. Ron Coronado MD Status:RE G ER Location: ED HPI History of Present Illness Chief Complaint: Abn Labs Narrative Narrative: Chief complaint and HPI: Anemia. 54-year-old male with past medical history of DM1, ESRD status post kidney transplant 2 months ago presents for evaluation of anemia. Patient states that he follows with the kidney transplant team. He does not remember the name of his physician or what immunosuppressants/medications he is currently taking. He states he does believeone is mycophenolate. He states that he has been taking all of his medications. States he had routine blood work performed at [facility] and was called by his transplant team stating that he is anemic and that he needs to go to the emergency department for blood transfusion. He denies any fever, chills, shortness of breath, chest pain abdominal pain, nausea, vomiting, dysuria. States he has been eating and drinking well. Review of systems: See HPI Medications: As listed on the chart Allergies: As listed on the chart PFSH: Per chart Vital signs: As listed on the chart. Reviewed. Physical exam: Gen: A&O x3, NAD Head: Normocephalic, atraumatic Eyes: No sclera icterus, conjunctiva clear ENT: Moist mucous membranes Neck: Trachea midline, No JVD CV: RRR, no murmurs, no peripheral edema Resp: Lungs CTA BL, no w/r/c GI: Abd soft, non-distended, non-tender, no r/r/g Musc: Full ROM, no deformity Skin: Warm, dry Neuro: Alert, oriented, grossly intact, sensation intact Psych: Cooperative, appropriate mood and affect [facility] Medical History (Updated 12/27/24 @ 18:43 by Nishi Roth) Myocardial infarct Wears glasses Wears dentures History of echocardiogram Cardiology follow-up encounter End stage renal disease on dialysis Diabetes Dialysis patient Kidney disease Non-smoker Syncope and collapse Atherosclerotic heart disease of [place] coronary artery without angina pectoris NSTEMI (non-ST elevated myocardial infarction) Malnutrition Delayed wound healing Ulcer of right foot with fat layer exposed History of iron deficiency Anemia due to chronic kidney disease HTN (hypertension) Hypomagnesemia Diabetic foot infection ESRD (end stage renal disease) on dialysis Diabetic neuropathy Hyponatremia DM type 1 causing renal disease Acute on chronic anemia Cellulitis of right foot Peripheral vascular disease Diabetes mellitus with neuropathy Microcytic anemia Depression Hyperlipidemia Diabetes mellitus type 1 Glaucoma Benign essential hypertension Home Medications ?Medication ?Instructions ?Recorded ?Last Taken ?Type hydralazine 100 mg tablet 100 mg PO TID hypertentsion 07/06/17 12/27/24 History latanoprost 0.005 % eye drops 1 drp EACH EYE QHS eye d rops 07/06/17 12/26/24 History aspirin 81 mg tablet,delayed 81 mg PO DAILY@0800 10/2012/27/24 Rx release atorvastatin 40 mg tablet 40 mg PO QHS cholesterol 12/26/24 History amlodipine 5 mg tablet 5 mg PO BID 12/27/24 5 History calcitriol 0.25 mcg capsule 0.25 mcg PO DAILY 12/27/24 12/27/24 History carvedilol 25 mg tablet 25 mg PO BID 12/27/24 History cholecalciferol (vitamin D3) 50 50 mcg PO DAILY 12/27/24 History mcg (2,000 unit) capsule clotrimazole 10 mg amanda 10 mg mucous membrane TID 12/27/24 History dorzolamide 22.3 mg-timolol 6.8 1 drp ophthalmic (eye) BID 12/27/24 12/27/24 History mg/mL eye drops folic acid 0.8 mg-vit B comp with 1 tab PO DAILY 12/2712/27/24 History Q-vmej-rumthha D3 2,000 unit tablet (Dialyvite 800-Ultra D) furosemide 40 mg tablet 40 mg PO BID 12/27/24 History insulin aspart U-100 100 unit/mL 2 unit subcut TID 12/27/24 History (3 mL) subcutaneous pen insulin degludec 100 unit/mL (3 10 unit subcut DAILY 0 12/27/24 12/27/24 History mL) subcutaneous pen mycophenolate mofetil 250 mg 750 mg PO Q12H 12/27/24 0 12/27/24 History capsule pantoprazole 40 mg tablet,delayed 40 mg PO DAILY 12/2712/27/24 History release prednisone 5 mg tablet 5 mg PO Q6H 12/27/24 5 History sulfamethoxazole 400 1 tab PO DAILY 12/27/2412/08 History mg-trimethoprim 80 mg tablet tacrolimus 1 mg capsule, 3 mg PO BID 12/27/24 5 History immediate-release tamsulosin 0.4 mg capsule 0.4 mg PO DAILY 12/27/24 History valganciclovir 450 mg tablet 450 mg PO DAILY 12/27/24 12/27/24 History Allergy/AdvReac Type Severity Reaction Status Date / Time calcium (From PhosLo) Allergy Hives Verified 12/04/23 10:08 Family History Sister Heart disease Uncle Colon cancer Surgical History (Updated 12/27/24 @ 17:34 by Terra Ruiz) Hx of kidney transplant History of parotidectomy Stented coronary artery (10/19/18) Status post peripheral artery angioplasty Presence of surgically created primary arteriovenous shunt for hemodialysis Status post transmetatarsal amputation of right foot Social History household members: family Smoking Status: Never smoker alcohol intake: never substance use type: does not use EXAM Physical Exam Const Vital Signs: 12/27/24 16:53 12/27/24 17:33 12/27/24 18:44 Temperature 96.8 F L Temperature Source Temporal Pulse Rate 73 70 Respiratory Rate 16 18 Respiratory Effort Normal Non-Labored Respiratory Pattern Normal Blood Pressure 110/67 133/71 H Blood Pressure Mean 81 91 Pulse Ox 100 100 Oxygen Delivery Method Room Air Room Air MDM MDM MDM Narrative Medical decision making narrative: 54-year-old male with past medical history of DM1, ESRD status post kidney transplant 2 months ago presents for evaluation of anemia. Patient states that he follows with the kidney transplant team. States he had routine blood performed today at [facility] and was called by his transplant team stating that hewas anemic and needed to go to the nearest emergency department for blood transfusion. He denies any complaints. Patient has a number to his transplant care team at , I was able to personally contact them [facility]. She states that the note states that the patient was anemic andthat he needed to come to the emergency for blood transfusion. No other concerns at this time. Differential diagnosis includes but is not limited to anemia, electrolyte abnormality. Basic labs ordered with UA and type and screen. CBC with leukopenia 3.6. Patient has a history of this in the past. He has anemia with hemoglobin of 6.4. Platelets unremarkable. BMP shows baseline ESRD. Patient is be positive. Patient will warrant 2 units packed RBCs. I spoke with the blood bank, they state it will be approximately 6 hours before they can get the appropriate blood for the patient. Therefore patient will warrant admission. He confirmed understanding the plan. I spoke with the hospitalist service who accepted admission. Impression: 1. Anemia requiring blood transfusion 2. History of ESRD status post kidney transplant 2 months ago Lab Data Labs: Laboratory Results - last 24 hr 12/27/24 12/27/24 17:40 17:50 WBC 3.6 L RBC 2.46 L Hgb 6.4 L Hct 20.8 L MCV 84.6 MCH 26.0 L MCHC 30.8 L RDW Std Deviation 64.3 H RDW Coeff of Edda 20.9 H Plt Count 188 MPV 10.0 Immature Gran % (Auto) 1.700 H Neut % (Auto) 82.0 H Lymph % (Auto) 9.0 L Arthur % (Auto) 6.2 Eos % (Auto) 0.8 Baso % (Auto) 0.3 Absolute Neuts (auto) 2.9 Absolute Lymphs (auto) 0.32 L Nucleated RBC % 0 Sodium 138 Potassium 5.1 Chloride 115 H Carbon Dioxide 13.2 L Anion Gap 9 BUN 85 H Creatinine 3.19 H Estim Creat Clear Calc 24.44 L Est GFR (MDRD) Non-Af 22 L BUN/Creatinine Ratio 26.7 H Glucose 316 H Calcium 8.8 Blood Type B POSITIVE Antibody Screen NEGATIVE Discharge Plan Triage Chief Complaint: Abn Labs ED Provider: Hamlet Bentley Dx/Rx/DC Orders Prescriptions: No Action latanoprost 1 DROP bottle 1 drp EACH EYE QHS hydralazine 100 MG tablet 100 mg PO TID aspirin 81 MG tablet 81 mg PO DAILY@0800 0RF atorvastatin 40 mg tablet 40 mg PO QHS furosemide 40 mg tablet 40 mg PO BID clotrimazole 10 mg amanda 10 mg mucous membrane TID valganciclovir 450 mg tablet 450 mg PO DAILY carvedilol 25 mg tablet 25 mg PO BID sulfamethoxazole-trimethoprim 400-80 mg tablet 1 tab PO DAILY mycophenolate mofetil 250 mg capsule 750 mg PO Q12H prednisone 5 mg tablet 5 mg PO Q6H amlodipine 5 mg tablet 5 mg PO BID tamsulosin 0.4 mg capsule 0.4 mg PO DAILY pantoprazole 40 mg tablet,delayed release (DR/EC) 40 mg PO DAILY dorzolamide-timolol 22.3-6.8 mg/mL drops 1 drp ophthalmic (eye) BID tacrolimus 1 mg capsule 3 mg PO BID calcitriol 0.25 mcg capsule 0.25 mcg PO DAILY insulin aspart U-100 100 unit/mL (3 mL) insulin pen 2 unit SUBCUT TID Patient Comments: Inject 3 Units under the skin 3 times a day before meals. Inject 2 units for breakfast, lunch, and dinner. Check blood sugar & follow sliding scale. 0 unit(s) if Blood glucose is between 71-150; 1 unit(s) for 151-200; 2 unit(s) mlx200-261; 3 unit(s) for 251-300; 4 unit(s) for 301-350; 5 unit(s) for 351-400 (upto 50 units/day) cholecalciferol (vitamin D3) 50 mcg (2,000 unit) capsule 50 mcg PO DAILY Rx Instructions: AM Dialyvite 800-Ultra D 0.8-2,000 mg-unit tablet 1 tab PO DAILY insulin degludec 100 unit/mL (3 mL) insulin pen 10 unit subcut DAILY Rx Instructions: AM Primary Care Provider: Ron Coronado Referrals: Ron Coronado MD [Primary Care Provider] - Print Language: Latvian What to do if you have Problems For any increased pain, shortness of breath, bleeding, nausea or vomiting, chestpain, or any unexpected problems, contact your Primary Care Provider. Call [facility] ([phone]) or report to the closest Emergency Room. Call 911 if necessary. 12/27/24 1900 <Electronically signed by Hamlet Bentley DO> Cosigner Signature (if applicable): CC: Dr. Ron Coronado MD ~ Signed [facility] Work Phone: [phone]) 258-640207-17-2025 Telephone encounter Note* Telephone Encounter - Penny Candelario MA - 12/23/2024 4:58 PM EDT Form completed and faxed back to . Penny Candelario MA [facility]07-17-2025 Miscellaneous Notes* Telephone Encounter - Penny Candelario MA - 12/23/2024 4:58 PM EDT Form completed and faxed back to . Penny Candelario MA * Telephone Encounter - Penny Candelario MA - 12/23/2024 10:06 AM EDT [facility] called office back. Advised ROLA that we need to go to [employer] and log into the provider portal. Im[employer] an account but will not allow me to access authorizations. Spoke with Bianca who stated access to care phone number is [phone] [place] provider services phone number is [phone] option 1 Pt ID# is [id number] Bianca spoke with her pit supervisor Jennifer who has faxed the PA form to our office to complete and fax back to them at . Form on PCPs desk. Penny Candelario MA * Telephone Encounter - Penny Candelario MA - 12/21/2024 2:11 PM EDT Called number provided below, waited and was finally able to get to a live person after dealing with automatic prompts. Was told that that number does not handle transportation claims/PA and was given number for transportation of [phone]. After dealing with prompts was able to speak with a live person. Gave them pt ID number provided below, address, full name, , and phone number and was told that there were no pt with that information. I called pt and notified him of this. Advised him that when I tried to call and handle this for himthe first time 12/06/24 I had the same issues. Advised pt that he could have them call office directly or have them fax something to our office. Fax number to office given to pt. IF THE COMPANY CALLS OFFICE DIRECTLY PLEASE ROUTE THE CALL TO DR. CORONADO'S OFFICE SO WE CAN SPEAK WITH THEM. * Telephone Encounter - Argentina Escobar LPN - 12/21/2024 1:29 PM EDT Pt calls (along with Patria who is with Access to Care) calls to ask if office could try again to get PA for more transportation. Patria is asking for office to call [facility] @ [phone] and stay on the line until you get a live person. Patria requests then let them know pt needs PA for more transportation.Pt's ID: [id number]. Patria reports pt currently will run out of rides by 12/27. Pt has to get labs on M & Th, infusion on Fri. Depending on the lab results he might have to go to the hospital. Dialysis is as needed. Patria also reports that insurance might try to have pt use [employer] but pt has had bad experiences with them and does not want to use them. Call pt with outcome. Argentina Escobar LPN [facility] Telephone encounter Note * Telephone Encounter - Penny Candelario MA - 12/23/2024 10:06 AM EDT [employer] called office back. Advised MA that we need to go to [employer] and log into the provider portal. [employer] an account but will not allow me to access authorizations. Spoke with Bianca who stated access to care phone number is [phone] [place] provider services phone number is [phone] option 1 Pt ID# is [id number] Bianca spoke with her pit supervisor Jennifer who has faxed the PA form to our office to complete and fax back to them at . Form on PCPs desk. Penny Candelario MA [facility]07-15-2025 Telephone encounter Note* Telephone Encounter - Penny Candelario MA - 12/21/2024 2:11 PM EDT Called number provided below, waited and was finally able to get to a live person after dealing with automatic prompts. Was told that that number does not handle transportation claims/PA and was given number for transportation of [phone]. After dealing with prompts was able to speak with a live person. Gave them pt ID number provided below, address, full name, , and phone number and was told that there were no pt with that information. I called pt and notified him of this. Advised him that when I tried to call and handle this for himthe first time 12/06/24 I had the same issues. Advised pt that he could have them call office directly or have them fax something to our office. Fax number to office given to pt. IF THE COMPANY CALLS OFFICE DIRECTLY PLEASE ROUTE THE CALL TO DR. CORONADO'S OFFICE SO WE CAN SPEAK WITH THEM. [facility]07-15-2025 Telephone encounter Note* Telephone Encounter - Argentina Escobar LPN - 12/21/2024 1:29 PM EDT Pt calls (along with Patria who is with Access to Care) calls to ask if office could try again to get PA for more transportation. Patria is asking for office to call [facility] @ [phone] and stay on the line until you get a live person. Patria requests then let them know pt needs PA for more transportation.Pt's ID: [id number]. Patria reports pt currently will run out of rides by 12/27. Pt has to get labs on & , infusion on Fri. Depending on the lab results he might have to go to the hospital. Dialysis is as needed. Patria also reports that insurance might try to have pt use [employer] but pt has had bad experiences with them and does not want to use them. Call pt with outcome. Argentina Escobar LPN [facility]07-15-2025 Nurse Note* Camille Sawyer RN - 12/21/2024 10:59 AM EDT Consulting Group Analyst Note Thom was re-admitted on 12/14 for JOSE R and metabolic acidosis. He was dialyzed on 12/14 for clearance.Allosure drawn inpatient on 12/15 and resulted 0.54%, DSA from 12/15 Outpatient Plan: Continue Envarsus 5 mg daily, goal 4-6 Belatacept next dose due 12/31 Myfortic 360 mg every 12 hours, pred 5 mg daily Valcyte MWF Will plan to transition to Pill Packs outpatient Labs every Friday/ Clinic 12/29 @ 11:30 am Patient did not have medications with him and had no one at home to be able to bring them to hospital. Pt discharging this morning and will return to clinic at 2 pm today with all medications for pill box fill with RN. * Jaquelin Lundberg RN - 12/15/2024 6:44 AM EDT Patient BP 188/105 spoke with transplant team and made them aware that he his PRN for HTN but when going to pull out of cell it states no active order. documented in this [facility] Work Phone: 1(732) 902-940507-15-2025 History of Present illness Narrative* Patience Roach - 12/21/2024 10:00 AM EDT 12/21/24 1000 Rapid Rounds Attendance Provider;Care Transitions;Nurse Expected Discharge Disposition Home Today we still await: (Pt is dc'ing today.) Review at Escalation Rounds No escalation needed Thom Chapin is a 54 y.o. male on day 1 of admission presenting with JOSE R (acute kidney injury). Plan per Medical/Surgical team: Pt enrolled in H@H. Waiting for PT/OT recs. Pt needs: TBD. 12/16: Home. No home going needs anticipated for this pt at this time. 12/21: Healthy at Home ordered for med management. Home. No home going needs anticipated for this pt at this time. Discharge disposition: Home. No home going needs anticipated for this pt at this time. ADOD: 12/21 This TCC will continue to follow for home going needs and safe DC plan. PATIENCE ROACH * Kathrine Dover PharmD - 12/20/2024 3:01 PM EDT Transplant Pharmacist Medication Education Thom Chapin is a 54 y.o. male who underwent DDKT transplant on 10/15/24, postoperative day 66 Thom was seen today the transplant pharmacist as there have been some medication changes and the patient has misfilled his pill box multiple times. Approximately 20 minutes were spent with this patient providing medication education and reviewing new post-transplant medications. An outpatient dosing schedule was created for all oral medications.This schedule was discussed in detail with the patient, including drug name, use, dose, and the appropriate timing of self-administration (i.e. with or without other medications). We reviewed the indication for each medication. We discussed that the patient was transition from tacrolimus IR capsules to tacrolimus ER tablets. The patient accurately recalled the new tacrolimus being little white tablets. I instructed the patient to get rid of any tacrolimus capsules he has at home and reinforced he is now on the capsules. We briefly discussed that his tablets are 1 mg, so if taking a 4 mg dose, he would need four 1 mg capsules. After repetition, the patient demonstrated understanding. I also stressed that the tacrolimusER tablets are only to be taken once a day in the morning. Also discussed the importance of adherence. Both verbal and written instructions were given to the patient outlining the appropriate use of all current oral medications. The patient did not demonstrate an acceptable understanding of their current medication list and will benefit from outpatient follow up education. Patient states he follows the medication list and will continue to do so when filling pillbox. Due to the patient's struggles with adherence, I recommend changing valganciclovir from 450 mg every other day to 450 mg on only Friday, Friday, and Friday to improve adherence as the patient verbalized confusion when discussing the every other day dosing. The patients is moderate CMV risk (+/+) and has poor renal function. Recommend increasing dose to 450 mg every Friday, Friday, , Friday if renal function consistently improves, but does reach threshold for daily dosing. Patient would benefit from pillbox checks in clinic to monitor adherence and further education reinforcement. Kathrine Dover PharmD, BCTXP Clinical Vp Training - Solid Organ Transplant * Anahi De La O MD - 12/20/2024 11:11 AM EDT Images from the original note were not included. TRANSPLANT SURGERY PROGRESS NOTE Thom Chapin underwent transplant surgery on 10/15/2024 (Kidney) and was evaluated on multidisciplinary inpatient rounds. I specifically evaluated the management of immunosuppression to ensure adequate exposure required to decrease the risk of rejection. Furthermore, I reviewed potential side effects including tremor, hyperglycemia, leukopenia, infection, and other neurologic changes. I reviewed and adjusted infectious prophylaxis based on the patients clinical condition and protocols. 24 EVENTS: no acute events DIAGNOSIS: Kidney replaced by transplant ([facility]) Z94.0 PHYSICAL EXAMINATION: Last Recorded Vitals Visit Vitals BP 167/87 (BP Location: Right arm, Patient Position: Lying) Pulse 77 Temp 36.8 C (98.2 F) (Temporal) Resp 18 Intake/Output last 3 Shifts: Intake/Output Summary (Last 24 hours) at 12/20/2024 1111 Last data filed at 12/20/2024 1049 Gross per 24 hour Intake 2210 ml Output 600 ml Net 1610 ml Vitals: 12/17/24 0630 Weight: 59.4 kg (130 lb 15.3 oz) Gen: A+OX3; NAD HEENT: PERRL, sclera anicteric, MMM Cardiac: RRR Chest: Normal inspiratory effort Abdomen: S/NT/ND. Incision C/D/I. Ext: No LE edema LABS: CBC and Auto Differential Result Value Ref Range WBC 3.6 (L) 4.4 - 11.3 x10*3/uL nRBC 0.0 0.0 - 0.0 /100 WBCs RBC 3.01 (L) 4.50 - 5.90 x10*6/uL Hemoglobin 7.6 (L) 13.5 - 17.5 g/dL Hematocrit 25.4 (L) 41.0 - 52.0 % MCV 84 80 - 100 fL MCH 25.2 (L) 26.0 - 34.0 pg MCHC 29.9 (L) 32.0 - 36.0 g/dL RDW 19.1 (H) 11.5 - 14.5 % Platelets 145 (L) 150 - 450 x10*3/uL Renal Function Panel Result Value Ref Range Glucose 210 (H) 74 - 99 mg/dL Sodium 132 (L) 136 - 145 mmol/L Potassium 5.6 (H) 3.5 - 5.3 mmol/L Chloride 109 (H) 98 - 107 mmol/L Bicarbonate 17 (L) 21 - 32 mmol/L Anion Gap 12 10 - 20 mmol/L Urea Nitrogen 63 (H) 6 - 23 mg/dL Creatinine 3.07 (H) 0.50 - 1.30 mg/dL eGFR 23 (L) >60 mL/min/1.73m*2 Calcium 9.1 8.6 - 10.6 mg/dL Phosphorus 4.1 2.5 - 4.9 mg/dL Albumin 3.1 (L) 3.4 - 5.0 g/dL ASSESSMENT AND PLAN: Mr. Chapin is a 54 y.o. male who underwent transplant surgery on 10/15/2024 (Kidney). Kidney allograft function Cr running 2.5-3.0 mg/dL Last HD 12/14 Immunosuppression Increase Envarsus to 5 mg daily On Lex (conversion dosing), dose #3 scheduled 12/31 Myfortic 360 mg bid Prednisone 5 mg daily Electrolytes Replete bicarb Hyperkalemia: lokelma, repeat BMP Anemia Repeat CBC, send T&S PPX Valcyte, bactrim Poorly controlled diabetes Appreciate glycemic control Dispo - pending social plan I spent 35 minutes in the professional and overall care of this patient. Case was presented at Multi Disciplinary team rounds Attending physician, consulting physician, pediatric social worker, pharmacist, residents and fellow were present at the meeting. Anahi De La O MD, PHD, MPH, FACS Chief, Transplant and Hepatobiliary Surgery * Patience Roach - 12/20/2024 9:24 AM EDT 12/20/24 0924 Rapid Rounds Attendance Provider;Care Transitions Expected Discharge Disposition Home Today we still await: Clinical stability Review at Escalation Rounds No escalation needed Thom Chapin is a 54 y.o. male on day 1 of admission presenting with JOSE R (acute kidney injury). Plan per Medical/Surgical team: Pt enrolled in H@H. Waiting for PT/OT recs. Pt needs: TBD. 12/16: Home. No home going needs anticipated for this pt at this time. Discharge disposition: Home. No home going needs anticipated for this pt at this time. ADOD: 12/22 This TCC will continue to follow for home going needs and safe DC plan. PATIENCE ROACH * Janeth Valencia MD - 12/20/2024 8:26 AM EDT Thom Chapin is a 54 y.o. male on day 6 of admission presenting with JOSE R (acute kidney injury). Subjective No overnight event. HyperK this AM. Objective Physical Exam A&ox3, no distress, pleasant MMM, no lesions Lungs with equal air entry, no added sounds Rrr, no m/r/g Abd soft, nt, nd No allograft tenderness No edema b/l Last Recorded Vitals Blood pressure 167/87, pulse 77, temperature 36.8 C (98.2 F), temperature source Temporal, resp. rate 18, weight 59.4 kg (130 lb 15.3 oz), SpO2 100%. Intake/Output last 3 Shifts: I/O last 3 completed shifts: In: 1180 (19.9 mL/kg) [P.O.:1080; I.V.:100 (1.7 mL/kg)] Out: 900 (15.2 mL/kg) [Urine:900 (0.4 mL/kg/hr)] Weight: 59.4 kg Relevant Results Results for orders placed or performed during the hospital encounter of 12/14/24 (from the past 24 hours) POCT GLUCOSE Result Value Ref Range POCT Glucose 204 (H) 74 - 99 mg/dL POCT GLUCOSE Result Value Ref Range POCT Glucose 265 (H) 74 - 99 mg/dL POCT GLUCOSE Result Value Ref Range POCT Glucose 128 (H) 74 - 99 mg/dL CBC and Auto Differential Result Value Ref Range WBC 3.6 (L) 4.4 - 11.3 x10*3/uL nRBC 0.0 0.0 - 0.0 /100 WBCs RBC 3.01 (L) 4.50 - 5.90 x10*6/uL Hemoglobin 7.6 (L) 13.5 - 17.5 g/dL Hematocrit 25.4 (L) 41.0 - 52.0 % MCV 84 80 - 100 fL MCH 25.2 (L) 26.0 - 34.0 pg MCHC 29.9 (L) 32.0 - 36.0 g/dL RDW 19.1 (H) 11.5 - 14.5 % Platelets 145 (L) 150 - 450 x10*3/uL Neutrophils % 76.2 40.0 - 80.0 % Immature Granulocytes %, Automated 0.8 0.0 - 0.9 % Lymphocytes % 13.3 13.0 - 44.0 % Monocytes % 7.5 2.0 - 10.0 % Eosinophils % 1.9 0.0 - 6.0 % Basophils % 0.3 0.0 - 2.0 % Neutrophils Absolute 2.74 1.20 - 7.70 x10*3/uL Immature Granulocytes Absolute, Automated 0.03 0.00 - 0.70 x10*3/uL Lymphocytes Absolute 0.48 (L) 1.20 - 4.80 x10*3/uL Monocytes Absolute 0.27 0.10 - 1.00 x10*3/uL Eosinophils Absolute 0.07 0.00 - 0.70 x10*3/uL Basophils Absolute 0.01 0.00 - 0.10 x10*3/uL Renal Function Panel Result Value Ref Range Glucose 210 (H) 74 - 99 mg/dL Sodium 132 (L) 136 - 145 mmol/L Potassium 5.6 (H) 3.5 - 5.3 mmol/L Chloride 109 (H) 98 - 107 mmol/L Bicarbonate 17 (L) 21 - 32 mmol/L Anion Gap 12 10 - 20 mmol/L Urea Nitrogen 63 (H) 6 - 23 mg/dL Creatinine 3.07 (H) 0.50 - 1.30 mg/dL eGFR 23 (L) >60 mL/min/1.73m*2 Calcium 9.1 8.6 - 10.6 mg/dL Phosphorus 4.1 2.5 - 4.9 mg/dL Albumin 3.1 (L) 3.4 - 5.0 g/dL Magnesium Result Value Ref Range Magnesium 2.14 1.60 - 2.40 mg/dL POCT GLUCOSE Result Value Ref Range POCT Glucose 224 (H) 74 - 99 mg/dL Assessment & Plan JOSE R (acute kidney injury) Acute rejection of kidney transplant ([facility]) 54 y.o. AAM with ESRD sec to DM1, on HD since 12/2015, s/p DDKT 10/15/24 (Dr. Brothers, KDPI 40%, PRA 22%,HCV -/-, CMV +/+, EBV +/+, HBV -/-, donor toxo neg; ATG 4.5 mg/kg induction, maintained on tac, MMF, pred). Post-txp course notable for urinary retention requiring indwelling [place] (now removed), h/oDGF, admission 11/2024 for borderline ACR on bx 11/23/24 s/p IV steroid pulse and [employer]INE[employer] prn (last HD 11/30/24), re-admitted 12/06-12/09 with azotemia, hyperkalemia requiring HD (12/07/24), rpt bx 12/07/24 with ATN, no e/o rejection who is currently admitted for further eval after HD 12/14/24 (as outpt) for worsening renal function parameters, acidosis, uncontrolled hyperglycemia. Allograft function: - post-rejection still requiring HD intermittently. Last HD 12/14/24 with no UF. - last kidney bx 12/07/24 with ATN, no rejection. H/o borderline ACR 11/23/24 s/p steroid pulse. - Cr mid 2's-3 - metabolic acidosis: po bicarb increased to 1300 mg TID + bicarb gtt - HyperK - Lokelma 10 g TID x 2 days - Allosure 12/15 0.54% (index value), DSA 12/15 pending. Last DSA 11/19/24 neg. - no urgent indication for dialysis Immunosuppression: lex + low-dose tac - Envarsus XR 4 mg/d. Goal Fk 4-6. - Belatacept 5 mg/kg loading schedule, dose #2 completed 12/17/24. Next dose due 12/31/24. - MPA 360 mg bid (h/o leukopenia) - Pred 5 mg/d - Ppx: Bactrim, Mycelex troches, Valcyte renally dosed (CMV +/+) HTN: - Amlodipine 10 mg/day - Coreg 25 mg BID LUTS: Flomax 0.4 ,g at bedtime Anemia: Hb 8.5, stable. s/p PRBC 12/15. incr Aranesp to 100 mcg weekly 12/20. Adequate iron store CKD-MBD: Ca, phos acceptable calcitriol 0.25 mcg/d. Ca supplement DM: uncontrolled hyperglycemia, improving - endocrine consulted CVD: atorvastatin 40 mg/day + ASA Janeth Valencia MD * Eduardo Cleary MD - 12/19/2024 10:52 PM EDT Thom Chapin is a 54 y.o. male on day 5 of admission presenting with JOSE R (acute kidney injury). No acute issues overnight. Last HD 12/14. Nonoliguric. Cr 2.4, continues to improve. Scheduled medications amLODIPine, 10 mg, oral, Daily aspirin, 81 mg, oral, Daily atorvastatin, 40 mg, oral, Daily calcitriol, 0.25 mcg, oral, Daily calcium carbonate, 1 tablet, oral, BID carvedilol, 25 mg, oral, BID clotrimazole, 10 mg, Mouth/Throat, TID after meals [Held by provider] furosemide, 40 mg, oral, BID heparin (porcine), 5,000 Units, subcutaneous, q8h AMBER [Held by provider] insulin degludec, 10 Units, subcutaneous, q AM insulin glargine, 10 Units, subcutaneous, q24h insulin lispro, 0-5 Units, subcutaneous, TID AC insulin lispro, 9 Units, subcutaneous, TID AC mycophenolate, 360 mg, oral, q12h AMBER pantoprazole, 40 mg, oral, Daily before breakfast predniSONE, 5 mg, oral, Daily sodium bicarbonate, 1,300 mg, oral, TID sulfamethoxazole-trimethoprim, 1 tablet, oral, Daily tacrolimus ER, 4 mg, oral, Daily tamsulosin, 0.4 mg, oral, Daily valGANciclovir, 450 mg, oral, Every other day Continuous medications PRN medications PRN medications: acetaminophen, hydrALAZINE Last Recorded Vitals Blood pressure 113/75, pulse 76, temperature 36.7 C (98.1 F), temperature source Temporal, resp. rate 18, weight 59.4 kg (130 lb 15.3 oz), SpO2 100%. Intake/Output last 3 Shifts: I/O last 3 completed shifts: In: 1060 (17.8 mL/kg) [P.O.:960; I.V.:100 (1.7 mL/kg)] Out: 1100 (18.5 mL/kg) [Urine:1100 (0.5 mL/kg/hr)] Weight: 59.4 kg A&ox3, no distress, pleasant MMM, no lesions Lungs with equal air entry, no added sounds Rrr, no m/r/g Abd soft, nt, nd No allograft tenderness No edema b/l Results for orders placed or performed during the hospital encounter of 12/14/24 (from the past 24 hours) CBC and Auto Differential Result Value Ref Range WBC 4.4 4.4 - 11.3 x10*3/uL nRBC 0.0 0.0 - 0.0 /100 WBCs RBC 3.22 (L) 4.50 - 5.90 x10*6/uL Hemoglobin 8.5 (L) 13.5 - 17.5 g/dL Hematocrit 26.8 (L) 41.0 - 52.0 % MCV 83 80 - 100 fL MCH 26.4 26.0 - 34.0 pg MCHC 31.7 (L) 32.0 - 36.0 g/dL RDW 18.8 (H) 11.5 - 14.5 % Platelets 140 (L) 150 - 450 x10*3/uL Neutrophils % 78.2 40.0 - 80.0 % Immature Granulocytes %, Automated 0.9 0.0 - 0.9 % Lymphocytes % 12.6 13.0 - 44.0 % Monocytes % 6.7 2.0 - 10.0 % Eosinophils % 1.4 0.0 - 6.0 % Basophils % 0.2 0.0 - 2.0 % Neutrophils Absolute 3.41 1.20 - 7.70 x10*3/uL Immature Granulocytes Absolute, Automated 0.04 0.00 - 0.70 x10*3/uL Lymphocytes Absolute 0.55 (L) 1.20 - 4.80 x10*3/uL Monocytes Absolute 0.29 0.10 - 1.00 x10*3/uL Eosinophils Absolute 0.06 0.00 - 0.70 x10*3/uL Basophils Absolute 0.01 0.00 - 0.10 x10*3/uL Tacrolimus Result Value Ref Range Tacrolimus 3.7 <=15.0 ng/mL Renal Function Panel Result Value Ref Range Glucose 136 (H) 74 - 99 mg/dL Sodium 135 (L) 136 - 145 mmol/L Potassium 4.9 3.5 - 5.3 mmol/L Chloride 112 (H) 98 - 107 mmol/L Bicarbonate 17 (L) 21 - 32 mmol/L Anion Gap 11 10 - 20 mmol/L Urea Nitrogen 60 (H) 6 - 23 mg/dL Creatinine 2.40 (H) 0.50 - 1.30 mg/dL eGFR 31 (L) >60 mL/min/1.73m*2 Calcium 8.8 8.6 - 10.6 mg/dL Phosphorus 3.8 2.5 - 4.9 mg/dL Albumin 3.1 (L) 3.4 - 5.0 g/dL Magnesium Result Value Ref Range Magnesium 1.55 (L) 1.60 - 2.40 mg/dL POCT GLUCOSE Result Value Ref Range POCT Glucose 167 (H) 74 - 99 mg/dL POCT GLUCOSE Result Value Ref Range POCT Glucose 204 (H) 74 - 99 mg/dL POCT GLUCOSE Result Value Ref Range POCT Glucose 265 (H) 74 - 99 mg/dL POCT GLUCOSE Result Value Ref Range POCT Glucose 128 (H) 74 - 99 mg/dL Assessment & Plan 54 y.o. AAM with ESRD sec to DM1, on HD since 12/2015, s/p DDKT 10/15/24 (Dr. Brothers, KDPI 40%, PRA 22%,HCV -/-, CMV +/+, EBV +/+, HBV -/-, donor toxo neg; ATG 4.5 mg/kg induction, maintained on tac, MMF, pred). Post-txp course notable for urinary retention requiring indwelling [place] (now removed), h/oDGF, admission 11/2024 for borderline ACR on bx 11/23/24 s/p IV steroid pulse and [employer]INE[employer] prn (last HD 11/30/24), re-admitted 12/06-12/09 with azotemia, hyperkalemia requiring HD (12/07/24), rpt bx 12/07/24 with ATN, no e/o rejection who is currently admitted for further eval after HD 12/14/24 (as outpt) for worsening renal function parameters, acidosis, uncontrolled hyperglycemia. Allograft function: - h/o DGF, still requiring HD intermittently. Last HD 12/14/24 with no UF. - last kidney bx 12/07/24 with ATN, no rejection. H/o borderline ACR 11/23/24 s/p steroid pulse. - Cr 2.4, improving from admission Cr 4.6. - nonoliguric. No hypervolemia on exam. UA 12/15 unremarkable. Renal US w/o obstruction - metabolic indices notable for acidosis. po bicarb increased to 1300 mg tid. - Allosure 12/15 0.54% (index value), DSA 12/15 pending. Last DSA 11/19/24 neg. - HTN: Bps improved. Monitor and titrate meds as indicated - Anemia: Hb 8.5, stable. s/p PRBC 12/15. incr Aranesp to 100 mcg weekly (next dose due 12/21). Ferritin 3218 12/07/24 - CKD-MBD: Ca, phos acceptable. On Ca supplements, calcitriol 0.25 mcg/d. Check PTH, vit D. - Avoid potential nephrotoxins. Dose meds for CrCl. maintain adequate hydration Immunosuppression: lex + low-dose tac - On Envarsus 3mg/d. Goal Fk 4-6. Fk level 3.7 this AM. Monitor rpt level. - on belatacept 5 mg/kg q2 weeks, dose #2 completed 12/17/24. Next dose due 12/31/24. - Cont MPA 360 mg bid (h/o leukopenia), pred 5 mg/d - Ppx: Bactrim, Mycelex troches, Valcyte (CMV +/+) DM: uncontrolled hyperglycemia, improving - endocrine consulted Will follow. Potential discharge home Friday12/20/24 Eduardo Cleary MD * Eli Quezada MD - 12/19/2024 6:02 PM EDT Thom Chapin is a 54 y.o. male on day 5 of admission presenting with JOSE R (acute kidney injury). Subjective CATHY Objective Vitals: 12/19/24 1611 BP: 119/67 Pulse: 76 Resp: 17 Temp: 36 C (96.8 F) SpO2: 100% Physical Exam Constitutional: Appearance: Normal appearance. Eyes: Pupils: Pupils are equal, round, and reactive to light. Cardiovascular: Rate and Rhythm: Normal rate. Pulmonary: Effort: Pulmonary effort is normal. No respiratory distress. Abdominal: General: There is no distension. Palpations: Abdomen is soft. Comments: Well healed Musculoskeletal: General: Normal range of motion. Right lower leg: No edema. Left lower leg: No edema. Skin: General: Skin is warm and dry. Neurological: General: No focal deficit present. Mental Status: He is alert and oriented to person, place, and time. Psychiatric: Mood and Affect: Mood normal. Behavior: Behavior normal. Last Recorded Vitals Blood pressure 119/67, pulse 76, temperature 36 C (96.8 F), temperature source Temporal, resp. rate17, weight 59.4 kg (130 lb 15.3 oz), SpO2 100%. Intake/Output last 3 Shifts: I/O last 3 completed shifts: In: 240 (4 mL/kg) [P.O.:240] Out: 400 (6.7 mL/kg) [Urine:400 (0.2 mL/kg/hr)] Weight: 59.4 kg Relevant Results Lab Results Component Value Date WBC 4.4 12/19/2024 HGB 8.5 (L) 12/19/2024 HCT 26.8 (L) 12/19/2024 MCV 83 12/19/2024 PLT 140 (L) 12/19/2024 Lab Results Component Value Date GLUCOSE 136 (H) 12/19/2024 CALCIUM 8.8 12/19/2024 NA 135 (L) 12/19/2024 K 4.9 12/19/2024 CO2 17 (L) 12/19/2024 CL 112 (H) 12/19/2024 BUN 60 (H) 12/19/2024 CREATININE 2.40 (H) 12/19/2024 amLODIPine, 10 mg, oral, Daily aspirin, 81 mg, oral, Daily atorvastatin, 40 mg, oral, Daily calcitriol, 0.25 mcg, oral, Daily calcium carbonate, 1 tablet, oral, BID carvedilol, 25 mg, oral, BID clotrimazole, 10 mg, Mouth/Throat, TID after meals [Held by provider] furosemide, 40 mg, oral, BID heparin (porcine), 5,000 Units, subcutaneous, q8h AMBER [Held by provider] insulin degludec, 10 Units, subcutaneous, q AM insulin glargine, 10 Units, subcutaneous, q24h insulin lispro, 0-5 Units, subcutaneous, TID AC insulin lispro, 9 Units, subcutaneous, TID AC mycophenolate, 360 mg, oral, q12h AMBER pantoprazole, 40 mg, oral, Daily before breakfast predniSONE, 5 mg, oral, Daily sodium bicarbonate, 1,300 mg, oral, TID sulfamethoxazole-trimethoprim, 1 tablet, oral, Daily tacrolimus ER, 4 mg, oral, Daily tamsulosin, 0.4 mg, oral, Daily valGANciclovir, 450 mg, oral, Every other day Assessment & Plan Kidney allograft function Poor function, intermittently needing dialysis Immunosuppression Envarsus 4 daily On Lex (conversion dosing), dose 2 12/17 Myfortic 360/360 Pred 5 PPX Valcyte, bactrim, Medical noncompliance Does not follow up and difficult manage outpatient Poorly controlled diabetes Better now inpatient Dispo - pending social plan I spent 35 minutes in the professional and overall care of this patient. Eli Quezada MD * Soledad Lance MD - 12/19/2024 1:24 PM EDT Thom Chapin is a 54 y.o. male on day 5 of admission presenting with JOSE R (acute kidney injury). Subjective NAEON. Pt seen and examined at bedside today . Doing ok in NAD. Reports good appetite and tolerating diet well. I have reviewed histories, allergies and medications have been reviewed and there are no changes Objective Last Recorded Vitals Blood pressure 120/72, pulse 72, temperature 36.4 C (97.5 F), resp. rate 17, weight 59.4 kg (130 lb15.3 oz), SpO2 99%. Intake/Output last 3 Shifts: I/O last 3 completed shifts: In: 240 (4 mL/kg) [P.O.:240] Out: 400 (6.7 mL/kg) [Urine:400 (0.2 mL/kg/hr)] Weight: 59.4 kg Relevant Results Results from last 7 days Lab Units 12/19/24 1243 12/19/24 0806 12/19/24 0526 12/18/24 1917 12/18/24 1553 12/18/24 1225 12/18/24 0742 12/18/24 0521 12/17/24 0728 12/17/24 0518 12/16/24 0826 12/16/24 0534 12/15/24 1117 12/15/24 1115 POCT GLUCOSE mg/dL 204* 167* -- 171* 210* 267* < > -- < > -- < > -- < > -- GLUCOSE mg/dL -- -- 136* -- -- -- -- 167* -- 292* -- 250* -- 467* < > = values in this interval not displayed. Assessment & Plan JOSE R (acute kidney injury) Thom Chapin is a 54 y.o. male with PMH significant for ESRD 2/2 T1DM who received a donor kidney transplant 10/31 presenting initially with ATN and borderline rejection of transplanted kidney. He was admitted to the transplant service for IV steroid pulse 11/23-11/30 and discharged for outpt HD treatment. He was then re-admitted 12/06 with hyperkalemia with EKG changes, diarrhea, and hyperglycemia with low bicarb. We were consulted for glucose control in the setting of steroid use. Patient's glucose is above range based on dex com data and better controlled in the hospital with increased insulin requirement, which means he is having some insulin resistance with the steroids an may temporarily need an increased dose for the time being. Diabetes History Per chart review, patient when he was diagnosed with diabetes when he was about 23 years old. Patient verified that he started insulin about the same time, around 08/08/1983. Type of diabetes: T1D Year diagnosed or age: age 22 Hospitalizations for DKA or HHS: Patient thinks he was in DKA at time of diagnosis. No further hospitalizations for DKA Complications: nephropathy, retinopathy, PVD Seen by PCP or Endocrinology: last seen by Simone Westbrook PA-C endocrine on 11/02/24 Frequency of glucose checks: via dexcom G7 Frequency of Hypoglycemia: 0% in past two weeks Hypoglycemia unawareness: yes Severe hypoglycemia requiring assistance from others: Yes, several occasions. Last event about 2 years ago Currently on Pred 5 mg daily. Plan - Continue Glargine 10 units - Increase Lispro to 9 units with meals, hold in NPO -continue SSI#2 TID AC: 2:50>150 -Accuchecks (not BMP) TID and QHS- kindly ensure QHS Accucheck is drawn; it is often missed -inpatient BG target 140-180 -Will continue to follow and titrate insulin accordingly - Follow-up with endocrinology PA. Piña on 01/13/2025. Plan conveyed to primary team. Pt seen, examined, and d/w Dr. Nia Lance MD Endocrinology Fellow Cosigned by Alia Kramer MD at 12/19/2024 2:32 PM EDT Associated attestation - Alia Kramer MD - 12/19/2024 2:32 PM EDT I reviewed the resident/fellow's documentation and discussed the patient with the resident/fellow. I agree with the resident/fellow's medical decision making as documented in the note. * Eduardo Cleary MD - 12/18/2024 3:43 PM EDT Thom Chapin is a 54 y.o. male on day 4 of admission presenting with JOSE R (acute kidney injury). No acute issues overnight. Last HD 12/14. Nonoliguric. Cr 2.78, slightly better Scheduled medications amLODIPine, 10 mg, oral, Daily aspirin, 81 mg, oral, Daily atorvastatin, 40 mg, oral, Daily calcitriol, 0.25 mcg, oral, Daily calcium carbonate, 1 tablet, oral, BID carvedilol, 25 mg, oral, BID clotrimazole, 10 mg, Mouth/Throat, TID after meals [Held by provider] furosemide, 40 mg, oral, BID heparin (porcine), 5,000 Units, subcutaneous, q8h AMBER [Held by provider] insulin degludec, 10 Units, subcutaneous, q AM insulin glargine, 10 Units, subcutaneous, q24h insulin lispro, 0-5 Units, subcutaneous, TID AC insulin lispro, 7 Units, subcutaneous, TID AC mycophenolate, 360 mg, oral, q12h AMBER pantoprazole, 40 mg, oral, Daily before breakfast predniSONE, 5 mg, oral, Daily sodium bicarbonate, 1,300 mg, oral, BID sulfamethoxazole-trimethoprim, 1 tablet, oral, Daily [START ON 12/19/2024] tacrolimus ER, 4 mg, oral, Daily tamsulosin, 0.4 mg, oral, Daily valGANciclovir, 450 mg, oral, Every other day Continuous medications PRN medications PRN medications: acetaminophen, hydrALAZINE Last Recorded Vitals Blood pressure 135/78, pulse 74, temperature 36.2 C (97.2 F), temperature source Temporal, resp. rate 17, weight 59.4 kg (130 lb 15.3 oz), SpO2 100%. Intake/Output last 3 Shifts: I/O last 3 completed shifts: In: 820 (13.8 mL/kg) [P.O.:720; IV Piggyback:100] Out: 850 (14.3 mL/kg) [Urine:850 (0.4 mL/kg/hr)] Weight: 59.4 kg A&ox3, no distress, pleasant MMM, no lesions Lungs with equal air entry, no added sounds Rrr, no m/r/g Abd soft, nt, nd No allograft tenderness No edema b/l Results for orders placed or performed during the hospital encounter of 12/14/24 (from the past 24 hours) POCT GLUCOSE Result Value Ref Range POCT Glucose 184 (H) 74 - 99 mg/dL CBC and Auto Differential Result Value Ref Range WBC 3.8 (L) 4.4 - 11.3 x10*3/uL nRBC 0.0 0.0 - 0.0 /100 WBCs RBC 3.22 (L) 4.50 - 5.90 x10*6/uL Hemoglobin 8.2 (L) 13.5 - 17.5 g/dL Hematocrit 27.0 (L) 41.0 - 52.0 % MCV 84 80 - 100 fL MCH 25.5 (L) 26.0 - 34.0 pg MCHC 30.4 (L) 32.0 - 36.0 g/dL RDW 18.8 (H) 11.5 - 14.5 % Platelets 121 (L) 150 - 450 x10*3/uL Neutrophils % 75.9 40.0 - 80.0 % Immature Granulocytes %, Automated 0.5 0.0 - 0.9 % Lymphocytes % 16.4 13.0 - 44.0 % Monocytes % 6.1 2.0 - 10.0 % Eosinophils % 1.1 0.0 - 6.0 % Basophils % 0.0 0.0 - 2.0 % Neutrophils Absolute 2.88 1.20 - 7.70 x10*3/uL Immature Granulocytes Absolute, Automated 0.02 0.00 - 0.70 x10*3/uL Lymphocytes Absolute 0.62 (L) 1.20 - 4.80 x10*3/uL Monocytes Absolute 0.23 0.10 - 1.00 x10*3/uL Eosinophils Absolute 0.04 0.00 - 0.70 x10*3/uL Basophils Absolute 0.00 0.00 - 0.10 x10*3/uL Renal Function Panel Result Value Ref Range Glucose 167 (H) 74 - 99 mg/dL Sodium 133 (L) 136 - 145 mmol/L Potassium 4.8 3.5 - 5.3 mmol/L Chloride 111 (H) 98 - 107 mmol/L Bicarbonate 15 (L) 21 - 32 mmol/L Anion Gap 12 10 - 20 mmol/L Urea Nitrogen 62 (H) 6 - 23 mg/dL Creatinine 2.78 (H) 0.50 - 1.30 mg/dL eGFR 26 (L) >60 mL/min/1.73m*2 Calcium 8.4 (L) 8.6 - 10.6 mg/dL Phosphorus 3.3 2.5 - 4.9 mg/dL Albumin 3.0 (L) 3.4 - 5.0 g/dL Magnesium Result Value Ref Range Magnesium 1.62 1.60 - 2.40 mg/dL Tacrolimus Result Value Ref Range Tacrolimus 4.7 <=15.0 ng/mL POCT GLUCOSE Result Value Ref Range POCT Glucose 160 (H) 74 - 99 mg/dL POCT GLUCOSE Result Value Ref Range POCT Glucose 267 (H) 74 - 99 mg/dL POCT GLUCOSE Result Value Ref Range POCT Glucose 210 (H) 74 - 99 mg/dL Assessment & Plan 54 y.o. male with ESRD sec to DM1, on HD since 12/2015, s/p DDKT 10/15/24 (Dr. Brothers, KDPI 40%, PRA 22%, HCV -/-, CMV +/+, EBV +/+, HBV -/-, donor toxo neg; ATG 4.5 mg/kg induction, maintained on tac, MMF, pred). 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 Allograft function: - h/o DGF, still requiring HD intermittently. Last HD 12/14/24 with no UF. - last kidney bx 12/07/24 with ATN, no rejection. H/o borderline ACR 11/23/24 s/p steroid pulse. - Cr 2.78, slightly better - nonoliguric. No hypervolemia on exam. UA 12/15 unremarkable. Renal US w/o obstruction - metabolic indices notable for acidosis. Start po bicarb 1300 mg bid.. - Allosure, DSA 12/15 pending. Last DSA 11/19/24 neg. - HTN: Bps improved. Monitor and titrate meds as indicated - Anemia: Hb 8.2, stable. s/p PRBC 12/15. incr Aranesp to 100 mcg weekly (last dose 12/14/24, 60 mcg). Ferritin 3218 12/07/24 - CKD-MBD: Ca, phos acceptable. On Ca supplements, calcitriol 0.25 mcg/d. Check PTH, vit D. - Avoid potential nephrotoxins. Dose meds for CrCl. maintain adequate hydration Immunosuppression: - On Envarsus 3m/g. Goal Fk 4-6. Fk level 4.7 this AM. Cont current dose. - on belatacept 5 mg/kg q2 weeks, dose #2 completed 12/17/24. Next dose due 12/31/24. - Cont MPA 360 mg bid (leukopenia), pred 5 mg/d - Ppx: Bactrim, Mycelex troches, Valcyte (CMV +/+) DM: uncontrolled hyperglycemia - endocrine consulted Will follow. Potential discharge home Friday12/20/24 Eduardo Cleary MD * Eduardo Cleary MD - 12/17/2024 3:42 PM EDT Thom Chapin is a 54 y.o. male on day 3 of admission presenting with JOSE R (acute kidney injury). No acute issues overnight. Pt without any complaints this AM. Last HD 12/14. Nonoliguric. Cr stable ~3. Scheduled medications amLODIPine, 10 mg, oral, Daily aspirin, 81 mg, oral, Daily atorvastatin, 40 mg, oral, Daily calcitriol, 0.25 mcg, oral, Daily calcium carbonate, 1 tablet, oral, BID carvedilol, 25 mg, oral, BID clotrimazole, 10 mg, Mouth/Throat, TID after meals [Held by provider] furosemide, 40 mg, oral, BID heparin (porcine), 5,000 Units, subcutaneous, q8h AMBER [Held by provider] insulin degludec, 10 Units, subcutaneous, q AM insulin glargine, 10 Units, subcutaneous, q24h insulin lispro, 0-5 Units, subcutaneous, TID AC insulin lispro, 7 Units, subcutaneous, TID AC mycophenolate, 360 mg, oral, q12h AMBER pantoprazole, 40 mg, oral, Daily before breakfast predniSONE, 5 mg, oral, Daily sulfamethoxazole-trimethoprim, 1 tablet, oral, Daily [START ON 12/18/2024] tacrolimus ER, 4 mg, oral, Daily tamsulosin, 0.4 mg, oral, Daily valGANciclovir, 450 mg, oral, Every other day Continuous medications PRN medications PRN medications: acetaminophen, hydrALAZINE Last Recorded Vitals Blood pressure 161/80, pulse 75, temperature 36.8 C (98.2 F), temperature source Temporal, resp. rate 17, weight 59.4 kg (130 lb 15.3 oz), SpO2 98%. Intake/Output last 3 Shifts: I/O last 3 completed shifts: In: 1300 (21.9 mL/kg) [P.O.:1200; IV Piggyback:100] Out: 1400 (23.6 mL/kg) [Urine:1400 (0.7 mL/kg/hr)] Weight: 59.4 kg A&ox3, no distress, pleasant MMM, no lesions Lungs with equal air entry, no added sounds Rrr, no m/r/g Abd soft, nt, nd No allograft tenderness No edema b/l Results for orders placed or performed during the hospital encounter of 12/14/24 (from the past 24 hours) CBC and Auto Differential Result Value Ref Range WBC 3.6 (L) 4.4 - 11.3 x10*3/uL nRBC 0.0 0.0 - 0.0 /100 WBCs RBC 3.21 (L) 4.50 - 5.90 x10*6/uL Hemoglobin 8.3 (L) 13.5 - 17.5 g/dL Hematocrit 26.3 (L) 41.0 - 52.0 % MCV 82 80 - 100 fL MCH 25.9 (L) 26.0 - 34.0 pg MCHC 31.6 (L) 32.0 - 36.0 g/dL RDW 18.9 (H) 11.5 - 14.5 % Platelets 122 (L) 150 - 450 x10*3/uL Neutrophils % 76.2 40.0 - 80.0 % Immature Granulocytes %, Automated 0.6 0.0 - 0.9 % Lymphocytes % 16.0 13.0 - 44.0 % Monocytes % 5.5 2.0 - 10.0 % Eosinophils % 1.4 0.0 - 6.0 % Basophils % 0.3 0.0 - 2.0 % Neutrophils Absolute 2.76 1.20 - 7.70 x10*3/uL Immature Granulocytes Absolute, Automated 0.02 0.00 - 0.70 x10*3/uL Lymphocytes Absolute 0.58 (L) 1.20 - 4.80 x10*3/uL Monocytes Absolute 0.20 0.10 - 1.00 x10*3/uL Eosinophils Absolute 0.05 0.00 - 0.70 x10*3/uL Basophils Absolute 0.01 0.00 - 0.10 x10*3/uL Renal Function Panel Result Value Ref Range Glucose 292 (H) 74 - 99 mg/dL Sodium 133 (L) 136 - 145 mmol/L Potassium 5.2 3.5 - 5.3 mmol/L Chloride 107 98 - 107 mmol/L Bicarbonate 19 (L) 21 - 32 mmol/L Anion Gap 12 10 - 20 mmol/L Urea Nitrogen 69 (H) 6 - 23 mg/dL Creatinine 3.07 (H) 0.50 - 1.30 mg/dL eGFR 23 (L) >60 mL/min/1.73m*2 Calcium 8.8 8.6 - 10.6 mg/dL Phosphorus 3.4 2.5 - 4.9 mg/dL Albumin 2.9 (L) 3.4 - 5.0 g/dL Magnesium Result Value Ref Range Magnesium 1.73 1.60 - 2.40 mg/dL Tacrolimus Result Value Ref Range Tacrolimus 5.1 <=15.0 ng/mL POCT GLUCOSE Result Value Ref Range POCT Glucose 294 (H) 74 - 99 mg/dL POCT GLUCOSE Result Value Ref Range POCT Glucose 285 (H) 74 - 99 mg/dL POCT GLUCOSE Result Value Ref Range POCT Glucose 120 (H) 74 - 99 mg/dL POCT GLUCOSE Result Value Ref Range POCT Glucose 145 (H) 74 - 99 mg/dL POCT GLUCOSE Result Value Ref Range POCT Glucose 184 (H) 74 - 99 mg/dL Assessment & Plan 54 y.o. male with ESRD sec to DM1, on HD since 12/2015, s/p DDKT 10/15/24 (Dr. Brothers, KDPI 40%, PRA 22%, HCV -/-, CMV +/+, EBV +/+, HBV -/-, donor toxo neg; ATG 4.5 mg/kg induction, maintained on tac, MMF, pred). 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 Allograft function: - h/o DGF, still requiring HD intermittently. Last HD 12/14/24 with no UF. - last kidney bx 12/07/24 with ATN, no rejection. H/o borderline ACR 11/23/24 s/p steroid pulse. - Cr stable ~3 on recent labs - nonoliguric. No hypervolemia on exam. UA 12/15 unremarkable. Renal US w/o obstruction - metabolic indices on labs this AM acceptable. 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 Will monitor daily. - Allosure, DSA 12/15 pending. Last DSA 11/19/24 neg. - HTN: Bps above goal. Monitor and titrate meds as indicated - Anemia: Hb 7.7 --> 8.9 --> 8.3 s/p PRBC 12/15. On Aranesp 60 mcg weekly (last dose 12/14/24). Ferritin 3218 12/07/24 - CKD-MBD: Ca, phos acceptable. On Ca supplements, calcitriol 0.25 mcg/d. Check PTH with next labs - Avoid potential nephrotoxins. Dose meds for CrCl. maintain adequate hydration Immunosuppression: - On Envarsus 3m/g. Goal Fk 8-10. Fk 12/15 50 (?valid), 5.8 12/16, 5.1 12/17. Cont Envarsus 3 mg/d - on belatacept 5 mg/kg q2 weeks, dose #2 completed 12/17/24. Next dose due 12/31/24. - Cont MPA 360 mg bid (leukopenia), reduce pred to 5 mg/d - Ppx: Bactrim, Mycelex troches, Valcyte (CMV +/+) DM: uncontrolled hyperglycemia - endocrine consulted Will follow. Eduardo Cleary MD * Leighann Yarbrough MD - 12/17/2024 12:06 PM EDT Thom Chapin is a 54 y.o. male on day 3 of admission presenting with JOSE R (acute kidney injury). Subjective This morning, Thom is doing well. He has no new complaints. Glucose is remaining in the 200s. I have reviewed histories, allergies and medications have been reviewed and there are no changes Objective Review of Systems Constitutional: Negative for appetite change and unexpected weight change. Gastrointestinal: Negative for abdominal pain, constipation, diarrhea, nausea and vomiting. Neurological: Negative for weakness and headaches. Physical Exam Constitutional: General: He is not in acute distress. Appearance: Normal appearance. Pulmonary: Effort: Pulmonary effort is normal. No respiratory distress. Abdominal: General: Abdomen is flat. There is no distension. Palpations: Abdomen is soft. Tenderness: There is no abdominal tenderness. Skin: General: Skin is warm and dry. Neurological: General: No focal deficit present. Mental Status: He is alert and oriented to person, place, and time. Last Recorded Vitals Blood pressure 147/74, pulse 76, temperature 36.9 C (98.4 F), temperature source Temporal, resp. rate 17, weight 59.4 kg (130 lb 15.3 oz), SpO2 100%. Intake/Output last 3 Shifts: I/O last 3 completed shifts: In: 5791.7 (97.5 mL/kg) [P.O.:1080; I.V.:1265 (21.3 mL/kg); Blood:3446.7] Out: 700 (11.8 mL/kg) [Urine:700 (0.3 mL/kg/hr)] Weight: 59.4 kg Relevant Results Results from last 7 days Lab Units 12/17/24 1117 12/17/24 0728 12/17/24 0518 12/16/24 1945 12/16/24 1607 12/16/24 1148 12/16/24 0826 12/16/24 0534 12/15/24 1117 12/15/24 1115 12/15/24 0811 12/15/24 0805 12/14/24 0644 POCT GLUCOSE mg/dL 285* 294* -- 235* 244* 242* < > -- < > -- < > -- -- GLUCOSE mg/dL -- -- 292* -- -- -- -- 250* -- 467* -- 469* 352* < > = values in this interval not displayed. Scheduled medications Scheduled Medications[1] Continuous medications Continuous Medications[2] PRN medications PRN Medications[3] Assessment & Plan JOSE R (acute kidney injury) Assessment Thom Chapin is a 54 y.o. male with PMH significant for ESRD 2/2 T1DM who received a donor kidney transplant 10/31 presenting initially with ATN and borderline rejection of transplanted kidney. He was admitted to the transplant service for IV steroid pulse 11/23-11/30 and discharged for outpt HD treatment. He was then re-admitted 12/06 with hyperkalemia with EKG changes, diarrhea, and hyperglycemia with low bicarb. We were consulted for glucose control in the setting of steroid use. Patient's glucose is above range based on dex com data and better controlled in the hospital with increased insulin requirement, which means he is having some insulin resistance with the steroids an may temporarily need an increased dose for the time being. CGM Interpretation: Patient has persistent hyperglycemia likely due to his steroid regimen, which means his insulin regimen will need to be intensified. Plan - Continue Glargine 10 units - Continue the Lispro 7 units with SSI#2. Will continue to reassess given steroid dose reduction to5mg. - Follow-up with Simone 01/13/2025. This patient was discussed with endocrinology fellow Dr. Terrell Lance and attending Dr. Wilder. Thank you for the consult. Please reach out if you have any further questions. We will be following. Leighann Yarbrough MD Internal Medicine PGY-1 [1] amLODIPine, 10 mg, oral, Daily aspirin, 81 mg, oral, Daily atorvastatin, 40 mg, oral, Daily belatacept, 287.5 mg, intravenous, Once calcitriol, 0.25 mcg, oral, Daily calcium carbonate, 1 tablet, oral, BID carvedilol, 25 mg, oral, BID clotrimazole, 10 mg, Mouth/Throat, TID after meals [Held by provider] furosemide, 40 mg, oral, BID heparin (porcine), 5,000 Units, subcutaneous, q8h AMBER [Held by provider] insulin degludec, 10 Units, subcutaneous, q AM insulin glargine, 10 Units, subcutaneous, q24h insulin lispro, 0-5 Units, subcutaneous, TID AC insulin lispro, 7 Units, subcutaneous, TID AC mycophenolate, 360 mg, oral, q12h AMBER pantoprazole, 40 mg, oral, Daily before breakfast predniSONE, 5 mg, oral, Daily sulfamethoxazole-trimethoprim, 1 tablet, oral, Daily tacrolimus ER, 3 mg, oral, Daily tamsulosin, 0.4 mg, oral, Daily valGANciclovir, 450 mg, oral, Every other day [2] [3] PRN medications: acetaminophen, hydrALAZINE Cosigned by Alia Kramer MD at 12/17/2024 5:08 PM EDT Associated attestation - Alia Kramer MD - 12/17/2024 5:08 PM EDT I reviewed the resident/fellow's documentation and discussed the patient with the resident/fellow. I agree with the resident/fellow's medical decision making as documented in the note. * Patience Roach - 12/17/2024 9:35 AM EDT 12/17/24 0935 Rapid Rounds Attendance Provider;Care Transitions;Nurse Expected Discharge Disposition Home Today we still await: Clinical stability Review at Escalation Rounds No escalation needed Thom Chapin is a 54 y.o. male on day 1 of admission presenting with JOSE R (acute kidney injury). Plan per Medical/Surgical team: Pt enrolled in H@H. Waiting for PT/OT recs. Pt needs: TBD. 12/16: Home. No home going needs anticipated for this pt at this time. Discharge disposition: Home. No home going needs anticipated for this pt at this time. ADOD: 12/20 This TCC will continue to follow for home going needs and safe DC plan. PATIENCE ROACH * Geovanna Brothers MD - 12/17/2024 9:07 AM EDT Thom Chapin is a 54 y.o. male on day 3 of admission presenting with JOSE R (acute kidney injury). Subjective CATHY Objective Vitals: 12/17/24 0821 BP: 145/77 Pulse: 83 Resp: 18 Temp: SpO2: 100% Physical Exam Constitutional: Appearance: Normal appearance. Eyes: Pupils: Pupils are equal, round, and reactive to light. Cardiovascular: Rate and Rhythm: Normal rate. Pulmonary: Effort: Pulmonary effort is normal. No respiratory distress. Abdominal: General: There is no distension. Palpations: Abdomen is soft. Comments: Well healed Musculoskeletal: General: Normal range of motion. Right lower leg: No edema. Left lower leg: No edema. Skin: General: Skin is warm and dry. Neurological: General: No focal deficit present. Mental Status: He is alert and oriented to person, place, and time. Psychiatric: Mood and Affect: Mood normal. Behavior: Behavior normal. Last Recorded Vitals Blood pressure 145/77, pulse 83, temperature 37 C (98.6 F), temperature source Temporal, resp. rate18, weight 59.4 kg (130 lb 15.3 oz), SpO2 100%. Intake/Output last 3 Shifts: I/O last 3 completed shifts: In: 5791.7 (97.5 mL/kg) [P.O.:1080; I.V.:1265 (21.3 mL/kg); Blood:3446.7] Out: 700 (11.8 mL/kg) [Urine:700 (0.3 mL/kg/hr)] Weight: 59.4 kg Relevant Results Lab Results Component Value Date WBC 3.6 (L) 12/17/2024 HGB 8.3 (L) 12/17/2024 HCT 26.3 (L) 12/17/2024 MCV 82 12/17/2024 PLT 122 (L) 12/17/2024 Lab Results Component Value Date GLUCOSE 292 (H) 12/17/2024 CALCIUM 8.8 12/17/2024 NA 133 (L) 12/17/2024 K 5.2 12/17/2024 CO2 19 (L) 12/17/2024 CL 107 12/17/2024 BUN 69 (H) 12/17/2024 CREATININE 3.07 (H) 12/17/2024 amLODIPine, 10 mg, oral, Daily aspirin, 81 mg, oral, Daily atorvastatin, 40 mg, oral, Daily calcitriol, 0.25 mcg, oral, Daily calcium carbonate, 1 tablet, oral, BID carvedilol, 25 mg, oral, BID clotrimazole, 10 mg, Mouth/Throat, TID after meals [Held by provider] furosemide, 40 mg, oral, BID heparin (porcine), 5,000 Units, subcutaneous, q8h AMBER [Held by provider] insulin degludec, 10 Units, subcutaneous, q AM insulin glargine, 10 Units, subcutaneous, q24h insulin lispro, 0-5 Units, subcutaneous, TID AC insulin lispro, 7 Units, subcutaneous, TID AC mycophenolate, 360 mg, oral, q12h AMBER pantoprazole, 40 mg, oral, Daily before breakfast predniSONE, 5 mg, oral, Daily sulfamethoxazole-trimethoprim, 1 tablet, oral, Daily tacrolimus ER, 3 mg, oral, Daily tamsulosin, 0.4 mg, oral, Daily valGANciclovir, 450 mg, oral, Every other day Assessment & Plan Kidney allograft function Poor function, intermittently needing dialysis Immunosuppression Envarsus 3 daily On Lex (conversion dosing), dose 2 today Myfortic 360/360 Pred 5 PPX Valcyte, bactrim, Medical noncompliance Does not follow up and difficult manage outpatient Poorly controlled diabetes Better now inpatient I spent 35 minutes in the professional and overall care of this patient. Geovanna Brothers MD * Eduardo Cleary MD - 12/16/2024 2:38 PM EDT Thom Chapin is a 54 y.o. male on day 2 of admission presenting with JOSE R (acute kidney injury). No acute issues overnight. Pt without any complaints this AM. Fk level 50 12/15 AM, ?lab error Last HD 12/14. Nonoliguric. Scheduled medications amLODIPine, 10 mg, oral, Daily aspirin, 81 mg, oral, Daily atorvastatin, 40 mg, oral, Daily calcitriol, 0.25 mcg, oral, Daily calcium carbonate, 1 tablet, oral, BID carvedilol, 25 mg, oral, BID clotrimazole, 10 mg, Mouth/Throat, TID after meals [Held by provider] furosemide, 40 mg, oral, BID heparin (porcine), 5,000 Units, subcutaneous, q8h AMBER [Held by provider] insulin degludec, 10 Units, subcutaneous, q AM insulin glargine, 10 Units, subcutaneous, q24h insulin lispro, 0-5 Units, subcutaneous, TID AC insulin lispro, 5 Units, subcutaneous, TID AC insulin lispro, 7 Units, subcutaneous, TID AC mycophenolate, 360 mg, oral, q12h AMBER pantoprazole, 40 mg, oral, Daily before breakfast [START ON 12/17/2024] predniSONE, 5 mg, oral, Daily sulfamethoxazole-trimethoprim, 1 tablet, oral, Daily [START ON 12/17/2024] tacrolimus ER, 3 mg, oral, Daily tamsulosin, 0.4 mg, oral, Daily valGANciclovir, 450 mg, oral, Every other day Continuous medications PRN medications PRN medications: acetaminophen, hydrALAZINE Last Recorded Vitals Blood pressure 145/83, pulse 75, temperature 36 C (96.8 F), temperature source Temporal, resp. rate16, weight 60.6 kg (133 lb 9.6 oz), SpO2 100%. Intake/Output last 3 Shifts: I/O last 3 completed shifts: In: 7251.7 (119.7 mL/kg) [P.O.:2039; I.V.:1765 (29.1 mL/kg); Blood:3446.7] Out: 900 (14.9 mL/kg) [Urine:900 (0.4 mL/kg/hr)] Weight: 60.6 kg A&ox3, no distress, pleasant MMM, no lesions Lungs with equal air entry, no added sounds Rrr, no m/r/g Abd soft, nt, nd No allograft tenderness No edema b/l Results for orders placed or performed during the hospital encounter of 12/14/24 (from the past 24 hours) CBC and Auto Differential Result Value Ref Range WBC 4.5 4.4 - 11.3 x10*3/uL nRBC 0.0 0.0 - 0.0 /100 WBCs RBC 3.37 (L) 4.50 - 5.90 x10*6/uL Hemoglobin 8.9 (L) 13.5 - 17.5 g/dL Hematocrit 27.8 (L) 41.0 - 52.0 % MCV 83 80 - 100 fL MCH 26.4 26.0 - 34.0 pg MCHC 32.0 32.0 - 36.0 g/dL RDW 18.6 (H) 11.5 - 14.5 % Platelets 115 (L) 150 - 450 x10*3/uL Neutrophils % 75.8 40.0 - 80.0 % Immature Granulocytes %, Automated 0.4 0.0 - 0.9 % Lymphocytes % 15.9 13.0 - 44.0 % Monocytes % 6.1 2.0 - 10.0 % Eosinophils % 1.6 0.0 - 6.0 % Basophils % 0.2 0.0 - 2.0 % Neutrophils Absolute 3.38 1.20 - 7.70 x10*3/uL Immature Granulocytes Absolute, Automated 0.02 0.00 - 0.70 x10*3/uL Lymphocytes Absolute 0.71 (L) 1.20 - 4.80 x10*3/uL Monocytes Absolute 0.27 0.10 - 1.00 x10*3/uL Eosinophils Absolute 0.07 0.00 - 0.70 x10*3/uL Basophils Absolute 0.01 0.00 - 0.10 x10*3/uL Renal Function Panel Result Value Ref Range Glucose 250 (H) 74 - 99 mg/dL Sodium 133 (L) 136 - 145 mmol/L Potassium 4.5 3.5 - 5.3 mmol/L Chloride 105 98 - 107 mmol/L Bicarbonate 21 21 - 32 mmol/L Anion Gap 12 10 - 20 mmol/L Urea Nitrogen 78 (H) 6 - 23 mg/dL Creatinine 3.09 (H) 0.50 - 1.30 mg/dL eGFR 23 (L) >60 mL/min/1.73m*2 Calcium 8.8 8.6 - 10.6 mg/dL Phosphorus 4.2 2.5 - 4.9 mg/dL Albumin 3.0 (L) 3.4 - 5.0 g/dL Magnesium Result Value Ref Range Magnesium 1.83 1.60 - 2.40 mg/dL Tacrolimus Result Value Ref Range Tacrolimus 5.8 <=15.0 ng/mL POCT GLUCOSE Result Value Ref Range POCT Glucose 231 (H) 74 - 99 mg/dL POCT GLUCOSE Result Value Ref Range POCT Glucose 242 (H) 74 - 99 mg/dL POCT GLUCOSE Result Value Ref Range POCT Glucose 244 (H) 74 - 99 mg/dL POCT GLUCOSE Result Value Ref Range POCT Glucose 235 (H) 74 - 99 mg/dL Assessment & Plan 54 y.o. male with ESRD sec to DM1, on HD since 12/2015, s/p DDKT 10/15/24 (Dr. Brothers, KDPI 40%, PRA 22%, HCV -/-, CMV +/+, EBV +/+, HBV -/-, donor toxo neg; ATG 4.5 mg/kg induction, maintained on tac, MMF, pred). 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 Allograft function: - h/o DGF, still requiring HD intermittently. Last HD 12/14/24 with no UF. - last kidney bx 12/07/24 with ATN, no rejection. H/o borderline ACR 11/23/24 s/p steroid pulse. - nonoliguric per report. No hypervolemia on exam. UA 12/15 unremarkable. Renal US w/o obstruction - metabolic indices on labs this AM acceptable. 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 Will monitor daily. - Allosure, DSA 12/15 pending. Last DSA 11/19/24 neg. - HTN: Bps above goal. Monitor and titrate meds as indicated - Anemia: Hb 7.7 --> 8.9 s/p PRBC 12/15. On Aranesp weekly. Ferritin 3128 12/07/24 - CKD-MBD: Ca, phos acceptable. On Ca supplements, calcitriol 0.25 mcg/d. Check PTH with next labs - Avoid potential nephrotoxins. Dose meds for CrCl. maintain adequate hydration Immunosuppression: - On Envarsus 3m/g. Goal Fk 8-10. Fk 12/15 50 (?valid), 5.8 12/16. Cont Envarsus 3 mg/d - on belatacept 5 mg/kg q2 weeks, next dose duw 12/17/24 - Cont MPA 360 mg bid, reduce pred to 5 mg/d - Ppx: Bactrim, Mycelex troches, Valcyte (CMV +/+) DM: uncontrolled hyperglycemia - endocrine consulted Will follow. Eduardo Cleary MD * Leighann Yarbrough MD - 12/16/2024 9:08 AM EDT Thom Chapin is a 54 y.o. male on day 2 of admission presenting with JOSE R (acute kidney injury). Subjective This morning, Thom is doing well. He has no new complaints. Glucose is still a little high, though downtrending. I have reviewed histories, allergies and medications have been reviewed and there are no changes Objective Review of Systems Constitutional: Negative for appetite change and unexpected weight change. Gastrointestinal: Negative for abdominal pain, constipation, diarrhea, nausea and vomiting. Neurological: Negative for weakness and headaches. Physical Exam Constitutional: General: He is not in acute distress. Appearance: Normal appearance. Pulmonary: Effort: Pulmonary effort is normal. No respiratory distress. Abdominal: General: Abdomen is flat. There is no distension. Palpations: Abdomen is soft. Tenderness: There is no abdominal tenderness. Skin: General: Skin is warm and dry. Neurological: General: No focal deficit present. Mental Status: He is alert and oriented to person, place, and time. Last Recorded Vitals Blood pressure 153/90, pulse 74, temperature 36.8 C (98.2 F), temperature source Temporal, resp. rate 16, weight 60.6 kg (133 lb 9.6 oz), SpO2 100%. Intake/Output last 3 Shifts: I/O last 3 completed shifts: In: 9615.8 (158.7 mL/kg) [P.O.:1800; I.V.:2019.2 (33.3 mL/kg); Blood:3796.7; IV Piggyback:2000] Out: 350 (5.8 mL/kg) [Urine:350 (0.2 mL/kg/hr)] Weight: 60.6 kg Relevant Results Results from last 7 days Lab Units 12/16/24 1148 12/16/24 0826 12/16/24 0534 12/15/24 1912 12/15/24 1459 12/15/24 1117 12/15/24 1115 12/15/24 0811 12/15/24 0805 12/14/24 0644 12/13/24 1047 POCT GLUCOSE mg/dL 242* 231* -- 319* 261* 385* -- < > -- -- -- GLUCOSE mg/dL -- -- 250* -- -- -- 467* -- 469* 352* 200* < > = values in this interval not displayed. Scheduled medications Scheduled Medications[1] Continuous medications Continuous Medications[2] PRN medications PRN Medications[3] Assessment & Plan JOSE R (acute kidney injury) Assessment Thom Chapin is a 54 y.o. male with PMH significant for ESRD 2/2 T1DM who received a donor kidney transplant 10/31 presenting initially with ATN and borderline rejection of transplanted kidney. He was admitted to the transplant service for IV steroid pulse 11/23-11/30 and discharged for outpt HD treatment. He was then re-admitted 12/06 with hyperkalemia with EKG changes, diarrhea, and hyperglycemia with low bicarb. We were consulted for glucose control in the setting of steroid use. The patient is undergoing a steroid taper now on prednisone 10mg after previously being on 20mg, which may explain the low this morning. Patient's glucose is above range based on dex com data but controlled in the hospital, which encourages discussion with patient regarding understanding of condition, management, and medication compliance. CGM Interpretation: Patient has persistent hyperglycemia likely due to his steroid regimen, which means his insulin regimen will need to be intensified. Plan - Continue Glargine 10 units - Increase Lispro to 7 units for 12/16 afternoon and night - Go back to lispro 5u for 12/17 AM considering steroid dose reduction to 5mg. We will then reassess. - SSI#2 - Previously had follow up with endocrine December 16 with Simone. Simone will move him to a later date since he is admitted. This patient was discussed with endocrinology fellow Dr. Cameron and attending Dr. Valdes. Thank you for the consult. Please reach out if you have any further questions. We will be following. Leighann Yarbrough MD Internal Medicine PGY-1 [1] amLODIPine, 10 mg, oral, Daily aspirin, 81 mg, oral, Daily atorvastatin, 40 mg, oral, Daily calcitriol, 0.25 mcg, oral, Daily calcium carbonate, 1 tablet, oral, BID carvedilol, 25 mg, oral, BID clotrimazole, 10 mg, Mouth/Throat, TID after meals [Held by provider] furosemide, 40 mg, oral, BID heparin (porcine), 5,000 Units, subcutaneous, q8h AMBER [Held by provider] insulin degludec, 10 Units, subcutaneous, q AM insulin glargine, 10 Units, subcutaneous, q24h insulin lispro, 0-5 Units, subcutaneous, TID AC insulin lispro, 5 Units, subcutaneous, TID AC mycophenolate, 360 mg, oral, q12h AMBER pantoprazole, 40 mg, oral, Daily before breakfast [START ON 12/17/2024] predniSONE, 5 mg, oral, Daily sulfamethoxazole-trimethoprim, 1 tablet, oral, Daily tamsulosin, 0.4 mg, oral, Daily valGANciclovir, 450 mg, oral, Every other day [2] lactated Ringer's, 50 mL/hr, Last Rate: 50 mL/hr (12/16/24 0615) [3] PRN medications: acetaminophen, hydrALAZINE Cosigned by Yony Cameron MD at 12/16/2024 1:58 PM EDT * Patience Roach - 12/16/2024 8:49 AM EDT 12/16/24 0849 Rapid Rounds Attendance Provider;Nurse;Care Transitions Expected Discharge Disposition Home Today we still await: Clinical stability Review at Escalation Rounds No escalation needed Thom Chapin is a 54 y.o. male on day 1 of admission presenting with JOSE R (acute kidney injury). Plan per Medical/Surgical team: Pt enrolled in H@H. Waiting for PT/OT recs. Pt needs: TBD. 12/16: Home. No home going needs anticipated for this pt at this time. Discharge disposition: Home. No home going needs anticipated for this pt at this time. ADOD: 12/17 This TCC will continue to follow for home going needs and safe DC plan. PATIENCE ROACH * Geovanna Brothers MD - 12/16/2024 8:44 AM EDT Thom Chapin is a 54 y.o. male on day 2 of admission presenting with JOSE R (acute kidney injury). Subjective CATHY Objective Vitals: 12/16/24 0837 BP: (!) 174/96 Pulse: Resp: Temp: SpO2: Physical Exam Constitutional: Appearance: Normal appearance. Eyes: Pupils: Pupils are equal, round, and reactive to light. Cardiovascular: Rate and Rhythm: Normal rate. Pulmonary: Effort: Pulmonary effort is normal. No respiratory distress. Abdominal: General: There is no distension. Palpations: Abdomen is soft. Comments: Well healed Musculoskeletal: General: Normal range of motion. Right lower leg: No edema. Left lower leg: No edema. Skin: General: Skin is warm and dry. Neurological: General: No focal deficit present. Mental Status: He is alert and oriented to person, place, and time. Psychiatric: Mood and Affect: Mood normal. Behavior: Behavior normal. Last Recorded Vitals Blood pressure (!) 174/96, pulse 77, temperature 36.8 C (98.2 F), resp. rate 17, weight 60.6 kg (133 lb 9.6 oz), SpO2 100%. Intake/Output last 3 Shifts: I/O last 3 completed shifts: In: 9615.8 (158.7 mL/kg) [P.O.:1800; I.V.:2019.2 (33.3 mL/kg); Blood:3796.7; IV Piggyback:2000] Out: 350 (5.8 mL/kg) [Urine:350 (0.2 mL/kg/hr)] Weight: 60.6 kg Relevant Results Lab Results Component Value Date WBC 4.5 12/16/2024 HGB 8.9 (L) 12/16/2024 HCT 27.8 (L) 12/16/2024 MCV 83 12/16/2024 PLT 115 (L) 12/16/2024 Lab Results Component Value Date GLUCOSE 250 (H) 12/16/2024 CALCIUM 8.8 12/16/2024 NA 133 (L) 12/16/2024 K 4.5 12/16/2024 CO2 21 12/16/2024 CL 105 12/16/2024 BUN 78 (H) 12/16/2024 CREATININE 3.09 (H) 12/16/2024 amLODIPine, 10 mg, oral, Daily aspirin, 81 mg, oral, Daily atorvastatin, 40 mg, oral, Daily calcitriol, 0.25 mcg, oral, Daily calcium carbonate, 1 tablet, oral, BID carvedilol, 25 mg, oral, BID clotrimazole, 10 mg, Mouth/Throat, TID after meals [Held by provider] furosemide, 40 mg, oral, BID heparin (porcine), 5,000 Units, subcutaneous, q8h AMBER [Held by provider] insulin degludec, 10 Units, subcutaneous, q AM insulin glargine, 10 Units, subcutaneous, q24h insulin lispro, 0-5 Units, subcutaneous, TID AC insulin lispro, 5 Units, subcutaneous, TID AC mycophenolate, 360 mg, oral, q12h AMBER pantoprazole, 40 mg, oral, Daily before breakfast predniSONE, 10 mg, oral, Daily sulfamethoxazole-trimethoprim, 1 tablet, oral, Daily tacrolimus ER, 3 mg, oral, Daily tamsulosin, 0.4 mg, oral, Daily valGANciclovir, 450 mg, oral, Every other day Assessment & Plan JOSE R (acute kidney injury) Kidney allograft function Poor function, intermittently needing dialysis Immunosuppression Envarsus 3 daily, (Level 50!!), hold On Lex (conversion dosing) Myfortic 360/360 Pred 10, decrease to 5 PPX Valcyte, bactrim, Medical noncompliance Does not follow up and difficult manage outpatient Poorly controlled diabetes Better now inpatient I spent 35 minutes in the professional and overall care of this patient. Geovanna Brothers MD * Rhona Pierson PharmD - 12/15/2024 12:39 PM EDT Pharmacy Medication History Review Thom Chapin is a 54 y.o. male admitted for JOSE R (acute kidney injury). Pharmacy reviewed the patient's [id number] medications and allergies for accuracy. Medications ADDED: None Medications CHANGED: Multivitamin to Dialvite Medications REMOVED: None The list below reflects the updated DONATION WORKER list. Prior to Admission Medications Prescriptions Informant acetaminophen (Tylenol) 500 mg tablet Self Sig: Take 1 tablet (500 mg) by mouth every 6 hours if needed for mild pain (1 - 3). With daily Aspirin alcohol swabs (Alcohol Pads) Self Sig: Use 4-8 per day to check blood glucose and for injectable medications amLODIPine (Norvasc) 5 mg tablet Self Sig: Take 1 tablet (5 mg) by mouth once daily. aspirin 81 mg EC tablet Self Sig: Take 1 tablet (81 mg) by mouth once daily. atorvastatin (Lipitor) 40 mg tablet Self Sig: Take 1 tablet (40 mg) by mouth once daily. blood sugar diagnostic (Blood Glucose Test) Self Sig: Check blood glucose 4 time per day Patient taking differently: if needed. Check blood glucose 4 time per day blood-glucose meter misc Self Sig: Use to check blood glucose Patient taking differently: if needed. Use to check blood glucose blood-glucose sensor (Dexcom G7 Sensor) device Self Sig: Use to check glucose, change every 10 days calcitriol (Rocaltrol) 0.25 mcg capsule Self Sig: Take 1 capsule (0.25 mcg) by mouth once daily. calcium carbonate (Tums) 500 mg (200 mg elemental) chewable tablet Self Sig: Chew and swallow 1 tablet 2 times a day. carvedilol (Coreg) 25 mg tablet Self Sig: Take 1 tablet (25 mg) by mouth 2 times a day. cholecalciferol (Vitamin D-3) 50 mcg (2,000 units) capsule Self Sig: Take 1 capsule (50 mcg) by mouth early in the morning.. clotrimazole (Mycelex) 10 mg amanda Self Sig: Use 1 tablet (10 mg) in the mouth or throat 3 times a day after meals. dorzolamide-timoloL (Cosopt) 22.3-6.8 mg/mL ophthalmic solution Self Sig: Instill 1 drop in both eyes twice a day folic acid-vitamin B complex-vitamin E-azzzeztp-uxsp (Dialyvite) 3-70-15 mg-mcg-mg tablet Self Sig: Take 1 tablet by mouth once daily. furosemide (Lasix) 40 mg tablet Self Sig: Take 1 tablet (40 mg) by mouth 2 times daily (morning and late afternoon). glucagon 1 mg/0.2 mL solution Self Sig: Inject 1 mg under the skin if needed (use to treat hypoglycemia <55mg/dL which cannot be safely treated with food/drink). hydrALAZINE (Apresoline) 100 mg tablet Self Sig: Take 1 tablet (100 mg) by mouth 3 times a day as needed. insulin aspart (NovoLOG Flexpen U-100 Insulin) 100 unit/mL (3 mL) pen Self Sig: Inject 4 Units under the skin 3 times a day before meals. Inject 4 units for breakfast, lunch,and dinner. Check blood sugar & follow sliding scale. 0 unit(s) if Blood glucose is between 71-150; 1 unit(s) for 151-200; 2 unit(s) for 201-250; 3 unit(s) for 251-300; 4 unit(s) for 301-350; 5 unit(s) for 351-400 (up to 50 units/day) Patient taking differently: 5u AM , 4u PM , 4u HS insulin degludec (Tresiba FlexTouch) 100 unit/mL (3 mL) pen Self Sig: Inject 10 Units under the skin once daily in the morning. Take as directed per insulin instructions. lancets 33 gauge misc Self Sig: Use to test blood sugar four times a day Patient taking differently: 1 Box every 4 hours if needed. latanoprost (Xalatan) 0.005 % ophthalmic solution Self Sig: Administer 1 drop into affected eye(s) once daily at bedtime. mycophenolate (Myfortic) 180 mg EC tablet Self Sig: Take 2 tablets (360 mg) by mouth every 12 hours. pantoprazole (ProtoNix) 40 mg EC tablet Self Sig: Take 1 tablet (40 mg) by mouth once daily in the morning. Take before meals. Do not crush, chew, or split. pen needle, diabetic 31 gauge x 3/16 needle Self Si each 3 times a day. predniSONE (Deltasone) 5 mg tablet Self Sig: Take 2 tablets (10 mg) by mouth once daily. sildenafil (Viagra) 50 mg tablet Self Sig: Take 1 tablet (50 mg) by mouth if needed. sodium zirconium cyclosilicate (Lokelma) 10 gram packet Self Sig: Take 10 g by mouth once daily. sulfamethoxazole-trimethoprim (Bactrim) 400-80 mg tablet Self Sig: Take 1 tablet by mouth once daily. tacrolimus ER (Envarsus XR) 1 mg tablet ER Self Sig: Take 3 tablets (3 mg) by mouth once daily. tamsulosin (Flomax) 0.4 mg 24 hr capsule Self Sig: Take 1 capsule (0.4 mg) by mouth once daily. Do not crush, chew, or split. valGANciclovir (Valcyte) 450 mg tablet Self Sig: Take 1 tablet (450 mg) by mouth every other day. Do not crush or chew. Facility-Administered Medications: None The list below reflects the updated allergy list. Please review each documented allergy for additional clarification and justification. Allergies Reviewed by Sneha Arzate RN on 12/09/2024 No Known Allergies Patient declines M2B at discharge. Sources: [facility] Pharmacy dispense history Patient Interview Moderate historian Chart Review - Discharge summary 12/09 Additional Comments: None Rhona Pierson PharmD Transitions of Care Pharmacist 12/15/24 Secure Chat preferred If no response call [phone] or Flazio Rec * Patience Roach - 12/15/2024 8:10 AM EDT 12/15/24 0809 Rapid Rounds Attendance Provider;Care Transitions Expected Discharge Disposition Home Today we still await: Clinical stability Review at Escalation Rounds No escalation needed Thom Chapin is a 54 y.o. male on day 1 of admission presenting with JOSE R (acute kidney injury). Plan per Medical/Surgical team: Pt enrolled in H@H. Waiting for PT/OT recs. Pt needs: TBD. Discharge disposition: TBD ADOD: 12/17 This TCC will continue to follow for home going needs and safe DC plan. PATIENCE ROACH * Patience Roach - 12/15/2024 8:08 AM EDT 12/15/24 0806 Discharge Planning Living Arrangements Children Support Systems Children Assistance Needed None Type of Residence Private residence Home or Post Acute Services None Expected Discharge Disposition Home Does the patient need discharge transport arranged? Yes [employer] coordination needed? Yes Has discharge transport been arranged? No Financial Resource Strain How hard is it for you to pay for the very basics like food, housing, medical care, and heating? Not very Housing Stability In the last 12 months, was there a time when you were not able to pay the mortgage or rent on time?N Transportation Needs In the past 12 months, has lack of transportation kept you from medical appointments or from getting medications? no DC Planning: Went in and met with the pt, confirmed demographics. This TCC will continue to follow for home going needs and safe DC plan. Patience Roach. NO. TCC. documented in this [facility] Work Phone: [phone] Miscellaneous Notes* Care Plan - Nona Knutson RN - 12/21/2024 8:01 AM EDT Problem: Pain - Adult Goal: Verbalizes/displays adequate comfort level or baseline comfort level Outcome: Progressing Problem: Safety - Adult Goal: Free from fall injury Outcome: Progressing Problem: Chronic Conditions and Co-morbidities Goal: Patient's chronic conditions and co-morbidity symptoms are monitored and maintained or improved Outcome: Progressing Problem: Fall/Injury Goal: Not fall by end of shift Outcome: Progressing Goal: Be free from injury by end of the shift Outcome: Progressing Goal: Verbalize understanding of personal risk factors for fall in the hospital Outcome: Progressing Goal: Verbalize understanding of risk factor reduction measures to prevent injury from fall in the home Outcome: Progressing Goal: Use assistive devices by end of the shift Outcome: Progressing Goal: Pace activities to prevent fatigue by end of the shift Outcome: Progressing Problem: Diabetes Goal: Achieve decreasing blood glucose levels by end of shift Outcome: Progressing Goal: Increase stability of blood glucose readings by end of shift Outcome: Progressing Goal: Decrease in ketones present in urine by end of shift Outcome: Progressing Goal: Maintain electrolyte levels within acceptable range throughout shift Outcome: Progressing Goal: Maintain glucose levels >70mg/dl to <250mg/dl throughout shift Outcome: Progressing Goal: No changes in neurological exam by end of shift Outcome: Progressing Goal: Learn about and adhere to nutrition recommendations by end of shift Outcome: Progressing Goal: Vital signs within normal range for age by end of shift Outcome: Progressing Goal: Increase self care and/or family involovement by end of shift Outcome: Progressing Goal: Receive DSME education by end of shift Outcome: Progressing The patient's goals for the shift include adequate pain control. The clinical goals for the shift include pt will remain HDS throughout shift * Care Plan - Ariel Potter RN - 12/20/2024 10:00 AM EDT The patient's goals for the shift include pt will remain comfortable throughout shift The clinical goals for the shift include pt will remain HDS throughout shift Problem: Pain - Adult Goal: Verbalizes/displays adequate comfort level or baseline comfort level Outcome: Progressing Problem: Safety - Adult Goal: Free from fall injury Outcome: Progressing Problem: Chronic Conditions and Co-morbidities Goal: Patient's chronic conditions and co-morbidity symptoms are monitored and maintained or improved Outcome: Progressing Problem: Fall/Injury Goal: Be free from injury by end of the shift Outcome: Progressing * Care Plan - Darrian Martinez RN - 12/20/2024 3:14 AM EDT The clinical goals for the shift include patient will remain safe and vital signs stable. Problem: Safety - Adult Goal: Free from fall injury Outcome: Progressing Problem: Discharge Planning Goal: Discharge to home or other facility with appropriate resources Outcome: Progressing Problem: Chronic Conditions and Co-morbidities Goal: Patient's chronic conditions and co-morbidity symptoms are monitored and maintained or improved Outcome: Progressing Problem: Fall/Injury Goal: Not fall by end of shift Outcome: Progressing Goal: Be free from injury by end of the shift Outcome: Progressing Goal: Verbalize understanding of personal risk factors for fall in the hospital Outcome: Progressing Goal: Verbalize understanding of risk factor reduction measures to prevent injury from fall in the home Outcome: Progressing Goal: Use assistive devices by end of the shift Outcome: Progressing Goal: Pace activities to prevent fatigue by end of the shift Outcome: Progressing * Annette Tripp - Jasper Morin RN - 12/19/2024 10:58 AM EDT The patient's goals for the shift include The clinical goals for the shift include remain hds Problem: Pain - Adult Goal: Verbalizes/displays adequate comfort level or baseline comfort level Outcome: Progressing Problem: Safety - Adult Goal: Free from fall injury Outcome: Progressing Problem: Discharge Planning Goal: Discharge to home or other facility with appropriate resources Outcome: Progressing Problem: Chronic Conditions and Co-morbidities Goal: Patient's chronic conditions and co-morbidity symptoms are monitored and maintained or improved Outcome: Progressing Problem: Nutrition Goal: Nutrient intake appropriate for maintaining nutritional needs Outcome: Progressing Problem: Fall/Injury Goal: Not fall by end of shift Outcome: Progressing Goal: Be free from injury by end of the shift Outcome: Progressing Goal: Verbalize understanding of personal risk factors for fall in the hospital Outcome: Progressing Goal: Verbalize understanding of risk factor reduction measures to prevent injury from fall in the home Outcome: Progressing Goal: Use assistive devices by end of the shift Outcome: Progressing Goal: Pace activities to prevent fatigue by end of the shift Outcome: Progressing Problem: Diabetes Goal: Achieve decreasing blood glucose levels by end of shift Outcome: Progressing Goal: Increase stability of blood glucose readings by end of shift Outcome: Progressing Goal: Decrease in ketones present in urine by end of shift Outcome: Progressing Goal: Maintain electrolyte levels within acceptable range throughout shift Outcome: Progressing Goal: Maintain glucose levels >70mg/dl to <250mg/dl throughout shift Outcome: Progressing Goal: No changes in neurological exam by end of shift Outcome: Progressing Goal: Learn about and adhere to nutrition recommendations by end of shift Outcome: Progressing Goal: Vital signs within normal range for age by end of shift Outcome: Progressing Goal: Increase self care and/or family involovement by end of shift Outcome: Progressing Goal: Receive DSME education by end of shift Outcome: Progressing * Annette Tripp - Darrian Martinez RN - 12/19/2024 12:51 AM EDT The clinical goals for the shift include patient will remain safe and vital signs stable. Problem: Safety - Adult Goal: Free from fall injury Outcome: Progressing Problem: Chronic Conditions and Co-morbidities Goal: Patient's chronic conditions and co-morbidity symptoms are monitored and maintained or improved Outcome: Progressing Problem: Fall/Injury Goal: Not fall by end of shift Outcome: Progressing Goal: Be free from injury by end of the shift Outcome: Progressing Goal: Verbalize understanding of personal risk factors for fall in the hospital Outcome: Progressing Goal: Verbalize understanding of risk factor reduction measures to prevent injury from fall in the home Outcome: Progressing Goal: Use assistive devices by end of the shift Outcome: Progressing Goal: Pace activities to prevent fatigue by end of the shift Outcome: Progressing * Annette Tripp - Jasper Morin RN - 12/18/2024 10:33 AM EDT The patient's goals for the shift include The clinical goals for the shift include remain hds Problem: Pain - Adult Goal: Verbalizes/displays adequate comfort level or baseline comfort level 12/18/2024 1033 by Jasper Morin RN Outcome: Progressing 12/18/2024 1033 by Jasper Morin RN Outcome: Progressing Problem: Safety - Adult Goal: Free from fall injury 12/18/2024 1033 by Jasper Morin RN Outcome: Progressing 12/18/2024 1033 by Jasper Morin RN Outcome: Progressing Problem: Discharge Planning Goal: Discharge to home or other facility with appropriate resources 12/18/2024 1033 by Jasper Morin RN Outcome: Progressing 12/18/2024 1033 by Jasper Morin RN Outcome: Progressing Problem: Chronic Conditions and Co-morbidities Goal: Patient's chronic conditions and co-morbidity symptoms are monitored and maintained or improved 12/18/2024 1033 by Jasper Morin RN Outcome: Progressing 12/18/2024 1033 by Jasper Morin RN Outcome: Progressing Problem: Nutrition Goal: Nutrient intake appropriate for maintaining nutritional needs 12/18/2024 1033 by Jasper Morni RN Outcome: Progressing 12/18/2024 1033 by Jasper Morin RN Outcome: Progressing Problem: Fall/Injury Goal: Not fall by end of shift 12/18/2024 1033 by Jasper Morin RN Outcome: Progressing 12/18/2024 1033 by Jasper Morin RN Outcome: Progressing Goal: Be free from injury by end of the shift 12/18/2024 1033 by Jasper Morin RN Outcome: Progressing 12/18/2024 1033 by Jasper Morin RN Outcome: Progressing Goal: Verbalize understanding of personal risk factors for fall in the hospital 12/18/2024 1033 by Jasper Morin RN Outcome: Progressing 12/18/2024 1033 by Jasper Morin RN Outcome: Progressing Goal: Verbalize understanding of risk factor reduction measures to prevent injury from fall in the home 12/18/2024 1033 by Jasper Morin RN Outcome: Progressing 12/18/2024 1033 by Jasper Morin RN Outcome: Progressing Goal: Use assistive devices by end of the shift 12/18/2024 1033 by Jasper Morin RN Outcome: Progressing 12/18/2024 1033 by Jasper Morin RN Outcome: Progressing Goal: Pace activities to prevent fatigue by end of the shift 12/18/2024 1033 by Jasper Morin RN Outcome: Progressing 12/18/2024 1033 by Jasper Morin RN Outcome: Progressing Problem: Diabetes Goal: Achieve decreasing blood glucose levels by end of shift 12/18/2024 1033 by Jasper Morin RN Outcome: Progressing 12/18/2024 1033 by Jasper Morin RN Outcome: Progressing Goal: Increase stability of blood glucose readings by end of shift 12/18/2024 1033 by Jasper Morin RN Outcome: Progressing 12/18/2024 1033 by Jasper Morin RN Outcome: Progressing Goal: Decrease in ketones present in urine by end of shift 12/18/2024 1033 by Jasper Morin RN Outcome: Progressing 12/18/2024 1033 by Jasper Morin RN Outcome: Progressing Goal: Maintain electrolyte levels within acceptable range throughout shift 12/18/2024 1033 by Jasper Morin RN Outcome: Progressing 12/18/2024 1033 by Jasper Morin RN Outcome: Progressing Goal: Maintain glucose levels >70mg/dl to <250mg/dl throughout shift 12/18/2024 1033 by Jasper Morin RN Outcome: Progressing 12/18/2024 1033 by Jasper Morin RN Outcome: Progressing Goal: No changes in neurological exam by end of shift 12/18/2024 1033 by Jasper Morin RN Outcome: Progressing 12/18/2024 1033 by Jasper Morin RN Outcome: Progressing Goal: Learn about and adhere to nutrition recommendations by end of shift 12/18/2024 1033 by Jasper Morin RN Outcome: Progressing 12/18/2024 1033 by Jasper Morin RN Outcome: Progressing Goal: Vital signs within normal range for age by end of shift 12/18/2024 1033 by Jasper Morin RN Outcome: Progressing 12/18/2024 1033 by Jasper Morin RN Outcome: Progressing Goal: Increase self care and/or family involovement by end of shift 12/18/2024 1033 by Jasper Morin RN Outcome: Progressing 12/18/2024 1033 by Jasper Morin RN Outcome: Progressing Goal: Receive DSME education by end of shift 12/18/2024 1033 by Jasper Morin RN Outcome: Progressing 12/18/2024 1033 by Jasper Morin RN Outcome: Progressing * Care Plan - Aidan Patton RN - 12/18/2024 12:10 AM EDT The patient's goals for the shift include rest Problem: Pain - Adult Goal: Verbalizes/displays adequate comfort level or baseline comfort level Outcome: Progressing Problem: Safety - Adult Goal: Free from fall injury Outcome: Progressing Problem: Fall/Injury Goal: Not fall by end of shift Outcome: Progressing Goal: Be free from injury by end of the shift Outcome: Progressing Goal: Verbalize understanding of personal risk factors for fall in the hospital Outcome: Progressing Goal: Verbalize understanding of risk factor reduction measures to prevent injury from fall in the home Outcome: Progressing Goal: Use assistive devices by end of the shift Outcome: Progressing Goal: Pace activities to prevent fatigue by end of the shift Outcome: Progressing The clinical goals for the shift include Patient will remain HDS throughout shift * Care Plan - Jasper Morin RN - 12/17/2024 11:53 AM EDT The patient's goals for the shift include The clinical goals for the shift include remain hds Problem: Pain - Adult Goal: Verbalizes/displays adequate comfort level or baseline comfort level Outcome: Progressing Problem: Safety - Adult Goal: Free from fall injury Outcome: Progressing Problem: Discharge Planning Goal: Discharge to home or other facility with appropriate resources Outcome: Progressing Problem: Chronic Conditions and Co-morbidities Goal: Patient's chronic conditions and co-morbidity symptoms are monitored and maintained or improved Outcome: Progressing Problem: Nutrition Goal: Nutrient intake appropriate for maintaining nutritional needs Outcome: Progressing Problem: Fall/Injury Goal: Not fall by end of shift Outcome: Progressing Goal: Be free from injury by end of the shift Outcome: Progressing Goal: Verbalize understanding of personal risk factors for fall in the hospital Outcome: Progressing Goal: Verbalize understanding of risk factor reduction measures to prevent injury from fall in the home Outcome: Progressing Goal: Use assistive devices by end of the shift Outcome: Progressing Goal: Pace activities to prevent fatigue by end of the shift Outcome: Progressing Problem: Diabetes Goal: Achieve decreasing blood glucose levels by end of shift Outcome: Progressing Goal: Increase stability of blood glucose readings by end of shift Outcome: Progressing Goal: Decrease in ketones present in urine by end of shift Outcome: Progressing Goal: Maintain electrolyte levels within acceptable range throughout shift Outcome: Progressing Goal: Maintain glucose levels >70mg/dl to <250mg/dl throughout shift Outcome: Progressing Goal: No changes in neurological exam by end of shift Outcome: Progressing Goal: Learn about and adhere to nutrition recommendations by end of shift Outcome: Progressing Goal: Vital signs within normal range for age by end of shift Outcome: Progressing Goal: Increase self care and/or family involovement by end of shift Outcome: Progressing Goal: Receive DSME education by end of shift Outcome: Progressing * Care Plan - Aidan Patton RN - 12/17/2024 12:58 AM EDT The patient's goals for the shift include rest The clinical goals for the shift include Pt will remain HDS throughout shift Problem: Pain - Adult Goal: Verbalizes/displays adequate comfort level or baseline comfort level Outcome: Progressing Problem: Safety - Adult Goal: Free from fall injury Outcome: Progressing Problem: Discharge Planning Goal: Discharge to home or other facility with appropriate resources Outcome: Progressing Problem: Chronic Conditions and Co-morbidities Goal: Patient's chronic conditions and co-morbidity symptoms are monitored and maintained or improved Outcome: Progressing Problem: Fall/Injury Goal: Not fall by end of shift Outcome: Progressing Goal: Be free from injury by end of the shift Outcome: Progressing Goal: Verbalize understanding of personal risk factors for fall in the hospital Outcome: Progressing Goal: Verbalize understanding of risk factor reduction measures to prevent injury from fall in the home Outcome: Progressing Goal: Use assistive devices by end of the shift Outcome: Progressing Goal: Pace activities to prevent fatigue by end of the shift Outcome: Progressing * Care Plan - Paloma Macedo RN - 12/16/2024 10:57 AM EDT Problem: Pain - Adult Goal: Verbalizes/displays adequate comfort level or baseline comfort level Outcome: Progressing Problem: Safety - Adult Goal: Free from fall injury Outcome: Progressing Problem: Discharge Planning Goal: Discharge to home or other facility with appropriate resources Outcome: Progressing Problem: Chronic Conditions and Co-morbidities Goal: Patient's chronic conditions and co-morbidity symptoms are monitored and maintained or improved Outcome: Progressing Problem: Nutrition Goal: Nutrient intake appropriate for maintaining nutritional needs Outcome: Progressing Problem: Fall/Injury Goal: Not fall by end of shift Outcome: Progressing Goal: Be free from injury by end of the shift Outcome: Progressing Goal: Verbalize understanding of personal risk factors for fall in the hospital Outcome: Progressing Goal: Verbalize understanding of risk factor reduction measures to prevent injury from fall in the home Outcome: Progressing Goal: Use assistive devices by end of the shift Outcome: Progressing Goal: Pace activities to prevent fatigue by end of the shift Outcome: Progressing Problem: Diabetes Goal: Achieve decreasing blood glucose levels by end of shift Outcome: Progressing Goal: Increase stability of blood glucose readings by end of shift Outcome: Progressing Goal: Decrease in ketones present in urine by end of shift Outcome: Progressing Goal: Maintain electrolyte levels within acceptable range throughout shift Outcome: Progressing Goal: Maintain glucose levels >70mg/dl to <250mg/dl throughout shift Outcome: Progressing Goal: No changes in neurological exam by end of shift Outcome: Progressing Goal: Learn about and adhere to nutrition recommendations by end of shift Outcome: Progressing Goal: Vital signs within normal range for age by end of shift Outcome: Progressing Goal: Increase self care and/or family involovement by end of shift Outcome: Progressing Goal: Receive DSME education by end of shift Outcome: Progressing The clinical goals for the shift include pt will remian HDS * Care Plan - Jaquelin Lundberg RN - 12/15/2024 7:56 PM EDT The patient's goals for the shift include pain control. The clinical goals for the shift include pt will remain HDS during shift. Problem: Pain - Adult Goal: Verbalizes/displays adequate comfort level or baseline comfort level Outcome: Progressing Problem: Safety - Adult Goal: Free from fall injury Outcome: Progressing Problem: Discharge Planning Goal: Discharge to home or other facility with appropriate resources Outcome: Progressing Problem: Chronic Conditions and Co-morbidities Goal: Patient's chronic conditions and co-morbidity symptoms are monitored and maintained or improved Outcome: Progressing Problem: Nutrition Goal: Nutrient intake appropriate for maintaining nutritional needs Outcome: Progressing Problem: Fall/Injury Goal: Not fall by end of shift Outcome: Progressing Goal: Be free from injury by end of the shift Outcome: Progressing Goal: Verbalize understanding of personal risk factors for fall in the hospital Outcome: Progressing Goal: Verbalize understanding of risk factor reduction measures to prevent injury from fall in the home Outcome: Progressing Goal: Use assistive devices by end of the shift Outcome: Progressing Goal: Pace activities to prevent fatigue by end of the shift Outcome: Progressing Problem: Diabetes Goal: Achieve decreasing blood glucose levels by end of shift Outcome: Progressing Goal: Increase stability of blood glucose readings by end of shift Outcome: Progressing Goal: Decrease in ketones present in urine by end of shift Outcome: Progressing Goal: Maintain electrolyte levels within acceptable range throughout shift Outcome: Progressing Goal: Maintain glucose levels >70mg/dl to <250mg/dl throughout shift Outcome: Progressing Goal: No changes in neurological exam by end of shift Outcome: Progressing Goal: Learn about and adhere to nutrition recommendations by end of shift Outcome: Progressing Goal: Vital signs within normal range for age by end of shift Outcome: Progressing Goal: Increase self care and/or family involovement by end of shift Outcome: Progressing Goal: Receive DSME education by end of shift Outcome: Progressing * Care Plan - Jaquelin Lundberg RN - 12/14/2024 8:12 PM EDT The patient's goals for the shift include figure out what's going on with kidney. The clinical goals for the shift include pt will remain HDS during shift. Problem: Pain - Adult Goal: Verbalizes/displays adequate comfort level or baseline comfort level Outcome: Progressing Problem: Safety - Adult Goal: Free from fall injury Outcome: Progressing Problem: Discharge Planning Goal: Discharge to home or other facility with appropriate resources Outcome: Progressing Problem: Chronic Conditions and Co-morbidities Goal: Patient's chronic conditions and co-morbidity symptoms are monitored and maintained or improved Outcome: Progressing Problem: Nutrition Goal: Nutrient intake appropriate for maintaining nutritional needs Outcome: Progressing Problem: Fall/Injury Goal: Not fall by end of shift Outcome: Progressing Goal: Be free from injury by end of the shift Outcome: Progressing Goal: Verbalize understanding of personal risk factors for fall in the hospital Outcome: Progressing Goal: Verbalize understanding of risk factor reduction measures to prevent injury from fall in the home Outcome: Progressing Goal: Use assistive devices by end of the shift Outcome: Progressing Goal: Pace activities to prevent fatigue by end of the shift Outcome: Progressing Problem: Diabetes Goal: Achieve decreasing blood glucose levels by end of shift Outcome: Progressing Goal: Increase stability of blood glucose readings by end of shift Outcome: Progressing Goal: Decrease in ketones present in urine by end of shift Outcome: Progressing Goal: Maintain electrolyte levels within acceptable range throughout shift Outcome: Progressing Goal: Maintain glucose levels >70mg/dl to <250mg/dl throughout shift Outcome: Progressing Goal: No changes in neurological exam by end of shift Outcome: Progressing Goal: Learn about and adhere to nutrition recommendations by end of shift Outcome: Progressing Goal: Vital signs within normal range for age by end of shift Outcome: Progressing Goal: Increase self care and/or family involovement by end of shift Outcome: Progressing Goal: Receive DSME education by end of shift Outcome: Progressing documented in this [facility] Work Phone: [phone] Consult note* Marjorie Lui RDN, LD - 12/20/2024 4:05 PM EDTAssociated Order(s): IP CONSULT TO NUTRITION SERVICES Nutrition Diet Education: Nutrition Assessment Reason for Assessment: Provider consult order Patient is a 54 y.o. male on day 6 of admission presenting with JOSE R Education Documentation Nutrition Related Education, taught by Marjorie Lui RDN, JUAN at 12/20/2024 4:02 PM. Learner: Patient Readiness: Acceptance Method: Handout Response: Verbalizes Understanding Comment: Provided pt with handout with foods that were high and low in potassium. Encouraged pt to choose the foods lower in potassium. Pt had no further questions at this time and is aware of the diet. Time Spent (min): 15 minutes * Eduardo Cleary MD - 12/15/2024 2:08 PM EDT Reason For Consult S/p DDKT History Of Present Illness Thom Chapin is a 54 y.o. male with ESRD sec to DM1, on HD since 12/2015, s/p DDKT 10/15/24 (Dr. Brothers, KDPI 40%, PRA 22%, HCV -/-, CMV +/+, EBV +/+, HBV -/-, donor toxo neg; ATG 4.5 mg/kg induction, maintained on tac, MMF, pred). Post-txp course notable for urinary retention requiring indwelling [place] (now removed), h/o DGF, admission 11/2024 for borderline ACR on bx 11/23/24 s/p IV steroid pulse andRRT prn (last HD 11/30/24), re-admitted 12/06-12/09 with azotemia, hyperkalemia requiring HD (12/07/24), rpt bx 12/07/24 with ATN, no e/o rejection who is currently admitted for further eval after HD 12/14/24 (as outpt) for worsening renal function parameters, acidosis. Recently with uncontrolled hyperglycemia. UA w/o sediment. Renal US unremarkable. Pt c/o intermittent diarrhea but otherwise denies any other complaints. Tolerated HD w/o UF 12/14 via LUE AVF. Blood sugars remain elevated. Urine ketones neg. Currently on Envarsus 3 mg/d, MPA 360 mg bid, pred 5 mg/d. ROS neg otherwise. Past Medical History He has a past medical history of CKD (chronic kidney disease) stage 4, GFR 15-29 ml/min (Multi), Diabetes mellitus (Multi), Diabetes mellitus type I (Multi), ESRD (end stage renal disease) (Multi), Hyperlipidemia, and Hypertension. He has no past medical history of Malignant hyperthermia or PONV (postoperative nausea and vomiting). Surgical History He has a past surgical history that includes Toe amputation (Right, 2016); Cardiac catheterization (N/A, 12/08/2023); and transplant, kidney, open. Social History He reports that he has quit smoking. His smoking use included cigarettes. He started smoking about 11 years ago. He has never used smokeless tobacco. He reports that he does not currently use alcohol. He reports current drug use. Drug: Marijuana. Family History Family History[1] Allergies Patient has no known allergies. Scheduled medications amLODIPine, 10 mg, oral, Daily aspirin, 81 mg, oral, Daily atorvastatin, 40 mg, oral, Daily calcitriol, 0.25 mcg, oral, Daily calcium carbonate, 1 tablet, oral, BID carvedilol, 25 mg, oral, BID clotrimazole, 10 mg, Mouth/Throat, TID after meals [Held by provider] furosemide, 40 mg, oral, BID heparin (porcine), 5,000 Units, subcutaneous, q8h AMBER [Held by provider] insulin degludec, 10 Units, subcutaneous, q AM insulin glargine, 8 Units, subcutaneous, q24h insulin lispro, 0-5 Units, subcutaneous, TID AC insulin lispro, 4 Units, subcutaneous, TID AC mycophenolate, 360 mg, oral, q12h AMBER pantoprazole, 40 mg, oral, Daily before breakfast predniSONE, 10 mg, oral, Daily sulfamethoxazole-trimethoprim, 1 tablet, oral, Daily tacrolimus ER, 3 mg, oral, Daily tamsulosin, 0.4 mg, oral, Daily valGANciclovir, 450 mg, oral, Every other day Continuous medications lactated Ringer's, 50 mL/hr, Last Rate: 50 mL/hr (12/15/24 1730) PRN medications PRN medications: acetaminophen, hydrALAZINE Physical Exam Last Recorded Vitals Blood pressure 166/88, pulse 77, temperature 36.9 C (98.4 F), temperature source Temporal, resp. rate 18, weight 59.7 kg (131 lb 11.2 oz), SpO2 99%. A&ox3, no distress, pleasant MMM, no lesions Lungs with equal air entry, no added sounds Rrr, no m/r/g Abd soft, nt, nd No allograft tenderness No edema b/l LUE AVF patent with palpable bruit, thrill Results for orders placed or performed during the hospital encounter of 12/14/24 (from the past 24 hours) CBC Result Value Ref Range WBC 4.2 (L) 4.4 - 11.3 x10*3/uL nRBC 0.0 0.0 - 0.0 /100 WBCs RBC 2.80 (L) 4.50 - 5.90 x10*6/uL Hemoglobin 7.2 (L) 13.5 - 17.5 g/dL Hematocrit 22.9 (L) 41.0 - 52.0 % MCV 82 80 - 100 fL MCH 25.7 (L) 26.0 - 34.0 pg MCHC 31.4 (L) 32.0 - 36.0 g/dL RDW 18.5 (H) 11.5 - 14.5 % Platelets 72 (L) 150 - 450 x10*3/uL Renal Function Panel Result Value Ref Range Glucose 469 (HH) 74 - 99 mg/dL Sodium 131 (L) 136 - 145 mmol/L Potassium 5.2 3.5 - 5.3 mmol/L Chloride 100 98 - 107 mmol/L Bicarbonate 22 21 - 32 mmol/L Anion Gap 14 10 - 20 mmol/L Urea Nitrogen 70 (H) 6 - 23 mg/dL Creatinine 2.98 (H) 0.50 - 1.30 mg/dL eGFR 24 (L) >60 mL/min/1.73m*2 Calcium 8.4 (L) 8.6 - 10.6 mg/dL Phosphorus 5.1 (H) 2.5 - 4.9 mg/dL Albumin 3.2 (L) 3.4 - 5.0 g/dL Magnesium Result Value Ref Range Magnesium 1.84 1.60 - 2.40 mg/dL POCT GLUCOSE Result Value Ref Range POCT Glucose 414 (H) 74 - 99 mg/dL Prepare RBC: 1 Units Result Value Ref Range PRODUCT CODE [id number] Unit Number [id number] Unit ABO O Unit RH POS XM INTEP COMP Dispense Status IS Blood Expiration Date 12/16/2024 11:59:00 PM EDT PRODUCT BLOOD TYPE 5100 UNIT VOLUME 280 CBC and Auto Differential Result Value Ref Range WBC 4.3 (L) 4.4 - 11.3 x10*3/uL nRBC 0.0 0.0 - 0.0 /100 WBCs RBC 3.04 (L) 4.50 - 5.90 x10*6/uL Hemoglobin 7.7 (L) 13.5 - 17.5 g/dL Hematocrit 24.6 (L) 41.0 - 52.0 % MCV 81 80 - 100 fL MCH 25.3 (L) 26.0 - 34.0 pg MCHC 31.3 (L) 32.0 - 36.0 g/dL RDW 18.5 (H) 11.5 - 14.5 % Platelets 100 (L) 150 - 450 x10*3/uL Neutrophils % 87.1 40.0 - 80.0 % Immature Granulocytes %, Automated 0.7 0.0 - 0.9 % Lymphocytes % 6.5 13.0 - 44.0 % Monocytes % 4.6 2.0 - 10.0 % Eosinophils % 0.9 0.0 - 6.0 % Basophils % 0.2 0.0 - 2.0 % Neutrophils Absolute 3.76 1.20 - 7.70 x10*3/uL Immature Granulocytes Absolute, Automated 0.03 0.00 - 0.70 x10*3/uL Lymphocytes Absolute 0.28 (L) 1.20 - 4.80 x10*3/uL Monocytes Absolute 0.20 0.10 - 1.00 x10*3/uL Eosinophils Absolute 0.04 0.00 - 0.70 x10*3/uL Basophils Absolute 0.01 0.00 - 0.10 x10*3/uL Renal Function Panel Result Value Ref Range Glucose 467 (HH) 74 - 99 mg/dL Sodium 132 (L) 136 - 145 mmol/L Potassium 4.0 3.5 - 5.3 mmol/L Chloride 100 98 - 107 mmol/L Bicarbonate 22 21 - 32 mmol/L Anion Gap 14 10 - 20 mmol/L Urea Nitrogen 73 (H) 6 - 23 mg/dL Creatinine 3.26 (H) 0.50 - 1.30 mg/dL eGFR 21 (L) >60 mL/min/1.73m*2 Calcium 8.6 8.6 - 10.6 mg/dL Phosphorus 4.6 2.5 - 4.9 mg/dL Albumin 3.1 (L) 3.4 - 5.0 g/dL Magnesium Result Value Ref Range Magnesium 1.78 1.60 - 2.40 mg/dL Tacrolimus Result Value Ref Range Tacrolimus 50.1 (HH) <=15.0 ng/mL POCT GLUCOSE Result Value Ref Range POCT Glucose 385 (H) 74 - 99 mg/dL Urinalysis with Reflex Culture and Microscopic Result Value Ref Range Color, Urine Light-Yellow Light-Yellow, Yellow, Dark-Yellow Appearance, Urine Clear Clear Specific [place], Urine 1.015 1.005 - 1.035 pH, Urine 6.5 5.0, 5.5, 6.0, 6.5, 7.0, 7.5, 8.0 Protein, Urine 20 (TRACE) NEGATIVE, 10 (TRACE), 20 (TRACE) mg/dL Glucose, Urine OVER (4+) (A) Normal mg/dL Blood, Urine NEGATIVE NEGATIVE mg/dL Ketones, Urine NEGATIVE NEGATIVE mg/dL Bilirubin, Urine NEGATIVE NEGATIVE mg/dL Urobilinogen, Urine Normal Normal mg/dL Nitrite, Urine NEGATIVE NEGATIVE Leukocyte Esterase, Urine NEGATIVE NEGATIVE Urinalysis Microscopic Result Value Ref Range WBC, Urine 1-5 1-5, NONE /HPF RBC, Urine 1-2 NONE, 1-2, 3-5 /HPF Hyaline Casts, Urine OCCASIONAL (A) NONE /LPF POCT GLUCOSE Result Value Ref Range POCT Glucose 261 (H) 74 - 99 mg/dL POCT GLUCOSE Result Value Ref Range POCT Glucose 319 (H) 74 - 99 mg/dL Renal US: 12/14/24 Unremarkable ultrasound and Doppler evaluation of the transplant kidney as detailed above. Resistive indices appear within normal limits. No perinephric fluid collections. Kidney bx: 11/23/24 -- DIFFUSE ACUTE TUBULAR INJURY -- CHANGES SUSPICIOUS (BORDERLINE) FOR ACUTE T CELL-MEDIATED REJECTION -- MILD ARTERIOLAR HYALINOSIS AND SEVERE ARTERIOSCLEROSIS -- LOW GRADE IgA MESANGIAL DEPOSITS BY IMMUNOFLUORESCENCE (SEE COMMENT) Kidney bx: 12/07/24 -- DIFFUSE ACUTE TUBULAR INJURY -- MILD INTERSTITIAL INFLAMMATION AND MILD TUBULITIS -- MILD ARTERIOLAR HYALINOSIS AND MODERATE ARTERIOSCLEROSIS -- LOW GRADE MESANGIAL IgA DEPOSITS (SEE COMMENT) Assessment/Plan 54 y.o. male with ESRD sec to DM1, on HD since 12/2015, s/p DDKT 10/15/24 (Dr. Brothers, KDPI 40%, PRA 22%, HCV -/-, CMV +/+, EBV +/+, HBV -/-, donor toxo neg; ATG 4.5 mg/kg induction, maintained on tac, MMF, pred). 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 Allograft function: - h/o DGF, still requiring HD intermittently. Last HD 12/14/24 with no UF. - last kidney bx 12/07/24 with ATN, no rejection - nonoliguric per report. No hypervolemia on exam. UA 12/15 unremarkable. Renal US w/o obstruction - metabolic indices on labs this AM acceptable. 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 Will monitor daily. - Check Allosure, DSA with next labs. Last DSA 11/19/24 neg. - HTN: Bps above goal. Monitor and titrate meds as indicated - Anemia: Hb 7.7, below goal. On Aranesp weekly. Ferritin 3128 12/07/24 - CKD-MBD: Ca, phos acceptable. On Ca supplements, calcitriol 0.25 mcg/d. Check PTH with next labs - Avoid potential nephrotoxins. Dose meds for CrCl. maintain adequate hydration Immunosuppression: - On Envarsus 3m/g. Goal Fk 8-10. Last level 4.8 (?true trough) - Cont MPA 360 mg bid, pred taper protocol - Ppx: Bactrim, Mycelex troches, Valcyte (CMV +/+) DM: uncontrolled hyperglycemia - endocrine consulted Will follow I spent 60 minutes in the professional and overall care of this patient. Eduardo Cleary MD [1] Family History Problem Relation Name Age of Onset Diabetes Mother Diabetes Maternal Grandmother documented in this [facility] Work Phone: [phone]) 690-254107-09-2025 History and physical note* Tan Isbell MD - 12/15/2024 1:00 AM EDT Images from the original note were not included. Transplant Surgery History and Physical Subjective Chief Complaint/Reason for Admission: Elevated Cr/BUN on outpatient labs. HPI: Mr. Chapin is a 54 y.o. male with past medical history significant for ESRD secondary to type 1 diabetes whom received a donor kidney transplant on 10/15/24 KDPI of 40% and PRA of 22%. Donor was Hepc - / - and has not met risk factors. EBV +/+. Right donor kidney transplanted to patient right pelvis. Dry weight is 65 kg . Pt received a total of 4.5 mg/kg total of thymoglobulin induction therapy in conjunction with 500mg IV solumedrol. Pt was initiated on Tacrolimus & Cellcept immunosuppression in conjunction with IV solumedrol taper. Pt was started on valcyte (CMV D + / R + ) and bactrim for CMV & PCP prophylaxis per protocol. He was started on clotrimazole as antifungal coverage per protocol. Operative course was uncomplicated. Hospital course was uncomplicated. Pt with DGF and had a kidney biopsy done on 11/23/24, showed ATN and borderline rejection. He was admitted for IV steroid pulse. Then discharged on outpt HD. Last treatment was on 11/30/24. Then dialysis has been held given down trending Cr. Noted K from lab on 12/02 was 6 (mild hemolysis). Additionally, patient recently admitted overnight 12/06 for diarrhea and EKG of 7. Patient was discharged 12/09after a kidney biopsy and dialysis. Patient is presenting today for elevated Cr & BUN on outpatient labs. He has no other symptoms or complaints. He endorses intermittent diarrhea exacerbated by consuming certain foods. His urine output has remained the same. Denies nausea, vomiting, shortness of breath, vision changes, headaches, chest pain, abdominal pain, dysuria, constipation, numbness and tingling in the extremities. A 12-point ROS was performed and was unremarkable except as above. PMH: Medical History[1] PSH: Surgical History[2] Soc Hx: Social History Socioeconomic History Marital status: Single Spouse name: Not on file Number of children: Not on file Years of education: Not on file Highest education level: Not on file Occupational History Not on file Tobacco Use Smoking status: Former Types: Cigarettes Start date: 2013 Smokeless tobacco: Never Substance and Sexual Activity Alcohol use: Not Currently Drug use: Yes Types: Marijuana Sexual activity: Not on file Other Topics Concern Not on file Social History Narrative Not on file Social Drivers of Health Financial Resource Strain: Patient Declined (12/14/2024) Overall Financial Resource Strain (CARDIA) Difficulty of Paying Living Expenses: Patient declined Food Insecurity: Patient Declined (12/14/2024) Hunger Vital Sign Worried About Running Out of Food in the Last Year: Patient declined Ran Out of Food in the Last Year: Patient declined Transportation Needs: Patient Declined (12/14/2024) PRAPARE - Transportation Lack of Transportation (Medical): Patient declined Lack of Transportation (Non-Medical): Patient declined Physical Activity: Patient Declined (12/07/2024) Exercise Vital Sign Days of Exercise per Week: Patient declined Minutes of Exercise per Session: Patient declined Stress: No Stress Concern Present (12/07/2024) [place] [employer] - Occupational Stress Questionnaire Feeling of Stress : Not at all Social Connections: Patient Unable To Answer (12/07/2024) Social Connection and Isolation Panel [NHANES] Frequency of Communication with Friends and Family: Patient unable to answer Frequency of Social Gatherings with Friends and Family: Patient unable to answer Attends Anabaptism Services: Patient unable to answer Active Member of Clubs or Organizations: Patient unable to answer Attends Club or Organization Meetings: Patient unable to answer Marital Status: Patient unable to answer Intimate Partner Violence: Patient Declined (12/14/2024) Humiliation, Afraid, Rape, and Kick questionnaire Fear of Current or Ex-Partner: Patient declined Emotionally Abused: Patient declined Physically Abused: Patient declined Sexually Abused: Patient declined Housing Stability: Patient Declined (12/14/2024) Housing Stability Vital Sign Unable to Pay for Housing in the Last Year: Patient declined Number of Times Moved in the Last Year: 1 Homeless in the Last Year: Patient declined Fam Hx: Family History[3] Allergies: RX Allergies[4] Current Medications: Medications Ordered Prior to Encounter[5] Objective Vitals: Visit Vitals BP (!) 162/95 (BP Location: Right arm, Patient Position: Lying) Comment: nurse informed Pulse 79 Temp 36.9 C (98.4 F) (Temporal) Resp 18 Physical Exam: GEN: No acute distress. Alert, awake and conversant. HEENT: Sclera anicteric. Moist mucous membranes. RESP: Breathing non-labored, equal chest rise. On RA. CV: Regular rate, normotensive GI: Abdomen soft, nondistended, nontender. : Voiding spontaneously. MSK: No gross deformities. Moves all extremities spontaneously. NEURO: Alert and oriented x3. No focal deficits. PSYCH: Appropriate mood and affect. SKIN: No rashes or lesions. Labs within past 24h: Results for orders placed or performed during the hospital encounter of 12/14/24 (from the past 24 hours) Type and screen Result Value Ref Range ABO TYPE B Rh TYPE POS ANTIBODY SCREEN NEG Imaging within past 24h: Imaging US kidney transplant Result Date: 12/14/2024 Unremarkable ultrasound and Doppler evaluation of the transplant kidney as detailed above. Resistive indices appear within normal limits. No perinephric fluid collections. I personally reviewed the images/study and I agree with the findings as stated by Patrick Ng MD. [facility], [place], [place]. MACRO: None Dictation workstation:[id number] Cardiology, Vascular, and Other Imaging No other imaging results found for the past 2 days I have reviewed the imaging above as it pertains to the patient's surgical concerns and agree with the radiologist's interpretation. ASSESSMENT Mr. Chapin is a 54 y.o. male with past medical history significant for ESRD secondary to type 1 diabetes whom received a donor kidney transplant on 10/15/24 KDPI of 40% and PRA of 22%. Patientis presenting today for elevated Cr/BUN and lowered hgb on outpatient labs. Patient is stable at this time. PLAN: - Kidney U/S - 1Unit PRBC - AM labs - Maintenance IVF - Regular diet - Continue all home meds, including immunosuppression regimen. - DVT ppx w/ SQH Discussed with Dr. Brothers. 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 Prior NSTEMI/PCI (2019). Currently asymptomatic. Patient available any day of the week. Please call to schedule (via [employer] if needed). TOE AMPUTATION Right 2015 TRANSPLANT, KIDNEY, OPEN 10/2024 [3] Family History Problem Relation Name Age of Onset Diabetes Mother Diabetes Maternal Grandmother [4] No Known Allergies [5] Current Facility-Administered Medications on File Prior to Encounter Medication Dose Route Frequency Provider Last Rate Last Admin [COMPLETED] darbepoetin yuri (Aranesp) injection 60 mcg 60 mcg subcutaneous Once Janeth Valencia MD 60 mcg at 12/14/24 0815 Current Outpatient Medications on File Prior to Encounter Medication Sig Dispense Refill acetaminophen (Tylenol) 500 mg tablet Take 1 tablet (500 mg) by mouth every 6 hours if needed for mild pain (1 - 3). With daily Aspirin alcohol swabs (Alcohol Pads) Use 4-8 per day to check blood glucose and for injectable medications 400 each 3 amLODIPine (Norvasc) 5 mg tablet Take 1 tablet (5 mg) by mouth once daily. 30 tablet 0 aspirin 81 mg EC tablet Take 1 tablet (81 mg) by mouth once daily. 30 tablet 3 atorvastatin (Lipitor) 40 mg tablet Take 1 tablet (40 mg) by mouth once daily. blood sugar diagnostic (Blood Glucose Test) Check blood glucose 4 time per day (Patient taking differently: if needed. Check blood glucose 4 time per day) 100 each 0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 monitor Hgb PRBC 12/07/24 Hgb 6.8 4. Electrolyte Lab Results Component Value Date GLUCOSE 115 (H) 12/08/2024 CALCIUM 7.7 (L) 12/08/2024 NA 137 12/08/2024 K 4.0 12/08/2024 CO2 24 12/08/2024 CL 105 12/08/2024 BUN 56 (H) 12/08/2024 CREATININE 3.11 (H) 12/08/2024 Lab Results Component Value Date CALCIUM 7.7 (L) 12/08/2024 CAION 1.08 (L) 10/21/2024 PHOS 3.8 12/08/2024 VITD25 68 10/15/2024 - Reviewed renal profile. 6. Hypertension Blood Pressures 12/07/2024 1845 12/07/2024 2038 12/08/2024 0035 12/08/2024 0407 12/08/2024 0815 BP: 147/70 99/58 102/43 149/81 164/93 -Goal BP < 140/90 mmHg -continue current management 7. ID prophylaxis Per protocol 8. GI prophylaxis - On PPI 9. DVT Prophylaxis -Defer to primary team * Case was discussed with primary team. For questions, please contact transplant nephrology [place] x [phone] Mariaa Dwyer MD Transplant Lead Nurse [1] No Known Allergies * Dalton Delgado - 12/07/2024 12:46 AM EDT Pharmacy Medication History Review Thom Chapin is a 54 y.o. male admitted for Hyperkalemia. Pharmacy reviewed the patient's sogxy-rt-winwlqmmp medications and allergies for accuracy. Medications ADDED: None Medications CHANGED: None Medications REMOVED: None The list below reflects the updated DONATION WORKER list. Prior to Admission Medications Prescriptions Last Dose Informant acetaminophen (Tylenol) 500 mg tablet 12/06/2024 Self Sig: Take 1 tablet (500 mg) by mouth every 6 hours if needed for mild pain (1 - 3). With daily Aspirin alcohol swabs (Alcohol Pads) Unknown Self Sig: Use 4-8 per day to check blood glucose and for injectable medications amLODIPine (Norvasc) 5 mg tablet 12/06/2024 Morning Self Sig: Take 1 tablet (5 mg) by mouth once daily. aspirin 81 mg EC tablet 12/06/2024 Morning Self Sig: Take 1 tablet (81 mg) by mouth once daily. atorvastatin (Lipitor) 40 mg tablet 12/06/2024 Morning Self Sig: Take 1 tablet (40 mg) by mouth once daily. blood sugar diagnostic (Blood Glucose Test) Unknown Self Sig: Check blood glucose 4 time per day Patient taking differently: if needed. Check blood glucose 4 time per day blood-glucose meter misc Unknown Self Sig: Use to check blood glucose Patient taking differently: if needed. Use to check blood glucose blood-glucose sensor (ubitus G7 Sensor) device Unknown Self Sig: Use to check glucose, change every 10 days calcitriol (Rocaltrol) 0.25 mcg capsule 12/06/2024 Morning Self Sig: Take 1 capsule (0.25 mcg) by mouth once daily. carvedilol (Coreg) 25 mg tablet 12/06/2024 Morning Self Sig: Take 1 tablet (25 mg) by mouth 2 times a day. cholecalciferol (Vitamin D-3) 50 mcg (2,000 units) capsule 12/06/2024 Morning Self Sig: Take 1 capsule (50 mcg) by mouth early in the morning.. clotrimazole (Mycelex) 10 mg amanda Not Taking Self Sig: Use 1 tablet (10 mg) in the mouth or throat 3 times a day after meals. Patient not taking: Reported on 12/07/2024 dorzolamide-timoloL (Cosopt) 22.3-6.8 mg/mL ophthalmic solution 12/06/2024 Morning Self Sig: Instill 1 drop in both eyes twice a day furosemide (Lasix) 40 mg tablet 12/06/2024 Morning Self Sig: Take 1 tablet (40 mg) by mouth once daily. glucagon 1 mg/0.2 mL solution Unknown Self Sig: Inject 1 mg under the skin if needed (use to treat hypoglycemia <55mg/dL which cannot be safely treated with food/drink). hydrALAZINE (Apresoline) 100 mg tablet 12/06/2024 Morning Self Sig: Take 1 tablet (100 mg) by mouth 3 times a day as needed. insulin aspart (NovoLOG Flexpen U-100 Insulin) 100 unit/mL (3 mL) pen 12/06/2024 Self Sig: Inject 4 Units under the skin 3 times a day before meals. Inject 4 units for breakfast, lunch,and dinner. Check blood sugar & follow sliding scale. 0 unit(s) if Blood glucose is between 71-150; 1 unit(s) for 151-200; 2 unit(s) for 201-250; 3 unit(s) for 251-300; 4 unit(s) for 301-350; 5 unit(s) for 351-400 (up to 50 units/day) Patient taking differently: Inject under the skin. Inject 4 units for breakfast, lunch, and dinner.Check blood sugar & follow sliding scale. 0 unit(s) if Blood glucose is between 71-150; 1 unit(s) for 151-200; 2 unit(s) for 201-250; 3 unit(s) for 251-300; 4 unit(s) for 301-350; 5 unit(s) for 351-400 (up to 50 units/day) insulin glargine-yfgn 100 unit/mL (3 mL) pen 12/06/2024 Morning Self Sig: Inject 8 Units under the skin once daily in the morning. Take as directed per insulin instructions. Patient taking differently: Inject 10 Units under the skin once daily in the morning. Take as directed per insulin instructions. lancets 33 gauge misc Unknown Self Sig: Use to test blood sugar four times a day Patient taking differently: 1 Box every 4 hours if needed. latanoprost (Xalatan) 0.005 % ophthalmic solution 12/05/2024 Evening Self Sig: Administer 1 drop into affected eye(s) once daily at bedtime. metoprolol tartrate (Lopressor) 25 mg tablet 12/06/2024 Morning Self Sig: Take 1 tablet (25 mg) by mouth 2 times a day. multivitamin tablet 12/06/2024 Self Sig: Take 1 tablet by mouth once daily. mycophenolate (Cellcept) 250 mg capsule 12/06/2024 Morning Self Sig: Take 3 capsules (750 mg) by mouth every 12 hours. pantoprazole (ProtoNix) 40 mg EC tablet 12/06/2024 Self Sig: Take 1 tablet (40 mg) by mouth once daily in the morning. Take before meals. Do not crush, chew, or split. predniSONE (Deltasone) 5 mg tablet 12/06/2024 Self Sig: Take 4 tablets (20 mg) by mouth once daily. sildenafil (Viagra) 50 mg tablet Self Sig: Take 1 tablet (50 mg) by mouth if needed. sodium zirconium cyclosilicate (Lokelma) 10 gram packet 12/06/2024 Morning Self Sig: Take 10 g by mouth once daily. sulfamethoxazole-trimethoprim (Bactrim) 400-80 mg tablet 12/06/2024 Morning Self Sig: Take 1 tablet by mouth once daily. tacrolimus ER (Envarsus XR) 1 mg tablet ER 12/06/2024 Morning Self Sig: Take 3 tablets (3 mg) by mouth once daily. tamsulosin (Flomax) 0.4 mg 24 hr capsule 12/06/2024 Self Sig: Take 1 capsule (0.4 mg) by mouth once daily. Do not crush, chew, or split. valGANciclovir (Valcyte) 450 mg tablet 12/06/2024 Morning Self Sig: Take 1 tablet (450 mg) by mouth every other day. Do not crush or chew. Facility-Administered Medications: None The list below reflects the updated allergy list. Please review each documented allergy for additional clarification and justification. Allergies Reviewed by Dalton Delgado on 12/07/2024 No Known Allergies Patient accepts M2B at discharge. Sources: Chart review Epic dispense history Epic allergy list OARRS ( YES ) Patient interview Additional Comments: Patient knows medication name dose and frequency OARRS 10/19/2024 TRAMADOL 50 MG DS: 5 QTY: 15 Dalton Delgado Trip Rider 12/07/24 Secure Chat preferred If no response call [phone] or [employer] Rec Cosigned by Deion Díaz RPh at 12/07/2024 6:38 AM EDT Associated attestation - Deion Díaz [facility] - 12/07/2024 6:38 AM EDT Metoprolol Tartrate was incorrectly re-added to DONATION WORKER Med List; This was marked stopped taking (replaced by carvedilol) per 10/21/24 Discharge Summary. It has been removed from DONATION WORKER Med List. [facility] Phone: [phone] [phone] Plan of care note* Care Plan - Shaina Fleming RN - 12/09/2024 2:09 PM EDT The patient's goals for the shift include unknown The clinical goals for the shift include patient will remain HDS throughout this shift Problem: Pain - Adult Goal: Verbalizes/displays adequate comfort level or baseline comfort level Outcome: Progressing Problem: Safety - Adult Goal: Free from fall injury Outcome: Progressing Problem: Discharge Planning Goal: Discharge to home or other facility with appropriate resources Outcome: Progressing Problem: Chronic Conditions and Co-morbidities Goal: Patient's chronic conditions and co-morbidity symptoms are monitored and maintained or improved Outcome: Progressing Problem: Nutrition Goal: Nutrient intake appropriate for maintaining nutritional needs Outcome: Progressing [facility]07-03-2025 Miscellaneous Notes* Care Plan - Shaina Fleming RN - 12/09/2024 2:09 PM EDT The patient's goals for the shift include unknown The clinical goals for the shift include patient will remain HDS throughout this shift Problem: Pain - Adult Goal: Verbalizes/displays adequate comfort level or baseline comfort level Outcome: Progressing Problem: Safety - Adult Goal: Free from fall injury Outcome: Progressing Problem: Discharge Planning Goal: Discharge to home or other facility with appropriate resources Outcome: Progressing Problem: Chronic Conditions and Co-morbidities Goal: Patient's chronic conditions and co-morbidity symptoms are monitored and maintained or improved Outcome: Progressing Problem: Nutrition Goal: Nutrient intake appropriate for maintaining nutritional needs Outcome: Progressing * Hospital Course - Ambrosio Brothers MD - 12/09/2024 1:26 PM EDT Thom Chapin is a 54 y.o. male, s/p DDKT on 10/15/2024 for ESRD on iHD 2/2 HTN and T1DM, post-op has been c/b DGF (last dialyzed on 11/30) and TCMR, now s/p steroid pulse of 500/250/250 (11/24-), who presents to ED per installation coordinator for concerns of elevated BUN and K on labs on 12/06.He had received blood for anemia, and underwent dialysis for hyperkalemia. At time of discharge, his potassium improved to within normal range. Endocrinology was consulted for glucose management. He underwent kidney biopsy on 12/07/24. Pending final pathology result at time of discharge. He additionally underwent ureteral stent removal in OR on 12/09/24. He recovered appropriately postop. Patient is d ischarged on 12/09/24. Upon discharge, patient is tolerating a diet, denies pain, nausea, or vomiting, vital signs are stable, and remains afebrile. * Op Note - Geovanna Brothers MD - 12/09/2024 1:15 PM EDT CYSTOSCOPY, WITH URETERAL STENT REMOVAL Operative Note Date: 12/09/2024 OR Location: [facility] OR Name: Thom Chapin, : 1970, Age: 54 y.o., , Sex: male Diagnosis Pre-op Diagnosis * Kidney replaced by transplant ([facility]) [Z94.0] Post-op Diagnosis * Kidney replaced by transplant ([facility]) [Z94.0] Procedures CYSTOSCOPY, WITH URETERAL STENT REMOVAL 26059 - ID CYSTO W/SIMPLE REMOVAL STONE & STENT Surgeons * Geovanna Brothers - Primary Resident/Fellow/Other Heavy Mobile Equipment Repairer: Surgeons and Role: * Dinah Miller MD - Resident - Assisting Staff: Churn Driller: Linn Scrub Person: Avelino Scrub Person: Mary Hallub: [facility] Churn Driller: [facility] Anesthesia Staff: Anesthesiologist: Deion Bateman MD C-AA: TAMIR Garcia Procedure Summary Anesthesia: Monitor Anesthesia Care ASA: III Estimated Blood Loss: 0 mL Intra-op Medications: Administrations occurring from 1151 to 1241 on 12/09/24: Medication Name Total Dose acetaminophen (Tylenol) tablet 650 mg Cannot be calculated amLODIPine (Norvasc) tablet 5 mg Cannot be calculated aspirin EC tablet 81 mg Cannot be calculated atorvastatin (Lipitor) tablet 40 mg Cannot be calculated calcitriol (Rocaltrol) capsule 0.25 mcg Cannot be calculated calcium carbonate (Tums) 500 mg (200 mg elemental) chewable tablet 1 tablet Cannot be calculated carvedilol (Coreg) tablet 25 mg Cannot be calculated clotrimazole (Mycelex) amanda 10 mg Cannot be calculated darbepoetin yuri (Aranesp) injection 100 mcg Cannot be calculated dextrose 50 % injection 12.5 g Cannot be calculated dextrose 50 % injection 25 g Cannot be calculated furosemide (Lasix) tablet 80 mg Cannot be calculated glucagon (Glucagen) injection 1 mg Cannot be calculated glucagon (Glucagen) injection 1 mg Cannot be calculated glucagon (Glucagen) injection 1 mg Cannot be calculated heparin (porcine) injection 5,000 Units Cannot be calculated insulin glargine (Lantus) injection 10 Units Cannot be calculated insulin lispro injection 0-5 Units Cannot be calculated insulin lispro injection 4 Units Cannot be calculated loperamide (Imodium) capsule 2 mg Cannot be calculated mycophenolate (Myfortic) EC tablet 360 mg Cannot be calculated predniSONE (Deltasone) tablet 10 mg Cannot be calculated tacrolimus ER (Envarsus XR) tablet ER 3 mg Cannot be calculated tamsulosin (Flomax) 24 hr capsule 0.4 mg Cannot be calculated valGANciclovir (Valcyte) tablet 450 mg Cannot be calculated dextrose 50 % injection 12.5 g Cannot be calculated Anesthesia Record Intraprocedure I/O Totals Intake NaCl 0.9 % bolus 250.00 mL Total Intake 250 mL Output Est. Blood Loss 0 mL Total Output 0 mL Net Net Volume 250 mL Indications: Thom Chapin is an 54 y.o. male who is having surgery for stent removal The patient was seen in the preoperative area. The risks, benefits, complications, treatment options, non-operative alternatives, expected recovery and outcomes were discussed with the patient. The possibilities of reaction to medication, pulmonary aspiration, injury to surrounding structures, bleeding, recurrent infection, the need for additional procedures, failure to diagnose a condition, and creating a complication requiring transfusion or operation were discussed with the patient. The patient concurred with the proposed plan, giving informed consent. The site of surgery was properly noted/marked if necessary per policy. The patient has been actively warmed in preoperative area. Preopera tive antibiotics not indicated. Venous thrombosis prophylaxis have been ordered including bilateralsequential compression devices Procedure Details: The patient was placed on the OR table in supine position. After pre-operative huddle and time out,MAC anesthesia was induced. The patient is prepped and draped in the usual sterile fashion. A flexible cystoscope was introduced to the bladder under direct visualization. The bladder mucosa appearednormal. The ureteroneocystostomy anastomosis appeared normal. The ureteral stent was visualized andgrasped with grasper and removed in one piece. Bladder was emptied with a red rubber catheter. All counts were correct. I was present for the entire procedure. Evidence of Infection: No Complications: None; patient tolerated the procedure well. Disposition: PACU - hemodynamically stable. Condition: stable Geovanna Brothers * Brief Op Note - Dinah Miller MD - 12/09/2024 1:15 PM EDT Date: 12/09/2024 OR Location: [facility] OR Name: Thom Chapin, : 1970, Age: 54 y.o., , Sex: male Diagnosis Pre-op Diagnosis * Kidney replaced by transplant ([facility]) [Z94.0] Post-op Diagnosis * Kidney replaced by transplant ([facility]) [Z94.0] Procedures CYSTOSCOPY, WITH URETERAL STENT REMOVAL 14201 - ID CYSTO W/SIMPLE REMOVAL [facility]ENT Surgeons * Geovanna Brothers - Primary Resident/Fellow/Other Heavy Mobile Equipment Repairer: Surgeons and Role: * Dinah Miller MD - Resident - Assisting Staff: Churn Driller: Linn Hallub Person: Avelino Scrub Person: Mary Fitzgerald Scrub: [facility] Churn Driller: [facility] Anesthesia Staff: Anesthesiologist: Deion Bateman MD C-AA: TAMIR Garcia Procedure Summary Anesthesia: Monitor Anesthesia Care ASA: III Estimated Blood Loss: 0mL Intra-op Medications: Administrations occurring from 1151 to 1241 on 12/09/24: Medication Name Total Dose acetaminophen (Tylenol) tablet 650 mg Cannot be calculated amLODIPine (Norvasc) tablet 5 mg Cannot be calculated aspirin EC tablet 81 mg Cannot be calculated atorvastatin (Lipitor) tablet 40 mg Cannot be calculated calcitriol (Rocaltrol) capsule 0.25 mcg Cannot be calculated calcium carbonate (Tums) 500 mg (200 mg elemental) chewable tablet 1 tablet Cannot be calculated carvedilol (Coreg) tablet 25 mg Cannot be calculated clotrimazole (Mycelex) amanda 10 mg Cannot be calculated darbepoetin yuri (Aranesp) injection 100 mcg Cannot be calculated dextrose 50 % injection 12.5 g Cannot be calculated dextrose 50 % injection 12.5 g Cannot be calculated dextrose 50 % injection 25 g Cannot be calculated furosemide (Lasix) tablet 80 mg Cannot be calculated glucagon (Glucagen) injection 1 mg Cannot be calculated glucagon (Glucagen) injection 1 mg Cannot be calculated glucagon (Glucagen) injection 1 mg Cannot be calculated heparin (porcine) injection 5,000 Units Cannot be calculated insulin glargine (Lantus) injection 10 Units Cannot be calculated insulin lispro injection 0-5 Units Cannot be calculated insulin lispro injection 4 Units Cannot be calculated loperamide (Imodium) capsule 2 mg Cannot be calculated mycophenolate (Myfortic) EC tablet 360 mg Cannot be calculated predniSONE (Deltasone) tablet 10 mg Cannot be calculated tacrolimus ER (Envarsus XR) tablet ER 3 mg Cannot be calculated tamsulosin (Flomax) 24 hr capsule 0.4 mg Cannot be calculated valGANciclovir (Valcyte) tablet 450 mg Cannot be calculated Anesthesia Record Intraprocedure I/O Totals Intake NaCl 0.9 % bolus 250.00 mL Total Intake 250 mL Specimen: No specimens collected Findings: ureteral stent removed intact. Complications: None; patient tolerated the procedure well. Disposition: PACU - hemodynamically stable. Condition: stable Specimens Collected: No specimens collected Attending Attestation: Geovanna Brothers Cosigned by Geovanna Brothers MD at 12/09/2024 2:49 PM EDT * Care Plan - Ashleigh Ram RN - 12/08/2024 1:49 PM EDT The patient's goals for the shift include unknown The clinical goals for the shift include Patient will remain HDS throughout shift Over the shift, the patient did make progress toward the following goals. Problem: Pain - Adult Goal: Verbalizes/displays adequate comfort level or baseline comfort level Outcome: Progressing Flowsheets (Taken 12/08/20241344) Verbalizes/displays adequate comfort level or baseline comfort level: Encourage patient to monitor pain and request assistance Assess pain using appropriate pain scale Problem: Safety - Adult Goal: Free from fall injury Outcome: Progressing Flowsheets (Taken 12/08/2024 134) Free from fall injury: Instruct family/caregiver on patient safety Problem: Discharge Planning Goal: Discharge to home or other facility with appropriate resources Outcome: Progressing Flowsheets (Taken 12/08/2024 134) Discharge to home or other facility with appropriate resources: Identify barriers to discharge with patient and caregiver Arrange for needed discharge resources and transportation as appropriate Problem: Chronic Conditions and Co-morbidities Goal: Patient's chronic conditions and co-morbidity symptoms are monitored and maintained or improved Outcome: Progressing Flowsheets (Taken 12/08/2024 134) Care Plan - Patient's Chronic Conditions and Co-Morbidity Symptoms are Monitored and Maintained or Improved: Monitor and assess patient's chronic conditions and comorbid symptoms for stability, deterioration,or improvement Collaborate with multidisciplinary team to address chronic and comorbid conditions and prevent exacerbation or deterioration * Care Plan - Finn Jenkins RN - 12/08/2024 2:55 AM EDT Problem: Pain - Adult Goal: Verbalizes/displays adequate comfort level or baseline comfort level Outcome: Progressing Problem: Safety - Adult Goal: Free from fall injury Outcome: Progressing The patient's goals for the shift include adequate sleep The clinical goals for the shift include patient will remain HDS throughout this shift Over the shift, the patient did make progress toward the above goals. * Care Plan - Shaina Fleming RN - 12/07/2024 2:35 PM EDT The patient's goals for the shift include unknown The clinical goals for the shift include patient will remain HDS throughout this shift Problem: Pain - Adult Goal: Verbalizes/displays adequate comfort level or baseline comfort level Outcome: Progressing Problem: Safety - Adult Goal: Free from fall injury Outcome: Progressing Problem: Discharge Planning Goal: Discharge to home or other facility with appropriate resources Outcome: Progressing Problem: Chronic Conditions and Co-morbidities Goal: Patient's chronic conditions and co-morbidity symptoms are monitored and maintained or improved Outcome: Progressing Problem: Nutrition Goal: Nutrient intake appropriate for maintaining nutritional needs Outcome: Progressing * Post-Procedure Note - Babak Mike MD - 12/07/2024 1:27 PM EDT Interventional Radiology Brief Postprocedure Note Attending: Apollo Garcia MD Heavy Mobile Equipment Repairer: Babak Mike MD Diagnosis: increasing creatinine Description of procedure: image guided biopsy of right transplant kidney Anesthesia: Local and MAC Moderate Complications: None Estimated Blood Loss: minimal Medications As of 12/07/24 1328 amLODIPine (Norvasc) tablet 5 mg (mg) Total dose: 5 mg Dosing weight: 56.8 Date/Time Rate/Dose/Volume Action 12/07/24 08 5 mg Given aspirin EC tablet 81 mg (mg) Total dose: 81 mg Dosing weight: 56.8 Date/Time Rate/Dose/Volume Action 12/07/24823 81 mg Given atorvastatin (Lipitor) tablet 40 mg (mg) Total dose: 40 mg Dosing weight: 56.8 Date/Time Rate/Dose/Volume Action 12/07/24823 40 mg Given calcitriol (Rocaltrol) capsule 0.25 mcg (mcg) Total dose: 0.25 mcg Dosing weight: 56.8 Date/Time Rate/Dose/Volume Action 12/07/24 0824 0.25 mcg Given carvedilol (Coreg) tablet 25 mg (mg) Total dose: 50 mg Dosing weight: 56.8 Date/Time Rate/Dose/Volume Action 12/07/24 0025 25 mg Given 0824 25 mg Given insulin glargine (Lantus) injection 10 Units (Units) Total dose: 0 Units* Dosing weight: 56.8 *Administration not included in total Date/Time Rate/Dose/Volume Action 12/07/24 0826 *10 Units Missed sodium zirconium cyclosilicate (Lokelma) packet 10 g (g) Total dose: 0 g* Dosing weight: 56.8 *Administration not included in total Date/Time Rate/Dose/Volume Action 12/07/24823 *10 g Missed tacrolimus ER (Envarsus XR) tablet ER 3 mg (mg) Total dose: 3 mg Dosing weight: 56.8 Date/Time Rate/Dose/Volume Action 12/07/24 0834 3 mg Given tamsulosin (Flomax) 24 hr capsule 0.4 mg (mg) Total dose: 0.4 mg Dosing weight: 56.8 Date/Time Rate/Dose/Volume Action 12/07/24 0824 0.4 mg Given valGANciclovir (Valcyte) tablet 450 mg (mg) Total dose: 450 mg Dosing weight: 56.8 Date/Time Rate/Dose/Volume Action 12/07/2424 450 mg Given tacrolimus (Prograf) capsule 2 mg (mg) Total dose: 2 mg Dosing weight: 56.8 Date/Time Rate/Dose/Volume Action 12/07/24 0025 2 mg Given insulin lispro injection 0-5 Units (Units) Total dose: 3 Units Dosing weight: 56.8 Date/Time Rate/Dose/Volume Action 12/07/24 0025 3 Units Given 0457 *Not included in total Missed 0816 *Not included in total Missed 1212 *Not included in total Missed predniSONE (Deltasone) tablet 10 mg (mg) Total dose: 10 mg Dosing weight: 56.8 Date/Time Rate/Dose/Volume Action 12/07/24 0824 10 mg Given mycophenolate (Myfortic) EC tablet 360 mg (mg) Total dose: 360 mg Dosing weight: 56.8 Date/Time Rate/Dose/Volume Action 12/07/24 0603 360 mg Given heparin (porcine) injection 5,000 Units (Units) Total dose: 10,000 Units Dosing weight: 56.8 Date/Time Rate/Dose/Volume Action 12/07/24 0025 5,000 Units Given 0824 5,000 Units Given darbepoetin yuri (Aranesp) injection 100 mcg (mcg) Total dose: 100 mcg Dosing weight: 56.8 Date/Time Rate/Dose/Volume Action 12/07/24 1109 100 mcg Given lactated Ringer's infusion (mL/hr) Total volume: Not documented* Dosing weight: 56.8 *Total volume has not been documented. View each administration to see the amount administered. Date/Time Rate/Dose/Volume Action 12/07/24 1110 75 mL/hr New Bag fentaNYL PF (Sublimaze) injection (mcg) Total dose: 50 mcg Date/Time Rate/Dose/Volume Action 12/07/24 1310 50 mcg Given midazolam (Versed) injection (mg) Total dose: 1 mg Date/Time Rate/Dose/Volume Action 12/07/24 1310 1 mg Given No specimens collected See detailed result report with images in PACS. The patient tolerated the procedure well without incident or complication and is in stable condition. * Pre-Procedure Note - Babak Mike MD - 12/07/2024 1:05 PM EDT Interventional Radiology Preprocedure Note Indication for procedure: The encounter diagnosis was Hyperkalemia. Relevant review of systems: NA Relevant Labs: Lab Results Component Value Date CREATININE 2.04 (H) 12/07/2024 EGFR 38 (L) 12/07/2024 INR 1.0 11/29/2024 PROTIME 11.4 11/29/2024 Planned Sedation/Anesthesia: Moderate Airway assessment: normal Directed physical examination: Aox3. Resting comfortably in bed. Respiratory rate/effort within normal limits. Right lower quadrant skin clean/intact. Mallampati: I (soft palate, uvula, fauces, and tonsillar pillars visible) ASA Score: ASA 3 - Patient with moderate systemic disease with functional limitations Benefits, risks and alternatives of procedure and planned sedation have been discussed with the patient and/or their floor representative. All questions answered and they agree to proceed. * Care Plan - Bridget Martinez RN - 12/06/2024 11:16 PM EDT The patient's goals for the shift include Rest The clinical goals for the shift include Patient will remain HDS during this shift. Problem: Pain - Adult Goal: Verbalizes/displays adequate comfort level or baseline comfort level Outcome: Progressing Problem: Safety - Adult Goal: Free from fall injury Outcome: Progressing Problem: Discharge Planning Goal: Discharge to home or other facility with appropriate resources Outcome: Progressing Problem: Chronic Conditions and Co-morbidities Goal: Patient's chronic conditions and co-morbidity symptoms are monitored and maintained or improved Outcome: Progressing Problem: Nutrition Goal: Nutrient intake appropriate for maintaining nutritional needs Outcome: Progressing documented in this [facility] Work Phone: [phone]) 834-954307-03-2025 Hospital Note* Hospital Course - Ambrosio Brothers MD - 12/09/2024 1:26 PM EDT Thom Chapin is a 54 y.o. male, s/p DDKT on 10/15/2024 for ESRD on iHD 2/2 HTN and T1DM, post-op has been c/b DGF (last dialyzed on 11/30) and TCMR, now s/p steroid pulse of 500/250/250 (11/24-), who presents to ED per installation coordinator for concerns of elevated BUN and K on labs on 12/06.He had received blood for anemia, and underwent dialysis for hyperkalemia. At time of discharge, his potassium improved to within normal range. Endocrinology was consulted for glucose management. He underwent kidney biopsy on 12/07/24. Pending final pathology result at time of discharge. He additionally underwent ureteral stent removal in OR on 12/09/24. He recovered appropriately postop. Patient is d ischarged on 12/09/24. Upon discharge, patient is tolerating a diet, denies pain, nausea, or vomiting, vital signs are stable, and remains afebrile. [facility] Work Phone: [phone]) 678-332607-03-2025 Procedure note* Brief Op Note - Dinah Miller MD - 12/09/2024 1:15 PM EDT Date: 12/09/2024 OR Location: [facility] OR Name: Thom Chapin, : 1970, Age: 54 y.o., , Sex: male Diagnosis Pre-op Diagnosis * Kidney replaced by transplant ([facility]) [Z94.0] Post-op Diagnosis * Kidney replaced by transplant ([facility]) [Z94.0] Procedures CYSTOSCOPY, WITH URETERAL STENT REMOVAL 95351 - ID CYSTO W/SIMPLE REMOVAL [facility]ONE [facility] STENT Surgeons * Geovanna Brothers - Primary Resident/Fellow/Other Heavy Mobile Equipment Repairer: Surgeons and Role: * Dinah Miller MD - Resident - Assisting Staff: Churn Driller: Linn Scrub Person: Avelino Hallub Person: Mary Fitzgerald Scrub: Lucie Fitzgerald Churn Driller: Lucie Anesthesia Staff: Anesthesiologist: Deion Bateman MD C-AA: TAMIR Garcia Procedure Summary Anesthesia: Monitor Anesthesia Care ASA: III Estimated Blood Loss: 0mL Intra-op Medications: Administrations occurring from 1151 to 1241 on 12/09/24: Medication Name Total Dose acetaminophen (Tylenol) tablet 650 mg Cannot be calculated amLODIPine (Norvasc) tablet 5 mg Cannot be calculated aspirin EC tablet 81 mg Cannot be calculated atorvastatin (Lipitor) tablet 40 mg Cannot be calculated calcitriol (Rocaltrol) capsule 0.25 mcg Cannot be calculated calcium carbonate (Tums) 500 mg (200 mg elemental) chewable tablet 1 tablet Cannot be calculated carvedilol (Coreg) tablet 25 mg Cannot be calculated clotrimazole (Mycelex) amanda 10 mg Cannot be calculated darbepoetin yuri (Aranesp) injection 100 mcg Cannot be calculated dextrose 50 % injection 12.5 g Cannot be calculated dextrose 50 % injection 12.5 g Cannot be calculated dextrose 50 % injection 25 g Cannot be calculated furosemide (Lasix) tablet 80 mg Cannot be calculated glucagon (Glucagen) injection 1 mg Cannot be calculated glucagon (Glucagen) injection 1 mg Cannot be calculated glucagon (Glucagen) injection 1 mg Cannot be calculated heparin (porcine) injection 5,000 Units Cannot be calculated insulin glargine (Lantus) injection 10 Units Cannot be calculated insulin lispro injection 0-5 Units Cannot be calculated insulin lispro injection 4 Units Cannot be calculated loperamide (Imodium) capsule 2 mg Cannot be calculated mycophenolate (Myfortic) EC tablet 360 mg Cannot be calculated predniSONE (Deltasone) tablet 10 mg Cannot be calculated tacrolimus ER (Envarsus XR) tablet ER 3 mg Cannot be calculated tamsulosin (Flomax) 24 hr capsule 0.4 mg Cannot be calculated valGANciclovir (Valcyte) tablet 450 mg Cannot be calculated Anesthesia Record Intraprocedure I/O Totals Intake NaCl 0.9 % bolus 250.00 mL Total Intake 250 mL Specimen: No specimens collected Findings: ureteral stent removed intact. Complications: None; patient tolerated the procedure well. Disposition: PACU - hemodynamically stable. Condition: stable Specimens Collected: No specimens collected Attending Attestation: Geovanna Brothers Cosigned by Geovanna Brothers MD at 12/09/2024 2:49 PM EDT [facility] Work Phone: [phone] Surgery Surgical operation note* Op Note - Geovanna Brothers MD - 12/09/2024 1:15 PM EDT CYSTOSCOPY, WITH URETERAL STENT REMOVAL Operative Note Date: 12/09/2024 OR Location: [facility] OR Name: Thom Chapin, : 1970, Age: 54 y.o., , Sex: male Diagnosis Pre-op Diagnosis * Kidney replaced by transplant ([facility]) [Z94.0] Post-op Diagnosis * Kidney replaced by transplant ([facility]) [Z94.0] Procedures CYSTOSCOPY, WITH URETERAL STENT REMOVAL 42007 - ID CYSTO W/SIMPLE REMOVAL STONE & STENT Surgeons * Geovanna Brothers - Primary Resident/Fellow/Other Heavy Mobile Equipment Repairer: Surgeons and Role: * Dinah Miller MD - Resident - Assisting Staff: Jared: Linn Rashid Person: Avelino Rashid Person: Mary Fitzgerald Scrub: [facility] Churn Driller: [facility] Anesthesia Staff: Anesthesiologist: Deion Bateman MD C-AA: TAMIR Garcia Procedure Summary Anesthesia: Monitor Anesthesia Care ASA: III Estimated Blood Loss: 0 mL Intra-op Medications: Administrations occurring from 1151 to 1241 on 12/09/24: Medication Name Total Dose acetaminophen (Tylenol) tablet 650 mg Cannot be calculated amLODIPine (Norvasc) tablet 5 mg Cannot be calculated aspirin EC tablet 81 mg Cannot be calculated atorvastatin (Lipitor) tablet 40 mg Cannot be calculated calcitriol (Rocaltrol) capsule 0.25 mcg Cannot be calculated calcium carbonate (Tums) 500 mg (200 mg elemental) chewable tablet 1 tablet Cannot be calculated carvedilol (Coreg) tablet 25 mg Cannot be calculated clotrimazole (Mycelex) amanda 10 mg Cannot be calculated darbepoetin yuri (Aranesp) injection 100 mcg Cannot be calculated dextrose 50 % injection 12.5 g Cannot be calculated dextrose 50 % injection 25 g Cannot be calculated furosemide (Lasix) tablet 80 mg Cannot be calculated glucagon (Glucagen) injection 1 mg Cannot be calculated glucagon (Glucagen) injection 1 mg Cannot be calculated glucagon (Glucagen) injection 1 mg Cannot be calculated heparin (porcine) injection 5,000 Units Cannot be calculated insulin glargine (Lantus) injection 10 Units Cannot be calculated insulin lispro injection 0-5 Units Cannot be calculated insulin lispro injection 4 Units Cannot be calculated loperamide (Imodium) capsule 2 mg Cannot be calculated mycophenolate (Myfortic) EC tablet 360 mg Cannot be calculated predniSONE (Deltasone) tablet 10 mg Cannot be calculated tacrolimus ER (Envarsus XR) tablet ER 3 mg Cannot be calculated tamsulosin (Flomax) 24 hr capsule 0.4 mg Cannot be calculated valGANciclovir (Valcyte) tablet 450 mg Cannot be calculated dextrose 50 % injection 12.5 g Cannot be calculated Anesthesia Record Intraprocedure I/O Totals Intake NaCl 0.9 % bolus 250.00 mL Total Intake 250 mL Output Est. Blood Loss 0 mL Total Output 0 mL Net Net Volume 250 mL Indications: Thom Chapin is an 54 y.o. male who is having surgery for stent removal The patient was seen in the preoperative area. The risks, benefits, complications, treatment options, non-operative alternatives, expected recovery and outcomes were discussed with the patient. The possibilities of reaction to medication, pulmonary aspiration, injury to surrounding structures, bleeding, recurrent infection, the need for additional procedures, failure to diagnose a condition, and creating a complication requiring transfusion or operation were discussed with the patient. The patient concurred with the proposed plan, giving informed consent. The site of surgery was properly noted/marked if necessary per policy. The patient has been actively warmed in preoperative area. Preopera tive antibiotics not indicated. Venous thrombosis prophylaxis have been ordered including bilateralsequential compression devices Procedure Details: The patient was placed on the OR table in supine position. After pre-operative huddle and time out,MAC anesthesia was induced. The patient is prepped and draped in the usual sterile fashion. A flexible cystoscope was introduced to the bladder under direct visualization. The bladder mucosa appearednormal. The ureteroneocystostomy anastomosis appeared normal. The ureteral stent was visualized andgrasped with grasper and removed in one piece. Bladder was emptied with a red rubber catheter. All counts were correct. I was present for the entire procedure. Evidence of Infection: No Complications: None; patient tolerated the procedure well. Disposition: PACU - hemodynamically stable. Condition: stable [employer] [facility] Work Phone: 1(347) 998-623707-02-2025 Plan of care note* Care Plan - Ashleigh Ram RN - 12/08/2024 1:49 PM EDT The patient's goals for the shift include unknown The clinical goals for the shift include Patient will remain HDS throughout shift Over the shift, the patient did make progress toward the following goals. Problem: Pain - Adult Goal: Verbalizes/displays adequate comfort level or baseline comfort level Outcome: Progressing Flowsheets (Taken 12/08/20241344) Verbalizes/displays adequate comfort level or baseline comfort level: Encourage patient to monitor pain and request assistance Assess pain using appropriate pain scale Problem: Safety - Adult Goal: Free from fall injury Outcome: Progressing Flowsheets (Taken 12/08/20241344) Free from fall injury: Instruct family/caregiver on patient safety Problem: Discharge Planning Goal: Discharge to home or other facility with appropriate resources Outcome: Progressing Flowsheets (Taken 12/08/20241344) Discharge to home or other facility with appropriate resources: Identify barriers to discharge with patient and caregiver Arrange for needed discharge resources and transportation as appropriate Problem: Chronic Conditions and Co-morbidities Goal: Patient's chronic conditions and co-morbidity symptoms are monitored and maintained or improved Outcome: Progressing Flowsheets (Taken 12/08/20241344) Care Plan - Patient's Chronic Conditions and Co-Morbidity Symptoms are Monitored and Maintained or Improved: Monitor and assess patient's chronic conditions and comorbid symptoms for stability, deterioration,or improvement Collaborate with multidisciplinary team to address chronic and comorbid conditions and prevent exacerbation or deterioration [facility]07-02-2025 Plan of care note* Care Plan - Finn Jenkins RN - 12/08/2024 2:55 AM EDT Problem: Pain - Adult Goal: Verbalizes/displays adequate comfort level or baseline comfort level Outcome: Progressing Problem: Safety - Adult Goal: Free from fall injury Outcome: Progressing The patient's goals for the shift include adequate sleep The clinical goals for the shift include patient will remain HDS throughout this shift Over the shift, the patient did make progress toward the above goals. [facility]07-01-2025 Plan of care note* Care Plan - Shaina Fleming RN - 12/07/2024 2:35 PM EDT The patient's goals for the shift include unknown The clinical goals for the shift include patient will remain HDS throughout this shift Problem: Pain - Adult Goal: Verbalizes/displays adequate comfort level or baseline comfort level Outcome: Progressing Problem: Safety - Adult Goal: Free from fall injury Outcome: Progressing Problem: Discharge Planning Goal: Discharge to home or other facility with appropriate resources Outcome: Progressing Problem: Chronic Conditions and Co-morbidities Goal: Patient's chronic conditions and co-morbidity symptoms are monitored and maintained or improved Outcome: Progressing Problem: Nutrition Goal: Nutrient intake appropriate for maintaining nutritional needs Outcome: Progressing [facility] Work Phone: 1(907) 455-676907-01-2025 Surgery Postoperative evaluation and management note* Post-Procedure Note - Babak Mike MD - 12/07/2024 1:27 PM EDT Interventional Radiology Brief Postprocedure Note Attending: Apollo Garcia MD [employer] Equipment Repairer: Babak Mike MD Diagnosis: increasing creatinine Description of procedure: image guided biopsy of right transplant kidney Anesthesia: Local and MAC Moderate Complications: None Estimated Blood Loss: minimal Medications As of 12/07/24 1328 amLODIPine (Norvasc) tablet 5 mg (mg) Total dose: 5 mg Dosing weight: 56.8 Date/Time Rate/Dose/Volume Action 12/07/24 08 5 mg Given aspirin EC tablet 81 mg (mg) Total dose: 81 mg Dosing weight: 56.8 Date/Time Rate/Dose/Volume Action 12/07/24823 81 mg Given atorvastatin (Lipitor) tablet 40 mg (mg) Total dose: 40 mg Dosing weight: 56.8 Date/Time Rate/Dose/Volume Action 12/07/24 08 40 mg Given calcitriol (Rocaltrol) capsule 0.25 mcg (mcg) Total dose: 0.25 mcg Dosing weight: 56.8 Date/Time Rate/Dose/Volume Action 12/07/24 08 0.25 mcg Given carvedilol (Coreg) tablet 25 mg (mg) Total dose: 50 mg Dosing weight: 56.8 Date/Time Rate/Dose/Volume Action 12/07/24 0025 25 mg Given 0824 25 mg Given insulin glargine (Lantus) injection 10 Units (Units) Total dose: 0 Units* Dosing weight: 56.8 *Administration not included in total Date/Time Rate/Dose/Volume Action 07/01/25 0826 *10 Units Missed sodium zirconium cyclosilicate (Lokelma) packet 10 g (g) Total dose: 0 g* Dosing weight: 56.8 *Administration not included in total Date/Time Rate/Dose/Volume Action 12/07/24 0824 *10 g Missed tacrolimus ER (Envarsus XR) tablet ER 3 mg (mg) Total dose: 3 mg Dosing weight: 56.8 Date/Time Rate/Dose/Volume Action 12/07/24 0834 3 mg Given tamsulosin (Flomax) 24 hr capsule 0.4 mg (mg) Total dose: 0.4 mg Dosing weight: 56.8 Date/Time Rate/Dose/Volume Action 12/07/24 0824 0.4 mg Given valGANciclovir (Valcyte) tablet 450 mg (mg) Total dose: 450 mg Dosing weight: 56.8 Date/Time Rate/Dose/Volume Action 12/07/24 0824 450 mg Given tacrolimus (Prograf) capsule 2 mg (mg) Total dose: 2 mg Dosing weight: 56.8 Date/Time Rate/Dose/Volume Action 12/07/24 0025 2 mg Given insulin lispro injection 0-5 Units (Units) Total dose: 3 Units Dosing weight: 56.8 Date/Time Rate/Dose/Volume Action 12/07/24 0025 3 Units Given 0457 *Not included in total Missed 0816 *Not included in total Missed 1212 *Not included in total Missed predniSONE (Deltasone) tablet 10 mg (mg) Total dose: 10 mg Dosing weight: 56.8 Date/Time Rate/Dose/Volume Action 12/07/24 0824 10 mg Given mycophenolate (Myfortic) EC tablet 360 mg (mg) Total dose: 360 mg Dosing weight: 56.8 Date/Time Rate/Dose/Volume Action 12/07/24 0603 360 mg Given heparin (porcine) injection 5,000 Units (Units) Total dose: 10,000 Units Dosing weight: 56.8 Date/Time Rate/Dose/Volume Action 12/07/24 0025 5,000 Units Given 0824 5,000 Units Given darbepoetin yuri (Aranesp) injection 100 mcg (mcg) Total dose: 100 mcg Dosing weight: 56.8 Date/Time Rate/Dose/Volume Action 12/07/24 1109 100 mcg Given lactated Ringer's infusion (mL/hr) Total volume: Not documented* Dosing weight: 56.8 *Total volume has not been documented. View each administration to see the amount administered. Date/Time Rate/Dose/Volume Action 12/07/24 1110 75 mL/hr New Bag fentaNYL PF (Sublimaze) injection (mcg) Total dose: 50 mcg Date/Time Rate/Dose/Volume Action 12/07/24 1310 50 mcg Given midazolam (Versed) injection (mg) Total dose: 1 mg Date/Time Rate/Dose/Volume Action 12/07/24 1310 1 mg Given No specimens collected See detailed result report with images in PACS. The patient tolerated the procedure well without incident or complication and is in stable condition. [facility] Work Phone: 1(584) 288-761107-01-2025 Evaluation note* Pre-Procedure Note - Bbaak Mike MD - 12/07/2024 1:05 PM EDT Interventional Radiology Preprocedure Note Indication for procedure: The encounter diagnosis was Hyperkalemia. Relevant review of systems: NA Relevant Labs: Lab Results Component Value Date CREATININE 2.04 (H) 12/07/2024 EGFR 38 (L) 12/07/2024 INR 1.0 11/29/2024 PROTIME 11.4 11/29/2024 Planned Sedation/Anesthesia: Moderate Airway assessment: normal Directed physical examination: Aox3. Resting comfortably in bed. Respiratory rate/effort within normal limits. Right lower quadrant skin clean/intact. Mallampati: I (soft palate, uvula, fauces, and tonsillar pillars visible) ASA Score: ASA 3 - Patient with moderate systemic disease with functional limitations Benefits, risks and alternatives of procedure and planned sedation have been discussed with the patient and/or their floor representative. All questions answered and they agree to proceed. [facility] Work Phone: 1(732) 308-449107-01-2025 C. difficile toxin A+B tcdA+tcdB genes SAQIB+probe Ql (Stl)C. difficile, PCRNot DetectedNot Detected SIMPLEXA COVID-19 DIRECT ASSAY[facility] 12/07/2024 11:55 AM [facility]07-01-2025 Consult note* Marjorie Lui RDN, LD - 12/07/2024 10:23 AM EDTAssociated Order(s): IP CONSULT TO NUTRITION SERVICES Nutrition Initial Assessment: Nutrition Assessment Reason for Assessment: Admission nursing screening Patient is a 54 y.o. male on day 2 of admission presenting with elevated potassium and watery diarrhea Pt was recently admitted from 11/23-11/27 Nutrition History: Energy Intake: Good > 75 % Food and Nutrient History: Met with pt during previous admission on 11/25. Pt stated today that between his admission his appetite has remained good similar to baseline. Pt stated that the diarrhea has been going on for 1-2 weeks and is having ~ 3 episodes/day. Pt denied any nausea or vomiting and was agreeable to ONS once able to advance diet. Vitamin/Herbal Supplement Use: Vitamin D Food Allergy: (none) Anthropometrics: Height: 190.5 cm (6' 3) Weight: 56.8 kg (125 lb 4.8 oz) BMI (Calculated): 15.66 IBW/kg (Dietitian Calculated): 89 kg Percent of IBW: 63.8 % Weight History: Wt Readings from Last 20 Encounters: 12/06/24 56.8 kg (125 lb 4.8 oz) 12/06/24 59.4 kg (131 lb) 12/03/24 59.7 kg (131 lb 11.2 oz) 12/02/24 60.1 kg (132 lb 7.9 oz) 11/26/24 57.8 kg (127 lb 6.8 oz) 11/23/24 59 kg (130 lb) 11/17/24 59.1 kg (130 lb 3.2 oz) 11/03/24 60.3 kg (133 lb)-->6% wt loss from this date to current (significant) 10/21/24 69.4 kg (152 lb 14.4 oz)-->12.5% wt loss from this date to 11/03 (significant) 09/09/24 67.2 kg (148 lb 1.6 oz) 12/08/23 68 kg (150 lb)-->16.7% wt loss from this date to current (not significant) 11/18/23 69.3 kg (152 lb 12.8 oz) Weight Change %: Weight History / % Weight Change: pt has a history of weight loss, was insignificant 1 year ago buthas recent significant wt loss in the past month Significant Weight Loss: Yes Interpretation of Weight Loss: >5% in 1 month Nutrition Focused Physical Exam Findings: Subcutaneous Fat Loss: Orbital Fat Pads: Mild-Moderate (slight dark circles and slight hollowing) Buccal Fat Pads: Mild-Moderate (flat cheeks, minimal bounce) Triceps: Severe (negligible fat tissue) Muscle Wasting: Pectoralis (Clavicular Region): Severe (protruding prominent clavicle) Deltoid/Trapezius: Severe (squared shoulders, acromion process prominent) Interosseous: Mild-Moderate (slightly depressed area between thumb and forefinger) Gastrocnemius: Severe (minimal muscle definition) Edema: Edema: none Physical Findings: Hair: Negative Eyes: Negative Nails: Negative Skin: Negative Nutrition Significant Labs: CBC Trend: Results from last 7 days Lab Units 12/07/24 0529 12/06/24 1624 12/06/24 1009 12/02/24 1325 WBC AUTO x10*3/uL 4.5 8.0 5.9 6.3 RBC AUTO x10*6/uL 2.78* 3.21* 3.14* 3.26* HEMOGLOBIN g/dL 6.8* 7.9* 7.8* 8.1* HEMATOCRIT % 21.7* 25.5* 26.0* 26.6* MCV fL 78* 79* 83 82 PLATELETS AUTO x10*3/uL 91* 112* 116* 106* BMP Trend: Results from last 7 days Lab Units 12/07/24 0529 12/06/24 1852 12/06/24 1624 12/06/24 1009 12/02/24 1325 GLUCOSE mg/dL 95 -- 362* 262* 316* CALCIUM mg/dL 8.3* -- 9.1 9.1 8.7 SODIUM mmol/L 141 -- 134* 138 136 POTASSIUM mmol/L 3.1* < > 7.2* 6.3* 6.0* CO2 mmol/L 28 -- 16* 17* 25 CHLORIDE mmol/L 103 -- 111* 114* 104 BUN mg/dL 48* -- 95* 90* 67* CREATININE mg/dL 2.04* -- 3.64* 3.66* 4.26* < > = values in this interval not displayed. Renal Lab Trend: Results from last 7 days Lab Units 12/07/24 0529 12/06/24 1852 12/06/24 1624 12/06/24 1009 POTASSIUM mmol/L 3.1* 6.1* 7.2* 6.3* PHOSPHORUS mg/dL 3.3 -- 5.9* 5.6* SODIUM mmol/L 141 -- 134* 138 MAGNESIUM mg/dL 1.62 -- 1.79 1.85 EGFR mL/min/1.73m*2 38* -- 19* 19* BUN mg/dL 48* -- 95* 90* CREATININE mg/dL 2.04* -- 3.64* 3.66* Vit D: Lab Results Component Value Date VITD210/15/2024 Nutrition Specific Medications: Scheduled medications atorvastatin, 40 mg, oral, Daily carvedilol, 25 mg, oral, BID darbepoetin yuri, 100 mcg, subcutaneous, Weekly insulin glargine, 10 Units, subcutaneous, q AM insulin lispro, 0-5 Units, subcutaneous, q4h predniSONE, 10 mg, oral, Daily I/O: Last BM Date: 12/06/24; Stool Appearance: Liquid (12/07/24 0811) Dietary Orders (From admission, onward) Start Ordered 12/08/24 0001 NPO Diet Except: Sips with meds; Effective midnight Diet effective midnight Question: Except: Answer: Sips with meds 12/07/24 1048 12/07/24 0002 May Participate in Room Service ( ROOM SERVICE MAY PARTICIPATE) Once Question: . Answer: Yes 12/07/24 0001 Estimated Needs: Total Energy Estimated Needs in 24 hours (kCal): 1800 kCal Method for Estimating Needs: MSJx1.2 Total Protein Estimated Needs in 24 Hours (g): 100 g Method for Estimating 24 Hour Protein Needs: 1.2g/kg IBW Total Fluid Estimated Needs in 24 Hours (mL): 1800 mL Method for Estimating 24 Hour Fluid Needs: 1ml/kcal or per MD team Nutrition Diagnosis Malnutrition Diagnosis Patient has Malnutrition Diagnosis: Yes Diagnosis Status: New Malnutrition Diagnosis: Severe malnutrition related to acute disease or injury Related to: unintended wt loss As Evidenced by: 6% wt loss in the past month, moderate/severe muscle and fat loss, BMI of 15.66kg/m^2, and 63.8% of IBW Nutrition Interventions/Recommendations Nutrition prescription for oral nutrition Nutrition Recommendations: Individualized Nutrition Prescription Provided for : 1. Once able to advance diet, recommend CCD per team discretion. 2. Once able to advance diet, please order Glucerna ONS TID (each containing 220kcals and 10g PRO) Nutrition Interventions/Goals: Meals and Snacks: General healthful diet Goal: consume >/=75% of meals and snacks Medical Food Supplement: Commercial beverage medical food supplement therapy Goal: consume 100% of 2-3 ONS/day Education Documentation Pt had no further questions at this time Nutrition Monitoring and Evaluation Intake / Amount of food: Consumes at least 75% or more of meals/snacks/supplements Body Weight: Body weight - Promote weight latter day Electrolyte and Renal Panel: Electrolytes within normal limits Glucose/Endocrine Profile: Glucose within normal limits (80-180 mg/dL) Goal Status: New goal(s) identified Time Spent (min): 60 minutes [facility]07-01-2025 Consult note* Marjorie Lui RDN, LD - 12/07/2024 10:23 AM EDTAssociated Order(s): IP CONSULT TO NUTRITION SERVICES Nutrition Initial Assessment: Nutrition Assessment Reason for Assessment: Admission nursing screening Patient is a 54 y.o. male on day 2 of admission presenting with elevated potassium and watery diarrhea Pt was recently admitted from 11/23-11/27 Nutrition History: Energy Intake: Good > 75 % Food and Nutrient History: Met with pt during previous admission on 11/25. Pt stated today that between his admission his appetite has remained good similar to baseline. Pt stated that the diarrhea has been going on for 1-2 weeks and is having ~ 3 episodes/day. Pt denied any nausea or vomiting and was agreeable to ONS once able to advance diet. Vitamin/Herbal Supplement Use: Vitamin D Food Allergy: (none) Anthropometrics: Height: 190.5 cm (6' 3) Weight: 56.8 kg (125 lb 4.8 oz) BMI (Calculated): 15.66 IBW/kg (Dietitian Calculated): 89 kg Percent of IBW: 63.8 % Weight History: Wt Readings from Last 20 Encounters: 12/06/24 56.8 kg (125 lb 4.8 oz) 12/06/24 59.4 kg (131 lb) 12/03/24 59.7 kg (131 lb 11.2 oz) 12/02/24 60.1 kg (132 lb 7.9 oz) 11/26/24 57.8 kg (127 lb 6.8 oz) 11/23/24 59 kg (130 lb) 11/17/24 59.1 kg (130 lb 3.2 oz) 11/03/24 60.3 kg (133 lb)-->6% wt loss from this date to current (significant) 10/21/24 69.4 kg (152 lb 14.4 oz)-->12.5% wt loss from this date to 11/03 (significant) 09/09/24 67.2 kg (148 lb 1.6 oz) 12/08/23 68 kg (150 lb)-->16.7% wt loss from this date to current (not significant) 11/18/23 69.3 kg (152 lb 12.8 oz) Weight Change %: Weight History / % Weight Change: pt has a history of weight loss, was insignificant 1 year ago buthas recent significant wt loss in the past month Significant Weight Loss: Yes Interpretation of Weight Loss: >5% in 1 month Nutrition Focused Physical Exam Findings: Subcutaneous Fat Loss: Orbital Fat Pads: Mild-Moderate (slight dark circles and slight hollowing) Buccal Fat Pads: Mild-Moderate (flat cheeks, minimal bounce) Triceps: Severe (negligible fat tissue) Muscle Wasting: Pectoralis (Clavicular Region): Severe (protruding prominent clavicle) Deltoid/Trapezius: Severe (squared shoulders, acromion process prominent) Interosseous: Mild-Moderate (slightly depressed area between thumb and forefinger) Gastrocnemius: Severe (minimal muscle definition) Edema: Edema: none Physical Findings: Hair: Negative Eyes: Negative Nails: Negative Skin: Negative Nutrition Significant Labs: CBC Trend: Results from last 7 days Lab Units 12/07/24 0512/06/24 1624 12/06/24 1009 12/02/24 1325 WBC AUTO x10*3/uL 4.5 8.0 5.9 6.3 RBC AUTO x10*6/uL 2.78* 3.21* 3.14* 3.26* HEMOGLOBIN g/dL 6.8* 7.9* 7.8* 8.1* HEMATOCRIT % 21.7* 25.5* 26.0* 26.6* MCV fL 78* 79* 83 82 PLATELETS AUTO x10*3/uL 91* 112* 116* 106* BMP Trend: Results from last 7 days Lab Units 12/07/2452812/06/24185112/06/24 16212/06/24 1009 12/02/24 1325 GLUCOSE mg/dL 95 -- 362* 262* 316* CALCIUM mg/dL 8.3* -- 9.1 9.1 8.7 SODIUM mmol/L 141 -- 134* 138 136 POTASSIUM mmol/L 3.1* < > 7.2* 6.3* 6.0* CO2 mmol/L 28 -- 16* 17* 25 CHLORIDE mmol/L 103 -- 111* 114* 104 BUN mg/dL 48* -- 95* 90* 67* CREATININE mg/dL 2.04* -- 3.64* 3.66* 4.26* < > = values in this interval not displayed. Renal Lab Trend: Results from last 7 days Lab Units 12/07/2452812/06/24185112/06/24162312/06/24 1009 POTASSIUM mmol/L 3.1* 6.1* 7.2* 6.3* PHOSPHORUS mg/dL 3.3 -- 5.9* 5.6* SODIUM mmol/L 141 -- 134* 138 MAGNESIUM mg/dL 1.62 -- 1.79 1.85 EGFR mL/min/1.73m*2 38* -- 19* 19* BUN mg/dL 48* -- 95* 90* CREATININE mg/dL 2.04* -- 3.64* 3.66* Vit D: Lab Results Component Value Date VITD210/15/2024 Nutrition Specific Medications: Scheduled medications atorvastatin, 40 mg, oral, Daily carvedilol, 25 mg, oral, BID darbepoetin yuri, 100 mcg, subcutaneous, Weekly insulin glargine, 10 Units, subcutaneous, q AM insulin lispro, 0-5 Units, subcutaneous, q4h predniSONE, 10 mg, oral, Daily I/O: Last BM Date: 12/06/24; Stool Appearance: Liquid (12/07/24 0811) Dietary Orders (From admission, onward) Start Ordered 12/08/24 0001 NPO Diet Except: Sips with meds; Effective midnight Diet effective midnight Question: Except: Answer: Sips with meds 12/07/24 1048 12/07/24 0002 May Participate in Room Service ( ROOM SERVICE MAY PARTICIPATE) Once Question: . Answer: Yes 12/07/24 0001 Estimated Needs: Total Energy Estimated Needs in 24 hours (kCal): 1800 kCal Method for Estimating Needs: MSJx1.2 Total Protein Estimated Needs in 24 Hours (g): 100 g Method for Estimating 24 Hour Protein Needs: 1.2g/kg IBW Total Fluid Estimated Needs in 24 Hours (mL): 1800 mL Method for Estimating 24 Hour Fluid Needs: 1ml/kcal or per MD team Nutrition Diagnosis Malnutrition Diagnosis Patient has Malnutrition Diagnosis: Yes Diagnosis Status: New Malnutrition Diagnosis: Severe malnutrition related to acute disease or injury Related to: unintended wt loss As Evidenced by: 6% wt loss in the past month, moderate/severe muscle and fat loss, BMI of 15.66kg/m^2, and 63.8% of IBW Nutrition Interventions/Recommendations Nutrition prescription for oral nutrition Nutrition Recommendations: Individualized Nutrition Prescription Provided for : 1. Once able to advance diet, recommend CCD per team discretion. 2. Once able to advance diet, please order Glucerna ONS TID (each containing 220kcals and 10g PRO) Nutrition Interventions/Goals: Meals and Snacks: General healthful diet Goal: consume >/=75% of meals and snacks Medical Food Supplement: Commercial beverage medical food supplement therapy Goal: consume 100% of 2-3 ONS/day Education Documentation Pt had no further questions at this time Nutrition Monitoring and Evaluation Intake / Amount of food: Consumes at least 75% or more of meals/snacks/supplements Body Weight: Body weight - Promote weight latter day Electrolyte and Renal Panel: Electrolytes within normal limits Glucose/Endocrine Profile: Glucose within normal limits (80-180 mg/dL) Goal Status: New goal(s) identified Time Spent (min): 60 minutes * Mariaa Dwyer MD - 12/07/2024 12:08 AM EDT Images from the original note were not included. H&P SERVICE DATE: 12/06/2024 SERVICE TIME: 11:52 PM REASON FOR CONSULT: Immunosuppressive medication management and nephrology related issues. REQUESTING PHYSICIAN: Mariaa Dwyer MD PRIMARY CARE PHYSICIAN: Ron Coronado MD ADMISSION DIAGNOSIS: 1. Hyperkalemia TRANSPLANT DATE: 10/15/2024 (Kidney) BLOOD TYPE: B HPI: Mr. Chapin is a 54 y.o. male with past medical history significant for ESRD secondary to type 1 diabetes whom received a donor kidney transplant on 10/15/24 KDPI of 40% and PRA of 22%. Donor was Hepc - / - and has not met risk factors. EBV +/+. Right donor kidney transplanted to patient right pelvis. Dry weight is 65 kg . Pt received a total of 4.5 mg/kg total of thymoglobulin induction therapy in conjunction with 500mg IV solumedrol. Pt was initiated on Tacrolimus & Cellcept immunosuppression in conjunction with IV solumedrol taper. Pt was started on valcyte (CMV D + / R + ) and bactrim for CMV & PCP prophylaxis per protocol. He was started on clotrimazole as antifungal coverage per protocol. Operative course was uncomplicated. Hospital course was uncomplicated. Pt with DGF and had a kidney biopsy done on 11/23/24, showed ATN and borderline rejection. He was admitted for IV steroid pulse. Then discharged on outpt HD. Last treatment was on 11/30/24. Then dialysis has been held given down trending Cr. Noted K from lab on 12/02 was 6 (mild hemolysis). Mr. Chapin did lab today and K went up to 6+, has diarrhea watery 3-4 times and was directed to ED [facility] where lab showed K of 7 with EKG changes. I discussed with ED provider, Lead Nurse there and transfer center. Patient received medical management and repeat K was 6.1. Then he was transferred to [facility]. Noted glucose was high and bicarb was low upon presentation at ED [facility]. REVIEW OF SYSTEM: Review of system was done system by system (03/22). Apart from HPI, other symptoms were negative. PAST MEDICAL HISTORY: Medical History[1] PAST SURGICAL HISTORY: Surgical History[2] SOCIAL HISTORY: Social History Socioeconomic History Marital status: Single Spouse name: Not on file Number of children: Not on file Years of education: Not on file Highest education level: Not on file Occupational History Not on file Tobacco Use Smoking status: Former Types: Cigarettes Start date: 2013 Smokeless tobacco: Never Substance and Sexual Activity Alcohol use: Not Currently Drug use: Yes Types: Marijuana Sexual activity: Not on file Other Topics Concern Not on file Social History Narrative Not on file Social Drivers of Health Financial Resource Strain: Low Risk (11/25/2024) Overall Financial Resource Strain (CARDIA) Difficulty of Paying Living Expenses: Not very hard Food Insecurity: No Food Insecurity (11/24/2024) Hunger Vital Sign Worried About Running Out of Food in the Last Year: Never true Ran Out of Food in the Last Year: Never true Transportation Needs: No Transportation Needs (11/25/2024) PRAPARE - Transportation Lack of Transportation (Medical): No Lack of Transportation (Non-Medical): No Physical Activity: Sufficiently Active (11/24/2024) Exercise Vital Sign Days of Exercise per Week: 3 days Minutes of Exercise per Session: 60 min Stress: No Stress Concern Present (11/24/2024) [employer] [place] [employer] - Occupational Stress Questionnaire Feeling of Stress : Not at all Social Connections: Feeling Socially Integrated (10/26/2024) OASIS D0700: Social Isolation Frequency of experiencing loneliness or isolation: Never Intimate Partner Violence: Not At Risk (11/24/2024) Humiliation, Afraid, Rape, and Kick questionnaire Fear of Current or Ex-Partner: No Emotionally Abused: No Physically Abused: No Sexually Abused: No Housing Stability: Low Risk (11/25/2024) Housing Stability Vital Sign Unable to Pay for Housing in the Last Year: No Number of Times Moved in the Last Year: 0 Homeless in the Last Year: No FAMILY HISTORY: Family History[3] MEDICATION LIST: [START ON 12/07/2024] amLODIPine, 5 mg, Daily [START ON 12/07/2024] aspirin, 81 mg, Daily [START ON 12/07/2024] atorvastatin, 40 mg, Daily [START ON 12/07/2024] calcitriol, 0.25 mcg, Daily [START ON 12/07/2024] carvedilol, 25 mg, BID [START ON 12/07/2024] insulin glargine, 10 Units, q AM [START ON 12/07/2024] insulin lispro, 0-5 Units, TID AC [START ON 12/07/2024] mycophenolate, 750 mg, q12h [START ON 12/07/2024] predniSONE, 20 mg, Daily [START ON 12/07/2024] sodium zirconium cyclosilicate, 10 g, Daily [START ON 12/07/2024] sulfamethoxazole-trimethoprim, 1 tablet, Daily [START ON 12/07/2024] tacrolimus, 2 mg, Once [START ON 12/07/2024] tacrolimus ER, 3 mg, Daily [START ON 12/07/2024] tamsulosin, 0.4 mg, Daily [START ON 12/07/2024] valGANciclovir, 450 mg, Every other day acetaminophen, 487.5 mg, q6h PRN dextrose, 12.5 g, q15 min PRN dextrose, 12.5 g, q15 min PRN dextrose, 25 g, q15 min PRN glucagon, 1 mg, q15 min PRN glucagon, 1 mg, q15 min PRN glucagon, 1 mg, q15 min PRN ALLERGY: Allergies[4] PHYCISCAL EXAMINATION: Visit Vitals BP 104/67 (BP Location: Right arm, Patient Position: Sitting) Pulse 92 Temp 35.6 C (96.1 F) (Temporal) Resp 16 Ht 1.905 m (6' 3) Wt 56.8 kg (125 lb 4.8 oz) SpO2 100% BMI 15.66 kg/m Smoking Status Former BSA 1.73 m No intake/output data recorded. General Appearance - NAD, Good speech, oriented and alert HEENT - Supple. Not pale. No jaundice. No cervical lymphadenopathy. Pharynx and tonsils are not injected. CVS - RRR. Normal S1/S2. No murmur, click , rub or gallop Lungs- clear to auscultation bilaterally Abdomen - soft , not tender, no guarding, no rigidity. No hepatosplenomegaly. Normal bowel sounds. No masses and ascites. S/P Kidney transplant . Transplanted kidney is not tender. Musculoskeletal /Extremities - no edema. Full ROM. No joint tenderness. Neuro/Psych - appropriate mood and affect. Motor power V/V all extremities. CN I -XII were grossly intact. Skin - No visible rash LABS: Results for orders placed or performed during the hospital encounter of 12/06/24 (from the past 24 hours) POCT GLUCOSE Result Value Ref Range POCT Glucose 288 (H) 74 - 99 mg/dL ASSESSMENT AND PLAN: 54 y/o male with a hx of ESRD secondary to type 1 diabetes whom received a donor kidney transplant on 10/15/24 KDPI of 40% and PRA of 22%. Donor was Hepc - / - and has not met risk factors. EBV +/+. Right donor kidney transplanted to patient right pelvis. Dry weight is 65 kg . Pt received a total of 4.5 mg/kg total of thymoglobulin induction therapy in conjunction with 500mg IV solumedrol.Pt was initiated on Tacrolimus & Cellcept immunosuppression in conjunction with IV solumedrol taper. Pt was started on valcyte (CMV D + / R + ) and bactrim for CMV & PCP prophylaxis per protocol. He was started on clotrimazole as antifungal coverage per protocol. Operative course was uncompl icated. Hospital course was uncomplicated. Pt with DGF and had a kidney biopsy done on 11/23/24, showed ATN and borderline rejection. He was admitted for IV steroid pulse. Then discharged on outpt HD. Last treatment was on 11/30/24. Then dialysis has been held given down trending Cr. Noted K from lab on 12/02 was 6 (mild hemolysis). Mr. Chapin did lab today and K went up to 6+, has diarrhea watery 3-4 times and was directed to ED [facility] where lab showed K of 7 with EKG changes. I discussed with ED provider, Lead Nurse there and transfer center. Patient received medical management and repeat K was 6.1. Then he was transferred to [facility]. Noted glucose was high and bicarb was low upon presentation at ED [facility]. Transplant nephrology is consulted to assist with immunosuppressive medication management and nephrology related issues. HyperK : secondary to hyperglycemia and acidosis Emergent HD stat x 2 HOURS, 1K/2.25 Ca WITHOUT fluid removal. Would place him on Lokelma 10 gram daily HOLD Bactrim SS Maintain on Bicarb PO Hyperglycemia/ DM and on steroid Check glucose, resume insulin, consult ENDO in am Send UA with reflex to rule out UTI Diarrhea Stool pathogen CMV PLASMA PCR in am Check C. Diff IV fluid after HD Immunosuppression Reduce prednisone to 10 mg tomorrow Switch MMF to Myfortic 360 mg bid, starting tomorrow Given his tac level from am was <2, I will give tacrolimus IR 2 MG X one stat. Then resume Envarsus xr 3 mg daily tomorrow. Monitor tac trough level Would send allosure in am Anemia Send iron studies, ferritin in am Prophylaxis PPI Valcyte renally dose Bactrim SS- HOLD Clotrimazole Subcut heparin Seen and discussed at multi disciplinary round with Dr. 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 Prior NSTEMI/PCI (2019). Currently asymptomatic. Patient available any day of the week. Please call to schedule (via [employer] if needed). TOE AMPUTATION Right 2015 [3] Family History Problem Relation Name Age of Onset Diabetes Mother Diabetes Maternal Grandmother [4] No Known Allergies Cosigned by Nathan Lizarraga MD at 12/08/2024 1:47 PM EDT * Mariaa Dwyer MD - 12/06/2024 11:00 PM EDT Images from the original note were not included. INPATIENT INITIAL TRANSPLANT NEPHROLOGY CONSULT SERVICE DATE: 12/07/2024 SERVICE TIME: 12:04 AM REASON FOR CONSULT: Immunosuppressive medication management and nephrology related issues. REQUESTING PHYSICIAN: Mariaa Dwyer MD PRIMARY CARE PHYSICIAN: Ron Coronado MD ADMISSION DIAGNOSIS: 1. Hyperkalemia TRANSPLANT DATE: 10/15/2024 (Kidney) BLOOD TYPE: B HPI: Mr. Chapin is a 54 y.o. male with past medical history significant for ESRD secondary to type 1 diabetes whom received a donor kidney transplant on 10/15/24 KDPI of 40% and PRA of 22%. Donor was Hepc - / - and has not met risk factors. EBV +/+. Right donor kidney transplanted to patient right pelvis. Dry weight is 65 kg . Pt received a total of 4.5 mg/kg total of thymoglobulin induction therapy in conjunction with 500mg IV solumedrol. Pt was initiated on Tacrolimus & Cellcept immunosuppression in conjunction with IV solumedrol taper. Pt was started on valcyte (CMV D + / R + ) and bactrim for CMV & PCP prophylaxis per protocol. He was started on clotrimazole as antifungal coverage per protocol. Operative course was uncomplicated. Hospital course was uncomplicated. Pt with DGF and had a kidney biopsy done on 11/23/24, showed ATN and borderline rejection. He was admitted for IV steroid pulse. Then discharged on outpt HD. Last treatment was on 11/30/24. Then dialysis has been held given down trending Cr. Noted K from lab on 12/02 was 6 (mild hemolysis). Mr. Chapin did lab today and K went up to 6+, has diarrhea watery 3-4 times and was directed to ED [facility] where lab showed K of 7 with EKG changes. I discussed with ED provider, Lead Nurse there and transfer center. Patient received medical management and repeat K was 6.1. Then he was transferred to [facility]. Noted glucose was high and bicarb was low upon presentation at ED [facility]. REVIEW OF SYSTEM: Review of system was done system by system (03/22). Apart from HPI, other symptoms were negative. PAST MEDICAL HISTORY: Medical History[1] PAST SURGICAL HISTORY: Surgical History[2] SOCIAL HISTORY: Social History Socioeconomic History Marital status: Single Spouse name: Not on file Number of children: Not on file Years of education: Not on file Highest education level: Not on file Occupational History Not on file Tobacco Use Smoking status: Former Types: Cigarettes Start date: 2013 Smokeless tobacco: Never Substance and Sexual Activity Alcohol use: Not Currently Drug use: Yes Types: Marijuana Sexual activity: Not on file Other Topics Concern Not on file Social History Narrative Not on file Social Drivers of Health Financial Resource Strain: Low Risk (11/25/2024) Overall Financial Resource Strain (CARDIA) Difficulty of Paying Living Expenses: Not very hard Food Insecurity: No Food Insecurity (11/24/2024) Hunger Vital Sign Worried About Running Out of Food in the Last Year: Never true Ran Out of Food in the Last Year: Never true Transportation Needs: No Transportation Needs (11/25/2024) PRAPARE - Transportation Lack of Transportation (Medical): No Lack of Transportation (Non-Medical): No Physical Activity: Sufficiently Active (11/24/2024) Exercise Vital Sign Days of Exercise per Week: 3 days Minutes of Exercise per Session: 60 min Stress: No Stress Concern Present (11/24/2024) [employer] [place] [employer] - Occupational Stress Questionnaire Feeling of Stress : Not at all Social Connections: Feeling Socially Integrated (10/26/2024) OASIS D0700: Social Isolation Frequency of experiencing loneliness or isolation: Never Intimate Partner Violence: Not At Risk (11/24/2024) Humiliation, Afraid, Rape, and Kick questionnaire Fear of Current or Ex-Partner: No Emotionally Abused: No Physically Abused: No Sexually Abused: No Housing Stability: Low Risk (11/25/2024) Housing Stability Vital Sign Unable to Pay for Housing in the Last Year: No Number of Times Moved in the Last Year: 0 Homeless in the Last Year: No FAMILY HISTORY: Family History[3] MEDICATION LIST: amLODIPine, 5 mg, Daily aspirin, 81 mg, Daily atorvastatin, 40 mg, Daily calcitriol, 0.25 mcg, Daily carvedilol, 25 mg, BID heparin, 5,000 Units, q8h insulin glargine, 10 Units, q AM insulin lispro, 0-5 Units, q4h mycophenolate, 360 mg, BID predniSONE, 10 mg, Daily sodium zirconium cyclosilicate, 10 g, Daily tacrolimus, 2 mg, Once tacrolimus, 2 mg, Once tacrolimus ER, 3 mg, Daily tamsulosin, 0.4 mg, Daily valGANciclovir, 450 mg, Every other day acetaminophen, 650 mg, q6h PRN dextrose, 12.5 g, q15 min PRN dextrose, 12.5 g, q15 min PRN dextrose, 25 g, q15 min PRN glucagon, 1 mg, q15 min PRN glucagon, 1 mg, q15 min PRN glucagon, 1 mg, q15 min PRN ALLERGY: Allergies[4] PHYCISCAL EXAMINATION: Visit Vitals BP 104/67 (BP Location: Right arm, Patient Position: Sitting) Pulse 92 Temp 35.6 C (96.1 F) (Temporal) Resp 16 Ht 1.905 m (6' 3) Wt 56.8 kg (125 lb 4.8 oz) SpO2 100% BMI 15.66 kg/m Smoking Status Former BSA 1.73 m No intake/output data recorded. General Appearance - NAD, Good speech, oriented and alert HEENT - Supple. Not pale. No jaundice. No cervical lymphadenopathy. Pharynx and tonsils are not injected. CVS - RRR. Normal S1/S2. No murmur, click , rub or gallop Lungs- clear to auscultation bilaterally Abdomen - soft , not tender, no guarding, no rigidity. No hepatosplenomegaly. Normal bowel sounds. No masses and ascites. S/P Kidney transplant . Transplanted kidney is not tender. Musculoskeletal /Extremities - no edema. Full ROM. No joint tenderness. Neuro/Psych - appropriate mood and affect. Motor power V/V all extremities. CN I -XII were grossly intact. Skin - No visible rash LABS: Results for orders placed or performed during the hospital encounter of 12/06/24 (from the past 24 hours) POCT GLUCOSE Result Value Ref Range POCT Glucose 288 (H) 74 - 99 mg/dL ASSESSMENT AND PLAN: 54 y/o male with a hx of ESRD secondary to type 1 diabetes whom received a donor kidney transplant on 10/15/24 KDPI of 40% and PRA of 22%. Donor was Hepc - / - and has not met risk factors. EBV +/+. Right donor kidney transplanted to patient right pelvis. Dry weight is 65 kg . Pt received a total of 4.5 mg/kg total of thymoglobulin induction therapy in conjunction with 500mg IV solumedrol.Pt was initiated on Tacrolimus & Cellcept immunosuppression in conjunction with IV solumedrol taper. Pt was started on valcyte (CMV D + / R + ) and bactrim for CMV & PCP prophylaxis per protocol. He was started on clotrimazole as antifungal coverage per protocol. Operative course was uncompl icated. Hospital course was uncomplicated. Pt with DGF and had a kidney biopsy done on 11/23/24, showed ATN and borderline rejection. He was admitted for IV steroid pulse. Then discharged on outpt HD. Last treatment was on 11/30/24. Then dialysis has been held given down trending Cr. Noted K from lab on 12/02 was 6 (mild hemolysis). Mr. Chapin did lab today and K went up to 6+, has diarrhea watery 3-4 times and was directed to ED [facility] where lab showed K of 7 with EKG changes. I discussed with ED provider, Lead Nurse there and transfer center. Patient received medical management and repeat K was 6.1. Then he was transferred to [facility]. Noted glucose was high and bicarb was low upon presentation at ED [facility]. Transplant nephrology is consulted to assist with immunosuppressive medication management and nephrology related issues. HyperK : secondary to hyperglycemia and acidosis Emergent HD stat x 2 HOURS, 1K/2.25 Ca WITHOUT fluid removal. Would place him on Lokelma 10 gram daily HOLD Bactrim SS Maintain on Bicarb PO Hyperglycemia/ DM and on steroid Check glucose, resume insulin, consult ENDO in am Send UA with reflex to rule out UTI Diarrhea Stool pathogen CMV PLASMA PCR in am Check C. Diff IV fluid after HD Immunosuppression Reduce prednisone to 10 mg tomorrow Switch MMF to Myfortic 360 mg bid, starting tomorrow Given his tac level from am was <2, I will give tacrolimus IR 2 MG X one stat. Then resume Envarsus xr 3 mg daily tomorrow. Monitor tac trough level Would send allosure in am Anemia Send iron studies, ferritin in am Prophylaxis PPI Valcyte renally dose Bactrim SS- HOLD Clotrimazole Subcut heparin Seen and discussed at multi disciplinary round with niraj Calderonp pharmacist, residents Mariaa Dwyer MD [1] Past Medical History: Diagnosis Date CKD (chronic kidney disease) stage 4, GFR 15-29 ml/min (Multi) Diabetes mellitus (Multi) Hypertension [2] Past Surgical History: Procedure Laterality Date CARDIAC CATHETERIZATION N/A 12/08/2023 Procedure: Left Heart Cath; Surgeon: Janet Jiménez MD; Location: [place] [address] 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 Prior NSTEMI/PCI (2019). Currently asymptomatic. Patient available any day of the week. Please call to schedule (via [employer] if needed). TOE AMPUTATION Right 2015 [3] Family History Problem Relation Name Age of Onset Diabetes Mother Diabetes Maternal Grandmother [4] No Known Allergies documented in this [facility] Work Phone: [phone] History and physical note* Nathan Lizarraga MD - 12/07/2024 6:00 AM EDT Images from the original note were not included. Transplant Surgery History and Physical Subjective Chief Complaint/Reason for Admission: Hyperkalemia and diarrhea HPI: Mr. Chapin is a 54 y.o. male with past medical history significant for ESRD secondary to type 1 diabetes whom received a donor kidney transplant on 10/15/24 KDPI of 40% and PRA of 22%. Donor was Hepc - / - and has not met risk factors. EBV +/+. Right donor kidney transplanted to patient right pelvis. Dry weight is 65 kg . Pt received a total of 4.5 mg/kg total of thymoglobulin induction therapy in conjunction with 500mg IV solumedrol. Pt was initiated on Tacrolimus & Cellcept immunosuppression in conjunction with IV solumedrol taper. Pt was started on valcyte (CMV D + / R + ) and bactrim for CMV & PCP prophylaxis per protocol. He was started on clotrimazole as antifungal coverage per protocol. Operative course was uncomplicated. Hospital course was uncomplicated. Pt with DGF and had a kidney biopsy done on 11/23/24, showed ATN and borderline rejection. He was admitted for IV steroid pulse. Then discharged on outpt HD. Last treatment was on 11/30/24. Then dialysis has beenheld given down trending Cr. Noted K from lab on 12/02 was 6 (mild hemolysis). Mr. Chapin did lab today and K went up to 6+, has diarrhea watery 3-4 times and was directed to ED [facility] where lab showed K of 7 with EKG changes. Patient requiring emerrgent dialysis due to hyperkalemia. A 12-point ROS was performed and was unremarkable except as above. PMH: Medical History[1] PSH: Surgical History[2] Soc Hx: Social History Socioeconomic History Marital status: Single Spouse name: Not on file Number of children: Not on file Years of education: Not on file Highest education level: Not on file Occupational History Not on file Tobacco Use Smoking status: Former Types: Cigarettes Start date: 2013 Smokeless tobacco: Never Substance and Sexual Activity Alcohol use: Not Currently Drug use: Yes Types: Marijuana Sexual activity: Not on file Other Topics Concern Not on file Social History Narrative Not on file Social Drivers of Health Financial Resource Strain: Low Risk (12/07/2024) Overall Financial Resource Strain (CARDIA) Difficulty of Paying Living Expenses: Not very hard Food Insecurity: No Food Insecurity (12/07/2024) Hunger Vital Sign Worried About Running Out of Food in the Last Year: Never true Ran Out of Food in the Last Year: Never true Transportation Needs: No Transportation Needs (12/07/2024) PRAPARE - Transportation Lack of Transportation (Medical): No Lack of Transportation (Non-Medical): No Physical Activity: Patient Declined (12/07/2024) Exercise Vital Sign Days of Exercise per Week: Patient declined Minutes of Exercise per Session: Patient declined Stress: No Stress Concern Present (12/07/2024) [place] [employer] - Occupational Stress Questionnaire Feeling of Stress : Not at all Social Connections: Patient Unable To Answer (12/07/2024) Social Connection and Isolation Panel [NHANES] Frequency of Communication with Friends and Family: Patient unable to answer Frequency of Social Gatherings with Friends and Family: Patient unable to answer Attends Anabaptism Services: Patient unable to answer Active Member of Clubs or Organizations: Patient unable to answer Attends Club or Organization Meetings: Patient unable to answer Marital Status: Patient unable to answer Intimate Partner Violence: Not At Risk (12/07/2024) Humiliation, Afraid, Rape, and Kick questionnaire Fear of Current or Ex-Partner: No Emotionally Abused: No Physically Abused: No Sexually Abused: No Housing Stability: Low Risk (12/07/2024) Housing Stability Vital Sign Unable to Pay for Housing in the Last Year: No Number of Times Moved in the Last Year: 0 Homeless in the Last Year: No Fam Hx: Family History[3] Allergies: RX Allergies[4] Current Medications: Medications Ordered Prior to Encounter[5] Objective Vitals: Visit Vitals BP (!) 145/91 (BP Location: Right arm, Patient Position: Lying) Pulse 83 Temp 37.1 C (98.8 F) (Temporal) Resp 16 Physical Exam: General Appearance - NAD, Good speech, oriented and alert HEENT - Supple. Not pale. No jaundice. No cervical lymphadenopathy. Pharynx and tonsils are not injected. CVS - RRR Lungs- non labored breathing, on RA Abdomen - soft non distended non tender S/P Kidney transplant . Transplanted kidney is not tender. Musculoskeletal/Extremities - no edema. Full ROM. No joint tenderness. Neuro/Psych - appropriate mood and affect. Motor power V/V all extremities. CN I -XII were grossly intact. Skin - No visible rash Labs within past 24h: Results for orders placed or performed during the hospital encounter of 12/06/24 (from the past 24 hours) POCT GLUCOSE Result Value Ref Range POCT Glucose 288 (H) 74 - 99 mg/dL Urinalysis with Reflex Microscopic Result Value Ref Range Color, Urine Colorless (N) Light-Yellow, Yellow, Dark-Yellow Appearance, Urine Clear Clear Specific [place], Urine 1.009 1.005 - 1.035 pH, Urine 6.0 5.0, 5.5, 6.0, 6.5, 7.0, 7.5, 8.0 Protein, Urine NEGATIVE NEGATIVE, 10 (TRACE), 20 (TRACE) mg/dL Glucose, Urine 200 (2+) (A) Normal mg/dL Blood, Urine 0.03 (TRACE) (A) NEGATIVE mg/dL Ketones, Urine NEGATIVE NEGATIVE mg/dL Bilirubin, Urine NEGATIVE NEGATIVE mg/dL Urobilinogen, Urine Normal Normal mg/dL Nitrite, Urine NEGATIVE NEGATIVE Leukocyte Esterase, Urine NEGATIVE NEGATIVE Microscopic Only, Urine Result Value Ref Range WBC, Urine NONE 1-5, NONE /HPF RBC, Urine 6-10 (A) NONE, 1-2, 3-5 /HPF Hyaline Casts, Urine OCCASIONAL (A) NONE /LPF POCT GLUCOSE Result Value Ref Range POCT Glucose 109 (H) 74 - 99 mg/dL Type and screen Result Value Ref Range ABO TYPE B Rh TYPE POS ANTIBODY SCREEN NEG CBC Result Value Ref Range WBC 4.5 4.4 - 11.3 x10*3/uL nRBC 0.0 0.0 - 0.0 /100 WBCs RBC 2.78 (L) 4.50 - 5.90 x10*6/uL Hemoglobin 6.8 (L) 13.5 - 17.5 g/dL Hematocrit 21.7 (L) 41.0 - 52.0 % MCV 78 (L) 80 - 100 fL MCH 24.5 (L) 26.0 - 34.0 pg MCHC 31.3 (L) 32.0 - 36.0 g/dL RDW 17.9 (H) 11.5 - 14.5 % Platelets 91 (L) 150 - 450 x10*3/uL Ferritin Result Value Ref Range Ferritin 3,218 (H) 20 - 300 ng/mL Iron and TIBC Result Value Ref Range Iron 167 (H) 35 - 150 ug/dL UIBC <55 (L) 110 - 370 ug/dL TIBC % Saturation Magnesium Result Value Ref Range Magnesium 1.62 1.60 - 2.40 mg/dL Renal Function Panel Result Value Ref Range Glucose 95 74 - 99 mg/dL Sodium 141 136 - 145 mmol/L Potassium 3.1 (L) 3.5 - 5.3 mmol/L Chloride 103 98 - 107 mmol/L Bicarbonate 28 21 - 32 mmol/L Anion Gap 13 10 - 20 mmol/L Urea Nitrogen 48 (H) 6 - 23 mg/dL Creatinine 2.04 (H) 0.50 - 1.30 mg/dL eGFR 38 (L) >60 mL/min/1.73m*2 Calcium 8.3 (L) 8.6 - 10.6 mg/dL Phosphorus 3.3 2.5 - 4.9 mg/dL Albumin 3.3 (L) 3.4 - 5.0 g/dL POCT GLUCOSE Result Value Ref Range POCT Glucose 74 74 - 99 mg/dL Imaging within past 24h: Imaging No results found. Cardiology, Vascular, and Other Imaging ECG 12 lead Result Date: 12/07/2024 Normal sinus rhythm Anteroseptal infarct (cited on or before 06-DEC-2024) ACUTE CA / STEMI Abnormal ECG When compared with ECG of 06-DEC-2024 17:08, (unconfirmed) Premature atrial complexes are no longer Present ECG 12 lead Result Date: 12/07/2024 Sinus rhythm with Premature atrial complexes in a pattern of bigeminy Indeterminate axis Anteroseptal infarct (cited on or before 06-DEC-2024) ACUTE CA / STEMI Abnormal ECG When compared with ECG of 06-DEC-2024 17:08, (unconfirmed) Previous ECG has undetermined rhythm, needs review Serial changes of evolving Anteroseptal infarct Present No pertinent imaging to review. ASSESSMENT Mr. Chapin is a 54 y.o. male with past medical history significant for ESRD secondary to type 1 diabetes whom received a donor kidney transplant on 10/15/24 KDPI of 40% and PRA of 22%. Donor was Hepc - / - and has not met risk factors. EBV +/+. Right donor kidney transplanted to patient right pelvis. Dry weight is 65 kg . Pt received a total of 4.5 mg/kg total of thymoglobulin induction therapy in conjunction with 500mg IV solumedrol. Pt was initiated on Tacrolimus & Cellcept immunosuppression in conjunction with IV solumedrol taper. Pt was started on valcyte (CMV D + / R + ) and bactrim for CMV & PCP prophylaxis per protocol. He was started on clotrimazole as antifungal coverage per protocol. Operative course was uncomplicated. Hospital course was uncomplicated. Pt with DGF and had a kidney biopsy done on 11/23/24, showed ATN and borderline rejection. He was admitted for IV steroid pulse. Then discharged on outpt HD. Last treatment was on 11/30/24. Then dialysis has beenheld given down trending Cr. Noted K from lab on 12/02 was 6 (mild hemolysis). Mr. Chapin did lab 12/06 and K went up to 6+, has diarrhea watery 3-4 times and was directed to ED [facility] where lab showed K of 7 with EKG changes. PLAN: HyperK : secondary to hyperglycemia and acidosis Emergent dialysis overnight. HOLD Bactrim SS Maintain on Bicarb PO Hyperglycemia/ DM and on steroid Endocrine consult - appreciate recommendations Send UA with reflex to rule out UTI Diarrhea Stool pathogen CMV PLASMA PCR in am Check C. Diff IV fluid after HD S/p kidney transplant + Immunosuppression Plan for IR transplant kidney biopsy today Prednisone 10 mg daily today Switch MMF to Myfortic 360 mg bid in a setting of diarrhea Continue envarsus 3mg Monitor tac trough level Would send allosure in am Anemia Send iron studies, ferritin in am 1 pRBC today Prophylaxis PPI Valcyte renally dose Bactrim SS- HOLD Clotrimazole Subcut heparin Discussed with Dr. Lizarraga. Angella Valenzuela MD PGY-4 General Surgery Transplant Surgery [id number] I saw and evaluated the patient. I personally obtained the cespedes and critical portions of the historyand physical exam or was physically present for cespedes and critical portions performed by the resident/fellow. I reviewed the resident/fellow's documentation and discussed the patient with the resident/f paulette. I agree with the resident/fellow's medical decision making as documented in the note. Nathan Lizarraga MD [1] Past Medical History: Diagnosis Date CKD (chronic kidney disease) stage 4, GFR 15-29 ml/min (Multi) Diabetes mellitus (Multi) Hypertension [2] Past Surgical History: Procedure Laterality Date CARDIAC CATHETERIZATION N/A 12/08/2023 Procedure: Left Heart Cath; Surgeon: Janet Jiménez MD; Location: [place] [address] 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 Prior NSTEMI/PCI (2019). Currently asymptomatic. Patient available any day of the week. Please call to schedule (via [employer] if needed). TOE AMPUTATION Right 2015 [3] Family History Problem Relation Name Age of Onset Diabetes Mother Diabetes Maternal Grandmother [4] No Known Allergies [5] Current Facility-Administered Medications on File Prior to Encounter Medication Dose Route Frequency Provider Last Rate Last Admin [COMPLETED] calcium gluconate 2 g in sodium chloride (iso) IV 100 mL 2 g intravenous Once Jose Enrique Avendano DO Stopped at 12/06/24 1750 [COMPLETED] furosemide (Lasix) injection 80 mg 80 mg intravenous Once Jose Enrique Bradley DO 80 mg at 12/06/24 1739 [COMPLETED] insulin regular (HumuLIN R,NovoLIN R) injection 5 Units 5 Units intravenous Once Jose Enrique Bradley DO 5 Units at 12/06/24 1739 [COMPLETED] sodium bicarbonate 8.4 % (1 mEq/mL) 50 mEq 50 mEq intravenous Once Jose Enrique Bradley, DO 50 mEq at 12/06/24 174 [COMPLETED] sodium zirconium cyclosilicate (Lokelma) packet 10 g 10 g oral Once Jose Enrique Bradley,DO 10 g at 12/06/24 1741 [DISCONTINUED] dextrose 50 % injection 25 g 25 g intravenous Once Jose Enrique Bradley, DO [DISCONTINUED] sodium polystyrene (Kayexalate) suspension 15 g 15 g oral Once Jose Enrique Bradley, DO Current Outpatient Medications on File Prior to Encounter Medication Sig Dispense Refill acetaminophen (Tylenol) 500 mg tablet Take 1 tablet (500 mg) by mouth every 6 hours if needed for mild pain (1 - 3). With daily Aspirin amLODIPine (Norvasc) 5 mg tablet Take 1 tablet (5 mg) by mouth once daily. 30 tablet 0 aspirin 81 mg EC tablet Take 1 tablet (81 mg) by mouth once daily. 30 tablet 3 atorvastatin (Lipitor) 40 mg tablet Take 1 tablet (40 mg) by mouth once daily. calcitriol (Rocaltrol) 0.25 mcg capsule Take 1 capsule (0.25 mcg) by mouth once daily. 30 capsule 3 carvedilol (Coreg) 25 mg tablet Take 1 tablet (25 mg) by mouth 2 times a day. 60 tablet 0 cholecalciferol (Vitamin D-3) 50 mcg (2,000 units) capsule Take 1 capsule (50 mcg) by mouth early in the morning.. 30 capsule 3 dorzolamide-timoloL (Cosopt) 22.3-6.8 mg/mL ophthalmic solution Instill 1 drop in both eyes twice aday furosemide (Lasix) 40 mg tablet Take 1 tablet (40 mg) by mouth once daily. 30 tablet 1 hydrALAZINE (Apresoline) 100 mg tablet Take 1 tablet (100 mg) by mouth 3 times a day as needed. insulin aspart (NovoLOG Flexpen U-100 Insulin) 100 unit/mL (3 mL) pen Inject 4 Units under the skin3 times a day before meals. Inject 4 units for breakfast, lunch, and dinner. Check blood sugar & follow sliding scale. 0 unit(s) if Blood glucose is between 71-150; 1 unit(s) for 151-200; 2 unit(s) for 201-250; 3 unit(s) for 251-300; 4 unit(s) for 301-350; 5 unit(s) for 351-400 (up to 50 units/day) (Patient taking differently: Inject under the skin. Inject 4 units for breakfast, lunch, and dinner. Check blood sugar & follow sliding scale. 0 unit(s) if Blood glucose is between 71-150; 1 unit(s) for 151-200; 2 unit(s) for 201-250; 3 unit(s) for 251-300; 4 unit(s) for 301-350; 5 unit(s) for 351-400 (up to 50 units/day)) insulin glargine-yfgn 100 unit/mL (3 mL) pen Inject 8 Units under the skin once daily in the morning. Take as directed per insulin instructions. (Patient taking differently: Inject 10 Units under theskin once daily in the morning. Take as directed per insulin instructions.) multivitamin tablet Take 1 tablet by mouth once daily. mycophenolate (Cellcept) 250 mg capsule Take 3 capsules (750 mg) by mouth every 12 hours. 240 capsule 11 pantoprazole (ProtoNix) 40 mg EC tablet Take 1 tablet (40 mg) by mouth once daily in the morning. Take before meals. Do not crush, chew, or split. 90 tablet 0 predniSONE (Deltasone) 5 mg tablet Take 4 tablets (20 mg) by mouth once daily. 120 tablet 11 sodium zirconium cyclosilicate (Lokelma) 10 gram packet Take 10 g by mouth once daily. sulfamethoxazole-trimethoprim (Bactrim) 400-80 mg tablet Take 1 tablet by mouth once daily. 30 tablet 0 tacrolimus ER (Envarsus XR) 1 mg tablet ER Take 3 tablets (3 mg) by mouth once daily. 90 tablet 11 tamsulosin (Flomax) 0.4 mg 24 hr capsule Take 1 capsule (0.4 mg) by mouth once daily. Do not crush,chew, or split. 30 capsule 3 valGANciclovir (Valcyte) 450 mg tablet Take 1 tablet (450 mg) by mouth every other day. Do not crush or chew. [DISCONTINUED] metoprolol tartrate (Lopressor) 25 mg tablet Take 1 tablet (25 mg) by mouth 2 times a day. alcohol swabs (Alcohol Pads) Use 4-8 per day to check blood glucose and for injectable medications 400 each 3 blood sugar diagnostic (Blood Glucose Test) Check blood glucose 4 time per day (Patient taking differently: if needed. Check blood glucose 4 time per day) 100 each 0 blood-glucose meter misc Use to check blood glucose (Patient taking differently: if needed. Use to check blood glucose) 1 each 0 blood-glucose sensor (Dexcom G7 Sensor) device Use to check glucose, change every 10 days 9 each 11 clotrimazole (Mycelex) 10 mg amanda Use 1 tablet (10 mg) in the mouth or throat 3 times a day aftermeals. (Patient not taking: Reported on 12/07/2024) 90 Amanda 0 glucagon 1 mg/0.2 mL solution Inject 1 mg under the skin if needed (use to treat hypoglycemia <55mg/dL which cannot be safely treated with food/drink). 0.4 mL 1 lancets 33 gauge misc Use to test blood sugar four times a day (Patient taking differently: 1 Box every 4 hours if needed.) 100 each 0 latanoprost (Xalatan) 0.005 % ophthalmic solution Administer 1 drop into affected eye(s) once dailyat bedtime. [Paused] sildenafil (Viagra) 50 mg tablet Take 1 tablet (50 mg) by mouth if needed. [DISCONTINUED] mycophenolate (Cellcept) 250 mg capsule Take 4 capsules (1,000 mg) by mouth every 12hours. 240 capsule 11 [DISCONTINUED] tacrolimus (Prograf) 1 mg capsule Take 1 capsule (1 mg) by mouth 2 times a day. 60 capsule [address] [facility] Work Phone: [phone] History and physical note* Nathan Lizarraga MD - 12/07/2024 6:00 AM EDT Images from the original note were not included. Transplant Surgery History and Physical Subjective Chief Complaint/Reason for Admission: Hyperkalemia and diarrhea HPI: Mr. Chapin is a 54 y.o. male with past medical history significant for ESRD secondary to type 1 diabetes whom received a donor kidney transplant on 10/15/24 KDPI of 40% and PRA of 22%. Donor was Hepc - / - and has not met risk factors. EBV +/+. Right donor kidney transplanted to patient right pelvis. Dry weight is 65 kg . Pt received a total of 4.5 mg/kg total of thymoglobulin induction therapy in conjunction with 500mg IV solumedrol. Pt was initiated on Tacrolimus & Cellcept immunosuppression in conjunction with IV solumedrol taper. Pt was started on valcyte (CMV D + / R + ) and bactrim for CMV & PCP prophylaxis per protocol. He was started on clotrimazole as antifungal coverage per protocol. Operative course was uncomplicated. Hospital course was uncomplicated. Pt with DGF and had a kidney biopsy done on 11/23/24, showed ATN and borderline rejection. He was admitted for IV steroid pulse. Then discharged on outpt HD. Last treatment was on 11/30/24. Then dialysis has beenheld given down trending Cr. Noted K from lab on 12/02 was 6 (mild hemolysis). Mr. Chapin did lab today and K went up to 6+, has diarrhea watery 3-4 times and was directed to ED [facility] where lab showed K of 7 with EKG changes. Patient requiring emerrgent dialysis due to hyperkalemia. A 12-point ROS was performed and was unremarkable except as above. PMH: Medical History[1] PSH: Surgical History[2] Soc Hx: Social History Socioeconomic History Marital status: Single Spouse name: Not on file Number of children: Not on file Years of education: Not on file Highest education level: Not on file Occupational History Not on file Tobacco Use Smoking status: Former Types: Cigarettes Start date: 2013 Smokeless tobacco: Never Substance and Sexual Activity Alcohol use: Not Currently Drug use: Yes Types: Marijuana Sexual activity: Not on file Other Topics Concern Not on file Social History Narrative Not on file Social Drivers of Health Financial Resource Strain: Low Risk (12/07/2024) Overall Financial Resource Strain (CARDIA) Difficulty of Paying Living Expenses: Not very hard Food Insecurity: No Food Insecurity (12/07/2024) Hunger Vital Sign Worried About Running Out of Food in the Last Year: Never true Ran Out of Food in the Last Year: Never true Transportation Needs: No Transportation Needs (12/07/2024) PRAPARE - Transportation Lack of Transportation (Medical): No Lack of Transportation (Non-Medical): No Physical Activity: Patient Declined (12/07/2024) Exercise Vital Sign Days of Exercise per Week: Patient declined Minutes of Exercise per Session: Patient declined Stress: No Stress Concern Present (12/07/2024) [employer] [place] [employer] - Occupational Stress Questionnaire Feeling of Stress : Not at all Social Connections: Patient Unable To Answer (12/07/2024) Social Connection and Isolation Panel [NHANES] Frequency of Communication with Friends and Family: Patient unable to answer Frequency of Social Gatherings with Friends and Family: Patient unable to answer Attends Anabaptism Services: Patient unable to answer Active Member of Clubs or Organizations: Patient unable to answer Attends Club or Organization Meetings: Patient unable to answer Marital Status: Patient unable to answer Intimate Partner Violence: Not At Risk (12/07/2024) Humiliation, Afraid, Rape, and Kick questionnaire Fear of Current or Ex-Partner: No Emotionally Abused: No Physically Abused: No Sexually Abused: No Housing Stability: Low Risk (12/07/2024) Housing Stability Vital Sign Unable to Pay for Housing in the Last Year: No Number of Times Moved in the Last Year: 0 Homeless in the Last Year: No Fam Hx: Family History[3] Allergies: RX Allergies[4] Current Medications: Medications Ordered Prior to Encounter[5] Objective Vitals: Visit Vitals BP (!) 145/91 (BP Location: Right arm, Patient Position: Lying) Pulse 83 Temp 37.1 C (98.8 F) (Temporal) Resp 16 Physical Exam: General Appearance - NAD, Good speech, oriented and alert HEENT - Supple. Not pale. No jaundice. No cervical lymphadenopathy. Pharynx and tonsils are not injected. CVS - RRR Lungs- non labored breathing, on RA Abdomen - soft non distended non tender S/P Kidney transplant . Transplanted kidney is not tender. Musculoskeletal/Extremities - no edema. Full ROM. No joint tenderness. Neuro/Psych - appropriate mood and affect. Motor power V/V all extremities. CN I -XII were grossly intact. Skin - No visible rash Labs within past 24h: Results for orders placed or performed during the hospital encounter of 12/06/24 (from the past 24 hours) POCT GLUCOSE Result Value Ref Range POCT Glucose 288 (H) 74 - 99 mg/dL Urinalysis with Reflex Microscopic Result Value Ref Range Color, Urine Colorless (N) Light-Yellow, Yellow, Dark-Yellow Appearance, Urine Clear Clear Specific [place], Urine 1.009 1.005 - 1.035 pH, Urine 6.0 5.0, 5.5, 6.0, 6.5, 7.0, 7.5, 8.0 Protein, Urine NEGATIVE NEGATIVE, 10 (TRACE), 20 (TRACE) mg/dL Glucose, Urine 200 (2+) (A) Normal mg/dL Blood, Urine 0.03 (TRACE) (A) NEGATIVE mg/dL Ketones, Urine NEGATIVE NEGATIVE mg/dL Bilirubin, Urine NEGATIVE NEGATIVE mg/dL Urobilinogen, Urine Normal Normal mg/dL Nitrite, Urine NEGATIVE NEGATIVE Leukocyte Esterase, Urine NEGATIVE NEGATIVE Microscopic Only, Urine Result Value Ref Range WBC, Urine NONE 1-5, NONE /HPF RBC, Urine 6-10 (A) NONE, 1-2, 3-5 /HPF Hyaline Casts, Urine OCCASIONAL (A) NONE /LPF POCT GLUCOSE Result Value Ref Range POCT Glucose 109 (H) 74 - 99 mg/dL Type and screen Result Value Ref Range ABO TYPE B Rh TYPE POS ANTIBODY SCREEN NEG CBC Result Value Ref Range WBC 4.5 4.4 - 11.3 x10*3/uL nRBC 0.0 0.0 - 0.0 /100 WBCs RBC 2.78 (L) 4.50 - 5.90 x10*6/uL Hemoglobin 6.8 (L) 13.5 - 17.5 g/dL Hematocrit 21.7 (L) 41.0 - 52.0 % MCV 78 (L) 80 - 100 fL MCH 24.5 (L) 26.0 - 34.0 pg MCHC 31.3 (L) 32.0 - 36.0 g/dL RDW 17.9 (H) 11.5 - 14.5 % Platelets 91 (L) 150 - 450 x10*3/uL Ferritin Result Value Ref Range Ferritin 3,218 (H) 20 - 300 ng/mL Iron and TIBC Result Value Ref Range Iron 167 (H) 35 - 150 ug/dL UIBC <55 (L) 110 - 370 ug/dL TIBC % Saturation Magnesium Result Value Ref Range Magnesium 1.62 1.60 - 2.40 mg/dL Renal Function Panel Result Value Ref Range Glucose 95 74 - 99 mg/dL Sodium 141 136 - 145 mmol/L Potassium 3.1 (L) 3.5 - 5.3 mmol/L Chloride 103 98 - 107 mmol/L Bicarbonate 28 21 - 32 mmol/L Anion Gap 13 10 - 20 mmol/L Urea Nitrogen 48 (H) 6 - 23 mg/dL Creatinine 2.04 (H) 0.50 - 1.30 mg/dL eGFR 38 (L) >60 mL/min/1.73m*2 Calcium 8.3 (L) 8.6 - 10.6 mg/dL Phosphorus 3.3 2.5 - 4.9 mg/dL Albumin 3.3 (L) 3.4 - 5.0 g/dL POCT GLUCOSE Result Value Ref Range POCT Glucose 74 74 - 99 mg/dL Imaging within past 24h: Imaging No results found. Cardiology, Vascular, and Other Imaging ECG 12 lead Result Date: 12/07/2024 Normal sinus rhythm Anteroseptal infarct (cited on or before 06-DEC-2024) ACUTE CA / STEMI Abnormal ECG When compared with ECG of 06-DEC-2024 17:08, (unconfirmed) Premature atrial complexes are no longer Present ECG 12 lead Result Date: 12/07/2024 Sinus rhythm with Premature atrial complexes in a pattern of bigeminy Indeterminate axis Anteroseptal infarct (cited on or before 06-DEC-2024) ACUTE CA / STEMI Abnormal ECG When compared with ECG of 06-DEC-2024 17:08, (unconfirmed) Previous ECG has undetermined rhythm, needs review Serial changes of evolving Anteroseptal infarct Present No pertinent imaging to review. ASSESSMENT Mr. Chapin is a 54 y.o. male with past medical history significant for ESRD secondary to type 1 diabetes whom received a donor kidney transplant on 10/15/24 KDPI of 40% and PRA of 22%. Donor was Hepc - / - and has not met risk factors. EBV +/+. Right donor kidney transplanted to patient right pelvis. Dry weight is 65 kg . Pt received a total of 4.5 mg/kg total of thymoglobulin induction therapy in conjunction with 500mg IV solumedrol. Pt was initiated on Tacrolimus & Cellcept immunosuppression in conjunction with IV solumedrol taper. Pt was started on valcyte (CMV D + / R + ) and bactrim for CMV & PCP prophylaxis per protocol. He was started on clotrimazole as antifungal coverage per protocol. Operative course was uncomplicated. Hospital course was uncomplicated. Pt with DGF and had a kidney biopsy done on 11/23/24, showed ATN and borderline rejection. He was admitted for IV steroid pulse. Then discharged on outpt HD. Last treatment was on 11/30/24. Then dialysis has beenheld given down trending Cr. Noted K from lab on 12/02 was 6 (mild hemolysis). Mr. Chapin did lab 12/06 and K went up to 6+, has diarrhea watery 3-4 times and was directed to ED [facility] where lab showed K of 7 with EKG changes. PLAN: HyperK : secondary to hyperglycemia and acidosis Emergent dialysis overnight. HOLD Bactrim SS Maintain on Bicarb PO Hyperglycemia/ DM and on steroid Endocrine consult - appreciate recommendations Send UA with reflex to rule out UTI Diarrhea Stool pathogen CMV PLASMA PCR in am Check C. Diff IV fluid after HD S/p kidney transplant + Immunosuppression Plan for IR transplant kidney biopsy today Prednisone 10 mg daily today Switch MMF to Myfortic 360 mg bid in a setting of diarrhea Continue envarsus 3mg Monitor tac trough level Would send allosure in am Anemia Send iron studies, ferritin in am 1 pRBC today Prophylaxis PPI Valcyte renally dose Bactrim SS- HOLD Clotrimazole Subcut heparin Discussed with Dr. Lizarraga. Angella Valenzuela MD PGY-4 General Surgery Transplant Surgery [id number] I saw and evaluated the patient. I personally obtained the cespedes and critical portions of the historyand physical exam or was physically present for cespedes and critical portions performed by the resident/fellow. I reviewed the resident/fellow's documentation and discussed the patient with the resident/f paulette. I agree with the resident/fellow's medical decision making as documented in the note. Nathan Lizarraga MD [1] Past Medical History: Diagnosis Date CKD (chronic kidney disease) stage 4, GFR 15-29 ml/min (Multi) Diabetes mellitus (Multi) Hypertension [2] Past Surgical History: Procedure Laterality Date CARDIAC CATHETERIZATION N/A 12/08/2023 Procedure: Left Heart Cath; Surgeon: Janet Jiménez MD; Location: [place] [address] 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 Prior NSTEMI/PCI (2019). Currently asymptomatic. Patient available any day of the week. Please call to schedule (via [employer] [place] if needed). TOE AMPUTATION Right 2015 [3] Family History Problem Relation Name Age of Onset Diabetes Mother Diabetes Maternal Grandmother [4] No Known Allergies [5] Current Facility-Administered Medications on File Prior to Encounter Medication Dose Route Frequency Provider Last Rate Last Admin [COMPLETED] calcium gluconate 2 g in sodium chloride (iso) IV 100 mL 2 g intravenous Once Jose Enrique Avendano DO Stopped at 12/06/24 1750 [COMPLETED] furosemide (Lasix) injection 80 mg 80 mg intravenous Once Jose Enrique Bradley, DO 80 mg at 12/06/241738 [COMPLETED] insulin regular (HumuLIN R,NovoLIN R) injection 5 Units 5 Units intravenous Once Jose Enrique Bradley, DO 5 Units at 12/06/241738 [COMPLETED] sodium bicarbonate 8.4 % (1 mEq/mL) 50 mEq 50 mEq intravenous Once Jose Enrique Bradley, DO 50 mEq at 12/06/24 174 [COMPLETED] sodium zirconium cyclosilicate (Lokelma) packet 10 g 10 g oral Once Jose Enrique Bradley,DO 10 g at 12/06/24 174 [DISCONTINUED] dextrose 50 % injection 25 g 25 g intravenous Once Jose Enrique Bradley, DO [DISCONTINUED] sodium polystyrene (Kayexalate) suspension 15 g 15 g oral Once Jose Enrique Bradley, DO Current Outpatient Medications on File Prior to Encounter Medication Sig Dispense Refill acetaminophen (Tylenol) 500 mg tablet Take 1 tablet (500 mg) by mouth every 6 hours if needed for mild pain (1 - 3). With daily Aspirin amLODIPine (Norvasc) 5 mg tablet Take 1 tablet (5 mg) by mouth once daily. 30 tablet 0 aspirin 81 mg EC tablet Take 1 tablet (81 mg) by mouth once daily. 30 tablet 3 atorvastatin (Lipitor) 40 mg tablet Take 1 tablet (40 mg) by mouth once daily. calcitriol (Rocaltrol) 0.25 mcg capsule Take 1 capsule (0.25 mcg) by mouth once daily. 30 capsule 3 carvedilol (Coreg) 25 mg tablet Take 1 tablet (25 mg) by mouth 2 times a day. 60 tablet 0 cholecalciferol (Vitamin D-3) 50 mcg (2,000 units) capsule Take 1 capsule (50 mcg) by mouth early in the morning.. 30 capsule 3 dorzolamide-timoloL (Cosopt) 22.3-6.8 mg/mL ophthalmic solution Instill 1 drop in both eyes twice aday furosemide (Lasix) 40 mg tablet Take 1 tablet (40 mg) by mouth once daily. 30 tablet 1 hydrALAZINE (Apresoline) 100 mg tablet Take 1 tablet (100 mg) by mouth 3 times a day as needed. insulin aspart (NovoLOG Flexpen U-100 Insulin) 100 unit/mL (3 mL) pen Inject 4 Units under the skin3 times a day before meals. Inject 4 units for breakfast, lunch, and dinner. Check blood sugar & follow sliding scale. 0 unit(s) if Blood glucose is between 71-150; 1 unit(s) for 151-200; 2 unit(s) for 201-250; 3 unit(s) for 251-300; 4 unit(s) for 301-350; 5 unit(s) for 351-400 (up to 50 units/day) (Patient taking differently: Inject under the skin. Inject 4 units for breakfast, lunch, and dinner. Check blood sugar & follow sliding scale. 0 unit(s) if Blood glucose is between 71-150; 1 unit(s) for 151-200; 2 unit(s) for 201-250; 3 unit(s) for 251-300; 4 unit(s) for 301-350; 5 unit(s) for 351-400 (up to 50 units/day)) insulin glargine-yfgn 100 unit/mL (3 mL) pen Inject 8 Units under the skin once daily in the morning. Take as directed per insulin instructions. (Patient taking differently: Inject 10 Units under theskin once daily in the morning. Take as directed per insulin instructions.) multivitamin tablet Take 1 tablet by mouth once daily. mycophenolate (Cellcept) 250 mg capsule Take 3 capsules (750 mg) by mouth every 12 hours. 240 capsule 11 pantoprazole (ProtoNix) 40 mg EC tablet Take 1 tablet (40 mg) by mouth once daily in the morning. Take before meals. Do not crush, chew, or split. 90 tablet 0 predniSONE (Deltasone) 5 mg tablet Take 4 tablets (20 mg) by mouth once daily. 120 tablet 11 sodium zirconium cyclosilicate (Lokelma) 10 gram packet Take 10 g by mouth once daily. sulfamethoxazole-trimethoprim (Bactrim) 400-80 mg tablet Take 1 tablet by mouth once daily. 30 tablet 0 tacrolimus ER (Envarsus XR) 1 mg tablet ER Take 3 tablets (3 mg) by mouth once daily. 90 tablet 11 tamsulosin (Flomax) 0.4 mg 24 hr capsule Take 1 capsule (0.4 mg) by mouth once daily. Do not crush,chew, or split. 30 capsule 3 valGANciclovir (Valcyte) 450 mg tablet Take 1 tablet (450 mg) by mouth every other day. Do not crush or chew. [DISCONTINUED] metoprolol tartrate (Lopressor) 25 mg tablet Take 1 tablet (25 mg) by mouth 2 times a day. alcohol swabs (Alcohol Pads) Use 4-8 per day to check blood glucose and for injectable medications 400 each 3 blood sugar diagnostic (Blood Glucose Test) Check blood glucose 4 time per day (Patient taking differently: if needed. Check blood glucose 4 time per day) 100 each 0 blood-glucose meter misc Use to check blood glucose (Patient taking differently: if needed. Use to check blood glucose) 1 each 0 blood-glucose sensor ([employer] G7 Sensor) device Use to check glucose, change every 10 days 9 each 11 clotrimazole (Mycelex) 10 mg amanda Use 1 tablet (10 mg) in the mouth or throat 3 times a day aftermeals. (Patient not taking: Reported on 12/07/2024) 90 Amanda 0 glucagon 1 mg/0.2 mL solution Inject 1 mg under the skin if needed (use to treat hypoglycemia <55mg/dL which cannot be safely treated with food/drink). 0.4 mL 1 lancets 33 gauge misc Use to test blood sugar four times a day (Patient taking differently: 1 Box every 4 hours if needed.) 100 each 0 latanoprost (Xalatan) 0.005 % ophthalmic solution Administer 1 drop into affected eye(s) once dailyat bedtime. [Paused] sildenafil (Viagra) 50 mg tablet Take 1 tablet (50 mg) by mouth if needed. [DISCONTINUED] mycophenolate (Cellcept) 250 mg capsule Take 4 capsules (1,000 mg) by mouth every 12hours. 240 capsule 11 [DISCONTINUED] tacrolimus (Prograf) 1 mg capsule Take 1 capsule (1 mg) by mouth 2 times a day. 60 capsule 11 * Mariaa Dwyer MD - 12/06/2024 11:00 PM EDT Images from the original note were not included. H&P SERVICE DATE: 12/07/2024 SERVICE TIME: 9:45 AM REASON FOR CONSULT: Immunosuppressive medication management and nephrology related issues. REQUESTING PHYSICIAN: Mariaa Dwyre MD PRIMARY CARE PHYSICIAN: Ron Coronado MD ADMISSION DIAGNOSIS: 1. Hyperkalemia TRANSPLANT DATE: 10/15/2024 (Kidney) BLOOD TYPE: B HPI: Mr. Chapin is a 54 y.o. male with past medical history significant for ESRD secondary to type 1 diabetes whom received a donor kidney transplant on 10/15/24 KDPI of 40% and PRA of 22%. Donor was Hepc - / - and has not met risk factors. EBV +/+. Right donor kidney transplanted to patient right pelvis. Dry weight is 65 kg . Pt received a total of 4.5 mg/kg total of thymoglobulin induction therapy in conjunction with 500mg IV solumedrol. Pt was initiated on Tacrolimus & Cellcept immunosuppression in conjunction with IV solumedrol taper. Pt was started on valcyte (CMV D + / R + ) and bactrim for CMV & PCP prophylaxis per protocol. He was started on clotrimazole as antifungal coverage per protocol. Operative course was uncomplicated. Hospital course was uncomplicated. Pt with DGF and had a kidney biopsy done on 11/23/24, showed ATN and borderline rejection. He was admitted for IV steroid pulse. Then discharged on outpt HD. Last treatment was on 11/30/24. Then dialysis has been held given down trending Cr. Noted K from lab on 12/02 was 6 (mild hemolysis). Mr. Chapin did lab today and K went up to 6+, has diarrhea watery 3-4 times and was directed to ED [facility] where lab showed K of 7 with EKG changes. I discussed with ED provider, Lead Nurse there and transfer center. Patient received medical management and repeat K was 6.1. Then he was transferred to [facility]. Noted glucose was high and bicarb was low upon presentation at ED [facility]. REVIEW OF SYSTEM: Review of system was done system by system (03/22). Apart from HPI, other symptoms were negative. PAST MEDICAL HISTORY: Medical History[1] PAST SURGICAL HISTORY: Surgical History[2] SOCIAL HISTORY: Social History Socioeconomic History Marital status: Single Spouse name: Not on file Number of children: Not on file Years of education: Not on file Highest education level: Not on file Occupational History Not on file Tobacco Use Smoking status: Former Types: Cigarettes Start date: 2013 Smokeless tobacco: Never Substance and Sexual Activity Alcohol use: Not Currently Drug use: Yes Types: Marijuana Sexual activity: Not on file Other Topics Concern Not on file Social History Narrative Not on file Social Drivers of Health Financial Resource Strain: Low Risk (12/07/2024) Overall Financial Resource Strain (CARDIA) Difficulty of Paying Living Expenses: Not very hard Food Insecurity: No Food Insecurity (12/07/2024) Hunger Vital Sign Worried About Running Out of Food in the Last Year: Never true Ran Out of Food in the Last Year: Never true Transportation Needs: No Transportation Needs (12/07/2024) PRAPARE - Transportation Lack of Transportation (Medical): No Lack of Transportation (Non-Medical): No Physical Activity: Patient Declined (12/07/2024) Exercise Vital Sign Days of Exercise per Week: Patient declined Minutes of Exercise per Session: Patient declined Stress: No Stress Concern Present (12/07/2024) [employer] [place] [employer] - Occupational Stress Questionnaire Feeling of Stress : Not at all Social Connections: Patient Unable To Answer (12/07/2024) Social Connection and Isolation Panel [NHANES] Frequency of Communication with Friends and Family: Patient unable to answer Frequency of Social Gatherings with Friends and Family: Patient unable to answer Attends Anabaptism Services: Patient unable to answer Active Member of Clubs or Organizations: Patient unable to answer Attends Club or Organization Meetings: Patient unable to answer Marital Status: Patient unable to answer Intimate Partner Violence: Not At Risk (12/07/2024) Humiliation, Afraid, Rape, and Kick questionnaire Fear of Current or Ex-Partner: No Emotionally Abused: No Physically Abused: No Sexually Abused: No Housing Stability: Low Risk (12/07/2024) Housing Stability Vital Sign Unable to Pay for Housing in the Last Year: No Number of Times Moved in the Last Year: 0 Homeless in the Last Year: No FAMILY HISTORY: Family History[3] MEDICATION LIST: amLODIPine, 5 mg, Daily aspirin, 81 mg, Daily atorvastatin, 40 mg, Daily calcitriol, 0.25 mcg, Daily carvedilol, 25 mg, BID heparin, 5,000 Units, q8h insulin glargine, 10 Units, q AM insulin lispro, 0-5 Units, q4h mycophenolate, 360 mg, q12h AMBER predniSONE, 10 mg, Daily sodium zirconium cyclosilicate, 10 g, Daily tacrolimus ER, 3 mg, Daily tamsulosin, 0.4 mg, Daily valGANciclovir, 450 mg, Every other day acetaminophen, 650 mg, q6h PRN dextrose, 12.5 g, q15 min PRN dextrose, 12.5 g, q15 min PRN dextrose, 25 g, q15 min PRN glucagon, 1 mg, q15 min PRN glucagon, 1 mg, q15 min PRN glucagon, 1 mg, q15 min PRN ALLERGY: Allergies[4] PHYCISCAL EXAMINATION: Visit Vitals BP (!) 145/91 (BP Location: Right arm, Patient Position: Lying) Pulse 83 Temp 37.1 C (98.8 F) (Temporal) Resp 16 Ht 1.905 m (6' 3) Wt 56.8 kg (125 lb 4.8 oz) SpO2 100% BMI 15.66 kg/m Smoking Status Former BSA 1.73 m 12/05 1899 - 12/07 0659 In: 1800 [I.V.:400] Out: 600 [Urine:350] General Appearance - NAD, Good speech, oriented and alert HEENT - Supple. Not pale. No jaundice. No cervical lymphadenopathy. Pharynx and tonsils are not injected. CVS - RRR. Normal S1/S2. No murmur, click , rub or gallop Lungs- clear to auscultation bilaterally Abdomen - soft , not tender, no guarding, no rigidity. No hepatosplenomegaly. Normal bowel sounds. No masses and ascites. S/P Kidney transplant . Transplanted kidney is not tender. Musculoskeletal /Extremities - no edema. Full ROM. No joint tenderness. Neuro/Psych - appropriate mood and affect. Motor power V/V all extremities. CN I -XII were grossly intact. Skin - No visible rash LABS: Results for orders placed or performed during the hospital encounter of 12/06/24 (from the past 24 hours) POCT GLUCOSE Result Value Ref Range POCT Glucose 288 (H) 74 - 99 mg/dL Urinalysis with Reflex Microscopic Result Value Ref Range Color, Urine Colorless (N) Light-Yellow, Yellow, Dark-Yellow Appearance, Urine Clear Clear Specific [place], Urine 1.009 1.005 - 1.035 pH, Urine 6.0 5.0, 5.5, 6.0, 6.5, 7.0, 7.5, 8.0 Protein, Urine NEGATIVE NEGATIVE, 10 (TRACE), 20 (TRACE) mg/dL Glucose, Urine 200 (2+) (A) Normal mg/dL Blood, Urine 0.03 (TRACE) (A) NEGATIVE mg/dL Ketones, Urine NEGATIVE NEGATIVE mg/dL Bilirubin, Urine NEGATIVE NEGATIVE mg/dL Urobilinogen, Urine Normal Normal mg/dL Nitrite, Urine NEGATIVE NEGATIVE Leukocyte Esterase, Urine NEGATIVE NEGATIVE Microscopic Only, Urine Result Value Ref Range WBC, Urine NONE 1-5, NONE /HPF RBC, Urine 6-10 (A) NONE, 1-2, 3-5 /HPF Hyaline Casts, Urine OCCASIONAL (A) NONE /LPF POCT GLUCOSE Result Value Ref Range POCT Glucose 109 (H) 74 - 99 mg/dL Type and screen Result Value Ref Range ABO TYPE B Rh TYPE POS ANTIBODY SCREEN NEG CBC Result Value Ref Range WBC 4.5 4.4 - 11.3 x10*3/uL nRBC 0.0 0.0 - 0.0 /100 WBCs RBC 2.78 (L) 4.50 - 5.90 x10*6/uL Hemoglobin 6.8 (L) 13.5 - 17.5 g/dL Hematocrit 21.7 (L) 41.0 - 52.0 % MCV 78 (L) 80 - 100 fL MCH 24.5 (L) 26.0 - 34.0 pg MCHC 31.3 (L) 32.0 - 36.0 g/dL RDW 17.9 (H) 11.5 - 14.5 % Platelets 91 (L) 150 - 450 x10*3/uL Ferritin Result Value Ref Range Ferritin 3,218 (H) 20 - 300 ng/mL Iron and TIBC Result Value Ref Range Iron 167 (H) 35 - 150 ug/dL UIBC <55 (L) 110 - 370 ug/dL TIBC % Saturation Magnesium Result Value Ref Range Magnesium 1.62 1.60 - 2.40 mg/dL Renal Function Panel Result Value Ref Range Glucose 95 74 - 99 mg/dL Sodium 141 136 - 145 mmol/L Potassium 3.1 (L) 3.5 - 5.3 mmol/L Chloride 103 98 - 107 mmol/L Bicarbonate 28 21 - 32 mmol/L Anion Gap 13 10 - 20 mmol/L Urea Nitrogen 48 (H) 6 - 23 mg/dL Creatinine 2.04 (H) 0.50 - 1.30 mg/dL eGFR 38 (L) >60 mL/min/1.73m*2 Calcium 8.3 (L) 8.6 - 10.6 mg/dL Phosphorus 3.3 2.5 - 4.9 mg/dL Albumin 3.3 (L) 3.4 - 5.0 g/dL POCT GLUCOSE Result Value Ref Range POCT Glucose 74 74 - 99 mg/dL ASSESSMENT AND PLAN: 54 y/o male with a hx of ESRD secondary to type 1 diabetes whom received a donor kidney transplant on 10/15/24 KDPI of 40% and PRA of 22%. Donor was Hepc - / - and has not met risk factors. EBV +/+. Right donor kidney transplanted to patient right pelvis. Dry weight is 65 kg . Pt received a total of 4.5 mg/kg total of thymoglobulin induction therapy in conjunction with 500mg IV solumedrol.Pt was initiated on Tacrolimus & Cellcept immunosuppression in conjunction with IV solumedrol taper. Pt was started on valcyte (CMV D + / R + ) and bactrim for CMV & PCP prophylaxis per protocol. He was started on clotrimazole as antifungal coverage per protocol. Operative course was uncompl icated. Hospital course was uncomplicated. Pt with DGF and had a kidney biopsy done on 11/23/24, showed ATN and borderline rejection. He was admitted for IV steroid pulse. Then discharged on outpt HD. Last treatment was on 11/30/24. Then dialysis has been held given down trending Cr. Noted K from lab on 12/02 was 6 (mild hemolysis). Mr. Chapin did lab today and K went up to 6+, has diarrhea watery 3-4 times and was directed to ED [facility] where lab showed K of 7 with EKG changes. I discussed with ED provider, Lead Nurse there and transfer center. Patient received medical management and repeat K was 6.1. Then he was transferred to [facility]. Noted glucose was high and bicarb was low upon presentation at ED [facility]. Transplant nephrology is consulted to assist with immunosuppressive medication management and nephrology related issues. HyperK : secondary to hyperglycemia and acidosis Emergent HD stat x 2 HOURS, 1K/2.25 Ca WITHOUT fluid removal. Would place him on Lokelma 10 gram daily HOLD Bactrim SS Maintain on Bicarb PO Hyperglycemia/ DM and on steroid Check glucose, resume insulin, consult ENDO in am Send UA with reflex to rule out UTI Diarrhea Stool pathogen CMV PLASMA PCR in am Check C. Diff IV fluid after HD Immunosuppression Reduce prednisone to 10 mg tomorrow Switch MMF to Myfortic 360 mg bid, starting tomorrow Given his tac level from am was <2, I will give tacrolimus IR 2 MG X one stat. Then resume Envarsus xr 3 mg daily tomorrow. Monitor tac trough level Would send allosure in am Anemia Send iron studies, ferritin in am Prophylaxis PPI Valcyte renally dose Bactrim SS- HOLD Clotrimazole Subcut heparin Seen and discussed at multi disciplinary round with niraj Calderonp pharmacist, residents Mariaa Dwyer MD [1] Past Medical History: Diagnosis Date CKD (chronic kidney disease) stage 4, GFR 15-29 ml/min (Multi) Diabetes mellitus (Multi) Hypertension [2] Past Surgical History: Procedure Laterality Date CARDIAC CATHETERIZATION N/A 12/08/2023 Procedure: Left Heart Cath; Surgeon: Janet Jiménez MD; Location: [place] [address] 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 Prior NSTEMI/PCI (2019). Currently asymptomatic. Patient available any day of the week. Please call to schedule (via [employer] if needed). TOE AMPUTATION Right 2015 [3] Family History Problem Relation Name Age of Onset Diabetes Mother Diabetes Maternal Grandmother [4] No Known Allergies documented in this [facility] Work Phone: [phone]) 585-798407-01-2025 Consult note* Mariaa Dwyer MD - 12/07/2024 12:08 AM EDT Images from the original note were not included. H&P SERVICE DATE: 12/06/2024 SERVICE TIME: 11:52 PM REASON FOR CONSULT: Immunosuppressive medication management and nephrology related issues. REQUESTING PHYSICIAN: Mariaa Dwyer MD PRIMARY CARE PHYSICIAN: Ron Coronado MD ADMISSION DIAGNOSIS: 1. Hyperkalemia TRANSPLANT DATE: 10/15/2024 (Kidney) BLOOD TYPE: B HPI: Mr. Chapin is a 54 y.o. male with past medical history significant for ESRD secondary to type 1 diabetes whom received a donor kidney transplant on 10/15/24 KDPI of 40% and PRA of 22%. Donor was Hepc - / - and has not met risk factors. EBV +/+. Right donor kidney transplanted to patient right pelvis. Dry weight is 65 kg . Pt received a total of 4.5 mg/kg total of thymoglobulin induction therapy in conjunction with 500mg IV solumedrol. Pt was initiated on Tacrolimus & Cellcept immunosuppression in conjunction with IV solumedrol taper. Pt was started on valcyte (CMV D + / R + ) and bactrim for CMV & PCP prophylaxis per protocol. He was started on clotrimazole as antifungal coverage per protocol. Operative course was uncomplicated. Hospital course was uncomplicated. Pt with DGF and had a kidney biopsy done on 11/23/24, showed ATN and borderline rejection. He was admitted for IV steroid pulse. Then discharged on outpt HD. Last treatment was on 11/30/24. Then dialysis has been held given down trending Cr. Noted K from lab on 12/02 was 6 (mild hemolysis). Mr. Chapin did lab today and K went up to 6+, has diarrhea watery 3-4 times and was directed to ED [facility] where lab showed K of 7 with EKG changes. I discussed with ED provider, Lead Nurse there and transfer center. Patient received medical management and repeat K was 6.1. Then he was transferred to [facility]. Noted glucose was high and bicarb was low upon presentation at ED [facility]. REVIEW OF SYSTEM: Review of system was done system by system (03/22). Apart from HPI, other symptoms were negative. PAST MEDICAL HISTORY: Medical History[1] PAST SURGICAL HISTORY: Surgical History[2] SOCIAL HISTORY: Social History Socioeconomic History Marital status: Single Spouse name: Not on file Number of children: Not on file Years of education: Not on file Highest education level: Not on file Occupational History Not on file Tobacco Use Smoking status: Former Types: Cigarettes Start date: 2013 Smokeless tobacco: Never Substance and Sexual Activity Alcohol use: Not Currently Drug use: Yes Types: Marijuana Sexual activity: Not on file Other Topics Concern Not on file Social History Narrative Not on file Social Drivers of Health Financial Resource Strain: Low Risk (11/25/2024) Overall Financial Resource Strain (CARDIA) Difficulty of Paying Living Expenses: Not very hard Food Insecurity: No Food Insecurity (11/24/2024) Hunger Vital Sign Worried About Running Out of Food in the Last Year: Never true Ran Out of Food in the Last Year: Never true Transportation Needs: No Transportation Needs (11/25/2024) PRAPARE - Transportation Lack of Transportation (Medical): No Lack of Transportation (Non-Medical): No Physical Activity: Sufficiently Active (11/24/2024) Exercise Vital Sign Days of Exercise per Week: 3 days Minutes of Exercise per Session: 60 min Stress: No Stress Concern Present (11/24/2024) [employer] [place] [employer] - Occupational Stress Questionnaire Feeling of Stress : Not at all Social Connections: Feeling Socially Integrated (10/26/2024) OASIS D0700: Social Isolation Frequency of experiencing loneliness or isolation: Never Intimate Partner Violence: Not At Risk (11/24/2024) Humiliation, Afraid, Rape, and Kick questionnaire Fear of Current or Ex-Partner: No Emotionally Abused: No Physically Abused: No Sexually Abused: No Housing Stability: Low Risk (11/25/2024) Housing Stability Vital Sign Unable to Pay for Housing in the Last Year: No Number of Times Moved in the Last Year: 0 Homeless in the Last Year: No FAMILY HISTORY: Family History[3] MEDICATION LIST: [START ON 12/07/2024] amLODIPine, 5 mg, Daily [START ON 12/07/2024] aspirin, 81 mg, Daily [START ON 12/07/2024] atorvastatin, 40 mg, Daily [START ON 12/07/2024] calcitriol, 0.25 mcg, Daily [START ON 12/07/2024] carvedilol, 25 mg, BID [START ON 12/07/2024] insulin glargine, 10 Units, q AM [START ON 12/07/2024] insulin lispro, 0-5 Units, TID AC [START ON 12/07/2024] mycophenolate, 750 mg, q12h [START ON 12/07/2024] predniSONE, 20 mg, Daily [START ON 12/07/2024] sodium zirconium cyclosilicate, 10 g, Daily [START ON 12/07/2024] sulfamethoxazole-trimethoprim, 1 tablet, Daily [START ON 12/07/2024] tacrolimus, 2 mg, Once [START ON 12/07/2024] tacrolimus ER, 3 mg, Daily [START ON 12/07/2024] tamsulosin, 0.4 mg, Daily [START ON 12/07/2024] valGANciclovir, 450 mg, Every other day acetaminophen, 487.5 mg, q6h PRN dextrose, 12.5 g, q15 min PRN dextrose, 12.5 g, q15 min PRN dextrose, 25 g, q15 min PRN glucagon, 1 mg, q15 min PRN glucagon, 1 mg, q15 min PRN glucagon, 1 mg, q15 min PRN ALLERGY: Allergies[4] PHYCISCAL EXAMINATION: Visit Vitals BP 104/67 (BP Location: Right arm, Patient Position: Sitting) Pulse 92 Temp 35.6 C (96.1 F) (Temporal) Resp 16 Ht 1.905 m (6' 3) Wt 56.8 kg (125 lb 4.8 oz) SpO2 100% BMI 15.66 kg/m Smoking Status Former BSA 1.73 m No intake/output data recorded. General Appearance - NAD, Good speech, oriented and alert HEENT - Supple. Not pale. No jaundice. No cervical lymphadenopathy. Pharynx and tonsils are not injected. CVS - RRR. Normal S1/S2. No murmur, click , rub or gallop Lungs- clear to auscultation bilaterally Abdomen - soft , not tender, no guarding, no rigidity. No hepatosplenomegaly. Normal bowel sounds. No masses and ascites. S/P Kidney transplant . Transplanted kidney is not tender. Musculoskeletal /Extremities - no edema. Full ROM. No joint tenderness. Neuro/Psych - appropriate mood and affect. Motor power V/V all extremities. CN I -XII were grossly intact. Skin - No visible rash LABS: Results for orders placed or performed during the hospital encounter of 12/06/24 (from the past 24 hours) POCT GLUCOSE Result Value Ref Range POCT Glucose 288 (H) 74 - 99 mg/dL ASSESSMENT AND PLAN: 54 y/o male with a hx of ESRD secondary to type 1 diabetes whom received a donor kidney transplant on 10/15/24 KDPI of 40% and PRA of 22%. Donor was Hepc - / - and has not met risk factors. EBV +/+. Right donor kidney transplanted to patient right pelvis. Dry weight is 65 kg . Pt received a total of 4.5 mg/kg total of thymoglobulin induction therapy in conjunction with 500mg IV solumedrol.Pt was initiated on Tacrolimus & Cellcept immunosuppression in conjunction with IV solumedrol taper. Pt was started on valcyte (CMV D + / R + ) and bactrim for CMV & PCP prophylaxis per protocol. He was started on clotrimazole as antifungal coverage per protocol. Operative course was uncompl icated. Hospital course was uncomplicated. Pt with DGF and had a kidney biopsy done on 11/23/24, showed ATN and borderline rejection. He was admitted for IV steroid pulse. Then discharged on outpt HD. Last treatment was on 11/30/24. Then dialysis has been held given down trending Cr. Noted K from lab on 12/02 was 6 (mild hemolysis). Mr. Chapin did lab today and K went up to 6+, has diarrhea watery 3-4 times and was directed to ED [facility] where lab showed K of 7 with EKG changes. I discussed with ED provider, Lead Nurse there and transfer center. Patient received medical management and repeat K was 6.1. Then he was transferred to [facility]. Noted glucose was high and bicarb was low upon presentation at ED [facility]. Transplant nephrology is consulted to assist with immunosuppressive medication management and nephrology related issues. HyperK : secondary to hyperglycemia and acidosis Emergent HD stat x 2 HOURS, 1K/2.25 Ca WITHOUT fluid removal. Would place him on Lokelma 10 gram daily HOLD Bactrim SS Maintain on Bicarb PO Hyperglycemia/ DM and on steroid Check glucose, resume insulin, consult ENDO in am Send UA with reflex to rule out UTI Diarrhea Stool pathogen CMV PLASMA PCR in am Check C. Diff IV fluid after HD Immunosuppression Reduce prednisone to 10 mg tomorrow Switch MMF to Myfortic 360 mg bid, starting tomorrow Given his tac level from am was <2, I will give tacrolimus IR 2 MG X one stat. Then resume Envarsus xr 3 mg daily tomorrow. Monitor tac trough level Would send allosure in am Anemia Send iron studies, ferritin in am Prophylaxis PPI Valcyte renally dose Bactrim SS- HOLD Clotrimazole Subcut heparin Seen and discussed at multi disciplinary round with Dr. 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 Prior NSTEMI/PCI (2019). Currently asymptomatic. Patient available any day of the week. Please call to schedule (via [employer] if needed). TOE AMPUTATION Right 2015 [3] Family History Problem Relation Name Age of Onset Diabetes Mother Diabetes Maternal Grandmother [4] No Known Allergies Cosigned by Nathan Lizarraga MD at 12/08/2024 1:47 PM EDT [facility] Work Phone: [phone]) [phone] Plan of care note* Care Plan - rBidget Martinez RN - 12/06/2024 11:16 PM EDT The patient's goals for the shift include Rest The clinical goals for the shift include Patient will remain HDS during this shift. Problem: Pain - Adult Goal: Verbalizes/displays adequate comfort level or baseline comfort level Outcome: Progressing Problem: Safety - Adult Goal: Free from fall injury Outcome: Progressing Problem: Discharge Planning Goal: Discharge to home or other facility with appropriate resources Outcome: Progressing Problem: Chronic Conditions and Co-morbidities Goal: Patient's chronic conditions and co-morbidity symptoms are monitored and maintained or improved Outcome: Progressing Problem: Nutrition Goal: Nutrient intake appropriate for maintaining nutritional needs Outcome: Progressing [facility]06-30-2025 Consult note* Maraia Dwyer MD - 12/06/2024 11:00 PM EDT Images from the original note were not included. INPATIENT INITIAL TRANSPLANT NEPHROLOGY CONSULT SERVICE DATE: 12/07/2024 SERVICE TIME: 12:04 AM REASON FOR CONSULT: Immunosuppressive medication management and nephrology related issues. REQUESTING PHYSICIAN: Mariaa Dwyer MD PRIMARY CARE PHYSICIAN: Ron Coronado MD ADMISSION DIAGNOSIS: 1. Hyperkalemia TRANSPLANT DATE: 10/15/2024 (Kidney) BLOOD TYPE: B HPI: Mr. Chapin is a 54 y.o. male with past medical history significant for ESRD secondary to type 1 diabetes whom received a donor kidney transplant on 10/15/24 KDPI of 40% and PRA of 22%. Donor was Hepc - / - and has not met risk factors. EBV +/+. Right donor kidney transplanted to patient right pelvis. Dry weight is 65 kg . Pt received a total of 4.5 mg/kg total of thymoglobulin induction therapy in conjunction with 500mg IV solumedrol. Pt was initiated on Tacrolimus & Cellcept immunosuppression in conjunction with IV solumedrol taper. Pt was started on valcyte (CMV D + / R + ) and bactrim for CMV & PCP prophylaxis per protocol. He was started on clotrimazole as antifungal coverage per protocol. Operative course was uncomplicated. Hospital course was uncomplicated. Pt with DGF and had a kidney biopsy done on 11/23/24, showed ATN and borderline rejection. He was admitted for IV steroid pulse. Then discharged on outpt HD. Last treatment was on 11/30/24. Then dialysis has been held given down trending Cr. Noted K from lab on 12/02 was 6 (mild hemolysis). Mr. Chapin did lab today and K went up to 6+, has diarrhea watery 3-4 times and was directed to ED [facility] where lab showed K of 7 with EKG changes. I discussed with ED provider, Lead Nurse there and transfer center. Patient received medical management and repeat K was 6.1. Then he was transferred to [facility]. Noted glucose was high and bicarb was low upon presentation at ED [facility]. REVIEW OF SYSTEM: Review of system was done system by system (03/22). Apart from HPI, other symptoms were negative. PAST MEDICAL HISTORY: Medical History[1] PAST SURGICAL HISTORY: Surgical History[2] SOCIAL HISTORY: Social History Socioeconomic History Marital status: Single Spouse name: Not on file Number of children: Not on file Years of education: Not on file Highest education level: Not on file Occupational History Not on file Tobacco Use Smoking status: Former Types: Cigarettes Start date: 2013 Smokeless tobacco: Never Substance and Sexual Activity Alcohol use: Not Currently Drug use: Yes Types: Marijuana Sexual activity: Not on file Other Topics Concern Not on file Social History Narrative Not on file Social Drivers of Health Financial Resource Strain: Low Risk (11/25/2024) Overall Financial Resource Strain (CARDIA) Difficulty of Paying Living Expenses: Not very hard Food Insecurity: No Food Insecurity (11/24/2024) Hunger Vital Sign Worried About Running Out of Food in the Last Year: Never true Ran Out of Food in the Last Year: Never true Transportation Needs: No Transportation Needs (11/25/2024) PRAPARE - Transportation Lack of Transportation (Medical): No Lack of Transportation (Non-Medical): No Physical Activity: Sufficiently Active (11/24/2024) Exercise Vital Sign Days of Exercise per Week: 3 days Minutes of Exercise per Session: 60 min Stress: No Stress Concern Present (11/24/2024) [employer] [place] [employer] - Occupational Stress Questionnaire Feeling of Stress : Not at all Social Connections: Feeling Socially Integrated (10/26/2024) OASIS D0700: Social Isolation Frequency of experiencing loneliness or isolation: Never Intimate Partner Violence: Not At Risk (11/24/2024) Humiliation, Afraid, Rape, and Kick questionnaire Fear of Current or Ex-Partner: No Emotionally Abused: No Physically Abused: No Sexually Abused: No Housing Stability: Low Risk (11/25/2024) Housing Stability Vital Sign Unable to Pay for Housing in the Last Year: No Number of Times Moved in the Last Year: 0 Homeless in the Last Year: No FAMILY HISTORY: Family History[3] MEDICATION LIST: amLODIPine, 5 mg, Daily aspirin, 81 mg, Daily atorvastatin, 40 mg, Daily calcitriol, 0.25 mcg, Daily carvedilol, 25 mg, BID heparin, 5,000 Units, q8h insulin glargine, 10 Units, q AM insulin lispro, 0-5 Units, q4h mycophenolate, 360 mg, BID predniSONE, 10 mg, Daily sodium zirconium cyclosilicate, 10 g, Daily tacrolimus, 2 mg, Once tacrolimus, 2 mg, Once tacrolimus ER, 3 mg, Daily tamsulosin, 0.4 mg, Daily valGANciclovir, 450 mg, Every other day acetaminophen, 650 mg, q6h PRN dextrose, 12.5 g, q15 min PRN dextrose, 12.5 g, q15 min PRN dextrose, 25 g, q15 min PRN glucagon, 1 mg, q15 min PRN glucagon, 1 mg, q15 min PRN glucagon, 1 mg, q15 min PRN ALLERGY: Allergies[4] PHYCISCAL EXAMINATION: Visit Vitals BP 104/67 (BP Location: Right arm, Patient Position: Sitting) Pulse 92 Temp 35.6 C (96.1 F) (Temporal) Resp 16 Ht 1.905 m (6' 3) Wt 56.8 kg (125 lb 4.8 oz) SpO2 100% BMI 15.66 kg/m Smoking Status Former BSA 1.73 m No intake/output data recorded. General Appearance - NAD, Good speech, oriented and alert HEENT - Supple. Not pale. No jaundice. No cervical lymphadenopathy. Pharynx and tonsils are not injected. CVS - RRR. Normal S1/S2. No murmur, click , rub or gallop Lungs- clear to auscultation bilaterally Abdomen - soft , not tender, no guarding, no rigidity. No hepatosplenomegaly. Normal bowel sounds. No masses and ascites. S/P Kidney transplant . Transplanted kidney is not tender. Musculoskeletal /Extremities - no edema. Full ROM. No joint tenderness. Neuro/Psych - appropriate mood and affect. Motor power V/V all extremities. CN I -XII were grossly intact. Skin - No visible rash LABS: Results for orders placed or performed during the hospital encounter of 12/06/24 (from the past 24 hours) POCT GLUCOSE Result Value Ref Range POCT Glucose 288 (H) 74 - 99 mg/dL ASSESSMENT AND PLAN: 54 y/o male with a hx of ESRD secondary to type 1 diabetes whom received a donor kidney transplant on 10/15/24 KDPI of 40% and PRA of 22%. Donor was Hepc - / - and has not met risk factors. EBV +/+. Right donor kidney transplanted to patient right pelvis. Dry weight is 65 kg . Pt received a total of 4.5 mg/kg total of thymoglobulin induction therapy in conjunction with 500mg IV solumedrol.Pt was initiated on Tacrolimus & Cellcept immunosuppression in conjunction with IV solumedrol taper. Pt was started on valcyte (CMV D + / R + ) and bactrim for CMV & PCP prophylaxis per protocol. He was started on clotrimazole as antifungal coverage per protocol. Operative course was uncompl icated. Hospital course was uncomplicated. Pt with DGF and had a kidney biopsy done on 11/23/24, showed ATN and borderline rejection. He was admitted for IV steroid pulse. Then discharged on outpt HD. Last treatment was on 11/30/24. Then dialysis has been held given down trending Cr. Noted K from lab on 12/02 was 6 (mild hemolysis). Mr. Chapin did lab today and K went up to 6+, has diarrhea watery 3-4 times and was directed to ED [facility] where lab showed K of 7 with EKG changes. I discussed with ED provider, Lead Nurse there and transfer center. Patient received medical management and repeat K was 6.1. Then he was transferred to [facility]. Noted glucose was high and bicarb was low upon presentation at ED [facility]. Transplant nephrology is consulted to assist with immunosuppressive medication management and nephrology related issues. HyperK : secondary to hyperglycemia and acidosis Emergent HD stat x 2 HOURS, 1K/2.25 Ca WITHOUT fluid removal. Would place him on Lokelma 10 gram daily HOLD Bactrim SS Maintain on Bicarb PO Hyperglycemia/ DM and on steroid Check glucose, resume insulin, consult ENDO in am Send UA with reflex to rule out UTI Diarrhea Stool pathogen CMV PLASMA PCR in am Check C. Diff IV fluid after HD Immunosuppression Reduce prednisone to 10 mg tomorrow Switch MMF to Myfortic 360 mg bid, starting tomorrow Given his tac level from am was <2, I will give tacrolimus IR 2 MG X one stat. Then resume Envarsus xr 3 mg daily tomorrow. Monitor tac trough level Would send allosure in am Anemia Send iron studies, ferritin in am Prophylaxis PPI Valcyte renally dose Bactrim SS- HOLD Clotrimazole Subcut heparin Seen and discussed at multi disciplinary round with zeferino Calderon pharmacist, residents Mariaa Dwyer MD [1] Past Medical History: Diagnosis Date CKD (chronic kidney disease) stage 4, GFR 15-29 ml/min (Multi) Diabetes mellitus (Multi) Hypertension [2] Past Surgical History: Procedure Laterality Date CARDIAC CATHETERIZATION N/A 12/08/2023 Procedure: Left Heart Cath; Surgeon: Janet Jiménez MD; Location: [place] [address] 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 Prior NSTEMI/PCI (2019). Currently asymptomatic. Patient available any day of the week. Please call to schedule (via [employer] if needed). TOE AMPUTATION Right 2015 [3] Family History Problem Relation Name Age of Onset Diabetes Mother Diabetes Maternal Grandmother [4] No Known Allergies [facility] Work Phone: [phone]) 551-134406-30-2025 History and physical note* Mariaa Dwyer MD - 12/06/2024 11:00 PM EDT Images from the original note were not included. H&P SERVICE DATE: 12/07/2024 SERVICE TIME: 9:45 AM REASON FOR CONSULT: Immunosuppressive medication management and nephrology related issues. REQUESTING PHYSICIAN: Mariaa Dwyer MD PRIMARY CARE PHYSICIAN: Ron Coronado MD ADMISSION DIAGNOSIS: 1. Hyperkalemia TRANSPLANT DATE: 10/15/2024 (Kidney) BLOOD TYPE: B HPI: Mr. Chapin is a 54 y.o. male with past medical history significant for ESRD secondary to type 1 diabetes whom received a donor kidney transplant on 10/15/24 KDPI of 40% and PRA of 22%. Donor was Hepc - / - and has not met risk factors. EBV +/+. Right donor kidney transplanted to patient right pelvis. Dry weight is 65 kg . Pt received a total of 4.5 mg/kg total of thymoglobulin induction therapy in conjunction with 500mg IV solumedrol. Pt was initiated on Tacrolimus & Cellcept immunosuppression in conjunction with IV solumedrol taper. Pt was started on valcyte (CMV D + / R + ) and bactrim for CMV & PCP prophylaxis per protocol. He was started on clotrimazole as antifungal coverage per protocol. Operative course was uncomplicated. Hospital course was uncomplicated. Pt with DGF and had a kidney biopsy done on 11/23/24, showed ATN and borderline rejection. He was admitted for IV steroid pulse. Then discharged on outpt HD. Last treatment was on 11/30/24. Then dialysis has been held given down trending Cr. Noted K from lab on 12/02 was 6 (mild hemolysis). Mr. Chapin did lab today and K went up to 6+, has diarrhea watery 3-4 times and was directed to ED [facility] where lab showed K of 7 with EKG changes. I discussed with ED provider, Lead Nurse there and transfer center. Patient received medical management and repeat K was 6.1. Then he was transferred to [facility]. Noted glucose was high and bicarb was low upon presentation at ED [facility]. REVIEW OF SYSTEM: Review of system was done system by system (03/22). Apart from HPI, other symptoms were negative. PAST MEDICAL HISTORY: Medical History[1] PAST SURGICAL HISTORY: Surgical History[2] SOCIAL HISTORY: Social History Socioeconomic History Marital status: Single Spouse name: Not on file Number of children: Not on file Years of education: Not on file Highest education level: Not on file Occupational History Not on file Tobacco Use Smoking status: Former Types: Cigarettes Start date: 2013 Smokeless tobacco: Never Substance and Sexual Activity Alcohol use: Not Currently Drug use: Yes Types: Marijuana Sexual activity: Not on file Other Topics Concern Not on file Social History Narrative Not on file Social Drivers of Health Financial Resource Strain: Low Risk (12/07/2024) Overall Financial Resource Strain (CARDIA) Difficulty of Paying Living Expenses: Not very hard Food Insecurity: No Food Insecurity (12/07/2024) Hunger Vital Sign Worried About Running Out of Food in the Last Year: Never true Ran Out of Food in the Last Year: Never true Transportation Needs: No Transportation Needs (12/07/2024) PRAPARE - Transportation Lack of Transportation (Medical): No Lack of Transportation (Non-Medical): No Physical Activity: Patient Declined (12/07/2024) Exercise Vital Sign Days of Exercise per Week: Patient declined Minutes of Exercise per Session: Patient declined Stress: No Stress Concern Present (12/07/2024) [employer] [place] [employer] - Occupational Stress Questionnaire Feeling of Stress : Not at all Social Connections: Patient Unable To Answer (12/07/2024) Social Connection and Isolation Panel [NHANES] Frequency of Communication with Friends and Family: Patient unable to answer Frequency of Social Gatherings with Friends and Family: Patient unable to answer Attends Anabaptism Services: Patient unable to answer Active Member of Clubs or Organizations: Patient unable to answer Attends Club or Organization Meetings: Patient unable to answer Marital Status: Patient unable to answer Intimate Partner Violence: Not At Risk (12/07/2024) Humiliation, Afraid, Rape, and Kick questionnaire Fear of Current or Ex-Partner: No Emotionally Abused: No Physically Abused: No Sexually Abused: No Housing Stability: Low Risk (12/07/2024) Housing Stability Vital Sign Unable to Pay for Housing in the Last Year: No Number of Times Moved in the Last Year: 0 Homeless in the Last Year: No FAMILY HISTORY: Family History[3] MEDICATION LIST: amLODIPine, 5 mg, Daily aspirin, 81 mg, Daily atorvastatin, 40 mg, Daily calcitriol, 0.25 mcg, Daily carvedilol, 25 mg, BID heparin, 5,000 Units, q8h insulin glargine, 10 Units, q AM insulin lispro, 0-5 Units, q4h mycophenolate, 360 mg, q12h AMBER predniSONE, 10 mg, Daily sodium zirconium cyclosilicate, 10 g, Daily tacrolimus ER, 3 mg, Daily tamsulosin, 0.4 mg, Daily valGANciclovir, 450 mg, Every other day acetaminophen, 650 mg, q6h PRN dextrose, 12.5 g, q15 min PRN dextrose, 12.5 g, q15 min PRN dextrose, 25 g, q15 min PRN glucagon, 1 mg, q15 min PRN glucagon, 1 mg, q15 min PRN glucagon, 1 mg, q15 min PRN ALLERGY: Allergies[4] PHYCISCAL EXAMINATION: Visit Vitals BP (!) 145/91 (BP Location: Right arm, Patient Position: Lying) Pulse 83 Temp 37.1 C (98.8 F) (Temporal) Resp 16 Ht 1.905 m (6' 3) Wt 56.8 kg (125 lb 4.8 oz) SpO2 100% BMI 15.66 kg/m Smoking Status Former BSA 1.73 m 12/05 1900 - 12/07 0659 In: 1800 [I.V.:400] Out: 600 [Urine:350] General Appearance - NAD, Good speech, oriented and alert HEENT - Supple. Not pale. No jaundice. No cervical lymphadenopathy. Pharynx and tonsils are not injected. CVS - RRR. Normal S1/S2. No murmur, click , rub or gallop Lungs- clear to auscultation bilaterally Abdomen - soft , not tender, no guarding, no rigidity. No hepatosplenomegaly. Normal bowel sounds. No masses and ascites. S/P Kidney transplant . Transplanted kidney is not tender. Musculoskeletal /Extremities - no edema. Full ROM. No joint tenderness. Neuro/Psych - appropriate mood and affect. Motor power V/V all extremities. CN I -XII were grossly intact. Skin - No visible rash LABS: Results for orders placed or performed during the hospital encounter of 12/06/24 (from the past 24 hours) POCT GLUCOSE Result Value Ref Range POCT Glucose 288 (H) 74 - 99 mg/dL Urinalysis with Reflex Microscopic Result Value Ref Range Color, Urine Colorless (N) Light-Yellow, Yellow, Dark-Yellow Appearance, Urine Clear Clear Specific [place], Urine 1.009 1.005 - 1.035 pH, Urine 6.0 5.0, 5.5, 6.0, 6.5, 7.0, 7.5, 8.0 Protein, Urine NEGATIVE NEGATIVE, 10 (TRACE), 20 (TRACE) mg/dL Glucose, Urine 200 (2+) (A) Normal mg/dL Blood, Urine 0.03 (TRACE) (A) NEGATIVE mg/dL Ketones, Urine NEGATIVE NEGATIVE mg/dL Bilirubin, Urine NEGATIVE NEGATIVE mg/dL Urobilinogen, Urine Normal Normal mg/dL Nitrite, Urine NEGATIVE NEGATIVE Leukocyte Esterase, Urine NEGATIVE NEGATIVE Microscopic Only, Urine Result Value Ref Range WBC, Urine NONE 1-5, NONE /HPF RBC, Urine 6-10 (A) NONE, 1-2, 3-5 /HPF Hyaline Casts, Urine OCCASIONAL (A) NONE /LPF POCT GLUCOSE Result Value Ref Range POCT Glucose 109 (H) 74 - 99 mg/dL Type and screen Result Value Ref Range ABO TYPE B Rh TYPE POS ANTIBODY SCREEN NEG CBC Result Value Ref Range WBC 4.5 4.4 - 11.3 x10*3/uL nRBC 0.0 0.0 - 0.0 /100 WBCs RBC 2.78 (L) 4.50 - 5.90 x10*6/uL Hemoglobin 6.8 (L) 13.5 - 17.5 g/dL Hematocrit 21.7 (L) 41.0 - 52.0 % MCV 78 (L) 80 - 100 fL MCH 24.5 (L) 26.0 - 34.0 pg MCHC 31.3 (L) 32.0 - 36.0 g/dL RDW 17.9 (H) 11.5 - 14.5 % Platelets 91 (L) 150 - 450 x10*3/uL Ferritin Result Value Ref Range Ferritin 3,218 (H) 20 - 300 ng/mL Iron and TIBC Result Value Ref Range Iron 167 (H) 35 - 150 ug/dL UIBC <55 (L) 110 - 370 ug/dL TIBC % Saturation Magnesium Result Value Ref Range Magnesium 1.62 1.60 - 2.40 mg/dL Renal Function Panel Result Value Ref Range Glucose 95 74 - 99 mg/dL Sodium 141 136 - 145 mmol/L Potassium 3.1 (L) 3.5 - 5.3 mmol/L Chloride 103 98 - 107 mmol/L Bicarbonate 28 21 - 32 mmol/L Anion Gap 13 10 - 20 mmol/L Urea Nitrogen 48 (H) 6 - 23 mg/dL Creatinine 2.04 (H) 0.50 - 1.30 mg/dL eGFR 38 (L) >60 mL/min/1.73m*2 Calcium 8.3 (L) 8.6 - 10.6 mg/dL Phosphorus 3.3 2.5 - 4.9 mg/dL Albumin 3.3 (L) 3.4 - 5.0 g/dL POCT GLUCOSE Result Value Ref Range POCT Glucose 74 74 - 99 mg/dL ASSESSMENT AND PLAN: 54 y/o male with a hx of ESRD secondary to type 1 diabetes whom received a donor kidney transplant on 10/15/24 KDPI of 40% and PRA of 22%. Donor was Hepc - / - and has not met risk factors. EBV +/+. Right donor kidney transplanted to patient right pelvis. Dry weight is 65 kg . Pt received a total of 4.5 mg/kg total of thymoglobulin induction therapy in conjunction with 500mg IV solumedrol.Pt was initiated on Tacrolimus & Cellcept immunosuppression in conjunction with IV solumedrol taper. Pt was started on valcyte (CMV D + / R + ) and bactrim for CMV & PCP prophylaxis per protocol. He was started on clotrimazole as antifungal coverage per protocol. Operative course was uncompl icated. Hospital course was uncomplicated. Pt with DGF and had a kidney biopsy done on 11/23/24, showed ATN and borderline rejection. He was admitted for IV steroid pulse. Then discharged on outpt HD. Last treatment was on 11/30/24. Then dialysis has been held given down trending Cr. Noted K from lab on 12/02 was 6 (mild hemolysis). Mr. Chapin did lab today and K went up to 6+, has diarrhea watery 3-4 times and was directed to ED [facility] where lab showed K of 7 with EKG changes. I discussed with ED provider, Lead Nurse there and transfer center. Patient received medical management and repeat K was 6.1. Then he was transferred to [facility]. Noted glucose was high and bicarb was low upon presentation at ED [facility]. Transplant nephrology is consulted to assist with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 hyperparathyroidism of renal origin (Multi) Shortness of breath Sprain of knee Diabetes mellitus due to underlying condition with diabetic chronic kidney disease Type 1 diabetes mellitus Unspecified glaucoma(365.9) Unspecified protein-calorie malnutrition (Multi) Vitamin D deficiency, unspecified Vitamin D deficiency 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 Preoperative cardiovascular examination ESRD (end stage renal disease) (Multi) Delayed graft function of kidney ([facility]) Elevated serum creatinine Type 1 diabetes mellitus with hyperglycemia (Multi) * Care Plan - Elisha Quezada RN - 11/25/2024 10:25 AM EDT The patient's goals for the shift include resting. The clinical goals for the shift include patient will remain HDS throughout this shift. Over the shift, the patient did make progress towards his goals, remained stable throughout the shift and was able to obtain rest. documented in this [facility] Work Phone: [phone] [phone] History of Present illness Narrative* Geovanna Brothers MD - 11/27/2024 9:31 AM EDT Images from the original note were not included. TRANSPLANT SURGERY PROGRESS NOTE Thom Chapin underwent transplant surgery on 10/15/2024 (Kidney) and was evaluated on multidisciplinary inpatient rounds. I specifically evaluated the management of immunosuppression to ensure adequate exposure required to decrease the risk of rejection. Furthermore, I reviewed potential side effects including tremor, hyperglycemia, leukopenia, infection, and other neurologic changes. I reviewed and adjusted infectious prophylaxis based on the patients clinical condition and protocols. 24 EVENTS: Re-admit for suspicion for TCMR on Biopsy DIAGNOSIS: Kidney replaced by transplant ([facility]) Z94.0 PHYSICAL EXAMINATION: Vitals: 11/27/24 0859 BP: 119/77 Pulse: Resp: Temp: SpO2: 11/25 1900 - 11/27 0659 In: 3092.5 [P.O.:1940; I.V.:200] Out: 1989 [Urine:1090] Weight change: General Appearance - NAD, Good speech, oriented and alert Abdomen - soft , not tender, no guarding, no rigidity. No hepatosplenomegaly. Normal bowel sounds. No masses and ascites. Wound c/d/i Neuro/Psych - appropriate mood and affect. Motor power V/V all extremities. CN I -XII were grossly intact. Skin - No visible rash MEDICATION LIST: REVIEWED amLODIPine, 5 mg, Daily aspirin, 81 mg, Daily atorvastatin, 40 mg, Daily calcitriol, 0.25 mcg, Daily carvedilol, 25 mg, BID cholecalciferol, 50 mcg, Daily clotrimazole, 10 mg, TID after meals dorzolamide-timoloL, 1 drop, BID furosemide, 40 mg, Daily insulin glargine, 8 Units, Daily insulin lispro, 0-10 Units, q4h insulin lispro, 3 Units, TID AC latanoprost, 1 drop, Nightly mycophenolate, 500 mg, q12h pantoprazole, 40 mg, Daily before breakfast predniSONE, 20 mg, Daily sulfamethoxazole-trimethoprim, 1 tablet, Daily tacrolimus, 3 mg, q12h AMBER tamsulosin, 0.4 mg, Daily valGANciclovir, 450 mg, Every other day dextrose, 12.5 g, q15 min PRN dextrose, 25 g, q15 min PRN glucagon, 1 mg, q15 min PRN glucagon, 1 mg, q15 min PRN hydrALAZINE, 25 mg, q8h PRN ALLERGY: Allergies[1] LABS: Results for orders placed or performed during the hospital encounter of 11/24/24 (from the past 24 hours) POCT GLUCOSE Result Value Ref Range POCT Glucose 328 (H) 74 - 99 mg/dL Prepare RBC: 1 Units, Leukocytes Reduced (CMV reduced risk) Result Value Ref Range PRODUCT CODE [id number] Unit Number [id number] Unit ABO B Unit RH POS XM INTEP COMP Dispense Status TR Blood Expiration Date 12/01/2024 11:59:00 PM EDT PRODUCT BLOOD TYPE 7300 UNIT VOLUME 350 POCT GLUCOSE Result Value Ref Range POCT Glucose 104 (H) 74 - 99 mg/dL POCT GLUCOSE Result Value Ref Range POCT Glucose 192 (H) 74 - 99 mg/dL POCT GLUCOSE Result Value Ref Range POCT Glucose 178 (H) 74 - 99 mg/dL POCT GLUCOSE Result Value Ref Range POCT Glucose 205 (H) 74 - 99 mg/dL Renal Function Panel Result Value Ref Range Glucose 176 (H) 74 - 99 mg/dL Sodium 136 136 - 145 mmol/L Potassium 4.1 3.5 - 5.3 mmol/L Chloride 98 98 - 107 mmol/L Bicarbonate 30 21 - 32 mmol/L Anion Gap 12 10 - 20 mmol/L Urea Nitrogen 47 (H) 6 - 23 mg/dL Creatinine 3.39 (H) 0.50 - 1.30 mg/dL eGFR 20 (L) >60 mL/min/1.73m*2 Calcium 8.8 8.6 - 10.6 mg/dL Phosphorus 4.2 2.5 - 4.9 mg/dL Albumin 3.4 3.4 - 5.0 g/dL Magnesium Result Value Ref Range Magnesium 1.91 1.60 - 2.40 mg/dL CBC Result Value Ref Range WBC 6.3 4.4 - 11.3 x10*3/uL nRBC 0.0 0.0 - 0.0 /100 WBCs RBC 3.43 (L) 4.50 - 5.90 x10*6/uL Hemoglobin 8.7 (L) 13.5 - 17.5 g/dL Hematocrit 26.7 (L) 41.0 - 52.0 % MCV 78 (L) 80 - 100 fL MCH 25.4 (L) 26.0 - 34.0 pg MCHC 32.6 32.0 - 36.0 g/dL RDW 16.3 (H) 11.5 - 14.5 % Platelets 125 (L) 150 - 450 x10*3/uL POCT GLUCOSE Result Value Ref Range POCT Glucose 177 (H) 74 - 99 mg/dL Lab Results Component Value Date ALT 14 10/15/2024 AST 30 10/15/2024 ALKPHOS 81 10/15/2024 BILITOT 0.8 10/15/2024 amLODIPine, 5 mg, oral, Daily aspirin, 81 mg, oral, Daily atorvastatin, 40 mg, oral, Daily calcitriol, 0.25 mcg, oral, Daily carvedilol, 25 mg, oral, BID cholecalciferol, 50 mcg, oral, Daily clotrimazole, 10 mg, Mouth/Throat, TID after meals dorzolamide-timoloL, 1 drop, Both Eyes, BID furosemide, 40 mg, oral, Daily insulin glargine, 8 Units, subcutaneous, Daily insulin lispro, 0-10 Units, subcutaneous, q4h insulin lispro, 3 Units, subcutaneous, TID AC latanoprost, 1 drop, Both Eyes, Nightly mycophenolate, 500 mg, oral, q12h pantoprazole, 40 mg, oral, Daily before breakfast predniSONE, 20 mg, oral, Daily sulfamethoxazole-trimethoprim, 1 tablet, oral, Daily tacrolimus, 3 mg, oral, q12h AMBER tamsulosin, 0.4 mg, oral, Daily valGANciclovir, 450 mg, oral, Every other day ASSESSMENT AND PLAN: Mr. Chapin is a 54 y.o. male who underwent transplant surgery on 10/15/2024 (Kidney). DBD KDPI 40 PRA 22 DGF Allograft Biopsy 11/23/24: Diffuse ATN Suspicious/ Borderline TCMR Mild arterial hyalinosis, severe arteriosclerosis Low grade mesangial IgA deposits 1. Immunosuppression reviewed and adjusted Tacrolimus: current dose 3 mg BID. Plan continue Today's tacrolimus level is pending, Goal tacrolimus trough level is 8-10 Mycophenolate: Yes - 500 bid, increase to 1000/1000 (WBC) Prednisone: Yes - 20mg, Pulse IV steroid 500/250/250 - completed Outpatient Belatace[facility] conversion - after coordinator and social work eval if transportation is reliable, d/w Transplant Lead Nurse Social work and Pharmacy consults to optimize outpatient follow-up/ support and pillbox 2.Electrolyte Reviewed renal profile. DGF: Yes 4. Hypertension medications reviewed Blood Pressures 11/26/2024 2333 11/26/2024 2341 11/27/2024 0309 11/27/2024 0745 11/27/2024 0859 BP: 173/91 124/74 155/82 164/86 119/77 Continue current management 5. Transplant US with perinephric fluid, not large enough to drain but will intervene if renal function not improving with rejection treatment 6. GI prophylaxis On PPI 7. DVT Prophylaxis SCDs Subcutaneous Heparin: Yes 8. ID prophylaxis CMV, PJP and fungal prophylaxis per [facility] Protocol Valcyte: Yes 9. Discharge planned for: today Case was presented at Multi Disciplinary team rounds Attending physician, consulting physician, pediatric social worker, pharmacist, residents and fellow were present at the meeting. Geovanna Brothers MD [1] No Known Allergies * Simone Westbrook PA-C - 11/26/2024 9:15 AM EDT Images from the original note were not included. Thom Chapin is a 54 y.o. male on day 2 of admission presenting with Elevated serum creatinine. Subjective Pt was not seen or examined as he was away from the room at the time of rounds. NPH was given at 09:30 and solumedrol was delayed until afternoon. Pt informed of plan to repeat NPH and increase ssi strength and frequency. I have reviewed histories, allergies and medications have been reviewed and there are no changes Objective - from 11/25/24 Review of Systems All other systems reviewed and are negative. Physical Exam Constitutional: Appearance: Normal appearance. He is normal weight. HENT: Head: Normocephalic and atraumatic. Nose: Nose normal. Mouth/Throat: Mouth: Mucous membranes are dry. Pharynx: Oropharynx is clear. Eyes: Extraocular Movements: Extraocular movements intact. Conjunctiva/sclera: Conjunctivae normal. Cardiovascular: Rate and Rhythm: Normal rate and regular rhythm. Pulses: Normal pulses. Heart sounds: Normal heart sounds. Pulmonary: Effort: Pulmonary effort is normal. Breath sounds: Normal breath sounds. Abdominal: General: Abdomen is flat. Bowel sounds are normal. Palpations: Abdomen is soft. Skin: General: Skin is warm and dry. Neurological: General: No focal deficit present. Mental Status: He is alert and oriented to person, place, and time. Mental status is at baseline. Psychiatric: Mood and Affect: Mood normal. Behavior: Behavior normal. Thought Content: Thought content normal. Judgment: Judgment normal. Last Recorded Vitals Blood pressure 136/71, pulse 77, temperature 36 C (96.8 F), temperature source Temporal, resp. rate14, height 1.905 m (6' 3), weight 57.8 kg (127 lb 6.8 oz), SpO2 99%. Intake/Output last 3 Shifts: I/O last 3 completed shifts: In: 1350 (23.1 mL/kg) [P.O.:1350] Out: - (0 mL/kg) Weight: 58.4 kg Relevant Results Results from last 7 days Lab Units 11/26/24 0733 11/26/24 0519 11/26/24 0335 11/25/24 2349 11/25/24 1934 11/25/24 1851 11/25/24 0800 11/25/24 0236 11/25/24 0235 11/24/24 1246 11/22/24 0737 POCT GLUCOSE mg/dL 219* -- 205* 293* 253* 263* < > -- < > -- -- GLUCOSE mg/dL -- 239* -- -- -- -- -- 365* -- 61* 133* < > = values in this interval not displayed. Assessment & Plan Elevated serum creatinine Type 1 diabetes mellitus with hyperglycemia (Multi) DM1 with steroid induced hyperglycemia in setting of kidney allograft rejection History Of Present Illness Thom Chapin is a 54 y.o. 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 Brothers. 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 He previously was making about 1 L of UOP each day but feels that this has slowed down in the last1 week and he is only dribbling urine. He feels that he is completely voiding when he does void. Nochanges in BM habits. No changes in his appetite. He is consistent with taking his immunosuppression. No chest pain, SOB, fevers or chills. No abd pain, diarrhea or constipation. No other complaints at this time. He underwent IR biopsy of kidney on 11/23 and was notified today that the results are showing rejection thus he was direct admitted. Endocrinology consulted for DM1 with hyperglycemia, and plans to use steroid pulse for rejection Diabetes History Type of diabetes: T1D Year diagnosed or age: age 22 Hospitalizations for DKA or HHS: Patient thinks he was in DKA at time of diagnosis. No further hospitalizations for DKA Complications: nephropathy, retinopathy, PVD Seen by PCP or Endocrinology: last seen by Simone Westbrook PA-C endocrine on 11/02/24 Frequency of glucose checks: via dexcom G7 Frequency of Hypoglycemia: 0% per 30 day CGM report Hypoglycemia unawareness: yes Severe hypoglycemia requiring assistance from others: Yes, several occasions. Last event about 2 years ago Home Medications Basal: basaglar 8 units every morning Prandial: lispro 3u ACTID Correction: lispro 1u:50>150mg/dL CGM: dexcom G7 Previous meds: was on an insulin pump - stopped due to difficulty carb counting and entering appropriate information (per [facility] endo note from 2 years ago) Humalog in the past, stopped due to hypoglycemia CGM INTERPRETATION: Average blood sugar 237mg/dL, glucose management indicator 9.0% Glucose less than 70 mg/dL equals 0% of time worn Glucose ranging between 70 to 180 mg/dL represented by 29% of time worn Glucose ranging greater than 180 mg/dL represented by 71% of time worn 72 hours of data reviewed in order to inform diabetes treatment plan decision making, patient is not currently at risk for recurrent hypoglycemia safety concerns Hemoglobin A1C Date/Time Value Ref Range Status 09/09/2024 11:07 AM 6.5 (H) See comment % Final PLAN Steroids: methylpred 500mg x1, methylpred 250mg x2, then pred 20mg Nutrition: PO 60g CHO/meal - continue NPH 6u with each dose of methylprednisolone, please give additional one time dose of NPH6u this afternoon to cover late methylpred - continue glargine 8u If NPO: reduce to 6u - continue lispro 3 with meals plus scale If NPO or glucose < 90: hold - adjust lispro corrective scale #2 to with meals and at bedtime, adjust to q4h if NPO or if persistently hyperglycemic >250mg/dL 70-150 = 0u 151-200 = 2u 201-250 = 4u 251-300 = 6u 301-350 = 8u 351-400 = 10u -Accuchecks (not BMP) TIDAC and QHS- kindly ensure QHS Accucheck is drawn; it is often missed - Goal BG 140-180 -Hypoglycemia protocol -Will continue to follow and titrate insulin accordingly Discharge planning: [] patient may expect to discharge home on glargine/lispro, final doses TBD by titration [x] continue dexcom G7 wear at discharge []will enroll pt in pharmacy [facility] plan program [x]follow up with Simone Westbrook PA-C as scheduled on 12/16/24 I spent 80 minutes in the professional and overall care of this patient. Simone Westbrook PA-C * Patience Roach - 11/26/2024 9:10 AM EDT Thom Chapin is a 54 y.o. male on day 2 of admission presenting with Elevated serum creatinine. Transitional Care Coordination Progress Note: Patient discussed during interdisciplinary rounds. Plan per Medical/Surgical team: Pt seen by previous TCC. Please see notes. Home Care choice for home going needs, [place] Home. No home going needs anticipated for this pt at this time. Healthy at Home ordered for RPM. Discharge disposition: Home. No home going needs anticipated for this pt at this time. Potential Barriers: None ADOD: 11/26 This TCC will continue to follow for home going needs and safe DC plan. PATIENCE ROACH * Brandi Cavanaugh MD - 11/26/2024 9:00 AM EDT Images from the original note were not included. TRANSPLANT SURGERY PROGRESS NOTE Thom Chapin underwent transplant surgery on 10/15/2024 (Kidney) and was evaluated on multidisciplinary inpatient rounds. I specifically evaluated the management of immunosuppression to ensure adequate exposure required to decrease the risk of rejection. Furthermore, I reviewed potential side effects including tremor, hyperglycemia, leukopenia, infection, and other neurologic changes. I reviewed and adjusted infectious prophylaxis based on the patients clinical condition and protocols. 24 EVENTS: Re-admit for suspicion for TCMR on Biopsy DIAGNOSIS: Kidney replaced by transplant ([facility]) Z94.0 PHYSICAL EXAMINATION: Vitals: 11/26/24 0800 BP: 136/71 Pulse: 77 Resp: 14 Temp: 36 C (96.8 F) SpO2: 99% 11/24 1900 - 11/26 0659 In: 1350 [P.O.:1350] Out: - Weight change: General Appearance - NAD, Good speech, oriented and alert Abdomen - soft , not tender, no guarding, no rigidity. No hepatosplenomegaly. Normal bowel sounds. No masses and ascites. Wound c/d/i Neuro/Psych - appropriate mood and affect. Motor power V/V all extremities. CN I -XII were grossly intact. Skin - No visible rash MEDICATION LIST: REVIEWED amLODIPine, 5 mg, Daily aspirin, 81 mg, Daily atorvastatin, 40 mg, Daily calcitriol, 0.25 mcg, Daily carvedilol, 25 mg, BID cholecalciferol, 50 mcg, Daily clotrimazole, 10 mg, TID after meals dorzolamide-timoloL, 1 drop, BID furosemide, 40 mg, Daily insulin glargine, 8 Units, Daily insulin lispro, 0-10 Units, Before meals & nightly insulin lispro, 3 Units, TID AC latanoprost, 1 drop, Nightly methylPREDNISolone sodium succinate (PF), 250 mg, Once mycophenolate, 500 mg, q12h pantoprazole, 40 mg, Daily before breakfast sulfamethoxazole-trimethoprim, 1 tablet, Daily tacrolimus, 3 mg, q12h AMBER tamsulosin, 0.4 mg, Daily valGANciclovir, 450 mg, Every other day dextrose, 12.5 g, q15 min PRN dextrose, 25 g, q15 min PRN glucagon, 1 mg, q15 min PRN glucagon, 1 mg, q15 min PRN hydrALAZINE, 25 mg, q8h PRN ALLERGY: Allergies[1] LABS: Results for orders placed or performed during the hospital encounter of 11/24/24 (from the past 24 hours) POCT GLUCOSE Result Value Ref Range POCT Glucose 464 (H) 74 - 99 mg/dL POCT GLUCOSE Result Value Ref Range POCT Glucose 393 (H) 74 - 99 mg/dL POCT GLUCOSE Result Value Ref Range POCT Glucose 263 (H) 74 - 99 mg/dL POCT GLUCOSE Result Value Ref Range POCT Glucose 253 (H) 74 - 99 mg/dL POCT GLUCOSE Result Value Ref Range POCT Glucose 293 (H) 74 - 99 mg/dL POCT GLUCOSE Result Value Ref Range POCT Glucose 205 (H) 74 - 99 mg/dL Tacrolimus Result Value Ref Range Tacrolimus 7.6 <=15.0 ng/mL Renal Function Panel Result Value Ref Range Glucose 239 (H) 74 - 99 mg/dL Sodium 135 (L) 136 - 145 mmol/L Potassium 5.0 3.5 - 5.3 mmol/L Chloride 101 98 - 107 mmol/L Bicarbonate 24 21 - 32 mmol/L Anion Gap 15 10 - 20 mmol/L Urea Nitrogen 92 (HH) 6 - 23 mg/dL Creatinine 4.97 (H) 0.50 - 1.30 mg/dL eGFR 13 (L) >60 mL/min/1.73m*2 Calcium 9.2 8.6 - 10.6 mg/dL Phosphorus 5.5 (H) 2.5 - 4.9 mg/dL Albumin 3.4 3.4 - 5.0 g/dL Magnesium Result Value Ref Range Magnesium 1.94 1.60 - 2.40 mg/dL CBC Result Value Ref Range WBC 7.4 4.4 - 11.3 x10*3/uL nRBC 0.0 0.0 - 0.0 /100 WBCs RBC 2.98 (L) 4.50 - 5.90 x10*6/uL Hemoglobin 7.1 (L) 13.5 - 17.5 g/dL Hematocrit 23.2 (L) 41.0 - 52.0 % MCV 78 (L) 80 - 100 fL MCH 23.8 (L) 26.0 - 34.0 pg MCHC 30.6 (L) 32.0 - 36.0 g/dL RDW 16.2 (H) 11.5 - 14.5 % Platelets 109 (L) 150 - 450 x10*3/uL POCT GLUCOSE Result Value Ref Range POCT Glucose 219 (H) 74 - 99 mg/dL Lab Results Component Value Date ALT 14 10/15/2024 AST 30 10/15/2024 ALKPHOS 81 10/15/2024 BILITOT 0.8 10/15/2024 ASSESSMENT AND PLAN: Mr. Chapin is a 54 y.o. male who underwent transplant surgery on 10/15/2024 (Kidney). DBD KDPI 40 PRA 22 DGF Allograft Biopsy 11/23/24: Diffuse ATN Suspicious/ Borderline TCMR Mild arterial hyalinosis, severe arteriosclerosis Low grade mesangial IgA deposits 1. Immunosuppression reviewed and adjusted Tacrolimus: current dose 3 mg BID. Plan continue Today's tacrolimus level is pending, Goal tacrolimus trough level is 8-10 Mycophenolate: Yes - 500 bid (WBC) Prednisone: Yes - Pulse IV steroid 500/250/250 - last dose today Outpatient Belatacept conversion - after coordinator and social work eval if transportation is reliable, d/w Transplant Lead Nurse Social work and Pharmacy consults to optimize outpatient follow-up/ support and pillbox 2.Electrolyte Reviewed renal profile. DGF: Yes 4. Hypertension medications reviewed Blood Pressures 11/25/2024 1812 11/25/2024 1900 11/25/2024 2343 11/26/2024 0300 11/26/2024 0800 BP: 117/67 135/81 155/82 155/90 136/71 Continue current management 5. Transplant US with perinephric fluid, not large enough to drain but will intervene if renal function not improving with rejection treatment 6. GI prophylaxis On PPI 7. DVT Prophylaxis SCDs Subcutaneous Heparin: Yes 8. ID prophylaxis CMV, PJP and fungal prophylaxis per [facility] Protocol Valcyte: Yes 9. Discharge planned for: today Case was presented at Multi Disciplinary team rounds Attending physician, consulting physician, pediatric social worker, pharmacist, residents and fellow were present at the meeting. Brandi Cavanaugh MD [1] No Known Allergies * Sebastián Botello PharmD - 11/25/2024 4:37 PM EDT Pharmacy Medication History Review Thom Chapin is a 54 y.o. male admitted for Elevated serum creatinine. Pharmacy reviewed the patient's wdurq-kn-lawfleria medications and allergies for accuracy. The list below reflects the updated DONATION WORKER list. Prior to Admission Medications Prescriptions Last Dose Informant acetaminophen (Tylenol) 500 mg tablet Self Sig: Take 1 tablet (500 mg) by mouth once daily in the morning. With daily Aspirin alcohol swabs (Alcohol Pads) Self Sig: Use 4-8 per day to check blood glucose and for injectable medications aspirin 81 mg EC tablet Self Sig: Take 1 tablet (81 mg) by mouth once daily. atorvastatin (Lipitor) 40 mg tablet Self Sig: Take 1 tablet (40 mg) by mouth once daily. blood-glucose sensor (Dexcom G7 Sensor) device Self Sig: Use to check glucose, change every 10 days calcitriol (Rocaltrol) 0.25 mcg capsule Self Sig: Take 1 capsule (0.25 mcg) by mouth once daily. carvedilol (Coreg) 25 mg tablet Self Sig: Take 1 tablet (25 mg) by mouth 2 times a day. Hold for HR<60 or SBP<120 cholecalciferol (Vitamin D-3) 50 mcg (2,000 unit) capsule Self Sig: Take 1 capsule by mouth early in the morning.. clotrimazole (Mycelex) 10 mg amanda Self Sig: Use 1 tablet (10 mg) in the mouth or throat 3 times a day after meals. dorzolamide-timoloL (Cosopt) 22.3-6.8 mg/mL ophthalmic solution Self Sig: Instill 1 drop in both eyes twice a day furosemide (Lasix) 40 mg tablet Self Sig: Take 1 tablet (40 mg) by mouth once daily. glucagon 1 mg/0.2 mL solution Self Sig: Inject 1 mg under the skin if needed (use to treat hypoglycemia <55mg/dL which cannot be safely treated with food/drink). insulin aspart (NovoLOG Flexpen U-100 Insulin) 100 unit/mL (3 mL) pen Self Sig: Inject 3 Units under the skin 3 times a day before meals. Inject 2 units for breakfast, lunch,and dinner. Check blood sugar & follow sliding scale. 0 unit(s) if Blood glucose is between 71-150; 1 unit(s) for 151-200; 2 unit(s) for 201-250; 3 unit(s) for 251-300; 4 unit(s) for 301-350; 5 unit(s) for 351-400 (up to 50 units/day) insulin glargine-yfgn 100 unit/mL (3 mL) pen Self Sig: Inject 8 Units under the skin once daily in the morning. Take as directed per insulin instructions. latanoprost (Xalatan) 0.005 % ophthalmic solution Self Sig: Administer 1 drop into affected eye(s) once daily at bedtime. multivitamin tablet Self Sig: Take 1 tablet by mouth once daily. mycophenolate (Cellcept) 250 mg capsule Self Sig: Take 2 capsules (500 mg) by mouth every 12 hours. pantoprazole (ProtoNix) 40 mg EC tablet Sig: Take 1 tablet (40 mg) by mouth once daily in the morning. Take before meals. Do not crush, chew, or split. pen needle, diabetic 32 gauge x 5/32 needle Sig: Use 1 needle 4 times a day. predniSONE (Deltasone) 5 mg tablet Self Sig: Take 3 tablets (15 mg) by mouth once daily. sildenafil (Viagra) 50 mg tablet Self Sig: Take 1 tablet by mouth if needed. sulfamethoxazole-trimethoprim (Bactrim) 400-80 mg tablet Self Sig: Take 1 tablet by mouth once daily. tacrolimus (Prograf) 1 mg capsule Self Sig: Take 3 capsules (3 mg) by mouth 2 times a day. tamsulosin (Flomax) 0.4 mg 24 hr capsule Self Sig: Take 1 capsule (0.4 mg) by mouth once daily. Do not crush, chew, or split. valGANciclovir (Valcyte) 450 mg tablet Self Sig: Take 1 tablet (450 mg) by mouth every other day. Do not crush or chew. Facility-Administered Medications: None The list below reflects the updated allergy list. Please review each documented allergy for additional clarification and justification. Allergies Reviewed by Sebastián Botello PharmD on 11/25/2024 No Known Allergies Patient accepts M2B at discharge. Sources used to complete the med history include: [facility] Pharmacy dispense history Patient Interview Good historian Chart Review Care Everywhere Below are additional concerns with the patient's DONATION WORKER list. Patient is a good historian, he recalls most medications taking from memory. When prompted with drug names/ indication for remainder pt is able to identify if taking or not. Patient has medications on hand. Patient reports taking Tylenol every morning with his Aspirin. Medications ADDED: Tylenol 500 mg. Medications CHANGED: none Medications REMOVED: none Sebastián Botello PharmD Transitions of Care Pharmacist [facility] Please reach out via Secure Chat for questions, or if no response call Joobili or vocera [facility] * Sunitha Novoa - 11/25/2024 11:58 AM EDT 11/25/24 1157 Discharge Planning Living Arrangements Alone Support Systems Family members Assistance Needed None Type of Residence Private residence Number of Stairs to Enter Residence 1 Number of Stairs Within Residence 0 Do you have animals or pets at home? No Who is requesting discharge planning? Provider Home or Post Acute Services None Expected Discharge Disposition Home Does the patient need discharge transport arranged? No Financial Resource Strain How hard is it for you to pay for the very basics like food, housing, medical care, and heating? Not very Housing Stability In the last 12 months, was there a time when you were not able to pay the mortgage or rent on time?N In the past 12 months, how many times have you moved where you were living? 0 At any time in the past 12 months, were you homeless or living in a longterm (including now)? N Transportation Needs In the past 12 months, has lack of transportation kept you from medical appointments or from getting medications? no In the past 12 months, has lack of transportation kept you from meetings, work, or from getting things needed for daily living? No Patient Choice Patient / Family choosing to utilize agency / facility established prior to hospitalization No Stroke Family Assessment Stroke Family Assessment Needed No Intensity of Service Intensity of Service 0-30 min Assessment Note: Met with pt introduced myself as Transitional Bone Cooking Operator and member of the Care Transitions team for discharge planning. Pt feels safe at home, and stated was independent prior to admission. Ptdrives to luisa appiah. Pt's address, phone number and contact information were verified. Address, phone and emergency contact information verified. All questions and concerns answered. Will continue tofollow for discharge needs. PCP: Ron Coronado MD DATE OF LAST VISIT: Last seen 06/22/24 PHARMACY: Utilizes pharmacy at [id number] [place], [place] MEDICATIONS AFFORDABLE: YEs FEELS SAFE AT HOME: Yes RECENT FALLS: None EQUIPMENT USED IN HOME: None HOME O2/CPAP/NEBS: None DME SUPPLIER: N/A TRANSPORT HOME: DIABETIC/SUPPLIES NEEDED: DM1, supplies at home for BG monitoring HD SCHEDULE:N/A Sunitha Novoa RNcommunications clerk Coordinator (TCC) * Brandi Cavanaugh MD - 11/25/2024 10:24 AM EDT Images from the original note were not included. TRANSPLANT SURGERY PROGRESS NOTE Thom Chapin underwent transplant surgery on 10/15/2024 (Kidney) and was evaluated on multidisciplinary inpatient rounds. I specifically evaluated the management of immunosuppression to ensure adequate exposure required to decrease the risk of rejection. Furthermore, I reviewed potential side effects including tremor, hyperglycemia, leukopenia, infection, and other neurologic changes. I reviewed and adjusted infectious prophylaxis based on the patients clinical condition and protocols. 24 EVENTS: Re-admit for suspicion for TCMR on Biopsy DIAGNOSIS: Kidney replaced by transplant ([facility]) Z94.0 PHYSICAL EXAMINATION: Vitals: 11/25/24 0758 BP: 145/90 Pulse: 79 Resp: 18 Temp: 36.4 C (97.5 F) SpO2: 99% 11/23 1900 - 11/25 0659 In: 250 [P.O.:250] Out: - Weight change: General Appearance - NAD, Good speech, oriented and alert Abdomen - soft , not tender, no guarding, no rigidity. No hepatosplenomegaly. Normal bowel sounds. No masses and ascites. Wound c/d/i Neuro/Psych - appropriate mood and affect. Motor power V/V all extremities. CN I -XII were grossly intact. Skin - No visible rash MEDICATION LIST: REVIEWED aspirin, 81 mg, Daily atorvastatin, 40 mg, Daily calcitriol, 0.25 mcg, Daily carvedilol, 25 mg, BID clotrimazole, 10 mg, TID after meals dorzolamide-timoloL, 1 drop, BID furosemide, 40 mg, Daily insulin glargine, 8 Units, Daily insulin lispro, 0-5 Units, Before meals & nightly insulin lispro, 3 Units, TID AC insulin NPH (Isophane), 6 Units, q24h AMBER methylPREDNISolone sodium succinate (PF), 250 mg, Once mycophenolate, 500 mg, q12h pantoprazole, 40 mg, Daily before breakfast sulfamethoxazole-trimethoprim, 1 tablet, Daily tacrolimus, 3 mg, q12h AMBER tamsulosin, 0.4 mg, Daily valGANciclovir, 450 mg, Every other day dextrose, 12.5 g, q15 min PRN dextrose, 25 g, q15 min PRN glucagon, 1 mg, q15 min PRN glucagon, 1 mg, q15 min PRN ALLERGY: Allergies[1] LABS: Results for orders placed or performed during the hospital encounter of 11/24/24 (from the past 24 hours) POCT GLUCOSE Result Value Ref Range POCT Glucose 369 (H) 74 - 99 mg/dL CBC Result Value Ref Range WBC 3.6 (L) 4.4 - 11.3 x10*3/uL nRBC 0.0 0.0 - 0.0 /100 WBCs RBC 3.07 (L) 4.50 - 5.90 x10*6/uL Hemoglobin 7.4 (L) 13.5 - 17.5 g/dL Hematocrit 24.4 (L) 41.0 - 52.0 % MCV 80 80 - 100 fL MCH 24.1 (L) 26.0 - 34.0 pg MCHC 30.3 (L) 32.0 - 36.0 g/dL RDW 16.5 (H) 11.5 - 14.5 % Platelets 94 (L) 150 - 450 x10*3/uL Renal Function Panel Result Value Ref Range Glucose 365 (H) 74 - 99 mg/dL Sodium 135 (L) 136 - 145 mmol/L Potassium 4.0 3.5 - 5.3 mmol/L Chloride 100 98 - 107 mmol/L Bicarbonate 23 21 - 32 mmol/L Anion Gap 16 10 - 20 mmol/L Urea Nitrogen 78 (H) 6 - 23 mg/dL Creatinine 4.64 (H) 0.50 - 1.30 mg/dL eGFR 14 (L) >60 mL/min/1.73m*2 Calcium 8.8 8.6 - 10.6 mg/dL Phosphorus 4.9 2.5 - 4.9 mg/dL Albumin 3.5 3.4 - 5.0 g/dL Magnesium Result Value Ref Range Magnesium 1.97 1.60 - 2.40 mg/dL Type And Screen Result Value Ref Range ABO TYPE B Rh TYPE POS ANTIBODY SCREEN NEG POCT GLUCOSE Result Value Ref Range POCT Glucose 273 (H) 74 - 99 mg/dL Lab Results Component Value Date ALT 14 10/15/2024 AST 30 10/15/2024 ALKPHOS 81 10/15/2024 BILITOT 0.8 10/15/2024 ASSESSMENT AND PLAN: Mr. Chapin is a 54 y.o. male who underwent transplant surgery on 10/15/2024 (Kidney). DBD KDPI 40 PRA 22 DGF Allograft Biopsy 11/23/24: Diffuse ATN Suspicious/ Borderline TCMR Mild arterial hyalinosis, severe arteriosclerosis Low grade mesangial IgA deposits 1. Immunosuppression reviewed and adjusted Tacrolimus: current dose 3 mg BID. Plan continue Today's tacrolimus level is pending, Goal tacrolimus trough level is 8-10 Mycophenolate: Yes - 500 bid (WBC) Prednisone: Yes - Pulse IV steroid 500/250/250 Will discuss Belatacept conversion Social work and Pharmacy consults to optimize outpatient follow-up/ support and pillbox 2.Electrolyte Reviewed renal profile. DGF: Yes 4. Hypertension medications reviewed Blood Pressures 11/24/2024 2105 11/25/2024 0100 11/25/2024 0500 11/25/2024 0758 BP: 151/75 145/88 152/77 145/90 Continue current management 5. Transplant US with perinephric fluid, not large enough to drain but will intervene if renal function not improving with rejection treatment 6. GI prophylaxis On PPI 7. DVT Prophylaxis SCDs Subcutaneous Heparin: Yes 8. ID prophylaxis CMV, PJP and fungal prophylaxis per [facility] Protocol Valcyte: Yes 9. Discharge planned for: 2 days Case was presented at Multi Disciplinary team rounds Attending physician, consulting physician, pediatric social worker, pharmacist, residents and fellow were present at the meeting. Brandi Cavanaugh MD [1] No Known Allergies documented in this [facility] Work Phone: 1(801) 432-470106-21-2025 Evaluation + Plan note* Assessment & Plan Note - Christine Negro APRN-[employer]HAUST EMISSIONS INSPECTOR - 11/27/2024 9:16 AM EDTAssociated Problem(s): Type 1 diabetes mellitus with hyperglycemia (Multi) Images from the original note were not included. DM1 with steroid induced hyperglycemia in setting of kidney allograft rejection History Of Present Illness Thom Chapin is a 54 y.o. 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 Brothers. 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 He previously was making about 1 L of UOP each day but feels that this has slowed down in the last1 week and he is only dribbling urine. He feels that he is completely voiding when he does void. Nochanges in BM habits. No changes in his appetite. He is consistent with taking his immunosuppression. No chest pain, SOB, fevers or chills. No abd pain, diarrhea or constipation. No other complaints at this time. He underwent IR biopsy of kidney on 11/23 and was notified today that the results are showing rejection thus he was direct admitted. Endocrinology consulted for DM1 with hyperglycemia, and plans to use steroid pulse for rejection Diabetes History Type of diabetes: T1D Year diagnosed or age: age 22 Hospitalizations for DKA or HHS: Patient thinks he was in DKA at time of diagnosis. No further hospitalizations for DKA Complications: nephropathy, retinopathy, PVD Seen by PCP or Endocrinology: last seen by Simone Westbrook PA-C endocrine on 11/02/24 Frequency of glucose checks: via dexcom G7 Frequency of Hypoglycemia: 0% per 30 day CGM report Hypoglycemia unawareness: yes Severe hypoglycemia requiring assistance from others: Yes, several occasions. Last event about 2 years ago Home Medications Basal: basaglar 8 units every morning Prandial: lispro 3u ACTID Correction: lispro 1u:50>150mg/dL CGM: dexcom G7 Previous meds: was on an insulin pump - stopped due to difficulty carb counting and entering appropriate information (per [facility] endo note from 2 years ago) Humalog in the past, stopped due to hypoglycemia CGM INTERPRETATION: Average blood sugar 237mg/dL, glucose management indicator 9.0% Glucose less than 70 mg/dL equals 0% of time worn Glucose ranging between 70 to 180 mg/dL represented by 29% of time worn Glucose ranging greater than 180 mg/dL represented by 71% of time worn 72 hours of data reviewed in order to inform diabetes treatment plan decision making, patient is not currently at risk for recurrent hypoglycemia safety concerns Hemoglobin A1C Date/Time Value Ref Range Status 09/09/2024 11:07 AM 6.5 (H) See comment % Final [facility] Work Phone: [phone]) 129-300806-21-2025 Hospital Note* Hospital Course - SIN Marti - 11/27/2024 7:42 AM EDT Thom Chapin is a 54 y.o. 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 He is s/p DDKT 10/15/24, ESRD 2/2 T1DM. He received methylprednisolone 500 mg X1 dose and 250 mg X2 doses. He will taper his prednisone starting at 20 mg daily. Of note, he was hyperglycemic and endocrine was consulted. Insulin adjustmentswere made and blood glucose has improved. He received HD on 11/26 and 900 ml fluid was removed. He is tolerating a diabetic diet and is stablefor discharge home. He will follow up in transplant clinic on 12/03. [facility] Work Phone: [phone] 150-668806-21-2025 Plan of care note* Care Plan - Jose Olivarez RN - 11/27/2024 5:25 AM EDT The clinical goals for the shift include Patient will remain HDS throughout shift. Patient's pain will be adequately controlled. Problem: Pain - Adult Goal: Verbalizes/displays adequate comfort level or baseline comfort level Outcome: Progressing Problem: Safety - Adult Goal: Free from fall injury Outcome: Progressing Problem: Discharge Planning Goal: Discharge to home or other facility with appropriate resources Outcome: Progressing Problem: Chronic Conditions and Co-morbidities Goal: Patient's chronic conditions and co-morbidity symptoms are monitored and maintained or improved Outcome: Progressing Problem: Nutrition Goal: Nutrient intake appropriate for maintaining nutritional needs Outcome: Progressing Problem: Diabetes Goal: Achieve decreasing blood glucose levels by end of shift Outcome: Progressing Goal: Increase stability of blood glucose readings by end of shift Outcome: Progressing Goal: Decrease in ketones present in urine by end of shift Outcome: Progressing Goal: Maintain electrolyte levels within acceptable range throughout shift Outcome: Progressing Goal: Maintain glucose levels >70mg/dl to <250mg/dl throughout shift Outcome: Progressing Goal: No changes in neurological exam by end of shift Outcome: Progressing Goal: Learn about and adhere to nutrition recommendations by end of shift Outcome: Progressing Goal: Vital signs within normal range for age by end of shift Outcome: Progressing Goal: Increase self care and/or family involovement by end of shift Outcome: Progressing Goal: Receive DSME education by end of shift Outcome: Progressing Problem: Fall/Injury Goal: Not fall by end of shift Outcome: Progressing Goal: Be free from injury by end of the shift Outcome: Progressing Goal: Verbalize understanding of personal risk factors for fall in the hospital Outcome: Progressing Goal: Verbalize understanding of risk factor reduction measures to prevent injury from fall in the home Outcome: Progressing Goal: Use assistive devices by end of the shift Outcome: Progressing Goal: Pace activities to prevent fatigue by end of the shift Outcome: Progressing T [facility]06-20-2025 Nurse Note* Rosibel Medina RN - 11/26/2024 3:25 PM EDT Report to Receiving RN: Report To: NO Ruff Time Report Called: [id number] Hand-Off Communication: pt stable , completed and tolerated HD tx, with no issues, blood given, no reactions noted, post vitals: 105/69, pulse 84, pt removed 0.5 liters Complications During Treatment: No Ultrafiltration Treatment: Yes Medications Administered During Dialysis: No Blood Products Administered During Dialysis: Yes, 1 unit of PRBCs Labs Sent During Dialysis: No Heparin Drip Rate Changes: No Dialysis Catheter Dressing: N/A Last Dressing Change: N/A, AVF Last Updated: 3:25 PM by ROSIBEL MEDINA [facility]06-20-2025 Nurse Note* Rosibel Medina RN - 11/26/2024 3:25 PM EDT Report to Receiving RN: Report To: NO Ruff Time Report Called: 1530 Hand-Off Communication: pt stable , completed and tolerated HD tx, with no issues, blood given, no reactions noted, post vitals: 105/69, pulse 84, pt removed 0.5 liters Complications During Treatment: No Ultrafiltration Treatment: Yes Medications Administered During Dialysis: No Blood Products Administered During Dialysis: Yes, 1 unit of PRBCs Labs Sent During Dialysis: No Heparin Drip Rate Changes: No Dialysis Catheter Dressing: N/A Last Dressing Change: N/A, AVF Last Updated: 3:25 PM by ROSIBEL MEDINA * Flor Read RN - 11/26/2024 11:10 AM EDT Report from Sending RN: Report From: NO Ruff Recent Surgery of Procedure: Yes, 10/15 - DDKT ; 11/23 - Biopsy of kidney Baseline Level of Consciousness (LOC): a/o x 4 Oxygen Use: No Type: prn Diabetic: Yes, accucheck 328 Last BP Med Given Day of Dialysis: amlodipine 5 mg daily; coreg 25 mg BID Last Pain Med Given: see MAR Lab Tests to be Obtained with Dialysis: No Blood Transfusion to be Given During Dialysis: yes Available IV Access: Yes, #22 RFA Medications to be Administered During Dialysis: No Continuous IV Infusion Running: No Restraints on Currently or in the Last 24 Hours: No Hand-Off Communication: No issues overnight. Stable for treatment. VS @ 1100 --> 36.5 - 78 - 16 - 142/79 - 100% on room air Dialysis Catheter Dressing: na - AVF Last Dressing Change: na * Camille Sawyer RN - 11/26/2024 10:55 AM EDT Consulting Group Analyst Note Patient re-admitted on 11/24 for IV steroids after biopsy showing borderline rejection. Patient received 3 doses of IV steroids and will plan to discharge home tomorrow. Patient to receive dialysis today 11/26. Outpatient urology appointment was scheduled for today, unable to proceed inpatient, will plan to reschedule outpatient appointment. Patient has had transportation difficulty and we are planning to transition to Belatacept. Discussed at length with patient and he states he will be able to get rides for infusion and is agreeable toproceed with [facility] at [facility] (30 minutes from his home). Outpatient Plan: Dialysis MWF Tac goal 8-10 until belatacept begins Stent removal to be scheduled Lex therapy plans sent to Dr Dwyer to sign - appointments pending Clinic Sunday 12/03 Patient brought pill box at bedside and to be filled by patient with RN supervision prior to discharge. If any changes made on day of discharge over the weekend, Transplant [facility] to assist patient to make adjustments. documented in this [facility] Work Phone: [phone]) 893-777706-20-2025 Plan of care note* Care Plan - Elzbieta Rock RN - 11/26/2024 12:16 PM EDT The patient's goals for the shift include assist when needed The clinical goals for the shift include patient will remain safe and vital signs stable. Problem: Pain - Adult Goal: Verbalizes/displays adequate comfort level or baseline comfort level Outcome: Progressing Problem: Safety - Adult Goal: Free from fall injury Outcome: Progressing Problem: Discharge Planning Goal: Discharge to home or other facility with appropriate resources Outcome: Progressing Problem: Chronic Conditions and Co-morbidities Goal: Patient's chronic conditions and co-morbidity symptoms are monitored and maintained or improved Outcome: Progressing Problem: Nutrition Goal: Nutrient intake appropriate for maintaining nutritional needs Outcome: Progressing Problem: Diabetes Goal: Achieve decreasing blood glucose levels by end of shift Outcome: Progressing Goal: Increase stability of blood glucose readings by end of shift Outcome: Progressing Goal: Decrease in ketones present in urine by end of shift Outcome: Progressing Goal: Maintain electrolyte levels within acceptable range throughout shift Outcome: Progressing Goal: Maintain glucose levels >70mg/dl to <250mg/dl throughout shift Outcome: Progressing Goal: No changes in neurological exam by end of shift Outcome: Progressing Goal: Learn about and adhere to nutrition recommendations by end of shift Outcome: Progressing Goal: Vital signs within normal range for age by end of shift Outcome: Progressing Goal: Increase self care and/or family involovement by end of shift Outcome: Progressing Goal: Receive DSME education by end of shift Outcome: Progressing Problem: Fall/Injury Goal: Not fall by end of shift Outcome: Progressing Goal: Be free from injury by end of the shift Outcome: Progressing Goal: Verbalize understanding of personal risk factors for fall in the hospital Outcome: Progressing Goal: Verbalize understanding of risk factor reduction measures to prevent injury from fall in the home Outcome: Progressing Goal: Use assistive devices by end of the shift Outcome: Progressing Goal: Pace activities to prevent fatigue by end of the shift Outcome: Progressing [facility]06-20-2025 Nurse Note* Flor Read RN - 11/26/2024 11:10 AM EDT Report from Sending RN: Report From: NO Ruff Recent Surgery of Procedure: Yes, 10/15 - DDKT ; 11/23 - Biopsy of kidney Baseline Level of Consciousness (LOC): a/o x 4 Oxygen Use: No Type: prn Diabetic: Yes, accucheck 328 Last BP Med Given Day of Dialysis: amlodipine 5 mg daily; coreg 25 mg BID Last Pain Med Given: see MAR Lab Tests to be Obtained with Dialysis: No Blood Transfusion to be Given During Dialysis: yes Available IV Access: Yes, #22 RFA Medications to be Administered During Dialysis: No Continuous IV Infusion Running: No Restraints on Currently or in the Last 24 Hours: No Hand-Off Communication: No issues overnight. Stable for treatment. VS @ 1100 --> 36.5 - 78 - 16 - 142/79 - 100% on room air Dialysis Catheter Dressing: na - AVF Last Dressing Change: na [facility]06-20-2025 Nurse Note* Camille Sawyer RN - 11/26/2024 10:55 AM EDT Consulting Group Analyst Note Patient re-admitted on 11/24 for IV steroids after biopsy showing borderline rejection. Patient received 3 doses of IV steroids and will plan to discharge home tomorrow. Patient to receive dialysis today 11/26. Outpatient urology appointment was scheduled for today, unable to proceed inpatient, will plan to reschedule outpatient appointment. Patient has had transportation difficulty and we are planning to transition to Bel[facility]. Discussed at length with patient and he states he will be able to get rides for infusion and is agreeable toproceed with Bel[facility]pt at [facility] (30 minutes from his home). Outpatient Plan: Dialysis MWF Tac goal 8-10 until belatacept begins Stent removal to be scheduled Lex therapy plans sent to Dr Dwyer to sign - appointments pending Clinic Sunday 12/03 Patient brought pill box at bedside and to be filled by patient with RN supervision prior to discharge. If any changes made on day of discharge over the weekend, Transplant [facility] to assist patient to make adjustments. [facility] Work Phone: [phone]) 287-637406-20-2025 Evaluation + Plan note* Assessment & Plan Note - Simone Westbrook PA-C - 11/26/2024 9:21 AM EDTAssociated Problem(s): Type 1 diabetes mellitus with hyperglycemia (Multi) Images from the original note were not included. DM1 with steroid induced hyperglycemia in setting of kidney allograft rejection History Of Present Illness Thom Chapin is a 54 y.o. 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 Brothers. 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 He previously was making about 1 L of UOP each day but feels that this has slowed down in the last1 week and he is only dribbling urine. He feels that he is completely voiding when he does void. Nochanges in BM habits. No changes in his appetite. He is consistent with taking his immunosuppression. No chest pain, SOB, fevers or chills. No abd pain, diarrhea or constipation. No other complaints at this time. He underwent IR biopsy of kidney on 11/23 and was notified today that the results are showing rejection thus he was direct admitted. Endocrinology consulted for DM1 with hyperglycemia, and plans to use steroid pulse for rejection Diabetes History Type of diabetes: T1D Year diagnosed or age: age 22 Hospitalizations for DKA or HHS: Patient thinks he was in DKA at time of diagnosis. No further hospitalizations for DKA Complications: nephropathy, retinopathy, PVD Seen by PCP or Endocrinology: last seen by Simone Westbrook PA-C endocrine on 11/02/24 Frequency of glucose checks: via dexcom G7 Frequency of Hypoglycemia: 0% per 30 day CGM report Hypoglycemia unawareness: yes Severe hypoglycemia requiring assistance from others: Yes, several occasions. Last event about 2 years ago Home Medications Basal: basaglar 8 units every morning Prandial: lispro 3u ACTID Correction: lispro 1u:50>150mg/dL CGM: dexcom G7 Previous meds: was on an insulin pump - stopped due to difficulty carb counting and entering appropriate information (per [facility] endo note from 2 years ago) Humalog in the past, stopped due to hypoglycemia CGM INTERPRETATION: Average blood sugar 237mg/dL, glucose management indicator 9.0% Glucose less than 70 mg/dL equals 0% of time worn Glucose ranging between 70 to 180 mg/dL represented by 29% of time worn Glucose ranging greater than 180 mg/dL represented by 71% of time worn 72 hours of data reviewed in order to inform diabetes treatment plan decision making, patient is not currently at risk for recurrent hypoglycemia safety concerns Hemoglobin A1C Date/Time Value Ref Range Status 09/09/2024 11:07 AM 6.5 (H) See comment % Final [facility] Work Phone: [phone]) 729-891906-20-2025 Plan of care note* Care Plan - Darrian Martinez RN - 11/26/2024 5:44 AM EDT The clinical goals for the shift include patient will remain safe and vital signs stable. Problem: Safety - Adult Goal: Free from fall injury Outcome: Progressing Problem: Chronic Conditions and Co-morbidities Goal: Patient's chronic conditions and co-morbidity symptoms are monitored and maintained or improved Outcome: Progressing Problem: Fall/Injury Goal: Not fall by end of shift Outcome: Progressing Goal: Be free from injury by end of the shift Outcome: Progressing Goal: Verbalize understanding of personal risk factors for fall in the hospital Outcome: Progressing Goal: Verbalize understanding of risk factor reduction measures to prevent injury from fall in the home Outcome: Progressing Goal: Use assistive devices by end of the shift Outcome: Progressing Goal: Pace activities to prevent fatigue by end of the shift Outcome: Progressing [facility] Work Phone: [phone]) 514-142406-19-2025 jewelry manager Note* Significant Event - Anahi Lewis PA-C - 11/25/2024 10:31 AM EDT 11/25/24 1231 Patient Interaction Organ Kidney Type of Interaction Morning rounds Interdisciplinary Rounds Attendance Surgeon;Physician;KAVITHA;Pharmacist Topics Discussed Diet;Medications;Blood test results Transplant Surgery Multidisciplinary Team Note Thom Chapin is a 54 y.o. male POD#41 from a Kidney from a DBD donor. His post operative complications: Need for dialysis 24 Hour Events 1. Admit w/ concern for rejection Last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 subcutaneous, q4h insulin lispro, 3 Units, subcutaneous, TID AC insulin NPH (Isophane), 6 Units, subcutaneous, q24h AMBER latanoprost, 1 drop, ophthalmic (eye), Nightly methylPREDNISolone sodium succinate (PF), 250 mg, intravenous, Once mycophenolate, 500 mg, oral, q12h pantoprazole, 40 mg, oral, Daily before breakfast sulfamethoxazole-trimethoprim, 1 tablet, oral, Daily tacrolimus, 3 mg, oral, q12h AMBER tamsulosin, 0.4 mg, oral, Daily valGANciclovir, 450 mg, oral, Every other day [3] [4] PRN medications: dextrose, dextrose, glucagon, glucagon documented in this [facility] Work Phone: [phone] Consult note* Simone Westbrook PA-C - 11/25/2024 8:58 AM EDTAssociated Order(s): Inpatient consult to Endocrinology Images from the original note were not included. Inpatient consult to Endocrinology Consult performed by: Simone Westbrook PA-C Consult ordered by: Brandi Cavanaugh MD Reason for consult: DM1 with steroid induced hyperglycemia in setting of kidney allograft rejection Assessment/Recommendations: Pt would benefit from weight-based insulin regimen. Reason For Consult DM1 with steroid induced hyperglycemia in setting of kidney allograft rejection History Of Present Illness Thom Chapin is a 54 y.o. 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 Brothers. 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 He previously was making about 1 L of UOP each day but feels that this has slowed down in the last1 week and he is only dribbling urine. He feels that he is completely voiding when he does void. Nochanges in BM habits. No changes in his appetite. He is consistent with taking his immunosuppression. No chest pain, SOB, fevers or chills. No abd pain, diarrhea or constipation. No other complaints at this time. He underwent IR biopsy of kidney on 11/23 and was notified today that the results are showing rejection thus he was direct admitted. Endocrinology consulted for DM1 with hyperglycemia, and plans to use steroid pulse for rejection Diabetes History Type of diabetes: T1D Year diagnosed or age: age 22 Hospitalizations for DKA or HHS: Patient thinks he was in DKA at time of diagnosis. No further hospitalizations for DKA Complications: nephropathy, retinopathy, PVD Seen by PCP or Endocrinology: last seen by Simone Westbrook PA-C endocrine on 11/02/24 Frequency of glucose checks: via dexcom G7 Frequency of Hypoglycemia: 0% per 30 day CGM report Hypoglycemia unawareness: yes Severe hypoglycemia requiring assistance from others: Yes, several occasions. Last event about 2 years ago Home Medications Basal: basaglar 8 units every morning Prandial: lispro 3u ACTID Correction: lispro 1u:50>150mg/dL CGM: dexcom G7 Previous meds: was on an insulin pump - stopped due to difficulty carb counting and entering appropriate information (per [facility] endo note from 2 years ago) Humalog in the past, stopped due to hypoglycemia CGM INTERPRETATION: Average blood sugar 237mg/dL, glucose management indicator 9.0% Glucose less than 70 mg/dL equals 0% of time worn Glucose ranging between 70 to 180 mg/dL represented by 29% of time worn Glucose ranging greater than 180 mg/dL represented by 71% of time worn 72 hours of data reviewed in order to inform diabetes treatment plan decision making, patient is not currently at risk for recurrent hypoglycemia safety concerns Results from Most Recent A1C Hemoglobin A1C Date/Time Value Ref Range Status 09/09/2024 11:07 AM 6.5 (H) See comment % Final Diabetes Problem List Entries with Dates Problem List: 2024-11: Type 1 diabetes mellitus with hyperglycemia (Multi) 2023-11: Diabetic renal disease ([facility]) 2016-: Type 2 diabetes mellitus with other diabetic kidney complication 2014-: Diabetic peripheral neuropathy ([facility]) 2009-: Diabetic retinopathy ([facility]) 2004-: Type 1 diabetes mellitus Past Medical History He has a past medical history of CKD (chronic kidney disease) stage 4, GFR 15-29 ml/min ([facility]). Surgical History He has a past surgical history that includes Toe amputation (Right, 2016) and Cardiac catheterization (N/A, 12/08/2023). Social History He reports that he has quit smoking. His smoking use included cigarettes. He started smoking about 11 years ago. He has never used smokeless tobacco. He reports that he does not currently use alcohol. He reports current drug use. Drug: Marijuana. Family History Family History[1] Allergies Patient has no known allergies. Review of Systems All other systems reviewed and are negative. Physical Exam Constitutional: Appearance: Normal appearance. He is normal weight. HENT: Head: Normocephalic and atraumatic. Nose: Nose normal. Mouth/Throat: Mouth: Mucous membranes are dry. Pharynx: Oropharynx is clear. Eyes: Extraocular Movements: Extraocular movements intact. Conjunctiva/sclera: Conjunctivae normal. Cardiovascular: Rate and Rhythm: Normal rate and regular rhythm. Pulses: Normal pulses. Heart sounds: Normal heart sounds. Pulmonary: Effort: Pulmonary effort is normal. Breath sounds: Normal breath sounds. Abdominal: General: Abdomen is flat. Bowel sounds are normal. Palpations: Abdomen is soft. Skin: General: Skin is warm and dry. Neurological: General: No focal deficit present. Mental Status: He is alert and oriented to person, place, and time. Mental status is at baseline. Psychiatric: Mood and Affect: Mood normal. Behavior: Behavior normal. Thought Content: Thought content normal. Judgment: Judgment normal. ROS, PMH, FH/SH, surgical history and allergies have been reviewed. Last Recorded Vitals Blood pressure 157/90, pulse 84, temperature 36.5 C (97.7 F), temperature source Temporal, resp. rate 17, height 1.905 m (6' 3), weight 58.4 kg (128 lb 12.8 oz), SpO2 98%. Relevant Results Results from last 7 days Lab Units 11/25/24 1225 11/25/24 0800 11/25/24 0236 11/25/24 0235 11/24/24 1246 11/22/24 0737 POCT GLUCOSE mg/dL 464* 273* -- 369* -- -- GLUCOSE mg/dL -- -- 365* -- 61* 133* Scheduled medications Scheduled Medications[2] Continuous medications Continuous Medications[3] PRN medications PRN Medications[4] Assessment/Plan Assessment & Plan Elevated serum creatinine Type 1 diabetes mellitus with hyperglycemia (Multi) PLAN Steroids: methylpred 500mg x1, methylpred 250mg x2, then pred 20mg Nutrition: PO 60g CHO/meal - start NPH 6u with each dose of methylprednisolone - continue glargine 8u If NPO: reduce to 6u - continue lispro 3 with meals plus scale If NPO or glucose < 90: hold - retime lispro corrective scale #1 to with meals and at bedtime, adjust to q4h if NPO or if persistently hyperglycemic >250mg/dL 70-150 = 0u 151-200 = 2u 201-250 = 4u 251-300 = 6u 301-350 = 8u 351-400 = 10u -Accuchecks (not BMP) TIDAC and QHS- kindly ensure QHS Accucheck is drawn; it is often missed - Goal BG 140-180 -Hypoglycemia protocol -Will continue to follow and titrate insulin accordingly Discharge planning: [] patient may expect to discharge home on glargine/lispro, final doses TBD by titration [x] continue dexcom G7 wear at discharge []will enroll pt in pharmacy [facility] plan program [x]follow up with Simone Westbrook PA-C as scheduled on 12/16/24 I spent 80 minutes in the professional and overall care of this patient. Simone Westbrook PA-C [1] Family History Problem Relation Name Age of Onset Diabetes Mother Diabetes Maternal Grandmother [2] aspirin, 81 mg, oral, Daily atorvastatin, 40 mg, oral, Daily calcitriol, 0.25 mcg, oral, Daily carvedilol, 25 mg, oral, BID cholecalciferol, 50 mcg, oral, Daily clotrimazole, 10 mg, Mouth/Throat, TID after meals dorzolamide-timoloL, 1 drop, Both Eyes, BID furosemide, 40 mg, oral, Daily insulin glargine, 8 Units, subcutaneous, Daily insulin lispro, 0-5 Units, subcutaneous, q4h insulin lispro, 3 Units, subcutaneous, TID AC insulin NPH (Isophane), 6 Units, subcutaneous, q24h AMBER latanoprost, 1 drop, ophthalmic (eye), Nightly methylPREDNISolone sodium succinate (PF), 250 mg, intravenous, Once mycophenolate, 500 mg, oral, q12h pantoprazole, 40 mg, oral, Daily before breakfast sulfamethoxazole-trimethoprim, 1 tablet, oral, Daily tacrolimus, 3 mg, oral, q12h AMBER tamsulosin, 0.4 mg, oral, Daily valGANciclovir, 450 mg, oral, Every other day [3] [4] PRN medications: dextrose, dextrose, glucagon, glucagon [facility] Work Phone: [phone] History and physical note* Radha Pearce MD - 11/24/2024 8:50 PM EDT History Of Present Illness Thom Chapin is a 54 y.o. male presenting with T CELL MEDIATED REJECTION OF TRANSPLANTED KIDNEY. 54 y/o male with a hx of ESRD s2/2 T1DM who is now s/p DDKT on 10/15/[address] Brothers. 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 He previously was making about 1 L of UOP each day but feels that this has slowed down in the last1 week and he is only dribbling urine. He feels that he is completely voiding when he does void. Nochanges in BM habits. No changes in his appetite. He is consistent with taking his immunosuppression. No chest pain, SOB, fevers or chills. No abd pain, diarrhea or constipation. No other complaints at this time. He underwent IR biopsy of kidney on 11/23 and was notified today that the results are showing rejection thus he was direct admitted. Index admission information: KDPI of 40% and PRA of 22%. Donor was Hepc - / - and has not met risk factors. EBV +/+. Right donorkidney transplanted to patient right pelvis. Dry weight is 65 kg (discharge weight is 69.2 kg). Pt received a total of 4.5 mg/kg total of thymoglobulin induction therapy in conjunction with 500mg IV solumedrol. Pt was initiated on Tacrolimus & Cellcept immunosuppression in conjunction with IV so lumedrol taper. Pt was started on valcyte (CMV D + / R + ) and bactrim for CMV & PCP prophylaxis per protocol. He was started on clotrimazole as antifungal coverage per protocol. Operative coursewas uncomplicated. Hospital course was uncomplicated. [place] catheter was removed on POD #3 but the patient had high post void residuals. [place] was replaced and flomax was started. Pt did require dialysis, electrolytes remain stable. Dialysis access via left upper extremity AVF and was patent on last use. BP & glucose under good control. 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 Prior NSTEMI/PCI (2019). Currently asymptomatic. Patient available any day of the week. Please call to schedule (via [employer] if needed). TOE AMPUTATION Right 2015 DDKT 10/15/24 Social History He reports that he has quit smoking. His smoking use included cigarettes. He started smoking about 11 years ago. He has never used smokeless tobacco. He reports that he does not currently use alcohol. He reports current drug use. Drug: Marijuana. Family History Family History Problem Relation Name Age of Onset Diabetes Mother Diabetes Maternal Grandmother Allergies Patient has no known allergies. Last Recorded Vitals Blood pressure 151/75, pulse 96, temperature 36.2 C (97.2 F), resp. rate 18, height 1.905 m (6' 3), weight 58.4 kg (128 lb 12.8 oz), SpO2 100%. Physical Exam Constitutional: General: He is not in acute distress. Appearance: He is not toxic-appearing. HENT: Head: Normocephalic and atraumatic. Right Ear: External ear normal. Left Ear: External ear normal. Nose: Nose normal. Mouth/Throat: Mouth: Mucous membranes are moist. Pharynx: Oropharynx is clear. Eyes: General: No scleral icterus. Extraocular Movements: Extraocular movements intact. Conjunctiva/sclera: Conjunctivae normal. Pupils: Pupils are equal, round, and reactive to light. Cardiovascular: Rate and Rhythm: Normal rate and regular rhythm. Pulses: Normal pulses. Pulmonary: Effort: Pulmonary effort is normal. No respiratory distress. Breath sounds: No wheezing, rhonchi or rales. Chest: Chest wall: No tenderness. Abdominal: General: Abdomen is flat. There is no distension. Palpations: Abdomen is soft. Tenderness: There is no abdominal tenderness. There is no guarding or rebound. Hernia: No hernia is present. Comments: RLQ christianson incision is well healed, no collections noted under incision. No drainage. No erythema. Musculoskeletal: General: No swelling, tenderness, deformity or signs of injury. Normal range of motion. Cervical back: Normal range of motion and neck supple. No rigidity or tenderness. Skin: Capillary Refill: Capillary refill takes less than 2 seconds. Neurological: General: No focal deficit present. Mental Status: He is alert and oriented to person, place, and time. Mental status is at baseline. Psychiatric: Mood and Affect: Mood normal. Behavior: Behavior normal. Thought Content: Thought content normal. Relevant Results Admission labs are pending Admission EKG also pending Assessment & Plan Elevated serum creatinine 54 y/o male with a hx of ESRD s2/2 T1DM who is now s/p DDKT on 10/15/[address] Brothers. 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 Patient is admitted for treatment. - admit to transplant surgery - vitals Q4, strict I&Os, tele - okay for carb controlled diet - will hold home prednisone as he will received steroid pulse while in patient. - will receive 500 solumedrol dose once tonight - will contiue tac 3/3, MMF 500 BID, will cont ppx with clotrimazole, bactrim, valcyte - will continue home ASA, coreg, calcitriol, lipitor, eye drops, lantus / meal time/ SSI, flomax. Pending admission labs, will continue home lasix. - will obtain admission renal US to eval for any hydro or perinephric collections D/w attending Dr. Afshan Pearce MD PGY1 Abdominal Transplant Surgery Pager [phone] Available via secure chat Cosigned by rBandi Cavanaugh MD at 11/24/2024 10:07 PM EDT Associated attestation - Brandi Cavanaugh MD - 11/24/2024 10:07 PM EDT I reviewed the resident's documentation and discussed the patient with the resident/ KAVITHA team. I agree with the resident/ KAVITHA's medical decision making as documented in the note. Re-admit for biopsy with suspicious borderline T-cell rejection Pulse steroid Resume IS I spent 25 minutes in the professional and overall care of this patient, including immunosuppression management. Brandi Cavanaugh MD, [facility] Transplant & Hepatobiliary Surgery [facility] Work Phone: [phone] History and physical note* Radha Pearce MD - 11/24/2024 8:50 PM EDT History Of Present Illness Thom Chapin is a 54 y.o. male presenting with T CELL MEDIATED REJECTION OF TRANSPLANTED KIDNEY. 54 y/o male with a hx of ESRD s2/2 T1DM who is now s/p DDKT on 10/15/[address] Brothers. 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 He previously was making about 1 L of UOP each day but feels that this has slowed down in the last1 week and he is only dribbling urine. He feels that he is completely voiding when he does void. Nochanges in BM habits. No changes in his appetite. He is consistent with taking his immunosuppression. No chest pain, SOB, fevers or chills. No abd pain, diarrhea or constipation. No other complaints at this time. He underwent IR biopsy of kidney on 11/23 and was notified today that the results are showing rejection thus he was direct admitted. Index admission information: KDPI of 40% and PRA of 22%. Donor was Hepc - / - and has not met risk factors. EBV +/+. Right donorkidney transplanted to patient right pelvis. Dry weight is 65 kg (discharge weight is 69.2 kg). Pt received a total of 4.5 mg/kg total of thymoglobulin induction therapy in conjunction with 500mg IV solumedrol. Pt was initiated on Tacrolimus & Cellcept immunosuppression in conjunction with IV so lumedrol taper. Pt was started on valcyte (CMV D + / R + ) and bactrim for CMV & PCP prophylaxis per protocol. He was started on clotrimazole as antifungal coverage per protocol. Operative coursewas uncomplicated. Hospital course was uncomplicated. [place] catheter was removed on POD #3 but the patient had high post void residuals. [place] was replaced and flomax was started. Pt did require dialysis, electrolytes remain stable. Dialysis access via left upper extremity AVF and was patent on last use. BP & glucose under good control. 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 Prior NSTEMI/PCI (2019). Currently asymptomatic. Patient available any day of the week. Please call to schedule (via [employer] if needed). TOE AMPUTATION Right 2015 DDKT 10/15/24 Social History He reports that he has quit smoking. His smoking use included cigarettes. He started smoking about 11 years ago. He has never used smokeless tobacco. He reports that he does not currently use alcohol. He reports current drug use. Drug: Marijuana. Family History Family History Problem Relation Name Age of Onset Diabetes Mother Diabetes Maternal Grandmother Allergies Patient has no known allergies. Last Recorded Vitals Blood pressure 151/75, pulse 96, temperature 36.2 C (97.2 F), resp. rate 18, height 1.905 m (6' 3), weight 58.4 kg (128 lb 12.8 oz), SpO2 100%. Physical Exam Constitutional: General: He is not in acute distress. Appearance: He is not toxic-appearing. HENT: Head: Normocephalic and atraumatic. Right Ear: External ear normal. Left Ear: External ear normal. Nose: Nose normal. Mouth/Throat: Mouth: Mucous membranes are moist. Pharynx: Oropharynx is clear. Eyes: General: No scleral icterus. Extraocular Movements: Extraocular movements intact. Conjunctiva/sclera: Conjunctivae normal. Pupils: Pupils are equal, round, and reactive to light. Cardiovascular: Rate and Rhythm: Normal rate and regular rhythm. Pulses: Normal pulses. Pulmonary: Effort: Pulmonary effort is normal. No respiratory distress. Breath sounds: No wheezing, rhonchi or rales. Chest: Chest wall: No tenderness. Abdominal: General: Abdomen is flat. There is no distension. Palpations: Abdomen is soft. Tenderness: There is no abdominal tenderness. There is no guarding or rebound. Hernia: No hernia is present. Comments: RLQ christianson incision is well healed, no collections noted under incision. No drainage. No erythema. Musculoskeletal: General: No swelling, tenderness, deformity or signs of injury. Normal range of motion. Cervical back: Normal range of motion and neck supple. No rigidity or tenderness. Skin: Capillary Refill: Capillary refill takes less than 2 seconds. Neurological: General: No focal deficit present. Mental Status: He is alert and oriented to person, place, and time. Mental status is at baseline. Psychiatric: Mood and Affect: Mood normal. Behavior: Behavior normal. Thought Content: Thought content normal. Relevant Results Admission labs are pending Admission EKG also pending Assessment & Plan Elevated serum creatinine 54 y/o male with a hx of ESRD s2/2 T1DM who is now s/p DDKT on 10/15/[address] Brtohers. 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 Patient is admitted for treatment. - admit to transplant surgery - vitals Q4, strict I&Os, tele - okay for carb controlled diet - will hold home prednisone as he will received steroid pulse while in patient. - will receive 500 solumedrol dose once tonight - will contiue tac 3/3, MMF 500 BID, will cont ppx with clotrimazole, bactrim, valcyte - will continue home ASA, coreg, calcitriol, lipitor, eye drops, lantus / meal time/ SSI, flomax. Pending admission labs, will continue home lasix. - will obtain admission renal US to eval for any hydro or perinephric collections D/w attending Dr. Afshan Pearce MD PGY1 Abdominal Transplant Surgery Pager [phone] Available via secure chat Cosigned by Brandi Cavanaugh MD at 11/24/2024 10:07 PM EDT Associated attestation - Brandi Cavanaugh MD - 11/24/2024 10:07 PM EDT I reviewed the resident's documentation and discussed the patient with the resident/ KAVITHA team. I agree with the resident/ KAVITHA's medical decision making as documented in the note. Re-admit for biopsy with suspicious borderline T-cell rejection Pulse steroid Resume IS I spent 25 minutes in the professional and overall care of this patient, including immunosuppression management. Brandi Cavanaugh MD, [facility] Transplant & Hepatobiliary Surgery documented in this [facility] Work Phone: [phone]) 142-438306-17-2025 Hospital Discharge instructions* Discharge Instructions* Angelita Mora RN - 11/23/2024 11:06 AM EDT Discharge information See Kidney Biopsy patient information sheet. Ok to remove dressing on 11/24/24 at 11am. Ok to shower on 11/24/24, no baths, jacuzzis, or swimming. Do not get submerged in a body of water (leads to increased risk of infection.) Ok to keep open until healed. Healing is when a scab is created and falls off, usually within 5-10 days. Look for signs and symptoms of infection: Including: redness, swelling, discharge such as pus, or odor from site. Look for bleeding from site: If bleeding occurs hold pressure for 5 minutes with paper towel, check site if still bleeding hold for 5 more minutes If site continues to bleed after 10 minutes call 911. You received moderate sedation: - Do not drive a car, or operate any machinery or power tools of any kind. - Do not drink any alcoholic drinks. - Do not take any over the counter medications that may cause drowsiness. - Do not make any important decisions or sign any legal documents. - You need to have a responsible adult accompany you home. - You may resume your normal diet. - We strongly suggest that a responsible adult be with you for the rest of the day and also during the night. This is for your protection and safety. For questions related to your procedure: Please call [phone] between the hours of 7:00am-5:00pm Friday through Friday. Please call [phone] for Resident rail transportation operator after 5:00pm weeknights, on weekends, and holidays. In the event of an emergency call 911 or go to your nearest emergency room. [facility] Work Phone: [phone]) 611-210706-17-2025 Evaluation note* Pre-Procedure Note - Marv Palafox DO - 11/23/2024 11:00 AM EDT Interventional Radiology Preprocedure Note Procedure: US-guided biopsy of right iliac fossa transplant kidney Indication for procedure: The encounter diagnosis was Delayed graft function of kidney (HHS-HCC). S/p DKKT on 10/15/2024. Relevant review of systems: NA Relevant Labs: Lab Results Component Value Date CREATININE 6.43 (H) 11/22/2024 EGFR 9 (L) 11/22/2024 INR 1.1 11/19/2024 PROTIME 12.2 11/19/2024 Planned Sedation/Anesthesia: Moderate Airway assessment: normal Directed physical examination: A&Ox3 Mallampati: N/A ASA Score: ASA 2 - Patient with mild systemic disease with no functional limitations Benefits, risks and alternatives of procedure and planned sedation have been discussed with the patient and/or their floor representative. All questions answered and they agree to proceed. Marv Palafox DO, PGY-[address] [facility] Work Phone: [phone]) 196-164206-17-2025 Miscellaneous Notes* Pre-Procedure Note - Marv Palafox DO - 11/23/2024 11:00 AM EDT Interventional Radiology Preprocedure Note Procedure: US-guided biopsy of right iliac fossa transplant kidney Indication for procedure: The encounter diagnosis was Delayed graft function of kidney (HHS-HCC). S/p DKKT on 10/15/2024. Relevant review of systems: NA Relevant Labs: Lab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 Diagnosis Date CKD (chronic kidney disease) stage 4, GFR 15-29 ml/min (Multi) [2] No Active Allergies [3] acetaminophen, 650 mg, oral, Once aspirin, 81 mg, oral, Daily bisacodyl, 10 mg, rectal, Once calcitriol, 0.25 mcg, oral, Daily carvedilol, 25 mg, oral, BID cholecalciferol, 50 mcg, oral, Daily clotrimazole, 10 mg, Mouth/Throat, TID after meals darbepoetin yuri, 100 mcg, subcutaneous, Weekly docusate sodium, 100 mg, oral, BID furosemide, 80 mg, intravenous, Once furosemide, 80 mg, oral, BID insulin glargine, 8 Units, subcutaneous, Daily insulin lispro, 0-5 Units, subcutaneous, TID AC insulin lispro, 2 Units, subcutaneous, TID AC mycophenolate, 1,000 mg, oral, q12h pantoprazole, 40 mg, oral, BID AC polyethylene glycol, 17 g, oral, BID predniSONE, 20 mg, oral, Daily sevelamer carbonate, 800 mg, oral, TID sulfamethoxazole-trimethoprim, 1 tablet, oral, Daily [START ON 10/21/2024] tacrolimus, 1 mg, oral, q12h AMBER tamsulosin, 0.4 mg, oral, Daily valGANciclovir, 450 mg, oral, q48h [4] [5] PRN medications: acetaminophen, dextrose, dextrose, glucagon, glucagon, hydrALAZINE, naloxone, ondansetron ODT OR ondansetron, oxygen, traMADol, traMADol * Patience Roach - 10/20/2024 10:58 AM EDT Thom Chapin is a 54 y.o. male on day 4 of admission presenting with ESRD (end stage renal disease) (Multi). Transitional Care Coordination Progress Note: Patient discussed during interdisciplinary rounds. Plan per Medical/Surgical team: Pt seen by previous TCC. Please see notes. Home Care choice for home going needs, [facility]. Pt Needs: RN for [place] care. [facility] aware. DC canceled. 10/20: DC postponed until tomorrow, [facility] made aware. Discharge disposition: [facility] Potential Barriers: None ADOD: 10/21 This TCC will continue to follow for home going needs and safe DC plan. PATIENCE ROACH * Nathan Lizarraga MD - 10/19/2024 9:14 PM EDT Thom Chapin is a 54 y.o. male now POD # 4 s/p DDKT transplant. Subjective Urine increased to 805 cc No BM +OOB Required HD yesterday Ret[place] requiring [place] Objective Physical Exam Gen: A+OX3; NAD Abd: S/NT/ND. Incision C/D/I. Ext: 2+ LE edema Last Recorded Vitals Blood pressure 124/80, pulse 84, temperature 36.6 C (97.9 F), temperature source Temporal, resp. rate 18, weight 69.2 kg (152 lb 7.2 oz), SpO2 97%. Intake/Output last 3 Shifts: I/O last 3 completed shifts: In: 3510 (50.8 mL/kg) [P.O.:2410; I.V.:600 (8.7 mL/kg); Other:400; IV Piggyback:100] Out: 3870 (56 mL/kg) [Urine:1455 (0.6 mL/kg/hr); Drains:15; Other:2400] Weight: 69.1 kg Lab Results Component Value Date CREATININE 6.34 (H) 10/19/2024 K 4.0 10/19/2024 GLUCOSE 109 (H) 10/19/2024 HGB 7.3 (L) 10/19/2024 WBC 3.5 (L) 10/19/2024 PLT 92 (L) 10/19/2024 CALCIUM 7.7 (L) 10/19/2024 Current Medications[1] Assessment/Plan 54 y/o M w/ ESRD 2/2 HTN. Hx RCA 50% stenosis and prior LAD stent. S/p DDKT 10/15/24 KDPI 40%. Significant douglas iliac vessel calcifications HD required Lasix 100 IV ASA 81 mg Interval US today Immunosuppression Reviewed and Adjusted PRA 22% Thymo completed Tac 3 mg po BID. Level 23. On hold until level improves. MMF 1000 BID Steroid taper 3. ID Prophylaxis Bactrim Valcyte Clotrimazole 4. Anemia Aranesp 10/16 Plan transfusion with dialysis if needed Donor Kidney Info: Etiology: Risk: no KDPI: 40 % PRA: 22 % CMV: D+/R+ EBV: D+/R+ Toxo: Donor Negative HCV Ab/MEGHAN: Negative HBcAB: Negative HBsAg/HBV MEGHAN: Negative I spent 32 minutes in the professional and overall care of this patient. Case was presented at Multi D team round. Attending physician, consulting physician, pediatric social worker,pharmacist, residents and fellow were present at the meeting. Nathan Lizarraga MD [1] Current Facility-Administered Medications: acetaminophen (Tylenol) tablet 650 mg, 650 mg, oral, q6h PRN, Omar Noriega MD acetaminophen (Tylenol) tablet 650 mg, 650 mg, oral, Once, Pauline L Zain, SIPHONER-EXHAUST EMISSIONS INSPECTOR aspirin EC tablet 81 mg, 81 mg, oral, Daily, Tan Isbell MD, 81 mg at 10/19/24 0823 bisacodyl (Dulcolax) suppository 10 mg, 10 mg, rectal, Once, Pauline L [place], SIPHONER-EXHAUST EMISSIONS INSPECTOR calcitriol (Rocaltrol) capsule 0.25 mcg, 0.25 mcg, oral, Daily, Pauline L Zain, SIPHONER-EXHAUST EMISSIONS INSPECTOR, 0.25 mcg at10/19/24 1210 carvedilol (Coreg) tablet 25 mg, 25 mg, oral, BID, SIN [place], 25 mg at 10/19/242008 cholecalciferol (Vitamin D-3) tablet 50 mcg, 50 mcg, oral, Daily, SIN Solano, 50 mcg at 10/19/24 0632 clotrimazole (Mycelex) amanda 10 mg, 10 mg, Mouth/Throat, TID after meals, Omar Noriega MD, 10 mg at 10/19/24 1806 darbepoetin yuri (Aranesp) injection 100 mcg, 100 mcg, subcutaneous, Weekly, Luis Bunch MD, 100 mcg at 10/16/24 1247 dextrose 50 % injection 12.5 g, 12.5 g, intravenous, q15 min PRN, Omar Noriega MD dextrose 50 % injection 25 g, 25 g, intravenous, q15 min PRN, Omar Noriega MD docusate sodium (Colace) capsule 100 mg, 100 mg, oral, BID, Omar Noriega MD, 100 mg at 10/19/242008 furosemide (Lasix) tablet 80 mg, 80 mg, oral, BID, SIN Solano, 80 mg at 10/19/24 165 glucagon (Glucagen) injection 1 mg, 1 mg, intramuscular, q15 min PRN, Omar Noriega MD glucagon (Glucagen) injection 1 mg, 1 mg, intramuscular, q15 min PRN, Omar Noriega MD hydrALAZINE (Apresoline) injection 10 mg, 10 mg, intravenous, q6h PRN, SIN Solano, 10 mg at 10/18/24 1333 [START ON 10/20/2024] insulin glargine (Lantus) injection 8 Units, 8 Units, subcutaneous, Daily, Simone Westbrook PA-C insulin lispro injection 0-5 Units, 0-5 Units, subcutaneous, TID AC, Simone Westbrook PA-C, 1 Units at 10/19/24 1210 insulin lispro injection 2 Units, 2 Units, subcutaneous, TID ACPauline APRN-EXHAUST EMISSIONS INSPECTOR, 2 Units at10/19/24 165 mycophenolate (Cellcept) capsule 1,000 mg, 1,000 mg, oral, q12h, Omar Noriega MD, 1,000 mg at 10/19/24 180 naloxone (Narcan) injection 0.2 mg, 0.2 mg, intravenous, q5 min PRN, Omar Noriega MD ondansetron ODT (Zofran-ODT) disintegrating tablet 4 mg, 4 mg, oral, q8h PRN OR ondansetron (Zofran) injection 4 mg, 4 mg, intravenous, q8h PRN, Omar Noriega MD, 4 mg at 10/16/24 0452 oxygen (O2) therapy, , inhalation, Continuous PRN - O2/gases, Omar Noriega MD pantoprazole (ProtoNix) EC tablet 40 mg, 40 mg, oral, BID AC, Omar Noriega MD, 40 mg at 10/19/241651 polyethylene glycol (Glycolax, Miralax) packet 17 g, 17 g, oral, BID, Pauline L Zain, SIPHONER-EXHAUST EMISSIONS INSPECTOR, 17 g at 10/19/242008 predniSONE (Deltasone) tablet 20 mg, 20 mg, oral, Daily, Omar Noriega MD, 20 mg at 10/19/24 0823 sevelamer carbonate (Renvela) tablet 800 mg, 800 mg, oral, TID, Pauline L [place], SIPHONER-EXHAUST EMISSIONS INSPECTOR, 800 mg at 10/19/24 165 sulfamethoxazole-trimethoprim (Bactrim) 400-80 mg per tablet 1 tablet, 1 tablet, oral, Daily, EricaL Zain, SIPHONER-EXHAUST EMISSIONS INSPECTOR, 1 tablet at 10/19/24 0823 [Held by provider] tacrolimus (Prograf) capsule 2 mg, 2 mg, oral, q12h AMBER, Paloma Massey SIPHONER-EXHAUST EMISSIONS INSPECTOR, 2 mg at 10/19/24 0632 tamsulosin (Flomax) 24 hr capsule 0.4 mg, 0.4 mg, oral, Daily, Pauline L [place], SIPHONER-EXHAUST EMISSIONS INSPECTOR, 0.4 mg at 10/19/24 1052 traMADol (Ultram) tablet 25 mg, 25 mg, oral, q8h PRN, SIN Solano traMADol (Ultram) tablet 50 mg, 50 mg, oral, q8h PRN, LAINE Solano CNP, 50 mg at 141 valGANciclovir (Valcyte) tablet 450 mg, 450 mg, oral, q48h, Luis Bunch MD, 450 mg at 10/18/24 1228 * Braden Breen, OT - 10/19/2024 2:50 PM EDT Occupational Therapy Evaluation Patient Name: Thom Chapin Today's Date: 10/19/2024 Time Calculation Start Time: 1006 Stop Time: 1022 Time Calculation (min): 16 min Assessment IP OT Assessment OT Assessment: Pt required CGA with functional bed mobility and min v.c for log roll. Able to complete lower body dressing donning shoes with mod assist due to current abd precautions. Pt required SBA with functional ambulation using a wheeled walker. Prognosis: Good Barriers to Discharge Home: No anticipated barriers Evaluation/Treatment Tolerance: Patient tolerated treatment well Medical Staff Made Aware: Yes End of Session Communication: Bedside nurse End of Session Patient Position: Bed, 3 rail up, Alarm off, not on at start of session Plan: Treatment Interventions: ADL retraining, Functional transfer training OT Frequency: 2 times per week OT Discharge Recommendations: No OT needed after discharge Equipment Recommended upon Discharge: (raised toilet seat) OT Recommended Transfer Status: Stand by assist OT - OK to Discharge: Yes Subjective Current Problem: 1. Type 1 diabetes mellitus with hyperglycemia (Multi) Referral to Clinical Pharmacy 2. ESRD (end stage renal disease) (Multi) 3. Kidney replaced by transplant ([facility]) acetaminophen (Tylenol) 325 mg tablet clotrimazole (Mycelex) 10 mg amanda docusate sodium (Colace) 100 mg capsule mycophenolate (Cellcept) 250 mg capsule pantoprazole (ProtoNix) 40 mg EC tablet predniSONE (Deltasone) 5 mg tablet sulfamethoxazole-trimethoprim (Bactrim) 400-80 mg tablet tacrolimus (Prograf) 1 mg capsule valGANciclovir (Valcyte) 450 mg tablet tacrolimus (Prograf) 0.5 mg capsule polyethylene glycol (Glycolax, Miralax) 17 gram/dose powder sevelamer carbonate (Renvela) 800 mg tablet carvedilol (Coreg) 25 mg tablet furosemide (Lasix) 40 mg tablet traMADol (Ultram) 50 mg tablet Referral to Home Health Referral to Clinical Pharmacy CANCELED: Referral to Home Health 4. Urinary retention tamsulosin (Flomax) 0.4 mg 24 hr capsule 5. Hypocalcemia calcitriol (Rocaltrol) 0.25 mcg capsule 6. Steroid-induced hyperglycemia insulin glargine-yfgn 100 unit/mL (3 mL) pen insulin aspart (NovoLOG Flexpen U-100 Insulin) 100 unit/mL (3 mL) pen pen needle, diabetic 32 gauge x 5/32 needle Referral to Clinical Pharmacy General: Reason for Referral: s/p DDKT Past Medical History Relevant to Rehab: ESRD on HD since 12/2015 (MWF, [facility] [facility] [place], Dr. Felipe), CKD sec to DM1 (dx at age 23y), HTN, hyperlipidemia, CAD h/o PCI 2018, depression h/o suicide attempt 2009, h/o PVD s/p Rt toe amputation Prior to Session Communication: Bedside nurse Patient Position Received: Up in chair Family/Caregiver Present: No General Comment: Pt was in supine with HOB elevated at the start of the session. Precautions: Medical Precautions: Fall precautions Post-Surgical Precautions: Abdominal surgery precautions Precautions Comment: R AFO in his shoe Pain: Pain Assessment Pain Assessment: 0-10 0-10 (Numeric) Pain Score: 0 - No pain Objective Cognition: Overall Cognitive Status: Within Functional Limits Orientation Level: Oriented X4 Safety/Judgement: Within Functional Limits Insight: Within function limits Home Living: Type of Home: Mobile home Lives With: Alone (plans to stay with sister upon discharge) Home Adaptive Equipment: Cane Home Layout: One level Home Access: Stairs to enter with rails Entrance Stairs-Rails: Both Bathroom Shower/Tub: Tub/shower unit Bathroom Equipment: (low toilet) Prior Function: Level of [place]: Independent with ADLs and functional transfers, Independent with homemaking with ambulation ADL Assistance: Independent Homemaking Assistance: Independent Ambulatory Assistance: Independent Hand Dominance: Right ADL: Eating Assistance: Independent Grooming Assistance: Independent LE Dressing Assistance: Moderate LE Dressing Deficit: Don/doff R shoe, Don/doff L shoe Activity Tolerance: Endurance: Endurance does not limit participation in activity Balance: Dynamic Standing Balance Dynamic Standing-Balance Support: Bilateral upper extremity supported Dynamic Standing-Level of Assistance: Close supervision Dynamic Standing-Balance: (pt required SBA with functional ambulation using a wheeled walker with good dynamic standing balance.) Bed Mobility/Transfers: Bed Mobility Bed Mobility: Yes Bed Mobility 1 Bed Mobility 1: Supine to sitting, Sitting to supine Level of Assistance 1: Contact guard, Minimal verbal cues Bed Mobility Comments 1: log roll and Transfers Transfer: Yes Transfer 1 Transfer From 1: Bed to Transfer to 1: Stand Technique 1: Sit to stand, Stand to sit Transfer Device 1: Walker Transfer Level of Assistance 1: Close supervision, Minimal verbal cues Vision: and Vision - Complex Assessment Ocular Range of Motion: Within Functional Limits Sensation: Light Touch: No apparent deficits Coordination: Movements are Fluid and Coordinated: Yes Hand Function: Hand Function Gross Grasp: Functional Coordination: Functional Extremities: RUE RUE : Within Functional Limits, LUE LUE: Within Functional Limits, Outcome Measures: [facility] Daily Activity Putting on and taking off regular lower body clothing: A lot Bathing (including washing, rinsing, drying): A little Putting on and taking off regular upper body clothing: A little Toileting, which includes using toilet, bedpan or urinal: A little Taking care of personal grooming such as brushing teeth: None Eating Meals: None Daily Activity - Total Score: 19 , OT Adult Other Outcome Measures 4AT: negative Education Documentation Body Mechanics, taught by Braden Breen OT at 10/19/2024 2:48 PM. Learner: Patient Readiness: Acceptance Method: Explanation Response: Verbalizes Understanding ADL Training, taught by Braden Breen OT at 10/19/2024 2:48 PM. Learner: Patient Readiness: Acceptance Method: Explanation Response: Verbalizes Understanding Education Comments No comments found. Goals: Encounter Problems Encounter Problems (Active) ADLs Patient will perform UB and LB bathing with modified independent level of assistance and grab bars.(Progressing) Start: 10/19/24 Expected End: 11/09/24 Patient with complete lower body dressing with modified independent level of assistance donning anddoffing all LE clothes with PRN adaptive equipment while edge of bed (Progressing) Start: 10/19/24 Expected End: 11/09/24 Patient will complete toileting including hygiene clothing management/hygiene with modified independent level of assistance and grab bars. (Progressing) Start: 10/19/24 Expected End: 11/09/24 MOBILITY Patient will perform Functional mobility min Household distances/Community Distances with modified independent level of assistance and least restrictive device in order to improve safety and functional mobility. (Progressing) Start: 10/19/24 Expected End: 11/09/24 TRANSFERS Patient will perform bed mobility modified independent level of assistance and bed rails in order to improve safety and independence with mobility (Progressing) Start: 10/19/24 Expected End: 11/09/24 Patient will complete sit to stand transfer with modified independent level of assistance and leastrestrictive device in order to improve safety and prepare for out of bed mobility. (Progressing) Start: 10/19/24 Expected End: 11/09/24 10/19/24 at 2:49 PM Braden Breen OTR/OTD Rehab Office: [phone] * Patience Roach - 10/19/2024 10:20 AM EDT Thom Chapin is a 54 y.o. male on day 3 of admission presenting with ESRD (end stage renal disease) (Multi). Transitional Care Coordination Progress Note: Patient discussed during interdisciplinary rounds. Plan per Medical/Surgical team: Pt seen by previous TCC. Please see notes. Home Care choice for home going needs, [facility]. Pt Needs: RN for [place] care. [facility] aware. DC canceled. Discharge disposition: [facility], [facility] Potential Barriers: None ADOD: 10/21 This TCC will continue to follow for home going needs and safe DC plan. PATIENCE ROACH * Simone Westbrook PA-C - 10/19/2024 10:03 AM EDT Images from the original note were not included. Thom Chapin is a 54 y.o. male on day 3 of admission presenting with ESRD (end stage renal disease) (Multi). Subjective Patient seen and evaluated at the bedside. He is eating small meals. CGM trends reveal overnight hypoglycemia last night. Discussed plan to decrease glargine and soften ssi. I have reviewed histories, allergies and medications have been reviewed and there are no changes Objective Review of Systems Constitutional: Positive for activity change, appetite change and fatigue. Negative for diaphoresisand unexpected weight change. HENT: Negative. Negative for sore throat. Eyes: Negative. Respiratory: Negative for cough, chest tightness and shortness of breath. Cardiovascular: Negative for chest pain. Gastrointestinal: Negative for abdominal pain, diarrhea and nausea. Endocrine: Negative for cold intolerance, heat intolerance, polydipsia, polyphagia and polyuria. Genitourinary: Negative for dysuria and frequency. Musculoskeletal: Negative for gait problem and joint swelling. Neurological: Negative for speech difficulty, numbness and headaches. Psychiatric/Behavioral: Negative for agitation, behavioral problems and confusion. Physical Exam Constitutional: General: He is not in acute distress. Appearance: Normal appearance. HENT: Nose: Nose normal. Mouth/Throat: Mouth: Mucous membranes are moist. Pharynx: Oropharynx is clear. Cardiovascular: Rate and Rhythm: Normal rate and regular rhythm. Pulmonary: Effort: Pulmonary effort is normal. No respiratory distress. Abdominal: General: There is no distension. Palpations: Abdomen is soft. Musculoskeletal: General: Normal range of motion. Skin: General: Skin is warm and dry. Neurological: Mental Status: He is alert and oriented to person, place, and time. Psychiatric: Mood and Affect: Mood normal. Behavior: Behavior normal. Last Recorded Vitals Blood pressure 143/85, pulse 81, temperature 35.4 C (95.7 F), temperature source Temporal, resp. rate 18, weight 69.2 kg (152 lb 7.2 oz), SpO2 100%. Intake/Output last 3 Shifts: I/O last 3 completed shifts: In: 2930 (42.4 mL/kg) [P.O.:1930; I.V.:600 (8.7 mL/kg); Other:400] Out: 3540 (51.2 mL/kg) [Urine:1105 (0.4 mL/kg/hr); Drains:35; Other:2400] Weight: 69.1 kg Relevant Results Results from last 7 days Lab Units 10/19/24 1158 10/19/24 0738 10/19/24 0535 10/18/24 1530 10/18/24 1138 10/18/24 0728 10/18/24 0505 10/17/24 1214 10/17/24 0509 10/16/24 0718 10/16/24 0524 10/16/24 0445 10/15/242025 POCT GLUCOSE mg/dL 172* 125* -- 135* 105* 99 -- < > -- < > -- < > -- GLUCOSE mg/dL -- -- 109* -- -- -- 93 -- 116* -- 233* -- 166* < > = values in this interval not displayed. Lab Review Lab Results Component Value Date BILITOT 0.8 10/15/2024 CALCIUM 7.7 (L) 10/19/2024 CO2 28 10/19/2024 CL 96 (L) 10/19/2024 CREATININE 6.34 (H) 10/19/2024 GLUCOSE 109 (H) 10/19/2024 ALKPHOS 81 10/15/2024 K 4.0 10/19/2024 PROT 7.3 10/15/2024 NA 135 (L) 10/19/2024 AST 30 10/15/2024 ALT 14 10/15/2024 BUN 45 (H) 10/19/2024 ANIONGAP 15 10/19/2024 MG 2.08 10/19/2024 PHOS 5.0 (H) 10/19/2024 ALBUMIN 3.1 (L) 10/19/2024 AMYLASE 115 (H) 09/09/2024 Lab Results Component Value Date TRIG 43 08/19/2023 CHOL 102 09/09/2024 LDLCALC 39 08/19/2023 HDL 44.9 09/09/2024 Lab Results Component Value Date HGBA1C 6.5 (H) 09/09/2024 HGBA1C 5.8 (H) 07/03/2024 HGBA1C 6.3 (H) 08/19/2023 Scheduled medications Scheduled Medications[1] Continuous medications Continuous Medications[2] PRN medications PRN Medications[3] Assessment & Plan ESRD (end stage renal disease) (Multi) Type 1 diabetes mellitus Thom Chapin is a 54 y.o. male with a history of ESRD on HD MWF 2/2 T1DM and HTN presenting for DDKT on 10/15/24. Diabetes History Type of diabetes: T1D Year diagnosed or age: age 22 Hospitalizations for DKA or HHS: Patient thinks he was in DKA at time of diagnosis. No further hospitalizations for DKA Complications: nephropathy, retinopathy, PVD Seen by PCP or Endocrinology: PCP - has not seen endocrinology in several years, last bote from [facility] 2021 Frequency of glucose checks: via dexcom G7 Glucose review: Frequency of Hypoglycemia: not very often recently - 2% seen on the past 2 weeks of CGM data - but some appear to be false lows. 0% hypoglycemia on the previous two week summary Hypoglycemia unawareness: yes Severe hypoglycemia requiring assistance from others: Yes, several occasions. Last event about 2 years ago Home Medications Basal: basaglar 10 units every morning Prandial: none Correction: none CGM: Dexcom G7 Previous meds: was on an insulin pump - stopped due to difficulty carb counting and entering appropriate information. Patient states this was more than 5 years ago and he feels that he did not get enough education PLAN Steroids: steroid regimen: methylpred 500mg intra-op methylpred 250 mg x1d methylpred 125mg x1d methylpred 60mg x1d pred 20mg ongoing Nutrition: 60 gram carb consistent - reduce glargine 8 units in the morning If NPO: continue due to steroid hyperglycemia - patient has type 1 diabetes, do not hold. Dose can be reduced if concerned for hypoglycemia - continue lispro 2 units with meal If NPO, please hold. Please hold if patient eats less than 50% of the meal or if pre meal glucose is less than 90 mg/dl - adjust lispro corrective scale #1 with meals, adjust to q4h if NPO or if persistently hyperglycemic >250mg/dL 70-150 = 0u 151-200 = 1u 201-250 = 2u 251-300 = 3u 301-350 = 4u 351-400 = 5u -Accuchecks (not BMP) TIDAC and QHS- kindly ensure QHS Accucheck is drawn; it is often missed - Goal BG 140-180 -Hypoglycemia protocol -Will continue to follow and titrate insulin accordingly Discharge planning: [] patient may expect to discharge home on glargine and lispro, final doses TBD by titration [x]Continue use of Dexcom at discharge [x]will enroll pt in pharmacy [facility] plan program [x]follow up with Simone Westbrook PA-C in PTDM clinic, schedule request sent on 10/18/24 I spent 50 minutes in the professional and overall care of this patient. Simone Westbrook PA-C [1] acetaminophen, 650 mg, oral, Once aspirin, 81 mg, oral, Daily bisacodyl, 10 mg, rectal, Once calcitriol, 0.25 mcg, oral, Daily carvedilol, 25 mg, oral, BID cholecalciferol, 50 mcg, oral, Daily clotrimazole, 10 mg, Mouth/Throat, TID after meals darbepoetin yuri, 100 mcg, subcutaneous, Weekly docusate sodium, 100 mg, oral, BID furosemide, 80 mg, oral, BID [START ON 10/20/2024] insulin glargine, 8 Units, subcutaneous, Daily insulin lispro, 0-5 Units, subcutaneous, TID AC insulin lispro, 2 Units, subcutaneous, TID AC mycophenolate, 1,000 mg, oral, q12h pantoprazole, 40 mg, oral, BID AC polyethylene glycol, 17 g, oral, BID predniSONE, 20 mg, oral, Daily sevelamer carbonate, 800 mg, oral, TID sulfamethoxazole-trimethoprim, 1 tablet, oral, Daily [Held by provider] tacrolimus, 2 mg, oral, q12h AMBER tamsulosin, 0.4 mg, oral, Daily valGANciclovir, 450 mg, oral, q48h [2] [3] PRN medications: acetaminophen, dextrose, dextrose, glucagon, glucagon, hydrALAZINE, naloxone, ondansetron ODT OR ondansetron, oxygen, traMADol, traMADol * Tamie Saunders, PT - 10/18/2024 2:56 PM EDT Images from the original note were not included. Physical Therapy Physical Therapy Evaluation Patient Name: Thom Chapin Department: [place] [id number] Room: [address] [place] [address] Today's Date: 10/18/2024 Time Calculation Start Time: 1154 Stop Time: 1213 Time Calculation (min): 19 min Assessment/Plan PT Assessment PT Assessment Results: Decreased endurance, Impaired balance, Decreased mobility Rehab Prognosis: Good Barriers to Discharge Home: No anticipated barriers Evaluation/Treatment Tolerance: Patient tolerated treatment well Medical Staff Made Aware: Yes End of Session Communication: Bedside nurse Assessment Comment: Patient is a 54yo M s/p DDKT. Patient is indep at baseline. Patient was CGA-SBAfor mobility. dc rec anticipate no needs End of Session Patient Position: Up in chair, Alarm off, not on at start of session IP OR SWING BED PT PLAN Inpatient or Swing Bed: Inpatient PT Plan Treatment/Interventions: Bed mobility, Gait training, Transfer training, Stair training, Balance training, Strengthening, Endurance training, Range of motion, Therapeutic exercise, Therapeutic activity PT Plan: Ongoing PT PT Frequency: 3 times per week PT Discharge Recommendations: No PT needed after discharge Equipment Recommended upon Discharge: Wheeled walker PT Recommended Transfer Status: Assistive device, Stand by assist PT - OK to Discharge: Yes Subjective General Visit Information: General Reason for Referral: s/p DDKT Past Medical History Relevant to Rehab: ESRD on HD since 12/2015 (MWF, [facility] [facility] [place], Dr. Felipe), CKD sec to DM1 (dx at age 23y), HTN, hyperlipidemia, CAD h/o PCI 2018, depression h/o suicide attempt 2009, h/o PVD s/p Rt toe amputation Prior to Session Communication: Bedside nurse Patient Position Received: Up in chair General Comment: pt sitting in chair, RN cleared. pt pleasant and cooperative Home Living: Home Living Type of Home: Mobile home Lives With: Alone (but plans to dc to sisters) Home Adaptive Equipment: Cane Home Layout: One level Home Access: Stairs to enter with rails Entrance Stairs-Rails: Both Entrance Stairs-Number of Steps: 4 Bathroom Shower/Tub: Tub/shower unit Prior Level of Function: Prior Function Per Pt/Caregiver Report Level of [place]: Independent with ADLs and functional transfers, Independent with homemaking with ambulation Receives Help From: (plans to dc to sisters) ADL Assistance: Independent Homemaking Assistance: Independent Ambulatory Assistance: Independent Prior Function Comments: - falls Precautions: Precautions Medical Precautions: Fall precautions Post-Surgical Precautions: Abdominal surgery precautions Date/Time Vitals Session Patient Position Pulse Resp SpO2 BP MAP (mmHg) 10/18/24 1319 -- -- 77 -- 99 % 202/100 -- 10/18/24 1440 -- -- 75 -- 99 % 166/88 -- Objective Pain: Pain Assessment Pain Assessment: 0-10 0-10 (Numeric) Pain Score: 0 - No pain Cognition: Cognition Overall Cognitive Status: Within Functional Limits General Assessments: Activity Tolerance Endurance: Tolerates 10 - 20 min exercise with multiple rests Sensation Light Touch: No apparent deficits Static Sitting Balance Static Sitting-Level of Assistance: Close supervision Static Sitting-Comment/Number of Minutes: 5 min Functional Assessments: Bed Mobility Bed Mobility: (no, in chair) Transfers Transfer: Yes Transfer 1 Transfer From 1: Sit to, Stand to Transfer to 1: Stand, Sit Technique 1: Sit to stand, Stand to sit Transfer Device 1: Walker Transfer Level of Assistance 1: Close supervision Trials/Comments 1: stood from chair 3 times Ambulation/Gait Training Ambulation/Gait Training Performed: Yes Ambulation/Gait Training 1 Surface 1: Level tile Device 1: Rolling walker Assistance 1: Close supervision Quality of Gait 1: Decreased step length Comments/Distance (ft) 1: ambulated 10' x2 to bathroom and back to chair. then 200' in boyd Extremity/Trunk Assessments: RLE RLE : Within Functional Limits LLE LLE : Within Functional Limits Outcome Measures: [facility] Basic Mobility Turning from your back to your side while in a flat bed without using bedrails: A little Moving from lying on your back to sitting on the side of a flat bed without using bedrails: A little Moving to and from bed to chair (including a wheelchair): A little Standing up from a chair using your arms (e.g. wheelchair or bedside chair): A little To walk in hospital room: A little Climbing 3-5 steps with railing: A little Basic Mobility - Total Score: 18 Encounter Problems Encounter Problems (Active) Mobility STG - Patient will ambulate > 200' with LRAD modif indep (Progressing) Start: 10/18/24 Expected End: 11/08/24 STG - Patient will ascend and descend four with BHR modif indep (Progressing) Start: 10/18/24 Expected End: 11/08/24 PT Transfers STG - Patient will perform bed mobility LRAD modif indep (Progressing) Start: 10/18/24 Expected End: 11/08/24 STG - Patient will transfer sit to and from stand LRAD modif indep (Progressing) Start: 10/18/24 Expected End: 11/08/24 Education Documentation Precautions, taught by Tamie Saunders PT at 10/18/2024 2:56 PM. Learner: Patient Readiness: Acceptance Method: Explanation Response: Verbalizes Understanding Comment: edu on role of PT, dc plan and safety Mobility Training, taught by Tamie Saunders PT at 10/18/2024 2:56 PM. Learner: Patient Readiness: Acceptance Method: Explanation Response: Verbalizes Understanding Comment: edu on role of PT, dc plan and safety Education Comments No comments found. * Ivelisse Mcqueen MD - 10/18/2024 2:46 PM EDT Transplant Nephrology progress note Date of admission: 10/15/2024 Thom Chapin is a 54 y.o. with H Medical History[1] SUBJECTIVE: Denied any complaints today. Urine output in last 24 hours is 470 cc weights are up from 68.4 kg to71 kg. PROBLEM LIST: Assessment & Plan ESRD (end stage renal disease) (Multi) Type 1 diabetes mellitus ALLERGIES: Allergies[2] CURRENT MEDICATIONS: Scheduled medications Scheduled Medications[3] Continuous medications Continuous Medications[4] PRN medications PRN Medications[5] OBJECTIVE: VITALS: Visit Vitals BP 166/88 (BP Location: Right arm, Patient Position: Lying) Pulse 75 Temp 35.8 C (96.4 F) (Temporal) Resp 17 Wt 71 kg (156 lb 9.6 oz) SpO2 99% BMI 19.57 kg/m Smoking Status Former BSA 1.94 m General: No distress Mucosa moist AI, AC, AF HEENT: PEERLA CVS: S1 S2 no murmurs RESP: Lungs clear to auscultation ABDO: Soft, Christianson incision with shonna intact and drain intact. Neuro: A + O x 3 Skin: No rash Extremities: No edema LABS: Results from last 72 hours Lab Units 10/18/24 0505 WBC AUTO x10*3/uL 4.3* HEMOGLOBIN g/dL 7.5* MCV fL 74* PLATELETS AUTO x10*3/uL 87* BUN mg/dL 78* CREATININE mg/dL 10.34* CALCIUM mg/dL 7.2* TACROLIMUS ng/mL 10.3 Intake/Output Summary (Last 24 hours) at 10/18/2024 1446 Last data filed at 10/18/2024 1439 Gross per 24 hour Intake 2261 ml Output 1147.5 ml Net 1113.5 ml ASSESSMENT AND PLAN: Thom Chapin is a 54 y.o. with a history of ESRD secondary to hypertension, RCA 50% stenosis and prior LAD stent currently status post DDKT on 10/15/2024. Kidney info: KDPI of the kidneys are 40%, PRA 22%, significant calcification of the iliac arteries on aspirin 81. Allograft function: - DGF due to uremia and volume overload-planning dialysis today - Outpatient dialysis slot Friday at 7:30 AM. - Ultrasound unremarkable simple renal cyst 1.8x 2.1x 1.8 cm within the transplant kidney, mild perinephric collection 5.6x 1.2x 4.9 cm with the Dopplers mildly increased in the upper pole likely postoperative hematoma. - On Lasix 80 p.o. twice daily Immunosuppression: Thymoglobulin 4.5 mg/kg completed. - Will be maintained on triple immunosuppression. - Infectious prophylaxis: On clotrimazole, Bactrim and Valcyte Anemia/leukopenia: - Need iron, B12 and folate levels to be checked. Bone mineral disease: Phos levels mildly elevated currently on Renvela Hemodynamics: Not well-controlled on carvedilol 25 twice daily, Lasix 80 twice daily. Can start nifedipine. Thank you for consulting . Charisse Oviedo MD Notes created by Lana -Please excuse the Typos . [1] Past Medical History: Diagnosis Date CKD (chronic kidney disease) stage 4, GFR 15-29 ml/min (Multi) [2] Allergies Allergen Reactions Calcium Hives [3] acetaminophen, 650 mg, oral, Once aspirin, 81 mg, oral, Daily carvedilol, 25 mg, oral, BID cholecalciferol, 50 mcg, oral, Daily clotrimazole, 10 mg, Mouth/Throat, TID after meals darbepoetin yuri, 100 mcg, subcutaneous, Weekly docusate sodium, 100 mg, oral, BID furosemide, 80 mg, oral, BID insulin glargine, 10 Units, subcutaneous, Daily insulin lispro, 0-10 Units, subcutaneous, TID AC insulin lispro, 2 Units, subcutaneous, TID AC mycophenolate, 1,000 mg, oral, q12h pantoprazole, 40 mg, oral, BID AC polyethylene glycol, 17 g, oral, BID [START ON 10/19/2024] predniSONE, 20 mg, oral, Daily sevelamer carbonate, 800 mg, oral, TID sulfamethoxazole-trimethoprim, 1 tablet, oral, Daily tacrolimus, 3 mg, oral, q12h valGANciclovir, 450 mg, oral, q48h [4] [5] PRN medications: acetaminophen, dextrose, dextrose, glucagon, glucagon, hydrALAZINE, naloxone, ondansetron ODT OR ondansetron, oxyCODONE, oxygen, traMADol, traMADol * JuanF BlueD - 10/18/2024 2:42 PM EDT Pharmacist Transplant Education Note The medications for Thom Chapin were reviewed in conjunction with the multidisciplinary transplant team. The pharmacist is in agreement with the plan of care for medications at this time. Approximately 40 minutes were spent with this patient providing medication education and reviewing new post-transplant medications. The patient was not accompanied by any family or friends when the education was provided. An outpatient dosing schedule was created for all oral medications. This schedule was discussed in detail with the patient, including drug name, use, dose, and the appropriate timing of self-administration (i.e. with or without meals, with or without other medications). Also discussed side effects,drug interactions, and the importance of adherence. Both verbal and written instructions were givento the patient outlining the appropriate use of all current oral medications. The patient demonstrated an acceptable understanding of his current medication list. All questions were answered to the patient's satisfaction, and the patient confirmed understanding. Follow-up education will take place prior to discharge where a finalized list of discharge medications will be reviewed with the patient. Further educational reinforcement should be provided in the outpatient clinic. Tigist Kothari PharmD, BCTXP Clinical Vp Training - Solid Organ Transplant * Nathan Lizarraga MD - 10/18/2024 2:25 PM EDT Thom Chapin is a 54 y.o. male now POD # 3 s/p DDKT transplant. Subjective Urine increased to 470 No BM +OOB Persistent DGF, Cr increased to 10.3 Objective Physical Exam Gen: A+OX3; NAD Abd: S/NT/ND. Incision C/D/I. Drains: Serosanguinous, removed Ext: 2+ LE edema Last Recorded Vitals Blood pressure (!) 202/100, pulse 77, temperature 35.8 C (96.4 F), temperature source Temporal, resp. rate 17, weight 71 kg (156 lb 9.6 oz), SpO2 99%. Intake/Output last 3 Shifts: I/O last 3 completed shifts: In: 2525.9 (36.9 mL/kg) [P.O.:1520; I.V.:90 (1.3 mL/kg); Blood:394.9; IV Piggyback:521] Out: 625 (9.1 mL/kg) [Urine:570 (0.2 mL/kg/hr); Drains:55] Weight: 68.4 kg Lab Results Component Value Date CREATININE 10.34 (H) 10/18/2024 K 4.3 10/18/2024 GLUCOSE 93 10/18/2024 HGB 7.5 (L) 10/18/2024 WBC 4.3 (L) 10/18/2024 PLT 87 (L) 10/18/2024 CALCIUM 7.2 (L) 10/18/2024 Current Medications[1] Assessment/Plan 54 y/o M w/ ESRD 2/2 HTN. Hx RCA 50% stenosis and prior LAD stent. S/p DDKT 10/15/24 KDPI 40%. Significant douglas iliac vessel calcifications No HD yet but low UOP - reassess for HD tomorrow Continue RICARDO Lasix 80 PO ASA 81 mg Interval US today Immunosuppression Reviewed and Adjusted PRA 22% Thymo completed Tac 3 mg po BID. Level 10.3, decrease to 2.5 mg MMF 1000 BID Steroid taper 3. ID Prophylaxis Bactrim Valcyte Clotrimazole 4. Anemia Aranesp 10/16 1 unit RBC today Donor Kidney Info: Etiology: Risk: no KDPI: 40 % PRA: 22 % CMV: D+/R+ EBV: D+/R+ Toxo: Donor Negative HCV Ab/MEGHAN: Negative HBcAB: Negative HBsAg/HBV MEGHAN: Negative I spent 30 minutes in the professional and overall care of this patient. Case was presented at Multi D team round. Attending physician, consulting physician, pediatric social worker,pharmacist, residents and fellow were present at the meeting. Nathan Lizarraga MD [1] Current Facility-Administered Medications: acetaminophen (Tylenol) tablet 650 mg, 650 mg, oral, q6h PRN, Omar Noriega MD acetaminophen (Tylenol) tablet 650 mg, 650 mg, oral, Once, Pauline Pittman APRN-OLIVERIO aspirin EC tablet 81 mg, 81 mg, oral, Daily, Tan Isbell MD, 81 mg at 10/18/24 0800 carvedilol (Coreg) tablet 25 mg, 25 mg, oral, BID, SIN Solano cholecalciferol (Vitamin D-3) tablet 50 mcg, 50 mcg, oral, Daily, SIN Solano, 50 mcg at 10/18/24 1020 clotrimazole (Mycelex) amanda 10 mg, 10 mg, Mouth/Throat, TID after meals, Omar Noriega MD, 10 mg at 10/18/24 1228 darbepoetin yuri (Aranesp) injection 100 mcg, 100 mcg, subcutaneous, Weekly, Luis Bunch MD, 100 mcg at 10/16/24 1247 dextrose 50 % injection 12.5 g, 12.5 g, intravenous, q15 min PRN, Omar Noriega MD dextrose 50 % injection 25 g, 25 g, intravenous, q15 min PRN, Omar Noriega MD docusate sodium (Colace) capsule 100 mg, 100 mg, oral, BID, Omar Noriega MD, 100 mg at 10/18/24 0801 furosemide (Lasix) tablet 80 mg, 80 mg, oral, BID, SIN Solano glucagon (Glucagen) injection 1 mg, 1 mg, intramuscular, q15 min PRN, Omar Noriega MD glucagon (Glucagen) injection 1 mg, 1 mg, intramuscular, q15 min PRN, Omar Noriega MD hydrALAZINE (Apresoline) injection 10 mg, 10 mg, intravenous, q6h PRN, SIN Solano, 10 mg at 10/18/24 1333 insulin glargine (Lantus) injection 10 Units, 10 Units, subcutaneous, Daily, SIN Marti, 10 Units at 10/18/24 1020 insulin lispro injection 0-10 Units, 0-10 Units, subcutaneous, TID AC, Omar Noriega MD, 2 Units at10/17/24 1847 insulin lispro injection 2 Units, 2 Units, subcutaneous, TID AC, SIN Marti, 2 Units at10/17/24 1915 mycophenolate (Cellcept) capsule 1,000 mg, 1,000 mg, oral, q12h, Omar Noriega MD, 1,000 mg at 10/18/24 0631 naloxone (Narcan) injection 0.2 mg, 0.2 mg, intravenous, q5 min PRN, Omar Noriega MD ondansetron ODT (Zofran-ODT) disintegrating tablet 4 mg, 4 mg, oral, q8h PRN OR ondansetron (Zofran) injection 4 mg, 4 mg, intravenous, q8h PRN, Omar Noriega MD, 4 mg at 10/16/24 0452 oxyCODONE (Roxicodone) immediate release tablet 5 mg, 5 mg, oral, q4h PRN, Omar Noriega MD oxygen (O2) therapy, , inhalation, Continuous PRN - O2/gases, Omar Noriega MD pantoprazole (ProtoNix) EC tablet 40 mg, 40 mg, oral, BID AC, Omar Noriega MD, 40 mg at 10/18/24 0631 polyethylene glycol (Glycolax, Miralax) packet 17 g, 17 g, oral, BID, Pauline L Zain, SIPHONER-EXHAUST EMISSIONS INSPECTOR, 17 g at 10/18/24 0805 [START ON 10/19/2024] predniSONE (Deltasone) tablet 20 mg, 20 mg, oral, Daily, Omar Noriega MD sevelamer carbonate (Renvela) tablet 800 mg, 800 mg, oral, TID, Pauline L [place], SIPHONER-EXHAUST EMISSIONS INSPECTOR, 800 mg at 10/18/24 1228 sulfamethoxazole-trimethoprim (Bactrim) 400-80 mg per tablet 1 tablet, 1 tablet, oral, Daily, EricaL Zain, SIPHONER-EXHAUST EMISSIONS INSPECTOR, 1 tablet at 10/18/24 0806 tacrolimus (Prograf) capsule 3 mg, 3 mg, oral, q12h, Radha Pearce MD, 3 mg at 10/18/24 0631 traMADol (Ultram) tablet 25 mg, 25 mg, oral, q8h PRN, Paloma Massey SIPHONER-OLIVERIO traMADol (Ultram) tablet 50 mg, 50 mg, oral, q8h PRN, Paloma Massey SIPHONER-OLIVERIO valGANciclovir (Valcyte) tablet 450 mg, 450 mg, oral, q48h, Luis Bunch MD, 450 mg at 10/18/24 1228 * Simone Westbrook PA-C - 10/18/2024 12:38 PM EDT Images from the original note were not included. Thom Chapin is a 54 y.o. male on day 2 of admission presenting with ESRD (end stage renal disease) (Multi). Subjective Patient seen and evaluated at the bedside. He is eating small meals. Glucose down to 105 before lunch. Reviewed insulin plan for the day as well as general plan for diabetes follow up. I have reviewed histories, allergies and medications have been reviewed and there are no changes Objective Review of Systems Constitutional: Positive for activity change, appetite change and fatigue. Negative for diaphoresisand unexpected weight change. HENT: Negative. Negative for sore throat. Eyes: Negative. Respiratory: Negative for cough, chest tightness and shortness of breath. Cardiovascular: Negative for chest pain. Gastrointestinal: Negative for abdominal pain, diarrhea and nausea. Endocrine: Negative for cold intolerance, heat intolerance, polydipsia, polyphagia and polyuria. Genitourinary: Negative for dysuria and frequency. Musculoskeletal: Negative for gait problem and joint swelling. Neurological: Negative for speech difficulty, numbness and headaches. Psychiatric/Behavioral: Negative for agitation, behavioral problems and confusion. Physical Exam Constitutional: General: He is not in acute distress. Appearance: Normal appearance. HENT: Nose: Nose normal. Mouth/Throat: Mouth: Mucous membranes are moist. Pharynx: Oropharynx is clear. Cardiovascular: Rate and Rhythm: Normal rate and regular rhythm. Pulmonary: Effort: Pulmonary effort is normal. No respiratory distress. Abdominal: General: There is no distension. Palpations: Abdomen is soft. Musculoskeletal: General: Normal range of motion. Skin: General: Skin is warm and dry. Neurological: Mental Status: He is alert and oriented to person, place, and time. Psychiatric: Mood and Affect: Mood normal. Behavior: Behavior normal. Last Recorded Vitals Blood pressure (!) 188/105, pulse 82, temperature 35.8 C (96.4 F), temperature source Temporal, resp. rate 17, weight 71 kg (156 lb 9.6 oz), SpO2 98%. Intake/Output last 3 Shifts: I/O last 3 completed shifts: In: 2525.9 (36.9 mL/kg) [P.O.:1520; I.V.:90 (1.3 mL/kg); Blood:394.9; IV Piggyback:521] Out: 625 (9.1 mL/kg) [Urine:570 (0.2 mL/kg/hr); Drains:55] Weight: 68.4 kg Relevant Results Results from last 7 days Lab Units 10/18/24 1138 10/18/24 0728 10/18/24 0505 10/17/24 2040 10/17/24 1646 10/17/24 1214 10/17/24 0509 10/16/24 0718 10/16/24 0524 10/16/24 0445 10/15/246 10/15/24201010/15/24 1351 POCT GLUCOSE mg/dL 105* 99 -- 118* 161* 82 -- < > -- < > -- < > -- GLUCOSE mg/dL -- -- 93 -- -- -- 116* -- 233* -- 166* -- 122* < > = values in this interval not displayed. Lab Review Lab Results Component Value Date BILITOT 0.8 10/15/2024 CALCIUM 7.2 (L) 10/18/2024 CO2 22 10/18/2024 CL 93 (L) 10/18/2024 CREATININE 10.34 (H) 10/18/2024 GLUCOSE 93 10/18/2024 ALKPHOS 81 10/15/2024 K 4.3 10/18/2024 PROT 7.3 10/15/2024 NA 131 (L) 10/18/2024 AST 30 10/15/2024 ALT 14 10/15/2024 BUN 78 (H) 10/18/2024 ANIONGAP 20 10/18/2024 MG 2.15 10/18/2024 PHOS 7.7 (H) 10/18/2024 ALBUMIN 3.1 (L) 10/18/2024 AMYLASE 115 (H) 09/09/2024 Lab Results Component Value Date TRIG 43 08/19/2023 CHOL 102 09/09/2024 LDLCALC 39 08/19/2023 HDL 44.9 09/09/2024 Lab Results Component Value Date HGBA1C 6.5 (H) 09/09/2024 HGBA1C 5.8 (H) 07/03/2024 HGBA1C 6.3 (H) 08/19/2023 The ASCVD Risk score (Ashley CARTAGENA, et al., 2019) failed to calculate for the following reasons: Risk score cannot be calculated because patient has a medical history suggesting prior/existing ASCVD Scheduled medications Scheduled Medications[1] Continuous medications Continuous Medications[2] PRN medications PRN Medications[3] Assessment & Plan ESRD (end stage renal disease) (Multi) Type 1 diabetes mellitus Thom Chapin is a 54 y.o. male with a history of ESRD on HD MWF 2/2 T1DM and HTN presenting for DDKT on 10/15/24. Diabetes History Type of diabetes: T1D Year diagnosed or age: age 22 Hospitalizations for DKA or HHS: Patient thinks he was in DKA at time of diagnosis. No further hospitalizations for DKA Complications: nephropathy, retinopathy, PVD Seen by PCP or Endocrinology: PCP - has not seen endocrinology in several years, last bote from [facility] 2021 Frequency of glucose checks: via dexcom G7 Glucose review: Frequency of Hypoglycemia: not very often recently - 2% seen on the past 2 weeks of CGM data - but some appear to be false lows. 0% hypoglycemia on the previous two week summary Hypoglycemia unawareness: yes Severe hypoglycemia requiring assistance from others: Yes, several occasions. Last event about 2 years ago Home Medications Basal: basaglar 10 units every morning Prandial: none Correction: none CGM: Dexcom G7 Previous meds: was on an insulin pump - stopped due to difficulty carb counting and entering appropriate information. Patient states this was more than 5 years ago and he feels that he did not get enough education PLAN Steroids: steroid regimen: methylpred 500mg intra-op methylpred 250 mg x1d methylpred 125mg x1d methylpred 60mg x1d pred 20mg ongoing Nutrition: 60 gram carb consistent - continue glargine 10 units in the morning If NPO: continue due to steroid hyperglycemia - patient has type 1 diabetes, do not hold. Dose can be reduced if concerned for hypoglycemia - continue 5 units NPH daily in the morning with steroid today, then stop after today's dose If NPO, please give the dose - continue lispro 2 units with meal If NPO, please hold. Please hold if patient eats less than 50% of the meal or if pre meal glucose is less than 90 mg/dl - continue lispro corrective scale #2 with meals, adjust to q4h if NPO or if persistently hyperglycemic 70-150 = 0u 151-200 = 2u 201-250 = 4u 251-300 = 6u 301-350 = 8u 351-400 = 10u -Accuchecks (not BMP) TIDAC and QHS- kindly ensure QHS Accucheck is drawn; it is often missed - Goal BG 140-180 -Hypoglycemia protocol -Will continue to follow and titrate insulin accordingly Discharge planning: [] patient may expect to discharge home on glargine and lispro, final doses TBD by titration [x]Continue use of Dexcom at discharge []will enroll pt in pharmacy tun[facility]-bil[facility]i plan program [x]follow up with Simone Westbrook PA-C in PTDM clinic, schedule request sent on 10/18/24 I spent 50 minutes in the professional and overall care of this patient. Simone Westbrook PA-C [1] acetaminophen, 650 mg, oral, Once aspirin, 81 mg, oral, Daily carvedilol, 12.5 mg, oral, BID cholecalciferol, 50 mcg, oral, Daily clotrimazole, 10 mg, Mouth/Throat, TID after meals darbepoetin yuri, 100 mcg, subcutaneous, Weekly docusate sodium, 100 mg, oral, BID furosemide, 80 mg, oral, BID insulin glargine, 10 Units, subcutaneous, Daily insulin lispro, 0-10 Units, subcutaneous, TID AC insulin lispro, 2 Units, subcutaneous, TID AC insulin NPH (Isophane), 5 Units, subcutaneous, Daily mycophenolate, 1,000 mg, oral, q12h pantoprazole, 40 mg, oral, BID AC polyethylene glycol, 17 g, oral, BID [START ON 10/19/2024] predniSONE, 20 mg, oral, Daily sevelamer carbonate, 800 mg, oral, TID sulfamethoxazole-trimethoprim, 1 tablet, oral, Daily tacrolimus, 3 mg, oral, q12h valGANciclovir, 450 mg, oral, q48h [2] [3] PRN medications: acetaminophen, dextrose, dextrose, glucagon, glucagon, naloxone, ondansetron ODT OR ondansetron, oxyCODONE, oxygen, traMADol, traMADol * Tigist Kotahri PharmD - 10/18/2024 8:49 AM EDT Pharmacist Post-Transplant Note The Clinical Transplant Pharmacist is aware that Thom Chapin has been admitted and has undergone kidney transplantation. A transplant pharmacist will be rounding with the multidisciplinary transplant team and making recommendations on his medication regimen. The patient's medications have been reviewed in conjunction with the multidisciplinary transplant team. The pharmacist is in agreement with the plan of care for medications at this time. Patient and donor factors were screened to determine the appropriate post- transplant protocol and current immunosuppression plan includes: Induction Regimen: Antithymocyte globulin due to kidney transplant Maintenance Regimen: Standard maintenance immunosuppression with tacrolimus, mycophenolate, and a steroid taper. Maintenance immunosuppression and anti-infective prophylaxis will begin according to protocol. Homemedications will begin when the patient is clinically stable. Of note, CMV D+/R+ so patient will require 3 months of CMV prophylaxis with valganciclovir per protocol. Tigist Kothari PharmD, BCTXP Clinical Vp Training - Solid Organ Transplant * Eli Quezada MD - 10/17/2024 9:30 PM EDT Thom Chapin is a 54 y.o. male now POD # 2 s/p DDKT transplant. Subjective U 110 RICARDO 35 Low UOP No BM +OOB Objective Physical Exam Gen: A+OX3; NAD Abd: S/NT/ND. Incision C/D/I. Drains: Serosanguinous Ext: no LE edema Last Recorded Vitals Blood pressure (!) 191/96, pulse 83, temperature 36.2 C (97.2 F), temperature source Temporal, resp. rate 19, weight 68 kg (149 lb 14.6 oz), SpO2 98%. Intake/Output last 3 Shifts: I/O last 3 completed shifts: In: 3025.9 (44.5 mL/kg) [P.O.:1770; I.V.:340 (5 mL/kg); Blood:394.9; IV Piggyback:521] Out: 345 (5.1 mL/kg) [Urine:280 (0.1 mL/kg/hr); Drains:65] Weight: 68 kg Lab Results Component Value Date CREATININE 8.20 (H) 10/17/2024 K 4.1 10/17/2024 GLUCOSE 116 (H) 10/17/2024 HGB 8.0 (L) 10/17/2024 WBC 7.8 10/17/2024 PLT 81 (L) 10/17/2024 CALCIUM 6.8 (L) 10/17/2024 Current Medications[1] Assessment/Plan 54 y/o M w/ ESRD 2/2 HTN. Hx RCA 50% stenosis and prior LAD stent. S/p DDKT 5/9/25 KDPI 40%. Significant douglas iliac vessel calcifications No HD yet but low UOP - reassess for HD tomorrow Continue RICARDO Lasix 80 IV TID ASA 81 mg Interval US today Immunosuppression PRA 22% Thymo goal 4.5 mg/kg - last dose today Tac MMF 1000 BID Steroid taper 3. ID Prophylaxis Bactrim Valcyte Clotrimazole 4. Anemia Aranesp 10/16 1 unit RBC today Donor Kidney Info: Etiology: Risk: no KDPI: 40 % PRA: 22 % CMV: D+/R+ EBV: D+/R+ Toxo: Donor Negative HCV Ab/MEGHAN: Negative HBcAB: Negative HBsAg/HBV MEGHAN: Negative I spent 35 minutes in the professional and overall care of this patient. Case was presented at Multi D team round. Attending physician, consulting physician, pediatric social worker,pharmacist, residents and fellow were present at the meeting. Eli Quezada MD [1] Current Facility-Administered Medications: acetaminophen (Tylenol) tablet 650 mg, 650 mg, oral, q6h PRN, Omar Noriega MD acetaminophen (Tylenol) tablet 650 mg, 650 mg, oral, Once, Pauline L Zain, SIPHONER-EXHAUST EMISSIONS INSPECTOR anti-thymocyte globulin rabbit (Thymoglobulin) 100 mg, hydrocortisone sodium succinate (PF) (Solu-CORTEF) 20 mg, heparin 1,000 Units in sodium chloride 0.9% 500 mL IV, 1.5 mg/kg, intravenous, Once, Pauline L [place], SIPHONER-EXHAUST EMISSIONS INSPECTOR, 100 mg at 10/17/24 1548 aspirin EC tablet 81 mg, 81 mg, oral, Daily, Tan Isbell MD clotrimazole (Mycelex) amanda 10 mg, 10 mg, Mouth/Throat, TID after meals, Omar Noriega MD, 10 mg at 10/17/24 1846 darbepoetin yuri (Aranesp) injection 100 mcg, 100 mcg, subcutaneous, Weekly, Luis Bunch MD, 100 mcg at 10/16/24 1247 dextrose 50 % injection 12.5 g, 12.5 g, intravenous, q15 min PRN, Omar Noriega MD dextrose 50 % injection 25 g, 25 g, intravenous, q15 min PRN, Omar Noriega MD docusate sodium (Colace) capsule 100 mg, 100 mg, oral, BID, Omar Noriega MD, 100 mg at 10/17/242038 furosemide (Lasix) injection 80 mg, 80 mg, intravenous, q8h AMBER, Omar Noriega MD, 80 mg at 10/17/241845 glucagon (Glucagen) injection 1 mg, 1 mg, intramuscular, q15 min PRN, Omar Noriega MD glucagon (Glucagen) injection 1 mg, 1 mg, intramuscular, q15 min PRN, Omar Noriega MD HYDROmorphone PF (Dilaudid) injection 0.2 mg, 0.2 mg, intravenous, q3h PRN, Omar Noriega MD insulin glargine (Lantus) injection 10 Units, 10 Units, subcutaneous, Daily, SIN Marti, 10 Units at 10/17/240 insulin lispro injection 0-10 Units, 0-10 Units, subcutaneous, TID AC, Omar Noriega MD, 2 Units at10/17/241846 insulin lispro injection 2 Units, 2 Units, subcutaneous, TID AC, Pauline Pittman APRN-EXHAUST EMISSIONS INSPECTOR, 2 Units at10/17/24 191 insulin NPH (Isophane) (HumuLIN N,NovoLIN N) injection 5 Units, 5 Units, subcutaneous, Daily, SIN Pate, 5 Units at 10/17/24 1022 [START ON 10/18/2024] methylPREDNISolone sod succinate (SOLU-Medrol) injection 60 mg, 60 mg, intravenous, Once, Omar Noriega MD mycophenolate (Cellcept) capsule 1,000 mg, 1,000 mg, oral, q12h, Omar Noriega MD, 1,000 mg at 10/17/241848 naloxone (Narcan) injection 0.2 mg, 0.2 mg, intravenous, q5 min PRN, Omar Noriega MD ondansetron ODT (Zofran-ODT) disintegrating tablet 4 mg, 4 mg, oral, q8h PRN OR ondansetron (Zofran) injection 4 mg, 4 mg, intravenous, q8h PRN, Omar Noriega MD, 4 mg at 10/16/24 0452 oxyCODONE (Roxicodone) immediate release tablet 10 mg, 10 mg, oral, q4h PRN, Omar Noriega MD, 10 mg at 10/17/24 1023 oxyCODONE (Roxicodone) immediate release tablet 5 mg, 5 mg, oral, q4h PRN, Omar Noriega MD oxygen (O2) therapy, , inhalation, Continuous PRN - O2/gases, Omar Noriega MD pantoprazole (ProtoNix) EC tablet 40 mg, 40 mg, oral, BID AC, Omar Noriega MD, 40 mg at 10/17/24 1548 polyethylene glycol (Glycolax, Miralax) packet 17 g, 17 g, oral, BID, Pauline L [place], SIPHONER-EXHAUST EMISSIONS INSPECTOR, 17 g at 10/17/242038 [START ON 10/19/2024] predniSONE (Deltasone) tablet 20 mg, 20 mg, oral, Daily, Omar Noriega MD sevelamer carbonate (Renvela) tablet 800 mg, 800 mg, oral, TID, Pauline L Zain, SIPHONER-EXHAUST EMISSIONS INSPECTOR, 800 mg at 10/17/24 1849 sulfamethoxazole-trimethoprim (Bactrim) 400-80 mg per tablet 1 tablet, 1 tablet, oral, Daily, EricaL [place], SIPHONER-EXHAUST EMISSIONS INSPECTOR, 1 tablet at 10/17/24 1025 tacrolimus (Prograf) capsule 3 mg, 3 mg, oral, q12h, Radha Pearce MD, 3 mg at 10/17/24 1849 valGANciclovir (Valcyte) tablet 450 mg, 450 mg, oral, q48h, Luis Bunch MD, 450 mg at 10/16/24 1247 * Mariaa Dwyer MD - 10/17/2024 6:24 PM EDT Images from the original note were not included. INPATIENT TRANSPLANT NEPHROLOGY PROGRESS NOTE REASON FOR CONSULT: Immunosuppressive medication management and nephrology related issues. SUBJECTIVE: 54 Y.O. Male with ESKD 2/2 DM and HTN, had been on HD MWF. 12/2023 LHC RCA 50%, mild in-stent LAD stenosis s/p DDKT 10/15/24, PRA 22%. KDPI 40%. CMV +/+. 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 1u prbcs given intraoperatively. Induction with thymo 4.5 mg/kg (completed today). Now POD2. On baby ASA. On Tac, MMF and steroid taper. Bactrim SS/Valcyte/Clotrimazole were ordered. SLOW graftfunction. No HD post op yet. UOP 100 CC yesterday. Likely need HD tomorrow. No acute events overnight. PHYCISCAL EXAMINATION: Vitals: 10/17/24 1556 BP: (!) 171/93 Pulse: 83 Resp: 18 Temp: 36.8 C (98.2 F) SpO2: 99% 10/15 1900 - 10/17 0659 In: 3387.5 [P.O.:870; I.V.:580] Out: 607 [Urine:169; Drains:438] Weight change: 1.741 kg (3 lb 13.4 oz) General Appearance - NAD, Good speech, oriented and alert HEENT - Supple. Not pale. No jaundice. No cervical lymphadenopathy. Pharynx and tonsils are not injected. CVS - RRR. Normal S1/S2. No murmur, click , rub or gallop Lungs- clear to auscultation bilaterally Abdomen - soft , not tender, no guarding, no rigidity. No hepatosplenomegaly. Normal bowel sounds. No masses and ascites. S/P Kidney transplant. No wound infection. Musculoskeletal /Extremities - no edema. Full ROM. No joint tenderness. Neuro/Psych - appropriate mood and affect. Motor power V/V all extremities. CN I -XII were grossly intact. Skin - No visible rash MEDICATION LIST: REVIEWED acetaminophen, 650 mg, Once antithymocyte globulin (rabbit), 1.5 mg/kg, Once [Held by provider] aspirin, 81 mg, Daily calcium carbonate, 500 mg, BID clotrimazole, 10 mg, TID after meals darbepoetin yuri, 100 mcg, Weekly docusate sodium, 100 mg, BID furosemide, 80 mg, q8h AMBER insulin glargine, 10 Units, Daily insulin lispro, 0-10 Units, TID AC insulin lispro, 2 Units, TID AC insulin NPH (Isophane), 5 Units, Daily [START ON 10/18/2024] methylPREDNISolone sodium succinate (PF), 60 mg, Once mycophenolate, 1,000 mg, q12h pantoprazole, 40 mg, BID AC polyethylene glycol, 17 g, BID [START ON 10/19/2024] predniSONE, 20 mg, Daily sevelamer carbonate, 800 mg, TID sulfamethoxazole-trimethoprim, 1 tablet, Daily tacrolimus, 3 mg, q12h valGANciclovir, 450 mg, q48h acetaminophen, 650 mg, q6h PRN dextrose, 12.5 g, q15 min PRN dextrose, 25 g, q15 min PRN glucagon, 1 mg, q15 min PRN glucagon, 1 mg, q15 min PRN HYDROmorphone, 0.2 mg, q3h PRN naloxone, 0.2 mg, q5 min PRN ondansetron ODT, 4 mg, q8h PRN Or ondansetron, 4 mg, q8h PRN oxyCODONE, 10 mg, q4h PRN oxyCODONE, 5 mg, q4h PRN oxygen, , Continuous PRN - O2/gases ALLERGY: Allergies[1] LABS: Results for orders placed or performed during the hospital encounter of 10/15/24 (from the past 24 hours) POCT GLUCOSE Result Value Ref Range POCT Glucose 169 (H) 74 - 99 mg/dL Magnesium Result Value Ref Range Magnesium 2.00 1.60 - 2.40 mg/dL Renal Function Panel Result Value Ref Range Glucose 116 (H) 74 - 99 mg/dL Sodium 134 (L) 136 - 145 mmol/L Potassium 4.1 3.5 - 5.3 mmol/L Chloride 95 (L) 98 - 107 mmol/L Bicarbonate 25 21 - 32 mmol/L Anion Gap 18 10 - 20 mmol/L Urea Nitrogen 59 (H) 6 - 23 mg/dL Creatinine 8.20 (H) 0.50 - 1.30 mg/dL eGFR 7 (L) >60 mL/min/1.73m*2 Calcium 6.8 (L) 8.6 - 10.6 mg/dL Phosphorus 7.8 (H) 2.5 - 4.9 mg/dL Albumin 3.0 (L) 3.4 - 5.0 g/dL CBC and Auto Differential Result Value Ref Range WBC 6.5 4.4 - 11.3 x10*3/uL nRBC 0.0 0.0 - 0.0 /100 WBCs RBC 2.86 (L) 4.50 - 5.90 x10*6/uL Hemoglobin 7.0 (L) 13.5 - 17.5 g/dL Hematocrit 21.5 (L) 41.0 - 52.0 % MCV 75 (L) 80 - 100 fL MCH 24.5 (L) 26.0 - 34.0 pg MCHC 32.6 32.0 - 36.0 g/dL RDW 17.1 (H) 11.5 - 14.5 % Platelets 84 (L) 150 - 450 x10*3/uL Neutrophils % 94.6 40.0 - 80.0 % Immature Granulocytes %, Automated 0.5 0.0 - 0.9 % Lymphocytes % 0.9 13.0 - 44.0 % Monocytes % 3.8 2.0 - 10.0 % Eosinophils % 0.0 0.0 - 6.0 % Basophils % 0.2 0.0 - 2.0 % Neutrophils Absolute 6.18 1.20 - 7.70 x10*3/uL Immature Granulocytes Absolute, Automated 0.03 0.00 - 0.70 x10*3/uL Lymphocytes Absolute 0.06 (L) 1.20 - 4.80 x10*3/uL Monocytes Absolute 0.25 0.10 - 1.00 x10*3/uL Eosinophils Absolute 0.00 0.00 - 0.70 x10*3/uL Basophils Absolute 0.01 0.00 - 0.10 x10*3/uL Tacrolimus Result Value Ref Range Tacrolimus 3.4 <=15.0 ng/mL POCT GLUCOSE Result Value Ref Range POCT Glucose 82 74 - 99 mg/dL CBC Result Value Ref Range WBC 7.8 4.4 - 11.3 x10*3/uL nRBC 0.0 0.0 - 0.0 /100 WBCs RBC 3.37 (L) 4.50 - 5.90 x10*6/uL Hemoglobin 8.0 (L) 13.5 - 17.5 g/dL Hematocrit 25.6 (L) 41.0 - 52.0 % MCV 76 (L) 80 - 100 fL MCH 23.7 (L) 26.0 - 34.0 pg MCHC 31.3 (L) 32.0 - 36.0 g/dL RDW 17.4 (H) 11.5 - 14.5 % Platelets 81 (L) 150 - 450 x10*3/uL POCT GLUCOSE Result Value Ref Range POCT Glucose 161 (H) 74 - 99 mg/dL IMAGING RESULT: Reviewed with surgery. ASSESSMENT AND PLAN: Mr. Chapin is a 54 y.o. male who underwent kidney transplant surgery on 10/15/2024 (Kidney). Transplant nephrology is consulted to assist with immunosuppressive medication management, and nephrology related issues. Principal Problem: ESRD (end stage renal disease) (Multi) Active Problems: Type 1 diabetes mellitus 1. ESRD S/P Kidney transplant. - Renal allograft function: Lab Results Component Value Date CREATININE 8.20 (H) 10/17/2024 Estimated Creatinine Clearance: 9.7 mL/min (A) (by C-G formula based on SCr of 8.2 mg/dL (H)). Intake/Output Summary (Last 24 hours) at 10/17/2024 1824 Last data filed at 10/17/2024 1548 Gross per 24 hour Intake 2024.92 ml Output 260 ml Net 1765.92 ml - Indication for dialysis: None today - Continue to monitor UOP and Serum creatinine closely. - Avoid nephrotoxic agents, NSAIDs and IV contrast - Strict I/O. - Renally dose all medications by the most recent CrCl from Cockcroft-Gault formula. 2. Immunosuppression - Induction with thymo 4.5 mg/kg (completed today). On Tac, MMF and steroid taper. 3. Anemia and WBC Lab Results Component Value Date WBC 7.8 10/17/2024 HGB 8.0 (L) 10/17/2024 HCT 25.6 (L) 10/17/2024 MCV 76 (L) 10/17/2024 PLT 81 (L) 10/17/2024 -Continue to monitor Hgb -PRBC transfusion PRN per surgery - Kelley 10/16 4. Electrolyte Lab Results Component Value Date GLUCOSE 116 (H) 10/17/2024 CALCIUM 6.8 (L) 10/17/2024 NA 134 (L) 10/17/2024 K 4.1 10/17/2024 CO2 25 10/17/2024 CL 95 (L) 10/17/2024 BUN 59 (H) 10/17/2024 CREATININE 8.20 (H) 10/17/2024 - Reviewed renal profile. 6. Hypertension Blood Pressures 10/17/2024 1151 10/17/2024 1234 10/17/2024 1252 10/17/2024 1425 10/17/2024 1556 BP: 157/91 169/93 162/92 162/89 171/93 -Goal BP < 140/90 mmHg -continue current management 7. Wound/drain/[place] and pain management -Defer it to surgery 8. GI prophylaxis - On PPI 9. DVT Prophylaxis -Defer to primary team 10. ID prophylaxis - CMV, PJP and fungal prophylaxis per Transplant [place] Protocol * Case was presented at [facility] D team round. Attending physician, consulting physician, pediatric social worker, pharmacist, residents and fellow were present at the meeting. For questions, please contact transplant nephrology page x [phone]. Mariaa Dwyer Transplant Lead Nurse [1] Allergies Allergen Reactions Calcium Hives * Christine Negro, SIPHONER-[employer]HAUST EMISSIONS INSPECTOR - 10/17/2024 7:41 AM EDT Images from the original note were not included. Thom Chapin is a 54 y.o. male on day 1 of admission presenting with ESRD (end stage renal disease) ([facility]). Subjective Patient seen and evaluated at the bedside. He is eating small meals. Glucose down to 82 before lunch. Patient reports that he ate less than he thought he would. Discussed with patient and nursing that meal dose should be held if he eats less than 50% of the meal. Reviewed insulin plan for the day. I have reviewed histories, allergies and medications have been reviewed and there are no changes Objective Review of Systems Constitutional: Positive for activity change, appetite change and fatigue. Negative for diaphoresisand unexpected weight change. HENT: Negative. Negative for sore throat. Eyes: Negative. Respiratory: Negative for cough, chest tightness and shortness of breath. Cardiovascular: Negative for chest pain. Gastrointestinal: Negative for abdominal pain, diarrhea and nausea. Endocrine: Negative for cold intolerance, heat intolerance, polydipsia, polyphagia and polyuria. Genitourinary: Negative for dysuria and frequency. Musculoskeletal: Negative for gait problem and joint swelling. Neurological: Negative for speech difficulty, numbness and headaches. Psychiatric/Behavioral: Negative for agitation, behavioral problems and confusion. Physical Exam Constitutional: General: He is not in acute distress. Appearance: Normal appearance. HENT: Nose: Nose normal. Mouth/Throat: Mouth: Mucous membranes are moist. Pharynx: Oropharynx is clear. Cardiovascular: Rate and Rhythm: Normal rate and regular rhythm. Pulmonary: Effort: Pulmonary effort is normal. No respiratory distress. Abdominal: General: There is no distension. Palpations: Abdomen is soft. Musculoskeletal: General: Normal range of motion. Skin: General: Skin is warm and dry. Neurological: Mental Status: He is alert and oriented to person, place, and time. Psychiatric: Mood and Affect: Mood normal. Behavior: Behavior normal. Last Recorded Vitals Blood pressure (!) 162/94, pulse 81, temperature 36.4 C (97.5 F), temperature source Temporal, resp. rate 18, weight 68 kg (149 lb 14.6 oz), SpO2 96%. Intake/Output last 3 Shifts: I/O last 3 completed shifts: In: 3387.5 (49.8 mL/kg) [P.O.:870; I.V.:580 (8.5 mL/kg); Blood:437.5; IV Piggyback:1500] Out: 607 (8.9 mL/kg) [Urine:169 (0.1 mL/kg/hr); Drains:438] Weight: 68 kg Relevant Results Results from last 7 days Lab Units 10/17/24 0509 10/16/24204910/16/24 1606 10/16/24 1204 10/16/24 0718 10/16/24 0524 10/16/24 0445 10/15/24202510/15/24201010/15/24 1351 POCT GLUCOSE mg/dL -- 169* 194* 229* 244* -- 220* -- < > -- GLUCOSE mg/dL 116* -- -- -- -- 233* -- 166* -- 122* < > = values in this interval not displayed. Lab Review Lab Results Component Value Date BILITOT 0.8 10/15/2024 CALCIUM 6.8 (L) 10/17/2024 CO2 25 10/17/2024 CL 95 (L) 10/17/2024 CREATININE 8.20 (H) 10/17/2024 GLUCOSE 116 (H) 10/17/2024 ALKPHOS 81 10/15/2024 K 4.1 10/17/2024 PROT 7.3 10/15/2024 NA 134 (L) 10/17/2024 AST 30 10/15/2024 ALT 14 10/15/2024 BUN 59 (H) 10/17/2024 ANIONGAP 18 10/17/2024 MG 2.00 10/17/2024 PHOS 7.8 (H) 10/17/2024 ALBUMIN 3.0 (L) 10/17/2024 AMYLASE 115 (H) 09/09/2024 Lab Results Component Value Date TRIG 43 08/19/2023 CHOL 102 09/09/2024 LDLCALC 39 08/19/2023 HDL 44.9 09/09/2024 Lab Results Component Value Date HGBA1C 6.5 (H) 09/09/2024 HGBA1C 5.8 (H) 07/03/2024 HGBA1C 6.3 (H) 08/19/2023 The ASCVD Risk score (Ashley CARTAGENA, et al., 2019) failed to calculate for the following reasons: Risk score cannot be calculated because patient has a medical history suggesting prior/existing ASCVD Scheduled medications Scheduled Medications[1] Continuous medications Continuous Medications[2] PRN medications PRN Medications[3] Assessment & Plan ESRD (end stage renal disease) (Multi) Type 1 diabetes mellitus Thom Chapin is a 54 y.o. male with a history of ESRD on HD MWF 2/2 T1DM and HTN presenting for DDKT on 10/15/24. Diabetes History Type of diabetes: T1D Year diagnosed or age: age 22 Hospitalizations for DKA or HHS: Patient thinks he was in DKA at time of diagnosis. No further hospitalizations for DKA Complications: nephropathy, retinopathy, PVD Seen by PCP or Endocrinology: PCP - has not seen endocrinology in several years Frequency of glucose checks: via dexcom G7 Glucose review: Frequency of Hypoglycemia: not very often recently - 2% seen on the past 2 weeks of CGM data - but some appear to be false lows. 0% hypoglycemia on the previous two week summary Hypoglycemia unawareness: yes Severe hypoglycemia requiring assistance from others: Yes, several occasions. Last event about 2 years ago Home Medications Basal: basaglar 10 units every morning Prandial: none Correction: none CGM: Dexcom G7 Previous meds: was on an insulin pump - stopped due to difficulty carb counting and entering appropriate information. Patient states this was more than 5 years ago and he feels that he did not get enough education PLAN Steroids: steroid regimen: methylpred 500mg intra-op methylpred 250 mg x1d methylpred 125mg x1d methylpred 60mg x1d pred 20mg ongoing Nutrition: 60 gram carb consistent - continue glargine 10 units in the morning If NPO: continue due to steroid hyperglycemia - patient has type 1 diabetes, do not hold. Dose can be reduced if concerned for hypoglycemia - continue 5 units NPH daily in the morning with steroid If NPO, please give the dose - Start lispro 2 units with meal If NPO, please hold. Please hold if patient eats less than 50% of the meal or if pre meal glucose is less than 90 mg/dl - continue lispro corrective scale #2 with meals, adjust to q4h if NPO or if persistently hyperglycemic 70-150 = 0u 151-200 = 2u 201-250 = 4u 251-300 = 6u 301-350 = 8u 351-400 = 10u -Accuchecks (not BMP) TIDAC and QHS- kindly ensure QHS Accucheck is drawn; it is often missed - Goal BG 140-180 -Hypoglycemia protocol -Will continue to follow and titrate insulin accordingly Discharge planning: [] patient may expect to discharge home on glargine and lispro, final doses TBD by titration [x]Continue use of Dexcom at discharge []will enroll pt in pharmacy [facility] plan program []follow up with Simone Westbrook PA-C in PTDM clinic I spent 50 minutes in the professional and overall care of this patient. Christine Negro APRN-[employer]HAUST EMISSIONS INSPECTOR [1] acetaminophen, 650 mg, oral, q6h AMBER acetaminophen, 650 mg, oral, Once [Held by provider] aspirin, 81 mg, oral, Daily clotrimazole, 10 mg, Mouth/Throat, TID after meals darbepoetin yuri, 100 mcg, subcutaneous, Weekly diphenhydrAMINE, 25 mg, oral, Once docusate sodium, 100 mg, oral, BID furosemide, 80 mg, intravenous, q8h AMBER insulin glargine, 10 Units, subcutaneous, Daily insulin lispro, 0-10 Units, subcutaneous, TID AC insulin NPH (Isophane), 5 Units, subcutaneous, Daily methylPREDNISolone sodium succinate (PF), 125 mg, intravenous, Once [START ON 10/18/2024] methylPREDNISolone sodium succinate (PF), 60 mg, intravenous, Once mycophenolate, 1,000 mg, oral, q12h pantoprazole, 40 mg, oral, BID AC polyethylene glycol, 17 g, oral, BID [START ON 10/19/2024] predniSONE, 20 mg, oral, Daily sulfamethoxazole-trimethoprim, 1 tablet, oral, Daily tacrolimus, 2 mg, oral, q12h valGANciclovir, 450 mg, oral, q48h [2] [3] PRN medications: acetaminophen, dextrose, dextrose, glucagon, glucagon, HYDROmorphone, naloxone, ondansetron ODT OR ondansetron, oxyCODONE, oxyCODONE, oxygen * Eli Quezada MD - 10/16/2024 7:43 PM EDT Thom Chapin is a 54 y.o. male now POD # 2 s/p DDKT transplant. Subjective Low UOP No BM +OOB Objective Physical Exam Gen: A+OX3; NAD Abd: S/NT/ND. Incision C/D/I. Drains: Serosanguinous Ext: no LE edema Last Recorded Vitals Blood pressure (!) 192/95, pulse 83, temperature 36.7 C (98.1 F), temperature source Temporal, resp. rate 18, weight 68 kg (149 lb 14.6 oz), SpO2 99%. Intake/Output last 3 Shifts: I/O last 3 completed shifts: In: 3025.9 (44.5 mL/kg) [P.O.:1770; I.V.:340 (5 mL/kg); Blood:394.9; IV Piggyback:521] Out: 345 (5.1 mL/kg) [Urine:280 (0.1 mL/kg/hr); Drains:65] Weight: 68 kg Lab Results Component Value Date CREATININE 8.20 (H) 10/17/2024 K 4.1 10/17/2024 GLUCOSE 116 (H) 10/17/2024 HGB 8.0 (L) 10/17/2024 WBC 7.8 10/17/2024 PLT 81 (L) 10/17/2024 CALCIUM 6.8 (L) 10/17/2024 Current Medications[1] Assessment/Plan 54 y/o M w/ ESRD 2/2 HTN. Hx RCA 50% stenosis and prior LAD stent. S/p DDKT 10/15/24 KDPI 40%. Significant douglas iliac vessel calcifications No HD yet but low UOP - reassess for HD tomorrow Continue RICARDO Lasix 80 IV TID ASA 81 mg Immunosuppression PRA 22% Thymo goal 4.5 mg/kg - last dose today Tac MMF 1000 BID Steroid taper 3. ID Prophylaxis Bactrim Valcyte Clotrimazole 4. Anemia Aranesp 10/16 Monitor Donor Kidney Info: Etiology: Risk: no KDPI: 40 % PRA: 22 % CMV: D+/R+ EBV: D+/R+ Toxo: Donor Negative HCV Ab/MEGHAN: Negative HBcAB: Negative HBsAg/HBV MEGHAN: Negative I spent 35 minutes in the professional and overall care of this patient. Case was presented at [facility] D team round. Attending physician, consulting physician, pediatric social worker,pharmacist, residents and fellow were present at the meeting. Eli Quezada MD [1] Current Facility-Administered Medications: acetaminophen (Tylenol) tablet 650 mg, 650 mg, oral, q6h PRN, Omar Noriega MD acetaminophen (Tylenol) tablet 650 mg, 650 mg, oral, Once, Pauline Foreign [place], SIPH[employer]ER[employer] EMISSIONS INSPECTOR anti-thymocyte globulin rabbit (Thymoglobulin) 100 mg, hydrocortisone sodium succinate (PF) (Solu-CORTEF) 20 mg, heparin 1,000 Units in sodium chloride 0.9% 500 mL IV, 1.5 mg/kg, intravenous, Once, Paulinefabrice [place]man, SIPHONER-EXHAUST EMISSIONS INSPECTOR, 100 mg at 10/17/24 1548 aspirin EC tablet 81 mg, 81 mg, oral, Daily, Tan Isbell MD clotrimazole (Mycelex) amanda 10 mg, 10 mg, Mouth/Throat, TID after meals, Omar Noriega MD, 10 mg at 10/17/24 184 darbepoetin yuri (Aranesp) injection 100 mcg, 100 mcg, subcutaneous, Weekly, Luis Bunch MD, 100 mcg at 10/16/24 1247 dextrose 50 % injection 12.5 g, 12.5 g, intravenous, q15 min PRN, Omar Noriega MD dextrose 50 % injection 25 g, 25 g, intravenous, q15 min PRN, Omar Noriega MD docusate sodium (Colace) capsule 100 mg, 100 mg, oral, BID, Omar Noriega MD, 100 mg at 10/17/24 1019 furosemide (Lasix) injection 80 mg, 80 mg, intravenous, q8h AMBER, Omar Noriega MD, 80 mg at 10/17/24 184 glucagon (Glucagen) injection 1 mg, 1 mg, intramuscular, q15 min PRN, Omar Noriega MD glucagon (Glucagen) injection 1 mg, 1 mg, intramuscular, q15 min PRN, Omar Noriega MD HYDROmorphone PF (Dilaudid) injection 0.2 mg, 0.2 mg, intravenous, q3h PRN, Omar Noriega MD insulin glargine (Lantus) injection 10 Units, 10 Units, subcutaneous, Daily, SIN Marti, 10 Units at 10/17/24 1020 insulin lispro injection 0-10 Units, 0-10 Units, subcutaneous, TID AC, Omar Noriega MD, 2 Units at10/17/241846 insulin lispro injection 2 Units, 2 Units, subcutaneous, TID AC, SIN Marti, 2 Units at10/17/24 191 insulin NPH (Isophane) (HumuLIN N,NovoLIN N) injection 5 Units, 5 Units, subcutaneous, Daily, SIN Pate, 5 Units at 10/17/24 1022 [START ON 10/18/2024] methylPREDNISolone sod succinate (SOLU-Medrol) injection 60 mg, 60 mg, intravenous, Once, Omar Noriega MD mycophenolate (Cellcept) capsule 1,000 mg, 1,000 mg, oral, q12h, Omar Noriega MD, 1,000 mg at 10/17/24 184 naloxone (Narcan) injection 0.2 mg, 0.2 mg, intravenous, q5 min PRN, Omar Noriega MD ondansetron ODT (Zofran-ODT) disintegrating tablet 4 mg, 4 mg, oral, q8h PRN OR ondansetron (Zofran) injection 4 mg, 4 mg, intravenous, q8h PRN, Omar Noriega MD, 4 mg at 10/16/24 0452 oxyCODONE (Roxicodone) immediate release tablet 10 mg, 10 mg, oral, q4h PRN, Omar Noriega MD, 10 mg at 10/17/24 1023 oxyCODONE (Roxicodone) immediate release tablet 5 mg, 5 mg, oral, q4h PRN, Omar Noriega MD oxygen (O2) therapy, , inhalation, Continuous PRN - O2/gases, Omar Noriega MD pantoprazole (ProtoNix) EC tablet 40 mg, 40 mg, oral, BID AC, Omar Noriega MD, 40 mg at 10/17/24 154 polyethylene glycol (Glycolax, Miralax) packet 17 g, 17 g, oral, BID, Pauline L Zain, SIPHONER-EXHAUST EMISSIONS INSPECTOR [START ON 10/19/2024] predniSONE (Deltasone) tablet 20 mg, 20 mg, oral, Daily, Omar Noriega MD sevelamer carbonate (Renvela) tablet 800 mg, 800 mg, oral, TID, Pauline L [place], SIPHONER-EXHAUST EMISSIONS INSPECTOR, 800 mg at 10/17/24 184 sulfamethoxazole-trimethoprim (Bactrim) 400-80 mg per tablet 1 tablet, 1 tablet, oral, Daily, EricaL Zain, SIPHONER-EXHAUST EMISSIONS INSPECTOR, 1 tablet at 10/17/24 102 tacrolimus (Prograf) capsule 3 mg, 3 mg, oral, q12h, Radha Pearce MD, 3 mg at 10/17/24 184 valGANciclovir (Valcyte) tablet 450 mg, 450 mg, oral, q48h, Luis Bunch MD, 450 mg at 10/16/24 1247 * Mariaa Dwyer MD - 10/16/2024 6:27 PM EDT Images from the original note were not included. INPATIENT TRANSPLANT NEPHROLOGY PROGRESS NOTE REASON FOR CONSULT: Immunosuppressive medication management and nephrology related issues. SUBJECTIVE: 54 Y.O. Male with ESKD 2/2 DM and HTN, had been on HD MWF. 12/2023 LHC RCA 50%, mild in-stent LAD stenosis s/p DDKT 10/15/24, PRA 22%. KDPI 40%. CMV +/+. 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 1u prbcs given intraoperatively. Induction with thymo 4.5 mg/kg (completed today). Now POD 1; plan to maintain on Tac, MMF and steroid taper. Bactrim SS/Valcyte/Clotrimazole for ID prophy. SLOW graft function. No HD post op yet. No indication for HD today No acute events overnight. PHYCISCAL EXAMINATION: Vitals: 10/17/24 1556 BP: (!) 171/93 Pulse: 83 Resp: 18 Temp: 36.8 C (98.2 F) SpO2: 99% 10/15 1900 - 10/17 0659 In: 3387.5 [P.O.:870; I.V.:580] Out: 607 [Urine:169; Drains:438] Weight change: 1.741 kg (3 lb 13.4 oz) General Appearance - NAD, Good speech, oriented and alert HEENT - Supple. Not pale. No jaundice. No cervical lymphadenopathy. Pharynx and tonsils are not injected. CVS - RRR. Normal S1/S2. No murmur, click , rub or gallop Lungs- clear to auscultation bilaterally Abdomen - soft , not tender, no guarding, no rigidity. No hepatosplenomegaly. Normal bowel sounds. No masses and ascites. S/P Kidney transplant. No wound infection. Musculoskeletal /Extremities - no edema. Full ROM. No joint tenderness. Neuro/Psych - appropriate mood and affect. Motor power V/V all extremities. CN I -XII were grossly intact. Skin - No visible rash MEDICATION LIST: REVIEWED acetaminophen, 650 mg, Once antithymocyte globulin (rabbit), 1.5 mg/kg, Once [Held by provider] aspirin, 81 mg, Daily calcium carbonate, 500 mg, BID clotrimazole, 10 mg, TID after meals darbepoetin yuri, 100 mcg, Weekly docusate sodium, 100 mg, BID furosemide, 80 mg, q8h AMBER insulin glargine, 10 Units, Daily insulin lispro, 0-10 Units, TID AC insulin lispro, 2 Units, TID AC insulin NPH (Isophane), 5 Units, Daily [START ON 10/18/2024] methylPREDNISolone sodium succinate (PF), 60 mg, Once mycophenolate, 1,000 mg, q12h pantoprazole, 40 mg, BID AC polyethylene glycol, 17 g, BID [START ON 10/19/2024] predniSONE, 20 mg, Daily sevelamer carbonate, 800 mg, TID sulfamethoxazole-trimethoprim, 1 tablet, Daily tacrolimus, 3 mg, q12h valGANciclovir, 450 mg, q48h acetaminophen, 650 mg, q6h PRN dextrose, 12.5 g, q15 min PRN dextrose, 25 g, q15 min PRN glucagon, 1 mg, q15 min PRN glucagon, 1 mg, q15 min PRN HYDROmorphone, 0.2 mg, q3h PRN naloxone, 0.2 mg, q5 min PRN ondansetron ODT, 4 mg, q8h PRN Or ondansetron, 4 mg, q8h PRN oxyCODONE, 10 mg, q4h PRN oxyCODONE, 5 mg, q4h PRN oxygen, , Continuous PRN - O2/gases ALLERGY: Allergies[1] LABS: Results for orders placed or performed during the hospital encounter of 10/15/24 (from the past 24 hours) POCT GLUCOSE Result Value Ref Range POCT Glucose 169 (H) 74 - 99 mg/dL Magnesium Result Value Ref Range Magnesium 2.00 1.60 - 2.40 mg/dL Renal Function Panel Result Value Ref Range Glucose 116 (H) 74 - 99 mg/dL Sodium 134 (L) 136 - 145 mmol/L Potassium 4.1 3.5 - 5.3 mmol/L Chloride 95 (L) 98 - 107 mmol/L Bicarbonate 25 21 - 32 mmol/L Anion Gap 18 10 - 20 mmol/L Urea Nitrogen 59 (H) 6 - 23 mg/dL Creatinine 8.20 (H) 0.50 - 1.30 mg/dL eGFR 7 (L) >60 mL/min/1.73m*2 Calcium 6.8 (L) 8.6 - 10.6 mg/dL Phosphorus 7.8 (H) 2.5 - 4.9 mg/dL Albumin 3.0 (L) 3.4 - 5.0 g/dL CBC and Auto Differential Result Value Ref Range WBC 6.5 4.4 - 11.3 x10*3/uL nRBC 0.0 0.0 - 0.0 /100 WBCs RBC 2.86 (L) 4.50 - 5.90 x10*6/uL Hemoglobin 7.0 (L) 13.5 - 17.5 g/dL Hematocrit 21.5 (L) 41.0 - 52.0 % MCV 75 (L) 80 - 100 fL MCH 24.5 (L) 26.0 - 34.0 pg MCHC 32.6 32.0 - 36.0 g/dL RDW 17.1 (H) 11.5 - 14.5 % Platelets 84 (L) 150 - 450 x10*3/uL Neutrophils % 94.6 40.0 - 80.0 % Immature Granulocytes %, Automated 0.5 0.0 - 0.9 % Lymphocytes % 0.9 13.0 - 44.0 % Monocytes % 3.8 2.0 - 10.0 % Eosinophils % 0.0 0.0 - 6.0 % Basophils % 0.2 0.0 - 2.0 % Neutrophils Absolute 6.18 1.20 - 7.70 x10*3/uL Immature Granulocytes Absolute, Automated 0.03 0.00 - 0.70 x10*3/uL Lymphocytes Absolute 0.06 (L) 1.20 - 4.80 x10*3/uL Monocytes Absolute 0.25 0.10 - 1.00 x10*3/uL Eosinophils Absolute 0.00 0.00 - 0.70 x10*3/uL Basophils Absolute 0.01 0.00 - 0.10 x10*3/uL Tacrolimus Result Value Ref Range Tacrolimus 3.4 <=15.0 ng/mL POCT GLUCOSE Result Value Ref Range POCT Glucose 82 74 - 99 mg/dL CBC Result Value Ref Range WBC 7.8 4.4 - 11.3 x10*3/uL nRBC 0.0 0.0 - 0.0 /100 WBCs RBC 3.37 (L) 4.50 - 5.90 x10*6/uL Hemoglobin 8.0 (L) 13.5 - 17.5 g/dL Hematocrit 25.6 (L) 41.0 - 52.0 % MCV 76 (L) 80 - 100 fL MCH 23.7 (L) 26.0 - 34.0 pg MCHC 31.3 (L) 32.0 - 36.0 g/dL RDW 17.4 (H) 11.5 - 14.5 % Platelets 81 (L) 150 - 450 x10*3/uL POCT GLUCOSE Result Value Ref Range POCT Glucose 161 (H) 74 - 99 mg/dL IMAGING RESULT: Reviewed with surgery. ASSESSMENT AND PLAN: Mr. Chapin is a 54 y.o. male who underwent kidney transplant surgery on 10/15/2024 (Kidney). Transplant nephrology is consulted to assist with immunosuppressive medication management, and nephrology related issues. Principal Problem: ESRD (end stage renal disease) (Multi) Active Problems: Type 1 diabetes mellitus 1. ESRD S/P Kidney transplant. - Renal allograft function: Lab Results Component Value Date CREATININE 8.20 (H) 10/17/2024 Estimated Creatinine Clearance: 9.7 mL/min (A) (by C-G formula based on SCr of 8.2 mg/dL (H)). Intake/Output Summary (Last 24 hours) at 10/17/2024 1827 Last data filed at 10/17/2024 1548 Gross per 24 hour Intake 202.92 ml Output 260 ml Net 1765.92 ml - Indication for dialysis: None today Lasix 80 mg IV Q 8 hours - Continue to monitor UOP and Serum creatinine closely. - Avoid nephrotoxic agents, NSAIDs and IV contrast - Strict I/O. - Renally dose all medications by the most recent CrCl from Cockcroft-Gault formula. 2. Immunosuppression - Induction with thymo 4.5 mg/kg (completed today). On Tac, MMF and steroid taper. 3. Anemia and WBC Lab Results Component Value Date WBC 7.8 10/17/2024 HGB 8.0 (L) 10/17/2024 HCT 25.6 (L) 10/17/2024 MCV 76 (L) 10/17/2024 PLT 81 (L) 10/17/2024 -Continue to monitor Hgb -PRBC transfusion PRN per surgery - Aranesp 10/16 today 4. Electrolyte Lab Results Component Value Date GLUCOSE 116 (H) 10/17/2024 CALCIUM 6.8 (L) 10/17/2024 NA 134 (L) 10/17/2024 K 4.1 10/17/2024 CO2 25 10/17/2024 CL 95 (L) 10/17/2024 BUN 59 (H) 10/17/2024 CREATININE 8.20 (H) 10/17/2024 - Reviewed renal profile. 6. Hypertension Blood Pressures 10/17/2024 1151 10/17/2024 1234 10/17/2024 1252 10/17/2024 1425 10/17/2024 1556 BP: 157/91 169/93 162/92 162/89 171/93 -Goal BP < 140/90 mmHg -continue current management 7. Wound/drain/camarillo and pain management -Defer it to surgery 8. GI prophylaxis - On PPI 9. DVT Prophylaxis -Defer to primary team 10. ID prophylaxis - CMV, PJP and fungal prophylaxis per [facility] Protocol * Case was presented at Multi D team round. Attending physician, consulting physician, pediatric social worker, pharmacist, residents and fellow were present at the meeting. For questions, please contact transplant nephrology page x [phone]. Mariaa Dwyer Transplant Lead Nurse [1] Allergies Allergen Reactions Calcium Hives * Diane Yarbrough RN - 10/16/2024 1:55 PM EDT 10/16/24 1352 Discharge Planning Living Arrangements Alone Support Systems Family members;Children Assistance Needed Prior to admission no assistance needed with ADLs, iADLs. Type of Residence Private residence Number of Stairs to Enter Residence 0 Number of Stairs Within Residence 0 Who is requesting discharge planning? Provider Home or Post Acute Services (Anticipate home no needs.) Expected Discharge Disposition Home Does the patient need discharge transport arranged? No (Patients sister to provide transport home.) Financial Resource Strain How hard is it for you to pay for the very basics like food, housing, medical care, and heating? Not hard Housing Stability In the last 12 months, was there a time when you were not able to pay the mortgage or rent on time?N In the past 12 months, how many times have you moved where you were living? 0 At any time in the past 12 months, were you homeless or living in a longterm (including now)? N Transportation Needs In the past 12 months, has lack of transportation kept you from medical appointments or from getting medications? no In the past 12 months, has lack of transportation kept you from meetings, work, or from getting things needed for daily living? No Met with pt and introduced myself as Bone Cooking Operator with Care Transitions Team for Discharge Planning. Pt stated he feels safe at home. Pts sister drives to [place]. Per patient he utilizes [facility] transport services to hemodialysis. Pt's address, phone number and contact information was verified. Pt denies any social or financial concerns at this time. Diabetic: pt has all supplies needed to manage diabetes. Hemodialysis: MWF HD at [facility], per patient most recent HD session at [facility] was yesterday 10/15 Home Healthcare: None active. DME: none PCP: Ron Coronado, saw x1 month ago. Diane Yarbrough RN, BSN Transitional Bone Cooking Operator Office: [phone] Secure chat via [employer] documented in this [facility] Work Phone: [phone]) 120-459605-15-2025 Nurse Note* Pauline Houston RN - 10/21/2024 2:55 PM EDT Consulting Group Analyst Note Inpatient Discharge Education Provided to patient today. The following topics were reviewed: signs and symptoms of rejection signs and symptoms of infection transplant medication indications transplant medication administration transplant medication side effects the importance of following post-transplant lab and appointment schedules Patient verbalized good understanding of all information provided Coordinator filled pillbox for patient Patient successfully completed discharge education test Provided to patient all [facility] contact information for both during and after hours Outpatient Plan DGF on HD MWF at 0730 Rec'd dialysis Thurs 10/21 so will go Sat 10/23 then resume MWF schedule Labs at HD No RICARDO Tac 06/09, MMF 1000/1000, pred 20 Had h/o urinary retention requiring camarillo replacement. Resolved on flomax. Patient uses [facility] pill packs for medications - patient's family did not bring pills prior to discharge so will need added at home Will need pill box check at first TI appt and assessment for ongoing needs Primary supports are his daughter and niece * Rosibel Medina RN - 10/21/2024 12:47 PM EDT Report to Receiving RN: Report To: NO Dow Time Report Called: [id number] Hand-Off Communication: pt stable, completed and tolerated HD tx with no issues, post vitals: 163/90, pulse 86, pt removed 0.3 liters Complications During Treatment: No Ultrafiltration Treatment: Yes Medications Administered During Dialysis: No Blood Products Administered During Dialysis: No Labs Sent During Dialysis: No Heparin Drip Rate Changes: No Dialysis Catheter Dressing: N/A Last Dressing Change: N/A, AVF Last Updated: 12:47 PM by ROSIBEL MEDINA * Teresa Bruno RN - 10/21/2024 8:43 AM EDT .Report from Sending RN: Report From: NO Dow Recent Surgery of Procedure: Yes, KIDNEY TRANSPLANT 10/15/24 Baseline Level of Consciousness (LOC): A&O X 3 Oxygen Use: No Type: Room air Diabetic: Yes, BS 81 mg/dl Last BP Med Given Day of Dialysis: Hydralazine, coreg Last Pain Med Given: none Lab Tests to be Obtained with Dialysis: No Blood Transfusion to be Given During Dialysis: No Available IV Access: Yes Medications to be Administered During Dialysis: No Continuous IV Infusion Running: no Restraints on Currently or in the Last 24 Hours: No Hand-Off Communication: Pt had no acute event this morning, SBP in 170's all BP medication given. Not on precaution travel by cart. Dialysis Catheter Dressing: AVF Last Dressing Change: N/A * Patience Garza RN - 10/18/2024 8:31 PM EDT Report to Receiving RN: Report To: NO Delacruz Time Report Called: Hand-Off Communication: Pt completed 3 hrs HD, 2L fluid removed, tolerated tx, BP 154/90, HR 83, ptstable, alert, urine output during HD 100 ml, blood tinged. Complications During Treatment: No Ultrafiltration Treatment: Yes Medications Administered During Dialysis: Yes, transplant meds given, see MAR Blood Products Administered During Dialysis: No Labs Sent During Dialysis: No Heparin Drip Rate Changes: No Dialysis Catheter Dressing: N/A, AVF Last Dressing Change: N/A Last Updated: 8:32 PM by PATIENCE GARZA * Анна Stephens RN - 10/18/2024 4:35 PM EDT Report from Sending RN: Report From: NO Ge Recent Surgery of Procedure: No Baseline Level of Consciousness (LOC): A/O X 4 Oxygen Use: No SpO2 98% RA Type: N/A Diabetic: Yes BS at 15:30: 136 Last BP Med Given Day of Dialysis: yes see EMAR Last Pain Med Given: none Lab Tests to be Obtained with Dialysis: No Blood Transfusion to be Given During Dialysis: No Available IV Access: Yes Medications to be Administered During Dialysis: Yes, anti rejection medication, see EMAR Continuous IV Infusion Running: No Restraints on Currently or in the Last 24 Hours: No Hand-Off Communication: full code, no isolation, pt can stand safely on a scale for a weight travelby regular cart Dialysis Catheter Dressing: N/A fistula Last Dressing Change: N/A Vitals at 16:25: BP 165/86 HR 76 RR 18 temp 36.3 documented in this [facility] Work Phone: [phone]) 296-374805-15-2025 Hospital course Narrative* Paloma Massey, SIPHONER-EXHAUST EMISSIONS INSPECTOR - 10/21/2024 1:35 PM EDT Discharge Diagnosis ESRD (end stage renal disease) (Multi) Issues Requiring Follow-Up Immunosuppression- tac 06/09, mmf 1gm BID, pred 20 HTN Test Results Pending At Discharge Pending Labs No current pending labs. Hospital Course Pt is a 54 y/o male with a hx of ESRD secondary to type 1 diabetes whom received a donor kidney transplant on 10/15/[address] Brothers with a KDPI of 40% and PRA of 22%. Donor was Hepc - / - and has not met risk factors. EBV +/+. Right donor kidney transplanted to patient right pelvis. Dry weight is 65 kg (discharge weight is 69.2 kg). Pt received a total of 4.5 mg/kg total of thymoglobulin induction therapy in conjunction with 500mg IV solumedrol. Pt was initiated on Tacrolimus & Cellcept immunosuppression in conjunction with IV solumedrol taper. Pt was started on valcyte (CMV D + / R+ ) and bactrim for CMV & PCP prophylaxis per protocol. He was started on clotrimazole as antifungal coverage per protocol. Operative course was uncomplicated. Hospital course was uncomplicated. Camarillo catheter was removed on POD #3 but the patient had high post void residuals. Camarillo was replaced and flomax was started. Pt did require dialysis, electrolytes remain stable. Dialysis access via left upper extremity AVF and was patent on last use. BP & glucose under good control. Pt is tolerating a diabetic diet, maintaining adequate hydration with oral intake, ambulating independently and having BMs. Immunosuppression was managed by the transplant team. Patient is in stable condition for discharge home with renal telehealth today and home care for camarillo. RX delivered to bedside prior to discharge. The patient will f/u in the transplant institute and have labs drawn in the walk-in clinic. Pertinent Physical Exam At Time of Discharge Physical Exam Constitutional: Appearance: Normal appearance. HENT: Head: Atraumatic. Mouth/Throat: Mouth: Mucous membranes are moist. Eyes: Extraocular Movements: Extraocular movements intact. Cardiovascular: Rate and Rhythm: Normal rate. Pulmonary: Effort: Pulmonary effort is normal. Abdominal: Palpations: Abdomen is soft. Musculoskeletal: General: Normal range of motion. Cervical back: Normal range of motion. Skin: General: Skin is warm and dry. Neurological: General: No focal deficit present. Mental Status: He is alert and oriented to person, place, and time. Psychiatric: Mood and Affect: Mood normal. Behavior: Behavior normal. Home Medications Medication List PAUSE taking these medications sildenafil 50 mg tablet; Wait to take this until your doctor or other care provider tells you to start again.; Commonly known as: Viagra START taking these medications acetaminophen 325 mg tablet; Commonly known as: Tylenol; Take 2 tablets (650 mg) by mouth every 6 hours if needed for mild pain (1 - 3) for up to 10 doses. atorvastatin 40 mg tablet; Commonly known as: Lipitor BD Irais 2nd Gen Pen Needle 32 gauge x 5/32 needle; Generic drug: pen needle, diabetic; Use 1 needle 4 times a day. calcitriol 0.25 mcg capsule; Commonly known as: Rocaltrol; Take 1 capsule (0.25 mcg) by mouth once daily. carvedilol 25 mg tablet; Commonly known as: Coreg; Take 1 tablet (25 mg) by mouth 2 times a day. Hold for HR<60 or SBP<120 ClearLax 17 gram/dose powder; Generic drug: polyethylene glycol; Mix 17 g of powder and drink once daily as needed (constipation). clotrimazole 10 mg amanda; Commonly known as: Mycelex; Use 1 tablet (10 mg) in the mouth or throat 3 times a day after meals. docusate sodium 100 mg capsule; Commonly known as: Colace; Take 1 capsule (100 mg) by mouth 2 times a day as needed for constipation for up to 14 days. dorzolamide-timoloL 22.3-6.8 mg/mL ophthalmic solution; Commonly known as: Cosopt furosemide 40 mg tablet; Commonly known as: Lasix; Take 2 tablets (80 mg) by mouth 2 times daily (morning and late afternoon). insulin aspart 100 unit/mL (3 mL) pen; Commonly known as: NovoLOG Flexpen U-100 Insulin; Inject 2 Units under the skin 3 times a day before meals. Inject 2 units for breakfast, lunch, and dinner. Check blood sugar & follow sliding scale. 0 unit(s) if Blood glucose is between 71-150; 1 unit(s) for 151-200; 2 unit(s) for 201-250; 3 unit(s) for 251-300; 4 unit(s) for 301-350; 5 unit(s) for 351-400 (up to 50 units/day) insulin glargine-yfgn 100 unit/mL (3 mL) pen; Inject 8 Units under the skin once daily in the morning. Take as directed per insulin instructions.; Replaces: Basaglar KwikPen U-100 Insulin 100 unit/mL (3 mL) pen mycophenolate 250 mg capsule; Commonly known as: Cellcept; Take 4 capsules (1,000 mg) by mouth every 12 hours. NIFEdipine ER 30 mg 24 hr tablet; Commonly known as: Adalat CC; Take 1 tablet (30 mg) by mouth once daily in the morning. Take before meals. Do not crush, chew, or split. Do not fill before October 22, 2024.; Start taking on: October 22, 2024 pantoprazole 40 mg EC tablet; Commonly known as: ProtoNix; Take 1 tablet (40 mg) by mouth once daily in the morning. Take before meals. Do not crush, chew, or split. predniSONE 5 mg tablet; Commonly known as: Deltasone; Take 4 tablets (20 mg) by mouth once daily. Do not fill before October 19, 2024. sulfamethoxazole-trimethoprim 400-80 mg tablet; Commonly known as: Bactrim; Take 1 tablet by mouth once daily. Do not fill before October 17, 2024. tacrolimus 1 mg capsule; Commonly known as: Prograf; Take 1 capsule (1 mg) by mouth 2 times a day. tamsulosin 0.4 mg 24 hr capsule; Commonly known as: Flomax; Take 1 capsule (0.4 mg) by mouth once daily. Do not crush, chew, or split. traMADol 50 mg tablet; Commonly known as: Ultram; Take 1 tablet (50 mg) by mouth every 8 hours if needed for severe pain (7 - 10) for up to 5 days. valGANciclovir 450 mg tablet; Commonly known as: Valcyte; Take 1 tablet (450 mg) by mouth every other day. Do not crush or chew. CHANGE how you take these medications sevelamer carbonate 800 mg tablet; Commonly known as: Renvela; Take 1 tablet (800 mg) by mouth 3 times a day. With meals and 1-2 tablets with snacks; What changed: how much to take CONTINUE taking these medications aspirin 81 mg EC tablet cholecalciferol 50 mcg (2,000 units) capsule; Commonly known as: Vitamin D-3 latanoprost 0.005 % ophthalmic solution; Commonly known as: Xalatan multivitamin tablet STOP taking these medications Basaglar KwikPen U-100 Insulin 100 unit/mL (3 mL) pen; Generic drug: insulin glargine; Replaced by: insulin glargine-yfgn 100 unit/mL (3 mL) pen Dialyvite 800-Ultra D 0.8-2,000 mg-unit tablet; Generic drug: FA-vit Wmjxk-P-swad-vitamin D3 hydrALAZINE 100 mg tablet; Commonly known as: Apresoline magnesium oxide 400 mg (241.3 mg elemental) tablet; Commonly known as: Mag-Ox metoprolol tartrate 25 mg tablet; Commonly known as: Lopressor Outpatient Follow-Up Future Appointments Date Time Provider Department [place] 10/23/2024 7:30 AM HD CHAIR 6 [facility] 10/25/2024 7:30 AM HD CHAIR 6 [facility] 10/27/2024 7:30 AM HD CHAIR 6 [facility] 10/27/2024 11:00 AM TXP ABDOMINAL SURGEON [id number] 10/29/2024 7:30 AM HD CHAIR 6 [facility] 11/03/2024 11:00 AM TXP ABDOMINAL SURGEON [id number] 11/04/2024 9:00 AM Keri Pavon RDN, LD [id number] 11/09/2024 2:00 PM Tyshawn Butts MD [facility] 11/10/2024 11:00 AM TXP ABDOMINAL SURGEON [id number] 11/17/2024 11:30 AM TXP ABDOMINAL SURGEON [id number] 11/18/2024 2:00 PM Simone Westbrook PA-C [id number] I spent 40 minutes in the professional care and discharge of this patient. SIN Solano documented in this [facility] Work Phone: [phone] 680-191505-15-2025 Miscellaneous Notes* Care Plan - Paloma Macedo RN - 10/21/2024 9:55 AM EDT Problem: Fall/Injury Goal: Not fall by end of shift Outcome: Progressing Goal: Be free from injury by end of the shift Outcome: Progressing Goal: Verbalize understanding of personal risk factors for fall in the hospital Outcome: Progressing Goal: Verbalize understanding of risk factor reduction measures to prevent injury from fall in the home Outcome: Progressing Goal: Use assistive devices by end of the shift Outcome: Progressing Goal: Pace activities to prevent fatigue by end of the shift Outcome: Progressing The patient's goals for the shift include going home The clinical goals for the shift include patient will remain safe and free from falls * Care Plan - Artem Pimentel RN - 10/20/2024 10:39 PM EDT The patient's goals for the shift include Comfort The clinical goals for the shift include Pt will remian pain free Problem: Fall/Injury Goal: Not fall by end of shift Outcome: Progressing Goal: Be free from injury by end of the shift Outcome: Progressing Goal: Verbalize understanding of personal risk factors for fall in the hospital Outcome: Progressing Goal: Verbalize understanding of risk factor reduction measures to prevent injury from fall in the home Outcome: Progressing Goal: Use assistive devices by end of the shift Outcome: Progressing Goal: Pace activities to prevent fatigue by end of the shift Outcome: Progressing * Care Plan - Paloma Macedo RN - 10/20/2024 2:40 PM EDT Problem: Fall/Injury Goal: Not fall by end of shift Outcome: Progressing Goal: Be free from injury by end of the shift Outcome: Progressing Goal: Verbalize understanding of personal risk factors for fall in the hospital Outcome: Progressing Goal: Verbalize understanding of risk factor reduction measures to prevent injury from fall in the home Outcome: Progressing Goal: Use assistive devices by end of the shift Outcome: Progressing Goal: Pace activities to prevent fatigue by end of the shift Outcome: Progressing The patient's goals for the shift include safety The clinical goals for the shift include Patient will remain safe * Care Plan - Simone Westbrook PA-C - 10/20/2024 9:59 AM EDT endo will follow peripherally at this time due to patient's minimal insulin requirements and euylgycemia. please feel free to contact us with any questions Please continue to follow insulin plan and discharge plan restated below: PLAN Steroids: steroid regimen: methylpred 500mg intra-op methylpred 250 mg x1d methylpred 125mg x1d methylpred 60mg x1d pred 20mg ongoing Nutrition: 60 gram carb consistent - continue glargine 8 units in the morning If NPO: continue- patient has type 1 diabetes, do not hold. Dose can be reduced to 6u if concerned for hypoglycemia - continue lispro 2 units with meal If NPO, please hold. Please hold if patient eats less than 50% of the meal or if pre meal glucose is less than 90 mg/dl - continue lispro corrective scale #1 with meals, adjust to q4h if NPO or if persistently hyperglycemic >250mg/dL 70-150 = 0u 151-200 = 1u 201-250 = 2u 251-300 = 3u 301-350 = 4u 351-400 = 5u -Accuchecks (not BMP) TIDAC and QHS- kindly ensure QHS Accucheck is drawn; it is often missed - Goal BG 140-180 -Hypoglycemia protocol -Will follow peripherally in anticipation of discharge with no further insulin changes Discharge planning: patient may expect to discharge home on glargine and lispro regimen as described above [x]Continue use of Dexcom at discharge [x]will enroll pt in pharmacy tunica-biloxi plan program [x]follow up with Simone Westbrook PA-C in PTDM clinic as scheduled on 11/18/24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 Attestation: I was present and scrubbed for the entire procedure. Geovanna Brothers Cosigned by Geovanna Brothers MD at 10/17/2024 8:11 PM EDT documented in this [facility] Work Phone: [phone] Consult note* Luz Marina Ford RDN, LD - 10/18/2024 11:53 AM EDT Nutrition Diet Education Education Documentation Nutrition Related Education, taught by Luz Marina Ford RDN, LD at 10/18/2024 11:51 AM. Learner: Patient Readiness: Acceptance Method: Handout Response: Verbalizes Understanding Comment: Provided pt with food safety post transplant booklet * SIN Vilchis - 10/16/2024 8:21 AM EDTAssociated Order(s): Inpatient consult to Endocrinology Images from the original note were not included. Inpatient consult to Endocrinology Consult performed by: SIN Vilchis Consult ordered by: Geovanna Brothers MD Reason For Consult T1D, DDKT History Of Present Illness Thom Chapin is a 54 y.o. male with a history of ESRD on HD MWF 2/2 T1DM and HTN presenting for DDKT on 10/15/24. Diabetes History Type of diabetes: T1D Year diagnosed or age: age 22 Hospitalizations for DKA or HHS: Patient thinks he was in DKA at time of diagnosis. No further hospitalizations for DKA Complications: nephropathy, retinopathy, PVD Seen by PCP or Endocrinology: PCP - has not seen endocrinology in several years Frequency of glucose checks: via dexcom G7 Glucose review: Frequency of Hypoglycemia: not very often recently - 2% seen on the past 2 weeks of CGM data - but some appear to be false lows. 0% hypoglycemia on the previous two week summary Hypoglycemia unawareness: yes Severe hypoglycemia requiring assistance from others: Yes, several occasions. Last event about 2 years ago Home Medications Basal: basaglar 10 units every morning Prandial: none Correction: none CGM: Previous meds: was on an insulin pump - stopped due to difficulty carb counting and entering appropriate information (per [facility] endo note from 2 years ago) Humalog in the past, stopped due to hypoglycemia Results from Most Recent A1C Hemoglobin A1C Date/Time Value Ref Range Status 09/09/2024 11:07 AM 6.5 (H) See comment % Final Diabetes Problem List Entries with Dates Problem List: 2023-11: Diabetic renal disease (Multi) 2017-04: Type 2 diabetes mellitus with other diabetic kidney complication 2014-06: Diabetic peripheral neuropathy (Multi) 2009-: Diabetic retinopathy (Multi) 2004-: Type 1 diabetes mellitus Past Medical History He has a past medical history of CKD (chronic kidney disease) stage 4, GFR 15-29 ml/min (Multi). Surgical History He has a past surgical history that includes Toe amputation (Right, 2016) and Cardiac catheterization (N/A, 12/08/2023). Social History He reports that he has quit smoking. His smoking use included cigarettes. He started smoking about 11 years ago. He has never used smokeless tobacco. He reports that he does not currently use alcohol. He reports current drug use. Drug: Marijuana. Family History Family History[1] Several family members with Type 1 diabetes. Discussed screening of first degree relatives through [employer] Allergies Calcium Review of Systems Constitutional: Positive for activity change, appetite change and fatigue. Negative for diaphoresisand unexpected weight change. HENT: Negative. Negative for sore throat. Eyes: Negative. Respiratory: Negative for cough, chest tightness and shortness of breath. Cardiovascular: Negative for chest pain. Gastrointestinal: Negative for abdominal pain, diarrhea and nausea. Endocrine: Negative for cold intolerance, heat intolerance, polydipsia, polyphagia and polyuria. Genitourinary: Negative for dysuria and frequency. Musculoskeletal: Negative for gait problem and joint swelling. Neurological: Negative for speech difficulty, numbness and headaches. Psychiatric/Behavioral: Negative for agitation, behavioral problems and confusion. Physical Exam Constitutional: General: He is not in acute distress. Appearance: Normal appearance. HENT: Nose: Nose normal. Mouth/Throat: Mouth: Mucous membranes are moist. Pharynx: Oropharynx is clear. Cardiovascular: Rate and Rhythm: Normal rate and regular rhythm. Pulmonary: Effort: Pulmonary effort is normal. No respiratory distress. Abdominal: General: There is no distension. Palpations: Abdomen is soft. Musculoskeletal: General: Normal range of motion. Skin: General: Skin is warm and dry. Neurological: Mental Status: He is alert and oriented to person, place, and time. Psychiatric: Mood and Affect: Mood normal. Behavior: Behavior normal. ROS, PMH, FH/SH, surgical history and allergies have been reviewed. Last Recorded Vitals Blood pressure 110/69, pulse 80, temperature 36.4 C (97.5 F), temperature source Temporal, resp. rate 14, weight 65.8 kg (145 lb 1 oz), SpO2 99%. Relevant Results Results from last 7 days Lab Units 10/16/24 0718 10/16/24 0524 10/16/24 0445 10/15/24202510/15/24201010/15/24 1351 POCT GLUCOSE mg/dL 244* -- 220* -- 172* -- GLUCOSE mg/dL -- 233* -- 166* -- 122* Lab Review Lab Results Component Value Date BILITOT 0.8 10/15/2024 CALCIUM 7.6 (L) 10/16/2024 CO2 25 10/16/2024 CL 97 (L) 10/16/2024 CREATININE 7.03 (H) 10/16/2024 GLUCOSE 233 (H) 10/16/2024 ALKPHOS 81 10/15/2024 K 3.6 10/16/2024 PROT 7.3 10/15/2024 NA 138 10/16/2024 AST 30 10/15/2024 ALT 14 10/15/2024 BUN 34 (H) 10/16/2024 ANIONGAP 20 10/16/2024 MG 2.00 10/16/2024 PHOS 5.0 (H) 10/16/2024 ALBUMIN 3.1 (L) 10/16/2024 AMYLASE 115 (H) 09/09/2024 Lab Results Component Value Date TRIG 43 08/19/2023 CHOL 102 09/09/2024 LDLCALC 39 08/19/2023 HDL 44.9 09/09/2024 Lab Results Component Value Date HGBA1C 6.5 (H) 09/09/2024 HGBA1C 5.8 (H) 07/03/2024 HGBA1C 6.3 (H) 08/19/2023 The ASCVD Risk score (Ashley CARTAGENA, et al., 2019) failed to calculate for the following reasons: Risk score cannot be calculated because patient has a medical history suggesting prior/existing ASCVD Assessment/Plan Assessment & Plan ESRD (end stage renal disease) (Multi) Type 1 diabetes mellitus PLAN Steroids: steroid regimen: methylpred 500mg intra-op methylpred 250 mg x1d methylpred 125mg x1d methylpred 60mg x1d pred 20mg ongoing Nutrition: Clear liquid diet - continue glargine 10 units in the morning If NPO: continue due to steroid hyperglycemia - patient has type 1 diabetes, do not hold. Dose can be reduced if concerned for hypoglycemia - continue 5 units NPH daily in the morning with steroid If NPO, please give the dose - continue lispro corrective scale #2 with meals, adjust to q4h if NPO or if persistently hyperglycemic 70-150 = 0u 151-200 = 2u 201-250 = 4u 251-300 = 6u 301-350 = 8u 351-400 = 10u -Accuchecks (not BMP) TIDAC and QHS- kindly ensure QHS Accucheck is drawn; it is often missed - Goal BG 140-180 -Hypoglycemia protocol -Will continue to follow and titrate insulin accordingly Discharge planning: [] patient may expect to discharge home on glargine and lispro, final doses TBD by titration [x]Continue use of Dexcom at discharge []will enroll pt in pharmacy tunica-biloxi plan program []follow up with Simone Westbrook PA-C in PTDM clinic I spent 80 minutes in the professional and overall care of this patient. SIN Vilchis [1] Family History Problem Relation Name Age of Onset Diabetes Mother Diabetes Maternal Grandmother * Mariaa Dwyer MD - 10/15/2024 6:28 PM EDT Images from the original note were not included. INPATIENT INITIAL TRANSPLANT NEPHROLOGY CONSULT SERVICE DATE: 10/17/2024 SERVICE TIME: 6:29 PM REASON FOR CONSULT: Immunosuppressive medication management and nephrology related issues. REQUESTING PHYSICIAN: Eli Quezada MD PRIMARY CARE PHYSICIAN: Ron Coronado MD ADMISSION DIAGNOSIS: 1. ESRD (end stage renal disease) (Multi) 2. Kidney replaced by transplant ([facility]) TRANSPLANT DATE: 10/15/2024 (Kidney) BLOOD TYPE: B HPI: Mr. Chapin is a 54 y.o. male with past medical history significant for ESRD on HD MWF 2/2 T1DM and HTN presenting for DDKT on 10/15/24. Patient reports feeling well this afternoon with no fever, chills, chest pain, cough, dysuria, abdominal pain, or nausea. He received dialysis this AM prior to arriving at hospital. Patient arrives with niece, daughter, and ex-. Patient had been doing well in usual status of health. The donor of her blood type became available. The cross match was negative. Patient was then admitted for a donor renal transplant surgery. Denied hx of active infection. No fever, chills, chest pain, shortness of breath and palpitation. No nausea, vomiting, diarrhea. REVIEW OF SYSTEM: Review of system was done system by system (03/22). Apart from HPI, other symptoms were negative. PAST MEDICAL HISTORY: Medical History[1] PAST SURGICAL HISTORY: Surgical History[2] SOCIAL HISTORY: Social History Socioeconomic History Marital status: Single Spouse name: Not on file Number of children: Not on file Years of education: Not on file Highest education level: Not on file Occupational History Not on file Tobacco Use Smoking status: Former Types: Cigarettes Start date: 2013 Smokeless tobacco: Never Substance and Sexual Activity Alcohol use: Not Currently Drug use: Yes Types: Marijuana Sexual activity: Not on file Other Topics Concern Not on file Social History Narrative Not on file Social Drivers of Health Financial Resource Strain: Low Risk (10/16/2024) Overall Financial Resource Strain (CARDIA) Difficulty of Paying Living Expenses: Not hard at all Food Insecurity: No Food Insecurity (08/19/2023) Hunger Vital Sign Worried About Running Out of Food in the Last Year: Never true Ran Out of Food in the Last Year: Never true Transportation Needs: No Transportation Needs (10/16/2024) PRAPARE - Transportation Lack of Transportation (Medical): No Lack of Transportation (Non-Medical): No Physical Activity: Sufficiently Active (08/12/2023) Received from [facility] Exercise Vital Sign Days of Exercise per Week: 7 days Minutes of Exercise per Session: 60 min Stress: Not on file Social Connections: Not on file Intimate Partner Violence: Not on file Housing Stability: Low Risk (10/16/2024) Housing Stability Vital Sign Unable to Pay for Housing in the Last Year: No Number of Times Moved in the Last Year: 0 Homeless in the Last Year: No FAMILY HISTORY: Family History[3] MEDICATION LIST: acetaminophen, 650 mg, Once antithymocyte globulin (rabbit), 1.5 mg/kg, Once [Held by provider] aspirin, 81 mg, Daily calcium carbonate, 500 mg, BID clotrimazole, 10 mg, TID after meals darbepoetin yuri, 100 mcg, Weekly docusate sodium, 100 mg, BID furosemide, 80 mg, q8h AMBER insulin glargine, 10 Units, Daily insulin lispro, 0-10 Units, TID AC insulin lispro, 2 Units, TID AC insulin NPH (Isophane), 5 Units, Daily [START ON 10/18/2024] methylPREDNISolone sodium succinate (PF), 60 mg, Once mycophenolate, 1,000 mg, q12h pantoprazole, 40 mg, BID AC polyethylene glycol, 17 g, BID [START ON 10/19/2024] predniSONE, 20 mg, Daily sevelamer carbonate, 800 mg, TID sulfamethoxazole-trimethoprim, 1 tablet, Daily tacrolimus, 3 mg, q12h valGANciclovir, 450 mg, q48h acetaminophen, 650 mg, q6h PRN dextrose, 12.5 g, q15 min PRN dextrose, 25 g, q15 min PRN glucagon, 1 mg, q15 min PRN glucagon, 1 mg, q15 min PRN HYDROmorphone, 0.2 mg, q3h PRN naloxone, 0.2 mg, q5 min PRN ondansetron ODT, 4 mg, q8h PRN Or ondansetron, 4 mg, q8h PRN oxyCODONE, 10 mg, q4h PRN oxyCODONE, 5 mg, q4h PRN oxygen, , Continuous PRN - O2/gases ALLERGY: Allergies[4] PHYCISCAL EXAMINATION: Visit Vitals BP (!) 171/93 (BP Location: Right arm, Patient Position: Lying) Pulse 83 Temp 36.8 C (98.2 F) (Temporal) Resp 18 Wt 68 kg (149 lb 14.6 oz) SpO2 99% BMI 18.74 kg/m Smoking Status Former BSA 1.9 m 10/15 1899 - 10/17 0659 In: 3387.5 [P.O.:870; I.V.:580] Out: 607 [Urine:169; Drains:438] General Appearance - NAD, Good speech, oriented and alert HEENT - Supple. Not pale. No jaundice. No cervical lymphadenopathy. Pharynx and tonsils are not injected. CVS - RRR. Normal S1/S2. No murmur, click , rub or gallop Lungs- clear to auscultation bilaterally Abdomen - soft , not tender, no guarding, no rigidity. No hepatosplenomegaly. Normal bowel sounds. No masses and ascites. Musculoskeletal /Extremities - no edema. Full ROM. No joint tenderness. Neuro/Psych - appropriate mood and affect. Motor power V/V all extremities. CN I -XII were grossly intact. Skin - No visible rash Dialysis access - LUE AVF is clean ,dry and intact LABS: Results for orders placed or performed during the hospital encounter of 10/15/24 (from the past 24 hours) POCT GLUCOSE Result Value Ref Range POCT Glucose 169 (H) 74 - 99 mg/dL Magnesium Result Value Ref Range Magnesium 2.00 1.60 - 2.40 mg/dL Renal Function Panel Result Value Ref Range Glucose 116 (H) 74 - 99 mg/dL Sodium 134 (L) 136 - 145 mmol/L Potassium 4.1 3.5 - 5.3 mmol/L Chloride 95 (L) 98 - 107 mmol/L Bicarbonate 25 21 - 32 mmol/L Anion Gap 18 10 - 20 mmol/L Urea Nitrogen 59 (H) 6 - 23 mg/dL Creatinine 8.20 (H) 0.50 - 1.30 mg/dL eGFR 7 (L) >60 mL/min/1.73m*2 Calcium 6.8 (L) 8.6 - 10.6 mg/dL Phosphorus 7.8 (H) 2.5 - 4.9 mg/dL Albumin 3.0 (L) 3.4 - 5.0 g/dL CBC and Auto Differential Result Value Ref Range WBC 6.5 4.4 - 11.3 x10*3/uL nRBC 0.0 0.0 - 0.0 /100 WBCs RBC 2.86 (L) 4.50 - 5.90 x10*6/uL Hemoglobin 7.0 (L) 13.5 - 17.5 g/dL Hematocrit 21.5 (L) 41.0 - 52.0 % MCV 75 (L) 80 - 100 fL MCH 24.5 (L) 26.0 - 34.0 pg MCHC 32.6 32.0 - 36.0 g/dL RDW 17.1 (H) 11.5 - 14.5 % Platelets 84 (L) 150 - 450 x10*3/uL Neutrophils % 94.6 40.0 - 80.0 % Immature Granulocytes %, Automated 0.5 0.0 - 0.9 % Lymphocytes % 0.9 13.0 - 44.0 % Monocytes % 3.8 2.0 - 10.0 % Eosinophils % 0.0 0.0 - 6.0 % Basophils % 0.2 0.0 - 2.0 % Neutrophils Absolute 6.18 1.20 - 7.70 x10*3/uL Immature Granulocytes Absolute, Automated 0.03 0.00 - 0.70 x10*3/uL Lymphocytes Absolute 0.06 (L) 1.20 - 4.80 x10*3/uL Monocytes Absolute 0.25 0.10 - 1.00 x10*3/uL Eosinophils Absolute 0.00 0.00 - 0.70 x10*3/uL Basophils Absolute 0.01 0.00 - 0.10 x10*3/uL Tacrolimus Result Value Ref Range Tacrolimus 3.4 <=15.0 ng/mL POCT GLUCOSE Result Value Ref Range POCT Glucose 82 74 - 99 mg/dL CBC Result Value Ref Range WBC 7.8 4.4 - 11.3 x10*3/uL nRBC 0.0 0.0 - 0.0 /100 WBCs RBC 3.37 (L) 4.50 - 5.90 x10*6/uL Hemoglobin 8.0 (L) 13.5 - 17.5 g/dL Hematocrit 25.6 (L) 41.0 - 52.0 % MCV 76 (L) 80 - 100 fL MCH 23.7 (L) 26.0 - 34.0 pg MCHC 31.3 (L) 32.0 - 36.0 g/dL RDW 17.4 (H) 11.5 - 14.5 % Platelets 81 (L) 150 - 450 x10*3/uL POCT GLUCOSE Result Value Ref Range POCT Glucose 161 (H) 74 - 99 mg/dL Estimated Creatinine Clearance: 9.7 mL/min (A) (by C-G formula based on SCr of 8.2 mg/dL (H)). ASSESSMENT AND PLAN: Mr. Chapin is a 54 y.o. male who underwent a kidney transplant surgery on 10/15/2024 (Kidney) and washospitalized for kidney transplant surgery. Transplant nephrology is consulted to assist with immunosuppressive medication management, and nephrology related issues. Principal Problem: ESRD (end stage renal disease) (Multi) Active Problems: Type 1 diabetes mellitus 1. ESRD S/P Kidney transplant. - Renal allograft function: Lab Results Component Value Date CREATININE 8.20 (H) 10/17/2024 Serum creatinine: 8.2 mg/dL (H) 10/17/24 0509 Estimated creatinine clearance: 9.7 mL/min (A) Intake/Output Summary (Last 24 hours) at 10/17/2024 1829 Last data filed at 10/17/2024 1548 Gross per 24 hour Intake 2025.92 ml Output 260 ml Net 1765.92 ml - Indication for dialysis: NONE - Continue to monitor UOP and Serum creatinine closely. - Avoid nephrotoxic agents, NSAIDs and IV contrast - Strict I/O. - Renally dose all medications by the most recent CrCl from Cockcroft-Gault formula. 2. Immunosuppression - Thymo induction - Plan Tac/MMF and steroid taper 3. Anemia and WBC -Continue to monitor Hgb -PRBC transfusion as needed per surgery Send Iron studies and ferritin 4. Electrolyte Lab Results Component Value Date GLUCOSE 116 (H) 10/17/2024 CALCIUM 6.8 (L) 10/17/2024 NA 134 (L) 10/17/2024 K 4.1 10/17/2024 CO2 25 10/17/2024 CL 95 (L) 10/17/2024 BUN 59 (H) 10/17/2024 CREATININE 8.20 (H) 10/17/2024 - Reviewed renal profile. 6. Hypertension - BP had been around -Goal BP < 140/90 mmHg -continue current management 7. Wound management -Defer it to surgery 8. GI prophylaxis - On PPI 9. DVT Prophylaxis -Defer to primary team 10. ID prophylaxis - CMV, PJP and fungal prophylaxis per Transplant [place] Protocol * Case was presented at Multi D team round. Attending physician, consulting physician, pediatric social worker, pharmacist, residents and fellow were present at the meeting. For questions, please contact transplant nephrology page x [phone]. 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 Prior NSTEMI/PCI (2019). Currently asymptomatic. Patient available any day of the week. Please call to schedule (via [employer] if needed). TOE AMPUTATION Right 2015 [3] Family History Problem Relation Name Age of Onset Diabetes Mother Diabetes Maternal Grandmother [4] Allergies Allergen Reactions Calcium Hives [facility] Work Phone: [phone]) 585-501605-09-2025 History and physical note* Luis Bunch MD - 10/15/2024 1:22 PM EDT [facility] ABDOMINAL TRANSPLANT SURGERY HISTORY AND PHYSICAL / CONSULT Patient Name: Thom Chapin Admit Date: [id number] : 1970 AGE: 54 y.o. GENDER: male TODAY'S ASSESSMENT AND PLAN OF CARE: PLAN: OR for DDKT with Dr. Brothers on 10/15/24 Preop EKG, CXR, labs pending Thymo induction Patient NPO for procedure Received dialysis this AM through LUE AVF this AM Discussed with attending Dr. Brothers. Luis Bunch MD PGY 2 Abdominal Transplant Surgery Pager [phone] Available via secure chat CHIEF COMPLAINT/REASON FOR CONSULT: Mr. Thom Chapin is a 54 y/o male with ESRD on HD MWF 2/2 T1DM and HTN presenting for DDKT on 10/15/24. Patient reports feeling well this afternoon with no fever, chills, chest pain, cough, dysuria, abdominal pain, or nausea. He received dialysis this AM prior to arriving at hospital. Patient arrives with niece, daughter, and ex-. ROS: Review of Systems Constitutional: Negative for activity change, appetite change, chills, fatigue and fever. Respiratory: Negative for chest tightness and shortness of breath. Cardiovascular: Negative for chest pain and leg swelling. Gastrointestinal: Negative for abdominal distention, abdominal pain, diarrhea, nausea and vomiting. Genitourinary: Negative for difficulty urinating and dysuria. Musculoskeletal: Negative for back pain. Neurological: Negative for dizziness, light-headedness and numbness. Psychiatric/Behavioral: Negative for agitation. Remainder of 12 pointe ROS are negative unless explicitly stated above. PAST MEDICAL HISTORY: PMH: ESRD 2/2 T1DM, CAD/Nstemi s/p PCI stent 2019 Medical History[1] PSH: LUE AVF, right toe amputation Surgical History[2] Family History[3] SOCIAL HISTORY: Smoking: Non-smoker Alcohol: No etoh usage Drug use: previous marijuana - quit one month ago. ALLERGIES: Denies Allergies RX Allergies[4] Prior to Admission medications Medication Sig Start Date End Date Taking? Authorizing Provider aspirin 81 mg EC tablet Take 1 tablet (81 mg) by mouth once daily. Historical Provider, atorvastatin (Lipitor) 40 mg tablet Take 1 tablet (40 mg) by mouth once daily. Patient not taking: Reported on 09/09/2024 Historical Provider, cholecalciferol (Vitamin D-3) 50 mcg (2,000 unit) capsule Take 1 capsule (50 mcg) by mouth early inthe morning.. Historical Provider, Dialyvite 800-Ultra D 0.8-2,000 mg-unit tablet Take 1 tablet by mouth early in the morning.. 07/07/23 Historical Provider, dorzolamide-timoloL (Cosopt) 22.3-6.8 mg/mL ophthalmic solution Instill 1 drop in both eyes twice aday Patient not taking: Reported on 09/09/2024 10/01/23 Historical Provider, hydrALAZINE (Apresoline) 100 mg tablet Take 1 tablet (100 mg) by mouth 3 times a day. Historical Provider, insulin glargine (Basaglar KwikPen U-100 Insulin) 100 unit/mL (3 mL) pen Inject 14 Units under the skin once daily in the morning. Take as directed per insulin instructions. Patient taking differently: Inject 10 Units under the skin once daily in the morning. Take as directed per insulin instructions. Historical Provider, latanoprost (Xalatan) 0.005 % ophthalmic solution Administer 1 drop into affected eye(s). Historical Provider, magnesium oxide (Mag-Ox) 400 mg (241.3 mg magnesium) tablet Take 1 tablet (400 mg) by mouth 2 timesa day. Patient not taking: Reported on 09/09/2024 04/13/18 Historical Provider, metoprolol tartrate (Lopressor) 25 mg tablet Take 1 tablet (25 mg) by mouth 2 times a day. Historical Provider, multivitamin tablet Take 1 tablet by mouth once daily. Historical Provider, sevelamer carbonate (Renvela) 800 mg tablet Take 2 tablets (1,600 mg) by mouth 3 times a day. With meals and 1-2 tablets with snacks Historical Provider, sildenafil (Viagra) 50 mg tablet Take 1 tablet (50 mg) by mouth if needed. 08/18/23 Historical Provider, PHYSICAL EXAM: edit General: well-apprearing, NAD, Aox4, conversive HEENT: Atraumatic, no scleral icterus, iEOM, MMM Cardiovascular: RRR, capillary refill <3sec Pulmonary: breathing comfortably on room air with equal and symmetric chest rise Abdomen: soft, nontender, nondistended, nonperitonitic : Deferred Skin: warm and dry Extremities: Normal extremities, no edema or cyanosis; LUE AVF with palpable thrill Neuro: A/O x4, no focal deficits Psych: normal mood and behavior LABS: Pending No lab exists for component: LABALBU I have reviewed all laboratory and imaging results ordered/pertinent for this encounter. 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 Prior NSTEMI/PCI (2019). Currently asymptomatic. Patient available any day of the week. Please call to schedule (via [employer] if needed). TOE AMPUTATION Right 2016 [3] Family History Problem Relation Name Age of Onset Diabetes Mother Diabetes Maternal Grandmother [4] Allergies Allergen Reactions Calcium Hives Cosigned by Geovanna Brothers MD at 10/17/2024 8:12 PM EDT Associated attestation - Geovanna Brothers MD - 10/17/2024 8:12 PM EDT Good candidate for kidney transplant Has heavily calcified iliac artery but there is landing zone proximal Proceed to OR Thymo for induction VXM negative [facility] Work Phone: 1(448) 395-942904-03-2025 History of Present illness Narrative* Nathan Lizarraga MD - 09/09/2024 10:30 AM EDT Images from the original note were not included. Kidney Transplant Evaluation Office Visit Chief Complaint: Patient presents for kidney transplant listing appointment History of Present Illness: Thom Chapin is a 54 y.o. male presents with ESRD from DM1, hypertension. He started dialysis in 12/2015 and currently on 3 times a week HD via a LUE AVF. He is tolerating HD without issues. He is Oliguirc. Additional past history significant for Right toe amputation, CAD/NSTEMI s/p PCI stent in 2019, depression with history of suicide attempt in 2009. In clinic today, he denies any chest pain, SOB, palpitations, as well as any recent fever, abdominal pain, difficulty voiding or other urinary symptoms, constipation, or poor oral intake. He has completed his evaluation and is interested in transplant. Hemodialysis: 3 times a week Dialysis Access: LUE AVF Urine Status: oliguric. Disease Etiology: diabetic nephropathy Disease Complications: dyslipidemia and CAD PVD: YES on exam, CT import pending Prior Abdominal Surgery: NO Prior Malignancy: NO BMI: Body mass index is 18.51 kg/m . Potential Living Donors: NO Review of Systems: Cardiac: Denies chest pain, palpitations : Oliguric. Denies history of gross hematuria, nephrolithiasis, urinary retention, or recurrent UTIs. Vascular: Denies personal or familial history of DVT/PE. No active claudication or non-healing LE wounds. Extremities: LE Edema - Functional Status: Can walk up 2 flights of stairs Past Medical History: CAD/NSTEMI s/p PCI stent in 2019 Depression with history of suicide attempt in 2009 Past Surgical History: Right toe amputation Social History: Lives an independent life Denies any alcohol, drug or smoking use Marijuana use Transfusions: None : Not applicable Prior transplant: No Family History: Mother: n/a Father: n/a Sibling: n/a Physical Exam: Vitals: 09/09/24 1009 BP: 148/90 Pulse: 74 Temp: 36.5 C (97.7 F) SpO2: 95% Gen: A+OX3; NAD HEENT: PERRL, sclera anicteric, MMM Cardiac: RRR Chest: Normal inspiratory effort Abdomen: S/NT/ND. Ext: No LE edema Vascular: 1+ palpable femoral pulses Psychiatric: Normal mood, affect Echo 10/01 CONCLUSIONS: 1. Left ventricular systolic function is low normal with a 50-55% estimated ejection fraction. 2. Spectral Doppler shows an impaired relaxation pattern of left ventricular diastolic filling. 3. There is moderate asymmetric left ventricular hypertrophy. Stress test 11/29 CONCLUSIONS: 1. SPECT Perfusion Study: Normal. 2. There is no scintigraphic evidence for inducible ischemia. 3. No evidence of scarred myocardium. 4. Left ventricle is normal in size. The left ventricle systolic function is normal. 5. Right ventricle is normal in size. The right ventricle systolic function is normal. 6. This is a low risk scan. CT images personally reviewed. Has vascular targets with significant PVD. Likely L better than R external iliac Assessment/Plan: - The patient is an acceptable candidate for kidney transplantation. Cleared by cardiology. Acceptable targets. Transplant Education: I had a discussion with this patient regarding 1 year graft and patient survival statistics following renal transplantation for both living and donor allograft recipients. [facility] data compared to National data readily available for review on https://[email or web address].org. The patient also had attended the kidney transplant education class provided by the transplant institute. The difference between allograft function was discussed comparing living donor, KDPI 0-85%, and >85% kidneys. Further discussion included: -The transplant selection committee process. -The need for lifelong immunosuppressive therapy, and the side effects of these medications including the risk of infections, cancer, and lymphoma. -The wait list time approximately is 5 years or more for donor transplants and the statistical superiority of a living donor. -Using identified donors with risk criteria for transmission of infection -The possibility of utilizing donors with known HCV antibody and/or MEGHAN positivity and post-transplant treatment/surveillance protocol -Potential transmission of infectious disease from any donors, as well as living donors. -The possibility of transmission of tumors and infections via the transplanted organ. -The inability to completely test for all potential harmful tumors or infectious agents. -The possibility of listing at multiple locations. Surgical complications including need for reoperation(s) including but not limited to: -Bleeding. -Repair of leaks. -Control of infection. -Blood clots in the transplant vessels. -Possible kidney transplant removal. The medical complications including but not limited to: -. -Cardiac. -Pulmonary. -Infectious. -Neurologic. -Other Complications. We also discussed how the kidney transplant could function: -Non-function and possible kidney transplant removal within the first 3 to 6 months. -Delayed graft function (dialysis needed after transplant). -The potential of recurrence of kidney disease leading to kidney transplant graft loss. Time Attestation: I spent 30 minutes with the patient, over 20 minutes in counseling and education as outlined above. Nathan Lizarraga MD [facility] Work Phone: [phone] Telephone encounter Note* Telephone Encounter - Penny Candelario MA - 08/23/2024 5:55 PM EDT Pt notified and voiced understanding. Penny Candelario MA [facility]03-17-2025 Miscellaneous Notes* Telephone Encounter - Penny Candelario MA - 08/23/2024 5:55 PM EDT Pt notified and voiced understanding. Penny Candelario MA * Telephone Encounter - Ron Coronado MD - 08/23/2024 5:38 PM EDT I do not know of any replacement for that; he may check with his kidney doctors and see if they have any recommendations Ron Coronado MD * Telephone Encounter - Argentina Escobar LPN - 08/23/2024 3:18 PM EDT Pt calls to report he received a letter stating his insurance will not cover Magnesium Oxide 400 mg. Pt reports they did not give an alternative. Pt reports he really needs this medication and is asking if there is something else comparable. Pt has [employer]. Argentina Escobar LPN [facility] Telephone encounter Note * Telephone Encounter - Ron Coronado MD - 08/23/2024 5:38 PM EDT I do not know of any replacement for that; he may check with his kidney doctors and see if they have any recommendations Ron Coronado MD [facility]03-17-2025 Telephone encounter Note* Telephone Encounter - Argentina Escobar LPN - 08/23/2024 3:18 PM EDT Pt calls to report he received a letter stating his insurance will not cover Magnesium Oxide 400 mg. Pt reports they did not give an alternative. Pt reports he really needs this medication and is asking if there is something else comparable. Pt has [employer]. Argentina Escobar LPN [facility]03-11-2025 Telephone encounter Note* Telephone Encounter - Montez Toscano APRN.CNP - 08/17/2024 12:09 PM EDT The following approved medication requests have been transmitted electronically. Requested Prescriptions Pending Prescriptions Disp Refills magnesium oxide (MAG-OX) 400 mg (241.3 mg magnesium) tablet 180 tablet 3 Sig: Take 1 tablet by mouth two times a day. Montez Toscano APRN.CNP [facility]03-11-2025 Miscellaneous Notes* Telephone Encounter - Montez Toscano APRN.CNP - 08/17/2024 12:09 PM EDT The following approved medication requests have been transmitted electronically. Requested Prescriptions Pending Prescriptions Disp Refills magnesium oxide (MAG-OX) 400 mg (241.3 mg magnesium) tablet 180 tablet 3 Sig: Take 1 tablet by mouth two times a day. Montez Toscano APRN.CNP * Telephone Encounter - Ophelia Lunsford - 08/17/2024 11:07 AM EDT Prescription Refill Information The patient has been identified by name and date of : Yes Caregiver verified no other encounters exist for this prescription request: Yes Caregiver confirmed with patient/requestor that no other refills are due, in the near future, with this provider at this time: Yes The last office visit in the department: 06-22-24 Does the patient have a future office visit with this provider/department: Yes Requested Prescriptions Pending Prescriptions Disp Refills magnesium oxide (MAG-OX) 400 mg (241.3 mg magnesium) tablet 180 tablet 3 Sig: Take 1 tablet by mouth two times a day. Ophelia Lunsford August 17, 2024 11:07 AM documented in [facility] encounter[facility]03-[facility]-2025 Telephone encounter Note * Telephone Encounter - Ophelia Lunsford - 08/17/2024 11:07 AM EDT Prescription Refill Information The patient has been identified by name and date of : Yes Caregiver verified no other encounters exist for this prescription request: Yes Caregiver confirmed with patient/requestor that no other refills are due, in the near future, with this provider at this time: Yes The last office visit in the department: 06-22-24 Does the patient have a future office visit with this provider/department: Yes Requested Prescriptions Pending Prescriptions Disp Refills magnesium oxide (MAG-OX) 400 mg (241.3 mg magnesium) tablet 180 tablet 3 Sig: Take 1 tablet by mouth two times a day. Ophelia Lunsford August 17, 2024 11:07 AM [facility]03-05-2025 Telephone encounter Note* Telephone Encounter - Montez Toscano APRN.CNP - 08/11/2024 7:37 AM EST The following approved medication requests have been transmitted electronically. Requested Prescriptions Pending Prescriptions Disp Refills magnesium oxide (MAG-OX) 400 mg (241.3 mg magnesium) tablet 180 tablet 3 Sig: Take 1 tablet by mouth two times a day. Montez Toscano APRN.CNP [facility]03-05-2025 Miscellaneous Notes* Telephone Encounter - Montez Toscano APRN.CNP - 08/11/2024 7:37 AM EST The following approved medication requests have been transmitted electronically. Requested Prescriptions Pending Prescriptions Disp Refills magnesium oxide (MAG-OX) 400 mg (241.3 mg magnesium) tablet 180 tablet 3 Sig: Take 1 tablet by mouth two times a day. Montez Toscano APRN.CNP * Telephone Encounter - Mary Bennett - 08/10/2024 3:54 PM EST Prescription Refill Information The patient has been identified by name and date of : Yes Caregiver verified no other encounters exist for this prescription request: Yes Caregiver confirmed with patient/requestor that no other refills are due, in the near future, with this provider at this time: Yes The last office visit in the department: 06/22/24 Does the patient have a future office visit with this provider/department: Yes 12/21/24 Requested Prescriptions Pending Prescriptions Disp Refills magnesium oxide (MAG-OX) 400 mg (241.3 mg magnesium) tablet 180 tablet 3 Sig: Take 1 tablet by mouth two times a day. Mary Bennett August 10, 2024 3:55 PM documented in [facility] encounter[facility]03-04-2025 Telephone encounter Note * Telephone Encounter - Mary Bennett - 08/10/2024 3:54 PM EST Prescription Refill Information The patient has been identified by name and date of : Yes Caregiver verified no other encounters exist for this prescription request: Yes Caregiver confirmed with patient/requestor that no other refills are due, in the near future, with this provider at this time: Yes The last office visit in the department: 06/22/24 Does the patient have a future office visit with this provider/department: Yes 12/21/24 Requested Prescriptions Pending Prescriptions Disp Refills magnesium oxide (MAG-OX) 400 mg (241.3 mg magnesium) tablet 180 tablet 3 Sig: Take 1 tablet by mouth two times a day. Mary Bennett August 10, 2024 3:55 PM [facility]01-28-2025 Telephone encounter Note* Telephone Encounter - Penny Candelario MA - 07/06/2024 10:08 AM EST Pt notified and voiced understanding. Penny Candelario MA [facility]01-28-2025 Miscellaneous Notes* Telephone Encounter - Penny Candelario MA - 07/06/2024 10:08 AM EST Pt notified and voiced understanding. Penny Candelario MA * Telephone Encounter - Ron Coronado MD - 07/06/2024 9:56 AM EST Please notify patient that his lab results look good; his A1c is down to 5.8. I would suggest that he decrease his Basaglar dose to 12 units daily to see if this reduces his low sugars at night. Ron Coronado MD [facility] encounter[facility]01-28-2025 Telephone encounter Note * Telephone Encounter - Ron Coronado MD - 07/06/2024 9:56 AM EST Please notify patient that his lab results look good; his A1c is down to 5.8. I would suggest that he decrease his Basaglar dose to 12 units daily to see if this reduces his low sugars at night. Ron Coronado MD [facility]01-14-2025 History of Present illness Narrative* Ron Coronado MD - 06/22/2024 10:40 AM EST Chief Complaint Patient presents with: 6 Month Exam HPI Thom Chapin is a 53 year old male who presents here today for 6 month follow up. Has 4 grandchildren ranging in ages from 5 to 2. No bowel, Gi, or urinary issues. Uses viagra prn ED. Depression/TEMO: Stable. Anemia: Stable, monitored with labs. CKD: Has dialysis every Friday, Friday and Friday. Follows with Lead Nurse Dr. Wells every 6 months. On current regimen of Renvella 800 mg 2 tab po TID and 1-2 tabs with a snack. He is on the waiting list for kidney transplant, he has completed all the testing and requirements for this, has been waiting about 3 months. Lipid: Taking Lipitor 40 mg daily and ASA 81 mg daily. Tolerating well. Tires to watch diet and exercises about an hour 7 days a week. 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 HTN: Is checking BP at home with readings in AM 130/80 to 120/70. BP drops while at dialysis. Seemsto be higher when he is at dialysis. Taking Lopressor 25 mg 1 pill BID, Mag-Ox 400 mg 1 pill BID, Hydralazine 100 mg 1 pill TID and Losartan 50 mg daily. Denies any chest pains, dizziness, or SOB. Follows with Cardio Dr. Tesfaye. DM: Checking BS 3 x a day with Dexcom CGM, FBS 130-150. Reading at this current time is 150. Tries to eat between 8 pm-9 pm he tries to eat something so he doesn't bottom out. If he doesn't eat before bed he will bottom out around 3 AM. Neuropathy sx in feet, not any worse. Current regimen of Basaglar 14 units daily which was decreased last visit as pt was having hypoglycemic episodes. Following with Dr. Servin, Time Clerk twice a month. Follows with Dr. Roth and Dr. Shafer for eye exams. Past medical history, appointments, medications, allergies reviewed. Previous Medical History PAST MEDICAL HISTORY Diagnosis Date Cellulitis right foot CKD (chronic kidney disease) stage 4, GFR 15-29 ml/min ([facility]) Depression 2009 DIABETES TYPE I W RENAL MANIF-UNCONTRLLD 01/21/2005 Dialysis: [facility] F[facility] Parthayad Diabetic nephropathy ([facility]) 02/22/2010 GLAUCOMA NOS 01/21/2005 Hyperlipidemia HYPERTENSION NOS 01/21/2005 Microcytic anemia NSTEMI (non-ST elevated myocardial infarction) ([facility]) Proteinuria 01/21/2005 PVD (peripheral vascular disease) ([facility]) Suicide attempt ([facility]) November 2009 [facility]> Previous Surgical History PAST SURGICAL HISTORY Procedure Laterality Date AMPUTATION (SPECIFY BODY PART) HX Right 12/2015 5 toes ARTHROSCOPY KNEE DIAGNOSTIC W/WO SYNOVIAL BX SPX 1987 Arthroscopy, knee CC PCI CORONARY INTERVENT 10/19/2018 proximal LAD F COLONOS W/REM POLYP SNARE 03/11/2022 PAST SURGICAL HISTORY OF Right 05/12/2018 Debridement of bone on plantar R foot PAST SURGICAL HISTORY OF Right 2017 Amputation Right Foot VASECTOMY UNI/BI SPX W/POSTOP SEMEN EXAMS 02/14/2007 Family History FAMILY HISTORY Problem Relation Age of Onset Diabetes Mother Ischemic Heart Disease Mother Alcohol/Drug Brother Hypertension Maternal Grandmother Ischemic Heart Disease Sister Patient Allergies ALLERGIES No Known Allergies Current Medications Current Outpatient Medications on File Prior to Visit Medication Sig hydrALAZINE (APRESOLINE) 100 mg tablet Take 1 tablet by mouth three times a day. sevelamer carbonate (RENVELA) 800 mg tablet Take 1 tablet by mouth three times a day with meals. metoprolol tartrate, short acting, (LOPRESSOR) 25 mg tablet Take 1 tablet by mouth two times a day. Insulin Clio, Disposable, (PEN NEEDLE) 32 gauge x 5/32 Give with each insulin administration once in the am and once in the pm atorvastatin (LIPITOR) 40 mg tablet Take 1 tablet by mouth daily at bedtime. For cholesterol. insulin glargine (BASAGLAR KWIKPEN U-100 INSULIN) 100 unit/mL (3 mL) Inject 14 Units subcutaneouslyevery 24 hours. sildenafil (VIAGRA) 50 mg tablet Take 1 tablet by mouth as needed. Take one hour prior to sexual activity magnesium oxide (MAG-OX) 400 mg (241.3 mg magnesium) tablet Take 1 tablet by mouth two times a day. Insulin Clio, Disposable, (PEN NEEDLE) 32 gauge x 5/32 Inject 1 Each subcutaneously every 24 hours. Give with each insulin administration. Insulin Clio, Disposable, (UNIFINE PENTIPS PLUS) 31 gauge x 3/16 USE TWICE DAILY DIRECTED FOR INSULIN Blood-Glucose Sensor (DEXCOM G6 SENSOR) latesha 10 Each as directed. Apply a new Dexcom G 6 Sensor after 10 days of use. COMBIGAN 0.2-0.5 % ophthalmic solution Instill 1 drop in both eyes twice a day timoloL maleate (TIMOPTIC) 0.5 % ophthalmic solution Use 1 Drop in both eyes twice daily. losartan (COZAAR) 50 mg tablet Take 1 tablet by mouth once daily. aspirin 81 mg chewable tablet Take 1 tablet by mouth once daily. latanoprost (XALATAN) 0.005 % ophthalmic solution Use 1 Drop in both eyes daily at bedtime. NOVOFINE AUTOCOVER 30 gauge x 1/3 ndle Insulin Syringe-Needle U-100 (BD LO-DOSE MICRO-FINE IV) 0.3 mL 28 x 1/2 syrg Inject 1 Each subcutaneously daily at bedtime. Inject once daily (for Lantus) Dx: Diabetes Type I with renal manifestations . 254.43 glucagon, human recombinant, (GLUCAGON EMERGENCY) 1 mg injection 1 mg as needed. ADMINISTER FOR LOWBLOOD SUGAR - IF UNCONSCIOUS OR UNABLE TO SWALLOW No current facility-administered medications on file prior to visit. Social History Social History Tobacco Use Smoking status: Never Smokeless tobacco: Never Vaping Use Vaping status: Never Used Substance Use Topics Alcohol use: No Drug use: No EXAM: BP 122/72 Pulse 84 Resp 16 Wt 66.6 kg (146 lb 13.2 oz) BMI 18.85 kg/m General Appearance: Well appearing, alert, in no acute distress, well-hydrated, well nourished.. Lungs: Lungs clear to auscultation. No wheezing, rhonchi, rales.. Heart: RRR without murmur, gallop, or rubs. No ectopy. Health Maintenance List Anxiety Screening Never done BP Controlled (<130/80) Never done Shingrix Vaccine(1 of 2) Never done Hepatitis B Vaccine(5 of 5 - Risk Dialysis Recombivax 3-dose series) due on 08/14/2017 Diabetic Foot Exam due on 07/30/2019 HbA1C due on 02/19/2024 Covid-19 Vaccine( season) due on 06/22/2025 LDL Cholesterol due on 08/18/2024 Serum Creatinine due on 12/07/2024 Hemoglobin/Hematocrit due on 12/07/2024 Colorectal Cancer Screening due on 03/11/2025 Prostate Cancer Screening Discussion due on 05/12/2025 Dilated Retinal Exam due on 05/13/2025 Annual PCP Team Chronic Disease Visit due on 06/22/2025 Pneumococcal Vaccine: 50+(4 of 4 - PCV20 or PCV21) due on 06/01/2026 DTaP,Tdap,Td Vaccine(2 - Td or Tdap) due on 03/06/2033 Influenza Vaccine Completed Hepatitis C Screening Completed HIV Screening Completed Data reviewed None ASSESSMENT/PLAN: 1. Type 1 diabetes mellitus with chronic kidney disease on chronic dialysis ([facility]) - ICD9: 250.41, 585.9, V45.11, ICD10: E10.22, N18.6, Z99.2 (primary diagnosis) Check labs Continue current medications; may consider decrease in Basaglar if A1c low. Continue with Lead Nurse and dialysis 2. Essential hypertension - ICD9: 401.9, ICD10: I10 - Controlled - Continue current medications - Recommend home blood pressure monitoring, to bring results to next visit - Encouraged sodium restriction, DASH or Mediterranean diet - Recommend regular aerobic exercise 3. Depression, unspecified depression type - ICD9: 311, ICD10: F32.A stable 4. ESRD (end stage renal disease) ([facility]) - ICD9: 585.6, ICD10: N18.6 Continue with Lead Nurse and dialysis Monitored with labs 5. Current mild episode of major depressive disorder without prior episode ([facility]) - ICD9: 296.21, ICD10: F32.0 stable - MAGNESIUM OXIDE 400 MG (241.3 MG MAGNESIUM) TABLET 6. Encounter for screening examination for other mental health and behavioral disorders - ICD9: V79.8, ICD10: Z13.39 - ANXIETY SCREENING 7. Hyperlipidemia, unspecified hyperlipidemia type - ICD9: 272.4, ICD10: E78.5 - Control undetermined, due for labs - Continue current medications - Counseled on healthy diet and regular exercise - Discussed need for and benefit of weight loss. BMI 18.85 kg/(m^2) 8. Anemia, unspecified type - ICD9: 285.9, ICD10: D64.9 Stable Monitored with labs Follow up 6 months. Will notify of lab results. I agree with the Chief Complaint, ROS, and Past Histories independently gathered by the clinical donor support technician and the remaining scribed note accurately describes my personal service to the patient. Medical Decision Making: Problems: Moderate: 2+ stable chronic illnesses Data: Unique test(s) ordered: 3+ Risk: Moderate: Drug management Medical Decision Making Level: 4 - Moderate Ron Coronado MD The documentation for this note was completed by Penny Candelario MA acting as scribe for Ron Coronado MD. June 22, 2024 10:14 AM. Penny Candelario MA documented in [facility]01-14-2025 NoteHNO ID: [id number] Author: RON CORONADO MD Service: ? Author Type: Physician Type: Progress Notes Filed: 06/22/2024 15:36 Note Text: Chief Complaint Patient presents with: 6 Month Exam HPI Thom Chapin is a 53 year old male who presents here today for 6 month follow up. Has 4 grandchildren ranging in ages from 5 to 2. No bowel, Gi, or urinary issues. Uses viagra prn ED. Depression/TEMO: Stable. Anemia: Stable, monitored with labs. CKD: Has dialysis every Friday, Friday and Friday. Follows with Lead Nurse Dr. Wells every 6 months. On current regimen of Renvella 800 mg 2 tab po TID and 1-2 tabs with a snack. He is on the waiting list for kidney transplant, he has completed all the testing and requirements for this, has been waiting about 3 months. Lipid: Taking Lipitor 40 mg daily and ASA 81 mg daily. Tolerating well. Tires to watch diet and exercises about an hour 7 days a week. 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 HTN: Is checking BP at home with readings in AM 130/80 to 120/70. BP drops while at dialysis. Seems to be higher when he is at dialysis. Taking Lopressor 25 mg 1 pill BID, Mag-Ox 400 mg 1 pill BID, Hydralazine 100 mg 1 pill TID and Losartan 50 mg daily. Denies any chest pains, dizziness, or SOB. Follows with Cardio Dr. Tesfaye. DM: Checking BS 3 x a day with Dexcom CGM, FBS 130-150. Reading at this current time is 150. Tries to eat between 8 pm-9 pm he tries to eat something so he doesn't bottom out. If he doesn't eat before bed he will bottom out around 3 AM. Neuropathy sx in feet, not any worse. Current regimen of Basaglar 14 units daily which was decreased last visit as pt was having hypoglycemic episodes. Following with Dr. Servin, Time Clerk twice a month. Follows with Dr. Roth and Dr. Shafer for eye exams. Past medical history, appointments, medications, allergies reviewed. Previous Medical History PAST MEDICAL HISTORY Diagnosis Date Cellulitis right foot CKD (chronic kidney disease) stage 4, GFR 15-29 ml/min ([facility]) 2009 DIABETES TYPE I W RENAL MANIF-UNCONTRLLD 01/21/2005 Dialysis: [facility] Diabetic nephropathy ([facility]) 02/22/2010 GLAUCOMA NOS 01/21/2005 Hyperlipidemia HYPERTENSION NOS 01/21/2005 Microcytic anemia NSTEMI (non-ST elevated myocardial infarction) ([facility]) Proteinuria 01/21/2005 PVD (peripheral vascular disease) ([facility]) Suicide attempt ([facility]) November 2009 [facility]> Previous Surgical History PAST SURGICAL HISTORY Procedure Laterality Date AMPUTATION (SPECIFY BODY PART) HX Right 12/2015 5 toes ARTHROSCOPY KNEE DIAGNOSTIC W/WO SYNOVIAL BX SPX 1987 Arthroscopy, knee CC PCI CORONARY INTERVENT 10/19/2018 proximal LAD F COLONOS W/REM POLYP SNARE 03/11/2022 PAST SURGICAL HISTORY OF Right 05/12/2018 Debridement of bone on plantar R foot PAST SURGICAL HISTORY OF Right 2017 Amputation Right Foot VASECTOMY UNI/BI SPX W/POSTOP SEMEN EXAMS 02/14/2007 Family History FAMILY HISTORY Problem Relation Age of Onset Diabetes Mother Ischemic Heart Disease Mother Alcohol/Drug Brother Hypertension Maternal Grandmother Ischemic Heart Disease Sister Patient Allergies ALLERGIES No Known Allergies Current Medications Current Outpatient Medications on File Prior to Visit Medication Sig hydrALAZINE (APRESOLINE) 100 mg tablet Take 1 tablet by mouth three times a day. sevelamer carbonate (RENVELA) 800 mg tablet Take 1 tablet by mouth three times a day with meals. metoprolol tartrate, short acting, (LOPRESSOR) 25 mg tablet Take 1 tablet by mouth two times a day. Insulin Clio, Disposable, (PEN NEEDLE) 32 gauge x 5/32 Give with each insulin administration once in the am and once in the pm atorvastatin (LIPITOR) 40 mg tablet Take 1 tablet by mouth daily at bedtime. For cholesterol. insulin glargine (BASAGLAR KWIKPEN U-100 INSULIN) 100 unit/mL (3 mL) Inject 14 Units subcutaneously every 24 hours. sildenafil (VIAGRA) 50 mg tablet Take 1 tablet by mouth as needed. Take one hour prior to sexual activity magnesium oxide (MAG-OX) 400 mg (241.3 mg magnesium) tablet Take 1 tablet by mouth two times a day. Insulin Clio, Disposable, (PEN NEEDLE) 32 gauge x 5/32 Inject 1 Each subcutaneously every 24 hours. Give with each insulin administration. Insulin Clio, Disposable, (UNIFINE PENTIPS PLUS) 31 gauge x 3/16 USE TWICE DAILY DIRECTED FOR INSULIN Blood-Glucose Sensor (DEXCOM G6 SENSOR) latesha 10 Each as directed. Apply a new Dexcom G 6 Sensor after 10 days of use. COMBIGAN 0.2-0.5 % ophthalmic solution Instill 1 drop in both eyes twice a day timoloL maleate (TIMOPTIC) 0.5 % ophthalmic solution Use 1 Drop in both eyes twice daily. losartan (COZAAR) 50 mg tablet Take 1 tablet by mouth once daily. aspirin 81 mg chewable tablet Take 1 tablet by mouth once daily. latanoprost (XALATAN) 0.005 % ophthalmic solution Use 1 Drop in both eyes daily at bedtime. NOVOFINE AUTO (more content not included)...[facility]12-31-2024 Telephone encounter Note* Telephone Encounter - Ron Coronado MD - 06/08/2024 9:42 AM EST OK to refill as ordered Ron Coronado MD [facility]12-31-2024 Miscellaneous Notes* Telephone Encounter - Ron Coronado MD - 06/08/2024 9:42 AM EST OK to refill as ordered Ron Coronado MD * Telephone Encounter - Eleonora Marshall - 06/08/2024 9:14 AM EST Prescription Refill Information The patient has been identified by name and date of : Yes Caregiver verified no other encounters exist for this prescription request: Yes Caregiver confirmed with patient/requestor that no other refills are due, in the near future, with this provider at this time: Yes The last office visit in the department: 08-12-23 Does the patient have a future office visit with this provider/department: No Requested Prescriptions Pending Prescriptions Disp Refills hydrALAZINE (APRESOLINE) 100 mg tablet 90 tablet 0 Sig: Take 1 tablet by mouth three times a day. sevelamer carbonate (RENVELA) 800 mg tablet 90 tablet 10 Eleonora Fatimah [facility] June 08, 2024 9:16 AM documented in this encounterGreene [facility]12-31-2024 Telephone encounter Note * Telephone Encounter - Eleonora Marshall - 06/08/2024 9:14 AM EST Prescription Refill Information The patient has been identified by name and date of : Yes Caregiver verified no other encounters exist for this prescription request: Yes Caregiver confirmed with patient/requestor that no other refills are due, in the near future, with this provider at this time: Yes The last office visit in the department: 08-12-23 Does the patient have a future office visit with this provider/department: No Requested Prescriptions Pending Prescriptions Disp Refills hydrALAZINE (APRESOLINE) 100 mg tablet 90 tablet 0 Sig: Take 1 tablet by mouth three times a day. sevelamer carbonate (RENVELA) 800 mg tablet 90 tablet 10 Eleonora Sheridan [facility] June 08, 2024 9:16 AM [facility]11-26-2024 Telephone encounter Note* Telephone Encounter - Adela Lundberg RN - 05/04/2024 11:45 AM EST The patient has been identified by name and date of : Yes Caregiver verified no other encounters exist for this prescription request: Yes Caregiver confirmed with patient/requestor that no other refills are due, in the near future, with this provider at this time: Yes The last office visit in the department: 08/12/2023 Does the patient have a future office visit with this provider/department: No Patient no showed 07/01/2023, 01/01/2024 and 02/12/2024; Advised pharmacy that patient needs to set up appointment with provider. Requested Prescriptions Pending Prescriptions Disp Refills hydrALAZINE (APRESOLINE) 100 mg tablet 90 tablet 0 Sig: Take 1 tablet by mouth three times a day. Adela Lundberg RN May 04, 2024 11:45 AM [facility]11-26-2024 Miscellaneous Notes* Telephone Encounter - Adela Lundberg RN - 05/04/2024 11:45 AM EST The patient has been identified by name and date of : Yes Caregiver verified no other encounters exist for this prescription request: Yes Caregiver confirmed with patient/requestor that no other refills are due, in the near future, with this provider at this time: Yes The last office visit in the department: 08/12/2023 Does the patient have a future office visit with this provider/department: No Patient no showed 07/01/2023, 01/01/2024 and 02/12/2024; Advised pharmacy that patient needs to set up appointment with provider. Requested Prescriptions Pending Prescriptions Disp Refills hydrALAZINE (APRESOLINE) 100 mg tablet 90 tablet 0 Sig: Take 1 tablet by mouth three times a day. Adela Lundberg RN May 04, 2024 11:45 AM [facility] Telephone encounter Note * Telephone Encounter - Shanika Daugherty RN - 03/30/2024 1:34 PM EDT Office of [facility] calling to confirm PCP OV date. Shanika Daugherty RN [facility]10-22-2024 Miscellaneous Notes* Telephone Encounter - Shanika Daugherty RN - 03/30/2024 1:34 PM EDT Office of Dr. Sainz of the [facility] calling to confirm PCP OV date. Shanika Daugherty RN [facility] Telephone encounter Note * Telephone Encounter - Montez Toscano APRN.CNP - 03/30/2024 11:46 AM EDT The following approved medication requests have been transmitted electronically. Requested Prescriptions Pending Prescriptions Disp Refills metoprolol tartrate, short acting, (LOPRESSOR) 25 mg tablet 60 tablet 11 Sig: Take 1 tablet by mouth two times a day. Insulin Clio, Disposable, (PEN NEEDLE) 32 gauge x 5/32 100 Each 11 Sig: Give with each insulin administration once in the am and once in the pm Montez Toscano APRN.CNP [facility]10-22-2024 Miscellaneous Notes* Telephone Encounter - Montez Toscano APRN.CNP - 03/30/2024 11:46 AM EDT The following approved medication requests have been transmitted electronically. Requested Prescriptions Pending Prescriptions Disp Refills metoprolol tartrate, short acting, (LOPRESSOR) 25 mg tablet 60 tablet 11 Sig: Take 1 tablet by mouth two times a day. Insulin Clio, Disposable, (PEN NEEDLE) 32 gauge x 5/32 100 Each 11 Sig: Give with each insulin administration once in the am and once in the pm Montez Toscano APRN.CNP * Telephone Encounter - Ophelia Lunsford - 03/30/2024 9:40 AM EDT Prescription Refill Information The patient has been identified by name and date of : Yes Caregiver verified no other encounters exist for this prescription request: Yes Caregiver confirmed with patient/requestor that no other refills are due, in the near future, with this provider at this time: Yes The last office visit in the department: 08-12-23 Does the patient have a future office visit with this provider/department: No Requested Prescriptions Pending Prescriptions Disp Refills metoprolol tartrate, short acting, (LOPRESSOR) 25 mg tablet 60 tablet 11 Sig: Take 1 tablet by mouth two times a day. Insulin Clio, Disposable, (PEN NEEDLE) 32 gauge x 5/32 100 Each 11 Sig: Give with each insulin administration once in the am and once in the pm Ophelia Lunsford March 30, 2024 9:41 AM documented [facility] Telephone encounter Note * Telephone Encounter - Ophelia Lunsford - 03/30/2024 9:40 AM EDT Prescription Refill Information The patient has been identified by name and date of : Yes Caregiver verified no other encounters exist for this prescription request: Yes Caregiver confirmed with patient/requestor that no other refills are due, in the near future, with this provider at this time: Yes The last office visit in the department: 08-12-23 Does the patient have a future office visit with this provider/department: No Requested Prescriptions Pending Prescriptions Disp Refills metoprolol tartrate, short acting, (LOPRESSOR) 25 mg tablet 60 tablet 11 Sig: Take 1 tablet by mouth two times a day. Insulin Clio, Disposable, (PEN NEEDLE) 32 gauge x 5/32 100 Each 11 Sig: Give with each insulin administration once in the am and once in the pm Ophelia Lunsford March 30, 2024 9:41 AM [facility]08-06-2024 Telephone encounter Note* Telephone Encounter - Penny Candelario MA - 01/13/2024 4:13 PM EDT faxed. Penny Candelario MA [facility]08-06-2024 Miscellaneous Notes* Telephone Encounter - Penny Candelario MA - 01/13/2024 4:13 PM EDT faxed. Penny Candelario MA * Telephone Encounter - Ron Coronado MD - 01/13/2024 3:31 PM EDT Done Ron Coronado MD * Telephone Encounter - Teressa Blanco MA - 01/13/2024 10:22 AM EDT Type of form: Medical Necessity for CGMS Form received via fax When form is completed, Fax form to [phone] Form has been forwarded to Physician Desk: Dr. Cliff Blanco MA documented in [facility] Telephone encounter Note * Telephone Encounter - Ron Coronado MD - 01/13/2024 3:31 PM EDT Done Ron Coronado MD [facility]08-06-2024 Telephone encounter Note* Telephone Encounter - Teressa Blanco MA - 01/13/2024 10:22 AM EDT Type of form: Medical Necessity for CGMS Form received via fax When form is completed, Fax form to [phone] Form has been forwarded to Physician Desk: Dr. Cliff Blanco MA [facility]08-01-2024 [facility] Medical Records Department [address] [place] [address] History Physical Exam 01/08/24 0748 MR#: [id number] Acct: [id number] Name: THOM CHAPIN Rep #: [id number] : 1970 53 From: Jenaro Leggett MD PCP: Dr. Ron Coronado MD Status:[facility] Location: [facility] History and Physical HPI HPI HPI: THOM CHAPIN, is a 53 M who presents to the office today for evaluation of AV fistula with diminished flow rates by dialysis center report. He has dialysis MWF at [facility]. He has a L forearm radiocephalic fistula which was created by Dr. Graves in 2016. He has not had any other fistulas. He has required periodic fistulograms with angioplasty for similarly diminished flows over the last 8 years. These have been performed by Dr. Andrews. Reviewing previous records, he had angioplasty of venous stenosis in the proximal fistula and at the anastomosis in 09/2017, arterial anastomotic and proximal fistula venous stenosis angioplasty 12/2018, angioplasty proximal fistula venous stenosis 03/2021. 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 It is also noted that there has been past difficulty with accessing the radial artery. He reports he has not noticed any other difficulties. He has not had any prolonged bleeding, frequent machine alarms, or clotting. No new pain or swelling. He does not have any L hand paresthesias, weakness, or coolness. No other complaints today. His medical history is otherwise significant for DM type 1, HTN, CAD/NSTEMI s/p PCI (2019). He takes daily ASA 81mg with no adverse effects. ROS General General: No weight change, appetite, fatigue, colon cancer, breast cancer or weakness HEENT HEENT: No difficulty swallowing, eye injury, eye surgery, swollen glands or hoarseness Endo Endocrine: Yes diabetes mellitus; No thyroid disease, thyroid cancer, Hair loss, heat intolerance or cold intolerance Skin Skin: No rash or changing moles Musc Musculoskeletal: No back problems, arthritis, rheumatoid arthritis, gout or joint pain Cardio Cardiovascular: Yes high blood pressure, heart attack and heart stent; No murmur, pacemaker, heart disease, atrial fibrillation, palpitations, shortness of breat with exertion or chest pain Psych Psychiatric: No depression, anxiety or hearing voices Resp Respiratory: No shortness of breath, No sleep apnea, No cough, No COPD, No asthma, No emphysema and No wheezing Gastro Gastrointestinal: No abdominal pain, No nausea or vomiting, No diarrhea, No constipation, No blood in stool, No acid reflux, No hemorrhoids, No ulcers, No gallbladder problem and No black,tarry stools Presley Hematologic: No blood thinners, No blood disorders, No bleeding, No anemia and No blood clots Neuro Neurologic: No system reviewed and no additional complaints, except as documented, No as per HPI, No abnormal gait, No abnormal hearing, No abnormal movements, No abnormal speech, No behavioral changes, No burning sensations, No confusion, No convulsions, No disequilibrium, No dizziness, No localized weakness, No frequent falls, No headache(s), No lack of coordination, No loss of vision, No memory loss, No numbness, No other visual disturbances, No radicular pain, No restless legs, No sensory deficit, No syncope, No tingling, No tremor(s), No weakness and No other Exam Const General: cooperative, comfortable and no acute distress Orientation: alert, awake and oriented x3 [facility] Head: normal to inspection, normocephalic and atraumatic Ears: hearing grossly normal bilaterally and external ears normal Nose: external nose normal Eyes General: appearance normal, both eyes and all related structures EOM: EOM intact bilaterally Neck Neck: normal visual inspection and trachea midline Resp Effort Inspection: normal respiratory effort, able to speak in complete sentences, no audible wheezes, no grunting, not labored and no stridor Auscultation: clear to auscultation bilaterally Cardio Rate: regular rate Rhythm: regular rhythm Skin General: no rashes or lesions noted Wounds: no wounds Neuro General: moves all extremities, no focal motor deficits and CN's II-XI intact bilaterally Speech: speech normal Motor: strength 5/5 throughout Sensory Exam: no sensory deficits noted Extremities Additional Details: Palpable L radial pulse. L forearm AVF with palpable thrill and good bruit throughout Coding Level of Care Code Off vis,new,level 3 Diagnoses ESRD (end stage renal disease) on dialysis N18.6; Z99.2 Dialysis AV fistula malfunction T82.590A Assessment and Plan Assessment and Plan (1) ESRD (end stage renal disease) on dialysis: Status: Chronic (2) Dialysis AV fistula malfunction: Status: Acute Plan -fistulagram 01/08/24 0753 (more content not included)...[facility]07-01-2024 Hospital Discharge instructions* Discharge Instructions* Liane Farooq, SIPHONER-EXHAUST EMISSIONS INSPECTOR - 12/08/2023 1:12 PM EDT Images from the original note were not included. CARDIAC CATHETERIZATION DISCHARGE INSTRUCTIONS (procedure done on 12/08/23) FOR SUDDEN AND SEVERE CHEST PAIN, SHORTNESS OF BREATH, EXCESSIVE BLEEDING, SIGNS OF STROKE, OR CHANGES IN MENTAL STATUS YOU SHOULD CALL 911 IMMEDIATELY. If your provider has prescribed aspirin and/or clopidogrel (Plavix), or prasugrel (Effient), or ticagrelor (Brilinta), DO NOT STOP THESE MEDICATIONS for any reason without talking to your car and yard supervisor first. If any of these were prescribed, you must take them every day without missing a single dose. If you are getting low on these medications, contact your provider immediately for a refill. FOR NEXT 24 HOURS - Upon discharge, you should return home and rest for the remainder of the day and evening. You do not have to stay on bed rest but should not be very active. It is recommended a responsible adult bewith you for the first 24 hours after the procedure. - No driving for 24 hours after procedure. Please arrange for someone to drive you home from the hospital today. - Do not drive, operate machinery, or use power tools for 24 hours after your procedure. - Do not make any legal decisions for 24 hours after your procedure. - Do not drink alcoholic beverages for 24 hours after your procedure. WOUND CARE *FOR FEMORAL (LEG) ACCESS* Avoid heavy lifting (over 10 pounds) for 7 days, squatting or excessive bending for 2 days, and strenuous exercise for 7 days. No submerged bathing, swimming, or hot tubs for the next 7 days, or until fully healed. Avoid sexual activity for 3-4 days until any groin discomfort has ceased. *FOR RADIAL (WRIST) ACCESS* No lifting more than 5 pounds or excessive use of the wrist for 24 hours - for example, treat your wrist as if it is sprained. Do not engage in vigorous activities (tennis, golf, bowling, weights) for at least 48 hours after the procedure. Do not submerge the wrist for 7 days after the procedure. You should expect mild tingling in your hand and tenderness at the puncture site for up to 3 days. - The transparent dressing should be removed from the site 24 hours after the procedure. Wash the site gently with soap and water. Rinse well and pat dry. Keep the area clean and dry. You may apply aBand-Aid to the site. Avoid lotions, ointments, or powders until fully healed. - You may shower the day after your procedure. - It is normal to notice a small bruise around the puncture site and/or a small grape sized or smaller lump. Any large bruising or large lump warrants a call to the office. - If bleeding should occur, lay down and apply pressure to the affected area for 10 minutes. If thebleeding stops notify your physician. If there is a large amount of bleeding or spurting of blood CALL [address] yourself to the hospital. - You may experience some tenderness, bruising or minimal inflammation. If you have any concerns, you may contact the Chopper Operator or if any of these symptoms become excessive, contact your car and yard supervisor or go to the emergency room. OTHER INSTRUCTIONS - You may take acetaminophen (Tylenol) as directed for discomfort. If pain is not relieved with acetaminophen (Tylenol), contact your doctor. - If you notice or experience any of the following, you should notify your doctor or seek medical attention Chest pain or discomfort Change in mental status or weakness in extremities. Dizziness, light headedness, or feeling faint. Change in the site where the procedure was performed, such as bleeding or an increased area of bruising or swelling. Tingling, numbness, pain, or coolness in the leg/arm beyond the site where the procedure was performed. Signs of infection (i.e. shaking chills, temperature > 100 degrees Fahrenheit, warmth, redness) in the leg/arm area where the procedure was performed. Changes in urination Bloody or black stools Vomiting blood Severe nose bleeds Any excessive bleeding - If you DO NOT have an appointment with your car and yard supervisor within 2-4 weeks following your procedure, please contact their office. documented in this [facility] Work Phone: 1(642) 700-390607-01-2024 History of Present illness Narrative* Peter Gamez, [facility] - 12/08/2023 12:41 PM EDT Pharmacy Medication History Review Thom Chapin is a 53 y.o. male admitted for 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. Pharmacy reviewed the patient's ygbuv-lt-buhinpxca medications and allergies for accuracy. The list below reflects the updated DONATION WORKER list. Comments regarding how patient may be taking medications differently can be found in the Admit Orders Activity Prior to Admission Medications Prescriptions Last Dose Informant Patient Reported? Dialyvite 800-Ultra D 0.8-2,000 mg-unit tablet 12/07/2023 Self Yes Sig: Take 1 tablet by mouth early in the morning.. atorvastatin (Lipitor) 40 mg tablet 12/07/2023 Self Yes Sig: Take 1 tablet (40 mg) by mouth once daily. cholecalciferol (Vitamin D-3) 50 mcg (2,000 unit) capsule 12/07/2023 Self Yes Sig: Take 1 capsule (50 mcg) by mouth early in the morning.. dorzolamide-timoloL (Cosopt) 22.3-6.8 mg/mL ophthalmic solution 12/07/2023 Self Yes Sig: Instill 1 drop in both eyes twice a day hydrALAZINE (Apresoline) 100 mg tablet 12/07/2023 Self Yes Sig: Take 1 tablet (100 mg) by mouth 3 times a day. insulin glargine (Basaglar KwikPen U-100 Insulin) 100 unit/mL (3 mL) pen 12/07/2023 Patient using 16 units daily Self Yes Sig: Inject 14 Units under the skin once daily in the morning. Take as directed per insulin instructions. latanoprost (Xalatan) 0.005 % ophthalmic solution 12/07/2023 Self Yes Sig: Administer 1 drop into affected eye(s). magnesium oxide (Mag-Ox) 400 mg (241.3 mg magnesium) tablet 12/07/2023 Self Yes Sig: Take 1 tablet (400 mg) by mouth 2 times a day. methoxy peg-epoetin beta (MIRCERA INJ) Unknown Self Yes Si mcg every 14 (fourteen) days. metoprolol tartrate (Lopressor) 25 mg tablet 12/07/2023 Self Yes Sig: Take 1 tablet (25 mg) by mouth 2 times a day. multivitamin tablet 12/07/2023 Self Yes Sig: Take 1 tablet by mouth once daily. sevelamer carbonate (Renvela) 800 mg tablet 12/07/2023 Self Yes Sig: Take 2 tablets (1,600 mg) by mouth 3 times a day. With meals and 1-2 tablets with snacks sildenafil (Viagra) 50 mg tablet Unknown Self Yes Sig: Take 1 tablet (50 mg) by mouth if needed. Facility-Administered Medications: None The list below reflects the updated allergy list. Please review each documented allergy for additional clarification and justification. Allergies Reviewed by Mee Gore RN on 12/08/2023 Severity Reactions Comments Calcium Not Specified Hives Patient declines M2B at discharge. Sources used to complete the med history include out patient fill history, OARRS, and patient interview along with 11/18/[address] Karen Antonio. Below are additional concerns with the patient's DONATION WORKER list. Peter Gamez [facility] Transitions of Care Clinical Pharmacist Please reach out via [employer] for questions, if no response call [facility] or [facility] documented in this [facility] Work Phone: [phone]) 611-474007-01-2024 Miscellaneous Notes* Post-Procedure Note - Janet Jiménez MD - 12/08/2023 11:53 AM EDT Physician Transition of Care Summary Invasive Cardiovascular Lab Procedure Date: 12/08/2023 Attending: * Janet Jiménez - Primary Resident/Fellow/Other Heavy Mobile Equipment Repairer: Surgeons and Role: * Alex Lacey MD - Fellow * Osvaldo Patterson MD - Fellow Indications: Pre-op Diagnosis * 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 [I25.10] * Preoperative cardiovascular examination [Z01.810] Post-procedure diagnosis: Post-op Diagnosis * 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 [I25.10] * Preoperative cardiovascular examination [Z01.810] Procedure(s): Left Heart Cath 84451 - ID CATH PLMT L HRT & ARTS W/NJX & ANGIO IMG S&I Procedure Findings: Moderate [~50%] mid RCA and mild proximal-mid LAD ISR in a right-dominant system. Access of the Procedure: Attempted 6F RRA but could not advance catheter due to spasm, access closed with TR band. Switched to 5F right SECURITIES AND REAL ESTATE DIRECTOR, closed with Vascade and manual pressure. Complications: None. Stents/Implants: None. Anticoagulation/Antiplatelet Plan: Heparin 3,500 units bolus for radial access. Estimated Blood Loss: 5 mL Anesthesia: Moderate Sedation Anesthesia Staff: No anesthesia staff entered. Any Specimen(s) Removed: Order Name Source Comment Collection Info Order Time BASIC METABOLIC PANEL Blood, Venous Collected By: Stanley Forman RN 12/08/2023 11:31 AM Release result to MyChart Immediate CBC Blood, Venous Collected By: Stanley Forman RN 12/08/2023 11:31 AM Release result to MyChart Immediate Disposition: TR band removal per protocol. 3.5 hours bedrest. Further management as per Dr. Antonio. Electronically signed by: Janet Jiménez MD, 12/08/2023 1:05 PM * Pre-Sedation Documentation - SIN Ac - 12/08/2023 11:47 AM EDT Sedation Plan ASA 3 Mallampati class: II. Risks, benefits, and alternatives discussed with patient. documented in this [facility] Work Phone: 1(992) 996-737107-01-2024 Note* Post-Procedure Note - Janet Jiménez MD - 12/08/2023 11:53 AM EDT Physician Transition of Care Summary Invasive Cardiovascular Lab Procedure Date: 12/08/2023 Attending: * Janet Jiménez - Primary Resident/Fellow/Other Heavy Mobile Equipment Repairer: Surgeons and Role: * Alex Lacey MD - Fellow * Osvaldo Patterson MD - Fellow Indications: Pre-op Diagnosis * 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 [I25.10] * Preoperative cardiovascular examination [Z01.810] Post-procedure diagnosis: Post-op Diagnosis * 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 [I25.10] * Preoperative cardiovascular examination [Z01.810] Procedure(s): Left Heart Cath 37056 - ID CATH PLMT L HRT & ARTS W/NJX & ANGIO IMG S&I Procedure Findings: Moderate [~50%] mid RCA and mild proximal-mid LAD ISR in a right-dominant system. Access of the Procedure: Attempted 6F RRA but could not advance catheter due to spasm, access closed with TR band. Switched to 5F right SECURITIES AND REAL ESTATE DIRECTOR, closed with Vascade and manual pressure. Complications: None. Stents/Implants: None. Anticoagulation/Antiplatelet Plan: Heparin 3,500 units bolus for radial access. Estimated Blood Loss: 5 mL Anesthesia: Moderate Sedation Anesthesia Staff: No anesthesia staff entered. Any Specimen(s) Removed: Order Name Source Comment Collection Info Order Time BASIC METABOLIC PANEL Blood, Venous Collected By: Stanley Forman RN 12/08/2023 11:31 AM [facility] Immediate CBC Blood, Venous Collected By: Stanley Forman RN 12/08/2023 11:31 AM Release result to MyChart Immediate Disposition: TR band removal per protocol. 3.5 hours bedrest. Further management as per Dr. Antonio. Electronically signed by: Janet Jiménez MD, 12/08/2023 1:[address] [facility] Work Phone: 1(212) 365-857707-01-2024 Note* Pre-Sedation Documentation - SIN Ac - 12/08/2023 11:47 AM EDT Sedation Plan ASA 3 Mallampati class: II. Risks, benefits, and alternatives discussed with patient. [facility] Work Phone: 1(374) 235-709107-01-2024 Attending History and physical note* SIN Ac - 12/08/2023 11:45 AM EDT H&P reviewed. The patient was examined and there are no changes to the H&P. Pre- renal transplant eval. Denies CP, SOB, dizziness, lightheadedness, orthopnea. LUE fistula, +/+. Source Note - Karen Antonio MD - 11/18/2023 10:00 AM EDT Jaquelin Chapin is a 53 y.o. male presenting for prerenal transplant cardiology assessment on a background of ESRD on HD since 2016 by ABI CATALAN, DM 1, CAD/NSTEMI status post PCI [2019, OSH], right eye amputation, depression. Investigations: TTE [10/02/2023]-LVEF 50-55%, moderate LVH, RVSP 17 mmHg. Nuclear stress test [11/2022]-no evidence of inducible ischemia or prior infarction. Normal biventricular systolic function. KEG [11/2023] - NSR, left axis deviation, poor R-wave progression. Chief Complaint: No chief complaint on file. HPI No chest pain. Active - rides bicycle, no issues with walking on flat, can climb 2 flights of stairs. Denies prior congestive heart failure. No palpitations, presyncope or syncope. No hospital admission in the last year. HD via LUE fistula. CV risk: HTN - satisfactory control, on lisinopril 10mg daily, hydralazine 100mg tid, metoprolol tartrate 25mg bid. LDL 39 mg/dL on atorvastatin 40mg daily. DM1 - HbA1c 6.3% Fam hx - no sig CVD. Non-smoker. Shx - lives alone, independent ADLs. No ETOH. ROS A 10-system review was performed and was unremarkable apart from what is presented in the HPI. Objective Physical Exam Alert and orientated. Appropriate responses, normal affect. No respiratory distress at rest. Skin warm and dry. LUE AV F in situ. Normal radial pulse character and volume. Clinically SR. Anicteric sclera, no conjunctival pallor. No JVD or carotid bruits. Heart sounds dual, no added heart sounds or audible murmurs. Chest clear on auscultation. Calves soft, non-tender. No pedal edema. Lab Review: Lab Results Component Value Date BUN 44 (H) 08/19/2023 CREATININE 7.45 (H) 08/19/2023 No results found for: CKTOTAL, CKMB, CKMBINDEX, TROPONINI Lab Results Component Value Date WBC 4.8 08/19/2023 HGB 10.7 (L) 08/19/2023 HCT 36.2 (L) 08/19/2023 MCV 77 (L) 08/19/2023 PLT 144 (L) 08/19/2023 Lab Results Component Value Date CHOL 103 08/19/2023 TRIG 43 08/19/2023 HDL 55.3 08/19/2023 Assessment/Plan In summary, Thom Chapin is a 53 y.o. male presenting for prerenal transplant cardiology assessment on a background of ESRD on HD since 2015 by ABI CATALAN, DM 1, CAD/NSTEMI status post PCI [2019, OSH],right eye amputation, depression. He is currently asymptomatic from cardiac viewpoint with no reported chest pain or dyspnea. He is active and reports satisfactory exercise capacity. He was euvolemicon examination today with mild systolic hypertension and his EKG showed sinus rhythm. His CV risk factors are adequately controlled on current therapy which I have advised him to continue. As there is a history of CAD/NSTEMI status post PCI I have arranged for an [facility] for definitive coronary assessment as part of his prerenal transplant cardiology workup. If there is no evidence of obstructive CADhe will not require additional cardiac testing. Final recs to be provided following LHC. [facility] Work Phone: [phone]) 712-748007-01-2024 History and physical note* SIN Ac - 12/08/2023 11:45 AM EDT H&P reviewed. The patient was examined and there are no changes to the H&P. Pre- renal transplant eval. Denies CP, SOB, dizziness, lightheadedness, orthopnea. LUE fistula, +/+. Source Note - Karen Antonio MD - 11/18/2023 10:00 AM EDT Jaquelin Chapin is a 53 y.o. male presenting for prerenal transplant cardiology assessment on a background of ESRD on HD since 2016 by ABI CATALAN, DM 1, CAD/NSTEMI status post PCI [2019, OSH], right eye amputation, depression. Investigations: TTE [10/02/2023]-LVEF 50-55%, moderate LVH, RVSP 17 mmHg. Nuclear stress test [11/2022]-no evidence of inducible ischemia or prior infarction. Normal biventricular systolic function. KEG [11/2023] - NSR, left axis deviation, poor R-wave progression. Chief Complaint: No chief complaint on file. HPI No chest pain. Active - rides bicycle, no issues with walking on flat, can climb 2 flights of stairs. Denies prior congestive heart failure. No palpitations, presyncope or syncope. No hospital admission in the last year. HD via LUE fistula. CV risk: HTN - satisfactory control, on lisinopril 10mg daily, hydralazine 100mg tid, metoprolol tartrate 25mg bid. LDL 39 mg/dL on atorvastatin 40mg daily. DM1 - HbA1c 6.3% Fam hx - no sig CVD. Non-smoker. Shx - lives alone, independent ADLs. No ETOH. ROS A 10-system review was performed and was unremarkable apart from what is presented in the HPI. Objective Physical Exam Alert and orientated. Appropriate responses, normal affect. No respiratory distress at rest. Skin warm and dry. LUE AV F in situ. Normal radial pulse character and volume. Clinically SR. Anicteric sclera, no conjunctival pallor. No JVD or carotid bruits. Heart sounds dual, no added heart sounds or audible murmurs. Chest clear on auscultation. Calves soft, non-tender. No pedal edema. Lab Review: Lab Results Component Value Date BUN 44 (H) 08/19/2023 CREATININE 7.45 (H) 08/19/2023 No results found for: CKTOTAL, CKMB, CKMBINDEX, TROPONINI Lab Results Component Value Date WBC 4.8 08/19/2023 HGB 10.7 (L) 08/19/2023 HCT 36.2 (L) 08/19/2023 MCV 77 (L) 08/19/2023 PLT 144 (L) 08/19/2023 Lab Results Component Value Date CHOL 103 08/19/2023 TRIG 43 08/19/2023 HDL 55.3 08/19/2023 Assessment/Plan In summary, Thom Chapin is a 53 y.o. male presenting for prerenal transplant cardiology assessment on a background of ESRD on HD since 2016 by ABI CATALAN, DM 1, CAD/NSTEMI status post PCI [2019, OSH],right eye amputation, depression. He is currently asymptomatic from cardiac viewpoint with no reported chest pain or dyspnea. He is active and reports satisfactory exercise capacity. He was euvolemicon examination today with mild systolic hypertension and his EKG showed sinus rhythm. His CV risk factors are adequately controlled on current therapy which I have advised him to continue. As there is a history of CAD/NSTEMI status post PCI I have arranged for an [facility] for definitive coronary assessment as part of his prerenal transplant cardiology workup. If there is no evidence of obstructive CADhe will not require additional cardiac testing. Final recs to be provided following LHC. documented in this [facility] Work Phone: [phone]) 969-471706-11-2024 History of Present illness Narrative* Karen Antonio MD - 11/18/2023 10:00 AM EDT Jaquelin Chapin is a 53 y.o. male presenting for prerenal transplant cardiology assessment on a background of ESRD on HD since 2016 by LUE AVF, DM 1, CAD/NSTEMI status post PCI [2019, OSH], right eye amputation, depression. Investigations: TTE [10/02/2023]-LVEF 50-55%, moderate LVH, RVSP 17 mmHg. Nuclear stress test [11/2022]-no evidence of inducible ischemia or prior infarction. Normal biventricular systolic function. KEG [11/2023] - NSR, left axis deviation, poor R-wave progression. Chief Complaint: No chief complaint on file. HPI No chest pain. Active - rides bicycle, no issues with walking on flat, can climb 2 flights of stairs. Denies prior congestive heart failure. No palpitations, presyncope or syncope. No hospital admission in the last year. HD via LUE fistula. CV risk: HTN - satisfactory control, on lisinopril 10mg daily, hydralazine 100mg tid, metoprolol tartrate 25mg bid. LDL 39 mg/dL on atorvastatin 40mg daily. DM1 - HbA1c 6.3% Fam hx - no sig CVD. Non-smoker. Shx - lives alone, independent ADLs. No ETOH. ROS A 10-system review was performed and was unremarkable apart from what is presented in the HPI. Objective Physical Exam Alert and orientated. Appropriate responses, normal affect. No respiratory distress at rest. Skin warm and dry. LUE AV F in situ. Normal radial pulse character and volume. Clinically SR. Anicteric sclera, no conjunctival pallor. No JVD or carotid bruits. Heart sounds dual, no added heart sounds or audible murmurs. Chest clear on auscultation. Calves soft, non-tender. No pedal edema. Lab Review: Lab Results Component Value Date BUN 44 (H) 08/19/2023 CREATININE 7.45 (H) 08/19/2023 No results found for: CKTOTAL, CKMB, CKMBINDEX, TROPONINI Lab Results Component Value Date WBC 4.8 08/19/2023 HGB 10.7 (L) 08/19/2023 HCT 36.2 (L) 08/19/2023 MCV 77 (L) 08/19/2023 PLT 144 (L) 08/19/2023 Lab Results Component Value Date CHOL 103 08/19/2023 TRIG 43 08/19/2023 HDL 55.3 08/19/2023 Assessment/Plan In summary, Thom Chapin is a 53 y.o. male presenting for prerenal transplant cardiology assessment on a background of ESRD on HD since 2016 by ABI CATALAN, DM 1, CAD/NSTEMI status post PCI [2019, OSH],right eye amputation, depression. He is currently asymptomatic from cardiac viewpoint with no reported chest pain or dyspnea. He is active and reports satisfactory exercise capacity. He was euvolemicon examination today with mild systolic hypertension and his EKG showed sinus rhythm. His CV risk factors are adequately controlled on current therapy which I have advised him to continue. As there is a history of CAD/NSTEMI status post PCI I have arranged for an [facility] for definitive coronary assessment as part of his prerenal transplant cardiology workup. If there is no evidence of obstructive CADhe will not require additional cardiac testing. Final recs to be provided following LHC. [facility] Work Phone: 1([phone]) 265-322206-11-2024 Instructions* Patient Instructions* Karen Antonio MD - 11/18/2023 10:00 AM EDT Thank you for attending the cardiology clinic at [facility] today. It was nice to meet you. Your cardiovascular examination and blood pressure was satisfactory. Your EKG showed normal heart rhythm. Your recent echocardiogram showed normal heart muscle function. As you have had a prior stent in the heart arteries not require a heart catheter as part of your transplant workup. You will be contacted by staff to schedule this test. I will notify you of the results when available. documented in this [facility] Work Phone: 1(401) 110-258806-04-2024 Telephone encounter Note* Telephone Encounter - Montez Toscano APRN.CNP - 11/11/2023 11:59 AM EDT Sent. The following approved medication requests have been transmitted electronically. Requested Prescriptions Signed Prescriptions Disp Refills atorvastatin (LIPITOR) 40 mg tablet 90 tablet 3 Sig: Take 1 tablet by mouth daily at bedtime. For cholesterol. Authorizing Provider: MONTEZ TOSCANO insulin glargine (BASAGLAR KWIKPEN U-100 INSULIN) 100 unit/mL (3 mL) 15 mL 3 Sig: Inject 14 Units subcutaneously every 24 hours. Authorizing Provider: MONTEZ TOSCANO APRN.CNP [facility]06-04-2024 Miscellaneous Notes* Telephone Encounter - Montez Toscano APRN.CNP - 11/11/2023 11:59 AM EDT Sent. The following approved medication requests have been transmitted electronically. Requested Prescriptions Signed Prescriptions Disp Refills atorvastatin (LIPITOR) 40 mg tablet 90 tablet 3 Sig: Take 1 tablet by mouth daily at bedtime. For cholesterol. Authorizing Provider: MONTEZ TOSCANO insulin glargine (BASAGLAR KWIKPEN U-100 INSULIN) 100 unit/mL (3 mL) 15 mL 3 Sig: Inject 14 Units subcutaneously every 24 hours. Authorizing Provider: MONTEZ TOSCANO APRN.CNP * Telephone Encounter - Siomara Pearl MA - 11/11/2023 11:53 AM EDT Patient confirms to using only Basaglar. TC to [facility] to confirm Levermir d/c in patient's med list. Med is d/c. Pended Basaglar as patient is due for refills. Siomara Pearl MA * Telephone Encounter - Montez Toscano APRN.CNP - 11/11/2023 10:47 AM EDT According to Dr. Coronado's note in August. Patient is just taking insulin glargine (basaglar) at 14 units. Can we investigate? Montez Toscano APRN.CNP * Telephone Encounter - Gretel Persaud - 11/11/2023 10:32 AM EDT Pharmacy also asked for a refill of Levomir Flex pen 15 ml -not seeing in current list for refill. Patient has been identified by name and date of : Yes, Pharmacy phones for refill(s): Requested Prescriptions Pending Prescriptions Disp Refills atorvastatin (LIPITOR) 40 mg tablet 90 tablet 3 Sig: Take 1 tablet by mouth daily at bedtime. For cholesterol. Date of last office visit in primary care: 08/12/2023 Date of next office visit in primary care: 02/12/2024 [facility] Please advise. Thank you. Gretel Persaud. [facility] Telephone encounter Note * Telephone Encounter - Siomara Pearl MA - 11/11/2023 11:53 AM EDT Patient confirms to using only Basaglar. [facility] Levermir [facility] in patient's med list. Med is d/c. Pended Basaglar as patient is due for refills. Siomara Pearl MA [facility]06-04-2024 Telephone encounter Note* Telephone Encounter - Montez Toscano APRN.CNP - 11/11/2023 10:47 AM EDT According to Dr. Coronado's note in August. Patient is just taking insulin glargine (basaglar) at 14 units. Can we investigate? Montez Toscaon APRN.[employer] EMISSIONS INSPECTOR [facility]06-04-2024 Telephone encounter Note* Telephone Encounter - Gretel Persaud - 11/11/2023 10:32 AM EDT Pharmacy also asked for a refill of Levomir Flex pen 15 ml -not seeing in current list for refill. Patient has been identified by name and date of : Yes, Pharmacy phones for refill(s): Requested Prescriptions Pending Prescriptions Disp Refills atorvastatin (LIPITOR) 40 mg tablet 90 tablet 3 Sig: Take 1 tablet by mouth daily at bedtime. For cholesterol. Date of last office visit in primary care: 08/12/2023 Date of next office visit in primary care: 02/12/2024 [facility] Please advise. Thank you. Gretel Persaud. [facility]03-12-2024 History of Present illness Narrative* Brandi Cavanaugh MD - 08/19/2023 2:30 PM EDT Images from the original note were not included. Kidney Transplant Evaluation Office Visit Chief Complaint: Patient presents for kidney transplant evaluation History of Present Illness: Thom Chapin is a 52 y.o. male presents with ESRD from DM1, hypertension. He started dialysis in 12/2015 and currently on 3 times a week HD via a LUE AVF. He is tolerating HD without issues. He is Oliguirc. Additional past history significant for Right toe amputation, CAD/NSTEMI s/p PCI stent in 2018, depression with history of suicide attempt in 2009. In clinic today, he denies any chest pain, SOB, palpitations, as well as any recent fever, abdominal pain, difficulty voiding or other urinary symptoms, constipation, or poor oral intake. Hemodialysis: 3 times a week Dialysis Access: LUE AVF Urine Status: oliguric. Disease Etiology: diabetic nephropathy Disease Complications: dyslipidemia and CAD PVD: YES on exam, CT import pending Prior Abdominal Surgery: NO Prior Malignancy: NO BMI: Body mass index is 19.32 kg/m . Potential Living Donors: NO Review of Systems: Cardiac: Denies chest pain, palpitations : Oliguric. Denies history of gross hematuria, nephrolithiasis, urinary retention, or recurrent UTIs. Vascular: Denies personal or familial history of DVT/PE. No active claudication or non-healing LE wounds. Extremities: LE Edema - Functional Status: Can walk up 2 flights of stairs Past Medical History: CAD/NSTEMI s/p PCI stent in 2019 Depression with history of suicide attempt in 2010 Past Surgical History: Right toe amputation Social History: Lives an independent life Denies any alcohol, drug or smoking use Marijuana use Transfusions: None : Not applicable Prior transplant: No Family History: Mother: n/a Father: n/a Sibling: n/a Physical Exam: Vitals: 08/19/23 1424 BP: 132/78 Pulse: 72 Temp: 36.6 C (97.8 F) SpO2: 98% Gen: A+OX3; NAD HEENT: PERRL, sclera anicteric, MMM Cardiac: RRR Chest: Normal inspiratory effort Abdomen: S/NT/ND. Ext: No LE edema Vascular: 1+ palpable femoral pulses Psychiatric: Normal mood, affect Assessment/Plan: - The patient is a candidate for kidney transplantation. - Routine age/gender based screening - Cardiac testing per protocol: ECHO/stress test/ CT cardiac score - Non-contrast CT scan abdomen/pelvis - import from outside hospital - Good functional status Surgical Considerations: Review CT when available Psych eval Transplant Education: I had a discussion with this patient regarding 1 year graft and patient survival statistics following renal transplantation for both living and donor allograft recipients. [facility] compared to National data readily available for review on [email or web address]. The patient also had attended the kidney transplant education class provided by the transplant institute. The difference between allograft function was discussed comparing living donor, KDPI 0-85%, and >85% kidneys. Further discussion included: -The transplant selection committee process. -The need for lifelong immunosuppressive therapy, and the side effects of these medications including the risk of infections, cancer, and lymphoma. -The wait list time approximately is 5 years or more for donor transplants and the statistical superiority of a living donor. -Using identified donors with risk criteria for transmission of infection -The possibility of utilizing donors with known HCV antibody and/or MEGHAN positivity and post-transplant treatment/surveillance protocol -Potential transmission of infectious disease from any donors, as well as living donors. -The possibility of transmission of tumors and infections via the transplanted organ. -The inability to completely test for all potential harmful tumors or infectious agents. -The possibility of listing at multiple locations. Surgical complications including need for reoperation(s) including but not limited to: -Bleeding. -Repair of leaks. -Control of infection. -Blood clots in the transplant vessels. -Possible kidney transplant removal. The medical complications including but not limited to: -. -Cardiac. -Pulmonary. -Infectious. -Neurologic. -Other Complications. We also discussed how the kidney transplant could function: -Non-function and possible kidney transplant removal within the first 3 to 6 months. -Delayed graft function (dialysis needed after transplant). -The potential of recurrence of kidney disease leading to kidney transplant graft loss. Time Attestation: I spent 60 minutes with the patient, over 50 minutes in counseling and education as outlined above. Brandi Cavanaugh MD, [facility] Transplant & Hepatobiliary Surgery documented in this [facility]Mer[facility] Work Phone: 1(327) 835-684103-12-2024 Instructions* Patient Instructions* Adela Escamilla RN - 08/19/2023 2:30 PM EDT Thank You for coming to [facility] [place]. You are currently in evaluation for kidney transplant. In order to be eligible to be placed on the wait list you must complete certain tests and appointments. The following tests/appointments will be scheduled for you: Chest xray Echocardiogram Virtual Finance consult Cardiology consult Please call [phone] with any questions or if you need assistance. Adela BACK, commercial specialistConsulting Group Analyst documented in this encounterMer[facility] Work Phone: 1(872) [phone] History of Present illness Narrative* Eduardo Cleary MD - 08/19/2023 2:00 PM EDT Images from the original note were not included. TRANSPLANT NEPHROLOGY CONSULT : KIDNEY TRANSPLANT RECIPIENT EVALUATION SERVICE DATE: 08/19/2023 REASON FOR CONSULT/CHIEF COMPLAINT: FOR KIDNEY TRANSPLANT RECIPIENT EVALUATION. HPI: Mr. Chapin is a 52 y.o. male with past medical history significant for ESRD on HD since 12/2015 (MWF, LFA AVF, [facility], Dr. Felipe), CKD sec to DM1 (dx at age 23y), HTN, hyperlipidemia, CAD h/o PCI 2018, depression h/o suicide attempt 2009, h/o PVD s/p Rt toe amputation, other pmh as listed below here to be evaluated as potential candidate for kidney transplant. Pt was last seen in pre-txp clinic in 2019, was deemed reasonable but did not follow through with eval. Today, pt states he is now ready to proceed with txp eval. Doing well overall. Tolerating HD well. No issues with HD access. Still makes some urine. No recent hospitalizations or ER visits. Tries to stay active physically. Able to perform all ADLs and IADLs independently. No potential donors. Reports having adequate social support. The patient is here for kidney transplant recipient evaluation. Mr. Chapin has had multiple complications from end stage severe renal disease including anemia, secondary hyperparathyroidism, and osteodystrophy. The patient is here today for an evaluation for kidney transplantation to improve quality of life and decrease the risk of cardiovascular disease, coronary artery disease and stroke. The patient is doing well without complaints. Denied chest pain, shortness of breath, palpitation, dyspnea on exertion, dysuria, fever, nausea, vomiting, diarrhea and flu-liked symptoms. No swelling of the extremities. No recent hospitalization or ED visit. ROS: Review of 14 systems was performed system by system. See HPI. Otherwise, the symptoms were negative. PAST MEDICAL HISTORY: No past medical history on file. PAST SURGICAL HISTORY: No past surgical history on file. SOCIAL HISTORY: Social History Socioeconomic History Marital status: Single Spouse name: Not on file Number of children: Not on file Years of education: Not on file Highest education level: Not on file Occupational History Not on file Tobacco Use Smoking status: Never Smokeless tobacco: Never Substance and Sexual Activity Alcohol use: Not Currently Drug use: Yes Types: Marijuana Sexual activity: Not on file Other Topics Concern Not on file Social History Narrative Not on file Social Determinants of Health Financial Resource Strain: Not on file Food Insecurity: No Food Insecurity (08/19/2023) Hunger Vital Sign Worried About Running Out of Food in the Last Year: Never true Ran Out of Food in the Last Year: Never true Transportation Needs: Not on file Physical Activity: Not on file Stress: Not on file Social Connections: Not on file Intimate Partner Violence: Not on file Housing Stability: Not on file FAMILY HISTORY: No family history on file. - strong h/o DM in multiple family members. Some cousins on dialysis MEDICATION LIST: No current outpatient medications ALLERGY No Known Allergies PHYSICAL EXAM: Visit Vitals BP 132/81 Pulse 72 Temp 36.6 C (97.8 F) (Temporal) Ht 1.88 m (6' 2) Wt 68.3 kg (150 lb 8 oz) SpO2 98% BMI 19.32 kg/m Smoking Status Never BSA 1.89 m General Appearance - NAD, Good speech, oriented and alert HEENT - Supple. Not pale. No jaundice. No cervical lymphadenopathy. CVS - RRR. Normal S1/S2. No murmur, click , rub or gallop Lungs- clear to auscultation bilaterally Abdomen - soft , not tender, no guarding, no rigidity. . Musculoskeletal /Extremities - no edema. Full ROM Neuro/Psych - appropriate mood and affect. Motor power V/V all extremities. Skin - No visible rash Dialysis access : LUE AVF is clean, dry and intact. No signs of infection. LABS: Lab Results Component Value Date WBC 4.8 08/19/2023 HGB 10.7 (L) 08/19/2023 HCT 36.2 (L) 08/19/2023 PLT 144 (L) 08/19/2023 CHOL 103 08/19/2023 TRIG 43 08/19/2023 HDL 55.3 08/19/2023 ALT 19 08/19/2023 AST 23 08/19/2023 CREATININE 7.45 (H) 08/19/2023 BUN 44 (H) 08/19/2023 PSA 0.28 05/23/2020 INR 1.0 08/19/2023 HGBA1C 6.3 (H) 08/19/2023 ASSESSMENT AND PLAN: Pt appears to be a reasonable candidate from medical standpoint. No potential donor. Reports adequate social support. Will need abd imaging, eval for PVD, cardiac testing for risk stratification. Uses marijuana for sleep and appetite. H/o depression ?suicidal attempt in 2010, denies any symptoms currently. Needs thorough psychosocial eval. Rest of the eval per protocol. The case will be presented at the selection committee at the [facility] [place], [facility]. The final decision from the committee will be sent out to notify the patient/primary care physician/ manager country. The above recommendations were discussed with the patie nt at length. In addition, the following were also discussed: - Risks and benefits of transplantation, both short-term and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 or SOB. Is on Lopressor 25 mg 1 pill BID, Mag-Ox 400 mg 1 tab po bid, Hydralazine 100 mg TID and Losartan [address] Tesfaye in August for abnormal EKG, no changes made. Had stress done at the end of November that was normal. Lipid: Taking Lipitor 40 mg daily, tolerating well. Also taking ASA 81 mg daily. Exercises by lifting weights, started this 3 months ago 4 x per week. He also rides his bike. Tries to watch diet. Depression/TEMO: Overall stable. Has routine eye exams through Dr. Roth and Dr. Shafer. On regimen of eyedrops. - DM foot, routine checks by Dr. Servin. Past medical history, appointments, medications, allergies reviewed. Previous Medical History PAST MEDICAL HISTORY Diagnosis Date Cellulitis right foot CKD (chronic kidney disease) stage 4, GFR 15-29 ml/min ([facility]) Depression 2009 DIABETES TYPE I W RENAL MANIF-UNCONTRLLD 01/21/2005 Dialysis: MWFrancy Castro Diabetic nephropathy ([facility]) 02/22/2010 GLAUCOMA NOS 01/21/2005 Hyperlipidemia HYPERTENSION NOS 01/21/2005 Microcytic anemia NSTEMI (non-ST elevated myocardial infarction) ([facility]) Proteinuria 01/21/2005 PVD (peripheral vascular disease) ([facility]) Suicide attempt ([facility]) November 2009 Hosp [facility]> Previous Surgical History PAST SURGICAL HISTORY Procedure Laterality Date AMPUTATION (SPECIFY BODY PART) HX Right 12/2015 5 toes ARTHROSCOPY KNEE DIAGNOSTIC W/WO SYNOVIAL BX SPX 1987 Arthroscopy, knee CC PCI CORONARY INTERVENT 10/19/2018 proximal LAD F COLONOS W/REM POLYP SNARE 03/11/2022 PAST SURGICAL HISTORY OF Right 05/12/2018 Debridement of bone on plantar R foot PAST SURGICAL HISTORY OF Right 2017 Amputation Right Foot VASECTOMY UNI/BI SPX W/POSTOP SEMEN EXAMS 02/14/2007 Family History FAMILY HISTORY Problem Relation Age of Onset Diabetes Mother Ischemic Heart Disease Mother Alcohol/Drug Brother Hypertension Maternal Grandmother Ischemic Heart Disease Sister Patient Allergies ALLERGIES No Known Allergies Current Medications Current Outpatient Medications on File Prior to Visit Medication Sig atorvastatin (LIPITOR) 40 mg tablet Take 1 tablet by mouth daily at bedtime. For cholesterol. insulin detemir U-100 (LEVEMIR FLEXPEN) 100 unit/mL (3 mL) injection pen Inject 8 units in the am and inject 10 units in the pm Insulin Clio, Disposable, (PEN NEEDLE) 32 gauge x 5/32 Give with each insulin administration once in the am and once in the pm Blood-Glucose Sensor (DEXCOM G6 SENSOR) latesha 10 Each as directed. Apply a new Dexcom G 6 Sensor after 10 days of use. hydrALAZINE (APRESOLINE) 100 mg tablet TAKE 1 TABLET BY MOUTH THREE TIMES DAILY magnesium oxide (MAG-OX) 400 mg (241.3 mg magnesium) tablet Take 1 tablet by mouth twice daily. metoprolol tartrate, short acting, (LOPRESSOR) 25 mg tablet Take 1 tablet by mouth twice daily. UNIFINE PENTIPS 31 gauge x 3/16 Use twice daily as directed for insulin COMBIGAN 0.2-0.5 % ophthalmic solution Instill 1 drop in both eyes twice a day timoloL maleate (TIMOPTIC) 0.5 % ophthalmic solution Use 1 Drop in both eyes twice daily. losartan (COZAAR) 50 mg tablet Take 1 tablet by mouth once daily. aspirin 81 mg chewable tablet Take 1 tablet by mouth once daily. sildenafil (VIAGRA) 50 mg tablet Take 1 tablet by mouth as needed. Take one hour prior to sexual activity latanoprost (XALATAN) 0.005 % ophthalmic solution Use 1 Drop in both eyes daily at bedtime. NOVOFINE AUTOCOVER 30 gauge x 1/3 ndle Insulin Syringe-Needle U-100 (BD LO-DOSE MICRO-FINE IV) 0.3 mL 28 x 1/2 syrg Inject 1 Each subcutaneously daily at bedtime. Inject once daily (for Lantus) Dx: Diabetes Type I with renal manifestations . 254.43 glucagon, human recombinant, (GLUCAGON EMERGENCY) 1 mg injection 1 mg as needed. ADMINISTER FOR LOWBLOOD SUGAR - IF UNCONSCIOUS OR UNABLE TO SWALLOW Current Facility-Administered Medications on File Prior to Visit Medication perflutren lipid microspheres 1.3 mL in NaCl (PF) 0.9% 10 mL injection (DEFINITY) sodium chloride 0.9 % (flush) 10 mL (BD POSIFLUSH) Social History Social History Tobacco Use Smoking status: Never Smokeless tobacco: Never Vaping Use Vaping Use: Never used Substance Use Topics Alcohol use: No Drug use: No EXAM: BP 126/82 (BP Site: Right Arm, BP Position: Sitting, BP Cuff Size: Regular Adult) Pulse 72 Resp16 Wt 67.3 kg (148 lb 6.4 oz) BMI 18.55 kg/m General Appearance: Well appearing, alert, in no acute distress, well-hydrated, well nourished.. Lungs: Lungs clear to auscultation. No wheezing, rhonchi, rales.. Heart: RRR without murmur, gallop, or rubs. No ectopy. Health Maintenance List BP CONTROLLED (<130/80) Never done SHINGRIX VACCINE(1 of 2) Never done DTAP,TDAP,TD(1 - Tdap) due on 02/10/2014 DIABETIC FOOT EXAM due on 07/30/2019 LDL CHOLESTEROL due on 06/14/2022 SERUM CREATININE due on 06/14/2022 HEMOGLOBIN/HEMATOCRIT due on 06/14/2022 HBA1C due on 09/25/2022 INFLUENZA(1) due on 02/07/2023 DILATED RETINAL EXAM due on 03/14/2023 ANNUAL PCP TEAM CHRONIC DISEASE VISIT due on 06/25/2023 COLORECTAL CANCER SCREENING due on 03/11/2025 PNEUMOCOCCAL(4 - PPSV23 or PCV20) due on 2033 HEPATITIS B Completed HEPATITIS C SCREENING Completed HIV SCREENING Completed COVID-19 VACCINE Completed Data reviewed No new labs ASSESSMENT/PLAN: 1. 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 2. Essential hypertension - ICD9: 401.9, ICD10: I10 - Controlled - Continue current medications - Recommend home blood pressure monitoring, to bring results to next visit - Encouraged sodium restriction, DASH or Mediterranean diet - Recommend regular aerobic exercise 3. Hyperlipidemia, unspecified hyperlipidemia type - ICD9: 272.4, ICD10: E78.5 - Check labs fasting this week - Continue current medication regimen. 4. . Current mild episode of major depressive disorder without prior episode (HCC) - ICD9: 296.21, ICD10: F32.0 - Stable - Continue current medication regimen. 5. ESRD (end stage renal disease) (HCC) - ICD9: 585.6, ICD10: N18.6 - Cont f/u with nephrology - Continue current medication regimen. 6 mo f/u. Pt to complete fasting labs in the next week, will call with results. I agree with the Chief Complaint, ROS, and Past Histories independently gathered by the clinical donor support technician and the remaining scribed note accurately describes my personal service to the patient. Medical Decision Making: Problems: Moderate: 2+ stable chronic illnesses Data: Unique test(s) ordered: 3+ Risk: Moderate: Drug management Medical Decision Making Level: 4 - Moderate Ron Coroando MD The documentation for this note was completed by Teressa Blanco Ma acting as scribe for Ron Coronado MD. December 24, 2022 10:47 AM. Teressa Blanco Ma documented in this encounterGreene [facility]06-26-2023 History of Present illness Narrative* Deborha Chavez RN - 12/02/2022 1:06 PM EDT RADIOLOGY SERVICE PROGRESS NOTE SERVICE DATE: 12/02/2022 SERVICE TIME: 944 PATIENT IDENTITY VERIFICATION COMPLETED USING TWO (2) METHODS: Patient confirmed name and Date of verbally. ALLERGIES AND MEDICATIONS REVIEWED BY: Deborah Chavez RN PROCEDURE TYPE: NM STRESS: 0.4 mg of Lexiscan was administered IV at 1056 over 10 Seconds by Deborah Chavez RN Reversal agent used:N/A LOT [id number] EXP 02/07/26 IV SITE: IV palced by nuclear tecnologist POST EXAM PIV STATUS: Discontinued by Granulator PATIENT DISCHARGED TO: Nuclear Medicine Department for post stress imaging A Diagnostic radioactive procedure has taken place, with no further precautions necessary other than routine body substance precautions. More information regarding radiation safety can be found usingthis link: [email or web address] SIGNATURE: Deborah Chavez RN PATIENT NAME:Thom Chapin DATE: 12/02/22 TIME: 1:06 PM documented in this encounterGreene [facility] Hospital06-26-2023 History of Present illness Narrative* Amena Ahumada RT(R) - 12/02/2022 8:30 AM EDT RADIOLOGY SERVICE PROGRESS NOTE SERVICE DATE: 12/02/2022 SERVICE TIME: 09:30 AM PATIENT IDENTITY VERIFICATION COMPLETED USING TWO (2) STANDARD IDENTIFIERS: Name and Date of confirmed by patient verbally FALL SCREENING: Has the patient had 2 falls in the last year or 1 fall with injury or currently using an Ambulatory Assistive Device (Alejandro, Cane, Wheelchair, Crutches, etc.)? No PATIENT GENDER DATA: .male ALLERGIES: Reviewed and unchanged MEDICATIONS REVIEWED: No PATIENT RELEVANT IMPLANT DATA REVIEWED: Not Applicable CREATININE: Creatinine Date Value Ref Range Status 06/14/2021 7.17 (H) 0.73 - 1.22 mg/dL Final 08/19/2019 7.32 (H) 0.73 - 1.22 mg/dL Final 04/21/2018 7.00 (H) 0.73 - 1.22 mg/dL Final eGFR-All Other Races Date Value Ref Range Status 06/14/2021 8 . Final Comment: eGFR (Estimated GFR) Units of measure: mL/min/1.73 meters squared eGFR is derived from the reexpressed MDRD Study equation using the following parameters: serum creatinine, age, gender and race. The creatinine assay has been calibrated to be traceable to IDMS. An eGFR <60 mL/min/1.73m2 for >3 months is consistent with chronic kidney disease. Refer to KDOQI guidelines for clinical interpretation. In patients with unstable renal function, e.g. those with acute kidney injury, the eGFR may not accurately reflect actual GFR. Note: On 08/04/2021, the eGFR calculation will be updated to the NKF-ASN Task Force recommended 2020 CKD-EPI creatinine equation which does not include a race variable. For more information or to access a 2020 CKD-EPI calculator, visit the National Kidney [employer] website at kidney.org/professionals/kdoqi/gfr_calculator. eGFR- Date Value Ref Range Status 06/14/2021 10 Final P.O.C.T. RESULTS: N/A December 02, [address] PERFORMED: No IV SITE: Ambulatory: A peripheral IV was started in the Right hand with a Angio cath: 22 gauge. POST EXAM PIV STATUS: Discontinued PROCEDURE TYPE: NM Stress: 10.6 mCi [id number] was administered IV for Rest Imaging at 09:37 by Amena Ahumada. 31.6 mCi [id number] was administered IV for Stress Imaging at 10:53 by Amena Ahumada. ADMINISTRATION TIME: PATIENT DISCHARGED TO: Ambulatory patient, left [place] department area. A Diagnostic radioactive procedure has taken place, with no further precautions necessary other than routine body substance precautions. More information regarding radiation safety can be found usingthis link: [email or web address]%20Nuclear%20Medicine%[email or web address] SIGNATURE: RT Tomás(R) PATIENT NAME: Thom Chapin DATE: December 02, 2022 TIME: 11:16 AM PAGER/CONTACT #: documented in this encounterGreene [facility] Hospital06-23-2023 Miscellaneous Notes* Telephone Encounter - Deborah Chavez RN - 11/29/2022 10:51 AM EDT Called and reviewed instructions with the patient. Patient reports understanding. Deborah Chavez RN documented in this encounterGreene [facility] Hospital03-23-2023 Miscellaneous Notes* Telephone Encounter - Penny Candelario Ma - 08/29/2022 4:49 PM EDT Faxed. Penny Candelario Ma * Telephone Encounter - Ron Coronado MD - 08/29/2022 4:29 PM EDT Form done Ron Coronado MD * Telephone Encounter - Penny Candelario Ma - 08/29/2022 2:13 PM EDT Pt states he did request this form. Pt states he has a dexcon G 6. Office received fax from [facility] for pt diabetic supplies. Needs completed and faxed to [phone]. Penny Candelario Ma documented in this encounterGreene [facility] Hospital03-23-2023 Miscellaneous Notes* Telephone Encounter - Luann Salcedo [facility] [place] - 08/29/2022 8:55 AM EDT Patient has been identified by name and date of : Yes Requested Prescriptions Pending Prescriptions Disp Refills magnesium oxide (MAG-OX) 400 mg (241.3 mg magnesium) tablet 180 tablet 3 Sig: Take 1 tablet by mouth twice daily. RX INSTRUCTIONS: Patient aware RX will be sent to pharmacy. No need to notify patient. Luann Salcedo [facility] documented in this encounterGreene Memorial Hospital03-20-2023 History of Present illness Narrative* Ivet Tesfaye MD - 08/26/2022 3:20 PM EDT Images from the original note were not included. Ivet Tesfaye MD Interventional Cardiology [facility] [address], [place] [address] [phone] Chief Complaint Patient presents with: Consult HISTORY OF PRESENT ILLNESS: Mr. Chapin is a 51 year old male seen in my office today for assessment and management of his cardiac condition patient had longstanding history of diabetes mellitus chronic renal failure on dialysisfor the 9 years now with previous history of coronary artery disease non-ST segment elevation myocardial infarction and angioplasty Patient is doing well from the cardiac point of view he does complain of chest pain left side of his chest radiated to his arm. No signs or symptoms of congestive heart failure Cardiac Risk Factors age (male over 45, female over 55), hyperlipidemia, diabetes, hypertension, family history of CAD PAST MEDICAL HISTORY Diagnosis Date Cellulitis right foot CKD (chronic kidney disease) stage 4, GFR 15-29 ml/min ([facility]) 2009 DIABETES TYPE I W RENAL MANIF-UNCONTRLLD 01/21/2005 Dialysis: [facility] Diabetic nephropathy ([facility]) 02/22/2010 [facility] NOS 01/21/2005 Hyperlipidemia HYPERTENSION NOS 01/21/2005 Microcytic anemia NSTEMI (non-ST elevated myocardial infarction) ([facility]) Proteinuria 01/21/2005 PVD (peripheral vascular disease) ([facility]) Suicide attempt ([facility]) November 2009 Hosp [facility]> PAST SURGICAL HISTORY Procedure Laterality Date AMPUTATION (SPECIFY BODY PART) HX Right 12/2015 5 toes ARTHROSCOPY KNEE DIAGNOSTIC W/WO SYNOVIAL BX SPX 1987 Arthroscopy, knee CC PCI CORONARY INTERVENT 10/19/2018 proximal LAD F COLONOS W/REM POLYP SNARE 03/11/2022 PAST SURGICAL HISTORY OF Right 05/12/2018 Debridement of bone on plantar R foot PAST SURGICAL HISTORY OF Right 2017 Amputation Right Foot VASECTOMY UNI/BI SPX W/POSTOP SEMEN EXAMS 02/14/2007 FAMILY HISTORY Problem Relation Age of Onset Diabetes Mother Ischemic Heart Disease Mother Alcohol/Drug Brother Hypertension Maternal Grandmother Ischemic Heart Disease Sister Social History Tobacco Use Smoking status: Never Smokeless tobacco: Never Vaping Use Vaping Use: Never used Substance Use Topics Alcohol use: No Drug use: No ALLERGIES No Known Allergies Medications: Current Outpatient Medications Medication Sig Dispense Refill insulin detemir U-100 (LEVEMIR FLEXPEN) 100 unit/mL (3 mL) injection pen Inject 8 units in the am and inject 10 units in the pm 5 Each 11 Insulin Clio, Disposable, (PEN NEEDLE) 32 gauge x 5/32 Give with each insulin administration once in the am and once in the pm 100 Each 11 Blood-Glucose Sensor (DEXCOM G6 SENSOR) latesha 10 Each as directed. Apply a new Dexcom G 6 Sensor after 10 days of use. 10 Each 4 hydrALAZINE (APRESOLINE) 100 mg tablet TAKE 1 TABLET BY MOUTH THREE TIMES DAILY 90 tablet 11 magnesium oxide (MAG-OX) 400 mg (241.3 mg magnesium) tablet Take 1 tablet by mouth twice daily. 180tablet 3 metoprolol tartrate, short acting, (LOPRESSOR) 25 mg tablet Take 1 tablet by mouth twice daily. 180tablet 3 UNIFINE PENTIPS 31 gauge x 3/16 Use twice daily as directed for insulin 100 Each 11 COMBIGAN 0.2-0.5 % ophthalmic solution Instill 1 drop in both eyes twice a day atorvastatin (LIPITOR) 40 mg tablet Take 1 tablet by mouth daily at bedtime. For cholesterol. 90 tablet 3 timoloL maleate (TIMOPTIC) 0.5 % ophthalmic solution Use 1 Drop in both eyes twice daily. 1 Bottle 11 losartan (COZAAR) 50 mg tablet Take 1 tablet by mouth once daily. 30 tablet 11 aspirin 81 mg chewable tablet Take 1 tablet by mouth once daily. sildenafil (VIAGRA) 50 mg tablet Take 1 tablet by mouth as needed. Take one hour prior to sexual activity 6 tablet 5 latanoprost (XALATAN) 0.005 % ophthalmic solution Use 1 Drop in both eyes daily at bedtime. NOVOFINE AUTOCOVER 30 gauge x 1/3 ndle Insulin Syringe-Needle U-100 (BD LO-DOSE MICRO-FINE IV) 0.3 mL 28 x 1/2 syrg Inject 1 Each subcutaneously daily at bedtime. Inject once daily (for Lantus) Dx: Diabetes Type I with renal manifestations . 254.43 100 Syringe 3 glucagon, human recombinant, (GLUCAGON EMERGENCY) 1 mg injection 1 mg as needed. ADMINISTER FOR LOWBLOOD SUGAR - IF UNCONSCIOUS OR UNABLE TO SWALLOW 3 Each 3 Current Facility-Administered Medications Medication Dose Route Frequency Provider Last Rate Last Admin perflutren lipid microspheres 1.3 mL in NaCl (PF) 0.9% 10 mL injection (DEFINITY) INTRAVENOUS DIRECTED PRTulio Tesfaye MD sodium chloride 0.9 % (flush) 10 mL (BD POSIFLUSH) 10 mL INTRAVENOUS DIRECTED PRN Ivet Tesfaye MD Review of Systems Constitutional: Negative for chills, diaphoresis, fever, malaise/fatigue and weight loss. HENT: Negative for congestion, ear discharge, ear pain, hearing loss, nosebleeds, sinus pain, sore throat and tinnitus. Eyes: Negative for blurred vision, double vision, photophobia, pain, discharge and redness. Respiratory: Negative for cough, hemoptysis, sputum production, shortness of breath, wheezing and stridor. Cardiovascular: Positive for chest pain. Negative for palpitations, orthopnea, claudication, leg swelling and PND. Gastrointestinal: Negative for abdominal pain, blood in stool, constipation, diarrhea, heartburn, melena, nausea and vomiting. Genitourinary: Negative for dysuria, flank pain, frequency, hematuria and urgency. Musculoskeletal: Negative for back pain, falls, joint pain, myalgias and neck pain. Skin: Negative for itching and rash. Neurological: Negative for dizziness, tingling, tremors, sensory change, speech change, focal weakness, seizures, loss of consciousness, weakness and headaches. Endo/Heme/Allergies: Negative for environmental allergies and polydipsia. Does not bruise/bleed easily. Psychiatric/Behavioral: Negative for depression, hallucinations, memory loss, substance abuse and suicidal ideas. The patient is not nervous/anxious and does not have insomnia. Physical Examination: Vitals:BP 150/88 Pulse 79 Wt 145 lb (65.8kg) SpO2 100% BP w/Orthostatic Vitals Date and Time Orthostatic BP Orthostatic Pulse BP Pulse BP Position BP Site BP Cuff Size 08/26/22 1501 -- -- 150/88 79 Sitting Right Arm Regular Adult Last 2 Encounter Wt Readings: Date: Wt: 08/26/2022 65.8 kg (145 lb) 06/25/2022 66.2 kg (146 lb) Physical Exam Constitutional: General: He is not in acute distress. Appearance: He is not diaphoretic. HENT: Head: Normocephalic and atraumatic. Right Ear: External ear normal. Left Ear: External ear normal. Nose: Nose normal. Mouth/Throat: Pharynx: Oropharynx is clear. Eyes: General: Right eye: No discharge. Left eye: No discharge. Conjunctiva/sclera: Conjunctivae normal. Pupils: Pupils are equal, round, and reactive to light. Cardiovascular: Rate and Rhythm: Normal rate and regular rhythm. Heart sounds: Normal heart sounds, S1 normal and S2 normal. No murmur heard. No friction rub. No gallop. No S3 or S4 sounds. Pulmonary: Effort: Pulmonary effort is normal. No respiratory distress. Breath sounds: Normal breath sounds. No wheezing or rales. Chest: Chest wall: No tenderness. Musculoskeletal: General: Normal range of motion. Cervical back: Normal range of motion and neck supple. Skin: General: Skin is warm and dry. Neurological: Mental Status: He is alert and oriented to person, place, and time. Psychiatric: Mood and Affect: Mood normal. Thought Content: Thought content normal. Judgment: Judgment normal. Pertinent Labs: CBC: Hemoglobin (g/dL) Date Value 06/14/2021 11.0 Hematocrit (%) Date Value 06/14/2021 36.6 WBC (k/uL) Date Value 06/14/2021 3.35 Platelet Count (k/uL) Date Value 06/14/2021 80 BMP: Glucose (mg/dL) Date Value 06/14/2021 101 Potassium (mmol/L) Date Value 06/14/2021 4.2 Sodium (mmol/L) Date Value 06/14/2021 141 Chloride (mmol/L) Date Value 06/14/2021 99 CO2 (mmol/L) Date Value 06/14/2021 30 Creatinine (mg/dL) Date Value 06/14/2021 7.17 BUN (mg/dL) Date Value 06/14/2021 41 Anion Gap (mmol/L) Date Value 06/14/2021 12 Calcium (mg/dL) Date Value 06/14/2021 8.8 INR: Lipid Profile: Cholesterol, Total Date Value Ref Range Status 06/14/2021 131 <200 mg/dL Final Comment: <200 mg/dL, Desirable 200-239 mg/dL, Borderline high >239 mg/dL, High HDL Cholesterol Date Value Ref Range Status 06/14/2021 52 >39 mg/dL Final Comment: 40-59 mg/dL, Acceptable >59 mg/dL, High: Negative risk factor for coronary heart disease <40 mg/dL, Low: Positive risk factor for coronary heart disease LDL Cholesterol Date Value Ref Range Status 06/14/2021 65 <100 mg/dL Final Comment: <100 mg/dL, Optimal 100-129 mg/dL, Near optimal/above optimal 130-159 mg/dL, Borderline high 160-189 mg/dL, High >189 mg/dL, Very high Secondary prevention optimal LDL Cholesterol levels are recommended to be < 70 mg/dL Triglyceride Date Value Ref Range Status 06/14/2021 70 <150 mg/dL Final Comment: <150 mg/dL, Normal 150-199 mg/dL, Borderline high 200-499 mg/dL, High >499 mg/dL, Very high Hemoglobin A1C: No results found for: HGBA1C TSH: No results found for: TSHREFL Prior Cardiac Testing NONE Assessment and Plan: 51 years old gentleman with prior history of coronary artery disease and angioplasty to establish care with Coronary artery disease and angioplasty Patient on appropriate medical therapy he needs risk stratification and assessment by echocardiography and a treadmill nuclear stress test. 2. Hypertensive heart disease Controlled well on current medical treatment 3. Renal failure On hemodialysis 3 times a week Follow up plannin MONTHS Electronically signed by Ivet Tesfaye MD on August 26, 2022, 3:20 PM The above note was partially created using a dictation recognition software. A reasonable attempt has been made to correct any errors. documented in this encounterGreene [facility] Hospital01-17-2023 History of Present illness Narrative* Ron Coronado MD - 06/25/2022 10:40 AM EST Chief Complaint Patient presents with: F/U 6 Month HPI Thom Chapin is a 51 year old male who presents here today for a 6 month follow up. Pt here today for his routine follow up. Stays busy with the grandkids ages 4, 2 and 9 months. Seesthem almost daily. GI/Uro - Denies any stomach, bowel or urinary issues. Had Colonoscopy on 03/11/22 at [facility]. Denies anyurinary issues. Prn use of Sildenafil for ED. DM - Referred to Endo and had appt on 03/27/22. Now has the Dexcom to check sugars. Notes occasional low blood sugars, had one last month that was 49. Denies any neuropathy symptoms. Follows with for routine DM foot care. Has an appt next month on 07/18/22. On current regimen of Levemir 8units in the am and 10 units pm; adjusts as needed based on blood sugar level. HTN - Checks BP at home, readings normal. Denies any chest pain, sob or dizziness. Pt notes occasional left side chest pain, axillary area that is intermittent. Denies anything bringing this on, but wonders if its due to sleeping on it, due to waking up with it yesterday hurting him. Feels this is g etting worse. Pain described as dull, rates it a 6/10. On current regimen of Lopressor 25 mg bid, Mag-Ox 400 mg 1 tab po bid, Hydralazine 100 mg TID and Losartan 50 mg daily. Was referred to Cardio due to hx of NSTEMI with stent placement 3-4 years ago. Was taking Plavix 75 mg in the past, but not anymore, takes Aspirin 81 mg daily. Lipids - Rides electric bike, stays active and tries to watch his diet. On current regimen of Lipitor 40 mg once daily. Depression/TEMO - Overall stable. Takes Hydralazine 100 mg TID. CKD - Has dialysis every Friday, Friday and Friday. Follows with Dr. Wells every 6 months. On current regimen of Renvella 800 mg TID. Past medical history, appointments, medications, allergies reviewed. Previous Medical History PAST MEDICAL HISTORY Diagnosis Date Cellulitis right foot CKD (chronic kidney disease) stage 4, GFR 15-29 ml/min ([facility]) Depression 2009 DIABETES TYPE I W RENAL MANIF-UNCONTRLLD 01/21/2005 Dialysis: ASIA Castro Diabetic nephropathy ([facility]) 02/22/2010 [facility] NOS 01/21/2005 Hyperlipidemia HYPERTENSION NOS 01/21/2005 Microcytic anemia NSTEMI (non-ST elevated myocardial infarction) ([facility]) Proteinuria 01/21/2005 PVD (peripheral vascular disease) ([facility]) Suicide attempt ([facility]) November 2009 [facility]osp [facility]> Previous Surgical History PAST SURGICAL HISTORY Procedure Laterality Date AMPUTATION (SPECIFY BODY PART) HX Right 12/2015 5 toes ARTHROSCOPY KNEE DIAGNOSTIC W/WO SYNOVIAL BX SPX 1987 Arthroscopy, knee CC PCI CORONARY INTERVENT 10/19/2018 proximal LAD F COLONOS W/REM POLYP SNARE 03/11/2022 PAST SURGICAL HISTORY OF Right 05/12/2018 Debridement of bone on plantar R foot PAST SURGICAL HISTORY OF Right 2017 Amputation Right Foot VASECTOMY UNI/BI SPX W/POSTOP SEMEN EXAMS 02/14/2007 Family History FAMILY HISTORY Problem Relation Age of Onset Diabetes Mother Ischemic Heart Disease Mother Alcohol/Drug Brother Hypertension Maternal Grandmother Ischemic Heart Disease Sister Patient Allergies ALLERGIES No Known Allergies Current Medications Current Outpatient Medications on File Prior to Visit Medication Sig hydrALAZINE (APRESOLINE) 100 mg tablet TAKE 1 TABLET BY MOUTH THREE TIMES DAILY magnesium oxide (MAG-OX) 400 mg (241.3 mg magnesium) tablet Take 1 tablet by mouth twice daily. metoprolol tartrate, short acting, (LOPRESSOR) 25 mg tablet Take 1 tablet by mouth twice daily. sevelamer carbonate (RENVELA) 800 mg tablet Take 1 tablet by mouth three times daily. UNIFINE PENTIPS 31 gauge x 3/16 Use twice daily as directed for insulin insulin detemir U-100 (LEVEMIR FLEXTOUCH U-100 INSULIN) 100 unit/mL (3 mL) injection pen 8 units inthe am and 10 units in the pm COMBIGAN 0.2-0.5 % ophthalmic solution Instill 1 drop in both eyes twice a day atorvastatin (LIPITOR) 40 mg tablet Take 1 tablet by mouth daily at bedtime. For cholesterol. flash glucose scanning reader (FREESTYLE HARPER 2 READER) Use as directed to monitor blood sugar flash glucose sensor (FREESTYLE HARPER 2 SENSOR) kit Use as directed to monitor blood glucose blood sugar diagnostic (TRUETEST TEST STRIPS) test strip test three times daily - dx 250.00 - insulin depentant timoloL maleate (TIMOPTIC) 0.5 % ophthalmic solution Use 1 Drop in both eyes twice daily. losartan (COZAAR) 50 mg tablet Take 1 tablet by mouth once daily. clopidogrel (PLAVIX) 75 mg tablet Take 1 tablet by mouth once daily. aspirin 81 mg chewable tablet Take 1 tablet by mouth once daily. sildenafil (VIAGRA) 50 mg tablet Take 1 tablet by mouth as needed. Take one hour prior to sexual activity latanoprost (XALATAN) 0.005 % ophthalmic solution Use 1 Drop in both eyes daily at bedtime. TRUE METRIX GLUCOSE METER [facility] NOVOFINE AUTOCOVER 30 gauge x 1/3 ndle Insulin Syringe-Needle U-100 (BD LO-DOSE MICRO-FINE IV) 0.3 mL 28 x 1/2 syrg Inject 1 Each subcutaneously daily at bedtime. Inject once daily (for Lantus) Dx: Diabetes Type I with renal manifestations . 254.43 glucagon, human recombinant, (GLUCAGON EMERGENCY) 1 mg injection 1 mg as needed. ADMINISTER FOR LOWBLOOD SUGAR - IF UNCONSCIOUS OR UNABLE TO SWALLOW No current facility-administered medications on file prior to visit. Social History Social History Tobacco Use Smoking status: Never Smokeless tobacco: Never Vaping Use Vaping Use: Never used Substance Use Topics Alcohol use: No Drug use: No EXAM: BP 136/84 (BP Site: Right Arm, BP Position: Sitting, BP Cuff Size: Regular Adult) Pulse 72 Resp16 Wt 66.2 kg (146 lb) BMI 18.25 kg/m General Appearance: Well appearing, alert, in no acute distress, well-hydrated, well nourished.. Lungs: Lungs clear to auscultation. No wheezing, rhonchi, rales.. Heart: RRR without murmur, gallop, or rubs. No ectopy. Musculoskeletal: Left sided chest pain, musculoskeletal pain. Health Maintenance List HEPATITIS B(1 of 3 - 3-dose series) Never done BP CONTROLLED (<130/80) Never done SHINGRIX VACCINE(1 of 2) Never done DTAP,TDAP,TD(1 - Tdap) due on 08/11/2008 COLORECTAL CANCER SCREENING Never done DIABETIC FOOT EXAM due on 07/30/2019 COVID-19 VACCINE(4 - Booster for Moderna series) due on 06/08/2021 PNEUMOCOCCAL(3 - PCV) due on 10/12/2021 SERUM CREATININE due on 06/14/2022 HEMOGLOBIN/HEMATOCRIT due on 06/14/2022 LDL CHOLESTEROL due on 06/14/2022 HBA1C due on 09/25/2022 ANNUAL PCP TEAM CHRONIC DISEASE VISIT due on 12/20/2022 DILATED RETINAL EXAM due on 03/14/2023 INFLUENZA Completed HEPATITIS C SCREENING Completed HIV SCREENING Completed Data reviewed No visits with results within 2 Month(s) from this visit. Latest known visit with results is: Office Visit on 03/27/2022 Component Date Value Hemoglobin A1C (POCT) 03/27/2022 6.6 (A) ASSESSMENT/PLAN: 1. 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 - Continue current medication regimen. 2. Essential hypertension - ICD9: 401.9, ICD10: I10 - good control - Continue current medication(s) - Recommended regular aerobic exercise. - Recommend home blood pressure monitoring, to bring results in on next visit - Goal of BP <130/80 3. Hyperlipidemia, unspecified hyperlipidemia type - ICD9: 272.4, ICD10: E78.5 - Need to check labs 4. NSTEMI (non-ST elevated myocardial infarction) ([facility]) - ICD9: 410.70, ICD10: I21.4 - Continue current medication regimen. - Cardio consult placed at previous OV, scheduled 08/26/22. 5. Current mild episode of major depressive disorder without prior episode ([facility]) - ICD9: 296.21, ICD10: F32.0 - Stable - Continue current medication regimen. 6. ESRD (end stage renal disease) (HCC) - ICD9: 585.6, ICD10: N18.6 - Cont f/u with Dialysis and Nephrology - Continue current medication regimen. 6 mo f/u with labs. I agree with the Chief Complaint, ROS, and Past Histories independently gathered by the clinical donor support technician and the remaining scribed note accurately describes my personal service to the patient. Medical Decision Making: Problems: Moderate: 2+ stable chronic illnesses Data: Unique test(s) ordered: 2 Risk: Moderate: Drug management Medical Decision Making Level: 4 - Moderate Ron Coronado MD The documentation for this note was completed by Teressa Blanco Ma acting as scribe for Ron Coronado MD. June 25, 2022 10:45 AM. Teressa Blanco Ma documented in this encounterGreene [facility] Hospital01-13-2023 Miscellaneous Notes* Telephone Encounter - Teressa Balnco Ma - 06/21/2022 2:54 PM EST This has been faxed to number below. Teressa Blanco Ma * Telephone Encounter - Ron Coronado MD - 06/21/2022 2:46 PM EST Form done Ron Coronado MD * Telephone Encounter - Teressa Blanco Ma - 06/20/2022 12:27 PM EST Printed OV with Endo from 03/27/22. Routed to PCP to sign, will then fax paperwork to information below. Teressa Blanco Ma * Telephone Encounter - Luma Bey Ma - 06/20/2022 11:46 AM EST Medicare does there own PA but has to be through [employer] company Called and spoke to patient who advised went online an filled out request for CGM through [facility] [employer]. Please print office note with 03/27 and rx and fax below Luma Bey Ma * Telephone Encounter - Sunshine Sheridan LPN - 06/20/2022 10:19 AM EST Pt called and was notified by his pharmacy that a PA is required for DEXCOM G6 Sensor device PRIOR AUTHORIZATION Medication for Prior Authorization: Dexcom G6 Sensor device Other formulary meds available : NO Insurance Company: [employer] /Medicare Insurance Company phone number: no phone Patient insurance ID number: [id number] Sunshine Sheridan LPN documented in this encounterGreene [facility] Hospital12-27-2022 Miscellaneous Notes* Telephone Encounter - Ron Coronado MD - 06/04/2022 1:49 PM EST Done in other note Ron Coronado MD documented in this encounterGreene Memorial Hospital12-27-2022 Miscellaneous Notes* Telephone Encounter - Ron Coronado MD - 06/04/2022 10:35 AM EST OK to refill as ordered Ron Coronado MD * Telephone Encounter - Mary Castro LPN - 06/04/2022 7:28 AM EST Patient phones requesting refills as follows: Requested Prescriptions Pending Prescriptions Disp Refills hydrALAZINE (APRESOLINE) 100 mg tablet [Pharmacy Med Name: HYDRALazine 100MG TABLET 100 Tablet] 90 tablet 10 Sig: TAKE 1 TABLET BY MOUTH THREE TIMES DAILY BECK-12/20/21 Labs-06/14/21 NOV-none med filled 05/31/21 Please review and advise. Mary Castro LPN documented in this encounterGreene Memorial Hospital12-13-2022 Miscellaneous Notes* Telephone Encounter - Montez Toscano APRN.[employer] EMISSIONS INSPECTOR - 05/21/2022 3:26 PM EST The following approved medication requests have been transmitted electronically. Requested Prescriptions Pending Prescriptions Disp Refills magnesium oxide (MAG-OX) 400 mg (241.3 mg magnesium) tablet 180 tablet 3 Sig: Take 1 tablet by mouth twice daily. Montez Toscano APRN.CNP * Telephone Encounter - Ophelia Lunsford - 05/21/2022 3:13 PM EST Patient has been identified by name and date of : Yes Requested Prescriptions Pending Prescriptions Disp Refills magnesium oxide (MAG-OX) 400 mg (241.3 mg magnesium) tablet 180 tablet 3 Sig: Take 1 tablet by mouth twice daily. RX INSTRUCTIONS: Patient aware RX will be sent to pharmacy. No need to notify patient. Ophelia Lunsford documented in this encounterGreene Memorial Hospital10-11-2022 Miscellaneous Notes* Telephone Encounter - Montez Toscano APRN.CNP - 03/19/2022 9:36 AM EDT The following approved medication requests have been transmitted electronically. Requested Prescriptions Pending Prescriptions Disp Refills UNIFINE PENTIPS 31 gauge x 3/16 [Pharmacy Med Name: Unifine Pentips 31 gauge x 3/16 needle] 100 Each 11 Sig: Use twice daily as directed for insulin Montez Toscano APRN.CNP * Telephone Encounter - Penny Candelario Ma - 03/19/2022 9:12 AM EDT Last office visit: 12/20/21 F/u scheduled: 06/25/22 Penny Candelario Ma documented in this encounterGreene Memorial Hospital09-12-2022 Miscellaneous Notes* Telephone Encounter - Pamella Rojas RN - 02/18/2022 10:36 AM EDT Courtney with [employer] is calling about the Dexcom. She reports it has been approved for 6 months, but she is waiting on the Pt to fill out the assignment of benefits for that she e-mailed ([email or web address]) to him 4 times. With the e-mail he provided. She states she talked to him a couple times, but now she can't get a hold of him and she's left messages. She reports she can't send it to the Pt is he doesn't follow through on his part. Called Pt and he answered, he reports his phone has been messing up and he hasn't been receiving his e- mails. Gave him the phone number for Courtney and he said he was going to call her. documented in this encounterGreene Memorial Hospital08-26-2022 Miscellaneous Notes* Telephone Encounter - Penny Candelario Ma - 02/01/2022 8:41 AM EDT Faxed, Penny Candelario Ma * Telephone Encounter - Penny Candelario Ma - 01/31/2022 4:32 PM EDT Office received fax from [facility] that needs completed and faxed back. Recent OV attached per request. Penny Candelario Ma documented in this encounterGreene Memorial Hospital08-24-2022 Miscellaneous Notes* Telephone Encounter - Penny Candelario Ma - 01/30/2022 8:29 AM EDT Forms faxed. Penny Candelario Ma * Telephone Encounter - Ron Coronado MD - 01/29/2022 5:14 PM EDT Form done Ron Coronado MD * Telephone Encounter - Teressa Blanco Ma - 01/28/2022 9:46 AM EDT Received 2nd request. Please review paperwork and complete to be faxed back. Teressa Blanco Ma * Telephone Encounter - Teressa Blanco Ma - 01/23/2022 1:04 PM EDT Office received fax from [employer] for CMN for pt's Dexcom G6. Requesting most recentOV notes and A1c attached to signed CMN. Printed requested documents. Routed to PCP to complete. Once complete fax to [phone]. Teressa Blanco Ma documented in this encounterGreene Memorial Hospital08-23-2022 Miscellaneous Notes* Telephone Encounter - Penny Candelario Ma - 01/29/2022 9:44 AM EDT Pt notified. Penny Candelraio Ma * Telephone Encounter - Ron Coronado MD - 01/29/2022 9:05 AM EDT OK to refill as ordered Ron Coronado MD * Telephone Encounter - Penny Candelario Ma - 01/29/2022 9:01 AM EDT This was entered as a med update. Please send rx to [facility]. Notify pt once done. Penny Candelario Ma * Telephone Encounter - Eleonora Bonilla - 01/29/2022 8:57 AM EDT Patient has been identified by name and date of : Yes Requested Prescriptions Pending Prescriptions Disp Refills insulin detemir U-100 (LEVEMIR FLEXTOUCH U-100 INSULIN) 100 unit/mL (3 mL) injection pen 5 Each 11 Si units in the am and 10 units in the pm RX INSTRUCTIONS: Patient requesting a call when RX is approved and sent to the pharmacy. Please call patient at: [phone] Eleonora Bonilla documented in this encounterGreene Memorial Hospital07-25-2022 Nurse Note* Gilma Cruz - 12/31/2021 9:37 AM EDT REVIEW OF SYSTEMS: General: The patient denies fatigue, denies weight loss, denies weight gain, denies feeling hot, and denies feelings of cold. Eyes: The patient NOTES glaucoma, denies eye injury/surgery, does not wear glasses or contacts. Ear/Nose/Throat: The patient denies allergies, denies hayfever, denies ear infections, and denies bloody noses. Cardiovascular: The patient denies chest pain, denies heart disease, NOTES high blood pressure,denies cardiac stent, denies prior heart attack, denies irregular heart beat, denies high cholesterol, denies poor circulation, denies heart failure, other cardiac issues, denies claudication, denies coldfeet, denies peripheral arterial stent. Respiratory: The patient denies tuberculosis, denies pneumonia, denies frequent cough, denies pulmonary embolism, denies shortness of breath, and denies coughing up blood. Gastrointestinal: The patient denies difficulty swallowing, denies acid reflux, denies ulcers, denies vomiting, denies jaundice/hepatitis, denies gallbladder problems, denies black or tarry stools, denies hemorrhoids, denies bleeding from rectum, denies diverticulitis, denies constipation, denies diarrhea, denies loss of stool control, and denies hernias. Kidney/Bladder: The patient denies kidney stones,NOTES Kidney Failure, Kidney Disease denies urine infections, and denies bloody urine. Skin: The patient denies a history of skin cancer, denies bleeding/changing moles, and denies a history of skin rash. Neurologic: The patient denies a history of epilepsy/convulsions, denies headaches, denies head/spinal injuries, and denies stroke/TIA. Psychiatric: The patient denies psychiatric medications, denies depression, and denies voices, denies substance abuse. Endocrine: The patient denies thyroid disorders, NOTES diabetes, and denies hormonal problems. Hematologic: The patient denies a history of bruising, denies bleeding, and denies anemia, denies blood clots. Infections: The patient denies a history of measles and mumps, denies rheumatic fever, and denies sexually transmitted diseases. Musculoskeletal: The patient denies back pain/injury, denies back problems, denies sciatica, NOTES knee/foot trouble,Right Foot Amputated. denies arthritis, or denies gout. When was patient's last Mammogram screening? N/A Last Colonoscopy: None Gilma Cruz documented in this encounterGreene Memorial Hospital07-25-2022 History of Present illness Narrative* Pamella Hernandez PA-C - 12/31/2021 9:35 AM EDT HISTORY AND PHYSICAL Thom Chapin 1970 REFERRING PHYSICIAN: Ron Coronado MD CHIEF COMPLAINT: No chief complaint on file. HPI: The patient is a 51 year old male referred for endoscopy. Thom notes no colon complaints. Patient denies any change in bowel habits, weight changes, blood in stools, black tarry stools or abdominal pain. Denies family history of colon issues. The patient notes no upper GI complaints. Thom has not undergone prior endoscopy. Patient's past medical history is significant for end-stage renal disease on dialysis, type I diabetes, hypertension, hyperlipidemia, NSTEMI and stent placement 7 years ago. Patient follows with Dr. Coronado in primary care for his chronic medical conditions. He has upcoming appointment scheduledto get established with [facility] cardiology for routine cardiac follow-up. Patient denies chest pain, shortness of breath or recent hospitalizations. Did have ED visit in September 2021 in relation to his kidney issues. Denies problems with sedation in the past. Patient has requested to have procedure completed at [facility]. PAST MEDICAL HISTORY Diagnosis Date Cellulitis right foot CKD (chronic kidney disease) stage 4, GFR 15-29 ml/min ([facility]) 2009 DIABETES TYPE I W RENAL MANIF-UNCONTRLLD 01/21/2005 Dialysis: [facility] Yusufonur Diabetic nephropathy ([facility]) 02/22/2010 GLAUCOMA NOS 01/21/2005 Hyperlipidemia HYPERTENSION NOS 01/21/2005 Microcytic anemia NSTEMI (non-ST elevated myocardial infarction) ([facility]) Proteinuria 01/21/2005 PVD (peripheral vascular disease) ([facility]) Suicide attempt ([facility]) November 2009 Hosp [facility]> PAST SURGICAL HISTORY Procedure Laterality Date 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 ARTHROSCOPY KNEE DIAGNOSTIC W/WO SYNOVIAL BX SPX 1987 Arthroscopy, knee CC PCI CORONARY INTERVENT 10/19/2018 proximal LAD PAST SURGICAL HISTORY OF Right 05/12/2018 Debridement of bone on plantar R foot VASECTOMY UNI/BI SPX W/POSTOP SEMEN EXAMS 02/14/07 Current Outpatient Medications Medication Sig insulin detemir U-100 (LEVEMIR FLEXTOUCH U-100 INSULIN) 100 unit/mL (3 mL) injection pen 8 units inthe am and 10 units in the pm COMBIGAN 0.2-0.5 % ophthalmic solution Instill 1 drop in both eyes twice a day atorvastatin (LIPITOR) 40 mg tablet Take 1 tablet by mouth daily at bedtime. For cholesterol. magnesium oxide (MAG-OX) 400 mg (241.3 mg magnesium) tablet Take 1 tablet by mouth twice daily. hydrALAZINE (APRESOLINE) 100 mg tablet Take 1 tablet by mouth three times daily. UNIFINE PENTIPS 31 gauge x 3/16 Use twice daily as directed for insulin flash glucose scanning reader (FREESTYLE HARPER 2 READER) Use as directed to monitor blood sugar flash glucose sensor (FREESTYLE HARPER 2 SENSOR) kit Use as directed to monitor blood glucose metoprolol tartrate, short acting, (LOPRESSOR) 25 mg tablet Take 1 tablet by mouth twice daily. blood sugar diagnostic (TRUETEST TEST STRIPS) test strip test three times daily - dx 250.00 - insulin depentant timoloL maleate (TIMOPTIC) 0.5 % ophthalmic solution Use 1 Drop in both eyes twice daily. losartan (COZAAR) 50 mg tablet Take 1 tablet by mouth once daily. clopidogrel (PLAVIX) 75 mg tablet Take 1 tablet by mouth once daily. aspirin 81 mg chewable tablet Take 1 tablet by mouth once daily. sildenafil (VIAGRA) 50 mg tablet Take 1 tablet by mouth as needed. Take one hour prior to sexual activity latanoprost (XALATAN) 0.005 % ophthalmic solution Use 1 Drop in both eyes daily at bedtime. sevelamer carbonate (RENVELA) 800 mg tablet Take 1 mg by mouth three times daily. TRUE METRIX GLUCOSE METER [facility] NOVOFINE AUTOCOVER 30 gauge x 1/3 ndle Insulin Syringe-Needle U-100 (BD LO-DOSE MICRO-FINE IV) 0.3 mL 28 x 1/2 syrg Inject 1 Each subcutaneously daily at bedtime. Inject once daily (for Lantus) Dx: Diabetes Type I with renal manifestations . 254.43 glucagon, human recombinant, (GLUCAGON EMERGENCY) 1 mg injection 1 mg as needed. ADMINISTER FOR LOWBLOOD SUGAR - IF UNCONSCIOUS OR UNABLE TO SWALLOW No current facility-administered medications for this visit. ALLERGIES: Patient has no known allergies. PERSONAL HISTORY: Social History Tobacco Use Smoking status: Never Smoker Smokeless tobacco: Never Used Vaping Use Vaping Use: Never used Substance Use Topics Alcohol use: No Drug use: No FAMILY HISTORY: FAMILY HISTORY Problem Relation Age of Onset Diabetes Mother Ischemic Heart Disease Mother Alcohol/Drug Brother Hypertension Maternal Grandmother Ischemic Heart Disease Sister REVIEW OF SYMPTOMS: The review of systems data was entered by the nurse and reviewed by nc Nursing Notes: Gilma Cruz 12/31/2021 9:41 AM Signed REVIEW OF SYSTEMS: General: The patient denies fatigue, denies weight loss, denies weight gain, denies feeling hot, and denies feelings of cold. Eyes: The patient NOTES glaucoma, denies eye injury/surgery, does not wear glasses or contacts. Ear/Nose/Throat: The patient denies allergies, denies hayfever, denies ear infections, and denies bloody noses. Cardiovascular: The patient denies chest pain, denies heart disease, NOTES high blood pressure,denies cardiac stent, denies prior heart attack, denies irregular heart beat, denies high cholesterol, denies poor circulation, denies heart failure, other cardiac issues, denies claudication, denies coldfeet, denies peripheral arterial stent. Respiratory: The patient denies tuberculosis, denies pneumonia, denies frequent cough, denies pulmonary embolism, denies shortness of breath, and denies coughing up blood. Gastrointestinal: The patient denies difficulty swallowing, denies acid reflux, denies ulcers, denies vomiting, denies jaundice/hepatitis, denies gallbladder problems, denies black or tarry stools, denies hemorrhoids, denies bleeding from rectum, denies diverticulitis, denies constipation, denies diarrhea, denies loss of stool control, and denies hernias. Kidney/Bladder: The patient denies kidney stones,NOTES Kidney Failure, Kidney Disease denies urine infections, and denies bloody urine. Skin: The patient denies a history of skin cancer, denies bleeding/changing moles, and denies a history of skin rash. Neurologic: The patient denies a history of epilepsy/convulsions, denies headaches, denies head/spinal injuries, and denies stroke/TIA. Psychiatric: The patient denies psychiatric medications, denies depression, and denies voices, denies substance abuse. Endocrine: The patient denies thyroid disorders, NOTES diabetes, and denies hormonal problems. Hematologic: The patient denies a history of bruising, denies bleeding, and denies anemia, denies blood clots. Infections: The patient denies a history of measles and mumps, denies rheumatic fever, and denies sexually transmitted diseases. Musculoskeletal: The patient denies back pain/injury, denies back problems, denies sciatica, NOTES knee/foot trouble,Right Foot Amputated. denies arthritis, or denies gout. When was patient's last Mammogram screening? N/A Last Colonoscopy: None Gilma Cruz I have confirmed and edited as necessary, the PFSH and ROS obtained by others. Pamella Hernandez PA-C PHYSICAL EXAMINATION: General: The patient is 51 year old male, well nourished, well hydrated in no acute distress. The patient is oriented to time, place, and person. VITALS: Blood pressure 126/75, pulse 74, temperature 36.2 C (97.2 F), height 190.5 cm (6' 3), weight 68.9 kg (152 lb), SpO2 97 %. There is no height or weight on file to calculate BMI. HEENT: Normal cephalic, ataumatic, pupils are equally round, sclera are anicteric, mucous membranesare moist, oropharynx is clear. Neck has no masses, asymmetry or lymphadenopathy. Respiratory: Clear to auscultation and percussion. Normal respiratory excursion and pattern. Cardiac: Examination is regular rate and rhythm. Normal S1/S2 Abdominal exam: Soft, nontender, with no palpable masses. No hepatosplenomegaly. No palpable hernias. Extremities: no clubbing, cyanosis or edema. No adenopathy. LABORATORY VALUES: As Noted RADIOLOGIC STUDIES: As Noted Assessment IMPRESSION: encounter for screening colonoscopy PLAN: I have reviewed my findings with the surgeon. Will plan for lower endoscopy. We discussed therisks and benefits of the planned endoscopy. I have informed the patient that complications can occur including failure to complete the endoscopy and perforation. The patient had the opportunity to ask questions concerning the planned endoscopy. My staff has also explained the procedure to the patient in understandable terms and has given the patient printed material concerning the procedure. Thepatient freely consents to surgery. I plan to use Golytely bowel preparation Patient instructed to contact PCP for instructions regarding diabetic medication, which may requireadjustment during bowel preparation and/or day of procedure The patient has medical comorbidities for which we will plan for the procedure to be performed under [facility]. Diagnoses: (Z12.11) Encounter for screening for malignant neoplasm of colon (primary encounter diagnosis) Consultation requested by Dr. Coronado for an opinion regarding screening colonoscopy. My final recommendations will be communicated back to the requesting physician by way of shared Medical recordor letter to requesting physician via US mail. Pamella Hernandez PA-C documented in this encounterGreene Memorial Hospital07-14-2022 History of Present illness Narrative* Ron Coronado MD - 12/20/2021 11:00 AM EDT Chief Complaint Patient presents with: Medication Follow-up HPI Thom Chapin is a 51 year old male who presents here today for follow up. Pt here today for a medication follow up. Enjoying his summer, bought himself an electric bike and he loves it. No bowel, Gi, or urinary issues. Lipids - Currently on no statin medication, previously took Lipitor, unsure when this was stopped but may have been in the hospital. Does try to watch his diet. Has an electric bike that he does peddle and ride. Pt okay with starting back on medication. DM: Checking BS TID, with FBS around 120's. Denies any recent hypoglycemic episodes or neuropathy sx. Follows with Dr. Servin routinely for DM foot care. Taking Levemir 13 units in AM and 10 units in PM. Has followed with FLORIDALMA Zuñiga in the past. Has been trying to get Freestyle Harper, but having issues with his insurance. HTN: Checks BP at home, stating that its good. Denies any chest pain, dizziness, or SOB. Taking Lopressor 25 mg twice daily, Hydralazine 100 mg TID and Losartan 50 mg daily. Does want a referral to aCardiologist due to an NSTEMI with a stent placed a few years ago. Not taking Plavix 75 mg, unsure when this was stopped. Depression & TEMO: Stable with use of Hydralazine 100 mg TID. No longer on Celexa. CKD: Pt was in the hospital in September for acute hyperkalemia and end stage renal disease on dialysis. Follows with Lead Nurse, Dr. Felipe every 6 months. Goes to Dialysis every Fri, Fri and Fri withlabs done every Friday. Pt taking Renvella 800 mg TID. Past medical history, appointments, medications, allergies reviewed. Previous Medical History PAST MEDICAL HISTORY Diagnosis Date Cellulitis right foot CKD (chronic kidney disease) stage 4, GFR 15-29 ml/min ([facility]) Depression 2009 DIABETES TYPE I W RENAL MANIF-UNCONTRLLD 01/21/2005 Dialysis: MWFrancy Castro Diabetic nephropathy ([facility]) 02/22/2010 GLAUCOMA NOS 01/21/2005 Hyperlipidemia HYPERTENSION NOS 01/21/2005 Microcytic anemia NSTEMI (non-ST elevated myocardial infarction) ([facility]) Proteinuria 01/21/2005 PVD (peripheral vascular disease) ([facility]) Suicide attempt ([facility]) November 2009 Hosp [facility]> Previous Surgical History PAST SURGICAL HISTORY Procedure Laterality Date 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 CC PCI CORONARY INTERVENT 10/19/2018 proximal LAD KNEE SCOPE,DIAGNOSTIC 1987 Arthroscopy, knee PAST SURGICAL HISTORY OF Right 05/12/2018 Debridement of bone on plantar R foot VASECTOMY 02/14/07 Family History FAMILY HISTORY Problem Relation Age of Onset Diabetes Mother Ischemic Heart Disease Mother Alcohol/Drug Brother Hypertension Maternal Grandmother Ischemic Heart Disease Sister Patient Allergies ALLERGIES No Known Allergies Current Medications Current Outpatient Medications on File Prior to Visit Medication Sig magnesium oxide (MAG-OX) 400 mg (241.3 mg magnesium) tablet Take 1 tablet by mouth twice daily. hydrALAZINE (APRESOLINE) 100 mg tablet Take 1 tablet by mouth three times daily. UNIFINE PENTIPS 31 gauge x 3/16 Use twice daily as directed for insulin flash glucose scanning reader (M-FilesSTYLE HARPER 2 READER) Use as directed to monitor blood sugar flash glucose sensor (FREESTYLE HARPER 2 SENSOR) kit Use as directed to monitor blood glucose metoprolol tartrate, short acting, (LOPRESSOR) 25 mg tablet Take 1 tablet by mouth twice daily. blood sugar diagnostic (TRUETEST TEST STRIPS) test strip test three times daily - dx 250.00 - insulin depentant insulin detemir U-100 (LEVEMIR FLEXTOUCH U-100 INSULIN) 100 unit/mL (3 mL) injection pen 13 units in the am and 10 units in the pm timoloL maleate (TIMOPTIC) 0.5 % ophthalmic solution Use 1 Drop in both eyes twice daily. minoxidil (LONITEN) 2.5 mg tablet Take 1 tablet by mouth once daily. losartan (COZAAR) 50 mg tablet Take 1 tablet by mouth once daily. clopidogrel (PLAVIX) 75 mg tablet Take 1 tablet by mouth once daily. atorvastatin (LIPITOR) 40 mg tablet Take 1 tablet by mouth daily at bedtime. For cholesterol. aspirin 81 mg chewable tablet Take 1 tablet by mouth once daily. sildenafil (VIAGRA) 50 mg tablet Take 1 tablet by mouth as needed. Take one hour prior to sexual activity latanoprost (XALATAN) 0.005 % ophthalmic solution Use 1 Drop in both eyes daily at bedtime. lisinopril (ZESTRIL, PRINIVIL) 10 mg tablet Take 10 mg by mouth once daily. sevelamer carbonate (RENVELA) 800 mg tablet Take 1 mg by mouth three times daily. ondansetron (ZOFRAN) 4 mg tablet TRUE METRIX GLUCOSE METER [facility] NOVOFINE AUTOCOVER 30 gauge x 1/3 ndle citalopram (CELEXA) 20 mg tablet Take 1 tablet by mouth once daily. Insulin Syringe-Needle U-100 (BD LO-DOSE MICRO-FINE IV) 0.3 mL 28 x 1/2 syrg Inject 1 Each subcutaneously daily at bedtime. Inject once daily (for Lantus) Dx: Diabetes Type I with renal manifestations . 254.43 glucagon, human recombinant, (GLUCAGON EMERGENCY) 1 mg injection 1 mg as needed. ADMINISTER FOR LOWBLOOD SUGAR - IF UNCONSCIOUS OR UNABLE TO SWALLOW No current facility-administered medications on file prior to visit. Social History Social History Tobacco Use Smoking status: Never Smoker Smokeless tobacco: Never Used Vaping Use Vaping Use: Never used Substance Use Topics Alcohol use: No Drug use: No EXAM: BP 124/80 (BP Site: Right Arm, BP Position: Sitting, BP Cuff Size: Regular Adult) Pulse 60 Resp16 Wt 67.4 kg (148 lb 9.6 oz) BMI 19.08 kg/m General Appearance: Well appearing, alert, in no acute distress, well-hydrated, well nourished. andThin. Lungs: Lungs clear to auscultation. No wheezing, rhonchi, rales.. Heart: RRR without murmur, gallop, or rubs. No ectopy. Health Maintenance List BP CONTROLLED (<130/80) Never done HEPATITIS B(1 of 3 - Risk 3-dose series) Never done SHINGRIX VACCINE(1 of 2) Never done DTAP,TDAP,TD(1 - Tdap) due on 08/11/2008 COLORECTAL CANCER SCREENING Never done DIABETIC FOOT EXAM due on 07/30/2019 COVID-19 VACCINE(4 - Booster for Moderna series) due on 08/11/2021 PNEUMOCOCCAL(3 - PCV) due on 10/12/2021 HBA1C due on 12/12/2021 DILATED RETINAL EXAM due on 05/10/2022 ANNUAL PCP TEAM CHRONIC DISEASE VISIT due on 05/31/2022 LDL CHOLESTEROL due on 06/14/2022 SERUM CREATININE due on 06/14/2022 HEMOGLOBIN/HEMATOCRIT due on 06/14/2022 INFLUENZA Completed HEPATITIS C SCREENING Completed HIV SCREENING Completed Data reviewed [facility]/Care Everywhere ASSESSMENT/PLAN: 1. 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) - ICD9: 250.41, 583.81, ICD10: E10.29 (primary diagnosis) Controlled. - Continue current medications - LEVEMIR FLEXTOUCH U-100 INSULIN 100 UNIT/ML (3 ML) SUBCUTANEOUS PEN - CONSULT TO ENDOCRINOLOGY 2. Current mild episode of major depressive disorder without prior episode (HCC) - ICD9: 296.21, ICD10: F32.0 Continue current medications. 3. ESRD (end stage renal disease) (HCC) - ICD9: 585.6, ICD10: N18.6 Follow with Nephrology/dialysis 4. Hyperlipidemia, unspecified hyperlipidemia type - ICD9: 272.4, ICD10: E78.5 Go back on Lipitor - ATORVASTATIN 40 MG TABLET 5. Glaucoma suspect of both eyes - ICD9: 365.00, ICD10: H40.003 6. History of heart artery stent - ICD9: V45.82, ICD10: Z95.5 - ATORVASTATIN 40 MG TABLET - CONSULT TO CARDIOLOGY 7. NSTEMI (non-ST elevated myocardial infarction) (HCC) - ICD9: 410.70, ICD10: I21.4 - CONSULT TO CARDIOLOGY Check A1c today; notify of result 6 mo f/u with labs to check lipid/A1c I agree with the Chief Complaint, ROS, and Past Histories independently gathered by the clinical donor support technician and the remaining scribed note accurately describes my personal service to the patient. Medical Decision Making: Problems: Moderate: 2+ stable chronic illnesses Data: Unique test(s) ordered: 2 Risk: Moderate: Drug management Medical Decision Making Level: 4 - Moderate Ron Coronado MD The documentation for this note was completed by Teressa Blanco Ma acting as scribe for Ron Coronado MD. December 20, 2021 11:14 AM. Teressa Blanco Ma documented in this [facility] Miscellaneous Notes* Telephone Encounter - Adrienne Hodge - 12/12/2021 11:24 AM EDT Patient scheduled 12/31 with Pamella Hernandez * Telephone Encounter - Adrienne Hodge - 12/12/2021 8:47 AM EDT 2nd attempt to reach patient to schedule an in office visit for colon consult due to needing MAC and to be scheduled at [facility]. [place] to call me back directly at [phone] * Telephone Encounter - Adrienne Hodge - 12/11/2021 1:15 PM EDT 1st attempt to reach patient to schedule an in office visit for colon consult due to needing MAC and to be scheduled at [facility]. [place] to call me back directly at [phone] * Telephone Encounter - Adrienne Hodge - 12/11/2021 1:15 PM EDT Images from the original note were not included. Luis Ordonez You 1 hour ago (12:02 PM) KORY If a patient wants to have their procedure at [facility], they HAVE to be seen in the office prior. An H&P is required for anesthesia. Message text * Telephone Encounter - Adrienne Hodge - 12/11/2021 10:56 AM EDT PAT called and informed me of this patient cancelling his PAT appt he has before his [facility] on [facility] for a colonoscopy. Per patient and PAT patient would like to cancel procedure. Looks like patient was open accessed and Mary Rowan placed the order then the appt center scheduled him. So our office has yet to even see him. However, patient can't leave [place] due to transportation and would like to see if he can have this done at [facility] instead of [place] I informed patient I will send a message and see if [facility] will be okay and doing a provider switch for the procedure since Gwendolyn does not go to [facility]. Patient understood informedinformation. Please review and let me know the next step we can take to proceed and get his procedure rescheduled. documented in this encounterCleveland [id number] Miscellaneous Notes* Telephone Encounter - Penny Candelario Ma - 11/30/2021 5:04 PM EDT Pt notified and voiced understanding. Penny Candelario Ma * Telephone Encounter - Ron Coronado MD - 11/30/2021 4:20 PM EDT He needs to get eye drop refills form eye doctor Ron Coronado MD * Telephone Encounter - Penny Candelario Ma - 11/30/2021 3:44 PM EDT DO YOU WANT TO REFILL EYE DROPS? You only prescribed Timoptic in past, not the Xalatan. Last office visit: 05/31/21 F/u scheduled: 12/20/21 Penny Candelario Ma * Telephone Encounter - Jeannine Hernandez Pss - 11/30/2021 3:39 PM EDT Pharmacy verified in [facility] Patient has been identified by name and date of : Yes Patient aware RX will be sent to pharmacy. No need to notify patient. Patient phones for refill(s): Pending Prescriptions Disp Refills TIMOLOL MALEATE 0.5 % EYE DROPS Sig: Use 1 Drop in both eyes twice daily. ASAD: No LATANOPROST 0.005 % EYE DROPS Sig: Use 1 Drop in both eyes daily at bedtime. ASAD: No Date of last office visit : 05/31/2021 Date of next office visit : 12/20/2021 Last 2 Encounter Wt Readings: Date: Wt: 05/31/2021 66.7 kg (147 lb) 10/12/2020 70.7 kg (155 lb 12.8 oz) Please advise. Jeannine Hernandez Pss documented in this encounterGreene [facility]06-23-2022 Miscellaneous Notes* Telephone Encounter - Nakia Rossi LPN - 11/29/2021 8:16 AM EDT Called pt regarding missed [facility] appt. Gave pt number to central scheduling to reschedule. Nakia Rossi LPN documented in this encounterGreene [facility]11-15-2012 History of Past illness Narrative* Problem Noted Date Resolved Date Sinus complaint 04/23/2012 06/16/2019 Ulcer of other part of foot 04/04/201107/11 Cellulitis and abscess of foot, except toes 03/0907/30/2019 Ulcer of heel and midfoot 11/20/20102019 Diabetic nephropathy 02/22/2010 06/16/2019 Overview: Persistent proteinuria since 2008. BUN and creatinine fairly stable eGFR = 57 ml/min (Outside labs - 12/26/2009) Sterilization 02/05/2007 07/30/2019 documented as of this encounter (statuses as of 09/17/2021) [facility] of Past illness Narrative* Problem Noted Date Resolved Date Sinus complaint 04/23/2012 06/16/2019 Ulcer of other part of foot 04/04/201107/11 Cellulitis and abscess of foot, except toes 03/0907/30/2019 Ulcer of heel and midfoot 11/20/20102019 Diabetic nephropathy 02/22/2010 06/16/2019 Overview: Persistent proteinuria since 2008. BUN and creatinine fairly stable eGFR = 57 ml/min (Outside labs - 12/26/2009) Sterilization 02/05/2007 07/30/2019 documented as of this encounter (statuses as of 09/18/2021) [facility] of Past illness Narrative* Problem Noted Date Resolved Date Sinus complaint 04/23/2012 06/16/2019 Ulcer of other part of foot 04/04/201107/11 Cellulitis and abscess of foot, except toes 03/0907/30/2019 Ulcer of heel and midfoot 11/20/20102019 Diabetic nephropathy 02/22/2010 06/16/2019 Overview: Persistent proteinuria since 2008. BUN and creatinine fairly stable eGFR = 57 ml/min (Outside labs - 12/26/2009) Sterilization 02/05/2007 07/30/2019 documented as of this encounter (statuses as of 11/29/2021) [place] [address]15-2012 History of Past illness Narrative* Problem Noted Date Resolved Date Sinus complaint 04/23/2012 06/16/2019 Ulcer of other part of foot 04/04/201107/11 Cellulitis and abscess of foot, except toes 03/0907/30/2019 Ulcer of heel and midfoot 11/20/20102019 Diabetic nephropathy 02/22/2010 06/16/2019 Overview: Persistent proteinuria since 2008. BUN and creatinine fairly stable eGFR = 57 ml/min (Outside labs - 12/26/2009) Sterilization 02/05/2007 07/30/2019 documented as of this encounter (statuses as of 11/30/2021) [facility] of [facility] illness Narrative* Problem Noted Date Resolved Date Sinus complaint 04/23/2012 06/16/2019 Ulcer of other part of foot 04/04/201107/11 Cellulitis and abscess of foot, except toes 03/0907/30/2019 Ulcer of heel and midfoot 11/20/20102019 Diabetic nephropathy 02/22/2010 06/16/2019 Overview: Persistent proteinuria since 2008. BUN and creatinine fairly stable eGFR = 57 ml/min (Outside labs - 12/26/2009) Sterilization 02/05/2007 07/30/2019 documented as of this encounter (statuses as of 12/20/2021) [facility] of [facility] illness Narrative* Problem Noted Date Resolved Date Sinus complaint 04/23/2012 06/16/2019 Ulcer of other part of foot 04/04/201107/11 Cellulitis and abscess of foot, except toes 1012/201021/2020 Ulcer of heel and midfoot 11/20/20102019 Diabetic nephropathy 02/22/2010 06/16/2019 Overview: Persistent proteinuria since 2008. BUN and creatinine fairly stable eGFR = 57 ml/min (Outside labs - 12/26/2009) Sterilization 02/05/2007 07/30/2019 documented as of this encounter (statuses as of 12/31/2021) [place] [address]15-2012 History of Past illness Narrative* Problem Noted Date Resolved Date Sinus complaint 04/23/2012 06/16/2019 Ulcer of other part of foot 04/04/201107/11 Cellulitis and abscess of foot, except toes 03/0907/30/2019 Ulcer of heel and midfoot 11/20/20102019 Diabetic nephropathy 02/22/2010 06/16/2019 Overview: Persistent proteinuria since 2008. BUN and creatinine fairly stable eGFR = 57 ml/min (Outside labs - 12/26/2009) Sterilization 02/05/2007 07/30/2019 documented as of this encounter (statuses as of 12/31/2021) [facility] of [facility] illness Narrative* Problem Noted Date Resolved Date Sinus complaint 04/23/2012 06/16/2019 Ulcer of other part of foot 04/04/201107/11 Cellulitis and abscess of foot, except toes 1012/201007/30/2019 Ulcer of heel and midfoot 11/20/20102019 Diabetic nephropathy 02/22/2010 06/16/2019 Overview: Persistent proteinuria since 2008. BUN and creatinine fairly stable eGFR = 57 ml/min (Outside labs - 12/26/2009) Sterilization 02/05/2007 07/30/2019 documented as of this encounter (statuses as of 01/29/2022) [facility] Narrative* Problem Noted Date Resolved Date Sinus complaint 04/23/2012 06/16/2019 Ulcer of other part of foot 04/04/201107/11 Cellulitis and abscess of foot, except toes 1012/201007/30/2019 Ulcer of heel and midfoot 11/20/20102019 Diabetic nephropathy 02/22/2010 06/16/2019 Overview: Persistent proteinuria since 2008. BUN and creatinine fairly stable eGFR = 57 ml/min (Outside labs - 12/26/2009) Sterilization 02/05/2007 07/30/2019 documented as of this encounter (statuses as of 01/30/2022) [facility] Narrative* Problem Noted Date Resolved Date Sinus complaint 04/23/2012 06/16/2019 Ulcer of other part of foot 04/04/201107/11 Cellulitis and abscess of foot, except toes 03/0907/30/2019 Ulcer of heel and midfoot 11/20/20102019 Diabetic nephropathy 02/22/2010 06/16/2019 Overview: Persistent proteinuria since 2008. BUN and creatinine fairly stable eGFR = 57 ml/min (Outside labs - 12/26/2009) Sterilization 02/05/2007 07/30/2019 documented as of this encounter (statuses as of 02/01/2022) [facility] Narrative* Problem Noted Date Resolved Date Sinus complaint 04/23/2012 06/16/2019 Ulcer of other part of foot 04/04/201107/11 Cellulitis and abscess of foot, except toes 1012/201007/30/2019 Ulcer of heel and midfoot 11/20/20102019 Diabetic nephropathy 02/22/2010 06/16/2019 Overview: Persistent proteinuria since 2008. BUN and creatinine fairly stable eGFR = 57 ml/min (Outside labs - 12/26/2009) Sterilization 02/05/2007 07/30/2019 documented as of this encounter (statuses as of 02/18/2022) [facility] Narrative* Problem Noted Date Resolved Date Sinus complaint 04/23/2012 06/16/2019 Ulcer of other part of foot 04/04/201107/11 Cellulitis and abscess of foot, except toes 1012/201007/30/2019 Ulcer of heel and midfoot 11/20/20102019 Diabetic nephropathy 02/22/2010 06/16/2019 Overview: Persistent proteinuria since 2008. BUN and creatinine fairly stable eGFR = 57 ml/min (Outside labs - 12/26/2009) Sterilization 02/05/2007 07/30/2019 documented as of this encounter (statuses as of 03/19/2022) [place] [address]2012 History of Past illness Narrative* Problem Noted Date Resolved Date Sinus complaint 04/23/2012 06/16/2019 Ulcer of other part of foot 04/04/201107/11 Cellulitis and abscess of foot, except toes 03/0907/30/2019 Ulcer of heel and midfoot 11/20/20102019 Diabetic nephropathy 02/22/2010 06/16/2019 Overview: Persistent proteinuria since 2008. BUN and creatinine fairly stable eGFR = 57 ml/min (Outside labs - 12/26/2009) Sterilization 02/05/2007 07/30/2019 documented as of this encounter (statuses as of 05/21/2022) [place] [address]2012 History of Past illness Narrative* Problem Noted Date Resolved Date Sinus complaint 04/23/2012 06/16/2019 Ulcer of other part of foot 04/04/201107/11 Cellulitis and abscess of foot, except toes 03/0907/30/2019 Ulcer of heel and midfoot 11/20/20102019 Diabetic nephropathy 02/22/2010 06/16/2019 Overview: Persistent proteinuria since 2008. BUN and creatinine fairly stable eGFR = 57 ml/min (Outside labs - 12/26/2009) Sterilization 02/05/2007 07/30/2019 documented as of this encounter (statuses as of 06/09/2022) [facility] Narrative* Problem Noted Date Resolved Date Sinus complaint 04/23/2012 06/16/2019 Ulcer of other part of foot 04/04/201107/11 Cellulitis and abscess of foot, except toes 03/0907/30/2019 Ulcer of heel and midfoot 11/20/20102019 Diabetic nephropathy 02/22/2010 06/16/2019 Overview: Persistent proteinuria since 2008. BUN and creatinine fairly stable eGFR = 57 ml/min (Outside labs - 12/26/2009) Sterilization 02/05/2007 07/30/2019 documented as of this encounter (statuses as of 06/10/2022) [place] [address]2012 History of Past illness Narrative* Problem Noted Date Resolved Date Sinus complaint 04/23/2012 06/16/2019 Ulcer of other part of foot 04/04/201107/11 Cellulitis and abscess of foot, except toes 03/0907/30/2019 Ulcer of heel and midfoot 11/20/20102019 Diabetic nephropathy 02/22/2010 06/16/2019 Overview: Persistent proteinuria since 2008. BUN and creatinine fairly stable eGFR = 57 ml/min (Outside labs - 12/26/2009) Sterilization 02/05/2007 07/30/2019 documented as of this encounter (statuses as of 06/21/2022) [place] [address] History of Past illness Narrative* Problem Noted Date Resolved Date Sinus complaint 04/23/2012 06/16/2019 Ulcer of other part of foot 04/04/201107/11 Cellulitis and abscess of foot, except toes 03/0907/30/2019 Ulcer of heel and midfoot 11/20/20102019 Diabetic nephropathy 02/22/2010 06/16/2019 Overview: Persistent proteinuria since 2008. BUN and creatinine fairly stable eGFR = 57 ml/min (Outside labs - 12/26/2009) Sterilization 02/05/2007 07/30/2019 documented as of this encounter (statuses as of 06/25/2022) [address]-2012 History of Past illness Narrative* Problem Noted Date Resolved Date Sinus complaint 04/23/2012 06/16/2019 Ulcer of other part of foot 04/04/201107/11 Cellulitis and abscess of foot, except toes 03/0907/30/2019 Ulcer of heel and midfoot 11/20/20102019 Diabetic nephropathy 02/22/2010 06/16/2019 Overview: Persistent proteinuria since 2008. BUN and creatinine fairly stable eGFR = 57 ml/min (Outside labs - 12/26/2009) Sterilization 02/05/2007 07/30/2019 documented as of this encounter (statuses as of 08/26/2022) [place] [address] History of Past illness Narrative* Problem Noted Date Resolved Date Sinus complaint 04/23/2012 06/16/2019 Ulcer of other part of foot 04/04/201107/11 Cellulitis and abscess of foot, except toes 03/0907/30/2019 Ulcer of heel and midfoot 11/20/20102019 Diabetic nephropathy 02/22/2010 06/16/2019 Overview: Persistent proteinuria since 2008. BUN and creatinine fairly stable eGFR = 57 ml/min (Outside labs - 12/26/2009) Sterilization 02/05/2007 07/30/2019 documented as of this encounter (statuses as of 08/29/2022) [place] [address] History of Past illness Narrative* Problem Noted Date Resolved Date Sinus complaint 04/23/2012 06/16/2019 Ulcer of other part of foot 04/04/201107/11 Cellulitis and abscess of foot, except toes 03/0907/30/2019 Ulcer of heel and midfoot 11/20/20102019 Diabetic nephropathy 02/22/2010 06/16/2019 Overview: Persistent proteinuria since 2008. BUN and creatinine fairly stable eGFR = 57 ml/min (Outside labs - 12/26/2009) Sterilization 02/05/2007 07/30/2019 documented as of this encounter (statuses as of 08/29/2022) [place] [address] History of Past illness Narrative* Problem Noted Date Resolved Date Sinus complaint 04/23/2012 06/16/2019 Ulcer of other part of foot 04/04/201107/11 Cellulitis and abscess of foot, except toes 03/0907/30/2019 Ulcer of heel and midfoot 11/20/20102019 Diabetic nephropathy 02/22/2010 06/16/2019 Overview: Persistent proteinuria since 2008. BUN and creatinine fairly stable eGFR = 57 ml/min (Outside labs - 12/26/2009) Sterilization 02/05/2007 07/30/2019 documented as of this encounter (statuses as of 11/29/2022) [facility] Narrative* Problem Noted Date Resolved Date Sinus complaint 04/23/2012 06/16/2019 Ulcer of other part of foot 04/04/201107/11 Cellulitis and abscess of foot, except toes 03/0907/30/2019 Ulcer of heel and midfoot 11/20/20102019 Diabetic nephropathy 02/22/2010 06/16/2019 Overview: Persistent proteinuria since 2008. BUN and creatinine fairly stable eGFR = 57 ml/min (Outside labs - 12/26/2009) Sterilization 02/05/2007 07/30/2019 documented as of this encounter (statuses as of 12/02/2022) [place] [address] History of Past illness Narrative* Problem Noted Date Diagnosed Date Resolved Date Sinus complaint 04/23/2012 06/16/2019 Ulcer of other part of foot 04/04/2011 07/30/2019 Cellulitis and abscess of foot, except toes 03/25/2011 07/30/2019 Ulcer of heel and midfoot 11/20/2010 Diabetic nephropathy 02/22/2010 020 Overview: Persistent proteinuria since 2008. BUN and creatinine fairly stable eGFR = 57 ml/min (Outside labs - 12/26/2009) Sterilization 02/05/2007 07/30/2019 documented as of this encounter (statuses as of 12/24/2022) [place] [id number] History of Past illness Narrative* Problem Noted Date Diagnosed Date Resolved Date Sinus complaint 04/23/2012 06/16/2019 Ulcer of other part of foot 04/04/2011 07/30/2019 Cellulitis and abscess of foot, except toes 03/25/2011 07/30/2019 Ulcer of heel and midfoot 11/20/2010 Diabetic nephropathy 02/22/2010 020 Overview: Persistent proteinuria since 2008. BUN and creatinine fairly stable eGFR = 57 ml/min (Outside labs - 12/26/2009) Sterilization 02/05/2007 07/30/2019 documented as of this encounter (statuses as of 01/02/2023) [facility]11-15-2012 History of Past illness Narrative* Problem Noted Date Diagnosed Date Resolved Date Sinus complaint 04/23/2012 06/16/2019 Ulcer of other part of foot 04/04/2011 07/30/2019 Cellulitis and abscess of foot, except toes 03/25/2011 07/30/2019 Ulcer of heel and midfoot 11/20/2010 Diabetic nephropathy 02/22/2010 020 Overview: Persistent proteinuria since 2008. BUN and creatinine fairly stable eGFR = 57 ml/min (Outside labs - 12/26/2009) Sterilization 02/05/2007 07/30/2019 documented as of this encounter (statuses as of 01/09/2023) [place] [id number] History of Past illness Narrative* Problem Noted Date Diagnosed Date Resolved Date Sinus complaint 04/23/2012 06/16/2019 Ulcer of other part of foot 04/04/2011 07/30/2019 Cellulitis and abscess of foot, except toes 03/25/2011 07/30/2019 Ulcer of heel and midfoot 11/20/2010 Diabetic nephropathy 02/22/2010 020 Overview: Persistent proteinuria since 2008. BUN and creatinine fairly stable eGFR = 57 ml/min (Outside labs - 12/26/2009) Sterilization 02/05/2007 07/30/2019 documented as of this encounter (statuses as of 02/06/2023) [address]15-2012 History of Past illness Narrative* Problem Noted Date Diagnosed Date Resolved Date Sinus complaint 04/23/2012 06/16/2019 Ulcer of other part of foot 04/04/2011 07/30/2019 Cellulitis and abscess of foot, except toes 03/25/2011 07/30/2019 Ulcer of heel and midfoot 11/20/2010 Diabetic nephropathy 02/22/2010 020 Overview: Persistent proteinuria since 2008. BUN and creatinine fairly stable eGFR = 57 ml/min (Outside labs - 12/26/2009) Sterilization 02/05/2007 07/30/2019 documented as of this encounter (statuses as of 03/03/2023) [place] [id number] History of Past illness Narrative* Problem Noted Date Diagnosed Date Resolved Date Sinus complaint 04/23/2012 06/16/2019 Ulcer of other part of foot 04/04/2011 07/30/2019 Cellulitis and abscess of foot, except toes 03/25/2011 07/30/2019 Ulcer of heel and midfoot 11/20/2010 Diabetic nephropathy 02/22/2010 020 Overview: Persistent proteinuria since 2008. BUN and creatinine fairly stable eGFR = 57 ml/min (Outside labs - 12/26/2009) Sterilization 02/05/2007 07/30/2019 documented as of this encounter (statuses as of 04/13/2023) [place] [id number] History of Past illness Narrative* Problem Noted Date Diagnosed Date Resolved Date Sinus complaint 04/23/2012 06/16/2019 Ulcer of other part of foot 04/04/2011 07/30/2019 Cellulitis and abscess of foot, except toes 03/25/2011 07/30/2019 Ulcer of heel and midfoot 11/20/2010 Diabetic nephropathy 02/22/2010 020 Overview: Persistent proteinuria since 2008. BUN and creatinine fairly stable eGFR = 57 ml/min (Outside labs - 12/26/2009) Sterilization 02/05/2007 07/30/2019 documented as of this encounter (statuses as of 04/13/2023) [address]15-2012 History of Past illness Narrative* Problem Noted Date Diagnosed Date Resolved Date Sinus complaint 04/23/2012 06/16/2019 Ulcer of other part of foot 04/04/2011 07/30/2019 Cellulitis and abscess of foot, except toes 03/25/2011 07/30/2019 Ulcer of heel and midfoot 11/20/2010 Diabetic nephropathy 02/22/2010 020 Overview: Persistent proteinuria since 2008. BUN and creatinine fairly stable eGFR = 57 ml/min (Outside labs - 12/26/2009) Sterilization 02/05/2007 07/30/2019 documented as of this encounter (statuses as of 05/09/2023) [place] [id number] History of Past illness Narrative* Problem Noted Date Diagnosed Date Resolved Date Sinus complaint 04/23/2012 06/16/2019 Ulcer of other part of foot 04/04/2011 07/30/2019 Cellulitis and abscess of foot, except toes 03/25/2011 07/30/2019 Ulcer of heel and midfoot 11/20/2010 Diabetic nephropathy 02/22/2010 020 Overview: Persistent proteinuria since 2008. BUN and creatinine fairly stable eGFR = 57 ml/min (Outside labs - 12/26/2009) Sterilization 02/05/2007 07/30/2019 documented as of this encounter (statuses as of 05/16/2023) [place] [id number] History of Past illness Narrative* Problem Noted Date Diagnosed Date Resolved Date Sinus complaint 04/23/2012 06/16/2019 Ulcer of other part of foot 04/04/2011 07/30/2019 Cellulitis and abscess of foot, except toes 03/25/2011 07/30/2019 Ulcer of heel and midfoot 11/20/2010 Diabetic nephropathy 02/22/2010 020 Overview: Persistent proteinuria since 2008. BUN and creatinine fairly stable eGFR = 57 ml/min (Outside labs - 12/26/2009) Sterilization 02/05/2007 07/30/2019 documented as of this encounter (statuses as of 05/30/2023) [address]15-2012 History of Past illness Narrative* Problem Noted Date Diagnosed Date Resolved Date Sinus complaint 04/23/2012 06/16/2019 Ulcer of other part of foot 04/04/2011 07/30/2019 Cellulitis and abscess of foot, except toes 03/25/2011 07/30/2019 Ulcer of heel and midfoot 11/20/2010 Diabetic nephropathy 02/22/2010 020 Overview: Persistent proteinuria since 2008. BUN and creatinine fairly stable eGFR = 57 ml/min (Outside labs - 12/26/2009) Sterilization 02/05/2007 07/30/2019 documented as of this encounter (statuses as of 07/11/2023) [place] [id number] History of Past illness Narrative* Problem Noted Date Diagnosed Date Resolved Date Sinus complaint 04/23/2012 06/16/2019 Ulcer of other part of foot 04/04/2011 07/30/2019 Cellulitis and abscess of foot, except toes 03/25/2011 07/30/2019 Ulcer of heel and midfoot 11/20/2010 Diabetic nephropathy 02/22/2010 020 Overview: Persistent proteinuria since 2008. BUN and creatinine fairly stable eGFR = 57 ml/min (Outside labs - 12/26/2009) Sterilization 02/05/2007 07/30/2019 documented as of this encounter (statuses as of 07/18/2023) [place] [id number] History of Past illness Narrative* Problem Noted Date Diagnosed Date Resolved Date Sinus complaint 04/23/2012 06/16/2019 Ulcer of other part of foot 04/04/2011 07/30/2019 Cellulitis and abscess of foot, except toes 03/25/2011 07/30/2019 Ulcer of heel and midfoot 11/20/2010 Diabetic nephropathy 02/22/2010 020 Overview: Persistent proteinuria since 2008. BUN and creatinine fairly stable eGFR = 57 ml/min (Outside labs - 12/26/2009) Sterilization 02/05/2007 07/30/2019 documented as of this encounter (statuses as of 08/13/2023) [address]15-2012 History of Past illness Narrative* Problem Noted Date Diagnosed Date Resolved Date Sinus complaint 04/23/2012 06/16/2019 Ulcer of other part of foot 04/04/2011 07/30/2019 Cellulitis and abscess of foot, except toes 03/25/2011 07/30/2019 Ulcer of heel and midfoot 11/20/2010 Diabetic nephropathy 02/22/2010 020 Overview: Persistent proteinuria since 2008. BUN and creatinine fairly stable eGFR = 57 ml/min (Outside labs - 12/26/2009) Sterilization 02/05/2007 07/30/2019 documented as of this encounter (statuses as of 08/14/2023) [facility]11-15-2012 History of Past illness Narrative* Problem Noted Date Diagnosed Date Resolved Date Sinus complaint 04/23/2012 06/16/2019 Ulcer of other part of foot 04/04/2011 07/30/2019 Cellulitis and abscess of foot, except toes 03/25/2011 07/30/2019 Ulcer of heel and midfoot 11/20/2010 Diabetic nephropathy 02/22/2010 020 Overview: Persistent proteinuria since 2008. BUN and creatinine fairly stable eGFR = 57 ml/min (Outside labs - 12/26/2009) Sterilization 02/05/2007 07/30/2019 documented as of this encounter (statuses as of 08/18/2023) [facility] noteNo assessment information availableW[facility] Work Phone: [facility]* Diagnosis Onset Date Resolution Status Acute hyperkalemia acute End stage renal disease on dialysis acute Hypoglycemia acute [facility] Work Phone: Evalulriyw note* Diagnosis Essential hypertension- Primary Unspecified essential hypertension documented in this encounter [facility] note* Diagnosis Essential hypertension- Primary Unspecified essential hypertension Screening for ischemic heart disease documented in this encounter [facility] note* Diagnosis 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)- Primary Current mild episode of major depressive disorder without prior episode (HCC) ESRD (end stage renal disease) ([facility]) End stage renal disease Hyperlipidemia, unspecified hyperlipidemia type Glaucoma suspect of both eyes Preglaucoma, unspecified History of heart artery stent Postsurgical percutaneous transluminal coronary angioplasty status NSTEMI (non-ST elevated myocardial infarction) ([facility]) Acute myocardial infarction, subendocardial infarction, episode of care unspecified documented in this encounter [facility] note* Diagnosis Encounter for screening for malignant neoplasm of colon- Primary Special screening for malignant neoplasms, colon documented in this encounter [facility] note* Diagnosis 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) [facility] Diagnosis Current mild episode of major depressive disorder without prior episode (HCC) [facility] Diagnosis Current mild episode of major depressive disorder without prior episode (HCC) documented in this encounter [facility] note* Diagnosis Type 1 DM with end-stage renal disease (HCC) Type I (juvenile type) diabetes mellitus with renal manifestations, not stated as uncontrolled documented in this encounter [facility] note* Diagnosis Type 1 DM with end-stage renal disease (HCC)- Primary Type I (juvenile type) diabetes mellitus with renal manifestations, not stated as uncontrolled Essential hypertension Unspecified essential hypertension Hyperlipidemia, unspecified hyperlipidemia type NSTEMI (non-ST elevated myocardial infarction) ([facility]) Acute myocardial infarction, subendocardial infarction, episode of care unspecified Current mild episode of major depressive disorder without prior episode (HCC) ESRD (end stage renal disease) ([facility]) End stage renal disease documented in this encounter [facility] note* Diagnosis Abnormal EKG- Primary Nonspecific abnormal electrocardiogram (ECG) (EKG) History of heart artery stent Postsurgical percutaneous transluminal coronary angioplasty status NSTEMI (non-ST elevated myocardial infarction) ([facility]) Acute myocardial infarction, subendocardial infarction, episode of care unspecified Precordial pain [facility]* Diagnosis Current mild episode of major depressive disorder without prior episode (HCC) [facility]* Diagnosis Screening for ischemic heart disease- Primary documented in this encounter [facility] note* Diagnosis Type 1 DM with end-stage renal disease (HCC)- Primary Type I (juvenile type) diabetes mellitus with renal manifestations, not stated as uncontrolled Essential hypertension Unspecified essential hypertension Hyperlipidemia, unspecified hyperlipidemia type Current mild episode of major depressive disorder without prior episode (HCC) ESRD (end stage renal disease) ([facility]) End stage renal disease 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, unspecified laterality, unspecified ulceration site (HCC) Secondary hyperparathyroidism of renal origin (HCC) Secondary hyperparathyroidism (of renal origin) S/P transmetatarsal amputation of foot, right ([facility]) Type 1 diabetes mellitus with chronic kidney disease on chronic dialysis ([facility]) Alpha 0-thalassemia ([facility]) Alpha thalassemia documented in this encounter [facility] note* Diagnosis Type 1 DM with end-stage renal disease (HCC)- Primary Type I (juvenile type) diabetes mellitus with renal manifestations, not stated as uncontrolled [facility]* Diagnosis Current mild episode of major depressive disorder without prior episode (HCC) [facility] Diagnosis Current mild episode of major depressive disorder without prior episode ([facility]) documented in this encounter [facility] note* Diagnosis ESRD (end stage renal disease) ([facility])- Primary End stage renal disease Pre-transplant evaluation for kidney transplant documented in this encounter [facility] Work Phone: Evaluation note* Diagnosis Pre-transplant evaluation for kidney transplant documented in this encounter [facility] Work Phone: Evaluation note* Diagnosis ESRD on dialysis ([facility])- Primary End stage renal disease documented in this encounter [facility] Work Phone: Evaluation note* Diagnosis Hyperlipidemia, unspecified hyperlipidemia type History of heart artery stent Postsurgical percutaneous transluminal coronary angioplasty status Type 1 diabetes mellitus with chronic kidney disease on chronic dialysis ([facility]) [facility] Diagnosis Preop examination- Primary Unspecified pre-operative examination 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 Preoperative cardiovascular examination Pre-operative cardiovascular examination documented in this encounter [facility] Work Phone: Evaluation note* Diagnosis Pre-transplant evaluation for kidney transplant documented in this encounter 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)- Primary Essential hypertension Unspecified essential hypertension Depression, unspecified depression type ESRD (end stage renal disease) (HCC) End stage renal disease Current mild episode of major depressive disorder without prior episode (HCC) Encounter for screening examination for other mental health and behavioral disorders Hyperlipidemia, unspecified hyperlipidemia type Anemia, unspecified type [facility] Diagnosis Current mild episode of major depressive disorder without prior episode (HCC) [facility] Diagnosis Pre-transplant evaluation for kidney transplant documented in this encounter [facility] Work Phone: Evaluation note* Diagnosis ESRD on dialysis (Multi)- Primary End stage renal disease documented in this encounter [facility] Work Phone: Evaluation note* Diagnosis Pre-transplant evaluation for kidney transplant documented in this encounter [facility] Work Phone: Evaluation note* Diagnosis ESRD (end stage renal disease) (Multi)- Primary End stage renal disease Kidney replaced by transplant ([facility]) Kidney replaced by transplant Urinary retention Unspecified retention of urine Hypocalcemia Steroid-induced hyperglycemia Type 1 diabetes mellitus with hyperglycemia (Multi) Essential hypertension Unspecified essential hypertension Impaired mobility and activities of daily living Type 1 diabetes mellitus documented in this encounter [facility] Work Phone: Evaluation note* Diagnosis ESRD (end stage renal disease) (Multi)- Primary End stage renal disease Kidney replaced by transplant ([facility]) Kidney replaced by transplant Urinary retention Unspecified retention of urine Hypocalcemia Steroid-induced hyperglycemia Type 1 diabetes mellitus with hyperglycemia (Multi) Essential hypertension Unspecified essential hypertension Impaired mobility and activities of daily living Type 1 diabetes mellitus ESRD (end stage renal disease) (Multi)- Primary End stage renal disease Kidney replaced by transplant ([facility]) Kidney replaced by transplant Hypocalcemia Kidney replaced by transplant ([facility]) Kidney replaced by transplant Essential hypertension Unspecified essential hypertension Urinary retention Unspecified retention of urine documented in this encounter [facility] Work Phone: Evaluation note* Diagnosis ESRD (end stage renal disease) (Multi)- Primary End stage renal disease Kidney replaced by transplant ([facility]) Kidney replaced by transplant Urinary retention Unspecified retention of urine Hypocalcemia Steroid-induced hyperglycemia Type 1 diabetes mellitus with hyperglycemia (Multi) Essential hypertension Unspecified essential hypertension Impaired mobility and activities of daily living Type 1 diabetes mellitus ESRD (end stage renal disease) (Multi)- Primary End stage renal disease Kidney replaced by transplant ([facility]) Kidney replaced by transplant Hypocalcemia Kidney replaced by transplant ([facility]) Kidney replaced by transplant Essential hypertension Unspecified essential hypertension Urinary retention Unspecified retention of urine Kidney replaced by transplant ([facility]) Kidney replaced by transplant documented in this encounter 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 Work Phone: Evaluation note* Diagnosis ESRD (end stage renal disease) (Multi)- Primary End stage renal disease Kidney replaced by transplant ([facility]) Kidney replaced by transplant Urinary retention Unspecified retention of urine Hypocalcemia Steroid-induced hyperglycemia Type 1 diabetes mellitus with hyperglycemia (Multi) Essential hypertension Unspecified essential hypertension Impaired mobility and activities of daily living Type 1 diabetes mellitus 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 Work Phone: Evaluation note* Diagnosis ESRD (end stage renal disease) (Multi)- Primary End stage renal disease Kidney replaced by transplant ([facility]) Kidney replaced by transplant Urinary retention Unspecified retention of urine Hypocalcemia Steroid-induced hyperglycemia Type 1 diabetes mellitus with hyperglycemia (Multi) Essential hypertension Unspecified essential hypertension Impaired mobility and activities of daily living Type 1 diabetes mellitus Delayed graft function of kidney ([facility])- Primary Kidney replaced by transplant ([facility]) Kidney replaced by transplant documented in this encounter [facility] Work Phone: Evaluation note* Diagnosis ESRD (end stage renal disease) (Multi)- Primary End stage renal disease Kidney replaced by transplant ([facility]) Kidney replaced by transplant Urinary retention Unspecified retention of urine Hypocalcemia Steroid-induced hyperglycemia Type 1 diabetes mellitus with hyperglycemia (Multi) Essential hypertension Unspecified essential hypertension Impaired mobility and activities of daily living Type 1 diabetes mellitus Kidney replaced by transplant ([facility]) Kidney replaced by transplant Steroid-induced hyperglycemia Type 1 diabetes mellitus with hyperglycemia (Multi) Hypocalcemia Kidney replaced by transplant ([facility]) Kidney replaced by transplant Essential hypertension Unspecified essential hypertension Urinary retention Unspecified retention of urine Kidney replaced by transplant ([facility]) Kidney replaced by transplant documented in this encounter 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 Work Phone: Evaluation note* Diagnosis ESRD (end stage renal disease) (Multi)- Primary End stage renal disease Kidney replaced by transplant ([facility]) Kidney replaced by transplant Urinary retention Unspecified retention of urine Hypocalcemia Steroid-induced hyperglycemia Type 1 diabetes mellitus with hyperglycemia (Multi) Essential hypertension Unspecified essential hypertension Impaired mobility and activities of daily living Type 1 diabetes mellitus Delayed graft function of kidney ([facility])- Primary Kidney replaced by transplant ([facility]) Kidney replaced by transplant documented in this encounter [facility] Work Phone: Evaluation note* Diagnosis ESRD (end stage renal disease) (Multi)- Primary End stage renal disease Kidney replaced by transplant ([facility]) Kidney replaced by transplant Urinary retention Unspecified retention of urine Hypocalcemia Steroid-induced hyperglycemia Type 1 diabetes mellitus with hyperglycemia (Multi) Essential hypertension Unspecified essential hypertension Impaired mobility and activities of daily living Type 1 diabetes mellitus 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 Work Phone: Evaluation note* Diagnosis ESRD (end stage renal disease) (Multi)- Primary End stage renal disease Kidney replaced by transplant ([facility]) Kidney replaced by transplant Urinary retention Unspecified retention of urine Hypocalcemia Steroid-induced hyperglycemia Type 1 diabetes mellitus with hyperglycemia (Multi) Essential hypertension Unspecified essential hypertension Impaired mobility and activities of daily living Type 1 diabetes mellitus Hypocalcemia Kidney replaced by transplant (HHS-HCC) Kidney replaced by transplant Essential hypertension Unspecified essential hypertension Urinary retention Unspecified retention of urine documented in this encounter [facility] Work Phone: Evaluation note* Diagnosis ESRD (end stage renal disease) (Multi)- Primary End stage renal disease Kidney replaced by transplant (HHS-HCC) Kidney replaced by transplant Urinary retention Unspecified retention of urine Hypocalcemia Steroid-induced hyperglycemia Type 1 diabetes mellitus with hyperglycemia (Multi) Essential hypertension Unspecified essential hypertension Impaired mobility and activities of daily living Type 1 diabetes mellitus Delayed graft function of kidney (HHS-HCC)- Primary Kidney replaced by transplant (HHS-HCC) Kidney replaced by transplant Neutropenia, unspecified type Kidney replaced by transplant (HHS-HCC) Kidney replaced by transplant documented in this encounter 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 Work Phone: Evaluation note* Diagnosis ESRD (end stage renal disease) (Multi)- Primary End stage renal disease Kidney replaced by transplant ([facility]-HCC) Kidney replaced by transplant Urinary retention Unspecified retention of urine Hypocalcemia Steroid-induced hyperglycemia Type 1 diabetes mellitus with hyperglycemia (Multi) Essential hypertension Unspecified essential hypertension Impaired mobility and activities of daily living Type 1 diabetes mellitus Delayed graft function of kidney (HHS-HCC)- Primary Kidney replaced by transplant (HHS-HCC) Kidney replaced by transplant Neutropenia, unspecified type 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 Work Phone: Evaluation note* Diagnosis Hyperlipidemia, unspecified hyperlipidemia type History of heart artery stent Postsurgical percutaneous transluminal [facility] (end stage renal disease) (Multi)- Primary End stage renal disease Kidney replaced by transplant (HHS-HCC) Kidney replaced by transplant Urinary retention Unspecified retention of urine Hypocalcemia Steroid-induced hyperglycemia Type 1 diabetes mellitus with hyperglycemia (Multi) Essential hypertension Unspecified essential hypertension Impaired mobility and activities of daily living Type 1 diabetes mellitus Type 1 diabetes mellitus with hyperglycemia (Multi)- Primary Steroid-induced hyperglycemia Ulcer of foot, unspecified laterality, unspecified ulcer stage (Multi) 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 Work Phone: Evaluation note* Diagnosis ESRD (end stage renal disease) (Multi)- Primary End stage renal disease Kidney replaced by transplant (HHS-HCC) Kidney replaced by transplant Urinary retention Unspecified retention of urine Hypocalcemia Steroid-induced hyperglycemia Type 1 diabetes mellitus with hyperglycemia (Multi) Essential hypertension Unspecified essential hypertension Impaired mobility and activities of daily living Type 1 diabetes mellitus Kidney replaced by transplant (HHS-HCC) Kidney replaced by transplant Blood tests prior to treatment or procedure Pre-procedural laboratory examination Chronic kidney disease, unspecified CKD stage documented in this encounter 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 Work Phone: Evaluation note* Diagnosis ESRD (end stage renal disease) (Multi)- Primary End stage renal disease Kidney replaced by transplant (HHS-HCC) Kidney replaced by transplant Urinary retention Unspecified retention of urine Hypocalcemia Steroid-induced hyperglycemia Type 1 diabetes mellitus with hyperglycemia (Multi) Essential hypertension Unspecified essential hypertension Impaired mobility and activities of daily living Type 1 diabetes mellitus Delayed graft function of kidney (HHS-HCC) documented in this encounter [facility] Work Phone: Evaluation note* Diagnosis ESRD (end stage renal disease) (Multi)- Primary End stage renal disease Kidney replaced by transplant ([facility]-HCC) Kidney replaced by transplant Urinary retention Unspecified retention of urine Hypocalcemia Steroid-induced hyperglycemia Type 1 diabetes mellitus with hyperglycemia (Multi) Essential hypertension Unspecified essential hypertension Impaired mobility and activities of daily living Type 1 diabetes mellitus Delayed graft function of kidney (HHS-HCC)- Primary Kidney replaced by transplant ([facility]) Kidney replaced by transplant documented in this encounter [facility] Work Phone: Evaluation note* Diagnosis ESRD (end stage renal disease) (Multi)- Primary End stage renal disease Kidney replaced by transplant ([facility]-HCC) Kidney replaced by transplant Urinary retention Unspecified retention of urine Hypocalcemia Steroid-induced hyperglycemia Type 1 diabetes mellitus with hyperglycemia (Multi) Essential hypertension Unspecified essential hypertension Impaired mobility and activities of daily living Type 1 diabetes mellitus Elevated serum creatinine- Primary Other nonspecific findings on examination of blood Elevated serum creatinine Other nonspecific findings on examination of blood End-stage renal disease (Multi) Kidney replaced by transplant ([facility]) Kidney replaced by transplant Secondary hyperparathyroidism of renal origin (Multi) Secondary hyperparathyroidism (of renal origin) Hypocalcemia Urinary retention Unspecified retention of urine Vitamin D deficiency, unspecified ESRD (end stage renal disease) (Multi) End stage renal disease Pain Generalized pain Hypertension, unspecified type Steroid-induced hyperglycemia Type 1 diabetes mellitus with hyperglycemia (Multi) Type 1 diabetes mellitus with hyperglycemia (Multi) documented in this encounter [facility] Work Phone: Evaluation note* Diagnosis ESRD (end stage renal disease) (Multi)- Primary End stage renal disease Kidney replaced by transplant ([facility]-HCC) Kidney replaced by transplant Urinary retention Unspecified retention of urine Hypocalcemia Steroid-induced hyperglycemia Type 1 diabetes mellitus with hyperglycemia (Multi) Essential hypertension Unspecified essential hypertension Impaired mobility and activities of daily living Type 1 diabetes mellitus Elevated serum creatinine- Primary Other nonspecific findings on examination of blood Elevated serum creatinine Other nonspecific findings on examination of blood End-stage renal disease (Multi) Kidney replaced by transplant ([facility]) Kidney replaced by transplant Secondary hyperparathyroidism of renal origin (Multi) Secondary hyperparathyroidism (of renal origin) Hypocalcemia Urinary retention Unspecified retention of urine Vitamin D deficiency, unspecified ESRD (end stage renal disease) (Multi) End stage renal disease Pain Generalized pain Hypertension, unspecified type Steroid-induced hyperglycemia Type 1 diabetes mellitus with hyperglycemia (Multi) Type 1 diabetes mellitus with hyperglycemia (Multi) 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 Work Phone: Evaluation note* Diagnosis ESRD (end stage renal disease) (Multi)- Primary End stage renal disease Kidney replaced by transplant (HHS-HCC) Kidney replaced by transplant Urinary retention Unspecified retention of urine Hypocalcemia Steroid-induced hyperglycemia Type 1 diabetes mellitus with hyperglycemia (Multi) Essential hypertension Unspecified essential hypertension Impaired mobility and activities of daily living Type 1 diabetes mellitus Elevated serum creatinine- Primary Other nonspecific findings on examination of blood Elevated serum creatinine Other nonspecific findings on examination of blood End-stage renal disease (Multi) Kidney replaced by transplant ([facility]-HCC) Kidney replaced by transplant Secondary hyperparathyroidism of renal origin (Multi) Secondary hyperparathyroidism (of renal origin) Hypocalcemia Urinary retention Unspecified retention of urine Vitamin D deficiency, unspecified ESRD (end stage renal disease) (Multi) End stage renal disease Pain Generalized pain Hypertension, unspecified type Steroid-induced hyperglycemia Type 1 diabetes mellitus with hyperglycemia (Multi) Type 1 diabetes mellitus with hyperglycemia (Multi) Type 1 diabetes mellitus with hyperglycemia (Multi) Kidney replaced by transplant ([facility]-HCC) Kidney replaced by transplant documented in this encounter [facility] Work Phone: Evaluation note* Diagnosis ESRD (end stage renal disease) (Multi)- Primary End stage renal disease Kidney replaced by transplant ([facility]-HCC) Kidney replaced by transplant Urinary retention Unspecified retention of urine Hypocalcemia Steroid-induced hyperglycemia Type 1 diabetes mellitus with hyperglycemia (Multi) Essential hypertension Unspecified essential hypertension Impaired mobility and activities of daily living Type 1 diabetes mellitus Elevated serum creatinine- Primary Other nonspecific findings on examination of blood Elevated serum creatinine Other nonspecific findings on examination of blood End-stage renal disease (Multi) Kidney replaced by transplant ([facility]-HCC) Kidney replaced by transplant Secondary hyperparathyroidism of renal origin (Multi) Secondary hyperparathyroidism (of renal origin) Hypocalcemia Urinary retention Unspecified retention of urine Vitamin D deficiency, unspecified ESRD (end stage renal disease) (Multi) End stage renal disease Pain Generalized pain Hypertension, unspecified type Steroid-induced hyperglycemia Type 1 diabetes mellitus with hyperglycemia (Multi) Type 1 diabetes mellitus with hyperglycemia (Multi) Immunosuppressive management encounter following kidney transplant- Primary Encounter for long-term (current) use of other medications Kidney replaced by transplant (HHS-HCC) Kidney replaced by transplant Chronic kidney disease (CKD), stage IV (severe) (Multi) Chronic kidney disease, Stage IV (severe) documented in this encounter [facility] Work Phone: Evaluation note* Diagnosis ESRD (end stage renal disease) (Multi)- Primary End stage renal disease Kidney replaced by transplant ([facility]-HCC) Kidney replaced by transplant Urinary retention Unspecified retention of urine Hypocalcemia Steroid-induced hyperglycemia Type 1 diabetes mellitus with hyperglycemia (Multi) Essential hypertension Unspecified essential hypertension Impaired mobility and activities of daily living Type 1 diabetes mellitus Elevated serum creatinine- Primary Other nonspecific findings on examination of blood Elevated serum creatinine Other nonspecific findings on examination of blood End-stage renal disease (Multi) Kidney replaced by transplant ([facility]-HCC) Kidney replaced by transplant Secondary hyperparathyroidism of renal origin (Multi) Secondary hyperparathyroidism (of renal origin) Hypocalcemia Urinary retention Unspecified retention of urine Vitamin D deficiency, unspecified ESRD (end stage renal disease) (Multi) End stage renal disease Pain Generalized pain Hypertension, unspecified type Steroid-induced hyperglycemia Type 1 diabetes mellitus with hyperglycemia (Multi) Type 1 diabetes mellitus with hyperglycemia (Multi) Delayed graft function of kidney ([facility])- Primary documented in this encounter [facility] Work Phone: Evaluation note* Diagnosis ESRD (end stage renal disease) (Multi)- Primary End stage renal disease Kidney replaced by transplant ([facility]) Kidney replaced by transplant Urinary retention Unspecified retention of urine Hypocalcemia Steroid-induced hyperglycemia Type 1 diabetes mellitus with hyperglycemia (Multi) Essential hypertension Unspecified essential hypertension Impaired mobility and activities of daily living Type 1 diabetes mellitus Elevated serum creatinine- Primary Other nonspecific findings on examination of blood Elevated serum creatinine Other nonspecific findings on examination of blood End-stage renal disease (Multi) Kidney replaced by transplant ([facility]-HCC) Kidney replaced by transplant Secondary hyperparathyroidism of renal origin (Multi) Secondary hyperparathyroidism (of renal origin) Hypocalcemia Urinary retention Unspecified retention of urine Vitamin D deficiency, unspecified ESRD (end stage renal disease) (Multi) End stage renal disease Pain Generalized pain Hypertension, unspecified type Steroid-induced hyperglycemia Type 1 diabetes mellitus with hyperglycemia (Multi) Type 1 diabetes mellitus with hyperglycemia (Multi) Hyperkalemia- Primary Hyperpotassemia Kidney replaced by transplant (HHS-HCC) Kidney replaced by transplant Kidney replaced by transplant (HHS-HCC) Kidney replaced by transplant documented in this encounter [facility] Work Phone: Evaluation note* Diagnosis ESRD (end stage renal disease) (Multi)- Primary End stage renal disease Kidney replaced by transplant (HHS-HCC) Kidney replaced by transplant Urinary retention Unspecified retention of urine Hypocalcemia Steroid-induced hyperglycemia Type 1 diabetes mellitus with hyperglycemia (Multi) Essential hypertension Unspecified essential hypertension Impaired mobility and activities of daily living Type 1 diabetes mellitus Elevated serum creatinine- Primary Other nonspecific findings on examination of blood Elevated serum creatinine Other nonspecific findings on examination of blood End-stage renal disease (Multi) Kidney replaced by transplant (HHS-HCC) Kidney replaced by transplant Secondary hyperparathyroidism of renal origin (Multi) Secondary hyperparathyroidism (of renal origin) Hypocalcemia Urinary retention Unspecified retention of urine Vitamin D deficiency, unspecified ESRD (end stage renal disease) (Multi) End stage renal disease Pain Generalized pain Hypertension, unspecified type Steroid-induced hyperglycemia Type 1 diabetes mellitus with hyperglycemia (Multi) Type 1 diabetes mellitus with hyperglycemia (Multi) Hyperkalemia- Primary Hyperpotassemia Hyperkalemia Hyperpotassemia Kidney replaced by transplant (HHS-HCC) Kidney replaced by transplant Steroid-induced hyperglycemia Kidney replaced by transplant (HHS-HCC) Kidney replaced by transplant Kidney replaced by transplant (HHS-HCC) Kidney replaced by transplant Kidney replaced by transplant ([facility]-H[facility]) Kidney replaced by transplant documented in this encounter [facility] Work Phone: Evaluation note* Diagnosis ESRD (end stage renal disease) (Multi)- Primary End stage renal disease Kidney replaced by transplant (HHS-HCC) Kidney replaced by transplant Urinary retention Unspecified retention of urine Hypocalcemia Steroid-induced hyperglycemia Type 1 diabetes mellitus with hyperglycemia (Multi) Essential hypertension Unspecified essential hypertension Impaired mobility and activities of daily living Type 1 diabetes mellitus Elevated serum creatinine- Primary Other nonspecific findings on examination of blood Elevated serum creatinine Other nonspecific findings on examination of blood End-stage renal disease (Multi) Kidney replaced by transplant (HHS-HCC) Kidney replaced by transplant Secondary hyperparathyroidism of renal origin (Multi) Secondary hyperparathyroidism (of renal origin) Hypocalcemia Urinary retention Unspecified retention of urine Vitamin D deficiency, unspecified ESRD (end stage renal disease) (Multi) End stage renal disease Pain Generalized pain Hypertension, unspecified type Steroid-induced hyperglycemia Type 1 diabetes mellitus with hyperglycemia (Multi) Type 1 diabetes mellitus with hyperglycemia (Multi) 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 Work Phone: Evaluation note* Diagnosis ESRD (end stage renal disease) (Multi)- Primary End stage renal disease Kidney replaced by transplant (HHS-HCC) Kidney replaced by transplant Urinary retention Unspecified retention of urine Hypocalcemia Steroid-induced hyperglycemia Type 1 diabetes mellitus with hyperglycemia (Multi) Essential hypertension Unspecified essential hypertension Impaired mobility and activities of daily living Type 1 diabetes mellitus Elevated serum creatinine- Primary Other nonspecific findings on examination of blood Elevated serum creatinine Other nonspecific findings on examination of blood End-stage renal disease (Multi) Kidney replaced by transplant ([facility]-HCC) Kidney replaced by transplant Secondary hyperparathyroidism of renal origin (Multi) Secondary hyperparathyroidism (of renal origin) Hypocalcemia Urinary retention Unspecified retention of urine Vitamin D deficiency, unspecified ESRD (end stage renal disease) (Multi) End stage renal disease Pain Generalized pain Hypertension, unspecified type Steroid-induced hyperglycemia Type 1 diabetes mellitus with hyperglycemia (Multi) Type 1 diabetes mellitus with hyperglycemia (Multi) Delayed graft function of kidney ([facility]-HCC)- Primary documented in this encounter [facility] Work Phone: Evaluation note* Diagnosis ESRD (end stage renal disease) (Multi)- Primary End stage renal disease Kidney replaced by transplant ([facility]-HCC) Kidney replaced by transplant Urinary retention Unspecified retention of urine Hypocalcemia Steroid-induced hyperglycemia Type 1 diabetes mellitus with hyperglycemia (Multi) Essential hypertension Unspecified essential hypertension Impaired mobility and activities of daily living Type 1 diabetes mellitus Elevated serum creatinine- Primary Other nonspecific findings on examination of blood Elevated serum creatinine Other nonspecific findings on examination of blood End-stage renal disease (Multi) Kidney replaced by transplant ([facility]-HCC) Kidney replaced by transplant Secondary hyperparathyroidism of renal origin (Multi) Secondary hyperparathyroidism (of renal origin) Hypocalcemia Urinary retention Unspecified retention of urine Vitamin D deficiency, unspecified ESRD (end stage renal disease) (Multi) End stage renal disease Pain Generalized pain Hypertension, unspecified type Steroid-induced hyperglycemia Type 1 diabetes mellitus with hyperglycemia (Multi) Type 1 diabetes mellitus with hyperglycemia (Multi) JOSE R (acute kidney injury)- Primary JOSE R (acute kidney injury) Secondary hyperparathyroidism of renal origin (Multi) Secondary hyperparathyroidism (of renal origin) Kidney replaced by transplant (HHS-HCC) Kidney replaced by transplant Steroid-induced hyperglycemia 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 Work Phone: [facility] ([facility] Outpatient Procedure (Routine) - Authorized Specialty Diagnoses / Procedures Referred By Contac t Referred To [facility] Diagnoses Essential hypertension Screening for ischemic heart disease Procedures ECG COMPLETE ECG ROUTINE ECG W/LEAST 12 LDS W/I&R Ivet Tesfaye MD [address] [place] [address] [facility] [address] [place] [address] Referral ID Status Reason Start Date Expiration Date Visits Requested Visits Authorized [id number] Authorized Auto-Generat ed Referral 09/18/2021 09/18/[address] [facility] [facility] Diagnostic Procedure Only (Routine) - Pending Review Specialty Diagnoses / Procedures Referred By Contac t Referred To Contact MOLECULAR & FUNCTIONAL IMAGING Diagnoses NSTEMI (non-ST elevated myocardial infarction) (HCC) Precordial pain Procedures NM CARDIAC PERF STRESS/EXERCISE MYOCARDIAL SPECT MULTIPLE STUDIES Ivet Tesfaye MD [address] [place] [address] Molecular & Functional Imaging [address] [id number] Referral ID Status Reason Start Date Expiration Date Visits Requested Visits Authorized [id number] Pending Review Auto-Generat ed Referral 09/02/2022 09/25/2023 1 1 * Outpatient Procedure (Routine) - Pending Review Specialty Diagnoses / Procedures Referred By Contac t Referred To Contact [facility] Diagnoses NSTEMI (non-ST elevated myocardial infarction) (HCC) Precordial pain Procedures ECHO ECHO TTHRC R-T 2D W/WOM-MODE COMPL SPEC&COLR D Ivet Tesfaye MD [address] [place] [address] [facility] [place] [address] [place] [address] Referral ID Status Reason Start Date Expiration Date Visits Requested Visits Authorized [id number] Pending Review Auto-Generat ed Referral 09/02/2022 08/26/2023 [address] [facility] for referral (narrative)No reason for referral [facility] Reason for visit Narrative* Diagnostic Procedure Only (Routine) - Closed Specialty Diagnoses / Procedures Referred By Eugene jiang Referred To Contact MOLECULAR & FUNCTIONAL IMAGING Diagnoses NSTEMI (non-ST elevated myocardial infarction) (HCC) Precordial pain Procedures NM CARDIAC PERF STRESS/EXERCISE MYOCARDIAL SPECT MULTIPLE STUDIES Ivet Tesfaye MD [address] [place] [address] Fax: Molecular & Functional Imaging [address] [place] [address] Referral ID Status Reason Start Date Expiration Date V isits Requested Visits Authorized [id number] Closed Auto-Generate d Referral 10/02/2022 11/01/2022 [address] [facility] for visit Narrative* Imaging (Routine) - Authorized Specialty Diagnoses / Procedures Referred By Eugene jiang Referred To Contact Radiology Diagnoses Pre-transplant evaluation for kidney transplant Procedures XR chest 2 [place] [address] [facility] Department [place] [address] Phone: tel: fax: Referral ID Status Reason Start Date Expiration Date Visits Requested Visits Authorized [id number] Authorized Perform Procedure 08/19/2024 08/19/2025 [address] [facility] Work Phone: Reason for visit Narrative* Imaging (Routine) - Authorized Specialty Diagnoses / Procedures Referred By Eugene jiang Referred To Contact Radiology Diagnoses Pre-transplant evaluation for kidney transplant Procedures [place] [address] [facility] of Surgery-Transplant [place] [id number] Phone: tel: fax: Referral ID Status Reason Start Date Expiration Date Visits Requested Visits Authorized [id number] Authorized Perform Procedure 08/19/2024 08/19/2025 [address] [facility] Work Phone: Reitpl for visit Narrative* CV Imaging (Routine) - Authorized Specialty Diagnoses / Procedures Referred By Eugene jiang Referred To Contact Cardiology Diagnoses Pre-transplant evaluation for kidney transplant Procedures Transthoracic Echo (TTE) Complete ID ECHO TTHRC R-T 2D W/WOM-MODE COMPL SPEC&[place] [address] [address] [facility] [place] [address] Phone: tel: fax: Referral ID Status Reason Start Date Expiration Date Visits Requested Visits Authorized [id number] Authorized Perform Procedure 09/17/2024 09/17/2025 [address] [facility] Work Phone: Refavf for visit Narrative* Auth/Cert Specialty Diagnoses / Procedures Referred By Eugene jiang Referred To Contact Diagnoses ESRD (end stage renal disease) (Multi) ESRD (end stage renal disease) (Multi) [N18.6] Procedures ID RENAL [id number] GRF W/O FINANCIAL SERVICES CONSULTANT NEPHRECTOMY TRANSPLANT, [place] [address] [address] Department of Surgery-Transplant [place] [id number] Phone: tel: fax: [place] [address] [place] [address] fax: Referral ID Status Reason Start Date Expiration Date Visits Re quested Visits Authorized [id number] [address] [facility] Work Phone: reason for visit Narrative* Imaging (Emergency) - Authorized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 04/28/20 Senior Sales Manager Relationship Specialty Start Date End Date Ron Coronado MD [address] [place] [address] PCP - General Family Practice 09/30/17 Korina Graves MD [address] [place] [address] [place] [address] Vascular Surgery 01/08/16 Kirk Celeste MD [address] [place] [address] Lead Nurse Nephrology 04/28/20 Senior Sales Manager Relationship Specialty Start Date End Date Ron Coronado MD [address] [place] [address] PCP - General Family Practice 09/30/17 Korina Graves MD [address] [place] [address] [place] [address] Vascular Surgery 01/08/16 Kirk Celeste MD [address] [place] [address] Lead Nurse Nephrology 04/28/20 Senior Sales Manager Relationship Specialty Start Date End Date Ron Coronado MD [address] [place] [address] PCP - General Family Practice 09/30/17 Korina Graves MD [address] [place] [address] [place] [address] Vascular Surgery 01/08/16 Kirk Celeste MD [address] [place] [address] Lead Nurse Nephrology 04/28/20 Senior Sales Manager Relationship Specialty Start Date End Date Ron Coronado MD [address] [place] [address] PCP - General Family Medicine 09/30/17 Korina Graves MD [address] [place] [address] [place] [address] Vascular Surgery 01/08/16 Kirk Celeste MD [address] [place] [address] Lead Nurse Nephrology 04/28/20 Senior Sales Manager Relationship Specialty Start Date End Date Ron Coronado MD [address] [place] [address] PCP - General Family Medicine 09/30/17 Korina Graves MD [address] [place] [address] [place] [address] Vascular Surgery 01/08/16 Kirk Celeste MD [address] [place] [address] Lead Nurse Nephrology 04/28/20 Senior Sales Manager Relationship Specialty Start Date End Date Ron Coronado MD [address] [place] [address] PCP - General Family Medicine 09/30/17 Korina Graves MD [address] [place] [address] [place] [address] Vascular Surgery 01/08/16 Kirk Celeste MD [address] [place] [address] Lead Nurse Nephrology 04/28/20 Senior Sales Manager Relationship Specialty Start Date End Date Ron Coronado MD [address] [place] [address] PCP - General Family Medicine 09/30/17 Korina Graves MD [address] [place] [address] [place] [address] Vascular Surgery 01/08/16 Kirk Celeste MD [address] [place] [address] Lead Nurse Nephrology 04/28/20 Senior Sales Manager Relationship Specialty Start Date End Date Ron Coronado MD [address] [place] [address] PCP - General Family Medicine 09/30/17 Korina Graves MD [address] [place] [address] [place] [address] Vascular Surgery 01/08/16 Kirk Celeste MD [address] [place] [address] Lead Nurse Nephrology 04/28/20 Senior Sales Manager Relationship Specialty Start Date End Date Ron Coronado MD [address] [place] [address] PCP - General Family Medicine 09/30/17 Korina Graves MD [address] [place] [address] [place] [address] Vascular Surgery 01/08/16 Kirk Celeste MD [address] [place] [address] Lead Nurse Nephrology 04/28/20 Senior Sales Manager Relationship Specialty Start Date End Date Ron Coronado MD [address] [place] [address] PCP - General Family Medicine 09/30/17 Korina Graves MD [address] [place] [address] [place] [address] Vascular Surgery 01/08/16 Kirk Celeste MD [address] [place] [address] Lead Nurse Nephrology 04/28/20 Senior Sales Manager Relationship Specialty Start Date End Date Ron Coronado MD [address] [place] [address] PCP - General Family Medicine 09/30/17 Korina Graves MD [address] [place] [address] [place] [address] Vascular Surgery 01/08/16 Kirk Celeste MD [address] [place] [address] Lead Nurse Nephrology 04/28/20 Senior Sales Manager Relationship Specialty Start Date End Date Ron Coronado MD [address] [place] [address] PCP - General Family Medicine 09/30/17 Korina Graves MD [address] [place] [address] [place] [address] Vascular Surgery 01/08/16 Kirk Celeste MD [address] [place] [address] Lead Nurse Nephrology 04/28/20 Senior Sales Manager Relationship Specialty Start Date End Date Ron Coronado MD [address] [place] [address] PCP - General Family Medicine 09/30/17 Korina Graves MD [address] [place] [address] [place] [address] Vascular Surgery 01/08/16 Kirk Celeste MD [address] [place] [address] Lead Nurse Nephrology 04/28/20 Senior Sales Manager Relationship Specialty Start Date End Date Ron Coronado MD [address] [place] [address] PCP - General Family Medicine 09/30/17 Korina Graves MD [address] [place] [address] [facility] [address] [place] [address] Vascular Surgery 01/08/16 Kirk Celeste MD [address] [place] [address] Lead Nurse Nephrology 04/28/20 Senior Sales Manager Relationship Specialty Start Date End Date Ron Coronado MD [address] [place] [address] PCP - General Family Medicine 09/30/17 Korina Graves MD [address] [place] [address] [place] [address] Vascular Surgery 01/08/16 Kirk Celeste MD [address] [place] [address] Lead Nurse Nephrology 04/28/20 Senior Sales Manager Relationship Specialty Start Date End Date Ron Coronado MD [address] [place] [address] PCP - General Family Medicine 09/30/17 Korina Graves MD [address] [place] [address] [place] [address] Vascular Surgery 01/08/16 Kirk Celeste MD [address] [place] [address] Lead Nurse Nephrology 04/28/20 Senior Sales Manager Relationship Specialty Start Date End Date Ron Coronado MD [address] [place] [address] PCP - General Family Medicine 09/30/17 Korina Graves MD [address] [place] [address] [place] [address] Vascular Surgery 01/08/16 Kirk Celeste MD [address] [place] [address] Lead Nurse Nephrology 04/28/20 Senior Sales Manager Relationship Specialty Start Date End Date Ron Coronado MD [address] [place] [address] PCP - General Family Medicine 09/30/17 Korina Graves MD [address] [place] [address] [place] [address] Vascular Surgery 01/08/16 Kirk Celeste MD [address] [place] [address] Lead Nurse Nephrology 04/28/20 Team Status: Active Member Role Status Dates Dr. Ron Coronado MD Family Provider Active Dr. Ron Coronado MD Primary Care Provider Active Team Status: Inactive Member Role Status Dates Dr. Ron Coronado MD Primary Care Provider Active Dr. Isaiah Servin DPM Attending Provider Active Team Status: Inactive Member Role Status Dates Dr. Ron Coronado MD Primary Care Provider Active Dr. Ramona Romero DO Emergency Provider Active Team Status: Inactive Member Role Status Dates Dr. Ron Coronado MD Primary Care Provider Active Dr. Rusty Juan MD Emergency Provider Active Senior Sales Manager Relationship Specialty Start Date End Date Ron Coronado MD [address] [place] [address] PCP - General Family Medicine 09/30/17 Korina Graves MD [address] [place] [address] [place] [address] Vascular Surgery 01/08/16 Kirk Celeste MD [address] [place] [address] Lead Nurse Nephrology 04/28/20 Senior Sales Manager Relationship Specialty Start Date End Date Ron Coronado MD [address] [place] [address] PCP - General Family Medicine 09/30/17 Korina Graves MD [address] [place] [address] [place] [address] Vascular Surgery 01/08/16 Kirk Celeste MD [address] [place] [address] Lead Nurse Nephrology 04/28/20 Senior Sales Manager Relationship Specialty Start Date End Date Ron Coronado MD [address] [place] [address] PCP - General Family Medicine 09/30/17 Korina Graves MD [address] [place] [address] [place] [address] Vascular Surgery 01/08/16 Kirk Celeste MD [address] [place] [address] Lead Nurse Nephrology 04/28/20 Senior Sales Manager Relationship Specialty Start Date End Date Ron Coronado MD [address] [place] [address] PCP - General Family Medicine 09/30/17 Korina Graves MD [address] [place] [address] [place] [address] Vascular Surgery 01/08/16 Kirk Celeste MD [address] [place] [address] Lead Nurse Nephrology 04/28/20 Senior Sales Manager Relationship Specialty Start Date End Date Ron Coronado MD [address] [place] [address] PCP - General Family Medicine 09/30/17 Korina Graves MD [address] [place] [address] [place] [address] Vascular Surgery 01/08/16 Kirk Celeste MD [address] [place] [address] Lead Nurse Nephrology 04/28/20 Senior Sales Manager Relationship Specialty Start Date End Date Ron Coronado MD [address] [place] [address] PCP - General Family Medicine 09/30/17 Korina Graves MD [address] [place] [address] [place] [address] Vascular Surgery 01/08/16 Kirk Celeste MD [address] [place] [address] Lead Nurse Nephrology 04/28/20 Senior Sales Manager Relationship Specialty Start Date End Date Ron Coronado MD [address] [place] [address] PCP - General Family Medicine 09/30/17 Korina Graves MD [address] [place] [address] [place] [address] Vascular Surgery 01/08/16 Kirk Celeste MD [address] [place] [address] Lead Nurse Nephrology 04/28/20 Senior Sales Manager Relationship Specialty Start Date End Date Ron Coronado MD [address] [place] [address] PCP - General Family Medicine 12/08/23 Senior Sales Manager Relationship Specialty Start Date End Date Ron Coronado MD [address] [place] [address] PCP - General Family Medicine 12/08/23 Senior Sales Manager Relationship Specialty Start Date End Date Ron Coronado MD [address] [place] [address] PCP - General Family Medicine 09/30/17 Korina Graves MD 1 [facility] [address] [place] [address] Vascular Surgery 01/08/16 Kirk Celeste MD [address] [place] [address] Lead Nurse Nephrology 04/28/20 Mary Jay, SIPHONER.[employer]HAUST EMISSIONS INSPECTOR [address] [place] [address] Physiognomist Family Medicine 05/16/24 Montez Toscano APRN.[employer]HAUST EMISSIONS INSPECTOR [address] [place] [address] Physiognomist Family Medicine 05/25/24 Senior Sales Manager Relationship Specialty Start Date End Date Ron Coronado MD [address] [place] [address] PCP - General Family Medicine 09/30/17 Korina Graves MD [address] [place] [address] [place], [place] [address] [phone] Vascular Surgery 01/08/16 Kirk Celeste MD [address] [place] [address] Lead Nurse Nephrology 04/28/20 Mary Jay APRN.[employer]HAUST EMISSIONS INSPECTOR [address] [place] [address] [facility]24 Montez Toscano APRN.EXHAUST EMISSIONS INSPECTOR [address] [place] [address] [facility] 05/25/24 Senior Sales Manager Relationship Specialty Start Date End Date Ron Coronado MD [address] [place] [address] PCP - General Family Medicine 09/30/17 Korina Graves MD [facility] [address] [place] [address] Vascular Surgery 01/08/16 Kirk Celeste MD [address] [place] [address] Lead Nurse Nephrology 04/28/20 Mary Jay APRN.EXHAUST EMISSIONS INSPECTOR [address] [place] [address] [facility] 05/16/24 Montez Toscano APRN.EXHAUST EMISSIONS INSPECTOR [address] [place] [address] Physiognomist Family Medicine 05/25/24 Senior Sales Manager Relationship Specialty Start Date End Date Ron Coronado MD [address] [place] [address] PCP - General Family Medicine 09/30/17 Korina Graves MD [address] [facility] [address] [place] [address] Vascular Surgery 01/08/16 Kirk Celeste MD [facility] [place] [address] Lead Nurse Nephrology 04/28/20 Mary Jay APRN.EXHAUST EMISSIONS INSPECTOR [address] [place] [address] Physiognomist Family Medicine 05/16/24 Montez Toscano APRN.EXHAUST EMISSIONS INSPECTOR [facility] [place] [address] Physiognomist Family [facility] 05/25/24 Senior Sales Manager Relationship Specialty Start Date End Date Ron Coronado MD [address] [place] [address] PCP - General Family Medicine 12/08/23 Senior Sales Manager Relationship Specialty Start Date End Date Ron Coronado MD [address] [place] [address] PCP - General Family Medicine 12/08/23 Senior Sales Manager Relationship Specialty Start Date End Date Ron Coronado MD [address] [place] [address] PCP - General Family Medicine 12/08/23 Senior Sales Manager Relationship Specialty Start Date End Date Ron Coronado MD [address] [place] [address] PCP - General Family Medicine 12/08/23 [place] [address] Department [place] [address] Surgeon Transplant 10/19/24 Senior Sales Manager Relationship Specialty Start Date End Date Ron Coronado MD [address] [place] [address] PCP - General Family Medicine 12/08/23 [place] [address] [facility] Department [place] [address] Surgeon Transplant 10/19/24 Senior Sales Manager Relationship Specialty Start Date End Date Ron Coronado MD [address] [place] [address] PCP - General Family Medicine 12/08/23 [place] [address] [facility] Department [place] [address] Surgeon Transplant 10/19/24 Senior Sales Manager Relationship Specialty Start Date End Date Ron Coronado MD [address] [place] [address] PCP - General Family Medicine 12/08/23 [place] [address] [facility] Department [place] [address] Surgeon Transplant 10/19/24 Senior Sales Manager Relationship Specialty Start Date End Date Ron Coronado MD [address] [place] [address] PCP - General Family Medicine 12/08/23 [place] [address] [facility] Department [place] [address] Surgeon Transplant 10/19/24 Senior Sales Manager Relationship Specialty Start Date End Date Ron Coronado MD [address] [place] [address] PCP - General Family Medicine 12/08/23 [place] [address] [facility] Department [place] [address] Surgeon Transplant 10/19/24 Senior Sales Manager Relationship Specialty Start Date End Date Ron Coronado MD [address] [place] [address] PCP - General Family Medicine 12/08/23 [place] [address] [facility] Department [place] [address] Surgeon Transplant 10/19/24 Senior Sales Manager Relationship Specialty Start Date End Date Ron Coronado MD [address] [place] [address] PCP - General Family Medicine 12/08/23 [place] [address] [facility] Department [place] [address] Surgeon Transplant 10/19/24 Senior Sales Manager Relationship Specialty Start Date End Date Ron Coronado MD [address] [place] [address] PCP - General Family Medicine 12/08/23 [place] [address] [facility] [place] [address] Surgeon Transplant 10/19/24 Senior Sales Manager Relationship Specialty Start Date End Date Ron Coronado MD [address] [place] [address] PCP - General Family Medicine 12/08/23 [place] [address] [facility] Department [place] [address] Surgeon Transplant 10/19/24 Senior Sales Manager Relationship Specialty Start Date End Date Ron Coronado MD [address] [place] [address] PCP - General Family Medicine 12/08/23 [place] [address] [facility] Department [place] [address] Surgeon Transplant 10/19/24 Senior Sales Manager Relationship Specialty Start Date End Date Ron Coronado MD [address] [place] [address] PCP - General Family Medicine 12/08/23 [place] [address] [address] Department [place] [address] Surgeon Transplant 10/19/24 Senior Sales Manager Relationship Specialty Start Date End Date Ron Coronado MD [address] [place], [place] [address] PCP - General Family Medicine 12/08/23 [place] [address] [address] [facility] Department [place] [address] Surgeon Transplant 10/19/24 Senior Sales Manager Relationship Specialty Start Date End Date Ron Coronado MD [facility] [place], [place] [address] PCP - General Family Medicine 09/30/17 Korina Graves MD [address] [place] [address] [place] [address] Vascular Surgery 01/08/16 Kirk Celeste MD [facility] [place] [address] Lead Nurse Nephrology 04/28/20 Montez Toscano APRN.[employer] EMISSIONS INSPECTOR [address] [place] [address] Physiognomist Family Medicine 05/25/24 Senior Sales Manager Relationship Specialty Start Date End Date Ron Coronado MD [address] [place] [address] PCP - General Family Medicine 12/08/23 [place] [address] [address] [facility] Department [place] [address] Surgeon Transplant 10/19/24 Senior Sales Manager Relationship Specialty Start Date End Date Ron Coronado MD [address] [place] [address] PCP - General Family Medicine 12/08/23 [place] [address] [facility] Department [place] [address] Surgeon Transplant 10/19/24 Senior Sales Manager Relationship Specialty Start Date End Date Ron Coronado MD [address] [place], [place] [address] PCP - General Family Medicine 12/08/23 [place] [address] [facility] Department [place] [address] Surgeon Transplant 10/19/24 Senior Sales Manager Relationship Specialty Start Date End Date Ron Coronado MD [facility] [place], [place] [address] PCP - General Family Medicine 09/30/17 Korina Graves MD 1 [facility] [address] [place] [address] Vascular Surgery 01/08/16 Kirk Celeste MD [facility] [place], [place] [address] Lead Nurse Nephrology 04/28/20 Montez Toscano, SABRINA.EXHAUST EMISSIONS INSPECTOR [facility] [place] [address] Physiognomist Family Medicine 05/25/24 Senior Sales Manager Relationship Specialty Start Date End Date Ron Coronado MD [address] [place] [address] PCP - General Family Medicine 12/08/23 [place] [address] Department [place] [address] Surgeon Transplant 10/19/24 Senior Sales Manager Relationship Specialty Start Date End Date Ron Coronado MD [address] [place] [address] PCP - General Family Medicine 12/08/23 [place] [address] [facility] Department [place] [address] Surgeon Transplant 10/19/24 Senior Sales Manager Relationship Specialty Start Date End Date Ron Coronado MD [address] [place] [address] PCP - General Family Medicine 12/08/23 [place] [address] [facility] Department [place] [address] Surgeon Transplant 10/19/24 Senior Sales Manager Relationship Specialty Start Date End Date Ron Coronado MD [address] [place] [address] PCP - General Family Medicine 12/08/23 [place] [address] [facility] Department [place] [address] Surgeon Transplant 10/19/24 Senior Sales Manager Relationship Specialty Start Date End Date Ron Coronado MD [address] [place] [address] PCP - General Family Medicine 12/08/23 [place] [address] [facility] Department [place] [address] Surgeon Transplant 10/19/24 Senior Sales Manager Relationship Specialty Start Date End Date Ron Coronado MD [address] [place] [address] PCP - General Family Medicine 12/08/23 Geovanna Brothers MD [address] [place] [address] Department [place] [address] Surgeon Transplant 10/19/24 Senior Sales Manager Relationship Specialty Start Date End Date Ron Coronado MD [address] [place] [address] PCP - General Family Medicine 12/08/23 Geovanna Brothers MD [id number] [place] [address] Department [place] [address] Surgeon Transplant 10/19/24 Senior Sales Manager Relationship Specialty Start Date End Date Ron Coronado MD [address] [place] [address] PCP - General Family Medicine 12/08/23 Geovanna Brothers MD [id number] [place] [address] Department [place] [address] Surgeon Transplant 10/19/24 Senior Sales Manager Relationship Specialty Start Date End Date Ron Coronado MD [address] [place] [address] PCP - General Family Medicine 12/08/23 [place] [address] [facility] Department [place] [address] Surgeon Transplant 10/19/24 Senior Sales Manager Relationship Specialty Start Date End Date Ron Coronado [place] [facility] [address] PCP - General Family Medicine 12/08/23 [place] [address] [facility] Department [place] [address] Surgeon Transplant 10/19/24 Senior Sales Manager Relationship Specialty Start Date End Date Ron Coronado MD [address] [place] [address] PCP - General Family Medicine 12/08/23 [place] [address] [facility] Department [place] [address] Surgeon Transplant 10/19/24 Senior Sales Manager Relationship Specialty Start Date End Date Ron Coronado MD [address] [place] [address] PCP - General Family Medicine 12/08/23 [place] [address] [facility] Department [place] [address] Surgeon Transplant 10/19/24 Senior Sales Manager Relationship Specialty Start Date End Date Ron Coronado MD [address] [place] [address] PCP - General Family Medicine 09/30/17 Korina Graves MD [address] [place] [address] Vascular Surgery 01/08/16 Kirk Celeste MD [facility] [place] [address] Lead Nurse Nephrology 04/28/20 Montez Toscano APRN.EXHAUST EMISSIONS INSPECTOR [facility] [place] [address] Physiognomist Family Medicine 05/25/24 Senior Sales Manager Relationship Specialty Start Date End Date Ron Coronado MD [facility] [place] [address] PCP - General Family Medicine 12/08/23 [place] [address] [facility] Department of Surgery-Transplant [place] [id number] Surgeon Transplant 10/19/24 Senior Sales Manager Relationship Specialty Start Date End Date Ron Coronado MD [facility] [place] [address] PCP - General Family Medicine 12/08/23 [place] [address] [facility] Department [place] [address] Surgeon Transplant 10/19/24 Senior Sales Manager Relationship Specialty Start Date End Date Ron Coronado MD [address] [place] [address] PCP - General Family Medicine 12/08/23 [place] [address] [facility] Department [place] [address] Surgeon Transplant 10/19/24 Senior Sales Manager Relationship Specialty Start Date End Date Ron Coronado MD [address] [place] [address] PCP - General Family Medicine 12/08/23 [place] [address] [facility] Department [place] [address] Surgeon Transplant 10/19/24 Team Status: Active Member Role/Relationship Status Dates Dr. Ron Coronado MD Primary Care Provider Active Team Status: Active Member Role/Relationship Status Dates Dr. Ron Coronado MD Primary Care Provider Active Start: December 27, 2024 Dr. Hamlet Bentley DO Emergency Provider Activ e Start: December 27, 2024 Dr. Jessie No MD Admit Provider Active Star t: December 27, 2024 Dr. Jessie No MD Attending Provider Active Start: December 27, 2024 Reason for Visit (unrecogniz ed section and content) Reason Comments Appointment Reason Onset Date Comments Refill Request 11/30/2021 Reason Comments Medication Follow-up Reason Comments Consult Colonoscopy Reason Comments Procedure Reason Comments Refill Request Reason Comments Forms [facility] Reason Comments Forms [facility] Reason Comments Patient Question Company is having tr ouble getting a hold of the patient. Reason Onset Date Comments Refill Request 05/21/2022 Reason Comments Requesting a prior authorization Reason Comments F/U 6 Month Reason Comments Consult Specialty Diagnoses / Procedures Referred By Contac t Referred To Contact Cardiology Diagnoses History of heart artery stent NSTEMI (non-ST elevated myocardial infarction) (HCC) Procedures CONSULT TO CARDIOLOGY OFFICE/OUTPATIENT NEW HIGH MDM 60-74 MINUTES Ron Cornoado MD [address] [place] [address] Referral ID Status Reason Start Date Expiration Date Visits Requested Visits Authorized [id number] Pending Review PCP Requested Referral 12/20/2021 12/20/2022 1 1 Reason Comments Forms DM supply form Reason Comments Forms CNM for CGMS Reason Comments Forms Reason Comments Radiology NM Specialty Diagnoses / Procedures [facility] To Contact MOLECULAR & FUNCTIONAL IMAGING Diagnoses NSTEMI (non-ST elevated myocardial infarction) (HCC) Precordial pain Procedures NM CARDIAC PERF STRESS/EXERCISE MYOCARDIAL SPECT MULTIPLE STUDIES Ivet Tesfaye MD [address] [place] [address] Molecular & Functional Imaging [address] [place] [address] Referral ID Status Reason Start Date Expiration Date V isits Requested Visits Authorized [id number] Closed Auto-Generate d Referral 10/02/2022 11/01/2022 1 1 Reason Onset Date Comments Refill Request 05/15/2023 Reason Onset Date Comments Refill Request 05/28/2023 Reason Comments Medication Problem New insulin - not co joselin Reason Comments Forms [facility] Services-re: Diabetds Reason Comments Copy of Last OV Notes Reason Comments Results Reason Onset Date Comments Refill Request 08/18/2023 Specialty Diagnoses / Procedures Referred By Contac t Referred To Contact Cardiology Diagnoses Pre-transplant evaluation for kidney transplant Procedures Transthoracic Echo (TTE) Complete ID ECHO TTHRC R-T 2D W/WOM-MODE COMPL SPEC&[place] [address] [facility] Department [place] [address] Referral ID Status Reason Start Date Expiration Date Visits Requested Visits Authorized [id number] Authorized Perform Procedure 08/20/2023 08/19/2024 1 1 Reason Onset Date Comments Refill Request 11/11/2023 Specialty Diagnoses / Procedures Referred By Eugene jiang Referred To Contact Diagnoses Preop examination Procedures ECG 12 [place] [address] [address] [place] [id number] Referral ID Status Reason Start Date Expiration Date V isits Requested Visits Authorized [id number] Authorized 11/18/2023 11/17/2024 1 1 Specialty Diagnoses / Procedures Referred By Eugene jiang Referred To Contact Radiology Diagnoses Pre-transplant evaluation for kidney transplant Procedures XR chest 2 [place] [address] [address] Department [place] [address] Referral ID Status Reason Start Date Expiration Date Visits Requested Visits Authorized [id number] Authorized Perform Procedure 03/03/2024 03/03/2025 1 1 Reason Onset Date Comments Refill Request 03/30/2024 Reason Comments Patient Question Reason Onset Date Comments Refill Request 05/04/2024 Specialty Diagnoses / Procedures Referred By Eugene jiang Referred To Contact Diagnoses 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 Preoperative cardiovascular examination 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 [I25.10] Preoperative cardiovascular examination [Z01.810] Procedures ID CATH PLMT L HRT & ARTS W/NJX & ANGIO IMG S&I [place] [address] [place] [address] Janet Jiménez MD [address] [facility] [place] [address] Referral ID Status Reason Start Date Expiration Date Visits Re quested Visits Authorized [id number] 11/19/2023 1 1 Reason Onset Date Comments Refill Request 06/08/2024 Reason Comments 6 Month Exam Reason Onset Date Comments Refill Request 08/10/2024 Reason Onset Date Comments Refill Request 08/17/2024 Reason Comments Medication Problem Reason Comments Diabetes Specialty Diagnoses / Procedures Referred By Eugene jiang Referred To Contact Pharmacy Diagnoses Kidney replaced by transplant ([facility]) Steroid-induced hyperglycemia Type 1 diabetes mellitus with hyperglycemia (Multi) Simone Westbrook PA-C [address] [facility] Department of [place] [address] Phone: tel: fax: Referral ID Status Reason Start Date Expiration Date Visits Requested Visits Authorized [id number] Authorized Specialty Services Required 10/19/2024 10/19/2025 1 1 Reason Comments Kidney Post Follow-up, Surgeon Specialty Diagnoses / Procedures Referred By Eugene jiang Referred To Contact Pharmacy Diagnoses Type 1 diabetes mellitus with hyperglycemia (Multi) Simone Westbrook PA-C [address] [facility] Department of [place] [address] Phone: tel: fax: Monika Nesbitt, PharmD [address] [address] Phone: tel: fax: Referral ID Status Reason Start Date Expiration Date Visits Requested Visits Authorized [id number] Authorized Specialty Services Required 11/02/2024 11/02/2025 1 1 Reason Comments elevated potassium Elevated potassium, pt had recent kidney transplant about 2 months ago. Reason Comments Prior Authorization for Transportation Reason Comments Insurance Authorization PRN Active and Recently Administ ered Medications (unrecognized section and content) Medication Order 12/06/2023 12/07/2023 12/08/2023 fentaNYL PF (Sublimaze) injection (CANCELED) As needed, Starting on Fri12/08/23 at 1219, Intraprocedure 1219 (Given - Provid er: Dedra Carmona, RN)1227 (Given - Provider: Dedra Carmona, NO) heparin 1,000 unit/mL injection (CANCELED) As needed, Starting on Fri12/08/23 at 1236, Intraprocedure 1236 (Given - Provid er: Dedra Carmona, RN) hydrALAZINE (Apresoline) injection (CANCELED) As needed, Starting on Fri12/08/23 at 1252, Intraprocedure 1252 (Given - Provid er: Isaiah Kevin RN) iohexol (OMNIPaque) 350 mg iodine/mL solution (CANCELED) As needed, Starting on Fri12/08/23 at 1251, Intraprocedure 1251 (Given - Provid er: Janet Jiméenz MD) lidocaine (Xylocaine) 20 mg/mL (2 %) injection (CANCELED) As needed, Starting on Fri12/08/23 at 1226, Intraprocedure 1226 (Given - Provid er: Janet Jiménez MD - Comment: R radial)1233 (Given - Provider: Janet Jiménez MD - Comment: R groin) midazolam (Versed) injection (CANCELED) As needed, Starting on Fri12/08/23 at 1219, Intraprocedure 1219 (Given - Provid er: Dedra Carmona, NO)1227 (Given - Provider: Dedra Carmona, RN) nitroglycerin in 5 % dextrose 10 mL syringe (CANCELED) As needed, Starting on Fri12/08/23 at 1227, Intraprocedure 1227 (Given - Provid er: Janet Jiménez MD) Scheduled Medication Order 10/19/2024 10/20/2024 10/21/2024 acetaminophen (Tylenol) tablet 650 mg 650 mg, oral, Once, On Fri10/16/24 at 0845, For 1 dose, If ordered PRN for pain, nurse is permitted to administer this medication for higher pain scores based on patient preference? Yes aspirin EC tablet 81 mg 81 mg, oral, Daily, First dose on Fri10/15/24 at 2015, Recovery & On Unit, Do not crush, chew, or split. 0823 (Given - Provider: Suzy Barahona, NO) 0803 (Given - Provider: Paloma Macedo, RN) 0819 (Given - Provider: Paloma Macedo, RN) bisacodyl (Dulcolax) suppository 10 mg 10 mg, rectal, Once, On Fri10/19/24 at 0930, For 1 dose 1057 (Not Given - Provider: Suzy Barahona, NO - Reason: Patient/family refused) calcitriol (Rocaltrol) capsule 0.25 mcg 0.25 mcg, oral, Daily, First dose on Fri10/19/24 at 1015 1210 (Given - Provider: Suzy Barahona RN) 0804 (Given - Provider: Paloma Macedo RN) 0820 (Given - Provider: Paloma Macedo RN) calcium gluconate 2 g in sodium chloride (iso) IV 100 mL (COMPLETED) 2 g, intravenous, at 100 mL/hr, Administer over 1 Hours, Once, On Fri10/19/24 at 1015, For 1 dose 1052 (New Bag - Provider: Suzy Barahona, RN)1057 (Stopped - Provider: Suzy Barahona RN) calcium gluconate 2 g in sodium chloride (iso) IV 100 mL (COMPLETED) 2 g, intravenous, at 100 mL/hr, Administer over 1 Hours, Once, On Fri10/20/24 at 0800, For 1 dose 0825 (New Bag - Provider: Paloma Macedo RN)0930 (Stopped - Provider: Paloma Macedo RN) calcium gluconate 2 g in sodium chloride (iso) IV 100 mL (COMPLETED) 2 g, intravenous, at 100 mL/hr, Administer over 1 Hours, Once, On Fri10/21/24 at 0900, For 1 dose 0857 (New Bag - Provider: Paloma Macedo RN)1016 (Stopped - Provider: Paloma Macedo RN) carvedilol (Coreg) tablet 25 mg 25 mg, oral, 2 times daily, First dose (after last modification) on Fri10/18/24 at 2100, Hold for HR<60 or SBP<120 0823 (Given - Provider: Suzy Barahona RN)2008 (Given - Provider: Finn Jenkins RN) 08 (Given - Provider: Paloma Macedo RN)2111 (Given - Provider: Artem Pimentel RN) 08 (Given - Provider: Paloma Macedo RN)2099 (Due) cholecalciferol (Vitamin D-3) tablet 50 mcg 50 mcg, oral, Daily, First dose on Fri10/18/24 at 0900 0632 (Given - Provider: Finn Jenkins, NO) 0638 (Given - Provider: Finn Jenkins RN) 0645 (Given - Provider: Flora Ferreira RN) clotrimazole (Mycelex) amanda 10 mg 10 mg, Mouth/Throat, 3 times daily after meals, First dose on 10/16/24 at 0900, Recovery & On Unit, Do not chew. Let amanda dissolve completely. Do not eat or drink for 15 minutes after taking. 0823 (Given - Provider: Suzy Barahona, NO)1210 (Given - Provider: Suzy Barahona RN)1806 (Given - Provider: Suzy Barahona RN) 0803 (Given - Provider: Paloma Maecdo RN)1218 (Given - Provider: Paloma Macedo RN)1756 (Given - Provider: Paloma Macedo RN) 0821 (Given - Provider: Paloma Macedo RN)1323 (Given - Provider: Paloma Macedo RN)1800 (Due) darbepoetin yuri (Aranesp) injection 100 mcg 100 mcg, subcutaneous, Weekly, First dose on Fri10/16/24 at 1115, If given IV, infuse over 1-3 minutes., Indications: anemia docusate sodium (Colace) capsule 100 mg 100 mg, oral, 2 times daily, First dose on Fri10/15/24 at 2100, Recovery & On Unit 0823 (Given - Provider: Suzy Barahona RN)2008 (Given - Provider: Finn Jenkins RN) 0803 (Given - Provider: Paloma Macedo RN)2112 (Not Given - Provider: Artem Pimentel RN - Reason: Patient/family refused) 0819 (Given - Provider: Paloma Macedo RN)2100 (Due) furosemide (Lasix) injection 80 mg (COMPLETED) 80 mg, intravenous, Once, On Fri10/20/24 at 0945, For 1 dose, Please give in between units of blood 1719 (Given - Provider: Paloma Macedo RN - Comment: blood transfusion) furosemide (Lasix) tablet 80 mg (CANCELED) 80 mg, oral, 2 times daily (morning and late afternoon), First dose on 10/18/24 at 1700 0823 (Given - Provider: Suzy Barahona RN)1652 (Given - Provider: Suzy Barahona RN) 0804 (Given - Provider: Paloma Macedo RN) furosemide (Lasix) tablet 80 mg 80 mg, oral, 2 times daily (morning and late afternoon), First dose (after last modification) on Brianna 10/21/24 at 0800 0820 (Given - Provider: Paloma Macedo RN)1630 (Given - Provider: Paloma Macedo, RN) insulin glargine (Lantus) injection 10 Units (CANCELED) 10 Units, subcutaneous, Daily, First dose on Fri10/16/24 at 0900, Long-acting insulin should be given regardless of PO intake. Consider dose reduction if concerned for NPO or glucose trending less than 100 mg/dL. 0823 (Given - Provider: Suzy Barahona RN) insulin glargine (Lantus) injection 8 Units 8 Units, subcutaneous, Daily, First dose (after last modification) on Fri10/20/24 at 0900, Long-acting insulin should be given regardless of PO intake. Consider dose reduction if concerned for NPO or glucose trending less than 100 mg/dL. 0822 (Given - Provider: Paloma Macedo RN) 0820 (Given - Provider: Paloma Macedo RN) insulin lispro injection 0-5 Units 0-5 Units, subcutaneous, 3 times daily before meals, First dose (after last modification) on Fri10/19/24 at 1100, Recovery & On Unit, Do not hold when patient is not eating, continue order as scheduled for hyperglycemia management. Insulin Lispro Corrective Scale #1 Hypoglycemia protocol Call LIP unit(s) if Blood Glucose is between 0 - 70 mg/dL 0 unit(s) if Blood glucose is between 71-150 1 unit(s) if Blood glucose is between 151-200 2 unit(s) if Blood glucose is between 201-250 3 unit(s) if Blood glucose is between 251-300 4 unit(s) if Blood glucose is between 301-350 5 unit(s) if Blood glucose is between 351-400 If blood glucose is greater than 400 mg/dL, give max insulin per sliding scale AND then contact provider. 1210 (Given - Provider: Suzy Barahona RN)1601 (Not Given - Provider: Suzy Barahona RN - Reason: Order parameters not met) 0841 (Not Given - Provider: Paloma Macedo RN - Reason: Order parameters not met)1202 (Not Given - Provider: Paloma Macedo RN - Reason: Order parameters not met)1615 (Not Given - Provider: Paloma Macedo RN - Reason: Order parameters not met) 0731 (Not Given - Provider: Paloma Macedo RN - Reason: Order parameters not met)1325 (Not Given - Provider: Paloma Macedo RN - Reason: Order parameters not met)1530 (Not Given - Provider: Paloma Macedo RN - Reason: Order parameters not met) insulin lispro injection 2 Units 2 Units, subcutaneous, 3 times daily before meals, First dose on Fri10/17/24 at 0830, Do not hold unless patient is eating <50% of meal or glucose is less than 90 mg/dL within 1 hour before meal. Administer 5 minutes before meal. 0822 (Given - Provider: Suzy Barahona RN)1210 (Given - Provider: Suzy Barahona RN)1652 (Given - Provider: Suzy Barahona RN) 0822 (Given - Provider: Paloma Macedo RN)1217 (Given - Provider: Paloma Macedo RN)1619 (Given - Provider: Paloma Macedo RN) 0820 (Given - Provider: Paloma Macedo RN)1323 (Given - Provider: Paloma Macedo RN)1548 (Given - Provider: Paloma Macedo RN) mycophenolate (Cellcept) capsule 1,000 mg 1,000 mg, oral, Every 12 hours, First dose on 10/16/24 at 1830, Recovery & On Unit 0632 (Given - Provider: Finn Jenkins RN)1806 (Given - Provider: Suzy Barahona RN) 0638 (Given - Provider: Finn Jenkins RN)1756 (Given - Provider: Paloma Macedo RN) 0644 (Given - Provider: Flora Ferreira RN)1830 (Due) NIFEdipine ER (Adalat CC) 24 hr tablet 30 mg 30 mg, oral, Daily before breakfast, First dose on Fri10/22/24 at 0700, Give on an empty stomach. Do not crush, chew, or split. pantoprazole (ProtoNix) EC tablet 40 mg 40 mg, oral, 2 times daily before meals, First dose on 10/16/24 at 0700, Recovery & On Unit, Do not crush, chew, or split. 0632 (Given - Provider: Finn Jenkins RN)1652 (Given - Provider: Suzy Barahona RN) 0638 (Given - Provider: Finn Jenkins RN)1619 (Given - Provider: Paloma Macedo RN) 0644 (Given - Provider: Flora Ferreira RN)1548 (Given - Provider: Paloma Macedo RN) polyethylene glycol (Glycolax, Miralax) packet 17 g 17 g, oral, 2 times daily, First dose on 10/16/24 at 2100 0823 (Given - Provider: Suzy Barahona RN)2008 (Given - Provider: Finn Jenkins RN) 805 (Not Given - Provider: Paloma Macedo RN - Reason: Patient/family refused)2111 (Not Given - Provider: Artem Pimentel RN - Reason: Patient/family refused) 826 (Not Given - Provider: Paloma Macedo RN - Reason: Patient/family refused)2099 (Due) predniSONE (Deltasone) tablet 20 mg 20 mg, oral, Daily, First dose on Fri10/19/24 at 0900, Recovery & On Unit 0823 (Given - Provider: Suzy Barahona RN) 0803 (Given - Provider: Paloma Macedo RN) 0819 (Given - Provider: Paloma Macedo RN) sevelamer carbonate (Renvela) tablet 800 mg 800 mg, oral, 3 times daily (morning, midday, late afternoon), First dose on 10/17/24 at 1200, Do not crush, chew, or split. 0823 (Given - Provider: Suzy Barahona RN)1210 (Given - Provider: Suzy Barahona RN)1652 (Given - Provider: Suzy Barahona RN) 0803 (Given - Provider: Paloma Macedo RN)1217 (Given - Provider: Paloma Macedo RN)1619 (Given - Provider: Paloma Macedo RN) 0820 (Given - Provider: Paloma Macedo RN)1322 (Given - Provider: Paloma Macedo RN)1630 (Given - Provider: Paloma Macedo RN) sulfamethoxazole-trimeth oprim (Bactrim) 400-80 mg per tablet 1 tablet 1 tablet, oral, Daily, First dose on 10/17/24 at 0900, Suspected Indication (Select all that apply): Surgical Prophylaxis, Indications: Surgical Prophylaxis 0823 (Given - Provider: Suzy Barahona RN) 0803 (Given - Provider: Paloma Macedo RN) 0819 (Given - Provider: Paloma Macedo, RN) tacrolimus (Prograf) capsule 1 mg 1 mg, oral, Every 12 hours scheduled (0630,1830), First dose (after last modification) on Brianna 10/21/24 at 0630, Recovery & On Unit 0644 (Given - Provider: Flora Ferreira RN)1830 (Due) tacrolimus (Prograf) capsule 2 mg (CANCELED) 2 mg, oral, Every 12 hours scheduled (0630,1830), First dose (after last modification) on Fri10/19/24 at 0630, Recovery & On Unit, On hold since Fri10/19/2024 at 1213 until manually unheld 0632 (Given - Provider: Finn Jenkins RN)1213 (Held by provider - Provider: Pauline Pittman APRN-EXHAUST EMISSIONS INSPECTOR - Reason: Other)1830 (Not Given - Provider: Suzy Barahona RN - Reason: See Provider Order) 0630 (Not Given - Provider: Paloma Macedo RN - Reason: See Provider Order)0931 (Unheld by provider - Provider: Pauline Pittman SIPHONER-EXHAUST EMISSIONS INSPECTOR) tamsulosin (Flomax) 24 hr capsule 0.4 mg 0.4 mg, oral, Daily, First dose on Fri10/19/24 at 0930, Give 30 minutes after the same mealtime each day. Capsules should be swallowed whole; do not crush, chew, or open. 1052 (Given - Provider: Suzy Barahona RN) 0803 (Given - Provider: Paloma Macedo RN) 0819 (Given - Provider: Paloma Macedo, RN) valGANciclovir (Valcyte) tablet 450 mg 450 mg, oral, Every 48 hours, First dose on 10/16/24 at 1045, Do not crush, chew, or split., Coverage: CMV, Infection Site: Prophylaxis 1024 (Given - Provider: Paloma Macedo, RN) PRN Medication Order 10/19/2024 10/20/2024 10/21/2024 acetaminophen (Tylenol) tablet 650 mg 650 mg, oral, Every 6 hours PRN, pain mild (1-3), first line, Starting on 10/17/24 at 1945, Recovery & On Unit, If ordered PRN for pain, nurse is permitted to administer this medication for higher pain scores based on patient preference? Yes dextrose 50 % injection 12.5 g 12.5 g, intravenous, Every 15 min PRN, For blood glucose 41 to 70 mg/dL, Starting on Fri10/15/24 at 1948, Recovery & On Unit, May repeat until blood glucose level reaches 100 mg/dL or greater. Push 2 - 3 mL/minute if patient has secure IV access. dextrose 50 % injection 25 g 25 g, intravenous, Every 15 min PRN, For blood glucose less than or equal to 40 mg/dL, Starting on Fri10/15/24 at 1948, Recovery & On Unit, May repeat until blood glucose level reaches 100 mg/dL or greater. Push 2 - 3 mL/minute if patient has secure IV access. glucagon (Glucagen) injection 1 mg 1 mg, intramuscular, Every 15 min PRN, blood glucose less than or equal to 40 mg/dL - see comments, For blood glucose less than or equal to 40 mg/dL and no IV access, Starting on Fri10/15/24 at 1948, Recovery & On Unit, Give until blood glucose is 100 mg/dL or greater. If patient DOES NOT HAVE secure IV access & patient is unconscious, NPO or is unable to eat or drink. glucagon (Glucagen) injection 1 mg 1 mg, intramuscular, Every 15 min PRN, blood glucose 41 to 70 mg/dL - see comments, For blood glucose 41 to 70 mg/dL and no IV access, Starting on Fri10/15/24 at 1948, Recovery & On Unit, Give until blood glucose is 100 mg/dL or greater. If patient DOES NOT HAVE secure IV access & patient is unconscious, NPO or is unable to eat or drink. hydrALAZINE (Apresoline) injection 10 mg 10 mg, intravenous, Every 6 hours PRN, SBP>170, Starting on Fri10/18/24 at 1327 1719 (Given - Provider: Paloma Macedo, NO)2211 (Given - Provider: Artem Pimentel RN) 0820 (Given - Provider: Paloma Macedo, NO) naloxone (Narcan) injection 0.2 mg 0.2 mg, intravenous, Every 5 min PRN, opioid reversal, Starting on Fri10/15/24 at 1945, Recovery [facility] On Unit, If respiratory rate is less than 8 breaths/minute or patient is difficult to arouse stop any narcotics and contact physician. Administer slow IV push. Repeat as ordered until patient's respiratory rate is greater than 12 breaths/minute. ondansetron (Zofran) injection 4 mg(Linked Group 1) 4 mg, intravenous, Every 8 hours PRN, nausea/vomiting, first line, Starting on Fri10/15/24 at 1945, Recovery & On Unit, 1st Line. Give IV if patient is unable to take orally. If inadequate response within 60 minutes, proceed to next-line agent for same PRN reason or contact provider if no further options ordered. When administering via IV Push, administer over 3-5 minutes. ondansetron ODT (Zofran-ODT) disintegrating tablet 4 mg(Linked Group 1) 4 mg, oral, Every 8 hours PRN, nausea/vomiting, first line, Starting on Fri10/15/24 at 1945, Recovery & On Unit, 1st Line. Patient should allow tablet to dissolve on tongue. Do not remove from blister pack until just before administering. If inadequate response within 60 minutes, proceed to next-line agent for same PRN reason or contact provider if no further options ordered. oxygen (O2) therapy inhalation, Continuous PRN - O2/gases, other, Starting on Fri10/15/24 at 1945, Recovery & On Unit, Titrate to maintain SpO2 greater than 92%. Wean to room air. , Device: Nasal Cannula, Rate in liters per minute: 1 LPM, Keep O2 Sat Above: 92% traMADol (Ultram) tablet 25 mg 25 mg, oral, Every 8 hours PRN, pain moderate (4-6), second line, Starting on Fri10/18/24 at 1214, If ordered PRN for pain, nurse is permitted to administer this medication for higher pain scores based on patient preference? Yes traMADol (Ultram) tablet 50 mg 50 mg, oral, Every 8 hours PRN, pain severe (7-10), first line, Starting on Fri10/18/24 at 1214, Max of 200 mg daily for patients with CrCrl < 30 mL/min., If ordered PRN for pain, nurse is permitted to administer this medication for higher pain scores based on patient preference? Yes 1838 (Given - Provider: Paloma Macedo RN) Linked Groups Order Group 1: ondansetron ODT (Zofran-ODT) disintegrating tablet 4 mgJump to med 4 mg, oral, Every 8 hours PRN, nausea/vomiting, first line, Starting on Fri10/15/24 at 1945, Recovery & On Unit, 1st Line. Patient should allow tablet to dissolve on tongue. Do not remove from blister pack until just before administering. If inadequate response within 60 minutes, proceed to next-line agent for same PRN reason or contact provider if no further options ordered. Or ondansetron (Zofran) injection 4 mgJump to med 4 mg, intravenous, Every 8 hours PRN, nausea/vomiting, first line, Starting on Fri10/15/24 at 1945, Recovery & On Unit, 1st Line. Give IV if patient is unable to take orally. If inadequate response within 60 minutes, proceed to next-line agent for same PRN reason or contact provider if no further options ordered. When administering via IV Push, administer over 3-5 minutes. Scheduled Medication Order 11/25/2024 11/26/2024 11/27/2024 amLODIPine (Norvasc) tablet 5 mg 5 mg, oral, Daily, First dose on [facility] 11/25/24 at 1645 1731 (Given - Provider: Elisha Quezada RN) 0939 (Given - Provider: Elzbieta Rock, NO) 0851 (Given - Provider: Paloma Macedo, NO) aspirin EC tablet 81 mg 81 mg, oral, Daily, First dose on Brianna 11/25/24 at 0900, Do not crush, chew, or split., Indications: cerebral thromboembolism prevention 0951 (Given - Provider: Elisha Quezada RN) 0939 (Given - Provider: Elzbieta Rock, NO) 0850 (Given - Provider: Paloma Macedo, NO) atorvastatin (Lipitor) tablet 40 mg 40 mg, oral, Daily, First dose on [facility] 11/25/24 at 0900, Indications: hypercholesterolemia 0952 (Given - Provider: Elisha Quezada RN) 0939 (Given - Provider: Elzbieta Rock, NO) 0850 (Given - Provider: Paloma Macedo, NO) calcitriol (Rocaltrol) capsule 0.25 mcg 0.25 mcg, oral, Daily, First dose on Brianna 11/25/24 at 0900, Indications: vitamin D deficiency 0952 (Given - Provider: Elisha Quezada RN) 0939 (Given - Provider: Elzbieta Pranav, RN) 0851 (Given - Provider: Paloma Macedo, RN) carvedilol (Coreg) tablet 25 mg 25 mg, oral, 2 times daily, First dose on Fri11/24/24 at 2130, Hold for SBP <110 or HR <60, Indications: hypertension 0950 (Given - Provider: Elisha Quezada RN)2038 (Given - Provider: Darrian Martinez, RN) 0939 (Given - Provider: Elzbieta Rock, NO)211 (Given - Provider: Jose Olivarez, RN) 0851 (Given - Provider: Paloma Macedo, RN)2100 (Due) cholecalciferol (Vitamin D-3) tablet 50 mcg 50 mcg, oral, Daily, First dose on Fri11/25/24 at 1215, Indications: vitamin D deficiency 1244 (Given - Provider: Elisha Quezada RN) 0601 (Given - Provider: Darrian Martinez RN) 0636 (Given - Provider: Jose Olivarez, RN) clotrimazole (Mycelex) amanda 10 mg 10 mg, Mouth/Throat, 3 times daily after meals, First dose on Fri11/25/24 at 0900, Do not chew. Let amanda dissolve completely. Do not eat or drink for 15 minutes after taking., Indications: oropharyngeal candidiasis 0952 (Given - Provider: Elisha Quezada RN)1244 (Given - Provider: Elisha Quezada RN)1814 (Given - Provider: Elisha Quezada RN) 0939 (Given - Provider: Elzbieta Rock, NO)1645 (Given - Provider: Elzbieta Rock RN)2109 (Given - Provider: Jose Olivarez, RN) 0850 (Given - Provider: Paloma Macedo, RN)1300 (Due)1800 (Due) dorzolamide-timoloL (Cosopt) 22.3-6.8 mg/mL ophthalmic solution 1 drop 1 drop, Both Eyes, 2 times daily, First dose on Fri11/24/24 at 2230, Indications: ocular hypertension 0051 (Not Given - Provider: Darrian Martinez RN - Reason: Medication not available)0952 (Given - Provider: Elisha Quezada RN)203 (Given - Provider: Darrian Martinez RN) 0939 (Given - Provider: Elzbieta Rock RN)2108 (Given - Provider: Jose Olivarez, RN) 0853 (Given - Provider: Paloma Macedo, RN)2100 (Due) furosemide (Lasix) tablet 40 mg 40 mg, oral, Daily, First dose on Fri11/25/24 at 0900, Indications: hypertension 0349 (Unheld by provider - Provider: Radha Pearce MD)0951 (Given - Provider: Elisha Quezada RN) 09 (Given - Provider: Elzbieta Rock RN) 0850 (Given - Provider: Paloma Macedo, NO) insulin glargine (Lantus) injection 8 Units 8 Units, subcutaneous, Daily, First dose on Fri11/25/24 at 0900, Long-acting insulin should be given regardless of PO intake. Consider dose reduction if concerned for NPO or glucose trending less than 100 mg/dL. 09 (Given - Provider: Elisha Quezada RN) 09 (Given - Provider: Elzbieta Rock RN) 0852 (Given - Provider: Paloma Macedo, NO) insulin lispro injection 0-10 Units 0-10 Units, subcutaneous, Every 4 hours, First dose (after last modification) on Fri11/26/24 at 1530, Do not hold when patient is not eating, continue order as scheduled for hyperglycemia management. Insulin Lispro Corrective Scale #2 Hypoglycemia protocol Call LIP unit(s) if Blood Glucose is between 0 - 70 mg/dL 0 unit(s) if Blood glucose is between 71-150 2 unit(s) if Blood glucose is between 151-200 4 unit(s) if Blood glucose is between 201-250 6 unit(s) if Bloodglucose is between 251-300 8 unit(s) if Blood glucose is between 301-350 10 unit(s) if Blood glucose is between 351-400 If blood glucose is greater than 400 mg/dL, give max insulin per sliding scale AND then contact provider. 1628 (Not Given - Provider: Elzbieta Rock RN - Reason: Order parameters not met - Comment: BG 104)2108 (Given - Provider: Jose Olivarez, RN)234 (Given - Provider: Jose Olivarez RN) 034 (Given - Provider: Jose Olivarez RN)0852 (Given - Provider: Paloma Macedo RN)1130 (Due)1530 (Due)1930 (Due)2330 (Due) insulin lispro injection 0-5 Units (CANCELED) 0-5 Units, subcutaneous, 3 times daily before meals, First dose on [facility] 11/25/24 at 0700, Do not hold when patient is not eating, continue order as scheduled for hyperglycemia management. Insulin Lispro Corrective Scale #1 Hypoglycemia protocol Call LIP unit(s) if Blood Glucose is between 0 - 70 mg/dL 0 unit(s) if Blood glucose is between 71-150 1 unit(s) if Blood glucose is between 151-200 2 unit(s) if Blood glucose is between 201-250 3 unit(s) if Bloodglucose is between 251-300 4 unit(s) if Blood glucose is between 301-350 5 unit(s) if Blood glucose is between 351-400 If blood glucose is greater than 400 mg/dL, give max insulin per sliding scale AND then contact provider. 0953 (Given - Provider: Elisha Quezada RN) insulin lispro injection 0-5 Units (CANCELED) 0-5 Units, subcutaneous, 4 times daily before meals and nightly, First dose (after last modification) on [facility] 11/25/24 at 1100, Do not hold when patient is not eating, continue order as scheduled for hyperglycemia management. Insulin Lispro Corrective Scale #1 Hypoglycemia protocol Call LIP unit(s) if Blood Glucose is between 0 - 70 mg/dL 0 unit(s) if Blood glucose is between 71-150 1 unit(s) if Blood glucose is between 151-200 2 unit(s) if Blood glucose is between 201-250 3 unit(s) if Bloodglucose is between 251-300 4 unit(s) if Blood glucose is between 301-350 5 unit(s) if Blood glucose is between 351-400 If blood glucose is greater than 400 mg/dL, give max insulin per sliding scale AND then contact provider. 1300 (Given - Provider: Elisha Quezada RN) insulin lispro injection 0-5 Units (CANCELED) 0-5 Units, subcutaneous, Every 4 hours, First dose (after last modification) on [facility] 11/25/24 at 1500, Do not hold when patient is not eating, continue order as scheduled for hyperglycemia management. Insulin Lispro Corrective Scale #1 Hypoglycemia protocol Call LIP unit(s) if Blood Glucose is between 0 - 70 mg/dL 0 unit(s) if Blood glucose is between 71-150 1 unit(s) if Blood glucose is between 151-200 2 unit(s) if Blood glucose is between 201-250 3 unit(s) if Bloodglucose is between 251-300 4 unit(s) if Blood glucose is between 301-350 5 unit(s) if Blood glucose is between 351-400 If blood glucose is greater than 400 mg/dL, give max insulin per sliding scale AND then contact provider. 1617 (Given - Provider: Elisha Quezada RN)2039 (Given - Provider: Darrian Martinez, RN) 0018 (Given - Provider: Darrian Martinez, RN)0422 (Given - Provider: Darrian Martinez RN)0741 (Given - Provider: Elzbieta Rock, NO) insulin lispro injection 3 Units 3 Units, subcutaneous, 3 times daily before meals, First dose (after last modification) on [facility] 11/25/24 at 1100, Do not hold unless patient is eating <50% of meal or glucose is less than 90 mg/dL within 1 hour before meal. Administer 5 minutes before meal. 1259 (Given - Provider: Elisha Quezada RN)1617 (Given - Provider: Elisha Quezada RN) 0742 (Given - Provider: Elzbieta Rock, NO)1607 (Not Given - Provider: Elzbieta Rock RN - Reason: Patient not available)1645 (Given - Provider: Elzbieta Rock, NO) 0852 (Given - Provider: Paloma Macedo RN)1100 (Due)1600 (Due) insulin lispro injection 5 Units (COMPLETED) 5 Units, subcutaneous, Once, On [facility] 11/25/24 at 0300, For 1 dose 0327 (Given - Provider: Darrian Martinez RN) insulin NPH (Isophane) (HumuLIN N,NovoLIN N) injection 6 Units (CANCELED) 6 Units, subcutaneous, Every 24 hours scheduled, First dose (after last modification) on [facility] 11/25/24 at 1400, For 2 doses, Co-administer with solumedrol 1404 (Given - Provider: Elisha Quezada RN) insulin NPH (Isophane) (HumuLIN N,NovoLIN N) injection 6 Units (COMPLETED) 6 Units, subcutaneous, Every morning, First dose (after last modification) on Fri11/26/24 at 0945, For 1 dose, Co-administer with solumedrol 0939 (Given - Provider: Elzbieta oRck, NO) insulin NPH (Isophane) (HumuLIN N,NovoLIN N) injection 6 Units (COMPLETED) 6 Units, subcutaneous, Once, On Fri11/26/24 at 1530, For 1 dose, Co-administer with solumedrol 1645 (Given - Provider: Elzbieta Rock RN) latanoprost (Xalatan) 0.005 % ophthalmic solution 1 drop 1 drop, Both Eyes, Nightly, First dose on Fri11/25/24 at 2100, Indications: ocular hypertension 0122 (Not Given - Provider: Darrian Martinez RN - Reason: Medication not available)210 (Given - Provider: Jose Olivarez RN) 2100 (Due) methylPREDNISolone sodium succinate (SOLU-Medrol) 250 mg in dextrose 5% 100 mL IV (COMPLETED) 250 mg, intravenous, at 104 mL/hr, Administer over 60 Minutes, Once, On Fri11/25/24 at 1400, For 1 dose 1404 (New Bag - Provider: Elisha Quezada RN)1507 (Stopped - Provider: Elisha Quezada RN) methylPREDNISolone sodium succinate (SOLU-Medrol) 250 mg in dextrose 5% 100 mL IV (COMPLETED) 250 mg, intravenous, at 104 mL/hr, Administer over 60 Minutes, Once, On Fri11/26/24 at 1130, For 1 dose 1646 (New Bag - Provider: Elzbieta Rock RN)1801 (Stopped - Provider: Elzbieta Rock RN) methylPREDNISolone sodium succinate (SOLU-Medrol) 500 mg in dextrose 5% 100 mL IV (COMPLETED) 500 mg, intravenous, at 108 mL/hr, Administer over 60 Minutes, Once, On Fri11/24/24 at 2230, For 1 dose 0048 (New Bag - Provider: Darrian Martinez RN)0144 (Stopped - Provider: Darrian Martinez RN) mycophenolate (Cellcept) capsule 1,000 mg 1,000 mg, oral, Every 12 hours, First dose (after last modification) on 11/27/24 at 2130, Indications: prevention of kidney transplant rejection 2129 (Due) mycophenolate (Cellcept) capsule 500 mg (CANCELED) 500 mg, oral, Every 12 hours, First dose on Fri11/24/24 at 2130, Indications: prevention of kidney transplant rejection 0952 (Given - Provider: Elisha Quezada RN)2037 (Given - Provider: Darrian Martinez RN) 0952 (Given - Provider: Elzbieta Rock, RN)2109 (Given - Provider: Jose Olivarez, RN) 0851 (Given - Provider: Paloma Macedo, RN) pantoprazole (ProtoNix) EC tablet 40 mg 40 mg, oral, Daily before breakfast, First dose on [facility] 11/25/24 at 0700, Do not crush, chew, or split., Indications: gastroesophageal reflux disease 0615 (Given - Provider: Darrian Martinez RN) 0601 (Given - Provider: Darrian Martinez RN) 0636 (Given - Provider: Jose Olivarez, RN) predniSONE (Deltasone) tablet 20 mg 20 mg, oral, Daily, First dose on 11/27/24 at 0915 0851 (Given - Provider: Paloma Macedo, RN) sulfamethoxazole-trimethoprim (Bactrim) 400-80 mg per tablet 1 tablet 1 tablet, oral, Daily, First dose on [facility] 11/25/24 at 0900, Suspected Indication (Select all that apply): Medical Prophylaxis, Indications: Medical Prophylaxis 0952 (Given - Provider: Elisha Quezada RN) 0938 (Given - Provider: Elzbieta Rock, NO) 0851 (Given - Provider: Paloma Macedo, RN) tacrolimus (Prograf) capsule 2 mg 2 mg, oral, Every 12 hours scheduled (0630,1830), First dose (after last modification) on 11/27/24 at 1830, Indications: prevention of kidney transplant rejection 1829 (Due) tacrolimus (Prograf) capsule 3 mg (CANCELED) 3 mg, oral, Every 12 hours scheduled (0630,1830), First dose on Fri11/24/24 at 2130, Indications: prevention of kidney transplant rejection 0615 (Given - Provider: Narayanan-Lien Martinez, RN)1814 (Given - Provider: Elisha Quezada, RN) 0601 (Given - Provider: Darrian Martinez RN)1803 (Given - Provider: Elzbieta Rock, NO) 0636 (Given - Provider: Jose Olivarez, NO) tamsulosin (Flomax) 24 hr capsule 0.4 mg 0.4 mg, oral, Daily, First dose on [facility] 11/25/24 at 0900, Give 30 minutes after the same mealtime each day. Capsules should be swallowed whole; do not crush, chew, or open., Indications: benign prostatic hyperplasia with lower urinary tract sx 0951 (Given - Provider: Elisha Quezada, RN) 0939 (Given - Provider: Elzbieta Rock, NO) 0850 (Given - Provider: Paloma Macedo, RN) valGANciclovir (Valcyte) tablet 450 mg 450 mg, oral, Every other day, First dose on [facility] 11/25/24 at 0900, Do not crush, chew, or split., Coverage: Virus NOS, Coverage: Post-transplant, Infection Site: Prophylaxis, Indications: prevention of cytomegalovirus disease 0950 (Given - Provider: Elisha Quezada RN) 0851 (Given - Provider: Paloma Macedo, RN) PRN Medication Order 11/25/2024 11/26/2024 11/27/2024 dextrose 50 % injection 12.5 g 12.5 g, intravenous, Every 15 min PRN, For blood glucose 41 to 70 mg/dL, Starting on Fri11/24/24 at 2107, May repeat until blood glucose level reaches 100 mg/dL or greater. Push 2 - 3 mL/minute if patient has secure IV access. dextrose 50 % injection 25 g 25 g, intravenous, Every 15 min PRN, For blood glucose less than or equal to 40 mg/dL, Starting on Fri11/24/24 at 2107, May repeat until blood glucose level reaches 100 mg/dL or greater. Push 2 - 3 mL/minute if patient has secure IV access. glucagon (Glucagen) injection 1 mg 1 mg, intramuscular, Every 15 min PRN, blood glucose less than or equal to 40 mg/dL - see comments, For blood glucose less than or equal to 40 mg/dL and no IV access, Starting on Fri11/24/24 at 2107, Give until blood glucose is 100 mg/dL or greater. If patient DOES NOT HAVE secure IV access & patient is unconscious, NPO or is unable to eat or drink. glucagon (Glucagen) injection 1 mg 1 mg, intramuscular, Every 15 min PRN, blood glucose 41 to 70 mg/dL - see comments, For blood glucose 41 to 70 mg/dL and no IV access, Starting on 11/24/24 at 2107, Give until blood glucose is 100 mg/dL or greater. If patient DOES NOT HAVE secure IV access & patient is unconscious, NPO or is unable to eat or drink. hydrALAZINE (Apresoline) tablet 25 mg 25 mg, oral, Every 8 hours PRN, For SBP >160, Starting on [facility] 11/25/24 at 1618 Scheduled Medication Order 12/04/2024 12/05/2024 12/06/2024 calcium gluconate 2 g in sodium chloride (iso) IV 100 mL (COMPLETED) 2 g, intravenous, at 600 mL/hr, Administer over 10 Minutes, Once, On Fri12/06/24 at 1655, For 1 dose 1739 (New Bag - Prov ider: Wade Santana RN)175 (Stopped - Provider: Wade Santana RN) furosemide (Lasix) injection 80 mg (COMPLETED) 80 mg, intravenous, Once, On Fri12/06/24 at 1720, For 1 dose 1738 (Given - Provid er: Wade Santana, NO) insulin regular (HumuLIN R,NovoLIN R) injection 5 Units (COMPLETED) 5 Units, intravenous, Once, On Fri12/06/24 at 1655, For 1 dose, Check blood glucose 1 hour after administration. 1738 (Given - Provid er: Wade Santana, NO) sodium bicarbonate 8.4 % (1 mEq/mL) 50 mEq (COMPLETED) 50 mEq, intravenous, Once, On Fri12/06/24 at 1655, For 1 dose 1739 (Given - Provid er: Wade Santana RN) sodium zirconium cyclosilicate (Lokelma) packet 10 g (COMPLETED) 10 g, oral, Once, On Fri12/06/24 at 1720, For 1 dose, Empty entire contents of packet(s) into 45 mL water. Stir well and administer immediately. If powder remains, rinse glass with water and administer. 1740 (Given - Provid er: Wade Santana RN) Scheduled Medication Order 12/07/2024 12/08/2024 12/09/2024 amLODIPine (Norvasc) tablet 5 mg 5 mg, oral, Daily, First dose on Fri12/07/24 at 0900, Indications: hypertension 0824 (Given - Provider: Shaina Fleming, NO) 0856 (Given - Provider: Ashleigh Ram RN) 0947 (Not Given - Provider: Shaina Fleming RN - Reason: Other - Comment: BP 101/68 held per team)1227 (AUG Hold - Provider: Automatic Transfer Provider - Reason: Unreviewed Transfer Orders)1406 (AUG Unhold - Provider: SIN Richard) aspirin EC tablet 81 mg 81 mg, oral, Daily, First dose on Fri12/07/24 at 0900, Do not crush, chew, or split., Indications: cerebral thromboembolism prevention 0824 (Given - Provider: Shaina Fleming RN) 0856 (Given - Provider: Ashleigh Ram RN) 0941 (Given - Provider: Shaina Fleming RN)1227 (MAR Hold - Provider: Automatic Transfer Provider - Reason: Unreviewed Transfer Orders)1406 (MAR Unhold - Provider: Sherron Acevedo APRN-OLIVERIO) atorvastatin (Lipitor) tablet 40 mg 40 mg, oral, Daily, First dose on Fri12/07/24 at 0900, Indications: hypercholesterolemia 0824 (Given - Provider: Shaina Fleming RN) 0856 (Given - Provider: Ashleigh Ram RN) 0942 (Given - Provider: Shaina Fleming RN)1227 (MAR Hold - Provider: Automatic Transfer Provider - Reason: Unreviewed Transfer Orders)1406 (MAR Unhold - Provider: SIN Richard) calcitriol (Rocaltrol) capsule 0.25 mcg 0.25 mcg, oral, Daily, First dose on Fri12/07/24 at 0900, Indications: vitamin D deficiency 0824 (Given - Provider: Shaina Fleming RN) 0857 (Given - Provider: Ashleigh Ram RN) 0954 (Given - Provider: Shaina Fleming RN)1227 (AUG Hold - Provider: Automatic Transfer Provider - Reason: Unreviewed Transfer Orders)1406 (AUG Unhold - Provider: Sherron Acevedo APRN-OLIVERIO) calcium carbonate (Tums) 500 mg (200 mg elemental) chewable tablet 1 tablet 1 tablet (500 mg of calcium carbonate), oral, 2 times daily, First dose on Fri12/09/24 at 1015 1125 (Given - Provider: Shaina Fleming RN)1227 (AUG Hold - Provider: Automatic Transfer Provider - Reason: Unreviewed Transfer Orders)1406 (MAR Unhold - Provider: Sherron Acevedo APRN-OLIVERIO)2100 (Due) calcium gluconate 2 g in sodium chloride (iso) IV 100 mL (COMPLETED) 2 g, intravenous, at 100 mL/hr, Administer over 1 Hours, Once, On Fri12/08/24 at 1115, For 1 dose 1149 (New Bag - Provider: Ashleigh Ram RN)1250 (Stopped - Provider: Ashleigh Ram RN) carvedilol (Coreg) tablet 25 mg 25 mg, oral, 2 times daily, First dose on Fri12/07/24 at 0015, Indications: hypertension 0025 (Given - Provider: Bridget Martinez RN)0824 (Given - Provider: Shaina Fleming RN)2030 (Given - Provider: Finn Jenkins RN) 0857 (Given - Provider: Ashleigh Ram, NO)2000 (Given - Provider: Darrian Martinez RN) 0947 (Not Given - Provider: Shaina Fleming RN - Reason: Other - Comment: Bp 101/68 held per team)1227 (AUG Hold - Provider: Automatic Transfer Provider - Reason: Unreviewed Transfer Orders)1406 (AUG Unhold - Provider: SIN Richard)2100 (Due) clotrimazole (Mycelex) amanda 10 mg 10 mg, Mouth/Throat, 3 times daily (morning, midday, late afternoon), First dose on Fri12/08/24 at 1200, Do not chew. Let amanda dissolve completely. Do not eat or drink for 15 minutes after taking. 1149 (Given - Provider: Ashleigh Ram RN)1649 (Given - Provider: Ashleigh Ram RN) 0942 (Given - Provider: Shaina Fleming RN)1227 (AUG Hold - Provider: Automatic Transfer Provider - Reason: Unreviewed Transfer Orders)1228 (Not Given - Provider: Shaina Fleming RN - Reason: Patient not available)1406 (AUG Unhold - Provider: Sherron Acevedo APRN-OLIVERIO)1754 (Given - Provider: Shaina Fleming RN) darbepoetin yuri (Aranesp) injection 100 mcg 100 mcg, subcutaneous, Weekly, First dose on Fri12/07/24 at 1030, If given IV, infuse over 1-3 minutes., Indications: ESRD on Dialysis 1109 (Given - Provider: Shaina Fleming RN) 1227 (AUG Hold - Provider: Automatic Transfer Provider - Reason: Unreviewed Transfer Orders)1406 (AUG Unhold - Provider: Sherron Acevedo APRN-OLIVERIO) furosemide (Lasix) tablet 80 mg 80 mg, oral, 2 times daily (morning and late afternoon), First dose on Fri12/08/24 at 1015 1149 (Given - Provider: Ashleigh Ram RN)1649 (Given - Provider: Ashleigh Ram RN) 0942 (Given - Provider: Shaina Fleming RN)1227 (AUG Hold - Provider: Automatic Transfer Provider - Reason: Unreviewed Transfer Orders)1406 (AUG Unhold - Provider: Sherron Acevedo APRN-OLIVERIO)1754 (Given - Provider: Shaina Fleming RN) heparin (porcine) injection 5,000 Units 5,000 Units, subcutaneous, Every 8 hours, First dose on Fri12/07/24 at 0030 0025 (Given - Provider: Bridget Martinez RN)0824 (Given - Provider: Shaina Fleming RN)1533 (Given - Provider: Shaina Fleming, NO) 0108 (Given - Provider: Finn Jenkins RN)0857 (Given - Provider: Ashleigh Ram RN)1649 (Given - Provider: Ashleigh Ram RN)2355 (Given - Provider: Darrian Martinez RN) 0941 (Given - Provider: Shaina Fleming RN)1227 (AUG Hold - Provider: Automatic Transfer Provider - Reason: Unreviewed Transfer Orders)1406 (AUG Unhold - Provider: Sherron Acevedo APRN-OLIVERIO)1754 (Given - Provider: Shaina Fleming RN) insulin glargine (Lantus) injection 10 Units 10 Units, subcutaneous, Every morning, First dose on Fri12/07/24 at 0900, Long-acting insulin should be given regardless of PO intake. Consider dose reduction if concerned for NPO or glucose trending less than 100 mg/dL. 0826 (Not Given - Provider: Shaina Fleming RN - Reason: NPO - Comment: BS 74. notified team and want to hold) 0857 (Given - Provider: Ashleigh Ram RN) 0938 (Given - Provider: Shaina Fleming RN)1227 (AUG Hold - Provider: Automatic Transfer Provider - Reason: Unreviewed Transfer Orders)1406 (AUG Unhold - Provider: Sherron Acevedo APRN-[employer]) insulin glargine (Lantus) injection 10 Units (COMPLETED) 10 Units, subcutaneous, Once, On Fri12/07/24 at 1415, For 1 dose, Do not hold basal insulin, contact provider if there is any concern for hypoglycemia. 1423 (Given - Provider: Shaina Fleming RN) insulin lispro injection 0-5 Units 0-5 Units, subcutaneous, Every 4 hours, First dose (after last modification) on Fri12/07/24 at 0015, Do not hold when patient is not eating, continue order as scheduled for hyperglycemia management. Insulin Lispro Corrective Scale #1 Hypoglycemia protocol Call LIP unit(s) if Blood Glucose is between 0 - 70 mg/dL 0 unit(s) if Blood glucose is between 71-150 1 unit(s) if Blood glucose is between 151-200 2 unit(s) if Blood glucose is between 201-250 3 unit(s) if Bloodglucose is between 251-300 4 unit(s) if Blood glucose is between 301-350 5 unit(s) if Blood glucose is between 351-400 If blood glucose is greater than 400 mg/dL, give max insulin per sliding scale AND then contact provider. 0025 (Given - Provider: Bridget Martinez RN)0457 (Not Given - Provider: Bridget Martinez RN - Reason: Order parameters not met)0816 (Not Given - Provider: Shaina Fleming RN - Reason: Order parameters not met)1212 (Not Given - Provider: Shaina Fleming RN - Reason: Order parameters not met)1523 (Given - Provider: Shaina Fleming RN)2115 (Given - Provider: Finn Jenkins RN) 0104 (Not Given - Provider: Finn Jenkins RN - Reason: Order parameters not met)0415 (Not Given - Provider: Finn Jenkins RN - Reason: Patient/family refused)0824 (Not Given - Provider: Ashleigh Ram RN - Reason: Order parameters not met)1148 (Given - Provider: Ashleigh Ram RN)1644 (Not Given - Provider: Ashleigh Ram RN - Reason: Order parameters not met)2000 (Given - Provider: Darrian Martinez RN - Comment: blood sugar 246mg/dl.)2355 (Not Given - Provider: Darrian Martinez RN - Reason: Order parameters not met) 0402 (Not Given - Provider: Darrian Martinez RN - Reason: Order parameters not met)0933 (Given - Provider: Shaina Fleming RN)1227 (MAR Hold - Provider: Automatic Transfer Provider - Reason: Unreviewed Transfer Orders)1228 (Not Given - Provider: Shaina Fleming RN - Reason: NPO - Comment: pt in OR)1406 (MAR Unhold - Provider: Sherron Acevedo, [employer] INSPECTOR)1751 (Given - Provider: Shaina Fleming RN)2014 (Due) insulin lispro injection 4 Units 4 Units, subcutaneous, 3 times daily before meals, First dose on Fri12/08/24 at 1100, Do not hold unless patient is eating <50% of meal or glucose is less than 90 mg/dL within 1 hour before meal. Administer 5 minutes before meal. 1148 (Given - Provider: Ashleigh Ram RN)1649 (Given - Provider: Ashleigh Ram RN) 0933 (Not Given - Provider: Shaina Fleming RN - Reason: NPO)1121 (Not Given - Provider: Shaina Fleming RN - Reason: NPO)1227 (AUG Hold - Provider: Automatic Transfer Provider - Reason: Unreviewed Transfer Orders)1406 (MAR Unhold - Provider: Sherron Acevedo APRN-OLIVERIO)1750 (Given - Provider: Shaina Fleming, NO) magnesium sulfate 2 g in sterile water for injection 50 mL (COMPLETED) 2 g, intravenous, at 25 mL/hr, Administer over 2 Hours, Once, On Fri12/09/24 at 1430, For 1 dose 1445 (New Bag - Provider: Shaina Fleming, RN)1657 (Stopped - Provider: Shaina Fleming RN) mycophenolate (Myfortic) EC tablet 360 mg 360 mg, oral, Every 12 hours scheduled (0630,1830), First dose on Fri12/07/24 at 0630, Do not crush, chew, or split. 0603 (Given - Provider: Bridget Martinez RN)1816 (Given - Provider: Shaina Fleming RN) 0618 (Given - Provider: Finn Jenkins, NO)1826 (Given - Provider: Ashleigh Ram, RN) 0639 (Given - Provider: Yaneth Kaiser, NO)1227 (MAR Hold - Provider: Automatic Transfer Provider - Reason: Unreviewed Transfer Orders)1406 (MAR Unhold - Provider: Sherron Acevedo APRN-OLIVERIO)1830 (Given - Provider: Shaina Fleming, NO) predniSONE (Deltasone) tablet 10 mg 10 mg, oral, Daily, First dose on Fri12/07/24 at 0900, Indications: prevention of kidney transplant rejection, Immunosuppresion therapy 0824 (Given - Provider: Shaina Fleming, NO) 0856 (Given - Provider: Ashleigh Ram, NO) 0942 (Given - Provider: Shaina Fleming, NO)1227 (AUG Hold - Provider: Automatic Transfer Provider - Reason: Unreviewed Transfer Orders)1406 (MAR Unhold - Provider: Sherron Acevedo APRN-OLIVERIO) sodium zirconium cyclosilicate (Lokelma) packet 10 g 10 g, oral, Daily, First dose on Fri12/07/24 at 0900, Give with lunch, On hold since Fri12/08/2024 at 0938 until manually unheld 0824 (Not Given - Provider: Shaina Fleming RN - Reason: Contraindicated - Comment: hold per team kt 3.1) 0938 (Held by provider - Provider: Pauline Pittman APRN-OLIVERIO - Reason: Other)1200 (Dose Auto Held - Provider: Pauline Pittman APRN-OLIVERIO) 1200 (Not Given - Provider: Shaina Fleming RN - Reason: Other - Comment: held by ) tacrolimus (Prograf) capsule 2 mg (COMPLETED) 2 mg, oral, Once, On Fri12/07/24 at 0015, For 1 dose 0025 (Given - Provider: Bridget Martinez RN) tacrolimus ER (Envarsus XR) tablet ER 3 mg (CANCELED) 3 mg, oral, Daily, First dose on Fri12/07/24 at 0900, Do not crush, chew, or split., Indications: prevention of kidney transplant rejection 0834 (Given - Provider: Shaina Fleming RN) tacrolimus ER (Envarsus XR) tablet ER 3 mg 3 mg, oral, User specified (Daily), First dose (after last modification) on Fri12/08/24 at 0630, Do not crush, chew, or split., Indications: prevention of kidney transplant rejection 0618 (Given - Provider: Finn Jenkins, RN) 0643 (Given - Provider: Yaneth Kaiser, NO)1227 (MAR Hold - Provider: Automatic Transfer Provider - Reason: Unreviewed Transfer Orders)1406 (MAR Unhold - Provider: Sherron Acevedo APRN-[employer] EM[employer] INSPECTOR) tamsulosin (Flomax) 24 hr capsule 0.4 mg 0.4 mg, oral, Daily, First dose on Fri12/07/24 at 0900, Give 30 minutes after the same mealtime each day. Capsules should be swallowed whole; do not crush, chew, or open., Indications: benign prostatic hyperplasia with lower urinary tract sx 0824 (Given - Provider: Shaina Fleming RN) 0856 (Given - Provider: Ashleigh Ram RN) 0942 (Given - Provider: Shaina Fleming RN)1227 (AUG Hold - Provider: Automatic Transfer Provider - Reason: Unreviewed Transfer Orders)1406 ([facility] Unhold - Provider: SIN Richard) valGANciclovir (Valcyte) tablet 450 mg 450 mg, oral, Every other day, First dose on Fri12/07/24 at 0900, Do not crush, chew, or split., Coverage: CMV, Infection Site: Prophylaxis, Indications: prevention of cytomegalovirus disease 0824 (Given - Provider: Shaina Fleming RN) 0942 (Given - Provider: Shaina Fleming RN)1227 ([facility] Hold - Provider: Automatic Transfer Provider - Reason: Unreviewed Transfer Orders)1406 ([facility] Unhold - Provider: SIN Richard) Continuous Medication Order 12/07/2024 12/08/2024 12/09/2024 lactated Ringer's infusion () 75 mL/hr, intravenous, Continuous, Starting on Fri12/07/24 at 1100, For 1 day 1110 (New Bag - Provider: Shaina Fleming RN) 1140 (Stopped - Provider: Ashleigh Ram RN - Comment: [Order ends at this time. Document the following action when infusion is complete: Stopped]) lactated Ringer's infusion (CANCELED) 50 mL/hr, intravenous, Continuous, Starting on Fri12/09/24 at 0700, For 1 day 0944 (New Bag - Provider: Shaina Fleming RN)1407 (Stopped - Provider: Shaina Fleming RN - Comment: [Order ends at this time. Document the following action when infusion is complete: Stopped]) PRN Medication Order 12/07/2024 12/08/2024 12/09/2024 acetaminophen (Tylenol) tablet 650 mg 650 mg, oral, Every 6 hours PRN, pain mild (1-3), first line, Starting on Fri12/06/24 at 2343, If ordered PRN for pain, nurse is permitted to administer this medication for higher pain scores based on patient preference? Yes, Indications: pain 1227 ([facility] Hold - Provider: Automatic Transfer Provider - Reason: Unreviewed Transfer Orders)1406 ([facility] Unhold - Provider: SIN Richard) dextrose 50 % injection 12.5 g 12.5 g, intravenous, Every 15 min PRN, For blood glucose 41 to 70 mg/dL, Starting on Fri12/06/24 at 2343, May repeat until blood glucose level reaches 100 mg/dL or greater. Push 2 - 3 mL/minute if patient has secure IV access. 1227 ([facility] Hold - Provider: Automatic Transfer Provider - Reason: Unreviewed Transfer Orders)1406 ([facility] Unhold - Provider: SIN Richard) dextrose 50 % injection 25 g 25 g, intravenous, Every 15 min PRN, For blood glucose less than or equal to 40 mg/dL, Starting on Fri12/06/24 at 2343, May repeat until blood glucose level reaches 100 mg/dL or greater. Push 2 - 3 mL/minute if patient has secure IV access. 1227 ([facility] Hold - Provider: Automatic Transfer Provider - Reason: Unreviewed Transfer Orders)1406 ([facility] Unhold - Provider: SIN Richard) fentaNYL PF (Sublimaze) injection (COMPLETED) intravenous, Once PRN Procedure, Starting on Fri12/07/24 at 1310, For 1 dose, Intraprocedure 1310 (Given - Provider: Vaibhav Arias RN) glucagon (Glucagen) injection 1 mg 1 mg, intramuscular, Every 15 min PRN, blood glucose less than or equal to 40 mg/dL - see comments, For blood glucose less than or equal to 40 mg/dL and no IV access, Starting on Fri12/06/24 at 2343, Give until blood glucose is 100 mg/dL or greater. If patient DOES NOT HAVE secure IV access & patient is unconscious, NPO or is unable to eat or drink. 1227 ([facility] Hold - Provider: Automatic Transfer Provider - Reason: Unreviewed Transfer Orders)1406 ([facility] Unhold - Provider: SIN Richard) glucagon (Glucagen) injection 1 mg 1 mg, intramuscular, Every 15 min PRN, low blood sugar - see comments, For blood glucose less than or equal to 70 mg/dL and no IV access, Starting on Fri12/06/24 at 2343, Give until blood glucose is 100 mg/dL or greater. If patient DOES NOT HAVE secure IV access & patient is unconscious, NPO or is unable to eat or drink. 1227 (AUG Hold - Provider: Automatic Transfer Provider - Reason: Unreviewed Transfer Orders)1406 (AUG Unhold - Provider: SIN Richard) glucagon (Glucagen) injection 1 mg 1 mg, intramuscular, Every 15 min PRN, blood glucose 41 to 70 mg/dL - see comments, For blood glucose 41 to 70 mg/dL and no IV access, Starting on Fri12/06/24 at 2346, Give until blood glucose is 100 mg/dL or greater. If patient DOES NOT HAVE secure IV access & patient is unconscious, NPO or is unable to eat or drink. 1227 (AUG Hold - Provider: Automatic Transfer Provider - Reason: Unreviewed Transfer Orders)1406 ([facility] Unhold - Provider: SIN Richard) lidocaine 2 % mucosal jelly (Uro-Jet) (CANCELED) As needed, Starting on Fri12/09/24 at 1306, Intraprocedure 1312 (Given - Provid er: Geovanna Brothers MD) loperamide (Imodium) capsule 2 mg 2 mg, oral, 4 times daily PRN, diarrhea, Starting on Fri12/08/24 at 0754 1227 (AUG Hold - Provider: Automatic Transfer Provider - Reason: Unreviewed Transfer Orders)1406 ([facility] Unhold - Provider: SIN Richard) midazolam (Versed) injection (COMPLETED) intravenous, Once PRN Procedure, Starting on Fri12/07/24 at 1310, For 1 dose, Intraprocedure 1310 (Given - Provider: Vaibhav Arias, NO) Scheduled Medication Order 12/19/2024 12/20/2024 12/21/2024 amLODIPine (Norvasc) tablet 10 mg 10 mg, oral, Daily, First dose (after last modification) on Fri12/15/24 at 0900, Indications: hypertension 0849 (Given - Provider: Jasper Morin, NO) 0818 (Given - Provider: Ariel Potter, NO) 0925 (Given - Provider: Ariel Potter, NO) aspirin EC tablet 81 mg 81 mg, oral, Daily, First dose on Fri12/14/24 at 1930, Do not crush, chew, or split., Indications: cerebral thromboembolism prevention 0849 (Given - Provider: Jasper Morin RN) 0819 (Given - Provider: Ariel Potter RN) 0925 (Given - Provider: Ariel Potter RN) atorvastatin (Lipitor) tablet 40 mg 40 mg, oral, Daily, First dose on Fri12/14/24 at 1929, Indications: hypercholesterolemia 0849 (Given - Provider: Jasper Morin RN) 0818 (Given - Provider: Ariel Potter RN) 0925 (Given - Provider: Ariel Potter RN) calcitriol (Rocaltrol) capsule 0.25 mcg 0.25 mcg, oral, Daily, First dose on Fri12/14/24 at 2014, Indications: vitamin D deficiency 0852 (Given - Provider: Jasper Morin RN) 0817 (Given - Provider: Ariel Potter RN) 0925 (Given - Provider: Ariel Potter RN) calcium carbonate (Tums) 500 mg (200 mg elemental) chewable tablet 1 tablet 1 tablet, oral, 2 times daily, First dose on Fri12/14/24 at 2099, Indications: hypocalcemia 0849 (Given - Provider: Jasper Morin RN)2016 (Given - Provider: Darrian Martinez RN) 0818 (Given - Provider: Ariel Potter RN)2054 (Given - Provider: Elva Salas, NO) 0925 (Given - Provider: Ariel Potter, NO)2099 (Due) carvedilol (Coreg) tablet 25 mg 25 mg, oral, 2 times daily, First dose on Fri12/14/24 at 2099, Indications: hypertension 0849 (Given - Provider: Jasper Morin RN)2016 (Given - Provider: Darrian Martinez RN) 0817 (Given - Provider: Ariel Potter RN)2054 (Given - Provider: Elva Salas, NO) 0925 (Given - Provider: Ariel Potter RN)2099 (Due) clotrimazole (Mycelex) amanda 10 mg 10 mg, Mouth/Throat, 3 times daily after meals, First dose on 7/8/25 at 1930, Do not chew. Let amanda dissolve completely. Do not eat or drink for 15 minutes after taking., Indications: oropharyngeal candidiasis 0848 (Given - Provider: Jasper Morin RN)1307 (Given - Provider: Jasper Morin RN)1626 (Given - Provider: Jasper Morin RN) 0817 (Given - Provider: Ariel Potter RN)1329 (Given - Provider: Ariel Potter RN)1822 (Given - Provider: Ariel Potter RN) 0925 (Given - Provider: Ariel Potter RN)1300 (Due)1800 (Due) darbepoetin yuri (Aranesp) injection 200 mcg (COMPLETED) 200 mcg, subcutaneous, Once, On Fri12/20/24 at 1000, For 1 dose, If given IV, infuse over 1-3 minutes., Indications: anemia 1326 (Given - Provider: Ariel Potter RN) dextrose 50 % injection 25 g (COMPLETED)(Linked Group 1) 25 g, intravenous, Administer over 5 Minutes, Once, On Fri12/20/24 at 0915, For 1 dose, Administer immediately after insulin IV given. 0926 (Given - Provider: Ariel Potter RN) furosemide (Lasix) tablet 40 mg 40 mg, oral, 2 times daily (morning and late afternoon), First dose on Fri12/15/24 at 0800, Indications: edema, hypertension, On hold since Fri12/14/2024 at 1906 until manually unheld 0800 (Not Given - Provider: Jasper Morin RN - Reason: See Provider Order)1700 (Not Given - Provider: Jasper Morin RN - Reason: See Provider Order) 0800 (Not Given - Provider: Ariel Potter RN - Reason: See Provider Order)1700 (Not Given - Provider: Ariel Potter RN - Reason: See Provider Order) 0800 (Not Given - Provider: Ariel Potter RN - Reason: See Provider Order)1700 (Dose Auto Held) heparin (porcine) injection 5,000 Units 5,000 Units, subcutaneous, Every 8 hours scheduled, First dose on Fri12/14/24 at 2200 0634 (Given - Provider: Darrian Martinez RN)1308 (Given - Provider: Jasper Morin, NO)2104 (Given - Provider: Darrian Martinez, RN) 0605 (Given - Provider: Darrian Martinez, RN)1514 (Given - Provider: Ariel Potter RN) 0027 (Given - Provider: Nona Knutson, RN)0623 (Given - Provider: Nona Knutson, RN)1400 (Due)2200 (Due) insulin degludec (Tresiba) injection 10 Units 10 Units, subcutaneous, Every morning, First dose on Fri12/15/24 at 0900, Indications: type 1 diabetes mellitus, type 2 diabetes mellitus, On hold since Fri12/14/2024 at 1906 until manually unheld 0900 (Not Given - Provider: Jasper Morin RN - Reason: See Provider Order) 0900 (Not Given - Provider: Ariel Potter RN - Reason: See Provider Order) 0900 (Not Given - Provider: Ariel Potter RN - Reason: See Provider Order) insulin glargine (Lantus) injection 10 Units 10 Units, subcutaneous, Every 24 hours, First dose (after last modification) on Fri12/16/24 at 0900, please give weight based 0.2u/kg dose per protocol 0850 (Given - Provider: Jasper Morin RN) 0750 (Given - Provider: Ariel Potter RN) 0926 (Given - Provider: Ariel Potter RN) insulin lispro injection 0-5 Units 0-5 Units, subcutaneous, 3 times daily before meals, First dose on Fri12/15/24 at 0700, Do not hold when patient is not eating, continue order as scheduled for hyperglycemia management. Insulin Lispro Corrective Scale #1 Hypoglycemia protocol Call LIP unit(s) if Blood Glucose is between 0 - 70 mg/dL 0 unit(s) if Blood glucose is between 71-150 1 unit(s) if Blood glucose is between 151-200 2 unit(s) if Blood glucose is between 201-250 3 unit(s) if Bloodglucose is between 251-300 4 unit(s) if Blood glucose is between 301-350 5 unit(s) if Blood glucose is between 351-400 If blood glucose is greater than 400 mg/dL, give max insulin per sliding scale AND then contact provider. 0849 (Given - Provider: Jasper Morin RN)1307 (Given - Provider: Jasper Morin RN)1626 (Given - Provider: Jasper Morin RN) 0747 (Given - Provider: Ariel Potter RN)1238 (Not Given - Provider: Ariel Potter RN - Reason: Order parameters not met - Comment: bs 148)1818 (Not Given - Provider: Ariel Potter RN - Reason: See Provider Order) 0926 (Given - Provider: Ariel Potter RN)1100 (Due)1600 (Due) insulin lispro injection 7 Units (CANCELED) 7 Units, subcutaneous, 3 times daily before meals, First dose (after last modification) on Fri12/17/24 at 1100 0849 (Given - Provider: Jasper Morin RN)1309 (Given - Provider: Jasper Morin RN) insulin lispro injection 9 Units 9 Units, subcutaneous, 3 times daily before meals, First dose (after last modification) on Fri12/19/24 at 1600 1626 (Given - Provider: Jasper Morin RN) 0748 (Given - Provider: Ariel Potter RN)1326 (Given - Provider: Ariel Potter RN)1822 (Given - Provider: Ariel Potter RN) 0927 (Given - Provider: Ariel Potter RN)1100 (Due)1600 (Due) insulin regular (HumuLIN R,NovoLIN R) injection 10 Units (COMPLETED)(Linked Group 1) 10 Units, intravenous, Administer over 1 Minutes, Once, On Fri12/20/24 at 0915, For 1 dose, Indications: hyperkalemia 0925 (Given - Provider: Ariel Potter RN) magnesium sulfate 4 g in sterile water for injection 100 mL (COMPLETED) 4 g, intravenous, at 25 mL/hr, Administer over 4 Hours, Once, On Fri12/19/24 at 0915, For 1 dose 0952 (New Bag - Provider: Jasper Morin, NO)1352 (Stopped - Provider: Jasper Morin RN) mycophenolate (Myfortic) EC tablet 360 mg 360 mg, oral, Every 12 hours scheduled (0630,1830), First dose on Fri12/14/24 at 1930, Do not crush, chew, or split., Indications: prevention of kidney transplant rejection 0634 (Given - Provider: Darrian Martinez RN)1757 (Given - Provider: Jasper Morin RN) 0605 (Given - Provider: Darrian Martinez RN)1822 (Given - Provider: Ariel Potter RN) 0623 (Given - Provider: Nona Knutson, NO)1830 (Due) pantoprazole (ProtoNix) EC tablet 40 mg 40 mg, oral, Daily before breakfast, First dose on Fri12/15/24 at 0700, Do not crush, chew, or split., Indications: gastroesophageal reflux disease 0634 (Given - Provider: Darrian Martinez RN) 0605 (Given - Provider: Darrian Martinez RN) 0623 (Given - Provider: Nona Knutson RN) predniSONE (Deltasone) tablet 5 mg 5 mg, oral, Daily, First dose (after last modification) on Fri12/17/24 at 0900, Indications: prevention of kidney transplant rejection, Immunosuppresion therapy 0849 (Given - Provider: Jasper Morin RN) 0817 (Given - Provider: Ariel Potter RN) 0925 (Given - Provider: Ariel Potter RN) sodium bicarbonate tablet 1,300 mg 1,300 mg, oral, 3 times daily, First dose (after last modification) on Fri12/19/24 at 0900 0848 (Given - Provider: Jasper Morin RN)1503 (Given - Provider: Jasper Morin RN)2017 (Given - Provider: Darrian Martinez RN) 0818 (Given - Provider: Ariel Potter RN)1514 (Given - Provider: Ariel Potter RN)2055 (Given - Provider: Elva Salas RN) 0925 (Given - Provider: Ariel Potter RN)1500 (Due)2100 (Due) sodium zirconium cyclosilicate (Lokelma) packet 10 g 10 g, oral, Every 8 hours, First dose on Fri12/20/24 at 0915, For 6 doses, Empty entire contents of packet(s) into 45 mL water. Stir well and administer immediately. If powder remains, rinse glass with water and administer. 09 (Given - Provider: Ariel Potter RN)1821 (Given - Provider: Ariel Potter RN) 222 (Given - Provider: Nona Knutson RN)09 (Given - Provider: Ariel Potter RN)1715 (Due) sulfamethoxazole-trimethoprim (Bactrim) 400-80 mg per tablet 1 tablet 1 tablet, oral, Daily, First dose on Fri12/14/24 at 1930, Suspected Indication (Select all that apply): Medical Prophylaxis, Indications: Medical Prophylaxis 0849 (Given - Provider: Jasper Morin RN) 0817 (Given - Provider: Ariel Potter RN) 0925 (Given - Provider: Ariel Potter RN) tacrolimus ER (Envarsus XR) tablet ER 4 mg (CANCELED) 4 mg, oral, Daily, First dose (after last modification) on Fri12/19/24 at 0630, Do not crush, chew, or split. 0634 (Given - Provider: Darrian Martinez RN) 0605 (Given - Provider: Darrian Martinez RN) tacrolimus ER (Envarsus XR) tablet ER 5 mg 5 mg, oral, Daily, First dose (after last modification) on Fri12/21/24 at 0630, Do not crush, chew, or split. 0623 (Given - Provider: Nona Knutson RN) tamsulosin (Flomax) 24 hr capsule 0.4 mg 0.4 mg, oral, Daily, First dose on Fri12/14/24 at 1930, Give 30 minutes after the same mealtime each day. Capsules should be swallowed whole; do not crush, chew, or open., Indications: benign prostatic hyperplasia with lower urinary tract sx 0849 (Given - Provider: Jasper Morin RN) 0817 (Given - Provider: Ariel Potter RN) 0925 (Given - Provider: Ariel Potter RN) valGANciclovir (Valcyte) tablet 450 mg 450 mg, oral, Every other day, First dose on Fri12/15/24 at 0900, Do not crush, chew, or split., Coverage: CMV, Infection Site: Prophylaxis, Indications: prevention of cytomegalovirus disease 0849 (Given - Provider: Jasper Morin RN) 0925 (Given - Provider: Ariel Potter RN) Continuous Medication Order 12/19/2024 12/20/2024 12/21/2024 dextrose 10 % in water (D10W) infusion (CANCELED)(Linked Group 1) 50 mL/hr, intravenous, Continuous, Starting on Fri12/20/24 at 0915, For 6 hours, Check blood glucose every hour for 6 hours., Indications: hyperkalemia 0933 (New Bag - Provider: Ariel Potter RN)1045 (Stopped - Provider: Ariel Potter RN - Comment: [Order ends at this time. Document the following action when infusion is complete: Stopped]) sodium bicarbonate 1 mEq/mL (8.4 %) 150 mEq in dextrose 5% 1,150 mL infusion () 100 mL/hr, intravenous, Continuous, Starting on Fri12/20/24 at 1015, For 10 hours, For total of 1 L 1049 (New Bag - Provider: Ariel Potter RN)2051 (Stopped - Provider: Elva Salas RN - Comment: [Order ends at this time. Document the following action when infusion is complete: Stopped]) PRN Medication Order 12/19/2024 12/20/2024 12/21/2024 acetaminophen (Tylenol) tablet 487.5 mg 487.5 mg (rounded from 500 mg), oral, Every 6 hours PRN, pain mild (1-3), first line, Starting on Fri12/14/24 at 1906, If ordered PRN for pain, nurse is permitted to administer this medication for higher pain scores based on patient preference? Yes, Indications: pain hydrALAZINE (Apresoline) injection 10 mg 10 mg, intravenous, Every 6 hours PRN, SBP>170, Starting on Fri12/15/24 at 0736 Linked Groups Order Group 1: insulin regular (HumuLIN R,NovoLIN R) injection 10 Units (COMPLETED)Jump to med 10 Units, intravenous, Administer over 1 Minutes, Once, On Fri12/20/24 at 0915, For 1 dose, Indications: hyperkalemia Followed by dextrose 50 % injection 25 g (COMPLETED)Jump to med 25 g, intravenous, Administer over 5 Minutes, Once, On Fri12/20/24 at 0915, For 1 dose, Administer immediately after insulin IV given. Followed by dextrose 10 % in water (D10W) infusion (CANCELED)Jump to med 50 mL/hr, intravenous, Continuous, Starting on Fri12/20/24 at 0915, For 6 hours, Check blood glucose every hour for 6 hours., Indications: hyperkalemia FOR RECORDS PERTAINING TO PATIENTS WHO ARE OR HAVE BEEN ENROLLED IN A CHEMICAL DEPENDENCY/SUBSTANCEABUSE PROGRAM, SOME INFORMATION MAY BE OMITTED. This clinical summary was aggregated from multiple sources. Caution should be exercised in using it in the provision of clinical care. This summary normalizes information from multiple sources, and as a consequence, information in this document may materially change the coding, format and clinical context of patient data. In addition, data may be omitted in some cases. CLINICAL DECISIONS SHOULD BE BASED ON THE PRIMARY CLINICAL RECORDS. [facility] [facility] provides no warranty or guarantee of the accuracy or completeness of information in this document.
[2024-12-28] VITALS (10 sets, daily range): BP systolic 103–139; BP diastolic 55–79; PULSE 75–82; RESP 16–17; TEMP 36.3–36.7; O2SAT 100
[2024-12-28] MEDS: Smz/Tmp Ds Tablet 0.5 TABLET PO (08:17)
[2024-12-28] MEDS: Insulin Glargine-YFGN 100 UNIT/ML Pen 10 UNIT SC (08:18)
[2024-12-28] MEDS: Dorzolamide HCL/Timolol 10 ml Bottle 1 DRP OPHTHALMIC (08:20)
--- NOTE | 2024-12-28 11:16 | DCINST_ITS ---
Discharge Instructions DC O2, CPAP, BIPAP needs Home O2 Discharge instructions: No Dressing / Incision Discharge Activity: Return to Normal Activity Dressing / Incision Call your doctor if you observe: Fever of 101 or Higher, Shortness of breath, Dizziness, Fainting spells, Swelling in the ankles, Chest pain and Increased palpitations (irregular heartbeat) Follow Up Care Test Results: Test results from this visit will be discussed in further detail at your follow- up appointment, if applicable. Discharge Plan Admission Admit Date/Time: 12/27/24 20:21 Attending Provider: Stanley Hendricks Primary Care Provider: Peter Coronado Consulting Providers: Jessie No Discharge Orders/Prescriptions Prescriptions: Continued latanoprost 1 DROP bottle 1 drp EACH EYE QHS hydralazine 100 MG tablet 100 mg PO TID aspirin 81 MG tablet 81 mg PO DAILY@0800 0RF atorvastatin 40 mg tablet 40 mg PO QHS furosemide 40 mg tablet 40 mg PO BID clotrimazole 10 mg alva 10 mg mucous membrane TID valganciclovir 450 mg tablet 450 mg PO DAILY carvedilol 25 mg tablet 25 mg PO BID sulfamethoxazole-trimethoprim 400-80 mg tablet 1 tab PO DAILY mycophenolate mofetil 250 mg capsule 750 mg PO Q12H prednisone 5 mg tablet 5 mg PO Q6H amlodipine 5 mg tablet 5 mg PO BID tamsulosin 0.4 mg capsule 0.4 mg PO DAILY pantoprazole 40 mg tablet,delayed release (DR/EC) 40 mg PO DAILY dorzolamide-timolol 22.3-6.8 mg/mL drops 1 drp ophthalmic (eye) BID tacrolimus 1 mg capsule 3 mg PO BID calcitriol 0.25 mcg capsule 0.25 mcg PO DAILY insulin aspart U-100 100 unit/mL (3 mL) insulin pen 2 unit SUBCUT TID Patient Comments: Inject 3 Units under the skin 3 times a day before meals. Inject 2 units for breakfast, lunch, and dinner. Check blood sugar & follow sliding scale. 0 unit(s) if Blood glucose is between 71-150; 1 unit(s) for 151-200; 2 unit(s) for 201-250; 3 unit(s) for 251-300; 4 unit(s) for 301-350; 5 unit(s) for 351-400 (up to 50 units/day) cholecalciferol (vitamin D3) 50 mcg (2,000 unit) capsule 50 mcg PO DAILY Rx Instructions: AM Dialyvite 800-Ultra D 0.8-2,000 mg-unit tablet 1 tab PO DAILY insulin degludec 100 unit/mL (3 mL) insulin pen 10 unit subcut DAILY Rx Instructions: AM Referrals / Follow Up: Peter Coronado MD [Primary Care Provider] - Within 1 Week Disposition Disposition (needs filled in before D/C Order can be placed): Home, Self Care
[2024-12-28 11:43] LABS: Hematocrit 26.3 % (40-54); Hemoglobin 8.2 g/dL (13.0-16.5); Immature Granulocytes Count 0.070 X10^3/uL (0.0-0.0); Mean Corp Hgb Conc 31.2 g/dL (32-36); Mean Corpuscular Volume 82.2 fL (80-94); Mean Platelet Vol. 9.6 fl (6.2-12.0); NRBC Flagged by Analyzer 0 % (0-5); POSITIVE DIFFERENTIAL YES; Platelet Count 164 K/mm3 (150-450); RBC Distribution Width CV 19.9 % (11.6-14.6); RBC Distribution Width SD 59.7 fl (35.1-43.9); Red Blood Count 3.20 M/mm3 (4.6-6.2); White Blood Count 4.0 K/mm3 (4.4-11.0)
--- NOTE | 2024-12-28 12:06 | PHA.DC_ITS ---
Pharmacy [place] Med Reconciliation Pharmacy Service has performed discharge medication reconciliation for this patient. The patient's discharge medication list was reviewed for discrepancies and discrepancies were resolved. Medications at Discharge Home Medications hydralazine 100 mg tablet 100 mg PO TID hypertentsion 07/06/17 latanoprost 0.005 % eye drops 1 drp EACH EYE QHS eye drops 07/06/17 aspirin 81 mg tablet,delayed release 81 mg PO DAILY@0800 10/20/18 atorvastatin 40 mg tablet 40 mg PO QHS cholesterol 01/07/24 amlodipine 5 mg tablet 5 mg PO BID 12/27/24 calcitriol 0.25 mcg capsule 0.25 mcg PO DAILY 12/27/24 carvedilol 25 mg tablet 25 mg PO BID 12/27/24 cholecalciferol (vitamin D3) 50 mcg (2,000 unit) capsule 50 mcg PO DAILY 12/27/24 clotrimazole 10 mg alva 10 mg mucous membrane TID 12/27/24 dorzolamide 22.3 mg-timolol 6.8 mg/mL eye drops 1 drp ophthalmic (eye) BID 12/08 07/03 folic acid 0.8 mg-vit B comp with [id number] D3 2,000 unit tablet (Dialyvite 800-Ultra D) 1 tab PO DAILY 12/27/24 furosemide 40 mg tablet 40 mg PO BID 12/27/24 insulin aspart U-100 100 unit/mL (3 mL) subcutaneous pen 2 unit subcut TID 12/27/24 insulin degludec 100 unit/mL (3 mL) subcutaneous pen 10 unit subcut DAILY 12/27/24 mycophenolate mofetil 250 mg capsule 750 mg PO Q12H 12/27/24 pantoprazole 40 mg tablet,delayed release 40 mg PO DAILY 12/27/24 prednisone 5 mg tablet 5 mg PO Q6H 12/27/24 sulfamethoxazole 400 mg-trimethoprim 80 mg tablet 1 tab PO DAILY 12/27/24 tacrolimus 1 mg capsule, immediate-release 3 mg PO BID 12/27/24 tamsulosin 0.4 mg capsule 0.4 mg PO DAILY 12/27/24 valganciclovir 450 mg tablet 450 mg PO DAILY 12/27/24
[2024-12-28 12:53] LABS: Anion Gap 9 (5-15); BUN 80 mg/dL (4-19); BUN/Creat Ratio 26.0 RATIO (10-20); Calcium,Total 8.8 mg/dL (7.6-11.0); Carbon Dioxide 14.0 mmol/L (21.0-32.0); Chloride 115 mmol/L (98-108); Estimated Creatinine Clearance 22.28 ml/min (50-250); Glucose 301 mg/dL (70-99); Potassium 5.8 mmol/L (3.3-5.1)
--- NOTE | 2024-12-28 13:51 | PCM.DC.SUM ---
Providers Date of Admission: 12/27/24 Primary Care Physician: Dr. Peter Coronado MD Reason For Visit: ANEMIA REQUIRING BLOOD TRANSFUSION Diagnosis Discharge Diagnosis (1) Anemia due to chronic kidney disease: Status: Chronic Code(s): N18.9 - Chronic kidney disease, unspecified; D63.1 - Anemia in chronic kidney disease Medications at Discharge Home Medications hydralazine 100 mg tablet 100 mg PO TID hypertentsion 07/06/17 latanoprost 0.005 % eye drops 1 drp EACH EYE QHS eye drops 07/06/17 aspirin 81 mg tablet,delayed release 81 mg PO DAILY@0800 10/20/18 atorvastatin 40 mg tablet 40 mg PO QHS cholesterol 01/07/24 amlodipine 5 mg tablet 5 mg PO BID 12/27/24 calcitriol 0.25 mcg capsule 0.25 mcg PO DAILY 12/27/24 carvedilol 25 mg tablet 25 mg PO BID 12/27/24 cholecalciferol (vitamin D3) 50 mcg (2,000 unit) capsule 50 mcg PO DAILY 12/27/24 clotrimazole 10 mg alva 10 mg mucous membrane TID 12/27/24 dorzolamide 22.3 mg-timolol 6.8 mg/mL eye drops 1 drp ophthalmic (eye) BID 12/27/24 folic acid 0.8 mg-vit B comp with [id number]-[id number] D3 2,000 unit tablet (Dialyvite 800-Ultra D) 1 tab PO DAILY 12/27/24 furosemide 40 mg tablet 40 mg PO BID 12/27/24 insulin aspart U-100 100 unit/mL (3 mL) subcutaneous pen 2 unit subcut TID 12/27/24 insulin degludec 100 unit/mL (3 mL) subcutaneous pen 10 unit subcut DAILY 12/27/24 mycophenolate mofetil 250 mg capsule 750 mg PO Q12H 12/27/24 pantoprazole 40 mg tablet,delayed release 40 mg PO DAILY 12/27/24 prednisone 5 mg tablet 5 mg PO Q6H 12/27/24 sulfamethoxazole 400 mg-trimethoprim 80 mg tablet 1 tab PO DAILY 12/27/24 tacrolimus 1 mg capsule, immediate-release 3 mg PO BID 12/27/24 tamsulosin 0.4 mg capsule 0.4 mg PO DAILY 12/27/24 valganciclovir 450 mg tablet 450 mg PO DAILY 12/27/24 Hospital Course Operations None Procedures Blood transfusion Summary of Care Provided Minutes Spent on Discharge: 32 Hospital Course: Per HPI: THOM PACSUAL, is a 54-year-old male history of type 1 diabetes and end-stage renal disease status post kidney transplant 2 months ago as well as BPH, coronary artery disease with stenting, GERD, hypertension who presented [facility] ED 12/27/2024 for anemia and blood transfusion. Patient states he follows with kidney transplant team and has been compliant with his medications. He had routine blood work at [facility] and was called by his transplant team stating he is anemic and that he needs to go to the emergency department for blood transfusion. In the ED temp 96.8, heart rate 73 with a blood pressure of 110/67, pulse ox 100% on room air with respiratory rate of 16. CBC revealed white blood cell count 3.6, hemoglobin 6.4, platelet count 188. BMP with a chloride of 115, bicarb 13.2 with a BUN of 85 and a creatinine of 3.19. Glucose of 316. ED physician discussed with transplant team who said patient only needed transfused and then discharged. Hospitalist contacted for admission as patient would not be able to get blood for 6 hours due to antibodies so he will require stay overnight. Patient evaluated bedside. He reports history as above with need for transfusions previously as well. He denies any acute change in clinical status and has no complaints whatsoever. Hospital Course: 1. Acute on chronic anemia of chronic disease?54-year-old male presented to the hospital for transfusion he was admitted for transfusion. He does not need any further workup as he recently had a renal transplant 2 months ago at and he has been getting intermittent transfusions because of this illness. Hemoglobin returned at 8.2, I discussed with him the plan for discharge and he expressed understanding of the risks and benefits of going home and would like to go home today. 2. Type 1 diabetes, end-stage renal disease status post transplant, chronic BPH with obstruction, coronary artery disease status post stent, essential hypertension, GERD overall chronic medical conditions which complicate his care. His home medications were continued where appropriate Physical Exam Narrative General: Alert, Oriented x3, Cooperative, No apparent distress HEENT: Atraumatic, PERRLA, EOMI, Normocephalic Oral: Moist Mucosa Lungs: Clear to auscultation, Normal air movement, No rhonchi, No wheeze, No rales Cardiovascular: Regular rate, Regular Rhythm, Normal S1, Normal S2, No murmurs Abdomen: Soft, Non Tender, Non-Distended, No Hepato-splenomegaly Skin: No rashes, No breakdown Weight / BMI Weight Weight: 130 lb 1.164 oz Body Mass Index (BMI) 16.2 ABG / Lab / Microbiology Data 12/28/24 11:25 12/28/24 11:25 Laboratory: Laboratory Results - last 24 hr 12/27/24 17:40: WBC 3.6 L, RBC 2.46 L, Hgb 6.4 L, Hct 20.8 L, MCV 84.6, MCH 26.0 L, MCHC 30.8 L, RDW Std Deviation 64.3 H, RDW Coeff of Edda 20.9 H, Plt Count 188, MPV 10.0, Immature Gran % (Auto) 1.700 H, Neut % (Auto) 82.0 H, Lymph % (Auto) 9.0 L, Kay % (Auto) 6.2, Eos % (Auto) 0.8, Baso % (Auto) 0.3, Absolute Neuts (auto) 2.9, Absolute Lymphs (auto) 0.32 L, Nucleated RBC % 0, Differential Comment SCANNED, Platelet Estimate ADEQUATE, Polychromasia 1+, Hypochromasia 1+, Anisocytosis 2+, Ovalocytes 1+, Blood Type B POSITIVE, Antibody Screen NEGATIVE 12/27/24 17:50: Sodium 138, Potassium 5.1, Chloride 115 H, Carbon Dioxide 13.2 L, Anion Gap 9, BUN 85 H, Creatinine 3.19 H, Estim Creat Clear Calc 24.44 L, Est GFR (MDRD) Non-Af 22 L, BUN/Creatinine Ratio 26.7 H, Glucose 316 H, Calcium 8.8 12/27/24 18:45: Crossmatch See Detail 12/27/24 21:19: POC Glucose 327 H 12/28/24 08:12: POC Glucose 316 H 12/28/24 11:21: POC Glucose 262 H 12/28/24 11:25: WBC 4.0 L, RBC 3.20 L, Hgb 8.2 L, Hct 26.3 L, MCV 82.2, MCH 25.6 L, MCHC 31.2 L, RDW Std Deviation 59.7 H, RDW Coeff of Edda 19.9 H, Plt Count 164, MPV 9.6, Immature Gran % (Auto) 1.800 H, Neut % (Auto) 85.3 H, Lymph % (Auto) 6.3 L, Kay % (Auto) 5.8, Eos % (Auto) 0.5, Baso % (Auto) 0.3, Absolute Neuts (auto) 3.4, Absolute Lymphs (auto) 0.25 L, Nucleated RBC % 0, Sodium 137, Potassium 5.8 H, Chloride 115 H, Carbon Dioxide 14.0 L, Anion Gap 9, BUN 80 H, Creatinine 3.09 H, Estim Creat Clear Calc 22.28 L, Est GFR (MDRD) Non-Af 23 L, BUN/Creatinine Ratio 26.0 H, Glucose 301 H, Calcium 8.8 D/C Instructions Call your doctor if you observe: Fever of 101 or Higher, Shortness of breath, Dizziness, Fainting spells, Swelling in the ankles, Chest pain and Increased palpitations (irregular heartbeat) DC O2, CPAP, BIPAP Needs Home O2 Discharge instructions: No Meaningful Use Info Meaningful Use Meaningful Use Diagnoses (Choose all that apply): None applicable Discharge Plan Admission Admit Date/Time: 12/27/24 20:21 Attending Provider: Stanley Hendricks Primary Care Provider: Peter Coronado Consulting Providers: Jessie No Discharge Orders/Prescriptions Prescriptions: Continued latanoprost 1 DROP bottle 1 drp EACH EYE QHS hydralazine 100 MG tablet 100 mg PO TID aspirin 81 MG tablet 81 mg PO DAILY@0800 0RF atorvastatin 40 mg tablet 40 mg PO QHS furosemide 40 mg tablet 40 mg PO BID clotrimazole 10 mg alva 10 mg mucous membrane TID valganciclovir 450 mg tablet 450 mg PO DAILY carvedilol 25 mg tablet 25 mg PO BID sulfamethoxazole-trimethoprim 400-80 mg tablet 1 tab PO DAILY mycophenolate mofetil 250 mg capsule 750 mg PO Q12H prednisone 5 mg tablet 5 mg PO Q6H amlodipine 5 mg tablet 5 mg PO BID tamsulosin 0.4 mg capsule 0.4 mg PO DAILY pantoprazole 40 mg tablet,delayed release (DR/EC) 40 mg PO DAILY dorzolamide-timolol 22.3-6.8 mg/mL drops 1 drp ophthalmic (eye) BID tacrolimus 1 mg capsule 3 mg PO BID calcitriol 0.25 mcg capsule 0.25 mcg PO DAILY insulin aspart U-100 100 unit/mL (3 mL) insulin pen 2 unit SUBCUT TID Patient Comments: Inject 3 Units under the skin 3 times a day before meals. Inject 2 units for breakfast, lunch, and dinner. Check blood sugar & follow sliding scale. 0 unit(s) if Blood glucose is between 71-150; 1 unit(s) for 151-200; 2 unit(s) for 201-250; 3 unit(s) for 251-300; 4 unit(s) for 301-350; 5 unit(s) for 351-400 (up to 50 units/day) cholecalciferol (vitamin D3) 50 mcg (2,000 unit) capsule 50 mcg PO DAILY Rx Instructions: AM Dialyvite 800-Ultra D 0.8-2,000 mg-unit tablet 1 tab PO DAILY insulin degludec 100 unit/mL (3 mL) insulin pen 10 unit subcut DAILY Rx Instructions: AM Referrals / Follow Up: Peter Coronado MD [Primary Care Provider] - Within 1 Week Disposition Disposition (needs filled in before D/C Order can be placed): Home, Self Care Charges/Coding Visit Charges Inpatient E&M: 19636 Disch Hosp >30min
== END 2024-12-28 12:25 | disposition home or self-care (01) ==
LOC: ED 19:02 → MS3 20:41
PROVIDERS: Admitting Provider Internal Medicine; Emergency Provider Surgery; PCP Family Medicine; Visit Provider Family Medicine
DX: I12.0 Hypertensive chronic kidney disease with stage 5 chronic kidney disease or end stage renal disease (principal); N18.6 End stage renal disease; E10.51 Type 1 diabetes mellitus with diabetic peripheral angiopathy without gangrene; E10.40 Type 1 diabetes mellitus with diabetic neuropathy, unspecified; E10.21 Type 1 diabetes mellitus with diabetic nephropathy; Z79.4 Long term (current) use of insulin; D63.1 Anemia in chronic kidney disease; Z79.899 Other long term (current) drug therapy; E78.5 Hyperlipidemia, unspecified; Z79.82 Long term (current) use of aspirin; I25.10 Atherosclerotic heart disease of native coronary artery without angina pectoris; Z94.0 Kidney transplant status; N40.1 Benign prostatic hyperplasia with lower urinary tract symptoms; N13.8 Other obstructive and reflux uropathy
CPT/HCPCS: 36415; 36430; 80048; 82962; 85025; 86644; 86850; 86900; 86901; 99221; 99283; P9040; A4216; G0378

== ENCOUNTER 2025-02-28 10:47 | Emergency (ER) | payer MEDICARE, MEDICAID, SELFPAY ==
[2025-02-28] VITALS (12 sets, daily range): BP systolic 105–159; BP diastolic 38–86; PULSE 67–85; RESP 12–29; TEMP 36.4–36.9; O2SAT 100; BMI 18.3
[2025-02-28 11:45] LABS: Hematocrit 15.7 % (40-54); Hemoglobin 4.5 g/dL (13.0-16.5); Immature Granulocytes Count 0.080 X10^3/uL (0.0-0.0); Mean Corp Hgb Conc 28.7 g/dL (32-36); Mean Corpuscular Volume 80.1 fL (80-94); Mean Platelet Vol. 10.2 fl (6.2-12.0); NRBC Flagged by Analyzer 0 % (0-5); POSITIVE COUNT YES; POSITIVE DIFFERENTIAL YES; Platelet Count 165 K/mm3 (150-450); RBC Distribution Width CV 19.3 % (11.6-14.6); RBC Distribution Width SD 52.4 fl (35.1-43.9); Red Blood Count 1.96 M/mm3 (4.6-6.2); White Blood Count 3.5 K/mm3 (4.4-11.0)
[2025-02-28 11:47] LABS: Differential Indicated SCAN CRITERIA MET
[2025-02-28 12:02] LABS: AST(SGOT) 19 U/L (<=37); Alanine Aminotransfer ALT/SGPT 29 U/L (<=46); Albumin, Serum 3.6 g/dL (3.5-5.0); Alkaline Phosphatase 45 U/L (40-129); Anion Gap 9 (5-15); BUN 46 mg/dL (4-19); BUN/Creat Ratio 18.2 RATIO (10-20); Calcium,Total 8.5 mg/dL (7.6-11.0); Carbon Dioxide 18.8 mmol/L (21.0-32.0); Chloride 109 mmol/L (98-108); Estimated Creatinine Clearance 30.93 ml/min (50-250); Globulin 1.8 g/dL (2.2-4.2); Glucose 305 mg/dL (70-99); Lipase 31 U/L (13-75); Potassium 4.7 mmol/L (3.3-5.1)
--- NOTE | 2025-02-28 12:39 | RDU_ITS ---
Reason For Study Reason For Study: Renal transplant, r/o pseudoaneurysm Aorta Distal abdominal aorta 1.42 x 1.36 cm . Distal abdominal aorta peak systolic velocity is 118.2 cm/sec . Rt THERESA prox, prox to anastamosis, 125.9 cm/sec. Rt THERESA mid, dist to anastamosis, 74.1 cm/sec.. Transplant kidney, right groin Prox anastamosis, 265.2/33.7 cm/sec Prox anastamosis RI, 0.87. Prox anastamosis EDR 0.13. Prox renal artery, 245.3 cm/sec. Prox renal artery RI, 0.88. Prox renal artery EDR, 0.12. Mid renal artery, 210.1/33.7 cm/sec. Mid renal artery RI, 0.84. Mid renal artery EDR, 0.16. Distal renal artery, 198.2 cm/sec. Distal renal artery RI, 0.85. Distal renal artery EDR, 0.15. Renal vein noted with normal venous flow. Transplant kidney measures 11.10 cm. No pseudoaneurysm noted. Preliminary report given to Dr. Cannon. VL/Renal Artery Duplex Ultrasound Interpretation Summary Patent transplanted renal artery with elevated velocities throughout. No pseudo aneurysm identified. Patent transplanted renal vein with normal venous flow pattern. Ordering Physician: Chucky Cannon Referring Physician: MD Cliff Peter Performed By: Rhonda Mendoza RVT
--- NOTE | 2025-02-28 13:10 | CT_ITS ---
PROCEDURE: ABDOMEN/PELVIS WITHOUT CONT 02/28/2025 REASON FOR EXAM: ANEMIA HX OF RENAL TRANSPLANT TECHNIQUE: Procedure Code: CTABDPEL Modality: CT Procedure: ABDOMEN/PELVIS WITHOUT CONT Noncontrast technique limits evaluation of the abdominal and pelvic viscera. Coronal and Sagittal reconstruction series were provided. One or more dose reduction techniques were used (e.g., Automated exposure control, adjustment of the mA and/or kV according to patient size, use of iterative reconstruction technique). RADIATION DOSE SUMMARY: CTDlvol: 6.12 mGy DLP: 350.83 mGycm COMPARISON: CT chest abdomen and pelvis March 07, 2023. FINDINGS: Lung bases: Clear. Liver: Unremarkable. Gallbladder: Unremarkable. No biliary dilation. Spleen: Unremarkable. Pancreas: Unremarkable. Adrenals: Unremarkable. Kidneys: The the kidneys are small with multiple simple cysts with the largest measures 2.3 cm at the lower pole of the left kidney. Right pelvic transplant kidney is unremarkable. No hydronephrosis. No nephrolithiasis. An 8 mm hyperdense cyst at the midpole of the right kidney. Bladder: Distended otherwise unremarkable. Reproductive Organs: Unremarkable. Bowel: No bowel wall thickening. No bowel obstruction. Appendix: Unremarkable. Lymph nodes: No lymphadenopathy. Vasculature: Atherosclerotic calcifications. No aneurysm. Peritoneum / Retroperitoneum: No free air or free fluid. Bones: No acute bony abnormalities. CT/Abdomen/Pelvis without Cont IMPRESSION: No acute abdominopelvic abnormalities. Unremarkable right kidney transplant without hydronephrosis or nephrolithiasis. Distended bladder. Reading Location: [facility]
--- NOTE | 2025-02-28 15:35 | PCA ---
TRANSFER TO [facility] ETA [address] ICU.
--- NOTE | 2025-02-28 16:36 | EX.ED.DYSGE1 ---
HPI History of Present Illness Chief Complaint: Abn Labs Narrative Narrative: Patient is a 54-year-old male with a past medical history of renal transplant at [facility] 4 months ago, diabetes, previous dialysis patient, hyponatremia, peripheral vascular disease, microcytic anemia, hyperlipidemia who presents to the emergency department with a chief complaint of low blood counts. Patient states that he had blood work drawn yesterday and was called and was told that he needed to go to the emergency department as hemoglobin is low. He states that he thought his hemoglobin was too. Patient himself has no specific complaints otherwise feels well. Patient states that has been having normal bowel movements no black or bloody stools. [facility] Medical History Myocardial infarct Wears glasses Wears dentures History of echocardiogram Cardiology follow-up encounter End stage renal disease on dialysis Diabetes Dialysis patient Kidney disease Non-smoker Syncope and collapse Atherosclerotic heart disease of [place] coronary artery without angina pectoris NSTEMI (non-ST elevated myocardial infarction) Malnutrition Delayed wound healing Ulcer of right foot with fat layer exposed History of iron deficiency Anemia due to chronic kidney disease HTN (hypertension) Hypomagnesemia Diabetic foot infection ESRD (end stage renal disease) on dialysis Diabetic neuropathy Hyponatremia DM type 1 causing renal disease Acute on chronic anemia Cellulitis of right foot Peripheral vascular disease Diabetes mellitus with neuropathy Microcytic anemia Depression Hyperlipidemia Diabetes mellitus type 1 Glaucoma Benign essential hypertension Home Medications ?Medication ?Instructions ?Recorded ?Last Taken ?Type hydralazine 100 mg tablet 100 mg PO TID hypertentsion 07/06/17 02/28/25 History latanoprost 0.005 % eye drops 1 drp EACH EYE QHS eye drops 07/06/17 02/27/25 History aspirin 81 mg tablet,delayed 81 mg PO DAILY@0800 10/20/18 02/28/25 Rx release atorvastatin 40 mg tablet 40 mg PO QHS cholesterol 01/07/24 02/27/25 History amlodipine 5 mg tablet 5 mg PO BID 12/27/24 02/28/25 History calcitriol 0.25 mcg capsule 0.25 mcg PO DAILY 12/27/24 02/28/25 History carvedilol 25 mg tablet 25 mg PO BID 12/27/24 02/28/25 History cholecalciferol (vitamin D3) 50 50 mcg PO DAILY 12/27/24 02/28/25 History mcg (2,000 unit) capsule clotrimazole 10 mg alva 10 mg mucous membrane TID 12/27/24 02/28/25 History dorzolamide 22.3 mg-timolol 6.8 1 drp ophthalmic (eye) BID 12/27/24 02/28/25 History mg/mL eye drops folic acid 0.8 mg-vit B comp with 1 tab PO DAILY 12/27/24 02/28/25 History A-letb-qpkopkr D3 2,000 unit tablet (Dialyvite 800-Ultra D) furosemide 40 mg tablet 40 mg PO BID 12/27/24 02/28/25 History insulin aspart U-100 100 unit/mL 2 unit subcut TID 12/27/24 02/28/25 History (3 mL) subcutaneous pen insulin degludec 100 unit/mL (3 9 unit subcut DAILY 12/27/24 02/28/25 History mL) subcutaneous pen mycophenolate mofetil 250 mg 750 mg PO Q12H 12/27/24 02/28/25 History capsule pantoprazole 40 mg tablet,delayed 40 mg PO DAILY 12/27/24 02/27/25 History release prednisone 5 mg tablet 5 mg PO Q6H 12/27/24 02/28/25 History sulfamethoxazole 400 1 tab PO DAILY 12/27/24 02/28/25 History mg-trimethoprim 80 mg tablet tamsulosin 0.4 mg capsule 0.4 mg PO DAILY 12/27/24 02/28/25 History valganciclovir 450 mg tablet 450 mg PO DAILY 12/27/24 02/28/25 History epoetin yuri-epbx 10,000 unit/mL unit 02/28/25 Unknown History injection solution (Retacrit) sodium bicarbonate 650 mg tablet 1,300 mg PO TID 02/28/25 02/28/25 History sodium zirconium cyclosilicate 10 10 g PO DAILY 02/28/25 02/28/25 History gram oral powder packet (Lokelma) tacrolimus 1 mg tablet,extended 6 mg PO DAILY 02/28/25 02/28/25 History release 24 hr ([facility] XR) Allergy/AdvReac Type Severity Reaction Status Date / Time calcium (From PhosLo) Allergy Hives Verified 02/28/25 10:50 Family History Sister Heart disease Uncle Colon cancer Surgical History Hx of kidney transplant History of parotidectomy Stented coronary artery (10/19/18) Status post peripheral artery angioplasty Presence of surgically created primary arteriovenous shunt for hemodialysis Status post transmetatarsal amputation of right foot Social History household members: family Smoking Status: Never smoker alcohol intake: never substance use type: does not use ROS ROS ED ROS Narrative Constitutional: Denies any fevers, chills, lightness, dizziness Eyes: Denies double vision Cardiovascular: Denies chest pain Respiratory: Denies shortness of breath, coughing Abdomen: Denies abdominal pain nausea vomit diarrhea denies bloody stools denies dark tarry stools : Denies urinary symptoms Neurological: Denies any numbness, weakness, tingling Musculoskeletal: Denies back pain Skin: Denies any rashes or lesions EXAM Physical Exam Narrative Exam Narrative: General: Patient was lying in bed rest comfortably did not appear to be in acute distress Head: Atraumatic, normocephalic Eyes: PERRL bilaterally, EOMI bilaterally, no conjunctival injection noted Neck: Soft, supple, trachea midline Cardiovascular: Regular rate and rhythm no murmurs gallops rubs noted Respiratory: Clear to auscultation bilaterally no rales rhonchi or wheeze noted Abdomen: Soft, nondistended, no tenderness to palpation Extremities: +5/5 strength noted in the bilateral lower extremities, radial pulses +2/4 and about extremities, no pedal edema on exam Neurological: Patient following commands knew that he was at [facility] the year is 2024 Skin: Warm, dry, intact no rashes or lesions noted Const Vital Signs: 02/28/25 10:48 02/28/25 11:27 02/28/25 12:10 Temperature 98.4 F Temperature Source Oral Pulse Rate 79 77 Respiratory Rate 16 14 Respiratory Effort Normal Non-Labored Respiratory Pattern Normal Blood Pressure 114/86 H 145/72 H Blood Pressure Mean 95 96 Blood Pressure Source Blood Pressure Position Blood Pressure Location Pulse Ox 100 100 Oxygen Delivery Method Room Air 02/28/25 13:46 02/28/25 14:00 02/28/25 15:30 Temperature 97.8 F Temperature Source Oral Pulse Rate 76 70 75 Respiratory Rate 29 H 12 16 Respiratory Effort Respiratory Pattern Blood Pressure 114/38 L 151/78 H 144/73 H Blood Pressure Mean 63 100 96 Blood Pressure Source Monitor Blood Pressure Position Semi-Fowlers Blood Pressure Location Right Arm Pulse Ox 100 100 100 Oxygen Delivery Method Room Air Room Air 02/28/25 15:31 02/28/25 15:45 02/28/25 16:00 Temperature 97.7 F L Temperature Source Oral Pulse Rate 73 72 85 Respiratory Rate 14 18 14 Respiratory Effort Respiratory Pattern Blood Pressure 144/73 H 149/66 H 144/40 H Blood Pressure Mean 96 93 74 Blood Pressure Source Monitor Blood Pressure Position Semi-Fowlers Blood Pressure Location Right Arm Pulse Ox 100 100 100 Oxygen Delivery Method Room Air Room Air MDM MDM MDM Narrative Medical decision making narrative: Patient is a 54-year-old male who presents to the emergency department chief complaint of abnormal blood work and concern for anemia. On the differential diagnose includes but not limited to GI bleed, microcytic anemia, chronic anemia, lab error. Once workup is obtained reviewed he will be reevaluated. Patient's CBC reviewed which showed a white blood count of 3.5, hemoglobin 4.5, plate count 165. Patient sodium normal 137, potassium of 4.7, creatinine was noted to be 2.52 which his previous blood draws here showed a creatinine of 3.09 and 3.19 this appears to be around his baseline, AST was 19 ALT of 29. Patient lipase normal at 31. Patient was typed and screened for 3 units of blood. Blood bank notified me that the patient needs leukocyte reduced blood therefore they need to contact [place] for this blood. I reached out to [facility] transplant team and spoke with transplant surgeon Dr. Maddox and they will accept the patient for transfer however they are recommending obtaining a renal ultrasound as well as CT abdomen pelvis without contrast which was ordered. Patient's renal artery ultrasound was reviewed which showed patent transplanted renal artery with elevated velocities throughout no pseudoaneurysm identified. Patent transplant renal vein with normal venous flow pattern. Patient CT abdomen pelvis without contrast was reviewed as well which showed no acute abdominal pelvic abnormalities unremarkable right kidney transplant without hydronephrosis or nephrolithiasis distended bladder. 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 They are still recommending that he gets at least 2 units of blood prior to transport. They state that he can have any type of blood once he is typed and screened that he does not need the leukocyte reduced blood. Nurse staff notified me that there was 1 unit of leukocyte reduced blood ready and a another 1 would be ready in approximately 30 minutes therefore he will be given these 2 units of blood and transported to [facility] for further evaluation management. He also notified me that the patient did require dialysis shortly after transplant at this did not originally take however after some time the transplant took and he remains off dialysis. Patient notified is agreeable to plan all questions earns answered. Lab Data Labs: Laboratory Results - last 24 hr 02/28/25 02/28/25 11:30 15:55 WBC 3.5 L RBC 1.96 L Hgb 4.5 L* Hct 15.7 L MCV 80.1 MCH 23.0 L MCHC 28.7 L RDW Std Deviation 52.4 H RDW Coeff of Edda 19.3 H Plt Count 165 MPV 10.2 Immature Gran % (Auto) 2.300 H Neut % (Auto) 79.8 H Lymph % (Auto) 7.2 L [place] % (Auto) 9.5 Eos % (Auto) 0.9 Baso % (Auto) 0.3 Absolute Neuts (auto) 2.8 Absolute Lymphs (auto) 0.25 L Nucleated RBC % 0 Sodium 137 Potassium 4.7 Chloride 109 H Carbon Dioxide 18.8 L Anion Gap 9 BUN 46 H Creatinine 2.52 H Estim Creat Clear Calc 30.93 L Est GFR (MDRD) Non-Af 29 L BUN/Creatinine Ratio 18.2 Glucose 305 H Calcium 8.5 Total Bilirubin 0.17 AST 19 ALT 29 Alkaline Phosphatase 45 Total Protein 5.4 L Albumin 3.6 Globulin 1.8 L Albumin/Globulin Ratio 2.0 Lipase 31 POC Glucose 271 H Blood Type B POSITIVE Antibody Screen NEGATIVE Crossmatch See Detail Radiography Diagnostic Testing: Clinical Impression(s) from Imaging Studies Renal Artery Duplex 02/28/25 12:39 Interpretation Summary Patent transplanted renal artery with elevated velocities throughout. No pseudoaneurysm identified. Patent transplanted renal vein with normal venous flow pattern. Ordering Physician: Chucky Cannon Referring Physician: MD Cliff Peter Performed By: Rhonda Mendoza RVT Abdomen/Pelvis CT 02/28/25 13:10 IMPRESSION: No acute abdominopelvic abnormalities. Unremarkable right kidney transplant without hydronephrosis or nephrolithiasis. Distended bladder. Reading Location: [facility] Discharge Plan Triage Chief Complaint: Abn Labs ED Provider: Chucky Cannon Dx/Rx/DC Orders Clinical Impression: Renal transplant recipient, Benign essential hypertension, Diabetes mellitus with neuropathy, Peripheral vascular disease Prescriptions: No Action latanoprost 1 DROP bottle 1 drp EACH EYE QHS hydralazine 100 MG tablet 100 mg PO TID aspirin 81 MG tablet 81 mg PO DAILY@0800 0RF atorvastatin 40 mg tablet 40 mg PO QHS sodium bicarbonate 650 mg tablet 1,300 mg PO TID Envarsus XR 1 mg tablet extended release 24 hr 6 mg PO DAILY Retacrit 10,000 unit/mL solution Patient Comments: [NO ORIGINAL SIG] Lokelma 10 gram powder in packet 10 g PO DAILY furosemide 40 mg tablet 40 mg PO BID clotrimazole 10 mg alva 10 mg mucous membrane TID valganciclovir 450 mg tablet 450 mg PO DAILY carvedilol 25 mg tablet 25 mg PO BID sulfamethoxazole-trimethoprim 400-80 mg tablet 1 tab PO DAILY mycophenolate mofetil 250 mg capsule 750 mg PO Q12H prednisone 5 mg tablet 5 mg PO Q6H amlodipine 5 mg tablet 5 mg PO BID tamsulosin 0.4 mg capsule 0.4 mg PO DAILY pantoprazole 40 mg tablet,delayed release (DR/EC) 40 mg PO DAILY dorzolamide-timolol 22.3-6.8 mg/mL drops 1 drp ophthalmic (eye) BID calcitriol 0.25 mcg capsule 0.25 mcg PO DAILY insulin aspart U-100 100 unit/mL (3 mL) insulin pen 2 unit SUBCUT TID Patient Comments: Inject 3 Units under the skin 3 times a day before meals. Inject 2 units for breakfast, lunch, and dinner. Check blood sugar & follow sliding scale. 0 unit(s) if Blood glucose is between 71-150; 1 unit(s) for 151-200; 2 unit(s) for 201-250; 3 unit(s) for 251-300; 4 unit(s) for 301-350; 5 unit(s) for 351-400 (up to 50 units/day) cholecalciferol (vitamin D3) 50 mcg (2,000 unit) capsule 50 mcg PO DAILY Rx Instructions: AM Dialyvite 800-Ultra D 0.8-2,000 mg-unit tablet 1 tab PO DAILY insulin degludec 100 unit/mL (3 mL) insulin pen 9 unit subcut DAILY Rx Instructions: AM Primary Care Provider: Peter Coronado Referrals: Peter Coronado MD [Primary Care Provider, Family Practice] Print Language: Yoruba Disposition Disposition: DC/Tx to Another Type of HCF
--- NOTE | 2025-02-28 17:14 | ED.RN ---
Attempted to call report to at this time, no answer, will attempt later.
--- NOTE | 2025-02-28 18:00 | ED.RN ---
attempted to call report to [phone], no answer again.
== END 2025-02-28 18:03 | disposition other institution (70) ==
PROVIDERS: Emergency Provider Emergency Medicine; PCP Family Medicine; Visit Provider Emergency Medicine
DX: I10 Essential (primary) hypertension (principal); E10.51 Type 1 diabetes mellitus with diabetic peripheral angiopathy without gangrene; E10.40 Type 1 diabetes mellitus with diabetic neuropathy, unspecified; Z79.4 Long term (current) use of insulin; I25.10 Atherosclerotic heart disease of native coronary artery without angina pectoris; E78.5 Hyperlipidemia, unspecified; I25.2 Old myocardial infarction; Z79.899 Other long term (current) drug therapy; Z79.82 Long term (current) use of aspirin; Z94.0 Kidney transplant status; Z95.5 Presence of coronary angioplasty implant and graft
CPT/HCPCS: 74176; 80053; 82962; 83690; 85025; 86644; 86850; 86900; 86901; 93975; 99284; P9040; A4216

== ENCOUNTER 2025-03-07 10:56 | Emergency (ER) | payer MEDICARE, MEDICAID, SELFPAY ==
--- OUTSIDE RECORDS SUMMARY | 2025-03-04 16:05 | XMS RPT_ITS ---
Author Name Auto Generated Organization OHIP Support Name Relationship Address Phone [place] Next of Kin Unknown [phone] KAITLIN SCHAFER Next of Kin Unknown [phone] CHAPIN, RYAN Next of Kin Unknown [phone] KAITLIN SCHAFER Next of Kin Unknown [phone] CHAPINRYAN [place] Next of Kin Unknown [phone] SAMARA, RYAN Next of Kin Unknown [phone] SAMARA, RYAN Next of Kin Unknown [phone] CHAPIN, RYAN Next of Kin Unknown [phone] CHAPIN, RYAN Next of Kin Unknown [phone] SAMARA, RYAN Next of Kin Unknown [phone] CHAPIN, RYAN Next of Kin Unknown [phone] CHAPIN, RYAN Next of Kin Unknown [phone] SAMARA, RYAN Next of Kin Unknown [phone] SAMARA, RYAN Next of Kin Unknown [phone] CHAPIN, RYAN Next of Kin Unknown [phone] CHAPIN, RYAN Next of Kin Unknown [phone] CHAPIN, RYAN Next of Kin Unknown [phone] CHAPIN, RYAN Next of Kin Unknown [phone] SAMARA, RYAN Next of Kin Unknown [phone] CHAPIN, RYAN Next of Kin Unknown [phone] CHAPIN, RYAN Next of Kin Unknown [phone] CHAPIN, RYAN Next of Kin Unknown [phone] CHAPIN, RYAN Next of Kin Unknown [phone] CHAPIN, RYAN Next of Kin Unknown [phone] CHAPIN, RYAN Next of Kin Unknown [phone] CHAPIN, RYAN Next of Kin Unknown [phone] CHAPIN, RYAN Next of Kin Unknown [phone] CHAPIN, RYAN Next of Kin Unknown [phone] CHAPIN, RYAN Next of Kin Unknown [phone] CHAPIN, RYAN Next of Kin Unknown [phone] CHAPIN, RYAN Next of Kin Unknown [phone] CHAPIN, RYAN Next of Kin Unknown [phone] CHAPIN, RYAN Next of Kin Unknown [phone] CHAPIN, RYAN Next of Kin Unknown [phone] CHAPIN, RYAN Next of Kin Unknown [phone] CHAPIN, RYAN Next of Kin Unknown [phone] CHAPIN, RYAN Next of Kin Unknown [phone] CHAPIN, RYAN Next of Kin Unknown [phone] CHAPIN, RYAN Next of Kin Unknown +[phone] CHAPIN, RYAN Next of Kin Unknown +[phone] CHAPIN, RYAN Next of Kin Unknown +[phone] CHAPIN, RYAN Next of Kin Unknown [phone] CHAPIN, RYAN Next of Kin Unknown [phone] CHAPIN, RYAN Next of Kin Unknown [phone] CHAPIN, RYAN Next of Kin Unknown +[phone] CHAPIN, RYAN Next of Kin Unknown +[phone] CHAPIN, RYAN Next of Kin Unknown +[phone] CHAPIN, RYAN Next of Kin Unknown +[phone] SAMARA, RYAN Next of Kin Unknown [phone] CHAPIN, RYAN Next of Kin Unknown [phone] CHAPIN, RYAN Next of Kin Unknown +[phone] CHAPIN, RYAN Next of Kin Unknown +[phone] RYAN, SAMARA Next of Kin Unknown +[phone] RYAN, SAMARA Next of Kin Unknown +[phone] RYAN, SAMARA Next of Kin Unknown +[phone] RYAN, SAMARA Next of Kin Unknown +[phone] RYAN, SAMARA Next of Kin Unknown [phone] RYAN, SAMARA Next of Kin Unknown [phone] RYAN, SAMARA Next of Kin Unknown [phone] Care Team Providers Care Barrel Marker Name Role Phone FRANCISCO, RON YOU Primary Care Unavaila ble ELDERBROCK, RON YOU Primary Care Unavaila ble JITTIRAT, ARKSARAPUK Referring Unavailable ELDERBROCK, RON YOU Primary Care Unavaila ble ELDERBROCK, RON YOU Primary Care Unavaila ble ELDERBROCK, RON YOU Primary Care Unavaila ble KEN PULIDO Attending Unavailable ELDERBROCK, RON YOU Primary Care Unavaila ble ELDERBROCK, RON YOU Primary Care Unavaila ble JITTIRAT, ARKSARAPUK Referring Unavailable ELDERBROCK, RON YOU Primary Care Unavaila ble ELDERBROCK, RON YOU Primary Care Unavaila ble PILARELI BABB Referring Unavailable ELDERBROCK, RON YOU Primary Care Unavaila ble ELDERBROCK, RON YOU Primary Care Unavaila ble ELDERBROCK, RON YOU Primary Care Unavaila ble NATHAN LIZARRAGA Attending Unavailable ELDERBROSOFY, RON YOU Primary Care Unavaila ble ELDERBROCK, RON YOU Primary Care Unavaila ble YANETH, LAMBERT Referring Unavailable ELDERBROCK, RON YOU Primary Care Unavaila ble YANETH, LAMBERT Referring Unavailable ELDERBROCK, RNO YOU Primary Care Unavaila ble KOBE STOREY Referring Unavailable ELDERBROCK, RON YOU Primary Care Unavaila ble BROTHERS, LAMBERT Admitting Unavailable BROTHERS, LAMBERT Attending Unavailable BROTHERS, LAMBERT Referring Unavailable ELDERBROCK, RON YOU Primary Care Unavaila ble BROTHERS, LAMBERT Admitting Unavailable ELDERBROCK, RON YOU Primary Care Unavaila ble CULLEN SERVIN Referring Unavailab le ELI QUEZADA Attending Unavailable PAULINE HERNANDEZ Referring Unavailable ELDERBROCK, RON YOU Primary Care Unavaila ble ELDERBROCK, RON YOU Primary Care Unavaila ble ELDERBROCK, RON YOU Primary Care Unavaila ble ELDERBROCK, RON YOU Primary Care Unavaila ble ELDERBROCK, RON YOU Primary Care Unavaila ble NEIL NESBITT Attending Unavailable OMOREGSARITA, SIMONE L Referring Unavailable ELDERBROCK, RON YOU Primary Care Unavaila ble ELDERBROCK, RON YOU Primary Care Unavaila ble ELDERBROCK, RON OYU Primary Care Unavaila ble ELI QUEZADA Attending Unavailable ELDERBROCK, RON YOU Primary Care Unavaila ble ELDERBROCK, RON YOU Primary Care Unavaila ble ELDERBROCK, RON YOU Primary Care Unavaila ble ELDERBROCK, RON YOU Primary Care Unavaila ble ELDERBROCK, RON YOU Primary Care Unavaila ble ELDERBROCK, RON YOU Primary Care Unavaila ble ELDERBROCK, RON YOU Primary Care Unavaila ble CHOTARamon, PRADENTONT Attending Unavailable ELDERBROCK, RON YOU Primary Care Unavaila ble OMOREGSARITA, SIMONE L Attending Unavailable ELDERBROCK, RON YOU Primary Care Unavaila ble ELDERBROCK, RON YOU Primary Care Unavaila ble ELDERBROCK, RON YOU Primary Care Unavaila ble ELDERBROCK, RON YOU Primary Care Unavaila ble ELDERBROCK, RON YOU Primary Care Unavaila ble ELDERBROCK, RON YOU Primary Care Unavaila ble ELDERBROCK, RON YOU Primary Care Unavaila ble BROTHERS, LAMBERT Referring Unavailable ELDERBROCK, RON YOU Primary Care Unavaila ble ELDERBROCK, RON YOU Primary Care Unavaila ble ELDERBROCK, RON YOU Primary Care Unavaila ble CHOTAI, PRANIT Admitting Unavailable CHOTAI, PRADENTONT Attending Unavailable CHOTAI, PRANIT Referring Unavailable ELDERBROCK, RON YOU Primary Care Unavaila ble ELDERBROCK, RON YOU Primary Care Unavaila ble ELDERBROCK, RON YOU Primary Care Unavaila ble FRYFOGLE, NEIL H Attending Unavailable SIMONE WESTBROOK Referring Unavailable ELDERBROSOFY, RON YOU Primary Care Unavaila ble ELDERTODD, RON YOU Primary Care Unavaila ble NATHAN LIZARRAGA Attending Unavailable MARIAA JARQUIN Admitting Unavailable JOSE ENRIQUE PACE Referring Unavailable ELDERTODD, RON YOU Primary Care Unavaila ble NATHAN LIZARRAGA Attending Unavailable FRANCISCO, RON YOU Primary Care Unavaila ble BALABHADARREN, MIRANDA P Referring Bibiana vailable LAMBERT BROTHERS Admitting Unavailable LAMBERT BROTHERS Attending Unavailable LAMBERT BROTHERS Referring Unavailable ELDERTODD, RON YOU Primary Care Unavaila ble BOONPHENROSY BowieONDAVIDPHDOMENICA Consulting Unavailab le ELDERTODD, RON YOU Primary Care Unavaila ble OMOREGSARITA, SIMONE Morales Attending Unavailable RON CORONADO Primary Care Unavaila ble ELDERTODD, RON YOU Primary Care Unavaila ble NATHAN LIZARRAGA Attending Unavailable FRANCISCO, RON YOU Primary Care Unavaila ble NEIL NESBITT Attending Unavailable CINTIAOREGSARTIA, SIMONE L Referring Unavailable ELDERTODD, RON YOU Primary Care Unavaila ble VIANEY MENDOZA Admitting Unavailable VIANEY MENDOZA Attending Unavailable FRANCISCO, RON YOU Primary Care Unavaila ble ROBER SMITH Referring Unavailable SPRINGSTUBBVIANEY C Referring Unavailable FRANCISCO, RON YOU Primary Care Unavaila ble RON CORONADO Referring Unavailable RON CORONADO Primary Care Unavailable FRANCISCO, RON Schmidt Attending Unavailable FRANCISCO, RON Schmidt Primary Care Unavailable PROBLEMS DATE TYPE CONDITION / CODE ATTENDING STATUS [facility] 03/01/2025 Admitting Diagnosis Kidney transplant status ([facility]) / Z94.0(ICD-10) VIANEY MENDOZA [facility] 02/28/2025 Admitting Diagnosis Unspecified complication of kidney transplant ([facility]) / T86.10(ICD-10) VIANEY MENDOZA [facility] 02/28/2025 Admitting Diagnosis Anemia in chronic kidney disease / D63.1(ICD-10) VIANEY MENDOZA [facility] 02/28/2025 Admitting Diagnosis Chronic kidney disease, stage 3 unspecified ([facility]) / N18.30(ICD-10) VIANEY MENDOZA [facility] 12/09/2024 Admitting Diagnosis Kidney transplant status / Z94.0(ICD-10) [facility] 12/14/2024 Admitting Diagnosis Acute kidney failure, unspecified / N17.9(ICD-10) LAMBERT BROTHERS [facility] 12/06/2024 Admitting Diagnosis Hyperkalemia / E87.5(ICD-10) KEN PULIDO [facility] 12/03/2024 Admitting Diagnosis Chronic kidney disease, stage 4 (severe) (Multi) / N18.4(ICD-10) NATHAN LIZARRAGA 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 11/26/2024 Admitting Diagnosis Personal history of immunosuppression therapy / Z92.25(ICD-10) [facility] 11/25/2024 Admitting Diagnosis Type 1 diabetes mellitus with hyperglycemia (Multi) / E10.65(ICD-10) [place] [facility] [place] 2[place]SULMA [facility] 11/24/2024 Admitting Diagnosis Other specified abnormal findings of blood chemistry / R79.89(ICD-10) ELIO [facility] 11/17/2023 Admitting Diagnosis Secondary hyperparathyroidism of renal origin (Multi) / N25.81(ICD-10) RALEIGH [facility] 11/17/2023 Admitting Diagnosis Vitamin D deficiency, unspecified / E55.9(ICD-10) [facility] 11/24/2024 Admitting Diagnosis Pain, unspecified / R52(ICD-10) ELIO [facility] 11/17/2023 Admitting Diagnosis Non-pressure chronic ulcer of other part of unspecified foot with unspecified severity (Multi) / L97.509(ICD-10) SIMONE WESTBROOK 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 11/17/2023 Admitting Diagnosis Acquired absence of unspecified foot (Multi) / Z89.439(ICD-10) [facility] 11/18/2024 Admitting Diagnosis Acquired absence of right foot (Multi) / Z89.431(ICD-10) [facility] 11/17/2024 Admitting Diagnosis Encounter for preprocedural laboratory examination / Z01.812(ICD-10) ELIO [facility] [place]NOTE 2[place]SULMA [facility] 11/17/2024 Admitting Diagnosis Chronic kidney disease, unspecified / N18.9(ICD-10) [facility] 11/10/2024 Admitting Diagnosis Neutropenia, unspecified / D70.9(ICD-10) [facility] 10/27/2024 Admitting Diagnosis Other complication of kidney transplant / T86.19(ICD-10) [facility] 10/15/2024 Admitting Diagnosis End stage renal disease (Multi) / N18.6(ICD-10) PILAR [facility] 11/17/2023 Admitting Diagnosis Essential (primary) hypertension / I10(ICD-[facility] Diagnosis Retention of urine, unspecified / R33.9(ICD-10) [facility] Admitting Diagnosis Hypocalcemia / E83.51(ICD-10) [facility] 10/15/2024 Admitting Diagnosis Hyperglycemia, unspecified / R73.9(ICD-10) [facility] 10/15/2024 Admitting Diagnosis Adverse effect of glucocorticoids and synthetic analogues, initial encounter / T38.0X5A(ICD-10) [facility] Admitting Diagnosis Other reduced mobility / Z74.09(ICD-10) ELI QUEZADA Active [facility] 10/15/2024 Admitting Diagnosis Other specified health status / Z78.9(ICD-10) ELI QUEZADA Active [facility] 10/15/2024 Admitting Diagnosis Kidney transplant / UNK(Unknown) LAMBERT BROTHERS Active [facility] 09/09/2024 Admitting Diagnosis Dependence on renal dialysis / Z99.2(ICD-10) NATHAN LIZARRAGA Active [facility] 09/09/2024 Admitting Diagnosis Kidney Waitlist Follow-up / FREETEXT() NA 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 03/11/2024 Admitting Diagnosis Kidney Follow-up / FREETEXT() NA [facility] PROCEDURES No Procedure Records Found RESULTS GLUCOSE Collected: 11:31 AM Status: F Source: [facility] TYPE CODE TESTS RESULT OUT OF RANGE REFERENCE UNITS LAB 2341-6([facility]) Glucose 160 High 74-99 mg/dL Performed By: #### 2341-6 ## ## JASON Morales ([id number]) [facility] ([facility]) [address] [place] [address] GLUCOSE Collected: 8:25 AM Status: F Source: [facility] TYPE CODE TESTS RESULT OUT OF RANGE REFERENCE UNITS LAB 2341-6(LOINC) Glucose 179 High 74-99 mg/dL Performed By: #### 2341-6 ## ## JASON Morales ([id number]) [facility] ([facility]) [id number] [place] [address] COMPLETE BLOOD COUNT W AUTO DIFFERENTIAL PANEL Collected: 03/04/2025 6:21 AM Status: F Source: [facility] TYPE CODE TESTS RESULT OUT OF RANGE REFERENCE UNITS LAB 6690-2(LOINC) Leukocytes 3.9 Low 4.4-11.3 x10*3/ uL LAB 53979-4(LOINC ) Erythrocytes.nu cleated/Leukocy mega 0.0 0.0-0.0 /100 WBCs LAB 789-8(LOINC) Erythrocytes 3.17 Low 4.50-5.90 x10* 6/uL LAB 718-7(LOINC) Hemoglobin 7.9 Low 13.5-17.5 g/dL LAB 4544-3(LOINC) Erythrocyte/Blo od 26.6 Low 41.0-52.0 % LAB 787-2(LOINC) Observation 84 80-100 fL LAB 785-6(LOINC) Hemoglobin 24.9 Low 26.0-34.0 pg LAB 786-4(LOINC) Hemoglobin 29.7 Low 32.0-36.0 g/dL LAB 788-0(LOINC) Observation 16.6 High 11.5-14.5 % LAB 777-3(LOINC) Platelets 144 Low 150-450 x10*3/uL LAB 770-8(LOINC) Neutrophils/Aye kocytes 74.1 40.0-80.0 % LAB 60091-2(LOINC ) Granulocytes.im mature/Leukocyt es 1.6 High 0.0-0.9 % Result Comment: Immature Gra nulocyte Count (IG) includes promyelocytes, myelocytes and metamyelocytes but does not include bands. Percent differential counts (%) should be interpreted in the context of the absolute cell counts (cells/UL). LAB 736-9(LOINC) Lymphocytes/Aye kocytes 9.3 13.0-44.0 % LAB 5905-5(LOINC) Monocytes/Leuko cytes 13.7 2.0-10.0 % LAB 713-8(LOINC) Eosinophils/Aye kocytes 0.8 0.0-6.0 % LAB 706-2(LOINC) Basophils/Leuko cytes 0.5 0.0-2.0 % LAB 751-8(LOINC) Neutrophils 2.86 1.20-7.70 x10*3 /uL Result Comment: Percent diff erential counts (%) should be interpreted in the context of the absolute cell counts (cells/uL). LAB 97608-4(LOINC ) Granulocytes.im mature 0.06 0.00-0.70 x10*3/uL LAB 731-0(LOINC) Lymphocytes 0.36 Low 1.20-4.80 x10*3 /uL LAB 742-7(LOINC) Monocytes 0.53 0.10-1.00 x10*3/u L LAB 711-2(LOINC) Eosinophils 0.03 0.00-0.70 x10*3 /uL LAB 704-7(LOINC) Basophils 0.02 0.00-0.10 x10*3/u L Performed By: #### 44990-1 # ### JASON Morales ([id number]) [facility] ([facility]) [address] [place] [address] MAGNESIUM Collected: 6:21 AM Status: F Source: [facility] TYPE CODE TESTS RESULT OUT OF RANGE REFERENCE UNITS LAB 91156-1(LOINC) Magnesium 1.69 1.60-2.40 mg/dL Performed By: #### 00444-3 # ### JASON Morales ([id number]) [facility] ([facility]) [address] [place] [address] RENAL FUNCTION 2000 PANEL Collected: 6:21 AM Status: F Source: [facility] TYPE CODE TESTS RESULT OUT OF RANGE REFERENCE UNITS LAB 2345-7(LOINC) Glucose 140 High 74-99 mg/dL LAB 2951-2(LOINC) Sodium 134 Low 136-145 mmol/L LAB 2823-3(LOINC) Potassium 3.7 3.5-5.3 mmol/L LAB 2075-0(LOINC) Chloride 105 98-107 mmol/L LAB 2028-9(LOINC) Carbon dioxide 23 21-32 mmo l/L LAB 55355-8(LOINC) Anion gap 10 10-20 mmol/L LAB 3094-0(LOINC) Urea nitrogen 35 High 6-23 mg/d L LAB 2160-0(LOINC) Creatinine 1.74 High 0.50-1.30 mg/dL LAB 50142-3(LOINC) Glomerular filtration rate 45 Low >60 mL/min/1 .73m*2 Result Comment: Calculations of estimated GFR are performed using the 2020 CKD- EPI Study Refit equation without the race variable for the IDMS-Traceable creatinine methods. https://jasn.asnjournals.org/content/early//ASN.3488642914 LAB 02208-2(LOINC) Calcium 8.5 Low 8.6-10.6 mg/dL LAB 2777-1(LOINC) Phosphate 3.8 2.5-4.9 mg/dL LAB 60937-0(LOINC) Albumin 3.5 3.4-5.0 g/dL Performed By: #### 93930-5 # ### JASON Morales ([id number]) [facility] ([facility]) [address] [place] [address] TACROLIMUS Collected: 5 6:21 AM Status: F Source: [facility] Order Comment: NOTE: Result was obtained using a chemiluminescent microparticle immunoassay (CMIA) on the Computer [employer] Hardware Analyst i system. Optimal therapeutic ranges for immunosuppressant drugs depend upon an individual patient's current clinical state, type of organ transplant, time post-transplant, co-administration of other immunosuppressants, and other clinical factors. The results of this test should be correlated with additional clinical and laboratory data before changes in treatment regimens are made. TYPE CODE TESTS RESULT OUT OF RANGE REFERENCE UNITS LAB 13038-8(LOINC) Tacrolimus 3.9 <=15.0 ng/mL Performed By: #### 70456-5 # ### JASON Morales ([id number]) [facility] ([facility]) [address] [place] [address] GLUCOSE Collected: 3:08 AM Status: F Source: [facility] TYPE CODE TESTS RESULT OUT OF RANGE REFERENCE UNITS LAB 2341-6(LOINC) Glucose 109 High 74-99 mg/dL Performed By: #### 2341-6 ## ## JASON SCHMOTZER L ([id number]) [facility] ([facility]) [address] [place] [address] GLUCOSE Collected: 12:14 AM Status: F Source: [facility] TYPE CODE TESTS RESULT OUT OF RANGE REFERENCE UNITS LAB 2341-6(LOINC) Glucose 100 High 74-99 mg/dL Performed By: #### 2341-6 ## ## JASON SCHMOTZER L ([id number]) [facility] ([facility]) [address] [place] [address] GLUCOSE Collected: 9:08 PM Status: F Source: [facility] TYPE CODE TESTS RESULT OUT OF RANGE REFERENCE UNITS LAB 2341-6(LOINC) Glucose 152 High 74-99 mg/dL Performed By: #### 2341-6 ## ## JASON SCHMOTZER L ([id number]) [facility] ([facility]) [address] [place] [address] GLUCOSE Collected: 3:11 PM Status: F Source: [facility] TYPE CODE TESTS RESULT OUT OF RANGE REFERENCE UNITS LAB 2341-6(LOINC) Glucose 96 74-99 mg/dL Performed By: #### 2341-6 ## ## JASON SCHMOTZER L ([id number]) [facility] ([facility]) [address] [place] [address]182 GLUCOSE Collected: 11:45 AM Status: F Source: [facility] TYPE CODE TESTS RESULT OUT OF RANGE REFERENCE UNITS LAB 2341-6(LOINC) Glucose 160 High 74-99 mg/dL Performed By: #### 2341-6 ## ## JASON SCHMOTZER L ([id number]) [facility] ([facility]) [address] [place] [address] RENAL FUNCTION 2000 PANEL Collected: 9:45 AM Status: F Source: [facility] TYPE CODE TESTS RESULT OUT OF RANGE REFERENCE UNITS LAB 2345-7(LOINC) Glucose 181 High 74-99 mg/dL LAB 2951-2(LOINC) Sodium 135 Low 136-145 mmol/L LAB 2823-3(LOINC) Potassium 4.1 3.5-5.3 mmol/L LAB 2075-0(LOINC) Chloride 106 98-107 mmol/L LAB 2027-9(LOINC) Carbon dioxide 23 21-32 mmo l/L LAB 99614-5(LOINC) Anion gap 10 10-20 mmol/L LAB 3094-0(LOINC) Urea nitrogen 29 High 6-23 mg/d L LAB 2160-0(LOINC) Creatinine 1.84 High 0.50-1.30 mg/dL LAB 62354-0(LOINC) Glomerular filtration rate 42 Low >60 mL/min/1 .73m*2 Result Comment: Calculations of estimated GFR are performed using the 2020 CKD- EPI Study Refit equation without the race variable for the IDMS-Traceable creatinine methods. https://jasn.asnjournals.org/content///ASN.3498490402 LAB 07403-8(LOINC) Calcium 8.8 8.6-10.6 mg/dL LAB 2777-1(LOINC) Phosphate 3.0 2.5-4.9 mg/dL LAB 23853-2(LOINC) Albumin 3.6 3.4-5.0 g/dL Performed By: #### 88508-6 # ### JASON JENNINGS L ([id number]) [facility] ([facility]) [address] [place] [address] GLUCOSE Collected: 7:29 AM Status: F Source: [facility] TYPE CODE TESTS RESULT OUT OF RANGE REFERENCE UNITS LAB 2341-6(LOINC) Glucose 173 High 74-99 mg/dL Performed By: #### 2341-6 ## ## JASON SCHMOTZER L ([id number]) [facility] ([facility]) [address] [place] [address] GLUCOSE Collected: 5:56 AM Status: F Source: [facility] TYPE CODE TESTS RESULT OUT OF RANGE REFERENCE UNITS LAB 2341-6(LOINC) Glucose 191 High 74-99 mg/dL Performed By: #### 2341-6 ## ## JASON Morales ([id number]) [facility] ([facility]) [address] [place] [address] COMPLETE BLOOD COUNT W AUTO DIFFERENTIAL PANEL Collected: 03/03/2025 5:47 AM Status: F Source: [facility] TYPE CODE TESTS RESULT OUT OF RANGE REFERENCE UNITS LAB 6690-2(LOINC) Leukocytes 3.6 Low 4.4-11.3 x10*3/ uL LAB 77223-2(LOINC ) Erythrocytes.nu cleated/Leukocy mega 0.0 0.0-0.0 /100 WBCs LAB 789-8(LOINC) Erythrocytes 3.25 Low 4.50-5.90 x10* 6/uL LAB 718-7(LOINC) Hemoglobin 8.3 Low 13.5-17.5 g/dL LAB 4544-3(LOINC) Erythrocyte/Blo od 29.4 Low 41.0-52.0 % LAB 787-2(LOINC) Observation 91 80-100 fL LAB 785-6(LOINC) Hemoglobin 25.5 Low 26.0-34.0 pg LAB 786-4(LOINC) Hemoglobin 28.2 Low 32.0-36.0 g/dL LAB 788-0(LOINC) Observation 17.2 High 11.5-14.5 % LAB 777-3(LOINC) Platelets 125 Low 150-450 x10*3/uL LAB 770-8(LOINC) Neutrophils/Aye kocytes 75.5 40.0-80.0 % LAB 20730-2(LOINC ) Granulocytes.im mature/Leukocyt es 1.7 High 0.0-0.9 % Result Comment: Immature Gra nulocyte Count (IG) includes promyelocytes, myelocytes and metamyelocytes but does not include bands. Percent differential counts (%) should be interpreted in the context of the absolute cell counts (cells/UL). LAB 736-9(LOINC) Lymphocytes/Aye kocytes 9.3 13.0-44.0 % LAB 5905-5(LOINC) Monocytes/Leuko cytes 12.4 2.0-10.0 % LAB 713-8(LOINC) Eosinophils/Aye kocytes 0.8 0.0-6.0 % LAB 706-2(LOINC) Basophils/Leuko cytes 0.3 0.0-2.0 % LAB 751-8(LOINC) Neutrophils 2.69 1.20-7.70 x10*3 /uL Result Comment: Percent diff erential counts (%) should be interpreted in the context of the absolute cell counts (cells/uL). LAB 70216-6(LOINC ) Granulocytes.im mature 0.06 0.00-0.70 x10*3/uL LAB 731-0(LOINC) Lymphocytes 0.33 Low 1.20-4.80 x10*3 /uL LAB 742-7(LOINC) Monocytes 0.44 0.10-1.00 x10*3/u L LAB 711-2(LOINC) Eosinophils 0.03 0.00-0.70 x10*3 /uL LAB 704-7(LOINC) Basophils 0.01 0.00-0.10 x10*3/u L Performed By: #### 90448-5 # ### JASON Morales ([id number]) [facility] ([facility]) [address] [place] [address] MAGNESIUM Collected: 5:47 AM Status: F Source: [facility] TYPE CODE TESTS RESULT OUT OF RANGE REFERENCE UNITS LAB 35362-1(LOINC) Magnesium 2.24 1.60-2.40 mg/dL Performed By: #### 00098-8 # ### JASON Morales ([id number]) [facility] ([facility]) [address] [place] [address] RENAL FUNCTION 2000 PANEL Collected: 5:47 AM Status: F Source: [facility] TYPE CODE TESTS RESULT OUT OF RANGE REFERENCE UNITS LAB 2345-7(LOINC) Glucose 203 High 74-99 mg/dL LAB 2951-2(LOINC) Sodium 135 Low 136-145 mmol/L LAB 2823-3(LOINC) Potassium 4.6 3.5-5.3 mmol/L LAB 2075-0(LOINC) Chloride 107 98-107 mmol/L LAB 8-9(LOINC) Carbon dioxide 15 Low 21-32 mmo l/L LAB 21268-6(LOINC) Anion gap 18 10-20 mmol/L LAB 3094-0(LOINC) Urea nitrogen 29 High 6-23 mg/d L LAB 2160-0(LOINC) Creatinine 1.75 High 0.50-1.30 mg/dL LAB 12141-8(LOINC) Glomerular filtration rate 45 Low >60 mL/min/1 .73m*2 Result Comment: Calculations of estimated GFR are performed using the 2020 CKD- EPI Study Refit equation without the race variable for the IDMS-Traceable creatinine methods. https://jasn.asnjournals.org/content/early//ASN.2308923021 LAB 66269-8(LOINC) Calcium 8.3 Low 8.6-10.6 mg/dL LAB 2777-1(LOINC) Phosphate 3.5 2.5-4.9 mg/dL LAB 70762-9(LOINC) Albumin 3.3 Low 3.4-5.0 g/dL Performed By: #### 14488-7 # ### JASON Morales ([id number]) [facility] ([facility]) [address] [place] [address] TACROLIMUS Collected: 5 5:47 AM Status: F Source: [facility] Order Comment: NOTE: Result was obtained using a chemiluminescent microparticle immunoassay (CMIA) on the [employer] Hard[employer] Analyst i system. Optimal therapeutic ranges for immunosuppressant drugs depend upon an individual patient's current clinical state, type of organ transplant, time post-transplant, co-administration of other immunosuppressants, and other clinical factors. The results of this test should be correlated with additional clinical and laboratory data before changes in treatment regimens are made. TYPE CODE TESTS RESULT OUT OF RANGE REFERENCE UNITS LAB 31873-7(LOINC) Tacrolimus 4.2 <=15.0 ng/mL Performed By: #### 18990-4 # ### JASON Morales ([id number]) [facility] ([facility]) [address] [place] [address]228 GLUCOSE Collected: 5 12:22 AM Status: F Source: [facility] TYPE CODE TESTS RESULT OUT OF RANGE REFERENCE UNITS LAB 2341-6(LOINC) Glucose 180 High 74-99 mg/dL Performed By: #### 2341-6 ## ## JASON SCHMOTZER L ([id number]) [facility] ([facility]) [address] [place] [address] 02476 GLUCOSE Collected: 8:29 PM Status: F Source: [facility] TYPE CODE TESTS RESULT OUT OF RANGE REFERENCE UNITS LAB 2341-6(LOINC) Glucose 216 High 74-99 mg/dL Performed By: #### 2341-6 ## ## JASON SCHMOTZER L ([id number]) [facility] ([facility]) [address] [place] [address] 46075 GLUCOSE Collected: 5 2:54 PM Status: F Source: [facility] TYPE CODE TESTS RESULT OUT OF RANGE REFERENCE UNITS LAB 2341-6(LOINC) Glucose 150 High 74-99 mg/dL Performed By: #### 2341-6 ## ## JASON SCHMOTZER L ([id number]) [facility] ([facility]) [address] [place] [address] 56371 GLUCOSE Collected: 5 10:58 AM Status: F Source: [facility] TYPE CODE TESTS RESULT OUT OF RANGE REFERENCE UNITS LAB 2341-6(LOINC) Glucose 262 High 74-99 mg/dL Performed By: #### 2341-6 ## ## JASON SCHMOTZER L ([id number]) [facility] ([facility]) [address] [place] [address] 01646 GLUCOSE Collected: 5 7:31 AM Status: F Source: [facility] TYPE CODE TESTS RESULT OUT OF RANGE REFERENCE UNITS LAB 2341-6(LOINC) Glucose 224 High 74-99 mg/dL Performed By: #### 2341-6 ## ## JASON SCHMOTZER L ([id number]) [facility] ([facility]) [address] [place] [address] 96217 PT Collected: 5:28 AM Status: F Source: [facility] Order Comment: The APTT is n o longer used for monitoring Unfractionated Heparin Therapy. For monitoring Heparin Therapy, use the Heparin Assay. TYPE CODE TESTS RESULT OUT OF RANGE REFERENCE UNITS LAB 5902-2(LOINC) Coagulation tissue factor induced 13.2 High 9.8-12.4 seconds LAB 6301-6(LOINC) Coagulation tissue factor induced.INR 1.2 High 0.9-1.1 NA LAB 30677-3(LOINC) Coagulation surface induced 27 26-36 seconds Performed By: #### 77869-0 # ### JASON Morales ([id number]) [facility] ([facility]) [address] [place] [address] COMPLETE BLOOD COUNT PANEL Collected: 03/02/2025 5:28 AM Status: F Source: [facility] TYPE CODE TESTS RESULT OUT OF RANGE REFERENCE UNITS LAB 6690-2(LOINC) Leukocytes 3.6 Low 4.4-11.3 x10*3/ uL LAB 54917-6(LOINC) Erythrocytes.nuc leated/Leukocyte s 0.0 0.0-0.0 /100 WBCs LAB 789-8(LOINC) Erythrocytes 3.07 Low 4.50-5.90 x10* 6/uL LAB 718-7(LOINC) Hemoglobin 7.9 Low 13.5-17.5 g/dL LAB 4544-3(LOINC) Erythrocyte/Bloo d 25.7 Low 41.0-52.0 % LAB 787-2(LOINC) Observation 84 80-100 fL LAB 785-6(LOINC) Hemoglobin 25.7 Low 26.0-34.0 pg LAB 786-4(LOINC) Hemoglobin 30.7 Low 32.0-36.0 g/dL LAB 788-0(LOINC) Observation 16.9 High 11.5-14.5 % LAB 777-3(LOINC) Platelets 153 150-450 x10*3/uL Performed By: #### 69356-7 # ### JASON Morales ([id number]) [facility] ([facility]) [address] [place], [place] [id number] MAGNESIUM Collected: 5:28 AM Status: F Source: [facility] TYPE CODE TESTS RESULT OUT OF RANGE REFERENCE UNITS LAB 11314-3(LOINC) Magnesium 1.86 1.60-2.40 mg/dL Performed By: #### 98849-1 # ### JASON Morales ([id number]) [facility] ([facility]) [address] [place] [id number] RENAL FUNCTION 2000 PANEL Collected: 5:28 AM Status: F Source: [facility] TYPE CODE TESTS RESULT OUT OF RANGE REFERENCE UNITS LAB 2345-7(LOINC) Glucose 219 High 74-99 mg/dL LAB 2951-2(LOINC) Sodium 136 136-145 mmol/L LAB 2823-3(LOINC) Potassium 4.5 3.5-5.3 mmol/L LAB 2075-0(LOINC) Chloride 108 High 98-107 mmol/L LAB 8-9(LOINC) Carbon dioxide 22 21-32 mmo l/L LAB 21852-5(LOINC) Anion gap 11 10-20 mmol/L LAB 3094-0(LOINC) Urea nitrogen 35 High 6-23 mg/d L LAB 2160-0(LOINC) Creatinine 2.14 High 0.50-1.30 mg/dL LAB 02443-6(LOINC) Glomerular filtration rate 35 Low >60 mL/min/1 .73m*2 Result Comment: Calculations of estimated GFR are performed using the 2020 CKD- EPI Study Refit equation without the race variable for the IDMS-Traceable creatinine methods. https://jasn.asnjournals.org/content/early//ASN.8959309118 LAB 76141-7(LOINC) Calcium 8.7 8.6-10.6 mg/dL LAB 2777-1(LOINC) Phosphate 3.4 2.5-4.9 mg/dL LAB 12105-1(LOINC) Albumin 3.4 3.4-5.0 g/dL Performed By: #### 46949-3 # ### JASON Morales ([id number]) [facility] ([facility]) [address] [place] [id number] TACROLIMUS Collected: 5 5:28 AM Status: F Source: [facility] Order Comment: NOTE: Result was obtained using a chemiluminescent microparticle immunoassay (CMIA) on the [employer] Hardware Analyst i system. Optimal therapeutic ranges for immunosuppressant drugs depend upon an individual patient's current clinical state, type of organ transplant, time post-transplant, co-administration of other immunosuppressants, and other clinical factors. The results of this test should be correlated with additional clinical and laboratory data before changes in treatment regimens are made. TYPE CODE TESTS RESULT OUT OF RANGE REFERENCE UNITS LAB 93036-3(LOINC) Tacrolimus 5.6 <=15.0 ng/mL Performed By: #### 76590-0 # ### JASON SUTHERLANDER L ([id number]) [facility] ([facility]) [address] [place], [place] [id number] GLUCOSE Collected: 5 5:27 AM Status: F Source: [facility] TYPE CODE TESTS RESULT OUT OF RANGE REFERENCE UNITS LAB 2341-6(LOINC) Glucose 222 High 74-99 mg/dL Performed By: #### 2341-6 ## ## JASON SCHMOTZER L ([id number]) [facility] ([facility]) [address] [place] [address] 17276 GLUCOSE Collected: 5 1:20 AM Status: F Source: [facility] TYPE CODE TESTS RESULT OUT OF RANGE REFERENCE UNITS LAB 2341-6(LOINC) Glucose 265 High 74-99 mg/dL Performed By: #### 2341-6 ## ## JASON SCHMOTZER L ([id number]) [facility] ([facility]) [address] [place] [address] 29431 GLUCOSE Collected: 5 9:38 PM Status: F Source: [facility] TYPE CODE TESTS RESULT OUT OF RANGE REFERENCE UNITS LAB 2341-6(LOINC) Glucose 313 High 74-99 mg/dL Performed By: #### 2341-6 ## ## JASON SCHMOTZER L ([id number]) [facility] ([facility]) [address] [place] [address] 19196 GLUCOSE Collected: 5 7:51 PM Status: F Source: [facility] TYPE CODE TESTS RESULT OUT OF RANGE REFERENCE UNITS LAB 2341-6(LOINC) Glucose 407 High 74-99 mg/dL Performed By: #### 2341-6 ## ## JASON CLARKMOTZER L ([id number]) [facility] ([facility]) [address] [place] [address] 71139 GLUCOSE Collected: 5 5:21 PM Status: F Source: [facility] TYPE CODE TESTS RESULT OUT OF RANGE REFERENCE UNITS LAB 2341-6(LOINC) Glucose 359 High 74-99 mg/dL Performed By: #### 2341-6 ## ## JASON SCHMOTZER L ([id number]) [facility] ([facility]) [address] [place] [address] 33547 RETICULOCYTES PANEL Collected: 03/01/20 25 12:26 PM Status: F Source: [facility] TYPE CODE TESTS RESULT OUT OF RANGE REFERENCE UNITS LAB 17177-9(LOINC ) Reticulocytes/Er ythrocytes 1.7 0.5-2.0 % LAB 31507-4(LOINC ) Reticulocytes 0.052 0.022-0.118 x10*6/u L LAB 24087-4(LOINC ) Hemoglobin 20 Low 28-38 pg LAB IRF IMMATURE RETIC FRACTION 14.8 <=16.0 % Result Comment: Reticulocyte s are measured based on a fluorescent technique. The IRF, or immature reticulocyte fraction, is the percent of reticulocytes that show medium (MFR) or high (HFR) fluorescence. This value can be used to assess the relative maturity of the reticulocyte population in response to anemia. The "shift reticulocytes" are not measured by this technique, eliminating the need for their correction in the reticulocyte index. Performed By: #### 60857-8 # ### JASON CLARKMOTZER L ([id number]) [facility] ([facility]) [address] [place] [address] 50226 HAPTOGLOBIN Collected: 5 12:26 PM Status: F Source: [facility] TYPE CODE TESTS RESULT OUT OF RANGE REFERENCE UNITS LAB 59970-6(LOINC) Haptoglobin 101 30-200 mg/dL Performed By: #### 20663-0 # ### JASON Morales ([id number]) [facility] ([facility]) [address] [place] [address] 50038 HEPATIC FUNCTION 2000 PANEL Collected: 03/01/2025 12: 26 PM Status: F Source: [facility] TYPE CODE TESTS RESULT OUT OF RANGE REFERENCE UNITS LAB 97720-3(LOINC ) Albumin 3.7 3.4-5.0 g/dL LAB 1974-2(LOINC) Bilirubin 0.8 0.0-1.2 mg/dL LAB 7(LOINC) Bilirubin.glucur danielle dated+Bilirubin.alb umin bound 0.2 0.0-0.3 mg/dL LAB 6768-6(LOINC) Alkaline phosphatase 47 33-120 U/L LAB 1743-4(LOINC) Alanine aminotransferase 21 10-52 U/L Result Comment: Patients paco ated with Sulfasalazine may generate falsely decreased results for ALT. LAB 32342-2(LOINC ) Aspartate aminotransferase 16 9-39 U/L LAB 2885-2(LOINC) Protein 5.7 Low 6.4-8.2 g/dL Performed By: #### 57986-4 # ### JASON Morales ([id number]) [facility] ([facility]) [address] [place] [address] 65109 LACTATE DEHYDROGENASE Collected: 03/01/2025 12:26 PM Status: F Source: [facility] TYPE CODE TESTS RESULT OUT OF RANGE REFERENCE UNITS LAB 75189-5(INC) Lactate dehydrogenase 203 84-246 U/L Performed By: #### 32232-3 # ### JASON Morales ([id number]) [facility] ([facility]) [address] [place] [address] 77236 GLUCOSE Collected: 12:20 PM Status: F Source: [facility] TYPE CODE TESTS RESULT OUT OF RANGE REFERENCE UNITS LAB 2341-6(LOINC) Glucose 196 High 74-99 mg/dL Performed By: #### 2341-6 ## ## JASON Morales ([id number]) [facility] ([facility]) [address] [place] [address] 90676 GLUCOSE Collected: 8:14 AM Status: F Source: [facility] TYPE CODE TESTS RESULT OUT OF RANGE REFERENCE UNITS LAB 2341-6(LOINC) Glucose 253 High 74-99 mg/dL Performed By: #### 2341-6 ## ## JASON Morales ([id number]) [facility] ([facility]) [id number] [place], [place] [id number] TACROLIMUS Collected: 5:52 AM Status: F Source: [facility] Order Comment: NOTE: Result was obtained using a chemiluminescent microparticle immunoassay (CMIA) on the [employer] Hardware Analyst i system. Optimal therapeutic ranges for immunosuppressant drugs depend upon an individual patient's current clinical state, type of organ transplant, time post-transplant, co-administration of other immunosuppressants, and other clinical factors. The results of this test should be correlated with additional clinical and laboratory data before changes in treatment regimens are made. TYPE CODE TESTS RESULT OUT OF RANGE REFERENCE UNITS LAB 37636-6(LOINC) Tacrolimus 3.6 <=15.0 ng/mL Performed By: #### 68472-6 # ### JASON Morales ([id number]) [facility] ([facility]) [address] [place] [address] XR CHEST 1 VIEW Observed: 03/01/2025 3:00 AM Status: F Source: [facility] Interpreted By: Sam Tapia, STUDY: XR CHEST 1 VIEW; 03/01/2025 3:44 am INDICATION: Signs/Symptoms:daily icu. COMPARISON: Chest radiograph dated 02/28/2025; CT abdomen pelvis 02/28/2025 ACCESSION NUMBER(S): [id number] ORDERING CLINICIAN: VIANEY SCHAFER FINDINGS: AP radiograph of the chest The heart is normal in size. Coarse interstitial lung markings are noted. No acute pulmonary infiltrates, consolidations or effusions are noted. IMPRESSION: 1. No evidence of acute cardiopulmonary process. Signed by: Elmer Tapia 03/01/2025 2:42 PM Dictation workstation: [id number] COMPLETE BLOOD COUNT PANEL Collected: 03/01/2025 1:12 AM Status: F Source: [facility] TYPE CODE TESTS RESULT OUT OF RANGE REFERENCE UNITS LAB 6690-2(LOINC) Leukocytes 4.0 Low 4.4-11.3 x10*3/ uL LAB 43196-0(LOINC) Erythrocytes.nuc leated/Leukocyte s 0.0 0.0-0.0 /100 WBCs LAB 789-8(LOINC) Erythrocytes 3.12 Low 4.50-5.90 x10* 6/uL LAB 718-7(LOINC) Hemoglobin 8.2 Low 13.5-17.5 g/dL LAB 4544-3(LOINC) Erythrocyte/Bloo d 26.1 Low 41.0-52.0 % LAB 787-2(LOINC) Observation 84 80-100 fL LAB 785-6(LOINC) Hemoglobin 26.3 26.0-34.0 pg LAB 786-4([facility]) Hemoglobin 31.4 Low 32.0-36.0 g/dL LAB 788-0([facility]) Observation 17.1 High 11.5-14.5 % LAB 777-3(LOINC) Platelets 165 150-450 x10*3/uL Performed By: #### 98540-1 # ### JASON Morales ([id number]) [facility] ([facility]) [address] [place] [address] PT Collected: 5 1:12 AM Status: F Source: [facility] Order Comment: The APTT is n o longer used for monitoring Unfractionated Heparin Therapy. For monitoring Heparin Therapy, use the Heparin Assay. TYPE CODE TESTS RESULT OUT OF RANGE REFERENCE UNITS LAB 5902-2([facility]) Coagulation tissue factor induced 12.9 High 9.8-12.4 seconds LAB 6301-6([facility]) Coagulation tissue factor induced.INR 1.2 High 0.9-1.1 NA LAB 88186-5([facility]) Coagulation surface induced 26 26-36 seconds Performed By: #### 55312-8 # ### JASON Morales ([id number]) [facility] ([facility]) [address] [place] [address] MAGNESIUM Collected: 5 1:12 AM Status: F Source: [facility] TYPE CODE TESTS RESULT OUT OF RANGE REFERENCE UNITS LAB 85453-4([facility]) Magnesium 1.94 1.60-2.40 mg/dL Performed By: #### 53994-1 # ### JASON Morales ([id number]) [facility] ([facility]) [address] [place] [id number] RENAL FUNCTION 2000 PANEL Collected: 1:12 AM Status: F Source: [facility] TYPE CODE TESTS RESULT OUT OF RANGE REFERENCE UNITS LAB 2345-7(LOINC) Glucose 206 High 74-99 mg/dL LAB 2951-2(LOINC) Sodium 137 136-145 mmol/L LAB 2823-3(LOINC) Potassium 4.5 3.5-5.3 mmol/L LAB 2075-0(LOINC) Chloride 109 High 98-107 mmol/L LAB 2028-9(LOINC) Carbon dioxide 21 21-32 mmo l/L LAB 65930-3(LOINC) Anion gap 12 10-20 mmol/L LAB 3094-0(LOINC) Urea nitrogen 42 High 6-23 mg/d L LAB 2160-0(LOINC) Creatinine 2.07 High 0.50-1.30 mg/dL LAB 45530-6(LOINC) Glomerular filtration rate 37 Low >60 mL/min/1 .73m*2 Result Comment: Calculations of estimated GFR are performed using the 2020 CKD- EPI Study Refit equation without the race variable for the IDMS-Traceable creatinine methods. https://jasn.asnjournals.org/content///ASN.1050854366 LAB 49979-0(LOINC) Calcium 8.4 Low 8.6-10.6 mg/dL LAB 2777-1(LOINC) Phosphate 3.6 2.5-4.9 mg/dL LAB 65594-1(LOINC) Albumin 3.7 3.4-5.0 g/dL Performed By: #### 12042-9 # ### JASON Morales ([id number]) [facility] ([facility]) [address] [place] [address] CALCIUM.IONIZED Collected: 1:12 AM Status: F Source: [facility] TYPE CODE TESTS RESULT OUT OF RANGE REFERENCE UNITS LAB 1994-3(LOINC) Calcium.ion ized 1.17 1.1-1.33 mmol/L Result Comment: The performa nce characteristics of ionized calcium tested in heparinized plasma or serum have been validated by the individual laboratory site where testing is performed. Testing on heparinized plasma or serum is not approved by the FDA; however, such approval is not necessary. Performed By: #### 1994-3 ## ## JASON Morales ([id number]) [facility] ([facility]) [id number] [place] [address] PARVOVIRUS B19 DNA Collected: 1:12 AM Status: F Source: [facility] TYPE CODE TESTS RESULT OUT OF RANGE REFERENCE UNITS LAB 86403-7(LOINC) Parvovirus B19 DNA Not Detected Not Detected IU/mL Result Comment: HEMOLYSIS NO MARLENY; LYSIS OF RED OR WHITE BLOOD CELLS MAY RESULT IN RELEASE OF PATHOGEN INTO SAMPLE. Assay Range: 199 IU/mL to 1.38E+10 IU/mL The limit of quantitation (LOQ) is 199 IU/mL. Parvovirus B19 DNA detected below the LOQ will be reported as Detected:<199 IU/mL. This test was developed and its performance characteristics determined by [employer]. It has not been cleared or approved by the U.S. Food and Drug Administration. Results should be used in conjunction with clinical findings, and should not form the sole basis for a diagnosis or treatment decision. Testing Performed at: [facility] [address] [place] [address], [address] [place] [address] Internet Marketing Intern: Todd Gonzalez, PhD [facility] ([facility]) CLIA # [id number] FLAG Interpretation: A = Abnormal, H = High, L = Low Performed By: #### 9572-9 ## ## [facility] ([id number]) [address] [place] [address] XR CHEST 1 VIEW Observed: 02/28/2025 9:08 PM Status: F Source: [facility] Interpreted By: Sam Tapia and Nigel Ratliff STUDY: XR CHEST 1 VIEW; 02/28/2025 10:33 pm INDICATION: Signs/Symptoms:icu admit. COMPARISON: XR chest 10/15/2024 ACCESSION NUMBER(S): [id number] ORDERING CLINICIAN: VIANEY SCHAFER FINDINGS: AP radiograph of the chest was provided. CARDIOMEDIASTINAL SILHOUETTE: Cardiomediastinal silhouette is unchanged in size and configuration. LUNGS: No focal consolidation, pleural effusion, or pneumothorax. ABDOMEN: No remarkable upper abdominal findings. BONES: No acute osseous changes. IMPRESSION: 1. No evidence of acute cardiopulmonary process. I personally reviewed the images/study and I agree with the findings as stated by Gaudencio Manning DO PGY-3. This study was interpreted at [place], [place]. MACRO: None Signed by: Elmer Tapia 03/01/2025 1:24 PM Dictation workstation: [id number] CALCIUM.IONIZED Collected: 8:21 PM Status: F Source: [facility] TYPE CODE TESTS RESULT OUT OF RANGE REFERENCE UNITS LAB 1993-08([facility]) Calcium.ion ized 1.22 1.1-1.33 mmol/L Result Comment: The performa nce characteristics of ionized calcium tested in heparinized plasma or serum have been validated by the individual laboratory site where testing is performed. Testing on heparinized plasma or serum is not approved by the FDA; however, such approval is not necessary. Performed By: #### 1994-3 ## ## JASON Morales ([id number]) [facility] ([facility]) [address] [place] [address] PT Collected: 8:21 PM Status: F Source: [facility] Order Comment: The APTT is n o longer used for monitoring Unfractionated Heparin Therapy. For monitoring Heparin Therapy, use the Heparin Assay. TYPE CODE TESTS RESULT OUT OF RANGE REFERENCE UNITS LAB 5902-2(LOINC) Coagulation tissue factor induced 12.9 High 9.8-12.4 seconds LAB 6301-6(LOINC) Coagulation tissue factor induced.INR 1.2 High 0.9-1.1 NA LAB 23665-2(LOINC) Coagulation surface induced 25 Low 26-36 seconds Performed By: #### 29002-8 # ### JASON Morales ([id number]) [facility] ([facility]) [address] [place], [place] [id number] FIBRINOGEN Collected: 5 8:21 PM Status: F Source: [facility] TYPE CODE TESTS RESULT OUT OF RANGE REFERENCE UNITS LAB 3255-7(LOINC) Fibrinogen 161 Low 200-400 mg/dL Performed By: #### 3255-7 ## ## JASON Morales ([id number]) [facility] ([facility]) [id number] [place], [place] [id number] COMPLETE BLOOD COUNT PANEL Collected: 02/28/2025 8:21 PM Status: F Source: [facility] TYPE CODE TESTS RESULT OUT OF RANGE REFERENCE UNITS LAB 6690-2(LOINC) Leukocytes 4.0 Low 4.4-11.3 x10*3/ uL LAB 15740-3(LOINC) Erythrocytes.nuc leated/Leukocyte s 0.0 0.0-0.0 /100 WBCs LAB 789-8(LOINC) Erythrocytes 2.82 Low 4.50-5.90 x10* 6/uL LAB 718-7(LOINC) Hemoglobin 7.0 Low 13.5-17.5 g/dL LAB 4544-3(LOINC) Erythrocyte/Bloo d 24.1 Low 41.0-52.0 % LAB 787-2(LOINC) Observation 86 80-100 fL LAB 785-6(LOINC) Hemoglobin 24.8 Low 26.0-34.0 pg LAB 786-4(LOINC) Hemoglobin 29.0 Low 32.0-36.0 g/dL LAB 788-0(LOINC) Observation 18.1 High 11.5-14.5 % LAB 777-3(LOINC) Platelets 148 Low 150-450 x10*3/uL Performed By: #### 18066-4 # ### JASON Morales ([id number]) [facility] ([facility]) [id number] [place] [address] MAGNESIUM Collected: 8:21 PM Status: F Source: [facility] TYPE CODE TESTS RESULT OUT OF RANGE REFERENCE UNITS LAB 59139-1(LOINC) Magnesium 1.97 1.60-2.40 mg/dL Performed By: #### 89194-1 # ### JASON Morales ([id number]) [facility] ([facility]) [address] [place], [place] [id number] RENAL FUNCTION 2000 PANEL Collected: 8:21 PM Status: F Source: [facility] TYPE CODE TESTS RESULT OUT OF RANGE REFERENCE UNITS LAB 2345-7(LOINC) Glucose 260 High 74-99 mg/dL LAB 2951-2(LOINC) Sodium 137 136-145 mmol/L LAB 2823-3(LOINC) Potassium 5.3 3.5-5.3 mmol/L Result Comment: MILD HEMOLYS IS DETECTED. The result may be falsely elevated due to hemolysis or other interferents. Clinical correlation is recommended. Repeat testing may be considered. LAB 2075-0(LOINC) Chloride 109 High 98-107 mmol/L LAB 8-9(LOINC) Carbon dioxide 22 21-32 mmo l/L LAB 85408-8(LOINC) Anion gap 11 10-20 mmol/L LAB 3094-0(LOINC) Urea nitrogen 45 High 6-23 mg/d L LAB 2160-0(LOINC) Creatinine 2.20 High 0.50-1.30 mg/dL LAB 89040-0(LOINC) Glomerular filtration rate 34 Low >60 mL/min/1 .73m*2 Result Comment: Calculations of estimated GFR are performed using the 2020 CKD- EPI Study Refit equation without the race variable for the IDMS-Traceable creatinine methods. https://jasn.asnjournals.org/content/early//ASN.2870444336 LAB 48266-9(LOINC) Calcium 8.6 8.6-10.6 mg/dL LAB 2777-1(LOINC) Phosphate 3.9 2.5-4.9 mg/dL Result Comment: MILD HEMOLYS IS DETECTED. The result may be falsely elevated due to hemolysis or other interferents. Clinical correlation is recommended. Repeat testing may be considered. LAB 26860-1(LOINC) Albumin 3.7 3.4-5.0 g/dL Performed By: #### 22863-8 # ### JASON Morales ([id number]) [facility] ([facility]) [address] [place] [address] GAS PANEL Collected: 02/28/2025 8:10 PM Status: F Source: [facility] TYPE CODE TESTS RESULT OUT OF RANGE REFERENCE UNITS LAB 2746-6(LOINC) pH 7.31 Low 7.33-7.43 pH LAB 2020-4(LOINC) Carbon dioxide 46 41-51 mm Hg LAB 2705-2(LOINC) Oxygen 33 Low 35-45 mm Hg LAB 2711-0([facility]) Oxygen saturation 38 Low 45-75 % LAB 2716-9(INC) Oxyhemoglobin/H emoglobin.total 36.6 Low 45.0-75.0 % LAB 31094-0([facility]) Erythrocyte/Spe cimen Volume 22.0 Low 41.0-52.0 % LAB 36464-0([facility]) Sodium 136 136-145 mmol/L LAB 11152-4(INC) Potassium 5.6 High 3.5-5.3 mmol/L LAB 76892-4([facility]) Chloride 111 High 98-107 mmol/L LAB 93826-7([facility]) Calcium.ionized 1.29 1.10-1.33 mmol/L LAB 05721-1([facility]) Glucose 280 High 74-99 mg/dL LAB 2519-7(INC) Lactate 0.7 0.4-2.0 mmol/L LAB 1927-3(INC) Base excess -2.9 Low -2.0-3.0 mmol/ L LAB 51374-9(LOINC) Bicarbonate 23.2 22.0-26.0 mmo l/L LAB 07842-6(INC) Hemoglobin 7.2 Low 13.5-17.5 g/dL LAB 91258-5([facility]) Anion gap 7.0 Low 10.0-25.0 mmol/ L LAB 8310-5(INC) Body temperature 37.0 degrees Celsius LAB 3150-0([facility]) Oxygen/Gas.tota l 21 % Performed By: #### 82542-3 # ### JASON Morales ([id number]) [facility] ([facility]) [address] [place] [address] BLOOD TYPE Collected: 02/28/2025 8:09 PM Status: F Source: [facility] TYPE CODE TESTS RESULT OUT OF RANGE REFERENCE UNITS LAB 883-9([facility]) ABO group B LAB 1305-2([facility]) D Ag POS LAB 890-4([facility]) Blood group antibody NEG Performed By: #### 45620-6 # ### JASON Morales ([id number]) [facility] ([facility]) [address] [place] [address] CT ANGIO ABDOMEN PELVIS W AN D/OR WO IV IV CONTRAST Observed: 02/28/2025 7:56 PM Status: F Source: [facility] Interpreted By: Adams Vaca, and Yoni Sigala STUDY: CT ANGIO ABDOMEN PELVIS W AND/OR WO IV IV CONTRAST; 02/28/2025 9:13 pm INDICATION: Signs/Symptoms:s/p kidney transplant, acute anemia with c/f venu renal hematoma on CT AP, with contrast. COMPARISON: CT abdomen pelvis 05/30/2020 ACCESSION NUMBER(S): [id number] ORDERING CLINICIAN: VIANEY SCHAFER TECHNIQUE: Contiguous non-contrast axial images of the abdomen and pelvis were initially obtained. Thin-section axial images of the abdomen and pelvis were obtained in the arterial and portal venous phase after intravenous administration of 90 mL of Omnipaque 350 iodinated contrast. Sagittal and coronal reformatted images were provided. MIP images and 3D reconstructions were created on an independent workstation and reviewed. FINDINGS: VASCULATURE: ABDOMINAL AORTA: No abdominal aortic aneurysm or dissection. Moderate to severe abdominal aortic atherosclerosis that is predominantly calcified, without significant stenosis or aneurysmal dilation. ABDOMINAL and PELVIC ARTERIES: The celiac artery, superior mesenteric artery, bilateral renal arteries and inferior mesenteric artery are patent, without significant stenosis. The bilateral common iliacs, external iliacs and common femoral arteries are patent. There are calcified and noncalcified atherosclerotic changes causing moderate to severe stenosis of the bilateral internal iliac arteries. CT ABDOMEN/PELVIS: LOWER CHEST: No significant abnormality. ABDOMINAL WALL: No significant abnormality. LIVER: The liver is mildly enlarged measuring 17 cm in cranial caudal dimensions without evidence of focal liver lesions. BILE DUCTS: No significant intrahepatic or extrahepatic dilatation. GALLBLADDER: No significant abnormality. PANCREAS: No significant abnormality. SPLEEN: The spleen is mild enlarged measuring 11 cm in maximum coronal oblique axis without focal lesions. ADRENALS: No significant abnormality. KIDNEYS, URETERS, BLADDER: The bilateral capitan grande band kidneys are normal in size and enhance symmetrically. There is again noted normal fluid attenuation cystic lesion within the interpolar left kidney, measuring up to 2.1 cm, similar to prior exam. There are few bilateral cortical hypodensities, too small to characterize, likely favored to represent simple renal cysts. No hydroureteronephrosis or nephroureterolithiasis is identified. The bladder is unremarkable. Transplant kidney is noted in the right pelvis. There is no perinephric hematoma. There is very minor perinephric stranding along the posterior aspect of the upper and lower pole of the kidney, which is nonspecific. REPRODUCTIVE ORGANS: No significant abnormality. VESSELS: No significant abnormality (see above). RETROPERITONEUM/LYMPH NODES: No enlarged lymph nodes by CT criteria. No acute retroperitoneal abnormality. BOWEL/MESENTERY/PERITONEUM: The stomach appears unremarkable. The small and large bowel are normal in caliber without wall thickening. There is no definite visualization of appendix. However, there is no pericecal fat stranding. Trace amount of simple fluid in the pelvis and adjacent to the dome of the liver.. There is no focal fluid collection or free intraperitoneal air MUSCULOSKELETAL: No suspicious osseous lesions are identified. 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 Incidental Schmorl node noted at the superior endplate of L5 vertebral body. IMPRESSION: VASCULAR: 1. No acute abdominal aortic pathology, AAA, or dissection. There is extensive predominantly calcified atherosclerotic disease, as described above. 2. No evidence of active hemorrhage nor is there evidence of a perinephric hematoma. ABDOMEN PELVIS: 1. No acute process within the abdomen or pelvis. 2. Additional incidental non-acute findings as detailed above. I personally reviewed the images/study and I agree with the findings as stated by Dr. Zakiya Vallejo. This study was interpreted at [facility], [place], [place]. MACRO: None. Signed by: Won Vaca 03/01/2025 4:56 PM Dictation workstation: [id number] PROTEIN Collected: 10:45 AM Status: F Source: [facility] TYPE CODE TESTS RESULT OUT OF RANGE REFERENCE UNITS LAB 66987-8(LOINC) Protein 12 5-25 mg/dL LAB 2161-8(LOINC) Creatinine 44.9 20.0-370.0 mg/d L LAB 2890-2(LOINC) Protein/Creati nine 0.27 High 0.00-0.17 mg/mg Creat Performed By: #### 57266-0 # ### JASON Morales ([id number]) [facility] ([facility]) [address] [place], [place] [id number] COMPLETE BLOOD COUNT PANEL Collected: 01/20/2025 10:4 0 AM Status: F Source: [facility] TYPE CODE TESTS RESULT OUT OF RANGE REFERENCE UNITS LAB 6690-2(LOINC) Leukocytes 6.7 4.4-11.3 x10*3/ uL LAB 51768-6(LOINC) Erythrocytes.nuc leated/Leukocyte s 0.0 0.0-0.0 /100 WBCs LAB 789-8(LOINC) Erythrocytes 3.30 Low 4.50-5.90 x10* 6/uL LAB 718-7(LOINC) Hemoglobin 8.2 Low 13.5-17.5 g/dL LAB 4544-3(LOINC) Erythrocyte/Bloo d 27.2 Low 41.0-52.0 % LAB 787-2(LOINC) Observation 82 80-100 fL LAB 785-6(LOINC) Hemoglobin 24.8 Low 26.0-34.0 pg LAB 786-4(LOINC) Hemoglobin 30.1 Low 32.0-36.0 g/dL LAB 788-0(LOINC) Observation 18.8 High 11.5-14.5 % LAB 777-3(LOINC) Platelets 200 150-450 x10*3/uL Performed By: #### 14706-9 # ### JASON Morales ([id number]) [facility] ([facility]) [address] [place] [address] GLUCOSE^POST CFST Collected: 10:40 AM Status: F Source: [facility] Order Comment: INCREASED RIS K FOR DIABETES 100-125 mg/dL DIAGNOSTIC OF DIABETES >=126 mg/dL Diagnosis of diabetes mellitus requires confirmation of an abnormal result by repeat testing. [place] [employer], Diabetes Care; 47(Suppl.1):S20-S42) TYPE CODE TESTS RESULT OUT OF RANGE REFERENCE UNITS LAB 1558-6(LOINC) Glucose^post CFst 301 High 74-99 mg/dL Performed By: #### 1558-6 ## ## JASON CLARKRADHA Morales ([id number]) [facility] ([facility]) [address] [place] [address] LIPID 1996 PANEL Collected: 01/20/2025 10:40 AM Stat us: F Source: [facility] Order Comment: These lab mega t should be done fasting. This means do not eat or drink for at least 12 hours prior to getting your blood drawn. TYPE CODE TESTS RESULT OUT OF RANGE REFERENCE UNITS LAB 2093-3(LOINC) Cholesterol 138 0-199 mg/dL Result Comment: Age Desirabl e Borderline High High 0-19 Y 0 - 169 170 - 199 >/= 200 20-24 Y 0 - 189 190 - 224 >/= 225 >24 Y 0 - 199 200 - 239 >/= 240 All ranges are based on fasting samples. Specific therapeutic targets will vary based on patient-specific cardiac risk. Pediatric guidelines reference:Pediatrics 2011, 128(S5).Adult guidelines reference: NCEP ATPIII Guidelines,REMEDIOS 2001, 258:2486-97 Venipuncture immediately after or during the administration of Metamizole may lead to falsely low results. Testing should be performed immediately prior to Metamizole dosing. LAB 2085-9(LOINC) Cholesterol.in HDL 63.5 mg/dL Result Comment: Age Very Low Low Normal High 0-19 Y < 35 < 40 40-45 ---- 20-24 Y ---- < 40 >45 ---- >24 Y ---- < 40 40-60 >60 LAB CHHDL CHOLESTEROL/HDL RATIO 2.2 NA Result Comment: Ref Values Desirable < 3.4 High Risk > 5.0 LAB 56142-2(LOINC) Cholesterol.in LDL 59 <=99 mg/dL Result Comment: Near Borderl ine AGE Desirable Optimal High High Very High 0-19 Y 0 - 109 --- 110-129 >/= 130 ---- 20-24 Y 0 - 119 --- 120-159 >/= 160 ---- >24 Y 0 - 99 100-129 130-159 160-189 >/=190 LDL Cholesterol is calculated using the Friedewald equation. LAB VLDL VLDL 16 0-40 mg/dL LAB 2571-8(LOINC) Triglyceride 80 0-149 mg/dL Result Comment: Age Desirabl e Borderline High Very High SEX:B mg/dL mg/dL mg/dL mg/dL <=14D 86-277 ---- ---- ---- 15D-365D 55-277 ---- ---- ---- 1Y-9Y 0-74 75-99 >=100 ---- 10Y-19Y 0-89 90-129 >=130 ---- 20Y-24Y 0-114 115-149 >=150 ---- >= 25Y 0-149 150-199 200-499 >=500 Venipuncture immediately after or during the administration of Metamizole may lead to falsely low results. Testing should be performed immediately prior to Metamizole dosing. LAB NHDL NON HDL CHOLESTEROL 75 0-149 mg/dL Result Comment: Age Desirabl e Borderline High High Very High 0-19 Y 0 - 119 120 - 144 >/= 145 >/= 160 20-24 Y 0 - 149 150 - 189 >/= 190 ---- >24 Y 30 mg/dL above LDL Cholesterol goal Performed By: #### 38128-1 # ### JASON Morales ([id number]) [facility] ([facility]) [address] [place] [address] MAGNESIUM Collected: 10:40 AM Status: F Source: [facility] TYPE CODE TESTS RESULT OUT OF RANGE REFERENCE UNITS LAB 33265-8(INC) Magnesium 2.01 1.60-2.40 mg/dL Performed By: #### 71209-9 # ### JASON Morales ([id number]) [facility] ([facility]) [address] [place] [address] RENAL FUNCTION 2000 PANEL Collected: 10:40 AM Status: F Source: [facility] TYPE CODE TESTS RESULT OUT OF RANGE REFERENCE UNITS LAB 2345-7(LOINC) Glucose 301 High 74-99 mg/dL LAB 2951-2(LOINC) Sodium 136 136-145 mmol/L LAB 2823-3(LOINC) Potassium 4.0 3.5-5.3 mmol/L LAB 2075-0(LOINC) Chloride 106 98-107 mmol/L LAB 2027-9(LOINC) Carbon dioxide 20 Low 21-32 mmo l/L LAB 40823-7(LOINC) Anion gap 14 10-20 mmol/L LAB 3094-0(LOINC) Urea nitrogen 60 High 6-23 mg/d L LAB 2160-0(LOINC) Creatinine 2.54 High 0.50-1.30 mg/dL LAB 62605-8(LOINC) Glomerular filtration rate 29 Low >60 mL/min/1 .73m*2 Result Comment: Calculations of estimated GFR are performed using the 2020 CKD- EPI Study Refit equation without the race variable for the IDMS-Traceable creatinine methods. https://jasn.asnjournals.org/content/early//ASN.8471078636 LAB 00132-5(LOINC) Calcium 8.6 8.6-10.6 mg/dL LAB 2777-1(LOINC) Phosphate 4.5 2.5-4.9 mg/dL LAB 59173-7(LOINC) Albumin 4.3 3.4-5.0 g/dL Performed By: #### 00039-1 # ### JASON Morales ([id number]) [facility] ([facility]) [address] [place] [address] HEMOGLOBIN A1C/HEMOGLOBIN.TOTAL Collect ed: 01/20/2025 10:40 AM Status: F Source: [facility] Order Comment: Diagnosis of Diabetes-Adults Non-Diabetic: < or = 5.6% Increased risk for developing diabetes: 5.7-6.4% Diagnostic of diabetes: > or = 6.5% TYPE CODE TESTS RESULT OUT OF RANGE REFERENCE UNITS LAB 4548-4(LOINC ) Hemoglobin A1c/Hemoglob in.total 7.8 High See comment % LAB 41205-1(LOIN C) Estimated average glucose 177 Not Established mg/dL Performed By: #### 4548-4 ## ## JASON Morales ([id number]) [facility] ([facility]) [address] [place] [address] TACROLIMUS Collected: 10:40 AM Status: F Source: [facility] Order Comment: NOTE: Result was obtained using a chemiluminescent microparticle immunoassay (CMIA) on the Computer Systems Hardware Analyst i system. Optimal therapeutic ranges for immunosuppressant drugs depend upon an individual patient's current clinical state, type of organ transplant, time post-transplant, co-administration of other immunosuppressants, and other clinical factors. The results of this test should be correlated with additional clinical and laboratory data before changes in treatment regimens are made. TYPE CODE TESTS RESULT OUT OF RANGE REFERENCE UNITS LAB 30198-7(LOINC) Tacrolimus <2.0 <=15.0 ng/mL Performed By: #### 73546-5 # ### JASON Morales ([id number]) [facility] ([facility]) [address] [place], [place] [id number] C PEPTIDE Collected: 10:40 AM Status: F Source: [facility] TYPE CODE TESTS RESULT OUT OF RANGE REFERENCE UNITS LAB 1985-9(LOINC) C peptide 0.3 Low 0.7-3.9 ng/mL Performed By: #### 1986-9 ## ## JASON Morales ([id number]) [facility] ([facility]) [address] [place], [place] [id number] JOSELUIS ARGUETA VIRUS DNA Collected: 01/20 10:40 AM Status: F Source: [facility] Order Comment: Reportable Ra nge: 35-100,000,000 IU/mL. The sophie EBV test is [...] the test result will be reported as "<35 Detected" or ">100,000,000 Detected". The sophie EBV test is intended for [...] the Molecular Diagnostic Laboratory, Department of Pathology, [facility]. TYPE CODE TESTS RESULT OUT OF RANGE REFERENCE UNITS LAB EBVDNAR EBV DNA RESULT Not Detected Not Detected LAB EBPIL EBV PCR PLASMA LOG IU/ML Result Comment: Not calculat ed Performed By: #### 93648-2 # ### JASON Morales ([id number]) [facility] ([facility]) [address] [place] [address] BK VIRUS DNA Collected: 5 10:40 AM Status: F Source: [facility] Order Comment: Reportable ra nge: 21.5-100,000,000 IU/mL The sophie BKV is an in vitro nucleic acid amplification test for the quantitation of BK virus (BKV) DNA in human EDTA plasma on the sophie PassivSystems0/8800 Systems. The test employs a dual target virus specific approach from highly-conserved regions of the BKV located in the BKV small t-antigen region and the BKV VP2 region. The analytical quantification range of this assay has been determined to be 21.5 to 100,000,000 IU/ml in plasma. As with [...] the test result will be reported as "<21.5 Detected" or ">100,000,000 Detected". The sophie BKV is intended for use as [...] the Molecular Diagnostic Laboratory, Department of Pathology, [facility]. TYPE CODE TESTS RESULT OUT OF RANGE REFERENCE UNITS LAB BKVLO BK VIRUS LOG PCR Result Comment: Not calculat ed LAB BKDNA BKV DNA RESULT Not Detected Not Detected Performed By: #### 86094-8 # ### JASON Morales ([id number]) [facility] ([facility]) [address] [place] [address] CYTOMEGALOVIRUS DNA Collected: 01/20/2025 10:40 AM S nighat: Francy Source: [facility] Order Comment: Reportable Ra nge: 35-10,000,000 IU/mL. The sophie CMV test is an in vitro nucleic acid amplification test for the quantitation of Cytomegalovirus (CMV) DNA in human EDTA plasma on the sophie [employer]Systems0/8800 Systems. The analytical quantification range of this [...] the test result will be reported as "<35 Detected" or ">10,000,000 Detected". The sophie CMV is intended for use [...] the Molecular Diagnostic Laboratory, Department of Pathology, [facility]. TYPE CODE TESTS RESULT OUT OF RANGE REFERENCE UNITS LAB CMVIL CYTOMEGALOVIRUS DNA, PCR LOG IU/ML Result Comment: Not calculat ed LAB CMVDNAR CMV DNA RESULT Not Detected No t Detected Performed By: #### 45641-8 # ### JASON Morales ([id number]) [facility] ([facility]) [address] [place] [address] HLA TRANSPLANT ANTIBODY PANEL Collected : 01/20/2025 10:40 AM Status: F Source: [facility] Order Comment: Test performe d at: [facility], [address] [address] [place] [address] TYPE CODE TESTS RESULT OUT OF RANGE REFERENCE UNITS LAB 79134-8(LOINC) HLA-A+B+C Ab LAB 82461-2(LOINC) HLA-DP+DQ+DR Ab LAB HLARES HLA RESULTS See Attached Performed By: #### HLANTI ## ## ANTHONY Dunbar ([id number]) HLA LAB ([facility]) [address] [place] [address] ISLET CELL 512 AB Collected: 10:40 AM Status: F Source: [facility] TYPE CODE TESTS RESULT OUT OF RANGE REFERENCE UNITS LAB 69867-2(LOINC) Islet cell 512 Ab <5.4 0.0-7.4 U/mL Result Comment: INTERPRETIVE INFORMATION: Islet Antigen-2 (IA-2) Autoantibody, Serum A value greater than or equal to 7.5 Units/mL is considered positive for IA-2 autoantibodies. This assay is intended for the quantitative determination of autoantibodies to Islet Antigen-2 (IA-2) in human serum. Results should be interpreted within the context of clinical symptoms. Performed By: [facility] [address] [place] [address] Adhesion Tester: Trevor Machado MD, PhD CLIA Number: [id number] Performed By: #### 65721-9 # ### [employer] ([place]) ([id number]) [address] [place] [address] ZINC TRANSPORTER 8 AB Collected: 2024 10:40 AM Status: F Source: [facility] TYPE CODE TESTS RESULT OUT OF RANGE REFERENCE UNITS LAB 42082-8([facility]) Zinc transporter 8 Ab <10.0 0.0-15.0 U/mL Result Comment: INTERPRETIVE INFORMATION: Zinc Transporter 8 Antibody A value greater than 15.0 Kronus Units/mL is considered positive for the Zinc Transporter 8 Antibody (ZnT8). Kronus Units are arbitrary. Kronus Units = U/mL. This assay is intended for the semi-quantitative determination of antibodies to ZnT8 in human serum. Results should be interpreted within the context of clinical symptoms. Performed By: [facility] [address] [place] [address] Adhesion Tester: Trevor Machado MD, PhD CLIA Number: [id number] Performed By: #### 49558-8 # ### [facility] [employer]) ([id number]) [address] [place] [address] GLUTAMATE DECARBOXYLASE 65 AB Collected: 01/20/2025 1 0:40 AM Status: F Source: [facility] TYPE CODE TESTS RESULT OUT OF RANGE REFERENCE UNITS LAB 90857-5([facility]) Glutamate decarboxylase 65 Ab <5.0 0.0-5.0 IU/mL Result Comment: INTERPRETIVE INFORMATION: Glutamic Acid Decarboxylase Antibody A value greater than 5.0 IU/mL is considered positive for Glutamic Acid Decarboxylase Antibody (TEMO Ab). This assay is intended for the semi-quantitative determination of the TEMO Ab in human serum. Results should be interpreted within the context of clinical symptoms. Performed By: [facility] [address] [place] [address] Adhesion Tester: Trevor Machado MD, PhD CLIA Number: [id number] Performed By: #### 67114-7 # ### [facility] [employer]) ([id number]) [address] [place], [place] [id number] CNPN Observed: 01/13/2025 12:00 AM Status: COMPLETED Source: [facility] THOM CHAPIN ([id number]) 1970 M Date Time Provider Department 01/13/25 RON CORONADO During your visit today, we recorded the following information about you: Penny Candelario MA 01/13/2025 10:32 AM Signed Type of letter/form/fax request - order for CGM and supplies Form received from fax on 1 floor and placed on MD desk (Dr. Coronado) for completion. Completed form needs to be faxed to [facility] at [phone] along with most recent OV note. OV note from 06/22/24 printed and attached. Route to NE when form completed for processing Penny Candelario MA 01/14/2025 9:16 AM Signed Faxed. Penny Candelario MA Allergies As of Date: 01/13/2025 (No Known Allergies) Date Reviewed: 06/22/2024 Reviewed by: Penny Candelario MA - Fully Assessed Reason for Visit: Forms [913] Cmt: [facility] Prescriptions as of 01/14/2025 - atorvastatin (LIPITOR) 40 mg tablet Take [...] mouth two times a day. - Insulin Rosie, Disposable, (PEN NEEDLE) 32 gauge x 5/32" Give with each insulin administration once in the am and once in the pm - insulin glargine (BASAGLAR KWIKPEN U-100 INSULIN) 100 unit/mL (3 mL) Inject 14 Units subcutaneously every 24 hours. - sildenafil (VIAGRA) 50 mg tablet Take 1 tablet by mouth as needed. Take one hour prior to sexual activity - Insulin Rosie, Disposable, (PEN NEEDLE) 32 gauge x 5/32" Inject 1 Each subcutaneously every 24 hours. Give with each insulin administration. - Insulin Rosie, Disposable, (UNIFINE PENTIPS PLUS) 31 gauge x 3/16" USE TWICE DAILY DIRECTED FOR INSULIN - Blood-Glucose Sensor (DEXCOM G6 SENSOR) ricco 10 Each as directed. Apply a new [...] daily. - NOVOFINE AUTOCOVER 30 gauge x 1/3" ndle - Insulin Syringe-Needle U-100 (BD LO-DOSE MICRO-FINE IV) 0.3 mL 28 x 1/2" syrg Inject 1 Each subcutaneously daily at bedtime. Inject once daily (for Lantus) Dx: Diabetes Type I with renal manifestations . 254.43 - glucagon, human recombinant, (GLUCAGON EMERGENCY) 1 mg injection 1 mg as needed. 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 Pt states he is a recent transplant pt. See 12/21 phone encounter for all the details. Appears awaiting a potential PA form to be completed by Dr. Coronado. In the meantime, pt is encouraged to call both his Medicare and Medicaid to see if they can help him in any way with transportation services. Will also forward info to Environmental Conservation Officer. Omid Magana MSW 01/07/2025 8:33 AM Signed Looks like PA is in process of being completed by Dr. Coronado to send to insurance to see about ext of rides to appts. Sw can check with [employer] on Friday to see if they have reinstated any ride assistance options for out of town appts. [employer] is closed on Fridays. Out of town ride assistance had been suspended through [facility] [employer], will see if it has been restarted. Omid Magana, ROTARY DRILL RIG OPERATOR 01/10/2025 1:02 PM Signed Federico called [facility] to speak with coordinator regarding transportation. No answer, call kept ringing. Sw will try call another time. Omid Magana, ROTARY DRILL RIG OPERATOR 01/12/2025 8:43 AM Signed Federico left message for Lisa [facility] [employer], Transportation to see if she is aware of any out of town ride assistance options available for [facility]. Omid Magana, ROTARY DRILL RIG OPERATOR 01/13/2025 8:46 AM Signed [employer]. [facility] may also be another option for rides to out of town appts. Sw will reach out to patient and provide patient with [employer] contact info. Omid Magana, ROTARY DRILL RIG OPERATOR 01/13/2025 3:58 PM Signed Federico left patient message requesting call back to discuss [facility] transportation program. Omid Magana, ROTARY DRILL RIG OPERATOR 01/14/2025 9:19 AM Signed This Sw spoke with patient regarding transportation. Patient reports that his insurance has sent a form to Dr. Coronado to see about requesting additional ride assistance to out of town appts. Patient notes that he is not sure where Dr. Coronado is with completing form to send back to insurance to request additional rides. Sw and patient spoke about transportation help through [employer]. [facility]. [employer] is an organization that works with [facility] to help with needs such as transportation. Sw provided patient with [employer]. [facility] ph. [phone]. Sw noted that she would also forward her note to Dr. Coronado office to see about status of appeal form to request more rides to medical appts. Penny Candelario MA 01/14/2025 9:23 AM Signed Form was put on providers desk to see if anything further could be completed. ROLA Kwong Mark D, MD 01/24/2025 8:11 PM Signed The form does not make sense to me; it is asking for CPT and procedural codes which do not seem to rachelle;y to this situation where we are just looking for help with transportation. I wonder if Environmental Conservation Officer can help with getting a form that is appropriate? MD [employer] Tyler Kathryn, MA 01/25/2025 10:52 AM Signed Form placed in Omid LOYOLA's mailbox, along with an extra blank form that was sent to office. Penny Candelario MA Omid Magana, ROTARY DRILL RIG OPERATOR 01/31/2025 2:53 PM Signed Upon review of forms with admin appears forms need to be completed by fertilizer supervisor for dialysis. Federico will call patient tomorrow to discuss this. Omid Magana, ROTARY DRILL RIG OPERATOR 02/01/2025 2:24 PM Addendum Patient reports that [facility] iscoming to patient home for home infusion and labs. Patient reports that kidney doctor was able to also get extension on rides to main [facility] appt. Allergies As of Date: 01/06/2025 (No Known Allergies) Date Reviewed: 06/22/2024 Reviewed by: Penny Candelario MA - Fully Assessed Reason for Visit: Transportation question [Other] Prescriptions as of 02/01/2025 - atorvastatin (LIPITOR) 40 mg tablet Take [...] mouth two times a day. - Insulin Rosie, Disposable, (PEN NEEDLE) 32 gauge x 5/32" Give with each insulin administration once in the am and once in the pm - insulin glargine (BASAGLAR KWIKPEN U-100 INSULIN) 100 unit/mL (3 mL) Inject 14 Units subcutaneously every 24 hours. - sildenafil (VIAGRA) 50 mg tablet Take 1 tablet by mouth as needed. Take one hour prior to sexual activity - Insulin Rosie, Disposable, (PEN NEEDLE) 32 gauge x 5/32" Inject 1 Each subcutaneously every 24 hours. Give with each insulin administration. - Insulin Rosie, Disposable, (UNIFINE PENTIPS PLUS) 31 gauge x 3/16" USE TWICE DAILY DIRECTED FOR INSULIN - Blood-Glucose Sensor (DEXCOM G6 SENSOR) ricco 10 Each as directed. Apply a new [...] daily. - NOVOFINE AUTOCOVER 30 gauge x 1/3" ndle - Insulin Syringe-Needle U-100 (BD LO-DOSE MICRO-FINE IV) 0.3 mL 28 x 1/2" syrg Inject 1 Each subcutaneously daily at bedtime. Inject once daily (for Lantus) Dx: Diabetes Type I with renal manifestations . 254.43 - glucagon, human recombinant, (GLUCAGON EMERGENCY) 1 mg injection 1 mg as needed. ADMINISTER FOR LOW BLOOD SUGAR - IF UNCONSCIOUS OR UNABLE TO SWALLOW Problem List As Of Date 01/06/2025 Noted Resolved Type 1 diabetes mellitus with [...] [D56.0] 03/01/2014 ESRD (end stage renal disease) ([facility]) [N18.6] 01/08/2016 S/P transmetatarsal amputation of foot, right (*08/17/2019 Atherosclerosis of capitan grande band artery of extremity w*12/24/2022 Secondary hyperparathyroidism of renal origin (*12/24/2022 Encounter Status:Closed by OMID MAGANA on 02/01/25 COMPLETE BLOOD COUNT W AUTO DIFFERENTIAL PANEL Collected: 12/31/2024 9:00 AM Status: F Source: [facility] TYPE CODE TESTS RESULT OUT OF RANGE REFERENCE UNITS LAB 6690-2(LOINC) Leukocytes 2.6 Low 4.4-11.3 x10*3/ uL LAB 81094-7(LOINC ) Erythrocytes.nu cleated/Leukocy mega 0.0 0.0-0.0 /100 WBCs LAB 789-8(LOINC) Erythrocytes 3.16 Low 4.50-5.90 x10* 6/uL LAB 718-7(LOINC) Hemoglobin 8.0 Low 13.5-17.5 g/dL LAB 4544-3(LOINC) Erythrocyte/Blo od 26.4 Low 41.0-52.0 % LAB 787-2(LOINC) Observation 84 80-100 fL LAB 785-6(LOINC) Hemoglobin 25.3 Low 26.0-34.0 pg LAB 786-4(LOINC) Hemoglobin 30.3 Low 32.0-36.0 g/dL LAB 788-0(LOINC) Observation 19.8 High 11.5-14.5 % LAB 777-3(LOINC) Platelets 180 150-450 x10*3/uL LAB 770-8(LOINC) Neutrophils/Aye kocytes 76.5 40.0-80.0 % LAB 78023-0(LOINC ) Granulocytes.im mature/Leukocyt es 1.5 High 0.0-0.9 % Result Comment: Immature Gra nulocyte Count (IG) includes promyelocytes, myelocytes and metamyelocytes but does not include bands. Percent differential counts (%) should be interpreted in the context of the absolute cell counts (cells/UL). LAB 736-9(LOINC) Lymphocytes/Aye kocytes 10.6 13.0-44.0 % LAB 5905-5(LOINC) Monocytes/Leuko cytes 9.5 2.0-10.0 % LAB 713-8(LOINC) Eosinophils/Aye kocytes 1.5 0.0-6.0 % LAB 706-2(LOINC) Basophils/Leuko cytes 0.4 0.0-2.0 % LAB 751-8(LOINC) Neutrophils 2.01 1.20-7.70 x10*3 /uL Result Comment: Percent diff erential counts (%) should be interpreted in the context of the absolute cell counts (cells/uL). LAB 59314-5(LOINC ) Granulocytes.im mature 0.04 0.00-0.70 x10*3/uL LAB 731-0(LOINC) Lymphocytes 0.28 Low 1.20-4.80 x10*3 /uL LAB 742-7(LOINC) Monocytes 0.25 0.10-1.00 x10*3/u L LAB 711-2(LOINC) Eosinophils 0.04 0.00-0.70 x10*3 /uL LAB 704-7(LOINC) Basophils 0.01 0.00-0.10 x10*3/u L Performed By: #### 37518-5 # ### TON MORAN ([id number]) [facility] ([facility]) [address] [place] [address] MAGNESIUM Collected: 9:00 AM Status: F Source: [facility] TYPE CODE TESTS RESULT OUT OF RANGE REFERENCE UNITS LAB 40250-5(LOINC) Magnesium 1.78 1.60-2.40 mg/dL Performed By: #### 30722-1 # ### TON MORAN ([id number]) [facility] ([facility]) [address] [place] [address] RENAL FUNCTION 2000 PANEL Collected: 9:00 AM Status: F Source: [facility] TYPE CODE TESTS RESULT OUT OF RANGE REFERENCE UNITS LAB 2345-7(LOINC) Glucose 183 High 74-99 mg/dL LAB 2951-2(LOINC) Sodium 135 Low 136-145 mmol/L LAB 2823-3(LOINC) Potassium 4.7 3.5-5.3 mmol/L LAB 2075-0(LOINC) Chloride 117 High 98-107 mmol/L LAB 2027-9(LOINC) Carbon dioxide 14 Low 21-32 mmo l/L LAB 59924-1(LOINC) Anion gap 9 Low 10-20 mmol/L LAB 3094-0(LOINC) Urea nitrogen 73 High 6-23 mg/d L LAB 2160-0(LOINC) Creatinine 2.87 High 0.50-1.30 mg/dL LAB 00720-2(LOINC) Glomerular filtration rate 25 Low >60 mL/min/1 .73m*2 Result Comment: Calculations of estimated GFR are performed using the 2020 CKD- EPI Study Refit equation without the race variable for the IDMS-Traceable creatinine methods. https://jasn.asnjournals.org/content///ASN.4592285813 LAB 53338-3(LOINC) Calcium 8.4 Low 8.6-10.3 mg/dL LAB 2777-1(LOINC) Phosphate 4.0 2.5-4.9 mg/dL LAB 41815-5(LOINC) Albumin 3.0 Low 3.4-5.0 g/dL Performed By: #### 45259-6 # ### CAMILO DEAN ([id number]) [facility] ([facility]) [address] [place] [address] COMPLETE BLOOD COUNT PANEL Collected: 12/27/2024 9:03 AM Status: F Source: [facility] TYPE CODE TESTS RESULT OUT OF RANGE REFERENCE UNITS LAB 6690-2(LOINC) Leukocytes 3.5 Low 4.4-11.3 x10*3/ uL LAB 04636-6(LOINC) Erythrocytes.nuc l eated/100 leukocytes 0.0 0.0-0.0 /100 WBCs LAB 789-8(LOINC) Erythrocytes 2.53 Low 4.50-5.90 x10* 6/uL LAB 718-7(LOINC) Hemoglobin 6.5 Low Alert 13.5-17.5 g/dL LAB 4544-3(LOINC) Hematocrit 21.8 Low 41.0-52.0 % LAB 787-2(LOINC) Erythrocyte mean corpuscular volume 86 80-100 fL LAB 785-6(LOINC) Erythrocyte mean corpuscular hemoglobin 25.7 Low 26.0-34.0 pg LAB 786-4(LOINC) Erythrocyte mean corpuscular hemoglobin concentration 29.8 Low 32.0-36.0 g/dL LAB 788-0(LOINC) Erythrocyte distribution width 20.9 High 11.5-14.5 % LAB 777-3(LOINC) Platelets 178 150-450 x10*3/uL Performed By: #### 39159-2 # ### TON MORAN ([id number]) [facility] ([facility]) [address] [place] [address] MAGNESIUM Collected: 9:03 AM Status: F Source: [facility] TYPE CODE TESTS RESULT OUT OF RANGE REFERENCE UNITS LAB 24682-1([facility]) Magnesium 1.78 1.60-2.40 mg/dL Performed By: #### 37990-7 # ### TON MORAN ([id number]) [facility] ([facility]) [address] [place] [address] RENAL FUNCTION 2000 PANEL Collected: 9:03 AM Status: F Source: [facility] TYPE CODE TESTS RESULT OUT OF RANGE REFERENCE UNITS LAB 2345-7(LOINC) Glucose 214 High 74-99 mg/dL LAB 2951-2(LOINC) Sodium 139 136-145 mmol/L LAB 2823-3(LOINC) Potassium 4.8 3.5-5.3 mmol/L LAB 2075-0(LOINC) Chloride 117 High 98-107 mmol/L LAB 8-9(LOINC) Carbon dioxide 18 Low 21-32 mmo l/L LAB 53956-9(LOINC) Anion gap 9 Low 10-20 mmol/L LAB 3094-0(LOINC) Urea nitrogen 91 High Alert 6-23 mg/dL Result Comment: Confirmed by repeat analysis LAB 2160-0(LOINC) Creatinine 3.31 High 0.50-1.30 mg/dL LAB 27472-8(LOINC) Glomerular filtration rate/1.73 sq M.predicted 21 Low >60 mL/min/1 .73m*2 Result Comment: Calculations of estimated GFR are performed using the 2020 CKD- EPI Study Refit equation without the race variable for the IDMS-Traceable creatinine methods. https://jasn.asnjournals.org/content/early//ASN.8779678280 LAB 93685-8(LOINC) Calcium 8.5 Low 8.6-10.3 mg/dL LAB 2777-1(LOINC) Phosphate 4.0 2.5-4.9 mg/dL LAB 32210-4(LOINC) Albumin 3.3 Low 3.4-5.0 g/dL Performed By: #### 87016-3 # ### TON MORAN ([id number]) [facility] ([facility]) [address] [place] [address] ERYTHROCYTE SHAPE Collected: 12/27/2024 9:03 AM Stat us: F Source: [facility] TYPE CODE TESTS RESULT OUT OF RANGE REFERENCE UNITS LAB 6742-1(LOINC) Erythrocyte morphology finding See Below LAB 728-6(LOINC) Hypochromia Mild LAB 800-3(LOINC) Schistocytes Few LAB 774-0(LOINC) Ovalocytes Few LAB 7790-9(LOINC) Greenview cells Few Performed By: #### 54527-0 # ### TON MORAN ([id number]) [facility] ([facility]) [address] [place] [address] TACROLIMUS Collected: 9:03 AM Status: F Source: [facility] Order Comment: NOTE: Result was obtained using a chemiluminescent microparticle immunoassay (CMIA) on the Computer Systems Hardware Analyst i system. Optimal therapeutic ranges for immunosuppressant drugs depend upon an individual patient's current clinical state, type of organ transplant, time post-transplant, co-administration of other immunosuppressants, and other clinical factors. The results of this test should be correlated with additional clinical and laboratory data before changes in treatment regimens are made. TYPE CODE TESTS RESULT OUT OF RANGE REFERENCE UNITS LAB 15932-2(LOINC) Tacrolimus 6.5 <=15.0 ng/mL Performed By: #### 51619-4 # ### JASON Morales ([id number]) [facility] ([facility]) [address] [place] [address] COMPLETE BLOOD COUNT PANEL Collected: 12/23/2024 8:21 AM Status: F Source: [facility] TYPE CODE TESTS RESULT OUT OF RANGE REFERENCE UNITS LAB 6690-2(LOINC) Leukocytes 3.4 Low 4.4-11.3 x10*3/ uL LAB 37502-1(LOINC) Erythrocytes.nuc l eated/100 leukocytes 0.0 0.0-0.0 /100 WBCs LAB 789-8(LOINC) Erythrocytes 2.80 Low 4.50-5.90 x10* 6/uL LAB 718-7(LOINC) Hemoglobin 7.1 Low 13.5-17.5 g/dL LAB 4544-3(LOINC) Hematocrit 23.0 Low 41.0-52.0 % LAB 787-2(LOINC) Erythrocyte mean corpuscular volume 82 80-100 fL LAB 785-6(LOINC) Erythrocyte mean corpuscular hemoglobin 25.4 Low 26.0-34.0 pg LAB 786-4(LOINC) Erythrocyte mean corpuscular hemoglobin concentration 30.9 Low 32.0-36.0 g/dL LAB 788-0(LOINC) Erythrocyte distribution width 19.5 High 11.5-14.5 % LAB 777-3(LOINC) Platelets 138 Low 150-450 x10*3/uL Performed By: #### 60840-0 # ### TON MORAN ([id number]) [facility] ([facility]) [address] [place] [address] MAGNESIUM Collected: 8:21 AM Status: F Source: [facility] TYPE CODE TESTS RESULT OUT OF RANGE REFERENCE UNITS LAB 95176-0(LOINC) Magnesium 1.89 1.60-2.40 mg/dL Performed By: #### 76751-1 # ### TON MORAN ([id number]) [facility] ([facility]) [address] [place] [address] RENAL FUNCTION 2000 PANEL Collected: 8:21 AM Status: F Source: [facility] TYPE CODE TESTS RESULT OUT OF RANGE REFERENCE UNITS LAB 2345-7(LOINC) Glucose 256 High 74-99 mg/dL LAB 2951-2(LOINC) Sodium 134 Low 136-145 mmol/L LAB 2823-3(LOINC) Potassium 4.9 3.5-5.3 mmol/L LAB 2075-0(LOINC) Chloride 110 High 98-107 mmol/L LAB 2028-9(LOINC) Carbon dioxide 19 Low 21-32 mmo l/L LAB 54912-7(LOINC) Anion gap 10 10-20 mmol/L LAB 3094-0(LOINC) Urea nitrogen 66 High 6-23 mg/d L LAB 2160-0(LOINC) Creatinine 2.80 High 0.50-1.30 mg/dL LAB 01408-1(LOINC) Glomerular filtration rate/1.73 sq M.predicted 26 Low >60 mL/min/1 .73m*2 Result Comment: Calculations of estimated GFR are performed using the 2020 CKD- EPI Study Refit equation without the race variable for the IDMS-Traceable creatinine methods. https://jasn.asnjournals.org/content/early//ASN.1507868823 LAB 15534-7(LOINC) Calcium 8.8 8.6-10.3 mg/dL LAB 2777-1(LOINC) Phosphate 4.3 2.5-4.9 mg/dL LAB 47614-2(LOINC) Albumin 3.3 Low 3.4-5.0 g/dL Performed By: #### 39217-8 # ### TON MORAN ([id number]) [facility] ([facility]) [address] [place] [address] GLUCOSE Collected: 7:36 AM Status: F Source: [facility] TYPE CODE TESTS RESULT OUT OF RANGE REFERENCE UNITS LAB 2341-6(LOINC) Glucose 192 High 74-99 mg/dL Performed By: #### 2341-6 ## ## JASON Morales ([id number]) [facility] ([facility]) [id number] [place] [address] COMPLETE BLOOD COUNT W AUTO DIFFERENTIAL PANEL Collected: 12/21/2024 4:57 AM Status: F Source: [facility] TYPE CODE TESTS RESULT OUT OF RANGE REFERENCE UNITS LAB 6690-2(LOINC) Leukocytes 4.0 Low 4.4-11.3 x10*3/ uL LAB 17069-4(LOINC ) Erythrocytes.nuc leated/100 leukocytes 0.0 0.0-0.0 /100 WBCs LAB 789-8(LOINC) Erythrocytes 2.91 Low 4.50-5.90 x10* 6/uL LAB 718-7(LOINC) Hemoglobin 7.6 Low 13.5-17.5 g/dL LAB 4544-3(LOINC) Hematocrit 24.5 Low 41.0-52.0 % LAB 787-2(LOINC) Erythrocyte mean corpuscular volume 84 80-100 fL LAB 785-6(LOINC) Erythrocyte mean corpuscular hemoglobin 26.1 26.0-34.0 pg LAB 786-4(LOINC) Erythrocyte mean corpuscular hemoglobin concentration 31.0 Low 32.0-36.0 g/dL LAB 788-0(LOINC) Erythrocyte distribution width 19.1 High 11.5-14.5 % LAB 777-3(LOINC) Platelets 133 Low 150-450 x10*3/uL LAB 770-8(LOINC) Neutrophils/100 leukocytes 76.1 40.0-80.0 % LAB 09728-1(LOINC ) Granulocytes.imm ature/100 leukocytes 0.8 0.0-0.9 % Result Comment: Immature Gra nulocyte Count (IG) includes promyelocytes, myelocytes and metamyelocytes but does not include bands. Percent differential counts (%) should be interpreted in the context of the absolute cell counts (cells/UL). LAB 736-9(LOINC) Lymphocytes/100 leukocytes 13.5 13.0-44.0 % LAB 5905-5(LOINC) Monocytes/100 leukocytes 7.8 2.0-10.0 % LAB 713-8(LOINC) Eosinophils/100 leukocytes 1.5 0.0-6.0 % LAB 706-2(LOINC) Basophils/100 leukocytes 0.3 0.0-2.0 % LAB 751-8(LOINC) Neutrophils 3.04 1.20-7.70 x10*3 /uL Result Comment: Percent diff erential counts (%) should be interpreted in the context of the absolute cell counts (cells/uL). LAB 98103-2(LOINC ) Granulocytes.imm ature 0.03 0.00-0.70 x10*3/uL LAB 731-0(LOINC) Lymphocytes 0.54 Low 1.20-4.80 x10*3 /uL LAB 742-7(LOINC) Monocytes 0.31 0.10-1.00 x10*3/u L LAB 711-2(LOINC) Eosinophils 0.06 0.00-0.70 x10*3 /uL LAB 704-7(LOINC) Basophils 0.01 0.00-0.10 x10*3/u L Performed By: #### 73340-1 # ### JASON Morales ([id number]) [facility] ([facility]) [address] [place] [address] MAGNESIUM Collected: 4:57 AM Status: F Source: [facility] TYPE CODE TESTS RESULT OUT OF RANGE REFERENCE UNITS LAB 08715-7(LOINC) Magnesium 1.89 1.60-2.40 mg/dL Performed By: #### 86272-2 # ### JASON Morales ([id number]) [facility] ([facility]) [address] [place] [address] RENAL FUNCTION 2000 PANEL Collected: 4:57 AM Status: F Source: [facility] TYPE CODE TESTS RESULT OUT OF RANGE REFERENCE UNITS LAB 2345-7(LOINC) Glucose 238 High 74-99 mg/dL LAB 2951-2(LOINC) Sodium 131 Low 136-145 mmol/L LAB 2823-3(LOINC) Potassium 4.5 3.5-5.3 mmol/L LAB 2075-0(LOINC) Chloride 105 98-107 mmol/L LAB 2027-9(LOINC) Carbon dioxide 20 Low 21-32 mmo l/L LAB 28555-1(LOINC) Anion gap 11 10-20 mmol/L LAB 3094-0(LOINC) Urea nitrogen 66 High 6-23 mg/d L LAB 2160-0(LOINC) Creatinine 3.10 High 0.50-1.30 mg/dL LAB 56371-9(LOINC) Glomerular filtration rate/1.73 sq M.predicted 23 Low >60 mL/min/1 .73m*2 Result Comment: Calculations of estimated GFR are performed using the 2020 CKD- EPI Study Refit equation without the race variable for the IDMS-Traceable creatinine methods. https://jasn.asnjournals.org/content//ASN.3020088607 LAB 86148-3(LOINC) Calcium 8.3 Low 8.6-10.6 mg/dL LAB 2777-1(LOINC) Phosphate 4.1 2.5-4.9 mg/dL LAB 07309-3(LOINC) Albumin 3.0 Low 3.4-5.0 g/dL Performed By: #### 42700-4 # ### JASON Morales ([id number]) [facility] ([facility]) [address] [place], [place] [id number] TACROLIMUS Collected: 4:57 AM Status: F Source: [facility] Order Comment: NOTE: Result was obtained using a chemiluminescent microparticle immunoassay (CMIA) on the Computer Systems Hardware Analyst i system. Optimal therapeutic ranges for immunosuppressant drugs depend upon an individual patient's current clinical state, type of organ transplant, time post-transplant, co-administration of other immunosuppressants, and other clinical factors. The results of this test should be correlated with additional clinical and laboratory data before changes in treatment regimens are made. TYPE CODE TESTS RESULT OUT OF RANGE REFERENCE UNITS LAB 48939-7([facility]) Tacrolimus 5.0 <=15.0 ng/mL Performed By: #### 07448-3 # ### JASON Morales ([id number]) [facility] ([facility]) [address] [place] [id number] CNPN Observed: 12/21/2024 12:00 AM Status: COMPLETED Source: [facility] Telephone (FAMPWS) THOM CHAPIN ([id number]) 1970 M Date Time Provider Department 12/21/24 RON CORONADO During your visit today, we recorded the following information about you: [place] Escobar LPN 12/21/2024 1:41 PM Signed Pt calls (along with Patria who is with [facility]) calls to ask if office could try again to get PA for more transportation. Patria is asking for office to call [employer] @ [phone] and stay on the line until you get a "live" person. Patria requests then let them know pt needs PA for more transportation. Pt's ID: [id number]. Patria reports pt currently will run out [...] to use them. Call pt with outcome. ALLYSSA Padilla Kathryn, MA 12/23/2024 10:06 AM Addendum Called number provided below, waited and was finally able to get to a "live" person after dealing with automatic prompts. Was told that that number does not handle transportation claims/PA and was given number for transportation of [phone]. After dealing with prompts was able to speak with a "live" person. Gave them pt ID number provided [...] Penny Candelario MA 12/23/2024 10:58 AM Signed [facility] called office back. Advised MA that we need to go to [email or web address] and log into the provider portal. I made an account but will not allow me to access authorizations. Spoke with Bianca who stated access to care phone number is [phone] PA provider services phone number is [phone] option 1 Pt ID# is [id number] Bianca spoke with her mill supervisor Jennifer who has faxed the PA [...] pt to get to, lab on AND , infusion on Fri. Depending on the lab results he might have to go to the hospital. Dialysis is as needed. PA form on PCP's desk. If unable to complete do you want Environmental Conservation Officer to see about helping pt with transportation? ROLA Kwong Amanda, RN 01/05/2025 9:21 AM Signed Pt called in asking about transportation extension. I let Pt know that the PA needed more information. The Pt reports he goes to [place] Friday and for labs, and once a week for infusion on Fri. Depending on the lab results he might have to go to the hospital. Dialysis is as needed. Then the Pt reports he goes up to in [place] 1-2 times a month to fill his pill boxes. Pt states he will call in tomorrow to check on status. Pamella Rojas RN Allergies As of Date: 12/21/2024 (No Known Allergies) Date Reviewed: 06/22/2024 Reviewed by: Penny Candelario MA - Fully Assessed Reason for Visit: Insurance Authorization [[id number]] Transportation [[id number]] Prescriptions as of 01/06/2025 - atorvastatin (LIPITOR) 40 mg tablet Take [...] mouth two times a day. - Insulin Rosie, Disposable, (PEN NEEDLE) 32 gauge x 5/32" Give with each insulin administration once in the am and once in the pm - insulin glargine (BASAGLAR KWIKPEN U-100 INSULIN) 100 unit/mL (3 mL) Inject 14 Units subcutaneously every 24 hours. - sildenafil (VIAGRA) 50 mg tablet Take 1 tablet by mouth as needed. Take one hour prior to sexual activity - Insulin Rosie, Disposable, (PEN NEEDLE) 32 gauge x 5/32" Inject 1 Each subcutaneously every 24 hours. Give with each insulin administration. - Insulin Rosie, Disposable, (UNIFINE PENTIPS PLUS) 31 gauge x 3/16" USE TWICE DAILY DIRECTED FOR INSULIN - Blood-Glucose Sensor (DEXCOM G6 SENSOR) ricco 10 Each as directed. Apply a new [...] daily. - NOVOFINE AUTOCOVER 30 gauge x 1/3" ndle - Insulin Syringe-Needle U-100 (BD LO-DOSE MICRO-FINE IV) 0.3 mL 28 x 1/2" syrg Inject 1 Each subcutaneously daily at bedtime. Inject once daily (for Lantus) Dx: Diabetes Type I with renal manifestations . 254.43 - glucagon, human recombinant, (GLUCAGON EMERGENCY) 1 mg injection 1 mg as needed. 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 w*12/24/2022 Secondary hyperparathyroidism of renal origin (*12/24/2022 Encounter Status:Closed by PENNY CANDELARIO on 12/23/24 GLUCOSE Collected: 5 7:15 PM Status: F Source: [facility] TYPE CODE TESTS RESULT OUT OF RANGE REFERENCE UNITS LAB 2341-6(LOINC) Glucose 284 High 74-99 mg/dL Performed By: #### 2341-6 ## ## JASON Morales ([id number]) [facility] ([facility]) [address] [place] [address] GLUCOSE Collected: 5 2:54 PM Status: F Source: [facility] TYPE CODE TESTS RESULT OUT OF RANGE REFERENCE UNITS LAB 2341-6(LOINC) Glucose 138 High 74-99 mg/dL Performed By: #### 2341-6 ## ## JASON Morales ([id number]) [facility] ([facility]) [address] [place] [address] RENAL FUNCTION 2000 PANEL Collected: 1:56 PM Status: F Source: [facility] TYPE CODE TESTS RESULT OUT OF RANGE REFERENCE UNITS LAB 2345-7(LOINC) Glucose 185 High 74-99 mg/dL LAB 2951-2(LOINC) Sodium 130 Low 136-145 mmol/L LAB 2823-3(LOINC) Potassium 4.8 3.5-5.3 mmol/L LAB 2075-0(LOINC) Chloride 106 98-107 mmol/L LAB 8-9(LOINC) Carbon dioxide 18 Low 21-32 mmo l/L LAB 71131-8(LOINC) Anion gap 11 10-20 mmol/L LAB 3094-0(LOINC) Urea nitrogen 62 High 6-23 mg/d L LAB 2160-0(LOINC) Creatinine 2.72 High 0.50-1.30 mg/dL LAB 23590-6(LOINC) Glomerular filtration rate/1.73 sq M.predicted 27 Low >60 mL/min/1 .73m*2 Result Comment: Calculations of estimated GFR are performed using the 2020 CKD- EPI Study Refit equation without the race variable for the IDMS-Traceable creatinine methods. https://jasn.asnjournals.org/content/early//ASN.8893083424 LAB 45161-9(LOINC) Calcium 8.7 8.6-10.6 mg/dL LAB 2777-1(LOINC) Phosphate 3.7 2.5-4.9 mg/dL LAB 75562-1(LOINC) Albumin 3.0 Low 3.4-5.0 g/dL Performed By: #### 83738-6 # ### JASON Morales ([id number]) [facility] ([facility]) [address] [place] [id number] BLOOD TYPE Collected: 12/20/2024 1:56 PM Status: F Source: [facility] TYPE CODE TESTS RESULT OUT OF RANGE REFERENCE UNITS LAB 883-9(LOINC) ABO group B LAB 1305-2(LOINC) D Ag POS LAB 890-4(INC) Blood group antibody screen NEG Performed By: #### 25776-4 # ### JASON Morales ([id number]) [facility] ([facility]) [address] [place], [place] [id number] COMPLETE BLOOD COUNT PANEL Collected: 12/20/2024 1:55 PM Status: F Source: [facility] TYPE CODE TESTS RESULT OUT OF RANGE REFERENCE UNITS LAB 6690-2(LOINC) Leukocytes 3.5 Low 4.4-11.3 x10*3/ uL LAB 65134-6(LOINC) Erythrocytes.nuc l eated/100 leukocytes 0.0 0.0-0.0 /100 WBCs LAB 789-8(LOINC) Erythrocytes 3.06 Low 4.50-5.90 x10* 6/uL LAB 718-7(LOINC) Hemoglobin 7.8 Low 13.5-17.5 g/dL LAB 4544-3(LOINC) Hematocrit 25.8 Low 41.0-52.0 % LAB 787-2(LOINC) Erythrocyte mean corpuscular volume 84 80-100 fL LAB 785-6(LOINC) Erythrocyte mean corpuscular hemoglobin 25.5 Low 26.0-34.0 pg LAB 786-4(LOINC) Erythrocyte mean corpuscular hemoglobin concentration 30.2 Low 32.0-36.0 g/dL LAB 788-0(LOINC) Erythrocyte distribution width 19.1 High 11.5-14.5 % LAB 777-3(LOINC) Platelets 123 Low 150-450 x10*3/uL Performed By: #### 03341-0 # ### JASON Morales ([id number]) [facility] ([facility]) [address] [place] [address] GLUCOSE Collected: 10:54 AM Status: F Source: [facility] TYPE CODE TESTS RESULT OUT OF RANGE REFERENCE UNITS LAB 2341-6(LOINC) Glucose 148 High 74-99 mg/dL Performed By: #### 2341-6 ## ## JASON Morales ([id number]) [facility] ([facility]) [address] [place] [address] GLUCOSE Collected: 7:29 AM Status: F Source: [facility] TYPE CODE TESTS RESULT OUT OF RANGE REFERENCE UNITS LAB 2341-6(LOINC) Glucose 224 High 74-99 mg/dL Performed By: #### 2341-6 ## ## JASON Morales ([id number]) [facility] ([facility]) [address] [place] [address] COMPLETE BLOOD COUNT W AUTO DIFFERENTIAL PANEL Collected: 12/20/2024 5:08 AM Status: F Source: [facility] TYPE CODE TESTS RESULT OUT OF RANGE REFERENCE UNITS LAB 6690-2(LOINC) Leukocytes 3.6 Low 4.4-11.3 x10*3/ uL LAB 39785-6(LOINC ) Erythrocytes.nuc leated/100 leukocytes 0.0 0.0-0.0 /100 WBCs LAB 789-8(LOINC) Erythrocytes 3.01 Low 4.50-5.90 x10* 6/uL LAB 718-7(LOINC) Hemoglobin 7.6 Low 13.5-17.5 g/dL LAB 4544-3(LOINC) Hematocrit 25.4 Low 41.0-52.0 % LAB 787-2(LOINC) Erythrocyte mean corpuscular volume 84 80-100 fL LAB 785-6(LOINC) Erythrocyte mean corpuscular hemoglobin 25.2 Low 26.0-34.0 pg LAB 786-4(LOINC) Erythrocyte mean corpuscular hemoglobin concentration 29.9 Low 32.0-36.0 g/dL LAB 788-0(LOINC) Erythrocyte distribution width 19.1 High 11.5-14.5 % LAB 777-3(LOINC) Platelets 145 Low 150-450 x10*3/uL LAB 770-8(LOINC) Neutrophils/100 leukocytes 76.2 40.0-80.0 % LAB 14246-5(LOINC ) Granulocytes.imm ature/100 leukocytes 0.8 0.0-0.9 % Result Comment: Immature Gra nulocyte Count (IG) includes promyelocytes, myelocytes and metamyelocytes but does not include bands. Percent differential counts (%) should be interpreted in the context of the absolute cell counts (cells/UL). LAB 736-9(LOINC) Lymphocytes/100 leukocytes 13.3 13.0-44.0 % LAB 5905-5(LOINC) Monocytes/100 leukocytes 7.5 2.0-10.0 % LAB 713-8(LOINC) Eosinophils/100 leukocytes 1.9 0.0-6.0 % LAB 706-2(LOINC) Basophils/100 leukocytes 0.3 0.0-2.0 % LAB 751-8(LOINC) Neutrophils 2.74 1.20-7.70 x10*3 /uL Result Comment: Percent diff erential counts (%) should be interpreted in the context of the absolute cell counts (cells/uL). LAB 06021-7(LOINC ) Granulocytes.imm ature 0.03 0.00-0.70 x10*3/uL LAB 731-0(LOINC) Lymphocytes 0.48 Low 1.20-4.80 x10*3 /uL LAB 742-7(LOINC) Monocytes 0.27 0.10-1.00 x10*3/u L LAB 711-2(LOINC) Eosinophils 0.07 0.00-0.70 x10*3 /uL LAB 704-7(LOINC) Basophils 0.01 0.00-0.10 x10*3/u L Performed By: #### 83569-4 # ### JASON Morales ([id number]) [facility] ([facility]) [address] [place] [address] MAGNESIUM Collected: 5:08 AM Status: F Source: [facility] TYPE CODE TESTS RESULT OUT OF RANGE REFERENCE UNITS LAB 83707-6(LOINC) Magnesium 2.14 1.60-2.40 mg/dL Performed By: #### 24408-3 # ### JASON Morales ([id number]) [facility] ([facility]) [address] [place] [address] RENAL FUNCTION 2000 PANEL Collected: 5:08 AM Status: F Source: [facility] TYPE CODE TESTS RESULT OUT OF RANGE REFERENCE UNITS LAB 2345-7(LOINC) Glucose 210 High 74-99 mg/dL LAB 2951-2(LOINC) Sodium 132 Low 136-145 mmol/L LAB 2823-3(LOINC) Potassium 5.6 High 3.5-5.3 mmol/L LAB 2075-0(LOINC) Chloride 109 High 98-107 mmol/L LAB 2028-9(LOINC) Carbon dioxide 17 Low 21-32 mmo l/L LAB 48687-8(LOINC) Anion gap 12 10-20 mmol/L LAB 3094-0(LOINC) Urea nitrogen 63 High 6-23 mg/d L LAB 2160-0(LOINC) Creatinine 3.07 High 0.50-1.30 mg/dL LAB 57655-9(LOINC) Glomerular filtration rate/1.73 sq M.predicted 23 Low >60 mL/min/1 .73m*2 Result Comment: Calculations of estimated GFR are performed using the 2020 CKD- EPI Study Refit equation without the race variable for the IDMS-Traceable creatinine methods. https://jasn.asnjournals.org/content/early//ASN.0970790512 LAB 91104-5(LOINC) Calcium 9.1 8.6-10.6 mg/dL LAB 2777-1(LOINC) Phosphate 4.1 2.5-4.9 mg/dL LAB 60821-6(LOINC) Albumin 3.1 Low 3.4-5.0 g/dL Performed By: #### 57094-9 # ### JASON Morales ([id number]) [facility] ([facility]) [address] [place] [address] TACROLIMUS Collected: 5 5:08 AM Status: F Source: [facility] Order Comment: NOTE: Result was obtained using a chemiluminescent microparticle immunoassay (CMIA) on the Computer Systems Hardware Analyst i system. Optimal therapeutic ranges for immunosuppressant drugs depend upon an individual patient's current clinical state, type of organ transplant, time post-transplant, co-administration of other immunosuppressants, and other clinical factors. The results of this test should be correlated with additional clinical and laboratory data before changes in treatment regimens are made. TYPE CODE TESTS RESULT OUT OF RANGE REFERENCE UNITS LAB 22353-5(LOINC) Tacrolimus 3.7 <=15.0 ng/mL Performed By: #### 31532-3 # ### JASON Morales ([id number]) [facility] ([facility]) [address] [place] [address] GLUCOSE Collected: 5 8:02 PM Status: F Source: [facility] TYPE CODE TESTS RESULT OUT OF RANGE REFERENCE UNITS LAB 2341-6(LOINC) Glucose 128 High 74-99 mg/dL Performed By: #### 2341-6 ## ## JASON SCHMOTZER L ([id number]) [facility] ([facility]) [address] [place] [address] GLUCOSE Collected: 5 4:19 PM Status: F Source: [facility] TYPE CODE TESTS RESULT OUT OF RANGE REFERENCE UNITS LAB 2341-6(LOINC) Glucose 265 High 74-99 mg/dL Performed By: #### 2341-6 ## ## JASON SCHMOTZER L ([id number]) [facility] ([facility]) [address] [place] [address] GLUCOSE Collected: 5 12:43 PM Status: F Source: [facility] TYPE CODE TESTS RESULT OUT OF RANGE REFERENCE UNITS LAB 2341-6(LOINC) Glucose 204 High 74-99 mg/dL Performed By: #### 2341-6 ## ## JASON SCHMOTZER L ([id number]) [facility] ([facility]) [address] [place] [address] GLUCOSE Collected: 5 8:06 AM Status: F Source: [facility] TYPE CODE TESTS RESULT OUT OF RANGE REFERENCE UNITS LAB 2341-6(LOINC) Glucose 167 High 74-99 mg/dL Performed By: #### 2341-6 ## ## JASON SCHMOTZER L ([id number]) [facility] ([facility]) [address] [place] [address] MAGNESIUM Collected: 5 5:26 AM Status: F Source: [facility] TYPE CODE TESTS RESULT OUT OF RANGE REFERENCE UNITS LAB 65252-5(LOINC) Magnesium 1.55 Low 1.60-2.40 mg/dL Performed By: #### 27029-4 # ### JASON Morales ([id number]) [facility] ([facility]) [address] [place] [address] RENAL FUNCTION 2000 PANEL Collected: 5:26 AM Status: F Source: [facility] TYPE CODE TESTS RESULT OUT OF RANGE REFERENCE UNITS LAB 2345-7(LOINC) Glucose 136 High 74-99 mg/dL LAB 2951-2(LOINC) Sodium 135 Low 136-145 mmol/L LAB 2823-3(LOINC) Potassium 4.9 3.5-5.3 mmol/L LAB 2075-0(LOINC) Chloride 112 High 98-107 mmol/L LAB 8-9(LOINC) Carbon dioxide 17 Low 21-32 mmo l/L LAB 61120-5(LOINC) Anion gap 11 10-20 mmol/L LAB 3094-0(LOINC) Urea nitrogen 60 High 6-23 mg/d L LAB 2160-0(LOINC) Creatinine 2.40 High 0.50-1.30 mg/dL LAB 05329-9(LOINC) Glomerular filtration rate/1.73 sq M.predicted 31 Low >60 mL/min/1 .73m*2 Result Comment: Calculations of estimated GFR are performed using the 2020 CKD- EPI Study Refit equation without the race variable for the IDMS-Traceable creatinine methods. https://jasn.asnjournals.org/content/early//ASN.5151041179 LAB 49701-2(LOINC) Calcium 8.8 8.6-10.6 mg/dL LAB 2777-1(LOINC) Phosphate 3.8 2.5-4.9 mg/dL LAB 06566-7(LOINC) Albumin 3.1 Low 3.4-5.0 g/dL Performed By: #### 06318-8 # ### JASON Morales ([id number]) [facility] ([facility]) [address] [place] [address] COMPLETE BLOOD COUNT W AUTO DIFFERENTIAL PANEL Collected: 12/19/2024 5:25 AM Status: F Source: [facility] TYPE CODE TESTS RESULT OUT OF RANGE REFERENCE UNITS LAB 6690-2(LOINC) Leukocytes 4.4 4.4-11.3 x10*3/ uL LAB 23995-1(LOINC ) Erythrocytes.nuc leated/100 leukocytes 0.0 0.0-0.0 /100 WBCs LAB 789-8(LOINC) Erythrocytes 3.22 Low 4.50-5.90 x10* 6/uL LAB 718-7(LOINC) Hemoglobin 8.5 Low 13.5-17.5 g/dL LAB 4544-3(LOINC) Hematocrit 26.8 Low 41.0-52.0 % LAB 787-2(LOINC) Erythrocyte mean corpuscular volume 83 80-100 fL LAB 785-6(LOINC) Erythrocyte mean corpuscular hemoglobin 26.4 26.0-34.0 pg LAB 786-4(LOINC) Erythrocyte mean corpuscular hemoglobin concentration 31.7 Low 32.0-36.0 g/dL LAB 788-0(LOINC) Erythrocyte distribution width 18.8 High 11.5-14.5 % LAB 777-3(LOINC) Platelets 140 Low 150-450 x10*3/uL LAB 770-8(LOINC) Neutrophils/100 leukocytes 78.2 40.0-80.0 % LAB 42383-7(LOINC ) Granulocytes.imm ature/100 leukocytes 0.9 0.0-0.9 % Result Comment: Immature Gra nulocyte Count (IG) includes promyelocytes, myelocytes and metamyelocytes but does not include bands. Percent differential counts (%) should be interpreted in the context of the absolute cell counts (cells/UL). LAB 736-9(LOINC) Lymphocytes/100 leukocytes 12.6 13.0-44.0 % LAB 5905-5(LOINC) Monocytes/100 leukocytes 6.7 2.0-10.0 % LAB 713-8(LOINC) Eosinophils/100 leukocytes 1.4 0.0-6.0 % LAB 706-2(LOINC) Basophils/100 leukocytes 0.2 0.0-2.0 % LAB 751-8(LOINC) Neutrophils 3.41 1.20-7.70 x10*3 /uL Result Comment: Percent diff erential counts (%) should be interpreted in the context of the absolute cell counts (cells/uL). LAB 51426-2(LOINC ) Granulocytes.imm ature 0.04 0.00-0.70 x10*3/uL LAB 731-0(LOINC) Lymphocytes 0.55 Low 1.20-4.80 x10*3 /uL LAB 742-7(LOINC) Monocytes 0.29 0.10-1.00 x10*3/u L LAB 711-2(LOINC) Eosinophils 0.06 0.00-0.70 x10*3 /uL LAB 704-7(LOINC) Basophils 0.01 0.00-0.10 x10*3/u L Performed By: #### 97659-7 # ### JASON Morales ([id number]) [facility] ([facility]) [address] [place] [address] TACROLIMUS Collected: 5 5:25 AM Status: F Source: [facility] Order Comment: NOTE: Result was obtained using a chemiluminescent microparticle immunoassay (CMIA) on the Computer [employer] Hardware Analyst i system. Optimal therapeutic ranges for immunosuppressant drugs depend upon an individual patient's current clinical state, type of organ transplant, time post-transplant, co-administration of other immunosuppressants, and other clinical factors. The results of this test should be correlated with additional clinical and laboratory data before changes in treatment regimens are made. TYPE CODE TESTS RESULT OUT OF RANGE REFERENCE UNITS LAB 58391-8(LOINC) Tacrolimus 3.7 <=15.0 ng/mL Performed By: #### 83845-5 # ### JASON Morales ([id number]) [facility] ([facility]) [address] [place], [place] [id number] GLUCOSE Collected: 5 7:17 PM Status: F Source: [facility] TYPE CODE TESTS RESULT OUT OF RANGE REFERENCE UNITS LAB 2341-6(LOINC) Glucose 171 High 74-99 mg/dL Performed By: #### 2341-6 ## ## JASON Morales ([id number]) [facility] ([facility]) [address] [place] [address] GLUCOSE Collected: 3:53 PM Status: F Source: [facility] TYPE CODE TESTS RESULT OUT OF RANGE REFERENCE UNITS LAB 2341-6(LOINC) Glucose 210 High 74-99 mg/dL Performed By: #### 2341-6 ## ## JASON SCHMOTZER L ([id number]) [facility] ([facility]) [address] [place], [place] [id number] GLUCOSE Collected: 12:25 PM Status: F Source: [facility] TYPE CODE TESTS RESULT OUT OF RANGE REFERENCE UNITS LAB 2341-6(LOINC) Glucose 267 High 74-99 mg/dL Performed By: #### 2341-6 ## ## JASON SCHMOTZER L ([id number]) [facility] ([facility]) [address] [place], [place] [id number] GLUCOSE Collected: 7:42 AM Status: F Source: [facility] TYPE CODE TESTS RESULT OUT OF RANGE REFERENCE UNITS LAB 2341-6(LOINC) Glucose 160 High 74-99 mg/dL Performed By: #### 2341-6 ## ## JASON SCHMOTZER L ([id number]) [facility] ([facility]) [address] [place], [place] [id number] MAGNESIUM Collected: 5:21 AM Status: F Source: [facility] TYPE CODE TESTS RESULT OUT OF RANGE REFERENCE UNITS LAB 07720-3(INC) Magnesium 1.62 1.60-2.40 mg/dL Performed By: #### 21631-2 # ### JASON SCHMOTZER L ([id number]) [facility] ([facility]) [address] [place], [place] [id number] RENAL FUNCTION 2000 PANEL Collected: 5:21 AM Status: F Source: [facility] TYPE CODE TESTS RESULT OUT OF RANGE REFERENCE UNITS LAB 2345-7(LOINC) Glucose 167 High 74-99 mg/dL LAB 2951-2(LOINC) Sodium 133 Low 136-145 mmol/L LAB 2823-3(LOINC) Potassium 4.8 3.5-5.3 mmol/L LAB 2075-0(LOINC) Chloride 111 High 98-107 mmol/L LAB 2027-9(LOINC) Carbon dioxide 15 Low 21-32 mmo l/L LAB 17536-9(LOINC) Anion gap 12 10-20 mmol/L LAB 3094-0(LOINC) Urea nitrogen 62 High 6-23 mg/d L LAB 2160-0(LOINC) Creatinine 2.78 High 0.50-1.30 mg/dL LAB 39903-2(LOINC) Glomerular filtration rate/1.73 sq M.predicted 26 Low >60 mL/min/1 .73m*2 Result Comment: Calculations of estimated GFR are performed using the 2020 CKD- EPI Study Refit equation without the race variable for the IDMS-Traceable creatinine methods. https://jasn.asnjournals.org/content/early//ASN.1763623972 LAB 31627-4(LOINC) Calcium 8.4 Low 8.6-10.6 mg/dL LAB 2777-1(LOINC) Phosphate 3.3 2.5-4.9 mg/dL LAB 65342-5(LOINC) Albumin 3.0 Low 3.4-5.0 g/dL Performed By: #### 22942-7 # ### JASON Morales ([id number]) [facility] ([facility]) [address] [place] [address] COMPLETE BLOOD COUNT W AUTO DIFFERENTIAL PANEL Collected: 12/18/2024 5:21 AM Status: F Source: [facility] TYPE CODE TESTS RESULT OUT OF RANGE REFERENCE UNITS LAB 6690-2(LOINC) Leukocytes 3.8 Low 4.4-11.3 x10*3/ uL LAB 09242-3(LOINC ) Erythrocytes.nuc leated/100 leukocytes 0.0 0.0-0.0 /100 WBCs LAB 789-8(LOINC) Erythrocytes 3.22 Low 4.50-5.90 x10* 6/uL LAB 718-7(LOINC) Hemoglobin 8.2 Low 13.5-17.5 g/dL LAB 4544-3(LOINC) Hematocrit 27.0 Low 41.0-52.0 % LAB 787-2(LOINC) Erythrocyte mean corpuscular volume 84 80-100 fL LAB 785-6(LOINC) Erythrocyte mean corpuscular hemoglobin 25.5 Low 26.0-34.0 pg LAB 786-4(LOINC) Erythrocyte mean corpuscular hemoglobin concentration 30.4 Low 32.0-36.0 g/dL LAB 788-0(LOINC) Erythrocyte distribution width 18.8 High 11.5-14.5 % LAB 777-3(LOINC) Platelets 121 Low 150-450 x10*3/uL LAB 770-8(LOINC) Neutrophils/100 leukocytes 75.9 40.0-80.0 % LAB 70472-9(LOINC ) Granulocytes.imm ature/100 leukocytes 0.5 0.0-0.9 % Result Comment: Immature Gra nulocyte Count (IG) includes promyelocytes, myelocytes and metamyelocytes but does not include bands. Percent differential counts (%) should be interpreted in the context of the absolute cell counts (cells/UL). LAB 736-9(LOINC) Lymphocytes/100 leukocytes 16.4 13.0-44.0 % LAB 5905-5(LOINC) Monocytes/100 leukocytes 6.1 2.0-10.0 % LAB 713-8(LOINC) Eosinophils/100 leukocytes 1.1 0.0-6.0 % LAB 706-2(LOINC) Basophils/100 leukocytes 0.0 0.0-2.0 % LAB 751-8(LOINC) Neutrophils 2.88 1.20-7.70 x10*3 /uL Result Comment: Percent diff erential counts (%) should be interpreted in the context of the absolute cell counts (cells/uL). LAB 16475-2(LOINC ) Granulocytes.imm ature 0.02 0.00-0.70 x10*3/uL LAB 731-0(LOINC) Lymphocytes 0.62 Low 1.20-4.80 x10*3 /uL LAB 742-7(LOINC) Monocytes 0.23 0.10-1.00 x10*3/u L LAB 711-2(LOINC) Eosinophils 0.04 0.00-0.70 x10*3 /uL LAB 704-7(LOINC) Basophils 0.00 0.00-0.10 x10*3/u L Performed By: #### 79930-3 # ### JASON Morales ([id number]) [facility] ([facility]) [address] [place] [address] TACROLIMUS Collected: 5 5:21 AM Status: F Source: [facility] Order Comment: NOTE: Result was obtained using a chemiluminescent microparticle immunoassay (CMIA) on the [employer]st i system. Optimal therapeutic ranges for immunosuppressant drugs depend upon an individual patient's current clinical state, type of organ transplant, time post-transplant, co-administration of other immunosuppressants, and other clinical factors. The results of this test should be correlated with additional clinical and laboratory data before changes in treatment regimens are made. TYPE CODE TESTS RESULT OUT OF RANGE REFERENCE UNITS LAB 51860-3(LOINC) Tacrolimus 4.7 <=15.0 ng/mL Performed By: #### 99227-2 # ### JASON Morales ([id number]) [facility] ([facility]) [address] [place], [place] [id number] GLUCOSE Collected: 5 7:26 PM Status: F Source: [facility] TYPE CODE TESTS RESULT OUT OF RANGE REFERENCE UNITS LAB 2341-6(LOINC) Glucose 184 High 74-99 mg/dL Performed By: #### 2341-6 ## ## JASON CLARKMOZAY Morales ([id number]) [facility] ([facility]) [address] [place] [id number] GLUCOSE Collected: 5 3:10 PM Status: F Source: [facility] TYPE CODE TESTS RESULT OUT OF RANGE REFERENCE UNITS LAB 2341-6(LOINC) Glucose 145 High 74-99 mg/dL Performed By: #### 2341-6 ## ## JASON SCHMOTZER L ([id number]) [facility] ([facility]) [address] [place] [id number] GLUCOSE Collected: 5 3:00 PM Status: F Source: [facility] TYPE CODE TESTS RESULT OUT OF RANGE REFERENCE UNITS LAB 2341-6(LOINC) Glucose 120 High 74-99 mg/dL Performed By: #### 2341-6 ## ## JASON Morales ([id number]) [facility] ([facility]) [address] [place] [id number] GLUCOSE Collected: 11:17 AM Status: F Source: [facility] TYPE CODE TESTS RESULT OUT OF RANGE REFERENCE UNITS LAB 2341-6(LOINC) Glucose 285 High 74-99 mg/dL Performed By: #### 2341-6 ## ## JASON Morales ([id number]) [facility] ([facility]) [address] [place] [address] GLUCOSE Collected: 7:28 AM Status: F Source: [facility] TYPE CODE TESTS RESULT OUT OF RANGE REFERENCE UNITS LAB 2341-6(LOINC) Glucose 294 High 74-99 mg/dL Performed By: #### 2341-6 ## ## JASON Morales ([id number]) [facility] ([facility]) [address] [place] [address] MAGNESIUM Collected: 5:18 AM Status: F Source: [facility] TYPE CODE TESTS RESULT OUT OF RANGE REFERENCE UNITS LAB 88990-1(LOINC) Magnesium 1.73 1.60-2.40 mg/dL Performed By: #### 00691-4 # ### JASON Morales ([id number]) [facility] ([facility]) [address] [place], [place] [id number] RENAL FUNCTION 2000 PANEL Collected: 5:18 AM Status: F Source: [facility] TYPE CODE TESTS RESULT OUT OF RANGE REFERENCE UNITS LAB 2345-7(LOINC) Glucose 292 High 74-99 mg/dL LAB 2951-2(LOINC) Sodium 133 Low 136-145 mmol/L LAB 2823-3(LOINC) Potassium 5.2 3.5-5.3 mmol/L LAB 2075-0(LOINC) Chloride 107 98-107 mmol/L LAB 8-9(LOINC) Carbon dioxide 19 Low 21-32 mmo l/L LAB 97352-1(LOINC) Anion gap 12 10-20 mmol/L LAB 3094-0(LOINC) Urea nitrogen 69 High 6-23 mg/d L LAB 2160-0(LOINC) Creatinine 3.07 High 0.50-1.30 mg/dL LAB 40415-9(LOINC) Glomerular filtration rate/1.73 sq M.predicted 23 Low >60 mL/min/1 .73m*2 Result Comment: Calculations of estimated GFR are performed using the 2020 CKD- EPI Study Refit equation without the race variable for the IDMS-Traceable creatinine methods. https://jasn.asnjournals.org/content/early/ASN.1684559000 LAB 90301-5(LOINC) Calcium 8.8 8.6-10.6 mg/dL LAB 2777-1(LOINC) Phosphate 3.4 2.5-4.9 mg/dL LAB 17512-2(LOINC) Albumin 2.9 Low 3.4-5.0 g/dL Performed By: #### 40767-1 # ### JASON Morales ([id number]) [facility] ([facility]) [address] [place] [address] COMPLETE BLOOD COUNT W AUTO DIFFERENTIAL PANEL Collected: 12/17/2024 5:18 AM Status: F Source: [facility] TYPE CODE TESTS RESULT OUT OF RANGE REFERENCE UNITS LAB 6690-2(LOINC) Leukocytes 3.6 Low 4.4-11.3 x10*3/ uL LAB 67780-3(LOINC ) Erythrocytes.nuc leated/100 leukocytes 0.0 0.0-0.0 /100 WBCs LAB 789-8(LOINC) Erythrocytes 3.21 Low 4.50-5.90 x10* 6/uL LAB 718-7(LOINC) Hemoglobin 8.3 Low 13.5-17.5 g/dL LAB 4544-3(LOINC) Hematocrit 26.3 Low 41.0-52.0 % LAB 787-2(LOINC) Erythrocyte mean corpuscular volume 82 80-100 fL LAB 785-6(LOINC) Erythrocyte mean corpuscular hemoglobin 25.9 Low 26.0-34.0 pg LAB 786-4(LOINC) Erythrocyte mean corpuscular hemoglobin concentration 31.6 Low 32.0-36.0 g/dL LAB 788-0(LOINC) Erythrocyte distribution width 18.9 High 11.5-14.5 % LAB 777-3(LOINC) Platelets 122 Low 150-450 x10*3/uL LAB 770-8(LOINC) Neutrophils/100 leukocytes 76.2 40.0-80.0 % LAB 04850-4(LOINC ) Granulocytes.imm ature/100 leukocytes 0.6 0.0-0.9 % Result Comment: Immature Gra nulocyte Count (IG) includes promyelocytes, myelocytes and metamyelocytes but does not include bands. Percent differential counts (%) should be interpreted in the context of the absolute cell counts (cells/UL). LAB 736-9(LOINC) Lymphocytes/100 leukocytes 16.0 13.0-44.0 % LAB 5905-5(LOINC) Monocytes/100 leukocytes 5.5 2.0-10.0 % LAB 713-8(LOINC) Eosinophils/100 leukocytes 1.4 0.0-6.0 % LAB 706-2(LOINC) Basophils/100 leukocytes 0.3 0.0-2.0 % LAB 751-8(LOINC) Neutrophils 2.76 1.20-7.70 x10*3 /uL Result Comment: Percent diff erential counts (%) should be interpreted in the context of the absolute cell counts (cells/uL). LAB 36142-4(LOINC ) Granulocytes.imm ature 0.02 0.00-0.70 x10*3/uL LAB 731-0(LOINC) Lymphocytes 0.58 Low 1.20-4.80 x10*3 /uL LAB 742-7(LOINC) Monocytes 0.20 0.10-1.00 x10*3/u L LAB 711-2(LOINC) Eosinophils 0.05 0.00-0.70 x10*3 /uL LAB 704-7(LOINC) Basophils 0.01 0.00-0.10 x10*3/u L Performed By: #### 87480-3 # ### JASON Morales ([id number]) [facility] ([facility]) [address] [place] [address] TACROLIMUS Collected: 5 5:18 AM Status: F Source: [facility] Order Comment: NOTE: Result was obtained using a chemiluminescent microparticle immunoassay (CMIA) on the Computer Systems Hardware Analyst i system. Optimal therapeutic ranges for immunosuppressant drugs depend upon an individual patient's current clinical state, type of organ transplant, time post-transplant, co-administration of other immunosuppressants, and other clinical factors. The results of this test should be correlated with additional clinical and laboratory data before changes in treatment regimens are made. TYPE CODE TESTS RESULT OUT OF RANGE REFERENCE UNITS LAB 95328-7(LOINC) Tacrolimus 5.1 <=15.0 ng/mL Performed By: #### 04429-8 # ### JASON Morales ([id number]) [facility] ([facility]) [address] [place] [address] GLUCOSE Collected: 5 7:45 PM Status: F Source: [facility] TYPE CODE TESTS RESULT OUT OF RANGE REFERENCE UNITS LAB 2341-6(LOINC) Glucose 235 High 74-99 mg/dL Performed By: #### 2341-6 ## ## JASON CLARKMOTZER L ([id number]) [facility] ([facility]) [address] [place] [address] GLUCOSE Collected: 5 4:07 PM Status: F Source: [facility] TYPE CODE TESTS RESULT OUT OF RANGE REFERENCE UNITS LAB 2341-6(LOINC) Glucose 244 High 74-99 mg/dL Performed By: #### 2341-6 ## ## JASON SCHMOTZER L ([id number]) [facility] ([facility]) [address] [place] [address] GLUCOSE Collected: 5 11:48 AM Status: F Source: [facility] TYPE CODE TESTS RESULT OUT OF RANGE REFERENCE UNITS LAB 2341-6(LOINC) Glucose 242 High 74-99 mg/dL Performed By: #### 2341-6 ## ## JASON SCHMOTZER L ([id number]) [facility] ([facility]) [address] [place] [address] GLUCOSE Collected: 5 8:26 AM Status: F Source: [facility] TYPE CODE TESTS RESULT OUT OF RANGE REFERENCE UNITS LAB 2341-6(LOINC) Glucose 231 High 74-99 mg/dL Performed By: #### 2341-6 ## ## JASON Morales ([id number]) [facility] ([facility]) [address] [place] [address] COMPLETE BLOOD COUNT W AUTO DIFFERENTIAL PANEL Collected: 12/16/2024 5:34 AM Status: F Source: [facility] TYPE CODE TESTS RESULT OUT OF RANGE REFERENCE UNITS LAB 6690-2(LOINC) Leukocytes 4.5 4.4-11.3 x10*3/ uL LAB 25251-6(LOINC ) Erythrocytes.nuc leated/100 leukocytes 0.0 0.0-0.0 /100 WBCs LAB 789-8(LOINC) Erythrocytes 3.37 Low 4.50-5.90 x10* 6/uL LAB 718-7(LOINC) Hemoglobin 8.9 Low 13.5-17.5 g/dL LAB 4544-3(LOINC) Hematocrit 27.8 Low 41.0-52.0 % LAB 787-2(LOINC) Erythrocyte mean corpuscular volume 83 80-100 fL LAB 785-6(LOINC) Erythrocyte mean corpuscular hemoglobin 26.4 26.0-34.0 pg LAB 786-4(LOINC) Erythrocyte mean corpuscular hemoglobin concentration 32.0 32.0-36.0 g/dL LAB 788-0(LOINC) Erythrocyte distribution width 18.6 High 11.5-14.5 % LAB 777-3(LOINC) Platelets 115 Low 150-450 x10*3/uL LAB 770-8(LOINC) Neutrophils/100 leukocytes 75.8 40.0-80.0 % LAB 58202-9(LOINC ) Granulocytes.imm ature/100 leukocytes 0.4 0.0-0.9 % Result Comment: Immature Gra nulocyte Count (IG) includes promyelocytes, myelocytes and metamyelocytes but does not include bands. Percent differential counts (%) should be interpreted in the context of the absolute cell counts (cells/UL). LAB 736-9(LOINC) Lymphocytes/100 leukocytes 15.9 13.0-44.0 % LAB 5905-5(LOINC) Monocytes/100 leukocytes 6.1 2.0-10.0 % LAB 713-8(LOINC) Eosinophils/100 leukocytes 1.6 0.0-6.0 % LAB 706-2(LOINC) Basophils/100 leukocytes 0.2 0.0-2.0 % LAB 751-8(LOINC) Neutrophils 3.38 1.20-7.70 x10*3 /uL Result Comment: Percent diff erential counts (%) should be interpreted in the context of the absolute cell counts (cells/uL). LAB 10390-7(LOINC ) Granulocytes.imm ature 0.02 0.00-0.70 x10*3/uL LAB 731-0(LOINC) Lymphocytes 0.71 Low 1.20-4.80 x10*3 /uL LAB 742-7(LOINC) Monocytes 0.27 0.10-1.00 x10*3/u L LAB 711-2(LOINC) Eosinophils 0.07 0.00-0.70 x10*3 /uL LAB 704-7(LOINC) Basophils 0.01 0.00-0.10 x10*3/u L Performed By: #### 07687-5 # ### JASON Morales ([id number]) [facility] ([facility]) [address] [place] [address] MAGNESIUM Collected: 5:34 AM Status: F Source: [facility] TYPE CODE TESTS RESULT OUT OF RANGE REFERENCE UNITS LAB 60620-8(LOINC) Magnesium 1.83 1.60-2.40 mg/dL Performed By: #### 37038-0 # ### JASON CLARKMOTZER Foreign ([id number]) [facility] ([facility]) [id number] [place] [address] RENAL FUNCTION 2000 PANEL Collected: 5:34 AM Status: F Source: [facility] TYPE CODE TESTS RESULT OUT OF RANGE REFERENCE UNITS LAB 2345-7(LOINC) Glucose 250 High 74-99 mg/dL LAB 2951-2(LOINC) Sodium 133 Low 136-145 mmol/L LAB 2823-3(LOINC) Potassium 4.5 3.5-5.3 mmol/L LAB 2075-0(LOINC) Chloride 105 98-107 mmol/L LAB 2027-9(LOINC) Carbon dioxide 21 21-32 mmo l/L LAB 73313-8(LOINC) Anion gap 12 10-20 mmol/L LAB 3094-0(LOINC) Urea nitrogen 78 High 6-23 mg/d L LAB 2160-0(LOINC) Creatinine 3.09 High 0.50-1.30 mg/dL LAB 00542-8(LOINC) Glomerular filtration rate/1.73 sq M.predicted 23 Low >60 mL/min/1 .73m*2 Result Comment: Calculations of estimated GFR are performed using the 2020 CKD- EPI Study Refit equation without the race variable for the IDMS-Traceable creatinine methods. https://jasn.asnjournals.org/content/early//ASN.9702433856 LAB 53977-7(LOINC) Calcium 8.8 8.6-10.6 mg/dL LAB 2777-1(LOINC) Phosphate 4.2 2.5-4.9 mg/dL LAB 00259-0(LOINC) Albumin 3.0 Low 3.4-5.0 g/dL Performed By: #### 34459-9 # ### JASON Morales ([id number]) [facility] ([facility]) [address] [place] [address] TACROLIMUS Collected: 5 5:34 AM Status: F Source: [facility] Order Comment: NOTE: Result was obtained using a chemiluminescent microparticle immunoassay (CMIA) on the Computer [employer] Hardware Analyst i system. Optimal therapeutic ranges for immunosuppressant drugs depend upon an individual patient's current clinical state, type of organ transplant, time post-transplant, co-administration of other immunosuppressants, and other clinical factors. The results of this test should be correlated with additional clinical and laboratory data before changes in treatment regimens are made. TYPE CODE TESTS RESULT OUT OF RANGE REFERENCE UNITS LAB 49404-0(LOINC) Tacrolimus 5.8 <=15.0 ng/mL Performed By: #### 45277-8 # ### JASON Morales ([id number]) [facility] ([facility]) [address] [place] [address] GLUCOSE Collected: 5 7:12 PM Status: F Source: [facility] TYPE CODE TESTS RESULT OUT OF RANGE REFERENCE UNITS LAB 2341-6(LOINC) Glucose 319 High 74-99 mg/dL Performed By: #### 2341-6 ## ## JASON Morales ([id number]) [facility] ([facility]) [address] [place] [address] GLUCOSE Collected: 2:59 PM Status: F Source: [facility] TYPE CODE TESTS RESULT OUT OF RANGE REFERENCE UNITS LAB 2341-6(LOINC) Glucose 261 High 74-99 mg/dL Performed By: #### 2341-6 ## ## JASON Morales ([id number]) [facility] ([facility]) [address] [place] [address] URINALYSIS COMPLETE W REFLEX CULTURE PANEL Collected: 12/15/2024 2:16 PM Status: F Source: [facility] TYPE CODE TESTS RESULT OUT OF RANGE REFERENCE UNITS LAB 41021-1(LOINC) Leukocytes 1-5 1-5, NONE /HPF LAB 61365-7(LOINC) Erythrocytes 1-2 NO NE, 1-2, 3-5 /HPF LAB 80451-0(LOINC) Hyaline casts OCCASIONAL Abnormal NONE /LPF Performed By: #### 09915-8 # ### JASON Morales ([id number]) [facility] ([facility]) [address] [place] [address] URINALYSIS COMPLETE W REFLEX CULTURE PANEL Collected: 12/15/2024 2:16 PM Status: F Source: [facility] Order Comment: OVER is repor marleny when the result is greater than the clinically reportable range. TYPE CODE TESTS RESULT OUT OF RANGE REFERENCE UNITS LAB 5778-6(LOINC) Color Light-Yellow Lig ht-Yellow , Yellow, Dark-Yellow LAB 5767-9(LOINC) Appearance Clear Clear LAB 21828-4(LOINC) Specific gravity 1.015 1.005-1.035 LAB 36697-6(LOINC) pH 6.5 5.0, 5.5, 6.0, 6.5, 7.0, 7.5, 8.0 LAB 64050-2(LOINC) Protein 20 (TRACE) NEGA TIVE, 10 (TRACE), 20 (TRACE) mg/dL LAB 95595-1(LOINC) Glucose OVER (4+) Abnormal Normal mg/dL LAB 23332-9(LOINC) Erythrocytes NEGATIVE NEGATIVE mg /dL LAB 19838-3(LOINC) Ketones NEGATIVE NEGATIVE mg/dL LAB 66310-5([facility]) Bilirubin NEGATIVE NEGATIVE mg/dL LAB 69580-4(LOINC) Urobilinogen Normal Normal mg/d L LAB 31284-9(LOINC) Nitrite NEGATIVE NEGATIVE LAB 55151-6([facility]) Leukocyte esterase NEGATIVE NEGATIVE Performed By: #### 18207-4 # ### JASON Morales ([id number]) [facility] ([facility]) [address] [place] [address] GLUCOSE Collected: 11:17 AM Status: F Source: [facility] TYPE CODE TESTS RESULT OUT OF RANGE REFERENCE UNITS LAB 2341-6([facility]) Glucose 385 High 74-99 mg/dL Performed By: #### 2341-6 ## ## JASON SUTHERLANDER Foreign ([id number]) [facility] ([facility]) [address] [place] [address] COMPLETE BLOOD COUNT W AUTO DIFFERENTIAL PANEL Collected: 12/15/2024 11:15 AM Status: F Source: [facility] TYPE CODE TESTS RESULT OUT OF RANGE REFERENCE UNITS LAB 6690-2([facility]) Leukocytes 4.3 Low 4.4-11.3 x10*3/ uL LAB 61189-7([facility] ) Erythrocytes.nuc leated/100 leukocytes 0.0 0.0-0.0 /100 WBCs LAB 789-8([facility]) Erythrocytes 3.04 Low 4.50-5.90 x10* 6/uL LAB 718-7(LOINC) Hemoglobin 7.7 Low 13.5-17.5 g/dL LAB 4544-3(LOINC) Hematocrit 24.6 Low 41.0-52.0 % LAB 787-2(LOINC) Erythrocyte mean corpuscular volume 81 80-100 fL LAB 785-6(LOINC) Erythrocyte mean corpuscular hemoglobin 25.3 Low 26.0-34.0 pg LAB 786-4(LOINC) Erythrocyte mean corpuscular hemoglobin concentration 31.3 Low 32.0-36.0 g/dL LAB 788-0(LOINC) Erythrocyte distribution width 18.5 High 11.5-14.5 % LAB 777-3(LOINC) Platelets 100 Low 150-450 x10*3/uL LAB 770-8(LOINC) Neutrophils/100 leukocytes 87.1 40.0-80.0 % LAB 28023-4(LOINC ) Granulocytes.imm ature/100 leukocytes 0.7 0.0-0.9 % Result Comment: Immature Gra nulocyte Count (IG) includes promyelocytes, myelocytes and metamyelocytes but does not include bands. Percent differential counts (%) should be interpreted in the context of the absolute cell counts (cells/UL). LAB 736-9(LOINC) Lymphocytes/100 leukocytes 6.5 13.0-44.0 % LAB 5905-5(LOINC) Monocytes/100 leukocytes 4.6 2.0-10.0 % LAB 713-8(LOINC) Eosinophils/100 leukocytes 0.9 0.0-6.0 % LAB 706-2(LOINC) Basophils/100 leukocytes 0.2 0.0-2.0 % LAB 751-8(LOINC) Neutrophils 3.76 1.20-7.70 x10*3 /uL Result Comment: Percent diff erential counts (%) should be interpreted in the context of the absolute cell counts (cells/uL). LAB 68384-3(LOINC ) Granulocytes.imm ature 0.03 0.00-0.70 x10*3/uL LAB 731-0(LOINC) Lymphocytes 0.28 Low 1.20-4.80 x10*3 /uL LAB 742-7(LOINC) Monocytes 0.20 0.10-1.00 x10*3/u L LAB 711-2(LOINC) Eosinophils 0.04 0.00-0.70 x10*3 /uL LAB 704-7(LOINC) Basophils 0.01 0.00-0.10 x10*3/u L Performed By: #### 08025-1 # ### JASON Morales ([id number]) [facility] ([facility]) [address] [place] [address] MAGNESIUM Collected: 11:15 AM Status: F Source: [facility] TYPE CODE TESTS RESULT OUT OF RANGE REFERENCE UNITS LAB 90026-9(LOINC) Magnesium 1.78 1.60-2.40 mg/dL Performed By: #### 27504-5 # ### JASON Morales ([id number]) [facility] ([facility]) [address] [place] [address] RENAL FUNCTION 2000 PANEL Collected: 11:15 AM Status: F Source: [facility] TYPE CODE TESTS RESULT OUT OF RANGE REFERENCE UNITS LAB 2345-7(LOINC) Glucose 467 High Alert 74-99 mg/dL LAB 2951-2(LOINC) Sodium 132 Low 136-145 mmol/L LAB 2823-3(LOINC) Potassium 4.0 3.5-5.3 mmol/L LAB 2075-0(LOINC) Chloride 100 98-107 mmol/L LAB 2027-9(LOINC) Carbon dioxide 22 21-32 mmo l/L LAB 75889-6(LOINC) Anion gap 14 10-20 mmol/L LAB 3094-0(LOINC) Urea nitrogen 73 High 6-23 mg/d L LAB 2160-0(LOINC) Creatinine 3.26 High 0.50-1.30 mg/dL LAB 49964-7(LOINC) Glomerular filtration rate/1.73 sq M.predicted 21 Low >60 mL/min/1 .73m*2 Result Comment: Calculations of estimated GFR are performed using the 2020 CKD- EPI Study Refit equation without the race variable for the IDMS-Traceable creatinine methods. https://jasn.asnjournals.org/content/early//ASN.8607455672 LAB 68729-5(LOINC) Calcium 8.6 8.6-10.6 mg/dL LAB 2777-1(LOINC) Phosphate 4.6 2.5-4.9 mg/dL LAB 90822-8(LOINC) Albumin 3.1 Low 3.4-5.0 g/dL Performed By: #### 15169-7 # ### JASON Morales ([id number]) [facility] ([facility]) [address] [place] [address] TACROLIMUS Collected: 11:15 AM Status: F Source: [facility] Order Comment: NOTE: Result was obtained using a chemiluminescent microparticle immunoassay (CMIA) on the Computer Systems Hardware Analyst i system. Optimal therapeutic ranges for immunosuppressant drugs depend upon an individual patient's current clinical state, type of organ transplant, time post-transplant, co-administration of other immunosuppressants, and other clinical factors. The results of this test should be correlated with additional clinical and laboratory data before changes in treatment regimens are made. TYPE CODE TESTS RESULT OUT OF RANGE REFERENCE UNITS LAB 51424-6(LOINC) Tacrolimus 50.1 High Alert <=15.0 ng/mL Performed By: #### 37175-6 # ### JASON Morales ([id number]) [facility] ([facility]) [address] [place] [address] CELL-FREE DNA.DONOR/CELL-ALMA DELIA E DNA.TOTAL^POST KIDNEY TRANSPLANT Collected: 12/15/2024 11:15 AM Status: F Source: [facility] TYPE CODE TESTS RESULT OUT OF RANGE REFERENCE UNITS LAB 73543-2(LOINC) Cell-free DNA.donor/Jennifer l-free DNA.total^pos t kidney transplant 0.54 See Note % LAB 52844-6(LOINC) Transplant type Kidney LAB ASURENOTES NOTES - ALLOSURE See Note Result Comment: INTERPRETATI ON OF ALLOSURE KIDNEY RESULTS AlloSure measures the percent of donor-derived cell-free DNA (dd-cfDNA) in the total cell-free DNA present in kidney transplant recipients.(1),(2) AlloSure Relative Change Value (RCV) represents the percentage change from previous AlloSure Result.(4),(5) When interpreting AlloSure Result: >=1.0% dd-cfDNA is associated with a higher probability of active rejection compared to scores less than 1.0%.(2),(3) 0.21% dd-cfDNA is the median observed in a reference population of stable recipients.(4) When interpreting AlloSure RCV:* >61% increase in AlloSure Result from prior result exceeds the biological variability observed in the reference population.(4) >=149% increase in AlloSure Result from prior result may indicate a high likelihood of allograft injury.(5) NR - No Result, US - Unacceptable Sample, N/A - RCV is not calculated due to AlloSure Result below 0.20%. *The RCV threshold for Simultaneous Pancreas-Kidney (SPK) has not been established. Clinical validity of the AlloSure test was established in kidney transplant recipients who were at least 14 days post-transplant. AlloSure should be interpreted in the context of clinical findings and relevant patient history. For more information about AlloSure, please visit [email or web address]. Specimens from kidney retransplant recipients in whom the prior kidney allograft(s) remain in situ and from SPK recipients(6),(7) are acceptable for testing. AlloSure is not intended for use in kidney transplant recipients who are , recipients of a transplant from a monozygotic twin, recipients of allogenic bone marrow transplant, or the recipients of multiple transplanted organs other than simultaneous pancreas-kidney transplant. Transfusion of blood components containing white blood cells in the 30 days prior to blood draw may lead to aberrant result. Renal biopsies performed in the 24 hours prior to AlloSure specimen collection may elevate dd-cfDNA. (1)Jean et al., J Mol Diagn 2016; (2)James et al., J Am Soc Nephrol 2017; (3)Puliyanda et al., Pediatric Transplantation 2020; (4)Alice et al., J Appl Lab Med 2017; (5)Bu et al., Kidney International 2020;(6) Damien et al.,Transplantation Direct 2021; (7)Noah et al., Transplantation Direct 2022 The AlloSure donor-derived cell-free DNA test was developed and its performance characteristics were determined by the [facility]. The test has not been cleared or approved by the U.S. Food and Drug Administration, nor is it currently required to be. The laboratory is certified under the Clinical Laboratory Improvement Amendments of 1988 (CLIA '88) and accredited by the [employer] (CAP) as qualified to perform high complexity clinical laboratory testing. The contents of this report are confidential and intended solely for the use of authorized personnel. AlloSure testing performed at [facility]. [address] [place] [address] (CLIA No: [id number], CAP No: [id number]) Internet Marketing Intern: Neil Payne M.D. LAB RELCHANGEVALUEKDNY RELATIVE CHANGE VALUE - KIDNEY N/A LAB 66944-4([facility]) Unique identifier <None Specified> LAB 20499-2([facility]) Date transplant 10/15/2024 LAB 97528-2([facility]) Months^post transplant 0y 2m 0d LAB 16339-3([facility]) Relationship of subject to patient Unrelated LAB 38230-6([facility]) Annotation comment <None Specified> LAB CARDXORDID CAREDX_ORDER_ ID [id number] LAB [facility]_ORDER_ ID [id number] LAB CAREDXWPORDERID WP_ORDER_ID <None Specified> Performed By: #### 53901-6 # ### [facility] ([id number]) [address] [place], [place] [address] HLA TRANSPLANT ANTIBODY PANEL Collected : 12/15/2024 11:15 AM Status: F Source: [facility] Order Comment: Test performe d at: [facility] Histocompatibility and Immunogenetics Laboratory [facility], 6th Floor [id number] [place] [address] TYPE CODE TESTS RESULT OUT OF RANGE REFERENCE UNITS LAB 42587-7([facility]) HLA-A+B+C Ab LAB 19961-5([facility]) HLA-DP+DQ+DR Ab LAB [facility] HLA RESULTS See Attached Performed By: #### HLANTI ## ## ANTHONY Dunbar ([id number]) HLA LAB ([facility]) [address] [place] [address] GLUCOSE Collected: 8:11 AM Status: F Source: [facility] TYPE CODE TESTS RESULT OUT OF RANGE REFERENCE UNITS LAB 2341-6([facility]) Glucose 414 High 74-99 mg/dL Performed By: #### [id number] ## ## JASON Morales ([id number]) [facility] ([facility]) [address] [place] [address] COMPLETE BLOOD COUNT PANEL Collected: 12/15/2024 8:05 AM Status: F [facility] HOSPITAL TYPE CODE TESTS RESULT OUT OF RANGE REFERENCE UNITS LAB 6690-2(LOINC) Leukocytes 4.2 Low 4.4-11.3 x10*3/ uL LAB 45983-2(LOINC) Erythrocytes.nuc l eated/100 leukocytes 0.0 0.0-0.0 /100 WBCs LAB 789-8(LOINC) Erythrocytes 2.80 Low 4.50-5.90 x10* 6/uL LAB 718-7(LOINC) Hemoglobin 7.2 Low 13.5-17.5 g/dL LAB 4544-3(LOINC) Hematocrit 22.9 Low 41.0-52.0 % LAB 787-2(LOINC) Erythrocyte mean corpuscular volume 82 80-100 fL LAB 785-6(LOINC) Erythrocyte mean corpuscular hemoglobin 25.7 Low 26.0-34.0 pg LAB 786-4(LOINC) Erythrocyte mean corpuscular hemoglobin concentration 31.4 Low 32.0-36.0 g/dL LAB 788-0(LOINC) Erythrocyte distribution width 18.5 High 11.5-14.5 % LAB 777-3(LOINC) Platelets 72 Low 150-450 x10*3/uL Performed By: #### 39829-3 # ### JASON Morales ([id number]) [facility] ([facility]) [address] [place] [address] MAGNESIUM Collected: 8:05 AM Status: F Source: [facility] TYPE CODE TESTS RESULT OUT OF RANGE REFERENCE UNITS LAB 30005-2(LOINC) Magnesium 1.84 1.60-2.40 mg/dL Performed By: #### 61652-9 # ### JASON Morales ([id number]) [facility] ([facility]) [address] [place] [address] RENAL FUNCTION 2000 PANEL Collected: 8:05 AM Status: F Source: [facility] TYPE CODE TESTS RESULT OUT OF RANGE REFERENCE UNITS LAB 2345-7(LOINC) Glucose 469 High Alert 74-99 mg/dL LAB 2951-2(LOINC) Sodium 131 Low 136-145 mmol/L LAB 2823-3(LOINC) Potassium 5.2 3.5-5.3 mmol/L Result Comment: MILD HEMOLYS IS DETECTED. The result may be falsely elevated due to hemolysis or other interferents. Clinical correlation is recommended. Repeat testing may be considered. LAB 2075-0(LOINC) Chloride 100 98-107 mmol/L LAB 9(LOINC) Carbon dioxide 22 21-32 mmo l/L LAB 37401-9(LOINC) Anion gap 14 10-20 mmol/L LAB 3094-0(LOINC) Urea nitrogen 70 High 6-23 mg/d L LAB 2160-0(LOINC) Creatinine 2.98 High 0.50-1.30 mg/dL LAB 41803-1(LOINC) Glomerular filtration rate/1.73 sq M.predicted 24 Low >60 mL/min/1 .73m*2 Result Comment: Calculations of estimated GFR are performed using the 2020 CKD- EPI Study Refit equation without the race variable for the IDMS-Traceable creatinine methods. https://jasn.asnjournals.org/content/early//ASN.7926524967 LAB 92866-6(LOINC) Calcium 8.4 Low 8.6-10.6 mg/dL LAB 2777-1(LOINC) Phosphate 5.1 High 2.5-4.9 mg/dL Result Comment: MILD HEMOLYS IS DETECTED. The result may be falsely elevated due to hemolysis or other interferents. Clinical correlation is recommended. Repeat testing may be considered. LAB 12123-9(LOINC) Albumin 3.2 Low 3.4-5.0 g/dL Performed By: #### 44256-7 # ### JASON Morales ([id number]) [facility] ([facility]) [address] [place] [address] BLOOD TYPE Collected: 12/14/2024 7:45 PM Status: F Source: [facility] TYPE CODE TESTS RESULT OUT OF RANGE REFERENCE UNITS LAB 883-9(LOINC) ABO group B LAB 1305-2(LOINC) D Ag POS LAB 890-4(INC) Blood group antibody screen NEG Performed By: #### 58147-4 # ### JASON Morales ([id number]) [facility] ([facility]) [address] [place] [address] US KIDNEY TRANSPLANT Observed: 7:09 PM Status: F Source: [facility] Interpreted By: Justa Choe and Berenice Nguyen STUDY: US KIDNEY TRANSPLANT; 12/14/2024 9:21 pm INDICATION: Signs/Symptoms:Transplanted Kidney evaluation.. COMPARISON: US RENAL TRANSPLANT BIOPSY 12/07/2024, US KIDNEY TRANSPLANT 11/25/2024 ACCESSION NUMBER(S): [id number] ORDERING CLINICIAN: LAMBERT BROTHERS TECHNIQUE: Grayscale, color, and spectral Doppler of the kidney transplant were performed. This examination was interpreted at [facility]. FINDINGS: TRANSPLANT KIDNEY: Transplant kidney location: Right iliac fossa the transplant kidney [id number] cm in craniocaudal dimension. There is no hydronephrosis and hydroureter. No perinephric fluid collections are seen. 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 DOPPLER EVALUATION: RESISTIVE INDICES: The resistive indices were as follows: 0.7 in the superior pole, 0.7 in the midpole, and 0.7 in the inferior pole. Wave forms are normal. TRANSPLANT RENAL ARTERY AND VEIN: The main renal artery velocity is 71.2 cm/s, 167.4 cm/s. The arterial anastomosis velocity is 150.6 cm/s, 176.7 cm/s. The adjacent iliac artery velocity is 190.9 cm/s, 58.4 cm/s Transplant renal vein is patent. The peak velocity in the main renal vein is 28.8 cm/s, 40.0 cm/s, in the adjacent iliac vein 37.1 cm/s, 47.6 cm/s. The venous anastomosis velocity is 35.8 cm/s. IMPRESSION: Unremarkable ultrasound and Doppler evaluation of the transplant kidney as detailed above. Resistive indices appear within normal limits. No perinephric fluid collections. I personally reviewed the images/study and I agree with the findings as stated by Patrikc Ng MD. This study was interpreted at [facility], [place], [place]. MACRO: None Signed by: Moreno Choe 12/15/2024 5:52 AM Dictation workstation: [id number] COMPLETE BLOOD COUNT PANEL Collected: 12/14/2024 6:44 AM Status: F Source: [facility] Order Comment: Before Hemodi alysis TYPE CODE TESTS RESULT OUT OF RANGE REFERENCE UNITS LAB 6690-2(LOINC) Leukocytes 8.2 4.4-11.3 x10*3/ uL LAB 30033-3(LOINC) Erythrocytes.nuc leated/100 leukocytes 0.0 0.0-0.0 /100 WBCs LAB 789-8(LOINC) Erythrocytes 2.99 Low 4.50-5.90 x10* 6/uL LAB 718-7(LOINC) Hemoglobin 7.5 Low 13.5-17.5 g/dL LAB 4544-3(LOINC) Hematocrit 24.6 Low 41.0-52.0 % LAB 787-2(LOINC) Erythrocyte mean corpuscular volume 82 80-100 fL LAB 785-6(LOINC) Erythrocyte mean corpuscular hemoglobin 25.1 Low 26.0-34.0 pg LAB 786-4(LOINC) Erythrocyte mean corpuscular hemoglobin concentration 30.5 Low 32.0-36.0 g/dL LAB 788-0(LOINC) Erythrocyte distribution width 19.5 High 11.5-14.5 % LAB 777-3(LOINC) Platelets 113 Low 150-450 x10*3/uL Performed By: #### 35769-4 # ### JASON Morales ([id number]) [facility] ([facility]) [address] [place] [address] MAGNESIUM Collected: 6:44 AM Status: F Source: [facility] Order Comment: Before Hemodi alysis TYPE CODE TESTS RESULT OUT OF RANGE REFERENCE UNITS LAB 36102-8(LOINC) Magnesium 2.08 1.60-2.40 mg/dL Performed By: #### 52712-7 # ### JASON Morales ([id number]) [facility] ([facility]) [address] [place], [place] [id number] RENAL FUNCTION 2000 PANEL Collected: 6:44 AM Status: F Source: [facility] Order Comment: Before Hemodi alysis TYPE CODE TESTS RESULT OUT OF RANGE REFERENCE UNITS LAB 2345-7(LOINC) Glucose 352 High 74-99 mg/dL LAB 2951-2(LOINC) Sodium 135 Low 136-145 mmol/L LAB 2823-3(LOINC) Potassium 4.8 3.5-5.3 mmol/L LAB 2075-0(LOINC) Chloride 110 High 98-107 mmol/L LAB 8-9(LOINC) Carbon dioxide 13 Low 21-32 mmo l/L LAB 46495-5(LOINC) Anion gap 17 10-20 mmol/L LAB 3094-0(LOINC) Urea nitrogen 120 High Alert 6-23 mg/dL Result Comment: Previous res ult verified on 12/13/2024 1129 on specimen/case [id number] called with component UREA for procedure Renal Function Panel with value 108 mg/dL. LAB 2160-0(LOINC) Creatinine 4.68 High 0.50-1.30 mg/dL LAB 29108-1(LOINC) Glomerular filtration rate/1.73 sq M.predicted 14 Low >60 mL/min/1 .73m*2 Result Comment: Calculations of estimated GFR are performed using the 2020 CKD- EPI Study Refit equation without the race variable for the IDMS-Traceable creatinine methods. https://jasn.asnjournals.org/content/early/ASN.5719210327 LAB 30164-1(LOINC) Calcium 9.3 8.6-10.6 mg/dL LAB 2777-1(LOINC) Phosphate 5.9 High 2.5-4.9 mg/dL LAB 30313-4(LOINC) Albumin 3.5 3.4-5.0 g/dL Performed By: #### 40755-6 # ### JASON Morales ([id number]) [facility] ([facility]) [address] [place] [address] TACROLIMUS Collected: 5 6:44 AM Status: F Source: [facility] Order Comment: Before Hemodi alysis NOTE: Result was obtained using a chemiluminescent microparticle immunoassay (CMIA) on the [employer] Hardware Analyst i system. Optimal therapeutic ranges for immunosuppressant drugs depend upon an individual patient's current clinical state, type of organ transplant, time post-transplant, co-administration of other immunosuppressants, and other clinical factors. The results of this test should be correlated with additional clinical and laboratory data before changes in treatment regimens are made. TYPE CODE TESTS RESULT OUT OF RANGE REFERENCE UNITS LAB 82097-8(LOINC) Tacrolimus 4.8 <=15.0 ng/mL Performed By: #### 84092-6 # ### JASON Morales ([id number]) [facility] ([facility]) [address] [place] [address] TACROLIMUS Collected: 10:49 AM Status: F Source: [facility] Order Comment: NOTE: Result was obtained using a chemiluminescent microparticle immunoassay (CMIA) on the [employer] Hardware Analyst i system. Optimal therapeutic ranges for immunosuppressant drugs depend upon an individual patient's current clinical state, type of organ transplant, time post-transplant, co-administration of other immunosuppressants, and other clinical factors. The results of this test should be correlated with additional clinical and laboratory data before changes in treatment regimens are made. TYPE CODE TESTS RESULT OUT OF RANGE REFERENCE UNITS LAB 15022-5(LOINC) Tacrolimus 4.8 <=15.0 ng/mL Performed By: #### 18146-9 # ### JASON Morales ([id number]) [facility] ([facility]) [address] [place], [place] [id number] COMPLETE BLOOD COUNT PANEL Collected: 12/13/2024 10:4 7 AM Status: F Source: [facility] TYPE CODE TESTS RESULT OUT OF RANGE REFERENCE UNITS LAB 6690-2(LOINC) Leukocytes 7.1 4.4-11.3 x10*3/ uL LAB 20187-6(LOINC) Erythrocytes.nuc l eated/100 leukocytes 0.0 0.0-0.0 /100 WBCs LAB 789-8(LOINC) Erythrocytes 3.06 Low 4.50-5.90 x10* 6/uL LAB 718-7(LOINC) Hemoglobin 7.7 Low 13.5-17.5 g/dL LAB 4544-3(LOINC) Hematocrit 25.3 Low 41.0-52.0 % LAB 787-2(LOINC) Erythrocyte mean corpuscular volume 83 80-100 fL LAB 785-6(LOINC) Erythrocyte mean corpuscular hemoglobin 25.2 Low 26.0-34.0 pg LAB 786-4(LOINC) Erythrocyte mean corpuscular hemoglobin concentration 30.4 Low 32.0-36.0 g/dL LAB 788-0(LOINC) Erythrocyte distribution width 18.9 High 11.5-14.5 % LAB 777-3(LOINC) Platelets 102 Low 150-450 x10*3/uL Performed By: #### 34396-3 # ### TON MORAN ([id number]) [facility] ([facility]) [address] [place] [address] MAGNESIUM Collected: 10:47 AM Status: F Source: [facility] TYPE CODE TESTS RESULT OUT OF RANGE REFERENCE UNITS LAB 62186-3(INC) Magnesium 2.04 1.60-2.40 mg/dL Performed By: #### 87616-1 # ### TON MORAN ([id number]) [facility] ([facility]) [address] [place] [address] RENAL FUNCTION 2000 PANEL Collected: 10:47 AM Status: F Source: [facility] TYPE CODE TESTS RESULT OUT OF RANGE REFERENCE UNITS LAB 2345-7(LOINC) Glucose 200 High 74-99 mg/dL LAB 2951-2(LOINC) Sodium 136 136-145 mmol/L LAB 2823-3(LOINC) Potassium 4.9 3.5-5.3 mmol/L LAB 2075-0(LOINC) Chloride 110 High 98-107 mmol/L LAB 202-9(LOINC) Carbon dioxide 17 Low 21-32 mmo l/L LAB 04849-9(LOINC) Anion gap 14 10-20 mmol/L LAB 3094-0(LOINC) Urea nitrogen 108 High Alert 6-23 mg/dL LAB 2160-0(LOINC) Creatinine 4.63 High 0.50-1.30 mg/dL LAB 28798-1(LOINC) Glomerular filtration rate/1.73 sq M.predicted 14 Low >60 mL/min/1 .73m*2 Result Comment: Calculations of estimated GFR are performed using the 2020 CKD- EPI Study Refit equation without the race variable for the IDMS-Traceable creatinine methods. https://jasn.asnjournals.org/content///ASN.5688435968 LAB 96062-2(LOINC) Calcium 9.0 8.6-10.3 mg/dL LAB 2777-1(LOINC) Phosphate 6.2 High 2.5-4.9 mg/dL LAB 72650-5(LOINC) Albumin 3.5 3.4-5.0 g/dL Performed By: #### 79073-3 # ### TON MORAN ([id number]) [facility] ([facility]) [address] [place] [address] GLUCOSE Collected: 5 5:06 PM Status: F Source: [facility] TYPE CODE TESTS RESULT OUT OF RANGE REFERENCE UNITS LAB 2341-6(LOINC) Glucose 353 High 74-99 mg/dL Performed By: #### 2341-6 ## ## JASON Morales ([id number]) [facility] ([facility]) [id number] [place] [address] GAS PANEL Collected: 5 12:52 PM Status: F Source: [facility] TYPE CODE TESTS RESULT OUT OF RANGE REFERENCE UNITS LAB 2746-6(LOINC) pH 7.35 7.33-7.43 pH LAB 2020-4(LOINC) Carbon dioxide 41 41-51 mm Hg LAB 2705-2(LOINC) Oxygen 19 Low 35-45 mm Hg LAB 2711-0(LOINC) Oxygen saturation 14 Low 45-75 % LAB 2716-9(LOINC) Oxyhemoglobin/H emoglobin.total 13.5 Low 45.0-75.0 % LAB 71130-5(LOINC) Hematocrit 26.0 Low 41.0-52.0 % LAB 73226-9(LOINC) Sodium 136 136-145 mmol/L LAB 47691-9(LOINC) Potassium 4.0 3.5-5.3 mmol/L LAB 23568-8(LOINC) Chloride 106 98-107 mmol/L LAB 10734-2(LOINC) Calcium.ionized 1.25 1.10-1.33 mmol/L LAB 33492-3(LOINC) Glucose 189 High 74-99 mg/dL LAB 2519-7(LOINC) Lactate 0.5 0.4-2.0 mmol/L LAB 1927-3(LOINC) Base excess -2.8 Low -2.0-3.0 mmol/ L LAB 25023-0(LOINC) Bicarbonate 22.6 22.0-26.0 mmo l/L LAB 21185-2(INC) Hemoglobin 8.6 Low 13.5-17.5 g/dL LAB 39545-6([facility]) Anion gap 4 11.0 10.0-25.0 mmo l/L LAB 8310-5(INC) Body temperature 37.0 degrees Celsius Result Comment: NOTE: Patien t Results are Not Corrected for Temperature LAB 3150-0([facility]) Oxygen/Gas.tota l 21 % Performed By: #### 46003-3 # ### JASON Morales ([id number]) [facility] ([facility]) [address] [place] [address] COMPLETE BLOOD COUNT PANEL Collected: 12/09/2024 12:0 6 PM Status: F Source: [facility] TYPE CODE TESTS RESULT OUT OF RANGE REFERENCE UNITS LAB 6690-2([facility]) Leukocytes 6.3 4.4-11.3 x10*3/ uL LAB 07472-2([facility]) Erythrocytes.nuc l eated/100 leukocytes 0.0 0.0-0.0 /100 WBCs LAB 789-8([facility]) Erythrocytes 3.33 Low 4.50-5.90 x10* 6/uL LAB 718-7(LOINC) Hemoglobin 8.4 Low 13.5-17.5 g/dL LAB 4544-3(LOINC) Hematocrit 26.7 Low 41.0-52.0 % LAB 787-2(LOINC) Erythrocyte mean corpuscular volume 80 80-100 fL LAB 785-6(LOINC) Erythrocyte mean corpuscular hemoglobin 25.2 Low 26.0-34.0 pg LAB 786-4(LOINC) Erythrocyte mean corpuscular hemoglobin concentration 31.5 Low 32.0-36.0 g/dL LAB 788-0(LOINC) Erythrocyte distribution width 17.7 High 11.5-14.5 % LAB 777-3(LOINC) Platelets 101 Low 150-450 x10*3/uL Performed By: #### 41875-0 # ### JASON Morales ([id number]) [facility] ([facility]) [id number] [place] [address] MAGNESIUM Collected: 12:06 PM Status: F Source: [facility] TYPE CODE TESTS RESULT OUT OF RANGE REFERENCE UNITS LAB 88706-0([facility]) Magnesium 1.68 1.60-2.40 mg/dL Performed By: #### 42632-3 # ### JASON Morales ([id number]) [facility] ([facility]) [id number] [place] [address] RENAL FUNCTION 2000 PANEL Collected: 12:06 PM Status: F Source: [facility] TYPE CODE TESTS RESULT OUT OF RANGE REFERENCE UNITS LAB 2345-7(LOINC) Glucose 178 High 74-99 mg/dL LAB 2951-2(LOINC) Sodium 137 136-145 mmol/L LAB 2823-3(LOINC) Potassium 4.2 3.5-5.3 mmol/L LAB 2075-0(LOINC) Chloride 107 98-107 mmol/L LAB 8-9(LOINC) Carbon dioxide 20 Low 21-32 mmo l/L LAB 94680-0(LOINC) Anion gap 14 10-20 mmol/L LAB 3094-0(LOINC) Urea nitrogen 64 High 6-23 mg/d L LAB 2160-0(LOINC) Creatinine 2.87 High 0.50-1.30 mg/dL LAB 07125-1(LOINC) Glomerular filtration rate/1.73 sq M.predicted 25 Low >60 mL/min/1 .73m*2 Result Comment: Calculations of estimated GFR are performed using the 2020 CKD- EPI Study Refit equation without the race variable for the IDMS-Traceable creatinine methods. https://jasn.asnjournals.org/content//ASN.6944201381 LAB 57440-2(LOINC) Calcium 8.7 8.6-10.6 mg/dL LAB 2777-1(LOINC) Phosphate 4.5 2.5-4.9 mg/dL LAB 54878-2(LOINC) Albumin 3.4 3.4-5.0 g/dL Performed By: #### 89459-0 # ### JASON Morales ([id number]) [facility] ([facility]) [address] [place], [place] [id number] GLUCOSE Collected: 5 12:01 PM Status: F Source: [facility] TYPE CODE TESTS RESULT OUT OF RANGE REFERENCE UNITS LAB 2341-6([facility]) Glucose 174 High 74-99 mg/dL Performed By: #### 2341-6 ## ## JASON Morales ([id number]) [facility] ([facility]) [address] [place] [address] GLUCOSE Collected: 5 7:50 AM Status: F Source: [facility] TYPE CODE TESTS RESULT OUT OF RANGE REFERENCE UNITS LAB 2341-6([facility]) Glucose 163 High 74-99 mg/dL Performed By: #### 2341-6 ## ## JASON Morales ([id number]) [facility] ([facility]) [address] [place] [address] CALCIUM.IONIZED Collected: 5 5:23 AM Status: F Source: [facility] TYPE CODE TESTS RESULT OUT OF RANGE REFERENCE UNITS LAB 1993-3([facility]) Calcium.ion ized 1.24 1.1-1.33 mmol/L Result Comment: The performa nce characteristics of ionized calcium tested in heparinized plasma or serum have been validated by the individual laboratory site where testing is performed. Testing on heparinized plasma or serum is not approved by the FDA; however, such approval is not necessary. Performed By: #### 1994-3 ## ## JASON Morales ([id number]) [facility] ([facility]) [address] [place] [address] TACROLIMUS Collected: 5 5:23 AM Status: F Source: [facility] Order Comment: NOTE: Result was obtained using a chemiluminescent microparticle immunoassay (CMIA) on the [employer] Hardware Analyst i system. Optimal therapeutic ranges for immunosuppressant drugs depend upon an individual patient's current clinical state, type of organ transplant, time post-transplant, co-administration of other immunosuppressants, and other clinical factors. The results of this test should be correlated with additional clinical and laboratory data before changes in treatment regimens are made. TYPE CODE TESTS RESULT OUT OF RANGE REFERENCE UNITS LAB 89221-3(LOINC) Tacrolimus 2.4 <=15.0 ng/mL Performed By: #### 96441-6 # ### JASON Morales ([id number]) [facility] ([facility]) [address] [place] [address] GLUCOSE Collected: 5 3:39 AM Status: F Source: [facility] TYPE CODE TESTS RESULT OUT OF RANGE REFERENCE UNITS LAB 2341-6(LOINC) Glucose 140 High 74-99 mg/dL Performed By: #### 2341-6 ## ## JASON Morales ([id number]) [facility] ([facility]) [address] [place] [address] GLUCOSE Collected: 5 11:27 PM Status: F Source: [facility] TYPE CODE TESTS RESULT OUT OF RANGE REFERENCE UNITS LAB 2341-6(LOINC) Glucose 145 High 74-99 mg/dL Performed By: #### 2341-6 ## ## JASON CLARKMOTZGREG L ([id number]) [facility] ([facility]) [address] [place] [address] GLUCOSE Collected: 5 7:50 PM Status: F Source: [facility] TYPE CODE TESTS RESULT OUT OF RANGE REFERENCE UNITS LAB 2341-6(LOINC) Glucose 245 High 74-99 mg/dL Performed By: #### 2341-6 ## ## JASON CLARKMOTZER L ([id number]) [facility] ([facility]) [address] [place] [address] GLUCOSE Collected: 5 4:06 PM Status: F Source: [facility] TYPE CODE TESTS RESULT OUT OF RANGE REFERENCE UNITS LAB 2341-6(LOINC) Glucose 120 High 74-99 mg/dL Performed By: #### 2341-6 ## ## JASON Morales ([id number]) [facility] ([facility]) [address] [place] [address] GLUCOSE Collected: 11:35 AM Status: F Source: [facility] TYPE CODE TESTS RESULT OUT OF RANGE REFERENCE UNITS LAB 2341-6(LOINC) Glucose 255 High 74-99 mg/dL Performed By: #### 2341-6 ## ## JASON Morales ([id number]) [facility] ([facility]) [address] [place] [address] GLUCOSE Collected: 8:13 AM Status: F Source: [facility] TYPE CODE TESTS RESULT OUT OF RANGE REFERENCE UNITS LAB 2341-6([facility]) Glucose 130 High 74-99 mg/dL Performed By: #### 2341-6 ## ## JASON Morales ([id number]) [facility] ([facility]) [address] [place], [place] [id number] COMPLETE BLOOD COUNT PANEL Collected: 12/08/2024 8:00 AM Status: F Source: [facility] TYPE CODE TESTS RESULT OUT OF RANGE REFERENCE UNITS LAB 6690-2(LOINC) Leukocytes 4.6 4.4-11.3 x10*3/ uL LAB 30130-3(LOINC) Erythrocytes.nuc l eated/100 leukocytes 0.0 0.0-0.0 /100 WBCs LAB 789-8(LOINC) Erythrocytes 3.06 Low 4.50-5.90 x10* 6/uL LAB 718-7(LOINC) Hemoglobin 7.9 Low 13.5-17.5 g/dL LAB 4544-3(LOINC) Hematocrit 24.2 Low 41.0-52.0 % LAB 787-2(LOINC) Erythrocyte mean corpuscular volume 79 Low 80-100 fL LAB 785-6(LOINC) Erythrocyte mean corpuscular hemoglobin 25.8 Low 26.0-34.0 pg LAB 786-4(LOINC) Erythrocyte mean corpuscular hemoglobin concentration 32.6 32.0-36.0 g/dL LAB 788-0(LOINC) Erythrocyte distribution width 17.9 High 11.5-14.5 % LAB 777-3(LOINC) Platelets 83 Low 150-450 x10*3/uL Performed By: #### 62938-5 # ### JASON Morales ([id number]) [facility] ([facility]) [id number] [place] [address] RENAL FUNCTION 2000 PANEL Collected: 8:00 AM Status: F Source: [facility] TYPE CODE TESTS RESULT OUT OF RANGE REFERENCE UNITS LAB 2345-7(LOINC) Glucose 115 High 74-99 mg/dL LAB 2951-2(LOINC) Sodium 137 136-145 mmol/L LAB 2823-3(LOINC) Potassium 4.0 3.5-5.3 mmol/L LAB 2075-0(LOINC) Chloride 105 98-107 mmol/L LAB 2028-9(LOINC) Carbon dioxide 24 21-32 mmo l/L LAB 32073-2(LOINC) Anion gap 12 10-20 mmol/L LAB 3094-0(LOINC) Urea nitrogen 56 High 6-23 mg/d L LAB 2160-0(LOINC) Creatinine 3.11 High 0.50-1.30 mg/dL LAB 48289-2(LOINC) Glomerular filtration rate/1.73 sq M.predicted 23 Low >60 mL/min/1 .73m*2 Result Comment: Calculations of estimated GFR are performed using the 2020 CKD- EPI Study Refit equation without the race variable for the IDMS-Traceable creatinine methods. https://jasn.asnjournals.org/content//ASN.4227687881 LAB 93453-2(LOINC) Calcium 7.7 Low 8.6-10.6 mg/dL LAB 2777-1(LOINC) Phosphate 3.8 2.5-4.9 mg/dL LAB 55100-5(LOINC) Albumin 3.3 Low 3.4-5.0 g/dL Performed By: #### 35681-7 # ### JASON Morales ([id number]) [facility] ([facility]) [address] [place] [address] TACROLIMUS Collected: 5:49 AM Status: F Source: [facility] Order Comment: NOTE: Result was obtained using a chemiluminescent microparticle immunoassay (CMIA) on the Computer Systems Hardware Analyst i system. Optimal therapeutic ranges for immunosuppressant drugs depend upon an individual patient's current clinical state, type of organ transplant, time post-transplant, co-administration of other immunosuppressants, and other clinical factors. The results of this test should be correlated with additional clinical and laboratory data before changes in treatment regimens are made. TYPE CODE TESTS RESULT OUT OF RANGE REFERENCE UNITS LAB 72996-2(LOINC) Tacrolimus 2.1 <=15.0 ng/mL Performed By: #### 22049-2 # ### JASON JENNINGS L ([id number]) [facility] ([facility]) [address] [place] [address] GLUCOSE Collected: 5 4:06 AM Status: F Source: [facility] TYPE CODE TESTS RESULT OUT OF RANGE REFERENCE UNITS LAB 2341-6(LOINC) Glucose 121 High 74-99 mg/dL Performed By: #### 2341-6 ## ## JASON SCHMOTZER L ([id number]) [facility] ([facility]) [address] [place] [address]39[address] GLUCOSE Collected: 5 1:03 AM Status: F Source: [facility] TYPE CODE TESTS RESULT OUT OF RANGE REFERENCE UNITS LAB 2341-6(LOINC) Glucose 150 High 74-99 mg/dL Performed By: #### 2341-6 ## ## JASON SCHMOTZER L ([id number]) [facility] ([facility]) [address] [place] [address]092 GLUCOSE Collected: 5 8:37 PM Status: F Source: [facility] TYPE CODE TESTS RESULT OUT OF RANGE REFERENCE UNITS LAB 2341-6(LOINC) Glucose 235 High 74-99 mg/dL Performed By: #### 2341-6 ## ## JASON SCHMOTZER L ([id number]) [facility] ([facility]) [address] [place] [address] GLUCOSE Collected: 5 3:14 PM Status: F Source: [facility] TYPE CODE TESTS RESULT OUT OF RANGE REFERENCE UNITS LAB 2341-6(LOINC) Glucose 218 High 74-99 mg/dL Performed By: #### 2341-6 ## ## JASON POPEZAY Morales ([id number]) [facility] ([facility]) [address] [place] [id number] SURGICAL PATHOLOGY STUDY Observed: 12/07 1:27 PM Status: F Source: [facility] Pathology report.total SEE COMMENT Surgical Pathology Case: [id number] Authorizing Provider: Babak Mike MD Collected: 12/07/2024 1327 Ordering Location: [facility] Received: 12/07/2024 [address] [place] [address] Pathologist: Stacy Garrido MD Specimen: KIDNEY TRANSPLANT BIOPSY RIGHT, RIGHT Path report.final diagnosis SEE COMMENT KIDNEY ALLOGRAFT, RIGHT ILIAC FOSSA, PERCUTANEOUS CORE BIOPSY: -- DIFFUSE ACUTE TUBULAR INJURY -- MILD INTERSTITIAL INFLAMMATION AND MILD TUBULITIS -- MILD ARTERIOLAR HYALINOSIS AND MODERATE ARTERIOSCLEROSIS -- LOW GRADE MESANGIAL IgA DEPOSITS (SEE COMMENT) Specimen adequacy - Adequate and more than 2 arteries for light microscopy. [place] Working Classification - t1, i0; v0; cg0; ci1; ct1; ti0; i-IFTA0; cv2; ah1; g0; ptc0; C4d0 (Luxembourger J transplant. The [employer] 2019 Kidney Meeting Report. 2020; 20: 2318) C4d negative (No staining of interstitial capillaries by immunofluorescence with appropriate controls). at 1407 EDT Laboratory comment By the signature on this report, the individual or group listed as making the Final Interpretation/Diagnosis certifies that they have reviewed this case. Path report.comments SEE COMMENT The biopsy consists of 18 glomeruli by light microscopy, of which 4 are globally sclerosed and 1 is secondarily segmentally sclerosed, with approximately 15% interstitial fibrosis. There are vascular changes including mild arteriolar hyalinosis and moderate arteriosclerosis. There is diffuse acute tubular injury. There is mild interstitial inflammation involving less than 5% of non-scarred cortex with mild tubulitis. There is no endothelialitis. Thus, the findings do not meet criteria for acute T cell- mediated rejection. The findings are also improved compared with prior biopsy. There is no significant microvascular inflammation and C4d is negative in interstitial capillaries by immunofluorescence. Thus, there is no evidence of acute antibody-mediated rejection. There are no viral cytopathic changes and an immunostain for SV40 shows no diagnostic staining. Immunofluorescence again shows IgA mesangial deposits with focal segmental mesangial hypercellularity. There are no active lesions in that there is no endocapillary proliferation, crescent formation or necrosis. These findings are similar to prior biopsy and may represent donor-derived injury, though early recurrence of primary disease or de rosie disease cannot entirely be excluded. Path report.relevant Hx SEE COMMENT transplant date: 10/15/2024 54 y.o. male with past medical history [...] steroid pulse. Then discharged on outpt HD. Scr 3.1 mg/dL, serologies negative for CMV, BK and EBV. Path report.gross observation SEE COMMENT Received fresh, labeled with the patient's name and hospital number, are 2 cylindrical segments of solorzano soft tissue measuring 1.6 cm, and 1.7 cm in length by < 0.1 cm in diameter. Numerous glomeruli are identified. A portion is frozen for direct immunofluorescence. A portion is submitted in glutaraldehyde for electron microscopy. The remainder of the specimen is submitted in 1 cassette. SBS Summary of Cassettes: Specimen Label Site A 1 light microscopy 3 Immunofluorescence Path report.microscopic observation SEE COMMENT LIGHT MICROSCOPY: Multiple sections of the biopsy are prepared, including 3 H&E, 3 PAS, 3 Lundberg' silver, and 1 Trichrome stained slides. The biopsy consists of 2 pieces of cortex, containing 18 glomeruli, 4 of which are globally sclerosed. There is glomerulomegaly and a mild increase in mesangial matrix and focal segmental mild increase in cellularity. The glomerular basement membranes are unremarkable without corrugation, spikes, holes or splitting. There are no adhesions, crescents, fibrin or necrosis in Bennett's spaces. There is one glomerulus with perihilar segmental sclerosis and periglomerular fibrosis, without hyalinosis, fibrin, necrosis, glomerulitis, or overt endocapillary proliferation of glomerular sylvie. There is approximately 15% interstitial fibrosis with proportional tubular atrophy. There is a mild interstitial lymphocytic infiltrate involving less than 5% of non-scarred areas. There are no interstitial neutrophils or eosinophils. There is mild tubulitis. There are no viral cytopathic changes and an immunostain for SV40 shows no diagnostic staining. There is diffuse acute tubular injury. There are occasional proteinaceous casts, and 2 calcium oxalate crystals. Arterioles show mild hyalinosis. Interlobular arteries show moderate intimal fibrosis. Large arteries are not sampled. There is mild, but not significant, peritubular capillaritis. There is no endothelialitis. IMMUNOFLUORESCENCE MICROSCOPY: Replicate frozen sections, containing 3 glomeruli, of which 1 is globally sclerosed, are stained with antisera for IgG, IgA, IgM, C3, C1q, kappa, lambda, fibrinogen, albumin, and C4d. On a scale of 0-3+, there is global granular mesangial staining for IgA (trace-1+), IgM (trace), and lambda (trace). Casts stain 3+ for IgA, and 2+ for kappa and lambda. There is 2+ arteriolar staining for C3, which also stains tubular basement membranes. The stainings for IgG and C1q are negative. There is no specific staining for fibrinogen. Albumin highlights renal architecture. C4d shows mesangial staining, but is negative in interstitial capillaries. There is no nuclear staining. The negative control for IF is negative. ELECTRON MICROSCOPY: In this clinical setting with the above mentioned histologic findings, electron microscopy is not performed. Tissue will be held in glutaraldehyde for 3 months, during which time EM may be performed if clinically indicated. Findings relayed to clinical team via email on 12/08/2024 at 3:46 PM. LAB AP ASR DISCLAIMER One or more of the reagents used to perform assays on this specimen MAY have contained components considered to be analyte specific reagents (ASR's). ASR's have not been cleared or approved by the U.S. Food and Drug Administration. These assays were developed and their performance characteristics determined by the Department of Pathology at [facility]. The FDA does not require this test to go through premarket FDA review. This test is used for clinical purposes. It should not be regarded as investigational or for research. This laboratory is certified under the Clinical Laboratory Improvement Amendments (CLIA) as qualified to perform high complexity clinical laboratory testing. The assays were performed with appropriate positive and negative controls which stained appropriately. GLUCOSE Collected: 12:05 PM Status: F Source: [facility] TYPE CODE TESTS RESULT OUT OF RANGE REFERENCE UNITS LAB 2341-6([facility]) Glucose 137 High 74-99 mg/dL Performed By: #### 2341-6 ## ## JASON Morales ([id number]) [facility] ([facility]) [address] [place] [address] RENAL TRANSPLANT BIOPSY Observed: 06/2024 10:40 AM Status: F Source: [facility] Interpreted By: Donna Garcia, and Cee Hilliard STUDY: US RENAL TRANSPLANT BIOPSY; 12/07/2024 1:26 pm INDICATION: Signs/Symptoms:Hx of delayed graft failure of transplanted kidney, recent biospy shows borderline rejection, new admission for rising K. COMPARISON: Renal ultrasound 11/25/2024 ACCESSION NUMBER(S): [id number] ORDERING CLINICIAN: MARIAA JARQUIN TECHNIQUE: INTERVENTIONALIST(S): MD Babak Jackson MD CONSENT: [...] findings as stated. Performed and dictated at [facility]. MACRO: None. Signed by: Apollo Garcia 12/07/2024 11:35 PM Dictation workstation: [id number] CLOSTRIDIOIDES DIFFICILE TOXIN A+B TCDA+TCDB GENES Observed: 12/07/2024 8:37 AM Status: F Source: [facility] Order Comment: This test is an FDA-cleared [...] performed more than once per 7 days. Clostridioides difficile tox in A+B tcdA+tcdB genes Not Detected Performed By: #### 70642-1 # ### JASON Morales ([id number]) [facility] ([facility]) [address] [place] [address] GASTROINTESTINAL PATHOGENS IDENTIFIED Observed: 12/07/2024 8:37 AM Status: F Source: [facility] Campylobacter coli+jejuni+up saliensis DNA Not DetectedSalmonella sp DNA Not DetectedShigella sp DNA Not DetectedVibrio cholerae DNA Not DetectedYersinia enterocolitica DNA Not DetectedEscherichia coli Stx1 toxin stx1 gene Not DetectedEscherichia coli Stx2 toxin stx2 gene Not DetectedNorovirus genogroup I AND II RNA Not DetectedRotavirus RNA Not Detected Performed By: #### 81219-2 # ### JASON Morales ([id number]) [facility] ([facility]) [address] [place] [address] GLUCOSE Collected: 8:16 AM Status: F Source: [facility] TYPE CODE TESTS RESULT OUT OF RANGE REFERENCE UNITS LAB 2341-6([facility]) Glucose 74 74-99 mg/dL Performed By: #### 2341-6 ## ## JASON Morales ([id number]) [facility] ([facility]) [address] [place] [address]87 COMPLETE BLOOD COUNT PANEL Collected: 12/07/2024 5:29 AM Status: F Source: [facility] TYPE CODE TESTS RESULT OUT OF RANGE REFERENCE UNITS LAB 6690-2(LOINC) Leukocytes 4.5 4.4-11.3 x10*3/ uL LAB 83411-2(LOINC) Erythrocytes.nuc l eated/100 leukocytes 0.0 0.0-0.0 /100 WBCs LAB 789-8(LOINC) Erythrocytes 2.78 Low 4.50-5.90 x10* 6/uL LAB 718-7(LOINC) Hemoglobin 6.8 Low 13.5-17.5 g/dL LAB 4544-3(LOINC) Hematocrit 21.7 Low 41.0-52.0 % LAB 787-2(LOINC) Erythrocyte mean corpuscular volume 78 Low 80-100 fL LAB 785-6(LOINC) Erythrocyte mean corpuscular hemoglobin 24.5 Low 26.0-34.0 pg LAB 786-4(LOINC) Erythrocyte mean corpuscular hemoglobin concentration 31.3 Low 32.0-36.0 g/dL LAB 788-0(LOINC) Erythrocyte distribution width 17.9 High 11.5-14.5 % LAB 777-3(LOINC) Platelets 91 Low 150-450 x10*3/uL Performed By: #### 52615-2 # ### JASON Morales ([id number]) [facility] ([facility]) [address] [place] [address] MAGNESIUM Collected: 5:29 AM Status: F Source: [facility] TYPE CODE TESTS RESULT OUT OF RANGE REFERENCE UNITS LAB 33471-5(LOINC) Magnesium 1.62 1.60-2.40 mg/dL Performed By: #### 01216-8 # ### JASON Morales ([id number]) [facility] ([facility]) [address] [place] [address] RENAL FUNCTION 2000 PANEL Collected: 5:29 AM Status: F Source: [facility] TYPE CODE TESTS RESULT OUT OF RANGE REFERENCE UNITS LAB 2345-7(LOINC) Glucose 95 74-99 mg/dL LAB 2951-2(LOINC) Sodium 141 136-145 mmol/L LAB 2823-3(LOINC) Potassium 3.1 Low 3.5-5.3 mmol/L LAB 2075-0(LOINC) Chloride 103 98-107 mmol/L LAB 8-9(LOINC) Carbon dioxide 28 21-32 mmo l/L LAB 98361-9(LOINC) Anion gap 13 10-20 mmol/L LAB 3094-0(LOINC) Urea nitrogen 48 High 6-23 mg/d L LAB 2160-0(LOINC) Creatinine 2.04 High 0.50-1.30 mg/dL LAB 49726-8(LOINC) Glomerular filtration rate/1.73 sq M.predicted 38 Low >60 mL/min/1 .73m*2 Result Comment: Calculations of estimated GFR are performed using the 2020 CKD- EPI Study Refit equation without the race variable for the IDMS-Traceable creatinine methods. https://jasn.asnjournals.org/content///ASN.7322942684 LAB 67968-3(LOINC) Calcium 8.3 Low 8.6-10.6 mg/dL LAB 2777-1(LOINC) Phosphate 3.3 2.5-4.9 mg/dL LAB 26554-5(LOINC) Albumin 3.3 Low 3.4-5.0 g/dL Performed By: #### 96879-7 # ### JASON Morales ([id number]) [facility] ([facility]) [address] [place] [address] FERRITIN Collected: 5:29 AM Status: F Source: [facility] TYPE CODE TESTS RESULT OUT OF RANGE REFERENCE UNITS LAB 2276-4(LOINC) Ferritin 3218 High 20-300 ng/mL Performed By: #### 2276-4 ## ## JASON Morales ([id number]) [facility] ([facility]) [address] [place], [place] [id number] IRON Collected: 12/07/2024 5:29 AM Status: F Source: [facility] TYPE CODE TESTS RESULT OUT OF RANGE REFERENCE UNITS LAB 2498-4(LOINC) Iron 167 High 35-150 ug/dL LAB 2501-5(LOINC) Iron binding capacity.unsatu rated <55 Low 110-370 ug/dL LAB 2500-7(LOINC) Iron binding capacity Result Comment: One or more of the analytes used in this calculation is outside of the analytical measurement range. LAB 2502-3(LOINC) Iron saturation Result Comment: One or more analytes used in this calculation is outside of the analytical measurement range. Calculation cannot be performed. Performed By: #### 03647-0 # ### JASON Morales ([id number]) [facility] ([facility]) [address] [place] [address] TACROLIMUS Collected: 5:29 AM Status: F Source: [facility] Order Comment: NOTE: Result was obtained using a chemiluminescent microparticle immunoassay (CMIA) on the Computer Systems Hardware Analyst i system. Optimal therapeutic ranges for immunosuppressant drugs depend upon an individual patient's current clinical state, type of organ transplant, time post-transplant, co-administration of other immunosuppressants, and other clinical factors. The results of this test should be correlated with additional clinical and laboratory data before changes in treatment regimens are made. TYPE CODE TESTS RESULT OUT OF RANGE REFERENCE UNITS LAB 72316-3(LOINC) Tacrolimus 4.6 <=15.0 ng/mL Performed By: #### 57866-4 # ### JASON Morales ([id number]) [facility] ([facility]) [address] [place], [place] [id number] CYTOMEGALOVIRUS DNA Collected: 12/07/2024 5:[address] atus: F Source: [facility] Order Comment: Reportable Ra nge: 35-10,000,000 IU/mL. The sophie CMV test is an in vitro nucleic acid amplification test for the quantitation of Cytomegalovirus (CMV) DNA in human EDTA plasma on the sophie [employer]Systems0/8800 Systems. The analytical quantification range of this [...] the test result will be reported as "<35 Detected" or ">10,000,000 Detected". The sophie CMV is intended for use [...] the Molecular Diagnostic Laboratory, Department of Pathology, [facility]. TYPE CODE TESTS RESULT OUT OF RANGE REFERENCE UNITS LAB CMVIL CYTOMEGALOVIRUS DNA, PCR LOG IU/ML Result Comment: Not calculat ed LAB CMVDNAR CMV DNA RESULT Not Detected No t Detected Performed By: #### 62030-0 # ### JASON Morales ([id number]) [facility] ([facility]) [address] [place], [place] [id number] BLOOD TYPE Collected: 12/07/2024 5:28 AM Status: F Source: [facility] TYPE CODE TESTS RESULT OUT OF RANGE REFERENCE UNITS LAB 883-9(LOINC) ABO group B LAB 1305-2(LOINC) D Ag POS LAB 890-4(LOINC) Blood group antibody screen NEG Performed By: #### 13081-7 # ### JASON Morales ([id number]) [facility] ([facility]) [address] [place] [address] GLUCOSE Collected: 4:13 AM Status: F Source: [facility] TYPE CODE TESTS RESULT OUT OF RANGE REFERENCE UNITS LAB 2341-6([facility]) Glucose 109 High 74-99 mg/dL Performed By: #### 2341-6 ## ## JASON Morales ([id number]) [facility] ([facility]) [address] [place], [place] [id number] URINALYSIS MICROSCOPIC PANEL Collected: 12/07/2024 12:28 AM Status: F Source: [facility] TYPE CODE TESTS RESULT OUT OF RANGE REFERENCE UNITS LAB 01169-0(LOINC) Leukocytes NONE 1-5, NONE /HPF LAB 56859-6(LOINC) Erythrocytes 6-10 Abnormal NO NE, 1-2, 3-5 /HPF LAB 10332-2(INC) Hyaline casts OCCASIONAL Abnormal NONE /LPF Performed By: #### 33989-5 # ### JASON Morales ([id number]) [facility] ([facility]) [address] [place], [place] [id number] URINALYSIS COMPLETE PANEL Collected: 12:28 AM Status: F Source: [facility] TYPE CODE TESTS RESULT OUT OF RANGE REFERENCE UNITS LAB 5778-6(LOINC) Color Colorless Normal Light- Yellow , Yellow, Dark-Yellow LAB 5767-9(LOINC) Appearance Clear Clear LAB 91365-5(LOINC) Specific gravity 1.009 1.005-1.035 LAB 64739-9(LOINC) pH 6.0 5.0, 5.5, 6.0, 6.5, 7.0, 7.5, 8.0 LAB 25030-6(LOINC) Protein NEGATIVE NEGAT PAPI, 10 (TRACE), 20 (TRACE) mg/dL LAB 36002-4(LOINC) Glucose 200 (2+) Abnormal Normal mg/dL LAB 46423-3(LOINC) Erythrocytes 0.03 (TRACE) Abnormal NEGATI VE mg/dL LAB 93440-1(LOINC) Ketones NEGATIVE NEGATIVE mg/dL LAB 64896-8(LOINC) Bilirubin NEGATIVE NEGATIVE mg/dL LAB 28800-2(LOINC) Urobilinogen Normal Normal mg/d L LAB 88226-9(LOINC) Nitrite NEGATIVE NEGATIVE LAB 60536-0(LOINC) Leukocyte esterase NEGATIVE NEGATIVE Performed By: #### 74733-8 # ### JASON Morales ([id number]) [facility] ([facility]) [address] [place] [address] GLUCOSE Collected: 11:16 PM Status: F Source: [facility] TYPE CODE TESTS RESULT OUT OF RANGE REFERENCE UNITS LAB 2341-6([facility]) Glucose 288 High 74-99 mg/dL Performed By: #### 2341-6 ## ## JASON POPETZER Foreign ([id number]) [facility] ([facility]) [address] [place] [address] ECG 12-LEAD Observed: 12/06/2024 8:34 PM Status: F Source: [facility] Ventricular Rate 75 Atrial Rate 75 P-R Interval 178 QRS Duration 76 Q-T Interval 382 QTC Calculation(Bazett) 426 P [place] 74 R [place] -4 T [place] 68 QRS Count 12 Q Onset 226 P Onset 137 P Offset 194 T Offset 417 QTC Fredericia 411 Diagnosis Normal sinus rhythm Anteroseptal infarct (cited on or before 06-DEC-2024) ACUTE [place] / STEMI Abnormal ECG When compared with ECG of 06-DEC-2024 17:08, (unconfirmed) Premature atrial complexes are no longer Present See ED provider note for full interpretation and clinical correlation Confirmed by Lisa Mena ([id number]) on 12/11/2024 2:27:29 PM POTASSIUM Collected: 6:52 PM Status: F Source: [facility] TYPE CODE TESTS RESULT OUT OF RANGE REFERENCE UNITS LAB 2823-3(LOINC) Potassium 6.1 High Alert 3.5-5.3 mmol/ L Performed By: #### 2823-3 ## ## TON MORAN ([id number]) [facility] ([facility]) [address] [place] [address] GLUCOSE Collected: 6:50 PM Status: F Source: [facility] TYPE CODE TESTS RESULT OUT OF RANGE REFERENCE UNITS LAB 2341-6(LOINC) Glucose 277 High 74-99 mg/dL Performed By: #### 2341-6 ## ## TON MORAN ([id number]) [facility] ([facility]) [facility] [place] [address] ECG 12-LEAD Observed: 12/06/2024 5:08 PM Status: F Source: [facility] Ventricular Rate 79 Atrial Rate 79 P-R Interval 184 QRS Duration 86 Q-T Interval 378 QTC Calculation(Bazett) 433 P [place] 71 R [place] 258 T [place] 66 QRS Count 13 Q Onset 226 P Onset 134 P Offset 185 T Offset 415 QTC Fredericia 414 Diagnosis Sinus rhythm with Premature atrial complexes in a pattern of bigeminy Indeterminate axis Anteroseptal infarct (cited on or before 06-DEC-2024) ACUTE [place] / STEMI Abnormal ECG When compared with ECG of 06-DEC-2024 17:08, (unconfirmed) Previous ECG has undetermined rhythm, needs review Serial changes of evolving Anteroseptal infarct Present See ED provider note for full interpretation and clinical correlation Confirmed by Lisa Mena ([id number]) on 12/11/2024 2:26:16 PM COMPLETE BLOOD COUNT W AUTO DIFFERENTIAL PANEL Collected: 12/06/2024 4:24 PM Status: F Source: [facility] TYPE CODE TESTS RESULT OUT OF RANGE REFERENCE UNITS LAB 6690-2(LOINC) Leukocytes 8.0 4.4-11.3 x10*3/ uL LAB 07645-0(LOINC ) Erythrocytes.nuc leated/100 leukocytes 0.0 0.0-0.0 /100 WBCs LAB 789-8(LOINC) Erythrocytes 3.21 Low 4.50-5.90 x10* 6/uL LAB 718-7(LOINC) Hemoglobin 7.9 Low 13.5-17.5 g/dL LAB 4544-3(LOINC) Hematocrit 25.5 Low 41.0-52.0 % LAB 787-2(LOINC) Erythrocyte mean corpuscular volume 79 Low 80-100 fL LAB 785-6(LOINC) Erythrocyte mean corpuscular hemoglobin 24.6 Low 26.0-34.0 pg LAB 786-4(LOINC) Erythrocyte mean corpuscular hemoglobin concentration 31.0 Low 32.0-36.0 g/dL LAB 788-0(LOINC) Erythrocyte distribution width 18.6 High 11.5-14.5 % LAB 777-3(LOINC) Platelets 112 Low 150-450 x10*3/uL LAB 770-8(LOINC) Neutrophils/100 leukocytes 93.8 40.0-80.0 % LAB 72390-1(LOINC ) Granulocytes.imm ature/100 leukocytes 0.6 0.0-0.9 % Result Comment: Immature Gra nulocyte Count (IG) includes promyelocytes, myelocytes and metamyelocytes but does not include bands. Percent differential counts (%) should be interpreted in the context of the absolute cell counts (cells/UL). LAB 736-9(LOINC) Lymphocytes/100 leukocytes 3.6 13.0-44.0 % LAB 5905-5(LOINC) Monocytes/100 leukocytes 1.6 2.0-10.0 % LAB 713-8(LOINC) Eosinophils/100 leukocytes 0.3 0.0-6.0 % LAB 706-2(LOINC) Basophils/100 leukocytes 0.1 0.0-2.0 % LAB 751-8(LOINC) Neutrophils 7.47 1.20-7.70 x10*3 /uL Result Comment: Percent diff erential counts (%) should be interpreted in the context of the absolute cell counts (cells/uL). LAB 47748-4(LOINC ) Granulocytes.imm ature 0.05 0.00-0.70 x10*3/uL LAB 731-0(LOINC) Lymphocytes 0.29 Low 1.20-4.80 x10*3 /uL LAB 742-7(LOINC) Monocytes 0.13 0.10-1.00 x10*3/u L LAB 711-2(LOINC) Eosinophils 0.02 0.00-0.70 x10*3 /uL LAB 704-7(LOINC) Basophils 0.01 0.00-0.10 x10*3/u L Performed By: #### 44252-5 # ### TON MORAN ([id number]) [facility] ([facility]) [address] [place] [address] MAGNESIUM Collected: 4:24 PM Status: F Source: [facility] TYPE CODE TESTS RESULT OUT OF RANGE REFERENCE UNITS LAB 34338-5([facility]) Magnesium 1.79 1.60-2.40 mg/dL Performed By: #### 85097-3 # ### TON MORAN ([id number]) [facility] ([facility]) [address] [place] [address] PHOSPHATE Collected: 5 4:24 PM Status: F Source: [facility] TYPE CODE TESTS RESULT OUT OF RANGE REFERENCE UNITS LAB 2777-1(LOINC) Phosphate 5.9 High 2.5-4.9 mg/dL Performed By: #### 2777-1 ## ## TON MORAN ([id number]) [facility] ([facility]) [address] [place] [address] BASIC METABOLIC 2000 PANEL Collected: 0 12/06/2024 4:24 PM Status: F Source: [facility] TYPE CODE TESTS RESULT OUT OF RANGE REFERENCE UNITS LAB 2345-7(LOINC) Glucose 362 High 74-99 mg/dL LAB 2951-2(LOINC) Sodium 134 Low 136-145 mmol/L LAB 2823-3(LOINC) Potassium 7.2 High Alert 3.5-5.3 mmol/L LAB 2075-0(LOINC) Chloride 111 High 98-107 mmol/L LAB 8-9(LOINC) Carbon dioxide 16 Low 21-32 mmo l/L LAB 81330-6(LOINC) Anion gap 14 10-20 mmol/L LAB 3094-0(LOINC) Urea nitrogen 95 High Alert 6-23 mg/dL LAB 2160-0(LOINC) Creatinine 3.64 High 0.50-1.30 mg/dL LAB 36825-5(LOINC) Glomerular filtration rate/1.73 sq M.predicted 19 Low >60 mL/min/1 .73m*2 Result Comment: Calculations of estimated GFR are performed using the 2020 CKD- EPI Study Refit equation without the race variable for the IDMS-Traceable creatinine methods. https://jasn.asnjournals.org/content///ASN.8017440363 LAB 74977-8(LOINC) Calcium 9.1 8.6-10.3 mg/dL Performed By: #### 79494-0 # ### TON MORAN ([id number]) [facility] ([facility]) [address] [place] [address] COMPLETE BLOOD COUNT PANEL Collected: 12/06/2024 10:0 9 AM Status: F Source: [facility] TYPE CODE TESTS RESULT OUT OF RANGE REFERENCE UNITS LAB 6690-2(LOINC) Leukocytes 5.9 4.4-11.3 x10*3/ uL LAB 32255-0(LOINC) Erythrocytes.nuc l eated/100 leukocytes 0.0 0.0-0.0 /100 WBCs LAB 789-8(LOINC) Erythrocytes 3.14 Low 4.50-5.90 x10* 6/uL LAB 718-7(LOINC) Hemoglobin 7.8 Low 13.5-17.5 g/dL LAB 4544-3(LOINC) Hematocrit 26.0 Low 41.0-52.0 % LAB 787-2(LOINC) Erythrocyte mean corpuscular volume 83 80-100 fL LAB 785-6(LOINC) Erythrocyte mean corpuscular hemoglobin 24.8 Low 26.0-34.0 pg LAB 786-4(LOINC) Erythrocyte mean corpuscular hemoglobin concentration 30.0 Low 32.0-36.0 g/dL LAB 788-0(LOINC) Erythrocyte distribution width 18.6 High 11.5-14.5 % LAB 777-3(LOINC) Platelets 116 Low 150-450 x10*3/uL Performed By: #### 47386-5 # ### TON MORAN ([id number]) [facility] ([facility]) [address] [place] [address] PROTEIN Collected: 10:09 AM Status: F Source: [facility] TYPE CODE TESTS RESULT OUT OF RANGE REFERENCE UNITS LAB 39819-3(LOINC) Protein 24 5-25 mg/dL LAB 2161-8(LOINC) Creatinine 56.0 20.0-370.0 mg/d L LAB 2890-2(LOINC) Protein/Creati nine 0.43 High 0.00-0.17 mg/mg Creat Performed By: #### 74818-2 # ### TON MORAN ([id number]) [facility] ([facility]) [address] [place] [address] MAGNESIUM Collected: 10:09 AM Status: F Source: [facility] TYPE CODE TESTS RESULT OUT OF RANGE REFERENCE UNITS LAB 30394-5(LOINC) Magnesium 1.85 1.60-2.40 mg/dL Performed By: #### 03730-8 # ### TON MORAN ([id number]) [facility] ([facility]) [address] [place] [address] RENAL FUNCTION 2000 PANEL Collected: 10:09 AM Status: F Source: [facility] TYPE CODE TESTS RESULT OUT OF RANGE REFERENCE UNITS LAB 2345-7(LOINC) Glucose 262 High 74-99 mg/dL LAB 2951-2(LOINC) Sodium 138 136-145 mmol/L LAB 2823-3(LOINC) Potassium 6.3 High Alert 3.5-5.3 mmol/L Result Comment: Confirmed by repeat analysis LAB 2075-0(LOINC) Chloride 114 High 98-107 mmol/L LAB 2027-9(LOINC) Carbon dioxide 17 Low 21-32 mmo l/L LAB 17653-9(LOINC) Anion gap 13 mmol/L LAB 3094-0(LOINC) Urea nitrogen 90 High 6-23 mg/d L LAB 2160-0(LOINC) Creatinine 3.66 High 0.50-1.30 mg/dL LAB 31113-2(LOINC) Glomerular filtration rate/1.73 sq M.predicted 19 Low >60 mL/min/1 .73m*2 Result Comment: Calculations of estimated GFR are performed using the 2020 CKD- EPI Study Refit equation without the race variable for the IDMS-Traceable creatinine methods. https://jasn.asnjournals.org/content//ASN.7089520600 LAB 98972-1(LOINC) Calcium 9.1 8.6-10.3 mg/dL LAB 2777-1(LOINC) Phosphate 5.6 High 2.5-4.9 mg/dL LAB 81356-3(LOINC) Albumin 3.6 3.4-5.0 g/dL Performed By: #### 77999-3 # ### CAMILO DEAN ([id number]) [facility] ([facility]) [facility] [place] [address] TACROLIMUS Collected: 10:09 AM Status: F Source: [facility] Order Comment: NOTE: Result was obtained using a chemiluminescent microparticle immunoassay (CMIA) on the Computer Systems Hardware Analyst i system. Optimal therapeutic ranges for immunosuppressant drugs depend upon an individual patient's current clinical state, type of organ transplant, time post-transplant, co-administration of other immunosuppressants, and other clinical factors. The results of this test should be correlated with additional clinical and laboratory data before changes in treatment regimens are made. TYPE CODE TESTS RESULT OUT OF RANGE REFERENCE UNITS LAB 91502-8(LOINC) Tacrolimus <2.0 <=15.0 ng/mL Performed By: #### 76652-8 # ### JASON Morales ([id number]) [facility] ([facility]) [address] [place] [address] JOSELUIS ARGUETA VIRUS DNA Collected: 12/06 10:09 AM Status: F Source: [facility] Order Comment: Reportable Ra nge: 35-100,000,000 IU/mL. The sophie EBV test is [...] the test result will be reported as "<35 Detected" or ">100,000,000 Detected". The sophie EBV test is intended for [...] the Molecular Diagnostic Laboratory, Department of Pathology, [facility]. TYPE CODE TESTS RESULT OUT OF RANGE REFERENCE UNITS LAB EBVDNAR EBV DNA RESULT Not Detected Not Detected LAB EBPIL EBV PCR PLASMA LOG IU/ML Result Comment: Not calculat ed Performed By: #### 87169-1 # ### JASON Morales ([id number]) [facility] ([facility]) [address] [place] [address] CYTOMEGALOVIRUS DNA Collected: 12/06/2024 10:09 AM S tatus: F Source: [facility] Order Comment: Reportable Ra nge: 35-10,000,000 IU/mL. The sophie CMV test is [...] the test result will be reported as "<35 Detected" or ">10,000,000 Detected". The sophie CMV is intended for use [...] the [facility] Diagnostic Laboratory, Department of Pathology, [facility]. TYPE CODE TESTS RESULT OUT OF RANGE REFERENCE UNITS LAB CMVIL CYTOMEGALOVIRUS DNA, PCR LOG IU/ML Result Comment: Not calculat ed LAB CMVDNAR CMV DNA RESULT Not Detected No t Detected Performed By: #### 07189-1 # ### JASON Morales ([id number]) [facility] ([facility]) [address] [place] [address] BK VIRUS DNA Collected: 5 10:09 AM Status: F Source: [facility] Order Comment: Reportable ra nge: 21.5-100,000,000 IU/mL The sophie BKV is an in vitro nucleic [...] to be 21.5 to 100,000,000 IU/ml in plasma. As with [...] the test result will be reported as "<21.5 Detected" or ">100,000,000 Detected". The sophie BKV is intended for use as [...] the [facility] Diagnostic Laboratory, Department of Pathology, [facility]. TYPE CODE TESTS RESULT OUT OF RANGE REFERENCE UNITS LAB BKVLO BK VIRUS LOG PCR Result Comment: Not calculat ed LAB BKDNA BKV DNA RESULT Not Detected Not Detected Performed By: #### 33931-7 # ### JASON Morales ([id number]) [facility] ([facility]) [address] [place] [address] CNPN Observed: 12/06/2024 12:00 AM Status: COMPLETED Source: [facility] THOM CHAPIN ([id number]) 1970 M Date Time Provider Department 12/06/24 [facility] visit today, we recorded the following information about you: Pamella Rojas RN 12/06/2024 10:55 AM Signed Cece OIndigo with [employer] with [employer] called in and reports Pt used transportation [...] not handle transportation issues. Need to call [phone]. They do not have transportation services for this pt, the Medicare ID number does not show an account for him. Called pt to notify him of this. His ID# [id number] Still unable to get any assistance, no account on file with id number, address or phone number. Tried to call Cece Wong at [phone] but that number just disconnects. Penny Candelario [...] mouth two times a day. - Insulin Rosie, Disposable, (PEN NEEDLE) 32 gauge x 5/32" Give with each insulin administration once in the am and once in the pm - insulin glargine (BASAGLAR KWIKPEN U-100 INSULIN) 100 unit/mL (3 mL) Inject 14 Units subcutaneously every 24 hours. - sildenafil (VIAGRA) 50 mg tablet Take 1 tablet by mouth as needed. Take one hour prior to sexual activity - Insulin Rosie, Disposable, (PEN NEEDLE) 32 gauge x 5/32" Inject 1 Each subcutaneously every 24 hours. Give with each insulin administration. - Insulin Rosie, Disposable, (UNIFINE PENTIPS PLUS) 31 gauge x 3/16" USE TWICE DAILY DIRECTED FOR INSULIN - Blood-Glucose Sensor (DEXCOM G6 SENSOR) ricco 10 Each as directed. Apply a new [...] daily. - NOVOFINE AUTOCOVER 30 gauge x 1/3" ndle - Insulin Syringe-Needle U-100 (BD LO-DOSE MICRO-FINE IV) 0.3 mL 28 x 1/2" syrg Inject 1 Each subcutaneously daily at [...] Sinus complaint [R09.89] 04/23/2012 06/16/2019 Alpha 0-thalassemia ([facility]) [D56.0] 03/01/2014 ESRD (end stage renal disease) ([facility]) [N18.6] 01/08/2016 S/P transmetatarsal amputation of foot, right (*08/17/2019 Atherosclerosis of capitan grande band artery of extremity w*12/24/2022 Secondary hyperparathyroidism of renal origin (*12/24/2022 Encounter Status:Closed by PENNY CANDELARIO on 12/06/24 COMPLETE BLOOD COUNT PANEL Collected: 12/02/2024 1:25 PM Status: F Source: [facility] TYPE CODE TESTS RESULT OUT OF RANGE REFERENCE UNITS LAB 6690-2(LOINC) Leukocytes 6.3 4.4-11.3 x10*3/ uL LAB 09794-7(LOINC) Erythrocytes.nuc l eated/100 leukocytes 0.0 0.0-0.0 /100 WBCs LAB 789-8(LOINC) Erythrocytes 3.26 Low 4.50-5.90 x10* 6/uL LAB 718-7(LOINC) Hemoglobin 8.1 Low 13.5-17.5 g/dL LAB 4544-3(LOINC) Hematocrit 26.6 Low 41.0-52.0 % LAB 787-2(LOINC) Erythrocyte mean corpuscular volume 82 80-100 fL LAB 785-6(LOINC) Erythrocyte mean corpuscular hemoglobin 24.8 Low 26.0-34.0 pg LAB 786-4(LOINC) Erythrocyte mean corpuscular hemoglobin concentration 30.5 Low 32.0-36.0 g/dL LAB 788-0(LOINC) Erythrocyte distribution width 17.3 High 11.5-14.5 % LAB 777-3(LOINC) Platelets 106 Low 150-450 x10*3/uL Performed By: #### 40100-5 # ### CAMILO DEAN ([id number]) [facility] ([facility]) [address] [id number] MAGNESIUM Collected: 1:25 PM Status: F Source: [facility] TYPE CODE TESTS RESULT OUT OF RANGE REFERENCE UNITS LAB 80718-0(LOINC) Magnesium 1.86 1.60-2.40 mg/dL Performed By: #### 19946-4 # ### TON MORAN ([id number]) [facility] ([facility]) [address] [place] [address] RENAL FUNCTION 2000 PANEL Collected: 1:25 PM Status: F Source: [facility] TYPE CODE TESTS RESULT OUT OF RANGE REFERENCE UNITS LAB 2345-7(LOINC) Glucose 316 High 74-99 mg/dL LAB 2951-2(LOINC) Sodium 136 136-145 mmol/L LAB 2823-3(LOINC) Potassium 6.0 High 3.5-5.3 mmol/L Result Comment: MILD HEMOLYS IS DETECTED. The result may be falsely elevated due to hemolysis or other interferents. Clinical correlation is recommended. Repeat testing may be considered. Confirmed by repeat analysis LAB 2075-0(LOINC) Chloride 104 98-107 mmol/L LAB 8-9(LOINC) Carbon dioxide 25 21-32 mmo l/L LAB 05446-4(LOINC) Anion gap 13 mmol/L LAB 3094-0(LOINC) Urea nitrogen 67 High 6-23 mg/d L LAB 2160-0(LOINC) Creatinine 4.26 High 0.50-1.30 mg/dL LAB 77660-1(LOINC) Glomerular filtration rate/1.73 sq M.predicted 16 Low >60 mL/min/1 .73m*2 Result Comment: Calculations of estimated GFR are performed using the 2020 CKD- EPI Study Refit equation without the race variable for the IDMS-Traceable creatinine methods. https://jasn.asnjournals.org/content/early//ASN.5784696210 LAB 76235-2(LOINC) Calcium 8.7 8.6-10.3 mg/dL LAB 2777-1(LOINC) Phosphate 5.0 High 2.5-4.9 mg/dL Result Comment: MILD HEMOLYS IS DETECTED. The result may be falsely elevated due to hemolysis or other interferents. Clinical correlation is recommended. Repeat testing may be considered. LAB 23614-6(LOINC) Albumin 3.6 3.4-5.0 g/dL Performed By: #### 01812-7 # ### TON MORAN ([id number]) [facility] ([facility]) [address] [place] [address] TACROLIMUS Collected: 1:25 PM Status: F Source: [facility] Order Comment: NOTE: Result was obtained using a chemiluminescent microparticle immunoassay (CMIA) on the Computer Systems Hardware Analyst i system. Optimal therapeutic ranges for immunosuppressant drugs depend upon an individual patient's current clinical state, type of organ transplant, time post-transplant, co-administration of other immunosuppressants, and other clinical factors. The results of this test should be correlated with additional clinical and laboratory data before changes in treatment regimens are made. TYPE CODE TESTS RESULT OUT OF RANGE REFERENCE UNITS LAB 44590-4(LOINC) Tacrolimus 5.2 <=15.0 ng/mL Performed By: #### 40763-3 # ### JASON Morales ([id number]) [facility] ([facility]) [address] [place] [address] COMPLETE BLOOD COUNT PANEL Collected: 11/30/2024 7:13 AM Status: F Source: [facility] Order Comment: Before Hemodi alysis TYPE CODE TESTS RESULT OUT OF RANGE REFERENCE UNITS LAB 6690-2(LOINC) Leukocytes 5.4 4.4-11.3 x10*3/ uL LAB 73536-7(LOINC) Erythrocytes.nuc leated/100 leukocytes 0.0 0.0-0.0 /100 WBCs LAB 789-8(LOINC) Erythrocytes 3.05 Low 4.50-5.90 x10* 6/uL LAB 718-7(LOINC) Hemoglobin 7.4 Low 13.5-17.5 g/dL LAB 4544-3(LOINC) Hematocrit 24.0 Low 41.0-52.0 % LAB 787-2(LOINC) Erythrocyte mean corpuscular volume 79 Low 80-100 fL LAB 785-6(LOINC) Erythrocyte mean corpuscular hemoglobin 24.3 Low 26.0-34.0 pg LAB 786-4(LOINC) Erythrocyte mean corpuscular hemoglobin concentration 30.8 Low 32.0-36.0 g/dL LAB 788-0(LOINC) Erythrocyte distribution width 17.1 High 11.5-14.5 % LAB 777-3(LOINC) Platelets 96 Low 150-450 x10*3/uL Performed By: #### 04160-6 # ### JASON JENNINGS L ([id number]) [facility] ([facility]) [address] [place] [address] MAGNESIUM Collected: 7:13 AM Status: F Source: [facility] Order Comment: Before Hemodi alysis TYPE CODE TESTS RESULT OUT OF RANGE REFERENCE UNITS LAB 49188-5(LOINC) Magnesium 1.78 1.60-2.40 mg/dL Performed By: #### 84739-6 # ### JASON SUTHERLANDER L ([id number]) [facility] ([facility]) [address] [place] [address] RENAL FUNCTION 2000 PANEL Collected: 7:13 AM Status: F Source: [facility] Order Comment: Before Hemodi alysis TYPE CODE TESTS RESULT OUT OF RANGE REFERENCE UNITS LAB 2345-7(LOINC) Glucose 248 High 74-99 mg/dL LAB 2951-2(LOINC) Sodium 135 Low 136-145 mmol/L LAB 2823-3(LOINC) Potassium 4.4 3.5-5.3 mmol/L LAB 2075-0(LOINC) Chloride 103 98-107 mmol/L LAB 2027-9(LOINC) Carbon dioxide 20 Low 21-32 mmo l/L LAB 14494-1(LOINC) Anion gap 16 10-20 mmol/L LAB 3094-0(LOINC) Urea nitrogen 83 High 6-23 mg/d L LAB 2160-0(LOINC) Creatinine 4.47 High 0.50-1.30 mg/dL LAB 38881-4(LOINC) Glomerular filtration rate/1.73 sq M.predicted 15 Low >60 mL/min/1 .73m*2 Result Comment: Calculations of estimated GFR are performed using the 2020 CKD- EPI Study Refit equation without the race variable for the IDMS-Traceable creatinine methods. https://jasn.asnjournals.org/content//ASN.5547507202 LAB 86640-7(LOINC) Calcium 8.4 Low 8.6-10.6 mg/dL LAB 2777-1(LOINC) Phosphate 4.2 2.5-4.9 mg/dL LAB 05083-5(LOINC) Albumin 3.2 Low 3.4-5.0 g/dL Performed By: #### 82452-1 # ### JASON Morales ([id number]) [facility] ([facility]) [address] [place], [place] [id number] TACROLIMUS Collected: 7:13 AM Status: F Source: [facility] Order Comment: Before Hemodi alysis NOTE: Result was obtained using a chemiluminescent microparticle immunoassay (CMIA) on the Computer Systems Hardware Analyst i system. Optimal therapeutic ranges for immunosuppressant drugs depend upon an individual patient's current clinical state, type of organ transplant, time post-transplant, co-administration of other immunosuppressants, and other clinical factors. The results of this test should be correlated with additional clinical and laboratory data before changes in treatment regimens are made. TYPE CODE TESTS RESULT OUT OF RANGE REFERENCE UNITS LAB 96683-8(LOINC) Tacrolimus 5.9 <=15.0 ng/mL Performed By: #### 33586-7 # ### JASON Morales ([id number]) [facility] ([facility]) [address] [place] [address] PT Collected: 7:43 AM Status: F Source: [facility] Order Comment: The APTT is n o longer used for monitoring Unfractionated Heparin Therapy. For monitoring Heparin Therapy, use the Heparin Assay. TYPE CODE TESTS RESULT OUT OF RANGE REFERENCE UNITS LAB 5902-2(LOINC) Coagulation tissue factor induced 11.4 9.8-12.4 seconds LAB 6301-6(LOINC) Coagulation tissue factor induced.INR 1.0 0.9-1.1 NA LAB 88568-3(LOINC) Coagulation surface induced 25 Low 26-36 seconds Performed By: #### 84300-8 # ### JASON Morales ([id number]) [facility] ([facility]) [address] [place], [place] [address] COMPLETE BLOOD COUNT PANEL Collected: 11/29/2024 7:43 AM Status: F Source: [facility] TYPE CODE TESTS RESULT OUT OF RANGE REFERENCE UNITS LAB 6690-2(LOINC) Leukocytes 5.9 4.4-11.3 x10*3/ uL LAB 50266-7(LOINC) Erythrocytes.nuc l eated/100 leukocytes 0.0 0.0-0.0 /100 WBCs LAB 789-8(LOINC) Erythrocytes 3.35 Low 4.50-5.90 x10* 6/uL LAB 718-7(LOINC) Hemoglobin 8.4 Low 13.5-17.5 g/dL LAB 4544-3(LOINC) Hematocrit 26.4 Low 41.0-52.0 % LAB 787-2(LOINC) Erythrocyte mean corpuscular volume 79 Low 80-100 fL LAB 785-6(LOINC) Erythrocyte mean corpuscular hemoglobin 25.1 Low 26.0-34.0 pg LAB 786-4(LOINC) Erythrocyte mean corpuscular hemoglobin concentration 31.8 Low 32.0-36.0 g/dL LAB 788-0(LOINC) Erythrocyte distribution width 16.9 High 11.5-14.5 % LAB 777-3(LOINC) Platelets 121 Low 150-450 x10*3/uL Performed By: #### 21703-2 # ### JASON Morales ([id number]) [facility] ([facility]) [address] [place] [address] MAGNESIUM Collected: 7:43 AM Status: F Source: [facility] TYPE CODE TESTS RESULT OUT OF RANGE REFERENCE UNITS LAB 45926-7([facility]) Magnesium 1.91 1.60-2.40 mg/dL Performed By: #### 74611-0 # ### JASON SCHMOTZER L ([id number]) [facility] ([facility]) [address] [place] [address] RENAL FUNCTION 2000 PANEL Collected: 7:43 AM Status: F Source: [facility] TYPE CODE TESTS RESULT OUT OF RANGE REFERENCE UNITS LAB 2345-7(LOINC) Glucose 266 High 74-99 mg/dL LAB 2951-2(LOINC) Sodium 135 Low 136-145 mmol/L LAB 2823-3(LOINC) Potassium 4.6 3.5-5.3 mmol/L LAB 2075-0(LOINC) Chloride 100 98-107 mmol/L LAB 8-9(LOINC) Carbon dioxide 24 21-32 mmo l/L LAB 19644-6(LOINC) Anion gap 16 10-20 mmol/L LAB 3094-0(LOINC) Urea nitrogen 77 High 6-23 mg/d L LAB 2160-0(LOINC) Creatinine 5.52 High 0.50-1.30 mg/dL LAB 48100-1(LOINC) Glomerular filtration rate/1.73 sq M.predicted 11 Low >60 mL/min/1 .73m*2 Result Comment: Calculations of estimated GFR are performed using the 2020 CKD- EPI Study Refit equation without the race variable for the IDMS-Traceable creatinine methods. https://jasn.asnjournals.org/content/early//ASN.1650015297 LAB 43566-3(LOINC) Calcium 9.0 8.6-10.6 mg/dL LAB 2777-1(LOINC) Phosphate 4.6 2.5-4.9 mg/dL LAB 09848-2(LOINC) Albumin 3.5 3.4-5.0 g/dL Performed By: #### 15133-5 # ### JASON Morales ([id number]) [facility] ([facility]) [address] [place] [address] TACROLIMUS Collected: 5 7:43 AM Status: F Source: [facility] Order Comment: NOTE: Result was obtained using a chemiluminescent microparticle immunoassay (CMIA) on the Computer Systems Hardware Analyst i system. Optimal therapeutic ranges for immunosuppressant drugs depend upon an individual patient's current clinical state, type of organ transplant, time post-transplant, co-administration of other immunosuppressants, and other clinical factors. The results of this test should be correlated with additional clinical and laboratory data before changes in treatment regimens are made. TYPE CODE TESTS RESULT OUT OF RANGE REFERENCE UNITS LAB 20750-7(LOINC) Tacrolimus 21.6 High Alert <=15.0 ng/mL Performed By: #### 49868-2 # ### JASON Morales ([id number]) [facility] ([facility]) [address] [place], [place] [id number] HIV 1 RNA Collected: 5 7:43 AM Status: F Source: [facility] Order Comment: Performed at: - [employer] [address] [id number] Internet Marketing Intern: Juarez Ayala [facility], Phone: [phone] TYPE CODE TESTS RESULT OUT OF RANGE REFERENCE UNITS LAB 88081-5(LOINC) HIV 1 RNA Comment Non Reactive Result Comment: Non-Reactive for HIV RNA Non-Reactive for HCV RNA Non-Reactive for HBV DNA Test performed with [employer] Ultrio Elite Assay Kit. Performed By: #### 80018-6 # ### [facility] (JANEE) ([id number]) [address] [place] [id number] GLUCOSE Collected: 5 8:19 AM Status: F Source: [facility] TYPE CODE TESTS RESULT OUT OF RANGE REFERENCE UNITS LAB 2341-6(LOINC) Glucose 177 High 74-99 mg/dL Performed By: #### 2341-6 ## ## JASON Morales ([id number]) [facility] ([facility]) [address] [place], [place] [id number] MAGNESIUM Collected: 5 5:38 AM Status: F Source: [facility] TYPE CODE TESTS RESULT OUT OF RANGE REFERENCE UNITS LAB 69771-6(LOINC) Magnesium 1.91 1.60-2.40 mg/dL Performed By: #### 61776-2 # ### JASON Morales ([id number]) [facility] ([facility]) [address] [place], [place] [id number] RENAL FUNCTION 2000 PANEL Collected: 5:38 AM Status: F Source: [facility] TYPE CODE TESTS RESULT OUT OF RANGE REFERENCE UNITS LAB 2345-7(LOINC) Glucose 176 High 74-99 mg/dL LAB 2951-2(LOINC) Sodium 136 136-145 mmol/L LAB 2823-3(LOINC) Potassium 4.1 3.5-5.3 mmol/L LAB 2075-0(LOINC) Chloride 98 98-107 mmol/L LAB 8-9(LOINC) Carbon dioxide 30 21-32 mmo l/L LAB 52075-6(LOINC) Anion gap 12 10-20 mmol/L LAB 3094-0(LOINC) Urea nitrogen 47 High 6-23 mg/d L LAB 2160-0(LOINC) Creatinine 3.39 High 0.50-1.30 mg/dL LAB 39065-7(LOINC) Glomerular filtration rate/1.73 sq M.predicted 20 Low >60 mL/min/1 .73m*2 Result Comment: Calculations of estimated GFR are performed using the 2020 CKD- EPI Study Refit equation without the race variable for the IDMS-Traceable creatinine methods. https://jasn.asnjournals.org/content/early//ASN.7197876631 LAB 24227-5(LOINC) Calcium 8.8 8.6-10.6 mg/dL LAB 2777-1(LOINC) Phosphate 4.2 2.5-4.9 mg/dL LAB 46417-7(LOINC) Albumin 3.4 3.4-5.0 g/dL Performed By: #### 48680-9 # ### JASON Morales ([id number]) [facility] ([facility]) [address] [place] [address] COMPLETE BLOOD COUNT PANEL Collected: 11/27/2024 5:38 AM Status: F Source: [facility] TYPE CODE TESTS RESULT OUT OF RANGE REFERENCE UNITS LAB 6690-2(LOINC) Leukocytes 6.3 4.4-11.3 x10*3/ uL LAB 59714-4(LOINC) Erythrocytes.nuc l eated/100 leukocytes 0.0 0.0-0.0 /100 WBCs LAB 789-8(LOINC) Erythrocytes 3.43 Low 4.50-5.90 x10* 6/uL LAB 718-7(LOINC) Hemoglobin 8.7 Low 13.5-17.5 g/dL LAB 4544-3(LOINC) Hematocrit 26.7 Low 41.0-52.0 % LAB 787-2(LOINC) Erythrocyte mean corpuscular volume 78 Low 80-100 fL LAB 785-6(LOINC) Erythrocyte mean corpuscular hemoglobin 25.4 Low 26.0-34.0 pg LAB 786-4(LOINC) Erythrocyte mean corpuscular hemoglobin concentration 32.6 32.0-36.0 g/dL LAB 788-0(LOINC) Erythrocyte distribution width 16.3 High 11.5-14.5 % LAB 777-3(LOINC) Platelets 125 Low 150-450 x10*3/uL Performed By: #### 55398-3 # ### JASON Morales ([id number]) [facility] ([facility]) [address] [place] [address] 43072 TACROLIMUS Collected: 5 5:38 AM Status: F Source: [facility] Order Comment: NOTE: Result was obtained using a chemiluminescent microparticle immunoassay (CMIA) on the Computer [employer] Hardware Analyst i system. Optimal therapeutic ranges for immunosuppressant drugs depend upon an individual patient's current clinical state, type of organ transplant, time post-transplant, co-administration of other immunosuppressants, and other clinical factors. The results of this test should be correlated with additional clinical and laboratory data before changes in treatment regimens are made. TYPE CODE TESTS RESULT OUT OF RANGE REFERENCE UNITS LAB 73590-8(LOINC) Tacrolimus 15.5 High <=15.0 ng/mL Performed By: #### 78904-2 # ### JASON Morales ([id number]) [facility] ([facility]) [address] [place] [address] 70921 GLUCOSE Collected: 5 3:08 AM Status: F Source: [facility] TYPE CODE TESTS RESULT OUT OF RANGE REFERENCE UNITS LAB 2341-6(LOINC) Glucose 205 High 74-99 mg/dL Performed By: #### 2341-6 ## ## JASON CLARKMOZAY L ([id number]) [facility] ([facility]) [address] [place] [address] 82750 GLUCOSE Collected: 5 11:32 PM Status: F Source: [facility] TYPE CODE TESTS RESULT OUT OF RANGE REFERENCE UNITS LAB 2341-6(LOINC) Glucose 178 High 74-99 mg/dL Performed By: #### 2341-6 ## ## JASON SCHMOTZER L ([id number]) [facility] ([facility]) [address] [place] [address] 90255 GLUCOSE Collected: 9:03 PM Status: F Source: [facility] TYPE CODE TESTS RESULT OUT OF RANGE REFERENCE UNITS LAB 2341-6(LOINC) Glucose 192 High 74-99 mg/dL Performed By: #### 2341-6 ## ## JASON CLARKMOTZER L ([id number]) [facility] ([facility]) [address] [place] [address] 43181 GLUCOSE Collected: 4:27 PM Status: F Source: [facility] TYPE CODE TESTS RESULT OUT OF RANGE REFERENCE UNITS LAB 2341-6(LOINC) Glucose 104 High 74-99 mg/dL Performed By: #### 2341-6 ## ## JASON SCHMOTZER L ([id number]) [facility] ([facility]) [address] [place] [address] 39156 GLUCOSE Collected: 10:56 AM Status: F Source: [facility] TYPE CODE TESTS RESULT OUT OF RANGE REFERENCE UNITS LAB 2341-6(LOINC) Glucose 328 High 74-99 mg/dL Performed By: #### 2341-6 ## ## JASON SCHMOTZER L ([id number]) [facility] ([facility]) [address] [place] [address] 12190 GLUCOSE Collected: 7:33 AM Status: F Source: [facility] TYPE CODE TESTS RESULT OUT OF RANGE REFERENCE UNITS LAB 2341-6(LOINC) Glucose 219 High 74-99 mg/dL Performed By: #### 2341-6 ## ## JASON SCHMOTZER L ([id number]) [facility] ([facility]) [address] [place] [address] 36717 COMPLETE BLOOD COUNT PANEL Collected: 11/26/2024 5:19 AM Status: F Source: [facility] TYPE CODE TESTS RESULT OUT OF RANGE REFERENCE UNITS LAB 6690-2(LOINC) Leukocytes 7.4 4.4-11.3 x10*3/ uL LAB 43691-7(LOINC) Erythrocytes.nuc l eated/100 leukocytes 0.0 0.0-0.0 /100 WBCs LAB 789-8(LOINC) Erythrocytes 2.98 Low 4.50-5.90 x10* 6/uL LAB 718-7(LOINC) Hemoglobin 7.1 Low 13.5-17.5 g/dL LAB 4544-3(LOINC) Hematocrit 23.2 Low 41.0-52.0 % LAB 787-2(LOINC) Erythrocyte mean corpuscular volume 78 Low 80-100 fL LAB 785-6(LOINC) Erythrocyte mean corpuscular hemoglobin 23.8 Low 26.0-34.0 pg LAB 786-4(LOINC) Erythrocyte mean corpuscular hemoglobin concentration 30.6 Low 32.0-36.0 g/dL LAB 788-0(LOINC) Erythrocyte distribution width 16.2 High 11.5-14.5 % LAB 777-3(LOINC) Platelets 109 Low 150-450 x10*3/uL Performed By: #### 97424-7 # ### JASON Morales ([id number]) [facility] ([facility]) [id number] [place] [address] MAGNESIUM Collected: 5:19 AM Status: F Source: [facility] TYPE CODE TESTS RESULT OUT OF RANGE REFERENCE UNITS LAB 83383-2([facility]) Magnesium 1.94 1.60-2.40 mg/dL Performed By: #### 52427-5 # ### JASON Morales ([id number]) [facility] ([facility]) [address] [place] [address] RENAL FUNCTION 2000 PANEL Collected: 5:19 AM Status: F Source: [facility] TYPE CODE TESTS RESULT OUT OF RANGE REFERENCE UNITS LAB 2345-7(LOINC) Glucose 239 High 74-99 mg/dL LAB 2951-2(LOINC) Sodium 135 Low 136-145 mmol/L LAB 2823-3(LOINC) Potassium 5.0 3.5-5.3 mmol/L LAB 2075-0(LOINC) Chloride 101 98-107 mmol/L LAB 2027-9(LOINC) Carbon dioxide 24 21-32 mmo l/L LAB 83893-7(LOINC) Anion gap 15 10-20 mmol/L LAB 3094-0(LOINC) Urea nitrogen 92 High Alert 6-23 mg/dL LAB 2160-0(LOINC) Creatinine 4.97 High 0.50-1.30 mg/dL LAB 86049-3(LOINC) Glomerular filtration rate/1.73 sq M.predicted 13 Low >60 mL/min/1 .73m*2 Result Comment: Calculations of estimated GFR are performed using the 2020 CKD- EPI Study Refit equation without the race variable for the IDMS-Traceable creatinine methods. https://jasn.asnjournals.org/content//ASN.6527458211 LAB 71099-0(LOINC) Calcium 9.2 8.6-10.6 mg/dL LAB 2777-1(LOINC) Phosphate 5.5 High 2.5-4.9 mg/dL LAB 13875-7(LOINC) Albumin 3.4 3.4-5.0 g/dL Performed By: #### 17298-7 # ### JASON Morales ([id number]) [facility] ([facility]) [address] [place] [address] TACROLIMUS Collected: 5 5:19 AM Status: F Source: [facility] Order Comment: NOTE: Result was obtained using a chemiluminescent microparticle immunoassay (CMIA) on the Computer [employer] Hardware Analyst i system. Optimal therapeutic ranges for immunosuppressant drugs depend upon an individual patient's current clinical state, type of organ transplant, time post-transplant, co-administration of other immunosuppressants, and other clinical factors. The results of this test should be correlated with additional clinical and laboratory data before changes in treatment regimens are made. TYPE CODE TESTS RESULT OUT OF RANGE REFERENCE UNITS LAB 49861-0(LOINC) Tacrolimus 7.6 <=15.0 ng/mL Performed By: #### 74558-8 # ### JASON CLARKMOTZER L ([id number]) [facility] ([facility]) [address] [place], [place] [id number] GLUCOSE Collected: 5 3:35 AM Status: F Source: [facility] TYPE CODE TESTS RESULT OUT OF RANGE REFERENCE UNITS LAB 2341-6(LOINC) Glucose 205 High 74-99 mg/dL Performed By: #### 2341-6 ## ## JASON CLARKMOTZER L ([id number]) [facility] ([facility]) [address] [place] [address] 31807 GLUCOSE Collected: 5 11:49 PM Status: F Source: [facility] TYPE CODE TESTS RESULT OUT OF RANGE REFERENCE UNITS LAB 2341-6(LOINC) Glucose 293 High 74-99 mg/dL Performed By: #### 2341-6 ## ## JASON SCHMOTZER L ([id number]) [facility] ([facility]) [address] [place] [address] 42547 GLUCOSE Collected: 5 7:34 PM Status: F Source: [facility] TYPE CODE TESTS RESULT OUT OF RANGE REFERENCE UNITS LAB 2341-6(LOINC) Glucose 253 High 74-99 mg/dL Performed By: #### 2341-6 ## ## JASON SCHMOTZER L ([id number]) [facility] ([facility]) [address] [place] [address] 61410 GLUCOSE Collected: 5 6:51 PM Status: F Source: [facility] TYPE CODE TESTS RESULT OUT OF RANGE REFERENCE UNITS LAB 2341-6(LOINC) Glucose 263 High 74-99 mg/dL Performed By: #### 2341-6 ## ## JASON SCHMOTZER L ([id number]) [facility] ([facility]) [address] [place] [address] 15399 GLUCOSE Collected: 5 4:00 PM Status: F Source: [facility] TYPE CODE TESTS RESULT OUT OF RANGE REFERENCE UNITS LAB 2341-6(LOINC) Glucose 393 High 74-99 mg/dL Performed By: #### 2341-6 ## ## JASON SCHMOTZER L ([id number]) [facility] ([facility]) [address] [place] [address] 19291 GLUCOSE Collected: 5 12:25 PM Status: F Source: [facility] TYPE CODE TESTS RESULT OUT OF RANGE REFERENCE UNITS LAB 2341-6(LOINC) Glucose 464 High 74-99 mg/dL Performed By: #### 2341-6 ## ## JASON SCHMOTZER L ([id number]) [facility] ([facility]) [address] [place] [address] 96770 GLUCOSE Collected: 8:00 AM Status: F Source: [facility] TYPE CODE TESTS RESULT OUT OF RANGE REFERENCE UNITS LAB 2341-6(LOINC) Glucose 273 High 74-99 mg/dL Performed By: #### 2341-6 ## ## JASON Morales ([id number]) [facility] ([facility]) [address] [place] [address] BLOOD TYPE Collected: 11/25/2024 5:20 AM Status: F Source: [facility] TYPE CODE TESTS RESULT OUT OF RANGE REFERENCE UNITS LAB 883-9(LOINC) ABO group B LAB 1305-2(LOINC) D Ag POS LAB 890-4(LOINC) Blood group antibody screen NEG Performed By: #### 18063-0 # ### JASON Morales ([id number]) [facility] ([facility]) [address] [place] [address] TACROLIMUS Collected: 5:20 AM Status: F Source: [facility] Order Comment: NOTE: Result was obtained using a chemiluminescent microparticle immunoassay (CMIA) on the Computer Systems Hardware Analyst i system. Optimal therapeutic ranges for immunosuppressant drugs depend upon an individual patient's current clinical state, type of organ transplant, time post-transplant, co-administration of other immunosuppressants, and other clinical factors. The results of this test should be correlated with additional clinical and laboratory data before changes in treatment regimens are made. TYPE CODE TESTS RESULT OUT OF RANGE REFERENCE UNITS LAB 54976-7(LOINC) Tacrolimus 11.5 <=15.0 ng/mL Performed By: #### 28410-2 # ### JASON Morales ([id number]) [facility] ([facility]) [address] [place], [place] [id number] COMPLETE BLOOD COUNT PANEL Collected: 11/25/2024 2:36 AM Status: F Source: [facility] TYPE CODE TESTS RESULT OUT OF RANGE REFERENCE UNITS LAB 6690-2(LOINC) Leukocytes 3.6 Low 4.4-11.3 x10*3/ uL LAB 43413-9(LOINC) Erythrocytes.nuc l eated/100 leukocytes 0.0 0.0-0.0 /100 WBCs LAB 789-8(LOINC) Erythrocytes 3.07 Low 4.50-5.90 x10* 6/uL LAB 718-7(LOINC) Hemoglobin 7.4 Low 13.5-17.5 g/dL LAB 4544-3(LOINC) Hematocrit 24.4 Low 41.0-52.0 % LAB 787-2(LOINC) Erythrocyte mean corpuscular volume 80 80-100 fL LAB 785-6(LOINC) Erythrocyte mean corpuscular hemoglobin 24.1 Low 26.0-34.0 pg LAB 786-4(LOINC) Erythrocyte mean corpuscular hemoglobin concentration 30.3 Low 32.0-36.0 g/dL LAB 788-0(LOINC) Erythrocyte distribution width 16.5 High 11.5-14.5 % LAB 777-3(LOINC) Platelets 94 Low 150-450 x10*3/uL Performed By: #### 46704-4 # ### JASON Morales ([id number]) [facility] ([facility]) [id number] [place] [address] MAGNESIUM Collected: 2:36 AM Status: F Source: [facility] TYPE CODE TESTS RESULT OUT OF RANGE REFERENCE UNITS LAB 23890-7([facility]) Magnesium 1.97 1.60-2.40 mg/dL Performed By: #### 79616-7 # ### JASON Morales ([id number]) [facility] ([facility]) [address] [place] [address] 34362 RENAL FUNCTION 2000 PANEL Collected: 2:36 AM Status: F Source: [facility] TYPE CODE TESTS RESULT OUT OF RANGE REFERENCE UNITS LAB 2345-7(LOINC) Glucose 365 High 74-99 mg/dL LAB 2951-2(LOINC) Sodium 135 Low 136-145 mmol/L LAB 2823-3(LOINC) Potassium 4.0 3.5-5.3 mmol/L LAB 2075-0(LOINC) Chloride 100 98-107 mmol/L LAB 2027-9(LOINC) Carbon dioxide 23 21-32 mmo l/L LAB 07001-0(LOINC) Anion gap 16 10-20 mmol/L LAB 3094-0(LOINC) Urea nitrogen 78 High 6-23 mg/d L LAB 2160-0(LOINC) Creatinine 4.64 High 0.50-1.30 mg/dL LAB 29444-6(LOINC) Glomerular filtration rate/1.73 sq M.predicted 14 Low >60 mL/min/1 .73m*2 Result Comment: Calculations of estimated GFR are performed using the 2020 CKD- EPI Study Refit equation without the race variable for the IDMS-Traceable creatinine methods. https://jasn.asnjournals.org/content/early//ASN.4931916098 LAB 53822-7(LOINC) Calcium 8.8 8.6-10.6 mg/dL LAB 2777-1(LOINC) Phosphate 4.9 2.5-4.9 mg/dL LAB 18369-8(LOINC) Albumin 3.5 3.4-5.0 g/dL Performed By: #### 58940-2 # ### JASON Morales ([id number]) [facility] ([facility]) [address] [place] [address] GLUCOSE Collected: 2:35 AM Status: F Source: [facility] TYPE CODE TESTS RESULT OUT OF RANGE REFERENCE UNITS LAB 2341-6(LOINC) Glucose 369 High 74-99 mg/dL Performed By: #### 2341-6 ## ## JASON Morales ([id number]) [facility] ([facility]) [address] [place] [id number] US KIDNEY TRANSPLANT Observed: 9:10 PM Status: F Source: [facility] Interpreted By: Justa Choe, and Alonso Barrow STUDY: US KIDNEY TRANSPLANT; 11/25/2024 12:55 am INDICATION: Signs/Symptoms: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 making little urine, admitted for TCMR. eval ureter for hydro , eval kidney itself. r/o any collection that may be compressing ureter. Transplant date: 10/15/2024. COMPARISON: Ultrasound kidney transplant 10/17/2024. ACCESSION NUMBER(S): [id number] ORDERING CLINICIAN: KOBE STOREY TECHNIQUE: Grayscale, color, and spectral Doppler of the kidney transplant were performed. This examination was interpreted at [facility]. FINDINGS: All prior comparisons referred to 10/17/2024 exam. TRANSPLANT KIDNEY: Transplant kidney location: The renal transplant is located in the right iliac fossa. The transplant kidney .4 cm (prior: 12.1 cm). In craniocaudal dimension. [...] Gupta MD. This study was interpreted at [place], [place] MACRO: None Signed by: Moreno Choe 11/25/2024 5:49 AM Dictation workstation: [id number] TACROLIMUS Collected: 12:48 PM Status: F Source: [facility] Order Comment: NOTE: Result was obtained using a chemiluminescent microparticle immunoassay (CMIA) on the Computer Systems Hardware Analyst i system. Optimal therapeutic ranges for immunosuppressant drugs depend upon an individual patient's current clinical state, type of organ transplant, time post-transplant, co-administration of other immunosuppressants, and other clinical factors. The results of this test should be correlated with additional clinical and laboratory data before changes in treatment regimens are made. TYPE CODE TESTS RESULT OUT OF RANGE REFERENCE UNITS LAB 27360-4(LOINC) Tacrolimus 4.6 <=15.0 ng/mL Performed By: #### 05867-4 # ### JASON Morales ([id number]) [facility] ([facility]) [address] [place] [address] COMPLETE BLOOD COUNT PANEL Collected: 11/24/2024 12:4 6 PM Status: F Source: [facility] TYPE CODE TESTS RESULT OUT OF RANGE REFERENCE UNITS LAB 6690-2(LOINC) Leukocytes 5.0 4.4-11.3 x10*3/ uL LAB 48420-1(LOINC) Erythrocytes.nuc l eated/100 leukocytes 0.0 0.0-0.0 /100 WBCs LAB 789-8(LOINC) Erythrocytes 3.35 Low 4.50-5.90 x10* 6/uL LAB 718-7(LOINC) Hemoglobin 8.2 Low 13.5-17.5 g/dL LAB 4544-3(LOINC) Hematocrit 26.5 Low 41.0-52.0 % LAB 787-2(LOINC) Erythrocyte mean corpuscular volume 79 Low 80-100 fL LAB 785-6(LOINC) Erythrocyte mean corpuscular hemoglobin 24.5 Low 26.0-34.0 pg LAB 786-4(LOINC) Erythrocyte mean corpuscular hemoglobin concentration 30.9 Low 32.0-36.0 g/dL LAB 788-0(LOINC) Erythrocyte distribution width 16.4 High 11.5-14.5 % LAB 777-3(LOINC) Platelets 140 Low 150-450 x10*3/uL Performed By: #### 67684-1 # ### JASON Morales ([id number]) [facility] ([facility]) [address] [place] [address] MAGNESIUM Collected: 12:46 PM Status: F Source: [facility] TYPE CODE TESTS RESULT OUT OF RANGE REFERENCE UNITS LAB 50991-7(LOINC) Magnesium 2.01 1.60-2.40 mg/dL Performed By: #### 14020-6 # ### JASON SCHMOTZER L ([id number]) [facility] ([facility]) [address] [place] [address] RENAL FUNCTION 2000 PANEL Collected: 12:46 PM Status: F Source: [facility] TYPE CODE TESTS RESULT OUT OF RANGE REFERENCE UNITS LAB 2345-7(LOINC) Glucose 61 Low 74-99 mg/dL LAB 2951-2(LOINC) Sodium 140 136-145 mmol/L LAB 2823-3(LOINC) Potassium 5.2 3.5-5.3 mmol/L LAB 2075-0(LOINC) Chloride 102 98-107 mmol/L LAB 8-9(LOINC) Carbon dioxide 29 21-32 mmo l/L LAB 08538-6(LOINC) Anion gap 14 10-20 mmol/L LAB 3094-0(LOINC) Urea nitrogen 74 High 6-23 mg/d L LAB 2160-0(LOINC) Creatinine 4.50 High 0.50-1.30 mg/dL LAB 34034-4(LOINC) Glomerular filtration rate/1.73 sq M.predicted 15 Low >60 mL/min/1 .73m*2 Result Comment: Calculations of estimated GFR are performed using the 2020 CKD- EPI Study Refit equation without the race variable for the IDMS-Traceable creatinine methods. https://jasn.asnjournals.org/content/early//ASN.4906583823 LAB 48421-3(LOINC) Calcium 9.1 8.6-10.6 mg/dL LAB 2777-1(LOINC) Phosphate 4.2 2.5-4.9 mg/dL LAB 17159-6(LOINC) Albumin 3.7 3.4-5.0 g/dL Performed By: #### 39328-0 # ### JASON Morales ([id number]) [facility] ([facility]) [address] [place] [address] SURGICAL PATHOLOGY STUDY Observed: 11/23 11:28 AM Status: F Source: [facility] Pathology report.total SEE COMMENT Surgical Pathology Case: [id number] Authorizing Provider: Lambert Brothers MD Collected: 11/23/2024 1128 Ordering Location: [facility] Received: 11/23/2024 1149 Center Pathologist: Stacy Garrido MD Specimen: KIDNEY TRANSPLANT BIOPSY RIGHT Path report.final diagnosis SEE COMMENT KIDNEY ALLOGRAFT, RIGHT ILIAC FOSSA, PERCUTANEOUS CORE BIOPSY: -- DIFFUSE ACUTE TUBULAR INJURY -- CHANGES SUSPICIOUS (BORDERLINE) FOR ACUTE T CELL-MEDIATED REJECTION -- MILD ARTERIOLAR HYALINOSIS AND SEVERE ARTERIOSCLEROSIS -- LOW GRADE IgA MESANGIAL DEPOSITS BY IMMUNOFLUORESCENCE (SEE COMMENT) Specimen adequacy - Adequate and more than 2 arteries for light microscopy. [employer] Working Classification - t2, i1; v0; cg0; ci1; ct1; ti1; i-IFTA1; cv3; ah1; g1; ptc0; C4d0 (Luxembourger J transplant. The [employer] 2019 Kidney Meeting Report. 2020; 20: 2318) C4d negative (No staining of interstitial capillaries by immunofluorescence with appropriate controls). at 1625 EDT Laboratory comment By the signature on this report, the individual or group listed as making the Final Interpretation/Diagnosis certifies that they have reviewed this case. Path report.comments SEE COMMENT The biopsy consists of 27 glomeruli by light microscopy, of which 6 are globally sclerosed, with approximately 10% interstitial fibrosis. There is mild arteriolar hyalinosis and severe arteriosclerosis. In addition, there is interstitial edema and diffuse acute tubular injury with wrinkling of tubular basement membranes, which may suggest an ischemic etiology. There is mild interstitial inflammation and scattered tubulitis which appears focally moderate. There is no endothelialitis. Thus, the findings are suspicious (borderline) for acute T cell-mediated rejection. There is no significant microvascular inflammation and C4d is negative in interstitial capillaries by IF; thus, there are no diagnostic findings of acute antibody-mediated rejection. Immunofluorescence shows weak mesangial staining for IgA with lesser IgM, C3, and lambda. There is focal segmental mesangial hypercellularity. These findings are consistent with donor-derived injury, though early recurrence of primary disease or de rosie disease cannot entirely be excluded. Path report.relevant Hx SEE COMMENT 54 y.o. with a history of ESRD secondary to hypertension, RCA 50% stenosis and prior LAD stent. Delayed graft function. 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 Path report.gross observation SEE COMMENT A: Received fresh, labeled with the patient's name and hospital number and kidney transplant biopsy, right", are two cylindrical segments of solorzano soft tissue measuring 2.2 cm, and 1.9 cm in length by < 0.1 cm in diameter. Multiple (10-25) glomeruli are identified. A portion is frozen for direct immunofluorescence. A portion is submitted in glutaraldehyde for electron microscopy. The remainder of the specimen is submitted in one cassette. [facility] [place] of Cassettes: Specimen Label Site A 1 light microscopy 3 Immunofluorescence Path report.microscopic observation SEE COMMENT LIGHT MICROSCOPY: Multiple sections of the biopsy are prepared, including 3 H&E, 3 PAS, 3 Lundberg' silver, and 1 Trichrome stained slides. The biopsy consists of 2 pieces of cortex, containing 27 glomeruli, 6 of which are globally sclerosed. There is focal segmental mild increase in mesangial matrix and cellularity. The glomerular basement membranes show the rare appearance of holes without corrugation, spikes, or splitting. One glomerulus shows segmental sclerosis with adhesion in an area of fibrosis. There are no crescents, fibrin or necrosis in Bennett's spaces. One glomerulus shows segmental endocapillary hypercellularity. There is no hyalinosis, fibrin, or necrosis of glomerular sylvie. There is approximately 10% interstitial fibrosis with proportional tubular atrophy. There is interstitial edema and a mild interstitial lymphocytic infiltrate in non-scarred areas. There are no interstitial neutrophils and rare eosinophils. There is scattered tubulitis that appears focally moderate. There are no viral cytopathic changes. There is diffuse acute tubular injury with wrinkling of glomerular basement membranes. There are occasional proteinaceous casts, one calcium phosphate crystal, and no polarizable material. Arterioles show mild hyalinosis. Interlobular arteries show severe intimal fibrosis. A large artery is present in tangential section with at least moderate intimal fibrosis. There is mild peritubular capillaritis involving less than 10% of profiles. There is no endothelialitis. IMMUNOFLUORESCENCE MICROSCOPY: Replicate frozen sections, containing 4 non- sclerosed glomeruli, are stained with antisera for IgG, IgA, IgM, C3, C1q, kappa, lambda, fibrinogen, albumin, and C4d. On a scale of 0-3+, there is diffuse global granular mesangial staining for IgA (trace-1+) and lambda (trace), diffuse segmental to global granular mesangial staining for IgM (trace), and diffuse segmental granular mesangial staining for C3 (trace). There is linear accentuation of glomerular and tubular basement membranes for IgM and albumin. Arterioles stain trace for C1q and 2+ for C3, the latter of which also shows granular tubular basement membranes. There is no specific staining for fibrinogen. C4d is negative in interstitial capillaries. There is no nuclear or tubular basement membrane staining. The negative control for IF is negative. ELECTRON MICROSCOPY: In this clinical setting with the above mentioned histologic findings, electron microscopy is not performed. Tissue will be held in glutaraldehyde for 3 months, during which time EM may be performed if clinically indicated. Findings relayed to clinical team via email on 11/24/2024 at 4:16 PM. LAB AP ASR DISCLAIMER One or more of the reagents used to perform assays on this specimen MAY have contained components considered to be analyte specific reagents (ASR's). ASR's have not been cleared or approved by the U.S. Food and Drug Administration. These assays were developed and their performance characteristics determined by the Department of Pathology at [facility]. The FDA does not require this test to go through premarket FDA review. This test is used for clinical purposes. It should not be regarded as investigational or for research. This laboratory is certified under the Clinical Laboratory Improvement Amendments (CLIA) as qualified to perform high complexity clinical laboratory testing. The assays were performed with appropriate positive and negative controls which stained appropriately. US RENAL TRANSPLANT BIOPSY Observed: 10:16 AM Status: F Source: [facility] Interpreted By: Jaylen Carson and Benza Andrew STUDY: US RENAL TRANSPLANT BIOPSY; 11/23/2024 11:28 am INDICATION: Signs/Symptoms:DGF s/p kidney transplant. ,T86.19 Other complication of kidney transplant COMPARISON: None. ACCESSION NUMBER(S): [id number] ORDERING CLINICIAN: LAMBERT BROTHERS TECHNIQUE: INTERVENTIONALIST(S): MD Shashi Taylor MD CONSENT: The patient/patient's POA/next of kin was informed of the nature of the proposed procedure. The purposes, alternatives, risks, and benefits were explained and discussed. All questions were answered and consent was obtained. SEDATION: Moderate conscious IV sedation services (supervision of administration, induction, and maintenance) were provided by the physician performing the procedure with intravenous fentanyl 50mcg and versed 1mg from 0494-2759. The physician was assisted by an independent [...] for purposes of needle guidance, which demonstrated a sonographically unremarkable transplant kidney.. The area of concern was prepped and [...] successful ultrasound guided core needle biopsy of a right lower quadrant transplant kidney. Specimen(s) Sent to pathology. I was present for and/or performed the critical portions of the procedure and immediately available throughout the entire procedure. I personally reviewed the image(s) / study and interpretation. I agree with the findings as stated. Performed and dictated at [facility]. MACRO: None. Signed by: Tracy Carson 11/25/2024 8:24 AM Dictation workstation: [id number] COMPLETE BLOOD COUNT PANEL Collected: 11/22/2024 7:37 AM Status: F Source: [facility] TYPE CODE TESTS RESULT OUT OF RANGE REFERENCE UNITS LAB 6690-2(LOINC) Leukocytes 5.2 4.4-11.3 x10*3/ uL LAB 55810-4(LOINC) Erythrocytes.nuc l eated/100 leukocytes 0.0 0.0-0.0 /100 WBCs LAB 789-8(LOINC) Erythrocytes 3.24 Low 4.50-5.90 x10* 6/uL LAB 718-7(LOINC) Hemoglobin 8.0 Low 13.5-17.5 g/dL LAB 4544-3(LOINC) Hematocrit 25.7 Low 41.0-52.0 % LAB 787-2(LOINC) Erythrocyte mean corpuscular volume 79 Low 80-100 fL LAB 785-6(LOINC) Erythrocyte mean corpuscular hemoglobin 24.7 Low 26.0-34.0 pg LAB 786-4(LOINC) Erythrocyte mean corpuscular hemoglobin concentration 31.1 Low 32.0-36.0 g/dL LAB 788-0(LOINC) Erythrocyte distribution width 16.4 High 11.5-14.5 % LAB 777-3(LOINC) Platelets 125 Low 150-450 x10*3/uL Performed By: #### 21691-8 # ### JASON Morales ([id number]) [facility] ([facility]) [address] [place], [place] [id number] MAGNESIUM Collected: 7:37 AM Status: F Source: [facility] TYPE CODE TESTS RESULT OUT OF RANGE REFERENCE UNITS LAB 57977-2(LOINC) Magnesium 1.98 1.60-2.40 mg/dL Performed By: #### 45622-9 # ### JASON SUTHERLANDER Foreign ([id number]) [facility] ([facility]) [id number] [place], [place] [id number] RENAL FUNCTION 2000 PANEL Collected: 7:37 AM Status: F Source: [facility] TYPE CODE TESTS RESULT OUT OF RANGE REFERENCE UNITS LAB 2345-7(LOINC) Glucose 133 High 74-99 mg/dL LAB 2951-2(LOINC) Sodium 137 136-145 mmol/L LAB 2823-3(LOINC) Potassium 3.8 3.5-5.3 mmol/L LAB 2075-0(LOINC) Chloride 103 98-107 mmol/L LAB 2027-9(LOINC) Carbon dioxide 23 21-32 mmo l/L LAB 84491-1(LOINC) Anion gap 15 10-20 mmol/L LAB 3094-0(LOINC) Urea nitrogen 85 High 6-23 mg/d L LAB 2160-0(LOINC) Creatinine 6.43 High 0.50-1.30 mg/dL LAB 20251-9(LOINC) Glomerular filtration rate/1.73 sq M.predicted 9 Low >60 mL/min/1 .73m*2 Result Comment: Calculations of estimated GFR are performed using the 2020 CKD- EPI Study Refit equation without the race variable for the IDMS-Traceable creatinine methods. https://jasn.asnjournals.org/content///ASN.4368060830 LAB 47938-7(LOINC) Calcium 8.3 Low 8.6-10.6 mg/dL LAB 2777-1(LOINC) Phosphate 5.0 High 2.5-4.9 mg/dL LAB 27890-0(LOINC) Albumin 3.5 3.4-5.0 g/dL Performed By: #### 85187-4 # ### JASON Morales ([id number]) [facility] ([facility]) [address] [place] [address] TACROLIMUS Collected: 7:37 AM Status: F Source: [facility] Order Comment: NOTE: Result was obtained using a chemiluminescent microparticle immunoassay (CMIA) on the [employer] Hardware Analyst i system. Optimal therapeutic ranges for immunosuppressant drugs depend upon an individual patient's current clinical state, type of organ transplant, time post-transplant, co-administration of other immunosuppressants, and other clinical factors. The results of this test should be correlated with additional clinical and laboratory data before changes in treatment regimens are made. TYPE CODE TESTS RESULT OUT OF RANGE REFERENCE UNITS LAB 76451-9(LOINC) Tacrolimus 15.5 High <=15.0 ng/mL Performed By: #### 63844-9 # ### JASON Morales ([id number]) [facility] ([facility]) [address] [place] [address] PROTEIN Collected: 8:53 AM Status: F Source: [facility] TYPE CODE TESTS RESULT OUT OF RANGE REFERENCE UNITS LAB 97059-6(LOINC) Protein 76 High 5-25 mg/dL LAB 2161-8(LOINC) Creatinine 148.9 20.0-370.0 mg/d L LAB 2890-2(LOINC) Protein/Creati nine 0.51 High 0.00-0.17 mg/mg Creat Performed By: #### 64449-4 # ### JASON Morales ([id number]) [facility] ([facility]) [address] [place] [address] CYTOMEGALOVIRUS DNA Collected: 11/19/2024 8:[address] atus: F Source: [facility] Order Comment: Reportable Ra nge: 35-10,000,000 IU/mL. The sophie CMV test is [...] the test result will be reported as "<35 Detected" or ">10,000,000 Detected". The sophie CMV is intended for use [...] the Molecular Diagnostic Laboratory, Department of Pathology, [facility]. TYPE CODE TESTS RESULT OUT OF RANGE REFERENCE UNITS LAB CMVIL CYTOMEGALOVIRUS DNA, PCR LOG IU/ML Result Comment: Not calculat ed LAB CMVDNAR CMV DNA RESULT Not Detected No t Detected Performed By: #### 36800-5 # ### JASON Morales ([id number]) [facility] ([facility]) [address] [place] [address] JOSELUIS ARGUETA VIRUS DNA Collected: 11/19 8:53 AM Status: F Source: [facility] Order Comment: Reportable Ra nge: 35-100,000,000 IU/mL. The sophie EBV test is [...] the test result will be reported as "<35 Detected" or ">100,000,000 Detected". The sophie EBV test is intended for [...] the Molecular Diagnostic Laboratory, Department of Pathology, [facility]. TYPE CODE TESTS RESULT OUT OF RANGE REFERENCE UNITS LAB EBVDNAR EBV DNA RESULT Not Detected Not Detected LAB EBPIL EBV PCR PLASMA LOG IU/ML Result Comment: Not calculat ed Performed By: #### 91841-2 # ### JASON Morales ([id number]) [facility] ([facility]) [address] [place] [address] BK VIRUS DNA Collected: 5 8:53 AM Status: F Source: [facility] Order Comment: Reportable ra nge: 21.5-100,000,000 IU/mL The sophie BKV is an in vitro nucleic [...] to be 21.5 to 100,000,000 IU/ml in plasma. As with [...] the test result will be reported as "<21.5 Detected" or ">100,000,000 Detected". The sophie BKV is intended for use as [...] the Molecular Diagnostic Laboratory, Department of Pathology, [facility]. TYPE CODE TESTS RESULT OUT OF RANGE REFERENCE UNITS LAB BKVLO BK VIRUS LOG PCR Result Comment: Not calculat ed LAB BKDNA BKV DNA RESULT Not Detected Not Detected Performed By: #### 03023-5 # ### JASON Morales ([id number]) [facility] ([facility]) [id number] [place] [address] HIV 1 RNA Collected: 8:47 AM Status: F Source: [facility] Order Comment: Performed at: - [employer] [address] [place] [address] [phone] Internet Marketing Intern: Juarez Ayala [facility], Phone: [phone] TYPE CODE TESTS RESULT OUT OF RANGE REFERENCE UNITS LAB 59860-1([facility]) HIV 1 RNA Comment Non Reactive Result Comment: Non-Reactive for HIV RNA Non-Reactive for HCV RNA Non-Reactive for HBV DNA Test performed with [employer] Ultrio Elite Assay Kit. Performed By: #### 66835-2 # ### [facility] (JANEE) ([id number]) [address] [place] [address]1371 COAGULATION TISSUE FACTOR INDUCED Collected: 11/19/2024 8:45 AM Status: F Source: [facility] TYPE CODE TESTS RESULT OUT OF RANGE REFERENCE UNITS LAB 5902-2(LOINC) Coagulation tissue factor induced 12.2 9.8-12.4 seconds LAB 6301-6(LOINC) Coagulation tissue factor induced.INR 1.1 0.9-1.1 NA Performed By: #### 5902-2 ## ## JASON Morales ([id number]) [facility] ([facility]) [address] [place] [address] HLA TRANSPLANT ANTIBODY PANEL Collected : 11/19/2024 8:44 AM Status: F Source: [facility] Order Comment: Test performe d at: [facility] Histocompatibility and Immunogenetics Laboratory [facility], 6th Floor [address] [place], [place] [id number] TYPE CODE TESTS RESULT OUT OF RANGE REFERENCE UNITS LAB 76684-8(LOINC) HLA-A+B+C Ab LAB 95915-9([facility]) HLA-DP+DQ+DR Ab LAB HLARES HLA RESULTS See Attached Performed By: #### HLANTI ## ## ANTHONY Dunbar ([id number]) HLA LAB ([facility]) [address] [place] [id number] COMPLETE BLOOD COUNT PANEL Collected: 11/17/2024 8:08 AM Status: F Source: [facility] Order Comment: Before Hemodi alysis TYPE CODE TESTS RESULT OUT OF RANGE REFERENCE UNITS LAB 6690-2(LOINC) Leukocytes 3.7 Low 4.4-11.3 x10*3/ uL LAB 61237-8(LOINC) Erythrocytes.nuc leated/100 leukocytes 0.0 0.0-0.0 /100 WBCs LAB 789-8(LOINC) Erythrocytes 3.49 Low 4.50-5.90 x10* 6/uL LAB 718-7(LOINC) Hemoglobin 8.3 Low 13.5-17.5 g/dL LAB 4544-3(LOINC) Hematocrit 28.1 Low 41.0-52.0 % LAB 787-2(LOINC) Erythrocyte mean corpuscular volume 81 80-100 fL LAB 785-6(LOINC) Erythrocyte mean corpuscular hemoglobin 23.8 Low 26.0-34.0 pg LAB 786-4(LOINC) Erythrocyte mean corpuscular hemoglobin concentration 29.5 Low 32.0-36.0 g/dL LAB 788-0(LOINC) Erythrocyte distribution width 16.8 High 11.5-14.5 % LAB 777-3(LOINC) Platelets 152 150-450 x10*3/uL Performed By: #### 38209-4 # ### JASON Morales ([id number]) [facility] ([facility]) [address] [place] [address] MAGNESIUM Collected: 8:08 AM Status: F Source: [facility] Order Comment: Before Hemodi alysis TYPE CODE TESTS RESULT OUT OF RANGE REFERENCE UNITS LAB 70946-9(LOINC) Magnesium 1.95 1.60-2.40 mg/dL Performed By: #### 96406-1 # ### JASON Morales ([id number]) [facility] ([facility]) [address] [place] [id number] RENAL FUNCTION 2000 PANEL Collected: 8:08 AM Status: F Source: [facility] Order Comment: Before Hemodi alysis TYPE CODE TESTS RESULT OUT OF RANGE REFERENCE UNITS LAB 2345-7(LOINC) Glucose 203 High 74-99 mg/dL LAB 2951-2(LOINC) Sodium 137 136-145 mmol/L LAB 2823-3(LOINC) Potassium 4.0 3.5-5.3 mmol/L LAB 2075-0(LOINC) Chloride 101 98-107 mmol/L LAB 8-9(LOINC) Carbon dioxide 24 21-32 mmo l/L LAB 05914-8(LOINC) Anion gap 16 10-20 mmol/L LAB 3094-0(LOINC) Urea nitrogen 54 High 6-23 mg/d L LAB 2160-0(LOINC) Creatinine 4.31 High 0.50-1.30 mg/dL LAB 21527-8(LOINC) Glomerular filtration rate/1.73 sq M.predicted 15 Low >60 mL/min/1 .73m*2 Result Comment: Calculations of estimated GFR are performed using the 2020 CKD- EPI Study Refit equation without the race variable for the IDMS-Traceable creatinine methods. https://jasn.asnjournals.org/content//ASN.8640395901 LAB 51852-6(LOINC) Calcium 8.3 Low 8.6-10.6 mg/dL LAB 2777-1(LOINC) Phosphate 4.3 2.5-4.9 mg/dL LAB 11996-8(LOINC) Albumin 3.4 3.4-5.0 g/dL Performed By: #### 10334-8 # ### JASON Morales ([id number]) [facility] ([facility]) [address] [place] [address] TACROLIMUS Collected: 8:08 AM Status: F Source: [facility] Order Comment: Before Hemodi alysis NOTE: Result was obtained using a chemiluminescent microparticle immunoassay (CMIA) on the [employer] Hardware Analyst i system. Optimal therapeutic ranges for immunosuppressant drugs depend upon an individual patient's current clinical state, type of organ transplant, time post-transplant, co-administration of other immunosuppressants, and other clinical factors. The results of this test should be correlated with additional clinical and laboratory data before changes in treatment regimens are made. TYPE CODE TESTS RESULT OUT OF RANGE REFERENCE UNITS LAB 83301-5(LOINC) Tacrolimus 5.0 <=15.0 ng/mL Performed By: #### 84718-7 # ### JASON Morales ([id number]) [facility] ([facility]) [address] [place] [address] GLUCOSE Collected: 10:09 AM Status: F Source: [facility] TYPE CODE TESTS RESULT OUT OF RANGE REFERENCE UNITS LAB 2341-6(LOINC) Glucose 138 High 74-99 mg/dL Performed By: #### 2341-6 ## ## JASON CLARKMOTZER L ([id number]) [facility] ([facility]) [address] [place] [address] COMPLETE BLOOD COUNT PANEL Collected: 11/15/2024 7:11 AM Status: F Source: [facility] Order Comment: Before Hemodi alysis TYPE CODE TESTS RESULT OUT OF RANGE REFERENCE UNITS LAB 6690-2(LOINC) Leukocytes 3.4 Low 4.4-11.3 x10*3/ uL LAB 99029-2(LOINC) Erythrocytes.nuc leated/100 leukocytes 0.0 0.0-0.0 /100 WBCs LAB 789-8(LOINC) Erythrocytes 3.26 Low 4.50-5.90 x10* 6/uL LAB 718-7(LOINC) Hemoglobin 7.9 Low 13.5-17.5 g/dL LAB 4544-3(LOINC) Hematocrit 26.6 Low 41.0-52.0 % LAB 787-2(LOINC) Erythrocyte mean corpuscular volume 82 80-100 fL LAB 785-6(LOINC) Erythrocyte mean corpuscular hemoglobin 24.2 Low 26.0-34.0 pg LAB 786-4(LOINC) Erythrocyte mean corpuscular hemoglobin concentration 29.7 Low 32.0-36.0 g/dL LAB 788-0(LOINC) Erythrocyte distribution width 17.0 High 11.5-14.5 % LAB 777-3(LOINC) Platelets 125 Low 150-450 x10*3/uL Performed By: #### 07267-5 # ### JASON Morales ([id number]) [facility] ([facility]) [address] [place] [address] MAGNESIUM Collected: 7:11 AM Status: F Source: [facility] Order Comment: Before Hemodi alysis TYPE CODE TESTS RESULT OUT OF RANGE REFERENCE UNITS LAB 86276-5([facility]) Magnesium 2.10 1.60-2.40 mg/dL Performed By: #### 41460-1 # ### JASON Morales ([id number]) [facility] ([facility]) [address] [place] [address] RENAL FUNCTION 2000 PANEL Collected: 7:11 AM Status: F Source: [facility] Order Comment: Before Hemodi alysis TYPE CODE TESTS RESULT OUT OF RANGE REFERENCE UNITS LAB 2345-7(LOINC) Glucose 549 High Alert 74-99 mg/dL LAB 2951-2(LOINC) Sodium 134 Low 136-145 mmol/L LAB 2823-3(LOINC) Potassium 5.0 3.5-5.3 mmol/L LAB 2075-0(LOINC) Chloride 101 98-107 mmol/L LAB 2027-9(LOINC) Carbon dioxide 23 21-32 mmo l/L LAB 64843-4(LOINC) Anion gap 15 10-20 mmol/L LAB 3094-0(LOINC) Urea nitrogen 72 High 6-23 mg/d L LAB 2160-0(LOINC) Creatinine 4.71 High 0.50-1.30 mg/dL LAB 13607-9(LOINC) Glomerular filtration rate/1.73 sq M.predicted 14 Low >60 mL/min/1 .73m*2 Result Comment: Calculations of estimated GFR are performed using the 2020 CKD- EPI Study Refit equation without the race variable for the IDMS-Traceable creatinine methods. https://jasn.asnjournals.org/content/early//ASN.3720897210 LAB 54789-4(LOINC) Calcium 8.3 Low 8.6-10.6 mg/dL LAB 2777-1(LOINC) Phosphate 4.9 2.5-4.9 mg/dL LAB 36130-5(LOINC) Albumin 3.4 3.4-5.0 g/dL Performed By: #### 42351-7 # ### JASON Morales ([id number]) [facility] ([facility]) [address] [place] [address] TACROLIMUS Collected: 7:11 AM Status: F Source: [facility] Order Comment: Before Hemodi alysis NOTE: Result was obtained using a chemiluminescent microparticle immunoassay (CMIA) on the [employer] Hardware Analyst i system. Optimal therapeutic ranges for immunosuppressant drugs depend upon an individual patient's current clinical state, type of organ transplant, time post-transplant, co-administration of other immunosuppressants, and other clinical factors. The results of this test should be correlated with additional clinical and laboratory data before changes in treatment regimens are made. TYPE CODE TESTS RESULT OUT OF RANGE REFERENCE UNITS LAB 66609-0(LOINC) Tacrolimus 3.8 <=15.0 ng/mL Performed By: #### 60973-0 # ### JASON Morales ([id number]) [facility] ([facility]) [address] [place], [place] [id number] COMPLETE BLOOD COUNT PANEL Collected: 11/12/2024 5:40 PM Status: F Source: [facility] Order Comment: Before Hemodi alysis TYPE CODE TESTS RESULT OUT OF RANGE REFERENCE UNITS LAB 6690-2(LOINC) Leukocytes 3.2 Low 4.4-11.3 x10*3/ uL LAB 81128-5(LOINC) Erythrocytes.nuc leated/100 leukocytes 0.0 0.0-0.0 /100 WBCs LAB 789-8(LOINC) Erythrocytes 3.35 Low 4.50-5.90 x10* 6/uL LAB 718-7(LOINC) Hemoglobin 8.3 Low 13.5-17.5 g/dL LAB 4544-3(LOINC) Hematocrit 27.3 Low 41.0-52.0 % LAB 787-2(LOINC) Erythrocyte mean corpuscular volume 82 80-100 fL LAB 785-6(LOINC) Erythrocyte mean corpuscular hemoglobin 24.8 Low 26.0-34.0 pg LAB 786-4(LOINC) Erythrocyte mean corpuscular hemoglobin concentration 30.4 Low 32.0-36.0 g/dL LAB 788-0(LOINC) Erythrocyte distribution width 17.1 High 11.5-14.5 % LAB 777-3(LOINC) Platelets 130 Low 150-450 x10*3/uL Performed By: #### 02481-7 # ### JASON Morales ([id number]) [facility] ([facility]) [address] [place] [address] MAGNESIUM Collected: 5:40 PM Status: F Source: [facility] Order Comment: Before Hemodi alysis TYPE CODE TESTS RESULT OUT OF RANGE REFERENCE UNITS LAB 81051-8(LOINC) Magnesium 1.95 1.60-2.40 mg/dL Performed By: #### 26871-1 # ### JASON Morales ([id number]) [facility] ([facility]) [address] [place] [address] RENAL FUNCTION 2000 PANEL Collected: 5:40 PM Status: F Source: [facility] Order Comment: Before Hemodi alysis TYPE CODE TESTS RESULT OUT OF RANGE REFERENCE UNITS LAB 2345-7(LOINC) Glucose 379 High 74-99 mg/dL LAB 2951-2(LOINC) Sodium 133 Low 136-145 mmol/L LAB 2823-3(LOINC) Potassium 5.6 High 3.5-5.3 mmol/L LAB 2075-0(LOINC) Chloride 99 98-107 mmol/L LAB 2028-9(LOINC) Carbon dioxide 22 21-32 mmo l/L LAB 01765-4(LOINC) Anion gap 18 10-20 mmol/L LAB 3094-0(LOINC) Urea nitrogen 73 High 6-23 mg/d L LAB 2160-0(LOINC) Creatinine 6.09 High 0.50-1.30 mg/dL LAB 80307-9(LOINC) Glomerular filtration rate/1.73 sq M.predicted 10 Low >60 mL/min/1 .73m*2 Result Comment: Calculations of estimated GFR are performed using the 2020 CKD- EPI Study Refit equation without the race variable for the IDMS-Traceable creatinine methods. https://jasn.asnjournals.org/content///ASN.3968633071 LAB 70530-6(LOINC) Calcium 7.7 Low 8.6-10.6 mg/dL LAB 2777-1(LOINC) Phosphate 5.2 High 2.5-4.9 mg/dL LAB 44234-0(LOINC) Albumin 3.3 Low 3.4-5.0 g/dL Performed By: #### 24627-5 # ### JASON Morales ([id number]) [facility] ([facility]) [address] [place] [address] TACROLIMUS Collected: 5 5:40 PM Status: F Source: [facility] Order Comment: Before Hemodi alysis NOTE: Result was obtained using a chemiluminescent microparticle immunoassay (CMIA) on the [employer] Hardware Analyst i system. Optimal therapeutic ranges for immunosuppressant drugs depend upon an individual patient's current clinical state, type of organ transplant, time post-transplant, co-administration of other immunosuppressants, and other clinical factors. The results of this test should be correlated with additional clinical and laboratory data before changes in treatment regimens are made. TYPE CODE TESTS RESULT OUT OF RANGE REFERENCE UNITS LAB 66736-8(LOINC) Tacrolimus 9.3 <=15.0 ng/mL Performed By: #### 22752-4 # ### JASON Morales ([id number]) [facility] ([facility]) [id number] [place] [address] PROGRESS Observed: 11/11/2024 4:34 PM Status: COMPLETED Source: [facility] HNO ID: [id number] Author: LETITIA BLANCO MA Service: ? Author Type: Software Project Engineer Type: Progress Notes Filed: 11/11/2024 16:39 Note Text: Outside A1c received, updated in chart. Letitia Blanco MA COMPLETE BLOOD COUNT PANEL Collected: 11/10/2024 6:45 AM Status: F Source: [facility] Order Comment: Before Hemodi alysis TYPE CODE TESTS RESULT OUT OF RANGE REFERENCE UNITS LAB 6690-2(LOINC) Leukocytes 2.9 Low 4.4-11.3 x10*3/ uL LAB 44717-1(LOINC) Erythrocytes.nuc leated/100 leukocytes 0.0 0.0-0.0 /100 WBCs LAB 789-8(LOINC) Erythrocytes 3.22 Low 4.50-5.90 x10* 6/uL LAB 718-7(LOINC) Hemoglobin 8.0 Low 13.5-17.5 g/dL LAB 4544-3(LOINC) Hematocrit 25.5 Low 41.0-52.0 % LAB 787-2(LOINC) Erythrocyte mean corpuscular volume 79 Low 80-100 fL LAB 785-6(LOINC) Erythrocyte mean corpuscular hemoglobin 24.8 Low 26.0-34.0 pg LAB 786-4(LOINC) Erythrocyte mean corpuscular hemoglobin concentration 31.4 Low 32.0-36.0 g/dL LAB 788-0(LOINC) Erythrocyte distribution width 17.4 High 11.5-14.5 % LAB 777-3(LOINC) Platelets 127 Low 150-450 x10*3/uL Performed By: #### 66922-0 # ### JASON Morales ([id number]) [facility] ([facility]) [address] [place] [address] MAGNESIUM Collected: 6:45 AM Status: F Source: [facility] Order Comment: Before Hemodi alysis TYPE CODE TESTS RESULT OUT OF RANGE REFERENCE UNITS LAB 86052-2(LOINC) Magnesium 2.07 1.60-2.40 mg/dL Performed By: #### 33500-5 # ### JASON Morales ([id number]) [facility] ([facility]) [address] [place] [address] RENAL FUNCTION 2000 PANEL Collected: 6:45 AM Status: F Source: [facility] Order Comment: Before Hemodi alysis TYPE CODE TESTS RESULT OUT OF RANGE REFERENCE UNITS LAB 2345-7(LOINC) Glucose 110 High 74-99 mg/dL LAB 2951-2(LOINC) Sodium 138 136-145 mmol/L LAB 2823-3(LOINC) Potassium 4.3 3.5-5.3 mmol/L LAB 2075-0(LOINC) Chloride 105 98-107 mmol/L LAB 8-9(LOINC) Carbon dioxide 22 21-32 mmo l/L LAB 32654-3(LOINC) Anion gap 15 10-20 mmol/L LAB 3094-0(LOINC) Urea nitrogen 73 High 6-23 mg/d L LAB 2160-0(LOINC) Creatinine 7.30 High 0.50-1.30 mg/dL LAB 83854-9(LOINC) Glomerular filtration rate/1.73 sq M.predicted 8 Low >60 mL/min/1 .73m*2 Result Comment: Calculations of estimated GFR are performed using the 2020 CKD- EPI Study Refit equation without the race variable for the IDMS-Traceable creatinine methods. https://jasn.asnjournals.org/content/early//ASN.8351590307 LAB 11228-4(LOINC) Calcium 7.9 Low 8.6-10.6 mg/dL LAB 2777-1(LOINC) Phosphate 5.3 High 2.5-4.9 mg/dL LAB 27653-2(LOINC) Albumin 3.3 Low 3.4-5.0 g/dL Performed By: #### 17383-2 # ### JASON Morales ([id number]) [facility] ([facility]) [address] [place] [address] COMPLETE BLOOD COUNT W AUTO DIFFERENTIAL PANEL Collected: 11/10/2024 6:45 AM Status: F Source: [facility] TYPE CODE TESTS RESULT OUT OF RANGE REFERENCE UNITS LAB 6690-2(LOINC) Leukocytes 2.9 Low 4.4-11.3 x10*3/ uL LAB 80562-0(LOINC ) Erythrocytes.nuc leated/100 leukocytes 0.0 0.0-0.0 /100 WBCs LAB 789-8(LOINC) Erythrocytes 3.22 Low 4.50-5.90 x10* 6/uL LAB 718-7(LOINC) Hemoglobin 8.0 Low 13.5-17.5 g/dL LAB 4544-3(LOINC) Hematocrit 25.5 Low 41.0-52.0 % LAB 787-2(LOINC) Erythrocyte mean corpuscular volume 79 Low 80-100 fL LAB 785-6(LOINC) Erythrocyte mean corpuscular hemoglobin 24.8 Low 26.0-34.0 pg LAB 786-4(LOINC) Erythrocyte mean corpuscular hemoglobin concentration 31.4 Low 32.0-36.0 g/dL LAB 788-0(LOINC) Erythrocyte distribution width 17.4 High 11.5-14.5 % LAB 777-3(LOINC) Platelets 127 Low 150-450 x10*3/uL LAB 770-8(LOINC) Neutrophils/100 leukocytes 83.6 40.0-80.0 % LAB 89704-9(LOINC ) Granulocytes.imm ature/100 leukocytes 0.7 0.0-0.9 % Result Comment: Immature Gra nulocyte Count (IG) includes promyelocytes, myelocytes and metamyelocytes but does not include bands. Percent differential counts (%) should be interpreted in the context of the absolute cell counts (cells/UL). LAB 736-9(LOINC) Lymphocytes/100 leukocytes 12.0 13.0-44.0 % LAB 5905-5(LOINC) Monocytes/100 leukocytes 1.7 2.0-10.0 % LAB 713-8(LOINC) Eosinophils/100 leukocytes 1.0 0.0-6.0 % LAB 706-2(LOINC) Basophils/100 leukocytes 1.0 0.0-2.0 % LAB 751-8(LOINC) Neutrophils 2.44 1.20-7.70 x10*3 /uL Result Comment: Percent diff erential counts (%) should be interpreted in the context of the absolute cell counts (cells/uL). LAB 02877-5(LOINC ) Granulocytes.imm ature 0.02 0.00-0.70 x10*3/uL LAB 731-0(LOINC) Lymphocytes 0.35 Low 1.20-4.80 x10*3 /uL LAB 742-7(LOINC) Monocytes 0.05 Low 0.10-1.00 x10*3/u L LAB 711-2(LOINC) Eosinophils 0.03 0.00-0.70 x10*3 /uL LAB 704-7(LOINC) Basophils 0.03 0.00-0.10 x10*3/u L Performed By: #### 76517-3 # ### JASON Morales ([id number]) [facility] ([facility]) [address] [place] [address] TACROLIMUS Collected: 6:45 AM Status: F Source: [facility] Order Comment: Before Hemodi alysis NOTE: Result was obtained using a chemiluminescent microparticle immunoassay (CMIA) on the [employer] Hardware Analyst i system. Optimal therapeutic ranges for immunosuppressant drugs depend upon an individual patient's current clinical state, type of organ transplant, time post-transplant, co-administration of other immunosuppressants, and other clinical factors. The results of this test should be correlated with additional clinical and laboratory data before changes in treatment regimens are made. TYPE CODE TESTS RESULT OUT OF RANGE REFERENCE UNITS LAB 30523-4(LOINC) Tacrolimus 13.7 <=15.0 ng/mL Performed By: #### 03849-5 # ### JASON Morales ([id number]) [facility] ([facility]) [address] [place], [place] [id number] COMPLETE BLOOD COUNT PANEL Collected: 11/08/2024 5:30 PM Status: F Source: [facility] Order Comment: Before Hemodi alysis TYPE CODE TESTS RESULT OUT OF RANGE REFERENCE UNITS LAB 6690-2(LOINC) Leukocytes 3.9 Low 4.4-11.3 x10*3/ uL LAB 94468-4(LOINC) Erythrocytes.nuc leated/100 leukocytes 0.0 0.0-0.0 /100 WBCs LAB 789-8(LOINC) Erythrocytes 3.52 Low 4.50-5.90 x10* 6/uL LAB 718-7(LOINC) Hemoglobin 8.6 Low 13.5-17.5 g/dL LAB 4544-3(LOINC) Hematocrit 27.9 Low 41.0-52.0 % LAB 787-2(LOINC) Erythrocyte mean corpuscular volume 79 Low 80-100 fL LAB 785-6(LOINC) Erythrocyte mean corpuscular hemoglobin 24.4 Low 26.0-34.0 pg LAB 786-4(LOINC) Erythrocyte mean corpuscular hemoglobin concentration 30.8 Low 32.0-36.0 g/dL LAB 788-0(LOINC) Erythrocyte distribution width 17.5 High 11.5-14.5 % LAB 777-3(LOINC) Platelets 150 150-450 x10*3/uL Performed By: #### 47636-6 # ### JASON Morales ([id number]) [facility] ([facility]) [address] [place] [address] MAGNESIUM Collected: 5:30 PM Status: F Source: [facility] Order Comment: Before Hemodi alysis TYPE CODE TESTS RESULT OUT OF RANGE REFERENCE UNITS LAB 60870-3(INC) Magnesium 2.17 1.60-2.40 mg/dL Performed By: #### 41890-1 # ### JASON Morales ([id number]) [facility] ([facility]) [address] [place] [address] RENAL FUNCTION 2000 PANEL Collected: 5:30 PM Status: F Source: [facility] Order Comment: Before Hemodi alysis TYPE CODE TESTS RESULT OUT OF RANGE REFERENCE UNITS LAB 2345-7(LOINC) Glucose 296 High 74-99 mg/dL LAB 2951-2(LOINC) Sodium 135 Low 136-145 mmol/L LAB 2823-3(LOINC) Potassium 5.2 3.5-5.3 mmol/L LAB 2075-0(LOINC) Chloride 107 98-107 mmol/L LAB 2028-9(LOINC) Carbon dioxide 17 Low 21-32 mmo l/L LAB 37249-6(LOINC) Anion gap 16 10-20 mmol/L LAB 3094-0(LOINC) Urea nitrogen 103 High Alert 6-23 mg/dL LAB 2160-0(LOINC) Creatinine 7.78 High 0.50-1.30 mg/dL LAB 08514-8(LOINC) Glomerular filtration rate/1.73 sq M.predicted 8 Low >60 mL/min/1 .73m*2 Result Comment: Calculations of estimated GFR are performed using the 2020 CKD- EPI Study Refit equation without the race variable for the IDMS-Traceable creatinine methods. https://jasn.asnjournals.org/content/early//ASN.4567861262 LAB 06427-6(LOINC) Calcium 8.3 Low 8.6-10.6 mg/dL LAB 2777-1(LOINC) Phosphate 7.1 High 2.5-4.9 mg/dL LAB 27228-4(LOINC) Albumin 3.5 3.4-5.0 g/dL Performed By: #### 33528-3 # ### JASON Morales ([id number]) [facility] ([facility]) [address] [place], [place] [id number] TACROLIMUS Collected: 5 5:30 PM Status: F Source: [facility] Order Comment: Before Hemodi alysis NOTE: Result was obtained using a chemiluminescent microparticle immunoassay (CMIA) on the [employer] Hardware Analyst i system. Optimal therapeutic ranges for immunosuppressant drugs depend upon an individual patient's current clinical state, type of organ transplant, time post-transplant, co-administration of other immunosuppressants, and other clinical factors. The results of this test should be correlated with additional clinical and laboratory data before changes in treatment regimens are made. TYPE CODE TESTS RESULT OUT OF RANGE REFERENCE UNITS LAB 87465-3([facility]) Tacrolimus 10.7 <=15.0 ng/mL Performed By: #### 27290-2 # ### JASON Morales ([id number]) [facility] ([facility]) [address] [place] [address] TACROLIMUS Collected: 8:44 AM Status: F Source: [facility] Order Comment: NOTE: Result was obtained using a chemiluminescent microparticle immunoassay (CMIA) on the [employer] Hardware Analyst i system. Optimal therapeutic ranges for immunosuppressant drugs depend upon an individual patient's current clinical state, type of organ transplant, time post-transplant, co-administration of other immunosuppressants, and other clinical factors. The results of this test should be correlated with additional clinical and laboratory data before changes in treatment regimens are made. TYPE CODE TESTS RESULT OUT OF RANGE REFERENCE UNITS LAB 54766-2(LOINC) Tacrolimus 10.2 <=15.0 ng/mL Performed By: #### 59593-6 # ### JASON Morales ([id number]) [facility] ([facility]) [address] [place] [address] COMPLETE BLOOD COUNT PANEL Collected: 11/06/2024 8:42 AM Status: F Source: [facility] TYPE CODE TESTS RESULT OUT OF RANGE REFERENCE UNITS LAB 6690-2(LOINC) Leukocytes 3.7 Low 4.4-11.3 x10*3/ uL LAB 80284-2(LOINC) Erythrocytes.nuc l eated/100 leukocytes 0.0 0.0-0.0 /100 WBCs LAB 789-8(LOINC) Erythrocytes 3.50 Low 4.50-5.90 x10* 6/uL LAB 718-7(LOINC) Hemoglobin 8.7 Low 13.5-17.5 g/dL LAB 4544-3(LOINC) Hematocrit 28.1 Low 41.0-52.0 % LAB 787-2(LOINC) Erythrocyte mean corpuscular volume 80 80-100 fL LAB 785-6(LOINC) Erythrocyte mean corpuscular hemoglobin 24.9 Low 26.0-34.0 pg LAB 786-4(LOINC) Erythrocyte mean corpuscular hemoglobin concentration 31.0 Low 32.0-36.0 g/dL LAB 788-0(LOINC) Erythrocyte distribution width 17.3 High 11.5-14.5 % LAB 777-3(LOINC) Platelets 126 Low 150-450 x10*3/uL Performed By: #### 85747-0 # ### TON MORAN ([id number]) [facility] ([facility]) [address] [place] [address] MAGNESIUM Collected: 8:42 AM Status: F Source: [facility] TYPE CODE TESTS RESULT OUT OF RANGE REFERENCE UNITS LAB 08457-0(LOINC) Magnesium 2.02 1.60-2.40 mg/dL Performed By: #### 82580-9 # ### TON MORAN ([id number]) [facility] ([facility]) [facility] [place] [address] RENAL FUNCTION 2000 PANEL Collected: 8:42 AM Status: F Source: [facility] TYPE CODE TESTS RESULT OUT OF RANGE REFERENCE UNITS LAB 2345-7(LOINC) Glucose 79 74-99 mg/dL LAB 2951-2(LOINC) Sodium 139 136-145 mmol/L LAB 2823-3(LOINC) Potassium 4.2 3.5-5.3 mmol/L LAB 2075-0(LOINC) Chloride 100 98-107 mmol/L LAB 2027-9(LOINC) Carbon dioxide 27 21-32 mmo l/L LAB 24732-3(LOINC) Anion gap 16 10-20 mmol/L LAB 3094-0(LOINC) Urea nitrogen 75 High 6-23 mg/d L LAB 2160-0(LOINC) Creatinine 7.69 High 0.50-1.30 mg/dL LAB 00070-2(LOINC) Glomerular filtration rate/1.73 sq M.predicted 8 Low >60 mL/min/1 .73m*2 Result Comment: Calculations of estimated GFR are performed using the 2020 CKD- EPI Study Refit equation without the race variable for the IDMS-Traceable creatinine methods. https://jasn.asnjournals.org/content///ASN.8906161196 LAB 25651-3(LOINC) Calcium 8.1 Low 8.6-10.3 mg/dL LAB 2777-1(LOINC) Phosphate 7.0 High 2.5-4.9 mg/dL LAB 37052-9(LOINC) Albumin 3.4 3.4-5.0 g/dL Performed By: #### 20549-5 # ### TON MORAN ([id number]) [facility] ([facility]) [address] [place] [address] MAGNESIUM Collected: 6:36 AM Status: F Source: [facility] Order Comment: Before Hemodi alysis TYPE CODE TESTS RESULT OUT OF RANGE REFERENCE UNITS LAB 36579-1(LOINC) Magnesium 2.18 1.60-2.40 mg/dL Performed By: #### 67231-6 # ### JASON Morales ([id number]) [facility] ([facility]) [id number] [place] [address] RENAL FUNCTION 2000 PANEL Collected: 6:36 AM Status: F Source: [facility] Order Comment: Before Hemodi alysis TYPE CODE TESTS RESULT OUT OF RANGE REFERENCE UNITS LAB 2345-7(LOINC) Glucose 127 High 74-99 mg/dL LAB 2951-2(LOINC) Sodium 137 136-145 mmol/L LAB 2823-3(LOINC) Potassium 4.3 3.5-5.3 mmol/L LAB 2075-0(LOINC) Chloride 100 98-107 mmol/L LAB 2028-9(LOINC) Carbon dioxide 24 21-32 mmo l/L LAB 98571-5(LOINC) Anion gap 17 10-20 mmol/L LAB 3094-0(LOINC) Urea nitrogen 62 High 6-23 mg/d L LAB 2160-0(LOINC) Creatinine 6.61 High 0.50-1.30 mg/dL LAB 55925-0(LOINC) Glomerular filtration rate/1.73 sq M.predicted 9 Low >60 mL/min/1 .73m*2 Result Comment: Calculations of estimated GFR are performed using the 2020 CKD- EPI Study Refit equation without the race variable for the IDMS-Traceable creatinine methods. https://jasn.asnjournals.org/content//ASN.9649238329 LAB 47599-8(LOINC) Calcium 8.2 Low 8.6-10.6 mg/dL LAB 2777-1(LOINC) Phosphate 5.4 High 2.5-4.9 mg/dL LAB 04894-1(LOINC) Albumin 3.6 3.4-5.0 g/dL Performed By: #### 43175-3 # ### JASON Morales ([id number]) [facility] ([facility]) [address] [place], [place] [id number] COMPLETE BLOOD COUNT PANEL Collected: 11/03/2024 6:36 AM Status: F Source: [facility] Order Comment: Before Hemodi alysis TYPE CODE TESTS RESULT OUT OF RANGE REFERENCE UNITS LAB 6690-2(LOINC) Leukocytes 5.9 4.4-11.3 x10*3/ uL LAB 97906-1(LOINC) Erythrocytes.nuc leated/100 leukocytes 0.0 0.0-0.0 /100 WBCs LAB 789-8(LOINC) Erythrocytes 3.65 Low 4.50-5.90 x10* 6/uL LAB 718-7(LOINC) Hemoglobin 9.1 Low 13.5-17.5 g/dL LAB 4544-3(LOINC) Hematocrit 28.5 Low 41.0-52.0 % LAB 787-2(LOINC) Erythrocyte mean corpuscular volume 78 Low 80-100 fL LAB 785-6(LOINC) Erythrocyte mean corpuscular hemoglobin 24.9 Low 26.0-34.0 pg LAB 786-4(LOINC) Erythrocyte mean corpuscular hemoglobin concentration 31.9 Low 32.0-36.0 g/dL LAB 788-0(LOINC) Erythrocyte distribution width 17.6 High 11.5-14.5 % LAB 777-3(LOINC) Platelets 161 150-450 x10*3/uL Performed By: #### 27416-8 # ### JASON Morales ([id number]) [facility] ([facility]) [address] [place] [address] TACROLIMUS Collected: 6:36 AM Status: F Source: [facility] Order Comment: Before Hemodi alysis NOTE: Result was obtained using a chemiluminescent microparticle immunoassay (CMIA) on the [employer] Hardware Analyst i system. Optimal therapeutic ranges for immunosuppressant drugs depend upon an individual patient's current clinical state, type of organ transplant, time post-transplant, co-administration of other immunosuppressants, and other clinical factors. The results of this test should be correlated with additional clinical and laboratory data before changes in treatment regimens are made. TYPE CODE TESTS RESULT OUT OF RANGE REFERENCE UNITS LAB 77282-0(LOINC) Tacrolimus 6.3 <=15.0 ng/mL Performed By: #### 55202-2 # ### JASON Morales ([id number]) [facility] ([facility]) [address] [place] [address] COMPLETE BLOOD COUNT PANEL Collected: 11/01/2024 7:00 AM Status: F Source: [facility] Order Comment: Before Hemodi alysis TYPE CODE TESTS RESULT OUT OF RANGE REFERENCE UNITS LAB 6690-2(LOINC) Leukocytes 5.6 4.4-11.3 x10*3/ uL LAB 57985-3(LOINC) Erythrocytes.nuc leated/100 leukocytes 0.0 0.0-0.0 /100 WBCs LAB 789-8(LOINC) Erythrocytes 3.69 Low 4.50-5.90 x10* 6/uL LAB 718-7(LOINC) Hemoglobin 9.0 Low 13.5-17.5 g/dL LAB 4544-3(LOINC) Hematocrit 28.8 Low 41.0-52.0 % LAB 787-2(LOINC) Erythrocyte mean corpuscular volume 78 Low 80-100 fL LAB 785-6(LOINC) Erythrocyte mean corpuscular hemoglobin 24.4 Low 26.0-34.0 pg LAB 786-4(LOINC) Erythrocyte mean corpuscular hemoglobin concentration 31.3 Low 32.0-36.0 g/dL LAB 788-0(LOINC) Erythrocyte distribution width 17.8 High 11.5-14.5 % LAB 777-3(LOINC) Platelets 126 Low 150-450 x10*3/uL Performed By: #### 83736-1 # ### JASON Morales ([id number]) [facility] ([facility]) [address] [place] [address] MAGNESIUM Collected: 7:00 AM Status: F Source: [facility] Order Comment: Before Hemodi alysis TYPE CODE TESTS RESULT OUT OF RANGE REFERENCE UNITS LAB 15785-9(LOINC) Magnesium 2.06 1.60-2.40 mg/dL Performed By: #### 72843-5 # ### JASON Morales ([id number]) [facility] ([facility]) [address] [place] [address] RENAL FUNCTION 2000 PANEL Collected: 7:00 AM Status: F Source: [facility] Order Comment: Before Hemodi alysis TYPE CODE TESTS RESULT OUT OF RANGE REFERENCE UNITS LAB 2345-7(LOINC) Glucose 250 High 74-99 mg/dL LAB 2951-2(LOINC) Sodium 135 Low 136-145 mmol/L LAB 2823-3(LOINC) Potassium 4.5 3.5-5.3 mmol/L LAB 2075-0(LOINC) Chloride 98 98-107 mmol/L LAB 2028-9(LOINC) Carbon dioxide 24 21-32 mmo l/L LAB 82065-0(LOINC) Anion gap 18 10-20 mmol/L LAB 3094-0(LOINC) Urea nitrogen 75 High 6-23 mg/d L LAB 2160-0(LOINC) Creatinine 7.78 High 0.50-1.30 mg/dL LAB 61479-3(LOINC) Glomerular filtration rate/1.73 sq M.predicted 8 Low >60 mL/min/1 .73m*2 Result Comment: Calculations of estimated GFR are performed using the 2020 CKD- EPI Study Refit equation without the race variable for the IDMS-Traceable creatinine methods. https://jasn.asnjournals.org/content//ASN.6477838911 LAB 73643-7(LOINC) Calcium 8.2 Low 8.6-10.6 mg/dL LAB 2777-1(LOINC) Phosphate 6.6 High 2.5-4.9 mg/dL LAB 28364-2(LOINC) Albumin 3.5 3.4-5.0 g/dL Performed By: #### 90011-1 # ### JASON Morales ([id number]) [facility] ([facility]) [address] [place] [address] TACROLIMUS Collected: 7:00 AM Status: F Source: [facility] Order Comment: Before Hemodi alysis NOTE: Result was obtained using a chemiluminescent microparticle immunoassay (CMIA) on the Computer [employer] Hardware Analyst i system. Optimal therapeutic ranges for immunosuppressant drugs depend upon an individual patient's current clinical state, type of organ transplant, time post-transplant, co-administration of other immunosuppressants, and other clinical factors. The results of this test should be correlated with additional clinical and laboratory data before changes in treatment regimens are made. TYPE CODE TESTS RESULT OUT OF RANGE REFERENCE UNITS LAB 42302-6(LOINC) Tacrolimus 14.1 <=15.0 ng/mL Performed By: #### 94570-6 # ### JASON Morales ([id number]) [facility] ([facility]) [address] [place] [address] COMPLETE BLOOD COUNT PANEL Collected: 10/29/2024 5:12 PM Status: F Source: [facility] Order Comment: Before Hemodi alysis TYPE CODE TESTS RESULT OUT OF RANGE REFERENCE UNITS LAB 6690-2(LOINC) Leukocytes 4.9 4.4-11.3 x10*3/ uL LAB 28837-5(LOINC) Erythrocytes.nuc leated/100 leukocytes 0.0 0.0-0.0 /100 WBCs LAB 789-8(LOINC) Erythrocytes 3.69 Low 4.50-5.90 x10* 6/uL LAB 718-7(LOINC) Hemoglobin 8.9 Low 13.5-17.5 g/dL LAB 4544-3(LOINC) Hematocrit 27.9 Low 41.0-52.0 % LAB 787-2(LOINC) Erythrocyte mean corpuscular volume 76 Low 80-100 fL LAB 785-6(LOINC) Erythrocyte mean corpuscular hemoglobin 24.1 Low 26.0-34.0 pg LAB 786-4(LOINC) Erythrocyte mean corpuscular hemoglobin concentration 31.9 Low 32.0-36.0 g/dL LAB 788-0(LOINC) Erythrocyte distribution width 18.1 High 11.5-14.5 % LAB 777-3(LOINC) Platelets 122 Low 150-450 x10*3/uL Performed By: #### 11115-7 # ### JASON Morales ([id number]) [facility] ([facility]) [address] [place] [address] MAGNESIUM Collected: 5:12 PM Status: F Source: [facility] Order Comment: Before Hemodi alysis TYPE CODE TESTS RESULT OUT OF RANGE REFERENCE UNITS LAB 79427-4(LOINC) Magnesium 2.09 1.60-2.40 mg/dL Performed By: #### 57395-1 # ### JASON Morales ([id number]) [facility] ([facility]) [address] [place] [address] RENAL FUNCTION 2000 PANEL Collected: 5:12 PM Status: F Source: [facility] Order Comment: Before Hemodi alysis TYPE CODE TESTS RESULT OUT OF RANGE REFERENCE UNITS LAB 2345-7(LOINC) Glucose 181 High 74-99 mg/dL LAB 2951-2(LOINC) Sodium 133 Low 136-145 mmol/L LAB 2823-3(LOINC) Potassium 4.4 3.5-5.3 mmol/L LAB 2075-0(LOINC) Chloride 95 Low 98-107 mmol/L LAB 2027-9(LOINC) Carbon dioxide 26 21-32 mmo l/L LAB 31578-4(LOINC) Anion gap 16 10-20 mmol/L LAB 3094-0(LOINC) Urea nitrogen 75 High 6-23 mg/d L LAB 2160-0(LOINC) Creatinine 8.55 High 0.50-1.30 mg/dL LAB 44332-1(LOINC) Glomerular filtration rate/1.73 sq M.predicted 7 Low >60 mL/min/1 .73m*2 Result Comment: Calculations of estimated GFR are performed using the 2020 CKD- EPI Study Refit equation without the race variable for the IDMS-Traceable creatinine methods. https://jasn.asnjournals.org/content///ASN.3209853932 LAB 25413-5(LOINC) Calcium 7.9 Low 8.6-10.6 mg/dL LAB 2777-1(LOINC) Phosphate 6.3 High 2.5-4.9 mg/dL LAB 88736-0(LOINC) Albumin 3.4 3.4-5.0 g/dL Performed By: #### 33097-4 # ### JASON Morales ([id number]) [facility] ([facility]) [address] [place] [id number] [place] Collected: 5:12 PM Status: F Source: [facility] Order Comment: Before Hemodi alysis NOTE: Result was obtained using a chemiluminescent microparticle immunoassay (CMIA) on the [employer] Analyst i system. Optimal therapeutic ranges for immunosuppressant drugs depend upon an individual patient's current clinical state, type of organ transplant, time post-transplant, co-administration of other immunosuppressants, and other clinical factors. The results of this test should be correlated with additional clinical and laboratory data before changes in treatment regimens are made. TYPE CODE TESTS RESULT OUT OF RANGE REFERENCE UNITS LAB 46429-9(LOINC) Tacrolimus 7.6 <=15.0 ng/mL Performed By: #### 36994-8 # ### JASON Morales ([id number]) [facility] ([facility]) [address] [place] [address] COMPLETE BLOOD COUNT PANEL Collected: 10/27/2024 7:34 AM Status: F Source: [facility] TYPE CODE TESTS RESULT OUT OF RANGE REFERENCE UNITS LAB 6690-2(LOINC) Leukocytes 5.8 4.4-11.3 x10*3/ uL LAB 63098-2(LOINC) Erythrocytes.nuc l eated/100 leukocytes 0.0 0.0-0.0 /100 WBCs LAB 789-8(LOINC) Erythrocytes 3.69 Low 4.50-5.90 x10* 6/uL LAB 718-7(LOINC) Hemoglobin 9.1 Low 13.5-17.5 g/dL LAB 4544-3(LOINC) Hematocrit 27.9 Low 41.0-52.0 % LAB 787-2(LOINC) Erythrocyte mean corpuscular volume 76 Low 80-100 fL LAB 785-6(LOINC) Erythrocyte mean corpuscular hemoglobin 24.7 Low 26.0-34.0 pg LAB 786-4(LOINC) Erythrocyte mean corpuscular hemoglobin concentration 32.6 32.0-36.0 g/dL LAB 788-0(LOINC) Erythrocyte distribution width 18.0 High 11.5-14.5 % LAB 777-3(LOINC) Platelets 113 Low 150-450 x10*3/uL Performed By: #### 37810-9 # ### JASON Morales ([id number]) [facility] ([facility]) [address] [place] [address] MAGNESIUM Collected: 7:34 AM Status: F Source: [facility] TYPE CODE TESTS RESULT OUT OF RANGE REFERENCE UNITS LAB 46668-5(LOINC) Magnesium 2.36 1.60-2.40 mg/dL Performed By: #### 02091-6 # ### JASON SUTHERLANDER L ([id number]) [facility] ([facility]) [address] [place] [address] RENAL FUNCTION 2000 PANEL Collected: 7:34 AM Status: F Source: [facility] TYPE CODE TESTS RESULT OUT OF RANGE REFERENCE UNITS LAB 2345-7(LOINC) Glucose 145 High 74-99 mg/dL LAB 2951-2(LOINC) Sodium 134 Low 136-145 mmol/L LAB 2823-3(LOINC) Potassium 4.0 3.5-5.3 mmol/L LAB 2075-0(LOINC) Chloride 96 Low 98-107 mmol/L LAB 8-9(LOINC) Carbon dioxide 23 21-32 mmo l/L LAB 70261-4(LOINC) Anion gap 19 10-20 mmol/L LAB 3094-0(LOINC) Urea nitrogen 96 High Alert 6-23 mg/dL LAB 2160-0(LOINC) Creatinine 10.43 High 0.50-1.30 mg/dL LAB 45505-8(LOINC) Glomerular filtration rate/1.73 sq M.predicted 5 Low >60 mL/min/1 .73m*2 Result Comment: Calculations of estimated GFR are performed using the 2020 CKD- EPI Study Refit equation without the race variable for the IDMS-Traceable creatinine methods. https://jasn.asnjournals.org/content///ASN.8411939617 LAB 40364-9(LOINC) Calcium 8.1 Low 8.6-10.6 mg/dL LAB 2777-1(LOINC) Phosphate 7.0 High 2.5-4.9 mg/dL LAB 60134-7(LOINC) Albumin 3.1 Low 3.4-5.0 g/dL Performed By: #### 96902-3 # ### JASON Morales ([id number]) [facility] ([facility]) [address] [place], [place] [id number] TACROLIMUS Collected: 7:34 AM Status: F Source: [facility] Order Comment: NOTE: Result was obtained using a chemiluminescent microparticle immunoassay (CMIA) on the [employer] Hard[employer] Analyst i system. Optimal therapeutic ranges for immunosuppressant drugs depend upon an individual patient's current clinical state, type of organ transplant, time post-transplant, co-administration of other immunosuppressants, and other clinical factors. The results of this test should be correlated with additional clinical and laboratory data before changes in treatment regimens are made. TYPE CODE TESTS RESULT OUT OF RANGE REFERENCE UNITS LAB 17390-4(LOINC) Tacrolimus 7.2 <=15.0 ng/mL Performed By: #### 79030-2 # ### JASON Morales ([id number]) [facility] ([facility]) [address] [place] [address] COMPLETE BLOOD COUNT PANEL Collected: 10/23/2024 8:11 AM Status: F Source: [facility] TYPE CODE TESTS RESULT OUT OF RANGE REFERENCE UNITS LAB 6690-2(LOINC) Leukocytes 3.9 Low 4.4-11.3 x10*3/ uL LAB 24290-7(LOINC) Erythrocytes.nuc l eated/100 leukocytes 0.0 0.0-0.0 /100 WBCs LAB 789-8(LOINC) Erythrocytes 3.67 Low 4.50-5.90 x10* 6/uL LAB 718-7(LOINC) Hemoglobin 9.1 Low 13.5-17.5 g/dL LAB 4544-3(LOINC) Hematocrit 28.7 Low 41.0-52.0 % LAB 787-2(LOINC) Erythrocyte mean corpuscular volume 78 Low 80-100 fL LAB 785-6(LOINC) Erythrocyte mean corpuscular hemoglobin 24.8 Low 26.0-34.0 pg LAB 786-4(LOINC) Erythrocyte mean corpuscular hemoglobin concentration 31.7 Low 32.0-36.0 g/dL LAB 788-0(LOINC) Erythrocyte distribution width 18.4 High 11.5-14.5 % LAB 777-3(LOINC) Platelets 103 Low 150-450 x10*3/uL Performed By: #### 46437-5 # ### JASON Morales ([id number]) [facility] ([facility]) [id number] [place] [address] MAGNESIUM Collected: 8:11 AM Status: F Source: [facility] TYPE CODE TESTS RESULT OUT OF RANGE REFERENCE UNITS LAB 25205-9(LOINC) Magnesium 2.28 1.60-2.40 mg/dL Performed By: #### 51471-3 # ### JASON Morales ([id number]) [facility] ([facility]) [address] [place] [address] RENAL FUNCTION 2000 PANEL Collected: 8:11 AM Status: F Source: [facility] TYPE CODE TESTS RESULT OUT OF RANGE REFERENCE UNITS LAB 2345-7(LOINC) Glucose 181 High 74-99 mg/dL LAB 2951-2(LOINC) Sodium 136 136-145 mmol/L LAB 2823-3(LOINC) Potassium 4.5 3.5-5.3 mmol/L LAB 2075-0(LOINC) Chloride 97 Low 98-107 mmol/L LAB 8-9(LOINC) Carbon dioxide 24 21-32 mmo l/L LAB 21047-3(LOINC) Anion gap 20 10-20 mmol/L LAB 3094-0(LOINC) Urea nitrogen 70 High 6-23 mg/d L LAB 2160-0(LOINC) Creatinine 8.33 High 0.50-1.30 mg/dL LAB 43140-3(LOINC) Glomerular filtration rate/1.73 sq M.predicted 7 Low >60 mL/min/1 .73m*2 Result Comment: Calculations of estimated GFR are performed using the 2020 CKD- EPI Study Refit equation without the race variable for the IDMS-Traceable creatinine methods. https://jasn.asnjournals.org/content//ASN.8261280403 LAB 87309-4(LOINC) Calcium 8.3 Low 8.6-10.6 mg/dL LAB 2777-1(LOINC) Phosphate 5.6 High 2.5-4.9 mg/dL LAB 42643-1(INC) Albumin 3.1 Low 3.4-5.0 g/dL Performed By: #### 05151-0 # ### JASON Morales ([id number]) [facility] ([facility]) [address] [place] [address] TACROLIMUS Collected: 5 8:11 AM Status: F Source: [facility] Order Comment: NOTE: Result was obtained using a chemiluminescent microparticle immunoassay (CMIA) on the [employer] Hardware Analyst i system. Optimal therapeutic ranges for immunosuppressant drugs depend upon an individual patient's current clinical state, type of organ transplant, time post-transplant, co-administration of other immunosuppressants, and other clinical factors. The results of this test should be correlated with additional clinical and laboratory data before changes in treatment regimens are made. TYPE CODE TESTS RESULT OUT OF RANGE REFERENCE UNITS LAB 62327-1([facility]) Tacrolimus 5.1 <=15.0 ng/mL Performed By: #### 13627-6 # ### JASON Morales ([id number]) [facility] ([facility]) [address] [place] [address] GLUCOSE Collected: 5 3:19 PM Status: F Source: [facility] TYPE CODE TESTS RESULT OUT OF RANGE REFERENCE UNITS LAB 2341-6([facility]) Glucose 92 74-99 mg/dL Performed By: #### 2341-6 ## ## JASON CLARKMOTZER L ([id number]) [facility] ([facility]) [address] [place] [address] GLUCOSE Collected: 5 1:22 PM Status: F Source: [facility] TYPE CODE TESTS RESULT OUT OF RANGE REFERENCE UNITS LAB 2341-6([facility]) Glucose 106 High 74-99 mg/dL Performed By: #### 2341-6 ## ## JASON SCHMOTZER L ([id number]) [facility] ([facility]) [address] [place] [address] GLUCOSE Collected: 7:15 AM Status: F Source: [facility] TYPE CODE TESTS RESULT OUT OF RANGE REFERENCE UNITS LAB 2341-6(LOINC) Glucose 103 High 74-99 mg/dL Performed By: #### 234-6 ## ## JASON Morales ([id number]) [facility] ([facility]) [address] [place] [address] CALCIUM.IONIZED Collected: 5:56 AM Status: F Source: [facility] TYPE CODE TESTS RESULT OUT OF RANGE REFERENCE UNITS LAB 1993-08([facility]) Calcium.ion ized 1.08 Low 1.1-1.33 mmol/L Result Comment: The performa nce characteristics of ionized calcium tested in heparinized plasma or serum have been validated by the individual laboratory site where testing is performed. Testing on heparinized plasma or serum is not approved by the FDA; however, such approval is not necessary. Performed By: #### 1993-08 ## ## JASON Morales ([id number]) [facility] ([facility]) [address] [place], [place] [id number] MAGNESIUM Collected: 5:56 AM Status: F Source: [facility] TYPE CODE TESTS RESULT OUT OF RANGE REFERENCE UNITS LAB 12440-7(INC) Magnesium 2.43 High 1.60-2.40 mg/dL Performed By: #### 17502-9 # ### JASON Morales ([id number]) [facility] ([facility]) [address] [place] [address] RENAL FUNCTION 2000 PANEL Collected: 5:56 AM Status: F Source: [facility] TYPE CODE TESTS RESULT OUT OF RANGE REFERENCE UNITS LAB 2345-7(LOINC) Glucose 81 74-99 mg/dL LAB 2951-2(LOINC) Sodium 135 Low 136-145 mmol/L LAB 2823-3(LOINC) Potassium 4.7 3.5-5.3 mmol/L LAB 2075-0(LOINC) Chloride 95 Low 98-107 mmol/L LAB 2027-9(LOINC) Carbon dioxide 28 21-32 mmo l/L LAB 31893-4(LOINC) Anion gap 17 10-20 mmol/L LAB 3094-0(LOINC) Urea nitrogen 85 High 6-23 mg/d L LAB 2160-0(LOINC) Creatinine 9.30 High 0.50-1.30 mg/dL LAB 91408-6(LOINC) Glomerular filtration rate/1.73 sq M.predicted 6 Low >60 mL/min/1 .73m*2 Result Comment: Calculations of estimated GFR are performed using the 2020 CKD- EPI Study Refit equation without the race variable for the IDMS-Traceable creatinine methods. https://jasn.asnjournals.org/content/early//ASN.7719131252 LAB 86037-9(LOINC) Calcium 8.5 Low 8.6-10.6 mg/dL LAB 2777-1(LOINC) Phosphate 5.8 High 2.5-4.9 mg/dL LAB 20725-8(LOINC) Albumin 3.0 Low 3.4-5.0 g/dL Performed By: #### 49223-4 # ### JASON Morales ([id number]) [facility] ([facility]) [address] [place] [address] COMPLETE BLOOD COUNT PANEL Collected: 10/21/2024 5:56 AM Status: F Source: [facility] TYPE CODE TESTS RESULT OUT OF RANGE REFERENCE UNITS LAB 6690-2(LOINC) Leukocytes 4.0 Low 4.4-11.3 x10*3/ uL LAB 98442-2(LOINC) Erythrocytes.nuc l eated/100 leukocytes 0.0 0.0-0.0 /100 WBCs LAB 789-8(LOINC) Erythrocytes 3.89 Low 4.50-5.90 x10* 6/uL LAB 718-7(LOINC) Hemoglobin 9.7 Low 13.5-17.5 g/dL LAB 4544-3(LOINC) Hematocrit 30.1 Low 41.0-52.0 % LAB 787-2(LOINC) Erythrocyte mean corpuscular volume 77 Low 80-100 fL LAB 785-6(LOINC) Erythrocyte mean corpuscular hemoglobin 24.9 Low 26.0-34.0 pg LAB 786-4(LOINC) Erythrocyte mean corpuscular hemoglobin concentration 32.2 32.0-36.0 g/dL LAB 788-0(LOINC) Erythrocyte distribution width 18.5 High 11.5-14.5 % LAB 777-3(LOINC) Platelets 100 Low 150-450 x10*3/uL Performed By: #### 33142-1 # ### JASON Morales ([id number]) [facility] ([facility]) [address] [place], [place] [id number] TACROLIMUS Collected: 5:56 AM Status: F Source: [facility] Order Comment: NOTE: Result was obtained using a chemiluminescent microparticle immunoassay (CMIA) on the [employer] Hardware Analyst i system. Optimal therapeutic ranges for immunosuppressant drugs depend upon an individual patient's current clinical state, type of organ transplant, time post-transplant, co-administration of other immunosuppressants, and other clinical factors. The results of this test should be correlated with additional clinical and laboratory data before changes in treatment regimens are made. TYPE CODE TESTS RESULT OUT OF RANGE REFERENCE UNITS LAB 05420-7(LOINC) Tacrolimus 3.9 <=15.0 ng/mL Performed By: #### 85831-0 # ### JASON Morales ([id number]) [facility] ([facility]) [address] [place], [place] [id number] RENAL FUNCTION 2000 PANEL Collected: 9:00 PM Status: F Source: [facility] TYPE CODE TESTS RESULT OUT OF RANGE REFERENCE UNITS LAB 2345-7(LOINC) Glucose 119 High 74-99 mg/dL LAB 2951-2(LOINC) Sodium 132 Low 136-145 mmol/L LAB 2823-3(LOINC) Potassium 4.9 3.5-5.3 mmol/L LAB 2075-0(LOINC) Chloride 94 Low 98-107 mmol/L LAB 8-9(LOINC) Carbon dioxide 23 21-32 mmo l/L LAB 58142-6(LOINC) Anion gap 20 10-20 mmol/L LAB 3094-0(LOINC) Urea nitrogen 74 High 6-23 mg/d L LAB 2160-0(LOINC) Creatinine 8.76 High 0.50-1.30 mg/dL LAB 08895-6(LOINC) Glomerular filtration rate/1.73 sq M.predicted 7 Low >60 mL/min/1 .73m*2 Result Comment: Calculations of estimated GFR are performed using the 2020 CKD- EPI Study Refit equation without the race variable for the IDMS-Traceable creatinine methods. https://jasn.asnjournals.org/content//ASN.8165685002 LAB 43351-7(LOINC) Calcium 8.2 Low 8.6-10.6 mg/dL LAB 2777-1(LOINC) Phosphate 5.4 High 2.5-4.9 mg/dL LAB 89460-9(LOINC) Albumin 3.1 Low 3.4-5.0 g/dL Performed By: #### 38826-5 # ### JASON CLARKMOTZER L ([id number]) [facility] ([facility]) [address] [place] [address] GLUCOSE Collected: 7:59 PM Status: F Source: [facility] TYPE CODE TESTS RESULT OUT OF RANGE REFERENCE UNITS LAB 2341-6(INC) Glucose 126 High 74-99 mg/dL Performed By: #### 2341-6 ## ## JASON SCHMOTZER L ([id number]) [facility] ([facility]) [address] [place] [address] GLUCOSE Collected: 5 4:04 PM Status: F Source: [facility] TYPE CODE TESTS RESULT OUT OF RANGE REFERENCE UNITS LAB 2341-6(LOINC) Glucose 120 High 74-99 mg/dL Performed By: #### 2341-6 ## ## JASON SCHMOTZER L ([id number]) [facility] ([facility]) [address] [place] [address] GLUCOSE Collected: 5 11:32 AM Status: F Source: [facility] TYPE CODE TESTS RESULT OUT OF RANGE REFERENCE UNITS LAB 2341-6(LOINC) Glucose 118 High 74-99 mg/dL Performed By: #### 2341-6 ## ## JASON SCHMOTZER L ([id number]) [facility] ([facility]) [address] [place], [place] [address] GLUCOSE Collected: 8:20 AM Status: F Source: [facility] TYPE CODE TESTS RESULT OUT OF RANGE REFERENCE UNITS LAB 2341-6(LOINC) Glucose 106 High 74-99 mg/dL Performed By: #### 2341-6 ## ## JASON Morales ([id number]) [facility] ([facility]) [address] [place] [address] BLOOD TYPE Collected: 10/20/2024 7:19 AM Status: F Source: [facility] TYPE CODE TESTS RESULT OUT OF RANGE REFERENCE UNITS LAB 883-9(LOINC) ABO group B LAB 1305-2(LOINC) D Ag POS LAB 890-4([facility]) Blood group antibody screen NEG Performed By: #### 42297-2 # ### JASON Morales ([id number]) [facility] ([facility]) [address] [place] [address] MAGNESIUM Collected: 5:11 AM Status: F Source: [facility] TYPE CODE TESTS RESULT OUT OF RANGE REFERENCE UNITS LAB 89326-3([facility]) Magnesium 2.25 1.60-2.40 mg/dL Performed By: #### 58636-5 # ### JASON Morales ([id number]) [facility] ([facility]) [address] [place] [address] RENAL FUNCTION 2000 PANEL Collected: 5:11 AM Status: F Source: [facility] TYPE CODE TESTS RESULT OUT OF RANGE REFERENCE UNITS LAB 2345-7(LOINC) Glucose 120 High 74-99 mg/dL LAB 2951-2(LOINC) Sodium 135 Low 136-145 mmol/L LAB 2823-3(LOINC) Potassium 4.3 3.5-5.3 mmol/L LAB 2075-0(LOINC) Chloride 96 Low 98-107 mmol/L LAB 2028-9(LOINC) Carbon dioxide 28 21-32 mmo l/L LAB 61926-7(LOINC) Anion gap 15 10-20 mmol/L LAB 3094-0(LOINC) Urea nitrogen 66 High 6-23 mg/d L LAB 2160-0(LOINC) Creatinine 7.92 High 0.50-1.30 mg/dL LAB 34242-5(LOINC) Glomerular filtration rate/1.73 sq M.predicted 7 Low >60 mL/min/1 .73m*2 Result Comment: Calculations of estimated GFR are performed using the 2020 CKD- EPI Study Refit equation without the race variable for the IDMS-Traceable creatinine methods. https://jasn.asnjournals.org/content/early/ASN.2314150588 LAB 22496-2(LOINC) Calcium 7.9 Low 8.6-10.6 mg/dL LAB 2777-1(LOINC) Phosphate 5.3 High 2.5-4.9 mg/dL LAB 28850-2(LOINC) Albumin 3.0 Low 3.4-5.0 g/dL Performed By: #### 75056-6 # ### JASON Morales ([id number]) [facility] ([facility]) [address] [place] [address] COMPLETE BLOOD COUNT W AUTO DIFFERENTIAL PANEL Collected: 10/20/2024 5:11 AM Status: F Source: [facility] TYPE CODE TESTS RESULT OUT OF RANGE REFERENCE UNITS LAB 6690-2(LOINC) Leukocytes 2.6 Low 4.4-11.3 x10*3/ uL LAB 13589-3(LOINC ) Erythrocytes.nuc leated/100 leukocytes 0.0 0.0-0.0 /100 WBCs LAB 789-8(LOINC) Erythrocytes 2.94 Low 4.50-5.90 x10* 6/uL LAB 718-7(LOINC) Hemoglobin 6.9 Low 13.5-17.5 g/dL LAB 4544-3(LOINC) Hematocrit 21.9 Low 41.0-52.0 % LAB 787-2(LOINC) Erythrocyte mean corpuscular volume 75 Low 80-100 fL LAB 785-6(LOINC) Erythrocyte mean corpuscular hemoglobin 23.5 Low 26.0-34.0 pg LAB 786-4(LOINC) Erythrocyte mean corpuscular hemoglobin concentration 31.5 Low 32.0-36.0 g/dL LAB 788-0(LOINC) Erythrocyte distribution width 17.4 High 11.5-14.5 % LAB 777-3(LOINC) Platelets 88 Low 150-450 x10*3/uL LAB 770-8(LOINC) Neutrophils/100 leukocytes 85.8 40.0-80.0 % LAB 82180-9(LOINC ) Granulocytes.imm ature/100 leukocytes 0.4 0.0-0.9 % Result Comment: Immature Gra nulocyte Count (IG) includes promyelocytes, myelocytes and metamyelocytes but does not include bands. Percent differential counts (%) should be interpreted in the context of the absolute cell counts (cells/UL). LAB 736-9(LOINC) Lymphocytes/100 leukocytes 4.2 13.0-44.0 % LAB 5905-5(LOINC) Monocytes/100 leukocytes 7.7 2.0-10.0 % LAB 713-8(LOINC) Eosinophils/100 leukocytes 1.5 0.0-6.0 % LAB 706-2(LOINC) Basophils/100 leukocytes 0.4 0.0-2.0 % LAB 751-8(LOINC) Neutrophils 2.22 1.20-7.70 x10*3 /uL Result Comment: Percent diff erential counts (%) should be interpreted in the context of the absolute cell counts (cells/uL). LAB 37318-0(LOINC ) Granulocytes.imm ature 0.01 0.00-0.70 x10*3/uL LAB 731-0(LOINC) Lymphocytes 0.11 Low 1.20-4.80 x10*3 /uL LAB 742-7(LOINC) Monocytes 0.20 0.10-1.00 x10*3/u L LAB 711-2(LOINC) Eosinophils 0.04 0.00-0.70 x10*3 /uL LAB 704-7(LOINC) Basophils 0.01 0.00-0.10 x10*3/u L Performed By: #### 24159-9 # ### JASON Morales ([id number]) [facility] ([facility]) [address] [place] [address] CALCIUM.IONIZED Collected: 5 5:11 AM Status: F Source: [facility] TYPE CODE TESTS RESULT OUT OF RANGE REFERENCE UNITS LAB 1993-(LOINC) Calcium.ion ized 1.04 Low 1.1-1.33 mmol/L Result Comment: The performa nce characteristics of ionized calcium tested in heparinized plasma or serum have been validated by the individual laboratory site where testing is performed. Testing on heparinized plasma or serum is not approved by the FDA; however, such approval is not necessary. Performed By: #### 3 ## ## JSAON Morales ([id number]) [facility] ([facility]) [address] [place] [address] TACROLIMUS Collected: 5 5:11 AM Status: F Source: [facility] Order Comment: NOTE: Result was obtained using a chemiluminescent microparticle immunoassay (CMIA) on the [employer] Hardware Analyst i system. Optimal therapeutic ranges for immunosuppressant drugs depend upon an individual patient's current clinical state, type of organ transplant, time post-transplant, co-administration of other immunosuppressants, and other clinical factors. The results of this test should be correlated with additional clinical and laboratory data before changes in treatment regimens are made. TYPE CODE TESTS RESULT OUT OF RANGE REFERENCE UNITS LAB 84871-1(LOINC) Tacrolimus 6.8 <=15.0 ng/mL Performed By: #### 60775-2 # ### JASON Morales ([id number]) [facility] ([facility]) [address] [place], [place] [id number] GLUCOSE Collected: 5 3:29 PM Status: F Source: [facility] TYPE CODE TESTS RESULT OUT OF RANGE REFERENCE UNITS LAB 2341-6(LOINC) Glucose 132 High 74-99 mg/dL Performed By: #### 2341-6 ## ## JASON CLARKMOTZGREG Morales ([id number]) [facility] ([facility]) [address] [place] [address] GLUCOSE Collected: 5 11:58 AM Status: F Source: [facility] TYPE CODE TESTS RESULT OUT OF RANGE REFERENCE UNITS LAB 2341-6(LOINC) Glucose 172 High 74-99 mg/dL Performed By: #### 2341-6 ## ## JASON CLARKMOTZGREG Morales ([id number]) [facility] ([facility]) [address] [place] [address] DISCHARGE SUMMARY Observed: 10/19/2024 10:26 AM Status: COMPLETED Source: [facility] This report has been cancell ed. GLUCOSE Collected: 7:38 AM Status: F Source: [facility] TYPE CODE TESTS RESULT OUT OF RANGE REFERENCE UNITS LAB 2341-6(LOINC) Glucose 125 High 74-99 mg/dL Performed By: #### 2341-6 ## ## JASON Morales ([id number]) [facility] ([facility]) [address] [place] [address] COMPLETE BLOOD COUNT W AUTO DIFFERENTIAL PANEL Collected: 10/19/2024 5:35 AM Status: F Source: [facility] TYPE CODE TESTS RESULT OUT OF RANGE REFERENCE UNITS LAB 6690-2(LOINC) Leukocytes 3.5 Low 4.4-11.3 x10*3/ uL LAB 81839-5(LOINC ) Erythrocytes.nuc leated/100 leukocytes 0.0 0.0-0.0 /100 WBCs LAB 789-8(LOINC) Erythrocytes 3.12 Low 4.50-5.90 x10* 6/uL LAB 718-7(LOINC) Hemoglobin 7.3 Low 13.5-17.5 g/dL LAB 4544-3(LOINC) Hematocrit 23.2 Low 41.0-52.0 % LAB 787-2(LOINC) Erythrocyte mean corpuscular volume 74 Low 80-100 fL LAB 785-6(LOINC) Erythrocyte mean corpuscular hemoglobin 23.4 Low 26.0-34.0 pg LAB 786-4(LOINC) Erythrocyte mean corpuscular hemoglobin concentration 31.5 Low 32.0-36.0 g/dL LAB 788-0(LOINC) Erythrocyte distribution width 17.5 High 11.5-14.5 % LAB 777-3(LOINC) Platelets 92 Low 150-450 x10*3/uL LAB 770-8(LOINC) Neutrophils/100 leukocytes 89.0 40.0-80.0 % LAB 40235-2(LOINC ) Granulocytes.imm ature/100 leukocytes 0.6 0.0-0.9 % Result Comment: Immature Gra nulocyte Count (IG) includes promyelocytes, myelocytes and metamyelocytes but does not include bands. Percent differential counts (%) should be interpreted in the context of the absolute cell counts (cells/UL). LAB 736-9(LOINC) Lymphocytes/100 leukocytes 2.6 13.0-44.0 % LAB 5905-5(LOINC) Monocytes/100 leukocytes 6.6 2.0-10.0 % LAB 713-8(LOINC) Eosinophils/100 leukocytes 1.2 0.0-6.0 % LAB 706-2(LOINC) Basophils/100 leukocytes 0.0 0.0-2.0 % LAB 751-8(LOINC) Neutrophils 3.08 1.20-7.70 x10*3 /uL Result Comment: Percent diff erential counts (%) should be interpreted in the context of the absolute cell counts (cells/uL). LAB 19336-5(LOINC ) Granulocytes.imm ature 0.02 0.00-0.70 x10*3/uL LAB 731-0(LOINC) Lymphocytes 0.09 Low 1.20-4.80 x10*3 /uL LAB 742-7(LOINC) Monocytes 0.23 0.10-1.00 x10*3/u L LAB 711-2(LOINC) Eosinophils 0.04 0.00-0.70 x10*3 /uL LAB 704-7(LOINC) Basophils 0.00 0.00-0.10 x10*3/u L Performed By: #### [id number] # ### JASON Morales ([id number]) [facility] ([facility]) [address] [place] [address] CALCIUM.IONIZED Collected: 5 5:35 AM Status: F Source: [facility] TYPE CODE TESTS RESULT OUT OF RANGE REFERENCE UNITS LAB 1994-3(LOINC) Calcium.ion ized 1.00 Low 1.1-1.33 mmol/L Result Comment: The performa nce characteristics of ionized calcium tested in heparinized plasma or serum have been validated by the individual laboratory site where testing is performed. Testing on heparinized plasma or serum is not approved by the FDA; however, such approval is not necessary. Performed By: #### 1994-3 ## ## JASON JENNINGS L ([id number]) [facility] ([facility]) [address] [place] [address] MAGNESIUM Collected: 5:35 AM Status: F Source: [facility] TYPE CODE TESTS RESULT OUT OF RANGE REFERENCE UNITS LAB 91130-6(LOINC) Magnesium 2.08 1.60-2.40 mg/dL Performed By: #### 94386-2 # ### JASON SUTHERLANDER L ([id number]) [facility] ([facility]) [address] [place] [address] RENAL FUNCTION 2000 PANEL Collected: 5:35 AM Status: F Source: [facility] TYPE CODE TESTS RESULT OUT OF RANGE REFERENCE UNITS LAB 2345-7(LOINC) Glucose 109 High 74-99 mg/dL LAB 2951-2(LOINC) Sodium 135 Low 136-145 mmol/L LAB 2823-3(LOINC) Potassium 4.0 3.5-5.3 mmol/L LAB 2075-0(LOINC) Chloride 96 Low 98-107 mmol/L LAB 2028-9(LOINC) Carbon dioxide 28 21-32 mmo l/L LAB 06327-4(LOINC) Anion gap 15 10-20 mmol/L LAB 3094-0(LOINC) Urea nitrogen 45 High 6-23 mg/d L LAB 2160-0(LOINC) Creatinine 6.34 High 0.50-1.30 mg/dL LAB 96841-7(LOINC) Glomerular filtration rate/1.73 sq M.predicted 10 Low >60 mL/min/1 .73m*2 Result Comment: Calculations of estimated GFR are performed using the 2020 CKD- EPI Study Refit equation without the race variable for the IDMS-Traceable creatinine methods. https://jasn.asnjournals.org/content/early//ASN.6270625079 LAB 36096-9(LOINC) Calcium 7.7 Low 8.6-10.6 mg/dL LAB 2777-1(LOINC) Phosphate 5.0 High 2.5-4.9 mg/dL LAB 81498-8(LOINC) Albumin 3.1 Low 3.4-5.0 g/dL Performed By: #### 48164-6 # ### JASON Morales ([id number]) [facility] ([facility]) [address] [place] [address] TACROLIMUS Collected: 5 5:35 AM Status: F Source: [facility] Order Comment: NOTE: Result was obtained using a chemiluminescent microparticle immunoassay (CMIA) on the [employer] Hardware Analyst i system. Optimal therapeutic ranges for immunosuppressant drugs depend upon an individual patient's current clinical state, type of organ transplant, time post-transplant, co-administration of other immunosuppressants, and other clinical factors. The results of this test should be correlated with additional clinical and laboratory data before changes in treatment regimens are made. TYPE CODE TESTS RESULT OUT OF RANGE REFERENCE UNITS LAB 15963-8(LOINC) Tacrolimus 23.0 High Alert <=15.0 ng/mL Performed By: #### 32413-4 # ### JASON Morales ([id number]) [facility] ([facility]) [address] [place], [place] [id number] GLUCOSE Collected: 5 3:30 PM Status: F Source: [facility] TYPE CODE TESTS RESULT OUT OF RANGE REFERENCE UNITS LAB 2341-6(LOINC) Glucose 135 High 74-99 mg/dL Performed By: #### 2341-6 ## ## JASON CLARKMOZAY Morales ([id number]) [facility] ([facility]) [address] [place] [address] GLUCOSE Collected: 5 11:38 AM Status: F Source: [facility] TYPE CODE TESTS RESULT OUT OF RANGE REFERENCE UNITS LAB 2341-6(LOINC) Glucose 105 High 74-99 mg/dL Performed By: #### 2341-6 ## ## JASON CLARKMOTZER L ([id number]) [facility] ([facility]) [address] [place] [address] GLUCOSE Collected: 5 7:28 AM Status: F Source: [facility] TYPE CODE TESTS RESULT OUT OF RANGE REFERENCE UNITS LAB 2341-6(LOINC) Glucose 99 74-99 mg/dL Performed By: #### 2341-6 ## ## JASON JENNINGS L ([id number]) [facility] ([facility]) [address] [place] [address] MAGNESIUM Collected: 5:05 AM Status: F Source: [facility] TYPE CODE TESTS RESULT OUT OF RANGE REFERENCE UNITS LAB 89757-9(LOINC) Magnesium 2.15 1.60-2.40 mg/dL Performed By: #### 69799-2 # ### JASON SUTHERLANDER L ([id number]) [facility] ([facility]) [address] [place] [address] RENAL FUNCTION 2000 PANEL Collected: 5:05 AM Status: F Source: [facility] TYPE CODE TESTS RESULT OUT OF RANGE REFERENCE UNITS LAB 2345-7(LOINC) Glucose 93 74-99 mg/dL LAB 2951-2(LOINC) Sodium 131 Low 136-145 mmol/L LAB 2823-3(LOINC) Potassium 4.3 3.5-5.3 mmol/L LAB 2075-0(LOINC) Chloride 93 Low 98-107 mmol/L LAB 2028-9(LOINC) Carbon dioxide 22 21-32 mmo l/L LAB 38249-4(LOINC) Anion gap 20 10-20 mmol/L LAB 3094-0(LOINC) Urea nitrogen 78 High 6-23 mg/d L LAB 2160-0(LOINC) Creatinine 10.34 High 0.50-1.30 mg/dL LAB 61867-4(LOINC) Glomerular filtration rate/1.73 sq M.predicted 5 Low >60 mL/min/1 .73m*2 Result Comment: Calculations of estimated GFR are performed using the 2020 CKD- EPI Study Refit equation without the race variable for the IDMS-Traceable creatinine methods. https://jasn.asnjournals.org/content///ASN.9555879469 LAB 18642-3(LOINC) Calcium 7.2 Low 8.6-10.6 mg/dL LAB 2777-1(LOINC) Phosphate 7.7 High 2.5-4.9 mg/dL LAB 05197-2(LOINC) Albumin 3.1 Low 3.4-5.0 g/dL Performed By: #### 26678-7 # ### JASON Morales ([id number]) [facility] ([facility]) [id number] [place] [address] CALCIUM.IONIZED Collected: 5:05 AM Status: F Source: [facility] TYPE CODE TESTS RESULT OUT OF RANGE REFERENCE UNITS LAB 1993-3(LOINC) Calcium.ion ized 0.92 Low 1.1-1.33 mmol/L Result Comment: The performa nce characteristics of ionized calcium tested in heparinized plasma or serum have been validated by the individual laboratory site where testing is performed. Testing on heparinized plasma or serum is not approved by the FDA; however, such approval is not necessary. Performed By: #### 1994-3 ## ## JASON Morales ([id number]) [facility] ([facility]) [id number] [place] [address] COMPLETE BLOOD COUNT W AUTO DIFFERENTIAL PANEL Collected: 10/18/2024 5:05 AM Status: F Source: [facility] TYPE CODE TESTS RESULT OUT OF RANGE REFERENCE UNITS LAB 6690-2(LOINC) Leukocytes 4.3 Low 4.4-11.3 x10*3/ uL LAB 92845-8(LOINC ) Erythrocytes.nuc leated/100 leukocytes 0.0 0.0-0.0 /100 WBCs LAB 789-8(LOINC) Erythrocytes 3.22 Low 4.50-5.90 x10* 6/uL LAB 718-7(LOINC) Hemoglobin 7.5 Low 13.5-17.5 g/dL LAB 4544-3(LOINC) Hematocrit 23.7 Low 41.0-52.0 % LAB 787-2(LOINC) Erythrocyte mean corpuscular volume 74 Low 80-100 fL LAB 785-6(LOINC) Erythrocyte mean corpuscular hemoglobin 23.3 Low 26.0-34.0 pg LAB 786-4(LOINC) Erythrocyte mean corpuscular hemoglobin concentration 31.6 Low 32.0-36.0 g/dL LAB 788-0(LOINC) Erythrocyte distribution width 17.4 High 11.5-14.5 % LAB 777-3(LOINC) Platelets 87 Low 150-450 x10*3/uL LAB 770-8(LOINC) Neutrophils/100 leukocytes 89.6 40.0-80.0 % LAB 64862-3(LOINC ) Granulocytes.imm ature/100 leukocytes 0.9 0.0-0.9 % Result Comment: Immature Gra nulocyte Count (IG) includes promyelocytes, myelocytes and metamyelocytes but does not include bands. Percent differential counts (%) should be interpreted in the context of the absolute cell counts (cells/UL). LAB 736-9(LOINC) Lymphocytes/100 leukocytes 1.6 13.0-44.0 % LAB 5905-5(LOINC) Monocytes/100 leukocytes 7.9 2.0-10.0 % LAB 713-8(LOINC) Eosinophils/100 leukocytes 0.0 0.0-6.0 % LAB 706-2(LOINC) Basophils/100 leukocytes 0.0 0.0-2.0 % LAB 751-8(LOINC) Neutrophils 3.87 1.20-7.70 x10*3 /uL Result Comment: Percent diff erential counts (%) should be interpreted in the context of the absolute cell counts (cells/uL). LAB 21010-1(LOINC ) Granulocytes.imm ature 0.04 0.00-0.70 x10*3/uL LAB 731-0(LOINC) Lymphocytes 0.07 Low 1.20-4.80 x10*3 /uL LAB 742-7(LOINC) Monocytes 0.34 0.10-1.00 x10*3/u L LAB 711-2(LOINC) Eosinophils 0.00 0.00-0.70 x10*3 /uL LAB 704-7(LOINC) Basophils 0.00 0.00-0.10 x10*3/u L Performed By: #### 84363-8 # ### JASON Morales ([id number]) [facility] ([facility]) [address] [place], [place] [id number] TACROLIMUS Collected: 5 5:05 AM Status: F Source: [facility] Order Comment: NOTE: Result was obtained using a chemiluminescent microparticle immunoassay (CMIA) on the [employer] Hardware Analyst i system. Optimal therapeutic ranges for immunosuppressant drugs depend upon an individual patient's current clinical state, type of organ transplant, time post-transplant, co-administration of other immunosuppressants, and other clinical factors. The results of this test should be correlated with additional clinical and laboratory data before changes in treatment regimens are made. TYPE CODE TESTS RESULT OUT OF RANGE REFERENCE UNITS LAB 33306-0(LOINC) Tacrolimus 10.3 <=15.0 ng/mL Performed By: #### 14904-1 # ### JASON Morales ([id number]) [facility] ([facility]) [address] [place] [address] GLUCOSE Collected: 8:40 PM Status: F Source: [facility] TYPE CODE TESTS RESULT OUT OF RANGE REFERENCE UNITS LAB 2341-6(LOINC) Glucose 118 High 74-99 mg/dL Performed By: #### 2341-6 ## ## JASON CLARKMOZAY Morales ([id number]) [facility] ([facility]) [address] [place], [place] [id number] GLUCOSE Collected: 4:46 PM Status: F Source: [facility] TYPE CODE TESTS RESULT OUT OF RANGE REFERENCE UNITS LAB 2341-6(LOINC) Glucose 161 High 74-99 mg/dL Performed By: #### 2341-6 ## ## JASON SCHMOTZER L ([id number]) [facility] ([facility]) [address] [place], [place] [id number] COMPLETE BLOOD COUNT PANEL Collected: 10/17/2024 3:07 PM Status: F Source: [facility] TYPE CODE TESTS RESULT OUT OF RANGE REFERENCE UNITS LAB 6690-2(LOINC) Leukocytes 7.8 4.4-11.3 x10*3/ uL LAB 58159-7(LOINC) Erythrocytes.nuc l eated/100 leukocytes 0.0 0.0-0.0 /100 WBCs LAB 789-8(LOINC) Erythrocytes 3.37 Low 4.50-5.90 x10* 6/uL LAB 718-7(LOINC) Hemoglobin 8.0 Low 13.5-17.5 g/dL LAB 4544-3(LOINC) Hematocrit 25.6 Low 41.0-52.0 % LAB 787-2(LOINC) Erythrocyte mean corpuscular volume 76 Low 80-100 fL LAB 785-6(LOINC) Erythrocyte mean corpuscular hemoglobin 23.7 Low 26.0-34.0 pg LAB 786-4(LOINC) Erythrocyte mean corpuscular hemoglobin concentration 31.3 Low 32.0-36.0 g/dL LAB 788-0(LOINC) Erythrocyte distribution width 17.4 High 11.5-14.5 % LAB 777-3(LOINC) Platelets 81 Low 150-450 x10*3/uL Performed By: #### 18841-8 # ### JSAON Morales ([id number]) [facility] ([facility]) [address] [place] [address] GLUCOSE Collected: 5 12:14 PM Status: F Source: [facility] TYPE CODE TESTS RESULT OUT OF RANGE REFERENCE UNITS LAB 2341-6(LOINC) Glucose 82 74-99 mg/dL Performed By: #### 2341-6 ## ## JSAON CLARKMOTZER L ([id number]) [facility] ([facility]) [address] [place] [address] US KIDNEY TRANSPLANT Observed: 5 6:52 AM Status: F Source: [facility] Interpreted By: John Hendricks and Barbat Antonio STUDY: US KIDNEY TRANSPLANT; 10/17/2024 8:25 am INDICATION: Signs/Symptoms:s/p DDKT. Transplant date: 10/15/2024. COMPARISON: Ultrasound kidney transplant 10/15/2024. ACCESSION NUMBER(S): [id number] ORDERING CLINICIAN: PAULINE HERNANDEZ TECHNIQUE: Grayscale, color, and spectral Doppler of the kidney transplant were performed. This examination was interpreted at [facility]. FINDINGS: TRANSPLANT KIDNEY: Transplant kidney location: The renal transplant is located in the right iliac fossa. The transplant kidney zujspmrw99.1 cm in craniocaudal dimension. There is no hydronephrosis and hydroureter. 1.8 x 2.1 x 1.8 cm anechoic lesion within the transplant kidney, likely a simple renal cyst. There is a heterogenous hypoechoic fluid collection with internal echoes/septations along the inferolateral margin of the transplanted kidney, which measures 5.9 x 3.1 x 5.1 cm with internal septations. There is no significant internal Doppler flow. Although direct comparison to 10/15/2024 exam is difficult due to differences in sonographic technique, the collection previously measured 5.6 x 1.2 x 4.9 cm and appears to similar to slightly increased in size. BLADDER: There is a Juan catheter within the urinary bladder, which is decompressed and limited for evaluation. DOPPLER EVALUATION: RESISTIVE INDICES: The resistive indices were as follows: 0.9/0.8 in the superior pole, .84 / .81 in the midpole, and .81 / .84 in the inferior pole. Wave forms are normal. For reference on 10/15/2024 exam the resistive indices were 0.8 in the superior, mid and inferior poles. TRANSPLANT RENAL ARTERY AND VEIN: Main Renal Artery: *At the hilum: 60.4 cm/sec (prior: 145.0 cm/sec) *At the mid section: 161.4 cm/sec (prior: 84.1 cm/sec) *At the anastomosis: 76.7 cm/sec (prior: 51.6 cm/sec) Adjacent Iliac Artery: *Proximal to the anastomosis: 91.7 cm/sec (prior: 47.5 cm/sec) *At the anastomosis: 124.1 cm/sec (prior: 50.1 cm/sec) *Distal to the anastomosis: 53.1 cm/sec (prior: 51.2 cm/sec) Transplant Renal Vein: Patent *At the hilum: 30.1 cm/sec (prior: 13.4 cm/sec) *At the mid section:46.7 cm/sec (prior: 13.8 cm/sec) *At the anastomosis: 58.6 cm/sec (prior: 48.8 cm/sec) Adjacent Iliac Vein: *Proximal to the anastomosis: 82.0 cm/sec (prior: 8.0 cm/sec) *Distal to the anastomosis: 39.5 cm/sec (prior: 12.2 cm/sec) IMPRESSION: 1. Although direct comparison is limited due to differences in technique, the previously described collection along the inferolateral margin of the transplanted kidney is similar to slightly increased in size compared to 10/15/2024. There has been a slight increase in the internal echogenicity of the collection. This collection likely represents a postoperative hematoma. 2. Doppler interrogation demonstrates interval increase in flow velocity in the evaluated vessels compared to 10/15/2024 exam, as detailed above. 3. Mild interval increase in the resistive index at the superior pole compared to 10/15/2024. I personally reviewed the images/study and I agree with the findings as stated by Danial Gupta MD. This study was interpreted at [place], [place] MACRO: None Signed by: Ronni Hendricks 10/17/2024 1:38 PM Dictation workstation: [id number] MAGNESIUM Collected: 5:09 AM Status: F Source: [facility] TYPE CODE TESTS RESULT OUT OF RANGE REFERENCE UNITS LAB 86139-8(LOINC) Magnesium 2.00 1.60-2.40 mg/dL Performed By: #### 75703-8 # ### JASON Morales ([id number]) [facility] ([facility]) [address] [place] [address] RENAL FUNCTION 2000 PANEL Collected: 5:09 AM Status: F Source: [facility] TYPE CODE TESTS RESULT OUT OF RANGE REFERENCE UNITS LAB 2345-7(LOINC) Glucose 116 High 74-99 mg/dL LAB 2951-2(LOINC) Sodium 134 Low 136-145 mmol/L LAB 2823-3(LOINC) Potassium 4.1 3.5-5.3 mmol/L LAB 2075-0(LOINC) Chloride 95 Low 98-107 mmol/L LAB 2027-9(LOINC) Carbon dioxide 25 21-32 mmo l/L LAB 54228-4(LOINC) Anion gap 18 10-20 mmol/L LAB 3094-0(LOINC) Urea nitrogen 59 High 6-23 mg/d L LAB 2160-0(LOINC) Creatinine 8.20 High 0.50-1.30 mg/dL LAB 67049-1(LOINC) Glomerular filtration rate/1.73 sq M.predicted 7 Low >60 mL/min/1 .73m*2 Result Comment: Calculations of estimated GFR are performed using the 2020 CKD- EPI Study Refit equation without the race variable for the IDMS-Traceable creatinine methods. https://jasn.asnjournals.org/content//ASN.0161781799 LAB 70386-1(LOINC) Calcium 6.8 Low 8.6-10.6 mg/dL LAB 2777-1(LOINC) Phosphate 7.8 High 2.5-4.9 mg/dL LAB 11525-3(LOINC) Albumin 3.0 Low 3.4-5.0 g/dL Performed By: #### 65676-8 # ### JASON Morales ([id number]) [facility] ([facility]) [address] [place] [address] COMPLETE BLOOD COUNT W AUTO DIFFERENTIAL PANEL Collected: 10/17/2024 5:09 AM Status: F Source: [facility] TYPE CODE TESTS RESULT OUT OF RANGE REFERENCE UNITS LAB 6690-2(LOINC) Leukocytes 6.5 4.4-11.3 x10*3/ uL LAB 93647-7(LOINC ) Erythrocytes.nuc leated/100 leukocytes 0.0 0.0-0.0 /100 WBCs LAB 789-8(LOINC) Erythrocytes 2.86 Low 4.50-5.90 x10* 6/uL LAB 718-7(LOINC) Hemoglobin 7.0 Low 13.5-17.5 g/dL LAB 4544-3(LOINC) Hematocrit 21.5 Low 41.0-52.0 % LAB 787-2(LOINC) Erythrocyte mean corpuscular volume 75 Low 80-100 fL LAB 785-6(LOINC) Erythrocyte mean corpuscular hemoglobin 24.5 Low 26.0-34.0 pg LAB 786-4(LOINC) Erythrocyte mean corpuscular hemoglobin concentration 32.6 32.0-36.0 g/dL LAB 788-0(LOINC) Erythrocyte distribution width 17.1 High 11.5-14.5 % LAB 777-3(LOINC) Platelets 84 Low 150-450 x10*3/uL LAB 770-8(LOINC) Neutrophils/100 leukocytes 94.6 40.0-80.0 % LAB 17801-7(LOINC ) Granulocytes.imm ature/100 leukocytes 0.5 0.0-0.9 % Result Comment: Immature Gra nulocyte Count (IG) includes promyelocytes, myelocytes and metamyelocytes but does not include bands. Percent differential counts (%) should be interpreted in the context of the absolute cell counts (cells/UL). LAB 736-9(LOINC) Lymphocytes/100 leukocytes 0.9 13.0-44.0 % LAB 5905-5(LOINC) Monocytes/100 leukocytes 3.8 2.0-10.0 % LAB 713-8(LOINC) Eosinophils/100 leukocytes 0.0 0.0-6.0 % LAB 706-2(LOINC) Basophils/100 leukocytes 0.2 0.0-2.0 % LAB 751-8(LOINC) Neutrophils 6.18 1.20-7.70 x10*3 /uL Result Comment: Percent diff erential counts (%) should be interpreted in the context of the absolute cell counts (cells/uL). LAB 55933-6(LOINC ) Granulocytes.imm ature 0.03 0.00-0.70 x10*3/uL LAB 731-0(LOINC) Lymphocytes 0.06 Low 1.20-4.80 x10*3 /uL LAB 742-7(LOINC) Monocytes 0.25 0.10-1.00 x10*3/u L LAB 711-2(LOINC) Eosinophils 0.00 0.00-0.70 x10*3 /uL LAB 704-7(LOINC) Basophils 0.01 0.00-0.10 x10*3/u L Performed By: #### 98254-2 # ### JASON Morales ([id number]) [facility] ([facility]) [address] [place] [address] TACROLIMUS Collected: 5 5:09 AM Status: F Source: [facility] Order Comment: NOTE: Result was obtained using a chemiluminescent microparticle immunoassay (CMIA) on the [employer] Hardware Analyst i system. Optimal therapeutic ranges for immunosuppressant drugs depend upon an individual patient's current clinical state, type of organ transplant, time post-transplant, co-administration of other immunosuppressants, and other clinical factors. The results of this test should be correlated with additional clinical and laboratory data before changes in treatment regimens are made. TYPE CODE TESTS RESULT OUT OF RANGE REFERENCE UNITS LAB 53071-4(LOINC) Tacrolimus 3.4 <=15.0 ng/mL Performed By: #### 21970-7 # ### JASON Morales ([id number]) [facility] ([facility]) [address] [place] [address] GLUCOSE Collected: 8:50 PM Status: F Source: [facility] TYPE CODE TESTS RESULT OUT OF RANGE REFERENCE UNITS LAB 2341-6(LOINC) Glucose 169 High 74-99 mg/dL Performed By: #### 2341-6 ## ## JASON SCHMOTZER L ([id number]) [facility] ([facility]) [address] [place] [address] GLUCOSE Collected: 5 4:06 PM Status: F Source: [facility] TYPE CODE TESTS RESULT OUT OF RANGE REFERENCE UNITS LAB 2341-6(LOINC) Glucose 194 High 74-99 mg/dL Performed By: #### 2341-6 ## ## JASON SCHMOTZER L ([id number]) [facility] ([facility]) [address] [place] [address] GLUCOSE Collected: 5 12:04 PM Status: F Source: [facility] TYPE CODE TESTS RESULT OUT OF RANGE REFERENCE UNITS LAB 2341-6(LOINC) Glucose 229 High 74-99 mg/dL Performed By: #### 2341-6 ## ## JASON SCHMOTZER L ([id number]) [facility] ([facility]) [address] [place] [address] GLUCOSE Collected: 7:18 AM Status: F Source: [facility] TYPE CODE TESTS RESULT OUT OF RANGE REFERENCE UNITS LAB 2341-6(LOINC) Glucose 244 High 74-99 mg/dL Performed By: #### 2341-6 ## ## JASON SCHMOTZER L ([id number]) [facility] ([facility]) [address] [place] [address] MAGNESIUM Collected: 5 5:24 AM Status: F Source: [facility] TYPE CODE TESTS RESULT OUT OF RANGE REFERENCE UNITS LAB 18755-4(LOINC) Magnesium 2.00 1.60-2.40 mg/dL Performed By: #### 50416-0 # ### JASON Morales ([id number]) [facility] ([facility]) [address] [place] [address] RENAL FUNCTION 2000 PANEL Collected: 5:24 AM Status: F Source: [facility] TYPE CODE TESTS RESULT OUT OF RANGE REFERENCE UNITS LAB 2345-7(LOINC) Glucose 233 High 74-99 mg/dL LAB 2951-2(LOINC) Sodium 138 136-145 mmol/L LAB 2823-3(LOINC) Potassium 3.6 3.5-5.3 mmol/L LAB 2075-0(LOINC) Chloride 97 Low 98-107 mmol/L LAB 8-9(LOINC) Carbon dioxide 25 21-32 mmo l/L LAB 73853-9(LOINC) Anion gap 20 10-20 mmol/L LAB 3094-0(LOINC) Urea nitrogen 34 High 6-23 mg/d L LAB 2160-0(LOINC) Creatinine 7.03 High 0.50-1.30 mg/dL LAB 12580-7(LOINC) Glomerular filtration rate/1.73 sq M.predicted 9 Low >60 mL/min/1 .73m*2 Result Comment: Calculations of estimated GFR are performed using the 2020 CKD- EPI Study Refit equation without the race variable for the IDMS-Traceable creatinine methods. https://jasn.asnjournals.org/content///ASN.0770993594 LAB 37443-4(LOINC) Calcium 7.6 Low 8.6-10.6 mg/dL LAB 2777-1(LOINC) Phosphate 5.0 High 2.5-4.9 mg/dL LAB 22028-2(LOINC) Albumin 3.1 Low 3.4-5.0 g/dL Performed By: #### 75301-5 # ### JASON Morales ([id number]) [facility] ([facility]) [address] [place] [address] COMPLETE BLOOD COUNT W AUTO DIFFERENTIAL PANEL Collected: 10/16/2024 5:24 AM Status: F Source: [facility] TYPE CODE TESTS RESULT OUT OF RANGE REFERENCE UNITS LAB 6690-2(LOINC) Leukocytes 8.7 4.4-11.3 x10*3/ uL LAB 45560-7(LOINC) Erythrocytes.nuc leated/100 leukocytes 0.0 0.0-0.0 /100 WBCs LAB 789-8(LOINC) Erythrocytes 3.54 Low 4.50-5.90 x10* 6/uL LAB 718-7(LOINC) Hemoglobin 8.7 Low 13.5-17.5 g/dL LAB 4544-3(LOINC) Hematocrit 28.5 Low 41.0-52.0 % LAB 787-2(LOINC) Erythrocyte mean corpuscular volume 81 80-100 fL LAB 785-6(LOINC) Erythrocyte mean corpuscular hemoglobin 24.6 Low 26.0-34.0 pg LAB 786-4(LOINC) Erythrocyte mean corpuscular hemoglobin concentration 30.5 Low 32.0-36.0 g/dL LAB 788-0(LOINC) Erythrocyte distribution width 17.5 High 11.5-14.5 % LAB 777-3(LOINC) Platelets 95 Low 150-450 x10*3/uL LAB 770-8(LOINC) Neutrophils/100 leukocytes 94.3 40.0-80.0 % LAB 46653-8(LOINC) Granulocytes.imm ature/100 leukocytes 0.8 0.0-0.9 % LAB 736-9(LOINC) Lymphocytes/100 leukocytes 0.6 13.0-44.0 % LAB 5905-5(LOINC) Monocytes/100 leukocytes 4.2 2.0-10.0 % LAB 713-8(LOINC) Eosinophils/100 leukocytes 0.0 0.0-6.0 % LAB 706-2(LOINC) Basophils/100 leukocytes 0.1 0.0-2.0 % LAB 751-8(LOINC) Neutrophils 8.21 High 1.20-7.70 x10*3 /uL LAB 78590-3(LOINC) Granulocytes.imm ature 0.07 0.00-0.70 x10*3/uL LAB 731-0(LOINC) Lymphocytes 0.05 Low 1.20-4.80 x10*3 /uL LAB 742-7(LOINC) Monocytes 0.37 0.10-1.00 x10*3/u L LAB 711-2(LOINC) Eosinophils 0.00 0.00-0.70 x10*3 /uL LAB 704-7(LOINC) Basophils 0.01 0.00-0.10 x10*3/u L Performed By: #### 80202-9 # ### JASON Morales ([id number]) [facility] ([facility]) [address] [id number] GLUCOSE Collected: 4:45 AM Status: F Source: [facility] TYPE CODE TESTS RESULT OUT OF RANGE REFERENCE UNITS LAB 2341-6([facility]) Glucose 220 High 74-99 mg/dL Performed By: #### 2341-6 ## ## JASON Morales ([id number]) [facility] ([facility]) [id number] [place] [address]661 COMPLETE BLOOD COUNT PANEL Collected: 10/16/2024 12:1 8 AM Status: F Source: [facility] TYPE CODE TESTS RESULT OUT OF RANGE REFERENCE UNITS LAB 6690-2(LOINC) Leukocytes 5.5 4.4-11.3 x10*3/ uL LAB 44814-7(LOINC) Erythrocytes.nuc l eated/100 leukocytes 0.0 0.0-0.0 /100 WBCs LAB 789-8(LOINC) Erythrocytes 3.57 Low 4.50-5.90 x10* 6/uL LAB 718-7(LOINC) Hemoglobin 8.6 Low 13.5-17.5 g/dL LAB 4544-3(LOINC) Hematocrit 27.2 Low 41.0-52.0 % LAB 787-2(LOINC) Erythrocyte mean corpuscular volume 76 Low 80-100 fL LAB 785-6(LOINC) Erythrocyte mean corpuscular hemoglobin 24.1 Low 26.0-34.0 pg LAB 786-4(LOINC) Erythrocyte mean corpuscular hemoglobin concentration 31.6 Low 32.0-36.0 g/dL LAB 788-0(LOINC) Erythrocyte distribution width 16.8 High 11.5-14.5 % LAB 777-3(LOINC) Platelets 80 Low 150-450 x10*3/uL Performed By: #### 63465-4 # ### JASON Morales ([id number]) [facility] ([facility]) [id number] [place] [address] GAS Collected: 5 11:06 PM Status: F Source: [facility] TYPE CODE TESTS RESULT OUT OF RANGE REFERENCE UNITS LAB 2744-1(LOINC) pH 7.35 Low 7.38-7.42 pH LAB 2019-8(LOINC) Carbon dioxide 45 High 38-42 mm Hg LAB 2703-7(LOINC) Oxygen 116 High 85-95 mm Hg LAB 2708-6(LOINC) Oxygen saturation 99 94-100 % LAB 2714-4(INC) Oxyhemoglobin/H emoglobin.total 97.6 94.0-98.0 % LAB 72184-9(LOINC) Hematocrit 23.0 Low 41.0-52.0 % LAB 91167-5(LOINC) Sodium 136 136-145 mmol/L LAB 69968-2(LOINC) Potassium 3.2 Low 3.5-5.3 mmol/L LAB 23275-1(LOINC) Chloride 103 98-107 mmol/L LAB 97970-2(LOINC) Calcium.ionized 0.93 Low 1.10-1.33 mmol/L LAB 12301-8(LOINC) Glucose 196 High 74-99 mg/dL LAB 2518-9(LOINC) Lactate 1.1 0.4-2.0 mmol/L LAB 1925-7(LOINC) Base excess -0.8 -2.0-3.0 mmol/ L LAB 1960-4(LOINC) Bicarbonate 24.8 22.0-26.0 mmol /L LAB 14515-4(LOINC) Hemoglobin 7.8 Low 13.5-17.5 g/dL LAB 23512-9(LOINC) Anion gap 4 11 10-25 mmo/L LAB 8310-5(LOINC) Body temperature 37.0 degrees Celsius LAB 3150-0(LOINC) Oxygen/Gas.tota l 21 % Performed By: #### 27506-0 # ### JASON POPEZAY Foreign ([id number]) [facility] ([facility]) [address] [id number] COMPLETE BLOOD COUNT W AUTO DIFFERENTIAL PANEL Collected: 10/15/2024 8:26 PM Status: F Source: [facility] Order Comment: After arrival in PACU unless already done in the operating room. TYPE CODE TESTS RESULT OUT OF RANGE REFERENCE UNITS LAB 6690-2(LOINC) Leukocytes 2.6 Low 4.4-11.3 x10*3/ uL LAB 63214-7(LOINC ) Erythrocytes.nuc leated/100 leukocytes 0.0 0.0-0.0 /100 WBCs LAB 789-8(LOINC) Erythrocytes 3.74 Low 4.50-5.90 x10* 6/uL LAB 718-7(LOINC) Hemoglobin 9.2 Low 13.5-17.5 g/dL LAB 4544-3(LOINC) Hematocrit 28.1 Low 41.0-52.0 % LAB 787-2(LOINC) Erythrocyte mean corpuscular volume 75 Low 80-100 fL LAB 785-6(LOINC) Erythrocyte mean corpuscular hemoglobin 24.6 Low 26.0-34.0 pg LAB 786-4(LOINC) Erythrocyte mean corpuscular hemoglobin concentration 32.7 32.0-36.0 g/dL LAB 788-0(LOINC) Erythrocyte distribution width 16.9 High 11.5-14.5 % LAB 777-3(LOINC) Platelets 58 Low 150-450 x10*3/uL LAB 770-8(LOINC) Neutrophils/100 leukocytes 97.7 40.0-80.0 % LAB 17687-5(LOINC ) Granulocytes.imm ature/100 leukocytes 0.0 0.0-0.9 % Result Comment: Immature Gra nulocyte Count (IG) includes promyelocytes, myelocytes and metamyelocytes but does not include bands. Percent differential counts (%) should be interpreted in the context of the absolute cell counts (cells/UL). LAB 736-9(LOINC) Lymphocytes/100 leukocytes 1.1 13.0-44.0 % LAB 5905-5(LOINC) Monocytes/100 leukocytes 0.8 2.0-10.0 % LAB 713-8(LOINC) Eosinophils/100 leukocytes 0.4 0.0-6.0 % LAB 706-2(LOINC) Basophils/100 leukocytes 0.0 0.0-2.0 % LAB 751-8(LOINC) Neutrophils 2.56 1.20-7.70 x10*3 /uL Result Comment: Percent diff erential counts (%) should be interpreted in the context of the absolute cell counts (cells/uL). LAB 66595-5(LOINC ) Granulocytes.imm ature 0.00 0.00-0.70 x10*3/uL LAB 731-0(LOINC) Lymphocytes 0.03 Low 1.20-4.80 x10*3 /uL LAB 742-7(LOINC) Monocytes 0.02 Low 0.10-1.00 x10*3/u L LAB 711-2(LOINC) Eosinophils 0.01 0.00-0.70 x10*3 /uL LAB 704-7(LOINC) Basophils 0.00 0.00-0.10 x10*3/u L Performed By: #### 04788-7 # ### JASON Morales ([id number]) [facility] ([facility]) [address] [place] [address] RENAL FUNCTION 2000 PANEL Collected: 8:26 PM Status: F Source: [facility] Order Comment: After arrival in PACU unless already done in the operating room. TYPE CODE TESTS RESULT OUT OF RANGE REFERENCE UNITS LAB 2345-7(LOINC) Glucose 166 High 74-99 mg/dL LAB 2951-2(LOINC) Sodium 137 136-145 mmol/L LAB 2823-3(LOINC) Potassium 3.3 Low 3.5-5.3 mmol/L LAB 2075-0(LOINC) Chloride 99 98-107 mmol/L LAB 8-9(LOINC) Carbon dioxide 28 21-32 mmo l/L LAB 13855-0(LOINC) Anion gap 13 10-20 mmol/L LAB 3094-0(LOINC) Urea nitrogen 27 High 6-23 mg/d L LAB 2160-0(LOINC) Creatinine 5.95 High 0.50-1.30 mg/dL LAB 06581-2(LOINC) Glomerular filtration rate/1.73 sq M.predicted 10 Low >60 mL/min/1 .73m*2 Result Comment: Calculations of estimated GFR are performed using the 2020 CKD- EPI Study Refit equation without the race variable for the IDMS-Traceable creatinine methods. https://jasn.asnjournals.org/content/early//ASN.5498901915 LAB 43801-4(LOINC) Calcium 7.1 Low 8.6-10.6 mg/dL LAB 2777-1(LOINC) Phosphate 3.2 2.5-4.9 mg/dL LAB 53399-0(LOINC) Albumin 3.1 Low 3.4-5.0 g/dL Performed By: #### 94334-4 # ### JASON Morales ([id number]) [facility] ([facility]) [address] [place] [address] GLUCOSE Collected: 5 8:11 PM Status: F Source: [facility] TYPE CODE TESTS RESULT OUT OF RANGE REFERENCE UNITS LAB 2341-6([facility]) Glucose 172 High 74-99 mg/dL Performed By: #### 2341-6 ## ## JASON Morales ([id number]) [facility] ([facility]) [id number] [place] [address] US KIDNEY TRANSPLANT Observed: 5 7:46 PM Status: F Source: [facility] Interpreted By: John Hendricks and Kelly Rory STUDY: US KIDNEY TRANSPLANT; 10/15/2024 10:58 pm INDICATION: Signs/Symptoms:Post Kidney Transplant. Postoperative day 1 from transplantation of a disease donor kidney within the right iliac fossa COMPARISON: None. ACCESSION NUMBER(S): [id number] ORDERING CLINICIAN: LAMBERT BROTHERS TECHNIQUE: Grayscale, color, and spectral Doppler of the kidney transplant were performed. FINDINGS: TRANSPLANT KIDNEY: Transplant kidney location: The renal transplant is located in the right iliac fossa. The transplant kidney rieufodc61.7 cm in craniocaudal dimension. There are multiple circumscribed anechoic cystic without internal septation or vascularity lesions within the transplant kidney, most notably within the superior pole of the transplant kidney measuring up to 2.0 x 1.9 x 2.4 cm compatible with simple renal cysts. There is no hydronephrosis and hydroureter. There is an anechoic perinephric fluid collection along the inferolateral margin of the transplant kidney which measures 5.6 x 1.2 x 4.8 cm within additional fluid collection inferior to the transplant kidney adjacent to the iliac vessels which demonstrates heterogenous layering components without internal flow on Doppler ultrasound, measuring 7.5 x 5.9 x 6.4 cm. DOPPLER EVALUATION: RESISTIVE INDICES: The resistive indices were as follows: 0.78 in the superior pole, 0.79 in the midpole, and 0.75 in the inferior pole. Wave forms are normal. TRANSPLANT RENAL ARTERY AND VEIN: The main renal artery velocity is 145.0 cm/s at the hilum, 84 cm/sec at the midportion and 51.6 cm/sec at the anastomosis. The adjacent iliac artery velocity is 51.2 cm/s Transplant renal vein is patent. The peak velocity in the main renal vein is 13.8 cm/s, in the adjacent iliac vein 18.2 cm/s. The venous anastomosis velocity is 48.8 cm/s. BLADDER: The bladder is decompressed with Juan catheter bulb within the lumen. IMPRESSION: 1. Mildly elevated flow velocity within the renal artery which may be secondary to postoperative edema. Otherwise, unremarkable ultrasound and Doppler evaluation of the transplant kidney as detailed above. 2. Two perinephric fluid collections as described above measuring up to 5.6 cm along the posterolateral margin of the transplant kidney and 7.5 cm along the inferior margin of the transplant kidney. Findings are suggestive of postoperative hematoma/seroma. I personally reviewed the images/study and I agree with the findings as stated by Erasto Vieira MD ([employer]). MACRO: None Signed by: Ronni Hendricks 10/16/2024 7:10 AM Dictation workstation: [id number] Collected: 10/15/2024 7:41 PM Status: F Source: [facility] TYPE CODE TESTS RESULT OUT OF RANGE REFERENCE UNITS LAB 2744-1(LOINC) pH 7.37 Low 7.38-7.42 pH LAB 2019-8(LOINC) Carbon dioxide 51 High 38-42 mm Hg LAB 2703-7(LOINC) Oxygen 536 High 85-95 mm Hg LAB 2708-6([facility]) Oxygen saturation 99 94-100 % LAB 2714-4([facility]) Oxyhemoglobin/H emoglobin.total 98.2 High 94.0-98.0 % LAB 71769-3([facility]) Hematocrit 27.0 Low 41.0-52.0 % LAB 50304-3([facility]) Sodium 133 Low 136-145 mmol/L LAB 38761-4([facility]) Potassium 3.4 Low 3.5-5.3 mmol/L LAB 54556-7([facility]) Chloride 100 98-107 mmol/L LAB 19729-0([facility]) Calcium.ionized 0.99 Low 1.10-1.33 mmol/L LAB 78393-4([facility]) Glucose 158 High 74-99 mg/dL LAB 2518-9([facility]) Lactate 0.8 0.4-2.0 mmol/L LAB 1925-7([facility]) Base excess 3.6 High -2.0-3.0 mmol/ L LAB 1960-4([facility]) Bicarbonate 29.5 High 22.0-26.0 mmol /L LAB 43915-1([facility]) Hemoglobin 8.9 Low 13.5-17.5 g/dL LAB 94007-5([facility]) Anion gap 4 7 Low 10-25 mmo/L LAB 8310-5([facility]) Body temperature 37.0 degrees Celsius Result Comment: NOTE: Patibrian t Results are Not Corrected for Temperature Performed By: #### 93395-7 # ### JASON Morales ([id number]) [facility] ([facility]) [address] [place] [address] GAS Collected: 10/15/2024 6:14 PM Status: F Source: [facility] TYPE CODE TESTS RESULT OUT OF RANGE REFERENCE UNITS LAB 2744-1([facility]) pH 7.45 High 7.38-7.42 pH LAB 2019-8([facility]) Carbon dioxide 40 38-42 mm Hg LAB 2703-7([facility]) Oxygen 214 High 85-95 mm Hg LAB 2708-6([facility]) Oxygen saturation 100 94-100 % LAB 2714-4([facility]) Oxyhemoglobin/H emoglobin.total 98.2 High 94.0-98.0 % LAB 44077-1([facility]) Hematocrit 23.0 Low 41.0-52.0 % LAB 06328-3([facility]) Sodium 133 Low 136-145 mmol/L LAB 72530-3(INC) Potassium 3.3 Low 3.5-5.3 mmol/L LAB 42625-2([facility]) Chloride 101 98-107 mmol/L LAB 74549-3([facility]) Calcium.ionized 0.97 Low 1.10-1.33 mmol/L LAB 02077-8([facility]) Glucose 113 High 74-99 mg/dL LAB 2518-9([facility]) Lactate 1.0 0.4-2.0 mmol/L LAB 1925-7([facility]) Base excess 3.5 High -2.0-3.0 mmol/ L LAB 1960-4([facility]) Bicarbonate 27.8 High 22.0-26.0 mmol /L LAB 33479-6([facility]) Hemoglobin 7.5 Low 13.5-17.5 g/dL LAB 25593-9([facility]) Anion gap 4 8 Low 10-25 mmo/L LAB 8310-5([facility]) Body temperature 37.0 degrees Celsius LAB 3150-0([facility]) Oxygen/Gas.briseida morales 50 % Performed By: #### 86318-2 # ### JASON Morales ([id number]) [facility] ([facility]) [address] [place] [address] GAS Collected: 10/15/2024 4:33 PM Status: F Source: [facility] TYPE CODE TESTS RESULT OUT OF RANGE REFERENCE UNITS LAB 2744-1([facility]) pH 7.49 High 7.38-7.42 pH LAB 2019-8([facility]) Carbon dioxide 47 High 38-42 mm Hg LAB 2703-7(INC) Oxygen 236 High 85-95 mm Hg LAB 2708-6([facility]) Oxygen saturation 99 94-100 % LAB 2714-4([facility]) Oxyhemoglobin/H emoglobin.total 97.8 94.0-98.0 % LAB 19296-8([facility]) Hematocrit 27.0 Low 41.0-52.0 % LAB 06280-7(LOINC) Sodium 136 136-145 mmol/L LAB 68382-7(INC) Potassium 3.0 Low 3.5-5.3 mmol/L LAB 67802-7(INC) Chloride 100 98-107 mmol/L LAB 15781-3([facility]) Calcium.ionized 1.05 Low 1.10-1.33 mmol/L LAB 89751-5(INC) Glucose 99 74-99 mg/dL LAB 2518-9(INC) Lactate 0.5 0.4-2.0 mmol/L LAB 1925-7(INC) Base excess 11.2 High -2.0-3.0 mmol/ L LAB 1960-4(LOINC) Bicarbonate 35.8 High 22.0-26.0 mmol /L LAB 22003-5([facility]) Hemoglobin 8.9 Low 13.5-17.5 g/dL LAB 37334-7([facility]) Anion gap 4 3 Low 10-25 mmo/L LAB 8310-5([facility]) Body temperature 37.0 degrees Celsius Result Comment: NOTE: Patien t Results are Not Corrected for Temperature LAB 3150-0([facility]) Oxygen/Gas.tota l 50 % Performed By: #### 67520-3 # ### JASON Morales ([id number]) [facility] ([facility]) [address] [place] [address] PT Collected: 5 4:30 PM Status: F Source: [facility] Order Comment: The APTT is n o longer used for monitoring Unfractionated Heparin Therapy. For monitoring Heparin Therapy, use the Heparin Assay. TYPE CODE TESTS RESULT OUT OF RANGE REFERENCE UNITS LAB 5902-2([facility]) Coagulation tissue factor induced 11.1 9.8-12.4 seconds LAB 6301-6([facility]) Coagulation tissue factor induced.INR 1.0 0.9-1.1 NA LAB 12343-4([facility]) Coagulation surface induced 27 26-36 seconds Performed By: #### 74209-2 # ### JASON Morales ([id number]) [facility] ([facility]) [address] [place] [address] PHOSPHATE Collected: 1:51 PM Status: F Source: [facility] TYPE CODE TESTS RESULT OUT OF RANGE REFERENCE UNITS LAB 2777-1(LOINC) Phosphate 3.3 2.5-4.9 mg/dL Result Comment: MILD HEMOLYS IS DETECTED. The result may be falsely elevated due to hemolysis or other interferents. Clinical correlation is recommended. Repeat testing may be considered. Performed By: #### 2777-1 ## ## JASON Morales ([id number]) [facility] ([facility]) [id number] [place] [address] BASIC METABOLIC 2000 PANEL Collected: 0 10/15/2024 1:51 PM Status: F Source: [facility] TYPE CODE TESTS RESULT OUT OF RANGE REFERENCE UNITS LAB 2345-7(LOINC) Glucose 122 High 74-99 mg/dL LAB 2951-2(LOINC) Sodium 139 136-145 mmol/L LAB 2823-3(LOINC) Potassium 3.6 3.5-5.3 mmol/L Result Comment: MILD HEMOLYS IS DETECTED. The result may be falsely elevated due to hemolysis or other interferents. Clinical correlation is recommended. Repeat testing may be considered. LAB 2075-0(LOINC) Chloride 93 Low 98-107 mmol/L LAB 8-9(LOINC) Carbon dioxide 35 High 21-32 mmo l/L LAB 34531-8(LOINC) Anion gap 15 10-20 mmol/L LAB 3094-0(LOINC) Urea nitrogen 23 6-23 mg/d L LAB 2160-0(LOINC) Creatinine 5.96 High 0.50-1.30 mg/dL LAB 12647-7(LOINC) Glomerular filtration rate/1.73 sq M.predicted 10 Low >60 mL/min/1 .73m*2 Result Comment: Calculations of estimated GFR are performed using the 2020 CKD- EPI Study Refit equation without the race variable for the IDMS-Traceable creatinine methods. https://jasn.asnjournals.org/content/early/ASN.2814929538 LAB 98283-6(LOINC) Calcium 8.6 8.6-10.6 mg/dL Performed By: #### 52670-4 # ### JASON Morales ([id number]) [facility] ([facility]) [address] [place], [place] [id number] HEPATIC FUNCTION 2000 PANEL Collected: 10/15/2024 1:5 1 PM Status: F Source: [facility] TYPE CODE TESTS RESULT OUT OF RANGE REFERENCE UNITS LAB 45730-8(LOINC ) Albumin 4.4 3.4-5.0 g/dL LAB 1974-2(LOINC) Bilirubin 0.8 0.0-1.2 mg/dL LAB 1967-7(LOINC) Bilirubin.glucur danielle dated+Bilirubin.alb umin bound 0.2 0.0-0.3 mg/dL Result Comment: MILD HEMOLYS IS DETECTED. The result may be falsely decreased due to hemolysis or other interferents. Clinical correlation is recommended. Repeat testing may be considered. LAB 6768-6(LOINC) Alkaline phosphatase 81 33-120 U/L LAB 1743-4(LOINC) Alanine aminotransferase 14 10-52 U/L Result Comment: Patients paco ated with Sulfasalazine may generate falsely decreased results for ALT. LAB 77900-8(LOINC ) Aspartate aminotransferase 30 9-39 U/L Result Comment: MILD HEMOLYS IS DETECTED. The result may be falsely elevated due to hemolysis or other interferents. Clinical correlation is recommended. Repeat testing may be considered. LAB 2885-2(LOINC) Protein 7.3 6.4-8.2 g/dL Performed By: #### 82883-9 # ### JASON Morales ([id number]) [facility] ([facility]) [address] [place], [place] [id number] HEPATITIS B VIRUS SURFACE AB Collected: 10/15/2024 1:51 PM Status: F Source: [facility] TYPE CODE TESTS RESULT OUT OF RANGE REFERENCE UNITS LAB 90721-7(LOINC) Hepatitis B virus surface Ab 28.0 High <10.0 mIU/mL Result Comment: Interpretive Criteria: <10 mIU/mL Nonreactive >=10 mIU/mL Reactive Biotin interference may cause falsely decreased results. Patients taking a Biotin dose of up to 5 mg/day should refrain from taking Biotin for 24 hours before sample collection. Providers may contact their local laboratory for further information. Performed By: #### 68079-6 # ### JASON Morales ([id number]) [facility] ([facility]) [address] [place] [address] HEPATITIS B VIRUS SURFACE AG Collected: 10/15/2024 1:51 PM Status: F Source: [facility] TYPE CODE TESTS RESULT OUT OF RANGE REFERENCE UNITS LAB 5196-1(LOINC) Hepatitis B virus surface Ag Nonreactive Nonreactive Result Comment: Biotin inter ference may cause falsely decreased results. Patients taking a Biotin dose of up to 5 mg/day should refrain from taking Biotin for 24 hours before sample collection. Providers may contact their local laboratory for further information. Performed By: #### 5196-1 ## ## JASON Morales ([id number]) [facility] ([facility]) [address] [place] [address] CYTOMEGALOVIRUS AB.IGG AVIDITY Collected: 10/15/2024 1:51 PM Status: F Source: [facility] Order Comment: Quantitative. On admission TYPE CODE TESTS RESULT OUT OF RANGE REFERENCE UNITS LAB 03665-9(LOIN C) Cytomegalovirus Ab.IgG avidity Reactive Abnormal Nonreactive Performed By: #### 39132-5 # ### JASON Morales ([id number]) [facility] ([facility]) [address] [place] [address] HEPATITIS C VIRUS AB Collected: 1:51 PM Status: F Source: [facility] TYPE CODE TESTS RESULT OUT OF RANGE REFERENCE UNITS LAB 00327-8(LOINC) Hepatitis C virus Ab NON-REACTIVE Nonreactive Result Comment: Results from patients taking biotin supplements or receiving high-dose biotin therapy should be interpreted with caution due to possible interference with this test. Providers may contact their local laboratory for further information. Performed By: #### 46066-7 # ### JASON Morales ([id number]) [facility] ([facility]) [address] [place] [address] HIV 1+2 AB+HIV1 P24 AG Collected: 10/15 1:51 PM Status: F Source: [facility] Order Comment: HIV Ag/Ab scr een is performed using the Digify HIV Ag/Ab Combo assay which detects the presence of HIV p24 antigen as well as antibodies to HIV-1 (Group M and O) and HIV-2. No laboratory evidence of HIV infection. If acute HIV infection is suspected, consider testing for HIV RNA by PCR (viral load). TYPE CODE TESTS RESULT OUT OF RANGE REFERENCE UNITS LAB 25479-3([facility]) HIV 1+2 Ab+HIV1 p24 Ag Nonreactive Nonreactive Performed By: #### 14300-0 # ### JASON Morales ([id number]) [facility] ([facility]) [address] [place] [address] HEPATITIS B VIRUS CORE AB Collected: 10/15/2024 1:51 PM Status: F Source: [facility] TYPE CODE TESTS RESULT OUT OF RANGE REFERENCE UNITS LAB 12472-1([facility]) Hepatitis B virus core Ab Nonreactive Nonreactive Performed By: #### 04145-2 # ### JASON Morales ([id number]) [facility] ([facility]) [address] [place] [address] JOSELUIS ARGUETA VIRUS NUCLEAR AB Collected : 10/15/2024 1:51 PM Status: F Source: [facility] Order Comment: EBV INTERPRET ATION CHART PRIMARY ACUTE VCA-IGG: +/- VCA-IGM: +/- EA-IGG: +/- NA-IGG: - LATE ACUTE VCA-IGG: + VCA-IGM: +/- EA-IGG: +/- NA-IGG: +/-RECOVERING VCA-IGG: + VCA-IGM: - EA-IGG: + NA-IGG: - PREVIOUS INFECTION VCA-IGG: + VCA-IGM: - EA-IGG: - NA-IGG: +/- TYPE CODE TESTS RESULT OUT OF RANGE REFERENCE UNITS LAB 89934-7([facility]) Joseluis Argueta virus nuclear Ab Positive Abnormal Negative Performed By: #### 88660-2 # ### JASON Morales ([id number]) [facility] ([facility]) [address] [place] [address] HEPATITIS C VIRUS RNA PANEL Collected: 10/15/2024 1:51 PM Status: F Source: [facility] Order Comment: Reportable Ra nge: 15-100,000,000 IU/mL. The sophie HCV is an in vitro nucleic acid amplification test for both the detection and quantitation of hepatitis C virus (HCV) RNA, in human EDTA plasma or serum, of HCV antibody positive or HCV-infected individuals on the sophie [employer]/8800 Systems. Dual probes are used to detect and quantify, but not discriminate HCV genotypes 1-6. Though rare, mutations within the highly conserved regions of a viral genome covered by sophie HCV may affect primer and/or probe binding resulting in the under-quantitation of virus or failure to detect the presence of virus. The analytical quantification range of this assay has been determined to be 15 to 100,000,000 IU/ml in plasma. If the assay DETECTED the presence of the virus but was not able to accurately quantify the number of copies, the test result will be reported as "<15 Detected" or ">100,000,000 Detected". The sophie HCV is intended for use [...] the end of follow up of treatment to determine sustained or non-sustained viral response. The results must be interpreted within the context of all relevant clinical and laboratory findings. This test is approved by the [place] Food and Drug Administration, and its performance characteristics verified by the [facility], Department of Pathology, [facility]. TYPE CODE TESTS RESULT OUT OF RANGE REFERENCE UNITS LAB HCVLO HCV RNA, PCR LOG Result Comment: Not calculat ed LAB HCVRNAR HCV RNA RESULT NOT DETECTED Not detected Performed By: #### 14796-7 # ### JASON Morales ([id number]) [facility] ([facility]) [address] [place] [address] CALCIDIOL Collected: 5 1:51 PM Status: F Source: [facility] Order Comment: Deficiency: < 20 ng/ml Insufficiency: 20-29 ng/ml Sufficiency: 30-100 ng/ml This assay accurately quantifies the sum of Vitamin D3, 25-Hydroxy and Vitamin D2,25-Hydroxy. TYPE CODE TESTS RESULT OUT OF RANGE REFERENCE UNITS LAB 1988-08(LOINC) Calcidiol 68 30-100 ng/mL Performed By: #### 1988-08 ## ## JASON Morales ([id number]) [facility] ([facility]) [address] [place] [address] GAS PANEL Collected: 10/15/2024 1:50 PM Status: F Source: [facility] TYPE CODE TESTS RESULT OUT OF RANGE REFERENCE UNITS LAB 2746-6(LOINC) pH 7.44 High 7.33-7.43 pH LAB 2020-4(LOINC) Carbon dioxide 54 High 41-51 mm Hg LAB 2705-2(LOINC) Oxygen 41 35-45 mm Hg LAB 2711-0(LOINC) Oxygen saturation 70 45-75 % LAB 2716-9(LOINC) Oxyhemoglobin/H emoglobin.total 69.2 45.0-75.0 % LAB 05719-6(LOINC) Hematocrit 34.0 Low 41.0-52.0 % LAB 30042-7(LOINC) Sodium 135 Low 136-145 mmol/L LAB 08412-3(LOINC) Potassium 3.9 3.5-5.3 mmol/L LAB 25646-6(LOINC) Chloride 97 Low 98-107 mmol/L LAB 81363-1(LOINC) Calcium.ionized 1.00 Low 1.10-1.33 mmol/L LAB 18139-9(LOINC) Glucose 126 High 74-99 mg/dL LAB 2519-7(LOINC) Lactate 1.1 0.4-2.0 mmol/L LAB 1927-3(LOINC) Base excess 10.8 High -2.0-3.0 mmol/ L LAB 44410-0(LOINC) Bicarbonate 36.7 High 22.0-26.0 mmo l/L LAB 40693-5(LOINC) Hemoglobin 11.2 Low 13.5-17.5 g/dL LAB 90120-8(LOINC) Anion gap 4 5.0 Low 10.0-25.0 mmo l/L LAB 8310-5(LOINC) Body temperature 37.0 degrees Celsius LAB 3150-0([facility]) Oxygen/Gas.tota l 21 % Performed By: #### 05231-8 # ### JASON Morales ([id number]) [facility] ([facility]) [address] [place], [place] [id number] BLOOD TYPE Collected: 1:50 PM Status: F Source: [facility] Order Comment: As needed pre procedure ONCE for scheduled for aortic, liver, cardiac, or thoracic surgery OR hgb<7.5mg/dl and no active type and screen. RN to release order. TYPE CODE TESTS RESULT OUT OF RANGE REFERENCE UNITS LAB 883-9([facility]) ABO group B LAB 1305-2([facility]) D Ag POS LAB 890-4([facility]) Blood group antibody screen NEG Performed By: #### 53348-7 # ### JASON Morales ([id number]) [facility] ([facility]) [address] [place] [address] ECG 12-LEAD Observed: 10/15/2024 1:24 PM Status: F Source: [facility] Ventricular Rate 65 Atrial Rate 65 P-R Interval 196 QRS Duration 158 Q-T Interval 484 QTC Calculation(Bazett) 503 P Dearborn 63 R Dearborn -53 T Dearborn 40 QRS Count 11 Q Onset 226 P Onset 128 P Offset 188 T Offset 468 QTC Fredericia 496 Diagnosis Normal sinus rhythm Left axis deviation Right bundle branch block Abnormal ECG When compared with ECG of 18-NOV-2023 10:21, Right bundle branch block is now Present Criteria for Septal infarct are no longer Present Confirmed by Garrett Galvin ([id number]) on 10/26/2024 7:05:05 PM XR CHEST 1 VIEW Observed: 10/15/2024 12:43 PM Status: F Source: [facility] Interpreted By: Stevie Stuart and Liu Scott STUDY: XR CHEST 1 VIEW; 10/15/2024 1:35 pm INDICATION: Signs/Symptoms:pre procedure for possible transplant recipient. COMPARISON: Chest x-ray 09/09/2024 ACCESSION NUMBER(S): [id number] ORDERING CLINICIAN: LAMBERT BROTHERS FINDINGS: AP radiograph of the chest was provided. CARDIOMEDIASTINAL SILHOUETTE: Cardiomediastinal silhouette is normal in size and configuration. LUNGS: No focal consolidation, pleural effusion or pneumothorax. ABDOMEN: No remarkable upper abdominal findings. BONES: No acute osseous changes. IMPRESSION: 1. No evidence of acute cardiopulmonary process. I personally reviewed the images/study and I agree with the findings as stated by resident physician Ace Martinez MD. This study was interpreted at [facility], [place], [place]. MACRO: None Signed by: Stevie Stuart 10/15/2024 2:46 PM Dictation workstation: [id number] FLOW ALLOCROSSMATCH PEAK Collected: 02/2025 12:00 AM Status: F Source: [facility] Order Comment: Test performe d at: [facility] Histocompatibility and Immunogenetics Laboratory [facility], [address]th Floor [address] [place] [address] TYPE CODE TESTS RESULT OUT OF RANGE REFERENCE UNITS LAB FLALP FLOW ALLOCROSSMATCH PEAK See Flow Allocrossmatch Report LAB HLARES HLA RESULTS See Flow Allocrossmatch Report Performed By: #### FLALP ### # ANTHONY YAN S ([id number]) HLA LAB ([facility]) [address] [place] [address] FLOW ALLOCROSSMATCH Collected: 10/15/2024 12:00 AM S tatus: F Source: [facility] Order Comment: Test performe d at: [facility] Histocompatibility and Immunogenetics Laboratory [facility], 6th Floor [address] [place] [address] TYPE CODE TESTS RESULT OUT OF RANGE REFERENCE UNITS LAB FLALL FLOW ALLOCROSSMATCH LAB HLARES HLA RESULTS See Attached Performed By: #### FLALL ### # ANTHONY YAN S ([id number]) HLA LAB ([facility]) [address] [place] [address] HLA DNA TYPE PANEL Collected: 12:00 AM Status: F Source: [facility] Order Comment: Test performe d at: [facility] Histocompatibility and Immunogenetics Laboratory [facility], [address]th Floor [address] [place] [address] TYPE CODE TESTS RESULT OUT OF RANGE REFERENCE UNITS LAB 65302-1([facility]) HLA-A AND B AND C (class I) typing panel LAB 07015-2([facility]) HLA-DRB1 LAB 97551-6([facility]) HLA-DQB1 LAB 15945-2([facility]) HLA-DP2 LAB HLARES HLA RESULTS Charges for UNOS Donor HLA Typing Performed By: #### HLADNA ## ## ANTHONY HEREDIA S ([id number]) HLA LAB ([facility]) [address] [place] [address] VIRTUAL XM Collected: 5 12:00 AM Status: F Source: [facility] Order Comment: Test performe d at: [facility] Histocompatibility and Immunogenetics Laboratory [facility], 6th Floor [address] [place], [place] [address] TYPE CODE TESTS RESULT OUT OF RANGE REFERENCE UNITS LAB PATHXM PATH REVIEW-VIRTUAL CROSSMATCH D.ANDERSON LAB DIAGXM DIAGNOSIS-VIRTU AL CROSSMATCH N18.6 LAB PIDXM PATHOLOGIST ID-VIRTUAL CROSSMATCH 55644-AR Performed By: #### VXMC #### ANTHONY HEREDIA S ([id number]) HLA LAB ([facility]) [address] [place] [address] FREEZE CROSSMATCH Collected: 12:00 AM Status: F Source: [facility] Order Comment: Test performe d at: [facility] Histocompatibility and Immunogenetics Laboratory [facility], 6th Floor [address] [place], [place] [address]Test performed at: [facility] Histocompatibility and Immunogenetics Laboratory [facility], [address]th Floor [address] [place], [place] [address]Test performed at: [facility] Histocompatibility and Immunogenetics Laboratory [facility], [address]th Floor [address] [place], [place] [address] TYPE CODE TESTS RESULT OUT OF RANGE REFERENCE UNITS LAB HLFXM FREEZE CROSSMATCH Frozen Sample Performed By: #### HLFXM ### # ANTHONY HEREDIA S ([id number]) HLA LAB ([facility]) [address] [place] [address] TRANSTHORACIC ECHO (TTE) COMPLETE Observed: 10/07/2024 12:58 PM Status: F Source: [facility], [address], [address], [place], [place] [address] and TRANSTHORACIC ECHOCARDIOGRAM REPORT Patient Name: THOM CHAPIN Reading Physician: [id number] Andrae Mcnally MD Study Date: 10/07/2024 Ordering Provider: [id number] KOBE STOREY MRN/PID: [id number] Fellow: Nurse: Date of /Age: 3 1970 Electrolysis Engineer: Artem park RDCS, ARMINDA Gender assigned at M Additional Staff: : Height: 190.50 cm Admit Date: Weight: 67.13 kg Admission Status: Outpatient BSA / BMI: 1.93 m2 / 18.50 kg/m2 Blood Pressure: 117/69 mmHg Department Location: [facility] Study Type: TRANSTHORACIC ECHO (TTE) COMPLETE Diagnosis/ICD: Encounter for other preprocedural examination-Z01.818 Indication: Pre-transplant evaluation for kidney transplant CPT Code: Echo Complete w Full Doppler-[id number] Patient History: Pertinent History: Diabetic renal disease, ESRD w/HD, CAD, chest pain, shortness of breath, [place], HTN. Study Detail: The following Echo studies [...] LA Area A2C: 16.4 cm2 LA Major Dearborn A4C: 4.4 cm LA Major Dearborn A2C: 5.0 cm LA Volume Index: 23.9 [...] 8.06 (<8.0) a' 0.10 m/s PulmV Sys Abel: 46.53 cm/s PulmV Farrar Abel: 36.86 cm/s PulmV S/D Abel: 1.26 PulmV A Revs Abel: 21.70 cm/s PulmV A Revs Dur: 72.31 msec MITRAL VALVE: Normal Ranges: MV DT: 269 msec (150-240msec) AORTIC VALVE: Normal Ranges: AoV Vmax: 0.95 m/s (<=1.7m/s) AoV Peak P.6 mmHg (<20mmHg) LVOT Max Abel: 0.90 m/s (<=1.1m/s) LVOT VTI: 17.92 cm [...] Accel Time: 151 msec (>120ms) PV Max Abel: 0.7 m/s (0.6-0.9m/s) PV Max P.9 mmHg PULMONARY VEINS: PulmV A Revs Dur: 72.31 msec PulmV A Revs Abel: 21.70 cm/s PulmV Farrar Abel: 36.86 cm/s PulmV S/D Abel: 1.26 PulmV Sys Abel: 46.53 cm/s AORTA: Asc Ao Diam 2.80 cm [id number] Andrae Mcnally MD Electronically signed on 10/07/2024 at 5:32:17 PM Final XR PANOREX Observed: 09/09/2024 11:27 AM Status: F Source: [facility] Interpreted By: Ty Key, STUDY: XR PANOREX; ; 09/09/2024 12:52 pm INDICATION: Signs/Symptoms:Dental Clearance Needed for Kidney Transplant Listing. ,Z01.818 Encounter for other preprocedural examination COMPARISON: None. ACCESSION NUMBER(S): [id number] ORDERING CLINICIAN: LAMBERT BROTHERS FINDINGS: Orthopantomogram. Edentulous patient. The paranasal sinuses are well pneumatized. No fractures. No dislocations. IMPRESSION: Edentulous patient. MACRO: None Signed by: Heriberto Key 09/09/2024 1:44 PM Dictation workstation: [id number] XR CHEST 2 VIEWS Observed: 09/09/2024 11:14 AM Status: F Source: [facility] Interpreted By: Ty Key, STUDY: XR CHEST 2 VIEWS; 09/09/2024 11:42 am INDICATION: Signs/Symptoms:prekidney recipient transplant evaluation. ,Z01.818 Encounter for other preprocedural examination COMPARISON: 03/11/2024 ACCESSION NUMBER(S): [id number] ORDERING CLINICIAN: LAMBERT BROTHERS FINDINGS: PA and lateral radiographs of the chest were provided. CARDIOMEDIASTINAL SILHOUETTE: Cardiomediastinal silhouette is normal in size and configuration. LUNGS: No focal consolidation, pleural effusion, or pneumothorax. ABDOMEN: No remarkable upper abdominal findings. BONES: No acute osseous changes. IMPRESSION: 1. No evidence of acute cardiopulmonary process. MACRO: None Signed by: Heriberto Key 09/09/2024 1:45 PM Dictation workstation: [id number] HEMOGLOBIN A1C/HEMOGLOBIN.TOTAL Collect ed: 09/09/2024 11:07 AM Status: F Source: [facility] Order Comment: Diagnosis of Diabetes-Adults Non-Diabetic: < or = 5.6% Increased risk for developing diabetes: 5.7-6.4% Diagnostic of diabetes: > or = 6.5% TYPE CODE TESTS RESULT OUT OF RANGE REFERENCE UNITS LAB 4548-4(LOINC ) Hemoglobin A1c/Hemoglob in.total 6.5 High See comment % LAB 87614-7(LOIN C) Estimated average glucose 140 Not Established mg/dL Performed By: #### 4548-4 ## ## JASON Morales ([id number]) [facility] ([facility]) [address] [place] [address] URINALYSIS COMPLETE W REFLEX CULTURE PANEL Collected: 09/09/2024 11:07 AM Status: F Source: [facility] TYPE CODE TESTS RESULT OUT OF RANGE REFERENCE UNITS LAB 85094-6(LOINC) Leukocytes NONE 1-5, NONE /HPF LAB 63771-8(LOINC) Erythrocytes 1-2 NO NE, 1-2, 3-5 /HPF Performed By: #### 22137-8 # ### JASON Morales ([id number]) [facility] ([facility]) [address] [place] [address]649 URINALYSIS COMPLETE W REFLEX CULTURE PANEL Collected: 09/09/2024 11:07 AM Status: F Source: [facility] TYPE CODE TESTS RESULT OUT OF RANGE REFERENCE UNITS LAB 5778-6(LOINC) Color Light-Yellow Lig ht-Yellow , Yellow, Dark-Yellow LAB 5767-9(LOINC) Appearance Clear Clear LAB 16848-2(LOINC) Specific gravity 1.011 1.005-1.035 LAB 72567-1(LOINC) pH 8.0 5.0, 5.5, 6.0, 6.5, 7.0, 7.5, 8.0 LAB 54433-8(LOINC) Protein 100 (2+) Abnormal NEGAT PAPI, 10 (TRACE), 20 (TRACE) mg/dL LAB 66475-7(LOINC) Glucose 100 (1+) Abnormal Normal mg/dL LAB 01683-6(LOINC) Erythrocytes NEGATIVE NEGATIVE mg /dL LAB 18630-5(LOINC) Ketones NEGATIVE NEGATIVE mg/dL LAB 11134-5(LOINC) Bilirubin NEGATIVE NEGATIVE mg/dL LAB 97835-4(LOINC) Urobilinogen Normal Normal mg/d L LAB 94784-9(LOINC) Nitrite NEGATIVE NEGATIVE LAB 27783-3(LOINC) Leukocyte esterase NEGATIVE NEGATIVE Performed By: #### 61768-7 # ### JASON Morales ([id number]) [facility] ([facility]) [address] [place], [place] [address] COMPLETE BLOOD COUNT PANEL Collected: 09/09/2024 11:0 7 AM Status: F Source: [facility] TYPE CODE TESTS RESULT OUT OF RANGE REFERENCE UNITS LAB 6690-2(LOINC) Leukocytes 3.6 Low 4.4-11.3 x10*3/ uL LAB 42873-9(LOINC) Erythrocytes.nuc l eated/100 leukocytes 0.0 0.0-0.0 /100 WBCs LAB 789-8(LOINC) Erythrocytes 4.49 Low 4.50-5.90 x10* 6/uL LAB 718-7(LOINC) Hemoglobin 10.7 Low 13.5-17.5 g/dL LAB 4544-3(LOINC) Hematocrit 34.3 Low 41.0-52.0 % LAB 787-2(LOINC) Erythrocyte mean corpuscular volume 76 Low 80-100 fL LAB 785-6(LOINC) Erythrocyte mean corpuscular hemoglobin 23.8 Low 26.0-34.0 pg LAB 786-4(LOINC) Erythrocyte mean corpuscular hemoglobin concentration 31.2 Low 32.0-36.0 g/dL LAB 788-0(LOINC) Erythrocyte distribution width 16.6 High 11.5-14.5 % LAB 777-3(LOINC) Platelets 93 Low 150-450 x10*3/uL Performed By: #### 31101-6 # ### JASON Morales ([id number]) [facility] ([facility]) [address] [place] [id number] HEPATITIS B VIRUS SURFACE AB Collected: 09/09/2024 11:07 AM Status: F Source: [facility] TYPE CODE TESTS RESULT OUT OF RANGE REFERENCE UNITS LAB 99994-7(LOINC) Hepatitis B virus surface Ab 25.1 High <10.0 mIU/mL Result Comment: Interpretive Criteria: <10 mIU/mL Nonreactive >=10 mIU/mL Reactive Biotin interference may cause falsely decreased results. Patients taking a Biotin dose of up to 5 mg/day should refrain from taking Biotin for 24 hours before sample collection. Providers may contact their local laboratory for further information. Performed By: #### 39334-5 # ### JASON Morales ([id number]) [facility] ([facility]) [address] [place] [address] PHOSPHATE Collected: 11:07 AM Status: F Source: [facility] TYPE CODE TESTS RESULT OUT OF RANGE REFERENCE UNITS LAB 2777-1(LOINC) Phosphate 4.1 2.5-4.9 mg/dL Result Comment: The performa nce characteristics of phosphorus testing in heparinized plasma have been validated by the individual laboratory site where testing is performed. Testing on heparinized plasma is not approved by the FDA; however, such approval is not necessary. Performed By: #### 2777-1 ## ## JASON Morales ([id number]) [facility] ([facility]) [address] [place] [address] UREA NITROGEN Collected: 11:07 AM Status: F Source: [facility] TYPE CODE TESTS RESULT OUT OF RANGE REFERENCE UNITS LAB 3094-0(LOINC) Urea nitrogen 36 High 6-23 mg/d L Performed By: #### 3094-0 ## ## JASON Morales ([id number]) [facility] ([facility]) [address] [place], [place] [address] HEPATIC FUNCTION 2000 PANEL Collected: 09/09/2024 11: 07 AM Status: F Source: [facility] TYPE CODE TESTS RESULT OUT OF RANGE REFERENCE UNITS LAB 03011-4(LOINC ) Albumin 4.3 3.4-5.0 g/dL LAB 1974-(LOINC) Bilirubin 0.7 0.0-1.2 mg/dL LAB 7(LOINC) Bilirubin.glucur danielle dated+Bilirubin.alb umin bound 0.2 0.0-0.3 mg/dL LAB 6768-6(LOINC) Alkaline phosphatase 89 33-120 U/L LAB 1743-4(LOINC) Alanine aminotransferase 19 10-52 U/L Result Comment: Patients paco ated with Sulfasalazine may generate falsely decreased results for ALT. LAB 32055-5(LOINC ) Aspartate aminotransferase 23 9-39 U/L LAB 2885-2(LOINC) Protein 7.3 6.4-8.2 g/dL Performed By: #### 50379-5 # ### JASON Morales ([id number]) [facility] ([facility]) [address] [place] [address] CREATININE Collected: 11:07 AM Status: F Source: [facility] TYPE CODE TESTS RESULT OUT OF RANGE REFERENCE UNITS LAB 2160-0(LOINC) Creatinine 7.95 High 0.50-1.30 mg/dL LAB 24782-5(LOINC) Glomerular filtration rate/1.73 sq M.predicted 7 Low >60 mL/min/1 .73m*2 Result Comment: Calculations of estimated GFR are performed using the 2020 CKD- EPI Study Refit equation without the race variable for the IDMS-Traceable creatinine methods. https://jasn.asnjournals.org/content/early//ASN.7087060835 Performed By: #### 2160-0 ## ## JASON Morales ([id number]) [facility] ([facility]) [address] [place], [place] [address] AMYLASE Collected: 11:07 AM Status: F Source: [facility] TYPE CODE TESTS RESULT OUT OF RANGE REFERENCE UNITS LAB 1798-8(LOINC) Amylase 115 High 29-103 U/L Performed By: #### 1798-8 ## ## JASON Morales ([id number]) [facility] ([facility]) [address] [place] [id number] LIPID PANEL NON-FASTING Collected: 08/2024 11:07 AM Status: F Source: [facility] TYPE CODE TESTS RESULT OUT OF RANGE REFERENCE UNITS LAB 2093-3(LOINC) Cholesterol 102 0-199 mg/dL Result Comment: Age Desirabl e Borderline High High 0-19 Y 0 - 169 170 - 199 >/= 200 20-24 Y 0 - 189 190 - 224 >/= 225 >24 Y 0 - 199 200 - 239 >/= 240 All ranges are based on fasting samples. Specific therapeutic targets will vary based on patient-specific cardiac risk. Pediatric guidelines reference:Pediatrics 2011, 128(S5).Adult guidelines reference: NCEP ATPIII Guidelines,REMEDIOS 2001, 258:2486-97 Venipuncture immediately after or during the administration of Metamizole may lead to falsely low results. Testing should be performed immediately prior to Metamizole dosing. LAB 2085-9(LOINC) Cholesterol.in HDL 44.9 mg/dL Result Comment: Age Very Low Low Normal High 0-19 Y < 35 < 40 40-45 ---- 20-24 Y ---- < 40 >45 ---- >24 Y ---- < 40 40-60 >60 LAB CHHDL CHOLESTEROL/HDL RATIO 2.3 NA Result Comment: Ref Values Desirable < 3.4 High Risk > 5.0 LAB NHDL2 NON-HDL CHOLESTEROL 57 0-149 mg/dL Result Comment: Age Desiable Borderline High High Very High 0-19 Y 0 - 119 120 - 144 >/= 145 >/= 160 20-24 Y 0 - 149 150 - 189 >/= 190 ---- >24 Y 30 MG/DL ABOVE LDL CHOLESTEROL GOAL Performed By: #### SANDRA ### # JASON Morales ([id number]) [facility] ([facility]) [address] [place] [address] HEPATITIS B VIRUS SURFACE AG Collected: 09/09/2024 11:07 AM Status: F Source: [facility] TYPE CODE TESTS RESULT OUT OF RANGE REFERENCE UNITS LAB 5196-1([facility]) Hepatitis B virus surface Ag Nonreactive Nonreactive Result Comment: Biotin inter ference may cause falsely decreased results. Patients taking a Biotin dose of up to 5 mg/day should refrain from taking Biotin for 24 hours before sample collection. Providers may contact their local laboratory for further information. Performed By: #### 5196-1 ## ## JASON Morales ([id number]) [facility] ([facility]) [address] [place] [address] COAGULATION TISSUE FACTOR INDUCED Collected: 09/09/2024 11:07 AM Status: F Source: [facility] TYPE CODE TESTS RESULT OUT OF RANGE REFERENCE UNITS LAB 5902-2([facility]) Coagulation tissue factor induced 11.2 9.8-12.4 seconds LAB 6301-6([facility]) Coagulation tissue factor induced.INR 1.0 0.9-1.1 NA Performed By: #### 5902-2 ## ## JASON Morales ([id number]) [facility] ([facility]) [address] [place] [address] CYTOMEGALOVIRUS AB.IGG AVIDITY Collected: 09/09/2024 11:07 AM Status: F Source: [facility] TYPE CODE TESTS RESULT OUT OF RANGE REFERENCE UNITS LAB 17284-8(LOIN C) Cytomegalovirus Ab.IgG avidity Reactive Abnormal Nonreactive Performed By: #### 26401-3 # ### JASON Morales ([id number]) [facility] ([facility]) [address] [place], [place] [phone] HEPATITIS C VIRUS AB Collected: 11:07 AM Status: F Source: [facility] TYPE CODE TESTS RESULT OUT OF RANGE REFERENCE UNITS LAB 81145-8([facility]) Hepatitis C virus Ab NON-REACTIVE Nonreactive Result Comment: Results from patients taking biotin supplements or receiving high-dose biotin therapy should be interpreted with caution due to possible interference with this test. Providers may contact their local laboratory for further information. Performed By: #### 70619-3 # ### JASON Morales ([id number]) [facility] ([facility]) [address] [place], [place] [phone] HEPATITIS B VIRUS CORE AB Collected: 11:07 AM Status: F Source: [facility] TYPE CODE TESTS RESULT OUT OF RANGE REFERENCE UNITS LAB 48008-4([facility]) Hepatitis B virus core Ab Nonreactive Nonreactive Performed By: #### 85320-9 # ### JASON Morales ([id number]) [facility] ([facility]) [address] [place], [place] [phone] HIV 1+2 AB+HIV1 P24 AG Collected: 09/09 11:07 AM Status: F Source: [facility] Order Comment: HIV Ag/Ab scr een is performed using the Siemens FixmollEventful HIV Ag/Ab Combo assay which detects the presence of HIV p24 antigen as well as antibodies to HIV-1 (Group M and O) and HIV-2. No laboratory evidence of HIV infection. If acute HIV infection is suspected, consider testing for HIV RNA by PCR (viral load). TYPE CODE TESTS RESULT OUT OF RANGE REFERENCE UNITS LAB 27662-6([facility]) HIV 1+2 Ab+HIV1 p24 Ag Nonreactive Nonreactive Performed By: #### 85289-1 # ### JASON Morales ([id number]) [facility] ([facility]) [address] [place] [address] TREPONEMA PALLIDUM AB.IGG+IGM Collected : 09/09/2024 11:07 AM Status: F Source: [facility] TYPE CODE TESTS RESULT OUT OF RANGE REFERENCE UNITS LAB 30030-5([facility]) Treponema pallidum Ab.IgG+IgM Nonreactive Nonreactive Result Comment: No significa nt level of Treponema pallidum antibody detected. Repeat testing in 2 to 4 weeks may be considered if early infection or incubating syphilis infection is suspected. Performed By: #### 97766-9 # ### JASON Morales ([id number]) [facility] ([facility]) [address] [place] [address] C PEPTIDE Collected: 11:07 AM Status: F Source: [facility] TYPE CODE TESTS RESULT OUT OF RANGE REFERENCE UNITS LAB 1986-9([facility]) C peptide 3.0 0.7-3.9 ng/mL Performed By: #### 1986-9 ## ## JASON Morales ([id number]) [facility] ([facility]) [address] [place] [address] 74034 JOSELUIS-ARGUETA VIRUS ANTIBODY PANEL Collected: 09/09/2024 11:07 AM Status: F Source: [facility] Order Comment: EBV INTERPRET ATION CHART PRIMARY ACUTE VCA-IGG: +/- VCA-IGM: +/- EA-IGG: +/- NA-IGG: - LATE ACUTE VCA-IGG: + VCA-IGM: +/- EA-IGG: +/- NA-IGG: +/-RECOVERING VCA-IGG: + VCA-IGM: - EA-IGG: + NA-IGG: - PREVIOUS INFECTION VCA-IGG: + VCA-IGM: - EA-IGG: - NA-IGG: +/- TYPE CODE TESTS RESULT OUT OF RANGE REFERENCE UNITS LAB 5157-3(LOINC) Joseluis Argueta virus capsid Ab.IgG Positive Abnormal Negative LAB 5159-9(LOINC) Joseluis Argueta virus capsid Ab.IgM Negative Negative LAB 31056-4(LOINC) Joseluis Argueta virus early Ab.IgG Negative Negative LAB 52066-3(LOINC) Joseluis Argueta virus nuclear Ab Positive Abnormal Negative Performed By: #### EBVP1 ### # JASON Morales ([id number]) [facility] ([facility]) [address] [place] [address] VARICELLA ZOSTER VIRUS AB.IGG Collected : 09/09/2024 11:07 AM Status: F Source: [facility] Order Comment: NEGATIVE: No IgG antibodies specific to VZV [...] was exposed to VZV through infection or vaccination. The interpretation of serological tests should take into account the immunological status of the patient. Test results for patients, including immunocompromised patients, neonates, and pediatric patients, reflect their capacity to respond immunologically to the virus as well as their exposure to the pathogen. Patients treated with IVIG may demonstrate altered results in serological assays. TYPE CODE TESTS RESULT OUT OF RANGE REFERENCE UNITS LAB 51476-2(LOINC ) Varicella zoster virus Ab.IgG POSITIVE Abnormal Negative LAB IVARG VARICELLA ZOSTER IGG INDEX 2.1 High <=0.8 IA Performed By: #### 81847-8 # ### JASON Morales ([id number]) [facility] ([facility]) [address] [place] [address] ABO Collected: 11:07 AM Status: F Source: [facility] TYPE CODE TESTS RESULT OUT OF RANGE REFERENCE UNITS LAB 883-9(LOINC) ABO group B LAB 1305-2(LOINC) D Ag POS Performed By: #### 48587-0 # ### JASON Morales ([id number]) [facility] ([facility]) [address] [place] [address] MYCOBACTERIUM TUBERCULOSIS STIMULATED GAMMA INTERFERON Collected: 09/09/2024 11:07 AM Status: F Source: [facility] TYPE CODE TESTS RESULT OUT OF RANGE REFERENCE UNITS LAB 20878-7(LOINC) Mycobacterium tuberculosis stimulated gamma interferon Negative Negative Result Comment: A negative test result does not exclude the [...] qualitative and results are reported as positive, borderline, or negative, given that the test controls perform as expected. In line with the Centers for Disease Control and Prevention's 2010 recommendation to report quantitative measurements alongside the qualitative result, the laboratory provides spot counts for informational purposes only. The T-SPOT.TB test should not be interpreted as a quantitative test. LAB 26580-0(LOINC) Mycobacterium tuberculosis stimulated gamma interferon.ESAT- 6 Ag spot count 0 LAB 19943-6(LOINC) Mycobacterium tuberculosis stimulated gamma interferon.CFP10 Ag spot count 0 LAB 70955-3(LOINC) Gamma interferon.negat papi control spot count Passed LAB 81032-1(LOINC) Mitogen stimulated gamma interferon.posit papi control spot count Passed Result Comment: For additional information, please refer to [email or web address].Homeforswap/faq/TBJ561 (This link is being provided for informational/ educational purposes only.) Performed By: #### 81894-5 # ### JURGEN WONG ([id number]) [address] [place], [place] DRUG PROFILE 9, BLOOD W/ REF MARTA TO CONFIRMATION Collected: 09/09/2024 11:07 AM Status: F Source: [facility] TYPE CODE TESTS RESULT OUT OF RANGE REFERENCE UNITS LAB 8149-7(LOINC) Amphetamines Negative Cutoff 20 ng /mL LAB 3777-0(LOINC) Methamphetamine Negative Cutoff 20 ng/mL LAB 57657-0(LOINC ) Benzodiazepines Negative Cutoff 50 ng/mL LAB 3413-2(LOINC) Buprenorphine Negative Cutoff 1 ng /mL LAB 8172-9(LOINC) Cannabinoids Positive Cutoff 20 ng /mL Result Comment: If the scree n is positive, then confirmation by mass spectrometry will be added. Additional charges will apply. Unconfirmed positive may be useful for medical purposes, but does not meet forensic standards. LAB 8191-9(LOINC) Cocaine Negative Cutoff 20 ng/mL LAB 60656-2(LOINC ) Methadone Negative Cutoff 25 ng/mL LAB 16934-1(LOINC ) oxyCODONE Negative Cutoff 20 ng/mL LAB 8236-2(LOINC) Phencyclidine Negative Cutoff 10 n g/mL LAB 8219-8(LOINC) Opiates Negative Cutoff 20 ng/mL LAB 19127-2(LOINC ) Annotation comment See Note Result Comment: INTERPRETIVE INFORMATION: Drug Screen 9 Panel, Serum or Plasma - Immunoassay Screen with Reflex to Mass Spectrometry Confirmation/Quantitation 1. Methodology: Qualitative Immunoassay Screen 2. Drugs/Drug classes reported as "Positive" are automatically reflexed to mass spectrometry confirmation/quantitation [...] Interpretive questions should be directed to the laboratory. 4. For medical purposes only; not valid for forensic use. This test was developed and its performance characteristics determined by [facility]. It has not been cleared or approved by the US Food and Drug Administration. This test was performed in a CLIA certified laboratory and is intended for clinical purposes. Performed By: [facility] [address] [place] [address] Adhesion Tester: Trevor Machado MD, PhD CLIA Number: [id number] LAB 71951-1([facility] ) Barbiturates Negative Cutoff 50 ng/mL Performed By: #### [id number] ### # [facility] ([facility]) ([id number]) [address] [place] [address] NICOTINE AND METABOLITES,S Collected: 0 09/09/2024 11:07 AM Status: F Source: [facility] TYPE CODE TESTS RESULT OUT OF RANGE REFERENCE UNITS LAB 3853-9(LOINC) Nicotine <5 ng/mL Result Comment: INTERPRETIVE INFORMATION: Nicotine and Metabolites, Serum or Plasma, Quantitative Methodology: Quantitative Liquid Chromatography-Tandem Mass Spectrometry Positive cutoff: 5 ng/mL For medical purposes only; not valid for [...] the cutoff to be reported as positive. This test was developed and its performance characteristics determined by [facility]. It has not been cleared or approved by the US Food and Drug Administration. This test was performed in a CLIA certified laboratory and is intended for clinical purposes. Performed By: [facility] [address] [place], [place] [id number] Adhesion Tester: Trevor Machado MD, PhD CLIA Number: [id number] [facility] 15412-0([facility]) Cotinine <5 ng/mL Performed By: #### NI+ME ### # [facility] ([facility]) ([id number]) [address] [place] [address] CANNABINOIDS Collected: 11:07 AM Status: F Source: [facility] TYPE CODE TESTS RESULT OUT OF RANGE REFERENCE UNITS LAB 8170-3(LOINC) Cannabinoids 39 ng/mL Result Comment: INTERPRETIVE INFORMATION: THC Metabolite, Serum or Plasma, Quantitative Methodology: Quantitative Liquid Chromatography-Tandem Mass Spectrometry. Positive cutoff: 5 ng/mL For medical purposes only; not valid for forensic use. The drug analyte detected in this assay, 9-carboxy THC, is a metabolite of ccqdq-5-azazrioaohkoputfmaas (THC). Detection of 9-carboxy THC suggests use of, or exposure to, a product containing THC. This test cannot distinguish between prescribed or non-prescribed forms of THC, nor can it distinguish between active or passive use. The plasma half-life for 9-carboxy THC metabolite is estimated to range from 4-12 hours. This test was developed and its performance characteristics determined by [facility]. It has not been cleared or approved by the US Food and Drug Administration. This test was performed in a CLIA certified laboratory and is intended for clinical purposes. Performed By: [facility] [address] [place] [address] Adhesion Tester: Trevor Machado MD, PhD CLIA Number: [id number] Performed By: #### 8170-3 ## ## [facility] (JANEE) ([id number]) [address] [place] [address] FREEZE CROSSMATCH Collected: 12:00 AM Status: F Source: [facility] Order Comment: Test performe d at: [facility] Histocompatibility and Immunogenetics Laboratory [facility], [address]th [address] [place] [address] TYPE CODE TESTS RESULT OUT OF RANGE REFERENCE UNITS LAB HLFXM FREEZE CROSSMATCH Frozen Sample Performed By: #### HLFXM ### # ANTHONY Dunbar ([id number]) HLA LAB ([facility]) [address] [place] [address] CNPN Observed: 08/23/2024 12:00 AM Status: COMPLETED Source: [facility] Telephone ([facility]) THOM CHAPIN ([id number]) 1970 M Date Time Provider Department 08/23/24 RON CORONADO [facility] During your visit today, [...] there is something else comparable. Pt has [place] Medicare. ALLYSSA Padilla Mark D, MD 08/23/2024 [...] mouth two times a day. - Insulin Rosie, Disposable, (PEN NEEDLE) 32 gauge x 5/32" Give with each insulin administration once in [...] hour prior to sexual activity - Insulin Rosie, Disposable, (PEN NEEDLE) 32 gauge x 5/32" Inject 1 Each subcutaneously every 24 hours. Give with each insulin administration. - Insulin Rosie, Disposable, (UNIFINE PENTIPS PLUS) 31 gauge x 3/16" USE TWICE DAILY DIRECTED FOR INSULIN - Blood-Glucose Sensor (DEXCOM G6 SENSOR) ricco 10 Each as directed. Apply a new [...] daily. - NOVOFINE AUTOCOVER 30 gauge x 1/3" ndle - Insulin Syringe-Needle U-100 (BD LO-DOSE MICRO-FINE IV) 0.3 mL 28 x 1/2" syrg Inject 1 Each subcutaneously daily at [...] [D56.0] 03/01/2014 ESRD (end stage renal disease) ([facility]) [N18.6] 01/08/2016 S/P transmetatarsal amputation of foot, right (*08/17/2019 Atherosclerosis of capitan grande band artery of extremity w*12/24/2022 Secondary hyperparathyroidism of renal origin (*12/24/2022 Encounter Status:Closed by PENNY CANDELARIO on 08/23/24 HLA PRA CLASS I AB ID, CLASS II AB SCREEN Collected: 08/09/2024 12:00 AM Status: F Source: [facility] Order Comment: Test performe d at: [facility] Histocompatibility and Immunogenetics Laboratory [facility], [address]th Floor [address] [place] [address] TYPE CODE TESTS RESULT OUT OF RANGE REFERENCE UNITS LAB 63003-8(LOINC) HLA-A+B+C Ab LAB HLA2S HLA CLASS II AB SCREEN,FC LAB HLARES HLA RESULTS See Attached Performed By: #### [id number] 2AB #### ANTHONY Dunbar ([id number]) HLA LAB ([facility]) [address] [place] [address] CNPN Observed: 07/06/2024 12:00 AM Status: COMPLETED Source: [facility] THOM CHAPIN ([id number]) 1970 M Date Time Provider Department 07/06/24 RON CORONADO [facility] During your visit today, we recorded the [...] mouth two times a day. - Insulin Rosie, Disposable, (PEN NEEDLE) 32 gauge x 5/32" Give with each insulin administration once in [...] hour prior to sexual activity - Insulin Rosie, Disposable, (PEN NEEDLE) 32 gauge x 5/32" Inject 1 Each subcutaneously every 24 hours. Give with each insulin administration. - Insulin Rosie, Disposable, (UNIFINE PENTIPS PLUS) 31 gauge x 3/16" USE TWICE DAILY DIRECTED FOR INSULIN - Blood-Glucose Sensor (DEXCOM G6 SENSOR) ricco 10 Each as directed. Apply a new [...] daily. - NOVOFINE AUTOCOVER 30 gauge x 1/3" ndle - Insulin Syringe-Needle U-100 (BD LO-DOSE MICRO-FINE IV) 0.3 mL 28 x 1/2" syrg Inject 1 Each subcutaneously daily at [...] amputation of foot, right (*08/17/2019 Atherosclerosis of capitan grande band artery of extremity w*12/24/2022 Secondary hyperparathyroidism of renal origin (*12/24/2022 Encounter Status:Closed by PENNY CANDELARIO on 07/06/24 COMP METAB 2000 PNL SERPL Collected: 10:32 AM Status: F Source: [facility] Order Comment: Specimen Type : BLOOD SPECIMEN Ordering Facility: [facility] Address: [address], [place] [id number] TYPE CODE TESTS RESULT OUT OF RANGE REFERENCE UNITS LAB 2885-2(LOINC) Prot SerPl-mCnc 7.3 6.3-8.0 g/dL LAB 1751-7(LOINC) Albumin SerPl-mCnc 4.2 3.9-4.9 g/dL LAB 74911-9(LOINC) Calcium SerPl-mCnc 9.2 8.5-10.2 mg/dL LAB 1975-2(LOINC) Bilirub SerPl-mCnc 0.6 0.2-1.3 mg/dL LAB 6768-6(LOINC) ALP SerPl-cCnc 108 38-113 U/L LAB 1920-8(LOINC) AST SerPl-cCnc 31 14-40 U/L LAB 1742-6(LOINC) ALT SerPl-cCnc 24 10-54 U/L LAB 2345-7(LOINC) Glucose SerPl-mCnc 117 High 74-99 mg/dL Result Comment: The [place] Diabetes Association (ADA) provides guidance for cutoff [...] Standards of Medical Care in Diabetes 2016, [place] Diabetes Association. Diabetes Care. 2016.39(Suppl 1). LAB 3094-0(LOINC) BUN SerPl-mCnc 34 High 9-24 mg/ dL LAB 2160-0(LOINC) Creat SerPl-mCnc 8.20 High 0.73-1.22 mg/dL LAB 2951-2(LOINC) Sodium SerPl-sCnc 140 136-144 mmol/L LAB 2823-3(LOINC) Potassium SerPl-sCnc 4.9 3.7-5.1 mmol/L LAB 2075-0(LOINC) Chloride SerPl-sCnc 96 Low 98-107 mmol/L LAB 2027-(LOINC) CO2 SerPl-sCnc 32 High 22-30 mmo l/L LAB 16521-2(LOINC) Anion Gap SerPl-sCnc 12 8-15 mmol/L LAB 85491-8(LOINC) Creatinine + eGFR Pnl SerPlBld 7 Low >=60 mL/min/1 .73m??? Result Comment: Estimated Gl omerular Filtration Rate (eGFR) is calculated using the 2020 CKD-EPI creatinine equation. This equation utilizes serum creatinine, sex, and age as parameters. The creatinine assay has traceable calibration to isotope dilution-mass spectrometry. Refer to KDIGO guidelines for clinical interpretation. In patients with unstable renal function, e.g. those with acute kidney injury, the eGFR may not accurately reflect actual GFR. Performed By: #### 08891-8, 94265-3 #### [facility] CLIA [id number] [address] [place] [address] [place] LIPID 1996 PNL SERPL Collected: 025 10:32 AM Status: F Source: [facility] Order Comment: Specimen Type : BLOOD SPECIMEN Ordering Facility: [facility] Address: [address] [place] [address] TYPE CODE TESTS RESULT OUT OF RANGE REFERENCE UNITS LAB 3-3(LOINC) Cholest SerPl-mCnc 95 <200 mg/dL Result Comment: <200 mg/dL, Desirable 200-239 mg/dL, Borderline high >239 mg/dL, High LAB 2571-8(LOINC) Trigl SerPl-mCnc 49 <150 mg/dL Result Comment: <150 mg/dL, Normal 150-199 mg/dL, Borderline high 200-499 mg/dL, High >499 mg/dL, Very high LAB 2085-9(LOINC) HDLc SerPl-mCnc 47 >39 mg/dL Result Comment: 40-59 mg/dL, Acceptable >59 mg/dL, High: Negative risk factor for coronary heart disease <40 mg/dL, Low: Positive risk factor for coronary heart disease LAB 29528-4(LOINC) NonHDLc SerPl-mCnc 48 <130 mg/dL Result Comment: <130 mg/dL, Optimal 130-159 mg/dL, Near optimal/above optimal 160-189 mg/dL, Borderline high 190-219 mg/dL, High >219 mg/dL, Very high Secondary prevention optimal non HDL Cholesterol levels are recommended to be <100 mg/dL LAB FT FASTING TIME 10 hrs LAB 35801-1(LOINC) VLDLc SerPl Calc-mCnc 10 <30 mg/dL LAB 9830-1(LOINC) Cholest/HDLc SerPl 2.02 <5.10 LAB 2089-1(LOINC) LDLc SerPl-mCnc 38 <100 mg/dL Result Comment: <100 mg/dL, Optimal 100-129 mg/dL, Near optimal/above optimal 130-159 mg/dL, Borderline high 160-189 mg/dL, High >189 mg/dL, Very high Secondary prevention optimal LDL Cholesterol levels are recommended to be < 70 mg/dL LAB 31889-6(LOINC) LDLc/HDLc SerPl 0.81 <2.54 Result Comment: Reference: 1. National Cholesterol Education Program ATP III Guideline At-A-Glance Quick Desk Reference: National Heart, Lung, and Blood [place]. National Institutes of Health. 2001: NIH Publication No. 01-3305. 2. An International Atherosclerosis Society position paper: global recommendations for the management of dyslipidemia: executive summary, Atherosclerosis. 2014: 232(2):410-413. Performed By: #### 78945-9, 63882-8 #### [facility] CLIA [id number] [address] [place] [address] [place] DEPRECATED HGB A1C BLD Collected: 07/03 10:32 AM Status: F Source: [facility] Order Comment: Specimen Type : BLOOD SPECIMEN Ordering Facility: [facility] Address: [address] [place] [address] TYPE CODE TESTS RESULT OUT OF RANGE REFERENCE UNITS LAB 4548-4([facility]) HbA1c MFr Bld 5.8 High 4.3-5.6 % Result Comment: [place] Natasha betes Association guidelines indicate that patients with HgbA1c in the range 5.7-6.4% are at increased risk for development of diabetes, and intervention by lifestyle modification may be beneficial. HgbA1c greater or equal to 6.5% is considered diagnostic of diabetes. LAB 32661-9([facility]) Est. average glucose Bld gHb Est-mCnc 120 mg/dL Result Comment: eAG: (Estima marleny average glucose) is a calculated value from HgbA1c and is textiles sales representative of the average blood glucose level in the last 2-3 month period. Performed By: #### 55786-5 # ### [facility] CLIA [id number] [address] [place] [address] STATES OF [facility] CBC W AUTO DIFF BLD Collected: 07/03/2024 10:32 AM S tatus: F Source: [facility] Order Comment: Specimen Type : BLOOD SPECIMEN Ordering Facility: [facility] Address: [address] [place] [address] TYPE CODE TESTS RESULT OUT OF RANGE REFERENCE UNITS LAB 6690-2(INC) WBC # Bld Auto 4.80 3.70-11.00 k/uL LAB 789-8(INC) RBC # Bld Auto 4.70 4.20-6.00 m/ uL LAB 718-7(INC) Hgb Bld-mCnc 11.4 Low 13.0-17.0 g/dL LAB 4544-3(INC) Hct VFr Bld Auto 37.8 Low 39.0-51.0 % LAB 787-2(LOINC) MCV RBC Auto 80.4 80.0-100.0 fL LAB 785-6(LOINC) MCH RBC Qn Auto 24.3 Low 26.0-34.0 p g LAB 786-4(LOINC) MCHC RBC Auto-mCnc 30.2 Low 30.5-36.0 g/dL LAB 80994-6(LOINC) RDW RBC-Rto 18.7 High 11.5-15.0 % LAB 777-3(LOINC) Platelet # Bld Auto 144 Low 150-400 k/uL LAB 08490-9(LOINC) PMV Bld Auto 11.3 9.0-12.7 fL LAB 770-8(LOINC) Neutrophils/leuk NFr Bld Auto 60.0 % LAB 751-8(LOINC) Neutrophils # Bld Auto 2.88 1.45-7.50 k/uL LAB 736-9(LOINC) Lymphocytes/leuk NFr Bld Auto 22.9 % LAB 731-0(LOINC) Lymphocytes # Bld Auto 1.10 1.00-4.00 k/uL LAB 5905-5(LOINC) Monocytes/leuk NFr Bld Auto 11.3 % LAB 742-7(LOINC) Monocytes # Bld Auto 0.54 <0.87 k/uL LAB 713-8(LOINC) Eosinophil/leuk NFr Bld Auto 4.8 % LAB 711-2(LOINC) Eosinophil # Bld Auto 0.23 <0.46 k/uL LAB 706-2(LOINC) Basophils/leuk NFr Bld Auto 0.8 % LAB 704-7(LOINC) Basophils # Bld Auto 0.04 <0.11 k/uL LAB 52304-2(LOINC) Imm Granulocytes/aye k NFr Bld Auto 0.2 % LAB 03693-0(LOINC) Imm Granulocytes # Bld Auto <0.03 <0.10 k/uL LAB 49446-4(LOINC) nRBC/100 WBC Bld-Rto 0.0 /100 WBC LAB 771-6(LOINC) nRBC # Bld Auto <0.01 <0.01 k/u L LAB 61666-2(LOINC) Differential method Bld Auto Performed By: #### 49065-4 # ### [facility] CLIA [id number] [address] [place] [address] OF [facility] CNOV Observed: 06/22/2024 10:40 AM Status: COMPLETED Source: [facility] Office Visit (FAMPWS) THOM CHAPIN ([id number]) 1970 M Date Time Provider Department 06/22/24 [...] every Friday, Friday and Friday. Follows with [facility] Dr. Wells every 6 months. On current [...] 7 days a week. 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 HTN: Is checking BP [...] having hypoglycemic episodes. Following with Dr. Servin, Education Nurse twice a month. Follows with Dr. Roth and Dr. Shafer for eye exams. Past medical history, appointments, medications, allergies reviewed. Previous Medical History PAST MEDICAL HISTORY Diagnosis Date Cellulitis right foot CKD (chronic kidney disease) stage 4, GFR 15-29 ml/min ([facility]) Depression 2009 DIABETES TYPE I W RENAL MANIF-UNCONTRLLD 01/21/2005 Dialysis: AS[facility] Castro Diabetic nephropathy ([facility]) 02/22/2010 GLAUCOMA NOS 01/21/2005 Hyperlipidemia HYPERTENSION NOS 01/21/2005 Microcytic anemia NSTEMI (non-ST elevated myocardial infarction) ([facility]) Proteinuria 01/21/2005 PVD (peripheral vascular disease) ([facility]) Suicide attempt ([facility]) November 2009 Hosp [facility]> Previous Surgical History PAST SURGICAL HISTORY [...] by mouth two times a day. Insulin Rosie, Disposable, (PEN NEEDLE) 32 gauge x 5/32" Give with each insulin administration once in [...] by mouth two times a day. Insulin Rosie, Disposable, (PEN NEEDLE) 32 gauge x 5/32" Inject 1 Each subcutaneously every 24 hours. Give with each insulin administration. Insulin Rosie, Disposable, (UNIFINE PENTIPS PLUS) 31 gauge x 3/16" USE TWICE DAILY DIRECTED FOR INSULIN Blood-Glucose Sensor (DEXCOM G6 SENSOR) ricco 10 Each as directed. Apply a new [...] at bedtime. NOVOFINE AUTOCOVER 30 gauge x 1/3" ndle Insulin Syringe-Needle U-100 (BD LO-DOSE MICRO-FINE IV) 0.3 mL 28 x 1/2" syrg Inject 1 Each subcutaneously daily at [...] kg (146 lb 13.2 oz) BMI 18.85 kg/m? General Appearance: Well appearing, alert, in no [...] on 07/30/2019 HbA1C due on 02/19/2024 Covid-19 Vaccine() due on 06/22/2025 LDL Cholesterol due on [...] chronic kidney disease on chronic dialysis (HCC) - ICD9: 250.41, 585.9, V45.11, ICD10: E10.22, N18.6, Z99.2 (primary diagnosis) Check labs Continue current medications; may consider decrease in Basaglar if A1c low. Continue with [facility] and dialysis 2. Essential hypertension - ICD9: 401.9, ICD10: I10 - Controlled - Continue current medications - Recommend home blood pressure monitoring, to bring results to next visit - Encouraged sodium restriction, DASH or Mediterranean diet - Recommend regular aerobic exercise 3. Depression, unspecified depression type - ICD9: 311, ICD10: F32.A stable 4. ESRD (end stage renal disease) ([facility]) - ICD9: 585.6, ICD10: N18.6 Continue with [facility] and dialysis Monitored with labs 5. Current mild episode of major depressive disorder without prior episode ([facility]) - ICD9: 296.21, ICD10: F32.0 stable - [...] and benefit of weight loss. BMI 18.85 kg/(m2) 8. Anemia, unspecified type - ICD9: 285.9, ICD10: D64.9 Stable Monitored with labs Follow up 6 months. Will notify of lab results. I agree with the Chief Complaint, ROS, and Past Histories independently gathered by the clinical help desk support and the remaining scribed note accurately describes [...] 22, 2024 10:14 AM. Penny Candelario MA Allergies As of Date: 06/22/2024 (No Known Allergies) Date Reviewed: 06/22/2024 Reviewed by: Penny Candelario MA - Fully Assessed Reason for Visit: 6 Month Exam [189] Primary Visit Diagnosis: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) [E10.22, N18.6, Z99.2] Other Visit Diagnoses:Essential hypertension [I10] Depression, unspecified depression type [F32.A] ESRD (end stage renal disease) (HCC) [N18.6] Current mild episode of major depressive disorder without prior episode (HCC) [F32.0] Encounter for screening examination for other mental health and behavioral disorders [Z13.39] Hyperlipidemia, unspecified hyperlipidemia type [E78.5] Anemia, unspecified type [D64.9] Order(s):LIPID PANEL BASIC [SQLIPB] Order #: [id number] FUTURE COMPREHENSIVE METABOLIC PANEL [SQCMP] Order #: [id number] FUTURE HEMOGLOBIN A1C [MWLDA7M] Order #: [id number] FUTURE COMPLETE BLOOD COUNT AND DIFFERENTIAL [SQCBCDIF] Order #: [id number] FUTURE magnesium oxide (MAG-OX) 400 mg (241.3 mg magnesium) tabletTake 1 tablet by mouth two times a day.Disp: 180 tabletRfl: 3 ANXIETY SCREENING [[id number]] Order #: [id number]: 1 Prescriptions as of 06/22/2024 - magnesium oxide (MAG-OX) 400 mg (241.3 [...] mouth two times a day. - Insulin Rosie, Disposable, (PEN NEEDLE) 32 gauge x 5/32" Give with each insulin administration once in [...] hour prior to sexual activity - Insulin Rosie, Disposable, (PEN NEEDLE) 32 gauge x 5/32" Inject 1 Each subcutaneously every 24 hours. Give with each insulin administration. - Insulin Rosie, Disposable, (UNIFINE PENTIPS PLUS) 31 gauge x 3/16" USE TWICE DAILY DIRECTED FOR INSULIN - Blood-Glucose Sensor (DEXCOM G6 SENSOR) ricco 10 Each as directed. Apply a new [...] daily. - NOVOFINE AUTOCOVER 30 gauge x 1/3" ndle - Insulin Syringe-Needle U-100 (BD LO-DOSE MICRO-FINE IV) 0.3 mL 28 x 1/2" syrg Inject 1 Each subcutaneously daily at bedtime. Inject once daily (for Lantus) Dx: Diabetes Type I with renal manifestations . 254.43 - glucagon, human recombinant, (GLUCAGON EMERGENCY) 1 mg injection 1 mg as needed. ADMINISTER FOR LOW BLOOD SUGAR - IF UNCONSCIOUS OR UNABLE TO SWALLOW Problem List As Of Date 06/22/2024 Noted Resolved Type 1 diabetes mellitus with [...] amputation of foot, right (*08/17/2019 Atherosclerosis of capitan grande band artery of extremity w*12/24/2022 Secondary hyperparathyroidism of renal origin (*12/24/2022 Prescriptions ordered this encounter Disp Refills Start End MAGNESIUM OXIDE 400 MG (241.3 MG MAG* 180 * 3 06/22/2024 Route: ORAL Sig: Take 1 tablet by mouth two times a day. Medications Discontinued During This Encounter Prescriptions - latanoprost (XALATAN) 0.005 % ophthalmic solution (Discontinued) Reported on 06/22/2024 - magnesium oxide (MAG-OX) 400 mg (241.3 mg magnesium) tablet (Discontinued) Take 1 tablet by mouth two times a day. Disposition: Return in about 6 months (around 12/20/2024). Follow-up and Disposition History for Encounter Date Provider Department Center 06/22/2024 [id number] CORONADO [facility] Encounter Status:Closed by RON CORONADO on 06/22/24 PROGRESS Observed: 06/22/2024 10:40 AM Status: COMPLETED Source: [facility] ID: [id number] Author: RON CORONADO MD Service: ? Author [...] every Friday, Friday and Friday. Follows with [facility] Dr. Wells every 6 months. On current [...] 7 days a week. 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 HTN: Is checking BP [...] having hypoglycemic episodes. Following with Dr. Servin, Education Nurse twice a month. Follows with Dr. Roth and Dr. Shafer for eye exams. Past medical history, appointments, medications, allergies reviewed. Previous Medical History PAST MEDICAL HISTORY Diagnosis Date Cellulitis right foot CKD (chronic kidney disease) stage 4, GFR 15-29 ml/min ([facility]) Depression 2010 DIABETES TYPE I W RENAL MANIF-UNCONTRLLD 01/21/2005 Dialysis: MWF [facility] Diabetic nephropathy ([facility]) 02/22/2010 GLAUCOMA NOS 01/21/2005 Hyperlipidemia HYPERTENSION NOS 01/21/2005 Microcytic anemia NSTEMI (non-ST elevated myocardial infarction) ([facility]) Proteinuria 01/21/2005 PVD (peripheral vascular disease) ([facility]) Suicide attempt ([facility]) November 2009 [facility]> Previous Surgical History PAST SURGICAL HISTORY [...] by mouth two times a day. Insulin Rosie, Disposable, (PEN NEEDLE) 32 gauge x 5/32" Give with each insulin administration once in [...] by mouth two times a day. Insulin Rosie, Disposable, (PEN NEEDLE) 32 gauge x 5/32" Inject 1 Each subcutaneously every 24 hours. Give with each insulin administration. Insulin Rosie, Disposable, (UNIFINE PENTIPS PLUS) 31 gauge x 3/16" USE TWICE DAILY DIRECTED FOR INSULIN Blood-Glucose Sensor (DEXCOM G6 SENSOR) ricco 10 Each as directed. Apply a new [...] at bedtime. NOVOFINE AUTOCOVER 30 gauge x 1/3" ndle Insulin Syringe-Needle U-100 (BD LO-DOSE MICRO-FINE IV) 0.3 mL 28 x 1/2" syrg Inject 1 Each subcutaneously daily at [...] kg (146 lb 13.2 oz) BMI 18.85 kg/m? General Appearance: Well appearing, alert, in no [...] on 07/30/2019 HbA1C due on 02/19/2024 Covid-19 Vaccine() due on 06/22/2025 LDL Cholesterol due on [...] chronic kidney disease on chronic dialysis (HCC) - ICD9: 250.41, 585.9, V45.11, ICD10: E10.22, N18.6, Z99.2 (primary diagnosis) Check labs Continue current medications; may consider decrease in Basaglar if A1c low. Continue with [facility] and dialysis 2. Essential hypertension - ICD9: 401.9, ICD10: I10 - Controlled - Continue current medications - Recommend home blood pressure monitoring, to bring results to next visit - Encouraged sodium restriction, DASH or Mediterranean diet - Recommend regular aerobic exercise 3. Depression, unspecified depression type - ICD9: 311, ICD10: F32.A stable 4. ESRD (end stage renal disease) ([facility]) - ICD9: 585.6, ICD10: N18.6 Continue with [facility] and dialysis Monitored with labs 5. Current mild episode of major depressive disorder without prior episode ([facility]) - ICD9: 296.21, ICD10: F32.0 stable - [...] and benefit of weight loss. BMI 18.85 kg/(m2) 8. Anemia, unspecified type - ICD9: 285.9, ICD10: D64.9 Stable Monitored with labs Follow up 6 months. Will notify of lab results. I agree with the Chief Complaint, ROS, and Past Histories independently gathered by the clinical help desk support and the remaining scribed note accurately describes [...] 22, 2024 10:14 AM. Penny Candelario MA FREEZE CROSSMATCH Collected: 12:00 AM Status: F Source: [facility] Order Comment: Test performe d at: [facility] Histocompatibility and Immunogenetics Laboratory [facility], 6[facility] Floor [address] [place] [address] 68989Pkko performed at: [facility]ocompatibility [facility] Immunogenetics [facility], 6th [place] [id number] TYPE CODE TESTS RESULT OUT OF RANGE REFERENCE UNITS LAB HLFXM FREEZE CROSSMATCH Frozen Sample Performed By: #### HLFXM ### # ANTHONY YAN S ([id number]) HLA LAB ([facility]) [address] [place] [address] HLA TRANSPLANT ANTIBODY PANEL Collected : 05/10/2024 12:00 AM Status: F Source: [facility] Order Comment: Test performe d at: [facility] Histocompatibility and Immunogenetics Laboratory [facility], [address] [address] TYPE CODE TESTS RESULT OUT OF RANGE REFERENCE UNITS LAB 24116-3(LOINC) HLA-A+B+C Ab LAB 82138-2(LOINC) HLA-DP+DQ+DR Ab LAB HLARES HLA RESULTS See Attached Performed By: #### HLANTI ## ## ANTHONY YAN S ([id number]) HLA LAB ([facility]) [address] [place] [address] HLA TRANSPLANT ANTIBODY PANEL Collected : 04/06/2024 3:48 PM Status: F Source: [facility] Order Comment: Test performe d at: [facility] Histocompatibility and Immunogenetics Laboratory [facility], 6th Floor [address] [place] [id number] TYPE CODE TESTS RESULT OUT OF RANGE REFERENCE UNITS LAB 38177-3(LOINC) HLA-A+B+C Ab LAB 21894-1(LOINC) HLA-DP+DQ+DR Ab LAB HLARES HLA RESULTS See Attached Performed By: #### HLANTI ## ## ANTHONY Dunbar ([id number]) HLA LAB ([facility]) [address] [place], [place] [id number] CNPN Observed: 03/30/2024 12:00 AM Status: COMPLETED Source: [facility] Telephone ([employer]) THOM CHAPIN ([id number]) 1970 M Date Time Provider Department 03/30/24 RON CORONADO [employer] During your visit today, we recorded the following information about you: Shanika Bright RN 03/30/2024 1:42 PM Signed Office of [facility] calling to confirm PCP OV date. Shanika Bright RN Allergies As of Date: 03/30/2024 (No Known Allergies) Date Reviewed: 08/12/2023 Reviewed by: Penny Candelario MA - Fully Assessed Reason for Visit: Patient Question [1477] Prescriptions as of 03/30/2024 - metoprolol tartrate, short acting, (LOPRESSOR) 25 mg tablet Take 1 tablet by mouth two times a day. - Insulin Rosie, Disposable, (PEN NEEDLE) 32 gauge x 5/32" Give with each insulin administration once in [...] mouth two times a day. - Insulin Rosie, Disposable, (PEN NEEDLE) 32 gauge x 5/32" Inject 1 Each subcutaneously every 24 hours. Give with each insulin administration. - hydrALAZINE (APRESOLINE) 100 mg tablet Take 1 tablet by mouth three times a day. - sevelamer carbonate (RENVELA) 800 mg tablet TAKE 1 TABLET BY MOUTH 3 TIMES DAILY *EMERGENCY REFILL* - Insulin Rosie, Disposable, (UNIFINE PENTIPS PLUS) 31 gauge x 3/16" USE TWICE DAILY DIRECTED FOR INSULIN - Blood-Glucose Sensor (DEXCOM G6 SENSOR) ricco 10 Each as directed. Apply a new [...] bedtime. - NOVOFINE AUTOCOVER 30 gauge x 1/3" ndle - Insulin Syringe-Needle U-100 (BD LO-DOSE MICRO-FINE IV) 0.3 mL 28 x 1/2" syrg Inject 1 Each subcutaneously daily at [...] Sinus complaint [R09.89] 04/23/2012 06/16/2019 Alpha 0-thalassemia ([facility]) [D56.0] 03/01/2014 ESRD (end stage renal disease) ([facility]) [N18.6] 01/08/2016 S/P transmetatarsal amputation of foot, right (*08/17/2019 Atherosclerosis of capitan grande band artery of extremity w*12/24/2022 Secondary hyperparathyroidism of renal origin (*12/24/2022 Encounter Status:Closed by SHANIKA BRIGHT on 03/30/24 XR CHEST 2 VIEWS Observed: 03/11/2024 10:20 AM Status: F Source: [facility] Interpreted By: Radha Pham, STUDY: Chest, 2 views. INDICATION: Signs/Symptoms:prekidney recipient transplant evaluation. COMPARISON: None. ACCESSION NUMBER(S): [id number] ORDERING CLINICIAN: ELI QUEZADA FINDINGS: The cardiomediastinal silhouette size is within normal limits. There is no focal consolidation, edema or pneumothorax. No sizeable pleural effusion. IMPRESSION: 1. No acute cardiopulmonary process. MACRO: None. Signed by: Kiara Pham 03/11/2024 8:11 PM Dictation workstation: [id number] ALLERGIES DATE TYPE / CODE NAME / CODE REACTION SEVERITY SOURCE 12/12/2018 DRUG INGREDI/0453478 03(SNOMED CT) CALCIUM Hives [facility] SYSTEMIC/987371 006(SNOMED CT) NO KNOWN ALLERGIES [facility] SYSTEMIC/349195 006(SNOMED CT) NO ACTIVE ALLERGIES [facility] Drug Class/[id number] (SNOMED CT) NO KNOWN ALLERGIES [facility] ENCOUNTERS ADMIT/DISCHARGE ACCOUNT NUMBER ADMITTING ENCOUNTER CLASS LOCATION SOURCE 03/04/2025 [id number] Ambulatory Building:[facility] 02/28/2025/03/04/20 [id number] VIANEY MENDOZA Inpatient Encounter Building:[facility] PF5Clxm: [id number] d: 9081-A [facility] 01/20/2025/01/21/20 25 [id number] Ambulatory Building:[facility] [id number] [facility] 01/20/2025/01/21/20 25 [id number] Ambulatory Building:[facility] 01/20/2025/01/21/20 25 [id number] Ambulatory Building:[facility] 01/13/2025/01/14/20 25 [id number] Ambulatory Building:[facility] 12/31/2024/01/01/20 25 [id number] Ambulatory Building:[facility] 12/23/2024/12/24/19 25 [id number] Ambulatory Building:[facility] 12/14/2024/12/22/19 25 [id number] LAMBERT BROTHERS Inpatient Encounter Building:[facility] [id number]: [id number] d: 9007-A [facility] 12/14/2024/12/15/19 25 [id number] Ambulatory Building:[facility] Dialysis [facility] 12/13/2024/12/14/19 25 [id number] Ambulatory Building:[facility] 12/13/2024/12/14/19 25 [id number] Ambulatory Building:[facility] 12/06/2024/12/10/19 25 [id number] MARIAA JARQUIN Inpatient Encounter Building:[facility] [id number]: [id number] d: 9091-A [facility] 12/06/2024/12/07/19 25 [id number] Emergency Building:[facility] EDRoom: [id number] : [address] [place] [address] 12/06/2024/12/07/19 25 [id number] Ambulatory Building:[facility] 12/03/2024/12/04/19 25 [id number] Ambulatory Building:[facility] 12/02/2024/12/03/19 25 [id number] Ambulatory Building:[facility] [id number] [facility] 12/02/2024/12/03/19 25 [id number] Ambulatory Building:[facility] 11/30/2024/12/01/19 25 [id number] Ambulatory Building:[facility] 11/29/2024/11/30/19 25 [id number] Ambulatory Building:[facility] 11/24/2024/11/28/19 25 [id number] KOBE STOREY Inpatient Encounter Building:[facility] DM4Aqzo: [id number] d: 9038-A [facility] 11/24/2024/11/25/19 25 [id number] Ambulatory Building:[facility] 11/24/2024/11/25/19 25 [id number] Ambulatory Building:[facility] 11/23/2024/11/24/19 25 [id number] Ambulatory Building:[facility] 11/22/2024/11/23/19 25 [id number] Ambulatory Building:[facility] 11/22/2024/11/23/19 25 [id number] Ambulatory Building:[facility] 11/19/2024/11/20/19 25 [id number] Ambulatory Building:[facility] 11/19/2024/11/20/19 25 [id number] Ambulatory Building:[facility] 11/19/2024/11/20/19 25 [id number] Ambulatory Building:[facility] 11/19/2024/11/20/19 25 [id number] Ambulatory Building:[facility] 11/18/2024/11/19/19 25 [id number] Ambulatory Building:[facility] 11/17/2024/11/18/19 25 [id number] Ambulatory Building:[facility] 11/17/2024/11/18/19 25 [id number] Ambulatory Building:[facility] 11/17/2024/11/18/19 25 [id number] Ambulatory Building:[facility] 11/15/2024/11/16/19 25 [id number] Ambulatory Building:[facility] 11/12/2024/11/13/19 25 [id number] Ambulatory Building:[facility] 11/10/2024/11/11/19 25 [id number] Ambulatory Building:[facility] 11/08/2024/11/09/19 25 [id number] Ambulatory Building:[facility] 11/06/2024/11/07/19 25 [id number] Ambulatory Building:[facility] 11/06/2024/11/07/19 25 [id number] Ambulatory Building:[facility] 11/04/2024/11/05/19 25 [id number] Ambulatory Building:[facility] 11/03/2024/11/04/19 25 [id number] Ambulatory Building:[facility] 11/03/2024/11/04/19 25 [id number] Ambulatory Building:[facility] 11/02/2024/11/03/19 25 [id number] Ambulatory Building:[id number] 11/01/2024/11/02/19 25 [id number] Ambulatory Building:[facility] 10/29/2024/10/30/19 [id number] Ambulatory Building:[facility] Dialysis [facility] 10/27/2024/10/28/19 [id number] Ambulatory Building:[facility] 10/26/2024/11/17/19 [id number] Ambulatory Building:[facility] 10/23/2024/10/24/19 [id number] Ambulatory Building:[facility] Dialysis [facility] 10/15/2024/10/22/19 [id number] LAMBERT BROTHERS Inpatient Encounter Building:[facility] [id number]: [id number] d: 9019-A [facility] 10/15/2024 [id number] LAMBERT BROTHERS Inpatient Encounter Building:[facility] 10/07/2024/10/08/19 [id number] [facility] 09/09/2024/09/10/19 [id number] Ambulatory Building:[facility] 09/09/2024/09/10/19 [id number] Ambulatory Building:[facility]5FDR [facility] 09/09/2024/09/10/19 [id number] Ambulatory Building:[facility] 09/09/2024/09/10/19 [id number] Ambulatory Building:[facility] 09/09/2024/09/10/19 [id number] Ambulatory Building:[facility] 07/03/2024/07/03/19 [id number] [facility] 06/22/2024/06/22/19 [id number] [facility]STEPHIE [facility] 04/06/2024/04/06/20 24 [id number] Ambulatory Building:[facility] 03/11/2024/03/11/20 24 [id number] Ambulatory Building:[facility] [id number] [facility] 03/11/2024/03/11/20 [id number] Ambulatory Building:[facility] [id number] [facility] PAYERS ENCOUNTER GUARANTOR PAYER SUBSCRIBER SOURCE 03/04/2025 THOM VILLEGAS: [address]SW[place], [place] [address]Bhw: () Primary Insurance:[employer] PLANSPolicy Number: [id number] Date:2023-06-09 THOM BRUNSONCarlos: [id number]ZNDEX[place], [place] [address]Ruk: (HP) [facility] 02/28/2025 THOM BRUNSONCarlos: [address]AZ[place]IDK, [place] [address]Dxn: (HP) Primary Insurance:[employer] PLANSPolicy Number: [id number] Date:2023-06-09 THOM BRUNSONCarlos: [id number]AIY[place]Z, [place] [address]Rec: (HP) [facility] 02/28/2025 Secondary Insurance:MEDICAIDPoli cy Number: [id number] Date:2018-05-09 THOM CHAPINRICHARDSON: [id number]DUS[place], [place] [address]Ajh: (HP) [facility] 01/20/2025 THOM CHAPINRICHARDSON: [address]FKVYGVT, [place] [address]Tpw: (HP) Primary Insurance:MEDICAIDPoli cy Number: [id number] Date:2018-05-09 THOM CHAPINRICHARDSON: [id number]ZYIXOZT, [place] [address]Hmq: (HP) [facility] 01/20/2025 Secondary Insurance:[facility] PLANSPolicy Number: [id number] Date:2023-06-09 THOM VILLEGAS: [id number], [place] [address]Rfw: (HP) [facility] 01/20/2025 THOM VILLEGAS: [address]QDWBJSK, [place] [address]Nxg: (HP) Primary Insurance:[facility] PLANSPolicy Number: [id number] Date:2023-06-09 THOM VILLEGAS: [id number]SEFLYU, [place] [address]Ais: (HP) [facility] 01/20/2025 Secondary Insurance:MEDICAIDPoli cy Number: [id number] Date:2018-05-09 THOM VILLEGAS: [id number]JMBLQCG, [place] [address]Lnk: (HP) [facility] 01/20/2025 THOM VILLEGAS: [address]BDSTOSR, [place] [address]Pzh: (HP) Primary Insurance:[facility] PLANSPolicy Number: [id number] Date:2023-06-09 THOM VILLEGAS: [id number]RUMKSNC, [place] [address]Vxx: (HP) [facility] 01/20/2025 Secondary Insurance:MEDICAIDPoli cy Number: [id number] Date:2018-05-09 THOM VILLEGAS: [id number]TELFLWZ, [place] [address]Qqv: (HP) [facility] 01/13/2025 THOM BRUNSONCarlos: [address]NTKPFFG, [place] [address]Sdw: () Primary Insurance:[facility] PLANSPolicy Number: [id number] Date:2023-06-09 THOM VILLEGAS: [id number]RBZABEP, [place] [address]Fgu: () [facility] 01/13/2025 Secondary Insurance:MEDICAIDPoli cy Number: [id number] Date:2018-05-09 THOM VILLEGAS: [id number]BNTYLRL, [place] [address]Oaz: () [facility] 12/31/2024 THOM VILLEGAS: [address]CVCLWEB, [place] [address]Mso: () Primary Insurance:[facility] PLANSPolicy Number: [id number] Date:2023-06-09 THOM VILLEGAS: [id number]UECPPRH, [place] [address]Jap: () [facility] 12/31/2024 Secondary Insurance:MEDICAIDPoli cy Number: [id number] Date:2018-05-09 THOM VILLEGAS: [id number]CAFCQZD, [place] [address]Nmp: () [facility] 12/23/2024 THOM VILLEGAS: [address]PEGANTN, [place] [address]Kpm: () Primary Insurance:[facility] PLANSPolicy Number: [id number] Date:2023-06-09 THOM VILLEGAS: [id number]UGAAGBU, [place] [address]Hva: () [facility] 12/23/2024 Secondary Insurance:MEDICAIDPoli cy Number: [id number] Date:2018-05-09 THOM VILLEGAS: [id number]AOCRCIN, [place] [address]Rxx: (HP) [facility] 12/14/2024 THOM BRUNSONB: [address]ATADZ[place], [place] [address]Pzc: (HP) Primary Insurance:[facility] PLANSPolicy Number: [id number] Date:2023-06-09 THOM VILLEGAS: [id number]WHMDNWZ, [place] [address]Sbj: (HP) [facility] 12/14/2024 Secondary Insurance:MEDICAIDPoli cy Number: [id number] Date:2018-05-09 THOM VILLEGAS: [id number]YDTTGEY, [place] [address]Wcl: (HP) [facility] 12/14/2024 THOM VILLEGAS: [address]4YDKFKYH, [place] [address]Bts: (HP) Primary Insurance:[facility] PLANSPolicy Number: [id number] Date:2023-06-09 THOM VILLEGAS: [id number]YUSIPWL, [place] [address]Qdx: (HP) [facility] 12/14/2024 Secondary Insurance:MEDICAIDPoli cy Number: [id number] Date:2018-05-09 THOM VILLEGAS: [id number]YBOVHWS, [place] [address]Kji: (HP) [facility] 12/13/2024 THOM VILLEGAS: [address]2SQZCEON, [place] [address]Xtt: () Primary Insurance:[facility] PLANSPolicy Number: [id number] Date:2023-06-09 THOM VILLEGAS: [id number]RWTGIJO, [place] [address]Beu: () [facility] 12/13/2024 Secondary Insurance:MEDICAIDPoli cy Number: [id number] Date:2018-05-09 THOM VILLEGAS: [id number]VJTNTEE, [place] [address]Hbg: () [facility] 12/13/2024 THOM VILLEGAS: [address]ZITHWNK, [place] [address]Unj: () Primary Insurance:[facility] PLANSPolicy Number: [id number] Date:2023-06-09 THOM VILLEGAS: [id number]PCWABGN, [place] [address]Lbg: () [facility] 12/13/2024 Secondary Insurance:MEDICAIDPoli cy Number: [id number] Date:2018-05-09 THOM VILLEGAS: [id number]8BTAYDSB, [place] [address]Hyy: () [facility] 12/06/2024 THOM VILLEGAS: [id number] [address]3NZASYEX, [place] [address]Asy: () Primary Insurance:[facility] PLANSPolicy Number: [id number] Date:2023-06-09 THOM VILLEGAS: [id number]BERJWSJ, [place] [address]Dgs: () [facility] 12/06/2024 Secondary Insurance:MEDICAIDPoli cy Number: [id number] Date:2018-05-09 THOM BRUNSONB: [id number]QTUIGVW, [place] [address]Byy: (HP) [facility] 12/06/2024 THOM BRUNSONB: [address]LROALDW, [place] [address]Adl: (HP) Primary Insurance:[facility] PLANSPolicy Number: [id number] Date:2023-06-09 THOM BRUNSONB: [id number] [place]HBJTZQK, [place] [address] [facility] 12/06/2024 Secondary Insurance:MEDICAIDPoli cy Number: [id number] Date:2018-05-09 THOM BRUNSONB: [id number]NDAHEQM, [place] [address] [facility] 12/06/2024 THOM BRUNSONB: [id number], [place] [address]Rke: (HP) Primary Insurance:[facility] PLANSPolicy Number: [id number] Date:2023-06-09 THOM BRUNSONB: [id number] [id number], [place] [address] [facility] 12/06/2024 Secondary Insurance:MEDICAIDPoli cy Number: [id number] Date:2018-05-09 THOM BRUNSONB: [id number] [id number], [place] [address] [facility] [facility] THOM BRUNSONB: [address]LQSDOPU, [place] [address]Fxq: (HP) Primary Insurance[facility] PLANSPolicy Number: [id number] Date:2023-06-09 THOM BRUNSONB: [id number]NRLYNGC, [place] [address]Acr: () [facility] 12/03/2024 Secondary Insurance:MEDICAIDPoli cy Number: [id number] Date:2018-05-09 THOM BRUNSONB: [id number]7KJDYQLT, [place] [address]Dwu: (HP) [facility] 12/02/2024 THOM BRUNSONB: [address]9SPKVUWR, [place] [address]Vje: (HP) Primary Insurance:MEDICAIDPoli cy Number: [id number] Date:2018-05-09 THOM BRUNSONB: [id number]QLSRBJM, [place] [address]Cua: () [facility] 12/02/2024 Secondary Insurance:[facility] HEALTH PLANSPolicy Number: [id number] Date:2023-06-09 THOM BRUNSONB: [id number] T6JLVYKAJ, [place] [address]Vat: () [facility] 12/02/2024 THOM BRUNSONB: [address] A0QULVTFX, [place] [address]Zex: () Primary Insurance:WELLCARE HEALTH PLANSPolicy Number: [id number] Date:2023-06-09 THOM BRUNSONB: [id number]1DCIJXKI, [place] [address]Wfz: () [facility] 12/02/2024 Secondary Insurance:MEDICAIDPoli cy Number: [id number] Date:2018-05-09 THOM BRUNSONB: [id number]4PISYSXC, [place] [address]Tvr: (HP) [facility] 11/30/2024 THOM CHAPINRICHARDSON: [address] O5VCTIZJP, [place] [address]Ywq: (HP) Primary Insurance:WELLCARE HEALTH PLANSPolicy Number: [id number] Date:2023-06-09 THOM CHAPINRICHARDSON: [id number]OWNBGCR, [place] [address] [facility] 11/30/2024 Secondary Insurance:MEDICAIDPoli cy Number: [id number] Date:2018-05-09 THOM CHAPINRICHARDSON: [id number] Z3HJKNOZV, [place] [address] [facility] 11/29/2024 THOM CHAPINRICHARDSON: [address] M4LNMWKAY, [place] [address]Tll: (HP) [facility] Insurance:[facility] PLANSPolicy Number: [id number] Date:2023-06-09 THOM CHAPINRICHARDSON: [id number]6DHUJZES, [place] [address]Cet: (HP) [facility] 11/29/2024 Secondary Insurance:MEDICAIDPoli cy Number: [id number] Date:2018-05-09 THOM CHAPINRICHARDSON: [id number]7NEUEHKO, [place] [address]Fkj: (HP) [facility] 11/24/2024 THOM CHAPINRICHARDSON: [address] E3MJVAFMO, [place] [address]Srw: (HP) Primary Insurance:WELLCARE HEALTH PLANSPolicy Number: [id number] Date:2023-06-09 THOM CHAPINRICHARDSON: [id number]1XUGBCOD, [place] [address]Usq: (HP) [facility] 11/24/2024 Secondary Insurance:MEDICAIDPoli cy Number: [id number] Date:2018-05-09 THOM BRUNSONB: [id number] A4GUZJVTG, [place] [address]Wvi: () [facility] 11/24/2024 THOM BRUNSONB: [address] D7VLJTKJG, [place] [address]Bvn: () Primary Insurance:[facility] PLANSPolicy Number: [id number] Date:2023-06-09 THOM BRUNSONB: [id number] M5TTYDQHR, [place] [address]Lql: () [facility] 11/24/2024 Secondary Insurance:MEDICAIDPoli cy Number: [id number] Date:2018-05-09 THOM BRUNSONB: [id number] L5GTIBZEN, [place] [address]Zok: () [facility] 11/24/2024 THOM BRUNSONB: [address] R1RMTMFVM, [place] [address]Ccv: () Primary Insurance:SunPodsCARE HEALTH PLANSPolicy Number: [id number] Date:2023-06-09 THOM BRUNSONCarlos: [id number] Z9VKLKJVA, [place] [address]Izv: () [facility] 11/24/2024 Secondary Insurance:MEDICAIDPoli cy Number: [id number] Date:2018-05-09 THOM BRUNSONB: [id number] P9HRRDITU, [place] [address]Eei: () [facility] 11/23/2024 THOM CHAPINRICHARDSON: [address] R5CPCCSLT, [place] [address]Kyj: (HP) Primary Insurance:WELLCARE HEALTH PLANSPolicy Number: [id number] Date:2023-06-09 THOM CHAPINB: [id number] X9DRNUIYQ, [place] [address]Fne: (HP) [facility] 11/23/2024 Secondary Insurance:MEDICAIDPoli cy Number: [id number] Date:2018-05-09 THOM CHAPINRICHARDSON: [id number] C2RBYWCIK, [place] [address]Wyv: (HP) [facility] 11/22/2024 THOM CHAPINRICHARDSON: [address] D8DSHEPUM, [place] [address]Fsc: (HP) Primary Insurance:[facility] PLANSPolicy Number: [id number] Date:2023-06-09 THOM CHAPINRICHARDSON: [id number] M2NTIUCHZ, [place] [address]Kka: (HP) [facility] 11/22/2024 Secondary Insurance:MEDICAIDPoli cy Number: [id number] Date:2018-05-09 THOM CHAPINRICHARDSON: [id number] D4WRKLKGI, [place] [address]Xrk: (HP) [facility] 11/22/2024 THOM CHAPINRICHARDSON: [address] T1ATSFCIV, [place] [address]Sqh: (HP) Primary Insurance:[facility] PLANSPolicy Number: [id number] Date:2023-06-09 THOM CHAPINRICHARDSON: [id number] F4NUDTTDA, [place] [address] [facility] 11/22/2024 Secondary Insurance:MEDICAIDPoli cy Number: [id number] Date:2018-05-09 THOM BRUNSONCarlos: [id number]5MSZDMAW, [place] [address] [facility] 11/19/2024 THOM BRUNSONCarlos: [address] U2HWWHZLY, [place] [address]Frb: (HP) Primary Insurance:[facility] PLANSPolicy Number: [id number] Date:2023-06-09 THOM BRUNSONCarlos: [id number] G8ZZPLOBN, [place] [address]Sja: (HP) [facility] 11/19/2024 Secondary Insurance:MEDICAIDPoli cy Number: [id number] Date:2018-05-09 THOM CHAPINRICHARDSON: [id number] A1VNQEJKJ, [place] [address]Aem: (HP) [facility] 11/19/2024 THOM CHAPINRICHARDSON: [address] W8BIYRODC, [place] [address]Yix: (HP) Primary Insurance:[facility] PLANSPolicy Number: [id number] Date:2023-06-09 THOM CHAPINRICHARDSON: [id number] B0TTGYKIO, [place] [address]Sdb: (HP) [facility] 11/19/2024 Secondary Insurance:MEDICAIDPoli cy Number: [id number] Date:2018-05-09 THOM CHAPINRICHARDSON: [id number] V7FVBBXTZ, [place] [address]Wiz: (HP) [facility] 11/19/2024 THOM CHAPINRICHARDSON: [address] F0SLJDBHC, [place] [address]Xrv: () Primary Insurance:WE[facility]CARE HEALTH PLANSPolicy Number: [id number] Date:2023-06-09 THOM BRUNSONB: [id number] A9SLBMJAX, [place] [address]Vqi: () [facility] 11/19/2024 Secondary Insurance:MEDICAIDPoli cy Number: [id number] Date:2018-05-09 THOM CHAPINRICHARDSON: [id number] O6PVOTEJV, [place] [address]Zhl: () [facility] 11/19/2024 THOM CHAPINB: [address] W0VQQHLKU, [place] [address]Daw: () Primary Insurance:[facility] PLANSPolicy Number: [id number] Date:2023-06-09 THOM BRUNSONB: [id number] U8ROIQNUJ, [place] [address]Cxy: () [facility] 11/19/2024 Secondary Insurance:MEDICAIDPoli cy Number: [id number] Date:2018-05-09 THOM CHAPINRICHARDSON: [id number] L0LDCAQCM, [place] [address]Qok: () [facility] 11/18/2024 THOM CHAPINB: [address] W6IBGXPPK, [place] [address]Ido: (HP) Primary Insurance:WELLCARE HEALTH PLANSPolicy Number: [id number] Date:2023-06-09 THOM CHAPINB: [id number] E5VKOSFEQ, [place] [address]Otc: () [facility] 11/18/2024 Secondary Insurance:MEDICAIDPoli cy Number: [id number] Date:2018-05-09 THOM CHAPINRICHARDSON: [id number] M1BVAAZPB, [place] [address]Cgg: (HP) [facility] 11/17/2024 THOM CHAPINB: [address] N2INUVVZD, [place] [address]Jcb: (HP) Primary Insurance:[facility] PLANSPolicy Number: [id number] Date:2023-06-09 THOM CHAPINRICHARDSON: [id number] J6GTGFLGK, [place] [address]Ggg: () [facility] 11/17/2024 Secondary Insurance:MEDICAIDPoli cy Number: [id number] Date:2018-05-09 THOM CHAPINB: [id number] Y8LYYPGKC, [place] [address]Ahi: () [facility] 11/17/2024 THOM CHAPINRICHARDSON: [address] T2ECGNHHN, [place] [address]Diy: () Primary Insurance:[facility]ANSPolicy Number: [id number] Date:2023-06-09 THOM CHAPINRICHARDSON: [id number] Q6AUDTRIW, [place] [address]Ple: () [facility] 11/17/2024 Secondary Insurance:MEDICAIDPoli cy Number: [id number] Date:2018-05-09 THOM CHAPINRICHARDSON: [id number] D1BHYDUNG, [place] [address]Qzr: () [facility] 11/17/2024 THOM CHAPINRICHARDSON: [address] Y8ZQLMJPO, [place] [address]Una: (HP) Primary Insurance:[facility]CARE HEALTH PLANSPolicy Number: [id number] Date:2023-06-09 THOM BRUNSONB: [id number] U9WLDYPWW, [place] [address] [facility] 11/17/2024 Secondary Insurance:MEDICAIDPoli cy Number: [id number] Date:2018-05-09 THOM BRUNSONB: [id number] E0QZNNRQL, [place] [address] [facility] 11/15/2024 THOM CHAPINB: [id number] [address] F9MWHYBXY, [place] [address]Drl: (HP) Primary Insurance:[facility] PLANSPolicy Number: [id number] Date:2023-06-09 THOM CHAPINB: [id number] Z3OPBUKCF, [place] [address] [facility] 11/15/2024 Secondary Insurance:MEDICAIDPoli cy Number: [id number] Date:2018-05-09 THOM CHAPINB: [id number] O2KBBQMVV, [place] [address] [facility] 11/12/2024 THOM BRUNSONCarlos: [address] N8RZDTLFK, [place] [address]Avu: (HP) Primary Insurance:WELLCARE HEALTH PLANSPolicy Number: [id number] Date:2023-06-09 THOM CHAPINRICHARDSON: [id number] L0ALFQGMR, [place] [address] [facility] 11/12/2024 Secondary Insurance:MEDICAIDPoli cy Number: [id number] Date:2018-05-09 THOM CHAPINB: [id number] J1AOXTODM, [place] [address] [facility] 11/10/2024 THOM BRUNSONB: [address] W2DQWPIVY, [place] [address]Omt: (HP) Primary Insurance:WELLCARE HEALTH PLANSPolicy Number: [id number] Date:2023-06-09 THOM BRUNSONB: [id number] D7AGSGYAZ, [place] [address] [facility] 11/10/2024 Secondary Insurance:MEDICAIDPoli cy Number: [id number] Date:2018-05-09 THOM BRUNSONB: [id number] F6NGZNIQK, [place] [address] [facility] 11/08/2024 THOM BRUNSONB: [address] I8KLDMMBR, [place] [address]Zai: (HP) Primary Insurance:WELLCARE HEALTH PLANSPolicy Number: [id number] Date:2023-06-09 THOM BRUNSONB: [id number] M3CSSKYWH, [place] [address] [facility] 11/08/2024 Secondary Insurance:MEDICAIDPoli cy Number: [id number] Date:2018-05-09 THOM BRUNSONB: [id number] A0VJSDQDG, [place] [address] [facility] 11/06/2024 THOM BRUNSONB: [address] Z3WDABPDW, [place] [address]Xkx: (HP) Primary Insurance:WELLCARE HEALTH PLANSPolicy Number: [id number] Date:2023-06-09 THOM BRUNSONB: [id number] H3NDCZVXK, [place] [address]Swv: (HP) [facility] 11/06/2024 Secondary Insurance:MEDICAIDPoli cy Number: [id number] Date:2018-05-09 THOM BRUNSONB: [id number] R1QQBOEBX, [place] [address]Jrn: () [facility] 11/06/2024 THOM BRUNSONB: [address] Y7MZTCVAI, [place] [address]Sal: () Primary Insurance:[facility] PLANSPolicy Number: [id number] Date:2023-06-09 THOM BRUNSONB: [id number] A4EDXOEBY, [place] [address]Tqq: () [facility] 11/06/2024 Secondary Insurance:MEDICAIDPoli cy Number: [id number] Date:2018-05-09 THOM BRUNSONCarlos: [id number] Z9CYOATLP, [place] [address]Ykl: () [facility] 11/04/2024 THOM BRUNSONB: [address] T1TOPNZXE, [place] [address]Qbo: (HP) Primary Insurance:[facility] PLANSPolicy Number: [id number] Date:2023-06-09 THOM BRUNSONCarlos: [id number] Z5MXMGXWK, [place] [address]Ezr: (HP) [facility] 11/04/2024 Secondary Insurance:MEDICAIDPoli cy Number: [id number] Date:2018-05-09 THOM CHAPINB: [id number] T4LXAVHFI, [place] [address]Ruk: () [facility] 11/03/2024 THOM CHAPINB: [address] B3JHFPCIU, [place] [address]Kai: () Primary Insurance:[facility] PLANSPolicy Number: [id number] Date:2023-06-09 THOM BRUNSONB: [id number] V5JALEVRA, [place] [address]Pkg: () [facility] 11/03/2024 Secondary Insurance:MEDICAIDPoli cy Number: [id number] Date:2018-05-09 THOM BRUNSONB: [id number] H1HXUGSNB, [place] [address]Byd: () [facility] 11/03/2024 THOM BRUNSONB: [address] U2TROKBFJ, [place] [address]Aop: () Primary Insurance:[facility] PLANSPolicy Number: [id number] Date:2023-06-09 THOM BRUNSONB: [id number] V2DEIJOKJ, [place] [address]Bgu: () [facility] 11/03/2024 Secondary Insurance:MEDICAIDPoli cy Number: [id number] Date:2018-05-09 THOM BRUNSONB: [id number] O0WLVODPR, [place] [address]Mdz: () [facility] 11/02/2024 THOM BRUNSONB: [address] M3SYNNYYF, [place] [address]Wlr: () Primary Insurance:MEDICAIDPoli cy Number: [id number] Date:2018-05-09 THOM BRUNSONB: [id number] B9WBTMAWC, [place] [address]Nfu: () [facility] 11/02/2024 Secondary Insurance:[facility] HEALTH PLANSPolicy Number: [id number] Date:2023-06-09 THOM BRUNSONCarlos: [id number] [address] S8SYAVGSE, [place] [address]Yjh: (HP) [facility] 11/01/2024 THOM BRUNSONB: [address] T4UCTLZKF, [place] [address]Uby: (HP) Primary Insurance:[facility] PLANSPolicy Number: [id number] Date:2023-06-09 THOM CHAPINB: [id number] E0QLYXWLW, [place] [address]Gze: (HP) [facility] 11/01/2024 Secondary Insurance:MEDICAIDPoli cy Number: [id number] Date:2018-05-09 THOM CHAPINRICHARDSON: [id number] W8NYDFZYQ, [place] [address]Jjf: (HP) [facility] 10/29/2024 THOM CHAPINRICHARDSON: [address] J3PGHZEEI, [place] [address]Kgh: (HP) Primary Insurance:[facility] PLANSPolicy Number: [id number] Date:2023-06-09 THOM CHAPINRICHARDSON: [id number] J1UWIBOTS, [place] [address]Myp: (HP) [facility] 10/29/2024 Secondary Insurance:MEDICAIDPoli cy Number: [id number] Date:2018-05-09 THOM CHAPINRICHARDSON: [id number] S1YKLVMQN, [place] [address]Jml: (HP) [facility] 10/27/2024 THOM CHAPINB: [address] Q0CCPGYIT, [place] [address]Use: () Primary Insurance:[facility] HEALTH PLANSPolicy Number: [id number] Date:2023-06-09 THOM VILLEGAS: [id number] G2GKNPDUB, [place] [address]Xat: (HP) [facility] 10/27/2024 Secondary Insurance:MEDICAIDPoli cy Number: [id number] Date:2018-05-09 THOM VILLEGAS: [id number] D4DCIFNJO, [place] [address]Ktv: () [facility] 10/26/2024 THOM BRUNSONCarlos: [address] B9QKBEDMU, [place] [address]Pgb: () Primary Insurance:[facility] PLANSPolicy Number: [id number] Date:2023-06-09 THOM VILLEGAS: [id number] U9QMLTWVO, [place] [address]Wci: () [facility] 10/26/2024 Secondary Insurance:MEDICAIDPoli cy Number: [id number] Date:2018-05-09 THOM VILLEGAS: [id number] Z1UMTVMAN, [place] [address]Jjd: () [facility] 10/23/2024 THOM VILLEGAS: [id number] [address] F3EJKJXTJ, [place] [address]Vcb: () Primary Insurance:[facility]ANSPolicy Number: [id number] Date:2023-06-09 THOM VILLEGAS: [id number] V8BVLRRIP, [place] [address]Pge: () [facility] 10/23/2024 Secondary Insurance:MEDICAIDPoli cy Number: [id number] Date:2018-05-09 THOM BRUNSONCarlos: [id number] X3EAHGWSM, [place] [address]Qsa: (HP) [facility] 10/15/2024 THOM CHAPINB: [address] S0NJQJPJY, [place] [address]Mob: (HP) Primary Insurance:[facility] HEALTH PLANSPolicy Number: [id number] Date:2023-06-09 THOM CHAPINRICHARDSON: [id number] E5WTBAQFK, [place] [address]Pkf: (HP) [facility] 10/15/2024 Secondary Insurance:MEDICAIDPoli cy Number: [id number] Date:2018-05-09 THOM CHAPINRICHARDSON: [id number] G4RWIMSJI, [place] [address]Qdq: () [facility] 10/15/2024 THMO CHAPINB: [address] M5QEJYZHP, [place] [address]Nvo: (HP) Primary Insurance:[facility] PLANSPolicy Number: [id number] Date:2023-06-09 THOM CHAPINRICHARDSON: [id number] B8PNVHPWK, [place] [address]Kua: (HP) [facility] 10/15/2024 Secondary Insurance:MEDICAIDPoli cy Number: [id number] Date:2018-05-09 THOM CHAPINB: [id number] M1PBCJKLA, [place] [address]Orf: () [facility] 10/07/2024 THOM CHAPINB: [address] H8KNAIRHJ, [place] [address]Jqx: (HP) Primary Insurance:[facility] HEALTH PLANSPolicy Number: [id number] Date:2023-06-09 THOM VILLEGAS: [id number] F2AQNKAUB, [place] [address]Mwg: (HP) [facility] 10/07/2024 Secondary Insurance:MEDICAIDPoli cy Number: [id number] Date:2018-05-09 THOM VILLEGAS: [id number] J5UGCBWNO, [place] [address]Agt: (HP) [facility] 09/09/2024 THOM BRUNSONB: [address] U4PEDUTGM, [place] [address]Xkg: (HP) Primary Insurance:[facility] HEALTH PLANSPolicy Number: [id number] Date:2023-06-09 THOM VILLEGAS: [id number] Z6TQXIBCL, [place] [address]Wwm: (HP) [facility] 09/09/2024 Secondary Insurance:MEDICAIDPoli cy Number: [id number] Date:2018-05-09 THOM VILLEGAS: [id number] W5MBKUVZA, [place] [address]Edd: (HP) [facility] 09/09/2024 THOM BRUNSONCarlos: [address] A1PKZUMAP, [place] [address]Xfk: (HP) Primary Insurance:[facility] HEALTH PLANSPolicy Number: [id number] Date:2023-06-09 THOM BRUNSONCarlos: [id number] R6VOROKIO, [place] [address]Gco: () [facility] 09/09/2024 Secondary Insurance:MEDICAIDPoli cy Number: [id number] Date:2018-05-09 THOM BRUNSONB: [id number] Q9SPJFJMD, [place] [address]Jfu: () [facility] 09/09/2024 THOM BRUNSONB: [address] O2QSICCPP, [place] [address]Gzl: () Primary Insurance:[facility] PLANSPolicy Number: [id number] Date:2023-06-09 THOM BRUNSONCarlos: [id number] E0ZKFUJPO, [place] [address]Axs: () [facility] 09/09/2024 Secondary Insurance:MEDICAIDPoli cy Number: [id number] Date:2018-05-09 THOM VILLEGAS: [id number] [place], [place] [address]Jgr: () [facility] 09/09/2024 THOM BRUNSONCarlos: [address] [id number], [place] [address]Orn: () Primary Insurance:[employer] HE[employer] PLANSPolicy Number: [id number] Date:2023-06-09 THOM CHAPINRICHARDSON: [id number] [place], [place] [address]Gqw: () [facility] 09/09/2024 Secondary Insurance:MEDICAIDPoli cy Number: [id number] Date:2018-05-09 THOM CHAPINB: [id number] [id number], [place] [address]Kxa: () [facility] 09/09/2024 THOM VILLEGAS: [id number] [place], [place] [address]Hmc: () Primary Insurance:[facility] [facility] PLANSPolicy Number: [id number] Date:2023-06-09 THOM VILLEGAS: [id number] [place], [place] [address]Oue: () [facility] 09/09/2024 Secondary Insurance:MEDICAIDPoli cy Number: [id number] Date:2018-05-09 THOM VILLEGAS: [id number] [place]DFXFSGW, [place] [address]Nfm: () [facility] 07/03/2024 Primary Insurance:[facility] SNPPolicy Number: [id number] Date:1808-87-59Htlj Name:Tulio VILLEGAS: [id number] [id number], [place] [address] [facility] 07/03/2024 Secondary Insurance:[place] MEDICAIDPolicy Number: [id number] Date:1527-26-12Hsgg Name:Shlomo VILLEGAS: [id number] [place]Q[place], [place] [address] [facility] 06/22/2024 Primary Insurance:[facility] BY [facility] SNPPolicy Number: [id number] Date:5333-87-31Lsaw Name:Tulio VILLEGAS: [id number] [place]AI, [place] [address] [facility] 06/22/2024 Secondary Insurance:[place] MEDICAIDPolicy Number: [id number] Date:2351-55-22Rant Name:Shlomo VILLEGAS: [id number] [place], [place] [address] [facility] 04/06/2024 THOM VILLEGAS: [address] [place]7GSDQMAV, [place] [address]Avq: (HP) Primary Insurance:MEDICAIDPoli cy Number: [id number] Date:2018-05-09 THOM VILLEGAS: [id number] [place]8PB[place]KZ[place], [place] [address]Bjr: (HP) [facility] 04/06/2024 Secondary Insurance:[employer] PLANSPolicy Number: [id number] Date:2023-06-09 THOM VILLEGAS: [id number] [place]FX[place]FY, [place] [address]Nfw: (HP) [facility] 03/11/2024 THOM BRUNSONB: [address] [place], [place] [address]Kkt: (HP) Primary Insurance:[employer] PLANSPolicy Number: [id number] Date:2023-06-09 THOM VILLEGAS: [id number] [place]8DZMFMJT, [place] [address]Zjs: (HP) [facility] 03/11/2024 Secondary Insurance:MEDICAIDPoli cy Number: [id number] Date:2018-05-09 THOM VILLEGAS: [id number] [place], [place] [address]Wrb: (HP) [facility] 03/11/2024 THOM BRUNSONB: [address]5KZGLEBW, [place] [address]Ynv: (HP) Primary Insurance:[employer] PLANSPolicy Number: [id number] Date:2023-06-09 THOM VILLEGAS: [id number] [address]Kow: () [facility] 03/11/2024 Secondary Insurance:MEDICAIDPoli cy Number: [id number] Date:2018-05-09 THOM VILLEGAS: [id number] [address]Xrw: () [facility]
[2025-03-07 10:57] VITALS: BP 141/77; PULSE 76; RESP 16; TEMP 36.7; O2SAT 100; BMI 17.6
[2025-03-07 11:00] VITALS: BP 145/69; PULSE 81; RESP 14; O2SAT 98
--- NOTE | 2025-03-07 11:34 | RAD_ITS ---
PROCEDURE: KNEE 4 OR MORE VIEWS 03/07/2025 REASON FOR EXAM: TRAUMA TECHNIQUE: Procedure Code: RADKN Modality: DX Procedure: KNEE 4 OR MORE VIEWS Left knee four views COMPARISON: None FINDINGS: There is no fracture or dislocation identified. The joint spaces are maintained. There is no visible effusion. Mineralization is normal. Atherosclerotic calcifications are noted. RAD/Knee 4 or More Views IMPRESSION: No fracture or dislocation is identified. Reading Location: [facility]
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
[2025-03-07 13:00] VITALS: BP 139/76; PULSE 62; RESP 14; O2SAT 98
[2025-03-07 15:02] VITALS: BP 141/89; PULSE 70; RESP 18; TEMP 36.5; O2SAT 100
[2025-03-07 16:14] VITALS: BP 135/89; PULSE 82; RESP 14; TEMP 36.6; O2SAT 100
== END 2025-03-07 16:15 | disposition home or self-care (01) ==
PROVIDERS: Emergency Provider Emergency Medicine; PCP Family Medicine; Visit Provider Emergency Medicine
DX: S80.212A Abrasion, left knee, initial encounter (principal); I12.0 Hypertensive chronic kidney disease with stage 5 chronic kidney disease or end stage renal disease; N18.6 End stage renal disease; E11.22 Type 2 diabetes mellitus with diabetic chronic kidney disease; E11.40 Type 2 diabetes mellitus with diabetic neuropathy, unspecified; E11.51 Type 2 diabetes mellitus with diabetic peripheral angiopathy without gangrene; Z79.4 Long term (current) use of insulin; S80.02XA Contusion of left knee, initial encounter; V19.88XA Pedal cyclist (driver) (passenger) injured in other specified transport accidents, initial encounter; Y93.55 Activity, bike riding; Z94.0 Kidney transplant status; I25.2 Old myocardial infarction; I25.10 Atherosclerotic heart disease of native coronary artery without angina pectoris; D63.1 Anemia in chronic kidney disease; Z99.2 Dependence on renal dialysis; F32.A Depression, unspecified; H40.9 Unspecified glaucoma; E78.5 Hyperlipidemia, unspecified; Z95.5 Presence of coronary angioplasty implant and graft; Z79.82 Long term (current) use of aspirin; Z79.899 Other long term (current) drug therapy
CPT/HCPCS: 73564; 99282; A4216